=== PATIENT | female | born 1955 | race Caucasian/White ===

== ENCOUNTER 2018-09-15 12:15 | Outpatient (REF) | payer MEDICARE, SELFPAY ==
[2018-09-15 22:08] LABS: HCT 43.6 % (36.0-46.0); HGB 13.5 g/dL (12.0-15.5); Mean Corpuscular Hemoglobin 25.2 pg (27.0-33.0); Mean Corpuscular Volume 81.5 fL (80-95); Mean Platelet Volume 11.9 fL (8.0-11.0); Platelet Count 274 x1000/uL (130-400); RBC 5.35 m/cumm (4.00-5.20); RBC Distribution Width 18.2 % (11.7-14.6); White Blood Cell Count 7.17 k/cumm (4.4-10.8)
[2018-09-15 22:43] LABS: Folate 5.9 ng/mL (8.6-20.0); TSH (W/Ref FT4) 0.37 uIU/mL (0.358-3.74); Vitamin B12 381 pg/mL (193-986)
== END 2018-09-15 12:35 ==
LOC: NCHCN 12:15
PROVIDERS: PCP Family Medicine; Visit Provider Family Medicine
DX: I10 Essential (primary) hypertension (principal); G62.9 Polyneuropathy, unspecified
CPT/HCPCS: 85027; 82607; 82746; 84443

== ENCOUNTER 2019-10-20 21:06 | Outpatient (REF) | payer MEDICARE, SELFPAY ==
[2019-10-20 20:44] LABS: Hemoglobin A1C 6.1 % (3.8-5.6)
[2019-10-20 20:46] LABS: ALT 20 U/L (14-59); AST 19 U/L (15-37); Albumin 3.9 g/dL (3.4-5.0); Alkaline Phosphatase 91 U/L (46-116); Anion Gap 8.1 mmol/L (3-11); BUN 15 mg/dL (7-18); Bilirubin, Total 0.6 mg/dL (0.2-1.0); CO2 27.9 mmol/L (21.0-32.0); CREATININE 1.01 mg/dL (0.55-1.02); Calcium 9.7 mg/dL (8.5-10.1); Calculated LDL 241 mg/dL (<100); Chloride 106 mmol/L (98-107); Cholesterol 308 mg/dL (<200); Estimated GFR 55.36 (mL/min/1.73m2); Glucose 101 mg/dL (74-106); HDL Cholesterol 31 mg/dL (40-60); Potassium 5.6 mmol/L (3.5-5.1); Sodium 142 mmol/L (136-145); Total Protein 7.4 g/dL (6.4-8.2); Triglyceride 182 mg/dL (<150)
== END 2019-10-20 21:26 ==
LOC: NCHCN 21:06
PROVIDERS: PCP Family Medicine; Visit Provider Family Medicine
DX: I10 Essential (primary) hypertension (principal); R73.03 Prediabetes; G62.9 Polyneuropathy, unspecified; E78.5 Hyperlipidemia, unspecified
CPT/HCPCS: 80053; 80061; 83036

== ENCOUNTER 2019-11-02 09:53 | Outpatient (REF) | payer MEDICARE, SELFPAY ==
[2019-11-02 21:50] LABS: Potassium 4.3 mmol/L (3.5-5.1)
== END 2019-11-02 10:13 ==
LOC: NCHCN 09:53
PROVIDERS: PCP Family Medicine; Visit Provider Family Medicine
DX: E87.5 Hyperkalemia (principal)
CPT/HCPCS: 84132

== ENCOUNTER 2019-12-21 18:18 | Outpatient (REF) | payer OTHER, SELFPAY ==
[2019-12-21 21:28] LABS: ALT 19 U/L (14-59); Calculated LDL 73 mg/dL (<100); Cholesterol 140 mg/dL (<200); HDL Cholesterol 34 mg/dL (40-60); Triglyceride 166 mg/dL (<150)
== END 2019-12-21 18:38 ==
LOC: NCHCN 18:18
PROVIDERS: PCP Family Medicine; Visit Provider Family Medicine
DX: I25.10 Atherosclerotic heart disease of native coronary artery without angina pectoris (principal)
CPT/HCPCS: 80061; 84460

== ENCOUNTER 2020-03-21 12:21 | Outpatient (REF) | payer OTHER, SELFPAY ==
--- NOTE | 2020-03-21 10:00 | PAPFT_PTH ---
PAT[facility]: Mel[facility] Hodge [id number] AGE/SX: 64/F ROOM: RE03/21/[address]: Elizabeth Dsouza : 1955 BED: DIS: 03/21/2020 SPEC #: [id number] RECD: 03/22/20 12:55 STATUS: MARÍA RERicardo #: [id number] CARMEN: 03/21/20 10:[address]: Elizabeth Dsouza DEPT: [facility] Cytology RECD BY: Kalpana Crespo Tissues: 1 - CX/ENDOCX FOR PAP SMEARS Procedures: PAP THIN PREP/UVM Screening HPV DNA PROBE Comments: [id number]
== END 2020-03-21 12:41 ==
LOC: NCHCN 12:21
PROVIDERS: PCP Family Medicine; Visit Provider Family Medicine
DX: Z12.4 Encounter for screening for malignant neoplasm of cervix (principal); R87.612 Low grade squamous intraepithelial lesion on cytologic smear of cervix (LGSIL); Z11.51 Encounter for screening for human papillomavirus (HPV); R87.810 Cervical high risk human papillomavirus (HPV) DNA test positive
CPT/HCPCS: 88142; 87624

== ENCOUNTER 2020-07-28 15:56 | Outpatient (REF) | payer OTHER, SELFPAY ==
[2020-07-28 20:37] LABS: HCT 29.4 % (36.0-46.0); HGB 8.5 g/dL (11.2-15.7); MCH 23.7 pg (27.0-33.0); MCHC 28.9 % (32.0-36.0); MCV 81.9 fL (80-95); MPV 11.3 fL (8.0-11.0); Platelet Count 205 10^3/uL (130-400); RBC 3.59 10^6/uL (3.93-5.22); RDW 16.6 % (11.7-14.6); WBC 5.74 10^3/uL (4.4-10.8)
[2020-07-28 21:02] LABS: Anion Gap 6.6 mmol/L (3-11); BUN 13 mg/dL (7-18); CO2 28.4 mmol/L (21.0-32.0); CREATININE 1.4 mg/dL (0.55-1.02); Calcium 8.8 mg/dL (8.5-10.1); Chloride 108 mmol/L (98-107); Estimated GFR 37.86 (mL/min/1.73m2); Glucose 94 mg/dL (74-106); Potassium 4.3 mmol/L (3.5-5.1); Sodium 143 mmol/L (136-145); TSH 0.72 uIU/mL (0.36-3.74)
== END 2020-07-28 15:57 | disposition home or self-care (01) ==
LOC: NCHCN 15:56
PROVIDERS: PCP Family Medicine; Visit Provider Family Medicine
DX: I10 Essential (primary) hypertension (principal); I25.10 Atherosclerotic heart disease of native coronary artery without angina pectoris; R73.03 Prediabetes; E88.81 Metabolic syndrome and other insulin resistance
CPT/HCPCS: 80048; 85027; 84443

== ENCOUNTER 2020-08-04 20:03 | Outpatient (REF) | payer OTHER, SELFPAY ==
[2020-08-04 18:41] LABS: Bilirubin Negative (Negative); Blood Negative (Negative); Clarity Clear (Clear); Glucose Negative (Negative); Ketones Negative (Negative); Leukocyte Esterase Negative (Negative); Nitrite Negative (Negative); Specific Gravity 1.025 (1.005-1.025)
[2020-08-04 18:51] LABS: Iron 17 ug/dL (50-170); Total Iron Binding Capacity 348 ug/dL (250-450); Transferrin Sat 5 % (15-50)
== END 2020-08-04 20:04 | disposition home or self-care (01) ==
LOC: NCHCN 20:03
PROVIDERS: PCP Family Medicine; Visit Provider Family Medicine
DX: D50.9 Iron deficiency anemia, unspecified (principal); N18.31 Chronic kidney disease, stage 3a; R82.998 Other abnormal findings in urine
CPT/HCPCS: 81003; 81015; 83540; 83550

== ENCOUNTER 2020-08-30 17:17 | Outpatient (REF) | payer OTHER, SELFPAY ==
[2020-08-30 16:25] LABS: Iron 18 ug/dL (50-170); Total Iron Binding Capacity 391 ug/dL (250-450); Transferrin Sat 5 % (15-50)
== END 2020-08-30 17:18 | disposition home or self-care (01) ==
LOC: NCHCN 17:17
PROVIDERS: PCP Family Medicine; Visit Provider Family Medicine
DX: D50.9 Iron deficiency anemia, unspecified (principal)
CPT/HCPCS: 83540; 83550

== ENCOUNTER 2020-09-05 16:40 | Outpatient (REF) | payer OTHER, SELFPAY ==
[2020-09-06 12:09] LABS: IgA 179 mg/dL (85-499); Interpretation (See Note); Tissue Transglutaminase IgA <1.2 U/mL (<4.0)
== END 2020-09-05 16:41 | disposition home or self-care (01) ==
LOC: NCHCN 16:40
PROVIDERS: PCP Family Medicine; Visit Provider Family Medicine
DX: D50.9 Iron deficiency anemia, unspecified (principal)
CPT/HCPCS: 82784; 83516

== ENCOUNTER 2020-09-06 16:02 | Outpatient (REF) | payer OTHER, SELFPAY ==
[2020-09-12 13:07] LABS: Helicobacter pylori Ag, Feces Negative (Negative)
== END 2020-09-06 16:03 | disposition home or self-care (01) ==
LOC: NCHCN 16:02
PROVIDERS: PCP Family Medicine; Visit Provider Family Medicine
DX: D50.9 Iron deficiency anemia, unspecified (principal)
CPT/HCPCS: 87338

== ENCOUNTER 2020-10-27 20:34 | Outpatient (REF) | payer OTHER, SELFPAY ==
[2020-10-27 21:45] LABS: Iron 16 ug/dL (50-170); Total Iron Binding Capacity 359 ug/dL (250-450); Transferrin Sat 4 % (15-50)
== END 2020-10-27 20:35 | disposition home or self-care (01) ==
LOC: NCHCN 20:34
PROVIDERS: PCP Family Medicine; Visit Provider Family Medicine
DX: R53.83 Other fatigue (principal); D50.9 Iron deficiency anemia, unspecified
CPT/HCPCS: 83540; 83550

== ENCOUNTER 2020-12-07 12:37 | Outpatient (REF) | payer OTHER, SELFPAY ==
[2020-12-07 21:12] LABS: HGB 13.6 g/dL (11.2-15.7); MCH 28.8 pg (27.0-33.0); MCHC 30.2 % (32.0-36.0); MCV 95.1 fL (80-95); MPV 10.5 fL (8.0-11.0); Platelet Count 168 10^3/uL (130-400); RBC 4.73 10^6/uL (3.93-5.22); RDW 24.7 % (11.7-14.6); RDW-SD 85.3 fL; WBC 5.86 10^3/uL (4.4-10.8)
[2020-12-07 21:21] LABS: Iron 73 ug/dL (50-170); Total Iron Binding Capacity 277 ug/dL (250-450)
[2020-12-07 21:36] LABS: Ferritin 237 ng/mL (8-252)
== END 2020-12-07 12:38 | disposition home or self-care (01) ==
LOC: NCHCN 12:37
PROVIDERS: PCP Family Medicine; Visit Provider Family Medicine
DX: D50.9 Iron deficiency anemia, unspecified (principal)
CPT/HCPCS: 85027; 82728; 83540; 83550

== ENCOUNTER 2021-05-03 17:34 | Outpatient (REF) | payer MEDICARE, SELFPAY ==
[2021-05-05 11:55] LABS: COVID-19 RT-PCR UVMMC Result Negative (Negative)
== END 2021-05-03 17:35 | disposition home or self-care (01) ==
LOC: NCHCN 17:34
PROVIDERS: PCP Family Medicine; Visit Provider Registered Nurse
DX: Z20.822 Contact with and (suspected) exposure to COVID-19 (principal); J06.9 Acute upper respiratory infection, unspecified
CPT/HCPCS: U0003; U0005

== ENCOUNTER 2021-06-06 09:49 | Outpatient (REF) | payer MEDICARE, SELFPAY ==
[2021-06-06 14:52] LABS: Abs Immature Grans 0.04 10^3/uL (0.0-0.06); Absolute Basophil Count 0.03 10^3/uL (0.0-0.2); Absolute Eosinophil Count 0.14 10^3/uL (0.0-0.7); Absolute Lymphocyte Count 1.08 10^3/uL (1.2-3.4); Absolute Monocyte Count 0.32 10^3/uL (0.1-0.8); Basophils % 0.6; Eosinophils % 2.6; HCT 30.7 % (36.0-46.0); Immature Grans % 0.7; MCH 26.9 pg (27.0-33.0); MCHC 29.3 % (32.0-36.0); MCV 91.6 fL (80-95); MPV 10.9 fL (8.0-11.0); Monocytes % 5.9; Neutrophils % 70.2; Nucleated RBC 0 %; Platelet Count 189 10^3/uL (130-400); RBC 3.35 10^6/uL (3.93-5.22); RDW 15.2 % (11.7-14.6); RDW-SD 50.9 fL; Reticulocyte 2.2 % (0.5-2.4); WBC 5.41 10^3/uL (4.4-10.8)
[2021-06-06 15:00] LABS: Iron 21 ug/dL (50-170); Total Iron Binding Capacity 376 ug/dL (250-450); Transferrin Sat 6 % (15-50)
[2021-06-06 15:28] LABS: ALT 19 U/L (14-59); AST 10 U/L (15-37); Albumin 3.9 g/dL (3.4-5.0); Alkaline Phosphatase 75 U/L (46-116); Anion Gap 9.4 mmol/L (3-11); BUN 15 mg/dL (7-18); Bilirubin, Total 0.8 mg/dL (0.2-1.0); CO2 25.6 mmol/L (21.0-32.0); CREATININE 1.4 mg/dL (0.55-1.02); Calcium 8.9 mg/dL (8.5-10.1); Chloride 107 mmol/L (98-107); Estimated GFR 37.86 (mL/min/1.73m2); Ferritin 7 ng/mL (8-252); Glucose 106 mg/dL (74-106); Potassium 4.2 mmol/L (3.5-5.1); Sodium 142 mmol/L (136-145); Total Protein 6.8 g/dL (6.4-8.2)
[2021-06-06 15:38] LABS: Diff Comment Diff Reviewed
[2021-06-06 15:39] LABS: Anisocytosis 2+
== END 2021-06-06 09:50 | disposition home or self-care (01) ==
LOC: NCHCN 09:49
PROVIDERS: PCP Family Medicine; Visit Provider Family Medicine
DX: D50.9 Iron deficiency anemia, unspecified (principal); I73.9 Peripheral vascular disease, unspecified
CPT/HCPCS: 80053; 82728; 83540; 83550; 85025; 85045

== ENCOUNTER 2021-07-17 11:06 | Outpatient (REF) | payer MEDICARE, SELFPAY ==
[2021-07-17 14:25] LABS: HCT 38.1 % (36.0-46.0); MCH 25.8 pg (27.0-33.0); MCHC 28.9 % (32.0-36.0); MCV 89 fL (80-95); MPV 10.9 fL (8.0-11.0); Platelet Count 255 10^3/uL (130-400); RBC 4.26 10^6/uL (3.93-5.22); RDW 19.3 % (11.7-14.6); RDW-SD 63.2 fL; WBC 5.31 10^3/uL (4.4-10.8)
[2021-07-17 14:36] LABS: Iron 24 ug/dL (50-170); Total Iron Binding Capacity 381 ug/dL (250-450); Transferrin Sat 6 % (15-50)
== END 2021-07-17 11:07 | disposition home or self-care (01) ==
LOC: NCHCN 11:06
PROVIDERS: PCP Family Medicine; Visit Provider Family Medicine
DX: D64.9 Anemia, unspecified (principal)
CPT/HCPCS: 85027; 83540; 83550

== ENCOUNTER 2021-12-31 18:33 | Outpatient (REF) | payer MEDICARE, SELFPAY ==
[2021-12-31 15:14] LABS: HCT 29.8 % (36.0-46.0); HGB 8.4 g/dL (11.2-15.7); MCH 23.5 pg (27.0-33.0); MCHC 28.2 % (32.0-36.0); MCV 83 fL (80-95); Platelet Count 198 10^3/uL (130-400); RBC 3.58 10^6/uL (3.93-5.22); RDW 18.2 % (11.7-14.6); RDW-SD 53.7 fL; WBC 5.56 10^3/uL (4.4-10.8)
[2021-12-31 15:25] LABS: Anion Gap 7.3 mmol/L (3-11); BUN 13 mg/dL (7-18); CO2 25.7 mmol/L (21.0-32.0); CREATININE 1.6 mg/dL (0.55-1.02); Calcium 9.2 mg/dL (8.5-10.1); Chloride 107 mmol/L (98-107); Estimated GFR 35.57 (mL/min/1.73m2); Glucose 97 mg/dL (74-106); Potassium 4.2 mmol/L (3.5-5.1); Sodium 140 mmol/L (136-145)
[2021-12-31 16:29] LABS: Iron 22 ug/dL (50-170); Total Iron Binding Capacity 405 ug/dL (250-450); Transferrin Sat 5 % (15-50)
== END 2021-12-31 18:34 | disposition home or self-care (01) ==
LOC: NCHCN 18:33
PROVIDERS: PCP Family Medicine; Visit Provider Family Medicine
DX: D64.9 Anemia, unspecified (principal); R17 Unspecified jaundice
CPT/HCPCS: 80048; 85027; 83540; 83550

== ENCOUNTER 2022-02-22 14:39 | Outpatient (REF) | payer MEDICARE, SELFPAY ==
[2022-02-22 21:15] LABS: HCT 40.5 % (36.0-46.0); HGB 12.3 g/dL (11.2-15.7); MCH 29.5 pg (27.0-33.0); MCHC 30.4 % (32.0-36.0); MCV 97 fL (80-95); MPV 10.8 fL (8.0-11.0); Platelet Count 186 10^3/uL (130-400); RBC 4.17 10^6/uL (3.93-5.22); RDW 22.1 % (11.7-14.6); RDW-SD 78.3 fL; WBC 5.65 10^3/uL (4.4-10.8)
[2022-02-22 21:24] LABS: Iron 39 ug/dL (50-170); Total Iron Binding Capacity 349 ug/dL (250-450); Transferrin Sat 11 % (15-50)
== END 2022-02-22 14:40 | disposition home or self-care (01) ==
LOC: NCHCN 14:39
PROVIDERS: PCP Family Medicine; Visit Provider Family Medicine
DX: D50.9 Iron deficiency anemia, unspecified (principal)
CPT/HCPCS: 85027; 83540; 83550

== ENCOUNTER 2022-04-26 10:36 | Outpatient (REF) | payer MEDICARE, SELFPAY ==
--- NOTE | 2022-04-26 08:45 | PAPFT_PTH ---
PATIENT: Melodie Hodge LOC: [facility]#:[id number] AGE/SX: 66/F ROOM: RE04/26/[address]: Elizabeth Dsouza : 1955 BED: DIS: 04/26/2022 SPEC #: [id number] RECD: 04/26/22 13:50 STATUS: MARÍA REQ #: [id number] CARMEN: 04/26/22 08:[address]: Elizabeth Dsouza DEPT: [facility] Cytology RECD BY: Kalpana Crespo Tissues: 1 - CX/ENDOCX FOR PAP SMEARS Procedures: PAP THIN PREP/UVM Screening HPV DNA PROBE Comments: [id number] (HPV 16 & 18/45)
== END 2022-04-26 10:37 | disposition home or self-care (01) ==
LOC: NCHCN 10:36
PROVIDERS: PCP Family Medicine; Visit Provider Family Medicine
DX: Z12.4 Encounter for screening for malignant neoplasm of cervix (principal); R87.610 Atypical squamous cells of undetermined significance on cytologic smear of cervix (ASC-US); Z11.51 Encounter for screening for human papillomavirus (HPV)
CPT/HCPCS: 88142; 87624

== ENCOUNTER 2022-05-29 13:03 | Outpatient (REF) | payer MEDICARE, SELFPAY ==
[2022-05-30 13:31] LABS: Albumin 58.9 % (55.8-66.1); Albumin g/dL 4.4 g/dL (3.6-5.2); Total Protein 7.5 g/dL (6.3-8.2)
[2022-05-30 15:47] LABS: Albumin, Urine % 32.9 %; Albumin, Urine mg/dL 14 mg/dL; Globulins, Urine % 67.1 %; Globulins, Urine mg/dL 28 mg/dL; Immunotyping, Urine (See Note); Total Protein Urine 42 mg/dL (See Note)
== END 2022-05-29 13:04 | disposition home or self-care (01) ==
LOC: NCHCN 13:03
PROVIDERS: PCP Family Medicine; Visit Provider Family Medicine
DX: R93.7 Abnormal findings on diagnostic imaging of other parts of musculoskeletal system (principal); R91.8 Other nonspecific abnormal finding of lung field
CPT/HCPCS: 84156; 84166; 86335; 84165

== ENCOUNTER 2022-06-24 12:25 | Outpatient (REF) | payer MEDICARE, SELFPAY ==
[2022-06-24 14:27] LABS: HCT 47.9 % (36.0-46.0); HGB 15.8 g/dL (11.2-15.7); MCV 97 fL (80-95); MPV 11.4 fL (8.0-11.0); Platelet Count 181 10^3/uL (130-400); RBC 4.93 10^6/uL (3.93-5.22); RDW 12.8 % (11.7-14.6); RDW-SD 45.9 fL; WBC 5.72 10^3/uL (4.4-10.8)
[2022-06-24 15:12] LABS: ALT 23 U/L (14-59); AST 18 U/L (15-37); Alkaline Phosphatase 73 U/L (46-116); Anion Gap 6.5 mmol/L (3-11); BUN 15 mg/dL (7-18); Bilirubin, Total 0.9 mg/dL (0.2-1.0); CO2 30.5 mmol/L (21.0-32.0); CREATININE 1.4 mg/dL (0.55-1.02); Chloride 105 mmol/L (98-107); Estimated GFR 41.75 (mL/min/1.73m2); Ferritin 34 ng/mL (8-252); Glucose 96 mg/dL (74-106); Potassium 5.2 mmol/L (3.5-5.1); Sodium 142 mmol/L (136-145); Total Protein 7.9 g/dL (6.4-8.2)
== END 2022-06-24 12:26 | disposition home or self-care (01) ==
LOC: NCHCN 12:25
PROVIDERS: PCP Family Medicine; Visit Provider Family Medicine
DX: D50.9 Iron deficiency anemia, unspecified (principal); I10 Essential (primary) hypertension; R91.8 Other nonspecific abnormal finding of lung field
CPT/HCPCS: 80053; 85027; 82728

== ENCOUNTER 2023-04-30 18:29 | Outpatient (REF) | payer MEDICARE, SELFPAY ==
--- OUTSIDE RECORDS SUMMARY | 2023-04-30 18:35 | XMS_ITS | CCD ---
Author Name Unknown Address [address] [place] [address] [id number] Organization Unknown Address [address] [place] [address] [phone] Care Team Providers Care Service Bar Cashier Name Role Phone TONIA DONG Hubert Attending Physician [phone] Vital Signs Unknown or Not Available. Allergies Allergy Code Allergy Type Reaction Status MORPHINE 7052 Drug allergy Vomiting Active BAND-AID BRAND ADHESIVE BANDAGES 6984591 Drug allergy B REAK OUT Active LATEX 5547608 Allergy to substance Acti ve Procedures Unknown or Not Available. History of Immunizations Immunization Code Date COVID-19, mRNA, LNP-S, PF, 100 mcg/0.5mL dose or 50 mcg/0.25mL dose 06/21/2020 COVID-19, mRNA, LNP-S, PF, 100 mcg/0.5mL dose or 50 mcg/0.25mL dose 07/19/2020 Problems Unknown or Not Available. Results Unknown or Not Available. Active Medications Unknown or Not Available. Medications Administered During Visit Unknown or Not Available. Encounters Encounter Diagnosis Diagnosis Code Start Date Osteolysis 729875301 06/06/2022 Social History Smoking Status Code Start Date End Date Current every day smoker 512080297 Patient Decision Aids Unknown or Not Available. Discharge Instructions You were admitted to [facility] on 06/06/2022 08:51 with a principal diagnosis of Osteolysis, unspecified site You were discharged from [facility] on 06/06/2022 08:51 Should you have any questions prior to discharge, please contact a member of your healthcare team. If you have left the hospital and have any questions, please contact your primary care physician. Chief Complaint and Reason For Visit Chief Complaint Date of Onset LYTIC BONE LESIONS Function Status Unknown or Not Available. Plan of Care Unknown or Not Available. Referral/Transition of Care Unknown or Not Available.
--- OUTSIDE RECORDS SUMMARY | 2023-04-30 18:35 | XMS_ITS | CCD ---
Author Name Unknown Address [address] [place] [address] [id number] Organization Unknown Address [address] [place] [address] [phone] Care Team Providers Care Real Estate Closer Name Role Phone TONIA DONG Hubert Attending Physician [phone] Vital Signs Unknown or Not Available. Allergies Allergy Code Allergy Type Reaction Status MORPHINE 7052 Drug allergy Vomiting Active BAND-AID BRAND ADHESIVE BANDAGES 2060792 Drug allergy B REAK OUT Active LATEX 5217866 Allergy to substance Acti ve Procedures Unknown [...] Encounters Encounter Diagnosis Diagnosis Code Start Date Encounter for screening for malignant neoplasm of respiratory organs Z122 05/23/2022 Social History Smoking Status Code Start Date End Date Current every day smoker [id number] Patient Decision Aids Unknown or Not Available. Discharge Instructions You were admitted to [facility] on 05/23/2022 08:44 with a principal diagnosis of Encounter for screening for malignant neoplasm of respiratory organs You were discharged from [facility] on 05/23/2022 08:44 Should you have any questions prior to discharge, please contact a member of your healthcare team. If you have left the hospital and have any questions, please contact your primary care physician. Chief Complaint and Reason For Visit Chief Complaint Date of Onset SMOKER Function Status Unknown or Not Available. Plan of Care Unknown or Not Available. Referral/Transition of Care Unknown or Not Available.
--- OUTSIDE RECORDS SUMMARY | 2023-04-30 18:36 | XMS_ITS | CCD ---
Author Name Unknown Address [address] [place] [address] [phone] Organization Unknown Address [address] [place] [address] [id number] Care Team Providers Care Supervisor Reactor Fueling Name Role Phone LETITIATONIA Hubert Attending Physician [phone] Vital Signs Unknown or Not Available. Allergies Allergy Code Allergy Type Reaction Status MORPHINE 7052 Drug allergy Vomiting Active BAND-AID BRAND ADHESIVE BANDAGES 6615690 Drug allergy B REAK OUT Active LATEX 6258419 Allergy to substance Acti ve Procedures Unknown [...] Encounters Encounter Diagnosis Diagnosis Code Start Date Unilateral primary osteoarthritis, right knee M1 711 05/22/2022 Social History Smoking Status Code Start Date End Date Current every day smoker 764349168 Patient Decision Aids Unknown or Not Available. Discharge Instructions You were admitted to [facility] on 05/22/2022 12:55 with a principal diagnosis of Unilateral primary osteoarthritis, right knee You were discharged from [facility] on 05/22/2022 12:55 Should you have any questions prior to discharge, please contact a member of your healthcare team. If you have left the hospital and have any questions, please contact your primary care physician. Chief Complaint and Reason For Visit Chief Complaint Date of Onset MENOPAUSAL Function Status Unknown or Not Available. Plan of Care Unknown or Not Available. Referral/Transition of Care Unknown or Not Available.
--- OUTSIDE RECORDS SUMMARY | 2023-04-30 18:36 | XMS_ITS | CCD ---
Author Name Unknown Address [address] [place] [address] [id number] Organization Unknown Address [address] [place] [address] [phone] Care Team Providers Care Motorcycle Sales Associate Name Role Phone KYLE BRANDT Attending Physician [phone] Vital Signs Unknown or Not Available. Allergies Allergy Code Allergy Type Reaction Status MORPHINE 7052 Drug allergy Vomiting Active BAND-AID BRAND ADHESIVE BANDAGES 8588188 Drug allergy B REAK OUT Active LATEX 2823100 Allergy to substance Acti ve Procedures Unknown or Not Available. History of Immunizations Immunization Code Date COVID-19, mRNA, LNP-S, PF, 100 mcg/0.5mL dose or 50 mcg/0.25mL dose 06/21/2020 COVID-19, mRNA, LNP-S, PF, 100 mcg/0.5mL dose or 50 mcg/0.25mL dose 07/19/2020 Problems Unknown or Not Available. Results BUN/CREATININE RATIO FOR RAD IOLOGY* - Collect Date/Time: 12/27/2021 11:46 Test Name Code Test Result Test Units Test Ref Rang e BUN 3094-0 13 mg/dL L=6 H=25 CREATININE 2160-0 1.59 mg/dL L=0.51 H=0.95 BUN/CREATININE RATIO 3097-3 8.2 AGE 66 years eGFR (non-Afr.Amer) 48186-0 33 mL/min eGFR (Afr-Ugandan) 96772-9 39 mL/min Active Medications Unknown or Not Available. Medications Administered During Visit Unknown or Not Available. Encounters Encounter Diagnosis Diagnosis Code Start Date Peripheral vascular disease [id number] 12/15 Social History Smoking Status Code Start Date End Date Current every day smoker 531181632 Patient Decision Aids Unknown or Not Available. Discharge Instructions You were admitted to [facility] on 12/27/2021 10:58 with a principal diagnosis of Peripheral vascular disease, unspecified You had the following tests done:BUN/CREATININE RATIO FOR RADIOLOGY* You were discharged from [facility] on 12/27/2021 10:58 Should you have any questions prior to discharge, please contact a member of your healthcare team. If you have left the hospital and have any questions, please contact your primary care physician. Chief Complaint and Reason For Visit Chief Complaint Date of Onset BILAT LEG PAIN W EXERCISE Function Status Unknown or Not Available. Plan of Care Unknown or Not Available. Referral/Transition of Care Unknown or Not Available.
--- OUTSIDE RECORDS SUMMARY | 2023-04-30 18:36 | XMS_ITS | CCD ---
Author Name Unknown Address [address] [place] [address] [phone] Organization Unknown Address [address] [place] [address] [phone] Care Team Providers Care Environmental Scientist Name Role Phone LIANG BURR Joelle Attending Physician [phone] Vital Signs Unknown or Not Available. Allergies Allergy Code Allergy Type Reaction Status MORPHINE 7052 Drug allergy Vomiting Active BAND-AID BRAND ADHESIVE BANDAGES 3988628 Drug allergy B REAK OUT Active LATEX 8934959 Allergy to substance Acti ve Procedures Unknown or Not Available. History of Immunizations Immunization Code Date COVID-19, mRNA, LNP-S, PF, 100 mcg/0.5mL dose or 50 mcg/0.25mL dose 06/21/2020 COVID-19, mRNA, LNP-S, PF, 100 mcg/0.5mL dose or 50 mcg/0.25mL dose 07/19/2020 Problems Unknown or Not Available. Results Unknown or Not Available. Active Medications Medication Code Dose Units Frequency Route Modificatio n Start Date/Time ACETAMINOPHEN TABLET: 325MG 284517 650 MG PRN X1 PO 04/11/2022 08:00 DiphenhydrAMINE CAP: 25MG 2368650 25 MG PRN X1 PO 04/11/2022 08:00 Medications Administered During Visit Medication Dose Units Frequency Route Date/Time of Last Dose SOD FERRIC GLUCONATE INJ SDV 62.5MG/5ML 250 MG X1 IVPB 04/11/2022 08:5 0 ACETAMINOPHEN TABLET: 325MG 650 MG PRN X1 PO 04/11/2022 08:31 DiphenhydrAMINE CAP: 25MG 25 MG PRN X1 PO 04/11/2022 08:31 Encounters Encounter Diagnosis Diagnosis Code Start Date Iron deficiency anemia, unspecified D509 04/11/2022 Social History Smoking Status Code Start Date End Date Current every day smoker 578265592 Patient Decision Aids Unknown or Not Available. Discharge Instructions You were admitted to [facility] on 04/11/2022 08:23 with a principal diagnosis of Iron deficiency anemia, unspecified You were discharged from [facility] Should you have any questions prior to discharge, please contact a member of your healthcare team. If you have left the hospital and have any questions, please contact your primary care physician. Chief Complaint and Reason For Visit Unknown or Not Available. Function Status Unknown or Not Available. Plan of Care Unknown or Not Available. Referral/Transition of Care Unknown or Not Available.
--- OUTSIDE RECORDS SUMMARY | 2023-04-30 18:36 | XMS_ITS | CCD ---
Author Name Unknown Address [address] [place] [address] [phone] Organization Unknown Address [address] [place] [address] [id number] Care Team Providers Care Certified Prosthetist Name Role Phone TONIA DONG Hubert Attending Physician [phone] Vital Signs Unknown or Not Available. Allergies Allergy Code Allergy Type Reaction Status MORPHINE 7052 Drug allergy Vomiting Active BAND-AID BRAND ADHESIVE BANDAGES 0645483 Drug allergy B REAK OUT Active LATEX 5099865 Allergy to substance Acti ve Procedures Unknown [...] Encounters Encounter Diagnosis Diagnosis Code Start Date Canceled operative procedure 13644736 Social History Smoking Status Code Start Date End Date Current every day smoker 981320351 Patient Decision Aids Unknown or Not Available. Discharge Instructions You were admitted to [facility] on 04/16/2022 12:05 with a principal diagnosis of Procedure and treatment not carried out, unspecified reason You were discharged from [facility] on 04/16/2022 12:05 Should you have any questions prior to discharge, please contact a member of your healthcare team. If you have left the hospital and have any questions, please contact your primary care physician. Chief Complaint and Reason For Visit Chief Complaint Date of Onset LDCT Function Status Unknown or Not Available. Plan of Care Unknown or Not Available. Referral/Transition of Care Unknown or Not Available.
--- OUTSIDE RECORDS SUMMARY | 2023-04-30 18:36 | XMS_ITS | CCD ---
Author Name Unknown Address [address] [place] [address] [id number] Organization Unknown Address [address] [place] [address] [phone] Care Team Providers Care Computer Sciences Professor Name Role Phone LIANG BURR Joelle Attending Physician [phone] Vital Signs Unknown or Not Available. Allergies Allergy Code Allergy Type Reaction Status MORPHINE 7052 Drug allergy Vomiting Active BAND-AID BRAND ADHESIVE BANDAGES 3592860 Drug allergy B REAK OUT Active LATEX 8751686 Allergy to substance Acti ve Procedures Unknown or Not Available. History of Immunizations Immunization Code Date COVID-19, mRNA, LNP-S, PF, 100 mcg/0.5mL dose or 50 mcg/0.25mL dose 06/21/2020 COVID-19, mRNA, LNP-S, PF, 100 mcg/0.5mL dose or 50 mcg/0.25mL dose 07/19/2020 Problems Unknown or Not Available. Results Unknown or Not Available. Active Medications Medications Administered During Visit Unknown or Not Available. Encounters Encounter Diagnosis Diagnosis Code Start Date Iron deficiency anemia, unspecified D509 07/31/2021 Social History Smoking Status Code Start Date End Date Current every day smoker 390705950 Patient Decision Aids Unknown or Not Available. Discharge Instructions You were admitted to [facility] on 07/31/2021 08:45 with a principal diagnosis of Iron deficiency anemia, unspecified You were discharged from [facility] on 07/31/2021 08:45 Should you have any questions prior to [...]
--- OUTSIDE RECORDS SUMMARY | 2023-04-30 18:36 | XMS_ITS | CCD ---
Author Name Unknown Address [address] [place] [address] [id number] Organization Unknown Address [address] [place] [address] [phone] Care Team Providers Care Message Broker Developer Name Role Phone KLYE BRANDT Attending Physician [phone] KYLE BRANDT Rounding (Secondary) Physician [phone] Vital Signs Unknown or Not Available. Allergies Allergy Code Allergy Type Reaction Status MORPHINE 7052 Drug allergy Vomiting Active BAND-AID BRAND ADHESIVE BANDAGES 6120066 Drug allergy B REAK OUT Active LATEX 0518206 Allergy to substance Acti ve Procedures Unknown [...] During Visit Unknown or Not Available. Encounters Unknown or Not Available. Social History Smoking Status Code Start Date End Date Current every day smoker 376600803 Patient Decision Aids Unknown or Not Available. Discharge Instructions You were admitted to You were discharged from Should you have any questions prior to [...]
--- OUTSIDE RECORDS SUMMARY | 2023-04-30 18:36 | XMS_ITS | CCD ---
Author Name Unknown Address [address] [place] [address] [phone] Organization Unknown Address [address] [place] [address] [phone] Care Team Providers Care Real Estate Internship Name Role Phone LIANG BURR Joelle Attending Physician [phone] Vital Signs Unknown or Not Available. Allergies Allergy Code Allergy Type Reaction Status MORPHINE 7052 Drug allergy Vomiting Active BAND-AID BRAND ADHESIVE BANDAGES 1558074 Drug allergy B REAK OUT Active LATEX 2505883 Allergy to substance Acti ve Procedures Unknown [...] Start Date Iron deficiency anemia, unspecified D509 06/26/2021 Social History Smoking Status Code Start Date End Date Current every day smoker 964195750 Patient Decision Aids Unknown or Not Available. Discharge Instructions You were admitted to [facility] on 06/26/2021 13:35 with a principal diagnosis of Iron deficiency anemia, unspecified You were discharged from [facility] on 06/26/2021 13:35 Should you have any questions prior to [...]
--- OUTSIDE RECORDS SUMMARY | 2023-04-30 18:36 | XMS_ITS | CCD ---
Author Name Unknown Address [address] [place] [address] [phone] Organization Unknown Address [address] [place] [address] [id number] Care Team Providers Care Advertising Agency Manager Name Role Phone LIANG BURR Joelle Attending Physician [phone] Vital Signs Unknown or Not Available. Allergies Allergy Code Allergy Type Reaction Status MORPHINE 7052 Drug allergy Vomiting Active BAND-AID BRAND ADHESIVE BANDAGES 4169390 Drug allergy B REAK OUT Active LATEX 7655995 Allergy to substance Acti ve Procedures Unknown [...] Start Date Iron deficiency anemia, unspecified D509 01/17/2022 Social History Smoking Status Code Start Date End Date Current every day smoker 913114248 Patient Decision Aids Unknown or Not Available. Discharge Instructions You were admitted to [facility] on 01/17/2022 08:39 with a principal diagnosis of Iron deficiency anemia, unspecified You were discharged from [facility] on 01/17/2022 08:40 Should you have any questions prior to [...]
--- OUTSIDE RECORDS SUMMARY | 2023-04-30 18:36 | XMS_ITS | CCD ---
Author Name Unknown Address [address] [place] [address] [id number] Organization Unknown Address [address] [place] [address] [phone] Care Team Providers Care Account Solutions Analyst Name Role Phone KYLE BRANDT Attending Physician [phone] KYLE BRANDT Rounding (Secondary) Physician [phone] Vital Signs Unknown or Not Available. Allergies Allergy Code Allergy Type Reaction Status MORPHINE 7052 Drug allergy Vomiting Active BAND-AID BRAND ADHESIVE BANDAGES 8684937 Drug allergy B REAK OUT Active LATEX 5778253 Allergy to substance Acti ve Procedures Unknown or Not Available. History of Immunizations Immunization Code Date COVID-19, mRNA, LNP-S, PF, 100 mcg/0.5mL dose or 50 mcg/0.25mL dose 06/21/2020 COVID-19, mRNA, LNP-S, PF, 100 mcg/0.5mL dose or 50 mcg/0.25mL dose 07/19/2020 Problems Unknown or Not Available. Results COMPREHENSIVE METABOLIC PANE L (CMP) - Collect Date/Time: 12/25/2021 09:53 Test Name Code Test Result Test Units Test Ref Rang e GLUCOSE 2345-7 102 mg/dL L=70 H=116 BUN 3094-0 13 mg/dL L=6 H=25 CREATININE 2160-0 1.59 mg/dL L=0.51 H=0.95 SODIUM SERUM 2951-2 139 mmol/L L=136 H=145 POTASSIUM SERUM 2823-3 3.5 mmol/L L=3.4 H=5 .2 CHLORIDE SERUM 2075-0 106 mmol/L L=96 H=110 CARBON DIOXIDE (CO2) 2028-9 25 mmol/L L=22 H=34 ANION GAP 27415-9 7.8 mmol/L CALCIUM SERUM 56837-6 9.0 mg/dL L=8.2 H=10. 2 BILIRUBIN TOTAL 1975-2 0.9 mg/dL L=0.0 H=1 .3 ALK. PHOS. 6768-6 58 U/L L=46 H=116 SGOT (AST) 1920-8 9 U/L L=15 H=37 SGPT (ALT) 1742-6 17 U/L L=12 H=78 TOTAL PROTEIN 2885-2 7.1 gm/dL L=6.0 H=8.0 ALBUMIN 1751-7 3.5 gm/dL L=3.4 H=5.0 AGE 66 years eGFR (non-Afr.Amer.) 65007-2 33 mL/min eGFR (Afr-Ivorian) 28606-4 39 mL/min FERRITIN - Collect Date/Time : 12/25/2021 09:53 Test Name Code Test Result Test Units Test Ref Rang e FERRITIN 2276-4 6 ng/mL L=8 H=388 TSH THYROID STIMULATING HORM ONE* - Collect Date/Time: 12/25/2021 09:53 Test Name Code Test Result Test Units Test Ref Rang e TSH 3014-8 1.411 uIU/mL L=0.360 H=3.74 0 CBC W/ DIFFERENTIAL* - Colle ct Date/Time: 12/25/2021 09:53 Test Name Code Test Result Test Units Test Ref Rang e WBC 6690-2 5.01 th/cmm L=5.00 H=10.00 NEUT % 69.0 % L=40.0 H=80.0 LYMPH % 20.4 % L=10.0 H=50.0 MONO % 43674-5 6.8 % L=2.0 H=12.0 EOS % 3.0 % L=0.0 H=8.0 BASO % 0.6 % L=0.0 H=3.0 IG % 2514-8 0.2 % L=0.0 H=1.1 NRBC % 93639-1 0.0 % L=0.0 H=0.0 NEUT abs count 751-8 3.5 th/cmm L=1.6 H=8. 4 LYMPH abs count 731-0 1.0 th/cmm L=1.5 H=4 .0 MONO abs count 742-7 0.3 th/cmm L=0.2 H=1. 0 EOS abs count 711-2 0.2 th/cmm L=0.0 H=0.5 BASO abs count 704-7 0.0 th/cmm L=0.0 H=0. 2 IG abs count 69360-1 0.0 th/cmm L=0.0 H=0.1 NRBC abs count 90455-1 0.0 mil/cmm L=0.0 H=0. 0 RBC 789-8 3.26 mil/cmm L=3.90 H=5.40 HEMOGLOBIN 718-7 7.3 gm/dL L=12.0 H=16.0 HEMATOCRIT 4544-3 27 % L=37 H=47 MCV 787-2 82 fL L=82 H=92 MCH 785-6 22.4 pg L=27.0 H=31.0 MCHC 786-4 27.3 % L=32.0 H=36.0 RDW-SD 788-0 51.1 fL L=39.0 H=49.0 PLATELET COUNT 777-3 179 th/cmm L=150 H=45 0 Anisocytosis 1+ N/A Hypochromia 1+ N/A SED RATE* - Collect Date/Shahriar e: 12/25/2021 09:53 Test Name Code Test Result Test Units Test Ref Rang e SED. RATE 4537-7 18 mm/hr L=0 H=30 Active Medications Unknown or Not Available. Medications Administered During Visit Unknown or Not Available. Encounters Encounter Diagnosis Diagnosis Code Start Date Iron deficiency anemia 13642269 2 Social History Smoking Status Code Start Date End Date Current every day smoker 994201124 Patient Decision Aids Unknown or Not Available. Discharge Instructions You were admitted to [facility] on 12/25/2021 06:54 with a principal diagnosis of Other iron deficiency anemias You had the following tests done:CBC W/ DIFFERENTIAL*COMPREHENSIVE METABOLIC PANEL (CMP)FERRITINSED RATE*TSH THYROID STIMULATING HORMONE* You were discharged from [facility] on 12/25/2021 00:00 Should you have any questions prior to [...]
--- OUTSIDE RECORDS SUMMARY | 2023-04-30 18:37 | XMS_ITS | CCD ---
Author Name Unknown Address [address] [place] [address] [phone] Organization Unknown Address [address] [place], [place] [phone] Care Team Providers Care Applications Development Consultant Name Role Phone APOORVA JOHNSON, DANIEL Blanton Attending Physician [phone] Vital Signs Vital Sign Value Unit Date/Time Recent/Initial ? BMI (Body Mass Index) 32.85 kg/m^2 10/26/2020 08: 41 Initial VS Weight Measured 179.6 lbs 10/26/2020 08:41 Ini tial VS Height 62 in 10/26/2020 08:41 Initial VS BSA (Body Surface Area) 1.89 m^2 10/26/2020 0 8:41 Initial VS BP Systolic 157 mmHg 11/01/2020 08:28 Initial VS BP Diastolic 74 mmHg 11/01/2020 08:28 Initia l VS Respiratory Rate 16 bpm 11/01/2020 08:28 In itial VS Heart Rate 77 bpm 11/01/2020 08:28 Initial VS O2 % BldC Oximetry 96 % 11/01/2020 08:28 Initial VS Body Temperature 36.1 degrees 11/01/2020 08:28 In itial VS Allergies Allergy Code Allergy Type Reaction Status MORPHINE 7052 Drug allergy Vomiting Active BAND-AID BRAND ADHESIVE BANDAGES 9205916 Drug allergy B REAK OUT Active LATEX 3262855 Allergy to substance Acti ve Procedures Procedure Code Procedure Type Date Colposcopy, Cervix w/Upper A djacent Vagina; w/Loop Electrode Biopsy(s), Cervix 50149 CPT 11/01/2020 History of Immunizations Immunization Code Date COVID-19, mRNA, LNP-S, PF, 100 mcg/0.5mL dose or 50 mcg/0.25mL dose 207 06/21/2020 COVID-19, mRNA, LNP-S, PF, 100 mcg/0.5mL dose or 50 mcg/0.25mL dose 207 07/19/2020 Problems Unknown or Not Available. Results Unknown or Not Available. Active Medications Medications Administered During Visit Medication Dose Units Frequency Route Date/Time of Last Dose LACTATED RINGERS 1000ML IV X1 11/01/2020 06:53 MIDAZOLAM INJ SDV: 2MG/2ML 2 MG X1 IVP 11/01/2020 07:25 KETOROLAC INJ SDV: 30MG/1ML 30 MG PRN Q6H IV P 11/01/2020 08:22 Encounters Encounter Diagnosis Diagnosis Code Start Date Moderate cervical dysplasia N871 10/15 Social History Smoking Status Code Start Date End Date Current every day smoker 505206697 Patient Decision Aids Unknown or Not Available. Discharge Instructions You were admitted to [facility] on 11/01/2020 06:26 with a principal diagnosis of Moderate cervical dysplasia You had the following procedures done:Colposcopy, Cervix w/Upper Adjacent Vagina; w/Loop Electrode Biopsy(s), Cervix You were discharged from [facility] on 11/01/2020 08:57 Should you have any questions prior to discharge, please contact a member of your healthcare team. If you have left the hospital and have any questions, please contact your primary care physician. Chief Complaint and Reason For Visit Chief Complaint Date of Onset COLPOSCOPY Function Status Unknown or Not Available. Plan of Care Unknown or Not Available. Referral/Transition of Care Unknown or Not Available.
--- OUTSIDE RECORDS SUMMARY | 2023-04-30 18:37 | XMS_ITS | CCD ---
Author Name Unknown Address [address] [place] [address] [phone] Organization Unknown Address [address] [place] [address] [phone] Care Team Providers Care Delicatessen Department Manager Name Role Phone TONIA DONG Hubert Attending Physician [phone] Vital Signs Unknown or Not Available. Allergies Allergy Code Allergy Type Reaction Status MORPHINE 7052 Drug allergy Vomiting Active BAND-AID BRAND ADHESIVE BANDAGES 4171641 Drug allergy B REAK OUT Active LATEX 9192112 Allergy to substance Acti ve Procedures Unknown [...] Encounters Encounter Diagnosis Diagnosis Code Start Date Degeneration of lumbar intervertebral disc 07917 006 03/12/2023 Social History Smoking Status Code Start Date End Date Current every day smoker [id number] Patient Decision Aids Unknown or Not Available. Discharge Instructions You were admitted to [facility] on 03/12/2023 07:51 with a principal diagnosis of Lumbar disc degenerative disease You were discharged from [facility] on 03/12/2023 07:51 Should you have any questions prior to discharge, please contact a member of your healthcare team. If you have left the hospital and have any questions, please contact your primary care physician. Chief Complaint and Reason For Visit Chief Complaint Date of Onset RADICULOPATHY Function Status Unknown or Not Available. Plan of Care Unknown or Not Available. Referral/Transition of Care Unknown or Not Available.
--- OUTSIDE RECORDS SUMMARY | 2023-04-30 18:37 | XMS_ITS | CCD ---
Author Name Unknown Address [address] [place] [address] [phone] Organization Unknown Address [address] [place] [address] [phone] Care Team Providers Care Folder Tier Name Role Phone APOORVA JOHNSON, DANIEL Blanton Attending Physician [phone] Vital Signs Unknown or Not Available. Allergies Allergy Code Allergy Type Reaction Status MORPHINE 7052 Drug allergy Vomiting Active BAND-AID BRAND ADHESIVE BANDAGES 1009488 Drug allergy B REAK OUT Active Procedures Unknown or Not Available. History of Immunizations Immunization Code Date COVID-19, mRNA, LNP-S, PF, 100 mcg/0.5mL dose or 50 mcg/0.25mL dose 06/21/2020 COVID-19, mRNA, LNP-S, PF, 100 mcg/0.5mL dose or 50 mcg/0.25mL dose 07/19/2020 Problems Unknown or Not Available. Results CBC W/ DIFFERENTIAL - Collec t Date/Time: 10/17/2020 12:31 Test Name Code Test Result Test Units Test Ref Rang e WBC 6690-2 6.63 th/cmm L=5.00 H=10.00 NEUT % 69.5 % L=40.0 H=80.0 LYMPH % 21.1 % L=10.0 H=50.0 MONO % 74245-9 5.4 % L=2.0 H=12.0 EOS % 3.0 % L=0.0 H=8.0 BASO % 0.8 % L=0.0 H=3.0 IG % 2514-8 0.2 % L=0.0 H=1.1 NRBC % 60686-7 0.0 % L=0.0 H=0.0 NEUT abs count 751-8 4.6 th/cmm L=1.6 H=8. 4 LYMPH abs count 731-0 1.4 th/cmm L=1.5 H=4 .0 MONO abs count 742-7 0.4 th/cmm L=0.2 H=1. 0 EOS abs count 711-2 0.2 th/cmm L=0.0 H=0.5 BASO abs count 704-7 0.1 th/cmm L=0.0 H=0. 2 IG abs count 85591-2 0.0 th/cmm L=0.0 H=0.1 NRBC abs count 74244-6 0.0 mil/cmm L=0.0 H=0. 0 RBC 789-8 4.18 mil/cmm L=3.90 H=5.40 HEMOGLOBIN 718-7 10.7 gm/dL L=12.0 H=16.0 HEMATOCRIT 4544-3 37 % L=37 H=47 MCV 787-2 89 fL L=82 H=92 MCH 785-6 25.6 pg L=27.0 H=31.0 MCHC 786-4 28.7 % L=32.0 H=36.0 RDW-SD 788-0 70.3 fL L=39.0 H=49.0 PLATELET COUNT 777-3 226 th/cmm L=150 H=45 0 Anisocytosis 2+ N/A Hypochromia 1+ N/A Schistocytes 1+ N/A URINALYSIS WITH MICRO AND RE FLEX CULTURE - Collect Date/Time: 10/17/2020 12:31 Test Name Code Test Result Test Units Test Ref Rang e COLLECTION MODE: CLEAN CATCH N/A Color 5778-6 YELLOW N/A yellow Appearance 5767-9 CLEAR N/A clear Glucose urine 84442-9 NEGATIVE N/A negative mg /dl Bilirubin 5770-3 NEGATIVE N/A negative Ketones 2514-8 NEGATIVE N/A negative mg/dl Spec gravity 5811-5 1.025 N/A 1.003 - 1.03 0 pH urine 2756-5 6.0 N/A 5.0 - 7.0 Protein 58783-0 100 N/A negative mg/dl Urobilinogen 20801-9 1.0 N/A <or= 1 EU/dl Nitrite. 5802-4 NEGATIVE N/A negative Blood 5794-3 SMALL N/A negative Leukocytes. TRACE N/A negative WBCs. 77013-6 0-5 N/A 0-5 / hpf RBCs none N/A 0-5 / hpf Epith cells 77927-7 0-5 N/A 0-5 / hpf Cell types squamous N/A Crystals amorphous N/A none Bacteria minimal N/A none Mucus none N/A none Casts 51495-8 0-5 N/A none /lpf Cast types fine gran N/A Active Medications Unknown or Not Available. Medications Administered During Visit Unknown or Not Available. Encounters Encounter Diagnosis Diagnosis Code Start Date Low grade squamous intraepit helial lesion on cytologic smear of cervix (LGSIL) K02450 10/17/2020 Social History Smoking Status Code Start Date End Date Current every day smoker 944844222 Patient Decision Aids Unknown or Not Available. Discharge Instructions You were admitted to [facility] on 10/17/2020 11:25 with a principal diagnosis of Low grade squamous intraepithelial lesion on cytologic smear of cervix (LGSIL) You had the following tests done:CBC W/ DIFFERENTIALURINALYSIS WITH MICRO AND REFLEX CULTURE You were discharged from [facility] on 10/17/2020 11:25 Should you have any questions prior to [...]
--- OUTSIDE RECORDS SUMMARY | 2023-04-30 18:37 | XMS_ITS | CCD ---
Author Name Unknown Address [address] [place] [address] [phone] Organization Unknown Address [address] [place] [address] [phone] Care Team Providers Care Geriatric Nurse Assistant Name Role Phone APOORVA JOHNSON, DANIEL Blanton Attending Physician [phone] Vital Signs Unknown or Not Available. Allergies Allergy Code Allergy Type Reaction Status MORPHINE 7052 Drug allergy Vomiting Active BAND-AID BRAND ADHESIVE BANDAGES 7052029 Drug allergy B REAK OUT Active LATEX 9356021 Allergy to substance Acti ve Procedures Unknown [...] Date End Date Current every day smoker 229592573 Patient Decision Aids Unknown or Not Available. Discharge Instructions You were admitted to on 11/01/2020 07:00 with a principal diagnosis of Moderate cervical dysplasia You were discharged from on 11/01/2020 07:00 Should you have any questions prior to [...]
--- OUTSIDE RECORDS SUMMARY | 2023-04-30 18:37 | XMS_ITS | CCD ---
Author Name Unknown Address [address] [place] [address] [phone] Organization Unknown Address [address] [place] [address] [phone] Care Team Providers Care Vice President For Instruction Name Role Phone ROSALINDA ABAD Attending Physician [phone] ROSALINDA ABAD Rounding (Secondary) Physicia n [phone] Vital Signs Unknown or Not Available. Allergies Allergy Code Allergy Type Reaction Status MORPHINE 7052 Drug allergy Vomiting Active BAND-AID BRAND ADHESIVE BANDAGES 5526612 Drug allergy B REAK OUT Active LATEX 5247361 Allergy to substance Acti ve Procedures Unknown [...] Encounters Encounter Diagnosis Diagnosis Code Start Date Refusal of treatment by patient [id number] 04/16/2021 Social History Smoking Status Code Start Date End Date Current every day smoker 580336625 Patient Decision Aids Unknown or Not Available. Discharge Instructions You were admitted to [facility] on 04/16/2021 10:09 with a principal diagnosis of Procedure and treatment not carried out because of patient's decision for other reasons You were discharged from [facility] on 04/16/2021 14:47 Should you have any questions prior to [...]
--- OUTSIDE RECORDS SUMMARY | 2023-04-30 18:37 | XMS_ITS | CCD ---
Author Name Unknown Address [address] [place] [address] [phone] Organization Unknown Address [address] [place] [address] [phone] Care Team Providers Care Search Engine Optimization Consultant Name Role Phone APOORVA JOHNSON, DANIEL Blanton Attending Physician [phone] Vital Signs Unknown or Not Available. Allergies Allergy Code Allergy Type Reaction Status MORPHINE 7052 Drug allergy Vomiting Active BAND-AID BRAND ADHESIVE BANDAGES 7409682 Drug allergy B REAK OUT Active LATEX 3326160 Allergy to substance Acti ve Procedures Unknown or Not Available. History of Immunizations Immunization Code Date COVID-19, mRNA, LNP-S, PF, 100 mcg/0.5mL dose or 50 mcg/0.25mL dose 06/21/2020 COVID-19, mRNA, LNP-S, PF, 100 mcg/0.5mL dose or 50 mcg/0.25mL dose 07/19/2020 Problems Unknown or Not Available. Results CBC W/ DIFFERENTIAL - Collec t Date/Time: 11/14/2020 11:20 Test Name Code Test Result Test Units Test Ref Rang e WBC 6690-2 7.55 th/cmm L=5.00 H=10.00 NEUT % 74.1 % L=40.0 H=80.0 LYMPH % 14.4 % L=10.0 H=50.0 MONO % 21339-7 8.5 % L=2.0 H=12.0 EOS % 1.6 % L=0.0 H=8.0 BASO % 0.5 % L=0.0 H=3.0 IG % 2514-8 0.9 % L=0.0 H=1.1 NRBC % 60961-5 0.0 % L=0.0 H=0.0 NEUT abs count 751-8 5.6 th/cmm L=1.6 H=8. 4 LYMPH abs count 731-0 1.1 th/cmm L=1.5 H=4 .0 MONO abs count 742-7 0.6 th/cmm L=0.2 H=1. 0 EOS abs count 711-2 0.1 th/cmm L=0.0 H=0.5 BASO abs count 704-7 0.0 th/cmm L=0.0 H=0. 2 IG abs count 24652-6 0.1 th/cmm L=0.0 H=0.1 NRBC abs count 67952-6 0.0 mil/cmm L=0.0 H=0. 0 RBC 789-8 4.15 mil/cmm L=3.90 H=5.40 HEMOGLOBIN 718-7 10.3 gm/dL L=12.0 H=16.0 HEMATOCRIT 4544-3 36 % L=37 H=47 MCV 787-2 87 fL L=82 H=92 MCH 785-6 24.8 pg L=27.0 H=31.0 MCHC 786-4 28.6 % L=32.0 H=36.0 RDW-SD 788-0 63.2 fL L=39.0 H=49.0 PLATELET COUNT 777-3 205 th/cmm L=150 H=45 0 Anisocytosis 1+ N/A Polychromia 1+ N/A Schistocytes 1+ N/A Tear drops 1+ N/A Active Medications Unknown or Not Available. Medications Administered During Visit Unknown or Not Available. Encounters Encounter Diagnosis Diagnosis Code Start Date Left lower quadrant pain R1032 021 Social History Smoking Status Code Start Date End Date Current every day smoker 665680505 Patient Decision Aids Unknown or Not Available. Discharge Instructions You were admitted to [facility] on 11/14/2020 10:12 with a principal diagnosis of Left lower quadrant pain You had the following tests done:CBC W/ DIFFERENTIAL You were discharged from [facility] on 11/14/2020 10:13 Should you have any questions prior to [...]
--- OUTSIDE RECORDS SUMMARY | 2023-04-30 18:37 | XMS_ITS | CCD ---
Author Name Unknown Address [address] [place] [place] [address] [phone] Organization Unknown Address [address] [place] [place] [address] [phone] Care Team Providers Care Produce Laborer Name Role Phone AMINAH VEGA, LIANG Lai Attending Physician [phone] Vital Signs Unknown or Not Available. Allergies Allergy Code Allergy Type Reaction Status MORPHINE 7052 Drug allergy Vomiting Active BAND-AID BRAND ADHESIVE BANDAGES 5301592 Drug allergy B REAK OUT Active LATEX 1232967 Allergy to substance Acti ve Procedures Unknown [...] Start Date Iron deficiency anemia, unspecified D509 11/16/2020 Social History Smoking Status Code Start Date End Date Current every day smoker 450962575 Patient Decision Aids Unknown or Not Available. Discharge Instructions You were admitted to [facility] 01 on 11/16/2020 08:25 with a principal diagnosis of Iron deficiency anemia, unspecified You were discharged from [facility] on 11/16/2020 08:25 Should you have any questions prior to [...]
--- OUTSIDE RECORDS SUMMARY | 2023-04-30 18:37 | XMS_ITS | CCD ---
Author Name Unknown Address [address] [place] [address] [phone] Organization Unknown Address [address] [place] [address] [phone] Care Team Providers Care Java Web Engineer Name Role Phone AMINAH VEGA, LIANG Lai Attending Physician [phone] Vital Signs Unknown or Not Available. Allergies Allergy Code Allergy Type Reaction Status MORPHINE 7052 Drug allergy Vomiting Active BAND-AID BRAND ADHESIVE BANDAGES 8726854 Drug allergy B REAK OUT Active LATEX 4583535 Allergy to substance Acti ve Procedures Unknown [...] Start Date Iron deficiency anemia, unspecified D509 11/10/2020 Social History Smoking Status Code Start Date End Date Current every day smoker 085731914 Patient Decision Aids Unknown or Not Available. Discharge Instructions You were admitted to [facility] on 11/10/2020 13:52 with a principal diagnosis of Iron deficiency anemia, unspecified You were discharged from [facility] on 11/10/2020 13:52 Should you have any questions prior to [...]
--- OUTSIDE RECORDS SUMMARY | 2023-04-30 18:38 | XMS_ITS | CCD ---
Author Name Unknown Address [address] [place] [address] [phone] Organization Unknown Address [address] [place] [address] [phone] Care Team Providers Care Alumina Refinery Operator Name Role Phone AMINAH VEGA, LIANG Lai Attending Physician [phone] Vital Signs Unknown or Not Available. Allergies Allergy Code Allergy Type Reaction Status MORPHINE 7052 Drug allergy Vomiting Active BAND-AID BRAND ADHESIVE BANDAGES 6122451 Drug allergy B REAK OUT Active Procedures [...] Start Date Iron deficiency anemia, unspecified D509 09/08/2020 Social History Smoking Status Code Start Date End Date Current every day smoker 278907077 Patient Decision Aids Unknown or Not Available. Discharge Instructions You were admitted to [facility] 01 on 09/08/2020 08:28 with a principal diagnosis of Iron deficiency anemia, unspecified You were discharged from [facility] 01 on 09/08/2020 08:28 Should you have any questions prior to [...]
--- OUTSIDE RECORDS SUMMARY | 2023-04-30 18:38 | XMS_ITS | CCD ---
Author Name Unknown Address [address] [place] [address] [phone] Organization Unknown Address [address] [place] [address] [phone] Care Team Providers Care Electronic Controls Repairer Supervisor Name Role Phone ROSALINDA ABAD POWERKenneth Attending Physician [phone] Vital Signs Unknown or Not Available. Allergies Allergy Code Allergy Type Reaction Status MORPHINE 7052 Drug allergy Vomiting Active BAND-AID BRAND ADHESIVE BANDAGES 4143027 Drug allergy B REAK OUT Active Procedures [...] Encounters Encounter Diagnosis Diagnosis Code Start Date Idiopathic peripheral neuropathy 05598510 08/28/2020 Social History Smoking Status Code Start Date End Date Current every day smoker 278255825 Patient Decision Aids Unknown or Not Available. Discharge Instructions You were admitted to [facility] on 08/28/2020 12:53 with a principal diagnosis of Hereditary and idiopathic neuropathy, unspecified You were discharged from [facility] on 08/28/2020 12:53 Should you have any questions prior to [...]
--- OUTSIDE RECORDS SUMMARY | 2023-04-30 18:38 | XMS_ITS | CCD ---
Author Name Unknown Address [address] [place] [address] [phone] Organization Unknown Address [address] [place] [address] [phone] Care Team Providers Care Small Animal Caretaker Name Role Phone AMINAH VEGA, LIANG Lai Attending Physician [phone] Vital Signs Unknown or Not Available. Allergies Allergy Code Allergy Type Reaction Status MORPHINE 7052 Drug allergy Vomiting Active BAND-AID BRAND ADHESIVE BANDAGES 2871997 Drug allergy B REAK OUT Active Procedures [...] Start Date Iron deficiency anemia, unspecified D509 09/15/2020 Social History Smoking Status Code Start Date End Date Current every day smoker 502809142 Patient Decision Aids Unknown or Not Available. Discharge Instructions You were admitted to [facility] on 09/15/2020 08:15 with a principal diagnosis of Iron deficiency anemia, unspecified You were discharged from [facility] on 09/15/2020 08:15 Should you have any questions prior to [...]
--- OUTSIDE RECORDS SUMMARY | 2023-04-30 18:38 | XMS_ITS | CCD ---
Author Name Unknown Address [address] [place] [address] [phone] Organization Unknown Address [address] [place] [address] [phone] Care Team Providers Care Care Process Manager Name Role Phone DANIEL GUERIN MD Attending Physician [phone] Vital Signs Unknown or Not Available. Allergies Allergy Code Allergy Type Reaction Status MORPHINE 7052 Drug allergy Vomiting Active BAND-AID BRAND ADHESIVE BANDAGES 4004752 Drug allergy B REAK OUT Active Procedures [...] Encounters Encounter Diagnosis Diagnosis Code Start Date Other specified counseling Z7189 09/06 Social History Smoking Status Code Start Date End Date Current every day smoker 757068370 Patient Decision Aids Unknown or Not Available. Discharge Instructions You were admitted to [facility] on 09/06/2020 10:20 with a principal diagnosis of Other specified counseling You were discharged from [facility] on 09/06/2020 10:20 Should you have any questions prior to [...]
[2023-04-30 21:22] LABS: Abs Immature Grans 0.02 10^3/uL (0.0-0.06); Absolute Basophil Count 0.01 10^3/uL (0.0-0.2); Absolute Eosinophil Count 0.08 10^3/uL (0.0-0.7); Absolute Lymphocyte Count 0.85 10^3/uL (1.2-3.4); Absolute Monocyte Count 0.27 10^3/uL (0.1-0.8); Absolute Neutrophil Count 4.04 10^3/uL (1.2-6.7); Basophils % 0.2; Eosinophils % 1.5; HCT 21.1 % (36.0-46.0); Immature Grans % 0.4; Lymphocytes % 16.1; MCH 21.1 pg (27.0-33.0); MCV 75 fL (80-95); MPV 10.6 fL (8.0-11.0); Monocytes % 5.1; Neutrophils % 76.7; Platelet Count 201 10^3/uL (130-400); RDW 18.4 % (11.7-14.6); RDW-SD 50.5 fL; WBC 5.27 10^3/uL (4.4-10.8)
[2023-04-30 21:30] LABS: ESR 18 mm/hr (0-30)
[2023-04-30 21:37] LABS: HGB 5.9 g/dL (11.2-15.7)
[2023-04-30 21:39] LABS: Diff Comment RBC Morph Reviewed; Hypochromasia 3+; Microcytosis 2+
[2023-04-30 21:55] LABS: COMMENT (LAB VIEW ONLY) 101.82 mg/dL
[2023-04-30 21:57] LABS: ALT 19 U/L (14-59); AST 10 U/L (15-37); Albumin 3.4 g/dL (3.4-5.0); Alkaline Phosphatase 66 U/L (46-116); Anion Gap 12.2 mmol/L (3-11); BUN 18 mg/dL (7-18); CO2 24.8 mmol/L (21.0-32.0); CREATININE 2.2 mg/dL (0.55-1.02); Calcium 9.1 mg/dL (8.5-10.1); Chloride 105 mmol/L (98-107); Estimated GFR 24.12 (mL/min/1.73m2); Ferritin 6 ng/mL (8-252); Folate 5.2 ng/mL (8.6-20.0); Glucose 107 mg/dL (74-106); Sodium 142 mmol/L (136-145); Total Protein 6.8 g/dL (6.4-8.2)
[2023-04-30 21:58] LABS: Microalb ug/mg Crea 162.8 ug/mg Cr
[2023-04-30 22:06] LABS: Potassium 2.9 mmol/L (3.5-5.1)
[2023-05-02 13:23] LABS: SS-A/Ro, IgG 4.2 CU (<20.0); SS-B (La) Ab, IgG <3.3 CU (<20.0)
[2023-05-02 14:27] LABS: ANA Interpretation Negative (Negative)
== END 2023-04-30 18:30 | disposition home or self-care (01) ==
LOC: NCHCN 18:29
PROVIDERS: PCP Family Medicine; Visit Provider Family Medicine
DX: D53.9 Nutritional anemia, unspecified (principal); N18.32 Chronic kidney disease, stage 3b; R68.2 Dry mouth, unspecified; R63.4 Abnormal weight loss; I10 Essential (primary) hypertension; Z01.84 Encounter for antibody response examination
CPT/HCPCS: 80053; 85652; 82043; 82570; 82728; 82746; 85025; 86038; 86235

== ENCOUNTER 2023-06-09 11:33 | Outpatient (REF) | payer MEDICARE, SELFPAY ==
[2023-06-09 14:56] LABS: HCT 42.4 % (36.0-46.0); HGB 12.5 g/dL (11.2-15.7); MCH 27.5 pg (27.0-33.0); MCHC 29.5 % (32.0-36.0); MCV 93 fL (80-95); MPV 10.6 fL (8.0-11.0); Platelet Count 177 10^3/uL (130-400); RBC 4.54 10^6/uL (3.93-5.22); RDW-SD 94.5 fL; Reticulocyte 2.4 % (0.5-2.4); WBC 5.58 10^3/uL (4.4-10.8)
[2023-06-09 15:09] LABS: RDW 28.7 % (11.7-14.6)
[2023-06-09 15:32] LABS: Ferritin 472 ng/mL (8-252)
== END 2023-06-09 11:34 | disposition home or self-care (01) ==
LOC: NCHCN 11:33
PROVIDERS: PCP Family Medicine; Visit Provider Family Medicine
DX: D50.9 Iron deficiency anemia, unspecified (principal)
CPT/HCPCS: 85027; 82728; 85045

== ENCOUNTER 2023-09-19 15:52 | Outpatient (REF) | payer MEDICARE, SELFPAY ==
--- NOTE | 2023-09-19 15:00 | PAPFT_PTH ---
PATIENT: Melodie Hodge LOC: [facility]#:[id number] AGE/SX: 68/F ROOM: RE09/19/[address]: Elizabeth Dsouza : 1955 BED: DIS: 09/19/2023 SPEC #: [id number] RECD: 09/22/23 18:28 STATUS: MARÍA RERicardo #: [id number] CARMEN: 09/19/23 15:[address]: Elizabeth Dsouza DEPT: [facility] Cytology RECD BY: Kalpana Crespo Tissues: 1 - CX/ENDOCX FOR PAP SMEARS Procedures: PAP THIN PREP/UVM Screening Comments: [id number]
--- OUTSIDE RECORDS SUMMARY | 2023-09-19 15:54 | XMS_ITS ---
Author Name Unknown Address [address] [place] [address] [phone] Phone Organization Unknown Address [address] [place] [address] [phone] Phone Care Team Providers Care Senior Information Security Analyst Name Role Phone AMINAH Lai Attending Unavailable LETITIA Gaspar Primary Unavailable Social History Type Status Start Date End Date Code Code Syst em Smoking History Current every day smoker 185840827 SNOMED CT Sex Female Assessment You had the following problems:NIDDMCADMYOCARDIAL INFARCTGERDDEPRESSION Hospital Discharge Instructions Should you have any questions prior to discharge, please contact a member of your healthcare team. If you have left the hospital and have any questions, please contact your primary care physician. Reason For Referral No Data Found Problems Problem Start Date Resolved Date Status Code Code System NIDDM active 91664943 SNOMED-CT CAD active 01238801 SNOMED-CT MYOCARDIAL INFARCT active 56472186 S NOMED-CT GERD active 876421871 SNOMED-CT DEPRESSION active 85231825 SNOMED-CT HIGH CHOLESTEROL 05/01/2023 resolved 33047382 SN OMED-CT STENTED ARTERY 05/01/2023 resolved 882825664 SNOM ED-CT COPD 05/01/2023 resolved 76650228 SNOMED-CT Allergies and Adverse Reactions Allergy Substance Reaction Severity Start Date Concern Status Code Code Syste m MORPHINE Vomiting (SNOMED-CT: 066318028) Moderate Active 7052 RxNorm LATEX Active 2364391 RxNorm BAND-AID BRAND ADHESIVE BANDAGES Moderate Active 3050508 RxNorm Plan of Treatment MRI L SPINE W/O CONTRAST 03/12/2023 NM BONE SCAN WHOLE BODY 06/06/2022 NM BONE SCAN WHOLE BODY 06/06/2022 NM BONE SCAN WHOLE BODY 06/06/2022 NM BONE SCAN WHOLE BODY 06/06/2022 CT CHEST W/O CONTRAST 05/23/2022 BONE DENSITY DEXA SPINE & HIP 3 CT CHEST W/O CONTRAST 03/20/2022 BONE DENSITY DEXA SPINE & HIP 2 CT LOWER EXTREM W/ CONTRAST 12/27/2021 Encounters Encounter Diagnosis Start Date Code Code Sys tem Iron deficiency anemia, unspecified 06/26/2021 SNOMED-CT Personal Care Team Section Performer Name Performer Role Active Date Inactive Da te
--- OUTSIDE RECORDS SUMMARY | 2023-09-19 15:54 | XMS_ITS ---
Author Name Unknown Address [address] [place] [address] [phone] Phone Organization Unknown Address [address] [place] [address] [phone] Phone Care Team Providers Care Open Cut Examiner Name Role Phone POLLO Cooper Attending Unavailable LETITIA Gaspar Primary Unavailable Social History Type Status Start Date End Date Code Code Syst em Smoking History Current every day smoker 907504032 SNOMED CT Sex Female Assessment You had [...] Date Status Code Code System NIDDM active 51943490 SNOMED-CT CAD active 90658871 SNOMED-CT MYOCARDIAL INFARCT active 09814904 S NOMED-CT GERD active 840576968 SNOMED-CT DEPRESSION active 53072571 SNOMED-CT HIGH CHOLESTEROL 05/01/2023 resolved 96345397 SN OMED-CT STENTED ARTERY 05/01/2023 resolved 663653732 SNOM ED-CT COPD 05/01/2023 resolved 80988830 SNOMED-CT Allergies and Adverse Reactions Allergy Substance Reaction Severity Start Date Concern Status Code Code Syste m MORPHINE Vomiting (SNOMED-CT: 383849078) Moderate Active 7052 RxNorm LATEX Active 5592252 RxNorm BAND-AID BRAND ADHESIVE BANDAGES Moderate Active 1228642 RxNorm Plan of Treatment MRI L SPINE [...] Diagnosis Start Date Code Code Sys tem Refusal of treatment by patient 04/16/2021 612361093 SNOMED-CT Personal Care Team Section Performer Name Performer Role Active Date Inactive Da te
--- OUTSIDE RECORDS SUMMARY | 2023-09-19 15:55 | XMS_ITS ---
Author Name Unknown Address [address] [place] [address] [phone] Phone Organization Unknown Address [address] [place] [address] [phone] Phone Care Team Providers Care Corporate Associate Attorney Name Role Phone RIKKI WRIGHT Attending Unavailable LETITIA Gaspar Primary Unavailable Results BUN/CREATININE RATIO FOR RAD IOLOGY* - Collect Date/Time: 12/27/2021 11:46 [facility] ID: [id number] - [id number] [address] [place], [place], [address] LOINC: 3097-3 Test Value Unit Reference Range Code Code System Flag BUN 13 mg/dL L=6 H=25 3094-0 LOINC CREATININE 1.59 mg/dL L=0.51 H=0.95 2160-0 LOINC H BUN/CREATININE RATIO 8.2 3097-3 LOINC AGE 66 years eGFR (non-Afr.Amer) 33 mL/min 49234-7 LOINC eGFR (Afr-Singaporean) 39 mL/min 35045-0 LOINC Social History Type Status Start Date End Date Code Code Syst em Smoking History Current every day smoker 774756554 SNOMED CT Sex Female Assessment You had [...] Date Status Code Code System NIDDM active 46917998 SNOMED-CT CAD active 33969664 SNOMED-CT MYOCARDIAL INFARCT active 55153858 S NOMED-CT GERD active 198156401 SNOMED-CT DEPRESSION active 35565941 SNOMED-CT HIGH CHOLESTEROL 05/01/2023 resolved 10567384 SN OMED-CT STENTED ARTERY 05/01/2023 resolved 242620248 SNOM ED-CT COPD 05/01/2023 resolved 11785778 SNOMED-CT Allergies and Adverse Reactions Allergy Substance Reaction Severity Start Date Concern Status Code Code Syste m MORPHINE Vomiting (SNOMED-CT: 849608246) Moderate Active 7052 RxNorm LATEX Active 8051498 RxNorm BAND-AID BRAND ADHESIVE BANDAGES Moderate Active 0490584 RxNorm Plan of Treatment MRI L SPINE [...] Diagnosis Start Date Code Code Sys tem Peripheral vascular disease 12/27/2021 240845268 SNOMED-CT Personal Care Team Section Performer Name Performer Role Active Date Inactive Av pérez
--- OUTSIDE RECORDS SUMMARY | 2023-09-19 15:55 | XMS_ITS ---
Author Name Unknown Address [address] [place] [address] [phone] Phone Organization Unknown Address [address] [place] [address] [phone] Phone Care Team Providers Care Corner Bead Operator Name Role Phone RIKKI WRIGHT Attending Unavailable LETITIA Gaspar Primary Unavailable Results TSH THYROID STIMULATING HORM ONE* - Collect Date/Time: 12/25/2021 09:53 [facility] ID: [id number] [address] [place] [address], [address] LOINC: 3014-8 Test Value Unit Reference Range Code Code System Flag TSH 1.411 uIU/mL L=0.360 H=3.740 3014-8 LOINC SED RATE* - Collect Date/Shahriar e: 12/25/2021 09:53 [facility] ID: [id number] [address] [place] [address], [address] LOINC: 4537-7 Test Value Unit Reference Range Code Code System Flag SED. RATE 18 mm/hr L=0 H=30 4537-7 LOINC CBC W/ DIFFERENTIAL* - Colle ct Date/Time: 12/25/2021 09:53 [facility] ID: [id number] [address] [place] [address], 61 LOINC: 92086-3 Test Value Unit Reference Range Code Code System Flag WBC 5.01 th/cmm L=5.00 H=10.00 6690-2 LOINC NEUT % 69.0 % L=40.0 H=80.0 LYMPH % 20.4 % L=10.0 H=50.0 MONO % 6.8 % L=2.0 H=12.0 26800-3 LOINC EOS % 3.0 % L=0.0 H=8.0 BASO % 0.6 % L=0.0 H=3.0 IG % 0.2 % L=0.0 H=1.1 2514-8 LOINC NRBC % 0.0 % L=0.0 H=0.0 95079-2 LOINC NEUT abs count 3.5 th/cmm L=1.6 H=8.4 751-8 LOINC LYMPH abs count 1.0 th/cmm L=1.5 H=4.0 731-0 LOINC L MONO abs count 0.3 th/cmm L=0.2 H=1.0 742-7 LOINC EOS abs count 0.2 th/cmm L=0.0 H=0.5 711-2 LOINC BASO abs count 0.0 th/cmm L=0.0 H=0.2 704-7 LOINC IG abs count 0.0 th/cmm L=0.0 H=0.1 65292-0 LOINC NRBC abs count 0.0 mil/cmm L=0.0 H=0.0 23164-0 LOINC RBC 3.26 mil/cmm L=3.90 H=5.40 789-8 LOINC L HEMOGLOBIN 7.3 gm/dL L=12.0 H=16.0 718-7 LOINC L HEMATOCRIT 27 % L=37 H=47 4544-3 LOINC L MCV 82 fL L=82 H=92 787-2 LOINC MCH 22.4 pg L=27.0 H=31.0 785-6 LOINC L MCHC 27.3 % L=32.0 H=36.0 786-4 LOINC L RDW-SD 51.1 fL L=39.0 H=49.0 788-0 LOINC H PLATELET COUNT 179 th/cmm L=150 H=450 777-3 LOINC Anisocytosis 1+ Hypochromia 1+ COMPREHENSIVE METABOLIC PANE L (CMP) - Collect Date/Time: 12/25/2021 09:53 [facility] ID: [id number] [address] [place], [place], [address] LOINC: 07419-5 Test Value Unit Reference Range Code Code System Flag GLUCOSE 102 mg/dL L=70 H=116 2345-7 LOINC BUN 13 mg/dL L=6 H=25 3094-0 LOINC CREATININE 1.59 mg/dL L=0.51 H=0.95 2160-0 LOINC H SODIUM SERUM 139 mmol/L L=136 H=145 2951-2 LOINC POTASSIUM SERUM 3.5 mmol/L L=3.4 H=5.2 2823-3 LOINC CHLORIDE SERUM 106 mmol/L L=96 H=110 2075-0 LOINC CARBON DIOXIDE (CO2) 25 mmol/L L=22 H=34 2028-9 LOINC ANION GAP 7.8 mmol/L 26119-4 LOINC CALCIUM SERUM 9.0 mg/dL L=8.2 H=10.2 22834-7 LOINC BILIRUBIN TOTAL 0.9 mg/dL L=0.0 H=1.3 1975-2 LOINC ALK. PHOS. 58 U/L L=46 H=116 6768-6 LOINC SGOT (AST) 9 U/L L=15 H=37 1920-8 LOINC L SGPT (ALT) 17 U/L L=12 H=78 1742-6 LOINC TOTAL PROTEIN 7.1 gm/dL L=6.0 H=8.0 2885-2 LOINC ALBUMIN 3.5 gm/dL L=3.4 H=5.0 1751-7 LOINC AGE 66 years eGFR (non-Afr.Amer.) 33 mL/min 18567-7 LOINC eGFR (Afr-Japanese) 39 mL/min 99682-4 LOINC FERRITIN - Collect Date/Time : 12/25/2021 09:53 [facility] ID: [id number] [address] [place], [place], [address] LOINC: 2276-4 Test Value Unit Reference Range Code Code System Flag FERRITIN 6 ng/mL L=8 H=388 2276-4 LOINC L Social History Type Status Start Date End Date Code Code Syst em Smoking History Current every day smoker 416674778 SNOMED CT Sex Female Assessment You had [...] Date Status Code Code System NIDDM active 66829119 SNOMED-CT CAD active 75607039 SNOMED-CT MYOCARDIAL INFARCT active 80960406 S NOMED-CT GERD active 903287724 SNOMED-CT DEPRESSION active 15249690 SNOMED-CT HIGH CHOLESTEROL 05/01/2023 resolved 36177805 SN OMED-CT STENTED ARTERY 05/01/2023 resolved 968996627 SNOM ED-CT COPD 05/01/2023 resolved 73666988 SNOMED-CT Allergies and Adverse Reactions Allergy Substance Reaction Severity Start Date Concern Status Code Code Syste m MORPHINE Vomiting (SNOMED-CT: 592439872) Moderate Active 7052 RxNorm LATEX Active 2755290 RxNorm BAND-AID BRAND ADHESIVE BANDAGES Moderate Active 3061872 RxNorm Plan of Treatment MRI L SPINE [...] Date Code Code Sys tem Iron deficiency anemia 12/25/2021 37827954 SNOME D-CT Personal Care Team Section Performer Name Performer Role Active Date Inactive Da te
--- OUTSIDE RECORDS SUMMARY | 2023-09-19 15:55 | XMS_ITS ---
Author Name Unknown Address [address] [place] [address] [phone] Phone Organization Unknown Address [address] [place] [address] [phone] Phone Care Team Providers Care Lube Technician Name Role Phone AMINAH Lai Attending Unavailable LETITIA Gaspar Primary Unavailable Social History Type Status Start Date End Date Code Code Syst em Smoking History Current every day smoker 678250098 SNOMED CT Sex Female Assessment You had [...] Date Status Code Code System NIDDM active 82359789 SNOMED-CT CAD active 03912548 SNOMED-CT MYOCARDIAL INFARCT active 12667544 S NOMED-CT GERD active 806218343 SNOMED-CT DEPRESSION active 35130168 SNOMED-CT HIGH CHOLESTEROL 05/01/2023 resolved 90157235 SN OMED-CT STENTED ARTERY 05/01/2023 resolved 089026086 SNOM ED-CT COPD 05/01/2023 resolved 94431947 SNOMED-CT Allergies and Adverse Reactions Allergy Substance Reaction Severity Start Date Concern Status Code Code Syste m MORPHINE Vomiting (SNOMED-CT: 031161671) Moderate Active 7052 RxNorm LATEX Active 4477089 RxNorm BAND-AID BRAND ADHESIVE BANDAGES Moderate Active 3597438 RxNorm Plan of Treatment MRI L SPINE [...] Code Sys tem Iron deficiency anemia, unspecified 07/31/2021 SNOMED-CT Personal Care Team Section Performer Name Performer Role Active Date Inactive Da te
--- OUTSIDE RECORDS SUMMARY | 2023-09-19 15:56 | XMS_ITS ---
Author Name Unknown Address [address] [place] [address] [phone] Phone Organization Unknown Address [address] [place] [address] [phone] Phone Care Team Providers Care Mechanical Engineering Specialist Name Role Phone RIKKI WRIGHT Attending Unavailable LETITIA Gaspar Primary Unavailable Social History Type Status Start Date End Date Code Code Syst em Smoking History Current every day smoker 807630992 SNOMED CT Sex Female Assessment You had [...] Date Status Code Code System NIDDM active 43040546 SNOMED-CT CAD active 73268412 SNOMED-CT MYOCARDIAL INFARCT active 00386708 S NOMED-CT GERD active 433578017 SNOMED-CT DEPRESSION active 43031789 SNOMED-CT HIGH CHOLESTEROL 05/01/2023 resolved 65387487 SN OMED-CT STENTED ARTERY 05/01/2023 resolved 808914409 SNOM ED-CT COPD 05/01/2023 resolved 33606661 SNOMED-CT Allergies and Adverse Reactions Allergy Substance Reaction Severity Start Date Concern Status Code Code Syste m MORPHINE Vomiting (SNOMED-CT: 153324704) Moderate Active 7052 RxNorm LATEX Active 7764289 RxNorm BAND-AID BRAND ADHESIVE BANDAGES Moderate Active 1407951 RxNorm Plan of Treatment MRI L SPINE [...] 2 CT LOWER EXTREM W/ CONTRAST 12/27/2021 Personal Care Team Section Performer Name Performer Role Active Date Inactive Da te
--- OUTSIDE RECORDS SUMMARY | 2023-09-19 15:56 | XMS_ITS ---
Author Name Unknown Address [address] [place] [address] [phone] Phone Organization Unknown Address [address] [place] [address] [phone] Phone Care Team Providers Care Farm Supervisor Name Role Phone AMINAH Lai Attending Unavailable LETITIA Gaspar Primary Unavailable Social History Type Status Start Date End Date Code Code Syst em Smoking History Current every day smoker 920805659 SNOMED CT Sex Female Assessment You had [...] Date Status Code Code System NIDDM active 09194725 SNOMED-CT CAD active 74424845 SNOMED-CT MYOCARDIAL INFARCT active 94981758 S NOMED-CT GERD active 351771861 SNOMED-CT DEPRESSION active 02983002 SNOMED-CT HIGH CHOLESTEROL 05/01/2023 resolved 97570212 SN OMED-CT STENTED ARTERY 05/01/2023 resolved 377113100 SNOM ED-CT COPD 05/01/2023 resolved 92307360 SNOMED-CT Allergies and Adverse Reactions Allergy Substance Reaction Severity Start Date Concern Status Code Code Syste m MORPHINE Vomiting (SNOMED-CT: 988097786) Moderate Active 7052 RxNorm LATEX Active 5600099 RxNorm BAND-AID BRAND ADHESIVE BANDAGES Moderate Active 5336829 RxNorm Plan of Treatment MRI L SPINE [...] Code Sys tem Iron deficiency anemia, unspecified 01/17/2022 SNOMED-CT Personal Care Team Section Performer Name Performer Role Active Date Inactive Da te
--- OUTSIDE RECORDS SUMMARY | 2023-09-19 15:57 | XMS_ITS ---
Author Name Unknown Address [address] [place] [address] [phone] Phone Organization Unknown Address [address] [place] [address] [phone] Phone Care Team Providers Care Mailing Machine Operator Name Role Phone LETITIA Gaspar Attending Unavailable Results NM BONE SCAN WHOLE BODY - Co mpleted: 06/06/2022 11:55 LOINC: [facility] [place], [place] [address] PACS STRUCTURES TECHNICIAN REPORT Patient Name: VIKRAM CLIFFORD MRN: Sex: : Age: [id number] F 1955 66 Account: Accession: Admit: StayType: [id number] 06/06/2022 O/P Ordered: Order ID: Submitted: Ordering Provider: 06/06/2022 08:55 [id number] [facility] TONIA DONG Completed: Technologist: Resulted: 06/06/2022 11:55 HTP 06/06/2022 12:35 Study Description: NM BONE SCAN WHOLE BODY Study Reason: LYTIC BONE LESIONS TECHNIQUE: Injected Dose: 24.5 mCi Tc 99m MDP. Images: Whole body images and oblique views of the ribs. Comparison: Chest CT 23 May 2022, abdomen and pelvic CT 02 September 2018 Findings: No suspicious skeletal labeling. The bones of the thoracic spine have similar appearance to the lumbar spine exam of 2019 and may represent patchy osteoporosis. Increased activity seen in the region of the medial femoral tibial joints bilaterally consistent with advanced degenerative changes. Impression: No suspicious bony labeling. Findings could represent patchy osteoporosis. Further investigation for multiple myeloma could be performed. Report Digitally Signed by Tawana Chávez on 06/06/2022 12:35 PM EDT Social History Type Status Start Date End Date Code Code Syst em Smoking History Current every day smoker 195651000 SNOMED CT Sex Female Assessment You had [...] Date Status Code Code System NIDDM active 87365754 SNOMED-CT CAD active 99790044 SNOMED-CT MYOCARDIAL INFARCT active 60945674 S NOMED-CT GERD active 176594274 SNOMED-CT DEPRESSION active 07531804 SNOMED-CT HIGH CHOLESTEROL 05/01/2023 resolved 13906338 SN OMED-CT STENTED ARTERY 05/01/2023 resolved 073732625 SNOM ED-CT COPD 05/01/2023 resolved 15944081 SNOMED-CT Allergies and Adverse Reactions Allergy Substance Reaction Severity Start Date Concern Status Code Code Syste m MORPHINE Vomiting (SNOMED-CT: 296317194) Moderate Active 7052 RxNorm LATEX Active 7465380 RxNorm BAND-AID BRAND ADHESIVE BANDAGES Moderate Active 8328189 RxNorm Plan of Treatment MRI L SPINE W/O CONTRAST 03/12/2023 NM BONE SCAN WHOLE BODY 06/06/2022 NM BONE SCAN WHOLE BODY 06/06/2022 NM BONE SCAN WHOLE BODY 06/06/2022 NM BONE SCAN WHOLE BODY 06/06/2022 CT CHEST W/O CONTRAST 05/23/2022 BONE DENSITY DEXA SPINE & HIP CT CHEST W/O CONTRAST 03/20/2022 BONE DENSITY DEXA SPINE & HIP CT LOWER EXTREM W/ CONTRAST 12/27/2021 Encounters Encounter Diagnosis Start Date Code Code Sys tem Osteolysis 06/06/2022 534524642 SNOMED-CT Personal Care Team Section Performer Name Performer Role Active Date Inactive Da te
--- OUTSIDE RECORDS SUMMARY | 2023-09-19 15:57 | XMS_ITS ---
Author Name Unknown Address [address] [place] [address] [phone] Phone Organization Unknown Address [address] [place] [address] [phone] Phone Care Team Providers Care Instrumentation Supervisor Name Role Phone LETITIA Gaspar Attending Unavailable Results CT LDCT FOR LUNG CA SCREEN - Completed: 05/23/2022 09:33 LOINC: [facility] [place], [place] [address] PACS CHILD SPECIALIST REPORT Patient Name: VIKRAM CLIFFORD MRN: Sex: : Age: [id number] F 1955 66 Account: Accession: Admit: StayType: [id number] 05/23/2022 O/P Ordered: Order ID: Submitted: Ordering Provider: 05/23/2022 08:47 [id number] TONIA WRIGHT Completed: Technologist: Resulted: 05/23/2022 09:33 BMM 05/23/2022 11:27 Study Description: CT LDCT FOR LUNG CA SCREEN Study Reason: HEAVY SMOKER TECHNIQUE: Imaging Protocol: Low Dose Technique CONTRAST MATERIAL None COMPARISON: No exams were available for comparison FINDINGS: LUNGS: There is a concerning spiculated noncalcified nodule in the lateral aspect of the right upper lobe which measures approximately 1.4 x 1.5 cm, located 1.4 cm in from the pleural surface. This is suspicious. Smaller faint 3 mm nodular density seen below this level in the right upper lobe. No other significant focal right lung findings. There is a 2 mm nodule peripherally in the left upper lobe noted. No other left lung findings. No pleural effusions. MEDIASTINUM: No hilar nor mediastinal adenopathy. No supraclavicular adenopathy. No hilar adenopathy. CARDIAC: Heart size is normal. There is no pericardial effusion.Caliber of the thoracic aorta is within normal limits. OTHER: Hypodense 1.5 x 1.3 cm nodule in the left adrenal gland noted and a smaller 1.0 x 1.0 cm nodule in the right adrenal gland noted. OSSEOUS: There are no compression fractures but there are multiple areas of lucency involving all vertebral bodies in the thoracic column, possibly significant with respect to neoplastic involvement or possible myeloma. Recommend further testing. . IMPRESSION: 1. There is a concerning spiculated 1.5 cm noncalcified nodule in the right upper lobe, suspicious for malignancy. No pleural effusions. No obvious intrathoracic adenopathy. 2. Other nodular densities in the lung allison described above are smaller and have more benign appearance. 3. In addition to the right lung finding there are lucencies throughout all of the thoracic vertebrae noted. Recommend whole-body nuclear bone scan. Please also be aware that multiple myeloma may result in false negative nuclear bone scans. Lung Rads Category: 4B SUSPICIOUS / FURTHER INVESTIGATION REQUIRED, EITHER FURTHER IMAGING OR TISSUE SAMPLING/ BIOPSY. Report Digitally Signed by Elkin Calderón on 05/23/2022 11:27 AM EST Social History Type Status Start Date End Date Code Code Syst em Smoking History Current every day smoker 254404760 SNOMED CT Sex Female Assessment You had [...] Date Status Code Code System NIDDM active 21796582 SNOMED-CT CAD active 61196478 SNOMED-CT MYOCARDIAL INFARCT active 36647568 S NOMED-CT GERD active 915216446 SNOMED-CT DEPRESSION active 53333069 SNOMED-CT HIGH CHOLESTEROL 05/01/2023 resolved 98152860 SN OMED-CT STENTED ARTERY 05/01/2023 resolved 232707912 SNOM ED-CT COPD 05/01/2023 resolved 12161467 SNOMED-CT Allergies and Adverse Reactions Allergy Substance Reaction Severity Start Date Concern Status Code Code Syste m MORPHINE Vomiting (SNOMED-CT: 479508177) Moderate Active 7052 RxNorm LATEX Active 8278957 RxNorm BAND-AID BRAND ADHESIVE BANDAGES Moderate Active 3989716 RxNorm Plan of Treatment MRI L SPINE [...] Diagnosis Start Date Code Code Sys tem Encounter for screening for malignant neoplasm of respiratory organs 05/23/2022 SNOMED-CT Personal Care Team Section Performer Name Performer Role Active Date Inactive Da te
--- OUTSIDE RECORDS SUMMARY | 2023-09-19 15:57 | XMS_ITS ---
Author Name Unknown Address [address] [place] [address] [phone] Phone Organization Unknown Address [address] [place] [address] [phone] Phone Care Team Providers Care Retail Store Clerk Name Role Phone LETITIA TONIA Hubert Attending Unavailable Social History Type Status Start Date End Date Code Code Syst em Smoking History Current every day smoker 590587421 SNOMED CT Sex Female Assessment You had [...] Date Status Code Code System NIDDM active 02357603 SNOMED-CT CAD active 26490283 SNOMED-CT MYOCARDIAL INFARCT active 15568196 S NOMED-CT GERD active 171294370 SNOMED-CT DEPRESSION active 33527517 SNOMED-CT HIGH CHOLESTEROL 05/01/2023 resolved 85435961 SN OMED-CT STENTED ARTERY 05/01/2023 resolved 997453875 SNOM ED-CT COPD 05/01/2023 resolved 71688663 SNOMED-CT Allergies and Adverse Reactions Allergy Substance Reaction Severity Start Date Concern Status Code Code Syste m MORPHINE Vomiting (SNOMED-CT: 104259413) Moderate Active 7052 RxNorm LATEX Active 4634748 RxNorm BAND-AID BRAND ADHESIVE BANDAGES Moderate Active 1308272 RxNorm Plan of Treatment MRI L SPINE [...] Diagnosis Start Date Code Code Sys tem Canceled operative procedure 04/16/2022 97846396 SNOMED-CT Personal Care Team Section Performer Name Performer Role Active Date Inactive Da te
--- OUTSIDE RECORDS SUMMARY | 2023-09-19 15:57 | XMS_ITS ---
Author Name Unknown Address [address] [place] [address] [phone] Phone Organization Unknown Address [address] [place] [address] [phone] Phone Care Team Providers Care Blow Mold Technician Name Role Phone LETITIA Gaspar Attending Unavailable Results BD DXA BONE DENSITY HIP AND SPINE - Completed: 05/22/2022 13:43 LOINC: [place], [place] [address] PACS GUARD MUSEUM REPORT Patient Name: VIKRAM CLIFFORD MRN: Sex: : Age: [id number] F 1955 66 Account: Accession: Admit: StayType: [id number] 05/22/2022 O/P Ordered: Order ID: Submitted: Ordering Provider: 05/22/2022 12:59 [id number] TONIA ALBERTS Completed: Technologist: Resulted: 05/22/2022 13:43 DA 05/22/2022 13:46 Study Description: BD DXA BONE DENSITY HIP AND SPINE Study Reason: OSTEOPENIA TECHNIQUE: Performed on a Hologic unit. COMPARISON: No exams were available for comparison FINDINGS: Lumbar Spine total T-score: 3.5 Hip total T-score: 1.8 Independent reading at the femoral neck yields a T score of 0.6 IMPRESSION: Bone mineral density measures in the normal range. Fracture risk is low. Note: Any spine fracture indicates 5x risk for subsequent spine fracture and 2x risk for subsequent hip fracture. World Health Organization criteria for BMD interpretation classify patients: Normal...... T- Score at or above -1.0 Osteopenic... T- Score between -1.0 and -2.5 Osteoporosis... T-Score at or below -2.5 No exams were available for comparison Report Digitally Signed by Elkin Calderón on 05/22/2022 01:46 PM EST XR KNEE 4V RT* - Completed: 05/22/2022 13:22 LOINC: [facility] [place], [place] [address] PACS GUARD MUSEUM REPORT Patient Name: VIKRAM CLIFFORD MRN: Sex: : Age: [id number] F 1955 66 Account: Accession: Admit: StayType: [id number] 05/22/2022 O/P Ordered: Order ID: Submitted: Ordering Provider: 05/22/2022 12:59 [id number] TONIA ALBERTS Completed: Technologist: Resulted: 05/22/2022 13:22 MLL 05/22/2022 18:50 Study Description: XR KNEE 4V RT Study Reason: DJD RT KNEE TECHNIQUE: 2D digital imaging was performed. COMPARISON: No exams were available for comparison FINDINGS: NUMBER OF VIEWS: 4 No evidence of acute fracture. Small amount of increased joint fluid. There is significant narrowing of the medial compartment and marginal osteophytes of the medial compartment. Lateral compartment exhibits normal height. Mild degenerative changes in the patellofemoral compartment. IMPRESSION: Significant narrowing of the medial compartment. Degenerative change. Small effusion. Report Digitally Signed by Elkin Calderón on 05/22/2022 06:50 PM EST Social History Type Status Start Date End Date Code Code Syst em Smoking History Current every day smoker 425448258 SNOMED CT Sex Female Assessment You had [...] Date Status Code Code System NIDDM active 66359693 SNOMED-CT CAD active 45823629 SNOMED-CT MYOCARDIAL INFARCT active 62289302 S NOMED-CT GERD active 548324194 SNOMED-CT DEPRESSION active 25077480 SNOMED-CT HIGH CHOLESTEROL 05/01/2023 resolved 55081179 SN OMED-CT STENTED ARTERY 05/01/2023 resolved 897246970 SNOM ED-CT COPD 05/01/2023 resolved 66823845 SNOMED-CT Allergies and Adverse Reactions Allergy Substance Reaction Severity Start Date Concern Status Code Code Syste m MORPHINE Vomiting (SNOMED-CT: 945625253) Moderate Active 7052 RxNorm LATEX Active 6411286 RxNorm BAND-AID BRAND ADHESIVE BANDAGES Moderate Active 4373588 RxNorm Plan of Treatment MRI L SPINE [...] Diagnosis Start Date Code Code Sys tem Unilateral primary osteoarthritis, right knee 05/23/19 23 SNOMED-CT Personal Care Team Section Performer Name Performer Role Active Date Inactive Da te
--- OUTSIDE RECORDS SUMMARY | 2023-09-19 15:58 | XMS_ITS ---
Author Name Unknown Address [address] [place] [address] [phone] Phone Organization Unknown Address [address] [place] [address] [phone] Phone Care Team Providers Care Lithograph Printer Name Role Phone AMINAH TAVERA Joelle Attending Unavailable LETITIA Gaspar Primary Unavailable Results BLOOD BANK REPORT OF UNITS Joel ARIAS* - Collect Date/Time: 05/12/2023 14:46 [facility] ID: [id number] [address] [place] [address], [phone] LOINC: Test Value Unit Reference Range Code Code System Flag Component Packed RBCs Leukopoor Blood Group A 883-9 LOINC Rh (D) NEGATIVE 16669-4 LOINC Antibody Screen. PREV. POS Antibody Id. NON SPECIFIC COLD AGGLUTININ TYPE AND CROSS 1 UNIT (INCLU JÚNIOR SCREEN)* - Collect Date/Time: 05/12/2023 13:54 [facility] ID: [id number] [address] [place] [address], [phone] LOINC: Test Value Unit Reference Range Code Code System Flag Blood Group A 883-9 LOINC Rh (D) NEGATIVE 57407-9 LOINC Antibody Screen Neg w/prev Ab 1005-8 LOINC Antibody Id. NON SPECIFIC COLD AGGLUTININ CBC W/ DIFFERENTIAL* - Colle ct Date/Time: 05/12/2023 13:54 [facility] ID: [id number] [address] [place] [address], [phone] LOINC: 65031-3 Test Value Unit Reference Range Code Code System Flag WBC 5.89 th/cmm L=5.00 H=10.00 6690-2 LOINC NEUT % 77.6 % L=40.0 H=80.0 LYMPH % 15.1 % L=10.0 H=50.0 MONO % 5.1 % L=2.0 H=12.0 41557-3 LOINC EOS % 1.4 % L=0.0 H=8.0 BASO % 0.5 % L=0.0 H=3.0 IG % 0.3 % L=0.0 H=1.1 2514-8 LOINC NRBC % 0.0 % L=0.0 H=0.0 43940-2 LOINC NEUT abs count 4.6 th/cmm L=1.6 H=8.4 751-8 LOINC LYMPH abs count 0.9 th/cmm L=1.5 H=4.0 731-0 LOINC L MONO abs count 0.3 th/cmm L=0.2 H=1.0 742-7 LOINC EOS abs count 0.1 th/cmm L=0.0 H=0.5 711-2 LOINC BASO abs count 0.0 th/cmm L=0.0 H=0.2 704-7 LOINC IG abs count 0.0 th/cmm L=0.0 H=0.1 60931-7 LOINC NRBC abs count 0.0 mil/cmm L=0.0 H=0.0 75609-6 LOINC RBC 3.33 mil/cmm L=3.90 H=5.40 789-8 LOINC L HEMOGLOBIN 7.5 gm/dL L=12.0 H=16.0 718-7 LOINC L HEMATOCRIT 27 % L=37 H=47 4544-3 LOINC L MCV 81 fL L=82 H=92 787-2 LOINC L MCH 22.5 pg L=27.0 H=31.0 785-6 LOINC L MCHC 28.0 % L=32.0 H=36.0 786-4 LOINC L RDW-SD 59.7 fL L=39.0 H=49.0 788-0 LOINC H PLATELET COUNT DNR L=150 H=450 777-[address] invalid Platelet est. Adequate Giant plts present Anisocytosis 1+ Hypochromia 2+ CORRECTED Social History Type Status Start Date End Date Code Code Syst em Smoking History Current every day smoker 819724327 SNOMED CT Sex Female Assessment You had [...] Date Status Code Code System NIDDM active 30313408 SNOMED-CT CAD active 64641951 SNOMED-CT MYOCARDIAL INFARCT active 71077404 S NOMED-CT GERD active 674904084 SNOMED-CT DEPRESSION active 06220274 SNOMED-CT HIGH CHOLESTEROL 05/01/2023 resolved 65995562 SN OMED-CT STENTED ARTERY 05/01/2023 resolved 431574173 SNOM ED-CT COPD 05/01/2023 resolved 59194364 SNOMED-CT Allergies and Adverse Reactions Allergy Substance Reaction Severity Start Date Concern Status Code Code Syste m MORPHINE Vomiting (SNOMED-CT: 449153289) Moderate Active 7052 RxNorm LATEX Active 1401154 RxNorm BAND-AID BRAND ADHESIVE BANDAGES Moderate Active 3012459 RxNorm Plan of Treatment MRI L SPINE [...] Code Code Sys tem Iron deficiency anemia 05/12/2023 35279042 SNOME D-CT Personal Care Team Section Performer Name Performer Role Active Date Inactive Da te
--- OUTSIDE RECORDS SUMMARY | 2023-09-19 15:58 | XMS_ITS ---
Author Name Unknown Address [address] [place] [address] [phone] Phone Organization Unknown Address [address] [place] [address] [phone] Phone Care Team Providers Care Sld Inclusion Teacher Name Role Phone LETITIA Gaspar Attending Unavailable Results MR LS SPINE WO CONTRAST - Co mpleted: 03/12/2023 08:39 LOINC: [facility] [place], [place] [address] PACS CYTOGENETICIST REPORT Patient Name: VIKRAM CLIFFORD MRN: Sex: : Age: [id number] F [id number] Account: Accession: Admit: StayType: [id number] 03/12/2023 O/P Ordered: Order ID: Submitted: Ordering Provider: 03/12/2023 07:54 [id number] TONIA ALBERTS Completed: Technologist: Resulted: 03/12/2023 08:39 AXH 03/12/2023 08:40 Study Description: MR LS SPINE WO CONTRAST Study Reason: Radicalopathy TECNIQUE: Multiplanar multiple pulse sequences. Study Description: MR LS SPINE WO CONTRAST Study Reason: Radicalopathy TECHNIQUE: Multiplanar multisequence MRI of the Lumbar spine was performed. COMPARISON: No exams were available for comparison FINDINGS: Bones: The last intervertebral disc space is designated the L5/S1 level for the numbering purpose of this examination. The vertebral body heights are well maintained. Alignment is satisfactory. Patchy marrow signal on T1 and T2 weighted images without evidence of focal suspicious area of high signal on STIR images. Findings may represent patchy osteoporosis and/or patchy red marrow reconversion. Cord: The conus tip ends at the [T12 level. It is of normal size and signal intensity. T12-L1: No disc herniations or bulges are present. No central spinal canal or neural foraminal stenosis. L1-2: No disc herniations or bulges are present. No central spinal canal or neural foraminal stenosis. L2-3: No disc herniations or bulges are present. No central spinal canal or neural foraminal stenosis. L3-4: Mild to moderate loss of disc height. Small endplate osteophytes and concentric disc bulging. Mild bilateral neural foraminal narrowing. Facet degenerative changes. Minimal central canal stenosis. L4-5: No focal disc herniation. Minimal disc bulging. Facet degenerative changes. Slight central canal stenosis. No neural foraminal narrowing. L5-S1: [[No disc herniations or bulges are present.] No central spinal canal or neural foraminal stenosis.]] Soft tissues: [The visualized SI joints and sacrum are well maintained. The paraspinal soft tissues are unremarkable. IMPRESSION: Moderate degenerative disc changes at L3-4 cause mild bilateral neural foraminal narrowing. Facet degenerative changes at L3-4 and L4-5. Slight central canal stenosis L3-4 and L4-5. No focal disc herniation at any level. Report Digitally Signed by Tawana Chávez on 03/12/2023 08:40 AM EST Social History Type Status Start Date End Date Code Code Syst em Smoking History Current every day smoker 654874290 SNOMED CT Sex Female Assessment You had [...] Date Status Code Code System NIDDM active 87800565 SNOMED-CT CAD active 52952807 SNOMED-CT MYOCARDIAL INFARCT active 67548903 S NOMED-CT GERD active 963195789 SNOMED-CT DEPRESSION active 27360186 SNOMED-CT HIGH CHOLESTEROL 05/01/2023 resolved 22461484 SN OMED-CT STENTED ARTERY 05/01/2023 resolved 130645969 SNOM ED-CT COPD 05/01/2023 resolved 03455292 SNOMED-CT Allergies and Adverse Reactions Allergy Substance Reaction Severity Start Date Concern Status Code Code Syste m MORPHINE Vomiting (SNOMED-CT: 163255539) Moderate Active 7052 RxNorm LATEX Active 7378936 RxNorm BAND-AID BRAND ADHESIVE BANDAGES Moderate Active 4236960 RxNorm Plan of Treatment MRI L SPINE [...] Diagnosis Start Date Code Code Sys tem Degeneration of lumbar intervertebral disc 03/12/2023 62598873 SNOMED-CT Personal Care Team Section Performer Name Performer Role Active Date Inactive Da beto
--- OUTSIDE RECORDS SUMMARY | 2023-09-19 15:58 | XMS_ITS ---
Author Name Unknown Address [address] [place] [address] [phone] Phone Organization Unknown Address [address] [place] [address] [phone] Phone Care Team Providers Care Payable Representative Name Role Phone STACIA MCCURDY Registered Nurse Unavailable DARLING AGUILERA Attending Unavailable LETITIA Gaspar Primary Unavailable UNLISTED PROVIDER - REQUESTED Xhandoff Un available Results BLOOD BANK REPORT OF UNITS A JUANA* - Collect Date/Time: 05/01/2023 11:50 [facility] ID: [id number] [address] [place] [address], [id number] LOINC: Test Value Unit Reference Range Code Code System Flag Component Packed RBCs Leukopoor Blood Group A 883-9 LOINC Rh (D) NEGATIVE 82341-1 LOINC Antibody Screen. POSITIVE Antibody Id. NON SPECIFIC COLD AGGLUTININ TYPE AND SCREEN* - Collect D ate/Time: 05/01/2023 11:50 [facility] ID: [id number] [address] [place] [address], [id number] LOINC: Test Value Unit Reference Range Code Code System Flag Blood Group A 883-9 LOINC Rh (D) NEGATIVE 40489-6 LOINC Antibody Screen POSITIVE 1005-8 LOINC Antibody Id. NON SPECIFIC COLD AGGLUTININ CBC W/ DIFFERENTIAL* - Colle ct Date/Time: 05/01/2023 11:50 [facility] ID: [id number] [address] [place] [address], 5661 LOINC: 55524-0 Test Value Unit Reference Range Code Code System Flag WBC 5.28 th/cmm L=5.00 H=10.00 6690-2 LOINC NEUT % 80.4 % L=40.0 H=80.0 H LYMPH % 13.3 % L=10.0 H=50.0 MONO % 4.4 % L=2.0 H=12.0 36415-2 LOINC EOS % 1.3 % L=0.0 H=8.0 BASO % 0.2 % L=0.0 H=3.0 IG % 0.4 % L=0.0 H=1.1 2514-8 LOINC NRBC % 0.0 % L=0.0 H=0.0 73769-7 LOINC NEUT abs count 4.3 th/cmm L=1.6 H=8.4 751-8 LOINC LYMPH abs count 0.7 th/cmm L=1.5 H=4.0 731-0 LOINC L MONO abs count 0.2 th/cmm L=0.2 H=1.0 742-7 LOINC EOS abs count 0.1 th/cmm L=0.0 H=0.5 711-2 LOINC BASO abs count 0.0 th/cmm L=0.0 H=0.2 704-7 LOINC IG abs count 0.0 th/cmm L=0.0 H=0.1 98278-5 LOINC NRBC abs count 0.0 mil/cmm L=0.0 H=0.0 53301-6 LOINC RBC 2.98 mil/cmm L=3.90 H=5.40 789-8 LOINC L HEMOGLOBIN 6.3 gm/dL L=12.0 H=16.0 718-7 LOINC L HEMATOCRIT 23 % L=37 H=47 4544-3 LOINC LL MCV 77 fL L=82 H=92 787-2 LOINC L MCH 21.1 pg L=27.0 H=31.0 785-6 LOINC L MCHC 27.6 % L=32.0 H=36.0 786-4 LOINC L RDW-SD 51.1 fL L=39.0 H=49.0 788-0 LOINC H PLATELET COUNT 214 th/cmm L=150 H=450 777-3 LOINC Microcytes 1+ Polychromia 1+ Hypochromia 2+ Schistocytes 1+ Ovalocytes 1+ Tear drops 1+ Stomatocytes 2+ Social History Type Status Start Date End Date Code Code Syst em Smoking History Current every day smoker 221415588 SNOMED CT Sex Female Vital Signs Vital Sign Value Unit Tunica Value Tunica Unit Date/Time Recent/Initial? Code Code System Body Mass Index 29.26 kg/m2 05/01/2023 11:53 Initial 91864 -5 LOINC Systolic Blood Pressure 106 mm[Hg] 05/01/2023 13:00 Most Recent 8480- 6 LOINC Diastolic Blood Pressure 49 mm[Hg] 05/01/2023 13:00 Most Recent 8462- 4 LOINC Systolic Blood Pressure 84 mm[Hg] 05/01/2023 11:53 Initial 8480- 6 LOINC Diastolic Blood Pressure 68 mm[Hg] 05/01/2023 11:53 Initial 8462- 4 LOINC Body Surface Area 1.78 m2 05/01/2023 11:53 Initial 3140- 1 LOINC Height 157.480 0 cm 62.00 in 05/01/2023 11:53 Initial 8302- 2 LOINC O2 Saturation 100 % 2023 13:00 Initial 14873 -5 LOINC Pulse 78.0 /min 05/01/2023 13:00 Most Recent 8867- 4 LOINC Pulse 81.0 /min 05/01/2023 11:53 Initial 8867- 4 LOINC Respiration 18 /min 05/01/19 24 13:00 Most Recent 9279- 1 LOINC Respiration 23 /min 05/01/19 24 11:53 Initial 9279- 1 LOINC Temperature 36.2 Maliha 97.2 F 05/01/19 11:53 Initial 8310- 5 LOINC Weight 72.57 kg 160.00 lbs 05/01/2023 11:53 Initial 50614 -7 LOINC Assessment You had the following problems:NIDDMCADMYOCARDIAL INFARCTGERDDEPRESSION Hospital Discharge Instructions Should you have any questions prior to discharge, please contact a member of your healthcare team. If you have left the hospital and have any questions, please contact your primary care physician. Reason For Referral No Data Found Procedures Procedure Name Date Status Code Code Batool jack Carpal tunnel completed 51575226 SNOMEDCT Problems Problem Start Date Resolved Date Status Code Code System NIDDM active 04879124 SNOMED-CT CAD active 91077135 SNOMED-CT MYOCARDIAL INFARCT active 84118401 S NOMED-CT GERD active 662989996 SNOMED-CT DEPRESSION active 38780609 SNOMED-CT HIGH CHOLESTEROL 05/01/2023 resolved 01917262 SN OMED-CT STENTED ARTERY 05/01/2023 resolved 932502873 SNOM ED-CT COPD 05/01/2023 resolved 22613018 SNOMED-CT Allergies and Adverse Reactions Allergy Substance Reaction Severity Start Date Concern Status Code Code Batool jack MORPHINE Vomiting (SNOMED-CT: 992287115) Moderate Active 7052 RxNorm LATEX Active 9034692 RxNorm BAND-AID BRAND ADHESIVE BANDAGES Moderate Active 8340737 RxNorm Plan of Treatment MRI L SPINE [...] Diagnosis Start Date Code Code Sys tem Anemia 05/01/2023 158069237 SNOMED-CT Personal Care Team Section Performer Name Performer Role Active Date Inactive Da te
--- OUTSIDE RECORDS SUMMARY | 2023-09-19 15:59 | XMS_ITS ---
Author Name Unknown Address [address] [place] [address] [phone] Phone Organization Unknown Address [address] [place] [address] [phone] Phone Care Team Providers Care Log Yard Manager Name Role Phone AMINAH Lai Attending Unavailable LETITIA Gaspar Primary Unavailable Social History Type Status Start Date End Date Code Code Syst em Smoking History Current every day smoker 176947824 SNOMED CT Sex Female Assessment You had [...] Date Status Code Code System NIDDM active 27401357 SNOMED-CT CAD active 40660155 SNOMED-CT MYOCARDIAL INFARCT active 86947150 S NOMED-CT GERD active 586135828 SNOMED-CT DEPRESSION active 76638620 SNOMED-CT HIGH CHOLESTEROL 05/01/2023 resolved 26571842 SN OMED-CT STENTED ARTERY 05/01/2023 resolved 868869857 SNOM ED-CT COPD 05/01/2023 resolved 60154017 SNOMED-CT Allergies and Adverse Reactions Allergy Substance Reaction Severity Start Date Concern Status Code Code Syste m MORPHINE Vomiting (SNOMED-CT: 017328177) Moderate Active 7052 RxNorm LATEX Active 2564035 RxNorm BAND-AID BRAND ADHESIVE BANDAGES Moderate Active 3979356 RxNorm Plan of Treatment MRI L SPINE [...] Code Sys tem Iron deficiency anemia, unspecified 04/11/2022 SNOMED-CT Personal Care Team Section Performer Name Performer Role Active Date Inactive Da te
--- OUTSIDE RECORDS SUMMARY | 2023-09-19 15:59 | XMS_ITS ---
Author Name Unknown Address [address] [place] [address] [phone] Phone Organization Unknown Address [address] [place] [address] [phone] Phone Care Team Providers Care Program Engineer Name Role Phone AMINAH Lai NP Attending Unavailable LETITIA RANDALL Primary Unavailable Immunization Immunization Date Status Additional Notes Code Code System COVID-19, mRNA, LNP-S, PF, 1 00 mcg/0.5mL dose or 50 mcg/0.25mL dose 06/21/2020 Completed 207 CVX COVID-19, mRNA, LNP-S, PF, 1 00 mcg/0.5mL dose or 50 mcg/0.25mL dose 07/19/2020 Completed 207 CVX Social History Type Status Start Date End Date Code Code Syst em Smoking History Current every day smoker 770812421 SNOMED CT Sex Female Assessment You had [...] Date Status Code Code System NIDDM active 72774802 SNOMED-CT CAD active 67390995 SNOMED-CT MYOCARDIAL INFARCT active 24884879 S NOMED-CT GERD active 171288255 SNOMED-CT DEPRESSION active 56527678 SNOMED-CT HIGH CHOLESTEROL 05/01/2023 resolved 05201997 SN OMED-CT STENTED ARTERY 05/01/2023 resolved 352576168 SNOM ED-CT COPD 05/01/2023 resolved 74949821 SNOMED-CT Allergies and Adverse Reactions Allergy Substance Reaction Severity Start Date Concern Status Code Code Syste m MORPHINE Vomiting (SNOMED-CT: 891805529) Moderate Active 7052 RxNorm LATEX Active 9573421 RxNorm BAND-AID BRAND ADHESIVE BANDAGES Moderate Active 5743881 RxNorm Plan of Treatment MRI L SPINE [...] Code Sys tem Iron deficiency anemia, unspecified 09/08/2020 SNOMED-CT Personal Care Team Section Performer Name Performer Role Active Date Inactive Da beto
--- OUTSIDE RECORDS SUMMARY | 2023-09-19 15:59 | XMS_ITS ---
Author Name Unknown Address [address] [place] [address] [phone] Phone Organization Unknown Address [address] [place] [address] [phone] Phone Care Team Providers Care Environmental Permitting Specialist Name Role Phone AMINAH Lai NP Attending [...] em Smoking History Current every day smoker 379784491 SNOMED CT Sex Female Assessment You had [...] Date Status Code Code System NIDDM active 09377321 SNOMED-CT CAD active 78776292 SNOMED-CT MYOCARDIAL INFARCT active 86214318 S NOMED-CT GERD active 663743527 SNOMED-CT DEPRESSION active 23445810 SNOMED-CT HIGH CHOLESTEROL 05/01/2023 resolved 20386785 SN OMED-CT STENTED ARTERY 05/01/2023 resolved 131842474 SNOM ED-CT COPD 05/01/2023 resolved 88764519 SNOMED-CT Allergies and Adverse Reactions Allergy Substance Reaction Severity Start Date Concern Status Code Code Syste m MORPHINE Vomiting (SNOMED-CT: 913821154) Moderate Active 7052 RxNorm LATEX Active 4134902 RxNorm BAND-AID BRAND ADHESIVE BANDAGES Moderate Active 7494636 RxNorm Plan of Treatment MRI L SPINE [...] Code Sys tem Iron deficiency anemia, unspecified 09/15/2020 SNOMED-CT Personal Care Team Section Performer Name Performer Role Active Date Inactive Da beto
--- OUTSIDE RECORDS SUMMARY | 2023-09-19 16:00 | XMS_ITS ---
Author Name Unknown Address [address] [place] [address] [phone] Phone Organization Unknown Address [address] [place] [address] [phone] Phone Care Team Providers Care Care Program Resident Name Role Phone APOORVA Blanton MD Attending Unavailable LETITIA RANDALL Primary Unavailable Immunization [...] em Smoking History Current every day smoker 874837017 SNOMED CT Sex Female Assessment You had [...] Date Status Code Code System NIDDM active 96781764 SNOMED-CT CAD active 96205285 SNOMED-CT MYOCARDIAL INFARCT active 03305416 S NOMED-CT GERD active 630723933 SNOMED-CT DEPRESSION active 33350523 SNOMED-CT HIGH CHOLESTEROL 05/01/2023 resolved 08159127 SN OMED-CT STENTED ARTERY 05/01/2023 resolved 436960057 SNOM ED-CT COPD 05/01/2023 resolved 59074927 SNOMED-CT Allergies and Adverse Reactions Allergy Substance Reaction Severity Start Date Concern Status Code Code Syste m MORPHINE Vomiting (SNOMED-CT: 730317535) Moderate Active 7052 RxNorm LATEX Active 3392433 RxNorm BAND-AID BRAND ADHESIVE BANDAGES Moderate Active 4408236 RxNorm Plan of Treatment MRI L SPINE [...] Diagnosis Start Date Code Code Sys tem Moderate cervical dysplasia 11/01/2020 SNOMED-CT Personal Care Team Section Performer Name Performer Role Active Date Inactive Da beto
--- OUTSIDE RECORDS SUMMARY | 2023-09-19 16:01 | XMS_ITS ---
Author Name Unknown Address [address] [place] [address] [phone] Phone Organization Unknown Address [address] [place] [address] [phone] Phone Care Team Providers Care Wage Conciliator Name Role Phone APOORVA Blanton MD Attending Unavailable LETITIA RANDALL Primary Unavailable Immunization Immunization Date Status Additional Notes Code Code System COVID-19, mRNA, LNP-S, PF, 1 00 mcg/0.5mL dose or 50 mcg/0.25mL dose 06/21/2020 Completed 207 CVX COVID-19, mRNA, LNP-S, PF, 1 00 mcg/0.5mL dose or 50 mcg/0.25mL dose 07/19/2020 Completed 207 CVX Results CBC W/ DIFFERENTIAL - Collec t Date/Time: 11/14/2020 11:20 [facility] ID: [id number] [address] [place] [address], 5661 LOINC: 98765-0 Test Value Unit Reference Range Code Code System Flag WBC 7.55 th/cmm L=5.00 H=10.00 6690-2 LOINC NEUT % 74.1 % L=40.0 H=80.0 LYMPH % 14.4 % L=10.0 H=50.0 MONO % 8.5 % L=2.0 H=12.0 93419-0 LOINC EOS % 1.6 % L=0.0 H=8.0 BASO % 0.5 % L=0.0 H=3.0 IG % 0.9 % L=0.0 H=1.1 4894-8 LOINC NRBC % 0.0 % L=0.0 H=0.0 09608-0 LOINC NEUT abs count 5.6 th/cmm L=1.6 H=8.4 751-8 LOINC LYMPH abs count 1.1 th/cmm L=1.5 H=4.0 731-0 LOINC L MONO abs count 0.6 th/cmm L=0.2 H=1.0 742-7 LOINC EOS abs count 0.1 th/cmm L=0.0 H=0.5 711-2 LOINC BASO abs count 0.0 th/cmm L=0.0 H=0.2 704-7 LOINC IG abs count 0.1 th/cmm L=0.0 H=0.1 32259-4 LOINC NRBC abs count 0.0 mil/cmm L=0.0 H=0.0 07675-0 LOINC RBC 4.15 mil/cmm L=3.90 H=5.40 789-8 LOINC HEMOGLOBIN 10.3 gm/dL L=12.0 H=16.0 718-7 LOINC L HEMATOCRIT 36 % L=37 H=47 4544-3 LOINC L MCV 87 fL L=82 H=92 787-2 LOINC MCH 24.8 pg L=27.0 H=31.0 785-6 LOINC L MCHC 28.6 % L=32.0 H=36.0 786-4 LOINC L RDW-SD 63.2 fL L=39.0 H=49.0 788-0 LOINC H PLATELET COUNT 205 th/cmm L=150 H=450 777-3 LOINC Anisocytosis 1+ Polychromia 1+ Schistocytes 1+ Tear drops 1+ Social History Type Status Start Date End Date Code Code Syst em Smoking History Current every day smoker 643848795 SNOMED CT Sex Female Assessment You had [...] Date Status Code Code System NIDDM active 46230866 SNOMED-CT CAD active 23218327 SNOMED-CT MYOCARDIAL INFARCT active 84099171 S NOMED-CT GERD active 991631879 SNOMED-CT DEPRESSION active 37943522 SNOMED-CT HIGH CHOLESTEROL 05/01/2023 resolved 96970032 SN OMED-CT STENTED ARTERY 05/01/2023 resolved 502649731 SNOM ED-CT COPD 05/01/2023 resolved 64199258 SNOMED-CT Allergies and Adverse Reactions Allergy Substance Reaction Severity Start Date Concern Status Code Code Syste m MORPHINE Vomiting (SNOMED-CT: 024047925) Moderate Active 7052 RxNorm LATEX Active 4128972 RxNorm BAND-AID BRAND ADHESIVE BANDAGES Moderate Active 1921790 RxNorm Plan of Treatment MRI L SPINE [...] Diagnosis Start Date Code Code Sys tem Left lower quadrant pain 11/14/2020 SNO MED-CT Personal Care Team Section Performer Name Performer Role Active Date Inactive Da beto
--- OUTSIDE RECORDS SUMMARY | 2023-09-19 16:01 | XMS_ITS ---
Author Name Unknown Address [address] [place] [address] [phone] Phone Organization Unknown Address [address] [place] [address] [phone] Phone Care Team Providers Care Vacuum Pan Operator Name Role Phone AMINAH Lai NP Attending [...] em Smoking History Current every day smoker 505531158 SNOMED CT Sex Female Assessment You had [...] Date Status Code Code System NIDDM active 98169158 SNOMED-CT CAD active 30154854 SNOMED-CT MYOCARDIAL INFARCT active 96916442 S NOMED-CT GERD active 533674387 SNOMED-CT DEPRESSION active 33971374 SNOMED-CT HIGH CHOLESTEROL 05/01/2023 resolved 28799213 SN OMED-CT STENTED ARTERY 05/01/2023 resolved 022672924 SNOM ED-CT COPD 05/01/2023 resolved 93704546 SNOMED-CT Allergies and Adverse Reactions Allergy Substance Reaction Severity Start Date Concern Status Code Code Syste m MORPHINE Vomiting (SNOMED-CT: 920048872) Moderate Active 7052 RxNorm LATEX Active 6176247 RxNorm BAND-AID BRAND ADHESIVE BANDAGES Moderate Active 7406705 RxNorm Plan of Treatment MRI L SPINE [...] Code Sys tem Iron deficiency anemia, unspecified 11/10/2020 SNOMED-CT Personal Care Team Section Performer Name Performer Role Active Date Inactive Da beto
--- OUTSIDE RECORDS SUMMARY | 2023-09-19 16:01 | XMS_ITS ---
Author Name Unknown Address [address] [place] [address] [phone] Phone Organization Unknown Address [address] [place] [address] [phone] Phone Care Team Providers Care Chiropractor Sole Practitioner Name Role Phone APOORVA Blanton MD Attending [...] em Smoking History Current every day smoker 232099922 SNOMED CT Sex Female Vital Signs Vital Sign Value Unit [place] Value Bur[place]on Unit Date/Time Recent/Initial? Code Code System Body Mass Index 32.85 kg/m2 10/26/2020 08:41 Initial 07161 -5 LOINC Systolic Blood Pressure 157 mm[Hg] 11/01/2020 08:28 Initial 8480- 6 LOINC Diastolic Blood Pressure 74 mm[Hg] 11/01/2020 08:28 Initial 8462- 4 LOINC Body Surface Area 1.89 m2 10/26/2020 08:41 Initial 3140- 1 LOINC Height 157.480 0 cm 62.00 in 10/26/2020 08:41 Initial 8302- 2 LOINC O2 Saturation 96 % 2020 08:28 Initial 11658 -5 LOINC Pulse 77.0 /min 11/01/2020 08:28 Initial 8867- 4 LOINC Respiration 16 /min 11/02/19 08:28 Initial 9279- 1 LOINC Temperature 36.1 Maliha 97.0 F 11/02/19 08:28 Initial 8310- 5 LOINC Weight 81.47 kg 179.60 lbs 10/26/2020 08:41 Initial 90604 -7 LOINC Assessment You had the following problems:NIDDMCADMYOCARDIAL INFARCTGERDDEPRESSION Hospital Discharge Instructions Should you have any questions prior to discharge, please contact a member of your healthcare team. If you have left the hospital and have any questions, please contact your primary care physician. Reason For Referral No Data Found Procedures Procedure Name Date Status Code Code Batool jack Colposcopy, Cervix w/Upper A djacent Vagina; w/Loop Electrode Biopsy(s), Cervix 11/01/2020 completed 23161 CPT Problems Problem Start Date Resolved Date Status Code Code System NIDDM active 06837438 SNOMED-CT CAD active 01449333 SNOMED-CT MYOCARDIAL INFARCT active 30093583 S NOMED-CT GERD active 436509945 SNOMED-CT DEPRESSION active 26013903 SNOMED-CT HIGH CHOLESTEROL 05/01/2023 resolved 14939146 SN OMED-CT STENTED ARTERY 05/01/2023 resolved 335310038 SNOM ED-CT COPD 05/01/2023 resolved 20698897 SNOMED-CT Allergies and Adverse Reactions Allergy Substance Reaction Severity Start Date Concern Status Code Code Batool jack MORPHINE Vomiting (SNOMED-CT: 249334869) Moderate Active 7052 RxNorm LATEX Active 4783640 RxNorm BAND-AID BRAND ADHESIVE BANDAGES Moderate Active 6082736 RxNorm Plan of Treatment MRI L SPINE [...]
--- OUTSIDE RECORDS SUMMARY | 2023-09-19 16:02 | XMS_ITS ---
Author Name Unknown Address [address] [place] [address] [phone] Phone Organization Unknown Address [address] [place] [address] [phone] Phone Care Team Providers Care Cooling Pan Tender Name Role Phone AMINAH Lai NP Attending [...] em Smoking History Current every day smoker 800409129 SNOMED CT Sex Female Assessment You had [...] Date Status Code Code System NIDDM active 70898437 SNOMED-CT CAD active 00573879 SNOMED-CT MYOCARDIAL INFARCT active 79002728 S NOMED-CT GERD active 703223088 SNOMED-CT DEPRESSION active 70238468 SNOMED-CT HIGH CHOLESTEROL 05/01/2023 resolved 37888776 SN OMED-CT STENTED ARTERY 05/01/2023 resolved 413056589 SNOM ED-CT COPD 05/01/2023 resolved 77067713 SNOMED-CT Allergies and Adverse Reactions Allergy Substance Reaction Severity Start Date Concern Status Code Code Syste m MORPHINE Vomiting (SNOMED-CT: 468598150) Moderate Active 7052 RxNorm LATEX Active 6899206 RxNorm BAND-AID BRAND ADHESIVE BANDAGES Moderate Active 0615278 RxNorm Plan of Treatment MRI L SPINE [...] Code Sys tem Iron deficiency anemia, unspecified 11/16/2020 SNOMED-CT Personal Care Team Section Performer Name Performer Role Active Date Inactive Da beto
[2023-09-19 20:30] LABS: HCT 28.5 % (36.0-46.0); MCH 32.6 pg (27.0-33.0); MCHC 31.6 % (32.0-36.0); MCV 103 fL (80-95); MPV 10.7 fL (8.0-11.0); Platelet Count 204 10^3/uL (130-400); RBC 2.76 10^6/uL (3.93-5.22); RDW 13.9 % (11.7-14.6); RDW-SD 52.6 fL; WBC 4.83 10^3/uL (4.4-10.8)
[2023-09-19 20:44] LABS: Iron 36 ug/dL (50-170); Total Iron Binding Capacity 309 ug/dL (250-450); Transferrin Sat 12 % (15-50)
== END 2023-09-19 15:53 | disposition home or self-care (01) ==
LOC: NCHCN 15:52
PROVIDERS: PCP Family Medicine; Visit Provider Family Medicine
DX: D50.9 Iron deficiency anemia, unspecified (principal); Z12.4 Encounter for screening for malignant neoplasm of cervix; R87.610 Atypical squamous cells of undetermined significance on cytologic smear of cervix (ASC-US)
CPT/HCPCS: 85027; 88142; 83540; 83550

== ENCOUNTER 2023-12-04 21:38 | Outpatient (REF) | payer MEDICARE, SELFPAY ==
--- OUTSIDE RECORDS SUMMARY | 2023-12-04 21:41 | XMS_ITS ---
Author Organization Unknown Address [address] [place] [address] [phone] Phone Care Team Providers Care Inclusion Special Educator Name Role Phone AMINAH TAVERA Joelle Attending Unavailable LETITIA Gaspar Primary Unavailable Social History Type Status Start Date End Date Code Code Syst em Smoking History Current every day smoker 502166383 SNOMED CT Sex Female Assessment You had [...] Date Status Code Code System NIDDM active 08459933 SNOMED-CT CAD active 65666842 SNOMED-CT MYOCARDIAL INFARCT active 27598114 S NOMED-CT GERD active 111525324 SNOMED-CT DEPRESSION active 61614768 SNOMED-CT HIGH CHOLESTEROL 05/01/2023 resolved 62884189 SN OMED-CT STENTED ARTERY 05/01/2023 resolved 003977793 SNOM ED-CT COPD 05/01/2023 resolved 23686367 SNOMED-CT Allergies and Adverse Reactions Allergy Substance Reaction Severity Start Date Concern Status Code Code Syste m MORPHINE Vomiting (SNOMED-CT: 411306626) Moderate Active 7052 RxNorm LATEX Active 1391131 RxNorm BAND-AID BRAND ADHESIVE BANDAGES Moderate Active 2587128 RxNorm Plan of Treatment MRI L SPINE [...]
--- OUTSIDE RECORDS SUMMARY | 2023-12-04 21:41 | XMS_ITS ---
Author Organization Unknown Address [address] [place] [address] [phone] Phone Care Team Providers Care Housekeeping Aide Name Role Phone POLLO Cooper Attending Unavailable LETITIA Gaspar Primary Unavailable Social History Type Status Start Date End Date Code Code Syst em Smoking History Current every day smoker 134958327 SNOMED CT Sex Female Assessment You had [...] Date Status Code Code System NIDDM active 32933311 SNOMED-CT CAD active 46054865 SNOMED-CT MYOCARDIAL INFARCT active 57583507 S NOMED-CT GERD active 307249547 SNOMED-CT DEPRESSION active 07685218 SNOMED-CT HIGH CHOLESTEROL 05/01/2023 resolved 97758917 SN OMED-CT STENTED ARTERY 05/01/2023 resolved 760246477 SNOM ED-CT COPD 05/01/2023 resolved 88600643 SNOMED-CT Allergies and Adverse Reactions Allergy Substance Reaction Severity Start Date Concern Status Code Code Syste m MORPHINE Vomiting (SNOMED-CT: 455114208) Moderate Active 7052 RxNorm LATEX Active 5240188 RxNorm BAND-AID BRAND ADHESIVE BANDAGES Moderate Active 2720444 RxNorm Plan of Treatment MRI L SPINE W/O CONTRAST 03/12/2023 NM BONE SCAN WHOLE BODY 06/06/2022 NM BONE SCAN WHOLE BODY 06/06/2022 NM BONE SCAN WHOLE BODY 06/06/2022 NM BONE SCAN WHOLE BODY 06/06/2022 CT CHEST W/O CONTRAST 05/23/2022 BONE DENSITY DEXA SPINE & HIP 03/08/[address] CHEST W/O CONTRAST 03/20/2022 BONE DENSITY DEXA SPINE & HIP 2 CT LOWER EXTREM W/ CONTRAST 12/27/2021 Encounters Encounter Diagnosis Start Date Code Code Sys tem Refusal of treatment by patient 04/16/2021 [id number] SNOMED-CT Personal Care Team Section Performer Name Performer Role Active Date Inactive Da te
--- OUTSIDE RECORDS SUMMARY | 2023-12-04 21:41 | XMS_ITS ---
Author Organization Unknown Address [address] [place] [address] [phone] Phone Care Team Providers Care Machine Icer Name Role Phone AMINAH TAVERA Joelle Attending Unavailable LETITIA Gaspar Primary Unavailable Social History Type Status Start Date End Date Code Code Syst em Smoking History Current every day smoker 317723220 SNOMED CT Sex Female Assessment You had [...] Date Status Code Code System NIDDM active 90266212 SNOMED-CT CAD active 11176670 SNOMED-CT MYOCARDIAL INFARCT active 44370637 S NOMED-CT GERD active 345560461 SNOMED-CT DEPRESSION active 79881180 SNOMED-CT HIGH CHOLESTEROL 05/01/2023 resolved 72007310 SN OMED-CT STENTED ARTERY 05/01/2023 resolved 483614135 SNOM ED-CT COPD 05/01/2023 resolved 94680286 SNOMED-CT Allergies and Adverse Reactions Allergy Substance Reaction Severity Start Date Concern Status Code Code Syste m MORPHINE Vomiting (SNOMED-CT: 463722856) Moderate Active 7052 RxNorm LATEX Active 0898898 RxNorm BAND-AID BRAND ADHESIVE BANDAGES Moderate Active 5623680 RxNorm Plan of Treatment MRI L SPINE [...]
--- OUTSIDE RECORDS SUMMARY | 2023-12-04 21:41 | XMS_ITS ---
Author Organization Unknown Address [address] [place] [address] [phone] Phone Care Team Providers Care Press Washer Name Role Phone RIKKI WRIGHT Attending Unavailable LETITIA Gaspar Primary Unavailable Results TSH THYROID STIMULATING HORM ONE* - Collect Date/Time: 12/25/2021 09:53 [facility] ID: [id number] [address] [place] [address], [address] LOINC: 3014-8 Test Value Unit Reference Range Code Code System Flag TSH 1.411 uIU/mL L=0.360 H=3.740 3014-8 LOINC SED RATE* - Collect Date/Shahriar e: 12/25/2021 09:53 [facility] ID: [id number] [address] [place] [address], [address] LOINC: 4537-7 Test Value Unit Reference Range Code Code System Flag SED. RATE 18 mm/hr L=0 H=30 4537-7 LOINC CBC W/ DIFFERENTIAL* - Colle ct Date/Time: 12/25/2021 09:53 [facility] ID: [id number] [address] [place] [address], [address] LOINC: 34284-9 Test Value Unit Reference Range Code Code System Flag WBC 5.01 th/cmm L=5.00 H=10.00 6690-2 LOINC NEUT % 69.0 % L=40.0 H=80.0 LYMPH % 20.4 % L=10.0 H=50.0 MONO % 6.8 % L=2.0 H=12.0 91917-6 LOINC EOS % 3.0 % L=0.0 H=8.0 BASO % 0.6 % L=0.0 H=3.0 IG % 0.2 % L=0.0 H=1.1 2514-8 LOINC NRBC % 0.0 % L=0.0 H=0.0 66811-3 LOINC NEUT abs count 3.5 th/cmm L=1.6 H=8.4 751-8 LOINC LYMPH abs count 1.0 th/cmm L=1.5 H=4.0 731-0 LOINC L MONO abs count 0.3 th/cmm L=0.2 H=1.0 742-7 LOINC EOS abs count 0.2 th/cmm L=0.0 H=0.5 711-2 LOINC BASO abs count 0.0 th/cmm L=0.0 H=0.2 704-7 LOINC IG abs count 0.0 th/cmm L=0.0 H=0.1 02247-4 LOINC NRBC abs count 0.0 mil/cmm L=0.0 H=0.0 01052-6 LOINC RBC 3.26 mil/cmm L=3.90 H=5.40 789-8 [...] L (CMP) - Collect Date/Time: 12/25/2021 09:53 [facility] ID: [id number] [address] [place], [place], [address] LOINC: 45391-5 Test Value Unit Reference Range Code Code [...] H=34 2028-9 LOINC ANION GAP 7.8 mmol/L 02740-4 LOINC CALCIUM SERUM 9.0 mg/dL L=8.2 H=10.2 90720-1 LOINC BILIRUBIN TOTAL 0.9 mg/dL L=0.0 H=1.3 1975-2 LOINC ALK. PHOS. 58 U/L L=46 H=116 6768-6 LOINC SGOT (AST) 9 U/L L=15 H=37 1920-8 LOINC L SGPT (ALT) 17 U/L L=12 H=78 1742-6 LOINC TOTAL PROTEIN 7.1 gm/dL L=6.0 H=8.0 2885-2 LOINC ALBUMIN 3.5 gm/dL L=3.4 H=5.0 1751-7 LOINC AGE 66 years eGFR (non-Afr.Amer.) 33 mL/min 77543-6 LOINC eGFR (Afr-Cambodian) 39 mL/min 17780-2 LOINC FERRITIN - Collect Date/Time : 12/25/2021 09:53 [facility] ID: [id number] [address] [place], [place], [address] LOINC: 2276-4 Test Value Unit Reference Range Code Code System Flag FERRITIN 6 ng/mL L=8 H=388 2276-4 LOINC L Social History Type Status Start Date End Date Code Code Syst em Smoking History Current every day smoker 473949758 SNOMED CT Sex Female Assessment You had [...] Date Status Code Code System NIDDM active 39394511 SNOMED-CT CAD active 19486868 SNOMED-CT MYOCARDIAL INFARCT active 45842195 S NOMED-CT GERD active 593729707 SNOMED-CT DEPRESSION active 12876444 SNOMED-CT HIGH CHOLESTEROL 05/01/2023 resolved 03790816 SN OMED-CT STENTED ARTERY 05/01/2023 resolved 728902600 SNOM ED-CT COPD 05/01/2023 resolved 43238280 SNOMED-CT Allergies and Adverse Reactions Allergy Substance Reaction Severity Start Date Concern Status Code Code Syste m MORPHINE Vomiting (SNOMED-CT: 362657703) Moderate Active 7052 RxNorm LATEX Active 5137837 RxNorm BAND-AID BRAND ADHESIVE BANDAGES Moderate Active 5168807 RxNorm Plan of Treatment MRI L SPINE [...] Code Sys tem Iron deficiency anemia 12/25/2021 27124702 SNOME D-CT Personal Care Team Section Performer Name Performer Role Active Date Inactive Da te
--- OUTSIDE RECORDS SUMMARY | 2023-12-04 21:42 | XMS_ITS ---
Author Organization Unknown Address [address] [place] [address] [phone] Phone Care Team Providers Care Art Gallery Internship Name Role Phone AMINAH TAVERA Joelle Attending Unavailable LETITIA Gaspar Primary Unavailable Social History Type Status Start Date End Date Code Code Syst em Smoking History Current every day smoker 975367499 SNOMED CT Sex Female Assessment You had [...] Date Status Code Code System NIDDM active 70309408 SNOMED-CT CAD active 04119961 SNOMED-CT MYOCARDIAL INFARCT active 80617140 S NOMED-CT GERD active 132770987 SNOMED-CT DEPRESSION active 01267390 SNOMED-CT HIGH CHOLESTEROL 05/01/2023 resolved 59442455 SN OMED-CT STENTED ARTERY 05/01/2023 resolved 768916378 SNOM ED-CT COPD 05/01/2023 resolved 61890789 SNOMED-CT Allergies and Adverse Reactions Allergy Substance Reaction Severity Start Date Concern Status Code Code Syste m MORPHINE Vomiting (SNOMED-CT: 763649155) Moderate Active 7052 RxNorm LATEX Active 2229760 RxNorm BAND-AID BRAND ADHESIVE BANDAGES Moderate Active 0450774 RxNorm Plan of Treatment MRI L SPINE [...]
--- OUTSIDE RECORDS SUMMARY | 2023-12-04 21:42 | XMS_ITS ---
Author Organization Unknown Address [address] [place] [address] [phone] Phone Care Team Providers Care 3Rd Pressman Name Role Phone LETITIA Gaspar Attending Unavailable Social History Type Status Start Date End Date Code Code Syst em Smoking History Current every day smoker 269852412 SNOMED CT Sex Female Assessment You had [...] Date Status Code Code System NIDDM active 72837327 SNOMED-CT CAD active 77462609 SNOMED-CT MYOCARDIAL INFARCT active 40474191 S NOMED-CT GERD active 865805120 SNOMED-CT DEPRESSION active 75100408 SNOMED-CT HIGH CHOLESTEROL 05/01/2023 resolved 49208105 SN OMED-CT STENTED ARTERY 05/01/2023 resolved 244658090 SNOM ED-CT COPD 05/01/2023 resolved 50925864 SNOMED-CT Allergies and Adverse Reactions Allergy Substance Reaction Severity Start Date Concern Status Code Code Syste m MORPHINE Vomiting (SNOMED-CT: 236883115) Moderate Active 7052 RxNorm LATEX Active 6318682 RxNorm BAND-AID BRAND ADHESIVE BANDAGES Moderate Active 3701728 RxNorm Plan of Treatment MRI L SPINE [...] Code Sys tem Canceled operative procedure 04/16/2022 86177016 SNOMED-CT Personal Care Team Section Performer Name Performer Role Active Date Inactive Da te
--- OUTSIDE RECORDS SUMMARY | 2023-12-04 21:42 | XMS_ITS ---
Author Organization Unknown Address [address] [place] [address] [phone] Phone Care Team Providers Care Grinder Watch Parts Name Role Phone RIKKI WRIGHT Attending Unavailable LETITIA Gaspar Primary Unavailable Social History Type Status Start Date End Date Code Code Syst em Smoking History Current every day smoker 375379891 SNOMED CT Sex Female Assessment You had [...] Date Status Code Code System NIDDM active 84269559 SNOMED-CT CAD active 75198040 SNOMED-CT MYOCARDIAL INFARCT active 53201238 S NOMED-CT GERD active 073694536 SNOMED-CT DEPRESSION active 31226871 SNOMED-CT HIGH CHOLESTEROL 05/01/2023 resolved 38461060 SN OMED-CT STENTED ARTERY 05/01/2023 resolved 641567903 SNOM ED-CT COPD 05/01/2023 resolved 81696601 SNOMED-CT Allergies and Adverse Reactions Allergy Substance Reaction Severity Start Date Concern Status Code Code Syste m MORPHINE Vomiting (SNOMED-CT: 462424816) Moderate Active 7052 RxNorm LATEX Active 7091201 RxNorm BAND-AID BRAND ADHESIVE BANDAGES Moderate Active 2943653 RxNorm Plan of Treatment MRI L SPINE [...]
--- OUTSIDE RECORDS SUMMARY | 2023-12-04 21:42 | XMS_ITS ---
Author Organization Unknown Address [address] [place] [address] [phone] Phone Care Team Providers Care Blast Furnace Auxiliaries Supervisor Name Role Phone RIKKI WRIGHT Attending Unavailable LETITIA Gaspar Primary Unavailable Results BUN/CREATININE RATIO FOR RAD IOLOGY* - Collect Date/Time: 12/27/2021 11:46 [facility] ID: [id number] [address] [place], [place], [address] LOINC: 3097-3 Test Value Unit Reference Range Code Code System Flag BUN 13 mg/dL L=6 H=25 3094-0 LOINC CREATININE 1.59 mg/dL L=0.51 H=0.95 2160-0 LOINC H BUN/CREATININE RATIO 8.2 3097-3 LOINC AGE 66 years eGFR (non-Afr.Amer) 33 mL/min 66202-3 LOINC eGFR (Afr-Icelandic) 39 mL/min 11096-4 LOINC Social History Type Status Start Date End Date Code Code Syst em Smoking History Current every day smoker 793445075 SNOMED CT Sex Female Assessment You had [...] Date Status Code Code System NIDDM active 32351687 SNOMED-CT CAD active 91206975 SNOMED-CT MYOCARDIAL INFARCT active 49019484 S NOMED-CT GERD active 420129274 SNOMED-CT DEPRESSION active 48822348 SNOMED-CT HIGH CHOLESTEROL 05/01/2023 resolved 18537102 SN OMED-CT STENTED ARTERY 05/01/2023 resolved 388005787 SNOM ED-CT COPD 05/01/2023 resolved 51807367 SNOMED-CT Allergies and Adverse Reactions Allergy Substance Reaction Severity Start Date Concern Status Code Code Batool jack MORPHINE Vomiting (SNOMED-CT: 935720602) Moderate Active 7052 RxNorm LATEX Active 6659353 RxNorm BAND-AID BRAND ADHESIVE BANDAGES Moderate Active 3193732 RxNorm Plan of Treatment MRI L SPINE [...] Code Sys tem Peripheral vascular disease 12/27/2021 182158411 SNOMED-CT Personal Care Team Section Performer Name Performer Role Active Date Inactive Da te
--- OUTSIDE RECORDS SUMMARY | 2023-12-04 21:43 | XMS_ITS ---
Author Organization Unknown Address [address] [place] [address] [phone] Phone Care Team Providers Care Intelligence Operations Name Role Phone LETITIA Gaspar Attending Unavailable Results CT LDCT FOR LUNG CA SCREEN - Completed: 05/23/2022 09:33 [facility]: [facility] RADIOLOGY [place], [place] [address] PACS CHILD CARE ATTENDANT SCHOOL REPORT Patient Name: VIKRAM CLIFFORD MRN: Sex: : Age: [id number] F 1955 66 Account: Accession: Admit: StayType: [id number] 05/23/2022 O/P Ordered: Order ID: Submitted: Ordering Provider: 05/23/2022 08:47 [id number] KT TONIA DONG Completed: Technologist: Resulted: 05/23/2022 09:33 BMM 05/23/2022 [...] em Smoking History Current every day smoker 045067071 SNOMED CT Sex Female Assessment You had [...] Date Status Code Code System NIDDM active 45636594 SNOMED-CT CAD active 37531257 SNOMED-CT MYOCARDIAL INFARCT active 86621753 S NOMED-CT GERD active 034529903 SNOMED-CT DEPRESSION active 29625551 SNOMED-CT HIGH CHOLESTEROL 05/01/2023 resolved 99344997 SN OMED-CT STENTED ARTERY 05/01/2023 resolved 995699368 SNOM ED-CT COPD 05/01/2023 resolved 94463556 SNOMED-CT Allergies and Adverse Reactions Allergy Substance Reaction Severity Start Date Concern Status Code Code Syste m MORPHINE Vomiting (SNOMED-CT: 316878482) Moderate Active 7052 RxNorm LATEX Active 1814252 RxNorm BAND-AID BRAND ADHESIVE BANDAGES Moderate Active 7759229 RxNorm Plan of Treatment MRI L SPINE [...]
--- OUTSIDE RECORDS SUMMARY | 2023-12-04 21:43 | XMS_ITS ---
Author Organization Unknown Address [address] [place] [address] [phone] Phone Care Team Providers Care Liquor Store Manager Name Role Phone LETITIA Gaspar Attending Unavailable Results NM BONE SCAN WHOLE BODY - Co mpleted: 06/06/2022 11:55 LOINC: [facility] RADIOLOG[facility] [place], [place] [address] PACS IT SALES EXECUTIVE REPORT Patient Name: VIKRAM CLIFFORD MRN: Sex: : Age: [id number] F 1955 66 Account: Accession: Admit: StayType: [id number] 06/06/2022 O/P Ordered: Order ID: Submitted: Ordering Provider: 06/06/2022 08:55 [id number] [facility] TONIA DONG Completed: Technologist: Resulted: 06/06/2022 11:55 [...] em Smoking History Current every day smoker 411463636 SNOMED CT Sex Female Assessment You had [...] Date Status Code Code System NIDDM active 42508984 SNOMED-CT CAD active 40880488 SNOMED-CT MYOCARDIAL INFARCT active 94308427 S NOMED-CT GERD active 008564515 SNOMED-CT DEPRESSION active 68724882 SNOMED-CT HIGH CHOLESTEROL 05/01/2023 resolved 81502431 SN OMED-CT STENTED ARTERY 05/01/2023 resolved 239596919 SNOM ED-CT COPD 05/01/2023 resolved 41119914 SNOMED-CT Allergies and Adverse Reactions Allergy Substance Reaction Severity Start Date Concern Status Code Code Syste m MORPHINE Vomiting (SNOMED-CT: 438228701) Moderate Active 7052 RxNorm LATEX Active 6920372 RxNorm BAND-AID BRAND ADHESIVE BANDAGES Moderate Active 9447924 RxNorm Plan of Treatment MRI L SPINE [...] Date Code Code Sys tem Osteolysis 06/06/2022 902731004 SNOMED-CT Personal Care Team Section Performer Name Performer Role Active Date Inactive Da te
--- OUTSIDE RECORDS SUMMARY | 2023-12-04 21:43 | XMS_ITS ---
Author Organization Unknown Address [address] [place] [address] [phone] Phone Care Team Providers Care Pediatric Occupational Therapist Name Role Phone LETITIA Gaspar Attending Unavailable Results MR LS SPINE WO CONTRAST - Co mpleted: 03/12/2023 08:39 LOINC: [facility] RADIOLOGY [place], [place] [address] PACS BENCH MOLDER REPORT Patient Name: VIKRAM CLIFFORD MRN: Sex: : Age: [id number] F 1955 67 Account: Accession: Admit: StayType: [id number] 03/12/2023 O/P Ordered: Order ID: Submitted: Ordering Provider: 03/12/2023 07:54 [id number] NLS TONIA DONG Completed: Technologist: Resulted: 03/12/2023 08:39 AX 03/12/2023 08:40 Study Description: MR LS SPINE [...] em Smoking History Current every day smoker 636299384 [employer] CT Sex Female Assessment You had the following problems:NIDDMCADMYOCARDIAL INFARCTGERDDEPRESSION Hospital Discharge Instructions Should you have any questions prior to discharge, please contact a member of your healthcare team. If you have left the hospital and have any questions, please contact your primary care physician. Reason For Referral No Data Found Problems Problem Start Date Resolved Date Status Code Code System NIDDM active 07089801 SNOMED-CT CAD active 20099583 SNOMED-CT MYOCARDIAL INFARCT active 13611418 S NOMED-CT GERD active 400203611 SNOMED-CT DEPRESSION active 96990736 SNOMED-CT HIGH CHOLESTEROL 05/01/2023 resolved 69182784 SN OMED-CT STENTED ARTERY 05/01/2023 resolved 680393770 SNOM ED-CT COPD 05/01/2023 resolved 39051692 SNOMED-CT Allergies and Adverse Reactions Allergy Substance Reaction Severity Start Date Concern Status Code Code Syste m MORPHINE Vomiting (SNOMED-CT: 642997507) Moderate Active 7052 RxNorm LATEX Active 4643307 RxNorm BAND-AID BRAND ADHESIVE BANDAGES Moderate Active 5854938 RxNorm Plan of Treatment MRI L SPINE [...] tem Degeneration of lumbar intervertebral disc 03/12/2023 36985202 SNOMED-CT Personal Care Team Section Performer Name Performer Role Active Date Inactive Av pérez
--- OUTSIDE RECORDS SUMMARY | 2023-12-04 21:43 | XMS_ITS ---
Author Organization Unknown Address [address] [place] [address] [phone] Phone Care Team Providers Care Paver Operator Name Role Phone LETITIA Gaspar Attending Unavailable Results BD DXA BONE DENSITY HIP AND SPINE - Completed: 05/22/2022 13:43 [facility] [place], [place] [address] PACS RN CASE MANAGER REPORT Patient Name: VIKRAM CLIFFORD MRN: Sex: : Age: [id number] F 1955 66 Account: Accession: Admit: StayType: [id number] 05/22/2022 O/P Ordered: Order ID: Submitted: Ordering Provider: 05/22/2022 12:59 [id number] NLS TONIA DONG Completed: Technologist: Resulted: 05/22/2022 13:43 DA 05/22/2022 [...] 4V RT* - Completed: 05/22/2022 13:22 LOINC: [facility] RADIOLOG[facility] [place] [address] PACS RN CASE MANAGER REPORT Patient Name: VIKRAM CLIFFORD MRN: Sex: : Age: [id number] F 1955 66 Account: Accession: Admit: StayType: [id number] 05/22/2022 O/P Ordered: Order ID: Submitted: Ordering Provider: 05/22/2022 12:59 [id number] TONIA ALBERTS Completed: Technologist: Resulted: 05/22/2022 13:22 [...] em Smoking History Current every day smoker 303919987 SNOMED CT Sex Female Assessment You had [...] Date Status Code Code System NIDDM active 73022746 SNOMED-CT CAD active 61455387 SNOMED-CT MYOCARDIAL INFARCT active 69001942 S NOMED-CT GERD active 639284111 SNOMED-CT DEPRESSION active 45301738 SNOMED-CT HIGH CHOLESTEROL 05/01/2023 resolved 29452999 SN OMED-CT STENTED ARTERY 05/01/2023 resolved 456065410 SNOM ED-CT COPD 05/01/2023 resolved 38413241 SNOMED-CT Allergies and Adverse Reactions Allergy Substance Reaction Severity Start Date Concern Status Code Code Syste m MORPHINE Vomiting (SNOMED-CT: 438790250) Moderate Active 7052 RxNorm LATEX Active 5201119 RxNorm BAND-AID BRAND ADHESIVE BANDAGES Moderate Active 5664244 RxNorm Plan of Treatment MRI L SPINE [...] tem Unilateral primary osteoarthritis, right knee 05/23/19 SNOMED-CT Personal Care Team Section Performer Name Performer Role Active Date Inactive Da te
--- OUTSIDE RECORDS SUMMARY | 2023-12-04 21:44 | XMS_ITS ---
Author Organization Unknown Address [address] [place] [address] [phone] Phone Care Team Providers Care Pot Puncher Name Role Phone AMINAH TAVERA Joelle Attending Unavailable LETITIA Gaspar Primary Unavailable Social History Type Status Start Date End Date Code Code Syst em Smoking History Current every day smoker 961558850 SNOMED CT Sex Female Assessment You had [...] Date Status Code Code System NIDDM active 91314493 SNOMED-CT CAD active 40528551 SNOMED-CT MYOCARDIAL INFARCT active 57184923 S NOMED-CT GERD active 071806778 SNOMED-CT DEPRESSION active 85788372 SNOMED-CT HIGH CHOLESTEROL 05/01/2023 resolved 26023233 SN OMED-CT STENTED ARTERY 05/01/2023 resolved 151711647 SNOM ED-CT COPD 05/01/2023 resolved 92878001 SNOMED-CT Allergies and Adverse Reactions Allergy Substance Reaction Severity Start Date Concern Status Code Code Syste m MORPHINE Vomiting (SNOMED-CT: 414610524) Moderate Active 7052 RxNorm LATEX Active 0664822 RxNorm BAND-AID BRAND ADHESIVE BANDAGES Moderate Active 2883969 RxNorm Plan of Treatment MRI L SPINE [...]
--- OUTSIDE RECORDS SUMMARY | 2023-12-04 21:44 | XMS_ITS ---
Author Organization Unknown Address [address] [place] [address] [phone] Phone Care Team Providers Care M[employer] Teacher Name Role Phone AMINAH Lai Attending Unavailable LETITIA Gaspar Primary Unavailable Results BLOOD BANK REPORT OF UNITS A JUANA* - Collect Date/Time: 05/12/2023 14:46 [facility] ID: [id number] [address] [place] [address], [id number] LOINC: Test Value Unit Reference Range Code Code System Flag Component Packed RBCs Leukopoor Blood Group A 883-9 LOINC Rh (D) NEGATIVE 73025-4 LOINC Antibody Screen. PREV. POS Antibody Id. NON SPECIFIC COLD AGGLUTININ TYPE AND CROSS 1 UNIT (INCLU JÚNIOR SCREEN)* - Collect Date/Time: 05/12/2023 13:54 [facility] ID: [id number] [address] [place] [address], [id number] LOINC: Test Value Unit Reference Range Code Code System Flag Blood Group A 883-9 LOINC Rh (D) NEGATIVE 86705-3 LOINC Antibody Screen Neg w/prev Ab 1005-8 LOINC Antibody Id. NON SPECIFIC COLD AGGLUTININ CBC W/ DIFFERENTIAL* - Colle ct Date/Time: 05/12/2023 13:54 [facility] ID: [id number] [address] [place], [place], [phone] LOINC: 84364-1 Test Value Unit Reference Range Code Code System Flag WBC 5.89 th/cmm L=5.00 H=10.00 6690-2 LOINC NEUT % 77.6 % L=40.0 H=80.0 LYMPH % 15.1 % L=10.0 H=50.0 MONO % 5.1 % L=2.0 H=12.0 19392-4 LOINC EOS % 1.4 % L=0.0 H=8.0 BASO % 0.5 % L=0.0 H=3.0 IG % 0.3 % L=0.0 H=1.1 2514-8 LOINC NRBC % 0.0 % L=0.0 H=0.0 78237-6 LOINC NEUT abs count 4.6 th/cmm L=1.6 H=8.4 751-8 LOINC LYMPH abs count 0.9 th/cmm L=1.5 H=4.0 731-0 LOINC L MONO abs count 0.3 th/cmm L=0.2 H=1.0 742-7 LOINC EOS abs count 0.1 th/cmm L=0.0 H=0.5 711-2 LOINC BASO abs count 0.0 th/cmm L=0.0 H=0.2 704-7 LOINC IG abs count 0.0 th/cmm L=0.0 H=0.1 94847-4 LOINC NRBC abs count 0.0 mil/cmm L=0.0 H=0.0 37780-0 LOINC RBC 3.33 mil/cmm L=3.90 H=5.40 789-8 [...] em Smoking History Current every day smoker 412314133 SNOMED CT Sex Female Assessment You had [...] Date Status Code Code System NIDDM active 91998192 SNOMED-CT CAD active 00821220 SNOMED-CT MYOCARDIAL INFARCT active 66063724 S NOMED-CT GERD active 709302166 SNOMED-CT DEPRESSION active 14249657 SNOMED-CT HIGH CHOLESTEROL 05/01/2023 resolved 12857764 SN OMED-CT STENTED ARTERY 05/01/2023 resolved 190992870 SNOM ED-CT COPD 05/01/2023 resolved 56233961 SNOMED-CT Allergies and Adverse Reactions Allergy Substance Reaction Severity Start Date Concern Status Code Code Syste m MORPHINE Vomiting (SNOMED-CT: 535754491) Moderate Active 7052 RxNorm LATEX Active 2032142 RxNorm BAND-AID BRAND ADHESIVE BANDAGES Moderate Active 0011062 RxNorm Plan of Treatment MRI L SPINE [...] Code Sys tem Iron deficiency anemia 05/12/2023 54456674 SNOME D-CT Personal Care Team Section Performer Name Performer Role Active Date Inactive Da te
--- OUTSIDE RECORDS SUMMARY | 2023-12-04 21:44 | XMS_ITS ---
Author Organization Unknown Address [address] [place] [phone] Phone Care Team Providers Care Production Cost Estimator Name Role Phone STACIA MCCURDY Registered Nurse Unavailable DARLING AGUILERA Attending Unavailable LETITIA Gaspar Primary Unavailable UNLISTED PROVIDER - REQUESTED Xhandoff Un available Results BLOOD BANK REPORT OF UNITS A JUANA* - Collect Date/Time: 05/01/2023 11:50 [facility] ID: [id number] [address] [place] [address], [phone] LOINC: Test Value Unit Reference Range Code Code System Flag Component Packed RBCs Leukopoor Blood Group A 883-9 LOINC Rh (D) NEGATIVE 52802-8 LOINC Antibody Screen. POSITIVE Antibody Id. NON SPECIFIC COLD AGGLUTININ TYPE AND SCREEN* - Collect D ate/Time: 05/01/2023 11:50 [facility] ID: [id number] [address] [place] [address], [phone] LOINC: Test Value Unit Reference Range Code Code System Flag Blood Group A 883-9 LOINC Rh (D) NEGATIVE 15535-3 LOINC Antibody Screen POSITIVE 1005-8 LOINC Antibody Id. NON SPECIFIC COLD AGGLUTININ CBC W/ DIFFERENTIAL* - Colle ct Date/Time: 05/01/2023 11:50 [facility] ID: [id number] [address] [place] [address], [phone] LOINC: 73767-3 Test Value Unit Reference Range Code Code System Flag WBC 5.28 th/cmm L=5.00 H=10.00 6690-2 LOINC NEUT % 80.4 % L=40.0 H=80.0 H LYMPH % 13.3 % L=10.0 H=50.0 MONO % 4.4 % L=2.0 H=12.0 66545-5 LOINC EOS % 1.3 % L=0.0 H=8.0 BASO % 0.2 % L=0.0 H=3.0 IG % 0.4 % L=0.0 H=1.1 2514-8 LOINC NRBC % 0.0 % L=0.0 H=0.0 69349-7 LOINC NEUT abs count 4.3 th/cmm L=1.6 H=8.4 751-8 LOINC LYMPH abs count 0.7 th/cmm L=1.5 H=4.0 731-0 LOINC L MONO abs count 0.2 th/cmm L=0.2 H=1.0 742-7 LOINC EOS abs count 0.1 th/cmm L=0.0 H=0.5 711-2 LOINC BASO abs count 0.0 th/cmm L=0.0 H=0.2 704-7 LOINC IG abs count 0.0 th/cmm L=0.0 H=0.1 72014-2 LOINC NRBC abs count 0.0 mil/cmm L=0.0 H=0.0 04235-8 LOINC RBC 2.98 mil/cmm L=3.90 H=5.40 789-8 [...] em Smoking History Current every day smoker 459056201 SNOMED CT Sex Female Vital Signs Vital Sign Value Unit [place] Value [place] Unit Date/Time Recent/Initial? Code Code System Body Mass Index 29.26 kg/m2 05/01/2023 11:53 Initial 93442 -5 LOINC Systolic Blood Pressure 106 mm[Hg] [...] O2 Saturation 100 % 2023 13:00 Initial 92968 -5 LOINC Pulse 78.0 /min 05/01/2023 13:00 Most Recent 8867- 4 LOINC Pulse 81.0 /min 05/01/2023 11:53 Initial 8867- 4 LOINC Respiration 18 /min 05/01/19 24 13:00 Most Recent 9279- 1 LOINC Respiration 23 /min 05/01/19 24 11:53 Initial 9279- 1 LOINC Temperature 36.2 Mali[place] 97.2 F 05/01/19 11:53 Initial 8310- 5 LOINC Weight 72.57 kg 160.00 lbs 05/01/2023 11:53 Initial 08766 -7 LOINC Assessment You had the following problems:NIDDMCADMYOCARDIAL INFARCTGERDDEPRESSION Hospital Discharge Instructions Should you have any questions prior to discharge, please contact a member of your healthcare team. If you have left the hospital and have any questions, please contact your primary care physician. Reason For Referral No Data Found Procedures Procedure Name Date Status Code Code Batool m Carpal tunnel completed [id number] SNOMEDCT Problems Problem Start Date Resolved Date Status Code Code System NIDDM active 70702488 SNOMED-CT CAD active 98927067 SNOMED-CT MYOCARDIAL INFARCT active 86223881 S NOMED-CT GERD active 859573183 SNOMED-CT DEPRESSION active 35256846 SNOMED-CT HIGH CHOLESTEROL 05/01/2023 resolved 60796595 SN OMED-CT STENTED ARTERY 05/01/2023 resolved 542462679 SNOM ED-CT COPD 05/01/2023 resolved 30645848 SNOMED-CT Allergies and Adverse Reactions Allergy Substance Reaction Severity Start Date Concern Status Code Code Syste m MORPHINE Vomiting (SNOMED-CT: 144112379) Moderate Active 7052 RxNorm LATEX Active 2917570 RxNorm BAND-AID BRAND ADHESIVE BANDAGES Moderate Active 5449378 RxNorm Plan of Treatment MRI L SPINE [...] Date Code Code Sys tem Anemia 05/01/2023 666843382 SNOMED-CT Personal Care Team Section Performer Name Performer Role Active Date Inactive Da beto
--- OUTSIDE RECORDS SUMMARY | 2023-12-04 21:45 | XMS_ITS | Encounter Summary ---
Author Organization [facility] Address [address] [place] [address] Care Team Providers Care Station Agent Name Role Phone Elizabeth Dsouza MD Primary Care Provider [phone] Reason for Referral * Radiology Services (Routine/Next Available) - Authorization Not Required Specialty Diagnoses / Procedures Referred By Loli rose Referred To Contact Diagnoses Squamous cell carcinoma of lung, right (HCC-CMS) Procedures CT CHEST WO CONTRAST Kaiser Miller MD [address] [address] [facility] [place] [place] Referral ID Status Reason Start Date Expiration Date Visits Requested Visits Authorized [id number] Authorization Not Required 06/16/2023 1 1 Reason for Visit * Radiology Services (Routine/Next Available) - Authorization Not Required Specialty Diagnoses / Procedures Referred By Loli rose Referred To Contact Diagnoses Squamous cell carcinoma of lung, right (HCC-CMS) Procedures CT CHEST WO CONTRAST Kaiser Miller MD [address] [place] [phone] [facility] [place] [place] Referral ID Status Reason Start Date Expiration Date Visits Requested Visits Authorized [id number] Authorization Not Required 06/16/2023 1 1 Encounter Details Date Type Department Care Team (Latest Contact Info) Description 07/23/2023 16:46 EDT - 07/23/2023 23:59 EDT Hospital Encounter [facility] CT Scan [address] [place] [address] Squamous cell carcinoma of lung, right (HCC-CMS) Discharge Disposition: Home or Self Care Social History Tobacco Use Types Packs/Day Years Used Date Smoking Tobacco: Every Day Cigarettes 1 54.7 Started: 1969 Passive Smoke Exposure: Never Smokeless Tobacco: Never Alcohol Use Standard Drinks/Week Comments Not Currently 0 (1 standard drink = 0.6 oz pur e alcohol) Interpersonal Safety Answer Date Record ed Physically Hurt Never 10/17/2019 Verbally Threaten Not on file 10/17/2019 Sex and Gender Information Value Date Recorded Sex Assigned at Not on file Gender Identity Female 01/04/2021 7:40 EDT Sexual Orientation Not on file documented as of this encounter Functional Status Functional Status Response Date of Assess ment Are you deaf or do you have serious difficulty h earing? No 12/28/2021 Because of a physical, menta l, or emotional condition, does this person have difficulty doing errands alone such as visiting a doctor's office or shopping? No 08/05/2022 Cognitive Status Response Date of Assessm ent Because of a physical, menta l, or emotional condition, does this person have serious difficulty concentrating, remembering, or making decisions? No 08/05/2022 documented as of this encounter Medications at Time of Discharge Medication Sig Dispensed Refills Start Date End Date albuterol 90 mcg/actuation inhaler Inhale 2 Puffs as directed every 4 hours as needed for Wheezing. aspirin chewable 81 mg tablet Take 1 Tablet by mouth daily. cilostazoL (PLETAL) 100 mg tablet Take 1 Tablet by mouth daily. famotidine (PEPCID) 20 mg tablet Take 1 Tablet by mouth every morning. HYDROcodone-acetaminophen (NORCO) 5-325 mg tablet Take 1 Tablet by mouth every 6 hours. losartan (COZAAR) 25 mg tablet Take 1 Tablet by mouth daily. nitroglycerin (NITROSTAT) 0.[address] 1 Tablet under the tongue every 5 minutes as needed for Chest Pain. omeprazole (PRILOSEC) 20 mg capsule Take 1 Capsule by mouth daily. pregabalin (LYRICA) 50 mg capsule Take 1 Capsule by mouth 2 times daily. rosuvastatin (CRESTOR) 10 mg tablet Take 4 Tablets by mouth daily. tiotropium (SPIRIVA) 18 mcg inhalation capsule Inhale 1 Capsule as directed daily. traZODone (DESYREL) 50 mg tablet Take 3 Tablets by mouth at bedtime. documented as of this encounter Discharge Disposition Disposition Code Departure Means Destination Home or Self Care documented in this encounter Plan of Treatment Not on file documented as of this encounter Procedures Procedure Name Priority Date/Time Associated Diagnosis Comments CT CHEST WO CONTRAST Routine 07/23/2023 17:06 EDT Squamous cell carcinoma of lung, right (HCC-CMS) documented in this encounter Results * CT CHEST WO CONTRAST (07/23/2023 17:06 EDT) Anatomical Region Laterality Modality Chest Computed Tomogra phy 07/23/2023 16:5 3 EDT Impressions 07/23/2023 18:50 EDT 1. ?? Irregularly contoured, lateral right upper lobe approximate 8 x 9 mm nodule (image 121, series 3) - not significantly changed compared to 11/19/2022. ??This area exhibited uptake on PET-CT scan dated 07/26/2022. 2. ?? Lateral right upper lobe 4.5 mm nodule image 112, series 3 - increased from 2-3 mm on 11/19/2022. 3. ?? Inferolateral right upper lobe 3 mm stable nodule image 148, series 3. 4. ?? 2 mm stable nodule right upper lobe image 127, series 3. 5. ?? Anterolateral left lower lobe 4 mm stable nodule image 159, series 3. 6. ?? No new lung nodules. 7. ?? Stable 1.6 cm subcarinal lymph node. THIS DOCUMENT HAS BEEN ELECTRONICALLY SIGNED BY LARRY MORENO MD FOR ANY QUESTIONS OR CONCERNS REGARDING THIS REPORT PLEASE CALL [facility] AT [phone] Narrative 07/23/2023 18:50 EDT PROCEDURE INFORMATION: Exam: CT Chest Without Contrast; Diagnostic Exam date and time: 07/23/2023 4:53 PM Age: 68 years old Clinical indication: Non-small cell lung cancer (nsclc), non-metastatic, assess treatment response. Malignant neoplasm of unspecified part of right bronchus or lung; Prior oncological treatment - unknown. Condition or disease; Other: Lung CA; Additional info: Non-small cell lung cancer (nsclc), non-metastatic, assess treatment response TECHNIQUE: Imaging protocol: Diagnostic computed tomography of the chest without contrast. Radiation optimization: All CT scans at this facility use at least one of these dose optimization techniques: automated exposure control; mA and/or kV adjustment per patient size (includes targeted exams where dose is matched to clinical indication); or iterative reconstruction. COMPARISON: CT CHEST WO CONTRAST 11/19/2022 9:03 AM FINDINGS: Lungs: Irregularly contoured, lateral right upper lobe approximate 8 x 9 mm nodule (image 121, series 3) - not significantly changed compared to 11/19/2022. No alveolar or ground glass infiltrate. Lateral right upper lobe 4.5 mm nodule image 112, series 3 - increased from 2-3 mm on 11/19/2022. Inferolateral right upper lobe 3 mm stable nodule image 148, series 3. 2 mm stable nodule right upper lobe image 127, series 3. 2 mm and 3 mm stable nodules along the minor fissure (image 152, series 3). Anterolateral left lower lobe 4 mm stable nodule image 159, series 3. No new lung nodules. Pleural spaces: No pleural fluid collection. No pneumothorax. Heart: No pericardial effusion. Stable radiodensity along the right superolateral pericardium. Lymph nodes: Stable 1.6 cm subcarinal lymph node. Vasculature: Normal caliber thoracic aorta without dissection or aneurysm. Gallbladder and bile ducts: Cholelithiasis. Adrenal glands: Bilateral adrenal gland thickening. Bones/joints: Spinal degenerative changes. Soft tissues: Unremarkable. Procedure Note Larry Moreno MD - 07/23/2023 PROCEDURE INFORMATION: Exam: CT Chest Without Contrast; Diagnostic Exam date and time: 07/23/2023 4:53 PM Age: 68 years old Clinical indication: Non-small cell lung cancer (nsclc), non-metastatic, assess treatment response. Malignant neoplasm of unspecified part of right bronchus or lung; Prior oncological treatment - unknown. Condition or disease; Other: Lung CA; Additional info: Non-small cell lung cancer (nsclc), non-metastatic, assess treatment response TECHNIQUE: Imaging protocol: Diagnostic computed tomography of the chest without contrast. Radiation optimization: All CT scans at this facility use at least one of these dose optimization techniques: automated exposure control; mA and/or kV adjustment per patient size (includes targeted exams where dose is matched to clinical indication); or iterative reconstruction. COMPARISON: CT CHEST WO CONTRAST 11/19/2022 9:03 AM FINDINGS: Lungs: Irregularly contoured, lateral right upper lobe approximate 8 x 9 mm nodule (image 121, series 3) - not significantly changed compared to 11/19/2022. No alveolar or ground glass infiltrate. Lateral right upper lobe 4.5 mm nodule image 112, series 3 - increased from 2-3 mm on 11/19/2022. Inferolateral right upper lobe 3 mm stable nodule image 148, series 3. 2 mm stable nodule right upper lobe image 127, series 3. 2 mm and 3 mm stable nodules along the minor fissure (image 152, series 3). Anterolateral left lower lobe 4 mm stable nodule image 159, series 3. No new lung nodules. Pleural spaces: No pleural fluid collection. No pneumothorax. Heart: No pericardial effusion. Stable radiodensity along the right superolateral pericardium. Lymph nodes: Stable 1.6 cm subcarinal lymph node. Vasculature: Normal caliber thoracic aorta without dissection or aneurysm. Gallbladder and bile ducts: Cholelithiasis. Adrenal glands: Bilateral adrenal gland thickening. Bones/joints: Spinal degenerative changes. Soft tissues: Unremarkable. IMPRESSION 1. Irregularly contoured, lateral right upper lobe approximate 8 x 9 mm nodule (image 121, series 3) - not significantly changed compared to 11/19/2022. This area exhibited uptake on PET-CT scan dated 07/26/2022. 2. Lateral right upper lobe 4.5 mm nodule image 112, series 3 - increased from 2-3 mm on 11/19/2022. 3. Inferolateral right upper lobe 3 mm stable nodule image 148, series 3. 4. 2 mm stable nodule right upper lobe image 127, series 3. 5. Anterolateral left lower lobe 4 mm stable nodule image 159, series 3. 6. No new lung nodules. 7. Stable 1.6 cm subcarinal lymph node. THIS DOCUMENT HAS BEEN ELECTRONICALLY SIGNED BY LARRY MORENO MD FOR ANY QUESTIONS OR CONCERNS REGARDING THIS REPORT PLEASE CALL [facility] [phone] Kaiser Miller MD IMG CT ORDERABLES documented in this encounter Visit Diagnoses Diagnosis Squamous cell carcinoma of lung, right (HCC-CMS) documented in this encounter Care Teams Station Agent Relationship Specialty Start Date End Date Elizabeth Dsouza MD [address] [place] [phone] PCP - General 02/13/12 documented as of this encounter
--- OUTSIDE RECORDS SUMMARY | 2023-12-04 21:45 | XMS_ITS | Encounter Summary ---
Author Organization [facility] Address [address] [place] [address] Care Team Providers Care Epic Professional Name Role Phone Elizabeth Dsouza MD Primary Care Provider [phone] Encounter Details Date Type Department Care Team (Late st Contact Info) Description 09/06/2022 Results Only [facility] Radiation Oncology - [address] [address] Unknown, Provider, Social History Tobacco Use Types Packs/Day Years Used Date Smoking Tobacco: Every Day Cigarettes 2 54.7 Started: 1969 Passive Smoke Exposure: Never [...] No 08/05/2022 documented as of this encounter Plan of Treatment Not on file documented as of this encounter Procedures Procedure Name Priority Date/Time Associated Diagnosis Comments RAD ONC ARIA SESSION SUMMARY Routine 09/06/2022 11:23 EDT documented in this encounter Results * RAD ONC ARIA SESSION SUMMARY (09/06/2022 11:23 EDT) Course ID C1 ARIA RADIATION ONCOLOGY Course Intent Curative ARIA RADIATION ONCOLOGY Course First Treatment Date 09/04/2022 11:17 ARIA RADIATION ONCOLOGY Course Last Treatment Date 09/06/2022 11:23 ARIA RADIATION ONCOLOGY Course Elapsed Days 2 ARIA RADIATION ONCOLOGY Reference Point ID RT LUNG ARIA RADIATION ONCOLOGY Reference Point Dosage Given to Date 36 Gy ARIA RADIATION ONCOLOGY Reference Point Session Dosage Given 18 Gy ARIA RADIATION ONCOLOGY Plan ID 1_RtLung SABR ARIA RADIATION ONCOLOGY Plan Name SABR LUNG ARIA RADIATION ONCOLOGY Plan Fractions Treated to Date 2 ARIA RADIATION ONCOLOGY Plan Total Fractions Prescribed 3 ARIA RADIATION ONCOLOGY Plan Prescribed Dose Per Fraction 18 Gy ARIA RADIATION ONCOLOGY Plan Total Prescribed Dose 5,400 cGy ARIA RADIATION ONCOLOGY Plan Primary Reference Point RT LUNG ARIA RADIATION ONCOLOGY 09/06/2022 11:2 3 EDT Provider Unknown RADIATION ONCOLOGY O EMMAERAWILLIAM ARIA RADIATION ONCOLOGY documented in this encounter Visit Diagnoses Not on filedocumented in this encounter Care Teams Epic Professional Relationship Specialty Start Date End Date Elizabeth Dsouza MD [address] [place] [phone] PCP - General 02/13/12 documented as of this encounter
--- OUTSIDE RECORDS SUMMARY | 2023-12-04 21:45 | XMS_ITS | Encounter Summary ---
Author Organization [facility] Address [address] [place] [address] Care Team Providers Care Director Sales And Trade Marketing Name Role Phone Elizabeth Dsouza MD Primary Care Provider [phone] Encounter Details Date Type Department Care Team (Late st Contact Info) Description 09/09/2022 Results Only [facility] Radiation Oncology - [address] [address] Unknown, Provider, Social History Tobacco Use Types [...] Date/Time Associated Diagnosis Comments RAD ONC ARIA COURSE SUMMARY Routine 06/25/2023 9:07 EDT documented in this encounter Results * RAD ONC ARIA COURSE SUMMARY (06/25/2023 9:07 EDT) Course ID C1 ARIA RADIATION ONCOLOGY Course Intent Curative ARIA RADIATION ONCOLOGY Course End Date 06/25/2023 9:07 ARIA RADIATION ONCOLOGY Course First Treatment Date 09/04/2022 11:17 ARIA RADIATION ONCOLOGY Course Last Treatment Date 09/09/2022 10:36 ARIA RADIATION ONCOLOGY Course Elapsed Days 5 ARIA RADIATION ONCOLOGY Reference Point ID RT LUNG ARIA RADIATION ONCOLOGY Reference Point Dosage Given to Date 54 Gy ARIA RADIATION ONCOLOGY Plan ID 1_RtLung SABR ARIA RADIATION ONCOLOGY Plan Name 1_RtLung SABR ARIA RADIATION ONCOLOGY Plan Fractions Treated to Date 3 ARIA RADIATION ONCOLOGY Plan Total Fractions Prescribed 3 ARIA RADIATION ONCOLOGY Plan Prescribed Dose Per Fraction 18 Gy ARIA RADIATION ONCOLOGY Plan Total Prescribed Dose 5,400 cGy ARIA RADIATION ONCOLOGY Plan Primary Reference Point RT LUNG ARIA RADIATION ONCOLOGY 06/25/2023 9:07 EDT Provider Unknown RADIATION ONCOLOGY O RDERABLES ARIA RADIATION ONCOLOGY documented in this encounter Visit Diagnoses Not on filedocumented in this encounter Care Teams Director Sales And Trade Marketing Relationship Specialty Start Date End Date Elizabeth Dsouza MD [address] [place] [phone] PCP - General 02/13/12 documented as of this encounter
--- OUTSIDE RECORDS SUMMARY | 2023-12-04 21:45 | XMS_ITS | Encounter Summary ---
Author Organization [facility] Address [address] [place] [address] Care Team Providers Care Systems Qa Analyst Name Role Phone Elizabeth Dsouza MD Primary Care Provider [phone] Encounter Details Date Type Department Care Team (Late st Contact Info) Description 08/13/2022 Documentation Visit [facility] Radiation Oncology - [address] [address] Divina Penny, RN Social History Tobacco Use Types Packs/Day Years [...] No 08/05/2022 documented as of this encounter Progress Notes * Hemalatha, Divina, ABEL - 08/13/2022 1000 EDT Images from the original note were not included. Nursing Initial Assessment Date of Service: 08.13.2022 Referring Physicians: Vitals: See rooming. Pain: 3 sciatic pain. Review Of Systems: System Comments Constitutional Weight loss of 10 lbs in the past year, c/o poor appetite. Eyes ENT Cardiovascular Coronary artery disease. Pulmonary COPD. Gastrointestinal HX of diverticulitis. Genitourinary Muscoloskeletal Low back pain. Integument/breast Neurological Sciatic nerve pain. Psychiatric HX of depression. Endocrine Hematologic/Lymph Allergic/Immunologic REVIEW OF SYSTEMS COMMENTS: Signed: DIVINA PENNY RN documented in this encounter Plan of Treatment Not on file documented as of this encounter Visit Diagnoses Not on filedocumented in this encounter Care Teams Systems Qa Analyst Relationship Specialty Start Date End Date Elizabeth Dsouza MD [address] [place] [phone] PCP - General 02/13/12 documented as of this encounter
--- OUTSIDE RECORDS SUMMARY | 2023-12-04 21:45 | XMS_ITS | Encounter Summary ---
Author Organization [facility] Address [address] [place] [address] Care Team Providers Care Adapted Physical Education Specialist Name Role Phone Elizabeth Dsouza MD Primary Care Provider [phone] Encounter Details Date Type Department Care Team (Late st Contact Info) Description 09/04/2022 11:00 EDT - 09/04/2022 23:59 EDT Hospital Encounter [facility] Cancer Treatment [place] [address] [place] [address] cAosta Alan MD [address] [place] [address] [address] [place] [address] Discharge Disposition: Home or Self Care Social [...] on filedocumented in this encounter Care Teams Adapted Physical Education Specialist Relationship Specialty Start Date End Date Elizabeth Dsouza MD [address] [place] [address] PCP - General 02/13/12 documented as of this encounter
--- OUTSIDE RECORDS SUMMARY | 2023-12-04 21:45 | XMS_ITS | Encounter Summary ---
Author Organization [facility] Address [address] [place] [address] Care Team Providers Care Staff Development Coordinator Rn Name Role Phone Elizabeth Dsouza MD Primary Care Provider Encounter Details Date Type Department Care Team (Late st Contact Info) Description 12/10/2022 Orders Only [facility] Cancer Treatment [place] [address] [place] [address] Acosta Alan MD [address] [facility] [address] [place] [address] Squamous cell carcinoma of lung, right (HCC-CMS) (Primary Dx) Social History Tobacco Use Types Packs/Day Years [...] documented as of this encounter Visit Diagnoses Diagnosis Squamous cell carcinoma of lung, right ([facility])- Primary documented in this encounter Care Teams Staff Development Coordinator Rn Relationship Specialty Start Date End Date Elizabeth Dsouza MD [address] [place] [address] PCP - General 02/13/12 documented as of this encounter
--- OUTSIDE RECORDS SUMMARY | 2023-12-04 21:45 | XMS_ITS | Encounter Summary ---
Author Organization [facility] Address [address] [place] [address] Care Team Providers Care Senior Hydrogeologist Name Role Phone Elizabeth Dsouza MD Primary Care Provider [phone] Reason for Referral * Radiology Services (Routine/Next Available) - Authorization Not Required Specialty Diagnoses / Procedures [facility] Referred To Contact Diagnoses Malignant neoplasm of right lung, unspecified part of lung (HCC-CMS) Procedures CT CHEST WO CONTRAST Kaiser Miller MD [address] [facility] [address] [place] [address] [facility] Referral ID Status Reason Start Date Expiration Date Visits Requested Visits Authorized [id number] Authorization Not Required 07/25/2023 1 1 Reason for Visit * Reason Comments Lung Cancer Encounter Details Date Type Department Care Team (Late st Contact Info) Description 07/25/2023 8:45 EDT Nurse Only [facility] Cancer Treatment [place] [address] [place], [place] [phone] Malignant neoplasm of right lung, unspecified part of lung (HCC-CMS) (Primary Dx) Social History Tobacco Use [...] as of this encounter Progress Notes * Divina Penny, RN - 07/25/2023 0845 EDT . documented in this encounter Plan of Treatment Scheduled Orders Name Type Priority Associated Diagnoses Orde r Schedule CT CHEST WO CONTRAST Imaging Routine Malignant neoplasm of right lung, unspecified part of lung (HCC-CMS) Expected: 01/25/2024 (Approximate), Expires: 01/24/2025 documented as of this encounter Visit Diagnoses Diagnosis Malignant neoplasm of right lung, unspecified part of lung (HCC-CMS)- Primary documented in this encounter Care Teams Senior Hydrogeologist Relationship Specialty Start Date End Date Elizabeth Dsouza MD [address] [place] [address] PCP - General 02/13/12 documented as of this encounter
--- OUTSIDE RECORDS SUMMARY | 2023-12-04 21:45 | XMS_ITS | Encounter Summary ---
Author Organization [facility] Address [address] [place] [address] Care Team Providers Care Speech And Hearing Director Name Role Phone Elizabeth Dsouza MD Primary Care Provider [phone] Encounter Details Date Type Department Care Team (Late st Contact Info) Description 11/29/2022 Documentation Visit [facility] Treatment [place] [address] [place] [address] Divina Penny, RN Social History Tobacco Use [...] this encounter Progress Notes * Divina Penny, ABEL - 11/29/2022 1106 EDT Yesy in for a follow up with . Yesy notes dyspnea with exertion and a will to stop smoking, she is down to 1 ppd. An appointment with Diana Covington was made. documented in this encounter Plan of Treatment Not on file documented as of this encounter Visit Diagnoses Not on filedocumented in this encounter Care Teams Speech And Hearing Director Relationship Specialty Start Date End Date Elizabeth Dsouza MD [address] [place] [phone] PCP - General 02/13/12 documented as of this encounter
--- OUTSIDE RECORDS SUMMARY | 2023-12-04 21:45 | XMS_ITS | Encounter Summary ---
Author Organization [facility] Address [address] [place] [address] Care Team Providers Care Valver Name Role Phone Elizabeth Dsouza MD Primary Care Provider [phone] Encounter Details Date Type Department Care Team (Late st Contact Info) Description 12/10/2022 Documentation Visit [facility] Cancer Treatment [place] [address] [place] [address] Divina Penny, RN Social History Tobacco Use [...] on filedocumented in this encounter Care Teams Valver Relationship Specialty Start Date End Date Elizabeth Dsouza MD [address] [place] [address] PCP - General 02/13/12 documented as of this encounter
--- OUTSIDE RECORDS SUMMARY | 2023-12-04 21:45 | XMS_ITS | Encounter Summary ---
Author Organization [facility] Address [address] [place] [address] Care Team Providers Care Towboat Operator Name Role Phone Elizabeth Dsouza MD Primary Care Provider [phone] Encounter Details Date Type Department Care Team (Late st Contact Info) Description 09/12/2022 Documentation Visit [facility] Cancer Treatment [place] [address] [place] [address] Acosta Alan MD [address] [facility], [facility] [address] [place] [address] Social History Tobacco Use Types Packs/Day Years [...] No 08/05/2022 documented as of this encounter Miscellaneous Notes * Treatment Summary - Acosta Alan MD - 09/12/2022 1519 EDT Images from the original note were not included. Radiation Oncology-Treatment Summary Diagnosis: Cancer Staging Squamous cell carcinoma of lung, right ([facility]) Staging form: Lung, AJCC 8th Edition - Clinical stage from 08/13/2022: Stage IA2 (cT1b, cN0, cM0) - Signed by Acosta Alan MD on08/13/2022 History of Present Illness: Melodie Hodge, who goes by Yesy, is a 67 y.o. with left upper lung squamous cancer. Medical history includes coronary artery disease, chronic kidney disease and a history of smoking. ? 05/23/22 Low-dose lung cancer screening CT showed a 1.5 cm RUL lung nodule. ??? 06/25/22 interventional radiology right lung biopsy: ??Suspicious for squamous cell carcinoma. ??? 07/26/2022 PET scan. The known 1 cm nodule in the right upper lobe has SUV max 4.7. No hypermetabolic mediastinal adenopathy. There are several small hypermetabolic left axillary nodes. The largest and most active of these has SUV max 5.8. These nodes are indeterminate. The location would be atypical for metastases from a contralateral lung mass. The low-dose CT scan done for attenuation correction and localization shows extensive coronary artery calcification. IMPRESSION 1. Hypermetabolic 1 cm right upper lobe nodule, consistent with malignancy. 2. Small hypermetabolic left axillary lymph nodes, indeterminate. These could be reactive, althoughmalignancy is not excluded. 3. No other evidence of metastatic disease 4. Incidental findings of coronary artery calcification and cholelithiasis. ??? 07/26/22 PFT: FEV1 83%, DLCO 74% ??? 07/30/[address] Damian: A. ??LUNG, RIGHT UPPER LOBE, ENDOBRONCHIAL ULTRASOUND-GUIDED FINE NEEDLE ASPIRATION:??Squamous cell carcinoma, keratinizing type. B. ??LYMPH NODE, STATION 4 L, LEFT LOWER PARATRACHEAL, ENDOBRONCHIAL ULTRASOUND- GUIDED FINE-NEEDLE ASPIRATION: ??Non-diagnostic. ??Pauci-cellular specimen composed predominantly of blood. C. LYMPH NODE, STATION 7, SUBCARINAL, ENDOBRONCHIAL ULTRASOUND-GUIDED FINE NEEDLE ASPIRATION: No malignant cells present. ??Lymphocytes present. ??? 08/05/22 Dr. Belkis Holm evaluated her in thoracic surgery at [facility]. She noted that the patient had a 6MW 07/15/2022 and the patient was able to walk 750 feet which was limited by leg pain. The patient has sciatic nerve leg pain. She had decreased her smoking to 1 pack/day which was down from 1.5-2 pack/day. Options of therapy were discussed including VATS RUL wedge resection and lymph node sampling. The option of radiation was also reviewed. The patient was reluctant to consider a surgical procedure as she was somewhat sore after her EBUS. ??? 08/13/22 Radiation Oncology consultation. The patient reports that since her bronchoscopy she ishaving a bit more cough productive of clear sputum. She denies hemoptysis. Weight has been relatively stable. She has had right sciatica type pain over the past year or so. She notes dyspnea on exertion and feels that she would have difficulty climbing a flight of stairs without stopping retirement up. On flat ground she does not have shortness of breath. She is reducing her smoking to about 1 pack/day down from approximately 2 packs/day. She has no angina. She lives in a mobile home and is activewith her activities of daily living but she is not exercising. We reviewed the images of her right lung tumor as below. She reports not having undergone mammogram screening in the past. Treatment Course: Dates: 09/04/22 - 09/09/22 Radiation Treatments Historical Plans 1_RtLung SABR Most recent treatment: Dose planned: 1,800 cGy (fraction 3 on 09/09/2022) Total: Dose planned: 5,400 cGy (3 fractions) Elapsed Days: 5 Reference Points RT LUNG Most recent treatment: Dose given: 1,800 cGy (on 09/09/2022) Total: Dose given: 5,400 cGy Elapsed Days: 5 Goal: Curative- Organ Sparing Chemo:No Technique:3-D conformal 4 arcs Modality: 6 MV photons Treatment Status: Complete as planned Treatment Response: None observed, not expected. Pain Management: none related to treatment. Tolerance: She tolerated treatment well without respiratory symptoms. Disposition: I will follow up [address] chest . Patient will call sooner if problems arise. Acosta Alan MD documented in this encounter Plan of Treatment Not on file documented as of this encounter Visit Diagnoses Not on filedocumented in this encounter Care Teams Towboat Operator Relationship Specialty Start Date End Date Elizabeth Dsouza MD [address] [place] [address] PCP - General 02/13/12 documented as of this encounter
--- OUTSIDE RECORDS SUMMARY | 2023-12-04 21:45 | XMS_ITS | Encounter Summary ---
Author Organization [facility] Address [address] [place] [address] Care Team Providers Care Clarity Specialists Name Role Phone Elizabeth Dsouza MD Primary Care Provider [phone] Reason for Referral * Radiology Services (Routine/Next Available) - Authorization Not Required Specialty Diagnoses / Procedures [facility] Referred To Contact Diagnoses Squamous cell carcinoma of lung, right (HCC-CMS) Procedures CT CHEST WO CONTRAST Kaiser Miller MD [address] [place] [phone] [facility] Referral ID Status Reason Start Date Expiration Date Visits Requested Visits Authorized [id number] Authorization Not Required 06/16/2023 1 1 Reason for Visit * Reason Onset Date Comments Follow-up 06/16/2023 Encounter Details Date Type Department Care Team (Late st Contact Info) Description 06/16/2023 Orders Only [facility] [address] [place] [address] Kaiser Miller MD [address] [place] [phone] Squamous cell carcinoma of lung, right [...] as of this encounter Progress Notes * Kaiser Miller MD - 06/16/[address] Chest - assess radiation treatment response documented in this encounter Plan of Treatment Not on file documented as of this encounter Results * CT CHEST WO [...] REGARDING THIS REPORT PLEASE CALL [facility] AT [phone] Narrative 07/23/2023 18:50 EDT PROCEDURE INFORMATION: Exam: [...] CONCERNS REGARDING THIS REPORT PLEASE CALL [facility] [phone] Kaiser Miller MD IMG CT ORDERABLES documented in this encounter Visit Diagnoses Diagnosis Squamous cell carcinoma of lung, right (HCC-CMS)- Primary Squamous cell carcinoma of lung, right (HCC-CMS) documented in this encounter Care Teams Clarity Specialists Relationship Specialty Start Date End Date Elizabeth Dsouza MD [address] [place] [phone] PCP - General 02/13/12 documented as of this encounter
--- OUTSIDE RECORDS SUMMARY | 2023-12-04 21:45 | XMS_ITS | Encounter Summary ---
Author Organization [facility] Address [address] [place] [address] Care Team Providers Care Asphalt Tile Floor Layer Name Role Phone Elizabeth Dsouza MD Primary Care Provider [phone] Encounter Details Date Type Department Care Team (Late st Contact Info) Description 09/23/2023 Lab Requisition [facility] Pathology & Laboratory Medicine - [facility] [address] [place], [place] [phone] Elizabeth Dsouza MD [address] [place] [phone] Encounter for screening for malignant neoplasm of cervix; Encounter for general adult medical examination with abnormal findings Social History Tobacco Use Types Packs/Day Years [...] Procedure Name Priority Date/Time Associated Diagnosis Comments PAP TEST Today 09/19/2023 15:00 EDT Encounter for screening for malignant neoplasm of cervix Encounter for general adult medical examination with abnormal findings documented in this encounter Results * PAP TEST (09/19/2023 15:00 EDT) Specimens A. Cervix and/or Endocervix , ThinPrep Imaging System with Manual Evaluation 09/26/2023 12:41 [facility] Specimen Adequacy Satisfactory for Evaluation - transformation zone component absent Scant squamous epithelial component 09/26/2023 12:41 [facility] General Categorization Epithelial Cell Abnormality 09/26/2023 12:41 [facility] Descriptive Diagnosis Squamous Cell Abnormality - Atypical squamous cells, undetermined significance (ASC-US). 09/26/2023 12:41 [facility] Diagnosis Comment Few nucleated squamous cells present with abundant hyperkeratosis. 09/26/2023 12:41 [facility] Educational Comments [facility] recommends following the ASCCP's management guidelines which may be found at www.asccp.org 09/26/2023 12:41 [facility] Attestation By the signature below, the attending physician certifies that they have personally conducted a gross and/or microscopic examination of the described specimens and rendered or confirmed the above diagnosis. 09/26/2023 12:41 [facility] at 1241 Clinical History SEE BELOW 09/26/19 12:41 [facility] Performing Lab [facility] 09/26/2023 12:41 [facility] Scanned Images 09/26/2023 12:41 [facility] Pap Test CERVIX UTERI STRUCTURE / Unknown 09/19/2023 15:00 EDT 09/23/2023 13:19 EDT Elizabeth Dsouza MD PATHOLOGY ORDERABLES [facility] [address] [place], [place] [phone] documented in this encounter Visit Diagnoses Diagnosis Encounter for screening for malignant neoplasm of cervix Screening for malignant neoplasm of the cervix Encounter for general adult medical examination with abnormal findings Unspecified general medical examination documented in this encounter Care Teams Asphalt Tile Floor Layer Relationship Specialty Start Date End Date Elizabeth Dsouza MD [address] [place] [phone] PCP - General 02/13/12 documented as of this encounter
--- OUTSIDE RECORDS SUMMARY | 2023-12-04 21:45 | XMS_ITS ---
Author Organization [facility] Address [address] [place] [address] Care Team Providers Care Cnp Name Role Phone Elizabeth Dsouza MD Primary Care Provider [phone] Active Problems Patient Care Coordination No te Formatting of this note migh t be different from the original. Patient has given permission for [facility] to verbally discuss the following information with Raheel Jane, boyfriend, and Jim Hodge, son, who have the following relationships to the patient: as noted : Scheduling/Appt/Billing/Payment Information (does not include clinical information unless specifically indicated with separate option) Medical Information including symptoms, diagnosis, medications, test results and treatment plan (does not include Mental Health unless specifically indicated with separate option) Permission remains in effect until the patient elects to revoke it. Problem Noted Date Diagnosed Date Squamous cell carcinoma of lung, right ([facility]) 08/13/2022 Cancer Staging:Clinical stage from 08/13/2022:Stage IA2(cT1b, cN0, cM0) - Signed by Acosta Alan MD on 08/13/2022 Lung nodule 07/19/2022 Overview: Added automatically from request for surgery [id number] Current Oncology Plans No current plan information found. Past Plans No past plan information found. Radiation Treatments * Plan Last Treated On Elapsed Days Fractions Treated Prescribed Fraction Dose Prescribed Total Dose 1_RtLung SABR 09/09/2022 5 3 of 3 1,800 cGy 5,400 cGy Reference Point Last Treated On Elapsed Days Session Dose Total Dose RT LUNG 09/09/2022 5 1,800 cGy 5,400 cGy Lifetime Dose Tracking * Chemical Lifetime Dose Automatic Entry Manual Entr y Fluoro Time 3.3 minutes 3.3 minutes 0 minutes Air Kerma 129.05 mGy 129.05 mGy 0 mGy Dose Area Product 29,312.2 mGy-cm2 29,312.2 mGy-cm2 0 mGy-cm2
--- OUTSIDE RECORDS SUMMARY | 2023-12-04 21:45 | XMS_ITS | Encounter Summary ---
Author Organization [facility] Address [address] [place] [address] Care Team Providers Care Oval Or Circular Glass Cutter Name Role Phone Elizabeth Dsouza MD Primary Care Provider [phone] Encounter Details Date Type Department Care Team (Late st Contact Info) Description 09/09/2022 Results Only [facility] Radiation Oncology - [address] [address] Unknown, Provider, Social History Tobacco Use Types [...] Comments RAD ONC ARIA SESSION SUMMARY Routine 09/09/2022 10:36 EDT documented in this encounter Results * RAD ONC ARIA SESSION SUMMARY (09/09/2022 10:36 EDT) Course ID C1 ARIA RADIATION ONCOLOGY Course Intent Curative ARIA RADIATION ONCOLOGY Course First Treatment Date 09/04/2022 11:17 [facility]A RADIATION ONCOLOGY Course Last Treatment Date 09/09/2022 10:36 [facility]A RADIATION ONCOLOGY Course Elapsed Days 5 ARIA RADIATION ONCOLOGY Reference Point ID RT LUNG ARIA RADIATION ONCOLOGY Reference Point Dosage Given to Date 54 Gy ARIA RADIATION ONCOLOGY Reference Point Session [...] Reference Point RT LUNG ARIA RADIATION ONCOLOGY 09/09/2022 10:3 6 EDT Provider Unknown RADIATION ONCOLOGY O EMMAERAWILLIAM ARIA RADIATION ONCOLOGY documented in this encounter Visit Diagnoses Not on filedocumented in this encounter Care Teams Oval Or Circular Glass Cutter Relationship Specialty Start Date End Date Elizabeth Dsouza MD [address] [place] [phone] PCP - General 02/13/12 documented as of this encounter
--- OUTSIDE RECORDS SUMMARY | 2023-12-04 21:45 | XMS_ITS | Clinical Summary ---
Author Organization [facility] Address [address] [place] [address] Care Team Providers Care Splitting Machine Tender Name Role Phone Elizabeth Dsouza MD Primary Care Provider [phone] Allergies Active Allergy Reactions Criticality Noted Date Comments Latex Rash Medium 07/15/2022 Morphine Nausea And Vomiting Medium 12/28/2021 Oxycodone Nausea And Vomiting Medium 07/23/2022 Medications Medication Sig Dispensed Refills Start Date End Date Status pregabalin (LYRICA) 50 mg capsule Take 1 Capsule by mouth 2 times daily. Active traZODone (DESYREL) 50 mg tablet Take 3 Tablets by mouth at bedtime. Active famotidine (PEPCID) 20 mg tablet Take 1 Tablet by mouth every morning. Active cilostazoL (PLETAL) 100 mg tablet Take 1 Tablet by mouth daily. Active tiotropium (SPIRIVA) 18 mcg inhalation capsule Inhale 1 Capsule as directed daily. Active rosuvastatin (CRESTOR) 10 mg tablet Take 4 Tablets by mouth daily. Active aspirin chewable 81 mg tablet Take 1 Tablet by mouth daily. Active albuterol 90 mcg/actuation inhaler Inhale 2 Puffs as directed every 4 hours as needed for Wheezing. Active losartan (COZAAR) 25 mg tablet Take 1 Tablet by mouth daily. Active nitroglycerin (NITROSTAT) 0.[address] 1 Tablet under the tongue every 5 minutes as needed for Chest Pain. Active omeprazole (PRILOSEC) 20 mg capsule Take 1 Capsule by mouth daily. Active HYDROcodone-acetamino phen (NORCO) 5-325 mg tablet Take 1 Tablet by mouth every 6 hours. Active Active Problems Patient Care Coordination No te Formatting of this note migh t be different from the original. Patient has given permission for [facility] to verbally discuss the following information [...] Date Squamous cell carcinoma of lung, right (HCC-CMS) 08/13/2022 Cancer Staging:Clinical stage from 08/13/2022:Stage IA2(cT1b, cN0, cM0) - Signed by Acosta Alan MD on 08/13/2022 Lung nodule 07/19/2022 Overview: Added automatically from request for surgery [id number] Encounters Date Type Department Care Team Description 12/04/2023 20:26 EDT - 12/04/2023 21:36 EDT Emergency [facility] Emergency Department [address] [place] [address] Anika Martinez MD Anemia, unspecified type (Primary Dx) Discharge Disposition: Home or Self Care 10/22/2023 6:59 EDT - 10/22/2023 23:59 EDT Hospital Encounter [facility] Endoscopy [address] [place] [address] Mahi Hernandez MD Melena Discharge Disposition: Home or Self Care 10/01/2023 9:23 EDT - 10/01/2023 23:59 EDT Hospital Encounter [facility] Endoscopy [address] [place] [address] Mahi Hernandez MD Dysphagia, unspecified type Discharge Disposition: Home or Self Care 10/01/2023 Orders Only [facility] Gastroenterology [address] [place] [address] Mahi Hernandez MD Melena (Primary Dx) 09/23/2023 Lab Requisition [facility] Pathology & Laboratory Medicine - [address] [address] Elizabeth Dsouza MD Encounter for screening for malignant neoplasm of cervix; Encounter for general adult medical examination with abnormal findings from Last 3 Months Surgical History Surgery Date Site/Laterality Comments CARPAL TUNNEL RELEASE Bilateral CARDIAC SURGERY 03/17/1995 - 03/16/1996 Stent x 2 Medical History Medical History Date Comments Lung disease Anemia 07/23/22- found to have bleeding on endoscopy. cauterized- no problems since GERD (gastroesophageal reflux disease) 07/23/22- well controlled w meds.able to lie flat S/P cardiac cath 199507/23/22- s/p 2 D ES Hypertension 07/23/22- well con trolled w/ meds Diverticulitis large intestine COPD (chronic obstructive pu lmonary disease) ([facility]) 07/23/22- well controlled w/ u se of inhalers History of general anesthesia 07/23/22- no complications per pt Edentulous Exercise involving housework Activity, other involving cardiorespiratory exercise 07/23/22- + SOB w/ exertion, hx COPD Exercise involving walking CAD (coronary artery disease) 07/23/22- s/p 2 JÚNIOR History of blood transfusion 07/23- found to have bleeding on endoscopy. cauterized- no problems since Depression 07/23/22- no meds. well controlled at this time Arthritis 07/23/22- legs Back pain 07/23/22- pinched siatic nerve Shortness of breath 07/23/22- w/ e xertion, hx COPD Family History Medical History Relation Comments Emphysema Father Cancer Sister Heart Disease Sister Relation Status Comments Father Sister Social History Tobacco Use Types Packs/Day Years [...] 7:40 EDT Sexual Orientation Not on file Obstetrics History Last Filed Vital Signs Vital Sign Reading Time Taken Comments Blood Pressure 148/96 12/04/20232100 EDT Pulse 78 12/04/20231933 EDT Temperature 36.7 ??C (98 ??F) 12/04/20231935 EDT Respiratory Rate 16 12/04/20232124 EDT Oxygen Saturation 97% 12/04/20232124 EDT Inhaled Oxygen Concentration - - Weight 65.3 kg (144 lb) 12/04/20231933 EDT Height 157.5 cm (5' 2) 12/04/20231933 EDT Body Mass Index 26.34 12/04/20231933 EDT Plan of Treatment Health Maintenance Due Date Last Done Comments Hepatitis C Screen 1955 COVID-19 Vaccine (#1) 1961 RSV Immunization ( o r 60+ Years) (1 - 1-dose 60+ series) 2016 Fall Risk Screening 2021 Lung Cancer Screening 07/22/2024 07/23/2023, 023 Procedures Procedure Name Priority Date/Time Associated Diagnosis Comments TYPE AND SCREEN STAT 12/04/2023 20:49 EDT BLOOD BANK HOLD STAT 12/04/2023 20:41 EDT PROTIME Add-On 12/04/2023 20:41 EDT IRON Add-On 12/04/2023 20:41 EDT COMPREHENSIVE METABOLIC PANEL (CMP) STAT Add-on 12/04/2023 20:41 EDT COMPLETE BLOOD COUNT AND DIFFERENTIAL STAT Add-on 12/04/2023 20:41 EDT CAPSULE ENDOSCOPY Routine 10/22/2023 8:0 0 EDT Melena ECG REPORT - SCANNED 10/03/2023 11:20 EDT SURGICAL PATHOLOGY Routine 10/01/2023 12 :41 EDT Dysphagia, unspecified type UPPER ENDOSCOPY (EGD) Routine 10/01/2023 10:30 EDT Dysphagia, unspecified type PAP TEST Today 09/19/2023 15:00 EDT Encounter for screening for malignant neoplasm of cervix Encounter for general adult medical examination with abnormal findings CT CHEST WO CONTRAST Routine 07/23/2023 17:06 EDT Squamous cell carcinoma of lung, right (HCC-CMS) from Last 3 Months or Most Recently Relevant to Health Maintenance Results * TYPE AND SCREEN (12/04/2023 20:49 EDT) [facility] Rh Factor Negative 12/04/2023 21:31 [facility] Antibody Screen Negative 12/04/2023 21:31 [facility] BLOOD BANK Specimen Expires: 12/07/2023 @ 23:59 12/04/2023 21:31 [facility] BLOOD BANK Blood VENOUS BLOOD / Unknown Venipuncture / Unknown 12/04/2023 20:49 EDT 12/04/2023 20:51 EDT Anika Martinez MD BLOOD BANK TESTS Performing Organization Address City/State/[facility] Co de Phone Number [facility] [place] [address] * (ABNORMAL) PROTIME (12/04/2023 20:41 EDT) I.N.R. 1.2(H) 0.9 - 1.1 Ratio 12/04/2023 20:55 [facility] Pro Time 14.0(H) 9.7 - 12.8 secs 12/04/2023 20:55 [facility] Blood VENOUS BLOOD / Unknown Venipuncture / Unknown 12/04/2023 20:41 EDT 12/04/2023 20:43 EDT [facility] LABORATORY SERVICES - 12/04/2023 20:55 EDT Moderate Intensity Coumadin INR = 2.0-3.0 Adjustments in anticoagulant therapy dose should be based on the INR and NOT on the Protime. Anika Martinez MD HEMATOLOGY & PF4 O RDERABLES [facility] [address] [place] [address] * (ABNORMAL) COMPLETE BLOOD COUNT AND DIFFERENTIAL (12/04/2023 20:41 EDT) WBC 4.62 4.00 - 12.40 K/cmm 12/04/2023 20:49 [facility] RBC 3.21(L) 3.86 - 5.04 M/cmm 12/04/2023 20:49 [facility] Hemoglobin 7.6(L) 11.6 - 15.2 g/dL 12/04/2023 20:49 [facility] HCT 27.6(L) 34.9 - 44.4 % 12/04/2023 20:49 [facility] MCV 86 81 - 98 fL 12/04/2023 20:49 [facility] MCH 23.7(L) 26.7 - 33.3 pg 12/04/2023 20:49 [facility] Hypochromia 1+ 12/04/2023 20:49 [facility] MCHC 27.5(L) 32.1 - 35.9 g/dL 12/04/2023 20:49 [facility] RDW-CV 18.0(H) <14.7 % 12/04/2023 20:49 [facility] RDW-SD 57.0(H) <50.4 fl 12/04/2023 20:49 [facility] Anisocytosis 1+ 12/04/2023 20:49 [facility] PLT 239 141 - 377 K/cmm 12/04/2023 20:49 [facility] MPV 10.1 9.5 - 12.7 fL 12/04/2023 20:49 [facility] % Neutrophils 65.8 Not Indicated % 12/04/2023 20:49 [facility] % Lymphocytes 23.6 Not Indicated % 12/04/2023 20:49 [facility] % Monocytes 7.6 Not Indicated % 12/04/2023 20:49 [facility] % Eosinophils 2.4 Not Indicated % 12/04/2023 20:49 [facility] % Basophils 0.4 Not Indicated % 12/04/2023 20:49 [facility] % Immature Grans 0.2 <0.9 % 12/04/19 20:49 [facility] Absolute Neutrophils 3.04 2.20 - 8.85 K/cmm 12/04/2023 20:49 [facility] Absolute Lymphocytes 1.09 1.09 - 3.30 K/cmm 12/04/2023 20:49 [facility] Absolute Monocytes 0.35 0.10 - 0.80 K/cmm 12/04/2023 20:49 [facility] Absolute Eosinophils 0.11 0.03 - 0.61 K/cmm 12/04/2023 20:49 [facility] ABS Basophils 0.02 0.01 - 0.11 K/cmm 12/04/2023 20:49 [facility] Absolute Immature Grans 0.01 0.00 - 0.06 K/cmm 12/04/2023 20:49 [facility] Type of Differential: Auto 12/04/2023 20:49 [facility] Blood VENOUS BLOOD / Unknown Venipuncture / Unknown 12/04/2023 20:41 EDT 12/04/2023 20:43 EDT Anika Martinez MD PACKAGES & DNA PRO BE ORDERABLES [facility] [address] [place] [address] * BLOOD BANK HOLD (12/04/2023 20:41 EDT) Hold BB Spec will exp at 23:59, 3 days from collect date 12/04/2023 20:44 EDT [facility] B[facility] B[facility] Blood VENOUS BLOOD / Unknown Venipuncture / Unknown 12/04/2023 20:41 EDT 12/04/2023 20:43 EDT Anika Martinez MD BLOOD BANK TESTS Performing Organization Address City/[facility]/ZIP Co de Phone Number [facility] [address] [place] [address] * IRON (12/04/2023 20:41 EDT) [facility] Iron 53 37 - 170 ??g/dL 12/04/2023 21:17 [facility] Blood VENOUS BLOOD / Unknown Venipuncture / Unknown 12/04/2023 20:41 EDT 12/04/2023 20:43 EDT Anika Martinez MD CHEMISTRY & BLOOD GAS ORDERABLES [facility] [address] [place] [address] * (ABNORMAL) COMPREHENSIVE METABOLIC PANEL (CMP) (12/04/2023 20:41 EDT) [facility] Sodium 139 136 - 145 mmol/L 12/04/2023 21:17 [facility] Potassium 3.9 3.5 - 5.0 mmol/L 12/04/2023 21:17 [facility] Chloride 107 96 - 110 mmol/L 12/04/2023 21:17 [facility] CO2 Total 21(L) 22 - 32 mmol/L 12/04/2023 21:17 [facility] Glucose 93 70 - 99 mg/dl 12/04/2023 21:17 [facility] BUN 10 10 - 26 mg/dL 12/04/2023 21:17 [facility] Creatinine 1.49(H) 0.52 - 1.04 mg/dL 12/04/2023 21:17 [facility] eGFR 38(L) >60 mL/min/1.7 3m2 12/04/2023 21:17 [facility] Total Protein 6.9 6.3 - 8.2 g/dL 12/04/2023 21:17 [facility] Albumin 4.2 3.4 - 4.9 g/dL 12/04/2023 21:17 [facility] Alkaline Phosphatase 68 38 - 126 U/L 12/04/2023 21:17 [facility] AST 20 15 - 46 U/L 12/04/2023 21:17 [facility] ALT 13 <35 U/L 12/04/2023 21:17 [facility] Bilirubin, Total 1.3 <1.4 mg/dL 12/04/19 21:17 [facility] Calcium 9.6 8.5 - 10.5 mg/dL 12/04/2023 21:17 [facility] Albumin/Globulin Ratio 1.6 1.0 - 2.5 12/04/2023 21:17 [facility] Anion Gap 11 5 - 14 mmol/L 12/04/2023 21:17 [facility] Blood VENOUS BLOOD / Unknown Venipuncture / Unknown 12/04/2023 20:41 EDT 12/04/2023 20:43 EDT Anika Martinez MD CHEMISTRY & BLOOD GAS ORDERABLES [facility] [address] [place] [id number] * CAPSULE ENDOSCOPY (10/22/2023 8:00 EDT) Anatomical Region Laterality Modality Endoscopy Narrative 10/22/2023 8:00 EDT [facility] ?? [address], [place], [place] [address] ?? Patient Name ?MELODIE HODGE Date of ?1955 Record Number ?[id number] Date/Time of Procedure ?10/22/2023, 08:00:00 AM Endoscopist ?Mahi Hernandez MD ?? Aging Box Hand ? Referring Physician(s) ?? MAHI HERNANDEZ , Anesthesiologist ? Procedure Performed: CAPSULE ENDOSCOPY Indications for Exam: recurrent melena, normal EGD and colonoscopy Instruments: ? Pillcam SB capsule Medications: ?None ? Visualization: ? Good ?Tolerance: Good ?Complications: None ? Extent of Exam: ?Limitations: ?? Procedure Technique: A physical exam was performed. Informed consent was obtained from the patient after explaining all the risks (perforation, bleeding, infection and adverse effects to the medicine) , benefits and alternatives to the procedure which the patient appeared to understand and so stated. ??The patient was connected to the monitoring devices and placed in the left lateral position. Continuous oxygen was provided with a nasal cannula and IV medicine administered by an Anesthesiologist through an indwelling cannula. After adequate sedation was achieved, the esophagus was intubated and the scope advanced under direct visualization to the . The ??was identified by visual landmarks. The scope was subsequently removed slowly while carefully examining the color, texture, anatomy, and integrity of the mucosa on the way out. The patient was subsequently transferred to the recovery area in satisfactory condition. The following findings were noted: Findings: -first gastric, first duodenal, and first colonic images identified -no active bleeding identified -scattered AVMs (arteriovenous malformations) noted in distal duodenum- these are likely the source of intermittent melena Endoscopic Diagnosis: duodenal AVMs Recommendations: -if bleeding recurs, may try enteroscopy with APC -transfuse to goal Hgb>7 as needed Sedation Start: ?Sedation End: Signature: Mahi Hernandez MD, M.D. This note was electronically signed on 10/28/2023 03:55:05 PM By Mahi Hernandez MD M.D. Mahi Hernandez MD GI PROCEDURE ORDERAB LES * ECG REPORT - SCANNED (10/03/2023 11:20 EDT) 10/03/2023 11:2 0 EDT Scan 2 Math And Science Instructor PROCEDURE/MINOR PHILIPPE GICAL ORDERABLES * SURGICAL PATHOLOGY (10/01/2023 12:41 EDT) Note to Patient The following pathology results have been interpreted by your pathologist and may be available to you before your health provider has had the opportunity to review them. Please allow time for your provider to receive these results and explore management options, if applicable. 10/02/2023 14:48 [facility] Final Diagnosis A. DISTAL ESOPHAGUS BIOPSY: - Squamous mucosa with mild chronic inactive esophagitis and reactive changes. - Negative for eosinophilia. B. PROXIMAL ESOPHAGUS BIOPSY: - Squamous mucosa with mild chronic inactive esophagitis and reactive changes. - Negative for eosinophilia. 10/02/2023 14:48 [facility] Attestation By the signature below, the attending physician certifies that they have 1) personally conducted a gross and/or microscopic examination of the described specimen(s), and/or personally interpreted the results of laboratory testing of the described specimen(s), and 2) personally rendered or confirmed the above diagnosis. 10/02/2023 14:48 [facility] at 1448 Clinical History Dysphagia, unspecified type 10/02/2023 14:48 [facility] Gross Description A. Received in formalin with, Melodie Hodge and, esophagus Bx distal with forceps and consists of 2 portions of pale franco tissue, 3 mm and 4 x 3 x 2 mm. In toto, A1. B. Received in formalin with, Melodie Hodge and, esophagus Bx proximal with forceps and consists of a 5 x 3 x 2 mm portion of pale franco tissue. In toto, B1. CHENG LEIVA([facility]) 10/01/2023 14:41 10/02/2023 14:48 EDT [facility] Performing Lab [facility] 10/02/2023 14:48 EDT [facility] Scanned Images 10/02/2023 14:48 EDT [facility] Tissue ESOPHAGEAL STRUCTURE / Unknown 10/01/2023 12:41 EDT 10/01/2023 14:31 EDT Tissue specimen (specimen) ESOPHAGEAL STRUCTURE / Unknown 10/01/2023 12:41 EDT 10/01/2023 14:31 EDT Mahi Hernandez MD PATHOLOGY ORDERABLES Performing Organization Address City/State/[facility] Co de Phone Number [facility] [address] [place] [address] * UPPER ENDOSCOPY (EGD) (10/01/2023 10:30 EDT) Anatomical Region Laterality Modality Endoscopy Narrative 10/01/2023 10:30 EDT [facility] ?? [place] [address] ?? Patient Name ?MELODIEJoel HODGE Date of ?1955 Record Number ?[id number] Date/Time of Procedure ?10/01/2023, 10:30:00 AM Endoscopist ?Mahi Hernandez MD ?? Aging Box Hand ? Referring Physician(s) ?? Elizabeth Dsouza M.D. Anesthesiologist ? Procedure Performed: Upper Endoscopy (EGD) Indications for Exam: dysphagia, melena Instruments: ? GIF-[id number] ([id number]) Medications: ?Fentanyl 100 mcg, Versed 5 mg, IV Bendaryl 50mg I was in continuous face to face attendance during the administration of moderate sedation services that were monitored by an independent trained observer who had no other duties during the procedure. ? Visualization: ? Good ?Tolerance: Good ?Complications: None ? Extent of Exam: ?Second Part of Duodenum ? Limitations: ?? Procedure Technique: A physical exam was performed. Informed consent was obtained from the patient after explaining all the risks (perforation, bleeding, infection and adverse effects to the medicine) , benefits and alternatives to the procedure which the patient appeared to understand and so stated. ??The patient was connected to the monitoring devices and placed in the left lateral position. Continuous oxygen was provided with a nasal cannula and IV medicine administered ??through an indwelling cannula. After adequate sedation was achieved, the esophagus was intubated and the scope advanced under direct visualization to the Second Part of Duodenum. The Second Part of Duodenum was identified by visual landmarks. The scope was subsequently removed slowly while carefully examining the color, texture, anatomy, and integrity of the mucosa on the way out. The patient was subsequently transferred to the recovery area in satisfactory condition. The following findings were noted: Findings: Esophagus: normal, biopsies taken in distal and proximal esophagus given history of dysphagia Stomach: normal Duodenum: normal Endoscopic Diagnosis: Normal EGD Recommendations: Continue PPI Will schedule capsule endoscopy (patient consented today) to evaluate for cause of melena Sedation Start: 12:27:32 PM ?? Sedation End: 12:41:39 PM Signature: Mahi Hernandez MD, Marcelo. This note was electronically signed on 10/01/2023 12:45:59 PM By Mahi Hernandez MD M.D. Elizabeth Dsouza MD GI PROCEDURE ORDERAB LES * PAP TEST (09/19/2023 15:00 EDT) Specimens A. Cervix and/or Endocervix , ThinPrep Imaging System with Manual Evaluation 09/26/2023 12:41 EDT [facility] Specimen Adequacy Satisfactory for Evaluation - transformation zone component absent Scant squamous epithelial component 09/26/2023 12:41 EDT [facility] General Categorization Epithelial Cell Abnormality 09/26/2023 12:41 [facility] Descriptive Diagnosis Squamous Cell Abnormality - Atypical squamous cells, undetermined significance (ASC-US). 09/26/2023 12:41 T [facility] Diagnosis Comment Few nucleated squamous cells present with abundant hyperkeratosis. 09/26/2023 12:41 T [facility] Educational Comments [facility] recommends following the ASCCP's management guidelines which may be found at www.asccp.org 09/26/2023 12:41 [facility] Attestation By the signature below, the attending physician certifies that they have personally conducted a gross and/or microscopic examination of the described specimens and rendered or confirmed the above diagnosis. 09/26/2023 12:41 [facility] at 1241 Clinical History SEE BELOW 09/26/19 12:41 [facility] Performing Lab [facility] 09/26/2023 12:41 [facility] Scanned Images 09/26/2023 12:41 [facility] Pap Test CERVIX UTERI STRUCTURE / Unknown 09/19/2023 15:00 EDT 09/23/2023 13:19 EDT Elizabeth Dsouza MD PATHOLOGY ORDERABLES [facility] [address], [place] [address] * CT CHEST WO CONTRAST (07/23/2023 17:06 [...] REGARDING THIS REPORT PLEASE CALL [facility] AT [phone] Narrative 07/23/2023 18:50 EDT PROCEDURE INFORMATION: Exam: [...] CONCERNS REGARDING THIS REPORT PLEASE CALL [facility] [phone] Kaiser Miller MD IMG CT ORDERABLES from Last 3 Months or Most Recently Relevant to Health Maintenance Advance Directives For more information, please contact: [phone] Documents on File Type Date Recorded Patient Seismograph Recorder Expl anation Advance Directive 08/13/2022 ok advance directive Care Teams Splitting Machine Tender Relationship Specialty Start Date End Date Elizabeth Dsouza MD [address] [place] [id number] PCP - General 02/13/12
--- OUTSIDE RECORDS SUMMARY | 2023-12-04 21:45 | XMS_ITS | Encounter Summary ---
Author Organization [facility] Address [address] [place] [address] Care Team Providers Care Service Developer Name Role Phone Elizabeth Dsouza MD Primary Care Provider [phone] Encounter Details Date Type Department Care Team (Late st Contact Info) Description 09/06/2022 11:00 EDT - 09/06/2022 23:59 EDT Hospital Encounter [facility] Cancer Treatment [place] [address] [place] [address] Acosta Alan MD [address] [place] [address] [address] [place] [address] Discharge Disposition: Home or Self [...] on filedocumented in this encounter Care Teams Service Developer Relationship Specialty Start Date End Date Elizabeth Dsouza MD [address] [place] [id number] PCP - General 02/13/12 documented as of this encounter
--- OUTSIDE RECORDS SUMMARY | 2023-12-04 21:45 | XMS_ITS | Encounter Summary ---
Author Organization [facility] Address [address] [place] [address] Care Team Providers Care Material Requirements Worker Name Role Phone Elizabeth Dsouza MD Primary Care Provider Reason for Referral * Radiology Services (Routine/Next Available) - Authorization Not Required Specialty Diagnoses / Procedures [facility] Referred To Contact Diagnoses Squamous cell carcinoma of lung, right (HCC-CMS) Procedures CT CHEST WO CONTRAST Acosta Alan MD [address] [address] [facility] [place] Referral ID Status Reason Start Date Expiration Date Visits Requested Visits Authorized [id number] Authorization Not Required 09/09/2022 1 1 Reason for Visit * Radiology Services (Routine/Next Available) - Authorization Not Required Specialty Diagnoses / Procedures Referred By Loli rsoe Referred To Contact Diagnoses Squamous cell carcinoma of lung, right (HCC-CMS) Procedures CT CHEST WO CONTRAST Acosta Alan MD [address] [place] [phone] [facility] [place] Referral ID Status Reason Start Date Expiration Date Visits Requested Visits Authorized [id number] Authorization Not Required 09/09/2022 1 1 Encounter Details Date Type Department Care Team (Latest Contact Info) Description 11/19/2022 8:56 EDT - 11/19/2022 23:59 EDT Hospital Encounter [facility] CT Scan [address] [place] [address] Squamous cell carcinoma of lung, right (HCC-CMS) [...] Diagnosis Comments CT CHEST WO CONTRAST Routine 11/19/2022 9:09 EDT Squamous cell carcinoma of lung, right (HCC-CMS) documented in this encounter Results * CT CHEST WO CONTRAST (11/19/2022 9:09 EDT) Anatomical Region Laterality Modality Chest Computed Tomogra phy 11/19/2022 12:0 0 EDT Impressions 11/19/2022 12:00 EDT 1. Mild interval decrease in size of right upper lobe spiculated nodule with new tiny central cavitation. 2. Stable ill-defined right upper lobe 4 mm nodule. Continued imaging surveillance is recommended. 3. No disease progression identified. [id number] Narrative 11/19/2022 12:00 EDT INDICATION: s/p SABR radiation right lung completed 09/09/22; Non-small cell lung cancer (NSCLC), non-metastatic, assess treatment response; s/p SABR radiation right lung completed 09/09/22;C34.91:Squamous cell carcinoma of lung, right (HCC-CMS). COMPARISON: Low-dose lung screening CT 05/23/2022 and PET/CT 07/26/2022. TECHNIQUE: Noncontrast CT scan of the chest was performed. FINDINGS: Lower neck: Visualized portions of the thyroid, lower neck and supraclavicular fossa are unremarkable. Chest wall soft tissues: No axillary lymphadenopathy or chest wall mass. The small left axillary lymph node seen on the previous PET/CT are unchanged in size. Mediastinum and frannie: No pathologically enlarged mediastinal or hilar lymph nodes. Heart and mediastinal vasculature: Moderate coronary artery calcification. No cardiomegaly. Mild atherosclerosis of the thoracic aorta without aneurysm. Large airways: Mild diffuse bronchial wall thickening. Lungs: Paraseptal and centrilobular emphysema. Mild interval decrease in size of right upper lobe spiculated nodule which now measures approximately 10 mm and contains a tiny central cavitation. Unchanged ill-defined 4 mm in nodule within the right upper lobe (image 161, series 3). No new nodules. No pulmonary consolidation. Pleura: No pleural mass, effusion or pneumothorax. Upper abdomen: Cholelithiasis. Bones: No fracture or suspicious bone lesion. Procedure Note Amilcar Funk MD - 11/19/2022 INDICATION: s/p SABR radiation right lung completed 09/09/22; Non-smallcell lung cancer (NSCLC), non-metastatic, assess treatment response; s/pSABR radiation right lung completed 09/09/22;C34.91:Squamous cell carcinomaof lung, right (HCC-CMS). COMPARISON: Low-dose lung screening CT 05/23/2022 and PET/CT 07/26/2022. TECHNIQUE: Noncontrast CT scan of the chest was performed. FINDINGS: Lower neck: Visualized portions of the thyroid, lower neck andsupraclavicular fossa are unremarkable. Chest wall soft tissues: No axillary lymphadenopathy or chest wall mass.The small left axillary lymph node seen on the previous PET/CT areunchanged in size. Mediastinum and frannie: No pathologically enlarged mediastinal or hilarlymph nodes. Heart and mediastinal vasculature: Moderate coronary artery calcification.No cardiomegaly. Mild atherosclerosis of the thoracic aorta withoutaneurysm. Large airways: Mild diffuse bronchial wall thickening. Lungs: Paraseptal and centrilobular emphysema. Mild interval decrease insize of right upper lobe spiculated nodule which now measuresapproximately 10 mm and contains a tiny central cavitation. Unchangedill-defined 4 mm in nodule within the right upper lobe (image 161, series3). No new nodules. No pulmonary consolidation. Pleura: No pleural mass, effusion or pneumothorax. Upper abdomen: Cholelithiasis. Bones: No fracture or suspicious bone lesion. IMPRESSION 1. Mild interval decrease in size of right upper lobe spiculated nodulewith new tiny central cavitation. 2. Stable ill-defined right upper lobe 4 mm nodule. Continued imagingsurveillance is recommended. 3. No disease progression identified. [id number] Acosta Alan MD IMG CT ORDERABLES documented in this encounter Visit Diagnoses Diagnosis Squamous cell carcinoma of lung, right (HCC-CMS) documented in this encounter Care Teams Material Requirements Worker Relationship Specialty Start Date End Date Elizabeth Dsouza MD [address] [place] [address] PCP - General 02/13/12 documented as of this encounter
--- OUTSIDE RECORDS SUMMARY | 2023-12-04 21:45 | XMS_ITS | Encounter Summary ---
Author Organization [facility] Address [address] [place] [address] Care Team Providers Care Gleason Operator Name Role Phone Elizabeth Dsouza MD Primary Care Provider [phone] Reason for Referral * Radiology Services (Routine/Next Available) - Authorization Not Required Specialty Diagnoses / Procedures [facility] Referred To Contact Diagnoses Squamous cell carcinoma of lung, right (HCC-CMS) Procedures CT CHEST WO CONTRAST Acosta Alan MD [address] [place] [phone] [facility] Referral ID Status Reason Start Date Expiration Date Visits Requested Visits Authorized [id number] Authorization Not Required 09/09/2022 1 1 Encounter Details Date Type Department Care Team (Late st Contact Info) Description 09/09/2022 Radiation Therapy Visit [facility] Cancer Treatment [place] [address] [place], [place] [address] Acosta Alan MD [address] [place] [phone] Squamous cell carcinoma of lung, right (HCC-CMS) (Primary Dx) Social History Tobacco Use Types Packs/Day Years Used Date Smoking Tobacco: Every Day Cigarettes 2 54.7 Started: 1968 Passive Smoke Exposure: Never Smokeless Tobacco: Never [...] as of this encounter Progress Notes * Acosta Alan MD - 09/09/2022 1040 EDT Images from the original note were not included. DIVISION OF RADIATION ONCOLOGY- SABR ON TREATMENT VISIT NOTE Patient Name: Melodie Hodge Date of : 1955 MR#: [id number] MD: Too Alan MD Diagnosis: Cancer Staging Squamous cell carcinoma of lung, right (HCC-CMS) Staging form: Lung, AJCC 8th Edition - Clinical stage from 08/13/2022: Stage IA2 (cT1b, cN0, cM0) - Signed by Acosta Alan MD on08/13/2022 Date: 09/09/2022 Preparation for SBRT Treatment Treatment planning was performed in advance of this SBRT treatment delivery. Prior to this treatment, the physicist analyzed the set-up for potential collisions of the apparatus with the patient, treatment couch, or other devices and the appropriate modifications were made. QA was performed by physics staff. Pre-Treatment Assessment Radiation Treatments Active Reference Points RT LUNG Most recent treatment: Dose given: 1,800 cGy (on 09/09/2022) Total: Dose given: 5,400 cGy Elapsed Days: 5 The patient's baseline performance status was: KPS Score ECOG Grade Definition 90-100 0 Fully active, able to carry on all pre-disease performance without restriction 70-80 1 Restricted in physically strenuous activity but ambulatory and able to carry out work of a light or sedentary nature, e.g., light house work, office work 50-60 2 Ambulatory and capable of all selfcare but unable to carry out any work activities; up and about more than 50% of waking hours 30-40 3 Capable of only limited selfcare; confined to bed or chair more than 50% of waking hours 10-20 4 Completely disabled; cannot carry on any selfcare; totally confined to bed or chair Procedure Summary The patient was escorted to the treatment room and the therapist positioned the patient in the prescribed treatment position on the treatment table. The following immobilization system was used: Vac Lock. Abdominal compression was not used. Prior to treatment, CBCT was acquired, and compared to planning CT dataset. All required adjustments to the patient's position were made, repeat imaging was performed as needed. All images are date and time stamped at the time of aquisition. The following method, used to account for respiratory motion or other types of patient motion was used: 4-D CT at time of simulation. During the treatment delivery patient position was continuously monitored. If the patient coughed or shifted position, the treatment was interrupted and the patient was re localized as needed. The following ongoing images were taken during the treatment: Monitoring with Vision[employer]. I remained available in the department, throughout the delivery of the radiation treatment. I was available to treating therapists to oversee adjustments in response to patient motion, target movement, or equipment issues to ensure accuracy and safety if needed. Subjective: She is without respiratory complaints. Objective: No skin changes in treatment field. Lungs clear Plan of Care The plan of care is to continue treatment as planned. Follow up with patient in [address] chest. Signed By: Acosta Alan MD Radiation Oncology-[facility] (p) [phone] / (f) [phone] documented in this encounter Plan of Treatment [...] is recommended. 3. No disease progression identified. [id number] Narrative 11/19/2022 12:00 EDT INDICATION: s/p SABR [...] is recommended. 3. No disease progression identified. [id number] Acosta Alan MD IMG CT ORDERABLES documented in this encounter Visit Diagnoses Diagnosis Squamous cell carcinoma of lung, right (HCC-CMS)- Primary Squamous cell carcinoma of lung, right (HCC-CMS) documented in this encounter Care Teams Gleason Operator Relationship Specialty Start Date End Date Elizabeth Dsouza MD [address] [place] [address] PCP - General 02/13/12 documented as of this encounter
--- OUTSIDE RECORDS SUMMARY | 2023-12-04 21:45 | XMS_ITS | Encounter Summary ---
Author Organization [facility] Address [address] [place] [address] Care Team Providers Care Web Analytics Specialist Name Role Phone Elizabeth Dsouza MD Primary Care Provider [phone] Reason for Visit * Reason Comments Lung Cancer * Consult (Routine/Next Available) - Authorization Not Required Specialty Diagnoses / Procedures Referred By Loli rose Referred To Contact Radiation Oncology Diagnoses Primary cancer of right upper lobe of lung (HCC-CMS) Belkis Holm MD [address] [place] [phone] Acosta Alan MD [address] [place] [phone] Referral ID Status Reason Start Date Expiration Date Visits Requested Visits Authorized [id number] Authorization Not Required Specialty Services Required 3 1 1 Encounter Details Date Type Department Care Team (Late st Contact Info) Description 08/13/2022 10:[address] [facility] Cancer Treatment [address] [address] Acosta Alan MD [address] [place] [phone] Squamous cell carcinoma of lung, right (HCC-CMS) (Primary Dx) Social History Tobacco Use Types Packs/Day Years Used Date Smoking Tobacco: Every Day Cigarettes 2 54.7 Started: 1969 Passive Smoke Exposure: Never Smokeless Tobacco: Never Tobacco Cessation:Ready to Q uit: Not Asked; Counseling Given: Not Answered Alcohol Use Standard Drinks/Week Comments Not Currently 0 (1 standard drink = 0.6 oz pur e alcohol) Interpersonal Safety Answer Date Record ed Physically Hurt Never 10/17/2019 Verbally Threaten Not on file 10/17/2019 Sex and Gender Information Value Date Recorded Sex Assigned at Not on file Gender Identity Female 01/04/2021 7:40 EDT Sexual Orientation Not on file documented as of this encounter Last Filed Vital Signs Vital Sign Reading Time Taken Comments Blood Pressure 156/78 08/13/2022 0952 EDT Pulse - - Temperature - - Respiratory Rate 22 08/13/2022 0952 EDT 96% Oxygen Saturation - - Inhaled Oxygen Concentration - - Weight 77 kg (169 lb 12.8 oz) 08/13/2022 0952 ED T Height - - Body Mass Index 31.06 07/30/2022 0653 EDT documented in this encounter Functional Status Functional Status Response [...] Progress Notes * Acosta Alan MD - 08/13/2022 1030 EDT Images from the original note were not included. Radiation Oncology Consultation Date of Service- 08/13/2022 Diagnosis: Squamous cell carcinoma of lung, right (HCC-CMS) [C34.91] Referring Physician: Belkis Holm MD Diagnosis: Cancer Staging Squamous cell carcinoma of lung, right (HCC-CMS) Staging form: Lung, AJCC 8th Edition - Clinical stage from 08/13/2022: Stage IA2 (cT1b, cN0, cM0) - Signed by Acosta Alan MD on08/13/2022 IMPRESSION: Ms. Hodge is a 67 year old smoker with comorbidities that include CAD. She has a T1bN0, stage IA2 squamous cell cancer in the RUL which was PET positive. We reviewed the treatment options of lung cancer and the rationale, process and role of radiation. Additional treatment options include lobectomy surgery, radiofrequency ablation or cryotherapy potentially. We discussed that with conventionally fractionated external beam lung radiation, delivered over many weeks, local control rates have been approximately 50%. There is international experience supporting stereotactic ablative radiation (SABR) in the treatment of early lung cancer with local control rates reported in the 85 to near 100% range for 1-3 cm lung nodules. Stereotactic techniques result in higher biologically effective dose than conventional techniques and radiation volume and normal tissue toxicity is reduced with SABR. I have recommended a 3-5 fraction course pending treatment planning. NCCN guidelines were reviewed. Risk of isolated michelle recurrence is about 10%. We reviewed the acute and potential late effects of a course of stereotactic lung radiation and informed consent was obtained. During the short course of radiation acute effects are expected to be unlikely and could include fatigue, skin reaction, chest wall discomfort with respiratory symptoms felt to be unlikely. Late effects include possible radiation pneumonitis, compromise of pulmonary function, permanent chest wall pain, chest wall fibrosis, fistula formation, airway perforation/stricture, permanent lung collapse, oxygen dependence, second malignancy, pericarditis, pericardial effusion,rib fracture and very rarely . RECOMMENDATION: 1. Following my evaluation today she will undergo simulation for treatment planning 08/21/22 and it is likely that radiation will be delivered over 1-2 weeks beginning approximately 1-2 weeks after treatment planning. 2. Per a consensus report I plan post SABR imaging at 3, 6, 12, 18 and 24, 36 and 48 months (Optimal Imaging Surveillance after SABR for Early Stage Non-Small Cell Lung Cancer: Findings of an International [place] Consensus Study. Gissel TRAN et al, Practical Radiation Oncology, May-June/2017). 3. Smoking cessation was advised and we will attempt to coordinate smoking cessation counselor referral HISTORY OF PRESENT ILLNESS: Melodie Hodge, who goes by Yesy, is a 67 y.o. female from [facility] who is referred for consultation regarding a left upper lung squamous cancer. Medical history includes coronary artery disease, chronic kidney disease and a history of smoking. ?? 05/23/22 Low-dose lung cancer screening CT showed a 1.5 cm RUL lung nodule. ?? 06/25/22 interventional radiology right lung biopsy: Suspicious for squamous cell carcinoma. ?? 07/26/2022 PET scan. The known 1 cm nodule in the right upper lobe has SUV max 4.7. No hypermetabolic mediastinal adenopathy. There are several small hypermetabolic left axillary nodes. The largestand most active of these has SUV max [...] findings of coronary artery calcification and cholelithiasis. ?? 07/26/22 PFT: FEV1 83%, DLCO 74% ?? 07/30/[address] Damian: A. LUNG, RIGHT UPPER LOBE, ENDOBRONCHIAL ULTRASOUND-GUIDED FINE NEEDLE ASPIRATION: Squamous cell carcinoma, keratinizing type. B. LYMPH NODE, STATION 4 L, LEFT LOWER PARATRACHEAL, ENDOBRONCHIAL ULTRASOUND- GUIDED FINE-NEEDLE ASPIRATION: Non-diagnostic. Pauci-cellular specimen composed predominantly of blood. C. LYMPH NODE, STATION 7, SUBCARINAL, ENDOBRONCHIAL ULTRASOUND-GUIDED FINE NEEDLE ASPIRATION: No malignant cells present. Lymphocytes present. ?? 08/05/22 Dr. Belkis Holm evaluated her in thoracic surgery at [facility]. She noted that the patient had a 6MW 07/15/2022 and the patient was able to walk 750 feet which was limited by leg pain. Thepatient has sciatic nerve leg pain. She had decreased her smoking to 1 pack/day which was down from1.5-2 pack/day. Options of therapy were discussed including VATS RUL wedge resection and lymph nodesampling. The option of radiation was also reviewed. The patient was reluctant to consider a surgical procedure as she was somewhat sore after her EBUS. She is in the office today with her daughter Vani. The patient reports that since her bronchoscopy she is having a bit more cough productive of clear sputum. She denies hemoptysis. Weight has been relatively stable. She has had right sciatica type pain over the past year or so. She notes dyspnea on exertion and feels that she would have difficulty climbing a flight of stairs without stopping mcfp up. On flat ground she does not have shortness of breath. She is reducing her smoking to about1 pack/day down from approximately 2 packs/day. She has no angina. She lives in a mobile home and is active with her activities of daily living but she is not exercising. We reviewed the images of her right lung tumor as below. She reports not having undergone mammogram screening in the past. RADIOLOGY: PHYSICAL EXAM: Patient Vitals for the past 24 hrs: BP Resp Weight 08/13/22 0952 (!) 156/78 22 77 kg (169 lb 12.8 oz) ECOG performance Status: (1) Restricted in physically strenuous activity, ambulatory and able to dowork of light nature In general the patient is a pleasant female with a slightly hoarse voice. She is edentulous and there are no oral cavity mucosal lesions noted. The neck is without thyromegaly or carotid bruits. Michelle exam reveals no cervical, supraclavicular or axillary adenopathy. Breast exam reveals no palpable masses, skin changes in the bilateral breasts Lungs reveal slight wheeze which clears with coughing. There are no rhonchi or rales. Cardiac exam reveals regular rate and rhythm without murmur. Extremities without edema. Cranial nerves are grossly intact Musculoskeletal exam is without bony tenderness Past Medical History: Diagnosis Date ??? Activity, other involving cardiorespiratory exercise 07/23/22- + SOB w/ exertion, hx COPD ??? Anemia 07/23/22- found to have bleeding on endoscopy. cauterized- no problems since ??? Arthritis 07/23/22- legs ??? Back pain 07/23/22- pinched siatic nerve ??? CAD (coronary artery disease) 07/23/22- s/p 2 JÚNIOR ??? COPD (chronic obstructive pulmonary disease) ([facility]) 07/23/22- well controlled w/ use of inhalers ??? Depression 07/23/22- no meds. well controlled at this time ??? Diverticulitis large intestine ??? Edentulous ??? Exercise involving housework ??? Exercise involving walking ??? GERD (gastroesophageal reflux disease) 07/23/22- well controlled w meds.able to lie flat ??? History of blood transfusion 07/23/22- found to have bleeding on endoscopy. cauterized- no problems since ??? History of general anesthesia 07/23/22- no complications per pt ??? Hypertension 07/23/22- well controlled w/ meds ??? Lung disease ??? S/P cardiac cath 199507/23/22- s/p 2 JÚNIOR ??? Shortness of breath 07/23/22- w/ exertion, hx COPD Past Surgical History: Procedure Laterality Date ??? CARDIAC SURGERY 1995 Stent x 2 ??? CARPAL TUNNEL RELEASE Bilateral Current Outpatient Medications Medication ??? albuterol 90 mcg/actuation inhaler ??? aspirin chewable 81 mg tablet ??? cilostazoL (PLETAL) 100 mg tablet ??? famotidine (PEPCID) 20 mg tablet ??? HYDROcodone-acetaminophen (NORCO) 5-325 mg tablet ??? losartan (COZAAR) 25 mg tablet ??? nitroglycerin (NITROSTAT) 0.4 mg SL tablet ??? omeprazole (PRILOSEC) 20 mg capsule ??? pregabalin (LYRICA) 50 mg capsule ??? rosuvastatin (CRESTOR) 10 mg tablet ??? tiotropium (SPIRIVA) 18 mcg inhalation capsule ??? traZODone (DESYREL) 50 mg tablet No current facility-administered medications for this visit. Allergies Allergen Reactions ??? Latex Rash ??? Morphine Nausea And Vomiting ??? Oxycodone Nausea And Vomiting Social History Socioeconomic History ??? Marital status: Spouse name: Not on file ??? Number of children: Not on file ??? Years of education: Not on file ??? Highest education level: Not on file Occupational History ??? Not on file Tobacco Use ??? Smoking status: Every Day Packs/day: 1.00 Types: Cigarettes Start date: 1968 Passive exposure: Never ??? Smokeless tobacco: Never Vaping Use ??? Vaping Use: Every day ??? Start date: 03/17/2022 ??? Substances: Nicotine Substance and Sexual Activity ??? Alcohol use: Not Currently ??? Drug use: Not Currently ??? Sexual activity: Not on file Other Topics Concern ??? Not on file Social History Narrative ??? Not on file Social Determinants of Health Financial Resource Strain: Not on file Food Insecurity: Not on file Transportation Needs: Not on file Physical Activity: Not on file Stress: Not on file Social Connections: Not on file Housing Stability: Not on file Family History Problem Relation Age of Onset ??? Emphysema Father ??? Cancer Sister ??? Heart Disease Sister I spent a total of 60 minutes on the date of this encounter meeting with the patient and reviewing documentation/coordinating care as described in the above note. No procedures were performed at the time of the visit. Acosta Alan MD Radiation [place] [place] ([place]) [phone] / (f) [phone] documented in this encounter Plan of Treatment Not on file documented as of this encounter Visit Diagnoses Diagnosis Squamous cell carcinoma of lung, right (HCC-CMS)- Primary documented in this encounter Care Teams Web Analytics Specialist Relationship Specialty Start Date End Date Elizabeth Dsouza MD [address] [place] [address] PCP - General 02/13/12 documented as of this encounter
--- OUTSIDE RECORDS SUMMARY | 2023-12-04 21:45 | XMS_ITS | Encounter Summary ---
Author Organization [facility] Address [address] [place] [address] Care Team Providers Care Poultry Farmer Egg Name Role Phone Elizabeth Dsouza MD Primary Care Provider [phone] Reason for Referral * (Routine/Next Available) - New Request Specialty Diagnoses / Procedures [facility] Referred To Contact Diagnoses Malignant neoplasm of unspecified part of right bronchus or lung (HCC-CMS) Procedures CT SIM EXAM Acosta Alan MD [address] [place] [phone] [facility] [place] ID Status Reason Start Date Expiration Date V isits Requested Visits Authorized [id number] New Request 08/15/2022 1 1 Reason for Visit * (Routine/Next Available) - New Request Specialty Diagnoses / Procedures Referred By Loli rose Referred To Contact Diagnoses Malignant neoplasm of unspecified part of right bronchus or lung (HCC-CMS) Procedures CT SIM EXAM Acosta Alan MD [address] [place] [phone] [facility] [place]erral ID Status Reason Start Date Expiration Date V isits Requested Visits Authorized [id number] New Request 08/15/2022 1 1 Encounter Details Date Type Department Care Team (Latest Contact Info) Description 08/21/2022 13:00 EDT - 08/21/2022 23:59 EDT Hospital Encounter [facility] [address] [place] [address] Malignant neoplasm of unspecified part of right bronchus or lung (HCC-CMS) Discharge Disposition: Home or Self Care [...] Name Priority Date/Time Associated Diagnosis Comments CT SIM EXAM Routine 08/21/2022 13:55 EDT Malignant neoplasm of unspecified part of right bronchus or lung (HCC-CMS) documented in this encounter Results * CT SIM EXAM (08/21/2022 13:55 EDT) Narrative 08/21/2022 13:55 EDT This is a non-reportable exam. Acosta Alan MD IMG OTHER IMAGING ORDERABLES documented in this encounter Visit Diagnoses Diagnosis Malignant neoplasm of unspecified part of right bronchus or lung (HCC-CMS) documented in this encounter Care Teams Poultry Farmer Egg Relationship Specialty Start Date End Date Elizabeth Dsouza MD [address] [place] [phone] PCP - General 02/13/12 documented as of this encounter
--- OUTSIDE RECORDS SUMMARY | 2023-12-04 21:45 | XMS_ITS | Encounter Summary ---
Author Organization [facility] Address [address] [place] [address] Care Team Providers Care Rn Postpartum Name Role Phone Elizabeth Dsouza MD Primary Care Provider [phone] Encounter Details Date Type Department Care Team (Late st Contact Info) Description 08/21/2022 Documentation Visit [facility] [place] [address] [place] [address] Lorraine Pan, ABEL Social History Tobacco Use Types Packs/Day Years [...] as of this encounter Progress Notes * Lorraine Pan RN - 08/21/2022 1414 EDT [facility] [place] [facility] Patient Education/Needs Assessment Date: 08/21/22 What is the patient most concerned about with treatment? Concerns about efficacy and better health Does the patient feel adequately informed about he treatment process? Yes Are there any barriers to getting the patient to treatment (transportation, work etc)? No Was the patient accompanied for this encounter? Yes, by her daughterVani LEARNING STYLE What time of day does the patient learn best? What is the patient preferred method of learning? Patient's primary language: Swazi Does the patient require an maintenance and custodian supervisor? No Does the patient have any barriers to learning? []Hard of Hearing []Visual Impairment []Cognitive Impairment []Dementia []Low Literacy []Other Comments: N/A PATIENT EDUCATION After assessing the patient's learning needs, the patient was educated about their upcoming treatments. The patient was: The following education materials were supplied to the patient: Written: [x] MARIA E Radiation Therapy for Cancer [x] MARIA E Radiation Therapy for LUNG [x][facility]-specific information Audio/Visual [] MARIA E RT Answers: An introduction to external beam radiation therapy ADVANCE DIRECTIVES STATUS The patient's advance directive status was reviewed: [] Patient was reminded again to bring in a copy for their electronic Radiation Oncology chart. [] The patient does not have any advance directives and is not interested in completing one at thistime. When asked, the patient was able to summarize our conversation, which demonstrates that they understand the education provided and are ready to begin their course of treatment. [x] The patient was counseled and provided with educational handouts of the following information: pertinent contact information for Radiation Oncology staff, general care and skin care during radiation therapy, nutritional and exercise guidelines during radiation therapy and information related to supportive services during radiation therapy. Comments: Pt has already signed up for smoking cessation with [facility]. I offered to nominate her for [facility] and she is very excited about this. Signed: LORRAINE PAN RN documented in this encounter Plan of Treatment Not on file documented as of this encounter Visit Diagnoses Not on filedocumented in this encounter Care Teams Rn Postpartum Relationship Specialty Start Date End Date Elizabeth Dsouza MD [address] [place] [phone] PCP - General 02/13/12 documented as of this encounter
--- OUTSIDE RECORDS SUMMARY | 2023-12-04 21:45 | XMS_ITS | Encounter Summary ---
Author Organization [facility] Address [address] [place] [address] Care Team Providers Care Steam Gigger Name Role Phone Elizabeth Dsouza MD Primary Care Provider [phone] Encounter Details Date Type Department Care Team (Late st Contact Info) Description 09/09/2022 10:15 EDT - 09/09/2022 23:59 EDT Hospital Encounter [facility] [place] [address] [place] [address] Acosta Alan MD [address] [facility] [address] [place] [address] Discharge Disposition: Home or Self [...] or Self Care documented in this encounter Progress Notes * Acosta Alan MD - 09/09/2022 1015 EDT Images from the original note were not included. DIVISION OF RADIATION ONCOLOGY- SABR ON TREATMENT VISIT NOTE Patient Name: Melodie Hodge Date of : 1955 MR#: [id number] MD: Too Alan MD Diagnosis: Cancer Staging Squamous cell carcinoma of lung, right ([facility]) Staging form: Lung, AJCC 8th Edition - [...] status was: KPS Score ECOG Grade Definition x 90-100 0 Fully active, able to carry [...] safety if needed. Subjective: She is without complaints Objective: No skin changes in treatment field. Lungs clear Plan of Care The plan of care is to continue treatment as planned. Follow up with patient in [address] chest. Signed By: Acosta Alan MD Radiation Oncology-[facility] (p) [phone] / (f) [phone] documented in this encounter Plan of Treatment Not on file documented as of this encounter Visit Diagnoses Not on filedocumented in this encounter Care Teams Steam Gigger Relationship Specialty Start Date End Date Elizabeth Dsouza MD [address] [place] [phone] PCP - General 02/13/12 documented as of this encounter
--- OUTSIDE RECORDS SUMMARY | 2023-12-04 21:45 | XMS_ITS | Encounter Summary ---
Author Organization [facility] Address [address] [place] [address] Care Team Providers Care Weaver Axminster Name Role Phone Elizabeth Dsouza MD Primary Care Provider [phone] Encounter Details Date Type Department Care Team (Late st Contact Info) Description 09/06/2022 Documentation Visit [facility] [place] [facility] [place] [address] [place] [address] Khris Watson MD [address] [facility], [facility] [address] [place] [address] Social History Tobacco Use Types [...] as of this encounter Progress Notes * Khris Watson III, MD - 09/06/2022 1604 EDT Radiation Oncology Stereotactic Ablative Body Radiation (SABR) Daily Treatment Note Date/Time: @DATE@ Diagnosis: Cancer Staging Squamous cell carcinoma of lung, right (HCC-CMS) Staging form: Lung, AJCC 8th Edition - Clinical stage from 08/13/2022: Stage IA2 (cT1b, cN0, cM0) - Signed by Acosta Alan MD on08/13/2022 Rx Site: Right lung Fraction: 2 of 3 The dose to date is 1800 cGy. The planned total dose is 5400 cGy. Procedure Summary The patient was escorted to the treatment room and the therapist positioned the patient in the prescribed treatment position on the treatment table. The patient was positioned as previously established during CT simulation using the same immobilization devices. A neuropsychology medical consultant was present to verify the patient's positional setup. Prior to treatment, a cone beam CT was obtained. These images were compared to the simulation CT and adjustments were made. I verified that the internal isocenter in the reconstructed 3D volume was positioned appropriately in reference to the observed tumor location in accordance with the previously designed treatment plan. All required adjustments to the patient's position were made, and I personally verified the patient's position and all treatment parameters. During the treatment delivery, the respiration signal, patient position and target location were continuously monitored using the [employer] Warp RT system and direct visualization with video camera. I was present to ensure accuracy and safety for the treatment procedure. PLAN: No interventions necessary at this time. The plan of care is to continue with SABR treatment to thelung every other day as prescribed. We will have her return in about 5-[address] scanof the chest with contrast. Signed By: Khris Watson III, MD documented in this encounter Plan of Treatment Not on file documented as of this encounter Visit Diagnoses Not on filedocumented in this encounter Care Teams Weaver Axminster Relationship Specialty Start Date End Date Elizabeth Dsouza MD [address] [place] [phone] PCP - General 02/13/12 documented as of this encounter
--- OUTSIDE RECORDS SUMMARY | 2023-12-04 21:45 | XMS_ITS | Encounter Summary ---
Author Organization [facility] Address [address] [place] [address] Care Team Providers Care Microwave Remote Sensing Scientist Name Role Phone Elizabeth Dsouza MD Primary Care Provider Reason for Referral * Referral (Routine/Next Available) - Authorization Not Required Specialty Diagnoses / Procedures [facility] Referred To Contact Diagnoses Dysphagia, unspecified type Procedures UPPER ENDOSCOPY (EGD) Elizabeth Dsouza MD [address] [place] [phone] Referral ID Status Reason Start Date Expiration Date Visits Requested Visits Authorized [id number] Authorization Not Required 05/02/2023 1 1 Reason for Visit * Auth/Cert (Routine) Specialty Diagnoses / Procedures [facility] Referred To Contact Referral ID Status Reason Start Date Expiration Date Visits Re quested Visits Authorized [id number] 1 1 Encounter Details Date Type Department Care Team (Late st Contact Info) Description 10/01/2023 9:23 EDT - 10/01/2023 23:59 EDT Hospital Encounter [facility] [address] [place] [address] Angélica Hernandez MD [address] [phone] Dysphagia, unspecified type Discharge Disposition: Home or Self Care Social [...] Sign Reading Time Taken Comments Blood Pressure 157/68 10/01/2023 1318 EDT Pulse - - Temperature 36.8 ??C (98.3 ??F) 10/01/2023 1248 EDT Respiratory Rate 13 10/01/2023 1318 EDT Oxygen Saturation 93% 10/01/2023 1318 EDT Inhaled Oxygen Concentration - - Weight 68 kg (150 lb) 10/01/2023 0936 EDT Height 157.5 cm (5' 2) 10/01/2023 0936 EDT Body Mass Index 27.44 10/01/2023 0936 EDT documented in this encounter Functional Status [...] or Self Care documented in this encounter H&P Notes * Angélica Hernandez MD - 10/01/2023 1030 EDT Endoscopy Sedation for Procedure History & Physical Date: 10/01/2023 Time: 12:25 Location: [facility] Endoscopy Planned Procedure: Upper Endoscopy Chief Complaint/Indications for Procedure: Dysphagia, unspecified type, melena History Previous Complication with Sedation and/or Anesthesia? No Allergies: Allergies Allergen Reactions Latex Rash Morphine Nausea And Vomiting Oxycodone Nausea And Vomiting Current Medications: Current Outpatient Medications Medication albuterol 90 mcg/actuation inhaler aspirin chewable 81 mg tablet cilostazoL (PLETAL) 100 mg tablet famotidine (PEPCID) 20 mg tablet HYDROcodone-acetaminophen (NORCO) 5-325 mg tablet losartan (COZAAR) 25 mg tablet nitroglycerin (NITROSTAT) 0.4 mg SL tablet omeprazole (PRILOSEC) 20 mg capsule pregabalin (LYRICA) 50 mg capsule rosuvastatin (CRESTOR) 10 mg tablet tiotropium (SPIRIVA) 18 mcg inhalation capsule traZODone (DESYREL) 50 mg tablet Current Facility-Administered Medications Medication Route Frequency sodium chloride 0.9 % (NS) infusion intravenous PRN Or lactated ringers (LR) infusion intravenous PRN lidocaine (PF) 10 mg/mL (1 %) injection 2 mg intradermal PRN lidocaine (PF) 10 mg/mL (1 %) injection 2 mg intradermal PRN ondansetron (PF) (ZOFRAN) injection 4 mg intravenous Once PRN sodium chloride 0.9 % (flush) flush 5 mL intravenous PRN Past Medical History: Past Medical History: Diagnosis Date Activity, other involving cardiorespiratory exercise 07/23/22- + SOB w/ exertion, hx COPD Anemia 07/23/22- found to have bleeding on endoscopy. cauterized- no problems since Arthritis 07/23/22- legs Back pain 07/23/22- pinched siatic nerve CAD (coronary artery disease) 07/23/22- s/p 2 JÚNIOR COPD (chronic obstructive pulmonary disease) ([facility]) 07/23/22- well controlled w/ use of inhalers Depression 07/23/22- no meds. well controlled at this time Diverticulitis large intestine Edentulous Exercise involving housework Exercise involving walking GERD (gastroesophageal reflux disease) 07/23/22- well controlled w meds.able to lie flat History of blood transfusion 07/23/22- found to have bleeding on endoscopy. cauterized- no problems since History of general anesthesia 07/23/22- no complications per pt Hypertension 07/23/22- well controlled w/ meds Lung disease S/P cardiac cath 199507/23/22- s/p 2 JÚNIOR Shortness of breath 07/23/22- w/ exertion, hx COPD Social History: Past Surgical History: Procedure Laterality Date CARDIAC SURGERY 1995 Stent x 2 CARPAL TUNNEL RELEASE Bilateral Social History Tobacco Use Smoking status: Every Day Current packs/day: 1.00 Average packs/day: 1 pack/day for 54.5 years (54.5 ttl pk-yrs) Types: Cigarettes Start date: 1969 Passive exposure: Never Smokeless tobacco: Never Substance Use Topics Alcohol use: Not Currently Family History: Family History Problem Relation Age of Onset Emphysema Father Cancer Sister Heart Disease Sister Review of Systems as pertinent: Physical Exam Vital Signs: BP (!) 142/57 (BP Cuff Location: Left arm) Temp 36.6 ??C (97.9 ??F) (Oral) Resp 19 Ht 157.5 cm (62) Wt 68 kg (150 lb) SpO2 100% BMI 27.44 kg/m?? Heart Examination: Cardiac Regularity: Regular Respiratory Examination: Respiratory Pattern: Regular Breath Sounds Right: Clear Breath Sounds Left: Clear Abdominal Examination: Soft, non-tender, bowel sounds normal, no masses, no organomegaly Additional physical exam related to the proposed procedure, patient activity, disease state and treatment as pertinent: Assessment Previous complications with sedation or anesthesia?: No Airway Concerns: None/NA Anesthesia Classification: ASA 3 Plan: Proceed with sedation for procedure Fasting Time: Date of Last Liquid: 10/01/23 Time of Last Liquid: 0800 Date of Last Solid: 09/30/23 Time of Last Solid: 1800 Patient Appropriate Candidate for Planned Sedation?: Yes Angélica Hernandez MD 10/01/2023 12:25 documented in this encounter Plan of Treatment Not on file documented as of this encounter Procedures Procedure Name Priority Date/Time Associated Diagnosis Comments ECG REPORT - SCANNED 10/03/2023 11:20 EDT SURGICAL PATHOLOGY Routine 10/01/2023 12 :41 EDT Dysphagia, unspecified type UPPER ENDOSCOPY (EGD) Routine 10/01/2023 10:30 EDT Dysphagia, unspecified type documented in this encounter Results * ECG REPORT - SCANNED (10/03/2023 11:20 EDT) 10/03/2023 11:2 0 EDT Scan 2 Statistical Assistant PROCEDURE/MINOR PHILIPPE GICAL ORDERABLES * SURGICAL PATHOLOGY (10/01/2023 12:41 EDT) Note to Patient The following pathology results have been interpreted by your pathologist and may be available to you before your health provider has had the opportunity to review them. Please allow time for your provider to receive these results and explore management options, if applicable. 10/02/2023 14:48 EDT [facility] Final Diagnosis A. DISTAL ESOPHAGUS BIOPSY: - Squamous mucosa with mild chronic inactive esophagitis and reactive changes. - Negative for eosinophilia. B. PROXIMAL ESOPHAGUS BIOPSY: - Squamous mucosa with mild chronic inactive esophagitis and reactive changes. - Negative for eosinophilia. 10/02/2023 14:48 EDT [facility] Attestation By the signature below, the attending physician certifies that they have 1) personally conducted a gross and/or microscopic examination of the described specimen(s), and/or personally interpreted the results of laboratory testing of the described specimen(s), and 2) personally rendered or confirmed the above diagnosis. 10/02/2023 14:48 [facility] at 1448 Clinical History Dysphagia, unspecified type 10/02/2023 14:48 [facility] Gross Description A. Received in formalin with, Vikram Clifford and, esophagus Bx distal with forceps and consists of 2 portions of pale franco tissue, 3 mm and 4 x 3 x 2 mm. In toto, A1. B. Received in formalin with, Vikram L Clifford and, esophagus Bx proximal with forceps and consists of a 5 x 3 x 2 mm portion of pale franco tissue. In toto, B1. CHENG LEIVA([facility]) 10/01/2023 14:41 10/02/2023 14:48 [facility] Performing Lab [facility] 10/02/2023 14:48 [facility] Scanned Images 10/02/2023 14:48 [facility] Tissue ESOPHAGEAL STRUCTURE / Unknown 10/01/2023 12:41 EDT 10/01/2023 14:31 EDT Tissue specimen (specimen) ESOPHAGEAL STRUCTURE / Unknown 10/01/2023 12:41 EDT 10/01/2023 14:31 EDT Angélica Hernandez MD PATHOLOGY ORDERABLES Performing Organization Address City/State/[facility] Co de Phone Number [facility] [address] [place] [address] * UPPER ENDOSCOPY (EGD) (10/01/2023 10:30 EDT) Anatomical Region Laterality Modality Endoscopy Narrative 10/01/2023 10:30 EDT [facility] ?? [address] [facility], [place], [place] [address] ?? Patient Name ?VIKRAM CLIFFORD Date of ?1955 Record Number ?[id number] Date/Time of Procedure ?10/01/2023, 10:30:00 AM Endoscopist ?Angélica Hernandez MD ?? Aboriginal Education Worker Coordinator ? Referring Physician(s) ?? Elizabeth Dsouza M.D. Anesthesiologist ? Procedure Performed: Upper Endoscopy (EGD) Indications for Exam: dysphagia, melena Instruments: ? [id number] ([id number]) Medications: ?Fentanyl 100 mcg, Versed 5 mg, [...] PM ?? Sedation End: 12:41:39 PM Signature: Angélica Hernandez MD, M.D. This note was electronically signed on 10/01/2023 12:45:59 PM By Angélica Hernandez MD M.D. Elizabeth Dsouza MD GI PROCEDURE ORDERAB LES documented in this encounter Visit Diagnoses Diagnosis Dysphagia, unspecified type documented in this encounter Administered Medications Inactive Administered Medications - up to 3 most recent administrations Medication Order MAR Action Action Date Dose Rate Site diphenhydrAMINE (BENADRYL) injection intravenous, As needed, Starting on Fri10/01/23 at 1229, Until Fri10/01/23 at 1236, Routine, Intraprocedure Given 10/01/2023 12:36 EDT 25 mg Given 10/01/2023 12:29 EDT 25 mg fentaNYL citrate (PF) injection intravenous, As needed, Starting on Fri10/01/23 at 1229, Until Fri10/01/23 at 1236, Routine, Intraprocedure Given 10/01/2023 12:36 EDT 25 mcg Given 10/01/2023 12:32 EDT 25 mcg Given 10/01/2023 12:29 EDT 50 mcg lactated ringers (LR) infusion 30 mL/hr, intravenous, PRN, Starting on Fri10/01/23 at 0936, Until Fri10/03/23 at 0209, Routine, Preprocedure New Bag 10/01/2023 9:51 EDT 30 mL/hr 30 mL/hr midazolam (VERSED) injection intravenous, As needed, Starting on Fri10/01/23 at 1229, Until Fri10/01/23 at 1235, Routine, Intraprocedure Given 10/01/2023 12:35 EDT 2 mg Given 10/01/2023 12:32 EDT 1 mg Given 10/01/2023 12:29 EDT 2 mg documented in this encounter Orders Medications Ordered That Leland ht Not Have Been Administered Count Last Ordered Date First Ordered Date lidocaine (PF) 10 mg/mL (1 % ) injection 2 mg 2 10/01/2023 ondansetron (PF) (ZOFRAN) injection 4 mg 1 10/01/2023 sodium chloride 0.9 % (flush) flush 5 mL 1 10/01/2023 sodium chloride 0.9 % (NS) infusion 1 09/30 documented in this encounter Care Teams Microwave Remote Sensing Scientist Relationship Specialty Start Date End Date Elizabeth Dsouza MD [address] [place] [phone] PCP - General 02/13/12 documented as of this encounter
--- OUTSIDE RECORDS SUMMARY | 2023-12-04 21:45 | XMS_ITS | Encounter Summary ---
Author Organization [facility] Address [address] [place] [address] Care Team Providers Care Vault Keeper Name Role Phone Elizabeth Dsouza MD Primary Care Provider [phone] Reason for Visit * Reason Comments Lung Cancer Encounter Details Date Type Department Care Team (Late st Contact Info) Description 11/29/2022 11:00 EDT Office Visit [facility] [place] [facility] Cancer Treatment [address] [id number] History of lung cancer (Primary Dx) Social History Tobacco Use Types [...] Sign Reading Time Taken Comments Blood Pressure 113/57 11/29/2022 1100 EDT Pulse 82 11/29/2022 1100 EDT Temperature - - Respiratory Rate - - Oxygen Saturation 96% 11/29/2022 1100 EDT Inhaled Oxygen Concentration - - Weight 77.2 kg (170 lb 4.8 oz) 11/29/2022 1100 E DT Height - - Body Mass Index 31.15 07/30/2022 0653 EDT documented in this encounter [...] as of this encounter Progress Notes * Marci Rciks MD - 11/29/2022 1100 EDT Division of Radiation Oncology FOLLOW-UP NOTE Date of Service: 11/29/2022 Diagnosis: Cancer Staging Squamous cell carcinoma of lung, right ([facility]) Staging form: Lung, AJCC 8th Edition - Clinical stage from 08/13/2022: Stage IA2 (cT1b, cN0, cM0) - Signed by Acosta Alan MD on08/13/2022 Radiation Treatments Historical Plans 1_RtLung SABR Most recent treatment: Dose planned: 1,800 cGy (fraction 3 on 09/09/2022) Total: Dose planned: 5,400 cGy (3 fractions) Elapsed Days: 5 Impression: Patient with no clinical or radiographic evidence of disease. Patient is highly motivated to quit smoking she rates her motivation as a 7 or 8 out of 10. She cites her grandkids and stating many of the reason why she is so motivated. We discussed that patients have the most success when they work with a quit swim coach or smoking cessation counselor and if they are using nicotine replacement. She is using nicotine replacement and missed a connection with Shayna Recommendations: -follow up in [address] chest -Connect with Shayna to discuss smoking cessation Subjective: The patient is here for her first follow-up after stereotactic radiation for a early stage right lung cancer. Patient reports: PATIENT feels good. Breathing is stable, no cough or hemoptysis. Patient does housework, chases hergrandkids, has 5 she sees regularly and has 9 overall. Some days more tired than others. Has a lot of restless nights. She has had a poor appetite lately, some family stress. She has not had any weight loss. 11/29/2022 11:00 Pain Score (from Vitals) Initial score 0 Final score 0 Objective: Vitals: 11/29/22 1100 BP: 113/57 BP Cuff Location: Right arm Pulse: 82 SpO2: 96% Weight: 77.2 kg (170 lb 4.8 oz) Wt Readings from Last 3 Encounters: 11/29/22 77.2 kg (170 lb 4.8 oz) 08/13/22 77 kg (169 lb 12.8 oz) 08/05/22 77.6 kg (171 lb) Imaging: CT CHEST WO CONTRAST Narrative: INDICATION: s/p SABR radiation right lung completed 09/09/22; Non- small cell lung cancer (NSCLC), non-metastatic, assess treatment [...] Bones: No fracture or suspicious bone lesion. Impression: 1. Mild interval decrease in size of right upper lobe spiculated nodule with new tiny central cavitation. 2. Stable ill-defined right upper lobe 4 mm nodule. Continued imaging surveillance is recommended. 3. No disease progression identified. [id number] I spent a total of 30 minutes on the date of this encounter meeting with the patient and reviewing documentation/coordinating care as described in the above note. No procedures were performed at the time of the visit. Marci Ricks MD documented in this encounter Plan of Treatment Not on file documented as of this encounter Visit Diagnoses Diagnosis History of lung cancer- Primary Personal history of malignant neoplasm of bronchus and lung documented in this encounter Care Teams Vault Keeper Relationship Specialty Start Date End Date Elizabeth Dsouza MD [address] [place] [address] PCP - General 02/13/12 documented as of this encounter
--- OUTSIDE RECORDS SUMMARY | 2023-12-04 21:45 | XMS_ITS | Encounter Summary ---
Author Organization [facility] Address [address] [place] [address] Care Team Providers Care Straightening Press Operator Name Role Phone Elizabeth Dsouza MD Primary Care Provider [phone] Reason for Referral * Referral (Routine/Next Available) - Authorization Not Required Specialty Diagnoses / Procedures Referred By [facility] Referred To Contact Diagnoses Melena Procedures CAPSULE ENDOSCOPY Mahi Hernandez MD [address] [place] [phone] [facility]astro [address] [place] [id number] Referral ID Status Reason Start Date Expiration Date Visits Requested Visits Authorized [id number] Authorization Not Required 10/01/2023 1 1 Encounter Details Date Type Department Care Team (Late st Contact Info) Description 10/01/2023 Orders Only [facility] [address] [place] [address] [phone] Mahi Hernandez MD [address] [place] [phone] Melena (Primary Dx) Social History Tobacco Use Types [...] documented as of this encounter Results * CAPSULE ENDOSCOPY (10/22/2023 8:00 EDT) Anatomical Region Laterality Modality Endoscopy Narrative 10/22/2023 8:00 EDT [facility] ?? [address], [place], [place] [address] ?? Patient Name ?VIKRAM CLIFFORD Date of ?1955 Record Number ?[id number] Date/Time of Procedure ?10/22/2023, 08:00:00 AM Endoscopist ?Mahi Hernandez MD ?? Business Management Intern ? Referring Physician(s) ?? MAHI HERNANDEZ , [...] Mahi Hernandez MD GI PROCEDURE ORDERAB LES documented in this encounter Visit Diagnoses Diagnosis Melena- Primary Blood in stool Melena Blood in stool documented in this encounter Care Teams Straightening Press Operator Relationship Specialty Start Date End Date Elizabeth Dsouza MD [address] [place] [phone] PCP - General 02/13/12 documented as of this encounter
--- OUTSIDE RECORDS SUMMARY | 2023-12-04 21:45 | XMS_ITS | Encounter Summary ---
Author Organization [facility] Address [address] [place] [address] Care Team Providers Care Insurance Healthcare Consultant Name Role Phone Elizabeth Dsouza MD Primary Care Provider [phone] Encounter Details Date Type Department Care Team (Latest Contact Info) Description 09/03/2022 17:00 EDT - 09/03/2022 23:59 EDT Hospital Encounter [facility] Cancer Treatment [place] [address] [place] [address] Discharge Disposition: Home or Self Care Social [...] on filedocumented in this encounter Care Teams Insurance Healthcare Consultant Relationship Specialty Start Date End Date Elizabeth Dsouza MD [address] [place] [phone] PCP - General 02/13/12 documented as of this encounter
--- OUTSIDE RECORDS SUMMARY | 2023-12-04 21:45 | XMS_ITS | Encounter Summary ---
Author Organization [facility] Address [address] [place] [address] Care Team Providers Care Product/Industry Consultant Name Role Phone Elizabeth Dsouza MD Primary Care Provider [phone] Reason for Visit * Reason Comments Anemia Seen at [facility] today and was called back for low Iron lab results // reports dark stool x 2+ months with capsule endo 2 months ago Encounter Details Date Type Department Care Team (Late st Contact Info) Description 12/04/2023 20:26 EDT - 12/04/2023 21:36 EDT Emergency [facility] Emergency Department [address] [place] [address] Anika Martinez MD [address] [facility], [address] [place] [phone] Anemia, unspecified type (Primary Dx) Discharge Disposition: Home or Self Care Social [...] EDT Body Mass Index 26.34 12/04/20231933 EDT documented in this encounter Functional Status [...] No 08/05/2022 documented as of this encounter Discharge Instructions * Discharge Instructions* Anika Martinez MD - 12/04/2023 21:33 EDT You were seen in the emergency department for your low blood counts. Your hemoglobin was 7.6 here in the emergency department. This is not typically a level where we give a blood transfusion but given that you have been feeling short of breath and fatigued a unit of blood was ordered. Your iron levels are normal at 53. Unfortunately you were under the impression that you were going to be getting an iron infusion. There is no indication for that as your iron levels are normal and we cannot get iron infusions at night. You were offered 1 unit of blood but were not interested in receiving at this time which is your right to refuse. Return to the emergency department for worsening shortness of breath, episodes of passing out, racing heart, extreme weakness, or any other symptoms that are concerning to you. * Attachments The following attachments cannot be sent through Care Everywhere. * Anemia (Sammarinese) documented in this encounter Medications at Time of Discharge [...] Discharge Disposition Disposition Code Departure Means Destination Comment s Home or Self Detention documented in this encounter ED Notes * Belkis Beltran RN - 12/04/20232038 EDT Blood drawn via saline lock per protocol, rainbow and pink tube(s) sent to lab per order. * Anika Martinez MD - 12/04/2023 175 EDT Emergency Department Visit Medical Decision Making 68-year-old female with history of CKD, squamous cell carcinoma of the lung, CKD, here for what shethinks is an iron infusion. Patient had been seen at the [facility] today as patient has been feeling particularly fatigued and has exertional shortness of breath for the last 2 weeks. This is in the setting of her having melena for the last 2 months and anemia of unclear etiology. Patient says that her level was 6.4 and she think she is here for iron transfusion. I will repeat labs as I do not have access to her blood work from today. Patient does not look particularly distressed but does look fatigued. She is not tachypneic or tachycardic which would indicate need for emergent or more urgent intervention. She is not short of breath while at rest and no hypoxia that would indicate pulmonary embolus. No cough or fever that would indicate pneumonia or other cause of her fatigueand shortness of breath. No chest pain consistent with cardiac patient given her anemia that is most likely the cause of her symptoms. Will not extend investigation as to the cause of her symptoms and she has had symptoms for weeks and seems to have good follow-up with her PCP. Relevant Data as of 12/04/232139 Tish Dec 04, [id number] CKD consistent with prior. Iron is within normal limits. Patient said that she was coming for an iron transfusion. I do not feel will be beneficial. I will give her 1 unit of blood and she is symptomatic over the last 2 weeks and will have her follow-up with her PCP as well as with Dr. Hernandez. [ES] 2127 I informed patient that her iron is normal and that we do not typically do iron infusions in the emergency department. I told her that I would give her a unit of blood. She does not want a unit of blood. I did told her that would make her feel better but she said that she is here for an iron infusion she will call her PCP in the morning and arrange to have a iron infusion at [facility]. I once ag catihe offered her to get a unit of blood and feel that that would be beneficial to her as she is symptomatic but she is sure that she would like to go. [ES] Relevant Data User Index [ES] Anika Martinez MD Medical Decision Making Problems Addressed: Anemia, unspecified type: complicated acute illness or injury Amount and/or Complexity of Data Reviewed Labs: ordered. Final diagnoses: Anemia, unspecified type Disposition: Discharged Chief complaint: 2 weeks of fatigue and exertional shortness of breath HPI Yesy Hodge is a 68 y.o. female with history anemia of unclear etiology, 2 months of melena, squamous cell carcinoma of the lung who presents to the ED for iron infusion. Patient said she has beenseeing GI including Dr. Hernandez with whom she had an upper endoscopy in September as well as her PCP whom she saw today. Patient said she has been having melena and over the last 2 weeks she has had shortness of breath with exertion and feelings of fairly significant fatigue. As result she had blood drawn today. She was called to home by her PCP and told to come to the hospital for treatment. Patient thinks that she was told to come for an iron infusion and says that her hemoglobin was 6.4 at the [facility]. Patient denies any fever, cough, chest pain, nonexertional shortness of breath. No nausea, vomiting, abdominal pain, back pain, constipation, diarrhea, dysuria. No lower extremity swelling. History was provided by: Patient Records reviewed include: Upper endoscopy October 01, 2023. Chief complaint was dysphagia and unspecified type as well as melena. Patient on omeprazole Patient's pertinent PMH, FH, SH were reviewed and edited as necessary. Nursing notes reviewed. A medical screening exam was performed. Physical Exam BP (!) 148/96 Pulse 78 Temp 36.7 ??C (98 ??F) (Oral) Resp 16 Ht 157.5 cm (62) Wt 65.3 kg(144 lb) SpO2 97% BMI 26.34 kg/m?? Physical Exam Tired but otherwise well-appearing No increased work of breathing No rectal exam performed for guaiac analysis before patient decided she wanted to leave that she did not want a blood transfusion Skin is sallow in appearance. Not particularly pale but also not pink. Patient warm Procedures Procedures documented in this encounter Plan of Treatment Pending Results Name Type Priority Associated Diagnoses Date /Time HOLD BLUE TOP Lab STAT 12/04/2023 20:41 EDT HOLD GREEN TOP Lab STAT 12/04/2023 20:41 EDT HOLD LAVENDER TOP Lab STAT 024 20:41 EDT HOLD SST Lab STAT 12/04/2023 20: 41 EDT Scheduled Orders Name Type Priority Associated Diagnoses Orde r Schedule HOLD BLUE TOP Lab STAT One Time fo r 1 Occurrences starting 12/04/2023 until 12/04/2023 HOLD GREEN TOP Lab STAT One Time f or 1 Occurrences starting 12/04/2023 until 12/04/2023 HOLD LAVENDER TOP Lab STAT One Shahriar e for 1 Occurrences starting 12/04/2023 until 12/04/2023 HOLD SST Lab STAT One Time for 1 Occurrences starting 12/04/2023 until 12/04/2023 TRANSFUSE RED BLOOD CELLS Transfuse STAT Transfusion for 1 Occurrences starting 12/04/2023 documented as of this encounter Procedures Procedure Name Priority Date/Time Associated Diagnosis Comments TYPE AND SCREEN STAT 12/04/2023 20:49 EDT PROTIME Add-On 12/04/2023 20:41 EDT COMPLETE BLOOD COUNT AND DIFFERENTIAL STAT Add-on 12/04/2023 20:41 EDT BLOOD BANK HOLD STAT 12/04/2023 20:41 EDT IRON Add-On 12/04/2023 20:41 EDT COMPREHENSIVE METABOLIC PANEL (CMP) STAT Add-on 12/04/2023 20:41 EDT documented in this encounter Results * TYPE AND SCREEN (12/04/2023 20:49 EDT) ABO A 12/04/2023 21:31 EDT [facility] BLOOD BANK Rh Factor Negative 12/04/2023 21:31 EDT [facility] BLOOD BANK Antibody Screen Negative 12/04/2023 21:31 T [facility] BLOOD BANK Specimen Expires: 12/07/2023 @ 23:59 12/04/2023 21:31 [facility] BLOOD BANK Blood VENOUS BLOOD / Unknown Venipuncture / Unknown 12/04/2023 20:49 EDT 12/04/2023 20:51 EDT Anika Martinez MD BLOOD BANK TESTS [facility] BLOOD BANK [address] [place] [address] * (ABNORMAL) PROTIME (12/04/2023 20:41 EDT) I.N.R. 1.2(H) 0.9 - 1.1 Ratio 12/04/2023 20:55 [facility] Pro Time 14.0(H) 9.7 - 12.8 secs 12/04/2023 20:55 EDT [facility] Blood VENOUS BLOOD / Unknown Venipuncture / Unknown 12/04/2023 20:41 EDT 12/04/2023 20:43 EDT Narrative [facility] - 12/04/2023 20:55 EDT Moderate Intensity Coumadin INR = 2.0-3.0 Adjustments in anticoagulant therapy dose should be based on the INR and NOT on the Protime. Anika Martinez MD HEMATOLOGY & PF4 O RDERABLES Performing Organization Address City/[facility]/ZIP Co de Phone Number [facility] [address] [place] [address] * IRON (12/04/2023 20:41 EDT) Iron 53 37 - 170 ??g/dL 12/04/2023 21:17 [facility] Blood VENOUS BLOOD / Unknown Venipuncture / Unknown 12/04/2023 20:41 EDT 12/04/2023 20:43 EDT Anika Martinez MD CHEMISTRY & BLOOD GAS ORDERABLES Performing Organization Address City/[facility]/ZIP Co de Phone Number [facility] [address] [place] [address] * (ABNORMAL) COMPREHENSIVE METABOLIC PANEL (CMP) (12/04/2023 20:41 EDT) Sodium 139 136 - 145 mmol/L 12/04/2023 21:17 [facility] Potassium 3.9 3.5 - 5.0 mmol/L 12/04/2023 21:17 [facility] Chloride 107 96 - 110 mmol/L 12/04/2023 21:17 [facility] CO2 Total 21(L) 22 - 32 mmol/L 12/04/2023 21:17 [facility] Glucose 93 70 - 99 mg/dl 12/04/2023 21:17 [facility] BUN 10 10 - 26 mg/dL 12/04/2023 21:17 [facility] Creatinine 1.49(H) 0.52 - 1.04 mg/dL 12/04/2023 21:17 [facility] eGFR 38(L) >60 mL/min/1.7 3m2 12/04/2023 21:17 [facility] Total Protein 6.9 6.3 - 8.2 g/dL 12/04/2023 21:17 [facility] Albumin 4.2 3.4 - 4.9 g/dL 12/04/2023 21:17 [facility] Alkaline Phosphatase 68 38 - 126 U/L 12/04/2023 21:17 [facility] AST 20 15 - 46 U/L 12/04/2023 21:17 [facility] ALT 13 <35 U/L 12/04/2023 21:17 [facility] Bilirubin, Total 1.3 <1.4 mg/dL 12/04/19 21:17 [facility] Calcium 9.6 8.5 - 10.5 mg/dL 12/04/2023 21:17 [facility] Albumin/Globulin Ratio 1.6 1.0 - 2.5 12/04/2023 21:17 [facility] Anion Gap 11 5 - 14 mmol/L 12/04/2023 21:17 [facility] Blood VENOUS BLOOD / Unknown Venipuncture / Unknown 12/04/2023 20:41 EDT 12/04/2023 20:43 EDT Anika Martinez MD CHEMISTRY & BLOOD GAS ORDERABLES [facility] [address] [place] [address] * (ABNORMAL) COMPLETE BLOOD COUNT AND DIFFERENTIAL (12/04/2023 20:41 ED) WBC 4.62 4.00 - 12.40 K/cmm 12/04/2023 20:49 [facility] RBC 3.21(L) 3.86 - 5.04 M/cmm 12/04/2023 20:49 [facility] Hemoglobin 7.6(L) 11.6 - 15.2 g/dL 12/04/2023 20:49 [facility] HCT 27.6(L) 34.9 - 44.4 % 12/04/2023 20:49 [facility] MCV 86 81 - 98 fL 12/04/2023 20:49 [facility] MCH 23.7(L) 26.7 - 33.3 pg 12/04/2023 20:49 [facility] Hypochromia 1+ 12/04/2023 20:49 [facility] MCHC 27.5(L) 32.1 - 35.9 g/dL 12/04/2023 20:49 [facility] RDW-CV 18.0(H) <14.7 % 12/04/2023 20:49 [facility] RDW-SD 57.0(H) <50.4 fl 12/04/2023 20:49 [facility] Anisocytosis 1+ 12/04/2023 20:49 [facility] PLT 239 141 - 377 K/cmm 12/04/2023 20:49 [facility] MPV 10.1 9.5 - 12.7 fL 12/04/2023 20:49 [facility] % Neutrophils 65.8 Not Indicated % 12/04/2023 20:49 [facility] % Lymphocytes 23.6 Not Indicated % 12/04/2023 20:49 [facility] % Monocytes 7.6 Not Indicated % 12/04/2023 20:49 [facility] % Eosinophils 2.4 Not Indicated % 12/04/2023 20:49 [facility] % Basophils 0.4 Not Indicated % 12/04/2023 20:49 [facility] % Immature Grans 0.2 <0.9 % 12/04/19 20:49 [facility] Absolute Neutrophils 3.04 2.20 - 8.85 K/cmm 12/04/2023 20:49 [facility] Absolute Lymphocytes 1.09 1.09 - 3.30 K/cmm 12/04/2023 20:49 [facility] Absolute Monocytes 0.35 0.10 - 0.80 K/cmm 12/04/2023 20:49 [facility] Absolute Eosinophils 0.11 0.03 - 0.61 K/cmm 12/04/2023 20:49 [facility] ABS Basophils 0.02 0.01 - 0.11 K/cmm 12/04/2023 20:49 [facility] Absolute Immature Grans 0.01 0.00 - 0.06 K/cmm 12/04/2023 20:49 [facility] Type of Differential: Auto 12/04/2023 20:49 [facility] Blood VENOUS BLOOD / Unknown Venipuncture / Unknown 12/04/2023 20:41 EDT 12/04/2023 20:43 EDT Anika Martinez MD PACKAGES & DNA PRO BE ORDERABLES [facility] [address] [place] [address] * BLOOD BANK HOLD (12/04/2023 20:41 EDT) Hold BB Spec will exp at 23:59, 3 days from collect date 12/04/2023 20:44 [facility] BLOOD BANK Blood VENOUS BLOOD / Unknown Venipuncture / Unknown 12/04/2023 20:41 EDT 12/04/2023 20:43 EDT Anika Martinez MD BLOOD BANK TESTS [facility] BLOOD BANK [address] [place] [address] documented in this encounter Visit Diagnoses Diagnosis Anemia, unspecified type- Primary documented in this encounter Orders Nursing Count Last Ordered Date First Orde red Date CALL BLOOD BANK ([facility]) TIER 1 ORDERS ARE PLACED 1 12/04/2023 INSERT PERIPHERAL IV 1 12/04/2023 documented in this encounter Care Teams Product/Industry Consultant Relationship Specialty Start Date End Date Elizabeth Dsouza MD [address] [place] [id number] PCP - General 02/13/12 documented as of this encounter
--- OUTSIDE RECORDS SUMMARY | 2023-12-04 21:45 | XMS_ITS | Encounter Summary ---
Author Organization [facility] Address [address] [place] [address] Care Team Providers Care Naval Engineer Name Role Phone Elizabeth Dsouza MD Primary Care Provider [phone] Encounter Details Date Type Department Care Team (Late st Contact Info) Description 05/01/2023 Lab Requisition [facility] Pathology & Laboratory Medicine - [facility] [address] [place] [address] Outr Resulting Lab, Provider Social History Tobacco Use Types Packs/Day Years [...] Procedure Name Priority Date/Time Associated Diagnosis Comments RO52 ANTIBODY, IGG Routine 04/30/2023 17 :30 EST SS-B (LA) ANTIBODY, IGG Routine 04/30/2023 17:30 EST ANTI NUCLEAR AB (JACQUELINE), IFA Routine 04/30/2023 17:30 EST documented in this encounter Results * SS-B (LA) ANTIBODY, IGG (04/30/2023 17:30 EST) SSB Antibody, IgG <3.3 <20.0 CU 024 13:18 EST [facility] Comment:Results were obtaine d with the [employer] QUANTA Flash SS-B chemiluminescent immunoassay. Values obtained with different manufacturers' assay methods must not be used interchangeably. Blood VENOUS BLOOD / Unknown 04/30/2023 17:30 EST 05/01/2023 18:04 EST Provider Outr Resulting Lab IMMUNOLOGY A ND SEROLOGY ORDERABLES Performing Organization Address [facility] Co de Phone Number [facility] [address] [place] [address] * RO52 ANTIBODY, IGG (04/30/2023 17:30 EST) Ro52 Anitbody, IgG 4.2 <20.0 CU 2023 13:18 EST [facility] Comment:Results were obtaine d with the [employer] QUANTA Flash Ro52 chemiluminescent immunoassay. Values obtained with different manufacturers' assay methods must not be used interchangeably. Blood VENOUS BLOOD / Unknown 04/30/2023 17:30 EST 05/01/2023 18:04 EST Provider Outr Resulting Lab IMMUNOLOGY A ND SEROLOGY ORDERABLES Performing Organization Address [facility] Co de Phone Number [facility] [address] [place] [address] * ANTI NUCLEAR AB (JACQUELINE), IFA (04/30/2023 17:30 EST) JACQUELINE Interpretation Negative Negative 2023 14:22 EST [facility] Comment:No titer performed, JACQUELINE Screen is negative. Blood VENOUS BLOOD / Unknown 04/30/2023 17:30 EST 05/01/2023 18:04 EST Narrative [facility] - 05/02/2023 14:22 EST Results were obtained with the [employer] NOVA Lite HEp-2 JACQUELINE Kit by indirect immunofluorescence. Provider Outr Resulting Lab IMMUNOLOGY A ND SEROLOGY ORDERABLES [facility] [address] [place] [address] documented in this encounter Visit Diagnoses Not on filedocumented in this encounter Care Teams Naval Engineer Relationship Specialty Start Date End Date Elizabeth Dsouza MD [address] [place] [address] PCP - General 02/13/12 documented as of this encounter
--- OUTSIDE RECORDS SUMMARY | 2023-12-04 21:45 | XMS_ITS | Encounter Summary ---
Author Organization [facility] Address [address] [place] [address] Care Team Providers Care Draw Hand Name Role Phone Elizabeth Dsouza MD Primary Care Provider [phone] Reason for Visit * Reason Comments Cancer Encounter Details Date Type Department Care Team (Late st Contact Info) Description 07/25/2023 9:00 EDT Office Visit [facility] [address] [place] [id number] Marci Ricks MD [address] [facility] [address] [place] [address] History of lung cancer (Primary Dx) Social [...] of this encounter Progress Notes * Marci Ricks MD - 07/25/2023 0900 EDT Division of Radiation Oncology FOLLOW-UP NOTE Date of Service: 07/25/2023 Diagnosis: Cancer Staging Squamous cell carcinoma of [...] Dose given: 5,400 cGy Elapsed Days: 5 Impression: CT scan of the chest shows ongoing presence of a right lung nodule this was what was treated with radiation. There is no evidence of progressive disease. There is no mediastinal adenopathy. She has afew other nodules in the lung, none of concern at this time. There is 1 growing nodule which we will continue to monitor. Patient expresses motivation to quit smoking, I encouraged her to continue working on this. The patient's anemia is concerning, she has confidence in her primary care doctor that she will be able to make a diagnosis. Recommendations: -Continue following up with primary care about anemia. -Follow-up here in [address] scan of the chest. -Follow-up with Diana to discuss smoking cessation, first meeting was able to be at during my visit with the patient today. Subjective: The patient reports that she has no changes in her breathing, a cough productive of phlegm and no hemoptysis. She notes that she had about an 18 pound weight loss starting toward the end of her radiation. She noted bad taste, poor appetite and a dry mouth. She saw her primary care and was noted to be very anemic and required blood transfusions and iron transfusions. The workup for this is ongoing. I do not have these records. She does note that colonoscopy is on the list of studies that she still needs to have. She otherwise has no fevers chills. We discussed smoking cessation. The patient rates her motivation as a 5 or 6 out of 10. She is thinking about making a role of no smoking in the house and only smoking out on the porch. She cites herhealth and her grandchildren as motivators for her to quit smoking. She did not get to meet with Diana as we last planned. 07/25/23 Pain Score (from Vitals) Initial score 0 Final score 0 Objective: There were no vitals filed for this visit. Imaging: CT CHEST WO CONTRAST Narrative: INDICATION: [...] is recommended. 3. No disease progression identified. [id number] I spent a total of 30 minutes [...] lung documented in this encounter Care Teams Draw Hand Relationship Specialty Start Date End Date Elizabeth Dsouza MD [address] [place] [address] PCP - General 02/13/12 documented as of this encounter
--- OUTSIDE RECORDS SUMMARY | 2023-12-04 21:45 | XMS_ITS | Encounter Summary ---
Author Organization [facility] Address [address] [place] [address] Care Team Providers Care Client Development Director Name Role Phone Elizabeth Dsouza MD Primary Care Provider [phone] Encounter Details Date Type Department Care Team (Late st Contact Info) Description 09/04/2022 Results Only [facility] Radiation Oncology - [address] [address] Unknown, Provider, Social History Tobacco Use Types [...] Comments RAD ONC ARIA SESSION SUMMARY Routine 09/04/2022 11:24 EDT documented in this encounter Results * RAD ONC ARIA SESSION SUMMARY (09/04/2022 11:24 EDT) Course ID C1 ARIA RADIATION ONCOLOGY Course Intent Curative ARIA RADIATION ONCOLOGY Course First Treatment Date 09/04/2022 11:17 [facility]A RADIATION ONCOLOGY Course Last Treatment Date 09/04/2022 11:24 [facility] RADIATION ONCOLOGY Course Elapsed Days 0 [facility] RADIATION ONCOLOGY Reference Point ID RT LUNG ARIA RADIATION ONCOLOGY Reference Point Dosage Given to Date 18 Gy [facility] RADIATION ONCOLOGY Reference Point Session Dosage Given 18 Gy ARIA RADIATION ONCOLOGY Plan ID [id number] SABR ARIA RADIATION ONCOLOGY Plan Name SABR LUNG [facility]A RADIATION ONCOLOGY Plan Fractions Treated to Date 1 ARIA RADIATION ONCOLOGY Plan Total Fractions Prescribed 3 ARIA RADIATION ONCOLOGY Plan Prescribed Dose Per Fraction 18 Gy ARIA RADIATION ONCOLOGY Plan Total Prescribed Dose 5,400 cGy ARIA RADIATION ONCOLOGY Plan Primary Reference Point RT LUNG ARIA RADIATION ONCOLOGY 09/04/2022 11:2 4 EDT Provider Unknown RADIATION ONCOLOGY O EMMAERAWILLIAM [facility] RADIATION ONCOLOGY documented in this encounter Visit Diagnoses Not on filedocumented in this encounter Care Teams Client Development Director Relationship Specialty Start Date End Date Elizabeth Dsouza MD [address] [place] [id number] PCP - General 02/13/12 documented as of this encounter
--- OUTSIDE RECORDS SUMMARY | 2023-12-04 21:45 | XMS_ITS | Encounter Summary ---
Author Organization [facility] Address [address] [place] [address] Care Team Providers Care Medicare Sales Representative Name Role Phone Elizabeth Dsouza MD Primary Care Provider [phone] Encounter Details Date Type Department Care Team (Latest Contact Info) Description 08/28/2022 17:30 EDT - 08/28/2022 23:59 EDT Hospital Encounter [facility] [place] [address] [place] [address] Discharge Disposition: Home or Self Care Social [...] on filedocumented in this encounter Care Teams Medicare Sales Representative Relationship Specialty Start Date End Date Elizabeth Dsouza MD [address] [place] [id number] PCP - General 02/13/12 documented as of this encounter
--- OUTSIDE RECORDS SUMMARY | 2023-12-04 21:45 | XMS_ITS | Referral Summary ---
Author Organization [facility] Address [address] [place] [address] Care Team Providers Care Business Office Technology Instructor Name Role Phone Elizabeth Dsouza MD Primary Care Provider [phone] Encounters Date Type Department Care Team Description 12/04/2023 20:26 EDT - 12/04/2023 21:36 EDT Emergency [facility] Emergency Department [address] [place] [address] Anika Martinez MD Anemia, unspecified type (Primary Dx) Discharge Disposition: Home or Self Care 10/22/2023 6:59 EDT - 10/22/2023 23:59 EDT Hospital Encounter [facility] Endoscopy [address] [place] [address] Mahi Hernandez MD Melena Discharge Disposition: Home or Self Care 10/01/2023 Orders Only [facility] Gastroenterology [address] [place] [address] Mahi Hernandez MD Melena (Primary Dx) 10/01/2023 9:23 EDT - 10/01/2023 23:59 EDT Hospital Encounter [facility] Endoscopy [address] [place] [address] Mahi Hernandez MD Dysphagia, unspecified type Discharge Disposition: Home or Self Care 09/23/2023 Lab Requisition [facility] Pathology & Laboratory Medicine - [facility] [address] [place] [address] Elizabeth Dsouza MD Encounter for screening for malignant neoplasm of cervix; Encounter for general adult medical examination with abnormal findings from Last 3 Months Allergies Active Allergy Reactions Criticality Noted Date [...] original. Patient has given permission for [facility] to verbally discuss the following information with Raheel Blake, boyfriend, and Jim Clifford, son, who have the following relationships to [...] Overview: Added automatically from request for surgery [id number] Social History Tobacco Use Types Packs/Day Years [...] 7:40 EDT Sexual Orientation Not on file Last Filed Vital Signs Vital Sign Reading Time Taken Comments Blood Pressure 148/96 12/04/20232100 EDT Pulse 78 12/04/20231933 EDT Temperature 36.7 ??C (98 ??F) 12/04/20231935 EDT Respiratory Rate 16 12/04/20232124 EDT Oxygen Saturation 97% 12/04/20232124 EDT Inhaled Oxygen Concentration - - Weight 65.3 kg (144 lb) 12/04/20231933 EDT Height 157.5 cm (5' 2) 12/04/20231933 EDT Body Mass Index 26.34 12/04/20231933 EDT Functional Status Functional Status Response Date of [...] concentrating, remembering, or making decisions? No 08/05/2022 Plan of Treatment Not on file Procedures Procedure Name Priority Date/Time Associated Diagnosis [...] 20:49 EDT) ABO A 12/04/2023 21:31 EDT [facility] Rh Factor Negative 12/04/2023 21:31 EDT [facility] Antibody Screen Negative 12/04/2023 21:31 EDT [facility] Specimen Expires: 12/07/2023 @ 23:59 12/04/2023 21:31 EDT [facility] Blood VENOUS BLOOD / Unknown Venipuncture / Unknown 12/04/2023 20:49 EDT 12/04/2023 20:51 EDT Anika Martinez MD BLOOD BANK TESTS Performing Organization Address [facility]/ZIP Co de Phone Number [facility] [address] [place] [address] * (ABNORMAL) PROTIME (12/04/2023 20:41 EDT) I.N.R. 1.2(H) 0.9 - 1.1 Ratio 12/04/2023 20:55 [facility] Pro Time 14.0(H) 9.7 - 12.8 secs 12/04/2023 20:55 [facility] Blood VENOUS BLOOD / Unknown Venipuncture / Unknown 12/04/2023 20:41 EDT 12/04/2023 20:43 EDT Narrative [facility] - 12/04/2023 20:55 EDT Moderate Intensity Coumadin INR = 2.0-3.0 Adjustments in anticoagulant therapy dose should be based on the INR and NOT on the Protime. Anika Martinez MD HEMATOLOGY & PF4 O RDERABLES Performing Organization Address City/[facility]/ZIP Co de Phone Number [facility] [address] [place] [address] * (ABNORMAL) COMPLETE BLOOD COUNT AND DIFFERENTIAL (12/04/2023 20:41 EDT) WBC 4.62 4.00 - 12.40 K/cmm 12/04/2023 20:49 [facility] RBC 3.21(L) 3.86 - 5.04 M/cmm 12/04/2023 20:49 [facility] Hemoglobin 7.6(L) 11.6 - 15.2 g/dL 12/04/2023 20:49 [facility] HCT 27.6(L) 34.9 - 44.4 % 12/04/2023 20:49 [facility] MCV 86 81 - 98 fL 12/04/2023 20:49 [facility] MCH 23.7(L) 26.7 - 33.3 pg 12/04/2023 20:49 [facility] Hypochromia 1+ 12/04/2023 20:49 [facility] MCHC 27.5(L) 32.1 - 35.9 g/dL 12/04/2023 20:49 [facility] RDW-CV 18.0(H) <14.7 % 12/04/2023 20:49 [facility] RDW-SD 57.0(H) <50.4 fl 12/04/2023 20:49 [facility] Anisocytosis 1+ 12/04/2023 20:49 [facility] PLT 239 141 - 377 K/cmm 12/04/2023 20:49 [facility] MPV 10.1 9.5 - 12.7 fL 12/04/2023 20:49 [facility] % Neutrophils 65.8 Not Indicated % 12/04/2023 20:49 [facility] % Lymphocytes 23.6 Not Indicated % 12/04/2023 20:49 [facility] % Monocytes 7.6 Not Indicated % 12/04/2023 20:49 [facility] % Eosinophils 2.4 Not Indicated % 12/04/2023 20:49 [facility] % Basophils 0.4 Not Indicated % 12/04/2023 20:49 [facility] % Immature Grans 0.2 <0.9 % 12/04/19 20:49 [facility] Absolute Neutrophils 3.04 2.20 - 8.85 K/cmm 12/04/2023 20:49 [facility] Absolute Lymphocytes 1.09 1.09 - 3.30 K/cmm 12/04/2023 20:49 [facility] Absolute Monocytes 0.35 0.10 - 0.80 K/cmm 12/04/2023 20:49 [facility] Absolute Eosinophils 0.11 0.03 - 0.61 K/cmm 12/04/2023 20:49 EDT [facility] ABS Basophils 0.02 0.01 - 0.11 K/cmm 12/04/2023 20:49 EDT [facility] Absolute Immature Grans 0.01 0.00 - 0.06 K/cmm 12/04/2023 20:49 EDT [facility] Type of Differential: Auto 12/04/2023 20:49 EDT [facility] Blood VENOUS BLOOD / Unknown Venipuncture / Unknown 12/04/2023 20:41 EDT 12/04/2023 20:43 EDT Anika Martinez MD PACKAGES & DNA PRO BE ORDERABLES Performing Organization Address City/[facility]/ZIP Co de Phone Number [facility] [address] [place] [address] * BLOOD BANK HOLD (12/04/2023 20:41 EDT) Hold BB Spec will exp at 23:59, 3 days from collect date 12/04/2023 20:44 EDT [facility] Blood VENOUS BLOOD / Unknown Venipuncture / Unknown 12/04/2023 20:41 EDT 12/04/2023 20:43 EDT Anika Martinez MD BLOOD BANK TESTS Performing Organization Address City/[facility]/ZIP Co de Phone Number [facility] [address] [place] [address] * IRON (12/04/2023 20:41 EDT) Iron 53 37 - 170 ??g/dL 12/04/2023 21:17 EDT [facility] Blood VENOUS BLOOD / Unknown Venipuncture / Unknown 12/04/2023 20:41 EDT 12/04/2023 20:43 EDT Anika Martinez MD CHEMISTRY & BLOOD GAS ORDERABLES [facility] [address] [place] [address] * (ABNORMAL) COMPREHENSIVE METABOLIC PANEL (CMP) (12/04/2023 20:41 EDT) Sodium 139 136 - 145 mmol/L 12/04/2023 21:17 [facility] Potassium 3.9 3.5 - 5.0 mmol/L 12/04/2023 21:17 [facility] Chloride 107 96 - 110 mmol/L 12/04/2023 21:17 [facility] CO2 Total 21(L) 22 - 32 mmol/L 12/04/2023 21:17 [facility] Glucose 93 70 - 99 mg/dl 12/04/2023 21:17 [facility] BUN 10 10 - 26 mg/dL 12/04/2023 21:17 [facility] Creatinine 1.49(H) 0.52 - 1.04 mg/dL 12/04/2023 21:17 [facility] eGFR 38(L) >60 mL/min/1.7 3m2 12/04/2023 21:17 [facility] Total Protein 6.9 6.3 - 8.2 g/dL 12/04/2023 21:17 [facility] Albumin 4.2 3.4 - 4.9 g/dL 12/04/2023 21:17 [facility] Alkaline Phosphatase 68 38 - 126 U/L 12/04/2023 21:17 [facility] AST 20 15 - 46 U/L 12/04/2023 21:17 [facility] ALT 13 <35 U/L 12/04/2023 21:17 [facility] Bilirubin, Total 1.3 <1.4 mg/dL 12/04/19 21:17 [facility] Calcium 9.6 8.5 - 10.5 mg/dL 12/04/2023 21:17 EDT [facility] Albumin/Globulin Ratio 1.6 1.0 - 2.5 12/04/2023 21:17 EDT [facility] Anion Gap 11 5 - 14 mmol/L 12/04/2023 21:17 T [facility] Blood VENOUS BLOOD / Unknown Venipuncture / Unknown 12/04/2023 20:41 EDT 12/04/2023 20:43 EDT Anika Martinez MD CHEMISTRY & BLOOD GAS ORDERABLES [facility] [address] [place] [address] * CAPSULE ENDOSCOPY (10/22/2023 8:00 EDT) Anatomical Region Laterality Modality Endoscopy Narrative 10/22/2023 8:00 EDT [facility] ?? [address] [address] ?? Patient Name ?MELODIE CLIFFORD Date of ?1955 Record Number ?[id number] Date/Time of Procedure ?10/22/2023, 08:00:00 AM Endoscopist ?Mahi Hernandez MD ?? Touch Up Carver ? Referring Physician(s) ?? MAHI HERNANDEZ , [...] Start: ?Sedation End: Signature: Mahi Hernandez MD, MGaurav. This note was electronically signed on 10/28/2023 03:55:05 PM By Mahi Hernandez MD M.D. Mahi Hernandez MD GI PROCEDURE ORDERAB LES * ECG REPORT - SCANNED (10/03/2023 11:20 EDT) 10/03/2023 11:2 0 EDT Scan 2 Screener Operator PROCEDURE/MINOR PHILIPPE GICAL ORDERABLES * SURGICAL PATHOLOGY (10/01/2023 12:41 EDT) Note to Patient The following pathology results have been interpreted by your pathologist and may be available to you before your health provider has had the opportunity to review them. Please allow time for your provider to receive these results and explore management options, if applicable. 10/02/2023 14:48 EDT [facility] Final Diagnosis A. DISTAL ESOPHAGUS BIOPSY: - Squamous mucosa with mild chronic inactive esophagitis and reactive changes. - Negative for eosinophilia. B. PROXIMAL ESOPHAGUS BIOPSY: - Squamous mucosa with mild chronic inactive esophagitis and reactive changes. - Negative for eosinophilia. 10/02/2023 14:48 [facility] Attestation By the signature below, the attending physician certifies that they have 1) personally conducted a gross and/or microscopic examination of the described specimen(s), and/or personally interpreted the results of laboratory testing of the described specimen(s), and 2) personally rendered or confirmed the above diagnosis. 10/02/2023 14:48 [facility] at 1448 Clinical History Dysphagia, unspecified type 10/02/2023 14:48 [facility] Gross Description A. Received in formalin with, Melodie L Clifford and, esophagus Bx distal with forceps and consists of 2 portions of pale franco tissue, 3 mm and 4 x 3 x 2 mm. In toto, A1. B. Received in formalin with, Melodie L Clifford and, esophagus Bx proximal with forceps and consists of a 5 x 3 x 2 mm portion of pale franco tissue. In toto, B1. CHENG LEIVA(ASCP) 10/01/2023 14:41 10/02/2023 14:48 T [facility] Performing Lab [facility] 10/02/2023 14:48 T [facility] Scanned Images 10/02/2023 14:48 EDT [facility] Tissue ESOPHAGEAL STRUCTURE / Unknown 10/01/2023 12:41 EDT 10/01/2023 14:31 EDT Tissue specimen (specimen) ESOPHAGEAL STRUCTURE / Unknown 10/01/2023 12:41 EDT 10/01/2023 14:31 EDT Maih Hernandez MD PATHOLOGY ORDERABLES [facility] [address] [place] [address] * UPPER ENDOSCOPY (EGD) (10/01/2023 10:30 EDT) Anatomical Region Laterality Modality Endoscopy Narrative 10/01/2023 10:30 EDT [facility] ?? [address], [place], [place] [address] ?? Patient Name ?MELODIE CLIFFORD Date of ?1955 Record Number ?[id number] Date/Time of Procedure ?10/01/2023, 10:30:00 AM Endoscopist ?Mahi Hernandez MD ?? Touch Up Carver ? Referring Physician(s) ?? Elizabeth Dsouza M.D. Anesthesiologist ? Procedure Performed: Upper Endoscopy (EGD) Indications for Exam: dysphagia, melena Instruments: ? [id number] ([id number]) Medications: ?Fentanyl 100 mcg, Versed 5 mg, [...] End: 12:41:39 PM Signature: Mahi Hernandez MD, M.Matt. This note was electronically signed on 10/01/2023 12:45:59 PM By Mahi Hernandez MD M.D. Elizabeth Dsouza MD GI PROCEDURE ORDERAB LES * PAP TEST (09/19/2023 15:00 EDT) Specimens A. Cervix and/or Endocervix , ThinPrep Imaging System with Manual Evaluation 09/26/2023 12:41 [facility] Specimen Adequacy Satisfactory for Evaluation - transformation zone component absent Scant squamous epithelial component 09/26/2023 12:41 [facility] General Categorization Epithelial Cell Abnormality 09/26/2023 12:41 [facility] Descriptive Diagnosis Squamous Cell Abnormality - Atypical squamous cells, undetermined significance (ASC-US). 09/26/2023 12:41 [facility] Diagnosis Comment Few nucleated squamous cells present with abundant hyperkeratosis. 09/26/2023 12:41 [facility] Educational Comments [facility] recommends following the ASCCP's management guidelines which may be found at www.asccp.org 09/26/2023 12:41 [facility] Attestation By the signature below, the attending physician certifies that they have personally conducted a gross and/or microscopic examination of the described specimens and rendered or confirmed the above diagnosis. 09/26/2023 12:41 [facility] at 1241 Clinical History SEE BELOW 09/26/19 12:41 [facility] Performing Lab [facility] 09/26/2023 12:41 [facility] Scanned Images 09/26/2023 12:41 EDT [facility] Pap Test CERVIX UTERI STRUCTURE / Unknown 09/19/2023 15:00 EDT 09/23/2023 13:19 EDT Elizabeth Dsouza MD PATHOLOGY ORDERABLES [facility] [address] [place] [address] * CT CHEST WO CONTRAST (07/23/2023 17:06 [...] REGARDING THIS REPORT PLEASE CALL [facility] AT [phone] Narrative 07/23/2023 18:50 EDT PROCEDURE INFORMATION: Exam: [...] CONCERNS REGARDING THIS REPORT PLEASE CALL [facility] [phone] Kaiser Miller MD IMG CT ORDERABLES from Last 3 Months or Most Recently Relevant to Health Maintenance Advance Directives For more information, please contact: [phone] Documents on File Type Date Recorded Patient Furniture Finisher Apprentice Expl anation Advance Directive 08/13/2022 nj advance directive Care Teams Business Office Technology Instructor Relationship Specialty Start Date End Date Elizabeth Dsouza MD [address] [place] [address] [facility] - General 02/13/12
--- OUTSIDE RECORDS SUMMARY | 2023-12-04 21:45 | XMS_ITS | Encounter Summary ---
Author Organization [facility] Address [address] [place] [address] Care Team Providers Care Interactive Digital Media Specialist Name Role Phone Elizabeth Dsouza MD Primary Care Provider [phone] Reason for Referral * Referral (Routine/Next Available) - Authorization Not Required Specialty Diagnoses / Procedures Referred By Loli rose Referred To Contact Diagnoses Melena Procedures CAPSULE ENDOSCOPY Mahi Hernandez MD [address] [place] [phone] [address] Referral ID Status Reason Start Date Expiration Date Visits Requested Visits Authorized [id number] Authorization Not Required 10/01/2023 1 1 Reason for Visit * Auth/Cert (Routine) Specialty Diagnoses / Procedures Referred By Loli rose Referred To Contact Referral ID Status Reason Start Date Expiration Date Visits Re quested Visits Authorized [id number] 1 1 Encounter Details Date Type Department Care Team (Late st Contact Info) Description 10/22/2023 6:59 EDT - 10/22/2023 23:59 EDT Hospital Encounter [facility] Endoscopy [address] [place] [id number] Mahi Hernandez MD [address] [place] [phone] Luisa Discharge Disposition: Home or Self Care Social [...] Sign Reading Time Taken Comments Blood Pressure 136/59 10/22/2023 0740 EDT Pulse - - Temperature 36.6 ??C (97.9 ??F) 10/22/2023 0740 EDT Respiratory Rate 13 10/22/2023 0740 EDT Oxygen Saturation 98% 10/22/2023 0740 EDT Inhaled Oxygen Concentration - - Weight - - Height - - Body Mass Index - - documented in this encounter Functional Status Functional [...] or Self Care documented in this encounter Nursing Notes * Marina Thakkar RN - 10/22/2023 0759 EDT Belt applied, blue light on blast furnace keeper helper confirmed, patient swallowed capsule without difficulty. Discharge Instructions reviewed, NO MRI card given. documented in this encounter Plan of Treatment Not on file documented as of this encounter Procedures Procedure Name Priority Date/Time Associated Diagnosis Comments CAPSULE ENDOSCOPY Routine 10/22/2023 8:00 EDT Melena documented in this encounter Results * CAPSULE ENDOSCOPY (10/22/2023 8:00 EDT) Anatomical Region Laterality Modality Endoscopy Narrative 10/22/2023 8:00 EDT [facility] ?? [address], [place], [place] [address] ?? Patient Name ?VIKRAM CLIFFORD Date of ?1955 Record Number ?[id number] Date/Time of Procedure ?10/22/2023, 08:00:00 AM Endoscopist ?Mahi Hernandez MD ?? Hvac Design Engineer ? Referring Physician(s) ?? MAHI HERNANDEZ , [...] documented in this encounter Visit Diagnoses Diagnosis Melena Blood in stool documented in this encounter Orders Medications Ordered That Leland ht Not Have Been Administered Count Last Ordered Date First Ordered Date lactated ringers (LR) infusion 1 10/22/2023 lidocaine (PF) 10 mg/mL (1 % ) injection 2 mg 1 10/22/2023 ondansetron (PF) (ZOFRAN) injection 4 mg 1 10/22/2023 sodium chloride 0.9 % (flush) flush 5 mL 2 10/22/2023 sodium chloride 0.9 % (NS) infusion 1 10/21 documented in this encounter Care Teams Interactive Digital Media Specialist Relationship Specialty Start Date End Date Elizabeth Dsouza MD [address] [place] [phone] PCP - General 02/13/12 documented as of this encounter
--- OUTSIDE RECORDS SUMMARY | 2023-12-04 21:45 | XMS_ITS | Encounter Summary ---
Author Organization [facility] Address [address] [place] [address] Care Team Providers Care Primary Care Nurse Name Role Phone Elizabeth Dsouza MD Primary Care Provider [phone] Reason for Visit * Reason Onset Date Comments Appointment Related 12/27/2022 Tobacco Cess ation - Rad Onc Encounter Details Date Type Department Care Team ([facility] st Contact Info) Description 12/27/2022 Telephone [facility] [place] [address] [place] [address] Diana [place] [address] [place] [address] Appointment Related (Tobacco Cessation - Rad Onc) Social History Tobacco Use Types Packs/Day Years [...] as of this encounter Miscellaneous Notes * Telephone Encounter - Diana Covington - 12/27/2022 1024 EDT Called pt to f/u re missed appt for tobacco cessation consult in rad-onc (apt scheduled in aria). No ans, left vm requesting call back to r/s. documented in this encounter Plan of Treatment Not on file documented as of this encounter Visit Diagnoses Not on filedocumented in this encounter Care Teams Primary Care Nurse Relationship Specialty Start Date End Date Elizabeth Dsouza MD [address] [place] [phone] PCP - General 02/13/12 documented as of this encounter
--- OUTSIDE RECORDS SUMMARY | 2023-12-04 21:46 | XMS_ITS | Encounter Summary ---
Author Organization [facility] Address [address] [place] [address] Care Team Providers Care Group Product Manager Name Role Phone Elizabeth Dsouza MD Primary Care Provider [phone] Reason for Visit * (Routine/Next Available) - Receiving Office to Obtain Authorization Specialty Diagnoses / Procedures Referred By Loli rose Referred To Contact Procedures XR OUTSIDE IMAGES RIGHT LOWER EXTREMITY Imaging, External Referral ID Status Reason Start Date Expiration Date Visits Requested Visits Authorized [id number] Receiving Office to Obtain Authorization 08/09/2022 1 1 Encounter Details Date Type Department Care Team (Latest Contact Info) Description 05/22/2022 Hospital Encounter [facility] Secondary Reads [place] Discharge Disposition: Home or Self Care Social History Tobacco Use Types Packs/Day Years Used Date Smoking Tobacco: Every Day Cigarettes Smokeless Tobacco: Never Alcohol Use Standard Drinks/Week [...] have serious difficulty h earing? No 12/28/2021 documented as of this encounter Medications at [...] Take 1 Tablet by mouth every morning. losartan (COZAAR) 25 mg tablet Take 1 [...] Take 3 Tablets by mouth at bedtime. DULoxetine (CYMBALTA) 30 mg delayed release capsule Take 1 tab once daily for a week, then increase to 2 tabs once daily afterwards. 60 Each 2 01/17/2021 07/23/2022 ferrous sulfate 324 mg (65 mg iron) tablet,delayed release (DR/EC) Take 324 mg by mouth. Bedtime empty stomache 07/23/2022 magnesium oxide (MAG-OX) 400 mg (241.3 mg magnesium) tablet Take 400 mg by mouth daily. 07/23/2022 pyridoxine, vitamin B6, (VITAMIN B6) 50 mg tablet Take 1 Tablet by mouth daily. Please call the neurology office for further instructions. 90 Tablet 1 01/23/2021 07/23/2022 documented as of this encounter Discharge Disposition Disposition Code Departure Means Destination Home or Self Care documented in this encounter Plan of Treatment Not on file documented as of this encounter Procedures Procedure Name Priority Date/Time Associated Diagnosis Comments XR OUTSIDE IMAGES RIGHT LOWER EXTREMITY Routine 05/22/2022 13:10 EST documented in this encounter Results * XR OUTSIDE IMAGES RIGHT LOWER EXTREMITY (05/22/2022 13:10 EST) Narrative 08/09/2022 13:10 EDT This is a non-reportable exam. External Imaging IMG OTHER IMAGING OR DERABLES documented in this encounter Visit Diagnoses Not on filedocumented in this encounter Care Teams Group Product Manager Relationship Specialty Start Date End Date Elizabeth Dsouza MD [address] [place] [address] PCP - General 02/13/12 documented as of this encounter
--- OUTSIDE RECORDS SUMMARY | 2023-12-04 21:46 | XMS_ITS | Encounter Summary ---
Author Organization [facility] Address [address] [place] [address] Care Team Providers Care Trucker Hand Name Role Phone Elizabeth Dsouza MD Primary Care Provider Encounter Details Date Type Department Care Team (Late st Contact Info) Description 07/30/2022 7:44 EDT Anesthesia Event [facility] OR [address] [place], [place] [id number] Gaetano Amaral MD [address] [facility], [address] [place] [address] Anesthesia Record Procedure Summary Procedure Name Responsible Anesthesiologist Anesthesia Start Time Anesthesia Stop Time Robotic and navigational bronchoscopy with intraop CT for biopsies, possible washings, and endobronchial ultrasound-guided needle biopsies (Chest) Gaetano Amaral MD 07/30/22 0744 07/30/22 0948 Events Date Time Event Comment 07/30/2022 0744 An Start The patient was re-evaluated immediately before moderate or deep sedation use, before anesthesia induction, or before the anesthesia procedure. 0744 An Start Data 0750 An Induction The patient was reevaluated immediately before moderate or deep sedation use and before anesthesia induction. 0753 An Intubation 0756 Anesthesia Ready 0935 An Extubation 0942 an stop data 0948 Handoff to RN I completed my handoff to the receiving nurse during which we: 1. Identified the patient 2. Identified the responsible provider 3. Reviewed the pertinent medical history 4. Discussed the surgical course 5. Reviewed intra-op anesthesia management and issues during anesthesia 6. Set expectations for post-procedure period 7. Allowed opportunity for questions and acknowledgement of understanding. 0948 An Stop Meds Name Total fentanyl citrate (PF) injection 50 mcg midazolam (versed) 1 mg/mL 2 mL vial 2 m g ondansetron (PF) (ZOFRAN) injection 4 mg lidocaine 2% (PF) injection glass vial 1 00 mg propOFol (DIPRIVAN) injection 150 mg propOFol injection 927,010 mcg rocuronium 10 mg/mL vial 100 mg sugammadex 100 mg/mL 2 mL vial 400 mg phenylephrine pre-made bag 20 mg/250 mL 800 mcg sodium chloride 0.9 % (NS) infusion 500 mL * Agents Name O2 N2O Air * Blood No blood administrations on file. Lines, Drains, and Airways Type Details Placement Removal Peripheral IV 07/30/22; 0709; 20; 1.25; B Carr Introcan; Left, Posterior; Hand; Inserted by RN; 1; None; 3.15% Chlorhexidine with IPA; 07/30/22; 1148; Discharged; No complications 07/30/22 0709 by Tonia Leung RN 07/30/22 1148 by Daniela Blair RN Non-Surgical Airway 07/30/22; 0824 (luna dunn via procedure documentation); 07/30/22; 0935 07/30/22 0824 by Gaetano Amaral MD 07/30/22 0935 by Gaetano Amaral MD documented in this encounter Social History Tobacco Use Types Packs/Day Years [...] No 12/28/2021 documented as of this encounter OR Notes * Anesthesia Postprocedure Evaluation - Gaetano Amaral MD - 07/30/2022 0949 EDT Patient: Melodie Hodge Vital signs were reviewed with the recovery nurse. Complete vitals history is available in the Epicflowsheets. Vitals Value Taken Time BP 145/58 07/30/22 0946 Temp 36 07/30/22 0949 Resp 16 07/30/22 0948 Pulse From Oximetry 59 BPM 07/30/22 0948 SpO2 99 % 07/30/22 0948 Heart Rate 59 BPM 07/30/22 0948 Vitals shown include unvalidated device data. Last Pain Score - Numeric Pain Level (Scale 1-10): 5 Type of Anesthesia - general Anesthesia Post Evaluation Post-procedure vitals reviewed and are stable. Level of consciousness: responsive/arousable to verbal stimuli Temperature status: normothermia and patient returned to pre-procedure baseline Respiratory status: airway patent, stable and face mask Cardiovascular status: stable Hydration status: adequate Nausea/Vomiting: none Pain management: adequate Post-Op Assessment: patient tolerated procedure well with no complications Patient participation: able to participate Disposition: outpatient/home Anesthesia Complications: No apparent anesthesia complications * Anesthesia Procedure Notes - Gaetano Amaral MD - 07/30/2022 0820 EDT Associated Order(s): Airway Airway Date/Time: 07/30/2022 7:53 Urgency: elective Airway not difficult General Information and Staff Patient location during procedure: OR Anesthesiologist: Gaetano Amaral MD Performed: anesthesiologist Indications and Patient Condition Indications for airway management: anesthesia Sedation level: GA Preoxygenated: yes Patient position: sniffing Ventilation assessment: 0 - not attempted Final Airway Details Final airway type: endotracheal airway Successful airway: ETT Cuffed: yes Successful intubation technique: direct laryngoscopy Intubation device: ELM. Endotracheal tube insertion site: oral Blade: Dewey Blade size: #2 ETT size (mm): 8.5 Cormack-Lehane Classification: grade IIa - partial view of glottis Placement verified by: capnometry Measured from: teeth Number of attempts at approach: 1 * Anesthesia Preprocedure Evaluation - Gaetano Amaral MD - 07/30/2022 0709 EDT Anesthesia Preprocedure Evaluation Patient Medical History, including Anesthesia History reviewed. Chart and Nursing Notes reviewed, including NPO status and Medication History. Additional ROS/History Findings: Allergies Allergen Reactions ??? Latex Rash ??? Morphine Nausea And Vomiting ??? Oxycodone Nausea And Vomiting Review of Systems Constitutional: Negative for chills and fever. Respiratory: Negative for cough, shortness of breath and wheezing. Cardiovascular: Negative for chest pain. Gastrointestinal: Negative for heartburn, nausea and vomiting. Neurological: Negative for focal weakness. Past Medical History: Diagnosis Date ??? Activity, other involving cardiorespiratory exercise 07/23/22- + SOB w/ exertion, hx COPD ??? Anemia 07/23/22- found to have bleeding on endoscopy. cauterized- no problems since ??? Arthritis 07/23/22- legs ??? Back pain 07/23/22- pinched siatic nerve ??? CAD (coronary artery disease) 07/23/22- s/p 2 JÚNIOR ??? COPD (chronic obstructive pulmonary disease) ([facility]) 07/23/22- well controlled w/ use of [...] ??? Lung disease ??? S/P cardiac cath 1996 07/23/22- s/p 2 JÚNIOR ??? Shortness of breath 07/23/22- w/ exertion, hx COPD Relevant Problems No relevant active problems Physical Exam Airway Mallampati: II TM distance: >3 FB Neck ROM: full Cardiovascular Rhythm: regular Rate: normal Dental Comments: Edentulous upper and lower Pulmonary Breath sounds clear to auscultation Abdominal Anesthesia Plan ASA 3 Anesthesia Type - general Anesthesia plan and risks discussed. Informed consent obtained from patient. Specific risks discussed were dental injury, other, vomiting and nausea (aspiration, allergic reaction). The preoperative history and physical which was performed within 30 days of this procedure, has been reviewed and the clinically appropriate elements of the physical examination have been repeated. There are no changes to the documented history and physical or, if so, such changes are documented inthis note PAT Note PAT Note by Dorothy Herron APRN CNM at 07/23/2022 12:40 Version 2 of 2 67 y.o. female with a PMH of CAD status post PCI [1995], HTN, chronic lower extremity pain [sciaticnerve impingement], and active tobacco scheduled for bronch 07/30/[address] Damian. Pt on Pletal s/p cardiac stening x2 in 1995. No plan in place at time of PAT. Pt states PCP is prescribing doctor for this medication. Asked to reach out to her to get further instructions prior to procedure. PAT placed for coag plan follow up and advise if necessary. EMILIANO ORTIZ RN 07/23/22 12:07 07/15/2022 note from pulmonary pt stated she was not taking Pletal. Message sent to pulmonary for guidance re:stopping this medication prior to surgery. Per Audrey Mix-she is calling PCP to obtain a plan. Dorothy Herron APRN, MSN @1644 PAT Note by Emiliano Ortiz RN at 07/23/2022 12:40 Version 1 of 2 67 y.o. female with a PMH of CAD status post PCI [1995], HTN, chronic lower extremity pain [sciaticnerve impingement], and active tobacco scheduled for bronch 07/30/[address] Damian. Pt on Pletal s/p cardiac stening x2 in 1995. No plan in place at time of PAT. Pt states PCP is prescribing doctor for this medication. Asked to reach out to her to get further instructions prior to procedure. PAT placed for coag plan follow up and advise if necessary. EMILIANO ORTIZ RN 07/23/22 12:07 documented in this encounter Plan of Treatment Not on file documented as of this encounter Procedures Procedure Name Priority Date/Time Associated Diagnosis Comments ANESTHESIA INTUBATION Routine 07/30/2022 7:53 EDT documented in this encounter Results * NC AN ELECTIVE ENDOTRACHEAL AIRWAY (07/30/2022 7:53 EDT) Narrative [facility] POINT OF CARE - 07/30/2022 7:53 EDT Gaetano Amaral MD ? 07/30/2022 ??8:24 Airway Date/Time: 07/30/2022 7:53 Urgency: elective Airway not difficult General Information and Staff Patient location during procedure: OR Anesthesiologist: Gaetano Amaral MD Performed: anesthesiologist Indications and Patient Condition Indications for airway management: anesthesia Sedation level: GA Preoxygenated: yes Patient position: sniffing Ventilation assessment: 0 - not attempted Final Airway Details Final airway type: endotracheal airway Successful airway: ETT Cuffed: yes Successful intubation technique: direct laryngoscopy Intubation device: ELM. Endotracheal tube insertion site: oral Blade: Dewey Blade size: #2 ETT size (mm): 8.5 Cormack-Lehane Classification: grade IIa - partial view of glottis Placement verified by: capnometry Measured from: teeth Number of attempts at approach: 1 Gaetano Amaral MD ANESTHESIA ORDERA BLES [facility] POINT OF CARE documented in this encounter Visit Diagnoses Not on filedocumented in this encounter Administered Medications Inactive Administered Medications - up to 3 most recent administrations Medication Order MAR Action Action Date Dose Rate Site fentaNYL citrate (PF) injection intravenous, PRN, Starting on Fri07/30/22 at 0748, Until Fri07/30/22 at 0948, Routine, Anesthesia Intraprocedure Given 07/30/2022 7:48 EDT 50 mcg lidocaine (PF) 20 mg/mL (2 %) injection intravenous, PRN, Starting on Fri07/30/22 at 0750, Until Fri07/30/22 at 0948, Routine, Anesthesia Intraprocedure Given 07/30/2022 7:50 EDT 100 mg midazolam (PF) (VERSED) injection intravenous, PRN, Starting on Fri07/30/22 at 0745, Until Fri07/30/22 at 0948, Routine, Anesthesia Intraprocedure Given 07/30/2022 7:45 EDT 2 mg ondansetron (PF) (ZOFRAN) injection intravenous, PRN, Starting on Fri07/30/22 at 0923, Until Fri07/30/22 at 0948, Routine, Anesthesia Intraprocedure Given 07/30/2022 9:23 EDT 4 mg phenylephrine HCl in 0.9% NaCl (NEO_SYNEPHRINE) 20 mg/250 mL (80 mcg/mL) infusion solution intravenous, FA IP EQF CONTINUOUS PRN FOR ONE STEP MEDS, Starting on Fri07/30/22 at 0804, Until Fri07/30/22 at 0948, Routine, Anesthesia Intraprocedure Rate Change 07/30/2022 8:34 EDT 10 mcg/min 7.5 mL/h r Rate Change 07/30/2022 8:26 EDT 20 mcg/min 15 mL/hr Restarted 07/30/2022 8:25 EDT 20 mcg/min 15 mL/hr propOFol (DIPRIVAN) injection intravenous, PRN, Starting on Fri07/30/22 at 0750, Until Fri07/30/22 at 0948, Routine, Anesthesia Intraprocedure Given 07/30/2022 7:52 EDT 20 mg Given 07/30/2022 7:50 EDT 130 mg propOFol (DIPRIVAN) injection intravenous, FA IP EQF CONTINUOUS PRN FOR ONE STEP MEDS, Starting on Fri07/30/22 at 0754, Until Fri07/30/22 at 0948, Routine, Anesthesia Intraprocedure Rate Change 07/30/2022 8:10 EDT 125 mcg/kg/min 58.425 mL/hr New Bag 07/30/2022 7:54 EDT 150 mcg/kg/min 70.11 mL/hr rocuronium (ZEMURON) injection intravenous, PRN, Starting on Fri07/30/22 at 0750, Until Fri07/30/22 at 0948, Routine, Anesthesia Intraprocedure Given 07/30/2022 9:18 EDT 10 mg Given 07/30/2022 8:26 EDT 10 mg Given 07/30/2022 7:50 EDT 80 mg sodium chloride 0.9 % (NS) infusion 25 mL/hr, intravenous, CONTINUOUS, Starting on Fri07/30/22 at 0700, Until Fri07/31/22 at 1524, Routine, Preprocedure Restarted 07/30/2022 8:20 EDT Continued by Anesthesia 07/30/2022 7:44 EDT 25 mL/hr New Bag 07/30/2022 7:10 EDT 25 mL/hr 25 mL/hr sugammadex (BRIDION) injection intravenous, PRN, Starting on Fri07/30/22 at 0928, Until Fri07/30/22 at 0948, Routine, Anesthesia Intraprocedure Given 07/30/2022 9:33 EDT 200 mg Given 07/30/2022 9:28 EDT 200 mg documented in this encounter Care Teams Trucker Hand Relationship Specialty Start Date End Date Elizabeth Dsouza MD [address] [facility] [place] [id number] PCP - General 02/13/12 documented as of this encounter
--- OUTSIDE RECORDS SUMMARY | 2023-12-04 21:46 | XMS_ITS | Encounter Summary ---
Author Organization [facility] Address [address] [place] [address] Care Team Providers Care Desulphuring Operator Name Role Phone Elizabeth Dsouza MD Primary Care Provider [phone] Reason for Visit * Reason Onset Date Comments Biopsy Results 07/31/2022 Encounter Details Date Type Department Care Team (Late st Contact Info) Description 07/31/[address] [facility] Pulmonology & Critical Care - [address] [id number] Elizabeth Asencio, RELAY ASSEMBLER [address] [place] [address], [address] [place] [address] Biopsy Results Social History Tobacco Use Types Packs/Day Years [...] No 12/28/2021 documented as of this encounter Miscellaneous Notes * Telephone Encounter - Elizabeth Asencio NP - 07/31/2022 1542 EDT Spoke with patient this afternoon. Feeling pretty tired today after not sleeping well last night. Feeling better this afternoon. A little sore throat, minimal hemoptysis. Breathing feels good. We discussed her results showing cancer cells in the lung nodule. No malignancy seen in the lymph nodes although one was non-diagnostic. Will plan to present her case at [facility] on 08/05 and have her meet with Dr. Holm after to discuss resection. * Telephone Encounter - Ana Luisa Lou - 07/31/2022 1327 EDT Patient states she is returning call from ABEL Ventura. Patient also notes she did get a call from Elizabeth Asencio NP and that she is now available to take a call. * Telephone Encounter - Elizabeth Asencio NP - 07/31/2022 1117 EDT 11:20: attempted to contact patient to discuss the results of her biopsies performed yesterday. Left a message for her to contact the pulmonary clinic. documented in this encounter Plan of Treatment Not on file documented as of this encounter Visit Diagnoses Not on filedocumented in this encounter Care Teams Desulphuring Operator Relationship Specialty Start Date End Date Elizabeth Dsouza MD [address] [place] [address] PCP - General 02/13/12 documented as of this encounter
--- OUTSIDE RECORDS SUMMARY | 2023-12-04 21:46 | XMS_ITS | Encounter Summary ---
Author Organization [facility] Address [address] [place] [id number] Care Team Providers Care Fare Collector Name Role Phone Elizabeth Dsouza MD Primary Care Provider [phone] Encounter Details Date Type Department Care Team (Late st Contact Info) Description 07/30/2022 5:50 EDT - 07/30/2022 23:30 EDT Hospital Encounter [facility] OR [address] [place] [address] [phone] Amilcar Dmaian MD MPH [address] [place] [address], [address] [place] [address] Discharge Disposition: Home or Self [...] Sign Reading Time Taken Comments Blood Pressure 143/56 07/30/2022 1134 EDT Pulse 67 07/30/2022 0653 EDT Temperature 36.2 ??C (97.2 ??F) 07/30/2022 1145 EDT Respiratory Rate 26 07/30/2022 1030 EDT Oxygen Saturation 95% 07/30/2022 1134 EDT Inhaled Oxygen Concentration - - Weight 77.9 kg (171 lb 11.8 oz) 07/30/2022 0653 EDT Height 157.5 cm (5' 2) 07/30/2022 0653 EDT Body Mass Index 31.41 07/30/2022 0653 EDT documented in this encounter Functional Status Functional Status Response Date of Assess ment Are you deaf or do you have serious difficulty h earing? No 12/28/2021 documented as of this encounter Discharge Instructions * Discharge Instructions* Ariadna Franks RN - 07/30/2022 10:56 EDT Bronchoscopy Discharge Instructions Diet: You may have had numbing medication applied to your throat. If so, the nurse will make certain thatthe numbing medication applied to your throat has worn off and that your swallowing is back to normal. Once you go home, you can eat your standard diet with no restrictions unless advised by your physician. Please abstain from alcohol until the day after the procedure. Alcohol interacts with medications given during your procedure. Do not take aspirin containing products, ibuprofen, or blood thinning products until the day after your procedure if biopsies were obtained unless advised by your physician. Discomfort: You may have a slight sore throat, some voice hoarseness, and/or some soreness in your nose that may last a day or two. You may take Tylenol (acetaminophen) 500mg every 6 hours to treat this if needed. Cough: It is not unusual for you to have a cough after the procedure. If biopsies or other samples were obtained from your lung, you may cough up some phlegm with streaks of blood in it. This is not unusual. Fever: If washing of your lung was performed, you may have a fever that night after the procedure. You maytake Tylenol (acetaminophen) 500mg every 6 hours to treat this if needed. Contact your physician ifthis persists more than 24 hours or if associated with other symptoms such as shortness of breath. Nausea: There may be some nausea due to the medication given for the procedure. Activity: Have someone else drive you home. Do not operate a vehicle until the day after the procedure. Lightactivity the rest of the day following the procedure. Results: If biopsies were taken during your procedure it can take 5-7 days for results to come back Results for washings can take up to several weeks to result. If a follow up has not already been set up, please ask your provider how and when results will be discussed. By federal law, results are released to [facility] at the same time they are released to your provider. Please call if any one of the following problems develop: *Increasing shortness of breath *Coughing up more than a tablespoon of blood at a time *Significant chest pain or discomfort *Temperature over 100.6 degrees F that occurs the day after the procedure or later Call the pulmonary office at [phone] between 8:30am-4:30pm. After 4:30pm the hospital operatorat [phone] and ask to have the pulmonary physician fraud prevention analyst be paged. documented in this encounter Medications at Time [...] Code Departure Means Destination Home or Self Correction documented in this encounter H&P Notes * Amilcar Damian MD MPH - 07/30/2022 0735 EDT The preoperative history and physical which was performed within 30 days of this procedure has been reviewed and the clinically appropriate elements of the physical examination have been repeated. There are no changes to the documented history and physical or if so such changes are documented below Amilcar Damian MD MPH 07/30/2022 7:35 Source Note - Juliocesar Limon MD - 07/15/2022 16:00 EDT Images from the original note were not included. PULMONARY CLINIC NEW PATIENT VISIT Date: 07/15/2022 Reason for Consult: Lung nodule PCP: Elizabeth Dsouza HPI: Thank you for allowing me to participate in the care of Ms. Hodge. As you know, Ms. Hodge is a 67y.o. female with a PMH of CAD status post PCI [1995], HTN, chronic lower extremity pain [sciatic nerve impingement], and active tobacco use who presents today for further evaluation of peripheral solitary lung nodule. Underwent IR guided percutaneous biopsy on on 06/25/2022; suspicious cells non-diagnostic. Underwent routine lung cancer screening in May 2022 with evidence of spiculated peripheral nodule. Subsequently underwent IR guided percutaneous biopsy without complication. No pneumothorax. Cytology inconclusive; suspicious appearing cells. Referral to interventional pulmonology for further diagnostic evaluation. Denies worsening dyspnea, cough, night sweats, chills, or weight loss. Endorses chronic nonproductive cough. No hemoptysis. Ongoing tobacco use. Interested in quitting. Notes that insurance does not cover NRT. Previous ADR associated with Chantix. Using e-cigarettes. Lives alone in [place], [place]. Maintains home. Denies functional limitations; although notes exertion is limited by right-sided sciatic pain. Denies chest pain or pressure. No palpitations. No exertional dyspnea, although minimal ambulation attributed to lower extremity discomfort. Not regularly followed by cardiology; underwent PCI in 1995 for NSTEMI. No further cardiac events. 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 No occupational exposures to chemicals or fumes. Social History: Lives alone in [place], [place]. Multiple pets within the home; including cats, dogs, and parakeets. Denies issues with mold or mildew. Family History: No family history of lung cancer. 4 adult children are healthy. PMHx: HTN HLD CAD s/p PCI [1995] at [facility] Lower extremity pain PSHx: has a past surgical history that includes Carpal tunnel release (Bilateral) and Cardiac surgery. Meds: Current Outpatient Medications: ??? albuterol 90 mcg/actuation inhaler, Inhale 2 Puffs as directed every 4 hours as needed for Wheezing., Disp: , Rfl: ??? aspirin chewable 81 mg tablet, Take 81 mg by mouth daily., Disp: , Rfl: ??? cilostazoL (PLETAL) 100 mg tablet, Take 50 mg by mouth. Once a day, Disp: , Rfl: ??? DULoxetine (CYMBALTA) 30 mg delayed release capsule, Take 1 tab once daily for a week, then increase to 2 tabs once daily afterwards., Disp: 60 Each, Rfl: 2 ??? famotidine (PEPCID) 20 mg tablet, Take 20 mg by mouth every morning. (Patient not taking: Reported on 07/15/2022), Disp: , Rfl: ??? ferrous sulfate 324 mg (65 mg iron) tablet,delayed release (DR/EC), Take 324 mg by mouth. Bedtime empty stomache (Patient not taking: Reported on 07/15/2022), Disp: , Rfl: ??? losartan (COZAAR) 25 mg tablet, Take 25 mg by mouth daily., Disp: , Rfl: ??? magnesium oxide (MAG-OX) 400 mg (241.3 mg magnesium) tablet, Take 400 mg by mouth daily. (Patient not taking: Reported on 07/15/2022), Disp: , Rfl: ??? nitroglycerin (NITROSTAT) 0.4 mg SL tablet, Place 0.4 mg under the tongue every 5 minutes as needed for Chest Pain., Disp: , Rfl: ??? omeprazole (PRILOSEC) 20 mg capsule, Take 20 mg by mouth daily., Disp: , Rfl: ??? pregabalin (LYRICA) 50 mg capsule, Take 50 mg by mouth 2 times daily at 9am and 9pm., Disp: , Rfl: ??? pyridoxine, vitamin B6, (VITAMIN B6) 50 mg tablet, Take 1 Tablet by mouth daily. Please call the neurology office for further instructions., Disp: 90 Tablet, Rfl: 1 ??? rosuvastatin (CRESTOR) 10 mg tablet, Take 40 mg by mouth daily., Disp: , Rfl: ??? tiotropium (SPIRIVA) 18 mcg inhalation capsule, Inhale 18 mcg as directed daily., Disp: , Rfl: ??? traZODone (DESYREL) 50 mg tablet, Take 50 mg by mouth at bedtime. 1.5 tablet at bedtime, Disp: , Rfl: Allergies: Allergies Allergen Reactions ??? Latex ??? Morphine ROS: A 14-point review of systems was obtained and otherwise negative. Exam: BP (!) 172/80 (BP Cuff Location: Left arm, BP Patient Position: Sitting, BP Cuff Sizes: Adult, regular) Pulse 86 Temp 35.9 ??C (96.6 ??F) (Tympanic) Ht 157.5 cm (62.01) Wt 80.7 kg (178 lb) SpO2 96% BMI 32.55 kg/m?? Gen: Appears stated age, NAD, sitting in chair; scent of tobacco Lymph: No submandibular or supraclavicular lymphadenopathy CV: RRR, S1/S2, no murmurs Lungs: Symmetric chest expansion. Diminished breath sounds bilaterally. Abd: Soft, non-distended, normoactive bowel sounds, non-tender. Ext: No edema, clubbing or cyanosis. Skin: Warm and dry; no rashes or lesions visualized on exposed skin. MSK: No joint deformity or warmth. Neuro: AAOx3, FREDERICK Psych: appropriate, cooperative and pleasant I have independently reviewed the following data: Labs: Reviewed. Imaging: CT Chest: 05/23/22 --- TTE: None PFT: None Assessment: Ms. Hodge is a 67 y.o. female with a PMH of CAD status post PCI [1995], HTN, chronic lower extremity pain [sciatic nerve impingement], and active tobacco use who presents today for further evaluation of peripheral solitary lung nodule. Underwent IR guided percutaneous biopsy on on 06/25/2022; suspicious cells non- diagnostic. Persistent concern for malignancy recommending robotic bronchoscopy withEBUS-TBNA for further diagnostic sampling/staging. Given suspicious cells on IR sampling, will proceed with PET-CT and PFTs as well. Plan: - Navigational bronchoscopy with EBUS; Yesy has been informed and understands the information and situation provided to them about the procedure. They have capacity and ability to weigh risks, goalsand benefits as well as the alternatives of proposed treatments including the option of not undergoing the procedure. Specifically discussed risks of pneumothorax associated with the procedure. The patient has expressed their rationale and executed the choice to proceed forward with the procedure with no undue influence or coercion. Consent signed electronically. - PET scan - PFT with 6MWT - Encourage smoking cessation - Pending PFT results, consider addition of LABA/LAMA - Follow up: PRN Pt was seen, examined and discussed with Dr. Damian. Juliocesar Limon MD [facility] Fellow Attestation statement: I performed or was present during the zayas or critical portions of the visit and participated in the management of the patient. I agree with the findings and plan of care documented in the resident's/fellow's note.I have made additional edits in the assessment and plan above. Amilcar Damian MD MPH documented in this encounter OR Notes * OR Surgeon - Amilcar Damian MD MPH - 07/30/2022 0550 EDT OPERATIVE REPORT SERVICE DATE: 07/30/2022 PROCEDURE: Robotic and navigational bronchoscopy with intraoperative cone beam CT scan verification, radial endobronchial ultrasound confirmation for fine needle aspiration and EBUS-TBNA. SURGEON: Luis Damian MD MPH DIRECTOR OF NEUROLOGY: Elizabeth Asencio NP (Please note, no qualified fellow was available assist in the procedure, thus Ms Asencio's presence was required as cardiology physician assistant. She assisted in performing robotic navigational bronchoscopy and in obtaining EBUS samples.) ANESTHESIA: General. PREOPERATIVE DIAGNOSES: 1. Right upper lobe lung nodule. 2. History of prior IR biopsy with suspicious cells. 3. Pet avidity in right upper lobe lesion. 4. History of tobacco use. POSTOPERATIVE DIAGNOSES: 1. Right upper lobe lung nodule. 2. History of prior IR biopsy with suspicious cells. 3. Pet avidity in right upper lobe lesion. 4. History of tobacco use. NARRATIVE: Following verification of informed consent and timeout, the patient was induced under anesthesia supervision. The flexible bronchoscope was inserted into the airway. The airways were examined through the segments. There were no endobronchial lesions or significant secretions. All the airways were normal in anatomic configuration with the exception of the left lower lobe, which did have an additional lateral segment. The flexible bronchoscope was then removed and the robot introduced into the airway. Following roll correction and registration, the robot was used to navigate out to within 35 mm of the lesion. There was no clear radial endobronchial ultrasound view at this point. Wedid perform a cone beam CT scan that did show we were fairly well aligned with the lesion, althoughwe did approximate it somewhat more closely to minimize the distance and potential deviation of thetool. We then aligned within approximately 20 mm. Again, there was no radial endobronchial ultrasound view, but cone beam CT scan #2 did reveal that we were in good apposition to the lesion. The 22-gauge needle was then used to perform multiple passes from this location. This did return likely diagnostic material. Six dedicated passes were sent for cell block. We then removed the robot. A cone beam CT scan using AP fluoroscopy was used to verify no evidence of pneumothorax. The EBUS-TBNA scope was inserted into the airway. Beginning at the contralateral left sided stations, the 11L lymph nodestation was 4 mm in short axis and not aspirated. The 4L lymph node was 6 mm in short axis, and wasaspirated with multiple passes with good return of tissue. No significant bleeding or oozing. The station 7 lymph node was 12 mm in short axis. This was aspirated with multiple passes with good return of tissue. No significant bleeding or oozing, again, using the 22- gauge EBUS-TBNA needle. The 4R lymph node was 3 mm in short axis. The 11Rs lymph node was 4 mm in short axis and 11Ri lymph node was3 mm in short axis. None of these lymph nodes were aspirated. The airways were cleaned. The patientwas awakened on the endotracheal tube and transferred to PACU breathing spontaneously. ESTIMATED BLOOD LOSS: 10 mL A chest x-ray was ordered. COMPLICATIONS: There were no complications. Unless otherwise noted, there were no complications, no blood loss, no cultures obtained, no specimens removed, and no drains retained. Luis Damian MD, MPH / CD Confirmation: [id number] Dictation ID: [id number] cc: documented in this encounter Plan of Treatment Not on file documented as of this encounter Procedures Procedure Name Priority Date/Time Associated Diagnosis Comments XR CHEST PORTABLE 1 VIEW Routine 07/30/2022 10:39 EDT FL C-ARM 0-1 HOUR Routine 07/30/2022 9:3 5 EDT XR CHEST 2 VIEWS Routine 07/30/2022 9:34 EDT NON IMMUNOHEMATOLOGIST/FNA CYTOLOGY Routine 07/30/2022 8:44 EDT BRONCHOSCOPY, WITH TRANSBRONCHIAL NEEDLE ASPIRATION BIOPSY 07/30/2022 7:39 EDT Lung nodule Special Needs O-Arm; [place] Robot; Dive board bed. documented in this encounter Results * XR CHEST PORTABLE 1 VIEW (07/30/2022 10:39 EDT) Anatomical Region Laterality Modality Computed Radiogr aphy 07/30/2022 11:0 3 EDT Impressions 07/30/2022 11:03 EDT No pneumothorax status post bronchoscopic biopsy. Narrative 07/30/2022 11:03 EDT XR CHEST PORTABLE 1 VIEW ??07/30/2022 10:15 AM CLINICAL HISTORY/COMMENTS: Lung nodule s/p robotic bronch. DONE IN OR COMPARISON: Chest radiographs June 25, 2022.. TECHNIQUE: Single portable AP view of the chest. FINDINGS: Lines/tubes/devices: ??None Lungs: Clear. Pleura: There is no pneumothorax. Cardiac and mediastinal contours: There is atherosclerotic calcination of the aortic arch. Soft tissues and extrathoracic findings: ??Normal. Bones: Normal for age. Procedure Note Juanjo Neves MD - 07/30/2022 XR CHEST PORTABLE 1 VIEW 07/30/2022 10:15 AM CLINICAL HISTORY/COMMENTS: Lung nodule s/p robotic bronch. DONE IN OR COMPARISON: Chest radiographs June 25, 2022.. TECHNIQUE: Single portable AP view of the chest. FINDINGS: Lines/tubes/devices: None Lungs: Clear. Pleura: There is no pneumothorax. Cardiac and mediastinal contours: There is atherosclerotic calcination ofthe aortic arch. Soft tissues and extrathoracic findings: Normal. Bones: Normal for age. IMPRESSION No pneumothorax status post bronchoscopic biopsy. Elizabeth Asencio PRINTING SALES REPRESENTATIVE IMG DIAGNOSTIC IMAGI NG ORDERABLES * FL C-ARM 0-1 HOUR (07/30/2022 9:35 EDT) Narrative 07/30/2022 9:35 EDT This is a non-reportable exam. Amilcar Damian MD MPH IMG OTHER IMAGING ORDERABLES * XR CHEST 2 VIEWS (07/30/2022 9:34 EDT) Narrative 07/30/2022 9:34 EDT This is a non-reportable exam. Amilcar Damian MD MPH IMG DIAGNO STIC IMAGING ORDERABLES * NON IMMUNOHEMATOLOGIST/FNA CYTOLOGY (07/30/2022 8:44 EDT) Note to Patient The following pathology results have been interpreted by your pathologist and may be available to you before your health provider has had the opportunity to review them. Please allow time for your provider to receive these results and explore management options, if applicable. 07/31/2022 9:[address] [facility] Final Diagnosis A. LUNG, RIGHT UPPER LOBE, ENDOBRONCHIAL ULTRASOUND-GUIDED FINE NEEDLE ASPIRATION: - Squamous cell carcinoma, keratinizing type. See comment. B. LYMPH NODE, STATION 4 L, LEFT LOWER PARATRACHEAL, ENDOBRONCHIAL ULTRASOUND-GUIDED FINE-NEEDLE ASPIRATION: - Non-diagnostic. - [place]-cellular specimen composed predominantly of blood. C. LYMPH NODE, STATION 7, SUBCARINAL, ENDOBRONCHIAL ULTRASOUND-GUIDED FINE NEEDLE ASPIRATION: - No malignant cells present. - Lymphocytes present. 07/31/2022 9:58 [facility] Diagnosis Comment Malignant keratinized squamous cells are present in a background of keratin debris and necrosis. The tumor cells are present individually without sheets of cells being identified. The cell block shows a rare cluster of dysplastic squamous cells. The patient's previous cytology specimen ([id number]) and biopsy specimen ([id number]) have been reviewed. Lean Leader slides of this case were reviewed at the intradepartmental consultation conference. 07/31/2022 9:58 [facility] Attestation By the signature below, the attending physician certifies that they have personally conducted a gross and/or microscopic examination of the described specimens and rendered or confirmed the above diagnosis. 07/31/2022 9:58 [facility] at 0958 Rapid Diagnosis A. LUNG, RUL, ENDOBRONCHIAL ULTRASOUND GUIDED FINE NEEDLE ASPIRATION: Evaluation Episode 1: Pass 1: Necrosis, + atypical squamous cells Evaluation Episode 2: Pass 2: Positive non small cell carcinoma, favor squamous cell Evaluation Episode 3: Pass 3: Rare malignant cells Pass 4: RPMI Evaluation Episode 4: Pass 5: Rare malignant cells Pass 6+7: into RPMI Evaluation Episode 5:Pass 8: Rare malignant cells Pass 9: RPMI Rapid interpretation performed by: Dr. Kenneth Lawrence; 07/29/2022; 9:00 AM 07/31/2022 9:58 [facility] Clinical History Lung nodule 07/31/2022 9:58 [facility] Gross Description A. 12 fixed prepared slides, 1 air dried prepared slides, and 1 tube of RPMI for cell block processing were received. B. One vial of CytoLyt was received and processed by selective cellular enhancement technique. C. One vial of CytoLyt was received and processed by selective cellular enhancement technique. 07/31/2022 9:58 [facility] Performing Lab [facility] 07/31/2022 9:58 [facility] Scanned Images 07/31/2022 9:58 [facility] Fine Needle Aspirate ENTIRE RIGHT UPPER LOBE OF LUNG / Unknown 07/30/2022 8:44 EDT 07/30/2022 9:22 EDT Specimen obtained by fine needle aspiration procedure (specimen) LEFT LOWER PARATRACHEAL LYMPH NODE / Unknown 07/30/2022 9:12 EDT 07/30/2022 10:28 EDT Specimen obtained by fine needle aspiration procedure (specimen) STRUCTURE OF SUBCARINAL LYMPH NODE / Unknown 07/30/2022 9:17 EDT 07/30/2022 10:28 EDT Amilcar Damian MD MPH PATHOLOGY ORDERABLES [facility] [address] [place] [address] documented in this encounter Visit Diagnoses Diagnosis Lung nodule- Primary Solitary pulmonary nodule documented in this encounter Admitting Diagnoses Diagnosis Lung nodule Solitary pulmonary nodule documented in this encounter Administered Medications Inactive Administered Medications - up to 3 most recent administrations Medication Order MAR Action Action Date Dose Rate Site acetaminophen (TYLENOL) solution unit dose cup 995 mg 995 mg (rounded from 1,000 mg), oral, PRN, 1 dose, Starting on Fri07/30/22 at 0938, Until Fri07/31/22 at 1524, Pain, Routine, Recovery (only) acetaminophen (TYLENOL) tablet 1,000 mg 1,000 mg, oral, PRN, 1 dose, Starting on Fri07/30/22 at 0938, Until Fri07/31/22 at 1524, Pain, Routine, Recovery (only) atropine 0.1 mg/mL syringe 0.5 mg 0.5 mg, intravenous, PRN, Starting on Fri07/30/22 at 0938, Until Fri07/31/22 at 1524, Symptomatic HR < 50, Routine, Recovery (only) fentaNYL citrate (PF) injection 25-50 mcg 25-50 mcg, intravenous, EVERY 5 MIN PRN, Starting on Fri07/30/22 at 0938, Until Fri07/31/22 at 1524, Pain, Routine, Recovery (only) lactated ringers (LR) infusion at 30 mL/hr, intravenous, CONTINUOUS, Starting on Fri07/30/22 at 1000, Until Fri07/31/22 at 1524, Routine, Recovery (only) metoclopramide (REGLAN) injection 10 mg 10 mg, intravenous, PRN, 1 dose, Starting on Fri07/30/22 at 0938, Until Fri07/31/22 at 1524, Nausea, Routine, Recovery (only) naloxone (NARCAN) injection 0.2 mg 0.2 mg, intravenous, PRN, Starting on Fri07/30/22 at 0938, Until Fri07/31/22 at 1524, Opioid Reversal, Routine, Recovery (only) ondansetron (PF) (ZOFRAN) injection 4 mg 4 mg, intravenous, PRN, 1 dose, Starting on Fri07/30/22 at 0938, Until Fri07/31/22 at 1524, Nausea, Vomiting, Routine, Recovery (only) sodium chloride 0.9 % (NS) infusion 25 mL/hr, intravenous, CONTINUOUS, Starting on Fri07/30/22 at 0700, Until Fri07/31/22 at 1524, Routine, Preprocedure Restarted 07/30/2022 8:20 EDT Continued by Anesthesia 07/30/2022 7:44 EDT 25 mL/hr New Bag 07/30/2022 7:10 EDT 25 mL/hr 25 mL/hr documented in this encounter Discontinued Medications Medication Sig Discontinue Reason Start Date End Da te oxyCODONE-acetaminophen (PERCOCET) 5-325 mg per tablet Take 1 Tablet by mouth as needed for Pain. 07/30/2022 documented as of this encounter Historical Medications * This list may reflect changes made after this encounter. Medication Sig Dispensed Refills Start Date End Date HYDROcodone-acetaminophen (NORCO) 5-325 mg tablet Take 1 Tablet by mouth every 6 hours. added in this encounter Active and Recently Administered Medications Times are shown in EDT. Continuous Medication Order 07/28/2022 07/29/2022 07/30/2022 lactated ringers (LR) infusion at 30 mL/hr, intravenous, CONTINUOUS, Starting on Fri07/30/22 at 1000, Until Fri07/31/22 at 1524, Routine, Recovery (only) 1000 (Canceled Entry - Provider: Batch Job User Admin - Comment: Automatically canceled at discontinue of medication order) sodium chloride 0.9 % (NS) infusion 25 mL/hr, intravenous, CONTINUOUS, Starting on Fri07/30/22 at 0700, Until Fri07/31/22 at 1524, Routine, Preprocedure 0710 (New Bag - Prov ider: Tonia Leung RN)0744 (Continued by Anesthesia - Provider: Gaetano Amaral MD)0819 (Paused - Provider: Gaetano Amaral MD - Comment: Switch to gravity)0820 (Restarted - Provider: Gaetano Amaral MD)0931 (Anesthesia Volume Adjustment - Provider: Gaetano Amaral MD) PRN Medication Order 07/28/2022 07/29/2022 07/30/2022 acetaminophen (TYLENOL) solution unit dose cup 995 mg(Linked Group 1) 995 mg (rounded from 1,000 mg), oral, PRN, 1 dose, Starting on Fri07/30/22 at 0938, Until Fri07/31/22 at 1524, Pain, Routine, Recovery (only) acetaminophen (TYLENOL) tablet 1,000 mg(Linked Group 1) 1,000 mg, oral, PRN, 1 dose, Starting on Fri07/30/22 at 0938, Until Fri07/31/22 at 1524, Pain, Routine, Recovery (only) atropine 0.1 mg/mL syringe 0.5 mg 0.5 mg, intravenous, PRN, Starting on Fri07/30/22 at 0938, Until Fri07/31/22 at 1524, Symptomatic HR < 50, Routine, Recovery (only) fentaNYL citrate (PF) injection 25-50 mcg 25-50 mcg, intravenous, EVERY 5 MIN PRN, Starting on Fri07/30/22 at 0938, Until Fri07/31/22 at 1524, Pain, Routine, Recovery (only) metoclopramide (REGLAN) injection 10 mg 10 mg, intravenous, PRN, 1 dose, Starting on Fri07/30/22 at 0938, Until Fri07/31/22 at 1524, Nausea, Routine, Recovery (only) naloxone (NARCAN) injection 0.2 mg 0.2 mg, intravenous, PRN, Starting on Fri07/30/22 at 0938, Until Fri07/31/22 at 1524, Opioid Reversal, Routine, Recovery (only) ondansetron (PF) (ZOFRAN) injection 4 mg 4 mg, intravenous, PRN, 1 dose, Starting on Fri07/30/22 at 0938, Until Fri07/31/22 at 1524, Nausea, Vomiting, Routine, Recovery (only) Linked Groups Order Group 1: acetaminophen (TYLENOL) solution unit dose cup 995 mgJump to med 995 mg (rounded from 1,000 mg), oral, PRN, 1 dose, Starting on Fri07/30/22 at 0938, Until Fri07/31/22 at 1524, Pain, Routine, Recovery (only) Or acetaminophen (TYLENOL) tablet 1,000 mgJump to med 1,000 mg, oral, PRN, 1 dose, Starting on Fri07/30/22 at 0938, Until Fri07/31/22 at 1524, Pain, Routine, Recovery (only) documented in this encounter Orders Medications Ordered That Leland ht Not Have Been Administered Count Last Ordered Date First Ordered Date acetaminophen (TYLENOL) solu tion unit dose cup 995 mg 1 07/30/2022 acetaminophen (TYLENOL) tablet 1,000 mg 1 0 07/30/2022 atropine 0.1 mg/mL syringe 0.5 mg 1 023 fentaNYL citrate (PF) injection 25-50 mcg 1 07/30/2022 lactated ringers (LR) infusion 1 07/30/2022 lidocaine (PF) 10 mg/mL (1 % ) injection 2 mg 1 07/30/2022 metoclopramide (REGLAN) injection 10 mg 1 0 07/30/2022 naloxone (NARCAN) injection 0.2 mg 1 2022 ondansetron (PF) (ZOFRAN) injection 4 mg 1 07/30/2022 Discharge Count Last Ordered Date First Orde red Date DISCHARGE PATIENT 1 07/30/2022 documented in this encounter Care Teams Fare Collector Relationship Specialty Start Date End Date Elizabeth Dsouza MD [address] [place] [id number] PCP - General 02/13/12 documented as of this encounter
--- OUTSIDE RECORDS SUMMARY | 2023-12-04 21:46 | XMS_ITS | Encounter Summary ---
Author Organization [facility] Address [address] [place] [address] Care Team Providers Care Chairman And Chief Executive Officer Name Role Phone Elizabeth Dsouza MD Primary Care Provider [phone] Reason for Visit * (Routine/Next Available) - Order Cancelled Specialty Diagnoses / Procedures Referred By Loli rose Referred To Contact Procedures CT OUTSIDE IMAGES CHEST Imaging, External Referral ID Status Reason Start Date Expiration Date V isits Requested Visits Authorized [id number] Order Cancelled 05/28/2022 1 1 Encounter Details Date Type Department Care Team (Latest Contact Info) Description 05/23/2022 - 05/23/2022 23:59 EST Hospital Encounter [facility] Secondary Reads [place] Discharge Disposition: Home or [...] on filedocumented in this encounter Care Teams Chairman And Chief Executive Officer Relationship Specialty Start Date End Date Elizabeth Dsouza MD [address] [place] [phone] PCP - General 02/13/12 documented as of this encounter
--- OUTSIDE RECORDS SUMMARY | 2023-12-04 21:46 | XMS_ITS | Encounter Summary ---
Author Organization [facility] Address [address] [place] [address] Care Team Providers Care Therapeutic Dietitian Name Role Phone Elizabeth Dsouza MD Primary Care Provider [phone] Reason for Referral * Radiology Services (Routine/Next Available) - Authorization Not Required Specialty Diagnoses / Procedures Referred By Loli rose Referred To Contact Diagnoses Abnormal x-ray of lung Procedures IR Elizabeth Salas MD [address] [place] [address] [facility] Referral ID Status Reason Start Date Expiration Date Visits Requested Visits Authorized [id number] Authorization Not Required 05/28/2022 1 1 Reason for Visit * Radiology Services (Routine/Next Available) - Authorization Not Required Specialty Diagnoses / Procedures Referred By Loli rose Referred To Contact Diagnoses Abnormal x-ray of lung Procedures IR Elizabeth Salas MD [address] [place] [address] [facility] Referral ID Status Reason Start Date Expiration Date Visits Requested Visits Authorized [id number] Authorization Not Required 05/28/2022 1 1 Encounter Details Date Type Department Care Team (Late st Contact Info) Description 06/25/2022 6:34 EDT - 06/25/2022 11:24 EDT Hospital Encounter [facility] Interventional Radiology Unit [address], [place] [id number] Rigo Jasmine PA-C [address] [phone] Sohail Magana MD [address] [phone] Abnormal x-ray of lung; Lung nodule Discharge Disposition: Home or Self Care Social History Tobacco Use Types Packs/Day Years Used Date Smoking Tobacco: Every Day Cigarettes Smokeless Tobacco: Never Tobacco Cessation:Ready to Q [...] Sign Reading Time Taken Comments Blood Pressure 165/77 06/25/2022 1115 EDT Pulse 63 06/25/2022 0854 EDT Temperature 36 ??C (96.8 ??F) 06/25/2022 0955 EDT Respiratory Rate 18 06/25/2022 0955 EDT Oxygen Saturation 86% 06/25/2022 1115 EDT Inhaled Oxygen Concentration - - Weight 80.7 kg (178 lb) 06/25/2022 0710 EDT Height 157.5 cm (5' 2) 06/25/2022 0710 EDT Body Mass Index 32.56 06/25/2022 0710 EDT documented in this encounter Functional Status Functional Status Response Date of Assess ment Are you deaf or do you have serious difficulty h earing? No 12/28/2021 documented as of this encounter Discharge Instructions * Discharge Instructions* Melodie Garcia RN - 06/25/2022 8:13 EDT Interventional Radiology Biopsy Discharge Instructions Date of biopsy: 06/25/2022 Provider: Daren Jasmine PA-C Biopsy site: Right Lung The results of your procedure will go to the provider who ordered the procedure. It may take 5-7 days for biopsy results to come back. Aftercare After sedation: If you have received sedation or pain medication during your procedure, DO NOT DRIVE or make legal decisions today. Activity: Rest today. Do not lift anything over 10 lbs. You may resume normal activity tomorrow. Diet: You may resume your usual diet. Avoid alcohol for 24 hours. Medications: You may resume your usual medications. You may take tylenol (acetaminophen) for any discomfort you may have. Do not take any blood thinning medication for 24 hours after your procedure. (examples: Asprin, ibuprofen/NSAIDS, fish oil, Lovenox, Plavix, Xarelto, Arixtra, Pradaxa, Warfarin,etc). Call your doctor immediately or go to the nearest Emergency Room if you develop any of the following - Fast heart rate Severe back, stomach, chest, or shoulder pain Severe anxiety, dizziness, or sweating Skin color change Heavy bleeding or swelling at the biopsy site If you feel short of breath Bloody urine Decreased urine output Check the dressing or Band-Aid throughout the day. If you notice bleeding, hold pressure for 10 minutes and slowly release the pressure to see if the bleeding has stopped. If the bleeding does not stop, go to your Physician or the nearest Emergency Room. Remove your dressing tomorrow. Gently wash your wound site with soap and water. You may then leave the biopsy site open to air. Do not take a tub bath, swim, or go in a hot tub until the wound site has completely healed. IF YOU HAVE ANY QUESTIONS OR CONCERNS OR IF YOU HAVE DEVELOPED ANY OF THE SYMPTOMS ABOVE, PLEASE CALL THE INTERVENTIONAL RADIOLOGY CLINIC AT , OPTION 2 TO REACH THE NURSE TRIAGE LINE. THERE WILL BE ASSISTANCE AVAILABLE 24 HOURS A DAY. IF YOU CALL AFTER HOURS YOU WILL BE CONNECTED WITHAN ON-CALL PHYSICIAN BY PRESSING 1. documented in this encounter Medications at Time [...] documented in this encounter Progress Notes * Marina Osorio, RN - 06/25/2022 0700 EDT Melodie Hodge arrived to the Cardiovascular Unit via ambulation Patient alert and oriented x3. Transfers to stretcher independently Patient greeted and identified per [facility] medical center policy. Allergies and procedure verified & patient oriented to Unit. Reviewed all pre-procedure instructions with Melodie Hodge. All questions answered & patient verbalizes willingness and understandi ng of pre-procedure education. Patient stretcher in low position with side rails up & call bellwithin patient reach. Patient's significant other and son are at bedside and non cdl driver home. * Melodie Garcia RN - 06/25/2022 07 EDT Procedure: Lung Biopsy RUL Patient Arrived from CVU at 0836 to room 25 Pt is A/O x 4. Able to make needs known. Able to answer all questions appropriately. Feeling anxious. Able to walk and position self on procedure table with stand by assist x 2 staff. Pt position for procedure supine with right side up Pt prepped with Duraprep by A[facility] according to manufacturing standard/recommendations. ??? Sedation started at 0846 ??? NEHAL JOHNSON present at time of sedation At 0853- Time. The Time out occurred and procedure started. (TK/ JANETG /NEHAL / ) Puncture site RUL Time of Puncture 0855 Cytology arrived to procedure room at 0905. At 0937 Time the Procedure ended. CT guided lung biopsy Puncture site RUL See provider note for procedure outcome. All specimens collected sent with Cytology. Pt tolerated well with Versed 1.5 mg IV and Fentanyl 100 mcg IV over 54 minutes. Report called to Gayle DENNISUABEL at 0944 time Pt transferred to CVU in stable condition. At d/c from room patient is on right side. On 2 L oxygen. In no distress. * Mikki Nguyen RN - 06/25/2022 0700 EDT Melodie Joelle Hodge arrived to CVU #2 at 0950 via stretcher s/p lung biopsy. Alert and oriented x3. VSS on 3L NC. 1130 CXR completed per orders. Report given to LYNNETTE ROMAN documented in this encounter H&P Notes * Rigo Jasmine PA-C - 06/25/2022 0700 EDT Sedation for Procedure History & Physical Date: 06/25/2022 Time: 7:45 Location: IR Planned Procedure: Right lung biopsy Chief Complaint/Indications for Procedure: Nodule History: Previous Complication with Sedation and/or Anesthesia? No Allergies: Allergies Allergen Reactions ??? Morphine Current Medications: (Not in a hospital admission) Past Medical History: Past Medical History: Diagnosis Date ??? Anemia ??? COPD (chronic obstructive pulmonary disease) ([facility]) ??? Diverticulitis large intestine ??? GERD (gastroesophageal reflux disease) ??? Hypertension ??? Lung disease ??? S/P cardiac cath 15 years ago- 2 stents Social History: Past Surgical History: Procedure Laterality Date ??? CARDIAC SURGERY Stent x 2 ??? CARPAL TUNNEL RELEASE Bilateral Social History Tobacco Use ??? Smoking status: Every Day Packs/day: 1.50 Types: Cigarettes ??? Smokeless tobacco: Never Substance Use Topics ??? Alcohol use: Not Currently Family History: Family History Problem Relation Age of Onset ??? Emphysema Father ??? Cancer Sister ??? Heart Disease Sister Review of Systems as pertinent: Physical: Vital Signs: BP (!) 157/66 (BP Cuff Location: Right arm, BP Patient Position: Semi fowlers) Temp 36.2 ??C (97.2 ??F) (Temporal) Resp 24 Ht 157.5 cm (62) Wt 80.7 kg (178 lb) SpO2 98% BMI 32.56 kg/m?? Heart Examination: Cardiac Regularity: Regular Respiratory Examination: Respiratory Pattern: Regular Breath Sounds Right: Clear Breath Sounds Left: Clear Additional physical exam related to the proposed procedure, patient activity, disease state and treatment as pertinent: Assessment: Previous complications with sedation or anesthesia?: No Airway Concerns: None/NA Anesthesia Classification: ASA 2 Plan: Right lung biopsy Fasting Time: Time of last liquid intake: 0500 (sip this am) Date of Last Liquid Intake: 06/25/22 Time of last solid intake: 1800 Date of last solid intake: 06/24/22 Patient Appropriate Candidate for Planned Sedation?: Yes Rigo Jasmine PA-C 06/25/2022 7:45 documented in this encounter Procedure Notes * Sohail Magana MD - 06/25/2022 0700 EDT IR Procedure Note Procedure: CT guided RUL lung biopsy Date Performed: 06/25/2022 Radiologist/Mission Assessment Specialist(s): [place] Sedation/Anesthesia: Moderate Time Out: A time-out was completed prior to procedure verifying correct patient, procedure, site, positioning, and special equipment if applicable. Estimated Blood Loss: Unless otherwise noted, there was no blood loss, specimens removed, cultures obtained, or drains retained. Specimens: Multiple 22G FNA and 20G core biopsies. Complications: Local pulmonary hemorrhage w/o hemoptysis. Condition: Stable Post Procedure Diagnosis: IRAIS nodule Findings: Malignant cells within abundant chronic inflammation. Recommendations: CXR in 2hrs. Keep npo, 2L NC, RLD position. Sohail Magana MD 06/25/2022 9:55 documented in this encounter Nursing Notes * Melodie Garcia RN - 06/25/2022 0945 EDT Pt tolerated procedure. Moved to stretcher with staff x3. Pt on right side. Pillow between knees. Pt in no distress. On 2 L oxygen. Tolerated sedation . Transferred to CVU. * Melodie Garcia RN - 06/25/2022 0936 EDT Pt resting with eyes open. Denies pain. In no distress. Tolerating procedure. * Melodie Garcia RN - 06/25/2022 0858 EDT Pt tolerating procedure. In no cardiac or respiratory distress. No verbal or non verbal signs of pain or discomfort. * Melodie Garcia RN - 06/25/2022 0836 EDT Pt arrived to procedure room at 0836. Denies pain. On room air. Able to ambulate with staff x 1 from [place] into procedure room. Positioned self on procedure table with staff assist x 2. MD present at start of sedation. Pt supine with R side tilted up and right arm above head. Arm supported with pillow. Pt stated she is comfortable in said position. documented in this encounter Plan of Treatment Not on file documented as of this encounter Procedures Procedure Name Priority Date/Time Associated Diagnosis Comments XR CHEST 1 VIEW Routine 06/25/2022 11:35 EDT IR BIOPSY Routine 06/25/2022 9:49 EDT Abnormal x-ray of lung NON SPECIAL DELIVERY MAIL CARRIER/FNA CYTOLOGY Routine 06/25/2022 9:14 EDT Abnormal x-ray of lung SURGICAL PATHOLOGY Routine 06/25/2022 9:14 EDT Abnormal x-ray of lung PROTIME STAT 06/25/2022 7:31 EDT PLATELET COUNT STAT 06/25/2022 7:31 EDT documented in this encounter Results * XR CHEST 1 VIEW (06/25/2022 11:35 EDT) Anatomical Region Laterality Modality Computed Radiogr aphy 06/25/2022 11:5 4 EDT Impressions 06/25/2022 11:54 EDT No evidence of pneumothorax status post right lung biopsy. Narrative 06/25/2022 11:54 EDT XR CHEST 1 VIEW ??06/25/2022 11:30 AM Clinical History/Comments: s/o RUL lung biopsy Comparison: 08/18/2017 chest x-ray and 05/23/2022 CT scan Technique: Frontal view of the chest was performed. Findings: Focal patchy opacity in the right upper lung with adjacent normal pleural thickening presumably represents the site of the biopsied lung nodule, with possible small quantity of surrounding, expected postbiopsy hemorrhage. No pleural effusion or pneumothorax is seen, noting exclusion of the right costophrenic angle from the [id number]. The cardiomediastinal silhouette appears normal aside from aortic calcification. Visualized bones and superficial soft tissues are grossly unremarkable. Procedure Note Thi Lima MD - 06/25/2022 XR CHEST 1 VIEW 06/25/2022 11:30 AM Clinical History/Comments: s/o RUL lung biopsy Comparison: 08/18/2017 chest x-ray and 05/23/2022 CT scan Technique: Frontal view of the chest was performed. Findings: Focal patchy opacity in the right upper lung with adjacent normal pleuralthickening presumably represents the site of the biopsied lung nodule,with possible small quantity of surrounding, expected postbiopsyhemorrhage. No pleural effusion or pneumothorax is seen, noting exclusionof the right costophrenic angle from the [id number]. The cardiomediastinal silhouette appears normal aside from aorticcalcification. Visualized bones and superficial soft tissues are grossly unremarkable. IMPRESSION No evidence of pneumothorax status post right lung biopsy. Sohail Magana MD IMG DIAGNOSTIC IMAG ING ORDERABLES * IR BIOPSY (06/25/2022 9:49 EDT) Anatomical Region Laterality Modality Computed Tomogra phy 06/25/2022 10:0 4 EDT Impressions 06/25/2022 10:[address]-guided aspiration and core biopsy of a 1.2 cm nodule within the right upper lobe. Narrative 06/25/2022 10:04 EDT IR BIOPSY ??06/25/2022 7:00 AM Clinical History/Comments: 1.5 cm RUL spiculated nodule seen on CT Technique: After a detailed explanation of the risks and benefits of the procedure as well as consideration of alternative diagnostic methods including no further diagnostic procedures, informed consent was obtained from the patient. A history and physical examination were performed for the purposes of administering conscious sedation, which was given during the continuous monitoring of blood pressure, respiratory rate, pulse, and oxygen saturations. With the patient in the supine position, a series of scans were obtained of the upper chest confirming the presence of a 1.2 cm nodule within the periphery of the right upper lobe. ??An appropriate needle entry site was chosen by use of the CT gantry laser light and a trajectory planned on the CT console. ??The skin was then prepared and draped in the usual strict sterile fashion. Local anesthesia was provided by the use of 1% lidocaine, infiltrated in the soft tissues to the pleural surface. ??A 19-gauge, 11.1 cm long ultrathin-walled needle was advanced through the anterolateral chest wall and placed with its tip within the anterolateral aspect of the right upper lobe nodule. ??Multiple aspirates were then obtained with 22-gauge, 15 cm long Chiba needles and given to the cytopathologist for evaluation. Thereafter, multiple 20-gauge core biopsies were performed thru the lesion at the request of the onsite cytopathologist. A repeat scan obtained immediately after the biopsy showed local pulmonary hemorrhage without hemoptysis. [place] were removed, hemostasis obtained, and a sterile dressing was placed. The patient tolerated the procedure well. ?? The patient was then placed in the right lateral decubitus position and transferred to postprocedure recovery for monitoring. Procedure Note Sohail Magana MD - 06/25/2022 IR BIOPSY 06/25/2022 7:00 AM Clinical History/Comments: 1.5 cm RUL spiculated nodule seen on CT Technique: After a detailed explanation of the risks and benefits of the procedure aswell as consideration of alternative diagnostic methods including nofurther diagnostic procedures, informed consent was obtained from thepatient. A history and physical examination were performed for thepurposes of administering conscious sedation, which was given during thecontinuous monitoring of blood pressure, respiratory rate, pulse, andoxygen saturations. With the patient in the supine position, a series of scans were obtainedof the upper chest confirming the presence of a 1.2 cm nodule within theperiphery of the right upper lobe. An appropriate needle entry site waschosen by use of the CT gantry laser light and a trajectory planned on theCT console. The skin was then prepared and draped in the usual strictsterile fashion. Local anesthesia was provided by the use of 1% lidocaine,infiltrated in the soft tissues to the pleural surface. A 19- gauge, 11.1cm long ultrathin-walled needle was advanced through the anterolateralchest wall and placed with its tip within the anterolateral aspect of theright upper lobe nodule. Multiple aspirates were then obtained [id number], 15 cm long Chiba needles and given to the cytopathologist forevaluation. Thereafter, multiple 20-gauge core biopsies were performedthru the lesion at the request of the onsite cytopathologist. A repeatscan obtained immediately after the biopsy showed local pulmonary hemorrhage without hemoptysis. [place] were removed, hemostasisobtained, and a sterile dressing was placed. The patient tolerated the procedure well. The patient was then placed in the right lateral decubitus position andtransferred to postprocedure recovery for monitoring. IMPRESSION Successful CT-guided aspiration and core biopsy of a 1.2 cm nodule withinthe right upper lobe. Elizabeth Dsouza MD [facility] IR ORDERABLES * SURGICAL PATHOLOGY (06/25/2022 9:14 EDT) Note to Patient The following pathology results have been interpreted by your pathologist and may be available to you before your health provider has had the opportunity to review them. Please allow time for your provider to receive these results and explore management options, if applicable. 2022 14:54 [facility] Final Diagnosis A. 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 2022 14:54 [facility] Diagnosis Comment Please see and correlate with the finding(s) of the concurrent cytology specimen ([id number]). 2022 14:54 [facility] Attestation There was significant resident/fellow involvement in the diagnostic evaluation of this case. By the signature below, the attending physician certifies that they have personally conducted a gross and/or microscopic examination of the described specimens and rendered or confirmed the above diagnosis. 2022 14:54 [facility] at 1454 Clinical History Smoker with right lung 1 cm nodule; evaluate for malignancy; clinical diagnosis code: R91.8 2022 14:54 [facility] Gross Description A. Received in formalin labelled with proper patient identification (initials B, C) and not otherwise specified are multiple irregular and cylindrical brown tissue fragments ranging from less than 0.1 cm in greatest dimension to 0.4 by less than 0.1 cm. Entirely submitted in A1-A2. CHENG MCCLAIN(ASCP) 06/25/2022 12:12 2022 14:54 EDT [facility] Resident/Bashir w: Sigrid Astorga DO 2022 14:54 EDT [facility] Performing Lab [facility] 2022 14:54 EDT [facility] Scanned Images 2022 14:54 EDT [facility] Tissue ENTIRE RIGHT LUNG / Unknown Collection, Other / Unknown 06/25/2022 9:14 EDT 06/25/2022 10:36 EDT Rigo Jasmine PA-C PATHOLOGY ORDERAB LES Performing Organization Address City/State/[facility] Co de Phone Number [facility] [address] [place] [phone] * NON SPECIAL DELIVERY MAIL CARRIER/FNA CYTOLOGY (06/25/2022 9:14 EDT) Note to Patient The following pathology results have been interpreted by your pathologist and may be available to you before your health provider has had the opportunity to review them. Please allow time for your provider to receive these results and explore management options, if applicable. 07/02/2022 10:58 EDT [facility] Final Diagnosis A. LUNG, RIGHT, 1 CM NODULE, CT-GUIDED FINE NEEDLE ASPIRATION: - Suspicious for squamous cell carcinoma. See comment. 07/02/2022 10:58 EDT [facility] Diagnosis Comment The specimen is unusual in that it shows only rare sheets of atypical squamous epithelium and very rare keratinized dysplastic squamous cells in a background of abundant histiocytes including multinucleated giant cells and lymphocytes. In several foci, multinucleated macrophages are seen to be phagocytizing the atypical keratinized squamous cells. The cell block shows a single fragment of dysplastic squamous epithelium. Concurrent surgical pathology biopsy ([id number]) was reviewed and deeper levels examined. The core biopsy shows dysplastic squamous epithelium similar to that present on the cytology specimen. The core also shows atypical pneumocytes which are not present on the cytology specimen. Security Advisor slides of this case were reviewed by Dr. Karan Nj. 07/02/2022 10:58 [facility] Attestation By the signature below, the attending physician certifies that they have personally conducted a gross and/or microscopic examination of the described specimens and rendered or confirmed the above diagnosis. 07/02/2022 10:58 [facility] at 1058 Rapid Diagnosis A. LUNG, RIGHT, 1 CM NODULE, CT GUIDED FINE NEEDLE ASPIRATION: Evaluation Episode 1: Pass 1-3: Scant rare stromal fragment Evaluation Episode 2: Pass 4-6: Fragments on pass 4 suspicious for squamous cell carcinoma; Pass 5 lymphoid cells? Intrapulmonary lymph node? Evaluation Episode 3: Pass 7-9: Histiocytes Cores obtained Rapid interpretation performed by: Dr.S Lizama; 06/25/2022; 9:20 AM 07/02/2022 10:58 [facility] Clinical History 66 yo female smoker with right lung 1 cm nodule. evaluate for malignancy 07/02/2022 10:58 [facility] Gross Description A. 17 fixed prepared slides, 3 air dried prepared slides, and 1 tube of RPMI for cell block processing were receive 07/02/2022 10:58 [facility] Performing Lab [facility] 07/02/2022 10:58 [facility] Scanned Images 07/02/2022 10:58 [facility] Fine Needle Aspirate ENTIRE RIGHT LUNG / Unknown 06/25/2022 9:14 EDT 06/25/2022 9:52 EDT Rigo Jasmine PA-C PATHOLOGY ORDERAB LES [facility] [address] [place] [address] * PLATELET COUNT (06/25/2022 7:31 EDT) PLT 179 141 - 377 K/cmm 06/25/2022 8:10 [facility] Blood VENOUS BLOOD / Unknown Venipuncture / Unknown 06/25/2022 7:31 EDT 06/25/2022 7:34 EDT Glynn Vann PA-C HEMATOLOGY & PF4 ORDERABLES Performing Organization Address [facility] de Phone Number [facility] [address] [place] [address] * PROTIME (06/25/2022 7:31 EDT) I.N.R. 1.1 0.9 - 1.1 Ratio 06/25/2022 7:51 EDT [facility] Pro Time 12.7 9.7 - 12.8 secs 06/25/2022 7:51 EDT [facility] Blood VENOUS BLOOD / Unknown Venipuncture / Unknown 06/25/2022 7:31 EDT 06/25/2022 7:34 EDT Narrative [facility] - 06/25/2022 7:51 EDT Moderate Intensity Coumadin INR = 2.0-3.0 Adjustments in anticoagulant therapy dose should be based on the INR and NOT on the Protime. Glynn Vann PA-C HEMATOLOGY & PF4 ORDERABLES Performing Organization Address [facility] Co de Phone Number [facility] [address] [place] [address] documented in this encounter Visit Diagnoses Diagnosis Abnormal x-ray of lung Other nonspecific abnormal finding of lung field Lung nodule Solitary pulmonary nodule documented in this encounter Administered Medications Inactive Administered Medications - up to 3 most recent administrations Medication Order MAR Action Action Date Dose Rate Site fentaNYL citrate (PF) injection 25-50 mcg 25-50 mcg, intravenous, EVERY 2 MINUTES PRN, Starting on Fri06/25/22 at 0809, Until Fri06/25/22 at 0950, Other, Per Admin Instructions ONLY, Routine, Intraprocedure Given 06/25/2022 9:00 EDT 25 mcg Given 06/25/2022 8:46 EDT 25 mcg midazolam (VERSED) injection 0.5-1 mg 0.5-1 mg, intravenous, EVERY 2 MINUTES PRN, Starting on 06/25/22 at 0809, Until 06/25/22 at 0950, Other, Per Admin Instructions ONLY, Routine, Intraprocedure Given 06/25/2022 9:30 EDT 0.5 mg Given 06/25/2022 8:46 EDT 1 mg sodium chloride 0.9 % (NS) infusion 50 mL/hr, intravenous, CONTINUOUS, Starting on 06/25/22 at 0730, Until Tish 06/27/22 at 0203, Routine, Preprocedure New Bag 06/25/2022 7:33 EDT 50 mL/hr 50 mL/hr documented in this encounter Orders Medications Ordered That Leland ht Not Have Been Administered Count Last Ordered Date First Ordered Date acetaminophen (TYLENOL) suppository 650 mg 1 06/25/2022 acetaminophen (TYLENOL) tablet 650 mg 1 01/2023 flumazenil (ROMAZICON) injection 0.2 mg 1 0 06/25/2022 lidocaine (PF) 10 mg/mL (1 % ) injection 2 mg 1 06/25/2022 naloxone (NARCAN) injection 0.4 mg 1 2022 fentaNYL citrate (PF) injection 25-250 mcg 1 06/24/2022 fentaNYL citrate (PF) injection 25-50 mcg 1 06/24/2022 midazolam (VERSED) injection 0.5-1 mg 1 12/2022 midazolam (VERSED) injection 0.5-10 mg 1 Discharge Count Last Ordered Date First Orde red Date DISCHARGE PATIENT 1 06/25/2022 documented in this encounter Care Teams Therapeutic Dietitian Relationship Specialty Start Date End Date Elizabeth Dsouza MD [address] [facility] [place] [id number] PCP - General 02/13/12 documented as of this encounter
--- OUTSIDE RECORDS SUMMARY | 2023-12-04 21:46 | XMS_ITS | Encounter Summary ---
Author Organization [facility] Address [address] [place] [address] Care Team Providers Care Diamond Polisher Name Role Phone Elizabeth Dsouza MD Primary Care Provider [phone] Reason for Referral * Radiology Services (Routine/Next Available) - Closed Specialty Diagnoses / Procedures [facility] Referred To Contact Nuclear Medicine Diagnoses Lung nodule Procedures PET CT EYE TO THIGH Amilcar Damian MD MPH [address] [facility], [facility] [address] [place] [address] [facility] Referral ID Status Reason Start Date Expiration Date Visits Re quested Visits Authorized [id number] Closed 07/19/2022 09/02/2022 1 1 Encounter Details Date Type Department Care Team (Late st Contact Info) Description 07/16/2022 Orders Only [facility] Hematology & Oncology - [facility] [address] [place] [address] Doroteo Ibrahim, ABEL Lung nodule (Primary Dx) Social History Tobacco Use Types [...] No 12/28/2021 documented as of this encounter Plan of Treatment Not on file documented as of this encounter Results * PET CT EYE TO THIGH (07/26/2022 11:21 EDT) Anatomical Region Laterality Modality Body Positron Emissio n Tomography (PET) 07/26/2022 13:0 0 EDT Impressions 07/26/2022 13:00 EDT 1. Hypermetabolic 1 cm right upper lobe nodule, consistent with malignancy. 2. Small hypermetabolic left axillary lymph nodes, indeterminate. These could be reactive, although malignancy is not excluded. 3. No other evidence of metastatic disease 4. Incidental findings of coronary artery calcification and cholelithiasis. Narrative 07/26/2022 13:[address] EYE TO THIGH ??07/26/2022 9:00 AM Clinical History/Comments: lung nodule; Lung nodule, > 8mm; lung nodule Comparison: CT chest May 23, 2022 Technique: Approximately 90 minutes following the IV injection of 8.24 mCi of [id number], 3D TOF PET imaging was obtained from the skull base to upper thighs using a [employer] digital ??PET/CT system. ??The blood glucose level prior to injection was 123 mg/dl. ??The injection site was the right antecubital fossa. Findings: HEAD/NECK: The distribution of the radiopharmaceutical in the head and neck is physiological. There is no hypermetabolic mass or adenopathy. CHEST: The known 1 cm nodule in the right upper lobe has SUV max 4.7. Otherwise, activity in the chest is physiological. Specifically, there is no hypermetabolic mediastinal adenopathy. There are several small hypermetabolic left axillary nodes. The largest and most active of these has SUV max 5.8. These nodes are indeterminate. The location would be atypical for metastases from a contralateral lung mass. The low-dose CT scan done for attenuation correction and localization shows extensive coronary artery calcification. ABDOMEN/PELVIS: Activity in the abdomen and pelvis is physiological. The distribution of the radiopharmaceutical in the liver is normal. No adrenal mass is seen. Incidentally noted are gallstones. MUSCULOSKELETAL: No evidence of skeletal metastases. Procedure Note Maximiliano Regalado MD - 07/26/[address] EYE TO THIGH 07/26/2022 9:00 AM Clinical History/Comments: lung nodule; Lung nodule, > 8mm; lung nodule Comparison: CT chest May 23, 2022 Technique: Approximately 90 minutes following the IV injection of 8.24 mCi [id number], 3D TOF PET imaging was obtained from the skullbase to upper thighs using a [employer] digital PET/CT system. Theblood glucose level prior to injection was 123 mg/dl. The injection sitewas the right antecubital fossa. Findings: HEAD/NECK: The distribution of the radiopharmaceutical in the head and neck isphysiological. There is no hypermetabolic mass or adenopathy. CHEST: The known 1 cm nodule in the right upper lobe has SUV max 4.7. Otherwise,activity in the chest is physiological. Specifically, there is nohypermetabolic mediastinal adenopathy. There are several smallhypermetabolic left axillary nodes. The largest and most active of thesehas SUV max 5.8. These nodes are indeterminate. The location would beatypical for metastases from a contralateral lung mass. The low-dose CT scan done for attenuation correction and localizationshows extensive coronary artery calcification. ABDOMEN/PELVIS: Activity in the abdomen and pelvis is physiological. The distribution ofthe radiopharmaceutical in the liver is normal. No adrenal mass is seen.Incidentally noted are gallstones. MUSCULOSKELETAL: No evidence of skeletal metastases. IMPRESSION 1. Hypermetabolic 1 cm right upper lobe nodule, consistent withmalignancy. 2. Small hypermetabolic left axillary lymph nodes, indeterminate. Thesecould be reactive, although malignancy is not excluded. 3. No other evidence of metastatic disease 4. Incidental findings of coronary artery calcification andcholelithiasis. Amilcar Damian MD MPH IMG NM ORD ERABLES documented in this encounter Visit Diagnoses Diagnosis Lung nodule- Primary Solitary pulmonary nodule Lung nodule Solitary pulmonary nodule documented in this encounter Care Teams Diamond Polisher Relationship Specialty Start Date End Date Elizabeth Dsouza MD [address] [place] [address] PCP - General 02/13/12 documented as of this encounter
--- OUTSIDE RECORDS SUMMARY | 2023-12-04 21:46 | XMS_ITS | Encounter Summary ---
Author Organization [facility] Address [address] [place] [address] Care Team Providers Care Trade Manager Name Role Phone Elizabeth Dsouza MD Primary Care Provider [phone] Encounter Details Date Type Department Care Team (Latest Contact Info) Description 07/23/2022 12:09 EDT - 07/23/2022 23:59 EDT Hospital Encounter [facility] Pre-Surgical Testing [address], [place] [id number] Discharge Disposition: Home or Self Care Social [...] Sign Reading Time Taken Comments Blood Pressure - - Pulse - - Temperature - - Respiratory Rate - - Oxygen Saturation - - Inhaled Oxygen Concentration - - Weight 78.5 kg (173 lb) 07/23/2022 1146 EDT Height 157.5 cm (5' 2) 07/23/2022 1146 EDT Body Mass Index 31.64 07/23/2022 1146 EDT documented in this encounter Functional Status [...] Take 1 Tablet by mouth every morning. HYDROcodone-acetaminophe n (NORCO) 5-325 mg tablet Take 1 Tablet [...] Take 3 Tablets by mouth at bedtime. oxyCODONE-acetaminophen (PERCOCET) 5-325 mg per tablet Take 1 Tablet by mouth as needed for Pain. 07/30/2022 documented as of this encounter Discharge Disposition Disposition Code Departure Means Destination Home or Self Care documented in this encounter OR Notes * Preprocedure Instructions - Marissa Ortiz RN - 07/23/2022 1240 EDT Melodie Hodge has been instructed as follows regarding medication administration for the day of the scheduled procedure. Date of Surgery: 07/30/22 Instructions for Taking Medications Day of Surgery Medication Dose and frequency Last Dose Hold Day of Surgery Take Day of Surgery albuterol 90 mcg/actuation inhaler Inhale 2 Puffs as directed every 4 hours as needed for Wheezing.yes aspirin chewable 81 mg tablet Take 81 mg by mouth daily. yes cilostazoL (PLETAL) 100 mg tablet Take 50 mg by mouth. Once a day PAT review placed for plan famotidine (PEPCID) 20 mg tablet Take 20 mg by mouth every morning. yes losartan (COZAAR) 25 mg tablet Take 25 mg by mouth daily. 07/28/22 nitroglycerin (NITROSTAT) 0.[address] 0.4 mg under the tongue every 5 minutes as needed for Chest Pain. yes omeprazole (PRILOSEC) 20 mg capsule Take 20 mg by mouth daily. yes oxyCODONE-acetaminophen (PERCOCET) 5-325 mg per tablet Take 1 Tablet by mouth as needed for Pain. Yes pregabalin (LYRICA) 50 mg capsule Take 50 mg by mouth 2 times daily at 9am and 9pm. yes rosuvastatin (CRESTOR) 10 mg tablet Take 40 mg by mouth daily. yes tiotropium (SPIRIVA) 18 mcg inhalation capsule Inhale 18 mcg as directed daily. yes traZODone (DESYREL) 50 mg tablet Take 50 mg by mouth at bedtime. 1.5 tablet at bedtime Takes hs MARISSA ORTIZ RN 07/23/22 12:05 Stop all vitamins and supplements 7 days prior to surgery. Nonsteroidal anti-inflammatories (NSAIDS; i.e. ibuprofen, naproxen, indomethacin, ketorolac, Motrin) stop 3 days prior to surgery. Acetaminophen (Tylenol) can be taken prior to surgery if needed. Preparing for surgery: o Fasting- Follow the eating and drinking instructions below unless otherwise instructed by your surgeon - STOP all solid FOOD and LIQUIDS Containing Fats, including Milk, at midnight the night before surgery - You May have FAT FREE CLEAR liquids until 2 hours before your scheduled time to arrive to the hospital on the day of surgery. Acceptable clear liquids include Water, apple juice, and sports drinks (Gatorade?? or Powerade?? avoid red and purple). - On the day of your procedure, no gum, mints, lozenges or hard candy. - Children under 1 year of age may have breast milk up to 4 hours and formula up to 6 hours before their procedure. - Pedialyte?? is also an acceptable clear liquid for children. o Safety - Infection prevention Shower with an ANTIBACTERIAL SOAP the night before surgery and the morning of surgery. If you were given scrub sponges, use those also, scrubbing well over the area indicated by your surgeon. Do not shave your surgical site for 3 days prior to surgery. Protect Surgical Site from injury such as cuts, bruising or harris After your morning shower avoid any personal care products such as creams, lotion, powders, deodorant, makeup, hairspray, perfumes or colognes. - Ride home We require you have a responsible Adult to drive you home after surgery or to accompany you in getting home via Taxi or Bus Your Family Member/Ride Home should stay at the hospital during the procedure until you are discharged. If your ride can't stay in the hospital, they still need to come in to pick you up to assist with medication strip picker from pharmacy, review of discharge instructions and surgical consult. We ask that your ride stay within 15 minutes of the hospital for strip picker. - CPAP/BiPAP Bring your CPAP or BiPAP machine in with you on the day of your surgery. - Nail costa rican and Jewelry Remove all finger nail costa rican and makeup before surgery Remove all jewelry including rings and Body Piercings before coming in for Surgery. - Glasses and Contacts Wear glasses on the Day of surgery. For eye surgeries avoid contacts for 7 days prior to surgery, unless otherwise instructed by your surgeon. - Full beards Shaving is optional, certain aspects of the anesthetic management can be made easier without a fullbeard. - Smoking Stop smoking tobacco and marijuana prior to surgery as much as possible with a minimum of 24 hours prior to surgery. o Medications - Inhalers Bring your inhalers in with you on the day of your surgery. - Bowel cleansing Follow the instructions for bowel cleansing given to you by your surgeon. Once you start, drink lots of clear liquids, stopping them at the time your surgeon told you to stop. It would be best to stay at home while doing the bowel cleansing. o Legal Guardianship - BRING Proof of Guardianship on Day of Surgery. - Legal Guardian is to be available on the Day of Surgery by Telephone if not physically present onthe Day of Surgery. - Surgical and/or other consents will be signed by Legal Guardian prior to the Day of Surgery if possible. o Call your surgeon IF: - You become ill before your surgery. - You have any new skin problems near the area where your surgery will be, such as a rash, blister,or infection. - You have any questions. - Your surgeon may have given you other instructions to prepare for surgery. Please follow these and if you have questions call your surgeon's office. Day of surgery o Identification - Please bring a photo ID, insurance card and any other information needed for your surgery. o Arrival - General Arrival Time is 2 hours prior to your surgery time. o Medications - Take as directed above with a small sip of water on day of surgery. - Bring a list of medications you take on the day of surgery. - Leave medications at home. o Clothing - Wear casual, loose fitting and comfortable clothing. We recommend you wear/bring inexpensive (avoid silks, etc.) clothing on Day of Surgery. For arm and hand surgery wear a zip up or button up shirt with short sleeves. For eye surgery, do not wear a shirt that pulls over the head unless it has a wide neck opening. Bring a hat with a visor or a pair of sunglasses to wear home after surgery. o Medical Devices - Bring any medical devices that you would normally use during the course of your day. These items include, but are not limited to: insulin pumps, mobility aids, CPAP. o Valuables - Bring only money you may need for you hospital co-pay and to purchase any prescriptions on the way home. Let the person driving you home hold you're your money while you are in surgery. - Leave jewelry at home - Leave contact lenses at home. Wear your eye glasses and bring your eye glass case. - Leave valuable items at home. Ask a family member to bring them in after you have been admitted to the inpatient unit if possible. o Equipment - Remember to bring pillows for the car ride home to elevate your arm or leg (for arm/leg surgery).Bring Crutches if needed. - Use the Volumetric Office Supervisor given to you by your surgeon or nurse. Starting 2 weeks prior to your surgery use it 2 times a day, 10 times each use. Bring it with you on the day of your surgery. o Visitation - Per our Welcoming Policy ???Unit nursing staff may have to ask patients and families to limit numbers of family members at the bedside when it impacts the environment of care?? - Typically two visitors are allowed in the Preop and Recovery areas. o Bring plastic bags and paper towels in the car for the Trip Home. o Contact information - Patient/Family given Preop Contact Numbers appropriate to campus of surgery. For Day of Surgery: [facility] [place]: [phone]; [facility]; [phone]. Prior to Day of Surgery call: [phone]. Pre-op toll Free Number . - More information can also be found on our website: [email or web address] documented in this encounter Miscellaneous Notes * PAT Note - Dorothy Herron APRN CNM - 07/23/2022 1240 EDT 67 y.o. female with a PMH of [...] plan follow up and advise if necessary. MARISSA ORTIZ RN 07/23/22 12:07 07/15/2022 note from pulmonary pt stated she was not taking Pletal. Message sent to pulmonary for guidance re:stopping this medication prior to surgery. Per Audrey Mix-she is calling PCP to obtain a plan. Dorothy Herron APRN, MSN @[phone] documented in this encounter Plan of Treatment Not on file documented as of this encounter Visit Diagnoses Not on filedocumented in this encounter Discontinued Medications Medication Sig Discontinue Reason Start Date End Da te ferrous sulfate 324 mg (65 mg iron) tablet,delayed release (DR/EC) Take 324 mg by mouth. Bedtime empty stomache Therapy completed 07/23/2022 magnesium oxide (MAG-OX) 400 mg (241.3 mg magnesium) tablet Take 400 mg by mouth daily. Therapy completed 07/23/2022 DULoxetine (CYMBALTA) 30 mg delayed release capsule Take 1 tab once daily for a week, then increase to 2 tabs once daily afterwards. Therapy completed 01/17/2021 07/23/2022 pyridoxine, vitamin B6, (VITAMIN B6) 50 mg tablet Take 1 Tablet by mouth daily. Please call the neurology office for further instructions. Therapy completed 01/23/2021 07/23/2022 documented as of this encounter Historical Medications * This list may reflect changes made after this encounter. Medication Sig Dispensed Refills Start Date End Date oxyCODONE-acetaminophen (PERCOCET) 5-325 mg per tablet Take 1 Tablet by mouth as needed for Pain. 07/30/2022 added in this encounter Care Teams Trade Manager Relationship Specialty Start Date End Date Elizabeth Dsouza MD [address] [place] [address] PCP - General 02/13/12 documented as of this encounter
--- OUTSIDE RECORDS SUMMARY | 2023-12-04 21:46 | XMS_ITS | Encounter Summary ---
Author Organization [facility] Address [address] [place] [address] Care Team Providers Care Bologna Lacer Name Role Phone Elizabeth Dsouza MD Primary Care Provider [phone] Reason for Visit * Reason Onset Date Comments Appointment Related 07/12/2022 Encounter Details Date Type Department Care Team (Late st Contact Info) Description 07/12/2022 Telephone [facility] Pulmonology & Critical Care - [address] [id number] Amilcar Damian MD MPH [address] [place] [address], [address] [place] [address] Appointment Related Social History Tobacco Use Types Packs/Day Years [...] encounter Miscellaneous Notes * Telephone Encounter - Payal Gallagher - 07/12/2022 1012 EDT LVM with appointment date and time for patient. Requested patient call back to confirm appointment for 07/15/22. documented in this encounter Plan of Treatment Not on file documented as of this encounter Visit Diagnoses Not on filedocumented in this encounter Care Teams Bologna Lacer Relationship Specialty Start Date End Date Elizabeth Dsouza MD [address] [place] [phone] PCP - General 02/13/12 documented as of this encounter
--- OUTSIDE RECORDS SUMMARY | 2023-12-04 21:46 | XMS_ITS | Encounter Summary ---
Author Organization [facility] Address [address] [place] [address] Care Team Providers Care Serology Technician Name Role Phone Elizabeth Dsouza MD Primary Care Provider [phone] Encounter Details Date Type Department Care Team (Late st Contact Info) Description 08/01/2022 Prep for Procedure [facility] Pulmonology & Critical Care - [address] [phone] Amilcar Damian MD MPH [address] [facility], [address] [place] [address] Social History Tobacco Use Types [...] on filedocumented in this encounter Care Teams Serology Technician Relationship Specialty Start Date End Date Elizabeth Dsouza MD [address] [place] [place] [address] PCP - General 02/13/12 documented as of this encounter
--- OUTSIDE RECORDS SUMMARY | 2023-12-04 21:46 | XMS_ITS | Encounter Summary ---
Author Organization [facility] Address [address] [place] [address] Care Team Providers Care Staffing Specialist Name Role Phone Elizabeth Dsouza MD Primary Care Provider [phone] Reason for Visit * Reason Onset Date Comments Appointment Related 06/03/2022 Encounter Details Date Type Department Care Team (Late st Contact Info) Description 06/03/2022 Telephone [facility] Interventional Radiology - [address] [address] Rigo Jasmine PA-C [address] [place] [address] [address] [place] [address] Appointment Related Social History Tobacco [...] encounter Miscellaneous Notes * Telephone Encounter - Yudy Mukherjee - 06/03/2022 1357 EDT Spoke with Melodie in regards to scheduling their outpatient CT guided right lung biopsy with interventional radiology at [facility]. Patient will be coming in on Sunday 06/25 @ 700am, checking in at 645am at registration. The following details were reviewed with patient to ensure procedure completed on scheduled date: -Patient understands that they will need a straddle bug driver for this procedure. -Patient understands that they should plan to be here for 4-5 hours that day in total for prep, procedure and recovery. Pre procedure instructions: Covid 19 Policy: As of September 18 2021, Pre- procedure Covid -19 testing is no longer required. Please call our officeif you become sick or experience any Covid-19 symptoms prior to this appointment. Symptoms include fever, cough, sore throat, loss of taste or smell or difficulty breathing. You will also be screenedfor symptoms on the day of the procedure upon arrival to the hospital. Medication instruction: - RN to contact with detailed pre procedure medication instructions - They will take their morning medications with a small sip of water. - Per [facility] RN letter patient confirmed that they are not taking blood thinning medications at this time * -Patient verbalized understanding of OTC pain medication policy DAY OF PROCEDURE PREP: Patient confirmed understanding of the following instructions: -No solid food or liquids containing fats, including milk after midnight before the procedure. -On the day of procedure, only water, apple juice or sports drinks (gatorade or powerade) until 2 hours before the check in time (starting at 5:00am) After 5:00 AM, nothing by mouth. Please be sure to take a shower either the evening before or the morning of your procedure. You may take your medications as directed at any time with small sips of water. Do not bring any valuables with you to the hospital. If you use a BiPAP or CPAP machine to help you breathe, please bring it with you on the day of the procedure. Please bring a list of your allergies and current medications. Please notify our office if there is any change in your health such as a cold or a fever. Patient aware IR RN will contact prior to procedure to go over prep in detail and answer any questions. I have sent patient confirmation via mail. I have notified referring office of this patients scheduled date and time. Any further questions can be addressed to Interventional Radiology Department [phone] Ext. 1 Patient verbalized understanding and agrees with Plan of Care. No cognitive barriers were identified during this conversation & they have our contact number to call with questions. Yudy Mukherjee documented in this encounter Plan of Treatment Not on file documented as of this encounter Visit Diagnoses Not on filedocumented in this encounter Care Teams Staffing Specialist Relationship Specialty Start Date End Date Elizabeth Dsouza MD [address] [place] [phone] PCP - General 02/13/12 documented as of this encounter
--- OUTSIDE RECORDS SUMMARY | 2023-12-04 21:46 | XMS_ITS | Encounter Summary ---
Author Organization [facility] Address [address] [place] [address] Care Team Providers Care Ignition Specialist Name Role Phone Elizabeth Dsouza MD Primary Care Provider [phone] Encounter Details Date Type Department Care Team (Late st Contact Info) Description 05/28/2022 Lab Requisition [facility] Pathology & Laboratory Medicine - [facility] [address] [place] [address] Outr Resulting Lab, Provider Social History Tobacco [...] Procedure Name Priority Date/Time Associated Diagnosis Comments URINE MONOCLONAL PROTEIN STUDY (UPEP WITH IMMUNOTYPING) PERFORMABLE Today 05/28/2022 11:20 EDT PROTEIN, TOTAL, RANDOM, URINE Today 05/28/2022 11:20 EDT URINE MONOCLONAL PROTEIN STUDY (UPEP WITH IMMUNOTYPING) Routine 05/28/2022 11:20 EDT documented in this encounter Results * URINE MONOCLONAL PROTEIN STUDY (UPEP WITH IMMUNOTYPING) PERFORMABLE (05/28/2022 11:20 EDT) Albumin, Urine % 32.9 N/A % 05/31/19 23 15:42 EDT [facility] Albumin, Urine mg/dL 14 mg/dL 05/30/2022 15:42 EDT [facility] Globulins, Urine % 67.1 N/A % 05/30/2022 15:42 EDT [facility] Globulins, Urine mg/dL 28 mg/dL 05/30/2022 15:42 EDT [facility] UPEP Comment See Comment 05/30/2022 15:42 EDT [facility] Comment:Electrophoresis scre ening performed; Immunotyping to follow. ??See scanned/supplementary report. Immunotyping, Urine Current Interpretation : Negative for free monoclonal light chains. Interpreted by: Kannan Hamilton MD, PhD 05/30/2022 15:17. 05/30/2022 15:42 EDT [facility] Total Protein, Urine 42 See Note mg/dL 05/30/2022 15:42 EDT [facility] Comment: NOTE: Reference range has not been established for total protein concentration in random urine specimens. Urine URINE / Unknown 05/28/2022 1 1:20 EDT 05/29/2022 16:34 EDT Provider Outr Resulting Lab URINALYSIS O RDERABLES [facility] [address] [place] [address] * PROTEIN, TOTAL, RANDOM, URINE (05/28/2022 11:20 EDT) Urine URINE / Unknown 05/28/2022 1 1:20 EDT 05/29/2022 16:34 EDT Provider Outr Resulting Lab URINALYSIS O RDERABLES [facility] [address] [place] [address] documented in this encounter Visit Diagnoses Not on filedocumented in this encounter Care Teams Ignition Specialist Relationship Specialty Start Date End Date Elizabeth Dsouza MD [address] [place] [address] PCP - General 02/13/12 documented as of this encounter
--- OUTSIDE RECORDS SUMMARY | 2023-12-04 21:46 | XMS_ITS | Encounter Summary ---
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-CMS) Belkis Holm MD [address] [place] [phone] Acosta Alan MD [address] [place] [phone] Referral ID Status Reason Start Date Expiration Date Visits Requested Visits Authorized [id number] Authorization Not Required Specialty Services Required 3 1 1 Question Answer Reason for Request: RUL early stage squamous cell carcinoma, eval for radiation treatment Reason for Visit * Reason Comments New Patient Visit Encounter Details Date Type Department Care Team (Late st Contact Info) Description 08/05/2022 15:00 EDT Office Visit [facility] Cardiothoracic Surgery - [address] [address] Belkis Holm MD [address] [facility], [address] [place] [address] Primary cancer of right upper lobe of lung (HCC-CMS) (Primary Dx) Social History [...] Sign Reading Time Taken Comments Blood Pressure 154/67 08/05/2022 1447 EDT Pulse 76 08/05/2022 1447 EDT Temperature - - Respiratory Rate - - Oxygen Saturation - - Inhaled Oxygen Concentration - - Weight 77.6 kg (171 lb) 08/05/2022 1447 EDT Height - - Body Mass Index 31.28 07/30/2022 0653 EDT documented in this encounter [...] as of this encounter Progress Notes * Belkis Holm MD - 08/05/2022 1500 EDT [facility] Clinic Visit Note Date: 08/05/2022 Patient: Melodie Hodge Referred by: Elizabeth Dsouza Subjective: Melodie Hodge is a 67 y.o. female who presents today for New Patient Visit Patient History of Present Illness: She has a history of CAD (PCI 1995), CKD (Cr 1.4), and tobacco abuse. She had a LDCT 05/23/22 which showed a 1.5 cm RUL lung nodule. She had an IR biopsy 06/25/22 which was suspicious for squamous cell carcinoma. She then had a PET 07/26/22 which showed SUV of 4/7 in the RUL nodule. She underwent EBUS with Dr. 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 Station 7 was negative for malignancy, and 4L was nondiagnostic. She had a 6MW test 07/15/22 and was able to walk 750 feet, limited by leg pain. She reports sciatic nerve leg pain with activity, but denies chest pain or dyspnea. She is currently smoking 1 ppd, down from 1.5-2 ppd. PMH PSH Past Medical History: Diagnosis Date ??? Activity, other involving cardiorespiratory exercise 07/23/22- + SOB w/ exertion, hx COPD ??? Anemia 07/23/22- found to have bleeding on endoscopy. cauterized- no problems since ??? Arthritis 07/23/22- legs ??? Back pain 07/23/22- pinched siatic nerve ??? CAD (coronary artery disease) 07/23/22- s/p 2 JÚNIOR ??? COPD (chronic obstructive pulmonary disease) ([facility]) 07/23/22- well controlled w/ use [...] History: Procedure Laterality Date ??? CARDIAC SURGERY 1996 Stent x 2 ??? CARPAL TUNNEL RELEASE Bilateral Social History Family history Social History Tobacco Use ??? Smoking status: Every Day Packs/day: 1.00 Types: Cigarettes Start date: 1968 Passive exposure: Never ??? Smokeless tobacco: Never Substance Use Topics ??? Alcohol use: Not Currently Family History Problem Relation Age of Onset ??? Emphysema Father ??? Cancer Sister ??? Heart Disease Sister Medications Allergies Current Outpatient Medications Medication ??? albuterol 90 [...] No current facility-administered medications for this visit. Latex, Morphine, and Oxycodone Review of Systems: 10 point ROS performed, pertinent positives per HPI. All other systems negative. Objective: Physical Examination: Vitals: BP (!) 154/67 (BP Cuff Location: Left arm, BP Patient Position: Sitting, BP Cuff Sizes: Adult, regular) Pulse 76 Wt 77.6 kg (171 lb) BMI 31.28 kg/m?? Constitutional: No apparent distress HEENT: Moist mucous membranes Respiratory: Clear to auscultation bilaterally Cardiovascular: +S1S2, regular rate Gastrointestinal: Soft, Musculoskeletal: No gross deformity Skin: Normal appearance, temperature Neurologic: Alert, oriented Psychiatric: Cooperative Laboratory: Admission on 07/30/2022, Discharged on 07/30/2022 Component Date Value Ref Range Status ??? Note to Patient 07/30/2022 Final Value:This result contains rich text formatting which cannot be displayed here. ??? Final Diagnosis 07/30/2022 Final Value:This result contains rich text formatting which cannot be displayed here. ??? Diagnosis Comment 07/30/2022 Final Value:This result contains rich text formatting which cannot be displayed here. ??? Attestation 07/30/2022 By the signature below, the attending physician certifies that they havepersonally conducted a gross and/or microscopic examination of the described specimens and rendered or confirmed the above diagnosis. Final ??? Rapid Diagnosis 07/30/2022 Final Value:This result contains rich text formatting which cannot be displayed here. ??? Clinical History 07/30/2022 Final Value:This result contains rich text formatting which cannot be displayed here. ??? Gross Description 07/30/2022 Final Value:This result contains rich text formatting which cannot be displayed here. ??? Performing Lab 07/30/2022 Final Value:This result contains rich text formatting which cannot be displayed here. Radiology: FL C-ARM 0-1 HOUR Result Date: 07/30/2022 This is a non-reportable exam. XR CHEST 2 VIEWS Result Date: 07/30/2022 This is a non-reportable exam. XR CHEST PORTABLE 1 VIEW Result Date: 07/30/2022 XR CHEST PORTABLE 1 VIEW 07/30/2022 10:15 AM CLINICAL HISTORY/COMMENTS: Lung nodule s/p robotic bronch. DONE IN OR COMPARISON: Chest radiographs June 25, 2022.. TECHNIQUE: Single portable AP view of the chest. FINDINGS: Lines/tubes/devices: None Lungs: Clear. Pleura: There is no pneumothorax. Cardia c and mediastinal contours: There is atherosclerotic calcination of the aortic arch. Soft tissues and extrathoracic findings: Normal. Bones: Normal for age. No pneumothorax status post bronchoscopic biopsy. CT SECONDARY READ CHEST Result Date: 07/29/2022 07/26/2022 11:00 AM Clinical History/Comments: confirm outside findings Technique: CT of the chest was performed at an outside institution on May 23, 2022. IV contrast material was not administered. Exam description: Lung cancer screening CT Comparison: FDG PET/CT July 26, 2022. CT-guided biopsy June 25, 2022 Chest radiograph August 18, 2017 Findings: Lower neck: No abnormalities. Mediastinum and frannie (non-vascular): No enlarged mediastinal or hilar lymph nodes. The esophagus appears normal. Cardiovascular: Atherosclerotic calcifications of the aorta and its branches. There is bulky calcification at the origin of the right brachiocephalic artery resulting mild luminal narrowing. There are severe coronary calcifications. Lungs and airways: There is diffuse bronchial thickening and centrilobular emphysema. There is a spiculated right upper lobe peripheral solid pulmonary nodule measuring 18 x 12 x 9 mm (3, 227). Other additional small solid pulmonary nodules measuring up to 4 mm throughout both lungs. Pleura: No pleural effusion. Upper abdomen (limited to upper abdomen, not optimized forabdominal imaging): No abnormalities. Bones and chest wall soft tissues: Slightly mottled appearance of the osseous structures, indeterminate. No specific discrete suspicious osseous lesion. Enlarged indeterminate left axillary and retropectoral lymph nodes. 1. Spiculated right upper lobe peripheral solid pulmonary nodule measuring 18 x 12 x 9 mm (3, 227),concerning for neoplasm (Lung-RADS 4B). 2. Other additional indeterminate small solid pulmonary nodules measuring up to 4 mm throughout both lungs. Attention on follow-up is advised. 3. Enlarged indeterminate left axillary and retropectoral lymph nodes. Attention on follow-up is advised. 4. Slightly mottled appearance of the osseous structures, indeterminate. No specific discrete suspicious osseous lesion. PET CT EYE TO THIGH Result Date: 07/26/[address] EYE TO THIGH 07/26/2022 9:00 AM Clinical History/Comments: lung nodule; Lung nodule, > 8mm; lung nodule Comparison: CT chest May 23, 2022 Technique: Approximately 90 minutes following the IV injection of 8.24 mCi of F18- fluorodeoxyglucose, 3D TOF PET imaging was obtained from the skull base to upper thighs using a [employer] | mentor | [employer] digital PET/CT system. The blood glucose level prior to injection was 123 mg/dl. The injection site was the right antecubital fossa. Findings: HEAD/NECK: Thedistribution of the radiopharmaceutical in the head and neck is physiological. There is no hypermetabolic mass or adenopathy. CHEST: The known 1 cm nodule in the right upper lobe has SUV max 4.7. Otherwise, activity in the chest is physiological. Specifically, there is no hypermetabolic mediastinaladenopathy. There are several small hypermetabolic left axillary nodes. The largest and most activeof these has SUV max 5.8. These nodes are indeterminate. The location would be atypical for metastases from a contralateral lung mass. The low-dose CT scan done for attenuation correction and localization shows extensive coronary artery calcification. ABDOMEN/PELVIS: Activity in the abdomen and pelvis is physiological. The distribution of the radiopharmaceutical in the liver is normal. No adrenalmass is seen. Incidentally noted are gallstones. MUSCULOSKELETAL: No evidence of skeletal metastases. 1. Hypermetabolic 1 cm right upper lobe nodule, consistent with malignancy. 2. Small hypermetabolicleft axillary lymph nodes, indeterminate. These could be reactive, although malignancy is not excluded. 3. No other evidence of metastatic disease 4. Incidental findings of coronary artery calcification and cholelithiasis. Pulmonary Function Tests: Pulmonary Functions Testing Results: 07/26/22: FEV1 83%, DLCO 74% Assessment: Melodie Hodge is a 67 y.o. female who presents today for New Patient Visit Plan: - Reviewed imaging and d/w patient her RUL squamous cell carcinoma, which appears to be early stage. Discussed operative approach with VATS RUL wedge resection and lymph node sampling. Discussed expected post-op course and possible complications. Discussed alternative treatment including radiation.She had a very sore throat after her EBUS, and is reluctant to undergo another surgical procedure. She would like to discuss with radiation oncology. I think she will do well with either treatment. Will refer to Dr. Alan at [facility] for evaluation. 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
--- OUTSIDE RECORDS SUMMARY | 2023-12-04 21:46 | XMS_ITS | Encounter Summary ---
Author Organization [facility] Address [address] [place] [address] Care Team Providers Care Camera Person Name Role Phone Elizabeth Dsouza MD Primary Care Provider [phone] Encounter Details Date Type Department Care Team (Late st Contact Info) Description 05/28/2022 Lab Requisition [facility] Pathology & Laboratory Medicine - [facility] [address] [place] [address] Outr Resulting Lab, Provider Social History Tobacco [...] Procedure Name Priority Date/Time Associated Diagnosis Comments SPEP, INCLUDES QUANTITATION OF MONOCLONAL SPIKE PERFORMABLE Today 05/28/2022 11:20 EDT SPEP, INCLUDES QUANTITATION OF MONOCLONAL SPIKE Routine 05/28/2022 11:20 EDT PROTEIN, TOTAL Today 05/28/2022 11:20 EDT documented in this encounter Results * SPEP, INCLUDES QUANTITATION OF MONOCLONAL SPIKE PERFORMABLE (05/28/2022 11:20 EDT) Albumin % 58.9 55.8 - 66.1 % 05/30/2022 13:26 [facility] Albumin g/dL 4.4 3.6 - 5.2 g/dL 05/30/2022 13:26 [facility] Alpha-1 % 4.9 2.9 - 4.9 % 05/30/2022 13:26 [facility] Alpha-1 g/dL 0.40 0.15 - 0.40 g/dL 05/30/2022 13:26 [facility] Alpha-2 % 11.2 7.1 - 11.8 % 05/30/2022 13:26 [facility] Alpha-2 g/dL 0.80 0.50 - 1.00 g/dL 05/30/2022 13:26 [facility] Beta % 10.6 8.4 - 13.1 % 05/30/2022 13:26 [facility] Beta g/dL 0.80 0.60 - 1.20 g/dL 05/30/2022 13:26 [facility] Gamma % 14.4 11.1 - 18.8 % 05/30/2022 13:26 [facility] Gamma g/dL 1.10 0.60 - 1.60 g/dL 05/30/2022 13:26 [facility] SPEP Comment No apparent monoclonal protein seen on serum electrophoresis 05/30/2022 13:26 [facility] Comment:See scanned/suppleme ntary report. Total Protein 7.5 6.3 - 8.2 g/dL 05/30/2022 13:26 [facility] Blood VENOUS BLOOD / Unknown 05/28/2022 11:20 EDT 05/29/2022 16:42 EDT Provider Outr Resulting Lab CHEMISTRY & BLOOD GAS ORDERABLES Performing Organization Address City/[facility] Co de Phone Number [facility] [address] [place] [address] * PROTEIN, TOTAL (05/28/2022 11:20 EDT) Blood VENOUS BLOOD / Unknown 05/28/2022 11:20 EDT 05/29/2022 16:42 EDT Provider Outr Resulting Lab CHEMISTRY & BLOOD GAS ORDERABLES Performing Organization Address [facility] Co de Phone Number [facility] [address] [place] [address] documented in this encounter Visit Diagnoses Not on filedocumented in this encounter Care Teams Camera Person Relationship Specialty Start Date End Date Elizabeth Dsouza MD [address] [place] [phone] PCP - General 02/13/12 documented as of this encounter
--- OUTSIDE RECORDS SUMMARY | 2023-12-04 21:46 | XMS_ITS | Encounter Summary ---
Author Organization [facility] Address [address] [place] [address] Care Team Providers Care Embroiderer Name Role Phone Elizabeth Dsouza MD Primary Care Provider [phone] Reason for Referral * Test (Routine/Next Available) - Authorization Not Required Specialty Diagnoses / Procedures [facility]erred By [facility] Referred To Contact Diagnoses Lung nodule Procedures PULMONARY FUNCTION TESTING Juliocesar Limon MD Referral ID Status Reason Start Date Expiration Date Visits Requested Visits Authorized [id number] Authorization Not Required 07/15/2022 1 1 Reason for Visit * Reason Comments New Patient Visit DC Encounter Details Date Type Department Care Team (Late st Contact Info) Description 07/15/2022 16:00 EDT Office Visit [facility] Pulmonology & Critical Care - [facility] [address], [place] [id number] Amilcar Damian MD MPH [address] [facility], [address] [place] [address] Lung nodule (Primary Dx) Social History Tobacco [...] Sign Reading Time Taken Comments Blood Pressure 172/80 07/15/2022 1552 EDT Pulse 86 07/15/2022 1552 EDT Temperature 35.9 ??C (96.6 ??F) 07/15/2022 1552 EDT Respiratory Rate - - Oxygen Saturation 96% 07/15/2022 155 EDT Inhaled Oxygen Concentration - - Weight 80.7 kg (178 lb) 07/15/2022 155 EDT Height 157.5 cm (5' 2.01) 07/15/2022 155 EDT Body Mass Index 32.55 07/15/2022 155 EDT documented in this encounter Functional Status Functional Status Response Date of Assess ment Are you deaf or do you have serious difficulty h earing? No 12/28/2021 documented as of this encounter Patient Instructions * Patient Instructions* Audrey Mix RN - 07/15/2022 16:00 EDT You will be contacted to schedule your appointment for bronchoscopy [EBUS] to do a biopsy of your lymph nodes and your lung nodule. Audrey will call with the date at the end of this week. You will also be scheduled for another imagine [PET scan] which looks for uptake if cells are growing faster than normal. Audrey Will call you the day after your procedure to check in. The biopsy results will take 5-7 days and we will have an appointment to go over this. Call Audrey with questions [phone] documented in this encounter Progress Notes * Audrey Mix RN - 07/15/2022 1600 EDT Interventional Pulmonary Pre-Op Nursing Note Procedure Date: TBD Provider: Dr. Damian Time of procedure finalized on: 4 days prior to procedure. There is a chance this could change and in that case patient will be notified [facility] Bronchoscopy procedure day was discussed with Melodie Hodge - A hire car driver is required (this does not include taxis or Uber) - Patients will need to check in 2 hours prior to procedure time. The procedure itself will last 1.5-2 hours. Following the procedure patients are monitored for about 2 hours in the recovery area. - Patient should not stay alone the night following the procedure. Medications Anticoagulation: None (not on platel per patient) Prescribed by: N/A Hold parameters: N/A To be stopped: N/A It is ok to continue aspirin Pre-op nursing will update patient on other medication instructions prior to procedure Post Procedure - The following day a post op phone call will be done for symptom check in - Expected post procedure findings: - Fever in the first 24 hours (if fever occurs after 24 hours from procedure patient needs to call clinic to update) - Cough - Sore throat - Unexpected findings that warrant an ED evaluation: - Coughing up a tablespoon or more of blood - Chest pain - Shortness of breath - Restrictions: Activity as tolerated Follow up - Results will take about a week to finalize. These results will show up on [employer] at the time they are released to providers. All results will be discussed at follow up appointment on : Pending procedure * Audrey Mix RN - 07/15/2022 1600 EDT Name: Melodie Hodge Date of : 1955 Date: 07/15/2022 Pulmonary Function Lab 6 MINUTE WALK TEST Indication/Diagnosis: Lung nodule Pre/Resting B/P: 172/80 Pre/Resting HR: 86 Pre/Resting O2 Sat: 96 % Pre/Resting JOSE ALFREDO: 0 Oxygen Used?: No Oxygen liter/min: RA Post/Recovery B/P: 136/68 Post/Recovery HR: 93 Post/Recovery O2 Sat: 93 % Post/Recovery: 0 Maximal JOSE ALFREDO: 1 Post Oxygen liter/min: RA Walked without assistance. Standard finger probe used. TIME HR Sat 02 liter/min COMMENTS 30 sec 93 94 0 LPM 1 min 95 95 0 LPM 1 min/30 sec 92 94 0 LPM 2 min 95 95 0 LPM 2 min/30 sec 94 95 0 LPM 3 min 93 96 0 LPM 3 min/30 sec 97 95 0 LPM 4 min 95 96 0 LPM 4 min/30 sec 98 96 0 LPM 5 min 98 96 0 LPM 5 min/30 sec 90 96 0 LPM 6 min 94 96 0 LPM Distance walked: 750 feet. Limited by leg pain Test performed by: AUDREY MIX RN Date: 07/15/2022 Time: 17:11 Provider Interpretation: Normal oxygenation. Reduced ambulatory distance. Juliocesar Limon M.D. Department of Pulmonary/Critical Care Medicine Director Of [employer], F-2 Attestation statement: Supervising Physician Amilcar Damian MD MPH * Juliocesar Limon MD - 07/15/2022 1600 EDT Images from the original note were [...] with Chantix. Using e-cigarettes. Lives alone in [place], [place]. Maintains home. Denies functional limitations; although notes exertion is limited by right-sided sciatic pain. Denies chest pain or pressure. No palpitations. No exertional dyspnea, although minimal ambulation attributed to lower extremity discomfort. Not regularly followed by cardiology; underwent PCI in 1995 for NSTEMI. No further cardiac events. 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 No occupational exposures to chemicals or fumes. Social History: Lives alone in [place], [place]. Multiple pets within the home; including cats, dogs, and parakeets. Denies issues with mold or mildew. Family History: No family history of lung cancer. 4 adult children are healthy. PMHx: HTN HLD CAD s/p PCI [1995] at [facility] Lower extremity pain PSHx: has [...] discussed with Dr. Damian. Juliocesar Limon MD [facility] Fellow Attestation statement: I performed or was present during the zayas or critical portions of the visit and participated in the management of the patient. I agree with the findings and plan of care documented in the resident's/fellow's note.I have made additional edits in the assessment and plan above. Amilcar Damian MD MPH documented in this encounter Plan of Treatment Not on file documented as of this encounter Results * PULMONARY FUNCTION TESTING (07/26/2022 14:15 EDT) 07/26/2022 14:1 5 EDT Juliocesar Limon MD PFT ORDERABLES [facility] PFT documented in this encounter Visit Diagnoses Diagnosis Lung nodule- Primary Solitary pulmonary nodule documented in this encounter Orders Case Request Count Last Ordered Date First Orde red Date CASE REQUEST OPERATING ROOM 1 07/15/2022 documented in this encounter Care Teams Embroiderer Relationship Specialty Start Date End Date Elizabeth Dsouza MD [address] [place] [id number] PCP - General 02/13/12 documented as of this encounter
--- OUTSIDE RECORDS SUMMARY | 2023-12-04 21:46 | XMS_ITS | Encounter Summary ---
Author Organization [facility] Address [address] [place] [address] Care Team Providers Care Dairy Technologist Name Role Phone Elizabeth Dsouza MD Primary Care Provider [phone] Reason for Visit * Reason Onset Date Comments Coordination Of Care 07/18/2022 Encounter Details Date Type Department Care Team (Late st Contact Info) Description 07/18/[address] [facility] Pulmonology & Critical Care - [address] [id number] Amilcar Damian MD MPH [address] [place] [address], [address] [place] [address] Coordination Of Care Social History Tobacco Use Types Packs/Day [...] encounter Miscellaneous Notes * Telephone Encounter - Ana Luisa Lou - 07/18/2022 1040 EDT Belkis, with [facility], notes that she had received a request, from ABEL [place], to have patient's most recent lab results for CBC and CMP faxed to Pulmonology. Caller reports that patient's last CBC and CMP appears to have been in December,, and they do not have anything more recent to send. documented in this encounter Plan of Treatment Not on file documented as of this encounter Visit Diagnoses Not on filedocumented in this encounter Care Teams Dairy Technologist Relationship Specialty Start Date End Date Elizabeth Dsouza MD [address] [place] [id number] PCP - General 02/13/12 documented as of this encounter
--- OUTSIDE RECORDS SUMMARY | 2023-12-04 21:46 | XMS_ITS | Encounter Summary ---
Author Organization [facility] Address [address] [place] [address] Care Team Providers Care Paper Production Engineer Name Role Phone Elizabeth Dsouza MD Primary Care Provider [phone] Reason for Visit * Reason Comments Follow-up Encounter Details Date Type Department Care Team (Late st Contact Info) Description 07/31/2022 10:30 EDT Nurse Only [facility] Pulmonology & Critical Care - [facility] [address] [place] [address] Pulmonary, Nurse Lung nodule (Primary Dx) Social History Tobacco [...] No 12/28/2021 documented as of this encounter Progress Notes * Audrey Mix RN - 07/31/2022 1030 EDT LMOM asking patient to call back to discuss symptoms s/p bronchoscopy. documented in this encounter Plan of Treatment Not on file documented as of this encounter Visit Diagnoses Diagnosis Lung nodule- Primary Solitary pulmonary nodule documented in this encounter Care Teams Paper Production Engineer Relationship Specialty Start Date End Date Elizabeth Dsouza MD [address] [place] [address] PCP - General 02/13/12 documented as of this encounter
--- OUTSIDE RECORDS SUMMARY | 2023-12-04 21:46 | XMS_ITS | Encounter Summary ---
Author Organization [facility] Address [address] [place] [address] Care Team Providers Care Tobacco Sweeper Name Role Phone Elizabeth Dsouza MD Primary Care Provider [phone] Encounter Details Date Type Department Care Team (Late st Contact Info) Description 07/26/2022 13:45 EDT Phlebotomy Only [facility] 2 Phlebotomy [address] [place], [place] [id number] Exceptional Student Education Teacher, Acc Phlebotomy Lung nodule Social History Tobacco Use Types Packs/Day Years [...] Procedure Name Priority Date/Time Associated Diagnosis Comments COMPLETE BLOOD COUNT AND DIFFERENTIAL Routine 07/26/2022 14:08 EDT Lung nodule COMPREHENSIVE METABOLIC PANEL (CMP) Routine 07/26/2022 14:08 EDT Lung nodule documented in this encounter Results * (ABNORMAL) COMPLETE BLOOD COUNT AND DIFFERENTIAL (07/26/2022 14:08 EDT) WBC 6.58 4.00 - 12.40 K/cmm 07/26/2022 14:58 [facility] RBC 4.87 3.86 - 5.04 M/cmm 07/26/2022 14:58 [facility] Hemoglobin 15.3(H) 11.6 - 15.2 gm/dL 07/26/2022 14:58 [facility] HCT 46.2(H) 34.9 - 44.4 % 07/26/2022 14:58 [facility] MCV 95 81 - 98 fl 07/26/2022 14:58 [facility] MCH 31.4 26.7 - 33.3 pg 07/26/2022 14:58 [facility] MCHC 33.1 32.1 - 35.9 gm/dL 07/26/2022 14:58 [facility] RDW-CV 12.9 <14.7 % 07/26/2022 14:58 [facility] RDW-SD 44.9 <50.4 fl 07/26/2022 14:58 [facility] PLT 195 141 - 377 K/cmm 07/26/2022 14:58 [facility] MPV 10.7 9.5 - 12.7 fl 07/26/2022 14:58 [facility] % Neutrophils 69.4 % 07/26/2022 14:58 [facility] % Lymphocytes 21.9 % 07/26/2022 14:58 [facility] % Monocytes 6.1 % 07/26/2022 14:58 [facility] % Eosinophils 1.8 % 07/26/2022 14:58 [facility] % Basophils 0.6 % 07/26/2022 14:58 [facility] % Immature Grans 0.2 % 07/27/19 14:58 [facility] Absolute Neutrophils 4.57 2.20 - 8.85 K/cm 07/26/2022 14:58 T [facility] Absolute Lymphocytes 1.44 1.09 - 3.30 K/cm 07/26/2022 14:58 [facility] Absolute Monocytes 0.40 0.10 - 0.80 K/cm 07/26/2022 14:58 [facility] Absolute Eosinophils 0.12 0.03 - 0.61 K/cm 07/26/2022 14:58 [facility] ABS Basophils 0.04 0.01 - 0.11 K/cm 07/26/2022 14:58 [facility] Absolute Immature Grans 0.01 0.00 - 0.06 K/[facility] 07/26/2022 14:58 [facility] Type of Differential: Auto 07/26/2022 14:58 [facility] Blood VENOUS BLOOD / Unknown Venipuncture / Unknown 07/26/2022 14:08 EDT 07/26/2022 14:47 EDT Elizabeth Asencio NP PACKAGES & DNA PROBE ORDERABLES [facility] [address] [place] [address] * (ABNORMAL) COMPREHENSIVE METABOLIC PANEL (CMP) (07/26/2022 14:08 EDT) Sodium 143 136 - 145 mmol/L 07/26/2022 15:45 T [facility] Potassium 4.2 3.5 - 5.0 mmol/L 07/26/2022 15:45 [facility] Chloride 105 96 - 110 mmol/L 07/26/2022 15:45 [facility] CO2 Total 29 22 - 32 mmol/L 07/26/2022 15:45 [facility] Glucose 106(H) 70 - 100 mg/dl 07/26/2022 15:45 [facility] BUN 15 10 - 26 mg/dL 07/26/2022 15:45 [facility] Creatinine 1.41(H) 0.52 - 1.04 mg/dL 07/26/2022 15:45 [facility] eGFR 41(L) >60 mL/min/1.7 3m2 07/26/2022 15:45 [facility] Total Protein 6.9 6.3 - 8.2 g/dL 07/26/2022 15:45 [facility] Albumin 4.4 3.4 - 4.9 g/dL 07/26/2022 15:45 [facility] Alkaline Phosphatase 59 38 - 126 U/L 07/26/2022 15:45 [facility] AST 21 15 - 46 U/L 07/26/2022 15:45 [facility] ALT 20 <35 U/L 07/26/2022 15:45 [facility] Bilirubin, Total 1.0 <1.4 mg/dL 07/27/19 15:45 [facility] Calcium 10.0 8.5 - 10.5 mg/dL 07/26/2022 15:45 [facility] Albumin/Globulin Ratio 1.8 1.0 - 2.5 07/26/2022 15:45 [facility] Anion Gap 9 5 - 14 mmol/L 07/26/2022 15:45 [facility] Blood VENOUS BLOOD / Unknown Venipuncture / Unknown 07/26/2022 14:08 EDT 07/26/2022 14:57 EDT Elizabeth Asencio FREELANCE DESIGNER CHEMISTRY & BLOOD GA S ORDERABLES Performing Organization Address City/State/[facility] Co de Phone Number [facility] [address] [place] [address] documented in this encounter Visit Diagnoses Diagnosis Lung nodule Solitary pulmonary nodule documented in this encounter Care Teams Tobacco Sweeper Relationship Specialty Start Date End Date Elizabeth Dsouza MD [address] [place] [address] PCP - General 02/13/12 documented as of this encounter"
--- OUTSIDE RECORDS SUMMARY | 2023-12-04 21:46 | XMS_ITS | Encounter Summary ---
Author Organization [facility] Address [address] [place] [address] Care Team Providers Care Front Man Name Role Phone Elizabeth Dsouza MD Primary Care Provider [phone] Reason for Referral * Radiology Services (Routine/Next Available) - Receiving Office to Obtain Authorization Specialty Diagnoses / Procedures Referred By Contac t Referred To Contact Diagnoses Lung mass Procedures CT SECONDARY READ CHEST Elizabeth Asencio NP [address] [address] [facility] Referral ID Status Reason Start Date Expiration Date Visits Requested Visits Authorized [id number] Receiving Office to Obtain Authorization 07/26/2022 1 1 Reason for Visit * Radiology Services (Routine/Next Available) - Receiving Office to Obtain Authorization Specialty Diagnoses / Procedures Referred By Contac t Referred To Contact Diagnoses Lung mass Procedures CT SECONDARY READ CHEST Elizabeth Asencio NP [address] [address] [facility] Referral ID Status Reason Start Date Expiration Date Visits Requested Visits Authorized [id number] Receiving Office to Obtain Authorization 07/26/2022 1 1 Encounter Details Date Type Department Care Team (Latest Contact Info) Description 07/26/2022 10:19 EDT - 07/26/2022 13:09 EDT Hospital Encounter [facility] Radiology - [facility] [place] [address] [place] [id number] Lung mass Discharge Disposition: Home or Self Care Social [...] Name Priority Date/Time Associated Diagnosis Comments CT SUBSPECIALTY RADIOLOGY CONSULT CHEST Routine 07/26/2022 10:19 EDT Lung mass documented in this encounter Results * CT SECONDARY READ CHEST (07/26/2022 10:19 EDT) Anatomical Region Laterality Modality Computed Tomogra phy 07/29/2022 10:0 3 EDT Impressions 07/29/2022 10:03 EDT 1. ??Spiculated right upper lobe peripheral solid pulmonary nodule measuring 18 x 12 x 9 mm (3, 227), concerning for neoplasm (Lung-RADS 4B). 2. ??Other additional indeterminate small solid pulmonary nodules measuring up to 4 mm throughout both lungs. Attention on follow-up is advised. 3. ??Enlarged indeterminate left axillary and retropectoral lymph nodes. Attention on follow-up is advised. 4. ??Slightly mottled appearance of the osseous structures, indeterminate. No specific discrete suspicious osseous lesion. Narrative 07/29/2022 10:03 EDT 07/26/2022 11:00 AM Clinical History/Comments: confirm outside findings Technique: CT of the chest was performed at an outside institution on May 23, 2022. ??IV contrast material was not administered. Exam description: ??Lung cancer screening CT Comparison: FDG PET/CT July 26, 2022. CT-guided biopsy June 25, 2022 Chest radiograph August 18, 2017 Findings: Lower neck: No abnormalities. Mediastinum and frannie (non-vascular): No enlarged mediastinal or hilar lymph nodes. ??The esophagus appears normal. Cardiovascular: ??Atherosclerotic calcifications of the aorta and its branches. There is bulky calcification at the origin of the right brachiocephalic artery resulting mild luminal narrowing. There are severe coronary calcifications. Lungs and airways: ??There is diffuse bronchial thickening and centrilobular emphysema. There is a spiculated right upper lobe peripheral solid pulmonary nodule measuring 18 x 12 x 9 mm (3, 227). Other additional small solid pulmonary nodules measuring up to 4 mm throughout both lungs. Pleura: No pleural effusion. Upper abdomen (limited to upper abdomen, not optimized for abdominal imaging): No abnormalities. Bones and chest wall soft tissues: ??Slightly mottled appearance of the osseous structures, indeterminate. No specific discrete suspicious osseous lesion. Enlarged indeterminate left axillary and retropectoral lymph nodes. Procedure Note Jose Ocampo MD - 07/29/2022 07/26/2022 11:00 AM Clinical History/Comments: confirm outside findings Technique: CT of the chest was performed at an outside institution on May 23, 2022.IV contrast material was not administered. Exam description: Lung cancer screening CT Comparison: FDG PET/CT July 26, 2022. CT-guided biopsy June 25, 2022 Chest radiograph August 18, 2017 Findings: Lower neck: No abnormalities. Mediastinum and frannie (non-vascular): No enlarged mediastinal or hilarlymph nodes. The esophagus appears normal. Cardiovascular: Atherosclerotic calcifications of the aorta and itsbranches. There is bulky calcification at the origin of the rightbrachiocephalic artery resulting mild luminal narrowing. There are severecoronary calcifications. Lungs and airways: There is diffuse bronchial thickening andcentrilobular emphysema. There is a spiculated right upper lobe peripheralsolid pulmonary nodule measuring 18 x 12 x 9 mm (3, 227). Other additionalsmall solid pulmonary nodules measuring up to 4 mm throughout bothlungs. Pleura: No pleural effusion. Upper abdomen (limited to upper abdomen, not optimized for abdominalimaging): No abnormalities. Bones and chest wall soft tissues: Slightly mottled appearance of theosseous structures, indeterminate. No specific discrete suspicious osseouslesion. Enlarged indeterminate left axillary and retropectoral lymphnodes. IMPRESSION 1. Spiculated right upper lobe peripheral solid pulmonary nodulemeasuring 18 x 12 x 9 mm (3, 227), concerning for neoplasm (Lung-RADS 4B). 2. Other additional indeterminate small solid pulmonary nodules measuringup to 4 mm throughout both lungs. Attention on follow-up is advised. 3. Enlarged indeterminate left axillary and retropectoral lymph nodes.Attention on follow-up is advised. 4. Slightly mottled appearance of the osseous structures, indeterminate.No specific discrete suspicious osseous lesion. Elizabeth Asencio NP IMG CT ORDERABLES documented in this encounter Visit Diagnoses Diagnosis Lung mass Swelling, mass, or lump in chest documented in this encounter Care Teams Front Man Relationship Specialty Start Date End Date Elizabeth Dsouza MD [address] [place] [address] PCP - General 02/13/12 documented as of this encounter
--- OUTSIDE RECORDS SUMMARY | 2023-12-04 21:46 | XMS_ITS | Encounter Summary ---
Author Organization [facility] Address [address] [place] [address] Care Team Providers Care Ice Delivery Driver Name Role Phone Elizabeth Dsouza MD Primary Care Provider [phone] Reason for Visit * Reason Onset Date Comments Appointment Related 07/29/2022 Encounter Details Date Type Department Care Team (Late st Contact Info) Description 07/29/2022 Telephone [facility] Pulmonology & Critical Care - [address] [phone] Amilcar Damian MD MPH [address] [place] [address], [address] [place] [address] Appointment Related Social History Tobacco [...] encounter Miscellaneous Notes * Telephone Encounter - Raheel López Jr - 07/29/2022 1525 EDT Patient was called this past Friday with the arrival/start times for procedure. However some changes where made to the OR schedule on Friday so I called the patient with the new arrival/start times. Patient was okay with the change. IMPORTANT PROCEDURE PROTOCOLS - It is important that you have NOTHING TO EAT AFTER MIDNIGHT the night before the procedure. On the day of your procedure, you should have only water or clear liquids until 4 hours before the scheduled time of your procedure. Clear liquids include water, clear fruit juice, carbonated beverages, and black or sweetened coffee and tea (No Dairy). You should take your usual medicines by mouth with a small amount of water. - You will NEED TO BRING A STEEL POURER HELPER. Please make sure you have someone accompany you who will be ableto drive you home after the procedure. You will be unable to safely drive for 24 hours from the time of the procedure. - If you are taking Aspirin there is no need to stop taking it prior to the procedure. - If you are taking any BLOOD THINNERS (Plavix, Coumadin, Warfarin, etc.) please speak with your director television about this. Your appointment is on 07.30.2022 with a scheduled start time of 7:30AM and an arrival time of 5:30AM. Please check in at Registration on the 3rd floor of the [facility] building. You will then proceed to Surgery and Procedures located on the 3rd floor in the [facility] of the [facility] building. Please call Pulmonary at [phone] or the PFT Lab at [phone] if you have any concerns, questions or need clarification about any of the above instructions. Thank you. documented in this encounter Plan of Treatment Not on file documented as of this encounter Visit Diagnoses Not on filedocumented in this encounter Care Teams Ice Delivery Driver Relationship Specialty Start Date End Date Elizabeth Dsouza MD [address] [place] [phone] PCP - General 02/13/12 documented as of this encounter
--- OUTSIDE RECORDS SUMMARY | 2023-12-04 21:46 | XMS_ITS | Encounter Summary ---
Author Organization [facility] Address [address] [place] [address] Care Team Providers Care Military Administrative Technician Name Role Phone Elizabeth Dsouza MD Primary Care Provider [phone] Reason for Referral * Test (Routine/Next Available) - Authorization Not Required Specialty Diagnoses / Procedures [facility] Referred To Contact Diagnoses Lung nodule Procedures PULMONARY FUNCTION TESTING Amilcar Damian MD MPH [address] [facility] [address] [place] [address] Referral ID Status Reason Start Date Expiration Date Visits Requested Visits Authorized [id number] Authorization Not Required 07/26/2022 1 1 Encounter Details Date Type Department Care Team (Late st Contact Info) Description 07/26/[address] Orders [address] [facility] Pulmonology & Critical Care - [address] [phone] Audrey Mix RN Lung nodule (Primary Dx) Social History Tobacco [...] as of this encounter Plan of Treatment Scheduled Orders Name Type Priority Associated Diagnoses Orde r Schedule PULMONARY FUNCTION TESTING PFT Routine Lung nodule 1 Occurrences starting 07/26/2022 until 01/27/2024 documented as of this encounter Visit Diagnoses Diagnosis Lung nodule- Primary Solitary pulmonary nodule documented in this encounter Care Teams Military Administrative Technician Relationship Specialty Start Date End Date Elizabeth Dsouza MD [address] [place] [phone] PCP - General 02/13/12 documented as of this encounter
--- OUTSIDE RECORDS SUMMARY | 2023-12-04 21:46 | XMS_ITS | Encounter Summary ---
Author Organization [facility] Address [address] [place] [address] Care Team Providers Care Account Engineer Name Role Phone Elizabeth Dsouza MD Primary Care Provider [phone] Encounter Details Date Type Department Care Team (Late st Contact Info) Description 07/18/2022 Abstract [facility] Pulmonology & Critical Care - [facility] [address] [place], [place] [address] Elizabeth Dsouza MD [address] [place] [address] Social History Tobacco Use Types Packs/Day Years [...] on filedocumented in this encounter Care Teams Account Engineer Relationship Specialty Start Date End Date Elizabeth Dsouza MD [address] [place] [address] PCP - General 02/13/12 documented as of this encounter
--- OUTSIDE RECORDS SUMMARY | 2023-12-04 21:46 | XMS_ITS | Encounter Summary ---
Author Organization [facility] Address [address] [place] [address] Care Team Providers Care Cyber Forensic Specialist Name Role Phone Elizabeth Dsouza MD Primary Care Provider [phone] Reason for Referral * Radiology Services (Routine/Next Available) - Closed Specialty Diagnoses / Procedures Referred By Contac t Referred To Contact Nuclear Medicine Diagnoses Lung nodule Procedures PET CT EYE TO Amilcar Velazquez MD MPH [address] [address] [facility] Referral ID Status Reason Start Date Expiration Date Visits Re quested Visits Authorized [id number] Closed 07/19/2022 09/02/2022 1 1 Reason for Visit * Radiology Services (Routine/Next Available) - Closed Specialty Diagnoses / Procedures Referred By Loli rose Referred To Contact Nuclear Medicine Diagnoses Lung nodule Procedures PET CT EYE TO Amilcar Velazquez MD MPH [address] [address] [facility] Referral ID Status Reason Start Date Expiration Date Visits Re quested Visits Authorized [id number] Closed 07/19/2022 09/02/2022 1 1 Encounter Details Date Type Department Care Team (Latest Contact Info) Description 07/26/2022 8:24 EDT - 07/26/2022 10:18 EDT Hospital Encounter [facility] Radiology Nuclear Medicine and PET - [address] [address] Lung nodule Discharge Disposition: Home or Self [...] Procedure Name Priority Date/Time Associated Diagnosis Comments PET CT EYE TO THIGH Routine 07/26/2022 1 1:21 EDT Lung nodule POCT GLUCOSE, INTERFACED Routine 07/26/2022 9:05 EDT documented in this encounter Results * PET CT EYE [...] the IV injection of 8.24 mCi of [id number], 3D TOF PET imaging was obtained from the skull base to upper thighs using a [employer] digital ??PET/CT system. ??The blood glucose level [...] following the IV injection of 8.24 mCi [id number], 3D TOF PET imaging was obtained from the skullbase to upper thighs using a [employer] digital PET/CT system. Theblood glucose level prior [...] Damian MD MPH IMG NM ORD ERABLES * (ABNORMAL) POCT GLUCOSE, INTERFACED (07/26/2022 9:05 EDT) Glucose, POC 123(H) 70 - 100 mg/dL 07/26/2022 9:07 EDT [facility] HN LAB POC COMMENT (GLUCOSE) Test Performed by Nursing Services 07/26/2022 9:07 EDT [facility] Blood CAPILLARY BLOOD / Unknown 07/26/2022 9:05 EDT 07/26/2022 9:06 EDT Provider Unknown POINT OF CARE TEST O RDERABLES [facility] [address] [place] [address] documented in this encounter Visit Diagnoses Diagnosis Lung nodule Solitary pulmonary nodule documented in this encounter Administered Medications Inactive Administered Medications - up to 3 most recent administrations Medication Order MAR Action Action Date Dose Rate Site fludeoxyglucose (F-18) FDG injection 15 millicurie 15 millicurie, radiopharm IV, NOW X1, 1 dose, On Fri07/26/22 at 0945, Routine, Imaging Protocol Orders Given 07/26/2022 9:10 EDT 8.24 millicuries documented in this encounter Orders Medications Ordered That Leland ht Not Have Been Administered Count Last Ordered Date First Ordered Date fludeoxyglucose (F-18) FDG i njection 15 millicurie 1 07/26/2022 documented in this encounter Care Teams Cyber Forensic Specialist Relationship Specialty Start Date End Date Elizabeth Dsouza MD [address] [place] [phone] PCP - General 02/13/12 documented as of this encounter
--- OUTSIDE RECORDS SUMMARY | 2023-12-04 21:46 | XMS_ITS | Encounter Summary ---
Author Organization [facility] Address [address] [place] [address] Care Team Providers Care Advertising Project Manager Name Role Phone Elizabeth Dsouza MD Primary Care Provider [phone] Reason for Visit * Reason Onset Date Comments Patient Education 06/18/2022 Encounter Details Date Type Department Care Team (Late st Contact Info) Description 06/18/2022 Telephone [facility] Interventional Radiology - Main [address] [address] Idania Higgins, ABEL Patient Education Social History Tobacco Use Types Packs/Day Years [...] encounter Miscellaneous Notes * Telephone Encounter - Idania Higgins RN - 06/18/2022 1039 EDT Interventional Radiology Appt: RUL lung biopsy on 06/25/22 at 700 Phone call made to patient to review the following pre-procedure prep & information: unable to reach patient, left message requesting call back to [facility] RN line [phone] Check into registration (3rd floor) by 645 (even if you have pre registered) ??? Most of our procedures utilize some form of sedation. Having a pile driver to take you home is required. A bus or taxi is not allowed. It is preferable to have your pile driver accompany you to the appointment. If this is not possible, please bring your drivers contact information with you to the appointment. They need to be accessible by phone, please note the parking garage does not have consistent cell phone coverage. Current Visitor Policy: - Two people are permitted to escort a patient undergoing any procedure requiring sedation or general anesthesia. Patient is aware to call prior to the scheduled procedure if they develop cough, fever, sore throat,loss of taste or smell Pre Sedation Guidelines: ??? Have no Solid food or liquids containing fats(including milk)after midnight before the procedure ??? On the day of your procedure you may only have water, apple juice or sports drinks(Gatorade) until 2 hours before check in time ??? After 500, nothing by mouth, however you may take medications at any time with small sips of water Medications - take prescribed medications. You should take as needed pain meds as needed. Meds to hold: pt confirms they are not on any blood thinning medication ??? Do not take Ibuprofen ( Motrin, Advil) for 24 hours prior to the procedure or Aleve (Naproxen) for 2 days prior (with exception of cerebrals/fistulagrams/drain exchanges without interventions). ??? Full strength Aspirin should not be taken for 5 days prior to this procedure. If you are on a baby Aspirin , this is okay to continue. ( taking any of the above medications could cause a delay in your procedure) -Tylenol (acetaminophen) may be taken for pain. - Bring a list of current medications/allergy list -Shower night before or morning of procedure -Leave all valuables/medications at home (other than glasses/hearing aids).If patient uses a CPAP, they should bring it to the appt. pt verbalized understanding, all questions answered. [facility] RN phone number provided, should they have any further questions prior to this appointment. documented in this encounter Plan of Treatment Not on file documented as of this encounter Visit Diagnoses Not on filedocumented in this encounter Care Teams Advertising Project Manager Relationship Specialty Start Date End Date Elizabeth Dsouza MD [address] [place] [phone] PCP - General 02/13/12 documented as of this encounter
--- OUTSIDE RECORDS SUMMARY | 2023-12-04 21:46 | XMS_ITS | Encounter Summary ---
Author Organization [facility] Address [address] [place] [address] Care Team Providers Care Oxyacetylene Welder Name Role Phone Elizabeth Dsouza MD Primary Care Provider [phone] Reason for Visit * Reason Onset Date Comments Follow-up 07/23/2022 Encounter Details Date Type Department Care Team (Late st Contact Info) Description 07/23/2022 Telephone [facility] Pulmonology & Critical Care - [facility] [address] [place] [address] Audrey Mix, RN Follow-up Social History Tobacco Use Types Packs/Day Years [...] encounter Miscellaneous Notes * Telephone Encounter - Audrey Mix, RN - 07/23/2022 0711 EDT Called PCP office for medication reconciliation given patient previously decline current platel usebut today confirmed with pre-op she was taking. Confirmed she is taking 50mg daily of platel as prescribed by PCP office. Nurse Radha will confirm ok to hold for bronchoscopy with Dr. Dsouza. documented in this encounter Plan of Treatment Not on file documented as of this encounter Visit Diagnoses Not on filedocumented in this encounter Care Teams Oxyacetylene Welder Relationship Specialty Start Date End Date Elizabeth Dsouza MD [address] [place] [phone] PCP - General 02/13/12 documented as of this encounter
--- OUTSIDE RECORDS SUMMARY | 2023-12-04 21:46 | XMS_ITS | Encounter Summary ---
Author Organization [facility] Address [address] [place] [address] Care Team Providers Care Hatch Tender Name Role Phone Elizabeth Dsouza MD Primary Care Provider [phone] Encounter Details Date Type Department Care Team (Late st Contact Info) Description 07/26/2022 Telephone [facility] Pulmonology & Critical Care - [address] [phone] Amilcar Damian MD MPH [address] [facility], [address] [place] [address] Social History Tobacco Use Types [...] encounter Miscellaneous Notes * Telephone Encounter - Maynor Hutson - 07/26/2022 1713 EDT Bronchoscopy Patient Instructions After careful medical assessment, your doctor has recommended that you have a bronchoscopy for further evaluation and treatment. During bronchoscopy, a flexible fiber-optic tube the diameter of a pencil is passed through the nose or mouth and windpipe into the lungs. The purpose of this procedure is to examine air passages to identify any problems, and obtain tissue and fluid samples. Prior to the procedure, you will be asked to remove any eyeglasses and dentures. You may prefer to remove contact lenses at this time. You will be asked to sign a consent form authorizing the doctor to perform the procedure. Please let the doctor and nurse or respiratory therapist know if you are allergic to any medications. A needle for intravenous (IV) medication will be placed in your arm vein prior to the procedure. Medicine may be injected through this needle to make you sleepy and relaxed. The doctor, nurse or respiratory therapist will also numb your nasal passages and throat with a numbing medicine to aid in passage of the scope. Oxygen will be given to you by nasal prongs or mask and your blood pressure, respiration and heart rate will be monitored during the procedure. The doctor may choose to use fluoroscopy during the procedure. The room will be darkened and the X-ray equipment turned on for short periods of time. Please inform the doctor, nurse or respiratory therapist if there is a chance you may b e . The bronchoscope will be passed through your nostril or mouth. You may experience some coughing. The doctor will continue to numb the air passage during the procedure to reduce your cough reflex. Thedoctor may take samples of tissues or fluid through the bronchoscope using tiny instruments. Most people do not feel any discomfort or sensation when samples are taken. After the procedure, the doctor will discuss the findings with you and your family. You will receive written instructions to follow when you go home. IMPORTANT PROCEDURE PROTOCOLS - It is important that you have NOTHING TO EAT AFTER MIDNIGHT the night before the procedure. On the day of your procedure, you should have only water or other clear liquids until 4 hours before the scheduled time of your procedure. Clear liquids include water, clear fruit juice, carbonated beverages, and black or sweetened coffee and tea (No Milk). You should take your usual medicines by mouth with a small amount of water. - You will NEED TO BRING A EDI MANAGER. Please make sure you have someone accompany [...] Coumadin, Warfarin, etc.) please speak with your airplane cabin attendant about this. Your appointment date: 07/30/22 and time: 11:30 am arrival for a 1:30pm start. Please check in at Registration on the 3rd floor of the [facility] building. You will then proceed to Surgery and Procedures located on the 3rd floor in the [facility] of the [facility] building. Please call the PFT Lab at [phone] or the Pulmonary department at [phone] if you have any concerns, questions or need clarification about any of the above instructions. Thank you. documented in this encounter Plan of Treatment Not on file documented as of this encounter Visit Diagnoses Not on filedocumented in this encounter Care Teams Hatch Tender Relationship Specialty Start Date End Date Elizabeth Dsouza MD [address] [place] [phone] PCP - General 02/13/12 documented as of this encounter
--- OUTSIDE RECORDS SUMMARY | 2023-12-04 21:46 | XMS_ITS | Encounter Summary ---
Author Organization [facility] Address [address] [place] [address] Care Team Providers Care Assistant Statistician Name Role Phone Elizabeth Dsouza MD Primary Care Provider [phone] Reason for Referral * Consult (Routine/Next Available) - New Request Specialty Diagnoses / Procedures Referred By Loli rose Referred To Contact Hematology and Oncology Diagnoses Lung mass Elizabeth Asencio, SILVIA [address] [facility], [address] [place] [address] Referral ID Status Reason Start Date Expiration Date Visits Requested Visits Authorized [id number] New Request Specialty Services Required 07/18/2022 1 1 Question Answer Location [facility] Tumor Board Lung Working Stage TBD Additional Providers No Clinical Question? No Radiology Review Review Recent Radiology Are there studies that were perfomed outside of [facility] (even if performed at another network location) that need to be reviewed? No Please indicate which [facility] studies are to be reviewed. CT, Nuc Med Question to be answered: Discuss dz extent/staging for tx plan Pathology Review Review Recent Pathology Please indicate which slides are to be reviewed and add the pathology question recent lung biopsy Trial Options No Encounter Details Date Type Department Care Team (Late st Contact Info) Description 07/18/[address] [facility] Hematology & Oncology - [facility] [address] [place] [address] Doroteo Ibrahim RN Lung mass (Primary Dx) Social History Tobacco Use Types [...] of this encounter Plan of Treatment Scheduled Referrals Name Type Priority Associated Diagnoses Orde r Schedule AMB CONSULT/FOLLOW UP TUMOR BOARD Outpatient Referral Routine Lung mass Ordered: 07/18/2022 documented as of this encounter Visit Diagnoses Diagnosis Lung mass- Primary Swelling, mass, or lump in chest documented in this encounter Care Teams Assistant Statistician Relationship Specialty Start Date End Date Elizabeth Dsouza MD [address] [place] [phone] PCP - General 02/13/12 documented as of this encounter
--- OUTSIDE RECORDS SUMMARY | 2023-12-04 21:46 | XMS_ITS | Encounter Summary ---
Author Organization [facility] Address [address] [place] [address] Care Team Providers Care Ice Guard Tester Name Role Phone Elizabeth Dsouza MD Primary Care Provider [phone] Encounter Details Date Type Department Care Team (Late st Contact Info) Description 07/23/2022 Orders Only [facility] Pulmonology & Critical Care - [facility] [address], [place] [id number] Audrey Mix, RN Lung nodule (Primary Dx) Social History [...] documented as of this encounter Results * (ABNORMAL) COMPLETE BLOOD COUNT AND DIFFERENTIAL (07/26/2022 14:08 EDT) WBC 6.58 4.00 - 12.40 K/cmm 07/26/2022 14:58 EDT [facility] RBC 4.87 3.86 - 5.04 M/cmm 07/26/2022 14:58 [facility] Hemoglobin 15.3(H) 11.6 - 15.2 gm/dL 07/26/2022 14:58 [facility] HCT 46.2(H) 34.9 - 44.4 % 07/26/2022 14:58 [facility] MCV 95 81 - 98 fl 07/26/2022 14:58 [facility] MCH 31.4 26.7 - 33.3 pg 07/26/2022 14:58 [facility] MCHC 33.1 32.1 - 35.9 gm/dL 07/26/2022 14:58 [facility] RDW-CV 12.9 <14.7 % 07/26/2022 14:58 [facility] RDW-SD 44.9 <50.4 fl 07/26/2022 14:58 [facility] PLT 195 141 - 377 K/cmm 07/26/2022 14:58 [facility] MPV 10.7 9.5 - 12.7 fl 07/26/2022 14:58 [facility] % Neutrophils 69.4 % 07/26/2022 14:58 [facility] % Lymphocytes 21.9 % 07/26/2022 14:58 [facility] % Monocytes 6.1 % 07/26/2022 14:58 [facility] % Eosinophils 1.8 % 07/26/2022 14:58 [facility] % Basophils 0.6 % 07/26/2022 14:58 [facility] % Immature Grans 0.2 % 07/27/19 14:58 [facility] Absolute Neutrophils 4.57 2.20 - 8.85 K/cmm 07/26/2022 14:58 [facility] Absolute Lymphocytes 1.44 1.09 - 3.30 K/cmm 07/26/2022 14:58 [facility] Absolute Monocytes 0.40 0.10 - 0.80 K/cmm 07/26/2022 14:58 [facility] Absolute Eosinophils 0.12 0.03 - 0.61 K/cmm 07/26/2022 14:58 [facility] ABS Basophils 0.04 0.01 - 0.11 K/cm 07/26/2022 14:58 [facility] Absolute Immature Grans 0.01 0.00 - 0.06 K/cm 07/26/2022 14:58 [facility] Type of Differential: Auto 07/26/2022 14:58 [facility] Blood VENOUS BLOOD / Unknown Venipuncture / Unknown 07/26/2022 14:08 EDT 07/26/2022 14:47 EDT Elizabeth Asencio NP PACKAGES & DNA PROBE ORDERABLES Performing Organization Address City/State/[facility] Co de Phone Number [facility] [address] [place] [address] * (ABNORMAL) COMPREHENSIVE METABOLIC PANEL (CMP) (07/26/2022 14:08 EDT) Sodium 143 136 - 145 mmol/L 07/26/2022 15:45 [facility] Potassium 4.2 3.5 - 5.0 mmol/L 07/26/2022 15:45 [facility] Chloride 105 96 - 110 mmol/L 07/26/2022 15:45 [facility] CO2 Total 29 22 - 32 mmol/L 07/26/2022 15:45 [facility] Glucose 106(H) 70 - 100 mg/dl 07/26/2022 15:45 [facility] BUN 15 10 - 26 mg/dL 07/26/2022 15:45 [facility] Creatinine 1.41(H) 0.52 - 1.04 mg/dL 07/26/2022 15:45 [facility] eGFR 41(L) >60 mL/min/1.7 3m2 07/26/2022 15:45 [facility] Total Protein 6.9 6.3 - 8.2 g/dL 07/26/2022 15:45 [facility] Albumin 4.4 3.4 - 4.9 g/dL 07/26/2022 15:45 [facility] Alkaline Phosphatase 59 38 - 126 U/L 07/26/2022 15:45 [facility] AST 21 15 - 46 U/L 07/26/2022 15:45 [facility] ALT 20 <35 U/L 07/26/2022 15:45 [facility] Bilirubin, Total 1.0 <1.4 mg/dL 07/27/19 15:45 [facility] Calcium 10.0 8.5 - 10.5 mg/dL 07/26/2022 15:45 [facility] Albumin/Globulin Ratio 1.8 1.0 - 2.5 07/26/2022 15:45 [facility] Anion Gap 9 5 - 14 mmol/L 07/26/2022 15:45 [facility] Blood VENOUS BLOOD / Unknown Venipuncture / Unknown 07/26/2022 14:08 EDT 07/26/2022 14:57 EDT Elizabeth Asencio FLOUR DISTRIBUTOR CHEMISTRY & BLOOD GA S ORDERABLES Performing Organization Address City/State/[facility] Co de Phone Number [facility] [address] [place] [address] documented in this encounter Visit Diagnoses Diagnosis Lung nodule- Primary Solitary pulmonary nodule documented in this encounter Care Teams Ice Guard Tester Relationship Specialty Start Date End Date Elizabeth Dsouza MD [address] [place] [address] PCP - General 02/13/12 documented as of this encounter
--- OUTSIDE RECORDS SUMMARY | 2023-12-04 21:46 | XMS_ITS | Encounter Summary ---
Author Organization [facility] Address [address] [place] [address] Care Team Providers Care Metal Checker Name Role Phone Elizabeth Dsouza MD Primary Care Provider [phone] Reason for Visit * Reason Onset Date Comments Patient Education 06/18/2022 Encounter Details Date Type Department Care Team (Late st Contact Info) Description 06/18/2022 Telephone [facility] Interventional Radiology - Main [address] [address] Idania Higgins, ABEL Patient Education Social History [...] Encounter - Idania Higgins RN - 06/18/2022 1105 EDT Call back from patient to review prep for lung biopsy. See previous note for details documented in this encounter Plan of Treatment Not on file documented as of this encounter Visit Diagnoses Not on filedocumented in this encounter Care Teams Metal Checker Relationship Specialty Start Date End Date Elizabeth Dsouza MD [address] [place] [address] PCP - General 02/13/12 documented as of this encounter
--- OUTSIDE RECORDS SUMMARY | 2023-12-04 21:46 | XMS_ITS | Encounter Summary ---
Author Organization [facility] Address [address] [place] [address] Care Team Providers Care Vallez Filter Operator Name Role Phone Elizabeth Dsouza MD Primary Care Provider [phone] Reason for Referral * Radiology Services (Routine/Next Available) - Receiving Office to Obtain Authorization Specialty Diagnoses / Procedures Referred By Loli rose Referred To Contact Diagnoses Lung mass Procedures CT SECONDARY READ CHEST lEizabeth Asencio, RELOCATION COMMISSIONER [address] [facility], [facility] [address] [place] [address] [facility] Referral ID Status Reason Start Date Expiration Date Visits Requested Visits Authorized [id number] Receiving Office to Obtain Authorization 07/26/2022 1 1 Encounter Details Date Type Department Care Team (Late st Contact Info) Description 07/26/2022 Orders Only [facility] Hematology & Oncology - [address] [id number] Doroteo Ibrahim, ABEL Lung mass (Primary Dx) Social History Tobacco [...] as of this encounter Results * CT SECONDARY READ [...] in this encounter Visit Diagnoses Diagnosis Lung mass- Primary Swelling, mass, or lump in chest Lung mass Swelling, mass, or lump in chest documented in this encounter Care Teams Vallez Filter Operator Relationship Specialty Start Date End Date Elizabeth Dsouza MD [address] [place] [phone] PCP - General 02/13/12 documented as of this encounter
--- OUTSIDE RECORDS SUMMARY | 2023-12-04 21:46 | XMS_ITS | Encounter Summary ---
Author Organization [facility] Address [address] [place] [address] Care Team Providers Care Bacon Slicer Name Role Phone Elizabeth Dsouza MD Primary Care Provider Reason for Visit * (Routine/Next Available) - Receiving Office to Obtain Authorization Specialty Diagnoses / Procedures Referred By Loli rose Referred To Contact Procedures XR OUTSIDE IMAGES DEXA Imaging, External Referral ID Status Reason Start Date Expiration Date Visits Requested Visits Authorized [id number] Receiving Office to Obtain Authorization 2022 1 1 Encounter Details Date Type Department Care Team (Latest Contact Info) Description 05/22/2022 - 05/22/2022 23:59 EST Hospital Encounter [facility] Radiology - Main [place] [address] [place] [address] Discharge Disposition: Home or Self Care Social [...] Date/Time Associated Diagnosis Comments XR OUTSIDE IMAGES DEXA Routine 05/22/2022 16:10 EST documented in this encounter Results * XR OUTSIDE IMAGES DEXA (05/22/2022 16:10 EST) Elder TODD - 2022 16:10 EDT This is a non-reportable exam. External Imaging IMG OTHER IMAGING OR DERABLES MCKESSON documented in this encounter Visit Diagnoses Not on filedocumented in this encounter Care Teams Bacon Slicer Relationship Specialty Start Date End Date Elizabeth Dsouza MD [address] [place] [address] PCP - General 02/13/12 documented as of this encounter
--- OUTSIDE RECORDS SUMMARY | 2023-12-04 21:46 | XMS_ITS | Encounter Summary ---
Author Organization [facility] Address [address] [place] [address] Care Team Providers Care Professor Of Spanish Name Role Phone Elizabeth Dsouza MD Primary Care Provider [phone] Reason for Visit * Reason Onset Date Comments Follow-up 07/23/2022 Encounter Details Date Type Department Care Team (Late st Contact Info) Description 07/23/2022 Telephone [facility] Pulmonology & Critical Care - [facility] [address] [place] [address] Audrey Mix, RN Follow-up Social History Tobacco [...] Encounter - Audrey Mix, RN - 07/23/[address] Dsouza's office returned call and confirmed ok to hold Platel 5 days prior to procedure. Calledpatient to update. She verbalized understanding. Last dose will be tomorrow. Attempting to coordinate PFTs for same day as PET. documented in this encounter Plan of Treatment Not on file documented as of this encounter Visit Diagnoses Not on filedocumented in this encounter Care Teams Professor Of Spanish Relationship Specialty Start Date End Date Elizabeth Dsouza MD [address] [place] [phone] PCP - General 02/13/12 documented as of this encounter
--- OUTSIDE RECORDS SUMMARY | 2023-12-04 21:46 | XMS_ITS | Encounter Summary ---
Author Organization [facility] Address [address] [place] [address] Care Team Providers Care Butter Grader Name Role Phone Elizabeth Dsouza MD Primary Care Provider [phone] Encounter Details Date Type Department Care Team (Latest Contact Info) Description 06/25/2022 11:25 EDT - 06/25/2022 23:59 EDT Hospital Encounter [facility] Radiology [address] [address] Discharge Disposition: Home or Self Care Social [...] CHEST 1 VIEW Routine 06/25/2022 11:35 EDT documented in this encounter Results * [...] of the right costophrenic angle from the [id number]. The cardiomediastinal silhouette appears normal aside from [...] exclusionof the right costophrenic angle from the ueqjh-og-mnem. The cardiomediastinal silhouette appears normal aside from aorticcalcification. Visualized bones and superficial soft tissues are grossly unremarkable. IMPRESSION No evidence of pneumothorax status post right lung biopsy. Sohail Magana MD IMG DIAGNOSTIC IMAG ING ORDERABLES documented in this encounter Visit Diagnoses Not on filedocumented in this encounter Care Teams Butter Grader Relationship Specialty Start Date End Date Elizabeth Dsouza MD [address] [place] [address] PCP - General 02/13/12 documented as of this encounter
--- OUTSIDE RECORDS SUMMARY | 2023-12-04 21:46 | XMS_ITS | Encounter Summary ---
Author Organization [facility] Address [address] [place] [address] Care Team Providers Care Antique Furniture Reproducer Name Role Phone Elizabeth Dsouza MD Primary Care Provider [phone] Reason for Visit * (Routine/Next Available) - Receiving Office to Obtain Authorization Specialty Diagnoses / Procedures Referred By Loli rose Referred To Contact Procedures NM OUTSIDE IMAGES Imaging, External Referral ID Status Reason Start Date Expiration Date Visits Requested Visits Authorized [id number] Receiving Office to Obtain Authorization 2022 1 1 Encounter Details Date Type Department Care Team (Latest Contact Info) Description 06/06/2022 - 06/06/2022 23:59 EDT Hospital Encounter [facility] Secondary Reads [place] Discharge Disposition: Home [...] Procedure Name Priority Date/Time Associated Diagnosis Comments NM OUTSIDE IMAGES Routine 06/06/2022 16: 09 EDT documented in this encounter Results * NM OUTSIDE IMAGES (06/06/2022 16:09 EDT) Narrative 2022 16:09 EDT This is a non-reportable exam. External Imaging IMG OTHER IMAGING OR DERABLES documented in this encounter Visit Diagnoses Not on filedocumented in this encounter Care Teams Antique Furniture Reproducer Relationship Specialty Start Date End Date Elizabeth Dsouza MD [address] [place] [phone] PCP - General 02/13/12 documented as of this encounter
--- OUTSIDE RECORDS SUMMARY | 2023-12-04 21:46 | XMS_ITS | Encounter Summary ---
Author Organization [facility] Address [address] [place] [address] Care Team Providers Care Director Corporate Compliance Name Role Phone Elizabeth Dsouza MD Primary Care Provider [phone] Encounter Details Date Type Department Care Team (Late st Contact Info) Description 07/30/2022 7:25 EDT - 07/30/2022 10:20 EDT Surgery [facility] OR [address] [place], [place] [id number] Amilcar Damian MD MPH [address] [place] [address], [address] [place] [address] Robotic and navigational bronchoscopy with intraop CT for biopsies, possible washings, and endobronchial ultrasound-guided needle biopsies [[id number] (CPT??)] Surgery Details Date/Time Status Location OR Service Patient Class Case Cl ass Case Type Trauma Case? 07/30/22 0725 Posted [facility] OR [facility] 05 [facility] Outpatient Surgery H - Elective Panel 1 Procedure LRB Anes Op Region Wound Class Comments Robotic and navigational bronchoscopy with intraop CT for biopsies, possible washings, and endobronchial ultrasound-guided needle biopsies N/A General Chest N/A O arm Cytopathology 120 minutes Surgeon Surgeon Role Service Panel Elizabeth Asencio, DESPATCHING AND RECEIVING CLERK Assisting Pulmonary 1 Amilcar Damian MD MPH Primary Pulmonary 1 Quintin Joseph, DO Fellow Pulmonary 1 Special Needs O-Arm; [place] Robot; Dive board bed. documented in this encounter Social History Tobacco [...] Sign Reading Time Taken Comments Blood Pressure 147/129 07/30/2022 1015 EDT Pulse 67 07/30/2022 0653 EDT Temperature 36 ??C (96.8 ??F) 07/30/2022 0945 EDT Respiratory Rate 18 07/30/2022 1015 EDT Oxygen Saturation 97% 07/30/2022 1015 EDT Inhaled Oxygen Concentration - - Weight [...] By federal law, results are released to [employer]. at the same time they are released to your provider. Please call if any one of the following problems develop: *Increasing shortness of breath *Coughing up more than a tablespoon of blood at a time *Significant chest pain or discomfort *Temperature over 100.6 degrees F that occurs the day after the procedure or later Call the pulmonary office at [phone] between 8:30am-4:30pm. After 4:30pm the hospital operatorat [phone] and ask to have the pulmonary physician division road supervisor be paged. documented in this encounter Medications [...] Code Departure Means Destination Home or Self Snf documented in this encounter H&P Notes * [...] with Chantix. Using e-cigarettes. Lives alone in [place], [place]. Maintains home. Denies functional limitations; although notes exertion is limited by right-sided sciatic pain. Denies chest pain or pressure. No palpitations. No exertional dyspnea, although minimal ambulation attributed to lower extremity discomfort. Not regularly followed by cardiology; underwent PCI in 1995 for NSTEMI. No further cardiac events. 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 No occupational exposures to chemicals or fumes. Social History: Lives alone in [place], [place]. Multiple pets within the home; including cats, dogs, and parakeets. Denies issues with mold or mildew. Family History: No family history of lung cancer. 4 adult children are healthy. PMHx: HTN HLD CAD s/p PCI [1995] at [facility] Lower extremity pain PSHx: has a past [...] discussed with Dr. Damian. Juliocesar Limon MD [facility] Fellow Attestation statement: I performed or was [...] and EBUS-TBNA. SURGEON: Luis Damian MD MPH BUSINESS ADMINISTRATION INSTRUCTOR: Elizabeth Asencio NP (Please note, no qualified fellow was available assist in the procedure, thus Ms Asencio's presence was required as first leveler. She assisted in performing robotic navigational bronchoscopy [...] Luis Damian MD, MPH / CD Confirmation: [id number] Dictation ID: [id number] cc: documented in this encounter Plan of Treatment Not on file documented as of this encounter Procedures Procedure Name Priority Date/Time Associated Diagnosis Comments XR CHEST PORTABLE 1 VIEW Routine 07/30/2022 10:39 EDT FL C-ARM 0-1 HOUR Routine 07/30/2022 9:3 5 EDT XR CHEST 2 VIEWS Routine 07/30/2022 9:34 EDT NON ELEMENTARY ELL TEACHER/FNA CYTOLOGY Routine 07/30/2022 8:44 EDT BRONCHOSCOPY, WITH TRANSBRONCHIAL NEEDLE ASPIRATION BIOPSY 07/30/2022 7:39 EDT Lung nodule Special Needs O-Arm; [place] Robot; Dive board bed. documented in this [...] pneumothorax status post bronchoscopic biopsy. Elizabeth Asencio NP IMG DIAGNOSTIC IMAGI NG ORDERABLES * FL C-ARM 0-1 HOUR (07/30/2022 9:35 EDT) Narrative 07/30/2022 9:35 EDT This is a non-reportable exam. Amilcar Damian MD MPH IMG OTHER IMAGING ORDERABLES * XR CHEST 2 VIEWS (07/30/2022 9:34 EDT) Narrative 07/30/2022 9:34 EDT This is a non-reportable exam. Amilcar Damian MD MPH IMG DIAGNO STIC IMAGING ORDERABLES * NON ELEMENTARY ELL TEACHER/FNA CYTOLOGY (07/30/2022 8:44 EDT) Note to Patient The following pathology results have been interpreted by your pathologist and may be available to you before your health provider has had the opportunity to review them. Please allow time for your provider to receive these results and explore management options, if applicable. 07/31/2022 9:58 [facility] Final Diagnosis A. LUNG, RIGHT [...] cells present. - Lymphocytes present. 07/31/2022 9:58 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 The tumor cells are present individually without sheets of cells being identified. The cell block shows a rare cluster of dysplastic squamous cells. The patient's previous cytology specimen ([id number]) and biopsy specimen ([id number]) have been reviewed. Sales Clerk Food slides of this case were reviewed at the intradepartmental consultation conference. 07/31/2022 9:58 [facility] Attestation By the signature below, the attending physician certifies that they have personally conducted a gross and/or microscopic examination of the described specimens and rendered or confirmed the above diagnosis. 07/31/2022 9:58 [facility] at 0958 Rapid Diagnosis A. [...] Kenneth Lawrence; 07/29/2022; 9:00 AM 07/31/2022 9:58 [facility] Clinical History Lung nodule 07/31/2022 9:58 EDT [facility] Gross Description A. 12 fixed prepared slides, 1 air dried prepared slides, and 1 tube of RPMI for cell block processing were received. B. One vial of CytoLyt was received and processed by selective cellular enhancement technique. C. One vial of CytoLyt was received and processed by selective cellular enhancement technique. 07/31/2022 9:58 EDT [facility] Performing Lab [facility] 07/31/2022 9:58 EDT [facility] Scanned Images 07/31/2022 9:58 EDT [facility] Fine Needle Aspirate ENTIRE RIGHT [...] EDT Amilcar Damian MD MPH PATHOLOGY ORDERABLES [facility] [address] [place] [address] documented in this encounter Visit Diagnoses Diagnosis [...] 07/30/2022 documented in this encounter Care Teams Director Corporate Compliance Relationship Specialty Start Date End Date Elizabeth Dsouza MD [address] [facility] [place] [phone] PCP - General 02/13/12 documented as of this encounter
--- OUTSIDE RECORDS SUMMARY | 2023-12-04 21:46 | XMS_ITS | Encounter Summary ---
Author Organization [facility] Address [address] [place] [address] Care Team Providers Care Gate Keeper Name Role Phone Elizabeth Dsouza MD Primary Care Provider [phone] Reason for Referral * Test (Routine/Next Available) - Authorization Not Required Specialty Diagnoses / Procedures Referred By Contac t Referred To Contact Diagnoses Lung nodule Procedures PULMONARY FUNCTION TESTING Juliocesar Limon MD Referral ID Status Reason Start Date Expiration Date Visits Requested Visits Authorized [id number] Authorization Not Required 07/15/2022 1 1 Reason for Visit * Test (Routine/Next Available) - Authorization Not Required Specialty Diagnoses / Procedures Referred By Loli rose Referred To Contact Diagnoses Lung nodule Procedures PULMONARY FUNCTION TESTING Juliocesar Limon MD Referral ID Status Reason Start Date Expiration Date Visits Requested Visits Authorized [id number] Authorization Not Required 07/15/2022 1 1 Encounter Details Date Type Department Care Team (Latest Contact Info) Description 07/26/2022 13:10 EDT - 07/26/2022 23:59 EDT Hospital Encounter [facility] Pulmonary Function Lab - [facility] [address] [place] [address] Lung nodule Discharge Disposition: Home or Self [...] documented in this encounter Progress Notes * Helen Zhu PFT - 07/26/2022 1415 EDT Testing was performed and recorded in [employer]. See complete report in Procedures. documented in this encounter Plan of Treatment Not on file documented as of this encounter Procedures Procedure Name Priority Date/Time Associated Diagnosis Comments PULMONARY FUNCTION TESTING Routine 07/26/2022 14:15 EDT Lung nodule documented in this encounter Results * PULMONARY FUNCTION TESTING (07/26/2022 14:15 EDT) 07/26/2022 14:1 5 EDT Juliocesar Limon MD PFT ORDERABLES [facility] PFT documented in this encounter Visit Diagnoses Diagnosis Lung nodule Solitary pulmonary nodule documented in this encounter Administered Medications Inactive Administered Medications - up to 3 most recent administrations Medication Order MAR Action Action Date Dose Rate Site albuterol inhaler 360 mcg 360 mcg (4 Puff), inhalation, NOW X1, 1 dose, On Fri07/26/22 at 1515, Routine Given 07/26/2022 14:30 EDT 360 mcg documented in this encounter Orders Medications Ordered That Leland ht Not Have Been Administered Count Last Ordered Date First Ordered Date albuterol inhaler 360 mcg 1 07/26/2022 documented in this encounter Care Teams Gate Keeper Relationship Specialty Start Date End Date Elizabeth Dsouza MD [address] [place] [phone] PCP - General 02/13/12 documented as of this encounter
--- OUTSIDE RECORDS SUMMARY | 2023-12-04 21:46 | XMS_ITS | Encounter Summary ---
Author Organization [facility] Address [address] [place] [address] Care Team Providers Care Vessel Ordinary Seaman Name Role Phone Elizabeth Dsouza MD Primary Care Provider [phone] Reason for Visit * Reason Onset Date Comments Appointment Related 08/01/2022 Encounter Details Date Type Department Care Team (Late st Contact Info) Description 08/01/2022 Telephone [facility] Multidisciplinary Lung Clinic - [address] [id number] Belkis Holm MD [address] [place] [address], [address] [place] [address] Appointment Related Social History Tobacco [...] encounter Miscellaneous Notes * Telephone Encounter - Uma Portillo - 08/01/2022 1525 EDT Called and left message for patient to call to confirm the appointment for FridayAugust 05 at 2:00 for her breathing test and 3:[address] Holm. This is up on the 5th floor [facility] in the Medicine out patient clinic. documented in this encounter Plan of Treatment Not on file documented as of this encounter Visit Diagnoses Not on filedocumented in this encounter Care Teams Vessel Ordinary Seaman Relationship Specialty Start Date End Date Elizabeth Dsouza MD [address] [place] [phone] PCP - General 02/13/12 documented as of this encounter
--- OUTSIDE RECORDS SUMMARY | 2023-12-04 21:47 | XMS_ITS | Encounter Summary ---
Author Organization [facility] Address [address] [place] [address] Care Team Providers Care Community Health Navigator Name Role Phone Elizabeth Dsouza MD Primary Care Provider [phone] Encounter Details Date Type Department Care Team (Late st Contact Info) Description 09/05/2020 Lab Requisition [facility] Pathology & Laboratory Medicine - [facility] [address] [place] [address] Outr Resulting Lab, Provider Social History Tobacco Use Types Packs/Day Years Used Date Smoking Tobacco: Never Assessed Interpersonal Safety Answer Date Record ed Physically Hurt Never 10/17/2019 Verbally Threaten Not on file 10/17/2019 Sex and Gender Information Value Date Recorded Sex Assigned at Not on file Gender Identity Female 01/04/2021 7:40 EDT Sexual Orientation Not on file documented as of this encounter Plan of Treatment Not on file documented as of this encounter Procedures Procedure Name Priority Date/Time Associated Diagnosis Comments CELIAC DISEASE PANEL Routine 09/05/2020 10:00 EDT documented in this encounter Results * CELIAC DISEASE PANEL (09/05/2020 10:00 EDT) Tissue Transglutaminase Antibody IGA <1.2 <4.0 U/mL 09/06/2020 12:05 EDT [facility] Comment: A negative result may be due to IgA deficiency and does not rule out celiac disease. ? Negative: ??<4.0 U/mL ? Weak Positive: ??4.0 - 10.0 U/mL ? Positive: ??>10.0 U/mL Results were obtained with the [employer] QUANTA Lite R h-tTG IgA DIXON assay on the [employer] DSX. IgA 179 85 - 499 mg/dL 09/06/2020 12:05 EDT [facility] Celiac Disease Interpretation Negative Serology. Celiac disease unlikely. Approximately 10% of patients with celiac disease are seronegative. Patients who are already adhering to a gluten-free diet may also be seronegative. If celiac disease is highly clinically suspected, referral to gastroenterology for additional evaluation is recommended. 09/06/2020 12:05 EDT [facility] Blood VENOUS BLOOD / Unknown 09/05/2020 10:00 EDT 09/05/2020 21:34 EDT Provider Outr Resulting Lab IMMUNOLOGY A ND SEROLOGY ORDERABLES Performing Organization Address [facility]/State/[facility] Co de Phone Number [facility] [address] [place] [address] documented in this encounter Visit Diagnoses Not on filedocumented in this encounter Care Teams Community Health Navigator Relationship Specialty Start Date End Date Elizabeth Dsouza MD [address] [place] [phone] PCP - General 02/13/12 documented as of this encounter
--- OUTSIDE RECORDS SUMMARY | 2023-12-04 21:47 | XMS_ITS | Encounter Summary ---
Author Organization [facility] Address [address] [place] [address] Care Team Providers Care Clinical Practice Consultant Name Role Phone Elizabeth Dsouza MD Primary Care Provider [phone] Encounter Details Date Type Department Care Team (Late st Contact Info) Description 08/23/2017 Historical Results Only [facility] - Main [place] [id number] Ashu Arce MD [address] [place] [phone] Social History Tobacco Use Types Packs/Day Years Used Date Smoking Tobacco: Never Assessed Sex and Gender Information Value Date Recorded Sex Assigned at Not on file Gender Identity Female 01/04/2021 7:40 EDT Sexual Orientation Not on file documented as of this encounter Plan of Treatment Not on file documented as of this encounter Procedures Procedure Name Priority Date/Time Associated Diagnosis Comments COMPLETE BLOOD COUNT WITH DIFFERENTIAL (AUTO) Routine 08/23/2017 6:15 EDT documented in this encounter Results * (ABNORMAL) COMPLETE BLOOD COUNT WITH DIFFERENTIAL (AUTO) (08/23/2017 6:15 EDT) ABSOLUTE NEUTROPHIL COUN - [facility] 5.91 1.7 - 7.0 10e3/ul 08/23/2017 7:32 EDT [facility] BASO # - [facility] 0.03 0.0 - 0.3 10e3/uL 08/23/2017 7:32 [facility] % - [facility] 0 0 - 2 % 08/23/2017 7:32 [facility] EOS # - [facility] 0.13 0.05 - 0.5 10e3/uL 08/23/2017 7:32 [facility] EOS % - [facility] 2 0 - 5 % 08/23/2017 7:32 [facility] GRAN % - [facility] 75 40 - 80 % 08/23/2017 7:32 [facility] HEMATOCRIT - [facility] 32.0(L) 34.0 - 47.0 % 08/23/2017 7:32 [facility] HEMOGLOBIN - [facility] 9.2(L) 11.2 - 15.7 g/dl 08/23/2017 7:32 [facility] IG# - [facility] 0.05 0 - 0.07 10e3/uL 08/23/2017 7:32 [facility] IG% - [facility] 0.6 0 - 0.9 % 08/23/2017 7:32 [facility] LYMPH # - [facility] 0.98 0.9 - 2.9 10e3/uL 08/23/2017 7:32 [facility] LYMPH% - [facility] 13(L) 20 - 40 % 08/23/2017 7:32 [facility] MEAN CORPUSCULAR HGB - [facility] 20.5(L) 26 - 34 pg 08/23/2017 7:32 [facility] MEAN CORPUSCULAR HGB CONC - [facility] 28.8(L) 31 - 36 g/dL 08/23/2017 7:32 [facility] MEAN CELL VOLUME - [facility] 71.3(L) 77 - 100 fl 08/23/2017 7:32 [facility] MONO # - [facility] 0.77 0.3 - 0.9 10e3/uL 08/23/2017 7:32 [facility] MONO% - [facility] 10 0 - 12 % 08/23/2017 7:32 [facility] PLATELET COUNT 189 150 - 400 10e3/ul 08/23/2017 7:32 EDT [facility] RED BLOOD COUNT - [facility] 4.49 3.8 - 5.2 10e6/ul 08/23/2017 7:32 EDT [facility] RED CELL DISTRI WIDTH - [facility] 18.5(H) 11.8 - 15.6 % 08/23/2017 7:32 EDT [facility] WHITE BLOOD COUNT - [facility] 7.9 3.5 - 10.5 10e3/ul 08/23/2017 7:32 EDT [facility] 08/23/2017 6:15 EDT 08/23/2017 6:55 EDT Ashu Arce MD HEMATOLOGY & PF4 O RDERABLES [facility] documented in this encounter Visit Diagnoses Not on filedocumented in this encounter Care Teams Clinical Practice Consultant Relationship Specialty Start Date End Date Elizabeth Dsouza MD [address] [place] [phone] PCP - General 02/13/12 documented as of this encounter
--- OUTSIDE RECORDS SUMMARY | 2023-12-04 21:47 | XMS_ITS | Encounter Summary ---
Author Organization [facility] Address [address] [place] [address] Care Team Providers Care Public Works Inspector Name Role Phone Elizabeth sDouza MD Primary Care Provider Reason for Visit * Reason Comments Abnormal Lab Patient presents [facility] for abnormal labs. Patietn states they're iron levels are low. C/o fatigue and shortness of breathe x 2 weeks. Shortness of Breath Encounter Details Date Type Department Care Team (Late st Contact Info) Description 12/28/2021 16:56 EDT - 12/28/2021 23:00 EDT Emergency [facility] Emergency Department [address] [place] [address] Jeancarlos Conklin MD [address] [place] [address] Iron deficiency anemia, unspecified iron deficiency anemia type (Primary Dx); Hypokalemia Discharge Disposition: Home or Self Care Social [...] 7:40 EDT Sexual Orientation Not on file COVID-19 Exposure Response Date Recorded In the last 10 days, have yo u been in contact with someone who was confirmed or suspected to have Coronavirus/COVID-19? No / Unsure 12/28/2021 16:51 EDT documented as of this encounter Last Filed Vital Signs Vital Sign Reading Time Taken Comments Blood Pressure 146/64 12/28/20212200 EDT Pulse 72 12/28/20212150 EDT Temperature 36.4 ??C (97.5 ??F) 12/28/20212006 EDT Respiratory Rate 16 12/28/20212150 EDT Oxygen Saturation 98% 12/28/20212150 EDT Inhaled Oxygen Concentration - - Weight 78.9 kg (174 lb) 12/28/20211648 EDT Height 157.5 cm (5' 2) 12/28/20211648 EDT Body Mass Index 31.83 12/28/20211648 EDT documented in this encounter Functional Status Functional Status Response Date of Assess ment Are you deaf or do you have serious difficulty h earing? No 12/28/2021 documented as of this encounter Discharge Instructions * Discharge Instructions* Jeancarlos Conklin MD - 12/28/2021 22:53 EDT Please follow-up with your primary care provider on Friday for repeat labs to recheck your potassium. Additionally, please follow-up regarding your leg pain. Please take the potassium as prescribed. If you have worsening symptoms such as lightheadedness, dizziness, fainting, shortness of breath, please return to the emergency department. * Attachments The following attachments cannot be sent through Care Everywhere. * Hypokalemia (Russian) * Anemia: Iron Deficiency (Russian) documented in this encounter Medications at Time [...] 5 minutes as needed for Chest Pain. pregabalin (LYRICA) 50 mg capsule Take 1 [...] mg by mouth. Bedtime empty stomache 07/23/2022 potassium chloride SA (K-DUR) 20 mEq tablet Take 1 Tablet by mouth daily for 3 days. 3 Tablet 12/28/2021 12/31/2021 pyridoxine, vitamin B6, (VITAMIN B6) 50 mg tablet Take 1 Tablet by mouth daily. Please call the neurology office for further instructions. 90 Tablet 1 01/23/2021 07/23/2022 documented as of this encounter Ordered Prescriptions Prescription Sig Dispensed Refills Start Date End Da te potassium chloride SA (K-DUR) 20 mEq tablet Take 1 Tablet by mouth daily for 3 days. 3 Tablet 12/28/2021 12/31/2021 potassium chloride SA (K-DUR) 20 mEq tablet Take 1 Tablet by mouth daily for 3 days. 3 Tablet 12/28/2021 12/28/2021 documented in this encounter Discharge Disposition Disposition Code Departure Means Destination Home or Self Long-Term documented in this encounter ED Notes * Jeancarlos Conklin MD - 12/28/2021 2372 EDT Emergency Department Visit Assessment and ED Course 66-year-old with a history of chronic anemia, gets iron infusions, also hypokalemia, not on potassium supplementation, presents the emergency department with weakness and known anemia. She states shehas been feeling unwell for the last week or 2. Her symptoms are gradually worsening. Fatigue. Slight shortness of breath worse when she wakes up improved through the day. Not associated with exertion. She does have bilateral leg pain that is been worse with exertion improved with rest. She denies fevers, chills, nausea, vomiting. She had 1 black bowel movement today. On exam she is awake, alert, oriented, pale. Nontender abdomen. Clear lungs, regular heart. Normal distal pulses. Relevant Data as of Dec 28 2256FriDec 28, 2021 1827 Normal sinus rhythm at 77, nonspecific ST-T abnormality. QTc 452 EKG 12 lead [DM] Relevant Data User Index [DM] Jeancarlos Conklin MD Labs with anemia, hypokalemia patient consented for blood transfusion. 1 unit of blood given. 40 potassium given. Slightly question the initial CMP. It shows a creatinine of 1.04 which is significantly improved from a creatinine that she had 2 days prior of 1.5. Not sure how that could have happened. Repeat labsthe creatinine of 1.47 and a potassium of 4.1 after treatment with 40 mEq of oral potassium. Patient to follow-up PCP on Friday for repeat labs. Return precautions discussed. I did discharge the patient with a small amount potassium and she was insistent on leaving prior to discharge. I think that potassium at prescribed care will be safe for the next couple of days. She states she has been hypokalemic multiple times in the past. Not sure which potassium value is most accurate. Final diagnoses: Iron deficiency anemia, unspecified iron deficiency anemia type Hypokalemia Disposition: Discharged Chief complaint: weakness HPI Melodie Clifford is a 66-year-old with a history of chronic anemia, gets iron infusions, also hypokalemia, not on potassium supplementation, presents the emergency department with weakness and known anemia. She states she has been feeling unwell for the last week or 2. Her symptoms are gradually worsening. Fatigue. Slight shortness of breath worse when she wakes up improved through the day. Not associated with exertion. She does have bilateral leg pain that is been worse with exertion improved with rest. She denies fevers, chills, nausea, vomiting. She had 1 black bowel movement today. History was provided by: patient Patient's pertinent PMH, FH, SH were reviewed and edited as necessary. ROS A 10-point review of systems was performed. The patient answered negative to all questions with theexceptions of those explicitly detailed as positives in the HPI. Pertinent negatives are also explicitly stated. Physical Exam BP (!) 146/64 Pulse 72 Temp 36.4 ??C (97.5 ??F) (Tympanic) Resp 16 Ht 157.5 cm (62) Wt 78.9 kg (174 lb) SpO2 98% BMI 31.83 kg/m?? A medical screening exam was performed. Physical Exam Vitals and nursing note reviewed. Constitutional: General: She is not in acute distress. Appearance: She is well-developed and well-nourished. She is not diaphoretic. Eyes: General: No scleral icterus. Right eye: No discharge. Left eye: No discharge. Conjunctiva/sclera: Conjunctivae normal. Cardiovascular: Rate and Rhythm: Normal rate and regular rhythm. Pulmonary: Effort: Pulmonary effort is normal. No respiratory distress. Breath sounds: Normal breath sounds. No stridor. Abdominal: Palpations: Abdomen is soft. Tenderness: There is abdominal tenderness. Musculoskeletal: General: Normal range of motion. Cervical back: Normal range of motion and neck supple. Skin: General: Skin is warm and dry. Coloration: Skin is pale. Neurological: Mental Status: She is alert and oriented to person, place, and time. Psychiatric: Mood and Affect: Mood and affect normal. Behavior: Behavior normal. Thought Content: Thought content normal. Judgment: Judgment normal. An EKG was obtained and independently interpreted. Laboratory data was reviewed and independently interpreted. Procedures Procedures * Lucy Leon RN - 12/28/2021 2114 EDT PT receiving blood at this time with family at bedside. PT states feeling normal. Warm pack givenfor cold hands and ranger utilized for blood * Kelli Santos - 12/28/2021 1821 EDT 12 Lead EKG Performed by Kelli Zelaya and shown to Jeancarlos Conklin MD. * Lucy Leon RN - 12/28/2021 1801 EDT Lucy Slater RN, notified Dr. Conklin of a Potassium 2.5 on 12/28/2021 at 1802. * Lucy Leon RN - 12/28/2021 1740 EDT Lucy Slater RN, notified Dr. Conklin of Critical Hemoglobin values 6.7 on 12/28/2021 at 1740. documented in this encounter Plan of Treatment Not on file documented as of this encounter Procedures Procedure Name Priority Date/Time Associated Diagnosis Comments ECG REPORT - SCANNED 12/31/2021 6:52 EDT BASIC METABOLIC PANEL (BMP) STAT 12/28/2021 22:26 EDT PREPARE RED BLOOD CELLS STAT 12/28/2021 18:39 EDT EKG 12-LEAD STAT 12/28/2021 18:18 EDT COMPLETE BLOOD COUNT AND DIFFERENTIAL STAT 12/28/2021 17:20 EDT ANTIBODY SCREEN Today 12/28/2021 17:20 EDT TYPE AND SCREEN STAT 12/28/2021 17:20 EDT MAGNESIUM STAT 12/28/2021 17:20 EDT COMPREHENSIVE METABOLIC PANEL (CMP) STAT 12/28/2021 17:20 EDT documented in this encounter Results * ECG REPORT - SCANNED (12/31/2021 6:52 EDT) 12/31/2021 6:52 EDT Scan 2 Pairer PROCEDURE/MINOR PHILIPPE GICAL ORDERABLES * TRANSFUSE RED BLOOD CELLS (12/28/2021 22:50 EDT) Blood Jeancarlos Conklin MD NURSING TREATMENT - BLOOD ADMINISTRATION * (ABNORMAL) BASIC METABOLIC PANEL (BMP) (12/28/2021 22:26 EDT) Pathologist [facility] Sodium 142 136 - 145 mmol/L 12/28/2021 23:19 [facility] Potassium 4.1 3.5 - 5.0 mmol/L 12/28/2021 23:19 [facility] Chloride 115(H) 96 - 110 mmol/L 12/28/2021 23:19 [facility] CO2 Total 23 22 - 32 mmol/L 12/28/2021 23:19 [facility] Anion Gap 4(L) 5 - 14 12/28/2021 23:19 [facility] Glucose 99 70 - 100 mg/dL 12/28/2021 23:19 [facility] Calcium 9.1 8.5 - 10.5 mg/dL 12/28/2021 23:19 [facility] BUN 10 10 - 26 mg/dL 12/28/2021 23:19 [facility] Creatinine 1.47(H) 0.52 - 1.04 mg/dL 12/28/2021 23:19 [facility] eGFR 39(L) >60 mL/min/1.73 m2 12/28/2021 23:19 [facility] Blood VENOUS BLOOD / Unknown Venipuncture / Unknown 12/28/2021 22:26 EDT 12/28/2021 22:28 EDT Jeancarlos Conklin MD CHEMISTRY & BLOOD G ORDERABLES [facility] [address] [place] [address] * PREPARE RED BLOOD CELLS (12/28/2021 18:39 EDT) Pathologist [facility] Product Code [id number] [facility] Donor Number [id number] [facility] [place] [facility] ABO A [facility] Rh NEG [facility] Status PT^Presumed Transfuse [facility] Product Expiration Date [facility] Blood Type Code 0600 [facility] Volume 285 [facility] Coding System [id number] [facility] [place] [facility] Blood 12/28/2021 18:3 9 EDT Jeancarlos Conklin MD BLOOD BANK ORDERABL ES [facility] [address] [place] [address] * EKG 12-LEAD (12/28/2021 18:18 EDT) 12/28/2021 18:1 8 EDT Narrative [facility] - 12/28/2021 20:18 EDT ? [facility] ? Test Date: ?2021-12-28 Pat Name: ? MELODIECAIN CLIFFORD ? Department: ? Room: ? A03 Gender: ? Female ? Housekeeper Hospital: ?? DT : ?1955 ? Requested By: ABDIRIZAK MARIANO Order Number: [id number] ? Reading : ?? REGINO FLYNN MD ? Measurements Intervals ?[place] ? Rate: ? 77 ? P: ?77 [place]: ? 130 ?QRS: ?52 QRSD: ? 82 ? T: ?78 QT: ? 400 ? QTc: ?452 ? Interpretive Statements Sinus rhythm with occasional premature ventricular complexes Nonspecific ST and T wave abnormality Compared to ECG 08/19/2017 07:45:42 Ventricular premature complex(es) now present ST (T wave) deviation now present I reviewed the tracing and have either agreed or edited the findings in this report. Electronically Signed On 12-28-2021 20:18:15 EDT by REGINO FLYNN MD. Procedure Note Regino Flynn MD - 12/28/2021 [facility] Test Date: 2021-12-28 Pat Name: MELODIE CLIFFORD Department: Room: 3 Gender: Female Housekeeper Hospital: [facility] : 1955 Requested By: ABDIRIZAK MARIANO Order Number: [id number] Reading MD: REGINO FLYNN MD Measurements Intervals [place] Rate: 77 P: 77 [place]: 130 QRS: 52 QRSD: 82 T: 78 QT: 400 QTc: 452 Interpretive Statements Sinus rhythm with occasional premature ventricular complexes Nonspecific ST and T wave abnormality Compared to ECG 08/19/2017 07:45:42 Ventricular premature complex(es) now present ST (T wave) deviation now present I reviewed the tracing and have either agreed or edited the findings inthis report. Electronically Signed On 12-28-2021 20:18:15 EDT by LORA JOHNSON. Jeancarlos Conklin MD CARDIAC ECG ORDERAB LES Performing Organization Address [facility] Co de Phone Number [facility] * ANTIBODY SCREEN (12/28/2021 17:20 EDT) Antibody Screen Negative 12/28/2021 19:[address] [facility] Specimen Expires: 12/31/2021 @ 23:59 12/28/2021 19:[address] [facility] Blood VENOUS BLOOD / Unknown Venipuncture / Unknown 12/28/2021 17:20 EDT 12/28/2021 17:48 EDT Jeancarlos Conklin MD BLOOD BANK TESTS Performing Organization Address [facility] Co de Phone Number [facility] [address] [place] [address] * MAGNESIUM (12/28/2021 17:20 EDT) Magnesium 1.8 1.7 - 2.8 mg/dL 12/28/2021 17:44 EDT [facility] Blood VENOUS BLOOD / Unknown Venipuncture / Unknown 12/28/2021 17:20 EDT 12/28/2021 17:21 EDT Jeancarlos Conklin MD CHEMISTRY & BLOOD G ORDERABLES [facility] [address] [place] [address] * TYPE AND SCREEN (12/28/2021 17:20 EDT) Pathologist [facility] ABO A 12/28/2021 19:03 [facility] Rh Factor Negative 12/28/2021 19:03 [facility] Antibody Screen Positive 12/28/2021 19:03 [facility] Specimen Expires: 12/31/2021 @ 23:59 12/28/2021 19:03 [facility] Blood VENOUS BLOOD / Unknown Venipuncture / Unknown 12/28/2021 17:20 EDT 12/28/2021 17:48 EDT Jeancarlos Conklin MD BLOOD BANK TESTS [facility] [address] [place] [address] * (ABNORMAL) COMPREHENSIVE METABOLIC PANEL (CMP) (12/28/2021 17:20 EDT) Pathologist [facility] Sodium 144 136 - 145 mmol/L 12/28/2021 18:01 [facility] Potassium 2.5(LL) 3.5 - 5.0 mmol/L 12/28/2021 18:01 [facility] Chloride 121(H) 96 - 110 mmol/L 12/28/2021 18:01 [facility] CO2 Total 19(L) 22 - 32 mmol/L 12/28/2021 18:01 [facility] Glucose 75 70 - 100 mg/dL 12/28/2021 18:01 [facility] BUN 8(L) 10 - 26 mg/dL 12/28/2021 18:01 [facility] Creatinine 1.04 0.52 - 1.04 mg/dL 12/28/2021 18:01 [facility] eGFR 60(L) >60 mL/min/1.7 3m2 12/28/2021 18:01 [facility] Total Protein 5.3(L) 6.3 - 8.2 g/dL 12/28/2021 18:01 EDT [facility] Albumin 2.9(L) 3.4 - 4.9 g/dL 12/28/2021 18:01 [facility] Alkaline Phosphatase 44 38 - 126 U/L 12/28/2021 18:01 [facility] AST 16 15 - 46 U/L 12/28/2021 18:01 [facility] ALT 14 <35 U/L 12/28/2021 18:01 [facility] Bilirubin, Total 0.6 <1.4 mg/dL 12/29/19 18:01 [facility] Calcium 6.7(L) 8.5 - 10.5 mg/dL 12/28/2021 18:01 [facility] Albumin/Globulin Ratio 1.2 1.0 - 2.5 12/28/2021 18:01 [facility] Anion Gap 4(L) 5 - 14 12/28/2021 18:01 [facility] Blood VENOUS BLOOD / Unknown Venipuncture / Unknown 12/28/2021 17:20 EDT 12/28/2021 17:21 EDT Jeancarlos Conklin MD CHEMISTRY & BLOOD G ORDERABLES Performing Organization Address City/State/[facility] Co de Phone Number [facility] [address] [place] [address] * (ABNORMAL) COMPLETE BLOOD COUNT AND DIFFERENTIAL (12/28/2021 17:20 EDT) WBC 5.11 4.00 - 12.40 K/cmm 12/28/2021 17:40 EDT [facility] RBC 3.02(L) 3.86 - 5.04 M/cmm 12/28/2021 17:40 [facility] Hemoglobin 6.7(LL) 11.6 - 15.2 gm/dL 12/28/2021 17:40 [facility] HCT 24.2(L) 34.9 - 44.4 % 12/28/2021 17:40 [facility] MCV 80(L) 81 - 98 fl 12/28/2021 17:40 [facility] MCH 22.2(L) 26.7 - 33.3 pg 12/28/2021 17:40 [facility] Hypochromia 2+ 12/28/2021 17:40 [facility] MCHC 27.7(L) 32.1 - 35.9 gm/dL 12/28/2021 17:40 [facility] RDW-CV 17.5(H) <14.7 % 12/28/2021 17:40 [facility] RDW-SD 51.3(H) <50.4 fl 12/28/2021 17:40 [facility] Anisocytosis 1+ 12/28/2021 17:40 [facility] PLT 173 141 - 377 K/cmm 12/28/2021 17:40 [facility] MPV 10.8 9.5 - 12.7 fl 12/28/2021 17:40 [facility] % Neutrophils 71.0 % 12/28/2021 17:40 [facility] % Lymphocytes 19.0 % 12/28/2021 17:40 [facility] % Monocytes 5.5 % 12/28/2021 17:40 [facility] % Eosinophils 3.5 % 12/28/2021 17:40 [facility] % Basophils 0.6 % 12/28/2021 17:40 [facility] % Immature Grans 0.4 % 12/29/19 17:40 [facility] Absolute Neutrophils 3.63 2.20 - 8.85 K/cmm 12/28/2021 17:40 [facility] Absolute Lymphocytes 0.97(L) 1.09 - 3.30 K/cmm 12/28/2021 17:40 [facility] Absolute Monocytes 0.28 0.10 - 0.80 K/cmm 12/28/2021 17:40 EDT [facility] Absolute Eosinophils 0.18 0.03 - 0.61 K/cmm 12/28/2021 17:40 EDT [facility] ABS Basophils 0.03 0.01 - 0.11 K/cmm 12/28/2021 17:40 EDT [facility] Absolute Immature Grans 0.02 0.00 - 0.06 K/cmm 12/28/2021 17:40 EDT [facility] Type of Differential: Auto 12/28/2021 17:40 EDT [facility] Blood VENOUS BLOOD / Unknown Venipuncture / Unknown 12/28/2021 17:20 EDT 12/28/2021 17:21 EDT Jeancarlos Conklin MD PACKAGES & DNA PROB E ORDERABLES Performing Organization Address City/State/[facility] Co de Phone Number [facility] [address] [place] [address] documented in this encounter Visit Diagnoses Diagnosis Iron deficiency anemia, unspecified iron deficiency anemia type- Primary Hypokalemia Hypopotassemia documented in this encounter Administered Medications Inactive Administered Medications - up to 3 most recent administrations Medication Order MAR Action Action Date Dose Rate Site potassium chloride (KAYCIEL) 20 mEq/15 mL oral solution 40 mEq 40 mEq, oral, DAILY, First dose on Fri12/28/21 at 1900, Until Discontinued, Routine Given 12/28/2021 18:52 EDT 40 mEq documented in this encounter Discontinued Medications Medication Sig Discontinue Reason Start Date End Da te potassium chloride SA (K-DUR) 20 mEq tablet Take 1 Tablet by mouth daily for 3 days. Reorder 12/28/2021 12/28/2021 documented as of this encounter Historical Medications * This list may reflect changes made after this encounter. Medication Sig Dispensed Refills Start Date End Date nitroglycerin (NITROSTAT) 0.[address] 1 Tablet under the tongue every 5 minutes as needed for Chest Pain. losartan (COZAAR) 25 mg tablet Take 1 Tablet by mouth daily. albuterol 90 mcg/actuation inhaler Inhale 2 Puffs as directed every 4 hours as needed for Wheezing. aspirin chewable 81 mg tablet Take 1 Tablet by mouth daily. rosuvastatin (CRESTOR) 10 mg tablet Take 4 Tablets by mouth daily. tiotropium (SPIRIVA) 18 mcg inhalation capsule Inhale 1 Capsule as directed daily. cilostazoL (PLETAL) 100 mg tablet Take 1 Tablet by mouth daily. famotidine (PEPCID) 20 mg tablet Take 1 Tablet by mouth every morning. traZODone (DESYREL) 50 mg tablet Take 3 Tablets by mouth at bedtime. pregabalin (LYRICA) 50 mg capsule Take 1 Capsule by mouth 2 times daily. ferrous sulfate 324 mg (65 mg iron) tablet,delayed release (DR/EC) Take 324 mg by mouth. Bedtime empty stomache 07/23/2022 added in this encounter Active and Recently Administered Medications Times are shown in EDT. Scheduled Medication Order 12/26/2021 12/27/2021 12/28/2021 potassium chloride (KAYCIEL) 20 mEq/15 mL oral solution 40 mEq 40 mEq, oral, DAILY, First dose on Fri12/28/21 at 1900, Until Discontinued, Routine 1852 (Given - Provid er: Lucy Leon RN) documented in this encounter Orders Nursing Count Last Ordered Date First Orde red Date CALL BLOOD BANK ([facility] 2200) TIER 1 ORDERS ARE PLACED 1 12/28/2021 documented in this encounter Care Teams Public Works Inspector Relationship Specialty Start Date End Date Elizabeth Dsouza MD [address] [facility] [place] [id number] PCP - General 02/13/12 documented as of this encounter
--- OUTSIDE RECORDS SUMMARY | 2023-12-04 21:47 | XMS_ITS | Encounter Summary ---
Author Organization [facility] Address [address] [place] [address] Care Team Providers Care Oil Field Equipment Mechanic Supervisor Name Role Phone Elizabeth Dsouza MD Primary Care Provider [phone] Encounter Details Date Type Department Care Team (Late st Contact Info) Description 08/24/2017 Historical Results Only [facility] - [address] [id number] Unknown, Provider, Social History Tobacco Use Types Packs/Day Years Used Date Smoking Tobacco: Never Assessed Sex and Gender Information Value Date Recorded Sex Assigned at Not on file Gender Identity Female 01/04/2021 7:40 EDT Sexual Orientation Not on file documented as of this encounter Plan of Treatment Not on file documented as of this encounter Procedures Procedure Name Priority Date/Time Associated Diagnosis Comments CREATININE Routine 08/24/2017 6:00 EDT documented in this encounter Results * CREATININE (08/24/2017 6:00 EDT) CREATININE 0.70 0.52 - 1.04 mg/dL 08/24/2017 7:42 EDT [facility] eGFR >60 08/24/2017 7:42 EDT [facility] Comment: Chronic renal impairment is defined as GFR <60 Multiply result by 1.210 for patients. eGFR calculated using the IDMS-traceable MDRD Study Equation. ??(effective 01/17/2014) 08/24/2017 6:00 EDT 08/24/2017 7:07 EDT Narrative [facility] - 08/24/2017 7:42 EDT Does PT Have a Latex Allergy? UNKNOWN Provider Unknown CHEMISTRY & BLOOD GA S ORDERABLES [facility] documented in this encounter Visit Diagnoses Not on filedocumented in this encounter Care Teams Oil Field Equipment Mechanic Supervisor Relationship Specialty Start Date End Date Elizabeth Dsouza MD [address] [place] [id number] PCP - General 02/13/12 documented as of this encounter
--- OUTSIDE RECORDS SUMMARY | 2023-12-04 21:47 | XMS_ITS | Encounter Summary ---
Author Organization [facility] Address [address] [place] [address] Care Team Providers Care Family Advocate Name Role Phone Elizabeth Dsouza MD Primary Care Provider [phone] Reason for Referral * Referral (Routine/Next Available) - Receiving Office to Obtain Authorization Specialty Diagnoses / Procedures Referred By Loli rose Referred To Contact Diagnoses Gastrointestinal hemorrhage, unspecified gastrointestinal hemorrhage type Procedures UPPER ENDOSCOPY (EGD) Elizabeth Dsouza MD [address] [place] [address] Referral ID Status Reason Start Date Expiration Date Visits Requested Visits Authorized [id number] Receiving Office to Obtain Authorization 2 1 1 Reason for Visit * Auth/Cert Specialty Diagnoses / Procedures Referred By Loli rose Referred To Contact Referral ID Status Reason Start Date Expiration Date Visits Re quested Visits Authorized [id number] 1 1 Encounter Details Date Type Department Care Team (Latest Contact Info) Description 01/03/2022 10:50 EDT - 01/03/2022 23:59 EDT Hospital Encounter [facility] [address] [place] [address] Jame Mijares MD [address] [place] [address] [address] [place] [address] Gastrointestinal hemorrhage, unspecified gastrointestinal hemorrhage type Discharge Disposition: Home or Self Care [...] Recorded In the last 10 days, have love u been in contact with someone who was confirmed or suspected to have Coronavirus/COVID-19? No / Unsure 12/28/2021 16:51 EDT documented as of this encounter Last Filed Vital Signs Vital Sign Reading Time Taken Comments Blood Pressure 139/65 01/03/2022 1352 EDT Pulse - - Temperature 36.9 ??C (98.4 ??F) 01/03/2022 1105 EDT Respiratory Rate 21 01/03/2022 1359 EDT Oxygen Saturation 98% 01/03/2022 1359 EDT Inhaled Oxygen Concentration - - Weight 77.6 kg (171 lb) 01/03/2022 1105 EDT Height 157.5 cm (5' 2) 01/03/2022 1105 EDT Body Mass Index 31.28 01/03/2022 1105 EDT documented in this encounter Functional Status [...] Code Departure Means Destination Home or Self Shelter documented in this encounter H&P Notes * Jame Mijares MD - 01/03/2022 1145 EDT Endoscopy Sedation for Procedure History & Physical Date: 01/03/2022 Time: 13:05 Location: [facility] Endoscopy Planned Procedure: Upper Endoscopy Chief Complaint/Indications for Procedure: Gastrointestinal hemorrhage, unspecified gastrointestinal hemorrhage type History Previous Complication with Sedation and/or Anesthesia? No Allergies: Allergies Allergen Reactions ??? Morphine Current Medications: Current Outpatient Medications Medication ??? albuterol 90 mcg/actuation inhaler ??? aspirin chewable 81 mg tablet ??? cilostazoL (PLETAL) 100 mg tablet ??? DULoxetine (CYMBALTA) 30 mg delayed release capsule ??? famotidine (PEPCID) 20 mg tablet ??? ferrous sulfate 324 mg (65 mg iron) tablet,delayed release (DR/EC) ??? losartan (COZAAR) 25 mg tablet ??? magnesium oxide (MAG-OX) 400 mg (241.3 mg magnesium) tablet ??? nitroglycerin (NITROSTAT) 0.4 mg SL tablet ??? omeprazole (PRILOSEC) 20 mg capsule ??? pregabalin (LYRICA) 50 mg capsule ??? pyridoxine, vitamin B6, (VITAMIN B6) 50 mg tablet ??? rosuvastatin (CRESTOR) 10 mg tablet ??? tiotropium (SPIRIVA) 18 mcg inhalation capsule ??? traZODone (DESYREL) 50 mg tablet Current Facility-Administered Medications Medication Route Frequency ??? fentaNYL citrate (PF) injection intravenous PRN ??? sodium chloride 0.9 % (NS) infusion intravenous PRN Or ??? lactated ringers (LR) infusion intravenous PRN ??? lidocaine (PF) 10 mg/mL (1 %) injection 2 mg intradermal PRN ??? lidocaine (PF) 10 mg/mL (1 %) injection 2 mg intradermal PRN ??? midazolam (MDV) (VERSED) injection intravenous PRN ??? ondansetron (PF) (ZOFRAN) injection 4 mg intravenous Once PRN ??? sodium chloride 0.9 % (flush) flush 5 mL intravenous PRN Past Medical History: Past Medical History: Diagnosis Date ??? Anemia ??? Diverticulitis large intestine ??? GERD (gastroesophageal reflux disease) ??? Hypertension ??? Lung disease ??? S/P cardiac cath 15 years ago- 2 stents Social History: Past Surgical History: Procedure Laterality Date ??? CARDIAC SURGERY Stent x 2 ??? CARPAL TUNNEL RELEASE Bilateral Social History Tobacco Use ??? Smoking status: Current Every Day Smoker Packs/day: 1.50 ??? Smokeless tobacco: Never Used Substance Use Topics ??? Alcohol use: Not Currently Family History: Family History Problem Relation Age of Onset ??? Emphysema Father ??? Cancer Sister ??? Heart Disease Sister Review of Systems as pertinent: Physical Exam Vital Signs: BP 119/76 Temp 36.9 ??C (98.4 ??F) (Oral) Resp 15 Ht 157.5 cm (62) Wt 77.6 kg(171 lb) SpO2 100% BMI 31.28 kg/m?? Heart Examination: Cardiac Regularity: Regular Respiratory Examination: Respiratory Pattern: Regular Breath Sounds Right: Clear Breath Sounds Left: Clear Abdominal Examination: Additional physical exam related to the proposed procedure, patient activity, disease state and treatment as pertinent: Assessment Previous complications with sedation or anesthesia?: No Airway Concerns: None/NA Anesthesia Classification: ASA 2 Plan: Proceed with sedation for procedure Fasting Time: Date of Last Liquid: 01/02/22 Time of Last Liquid: 1145 Date of Last Solid: 01/02/22 Time of Last Solid: 1800 Patient Appropriate Candidate for Planned Sedation?: Yes Jame Mijares MD 01/03/2022 13:05 documented in this encounter Plan of Treatment Not on file documented as of this encounter Procedures Procedure Name Priority Date/Time Associated Diagnosis Comments ECG REPORT - SCANNED 01/08/2022 8:02 EDT UPPER ENDOSCOPY (EGD) Routine 01/03/2022 11:45 EDT Gastrointestinal hemorrhage, unspecified gastrointestinal hemorrhage type documented in this encounter Results * ECG REPORT - SCANNED (01/08/2022 8:02 EDT) 01/08/2022 8:02 EDT Scan 2 Manager Review PROCEDURE/MINOR PHILIPPE GICAL ORDERABLES * UPPER ENDOSCOPY (EGD) (01/03/2022 11:45 EDT) Anatomical Region Laterality Modality Endoscopy Narrative 01/03/2022 11:45 EDT [facility] ?? [address] [place] [address] ?? Patient Name ? VIKRAM CLIFFORD Date of ? 1955 Record Number ? [id number] Date/Time of Procedure ?01/03/2022, 11:45:00 AM Endoscopist ?Jame Mijares ?? Weaver Dobby Loom ? Referring Physician(s) ?? Elizabeth Dsouza M.D. Anesthesiologist ? PROCEDURE PERFORMED: Upper Endoscopy (EGD) INDICATIONS FOR EXAMINATION: melena Instruments: ? [id number] ([id number]) Medications: ?Fentanyl 75 mcg, Versed 3 mg I was in continuous face to face attendance during the administration of moderate sedation services that were monitored by an independent trained observer who had no other duties during the procedure. ? Visualization: ? Good ?Tolerance: Good ?Complications: None ? Extent of Exam: ?3rd portion duodenum ? Limitations: ?? Procedure Technique: A physical [...] a nasal cannula and IV medicine administered through an indwelling cannula. After adequate conscious sedation was achieved, the esophagus was intubated and the scope advanced under direct visualization to the 3rd portion duodenum. The 3rd portion duodenum was identified by visual landmarks. The scope was subsequently removed slowly while carefully examining the color, texture, anatomy, and integrity of the mucosa on the way out. The patient was subsequently transferred to the recovery area in satisfactory condition. 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 One was oozing blood. All three were cauterized using APC on small bowel settings with successful hemostasis ENDOSCOPIC DIAGNOSIS: Upper GI bleed due to AVMs RECOMMENDATIONS: Recommend colonoscopy If iron deficiency anemia worsens despite APC today, would recommend capsule endoscopy to visualize distal small bowel as it is very likely more AVMs exist in the distal small bowel Sedation Start: 01:04:31 PM ?? Sedation End: 01:17:09 PM Signature: Jame Mijares M.D. This note was electronically signed on 01/03/2022 01:22:25 PM By Jame Mijares M.D. Elizabeth Dsouza MD GI PROCEDURE ORDERAB LES documented in this encounter Visit Diagnoses Diagnosis Gastrointestinal hemorrhage, unspecified gastrointestinal hemorrhage type documented in this encounter Administered Medications Inactive Administered Medications - up to 3 most recent administrations Medication Order MAR Action Action Date Dose Rate Site fentaNYL citrate (PF) injection intravenous, PRN, Starting on Tish 01/03/22 at 1303, Until Tish 01/03/22 at 1319, Routine Given 01/03/2022 13:05 EDT 25 mcg Given 01/03/2022 13:03 EDT 50 mcg midazolam (MDV) (VERSED) injection intravenous, PRN, Starting on Tish 01/03/22 at 1303, Until Tish 01/03/22 at 1319, Routine Given 01/03/2022 13:05 EDT 1 mg Given 01/03/2022 13:03 EDT 2 mg documented in this encounter Historical Medications * This list may reflect changes made after this encounter. Medication Sig Dispensed Refills Start Date End Date omeprazole (PRILOSEC) 20 mg capsule Take 1 Capsule by mouth daily. magnesium oxide (MAG-OX) 400 mg (241.3 mg magnesium) tablet Take 400 mg by mouth daily. 07/23/2022 added in this encounter Orders Medications Ordered That Leland ht Not Have Been Administered Count Last Ordered Date First Ordered Date lactated ringers (LR) infusion 1 01/03/2022 lidocaine (PF) 10 mg/mL (1 % ) injection 2 mg 2 01/03/2022 ondansetron (PF) (ZOFRAN) injection 4 mg 1 01/03/2022 sodium chloride 0.9 % (flush) flush 5 mL 1 01/03/2022 sodium chloride 0.9 % (NS) infusion 1 01/03 documented in this encounter Care Teams Family Advocate Relationship Specialty Start Date End Date Elizabeth Dsouza MD [address] [facility] [place] [address] PCP - General 02/13/12 documented as of this encounter
--- OUTSIDE RECORDS SUMMARY | 2023-12-04 21:47 | XMS_ITS | Encounter Summary ---
Author Organization [facility] Address [address] [place] [address] Care Team Providers Care Motor And Chassis Inspector Name Role Phone Elizabeth Dsouza MD Primary Care Provider [phone] Encounter Details Date Type Department Care Team (Late st Contact Info) Description 04/30/2022 Lab Requisition [facility] Pathology & Laboratory Medicine - [facility] [address] [place], [place] [address] Elizabeth Dsouza MD [address] [place] [phone] Encounter for general adult medical examination without abnormal findings; Encounter for screening for malignant neoplasm of cervix Social History Tobacco Use Types Packs/Day Years [...] Date/Time Associated Diagnosis Comments PAP TEST Today 04/26/2022 8:45 EST Encounter for general adult medical examination without abnormal findings Encounter for screening for malignant neoplasm of cervix HPV GENOTYPES 16 AND 18/45 Today 04/26/2022 8:45 EST Encounter for general adult medical examination without abnormal findings Encounter for screening for malignant neoplasm of cervix HPV DNA DETECTION WITH GENOTYPING, PCR Today 04/26/2022 8:45 EST Encounter for general adult medical examination without abnormal findings Encounter for screening for malignant neoplasm of cervix documented in this encounter Results * HPV GENOTYPES 16 AND 18/45 (04/26/2022 8:45 EST) HPV High Risk type 16, PCR Negative Negative 05/30/2022 14:14 EDT [facility] HPV18/45 RNA (HPV18/45) Negative Negative 05/30/2022 14:14 EDT [facility] Papanicolaou smear specimen (specimen) CERVIX UTERI STRUCTURE / Unknown 04/26/2022 8:45 EST 05/13/2022 10:22 EST Elizabeth Dsouza MD MICROBIOLOGY - [facility] [place] ORDERABLES Performing Organization Address City/State/[facility] Co de Phone Number [facility] [address] [place] [address] * (ABNORMAL) HUMAN PAPILLOMAVIRUS (HPV) DETECTION-HIGH RISK TYPES (04/26/2022 8:45 EST) HPV other High Risk types, PCR Positive( A) Negative 05/13/2022 15:41 EST [facility] Comment:E6 OR E7 mRNA from o ne or more types of HPV types 16,18,31,33,35,39,45,51,52,56,58,59,66, and 68 is detected by etcher apprentice mediated amplification. High and intermediate risk HPV types are associated with most squamous intraepithelial lesions and cervical cancers. Papanicolaou smear specimen (specimen) CERVIX UTERI STRUCTURE / Unknown 04/26/2022 8:45 EST 05/13/2022 10:22 EST Elizabeth Dsouza MD MICROBIOLOGY - [facility] [place] ORDERABLES [facility] [address] [place] [address] * PAP TEST (04/26/2022 8:45 EST) Amendment Comment This report is amended to include High Risk HPV testing results. 05/30/2022 14:14 [facility] Specimens A. Cervix and/or Endocervix , ThinPrep Imaging System with Manual Evaluation 05/30/2022 14:14 [facility] Specimen Adequacy Satisfactory for Evaluation - transformation zone component present 05/30/2022 14:14 [facility] General Categorization Epithelial Cell Abnormality 05/30/2022 14:14 [facility] Descriptive Diagnosis Squamous Cell Abnormality - Atypical squamous cells, undetermined significance (ASC-US). 05/30/2022 14:14 [facility] Educational Comments [facility] recommends following the ASCCP's management guidelines which may be found at www.asccp.org 05/30/2022 14:14 [facility] Attestation By the signature below, the attending physician certifies that they have personally conducted a gross and/or microscopic examination of the described specimens and rendered or confirmed the above diagnosis. 05/30/2022 14:14 [facility] Amendment electronically signed by Heidi Hugo CT(ASCP) on 05/30/2022 at 1414 at 0808 Clinical History See below 05/31/19 14:14 [facility] HPV The result for the Human Papillomavirus (HPV) Detection-High Risk Types is Positive . E6 OR E7 mRNA from one or more types of HPV types 16,18,31,33,35,39 ,45,51,52,56,58,5 9,66, and 68 is detected by etcher apprentice mediated amplification. High and intermediate risk HPV types are associated with most squamous intraepithelial lesions and cervical cancers. Testing was performed on specimen [id number] and was resulted on 05/13/2022 1541 EST by ÁLVARO, LAB INSTRUMENT RESULTS IN 05/30/2022 14:14 EDT [facility] Genotyping 16 & 18/45 The results for the HPV Genotypes 16 and 18/45 are Negative for the HPV16 RNA and Negative for the HPV18/45 RNA (HPV18/45). Testing was performed on specimen [id number] and was resulted on 05/30/2022 1410 EDT by TREY KELLER 05/30/2022 14:14 EDT [facility] Performing Lab [facility] 05/30/2022 14:14 EDT [facility] Scanned Images 05/30/2022 14:14 T [facility] Papanicolaou smear specimen (specimen) CERVIX UTERI STRUCTURE / Unknown 04/26/2022 8:45 EST 04/30/2022 10:04 EST Elizabeth Dsouza MD PATHOLOGY ORDERABLES Performing Organization Address City/State/[facility] Co de Phone Number [facility] [address] [place] [address] documented in this encounter Visit Diagnoses Diagnosis Encounter for general adult medical examination without abnormal findings Unspecified general medical examination Encounter for screening for malignant neoplasm of cervix Screening for malignant neoplasm of the cervix documented in this encounter Care Teams Motor And Chassis Inspector Relationship Specialty Start Date End Date Elizabeth Dsouza MD [address] [place] [phone] PCP - General 02/13/12 documented as of this encounter
--- OUTSIDE RECORDS SUMMARY | 2023-12-04 21:47 | XMS_ITS | Encounter Summary ---
Author Organization [facility] Address [address] [place] [address] Care Team Providers Care Battery Tester Name Role Phone Elizabeth Dsouza MD Primary Care Provider [phone] Encounter Details Date Type Department Care Team (Late st Contact Info) Description 08/18/2017 Historical Results Only [facility] Radiology Results [address] [place] [address] [id number] Elizabeth Brennan MD [address] [place] [address] Social History Tobacco Use Types Packs/Day Years Used Date Smoking Tobacco: Never Assessed Sex and Gender Information Value Date Recorded Sex Assigned at Not on file Gender Identity Female 01/04/2021 7:40 EDT Sexual Orientation Not on file documented as of this encounter Plan of Treatment Not on file documented as of this encounter Procedures Procedure Name Priority Date/Time Associated Diagnosis Comments TROPONIN I Routine 08/18/2017 22:47 EDT HEMOGLOBIN AND HEMATOCRIT - CV Routine 08/18/2017 19:00 EDT TROPONIN I Routine 08/18/2017 19:00 EDT TRANSTHORACIC ECHO (TTE) COMPLETE 08/18/2017 15:20 EDT HEMOGLOBIN AND HEMATOCRIT - CV Routine 08/18/2017 12:55 EDT TROPONIN I Routine 08/18/2017 12:55 EDT LACTIC ACID Routine 08/18/2017 12:55 EDT PROTIME Routine 08/18/2017 12:55 EDT PROTIME Routine 08/18/2017 12:55 EDT MAGNESIUM Routine 08/18/2017 12:[address] ABDOMEN PELVIS W CONTRAST 08/18/2017 10:08 EDT XR CHEST 2 VIEWS 08/18/2017 10:0 4 EDT BACTERIAL CULTURE, URINE Routine 08/18/2017 8:59 EDT UR[place]ALYSIS/COMPLETE - [facility] [place] Routine 08/18/2017 8:55 EDT BLOOD CULTURE - [facility] [place] Routine 08/18/2017 8:39 EDT BLOOD CULTURE - [facility] [place] Routine 08/18/2017 7:44 EDT SPEC W/O ORDERS - [facility] [place] Routine 8 7:44 EDT LACTIC ACID SEPSIS REFLEX - CV Routine 08/18/2017 7:44 EDT TROPONIN I Routine 08/18/2017 7:44 EDT COMPLETE BLOOD COUNT AND DIFFERENTIAL Routine 08/18/2017 7:44 EDT C REACTIVE PROTEIN Routine 08/18/2017 7: 44 EDT MAGNESIUM Routine 08/18/2017 7:44 EDT LIPASE Routine 08/18/2017 7:44 EDT COMPREHENSIVE METABOLIC PANEL (CMP) Routine 08/18/2017 7:44 EDT documented in this encounter Results * (ABNORMAL) TROPONIN I (08/18/2017 22:47 EDT) Troponin I (ng/mL) 1.910(HH) 0.000 - 0.034 ng/mL 08/18/2017 23:23 EDT [facility] Comment: Result called to SAMUEL HORN IN [facility] 08/18/17 2323 Result called by JOHNIE Interpretation comments: ??Cutoff for a positive troponin result is set at the 99th percentile of the upper reference limit. ??Elevated troponin must always be interpreted in the context of the clinical presentation. ?Serial troponin testing 3-6 hr from baseline is favored over relying on a single troponin level. 08/18/2017 22:4 7 EDT 08/18/2017 22:49 EDT Thi Asencio DO CHEMISTRY & BLOOD G ORDERABLES Performing Organization Address [facility] Co de Phone Number [facility] * (ABNORMAL) TROPONIN I (08/18/2017 19:00 EDT) Troponin I (ng/mL) 1.930(HH) 0.000 - 0.034 ng/mL 08/18/2017 19:45 EDT [facility] Comment: Result called to SAMUEL HORN IN [facility] 08/18/17 1945 Result called by MARY JANE Interpretation comments: ??Cutoff for a positive troponin result is set at the 99th percentile of the upper reference limit. ??Elevated troponin must always be interpreted in the context of the clinical presentation. ?Serial troponin testing 3-6 hr from baseline is favored over relying on a single troponin level. 08/18/2017 19:0 0 EDT 08/18/2017 19:14 EDT Thi Asencio DO CHEMISTRY & BLOOD G ORDERABLES Performing Organization Address [facility] Co de Phone Number [facility] * (ABNORMAL) HEMOGLOBIN AND HEMATOCRIT - CV (08/18/2017 19:00 EDT) HEMATOCRIT - [facility] [place] 34.3 34.0 - 47.0 % 08/18/2017 19:22 EDT [facility] HEMOGLOBIN - [facility] [place] 9.9(L) 11.2 - 15.7 g/dl 08/18/2017 19:22 EDT [facility] 08/18/2017 19:0 0 EDT 08/18/2017 19:14 EDT Thi Asencio DO CHEMISTRY & BLOOD G ORDERABLES [facility] * TRANSTHORACIC ECHO (TTE) COMPLETE (08/18/2017 15:20 EDT) Anatomical Region Laterality Modality Ultrasound 08/18/2017 15:2 0 EDT Narrative 08/18/2017 15:20 EDT ?[facility] [address] [place] [address] ? [id number] ? E C H O C A R D I O G R A M ? R E P O R T NAME: MELODIE CLIFFORD ? : 57 ? LOCATION: DSCU ? TELEPHONE: [phone] ?MR#: [id number] ? *[facility]* *[facility]* [address] [place] [address] Date of study: 08/18/2017 Transthoracic Echocardiography M-mode, complete 2D, complete spectral Doppler, and color Doppler *STUDY CONCLUSIONS* Summary: 1. Left ventricle: The cavity size was normal. Wall thickness was ?? normal. Systolic function was normal. The estimated ejection fraction ?? was 60-65%. Wall motion was normal; there were no regional wall ?? motion abnormalities. 2. Right ventricle: The cavity size was normal. Wall thickness was ?? normal. Systolic function was normal. 3. Pulmonary arteries: Pulmonary systolic pressure was mildly increased. ?? PA peak pressure: 37mm Hg (S). *PATIENT PRESENTATION* Height: ? 154.9cm ((61in) ) S/D Pressure: 109 / 57 Weight: ? 81.2kg ((178.6lb) ) BSA: ?1.91m S 2 Test start time: ??03:15 PM. Test stop time: ??03:44 PM. ORDERING ? Thi Asencio REFERRING ?Thi Asencio PUBLIC SAFETY TEACHER ??Ladan Dunne PERFORMING ?? [facility] *PROCEDURE DATA* Procedure information: ??The patient was identified by two identifiers. This study was interpreted by [facility]. Pertinent images and digital data are archived for permanent storage and are available for subsequent review. No prior study was available for comparison. ??Study status: Routine. Transthoracic echocardiography. ??M-mode, complete 2D, complete spectral Doppler, and color Doppler. A Transthoracic Echocardiogram was ?[address] [place] [address] ? [id number] ? E C H O C A R D I O G R A M ? R E P O R T NAME: MELODIE CLIFFORD ? : 57 ? LOCATION: [facility] ? TELEPHONE: [phone] ?MR#: [id number] ? performed. Scanning was performed from the parasternal, apical, subcostal, and suprasternal notch acoustic windows. Images were obtained using a [facility] [place] IE33 1 cardiac ultrasound machine. Image quality was fair. Study completion: ??The patient tolerated the procedure well. *INDICATIONS AND HISTORY* Indications: ??CP *CARDIAC ANATOMY* Left ventricle: ??The cavity size was normal. Wall thickness was normal. Systolic function was normal. The estimated ejection fraction was 60-65%. Wall motion was normal; there were no regional wall motion abnormalities. Aortic valve: ?? Trileaflet; normal thickness leaflets. Mobility was not restricted. ??Doppler: ??Transvalvular velocity was within the normal range. There was no stenosis. There was no significant regurgitation. Aorta: ??Aortic root: The aortic root was normal in size. Ascending aorta: The ascending aorta was normal in size. Mitral valve: ?? Structurally normal valve. ?? Mobility was not restricted. ??Doppler: ??Transvalvular velocity was within the normal range. There was no evidence for stenosis. There was trivial regurgitation. ?Peak gradient (D): 4mm Hg. Left atrium: ??The atrium was normal in size. Right ventricle: ??The cavity size was normal. Wall thickness was normal. Systolic function was normal. Pulmonic valve: ?? Poorly visualized. ??Doppler: ??Transvalvular velocity was within the normal range. There was no evidence for stenosis. There was no significant regurgitation. Tricuspid valve: ?? Structurally normal valve. ?Doppler: ??Transvalvular velocity was within the normal range. There was no evidence for stenosis. There was trivial regurgitation. Pulmonary artery: ?? Poorly visualized. Pulmonary systolic pressure was mildly increased. Right atrium: ??The atrium was normal in size. Pericardium: ??There was no pericardial effusion. Systemic veins: Inferior vena cava: The vessel was normal in size. The respirophasic diameter changes were in the normal range (greater than or equal to 50%), consistent with normal central venous pressure. Baseline ECG: ?? Normal sinus rhythm. Measurements Left ventricle ?Value ?Reference LV ID, ED, PLAX ? 3.9 ?? cm ? 3.5 - 6.0 LV ID, ES, PLAX ? 2.7 ?? cm ? 2.1 - 4.0 ?[facility] [address], [place] [address] ? [id number] ? E C H O C A R D I O G R A M ? R E P O R T NAME: MELODIE CLIFFORD ? : 57 ? LOCATION: DSCU ? TELEPHONE: [phone] ?MR#: [id number] ? LV PW thickness, ED, PLAX ? 0.9 ?? cm ? LV end-diastolic volume, 1-p A2C ?45 ?ml ? LV ejection fraction, 1-p A2C ? 58 ?% ? LV end-diastolic volume, 1-p A4C ?48 ?ml ? LV ejection fraction, 1-p A4C ? 71 ?% ? LV e', lateral ?0.102 m/sec ?? LV E/e', lateral ?10 ? LV e', medial ? 0.07 ??m/sec ?? LV E/e', medial ? 14 ? LV e', average ?0.086 m/sec ?? LV E/e', average ?12 ? Ventricular septum ?Value ?Reference IVS thickness, ED, PLAX ? 1.0 ?? cm ? Aorta ? Value ?Reference Aortic root ID ?2.5 ?? cm ? Ascending aorta ID, A-P ? 2.6 ?? cm ? Ascending aorta ID, A-P, S ?2.6 ?? cm ? Left atrium ? Value ?Reference LA ID, A-P, ES ?3.5 ?? cm ? LA ID/bsa, A-P ?1.8 ?? cm/m S 2 <=2.2 LA area, ES, A4C ?15 ?cm S 2 ?? 8.8 - 23.4 LA area, ES, A2C ?13 ?cm S 2 ?? LA volume, ES, 2-p ?36 ?ml ? LA volume/bsa, ES, 2-p ?19 ?ml/m S 2 LA/aortic root ratio ?1.4 ? Mitral valve ?Value ?Reference Mitral E-wave peak velocity ? 1 ? m/sec ?? Mitral A-wave peak velocity ? 1.05 ??m/sec ?? Mitral deceleration time ?222 ?? ms ? 150 - 230 Mitral peak gradient, D ? 4 ? mm Hg ?? Mitral E/A ratio, peak ?1 ? Pulmonary arteries ?Value ?Reference PA pressure, S, DP ?(H) ? 37 ?mm Hg ??<=30 Tricuspid valve ? Value ?Reference Tricuspid regurg peak velocity ?2.6 ?? m/sec ?? Tricuspid peak RV-RA gradient ? 26.6 ??mm Hg ?? Tricuspid maximal regurg velocity, PISA ? 2.58 ??m/sec ?? Right atrium ?Value ?Reference RA area, ES, A4C ?12 ?cm S 2 ?? 8.3 - 19.5 Systemic veins ?Value ?Reference Estimated CVP ? 10 ?mm Hg ?? Right ventricle ? Value ?Reference ?[address] [place], [place] [address] ? [id number] ? E C H O C A R D I O G R A M ? R E P O R T NAME: MELODIE CLIFFORD ? : 57 ? LOCATION: DSCU ? TELEPHONE: [phone] ?MR#: [id number] ? RV pressure, S, DP ?(H) ? 37 ?mm Hg ??<=30 Legend: (L) ??and ??(H) ??marilynn values outside specified reference range. I have personally reviewed the images and have reviewed and edited the reported findings. Electronically signed by Jemima Flynn 08/18/2017 20:55 Procedure Note Jemima Flynn MD - 01/03/[address] [place] [id number] E C H O C A R D I O G R A M R E P O R T NAME: MELODIE CLIFFORD : 57LOCATION: DSCU TELEPHONE: [phone] MR#: [id number] *[facility]* *[facility]* [address] [place] [address] Date of study: 08/18/2017 Transthoracic Echocardiography M-mode, complete 2D, complete spectral Doppler, and color Doppler *STUDY CONCLUSIONS* Summary: 1. Left ventricle: The cavity size was normal. Wall thickness was normal. Systolic function was normal. The estimated ejection fraction was 60-65%. Wall motion was normal; there were no regional wall motion abnormalities. 2. Right ventricle: The cavity size was normal. Wall thickness was normal. Systolic function was normal. 3. Pulmonary arteries: Pulmonary systolic pressure was mildly increased. PA peak pressure: 37mm Hg (S). *PATIENT PRESENTATION* Height: 154.9cm ((61in) ) S/D Pressure: 109 / 57 Weight: 81.2kg ((178.6lb) ) BSA: 1.91m S 2 Test start time: 03:15 PM. Test stop time: 03:44 PM. ORDERING Thi Asencio REFERRING Thi Asencio PUBLIC SAFETY TEACHER Ladan Dunne PERFORMING [facility] *PROCEDURE DATA* Procedure information: The patient was identified by two identifiers. This study was interpreted by [facility]. Pertinent images and digital data are archived for permanent storage and are available for subsequent review. No prior study was available for comparison. Study status: Routine. Transthoracic echocardiography. M-mode, complete 2D, complete spectral Doppler, and color Doppler. A Transthoracic Echocardiogram was [address] [place] [id number] E C H O C A R D I O G R A M R E P O R T NAME: MELODIE CLIFFORD : 57LOCATION: [facility] TELEPHONE: [phone] MR#: [id number] performed. Scanning was performed from the parasternal, apical, subcostal, and suprasternal notch acoustic windows. Images were obtained using a [facility] IE33 1 cardiac ultrasound machine. Image quality was fair. Study completion: The patient tolerated the procedure well. *INDICATIONS AND HISTORY* Indications: CP *CARDIAC ANATOMY* Left ventricle: The cavity size was normal. Wall thickness was normal. Systolic function was normal. The estimated ejection fraction was 60-65%. Wall motion was normal; there were no regional wall motion abnormalities. Aortic valve: Trileaflet; normal thickness leaflets. Mobility was not restricted. Doppler: Transvalvular velocity was within the normal range. There was no stenosis. There was no significant regurgitation. Aorta: Aortic root: The aortic root was normal in size. Ascending aorta: The ascending aorta was normal in size. Mitral valve: Structurally normal valve. Mobility was not restricted. Doppler: Transvalvular velocity was within the normal range. There was no evidence for stenosis. There was trivial regurgitation. Peak gradient (D): 4mm Hg. Left atrium: The atrium was normal in size. Right ventricle: The cavity size was normal. Wall thickness was normal. Systolic function was normal. Pulmonic valve: Poorly visualized. Doppler: Transvalvular velocity was within the normal range. There was no evidence for stenosis. There was no significant regurgitation. Tricuspid valve: Structurally normal valve. Doppler: Transvalvular velocity was within the normal range. There was no evidence for stenosis. There was trivial regurgitation. Pulmonary artery: Poorly visualized. Pulmonary systolic pressure was mildly increased. Right atrium: The atrium was normal in size. Pericardium: There was no pericardial effusion. Systemic veins: Inferior vena cava: The vessel was normal in size. The respirophasic diameter changes were in the normal range (greater than or equal to 50%), consistent with normal central venous pressure. Baseline ECG: Normal sinus rhythm. Measurements Left ventricle Value Reference LV ID, ED, PLAX 3.9 cm 3.5 - 6.0 LV ID, ES, PLAX 2.7 cm 2.1 - 4.0 [address] [place], [place] [address] [id number] E C H O C A R D I O G R A M R E P O R T NAME: MELODIE CLIFFORD : 57LOCATION: [facility] TELEPHONE: [phone] MR#: [id number] LV PW thickness, ED, PLAX 0.9 cm LV end-diastolic volume, 1-p A2C 45 ml LV ejection fraction, 1-p A2C 58 % LV end-diastolic volume, 1-p A4C 48 ml LV ejection fraction, 1-p A4C 71 % LV e', lateral 0.102 m/sec LV E/e', lateral 10 LV e', medial 0.07 m/sec LV E/e', medial 14 LV e', average 0.086 m/sec LV E/e', average 12 Ventricular septum Value Reference IVS thickness, ED, PLAX 1.0 cm Aorta Value Reference Aortic root ID 2.5 cm Ascending aorta ID, A-P 2.6 cm Ascending aorta ID, A-P, S 2.6 cm Left atrium Value Reference LA ID, A-P, ES 3.5 cm LA ID/bsa, A-P 1.8 cm/m S 2 <=2.2 LA area, ES, A4C 15 cm S 2 8.8 -23.4 LA area, ES, A2C 13 cm S 2 LA volume, ES, 2-p 36 ml LA volume/bsa, ES, 2-p 19 ml/m S 2 LA/aortic root ratio 1.4 Mitral valve Value Reference Mitral E-wave peak velocity 1 m/sec Mitral A-wave peak velocity 1.05 m/sec Mitral deceleration time 222 ms 150 - 230 Mitral peak gradient, D 4 mm Hg Mitral E/A ratio, peak 1 Pulmonary arteries Value Reference PA pressure, S, DP (H) 37 mm Hg <=30 Tricuspid valve Value Reference Tricuspid regurg peak velocity 2.6 m/sec Tricuspid peak RV-RA gradient 26.6 mm Hg Tricuspid maximal regurg velocity, PISA 2.58 m/sec Right atrium Value Reference RA area, ES, A4C 12 cm S 2 8.3 -19.5 Systemic veins Value Reference Estimated CVP 10 mm Hg Right ventricle Value Reference [address] [place], [place] [address] [id number] E C H O C A R D I O G R A M R E P O R T NAME: MELODIE CLIFFORD : 57LOCATION: [facility] TELEPHONE: [phone] MR#: [id number] RV pressure, S, DP (H) 37 mm Hg <=30 Legend: (L) and (H) marilynn values outside specified reference range. I have personally reviewed the images and have reviewed and edited the reported findings. Electronically signed by Jemima Flynn 08/18/2017 20:55 Provider Unknown CARDIAC ECHO ORDERAB LES * MAGNESIUM (08/18/2017 12:55 EDT) Pathologist [facility] Magnesium 1.90 1.7 - 2.8 mg/dL 08/18/2017 13:17 EDT [facility] 08/18/2017 12:5 5 EDT 08/18/2017 13:01 EDT Thi Asencio DO CHEMISTRY & BLOOD G ORDERABLES [facility] * (ABNORMAL) TROPONIN I (08/18/2017 12:55 EDT) Troponin I (ng/mL) 1.770(HH) 0.000 - 0.034 ng/mL 08/18/2017 13:32 EDT [facility] Comment: [facility] 08/18/17 1332 Result called by KL Interpretation comments: ??Cutoff for a positive troponin result is set at the 99th percentile of the upper reference limit. ??Elevated troponin must always be interpreted in the context of the clinical presentation. ?Serial troponin testing 3-6 hr from baseline is favored over relying on a single troponin level. 08/18/2017 12:5 5 EDT 08/18/2017 13:01 EDT Thi Asencio DO CHEMISTRY & BLOOD G ORDERABLES Performing Organization Address [facility]/ZIP Co de Phone Number [facility] * LACTIC ACID (08/18/2017 12:55 EDT) [facility] LACTIC ACID [facility] 1.6 <2.0 mmol/L 08/18/2017 13:17 EDT [facility] 08/18/2017 12:5 5 EDT 08/18/2017 13:01 EDT Elizabeth Brennan MD CHEMISTRY & BLOOD GA S ORDERABLES Performing Organization Address [facility] Co de Phone Number [facility] * (ABNORMAL) PROTIME (08/18/2017 12:55 EDT) [facility] PROTHROMBIN TIME [facility] 13.6(H) 9.5 - 13.4 SECONDS 08/18/2017 13:15 EDT [facility] 08/18/2017 12:5 5 EDT 08/18/2017 13:01 EDT Thi Asencio DO HEMATOLOGY & PF4 OR DERABLES Performing Organization Address [facility]/ZIP Co de Phone Number [facility] * PROTIME (08/18/2017 12:55 EDT) [facility] INR [facility] 1.2 0.9 - 1.2 08/18/2017 13:15 EDT [facility] Comment: Low intensity INR: 2.0-3.0 High intensity INR: Consult Coag Dept. 08/18/2017 12:5 5 EDT 08/18/2017 13:01 EDT Thi Asencio DO HEMATOLOGY & PF4 OR DERABLES Performing Organization Address City/[facility]/ZIP Co de Phone Number [facility] * (ABNORMAL) HEMOGLOBIN AND HEMATOCRIT - [facility] [place] (08/18/2017 12:55 EDT) HEMATOCRIT - [facility] [place] 36.4 34.0 - 47.0 % 08/18/2017 13:10 EDT [facility] HEMOGLOBIN - [facility] [place] [facility] 10.5(L) 11.2 - 15.7 g/dl 08/18/2017 13:10 EDT [facility] 08/18/2017 12:5 5 EDT 08/18/2017 13:01 EDT Thi Donaldson Luis M DO CHEMISTRY & BLOOD G ORDERABLES [facility] * CT ABDOMEN PELVIS W CONTRAST (08/18/2017 10:08 EDT) Anatomical Region Laterality Modality Other 08/18/2017 10:0 8 EDT Narrative 08/18/2017 10:11 EDT ? AN ADDENDUM IS INCLUDED ON THIS REPORT ? ADDENDUM ? The case was again discussed with Dr. Brennan by Dr. Addison on 11/18/2017 ? at 10:25 AM. The peripheral, wedge like altered enhancement of the ? spleen is felt to be highly suspicious for splenic infarcts. ? ADDENDUM SIGNED IN OTHER VENDOR SYSTEM 08/18/2017 ?Reported By: Nelson Addison MD ?Transcribed: 08/18/2017 (1030) ?REPORT ? EXAM: CAT SCAN/ABDOMEN PELVIS WITH CONTRA EX. D/ ([id number]) ? CLINICAL INFORMATION: ? LLQ PAIN, FEVER ? ABDOMEN PELVIS WITH CONTRAST ??08/18/2017 9:46 AM ? Signs and Symptoms/Comments: ? LLQ PAIN, FEVER ? Technique: CT of the abdomen and pelvis was performed following the ? administration intravenous contrast; coronal and sagittal multiplanar ? reconstructions generated. ? Comparison: None available. ? Findings: ? Lower chest: Minimal atelectasis at the lung bases. ? Hepatobiliary: No focal hepatic lesion detected. There is ? cholelithiasis. There is no biliary ductal dilatation. ? Spleen, pancreas, adrenal glands: Heterogeneous enhancement of the ? spleen is noted. This persists on the delayed acquisition. The left ? adrenal gland is mildly thickened and there is an indeterminate ? heterogeneous 1.5 cm left adrenal nodule. The right adrenal gland ? appears normal. The pancreas is normal. ? Kidneys, ureters, bladder: No abnormalities. ? Uterus, ovaries: Uterus anteverted. No adnexal mass. ? Bowel: There is colonic diverticulosis and there is moderate ? mesenteric fat stranding surrounding a focally inflamed diverticulum ? (axial series 2 image 111 through 120). A small amount of ? extraluminal air is noted in the adjacent mesentery (axial series 2 ? image 119, 124, 99), but is also seen tracking into the upper abdomen ? (axial series 2 image 42, 71, 54). A site of microperforation is ? suspected on series 2 image 113 and series 4 image 35. There is trace ? free fluid. No organized fluid collection is present. Borderline ? thickening of the appendix is likely secondary to the adjacent ? inflammatory process. ? PAGE 1 ? Signed Report ? (CONTINUED) ? AN ADDENDUM IS INCLUDED ON THIS REPORT ? Lymphovascular: Aortoiliac atherosclerosis. No aneurysm. ? Abdominal wall: Intact. ? Musculoskeletal: No acute osseous abnormality detected. ? Impression: ? 1. Acute diverticulitis with a small amount of extraluminal air ? tracking throughout the peroneal cavity. There is moderate ? surrounding inflammatory change and trace free fluid. No drainable ? fluid collection is present. Mild thickening of the appendix is ? likely secondary due to the primary colonic inflammatory process. ? 2. Cholelithiasis. ? 3. Heterogeneous enhancement of the spleen. Although this is commonly ? seen in the portal venous phase, this heterogeneous enhancement ? pattern persists on the delayed acquisition. The altered enhancement ? is somewhat peripheral and wedge like, raising the possibility of ? splenic infarct. The differential also includes laceration. ? 4. Atherosclerosis. ? 5. Thickening of the left adrenal gland and indeterminant 1.5 cm left ? adrenal nodule. ? Findings discussed with Dr. Nelson by Dr. Addison on 08/18/2017 at 10:00 ? AM. ? REPORT SIGNED IN OTHER VENDOR SYSTEM 08/18/2017 ?Reported By: Nelson Addison MD ? CC: ? Transcribed Date/Time: 08/18/2017 (1011) ? [place] Clerk: HIS.POWSCR ? Printed Date/Time: 09/04/2018 (9149) ? PAGE 2 ? Signed Report ? Procedure Note Nelson Addison MD - 01/21/2019 AN ADDENDUM IS INCLUDED ON THIS REPORT ADDENDUM The case was again discussed with Dr. Brennan by Dr. Addison on11/18/2017 at 10:25 AM. The peripheral, wedge like altered enhancement of the spleen is felt to be highly suspicious for splenic infarcts. ADDENDUM SIGNED IN OTHER VENDOR SYSTEM 08/18/2017 Reported By: Nelson Addison MD Transcribed: 08/18/2017 (1030) HIS.POWSCR REPORT EXAM: CAT SCAN/ABDOMEN PELVIS WITH CONTRA EX. D/ (0946) CLINICAL INFORMATION: LLQ PAIN, FEVER ABDOMEN PELVIS WITH CONTRAST 08/18/2017 9:46 AM Signs and Symptoms/Comments: LLQ PAIN, FEVER Technique: CT of the abdomen and pelvis was performed following the administration intravenous contrast; coronal and sagittalmultiplanar reconstructions generated. Comparison: None available. Findings: Lower chest: Minimal atelectasis at the lung bases. Hepatobiliary: No focal hepatic lesion detected. There is cholelithiasis. There is no biliary ductal dilatation. Spleen, pancreas, adrenal glands: Heterogeneous enhancement of the spleen is noted. This persists on the delayed acquisition. The left adrenal gland is mildly thickened and there is an indeterminate heterogeneous 1.5 cm left adrenal nodule. The right adrenal gland appears normal. The pancreas is normal. Kidneys, ureters, bladder: No abnormalities. Uterus, ovaries: Uterus anteverted. No adnexal mass. Bowel: There is colonic diverticulosis and there is moderate mesenteric fat stranding surrounding a focally inflameddiverticulum (axial series 2 image 111 through 120). A small amount of extraluminal air is noted in the adjacent mesentery (axial series 2 image 119, 124, 99), but is also seen tracking into the upperabdomen (axial series 2 image 42, 71, 54). A site of microperforation is suspected on series 2 image 113 and series 4 image 35. There istrace free fluid. No organized fluid collection is present. Borderline thickening of the appendix is likely secondary to the adjacent inflammatory process. PAGE 1 Signed Report (CONTINUED) AN ADDENDUM IS INCLUDED ON THIS REPORT Lymphovascular: Aortoiliac atherosclerosis. No aneurysm. Abdominal wall: Intact. Musculoskeletal: No acute osseous abnormality detected. Impression: 1. Acute diverticulitis with a small amount of extraluminal air tracking throughout the peroneal cavity. There is moderate surrounding inflammatory change and trace free fluid. No drainable fluid collection is present. Mild thickening of the appendix is likely secondary due to the primary colonic inflammatory process. 2. Cholelithiasis. 3. Heterogeneous enhancement of the spleen. Although this iscommonly seen in the portal venous phase, this heterogeneous enhancement pattern persists on the delayed acquisition. The alteredenhancement is somewhat peripheral and wedge like, raising the possibility of splenic infarct. The differential also includes laceration. 4. Atherosclerosis. 5. Thickening of the left adrenal gland and indeterminant 1.5 cmleft adrenal nodule. Findings discussed with Dr. Nelson by Dr. Addison on 08/18/2017 at 10:00 AM. REPORT SIGNED IN OTHER VENDOR SYSTEM 08/18/2017 Reported By: Nelson Addison MD CC: Transcribed Date/Time: 08/18/2017 (1011) [place] Clerk: Printed Date/Time: 09/04/2018 (5953) PAGE 2 Signed Report Elizabeth Brennan MD IMG CT ORDERABLES * XR CHEST 2 VIEWS (08/18/2017 10:04 EDT) Anatomical Region Laterality Modality Other 08/18/2017 10:0 4 EDT Narrative 08/18/2017 10:07 EDT ? EXAM: RADIOLOGY/CHEST (PA ?? LAT) ?EX. D/ (0953) ? CLINICAL INFORMATION: ? FEVER ? INDICATION: FEVER. ? COMPARISON: None. ? TECHNIQUE: 2 views of the chest were obtained. ? FINDINGS: ? The cardiomediastinal silhouette and pulmonary vasculature are within ? normal limits. The lungs are clear. No pleural effusion or ? pneumothorax is seen. ? IMPRESSION: No acute process. ? REPORT SIGNED IN OTHER VENDOR SYSTEM 08/18/2017 ?Reported By: Amilcar Funk MD ? CC: ? Transcribed Date/Time: 08/18/2017 (1007) ? [place] Clerk: ? Printed Date/Time: 09/04/2018 (6079) ? PAGE 1 ? Signed Report ? Procedure Note Amilacr Funk MD - 01/21/2019 EXAM: RADIOLOGY/CHEST (PA LAT) EX. D/ (0953) CLINICAL INFORMATION: FEVER INDICATION: FEVER. COMPARISON: None. TECHNIQUE: 2 views of the chest were obtained. FINDINGS: The cardiomediastinal silhouette and pulmonary vasculature arewithin normal limits. The lungs are clear. No pleural effusion or pneumothorax is seen. IMPRESSION: No acute process. REPORT SIGNED IN OTHER VENDOR SYSTEM 08/18/2017 Reported By: Amilcar Funk MD CC: Transcribed Date/Time: 08/18/2017 (1007) [place] Clerk: Printed Date/Time: 09/04/2018 (6608) PAGE 1 Signed Report Elizabeth Brennan MD IMG DIAGNOSTIC IMAGI NG ORDERABLES * BACTERIAL CULTURE, URINE (08/18/2017 8:59 EDT) Urine Culture 08/19/2017 11:35 EDT [facility] Urine Culture No growth. 08/19/2017 11:35 EDT [facility] 08/18/2017 8:59 EDT 08/18/2017 9:43 EDT Comment:VOID Elizabeth Brennan MD MICROBIOLOGY - GENER AL ORDERABLES [facility] * URINALYSIS/COMPLETE - [facility] [place] (08/18/2017 8:55 EDT) URINE APPEARANCE - [facility] [place] Cloudy CLEAR 08/18/2017 9:12 EDT [facility] URINE BACTERIA - [facility] [place] MOD 08/18/2017 9:42 EDT [facility] URINE BILIRUBIN - DIPSTICK - [facility] [place] 1+ NEGATIVE 08/18/2017 9:12 T [facility] Comment: Unable to confirm positive urine bilirubin. If clinical correlation is inconsistent, consider serum bilirubin. URINE BLOOD - [facility] [place] 1+ NEG 08/18/2017 9:12 EDT [facility] URINE COLOR - [facility] [place] Yellow YELLOW 08/18/2017 9:12 EDT [facility] URINE GLUCOSE - DIPSTICK - [facility] [place] Negative NEGATIVE 08/18/2017 9:12 [facility] URINE KETONE - [facility] [place] Negative NEGATIVE 08/18/2017 9:12 EDT [facility] URINE LEUK ESTERASE - [facility] [place] 2+ NEG 08/18/2017 9:12 EDT [facility] URINE NITRITE - DIPSTICK - [facility] [place] Negative NEG 08/18/2017 9:12 EDT [facility] URINE PH - [facility] [place] 6.0 4.0 - 8.0 8 9:12 EDT [facility] URINE PROTEIN - DIPSTICK - [facility] [place] 1+ NEG 08/18/2017 9:12 EDT [facility] URINE RBC - [facility] [place] 3-6 rbc/hpf 08/19/19 18 9:42 EDT [facility] URCULTIF+? - [facility] [place] Culture Ordered 08/18/2017 9:42 EDT [facility] URINE SPECIFIC GRAVITY - [facility] [place] 1.025 1.001 - 1.035 08/18/2017 9:12 EDT [facility] URINE SQUAMOUS CELLS - [facility] [place] MOD NEG #/hpf 08/18/2017 9:42 EDT [facility] URINE TRICHOMONAS - [facility] [place] FEW 08/18/2017 9:42 EDT [facility] URINE UROBILINOGEN - DIPSTICK - [facility] [place] 0.2 0.2 - 1.0 08/18/2017 9:12 EDT [facility] URINE WBC - [facility] [place] 20-30 NEG wbc/hpf 018 9:42 EDT [facility] 08/18/2017 8:55 EDT 08/18/2017 9:07 EDT Narrative [facility] - 08/18/2017 9:42 EDT Does PT Have a Latex Allergy? UNKNOWN Elizabeth Brennan MD CHEMISTRY & BLOOD GA S ORDERABLES [facility] * BLOOD CULTURE - [facility] [place] (08/18/2017 8:39 EDT) BLOOD CULTURE - [facility] [place] 08/23/2017 9:05 EDT [facility] BLOOD CULTURE - [facility] [place] NO GROWTH AT 5 DAYS 08/23/2017 9:05 EDT [facility] 08/18/2017 8:39 EDT 08/18/2017 8:42 EDT Comment:PERIP Narrative [facility] - 08/23/2017 9:05 EDT Does PT Have a Latex Allergy? UNKNOWN Elizabeth Brennan MD CHEMISTRY & BLOOD GA S ORDERABLES [facility] * BLOOD CULTURE - [facility] [place] (08/18/2017 7:44 EDT) BLOOD CULTURE - [facility] [place] 08/23/2017 9:05 EDT [facility] BLOOD CULTURE - [facility] [place] NO GROWTH AT 5 DAYS 08/23/2017 9:05 EDT [facility] 08/18/2017 7:44 EDT 08/18/2017 8:39 EDT Comment:PERIP Narrative [facility] - 08/23/2017 9:05 EDT Does PT Have a Latex Allergy? UNKNOWN Elizabeth Brennan MD CHEMISTRY & BLOOD GA S ORDERABLES Performing Organization Address [facility] Co de Phone Number [facility] * SPEC W/O ORDERS - [facility] [place] (08/18/2017 7:44 EDT) SPEC W/O ORDERS - [facility] [place] SEE NOTE 08/18/2017 8:33 EDT [facility] Comment: ?Emergency Room Specimen(s) without Orders These specimens will be discarded in 8 hours: Gold, green, purple, blue, moody on ice, blood cultures x 1 08/18/2017 7:44 EDT 08/18/2017 8:32 EDT Elizabeth Brennan MD CHEMISTRY & BLOOD GA S ORDERABLES [facility] * (ABNORMAL) MAGNESIUM (08/18/2017 7:44 EDT) Magnesium 1.30(L) 1.7 - 2.8 mg/dL 08/18/2017 8:53 EDT [facility] 08/18/2017 7:44 EDT 08/18/2017 8:38 EDT Narrative [facility] - 08/18/2017 8:53 EDT Does PT Have a Latex Allergy? UNKNOWN Elizabeth Brennan MD CHEMISTRY & BLOOD GA S ORDERABLES Performing Organization Address [facility] Co de Phone Number [facility] * LIPASE (08/18/2017 7:44 EDT) Lipase 64 <251 U/L 08/18/2017 8:5 3 EDT [facility] 08/18/2017 7:44 EDT 08/18/2017 8:38 EDT [facility] - 08/18/2017 8:53 EDT Does PT Have a Latex Allergy? UNKNOWN Elizabeth Brennan MD CHEMISTRY & BLOOD GA S ORDERABLES Performing Organization Address [facility] Number [facility] * (ABNORMAL) C REACTIVE PROTEIN (08/18/2017 7:44 EDT) C-Reactive Protein 68.0(H) <10.0 mg/L 08/18/2017 8:53 EDT [facility] 08/18/2017 7:44 EDT 08/18/2017 8:38 EDT [facility] - 08/18/2017 8:53 EDT Does PT Have a Latex Allergy? UNKNOWN Elizabeth Brennan MD CHEMISTRY & BLOOD GA S ORDERABLES Performing Organization Address [facility] Co de Phone Number [facility] * (ABNORMAL) COMPREHENSIVE METABOLIC PANEL (CMP) (08/18/2017 7:44 EDT) Albumin % 4.0 3.4 - 4.9 g/dL 08/18/2017 8:53 EDT [facility] ALKALINE PHOSPHATASE - [facility] 93 38 - 126 U/L 08/18/2017 8:53 EDT [facility] BILIRUBIN TOTAL 1.4(H) 0.2 - 1.3 mg/dL 08/18/2017 8:53 [facility] BUN - [facility] [place] 19 10 - 26 mg/dL 08/18/2017 8:53 [facility] CALCIUM - [facility] [place] 9.5 8.5 - 10.5 mg/dL 08/18/2017 8:53 [facility] Chloride 104 96 - 110 mmol/L 08/18/2017 8:53 [facility] CO2 Total 17(L) 22 - 32 mEq/L 08/18/2017 8:53 [facility] CREATININE 0.86 0.52 - 1.04 mg/dL 08/18/2017 8:53 [facility] eGFR >60 08/18/2017 8:53 [facility] Comment: Chronic renal impairment is defined as GFR <60 Multiply result by 1.210 for patients. eGFR calculated using the IDMS-traceable MDRD Study Equation. ??(effective 01/17/2014) Anion Gap 17 0 - 18 08/18/2017 8:53 [facility] GLUCOSE - [facility] [place] 196(H) 70 - 100 mg/dL 08/18/2017 8:53 [facility] Potassium 4.4 3.5 - 5.0 mEq/L 08/18/2017 8:53 [facility] Sodium 138 136 - 145 mEq/L 08/18/2017 8:53 [facility] TOTAL PROTEIN - [facility] [place] 7.0 6.2 - 8.2 gm/dL 08/18/2017 8:53 [facility] SGOT/AST - [facility] [place] 16 14 - 36 U/L 08/18/2017 8:53 [facility] SGPT/ALT - [facility] [place] 27 9 - 52 U/L 8 8:53 [facility] 08/18/2017 7:44 EDT 08/18/2017 8:38 [facility] - 08/18/2017 8:53 EDT Does PT Have a Latex Allergy? UNKNOWN Elizabeth Brennan MD CHEMISTRY & BLOOD GA S ORDERABLES [facility] * (ABNORMAL) LACTIC ACID SEPSIS REFLEX - [facility] [place] (08/18/2017 7:44 EDT) [facility] LACTIC ACID [facility] 2.8(HH) <2.0 mmol/L 08/18/2017 8:59 EDT [facility] Comment: Result called to WARD BEDOYA/ED 08/18/17 0857: Result called by KWB 08/18/2017 7:44 EDT 08/18/2017 8:39 EDT Narrative [facility] - 08/18/2017 8:59 EDT Does PT Have a Latex Allergy? UNKNOWN Elizabeth Brennan MD CHEMISTRY & BLOOD GA S ORDERABLES Performing Organization Address [facility] Co de Phone Number [facility] * (ABNORMAL) TROPONIN I (08/18/2017 7:44 EDT) [facility] Troponin I (ng/mL) 0.696(HH) 0.000 - 0.034 ng/mL 08/18/2017 9:06 EDT [facility] Comment: Result called to RAMIRO MARS (ER) 08/18/17 0906 Result called by PM Interpretation comments: ??Cutoff for a positive troponin result is set at the 99th percentile of the upper reference limit. ??Elevated troponin must always be interpreted in the context of the clinical presentation. ?Serial troponin testing 3-6 hr from baseline is favored over relying on a single troponin level. 08/18/2017 7:44 EDT 08/18/2017 8:38 EDT Narrative [facility] - 08/18/2017 9:06 EDT Does PT Have a Latex Allergy? UNKNOWN Elizabeth Brennan MD CHEMISTRY & BLOOD GA S ORDERABLES Performing Organization Address [facility]/State/ZIP Co de Phone Number [facility] * (ABNORMAL) COMPLETE BLOOD COUNT AND DIFFERENTIAL (08/18/2017 7:44 EDT) [facility] ABSOLUTE NEUTROPHIL COUN [facility] 9.08(H) 1.7 - 7.0 10e3/ul 08/18/2017 9:03 [facility] BANDS - [facility] [place] 18(H) 0 - 3 % 08/18/2017 9:03 [facility] HEMATOCRIT - [facility] [place] 41.2 34.0 - 47.0 % 08/18/2017 8:49 [facility] HEMOGLOBIN - [facility] [place] 12.2 11.2 - 15.7 g/dl 08/18/2017 8:49 [facility] LYMPH # - [facility] [place] 0.71(L) 0.9 - 2.9 10e3/uL 08/18/2017 9:03 [facility] LYMPHOCYTES - [facility] [place] 7(L) 20 - 40 % 2017 9:03 [facility] MEAN CORPUSCULAR HGB - [facility] [place] 21.2(L) 26 - 34 pg 08/18/2017 8:49 [facility] MEAN CORPUSCULAR HGB CONC - [facility] [place] 29.6(L) 31 - 36 g/dL 08/18/2017 8:49 [facility] MEAN CELL VOLUME - [facility] [place] 71.7(L) 77 - 100 fl 08/18/2017 8:49 [facility] METAMYELOCYTE - [facility] [place] 1 0 - 1 % 08/18/2017 9:03 [facility] MONO # - [facility] [place] 0.30 0.3 - 0.9 10e3/uL 08/18/2017 9:03 [facility] MONOCYTE - [facility] [place] 3 0 - 12 % 8 9:03 [facility] PLATELET COUNT 302 150 - 400 10e3/ul 08/18/2017 8:49 [facility] NEUTROPHILS - [facility] [place] 71 40 - 80 % 2017 9:03 [facility] POLYCHROMASIA - [facility] [place] 1+ 08/18/2017 9:03 [facility] RED BLOOD COUNT - [facility] [place] 5.75(H) 3.8 - 5.2 10e6/ul 08/18/2017 8:49 [facility] RED CELL DISTRI WIDTH - [facility] [place] 18.1(H) 11.8 - 15.6 % 08/18/2017 8:49 EDT [facility] WHITE BLOOD COUNT - [facility] [place] 10.2 3.5 - 10.5 10e3/ul 08/18/2017 8:49 EDT [facility] 08/18/2017 7:44 EDT 08/18/2017 8:39 EDT Narrative [facility] - 08/18/2017 9:03 EDT Does PT Have a Latex Allergy? UNKNOWN Elizabeth Brennan MD PACKAGES & DNA PROBE ORDERABLES [facility] documented in this encounter Visit Diagnoses Not on filedocumented in this encounter Care Teams Battery Tester Relationship Specialty Start Date End Date Elizabeth Dsouza MD [address] [facility] [place] [phone] PCP - General 02/13/12 documented as of this encounter
--- OUTSIDE RECORDS SUMMARY | 2023-12-04 21:47 | XMS_ITS | Encounter Summary ---
Author Organization [facility] Address [address] [place] [address] Care Team Providers Care Double End Trimmer Name Role Phone Elizabeth Dsouza MD Primary Care Provider [phone] Encounter Details Date Type Department Care Team (Late st Contact Info) Description 03/01/2022 Lab Requisition [facility] Pathology & Laboratory Medicine - [facility] [address] [place] [address] Raissa Rader MD [address] [place] [phone] Encounter for other general examination Social History Tobacco Use Types Packs/Day Years [...] Procedure Name Priority Date/Time Associated Diagnosis Comments SURGICAL PATHOLOGY Today 03/01/2022 9: 38 EST Encounter for other general examination documented in this encounter Results * SURGICAL PATHOLOGY (03/01/2022 9:38 EST) Note to Patient The following pathology results have been interpreted by your pathologist and may be available to you before your health provider has had the opportunity to review them. Please allow time for your provider to receive these results and explore management options, if applicable. 03/05/2022 13:21 [facility] Final Diagnosis A. SKIN AND CONJUNCTIVA OF EYELID, LEFT LOWER, EXCISION: - Follicular cyst, infundibular type, with evidence of rupture. 03/05/2022 13:21 [facility] Attestation By the signature below, the attending physician certifies that they have 1) personally conducted a gross and/or microscopic examination of the described specimen(s), and/or personally interpreted the results of laboratory testing of the described specimen(s), and 2) personally rendered or confirmed the above diagnosis. 03/05/2022 13:21 [facility] at 1321 Clinical History ? purfed cyst; clinically was very firm but filled with pus 03/05/2022 13:21 [facility] Gross Description A. Received in formalin labelled with proper patient identification (initials B, C) and left lower lid is a partially ruptured cystic structure (1.4 x 1.1 x 1.0 cm ) without any recognizable overlying ellipse of skin. The cyst contains white friable material, and the inner lining is ruptured with a wall thickness measuring 0.1 cm. The margins are inked blue. A business development representative section is submitted as A1. BROOKE ARAGON 03/04/2022 6:20 03/05/2022 13:21 [facility] Performing Lab [facility] 03/05/2022 13:21 [facility] Scanned Images 03/05/2022 13:21 [facility] Tissue TISSUE SPECIMEN FROM SKIN / Unknown 03/01/2022 9:38 EST 03/01/2022 19:17 EST Raissa Rader MD PATHOLOGY ORDERABL ES [facility] [address] [place] [address] documented in this encounter Visit Diagnoses Diagnosis Encounter for other general examination documented in this encounter Care Teams Double End Trimmer Relationship Specialty Start Date End Date Elizabeth Dsouza MD [address] [place] [phone] PCP - General 02/13/12 documented as of this encounter
--- OUTSIDE RECORDS SUMMARY | 2023-12-04 21:47 | XMS_ITS | Encounter Summary ---
Author Organization [facility] Address [address] [place] [address] Care Team Providers Care Wind Site Manager Name Role Phone Unavailable Primary Care Provider Unavailabl e Encounter Details Date Type Department Care Team (Latest Contact Info) Description 05/20/2002 8:39 EST - 05/20/2002 11:59 EST Hospital Encounter [facility] - Other [address] [place] [id number] Ferdinand Richey MD Unknown, Provider, Discharge Disposition: Auto Discharge Social History Tobacco Use Types Packs/Day Years Used Date Smoking Tobacco: Never Assessed Sex and Gender Information Value Date Recorded Sex Assigned at Not on file Gender Identity Female 01/04/2021 7:40 EDT Sexual Orientation Not on file documented as of this encounter Discharge Disposition Disposition Code Departure Means Destination Auto Discharge documented in this encounter Plan of Treatment Not on file documented as of this encounter Procedures Procedure Name Priority Date/Time Associated Diagnosis Comments CYTOPATHOLOGY Routine 05/20/2002 0:00 EST documented in this encounter Results * CYTOPATHOLOGY (05/20/2002 0:00 EST) Pathology Report: CYTOPATHOLOGY REPORT Reports generated via electronic interface contain original data; however they are lacking the format of the original report. Caution should be taken when reading/interpreti ng unformatted reports. Name: ? NAVIN CLIFFORD ? Accession #: ? [id number] : ? 1955 (Age: 46) ??F ?Collect Date: ? 05/20/2002 Location: ? [facility] ? Receive Date: ? 05/24/2002 Provider: ?FERDINAND RICHEY MD Copy to: ? Specimen/Source: ?ThinPrep Pap Test, Cervix Last Menstrual Period: ? SPECIMEN ADEQUACY ? Satisfactory for Evaluation - transformation zone component present - scant squamous epithelial component secondary to excessive blood GENERAL CATEGORIZATION ? Epithelial Cell Abnormality INTERPRETATION ? Glandular Cell Abnormality - Atypical endometrial cells. Trichomonas vaginalis present. EDUCATIONAL NOTES/RECOMMENDATI ONS ? [facility] recommends following the 2001 Consensus Guidelines for the Management of Women with Cervical Cytological Abnormalities (RADHA,2002;287:212 0-9). Management algorithms have been distributed by [facility] and are available online at [email or web address]. ? Document reviewed and electronically signed by: ? JONNY WADDELL MD [facility] ? Report Date: ??05/31/2002 15:45 End of Report [facility]ANT[facility] HERNANDEZ 05/20/2002 05/24/2002 Ferdinand Richey MD PATHOLOGY ORDERABLES [facility] [address] [place] [address] documented in this encounter Visit Diagnoses Not on filedocumented in this encounter
--- OUTSIDE RECORDS SUMMARY | 2023-12-04 21:47 | XMS_ITS | Encounter Summary ---
Author Organization [facility] Address [address] [place] [address] Care Team Providers Care Overlock Sleeve Setter Name Role Phone Elizabeth Dsouza MD Primary Care Provider [phone] Encounter Details Date Type Department Care Team (Late st Contact Info) Description 08/20/2017 Historical Results Only [facility] - [address] [address] Les Galvan MD [address] [place] [phone] Social History Tobacco Use Types Packs/Day [...] Comments COMPLETE BLOOD COUNT AND DIFFERENTIAL Routine 08/20/2017 6:30 EDT C REACTIVE PROTEIN Routine 08/20/2017 6: 30 EDT MAGNESIUM Routine 08/20/2017 6:30 EDT BASIC METABOLIC PANEL (BMP) Routine 08/20/2017 6:30 EDT documented in this encounter Results * MAGNESIUM (08/20/2017 6:30 EDT) Pathologist [facility] Magnesium 1.90 1.7 - 2.8 mg/dL 08/20/2017 [facility] 08/20/2017 6:30 EDT 08/20/2017 6:55 EDT [facility] - 08/20/2017 14:29 EDT AOT: 08/20/17 1348: CRP Les An MD CHEMISTRY & BLOOD GAS ORDERABLES [facility] * (ABNORMAL) C REACTIVE PROTEIN (08/20/2017 6:30 EDT) [facility] C-Reactive Protein 372.6(H) <10.0 mg/L 08/20/2017 14[facility] 08/20/2017 6:30 EDT 08/20/2017 6:55 EDT [facility] - 08/20/2017 14:29 EDT AOT: 08/20/17 1348: CRP Les An MD CHEMISTRY & BLOOD GAS ORDERABLES [facility] * (ABNORMAL) BASIC METABOLIC PANEL (BMP) (08/20/2017 6:30 EDT) Pathologist [facility] BUN - [facility] 23 10 - 26 mg/dL 08/20/2017 7[facility] CALCIUM - CV 8.2(L) 8.5 - 10.5 mg/dL 08/20/2017 7:34 [facility] Chloride 110 96 - 110 mmol/L 08/20/2017 7:34 [facility] CO2 Total 20(L) 22 - 32 mEq/L 08/20/2017 7:34 [facility] CREATININE 0.92 0.52 - 1.04 mg/dL 08/20/2017 7:34 [facility] eGFR >60 08/20/2017 7:34 EDT [facility] Comment: Chronic renal impairment is defined as GFR <60 Multiply result by 1.210 for patients. eGFR calculated using the IDMS-traceable MDRD Study Equation. ??(effective 01/17/2014) Anion Gap 8 0 - 18 08/20/2017 7:34 [facility] GLUCOSE - [facility] 119(H) 70 - 100 mg/dL 08/20/2017 7:34 [facility] Potassium 3.7 3.5 - 5.0 mEq/L 08/20/2017 7:34 [facility] Sodium 138 136 - 145 mEq/L 08/20/2017 7:34 [facility] 08/20/2017 6:30 EDT 08/20/2017 6:55 EDT [facility] - 08/20/2017 14:29 EDT AOT: 08/20/17 1348: CRP Les An MD CHEMISTRY & BLOOD GAS ORDERABLES [facility] * (ABNORMAL) COMPLETE BLOOD COUNT AND DIFFERENTIAL (08/20/2017 6:30 EDT) ABSOLUTE NEUTROPHIL COUN - [facility] 5.43 1.7 - 7.0 10e3/ul 08/20/2017 7:54 [facility] BANDS - [facility] 15(H) 0 - 3 % 08/20/2017 7:54 [facility] ELLIPTOCYTES - [facility] RARE 08/20/2017 7:54 [facility] EOS # - [facility] 0.05 0.05 - 0.5 10e3/uL 08/20/2017 7:54 [facility] EOSINOPHILS - [facility] 1 0 - 5 % 2017 7:54 [facility] HEMATOCRIT - [facility] 31.2(L) 34.0 - 47.0 % 08/20/2017 7:04 [facility] HEMOGLOBIN - [facility] 9.0(L) 11.2 - 15.7 g/dl 08/20/2017 7:04 [facility] HYPOCHROMASIA - [facility] 1+ 08/20/2017 7:54 [facility] LYMPH # - [facility] 0.35(L) 0.9 - 2.9 10e3/uL 08/20/2017 7:54 [facility] LYMPHOCYTES - [facility] 6(L) 20 - 40 % 2017 7:54 [facility] MEAN CORPUSCULAR HGB - [facility] 20.6(L) 26 - 34 pg 08/20/2017 7:04 [facility] MEAN CORPUSCULAR HGB CONC - [facility] 28.8(L) 31 - 36 g/dL 08/20/2017 7:04 [facility] MEAN CELL VOLUME - [facility] 71.6(L) 77 - 100 fl 08/20/2017 7:04 [facility] METAMYELOCYTE - [facility] 1 0 - 1 % 08/20/2017 7:54 [facility] PLATELET COUNT 145(L) 150 - 400 10e3/ul 08/20/2017 7:04 [facility] NEUTROPHILS - [facility] 77 40 - 80 % 2017 7:54 [facility] RED BLOOD COUNT - [facility] 4.36 3.8 - 5.2 10e6/ul 08/20/2017 7:04 [facility] RED CELL DISTRI WIDTH - [facility] 18.4(H) 11.8 - 15.6 % 08/20/2017 7:04 [facility] WHITE BLOOD COUNT - [facility] 5.9 3.5 - 10.5 10e3/ul 08/20/2017 7:04 [facility] 08/20/2017 6:30 EDT 08/20/2017 6:55 EDT Les An MD PACKAGES & DNA PROBE ORDERABLES [facility] documented in this encounter Visit Diagnoses Not on filedocumented in this encounter Care Teams Overlock Sleeve Setter Relationship Specialty Start Date End Date Elizabeth Dsouza MD [address] [place] [address] PCP - General 02/13/12 documented as of this encounter
--- OUTSIDE RECORDS SUMMARY | 2023-12-04 21:47 | XMS_ITS ---
Author Organization Unknown Address [address] [place] [phone] Phone Care Team Providers Care Construction Services Technician Name Role Phone AMINAH Lai SENIOR LOSS CONTROL SPECIALIST Attending Unavailable LETITIA RANDALL Primary Unavailable Immunization [...] em Smoking History Current every day smoker [id number] SNOMED CT Sex Female Assessment You had [...] Date Status Code Code System NIDDM active 41880389 SNOMED-CT CAD active 98597633 SNOMED-CT MYOCARDIAL INFARCT active 68056287 S NOMED-CT GERD active 060218107 SNOMED-CT DEPRESSION active 11356548 SNOMED-CT HIGH CHOLESTEROL 05/01/2023 resolved 18567608 SN OMED-CT STENTED ARTERY 05/01/2023 resolved 915074488 SNOM ED-CT COPD 05/01/2023 resolved 65219097 SNOMED-CT Allergies and Adverse Reactions Allergy Substance Reaction Severity Start Date Concern Status Code Code Syste m MORPHINE Vomiting (SNOMED-CT: 034591769) Moderate Active 7052 RxNorm LATEX Active 5092410 RxNorm BAND-AID BRAND ADHESIVE BANDAGES Moderate Active 0803172 RxNorm Plan of Treatment MRI L SPINE [...]
--- OUTSIDE RECORDS SUMMARY | 2023-12-04 21:47 | XMS_ITS | Encounter Summary ---
Author Organization [facility] Address [address] [place] [address] Care Team Providers Care Rail Car Painter/Sandblaster Name Role Phone Unknown, Provider Primary Care Provider Encounter Details Date Type Department Care Team (Late st Contact Info) Description 02/11/2012 Results Only [facility] Laboratory Services - [facility] ([facility]) [address] [place], [place] [address] Elizabeth Dong MD [address] [place] [phone] Social History Tobacco Use Types Packs/Day [...] Priority Date/Time Associated Diagnosis Comments SURGICAL PATHOLOGY Routine 02/11/2012 0:00 EST documented in this encounter Results * SURGICAL PATHOLOGY (02/11/2012 0:00 EST) Pathology Report: SURGICAL PATHOLOGY REPORT Reports generated via electronic interface contain original data; however they are lacking the format of the original report. Caution should be taken when reading/interpreting unformatted reports. Name: ? VIKRAM CLIFFORD ? Accession #: ? [id number] ? : ? 1955 (Age: 56) ??F ? Collect Date: ? 02/11/2012 ? Location: ? [facility] ? Receive Date: ? 02/12/2012 ? Provider: ELIZABETH DONG MD Copy to: ? Final Pathologic Diagnosis: ? Skin of forearm, right, excisional biopsy: 1. ?Prurigo nodularis. ??See comment. ? 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 ? Comment: ? The biopsy shows features of prurigo nodularis; that is, changes secondary to chronic rubbing/irritation. There is no evidence of malignancy. ??(Dr. Aiken)/[facility] Microscopic Description: ? The stratum corneum is thickened by orthohyperkeratosis with foci of parakeratosis and scale crust. ??The epidermis shows marked irregular hyperplasia with elongate and thickened rete ridges. ??The keratinocytes show mild reactive changes with an accentuated granular layer. ??The dermal papillae are widened by thick bundles of collagen oriented in a vertical array. There is mild chronic inflammation. ??(Dr. Aiken)/[facility] Document reviewed and electronically signed by: ISAAC AIKEN MD Report ??Date: 02/14/2012 16:35 By the signature above, the attending physician certifies that he/she has personally conducted a gross and/or microscopic examination of the described specimens and rendered or confirmed the above diagnosis. Specimen(s) Received: ? Excisional biopsy R forearm Clinical History: ? Non-healing lesion R forearm Gross Description: ? Received in formalin labelled Vikram Clifford and R forearm is an unoriented elliptical excision of scott, hairbearing skin measuring 1.8 x 0.9 cm and is excised to a depth of 0.3 cm. ??There is a central 0.7 x 0.6 x 0.1 cm ovoid franco-white crusted papule. ??The margins are inked. ??The specimen is serially sectioned and entirely submitted as (A1) and (A2) central sections and (A3) tips, reverse en face. (Louis Meraz)/mpl End of Report CHANTEL HERNANDEZ 02/11/2012 02/12/2012 19: 42 EST Elizabeth Dong MD PATHOLOGY ORDERABLES CHANT[facility] HERNANDEZ [address] [place] [address] documented in this encounter Visit Diagnoses Not on filedocumented in this encounter Care Teams Rail Car Painter/Sandblaster Relationship Specialty Start Date End Date Unknown, Provider, PCP - General 02/12/12 02/12/12 documented as of this encounter
--- OUTSIDE RECORDS SUMMARY | 2023-12-04 21:47 | XMS_ITS | Encounter Summary ---
Author Organization [facility] Address [address] [place] [address] Care Team Providers Care Shop Lead Name Role Phone Elizabeth Dsouza MD Primary Care Provider [phone] Encounter Details Date Type Department Care Team (Late st Contact Info) Description 01/03/2022 Prep for Procedure [facility] Endoscopy [address] [place] [address] Jame Mijares MD [address] [place] [address] [address] [place] [address] Social History Tobacco Use Types Packs/Day Years [...] 16:51 EDT documented as of this encounter Functional Status Functional Status Response Date of Assess ment Are you deaf or do you have serious difficulty h earing? No 12/28/2021 documented as of this encounter Plan of Treatment Not on file documented as of this encounter Visit Diagnoses Not on filedocumented in this encounter Care Teams Shop Lead Relationship Specialty Start Date End Date Elizabeth Dsouza MD [address] [place] [phone] PCP - General 02/13/12 documented as of this encounter
--- OUTSIDE RECORDS SUMMARY | 2023-12-04 21:47 | XMS_ITS | Encounter Summary ---
Author Organization [facility] Address [address] [place] [address] Care Team Providers Care Field Sales Specialist Name Role Phone Elizabeth Dsouza MD Primary Care Provider [phone] Encounter Details Date Type Department Care Team (Latest Contact Info) Description 12/28/2021 Travel Social History Tobacco Use Types Packs/Day Years [...] on filedocumented in this encounter Care Teams Field Sales Specialist Relationship Specialty Start Date End Date Elizabeth Dsouza MD [address] [place] [address] PCP - General 02/13/12 documented as of this encounter
--- OUTSIDE RECORDS SUMMARY | 2023-12-04 21:47 | XMS_ITS | Encounter Summary ---
Author Organization [facility] Address [address] [place] [address] Care Team Providers Care Home Therapy Teacher Name Role Phone Elizabeth Dsouza MD Primary Care Provider [phone] Encounter Details Date Type Department Care Team (Latest Contact Info) Description 08/18/2017 11:06 EDT - 08/18/2017 23:59 EDT Hospital Encounter [address] [address] Unknown, Provider, Discharge Disposition: Home or Self Care Social History Tobacco Use Types Packs/Day Years Used Date Smoking Tobacco: Never Assessed Sex and Gender Information Value Date Recorded Sex Assigned at Not on file Gender Identity Female 01/04/2021 7:40 EDT Sexual Orientation Not on file documented as of this encounter Discharge Disposition Disposition Code Departure Means Destination Home or Self [facility] documented in this encounter Plan of Treatment Not on file documented as of this encounter Visit Diagnoses Not on filedocumented in this encounter Care Teams Home Therapy Teacher Relationship Specialty Start Date End Date Elizabeth Dsouza MD [address] [place] [phone] PCP - General 02/13/12 documented as of this encounter
--- OUTSIDE RECORDS SUMMARY | 2023-12-04 21:47 | XMS_ITS | Encounter Summary ---
Author Organization [facility] Address [address] [place] [address] Care Team Providers Care Medical Liaison Name Role Phone Elizabeth Dsouza MD Primary Care Provider [phone] Reason for Visit * Reason Onset Date Comments Appointment Related 03/24/2020 Encounter Details Date Type Department Care Team (Late st Contact Info) Description 03/24/[address] [facility] Vascular Surgery - [address] [phone] Acosta Christine MD [address] [facility], [address] [place] [address] Appointment Related Social History Tobacco Use Types Packs/Day Years Used Date Smoking Tobacco: Never Assessed Interpersonal Safety Answer Date Record ed Physically Hurt Never 10/17/2019 Verbally Threaten Not on file 10/17/2019 Sex and Gender Information Value Date Recorded Sex Assigned at Not on file Gender Identity Female 01/04/2021 7:40 EDT Sexual Orientation Not on file documented as of this encounter Miscellaneous Notes * Telephone Encounter - Janis Velazquez - 03/24/2020 0757 EST Vascular ultrasound and consult with Dr. Christine have been cancelled per patients' request via PAS message. * Telephone Encounter - Rebecca Jimenez - 03/24/2020 0733 EST PAS Message:Pt. Called at 7:30am today to cancel lupis. Today at 11:30 with Emmett. Reason-no ride. She will call to reschedule. documented in this encounter Plan of Treatment Not on file documented as of this encounter Visit Diagnoses Not on filedocumented in this encounter Care Teams Medical Liaison Relationship Specialty Start Date End Date Elizabeth Dsouza MD [address] [place] [phone] PCP - General 02/13/12 documented as of this encounter
--- OUTSIDE RECORDS SUMMARY | 2023-12-04 21:47 | XMS_ITS | Encounter Summary ---
Author Organization [facility] Address [address] [place] [address] Care Team Providers Care Portfolio Strategist Name Role Phone Elizabeth Dsouza MD Primary Care Provider [phone] Encounter Details Date Type Department Care Team (Late st Contact Info) Description 03/23/2020 Lab Requisition [facility] Pathology & Laboratory Medicine - [facility] [address] [place], [place] [address] Elizabeth Dsouza MD [address] [place] [phone] Encounter for general adult medical examination [...] Date/Time Associated Diagnosis Comments PAP TEST Today 03/21/2020 10:00 EST Encounter for general adult medical examination without abnormal findings Encounter for screening for malignant neoplasm of cervix HPV DNA DETECTION WITH GENOTYPING, PCR Today 03/21/2020 10:00 EST Encounter for general adult medical examination without abnormal findings Encounter for screening for malignant neoplasm of cervix documented in this encounter Results * (ABNORMAL) HUMAN PAPILLOMAVIRUS (HPV) DETECTION-HIGH RISK TYPES (03/21/2020 10:00 EST) HPV other High Risk types, PCR Positive( A) Negative 04/11/2020 7:57 [facility] Comment:E6 OR E7 mRNA from o ne or more types of HPV types 16,18,31,33,35,39,45,51,52,56,58,59,66, and 68 is detected by regrinder mediated amplification. High and intermediate risk HPV types are associated with most squamous intraepithelial lesions and cervical cancers. Papanicolaou smear specimen (specimen) CERVIX UTERI STRUCTURE / Unknown 03/21/2020 10:00 EST 04/03/2020 10:59 EST Elizabeth Dsouza MD MICROBIOLOGY - [facility] AL ORDERABLES Performing Organization Address City/State/[facility] Co de Phone Number [facility] [address] [place] [phone] * PAP TEST (03/21/2020 10:00 EST) Specimens A. Cervix and/or Endocervix , ThinPrep Imaging System with Manual Evaluation 04/11/2020 7:57 [facility] Specimen Adequacy Satisfactory for Evaluation - transformation zone component present 04/11/2020 7:57 [facility] General Categorization Epithelial Cell Abnormality 04/11/2020 7:57 [facility] Descriptive Diagnosis Squamous Cell Abnormality - Low grade squamous intraepithelial lesion (LSIL). Shift in marielos present suggestive of bacterial vaginosis. 04/11/2020 7:57 [facility] Educational Comments [facility] recommends following ASCCP's 2012 Updated Consensus Guidelines for the Management of Abnormal Cervical Cancer Screening Tests and Cancer Precursors (JLGTD, 2013; 17(5):S1-S27). Consensus guidelines are available online at www.asccp.org. 04/11/2020 7:57 [facility] Attestation By the signature below, the attending physician certifies that they have personally conducted a gross and/or microscopic examination of the described specimens and rendered or confirmed the above diagnosis. 04/11/2020 7:57 [facility] at 0757 Clinical History See below 04/11/19 7:57 [facility] HPV The result for the Human Papillomavirus (HPV) Detection-High Risk Types is Positive . E6 OR E7 mRNA from one or more types of HPV types 16,18,31,33,35,39 ,45,51,52,56,58,5 9,66, and 68 is detected by regrinder mediated amplification. High and intermediate risk HPV types are associated with most squamous intraepithelial lesions and cervical cancers. Testing was performed on specimen [id number] and was resulted on 04/11/2020 0724 EST by ÁLVARO, LAB INSTRUMENT RESULTS IN 04/11/2020 7:57 [facility] Performing Lab [facility] 04/11/2020 7:57 [facility] Scanned Images 04/11/2020 7:57 [facility] Papanicolaou smear specimen (specimen) CERVIX UTERI STRUCTURE / Unknown 03/21/2020 10:00 EST 03/23/2020 13:13 EST Elizabeth Dsouza MD PATHOLOGY ORDERABLES [facility] [address] [place] [address] documented in this encounter Visit Diagnoses Diagnosis Encounter for general adult medical examination without abnormal findings Unspecified general medical examination Encounter for screening for malignant neoplasm of cervix Screening for malignant neoplasm of the cervix documented in this encounter Care Teams Portfolio Strategist Relationship Specialty Start Date End Date Elizabeth Dsouza MD [address] [place] [address] PCP - General 02/13/12 documented as of this encounter
--- OUTSIDE RECORDS SUMMARY | 2023-12-04 21:47 | XMS_ITS | Encounter Summary ---
Author Organization [facility] Address [address] [place] [address] Care Team Providers Care Program Manager Transportation Name Role Phone Elizabeth Dsouza MD Primary Care Provider [phone] Reason for Referral * Vascular Lab (Routine) - Authorization Not Required Specialty Diagnoses / Procedures Referred By Loli rose Referred To Contact Diagnoses Arterial bruit Procedures US LOWER ARTERIAL DUPLEX US UPPER ARTERIAL DUPLEX Elizabeth Dsouza MD [address] [place] [address] Referral ID Status Reason Start Date Expiration Date Visits Requested Visits Authorized [id number] Authorization Not Required 0 1 1 Encounter Details Date Type Department Care Team (Latest Contact Info) Description 12/27/2019 Transcribe Orders [facility] Vascular Surgery - [facility] [address] [place], [place] [address] Elizabeth Dsouza MD [address] [place] [address] Arterial bruit (Primary Dx) Social History Tobacco Use Types [...] Type Priority Associated Diagnoses Orde r Schedule US LOWER ARTERIAL DUPLEX Vascular Ultrasound Routine Arterial bruit 03/07/2020 documented as of this encounter Visit Diagnoses Diagnosis Arterial bruit- Primary Other symptoms involving cardiovascular system documented in this encounter Care Teams Program Manager Transportation Relationship Specialty Start Date End Date Elizabeth Dsouza MD [address] [place] [phone] PCP - General 02/13/12 documented as of this encounter
--- OUTSIDE RECORDS SUMMARY | 2023-12-04 21:47 | XMS_ITS | Encounter Summary ---
Author Organization [facility] Address [address] [place] [address] Care Team Providers Care Ethnology Teacher Name Role Phone Elizabeth Dsouza MD Primary Care Provider [phone] Encounter Details Date Type Department Care Team (Late st Contact Info) Description 08/21/2017 Historical Results Only [facility] - [place] [phone] Les Galvan MD [address] [place] [phone] Social History Tobacco Use Types Packs/Day [...] COMPLETE BLOOD COUNT WITH DIFFERENTIAL (AUTO) Routine 08/21/2017 6:30 EDT documented in this encounter Results * (ABNORMAL) COMPLETE BLOOD COUNT WITH DIFFERENTIAL (AUTO) (08/21/2017 6:30 EDT) ABSOLUTE NEUTROPHIL COUN - [facility] 6.58 1.7 - 7.0 10e3/ul 08/21/2017 7:18 EDT [facility] BASO # - [facility] 0.01 0.0 - 0.3 10e3/uL 08/21/2017 7:18 [facility] BASO % - [facility] 0 0 - 2 % 08/21/2017 7:18 [facility] EOS # - [facility] 0.14 0.05 - 0.5 10e3/uL 08/21/2017 7:18 [facility] EOS % - [facility] 2 0 - 5 % 08/21/2017 7:18 [facility] GRAN % - [facility] 81(H) 40 - 80 % 08/21/2017 7:18 [facility] HEMATOCRIT - [facility] 30.9(L) 34.0 - 47.0 % 08/21/2017 7:18 [facility] HEMOGLOBIN - [facility] 8.9(L) 11.2 - 15.7 g/dl 08/21/2017 7:18 [facility] IG# - [facility] 0.02 0 - 0.07 10e3/uL 08/21/2017 7:18 [facility] IG% - [facility] 0.2 0 - 0.9 % 08/21/2017 7:18 [facility] LYMPH # - [facility] 0.70(L) 0.9 - 2.9 10e3/uL 08/21/2017 7:18 [facility] LYMPH% - [facility] 9(L) 20 - 40 % 08/21/2017 7:18 [facility] MEAN CORPUSCULAR HGB - [facility] 20.6(L) 26 - 34 pg 08/21/2017 7:18 [facility] MEAN CORPUSCULAR HGB CONC - [facility] 28.8(L) 31 - 36 g/dL 08/21/2017 7:18 [facility] MEAN CELL VOLUME - [facility] 71.7(L) 77 - 100 fl 08/21/2017 7:18 [facility] MONO # - [facility] 0.65 0.3 - 0.9 10e3/uL 08/21/2017 7:18 [facility] MONO% - [facility] 8 0 - 12 % 08/21/2017 7:18 [facility] PLATELET COUNT 172 150 - 400 10e3/ul 08/21/2017 7:18 EDT [facility] RED BLOOD COUNT - [facility] 4.31 3.8 - 5.2 10e6/ul 08/21/2017 7:18 EDT [facility] RED CELL DISTRI WIDTH - [facility] 18.4(H) 11.8 - 15.6 % 08/21/2017 7:18 EDT [facility] WHITE BLOOD COUNT - [facility] 8.1 3.5 - 10.5 10e3/ul 08/21/2017 7:18 EDT [facility] 08/21/2017 6:30 EDT 08/21/2017 7:00 EDT Les An MD HEMATOLOGY & PF4 ORDERABLES [facility] documented in this encounter Visit Diagnoses Not on filedocumented in this encounter Care Teams Ethnology Teacher Relationship Specialty Start Date End Date Elizabeth Dsouza MD [address] [place] [phone] PCP - General 02/13/12 documented as of this encounter
--- OUTSIDE RECORDS SUMMARY | 2023-12-04 21:47 | XMS_ITS | Encounter Summary ---
Author Organization [facility] Address [address] [place] [address] Care Team Providers Care Studio Set Up Worker Name Role Phone Elizabeth Dong MD Primary Care Provider [phone] Encounter Details Date Type Department Care Team (Late st Contact Info) Description 12/16/2013 Results Only [facility] - [facility] ([facility]) [address], [place] [id number] Elizabeth Dong MD [address] [place] [phone] Social History Tobacco Use Types Packs/Day Years Used Date Smoking Tobacco: Never Assessed Sex and Gender Information Value Date Recorded Sex Assigned at Not on file Gender Identity Female 01/04/2021 7:40 EDT Sexual Orientation Not on file documented as of this encounter Plan of Treatment Not on file documented as of this encounter Procedures Procedure Name Priority Date/Time Associated Diagnosis Comments PAP TEST- RESULT ONLY Routine 12/16/2013 0:00 EDT documented in this encounter Results * PAP TEST- RESULT ONLY (12/16/2013 0:00 EDT) Pathology Report: CYTOPATHOLOGY REPORT Reports generated via electronic interface contain original data; however they are lacking the format of the original report. Caution should be taken when reading/interpreti ng unformatted reports. Name: ? CLIFFORD, VIKRAM L ? Accession #: ? [id number] ? : ? 1955 (Age: 58) ??F ?Collect Date: ? 12/16/2013 ? Location: ? [facility] ? Receive Date: ? 12/20/2013 ? Provider: ELIZABETH DONG MD Copy to: ? Final Report SPECIMEN ADEQUACY ? Satisfactory for Evaluation - transformation zone component present GENERAL CATEGORIZATION ? Epithelial Cell Abnormality INTERPRETATION ? Squamous Cell Abnormality - Low grade squamous intraepithelial lesion (LSIL). EDUCATIONAL NOTES/RECOMMENDATI ONS ? FOR[facility]LY [facility] recommends following ASCCP's 2012 Updated Consensus Guidelines for the Management of Abnormal Cervical Cancer Screening Tests and Cancer Precursors (JLGTD, 2013; 17(5):S1-S27). ??Consensus guidelines are available online at www.asccp.org. Previous Gynecologic Pathology: RBIAN Treatment History: Cryotherapy: Hx for dysplasia Specimen/Source: ??Pap Test, Cervix/Endocervix, ThinPrep Imaging System with manual evaluation Document reviewed and electronically signed by: ? NATASHA CHAU MD ? Report ??Date: 12/28/2013 15:03 HPV with Pap Test ? Date Ordered: ? 12/28/2013 ? Status: ?? Signed Out ?Date Complete: ? 12/30/2013 ? By: ??System Interface ? Date Reported: ? 12/30/2013 ? Interpretation RESULT: Positive for high or intermediate risk HPV. E6 OR E7 mRNA from one or more types of HPV types 16,18,31, 33,35,39,45,51,52, 56,58,59,66, and 68 is detected by production mechanic tin cans mediated amplification. High and intermediate risk HPV types are associated with most squamous intraepithelial lesions and cervical cancers. Comments Document reviewed and electronically signed by: ? System Interface ? Report date: 12/30/2013 By the signature above, the attending physician certifies that he/she has personally conducted a gross and/or microscopic examination of the described specimens and rendered or confirmed the above diagnosis. End of Report [facility] 12/16/2013 12/20/2013 Elizabeth Dong MD PATHOLOGY ORDERABLES Performing Organization Address City/State/[facility] Co de Phone Number [facility] [address] [place] [address] documented in this encounter Visit Diagnoses Not on filedocumented in this encounter Care Teams Studio Set Up Worker Relationship Specialty Start Date End Date Elizabeth Dong MD [address] [place] [phone] PCP - General 02/13/12 documented as of this encounter
--- OUTSIDE RECORDS SUMMARY | 2023-12-04 21:47 | XMS_ITS | Encounter Summary ---
Author Organization [facility] Address [address] [place] [address] Care Team Providers Care Obiee Report Developer Name Role Phone Elizabeth Dsouza MD Primary Care Provider [phone] Encounter Details Date Type Department Care Team (Late st Contact Info) Description 08/22/2017 Historical Results Only [facility] - [facility] Radiology Results [address] [place] [address] Belkis Valdez MD [address] [place] [address] Social History Tobacco Use Types Packs/Day Years Used Date Smoking Tobacco: Never Assessed Sex and Gender Information Value Date Recorded Sex Assigned at Not on file Gender Identity Female 01/04/2021 7:40 EDT Sexual Orientation Not on file documented as of this encounter Plan of Treatment Not on file documented as of this encounter Procedures Procedure Name Priority Date/Time Associated Diagnosis Comments HISTORICAL STRESS TEST 08/22/2017 10:00 EDT NM CARD SPECT NUCLEAR STRESS 08/22/2017 9:16 EDT COMPLETE BLOOD COUNT AND DIFFERENTIAL Routine 08/22/2017 6:30 EDT MAGNESIUM Routine 08/22/2017 6:30 EDT BASIC METABOLIC PANEL (BMP) Routine 08/22/2017 6:30 EDT documented in this encounter Results * HISTORICAL STRESS TEST (08/22/2017 10:00 EDT) Anatomical Region Laterality Modality Nuclear Stress 08/22/2017 10:0 0 EDT Narrative 08/22/2017 10:00 EDT ? [facility] ?[facility] ?[address] [place] [address] ? [id number] ?C A R D I A C ?S T R E S S ?T E S T ?R E P O R T NAME: MELODIE CLIFFORD ? : 57 TELEPHONE: [phone] ? MR#: [id number] ? *[facility] [place] [facility]* *[facility]* [address] [place] [address] Myocardial Perfusion Imaging - SPECT Regadenoson Date of study: ??08/22/2017 *PATIENT PRESENTATION* Height: ? 154.9cm (61in) Blood Pressure: Weight: ? 84.5kg (186lb) BSA: ?1.95m S 2 Ordering physician: Belkis Valdez Impressions: - Abnormal study after pharmacologic stress. - Small apical ischemia. Medical therapy CAD reasonable. Summary: 1. Myocardial perfusion imaging: There is a small sized, moderately ?? intense, partially reversible defect involving the apical wall(s). ?? This suggests small ischemia in the distribution of the left anterior ?? descending coronary artery. Overall ischemia: small. 2. The calculated left ventricular ejection fraction after stress: 74%. ?? No left ventricular regional motion abnormality. Indication: ?? NSTEMI. History: ??ADMITTED TO [facility] 08/18/17 WITH LEFT SIDED ABD. PAIN. DIAGNOSED WITH SEVERE SEPSIS FROM ACUTE DIVERTICULITIS WITH MICROPERFORATION. TROPS PEAKED AT 1.9, ECG WITH SLIGHT ST DEPRESSION IN LATERAL LEADS. PATIENT SMOKES 1 1/2 PPD OF CIGARETTES. 08/18/17- ECHO- LVEF 60-65%, NO WMA. 1995- STENTS X 2. ??Risk factors: ??Current tobacco use. Obesity. MEDS: SEE E-CLINICAL. Imaging Technique: Protocol: ??Regadenoson. Acquisition: ?? Gated SPECT; 1 day - rest/stress. ?The patient was ? [facility] ?[facility] ?[facility] [address], [place] [address] ? [id number] ?C A R D I A C ?S T R E S S ?T E S T ?R E P O R T NAME: CLIFFORDDAYNEMELODIE ? : 57 TELEPHONE: [phone] ? MR#: [id number] ? imaged in the supine position. Attenuation correction used. Isotope administration: - Rest. Tc[99m]-sestamibi. Injection to stress time: 00:45. - Stress. Tc[99m]-sestamibi. 1-2 min before end of exercise Baseline ECG: ??NSR- 77 BPM. Stress protocol: +--------+--+ + + !Stage ?? !HR!BP (mmHg) ??!Comments ? ! +--------+--+ + + !Baseline!77!147/59 (88)! ! +--------+--+ + + !1 min ?? !98! !Inject Regadenoson.! +--------+--+ + + !2 min ?? !90!129/53 (78)! ! +--------+--+ + + !3 min ?? !90! ! ! +--------+--+ + + !4 min ?? !88!145/46 (79)! ! +--------+--+ + + !5 min ?? !88! ! ! +--------+--+ + + !6 min ?? !88!143/57 (86)! ! +--------+--+ + + !7 min ?? !90! ! ! +--------+--+ + + * Stress results: ??The rate-pressure product for the peak heart rate and blood pressure was 61237fz Hg/min. Stress ECG: ??RESTING LEXISCAN STUDY NO CHEST PAIN A FEW PVC'S NO ISCHEMIC ECG CHANGES. Myocardial perfusion: ?? Imaging information: gated. There is a small sized, moderately intense, partially reversible defect involving the apical wall(s). This suggests small ischemia in the distribution of the left anterior descending coronary artery. Overall ischemia: small. Ventricular Function (Wall Motion): ?? The calculated left ventricular ejection fraction after stress: 74%. ?? No left ventricular regional motion abnormality. Study data: ??Susy Walls MD supervised and was readily available during the procedure. This study was interpreted by [facility]. ??Study status: ??Routine. ??Consent: ??The risks, benefits, and alternatives to the procedure were explained to the patient and informed consent was ? [facility] ?[facility] ?[facility] [address], [place] [address] ? [id number] ?C A R D I A C ?S T R E S S ?T E S T ?R E P O R T NAME: CLIFFORD,MELODIE ? : 57 TELEPHONE: [phone] ? MR#: [id number] ? obtained. ??Procedure: ??Initial setup. A baseline ECG was recorded. Surface ECG leads and manual cuff blood pressure measurements were monitored. Heart sounds: Normal. Lung sounds: Abnormal. ??Regadenoson stress test. Stress testing was performed, with regadenoson by intravenous bolus, for a total dose of 0.4mgover 10.00sec, followed by a 5ml saline flush. The infusion was terminated due to per protocol. Study completion: ??All catheters inserted during the procedure were removed. The patient tolerated the procedure well and was discharged from the lab. ??Discharge: ??The patient left the laboratory in stable condition. ? Birthdate: ??Patient birthdate: 1955. ??Sex: ??Gender: female. ??Study date: ??Study date: 08/22/2017. Study time: 10:00 AM. Electronically signed by Susy Walls MD 08/22/2017 13:27 Procedure Note Susy Walls - 01/03/2019 [facility] [address] [place], [place] [id number] C A R D I A C S T R E S S T E S T R E P O R T NAME: KERRY CLIFFORD: 57 TELEPHONE: [phone] MR#: [id number] [id number] *[facility]* *[facility]* [address] [place] [address] Myocardial Perfusion Imaging - SPECT Regadenoson Date of study: 08/22/2017 *PATIENT PRESENTATION* Height: 154.9cm (61in) Blood Pressure: Weight: 84.5kg (186lb) BSA: 1.95m S 2 Ordering physician: Belkis Valdez Impressions: - Abnormal study after pharmacologic stress. - Small apical ischemia. Medical therapy CAD reasonable. Summary: 1. Myocardial perfusion imaging: There is a small sized, moderately intense, partially reversible defect involving the apical wall(s). This suggests small ischemia in the distribution of the left anterior descending coronary artery. Overall ischemia: small. 2. The calculated left ventricular ejection fraction after stress: 74%. No left ventricular regional motion abnormality. Indication: NSTEMI. History: ADMITTED TO [facility] 08/18/17 WITH LEFT SIDED ABD. PAIN. DIAGNOSED WITH SEVERE SEPSIS FROM ACUTE DIVERTICULITIS WITH MICROPERFORATION. TROPS PEAKED AT 1.9, ECG WITH SLIGHT ST DEPRESSION IN LATERAL LEADS. PATIENT SMOKES 1 1/2 PPD OF CIGARETTES. 08/18/17- ECHO- LVEF 60-65%, NO WMA. 1995- STENTS X 2. Risk factors: Current tobacco use. Obesity. MEDS: SEE E-CLINICAL. Imaging Technique: Protocol: Regadenoson. Acquisition: Gated SPECT; 1 day - rest/stress. The patient was [facility] [address] [place], [place] [address] [id number] C A R D I A C S T R E S S T E S T R E P O R T NAME: MEERA CLIFFORDB: 57 TELEPHONE: [phone] MR#: [id number] imaged in the supine position. Attenuation correction used. Isotope administration: - Rest. Tc[99m]-sestamibi. Injection to stress time: 00:45. - Stress. Tc[99m]-sestamibi. 1-2 min before end of exercise Baseline ECG: NSR- 77 BPM. Stress protocol: +--------+--+ + + !Stage !HR!BP (mmHg) !Comments ! +--------+--+ + + !Baseline!77!147/59 (88)! ! +--------+--+ + + !1 min !98! !Inject Regadenoson.! +--------+--+ + + !2 min !90!129/53 (78)! ! +--------+--+ + + !3 min !90! ! ! +--------+--+ + + !4 min !88!145/46 (79)! ! +--------+--+ + + !5 min !88! ! ! +--------+--+ + + !6 min !88!143/57 (86)! ! +--------+--+ + + !7 min !90! ! ! +--------+--+ + + * Stress results: The rate-pressure product for the peak heart rate and blood pressure was 39130fp Hg/min. Stress ECG: RESTING LEXISCAN STUDY NO CHEST PAIN A FEW PVC'S NO ISCHEMIC ECG CHANGES. Myocardial perfusion: Imaging information: gated. There is a small sized, moderately intense, partially reversible defect involving the apical wall(s). This suggests small ischemia in the distribution of the left anterior descending coronary artery. Overall ischemia: small. Ventricular Function (Wall Motion): The calculated left ventricular ejection fraction after stress: 74%. No left ventricular regional motion abnormality. Study data: Susy Walls MD supervised and was readily available during the procedure. This study was interpreted by [facility]. Study status: Routine. Consent: The risks, benefits, and alternatives to the procedure were explained to the patient and informed consent was [facility] [address] [place], [place] [address] [id number] C A R D I A C S T R E S S T E S T R E P O R T NAME: MEEAR CLIFFORDHarsh: 57 TELEPHONE: [phone] MR#: [id number] [facility]#:[id number] obtained. Procedure: Initial setup. A baseline ECG was recorded. Surface ECG leads and manual cuff blood pressure measurements were monitored. Heart sounds: Normal. Lung sounds: Abnormal. Regadenoson stress test. Stress testing was performed, with regadenoson by intravenous bolus, for a total dose of 0.4mgover 10.00sec, followed by a 5ml saline flush. The infusion was terminated due to per protocol. Study completion: All catheters inserted during the procedure were removed. The patient tolerated the procedure well and was discharged from the lab. Discharge: The patient left the laboratory in stable condition. Birthdate: Patient birthdate: 1955. Sex: Gender: female. Study date: Study date: 08/22/2017. Study time: 10:00 AM. Electronically signed by Susy Walls MD 08/22/2017 13:27 Provider Unknown CARDIAC NM ORDERABLE S * NM CARD SPECT NUCLEAR STRESS (08/22/2017 9:16 EDT) Anatomical Region Laterality Modality Chest Nuclear Stress 08/22/2017 9:16 EDT Narrative 08/25/2017 16:10 EDT ? EXAM: NUCLEAR MEDICINE/NUCLEAR STRESS MAMADOU EX. D/ (0916) ? CLINICAL INFORMATION: ? NSTEMI ? *[facility]* ? *[facility]* ? [address] ? [place] [address] ? Myocardial Perfusion Imaging - SPECT ? Regadenoson ? Date of study: ??08/22/2017 ? *PATIENT PRESENTATION* ? Height: ? 154.9cm (61in) ? Blood Pressure: ? Weight: ? 84.5kg (186lb) ? BSA: ?1.95m S 2 ? Ordering physician: Belkis Valdez ? Impressions: ? - Abnormal study after pharmacologic stress. ? - Small apical ischemia. Medical therapy CAD reasonable. ? Summary: ? 1. Myocardial perfusion imaging: There is a small sized, moderately ?intense, partially reversible defect involving the apical wall(s). ?This suggests small ischemia in the distribution of the left ?anterior descending coronary artery. Overall ischemia: small. ? 2. The calculated left ventricular ejection fraction after stress: ?74%. No left ventricular regional motion abnormality. ? Indication: ?? NSTEMI. ? History: ??ADMITTED TO [facility] 08/18/17 WITH LEFT SIDED ABD. PAIN. DIAGNOSED ? WITH SEVERE SEPSIS FROM ACUTE DIVERTICULITIS WITH MICROPERFORATION. ? TROPS PEAKED AT 1.9, ECG WITH SLIGHT ST DEPRESSION IN LATERAL LEADS. ? PATIENT SMOKES 1 1/2 PPD OF CIGARETTES. ? 08/18/17- ECHO- LVEF 60-65%, NO WMA. ? 1995- STENTS X 2. ? Risk factors: ??Current tobacco use. Obesity. ? MEDS: SEE E-CLINICAL. ? Imaging Technique: ? Protocol: ??Regadenoson. ? Acquisition: ?? Gated SPECT; 1 day - rest/stress. ?The patient was ? imaged in the supine position. Attenuation correction used. ? PAGE 1 ? Signed Report ? (CONTINUED) ? Isotope administration: ? - Rest. Tc[99m]-sestamibi. Injection to stress time: 00:45. ? - Stress. Tc[99m]-sestamibi. 1-2 min before end of exercise ? Baseline ECG: ??NSR- 77 BPM. ? Stress protocol: ? +--------+--+ + + ? !Stage ?? !HR!BP (mmHg) ??!Comments ? ! ? +--------+--+ + + ? !Baseline!77!147/59 (88)! ! ? +--------+--+ + + ? !1 min ?? !98! !Inject Regadenoson.! ? +--------+--+ + + ? !2 min ?? !90!129/53 (78)! ! ? +--------+--+ + + ? !3 min ?? !90! ! ! ? +--------+--+ + + ? !4 min ?? !88!145/46 (79)! ! ? +--------+--+ + + ? !5 min ?? !88! ! ! ? +--------+--+ + + ? !6 min ?? !88!143/57 (86)! ! ? +--------+--+ + + ? !7 min ?? !90! ! ! ? +--------+--+ + + ? * ? Stress results: ??The rate-pressure product for the peak heart rate and ? blood pressure was 01925sz Hg/min. ? Stress ECG: ??RESTING LEXISCAN STUDY ? NO CHEST PAIN ? A FEW PVC'S ? NO ISCHEMIC ECG CHANGES. ? Myocardial perfusion: ?? Imaging information: gated. There is a small ? sized, moderately intense, partially reversible defect involving the ? apical wall(s). This suggests small ischemia in the distribution of ? the left anterior descending coronary artery. Overall ischemia: small. ? Ventricular Function (Wall Motion): ?? The calculated left ventricular ? ejection fraction after stress: 74%. ?? No left ventricular regional ? motion abnormality. ? Study data: ??Susy Walls MD supervised and was readily available ? during the procedure. This [facility] by [facility]. ? Study status: ??Routine. ? Consent: ??The risks, benefits, and alternatives to the procedure were ? explained to the patient and informed consent was obtained. ? Procedure: ??Initial setup. A baseline ECG was recorded. ? Surface ECG leads and manual cuff blood pressure measurements were ? monitored. ? Heart sounds: Normal. ? PAGE 2 ? Signed Report ? (CONTINUED) ? Lung sounds: Abnormal. ? Regadenoson stress test. Stress testing was performed, with ? regadenoson by intravenous bolus, for a total dose of 0.4mgover ? 10.00sec, followed by a 5ml saline flush. The infusion was terminated ? due to per protocol. ? Study completion: ??All catheters inserted during the procedure were ? removed. The patient tolerated the procedure well and was discharged ? from the lab. ? Discharge: ??The patient left the laboratory in stable condition. ? Birthdate: ??Patient birthdate: 1955. ? Sex: Gender: female. ? Study date: ??Study date: 08/22/2017. ? Study time: 10:00 AM. ? Electronically signed by ? Susy Walls MD ? 08/22/2017 13:27 ?Reported By: SUSY WALLS M.D. ? CC: ? Transcribed Date/Time: 08/25/2017 (1610) ? Equipment Processer Storage: JONATHAN ? Printed Date/Time: 09/04/2018 (1339) ? PAGE 3 ? Signed Report ? Procedure Note Susy Walls G - 01/21/2019 EXAM: NUCLEAR MEDICINE/NUCLEAR STRESS MAMADOU EX. D/ (0916) CLINICAL INFORMATION: NSTEMI *[facility]* *[facility]* [address] [place] [address] Myocardial Perfusion Imaging - SPECT Regadenoson Date of study: 08/22/2017 *PATIENT PRESENTATION* Height: 154.9cm (61in) Blood Pressure: Weight: 84.5kg (186lb) BSA: 1.95m S 2 Ordering physician: Belkis Valdez Impressions: - Abnormal study after pharmacologic stress. - Small apical ischemia. Medical therapy CAD reasonable. Summary: 1. Myocardial perfusion imaging: There is a small sized, moderately intense, partially reversible defect involving the apicalwall(s). This suggests small ischemia in the distribution of the left anterior descending coronary artery. Overall ischemia: small. 2. The calculated left ventricular ejection fraction after stress: 74%. No left ventricular regional motion abnormality. Indication: NSTEMI. History: ADMITTED TO [facility] 08/18/17 WITH LEFT SIDED ABD. PAIN.DIAGNOSED WITH SEVERE SEPSIS FROM ACUTE DIVERTICULITIS WITH MICROPERFORATION. TROPS PEAKED AT 1.9, ECG WITH SLIGHT ST DEPRESSION IN LATERALLEADS. PATIENT SMOKES 1 1/2 PPD OF CIGARETTES. 08/18/17- ECHO- LVEF 60-65%, NO WMA. 1995- STENTS X 2. Risk factors: Current tobacco use. Obesity. MEDS: SEE E-CLINICAL. Imaging Technique: Protocol: Regadenoson. Acquisition: Gated SPECT; 1 day - rest/stress. The patient was imaged in the supine position. Attenuation correction used. PAGE 1 Signed Report (CONTINUED) Isotope administration: - Rest. Tc[99m]-sestamibi. Injection to stress time: 00:45. - Stress. Tc[99m]-sestamibi. 1-2 min before end of exercise Baseline ECG: NSR- 77 BPM. Stress protocol: +--------+--+ + + !Stage !HR!BP (mmHg) !Comments ! +--------+--+ + + !Baseline!77!147/59 (88)! ! +--------+--+ + + !1 min !98! !Inject Regadenoson.! +--------+--+ + + !2 min !90!129/53 (78)! ! +--------+--+ + + !3 min !90! ! ! +--------+--+ + + !4 min !88!145/46 (79)! ! +--------+--+ + + !5 min !88! ! ! +--------+--+ + + !6 min !88!143/57 (86)! ! +--------+--+ + + !7 min !90! ! ! +--------+--+ + + * Stress results: The rate-pressure product for the peak heart rateand blood pressure was 38600hl Hg/min. Stress ECG: RESTING LEXISCAN STUDY NO CHEST PAIN A FEW PVC'S NO ISCHEMIC ECG CHANGES. Myocardial perfusion: Imaging information: gated. There is asmall sized, moderately intense, partially reversible defect involvingthe apical wall(s). This suggests small ischemia in the distribution of the left anterior descending coronary artery. Overall ischemia:small. Ventricular Function (Wall Motion): The calculated leftventricular ejection fraction after stress: 74%. No left ventricular regional motion abnormality. Study data: Susy Walls MD supervised and was readily available during the procedure. This study was interpreted by [facility]. Study status: Routine. Consent: The risks, benefits, and alternatives to the procedurewere explained to the patient and informed consent was obtained. Procedure: Initial setup. A baseline ECG was recorded. Surface ECG leads and manual cuff blood pressure measurements were monitored. Heart sounds: Normal. PAGE 2 Signed Report (CONTINUED) Lung sounds: Abnormal. Regadenoson stress test. Stress testing was performed, with regadenoson by intravenous bolus, for a total dose of 0.4mgover 10.00sec, followed by a 5ml saline flush. The infusion wasterminated due to per protocol. Study completion: All catheters inserted during the procedure were removed. The patient tolerated the procedure well and wasdischarged from the lab. Discharge: The patient left the laboratory in stable condition. Birthdate: Patient birthdate: 1955. Sex: Gender: female. Study date: Study date: 08/22/2017. Study time: 10:00 AM. Electronically signed by Susy Walls MD 08/22/2017 13:27 Reported By: SUSY WALLS M.D. CC: Transcribed Date/Time: 08/25/2017 (4904) Equipment Processer Storage: JONATHAN Printed Date/Time: 09/04/2018 (7834) PAGE 3 Signed Report Belkis Valdez MD CARDIAC NM ORDERA BLES * MAGNESIUM (08/22/2017 6:30 EDT) Magnesium 1.70 1.7 - 2.8 mg/dL 08/22/2017 7:32 [facility] 08/22/2017 6:30 EDT 08/22/2017 6:52 EDT Les An MD CHEMISTRY & BLOOD GAS ORDERABLES [facility] * (ABNORMAL) BASIC METABOLIC PANEL (BMP) (08/22/2017 6:30 EDT) BUN - [facility] 19 10 - 26 mg/dL 08/22/2017 7:32 [facility] CALCIUM - [facility] 8.1(L) 8.5 - 10.5 mg/dL 08/22/2017 7:32 [facility] Chloride 108 96 - 110 mmol/L 08/22/2017 7:32 [facility] CO2 Total 22 22 - 32 mEq/L 08/22/2017 7:32 [facility] CREATININE 0.86 0.52 - 1.04 mg/dL 08/22/2017 7:32 [facility] eGFR >60 08/22/2017 7:32 [facility] Comment: Chronic renal impairment is defined as GFR <60 Multiply result by 1.210 for patients. eGFR calculated using the IDMS-traceable MDRD Study Equation. ??(effective 01/17/2014) Anion Gap 8 0 - 18 08/22/2017 7:32 [facility] GLUCOSE - [facility] 96 70 - 100 mg/dL 08/22/2017 7:32 [facility] Potassium 3.3(L) 3.5 - 5.0 mEq/L 08/22/2017 7:32 [facility] Sodium 138 136 - 145 mEq/L 08/22/2017 7:32 [facility] 08/22/2017 6:30 EDT 08/22/2017 6:52 EDT Les Bolivar Jeff An MD CHEMISTRY & BLOOD GAS ORDERABLES [facility] * (ABNORMAL) COMPLETE BLOOD COUNT AND DIFFERENTIAL (08/22/2017 6:30 EDT) ABSOLUTE NEUTROPHIL COUN - [facility] 5.58 1.7 - 7.0 10e3/ul 08/22/2017 7:47 EDT [facility] BASOPHILS - CV 0.06 0.0 - 0.3 10e3/uL 08[facility]22[facility]2017 [facility] 2 0 - 3 % 08/22/2017 7:47 [facility] BASOPHIL - [facility] 1 0 - 2 % 8 7:47 [facility] EOS # - CV 0.06 0.05 - 0.5 10e3/uL 08/22/2017 7:47 [facility] EOSINOPHILS - [facility] 1 0 - 5 % 2017 7:47 [facility] HEMATOCRIT - [facility] 30.8(L) 34.0 - 47.0 % 08/22/2017 7:11 [facility] HEMOGLOBIN - [facility] 9.0(L) 11.2 - 15.7 g/dl 08/22/2017 7:11 [facility] HYPOCHROMASIA - CV 1+ 08/22/2017 7:47 [facility] LYMPH # - [facility] 0.47(L) 0.9 - 2.9 10e3/uL 08/22/2017 7:47 [facility] LYMPHOCYTES - [facility] 7(L) 20 - 40 % 2017 7:47 [facility] MEAN CORPUSCULAR HGB - CV 20.7(L) 26 - 34 pg 08/22/2017 7:11 [facility] MEAN CORPUSCULAR HGB CONC - CV 29.2(L) 31 - 36 g/dL 08/22/2017 7:11 [facility] MEAN CELL VOLUME - CV 71.0(L) 77 - 100 fl 08/22/2017 7:11 EDT [facility] MONO # - [facility] 0.61 0.3 - 0.9 10e3/uL 08/22/2017 7[facility] MONOCYTE - [facility] 9 0 - 12 % 8 7[facility]47 [facility] PLATELET COUNT 178 150 - 400 10e3/ul 08/22/2017 7:11 [facility] NEUTROPHILS - [facility] 80 40 - 80 % 2017 7:47 EDT [facility] RED BLOOD COUNT - [facility] 4.34 3.8 - 5.2 10e6/ul 08/22/2017 7:11 [facility] RED CELL DISTRI WIDTH - [facility] 18.4(H) 11.8 - 15.6 % 08/22/2017 7:11 [facility] WHITE BLOOD COUNT - [facility] 6.8 3.5 - 10.5 10e3/ul 08/22/2017 7:11 [facility] 08/22/2017 6:30 EDT 08/22/2017 6:52 EDT Les An MD PACKAGES & DNA PROBE ORDERABLES [facility] documented in this encounter Visit Diagnoses Not on filedocumented in this encounter Care Teams Obiee Report Developer Relationship Specialty Start Date End Date Elizabeth Dsouza MD [address] [place] [id number] PCP - General 02/13/12 documented as of this encounter
--- OUTSIDE RECORDS SUMMARY | 2023-12-04 21:47 | XMS_ITS | Encounter Summary ---
Author Organization [facility] Address [address] [place] [address] Care Team Providers Care Loader Engineer Name Role Phone Elizabeth Dsouza MD Primary Care Provider [phone] Encounter Details Date Type Department Care Team (Late st Contact Info) Description 08/19/2017 Historical Results Only [facility] Radiology Results [address] [place] [address] Les Galvan MD [address] [place] [address] Social History Tobacco Use Types Packs/Day Years Used Date Smoking Tobacco: Never Assessed Sex and Gender Information Value Date Recorded Sex Assigned at Not on file Gender Identity Female 01/04/2021 7:40 EDT Sexual Orientation Not on file documented as of this encounter Plan of Treatment Not on file documented as of this encounter Procedures Procedure Name Priority Date/Time Associated Diagnosis Comments US ABDOMEN LIMITED 08/19/2017 12 :24 EDT COMPLETE BLOOD COUNT AND DIFFERENTIAL Routine 08/19/2017 6:00 EDT MAGNESIUM Routine 08/19/2017 6:00 EDT COMPREHENSIVE METABOLIC PANEL (CMP) Routine 08/19/2017 6:00 EDT documented in this encounter Results * US ABDOMEN LIMITED (08/19/2017 12:24 EDT) Anatomical Region Laterality Modality Abdomen, Body Other 08/19/2017 12:2 4 EDT Narrative 08/19/2017 12:27 EDT ? EXAM: ULTRASOUND/ABDOMINAL LIMITED SINGLE EX. D/ (1210) ? CLINICAL INFORMATION: ? spleen, eval for infarct ? INDICATION: spleen, eval for infarct. ? COMPARISON: CT scan of the abdomen and pelvis 08/18/2017. ? TECHNIQUE: Sonographic examination of the spleen was performed. ? FINDINGS: The spleen is normal in size, shape and echogenicity. No ? focal splenic lesion is identified. Note should be made that early ? splenic infarcts may remain isoechoic to normal spleen parenchyma. ? Consider follow-up as clinically indicated. No perisplenic fluid is ? identified. ? IMPRESSION: ? Unremarkable ultrasound of the spleen. ? REPORT SIGNED IN OTHER VENDOR SYSTEM 08/19/2017 ?Reported By: Amilcar Funk MD ? CC: ? Transcribed Date/Time: 08/19/2017 (1227) ? Director Of Residential Services: ? Printed Date/Time: 09/04/2018 (9359) ? PAGE 1 ? Signed Report ? Procedure Note Amilcar Funk MD - 01/21/2019 EXAM: ULTRASOUND/ABDOMINAL LIMITED SINGLE EX. D/ (1210) CLINICAL INFORMATION: spleen, eval for infarct INDICATION: spleen, eval for infarct. COMPARISON: CT scan of the abdomen and pelvis 08/18/2017. TECHNIQUE: Sonographic examination of the spleen was performed. FINDINGS: The spleen is normal in size, shape and echogenicity. No focal splenic lesion is identified. Note should be made that early splenic infarcts may remain isoechoic to normal spleen parenchyma. Consider follow-up as clinically indicated. No perisplenic fluid is identified. IMPRESSION: Unremarkable ultrasound of the spleen. REPORT SIGNED IN OTHER VENDOR SYSTEM 08/19/2017 Reported By: Amilcar Funk MD CC: Transcribed Date/Time: 08/19/2017 (4032) Director Of Residential Services: Printed Date/Time: 09/04/2018 (5324) PAGE 1 Signed Report Les An MD IM US [facility] * MAGNESIUM (08/19/2017 6:00 EDT) Pathologist [facility] Magnesium 2.00 1.7 - 2.8 mg/dL 08/19/2017 7:34 EDT [facility] 08/19/2017 6:00 EDT 08/19/2017 6:52 EDT Thi Asencio DO CHEMISTRY & BLOOD G ORDERABLES [facility] * (ABNORMAL) COMPREHENSIVE METABOLIC PANEL (CMP) (08/19/2017 6:00 EDT) Albumin % 2.7(L) 3.4 - 4.9 g/dL 08/19/2017 7:34 EDT [facility] ALKALINE PHOSPHATASE - [place] 56 38 - 126 U/L 08/19/2017 7:34 [facility] BILIRUBIN TOTAL 1.6(H) 0.2 - 1.3 mg/dL 08/19/2017 7[facility] BUN - [place] 17 10 - 26 mg/dL 08/19/2017 7:34 [facility] CALCIUM - [place] 8.3(L) 8.5 - 10.5 mg/dL 08/19/2017 7:34 [facility] Chloride 109 96 - 110 mmol/L 08/19/2017 7:34 [facility] CO2 Total 22 22 - 32 mEq/L 08/19/2017 7:34 [facility] CREATININE 0.90 0.52 - 1.04 mg/dL 08/19/2017 7:34 [facility] eGFR >60 08/19/2017 7:34 [facility] Comment: Chronic renal impairment is defined as GFR <60 Multiply result by 1.210 for patients. eGFR calculated using the IDMS-traceable MDRD Study Equation. ??(effective 01/17/2014) Anion Gap 7 0 - 18 08/19/2017 7:34 [facility] GLUCOSE - [place] 130(H) 70 - 100 mg/dL 08/19/2017 7:34 [facility] Potassium 4.4 3.5 - 5.0 mEq/L 08/19/2017 7:34 [facility] Sodium 138 136 - 145 mEq/L 08/19/2017 7:34 [facility] TOTAL PROTEIN - [place] 5.1(L) 6.2 - 8.2 gm/dL 08/19/2017 7:34 [facility] SGOT/AST - [place] 25 14 - 36 U/L 08/19/2017 7:34 [facility] SGPT/ALT - [place] 26 9 - 52 U/L 8 7:34 [facility] 08/19/2017 6:00 EDT 08/19/2017 6:52 EDT Thi Asencio DO CHEMISTRY & BLOOD G ORDERABLES [facility] * (ABNORMAL) COMPLETE BLOOD COUNT AND DIFFERENTIAL (08/19/2017 6:00 EDT) ABSOLUTE NEUTROPHIL COUN - [place] 7.39(H) 1.7 - 7.0 10e3/ul 08/19/2017 7:40 [facility] BASOPHILS - [facility] 0.16 0.0 - 0.3 10e3/uL 08/19/2017 7:40 [facility] BANDS - [facility] 18(H) 0 - 3 % 08/19/2017 7:40 [facility] BASOPHIL - [facility] 2 0 - 2 % 8 7:40 [facility] CRENATED CELLS - [facility] RARE 08/19/2017 7:40 [facility] EOS # - [facility] 0.08 0.05 - 0.5 10e3/uL 08/19/2017 7:40 [facility] EOSINOPHILS - [facility] 1 0 - 5 % 08/19/2017 7:40 [facility] HEMATOCRIT - [facility] 32.1(L) 34.0 - 47.0 % 08/19/2017 7:01 [facility] HEMOGLOBIN - [facility] 9.2(L) 11.2 - 15.7 g/dl 08/19/2017 7:01 [facility] LYMPH # - [facility] 0.50(L) 0.9 - 2.9 10e3/uL 08/19/2017 7:40 [facility] LYMPHOCYTES - [facility] 6(L) 20 - 40 % 08/19/2017 7:40 [facility] MEAN CORPUSCULAR HGB - [facility] 20.8(L) 26 - 34 pg 08/19/2017 7:01 [facility] MEAN CORPUSCULAR HGB CONC - [facility] 28.7(L) 31 - 36 g/dL 08/19/2017 7:01 [facility] MEAN CELL VOLUME - [facility] 72.5(L) 77 - 100 fl 08/19/2017 7:01 [facility] MICROCYTES - [facility] 2+ 08/19/2017 7:40 [facility] MONO # - [facility] 0.25(L) 0.3 - 0.9 10e3/uL 08/19/2017 7:40 [facility] MONOCYTE - [facility] 3 0 - 12 % 8 7:40 EDT [facility] PLATELET COUNT 166 150 - 400 10e3/ul 08/19/2017 7:01 EDT [facility] NEUTROPHILS - [place] 70 40 - 80 % 08/19/2017 7:40 EDT [facility] RED BLOOD COUNT - [place] 4.43 3.8 - 5.2 10e6/ul 08/19/2017 7:01 EDT [facility] RED CELL DISTRI WIDTH - [place] 18.2(H) 11.8 - 15.6 % 08/19/2017 7:01 EDT [facility] WHITE BLOOD COUNT - [place] 8.4 3.5 - 10.5 10e3/ul 08/19/2017 7:01 [facility] 08/19/2017 6:00 EDT 08/19/2017 6:52 EDT Thi Asencio DO PACKAGES & DNA PROB E ORDERABLES [facility] documented in this encounter Visit Diagnoses Not on filedocumented in this encounter Care Teams Loader Engineer Relationship Specialty Start Date End Date Elizabeth Dsouza MD [address] [place] [phone] PCP - General 02/13/12 documented as of this encounter
--- OUTSIDE RECORDS SUMMARY | 2023-12-04 21:47 | XMS_ITS | Encounter Summary ---
Author Organization [facility] Address [address] [place] [address] Care Team Providers Care Sales Solutions Representative Name Role Phone Elizabeth Dsouza MD Primary Care Provider [phone] Encounter Details Date Type Department Care Team (Late st Contact Info) Description 01/17/2021 Lab Requisition [facility] Pathology & Laboratory Medicine - [facility] [address] [place] [address] Outr Resulting Lab, Provider Social History Tobacco [...] INCLUDES QUANTITATION OF MONOCLONAL SPIKE PERFORMABLE Today 01/17/2021 10:21 EDT SPEP, INCLUDES QUANTITATION OF MONOCLONAL SPIKE Routine 01/17/2021 10:21 EDT PROTEIN, TOTAL Today 01/17/2021 10:21 EDT documented in this encounter Results * SPEP, INCLUDES QUANTITATION OF MONOCLONAL SPIKE PERFORMABLE (01/17/2021 10:21 EDT) Albumin % 61.2 55.8 - 66.1 % 01/18/2021 15:14 [facility] Alpha-1 % 4.6 2.9 - 4.9 % 01/18/2021 15:14 [facility] Alpha-2 % 11.6 7.1 - 11.8 % 01/18/2021 15:14 [facility] Beta % 9.8 8.4 - 13.1 % 01/18/2021 15:14 [facility] Gamma % 12.8 11.1 - 18.8 % 01/18/2021 15:14 [facility] SPEP Comment No apparent monoclonal protein seen on serum electrophoresis 01/18/2021 15:14 [facility] Comment:See scanned/suppleme ntary report. Total Protein 7.5 6.3 - 8.2 g/dL 01/18/2021 15:14 [facility] Blood VENOUS BLOOD / Unknown 01/17/2021 10:21 EDT 01/17/2021 21:47 EDT Provider Outr Resulting Lab CHEMISTRY & BLOOD GAS ORDERABLES Performing Organization Address [facility] Co de Phone Number [facility] [address] [place] [address] * PROTEIN, TOTAL (01/17/2021 10:21 EDT) Blood VENOUS BLOOD / Unknown 01/17/2021 10:21 EDT 01/17/2021 21:47 EDT Provider Outr Resulting Lab CHEMISTRY & BLOOD GAS ORDERABLES Performing Organization Address [facility] Co de Phone Number [facility] [address] [place] [address] documented in this encounter Visit Diagnoses Not on filedocumented in this encounter Care Teams Sales Solutions Representative Relationship Specialty Start Date End Date Elizabeth Dsouza MD [address] [place] [phone] PCP - General 02/13/12 documented as of this encounter
--- OUTSIDE RECORDS SUMMARY | 2023-12-04 21:47 | XMS_ITS | Encounter Summary ---
Author Organization [facility] Address [address] [place] [address] Care Team Providers Care Automotive Glass Technician Name Role Phone Elizabeth Dsouza MD Primary Care Provider [phone] Encounter Details Date Type Department Care Team (Latest Contact Info) Description 12/16/2013 11:47 EDT - 12/16/2013 23:59 EDT Hospital Encounter [address] [address] Unknown, Provider, Discharge Disposition: Home or Self Care Social History Tobacco Use Types Packs/Day Years Used Date Smoking Tobacco: Never Assessed Sex and Gender Information Value Date Recorded Sex Assigned at Not on file Gender Identity Female 01/04/2021 7:40 EDT Sexual Orientation Not on file documented as of this encounter Discharge Disposition Disposition Code Departure Means Destination Home or Self Skilled Nursing documented in this encounter Plan of Treatment Not on file documented as of this encounter Visit Diagnoses Not on filedocumented in this encounter Care Teams Automotive Glass Technician Relationship Specialty Start Date End Date Elizabeth Dsouza MD [address] [place] [phone] PCP - General 02/13/12 documented as of this encounter
--- OUTSIDE RECORDS SUMMARY | 2023-12-04 21:47 | XMS_ITS | Encounter Summary ---
Author Organization [facility] Address [address] [place] [address] Care Team Providers Care Pediatric Social Worker Name Role Phone Elizabeth Dsouza MD Primary Care Provider [phone] Encounter Details Date Type Department Care Team (Late st Contact Info) Description 02/26/2017 Historical Results Only [facility] Lab - Main [address] [id number] Richar Alegre, DDFranny [address] [place] [phone] Social History Tobacco Use Types Packs/Day Years [...] Date/Time Associated Diagnosis Comments SURGICAL PATHOLOGY Routine 02/26/2017 documented in this encounter Results * SURGICAL PATHOLOGY (02/26/2017) 02/26/2017 02/28/2017 9:1 1 EST Narrative [facility] - 03/03/2017 16:38 EST ----- ------- Name: VIKRAM CLIFFORD ? : 57 ?Age/Sex: 63/F ?Unit#: [id number] ? Loc: LAB.OPX ? Status: REG REF ?? Reg Date: 02/26/17 ? Pt.Phone Number: ? ----- ------- Specimen: [id number] ? STATUS: SOUT ?Spec Date:02/26/17 ? Physician Copies: ?Richar Alegre DD Tissues: A ?? Oral mucosa, biopsy (LEFT LOWER JAW) ? CPT: 31955 ?? Units: ??1 ?FINAL DIAGNOSIS ? MUCOSA OF JAW, LEFT LOWER, CYST ASSOCIATED WITH TOOTH EXTRACTION; ? -Periapical (radicular) cyst, see comment ----- ------- ?COMMENT ? Sections show fragments of non-keratinizing stratified squamous epithelium of varying thickness and densely infiltrated by acute inflammatory cells consistent with cyst lining. ??Neutrophils and lymphocytes migrate through the squamous epithelium into the underlying submucosal connective tissue. Neutrophils predominate in this process. Inflammatory cells continue to infiltrate supportive submucosal tissues. Areas of dystrophic calcification are identified. There is no evident atypia or malignancy. ? GROSS DESCRIPTION ? Received in formalin labeled with the patient's name are multiple pieces of ? franco-brown tissue aggregating 2.5 x 2.0 x 0.3 cm. es 1 KF ?? PREOP DX/CLINICAL HISTORY ?Unspecified cyst of the jaw. M27.4 Signed ____(signature on file)____ Yeni Enciso M.D. 03/03/17 ? By the signature above, the attending physician certifies that he/she has personally conducted a gross and/or microscopic examination of the described specimens and rendered or confirmed the above diagnosis. Test Performed by [facility], [address] [place] [id number] Environmental Sustainability Manager: Marina Phillip MD PHD ----- ------- Richar Alegre DDS PATHOLOGY MARC HANSEN Performing Organization Address City/State/[facility] Co de Phone Number [facility] documented in this encounter Visit Diagnoses Not on filedocumented in this encounter Care Teams Pediatric Social Worker Relationship Specialty Start Date End Date Elizabeth Dsouza MD [address] [place] [phone] PCP - General 02/13/12 documented as of this encounter
--- OUTSIDE RECORDS SUMMARY | 2023-12-04 21:47 | XMS_ITS | Encounter Summary ---
Author Organization [facility] Address [address] [place] [address] Care Team Providers Care Tip Length Checker Name Role Phone Elizabeth Dsouza MD Primary Care Provider [phone] Reason for Visit * Reason Comments Peripheral Neuropathy Encounter Details Date Type Department Care Team (Latest Contact Info) Description 01/17/2021 9:00 EDT Procedure visit [facility] [address] [place] [address] Dwight Samano MD [address] [facility] [address] [place] [address] Other polyneuropathy (Primary Dx) Social History Tobacco Use Types Packs/Day Years Used Date Smoking Tobacco: Never Assessed Interpersonal Safety Answer Date Record ed Physically Hurt Never 10/17/2019 Verbally Threaten Not on file 10/17/2019 Sex and Gender Information Value Date Recorded Sex Assigned at Not on file Gender Identity Female 01/04/2021 7:40 EDT Sexual Orientation Not on file documented as of this encounter Ordered Prescriptions Prescription Sig Dispensed Refills Start Date End Da te DULoxetine (CYMBALTA) 30 mg delayed release capsule Take 1 tab once daily for a week, then increase to 2 tabs once daily afterwards. 60 Each 2 01/17/2021 07/23/2022 documented in this encounter Progress Notes * Dwight Samano MD - 01/17/2021 0900 EDT [facility] Clinical Neurophysiology Nerve Conduction and Electromyography Report PATIENT NAME: Melodie Hodge PATIENT : 1955 PCP: Elizabeth Dsouza DATE OF SERVICE: 01/17/2021 History: Melodie Hodge is a 65 y.o. female with PVD who presents to EMG on referral by Dr Haddad of [facility] for evaluation of possible peripheral neuropathy. Around the same time her PCP referred her for neuropathy evaluation as well. Symptomatically she describes roughly a year of numbness tingling and pain distally in the feet especially on the tops of the feet but also the toes. No similar symptoms in the hands. Symptoms are symmetric in the feet and are perhaps slowly progressive. She has taken gabapentin which has some mild benefit for her, only taking 300 mg at night. She hastaken it through the day in the past which made her groggy. Medications: gabapentin 300mg at bedtime, omeprazole, losartan, cilostazol, rosuvastatin, trazodone, proair, spiriva Clinical Exam: Limbs studied were warmed if necessary with moist heat, and skin temperature of the feet was measured at 30 deg C before starting the study. Motor Exam: Normal bulk and tone. Lower Extremity Strength HF H Abd KF KE A DF A PF A Inv Toe E Right 5/5 5/5 5/5 5/5 5/5 5/5 5/5 4+/5 Left 5/5 5/5 5/5 5/5 5/5 5/5 5/5 4+/5 DTRs: Absent bilaterally at the patellae and Achilles. Sensation: Diminished pinprick, temperature and vibratory sense distally in the feet which normalizes around the ankles bilaterally. Electrodiagnostic Findings: Nerve Conduction: -The bilateral sural sensory responses were normal, though the left was only obtainable at 7 cm. -The bilateral superficial peroneal sensory responses were present though with borderline amplitudes. -The right peroneal motor onset latency was mildly prolonged (5.9 ms) with normal amplitude and velocity. The right peroneal F wave was mildly prolonged. -The left peroneal motor response was normal. -The bilateral tibial motor responses were normal. The right tibial F wave was mildly prolonged. EMG: -The right tibialis anterior, tibialis posterior, gastrocnemius, quadriceps, and short head of the biceps femoris were all normal. For waveforms/values/tables of EMG/nerve conduction study please see accompanying scanned document in the scans/media tab in EMR. Electrodiagnostic Impression: - This study was mildly abnormal, though not completely conclusive. The mild prolongations of the right tibial and peroneal F waves might potentially be consistent with a mild polyneuropathy. -The very mild prolonged onset latency of the right peroneal compound motor action potential and very mild diminishment in the right superficial peroneal sensory response might suggest mild right peroneal mononeuropathy though there is no slowing at the fibular head or other abnormalities to further localize this on needle examination. -There is no electrodiagnostic evidence of right lumbosacral radiculopathy. Clinical Impression: -Her clinical presentation in terms of symptoms and sensory examination does sound consistent with a mild length dependent polyneuropathy. Transfer records from her PCP indicate that she has had a normal TSH and B12. I will complete the serum testing for reversible causes of polyneuropathy to include A1c, B12, B1, B6, SPEP. Since current dosage of gabapentin is not adequately treating her neuropathic pain and higher doses have made her groggy, I suggested she try duloxetine and she was willing.Start 30 mg extended release once daily for a week then increase to 60 mg once daily. I sent enoughjust for a couple of months. I told her I would let her know if the blood testing is abnormal in a w ay to identify a treatable cause of her symptoms. If all that blood testing is normal then hers could be idiopathic, or theoretically alcohol-related though I did not specifically screen her for thistoday. I left it in her hands whether she would like to continue to follow here for neuropathic pain management or through her primary care provider. If 60 mg once daily of duloxetine after about 2-3months taking that dose is not effective for pain control but does not give side effects, this could be slowly escalated up to as high as 120 mg daily. If that is not effective, pregabalin could be areasonable alternative to gabapentin, starting 25 mg twice daily and escalating perhaps every couple of weeks no higher than a total daily dose of 400 mg typically, titrated to effectiveness or limited by side effects. I gave her a business card if she needs to schedule a follow-up appointment downthe road. If the blood testing is abnormal I will contact her. Dwight Samano MD MDM level moderate for 1 chronic illness with progression and side effects of treatment as well as prescription drug management. This was separate from any procedures performed at the time of the visit. documented in this encounter Plan of Treatment Not on file documented as of this encounter Procedures Procedure Name Priority Date/Time Associated Diagnosis Comments ZZVITAMIN B1, THIAMINE Routine 01/17/2021 10:21 EDT Other polyneuropathy SPEP, INCLUDES QUANTITATION OF MONOCLONAL SPIKE Routine 01/17/2021 10:21 EDT Other polyneuropathy VITAMIN B12 Routine 01/17/2021 10:21 EDT Other polyneuropathy MISCELLANEOUS TEST, SCHERTZ Routine 01/17/2021 10:15 EDT Other polyneuropathy documented in this encounter Results * VITAMIN B1, THIAMINE (01/17/2021 10:21 EDT) [facility] VITAMIN B1 (THIAMINE) - [facility] 112 70 - 180 nmol/L 01/25/2021 9:52 EST [facility] Comment: ADDITIONAL INFORMATION This test was developed and its performance characteristics determined by [facility] in a manner consistent with CLIA requirements. This test has not been cleared or approved by the U.S. Food and Drug Administration. Test Performed by: [facility] - [address] [place] [address] [employer] Specialist: Fabio Martin M.D. Ph.D.; CLIA# [id number] 01/17/2021 10:2 1 EDT 01/17/2021 10:21 EDT Narrative [facility] - 01/25/2021 9:52 EST Does PT Have a Latex Allergy? UNKNOWN ORDERED TESTS: SCHERTZ ID: PLP, PER ROBERTH GREEN TOP TUBE PROTECT FROM LIGHT SEND ALEK TO LAB. NO VITS ??FOR 24 HRS AND FASTING 12-14HR Dwight Samano MD CHEMISTRY & BLOOD GAS ORDERABLES Performing Organization Address City/[facility]/ZIP Co de Phone Number [facility] [address] [place] [address] * SPEP, INCLUDES QUANTITATION OF MONOCLONAL SPIKE (01/17/2021 10:21 EDT) Alpha-1 % 4.6 2.9 - 4.9 % 01/25/2021 9:52 [facility] Alpha-2 % 11.6 7.1 - 11.8 % 01/25/2021 9:52 [facility] Albumin % 61.2 55.8 - 66.1 % 01/25/2021 9:52 [facility] Beta % 9.8 8.4 - 13.1 % 01/25/2021 9:52 [facility] COMMENTS - [facility] SEE BELOW () 9:52 [facility] Comment: RESULT: No apparent monoclonal protein seen on serum electrophoresis See scanned/supplementary report. Test performed or referred by The [address] [address] Gamma % 12.8 11.1 - 18.8 % 01/25/2021 9:52 [facility] Protein, 24H Urine 7.5 6.3 - 8.2 g/dL 01/25/2021 9:52 [facility] 01/17/2021 10:2 1 EDT 01/17/2021 10:21 EDT [facility] - 01/25/2021 9:52 EST Does PT Have a Latex Allergy? UNKNOWN ORDERED TESTS: PERALES ID: PLP, PER ROBERTH GREEN TOP TUBE PROTECT FROM LIGHT SEND ALEK TO LAB. NO VITS ??FOR 24 HRS AND FASTING 12-14HR Dwight Samano MD CHEMISTRY & BLOOD GAS ORDERABLES Performing Organization Address City/[facility]/ZIP Co de Phone Number [facility] [address] [place] [address] * VITAMIN B12 (01/17/2021 10:21 EDT) [facility] VITAMIN B12 - [facility] 615 239 - 931 pg/mL 01/17/2021 11:58 EDT [facility] Comment: The results of this assay can be falsely elevated due to the consumption of Biotin. 01/17/2021 10:2 1 EDT 01/17/2021 10:21 EDT Narrative [facility] - 01/17/2021 11:58 EDT Does PT Have a Latex Allergy? UNKNOWN Dwight Samano MD CHEMISTRY & BLOOD GAS ORDERABLES Performing Organization Address City/State/[facility] Co de Phone Number [facility] [address] [place] [address] * (ABNORMAL) MISCELLANEOUS TEST, PERALES (01/17/2021 10:15 EDT) [facility] MISCELLANEOUS TEST - [facility] SEE BELOW(A) () 01/22/2021 15:46 EST [facility] Comment: Test ? Result ??Flag ??Unit ?? RefValue Pyridoxal 5-Phosphate (PLP) ?4 ?L ?mcg/L ??5-50 ??, P ADDITIONAL INFORMATION This test was developed and its performance characteristics determined by [facility] in a manner consistent with CLIA requirements. This test has not been cleared or approved by the U.S. Food and Drug Administration. Test Performed by: [facility] [address] [place] [address] [employer] Specialist: Fabio Martin M.D. Ph.D.; IA# [id number] 01/17/2021 10:1 5 EDT 01/17/2021 10:47 EDT Dwight Samano MD CHEMISTRY & BLOOD GAS ORDERABLES [facility] [address] [place] [address] documented in this encounter Visit Diagnoses Diagnosis Other polyneuropathy- Primary documented in this encounter Care Teams Tip Length Checker Relationship Specialty Start Date End Date Elizabeth Dsouza MD [address] [place] [address] PCP - General 02/13/12 documented as of this encounter
--- OUTSIDE RECORDS SUMMARY | 2023-12-04 21:47 | XMS_ITS | Encounter Summary ---
Author Organization [facility] Address [address] [place] [address] Care Team Providers Care Registered Safety Engineer Name Role Phone Elizabeth Dsouza MD Primary Care Provider [phone] Encounter Details Date Type Department Care Team (Late st Contact Info) Description 08/21/2017 Historical Results Only [facility] - [address] [address] Les Galvan MD [address] [place] [phone] Social History Tobacco Use Types Packs/Day Years Used Date Smoking Tobacco: Never Assessed Sex and Gender Information Value Date Recorded Sex Assigned at Not on file Gender Identity Female 01/04/2021 7:40 EDT Sexual Orientation Not on file documented as of this encounter Plan of Treatment Not on file documented as of this encounter Procedures Procedure Name Priority Date/Time Associated Diagnosis Comments URINE CULTURE IF POSITIVE Routine 08/21/2017 8:53 EDT [place] [facility] Routine 08/21/2017 6:3 0 EDT C REACTIVE PROTEIN Routine 08/21/2017 6: 30 EDT MAGNESIUM Routine 08/21/2017 6:30 EDT BASIC METABOLIC PANEL (BMP) Routine 08/21/2017 6:30 EDT documented in this encounter Results * URINE CULTURE IF POSITIVE (08/21/2017 8:53 EDT) Pathologist [facility] URINE CULTURE IF UA POSITIVE [place] [facility] 08/22/2017 11:09 EDT [facility] URINE CULTURE IF UA POSITIVE - [facility] No growth. 08/22/2017 11:09 EDT [facility] 08/21/2017 8:53 EDT 08/21/2017 8:53 EDT Comment:VOID Choco Freeman MD MICROBIOLOGY - GENERAL ORDERABLES Performing Organization Address [facility]/ZIP Co de Phone Number [facility] * MAGNESIUM (08/21/2017 6:30 EDT) Pathologist [facility] Magnesium 1.90 1.7 - 2.8 mg/dL 08/21/2017 8:08 EDT [facility] 08/21/2017 6:30 EDT 08/21/2017 7:00 EDT Les An MD CHEMISTRY & BLOOD GAS ORDERABLES Performing Organization Address [facility] Co de Phone Number [facility] * (ABNORMAL) C REACTIVE PROTEIN (08/21/2017 6:30 EDT) Pathologist [facility] C-Reactive Protein 347.1(H) <10.0 mg/L 08/21/2017 8:37 EDT [facility] 08/21/2017 6:30 EDT 08/21/2017 7:00 EDT Les An MD CHEMISTRY & BLOOD GAS ORDERABLES Performing Organization Address City/[facility]/ZIP Co de Phone Number [facility] * (ABNORMAL) BASIC METABOLIC PANEL (BMP) (08/21/2017 6:30 EDT) Pathologist [facility] BUN - [facility] 24 10 - 26 mg/dL 08/21/2017 8:08 EDT [facility] CALCIUM - [facility] 8.4(L) 8.5 - 10.5 mg/dL 08/21/2017 8:08 [facility] Chloride 108 96 - 110 mmol/L 08/21/2017 8:08 [facility] CO2 Total 23 22 - 32 mEq/L 08/21/2017 8:08 [facility] CREATININE 0.97 0.52 - 1.04 mg/dL 08/21/2017 8:08 [facility] eGFR 58 08/21/2017 8:06 [facility] Comment: Stage 3: Moderate renal impairment is defined as GFR 30-59 Multiply result by 1.210 for patients. eGFR calculated using the IDMS-traceable MDRD Study Equation. ??(effective 01/17/2014) Anion Gap 9 0 - 18 08/21/2017 8:06 [facility] GLUCOSE - [facility] 105(H) 70 - 100 mg/dL 08/21/2017 8:08 [facility] Potassium 3.8 3.5 - 5.0 mEq/L 08/21/2017 8:08 [facility] Sodium 140 136 - 145 mEq/L 08/21/2017 8:08 [facility] 08/21/2017 6:30 EDT 08/21/2017 7:00 EDT Les An MD CHEMISTRY & BLOOD GAS ORDERABLES [facility] * [facility] (08/21/2017 6:30 EDT) [facility] 1+ 08/21/2017 7:45 EDT [facility] 08/21/2017 6:30 EDT 08/21/2017 7:00 EDT Les An MD CHEMISTRY & BLOOD GAS ORDERABLES [facility] documented in this encounter Visit Diagnoses Not on filedocumented in this encounter Care Teams Registered Safety Engineer Relationship Specialty Start Date End Date Elizabeth Dsouza MD [address] [place] [phone] PCP - General 02/13/12 documented as of this encounter
--- OUTSIDE RECORDS SUMMARY | 2023-12-04 21:47 | XMS_ITS | Encounter Summary ---
Author Organization [facility] Address [address] [place] [address] Care Team Providers Care Drill Punch Operator Name Role Phone Elizabeth Dsouza MD Primary Care Provider [phone] Encounter Details Date Type Department Care Team (Late st Contact Info) Description 08/23/2017 Historical Results Only [facility] - Main [address] [address] Ashu Arce MD [address] [place] [phone] Social History Tobacco Use Types Packs/Day Years Used Date Smoking Tobacco: Never Assessed Sex and Gender Information Value Date Recorded Sex Assigned at Not on file Gender Identity Female 01/04/2021 7:40 EDT Sexual Orientation Not on file documented as of this encounter Plan of Treatment Not on file documented as of this encounter Procedures Procedure Name Priority Date/Time Associated Diagnosis Comments RBC MORPHOLOGY Routine 08/23/2017 6:15 EDT BASIC METABOLIC PANEL (BMP) Routine 08/23/2017 6:15 EDT documented in this encounter Results * (ABNORMAL) BASIC METABOLIC PANEL (BMP) (08/23/2017 6:15 EDT) BUN [facility] 17 10 - 26 mg/dL 08/23/2017 7:34 EDT [facility] CALCIUM [facility] 8.2(L) 8.5 - 10.5 mg/dL 08/23/2017 7:34 [facility] Chloride 109 96 - 110 mmol/L 08/23/2017 7:34 [facility] CO2 Total 23 22 - 32 mEq/L 08/23/2017 7:34 [facility] CREATININE 0.78 0.52 - 1.04 mg/dL 08/23/2017 7:34 [facility] eGFR >60 08/23/2017 7:34 [facility] Comment: Chronic renal impairment is defined as GFR <60 Multiply result by 1.210 for patients. eGFR calculated using the IDMS-traceable MDRD Study Equation. ??(effective 01/17/2014) Anion Gap 8 0 - 18 08/23/2017 7:34 [facility] GLUCOSE - [facility] 112(H) 70 - 100 mg/dL 08/23/2017 7:34 [facility] Potassium 3.5 3.5 - 5.0 mEq/L 08/23/2017 7:34 [facility] Sodium 140 136 - 145 mEq/L 08/23/2017 7:34 [facility] 08/23/2017 6:15 EDT 08/23/2017 6:55 EDT Ashu Arce MD CHEMISTRY & BLOOD GAS ORDERABLES [facility] * RBC MORPHOLOGY (08/23/2017 6:15 EDT) HYPOCHROMASIA - [facility] 2+ 08/23/2017 7:48 EDT [facility] MICROCYTES - [facility] 2+ 018 7:48 EDT [facility] POLYCHROMASIA - [facility] RARE 08/23/2017 7:48 EDT [facility] SCHISTOCYTES - [facility] RARE 08/23/2017 7:48 EDT [facility] 08/23/2017 6:15 EDT 08/23/2017 6:55 EDT Ashu Arce MD HEMATOLOGY & PF4 O RDERAWILLIAM [facility] documented in this encounter Visit Diagnoses Not on filedocumented in this encounter Care Teams Drill Punch Operator Relationship Specialty Start Date End Date Elizabeth Dsouza MD [address] [place] [phone] PCP - General 02/13/12 documented as of this encounter
--- OUTSIDE RECORDS SUMMARY | 2023-12-04 21:47 | XMS_ITS | Encounter Summary ---
Author Organization [facility] Address [address] [place] [address] Care Team Providers Care Signal System Testing Maintainer Name Role Phone Elizabeth Dsouza MD Primary Care Provider [phone] Encounter Details Date Type Department Care Team (Late st Contact Info) Description 05/04/2021 Lab Requisition [facility] Pathology & Laboratory Medicine - [facility] [address] [place] [address] Outr Resulting Lab, Provider Social History Tobacco [...] Procedure Name Priority Date/Time Associated Diagnosis Comments ZZCOVID-19 TEST [facility] PCR Today 05/03/2021 16:30 EST COVID-19 TESTING Routine 05/03/2021 16:3 0 EST documented in this encounter Results * COVID-19 TEST [facility] PCR (05/03/2021 16:30 EST) Swab 05/03/2021 16:3 0 EST 05/04/2021 16:59 EST Provider Outr Resulting Lab MICROBIOLOGY - GENERAL ORDERABLES Performing Organization Address [facility] Co de Phone Number [facility] [address] [place] [address] * COVID-19 TESTING (05/03/2021 16:30 EST) COVID-19 rt-PCR Result Negative Negative 05/05/2021 11:49 EST [facility] Comment: This test has not been FDA cleared or approved. This test has been authorized by FDA under an EUA for use by authorized laboratories. This test has been authorized only for detection of nucleic acid from 2019-nCoV, not for any other viruses or pathogens. This test is only authorized for the duration of the declaration that circumstances exist justifying the authorization of emergency use of in vitro diagnostic tests for detection and/or diagnosis of 2019-nCoV under section 564(b)(1) of Act, 21 U.S.C ?? 360bbb-3(b) (1), unless the authorization is terminated or revoked sooner. Negative results do not preclude 2019-nCoV infection and should not be used as the sole basis for treatment or other patient management decisions. Negative results must be combined with clinical observations, patient history, and epidemiological information. Testing was performed using the forrest SARS-CoV-2 assay ([employer] on the Forrest 6800 System Performing Lab Forrest [facility] [facility] 05/05/2021 11:49 EST [facility] Swab 05/03/2021 16:3 0 EST 05/04/2021 16:59 EST Provider Outr Resulting Lab MICROBIOLOGY - GENERAL ORDERABLES Performing Organization Address City/[facility]/ZIP Co de Phone Number [facility] [address] [place] [address] documented in this encounter Visit Diagnoses Not on filedocumented in this encounter Care Teams Signal System Testing Maintainer Relationship Specialty Start Date End Date Elizabeth Dsouza MD [address] [place] [phone] PCP - General 02/13/12 documented as of this encounter
--- OUTSIDE RECORDS SUMMARY | 2023-12-04 21:47 | XMS_ITS | Encounter Summary ---
Author Organization [facility] Address [address] [place] [address] Care Team Providers Care Manager Respiratory Care Name Role Phone Elizabeth Dsouza MD Primary Care Provider [phone] Reason for Visit * Reason Onset Date Comments Appointment Related 08/27/2017 Encounter Details Date Type Department Care Team (Late st Contact Info) Description 08/27/2017 Telephone [facility] General Surgery - [address] [address] Elizabeth Pendleton MD [address] [place] [phone] Appointment Related Social History Tobacco Use Types Packs/Day Years Used Date Smoking Tobacco: Never Assessed Sex and Gender Information Value Date Recorded Sex Assigned at Not on file Gender Identity Female 01/04/2021 7:40 EDT Sexual Orientation Not on file documented as of this encounter Miscellaneous Notes * Telephone Encounter - Jill Lagos - 08/27/2017 1043 EDT Patient called back and spoke with Suzanne. She states she cannot come in on 09-02-17 and has rescheduled on 09-30-17. Patient was unwilling to accept an appointment sooner. documented in this encounter Plan of Treatment Not on file documented as of this encounter Visit Diagnoses Not on filedocumented in this encounter Care Teams Manager Respiratory Care Relationship Specialty Start Date End Date Elizabeth Dsouza MD [address] [place] [phone] PCP - General 02/13/12 documented as of this encounter
--- OUTSIDE RECORDS SUMMARY | 2023-12-04 21:47 | XMS_ITS | Encounter Summary ---
Author Organization [facility] Address [address] [place] [address] Care Team Providers Care Adjunct Philosophy Faculty Name Role Phone Elizabeth Dsouza MD Primary Care Provider [phone] Reason for Visit * Reason Onset Date Comments Results 01/23/2021 Encounter Details Date Type Department Care Team (Late st Contact Info) Description 01/23/2021 Telephone [facility] [address] [place] [address] [phone] Dwight Samano MD [address] [place] [address] Results Social History Tobacco Use Types Packs/Day [...] Dispensed Refills Start Date End Da te pyridoxine, vitamin B6, (VITAMIN B6) 50 mg tablet Take 1 Tablet by mouth daily. Please call the neurology office for further instructions. 90 Tablet 1 01/23/2021 07/23/2022 documented in this encounter Miscellaneous Notes * Addendum Note - Julee Tavarez RN - 01/23/2021 1313 ESTAddended by: JULEE TAVAREZ on: 01/23/2021 13:13 Modules accepted: Orders * Telephone Encounter - Julee Tavarez RN - 01/23/2021 1310 EST Attempted call to patient. Person who answered stated that no one named Melodie was there. I will order her B6 prescription and ask her to call us. I will try to contact her again tomorrow. * Telephone Encounter - Dwight Samano MD - 01/23/2021 0828 EST Please let her know her B6 is a little low. Would be helpful to take a supplement for 6 months or so, and recheck about a week after stopping it then. Send prescription for 50mg daily for 6 months. documented in this encounter Plan of Treatment Not on file documented as of this encounter Visit Diagnoses Not on filedocumented in this encounter Care Teams Adjunct Philosophy Faculty Relationship Specialty Start Date End Date Elizabeth Dsouza MD [address] [place] [phone] PCP - General 02/13/12 documented as of this encounter
--- OUTSIDE RECORDS SUMMARY | 2023-12-04 21:47 | XMS_ITS | Encounter Summary ---
Author Organization [facility] Address [address] [place] [address] Care Team Providers Care Regional Economic Liaison Name Role Phone Elizabeth Dsouza MD Primary Care Provider [phone] Encounter Details Date Type Department Care Team (Late st Contact Info) Description 09/07/2020 Lab Requisition [facility] Pathology & Laboratory Medicine - [facility] [address] [place] [address] Outr Resulting Lab, Provider Social History Tobacco [...] Procedure Name Priority Date/Time Associated Diagnosis Comments H. PYLORI ANTIGEN Routine 09/06/2020 8:45 EDT documented in this encounter Results * H. PYLORI ANTIGEN (09/06/2020 8:45 EDT) H. Pylori Negative Negative 09/12/2020 13:[address] [facility] Feces SPECIMEN FROM RECTUM / Unknown 09/06/2020 8:45 EDT 09/07/2020 16:04 EDT [address] [facility] - 09/12/2020 13:02 EDT Results were obtained with the emere Eyak HpSA Plus DIXON. Provider Outr Resulting Lab MICROBIOLOGY - GENERAL ORDERABLES [facility] [address] [place] [address] documented in this encounter Visit Diagnoses Not on filedocumented in this encounter Care Teams Regional Economic Liaison Relationship Specialty Start Date End Date Elizabeth Dsouza MD [address] [place] [phone] PCP - General 02/13/12 documented as of this encounter
--- OUTSIDE RECORDS SUMMARY | 2023-12-04 21:47 | XMS_ITS ---
Author Organization Unknown Address [address] [place] [phone] Phone Care Team Providers Care Emergency Medical Service Coordinator Name Role Phone AMINAH Lai DIRECTOR OF ENGINEERING Attending Unavailable LETITIA RANDALL Primary Unavailable Immunization [...] em Smoking History Current every day smoker [id number] SNOMED CT Sex Female Assessment You had [...] Date Status Code Code System NIDDM active 08058505 SNOMED-CT CAD active 02031436 SNOMED-CT MYOCARDIAL INFARCT active 32465238 S NOMED-CT GERD active 260582273 SNOMED-CT DEPRESSION active 89967023 SNOMED-CT HIGH CHOLESTEROL 05/01/2023 resolved 66275394 SN OMED-CT STENTED ARTERY 05/01/2023 resolved 211320387 SNOM ED-CT COPD 05/01/2023 resolved 17165836 SNOMED-CT Allergies and Adverse Reactions Allergy Substance Reaction Severity Start Date Concern Status Code Code Syste m MORPHINE Vomiting (SNOMED-CT: 358779885) Moderate Active 7052 RxNorm LATEX Active 5138737 RxNorm BAND-AID BRAND ADHESIVE BANDAGES Moderate Active 6861334 RxNorm Plan of Treatment MRI L SPINE [...]
--- OUTSIDE RECORDS SUMMARY | 2023-12-04 21:47 | XMS_ITS ---
Author Organization Unknown Address [address] [place] [phone] Phone Care Team Providers Care Yard Assistant Name Role Phone POLLO TELLEZ DPM Attending Unavailable LETITIA RANDALL Primary Unavailable Immunization [...] em Smoking History Current every day smoker [id number] SNOMED CT Sex Female Assessment You had [...] Date Status Code Code System NIDDM active 99240079 SNOMED-CT CAD active 77817076 SNOMED-CT MYOCARDIAL INFARCT active 42347295 S NOMED-CT GERD active 059217864 SNOMED-CT DEPRESSION active 46110885 SNOMED-CT HIGH CHOLESTEROL 05/01/2023 resolved 78708064 SN OMED-CT STENTED ARTERY 05/01/2023 resolved 842845084 SNOM ED-CT COPD 05/01/2023 resolved 55725179 SNOMED-CT Allergies and Adverse Reactions Allergy Substance Reaction Severity Start Date Concern Status Code Code Syste m MORPHINE Vomiting (SNOMED-CT: 710378073) Moderate Active 7052 RxNorm LATEX Active 8808702 RxNorm BAND-AID BRAND ADHESIVE BANDAGES Moderate Active 8169400 RxNorm Plan of Treatment MRI L SPINE [...] Diagnosis Start Date Code Code Sys tem Idiopathic peripheral neuropathy 08/28/2020 25848802 SNOMED-CT Personal Care Team Section Performer Name Performer Role Active Date Inactive Av pérez
--- OUTSIDE RECORDS SUMMARY | 2023-12-04 21:47 | XMS_ITS | Encounter Summary ---
Author Organization [facility] Address [address] [place] [address] Care Team Providers Care Health Commissioner Name Role Phone Elizabeth Dsouza MD Primary Care Provider [phone] Encounter Details Date Type Department Care Team (Late st Contact Info) Description 08/21/2017 Historical Results Only [facility] - [place] [phone] Les Galvan MD [address] [place] [phone] Social History Tobacco Use Types Packs/Day Years Used Date Smoking Tobacco: Never Assessed Sex and Gender Information Value Date Recorded Sex Assigned at Not on file Gender Identity Female 01/04/2021 7:40 EDT Sexual Orientation Not on file documented as of this encounter Plan of Treatment Not on file documented as of this encounter Procedures Procedure Name Priority Date/Time Associated Diagnosis Comments [facility] Routine 08/21/2017 6:30 EDT documented in this encounter Results * [facility] (08/21/2017 6:30 EDT) [facility] 1+ 08/21/2017 7:45 EDT [facility] 08/21/2017 6:30 EDT 08/21/2017 7:00 EDT Les An MD CHEMISTRY & BLOOD GAS ORDERABLES [facility] documented in this encounter Visit Diagnoses Not on filedocumented in this encounter Care Teams Health Commissioner Relationship Specialty Start Date End Date Elizabeth Dsouza MD [address] [place] [phone] PCP - General 02/13/12 documented as of this encounter
--- OUTSIDE RECORDS SUMMARY | 2023-12-04 21:47 | XMS_ITS | Encounter Summary ---
Author Organization [facility] Address [address] [place] [address] Care Team Providers Care Production Engineer Name Role Phone Elizabeth Dsouza MD Primary Care Provider [phone] Reason for Visit * Reason Onset Date Comments Appointment Related 08/21/2017 Encounter Details Date Type Department Care Team (Late st Contact Info) Description 08/21/2017 Telephone [facility] General Surgery - [address] [address] Elizabeth Pendleton MD [address] [place] [phone] Appointment Related Social History Tobacco Use Types Packs/Day Years Used Date Smoking Tobacco: Never Assessed Sex and Gender Information Value Date Recorded Sex Assigned at Not on file Gender Identity Female 01/04/2021 7:40 EDT Sexual Orientation Not on file documented as of this encounter Miscellaneous Notes * Telephone Encounter - Jill Lagos - 08/21/2017 1423 EDT Patient is scheduled to see Dr. Pendleton on 09-02-17 @ 1:00pm. Please confirm and let Jill know. documented in this encounter Plan of Treatment Not on file documented as of this encounter Visit Diagnoses Not on filedocumented in this encounter Care Teams Production Engineer Relationship Specialty Start Date End Date Elizabeth Dsouza MD [address] [place] [phone] PCP - General 02/13/12 documented as of this encounter
--- OUTSIDE RECORDS SUMMARY | 2023-12-04 21:48 | XMS_ITS ---
Author Organization Unknown Address [address] [place] [phone] Phone Care Team Providers Care Heavy Repairer Name Role Phone APOORVA Blanton MD Attending Unavailable LETITIA RANDALL Primary Unavailable Immunization Immunization Date Status Additional Notes Code Code System COVID-19, mRNA, LNP-S, PF, 1 00 mcg/0.5mL dose or 50 mcg/0.25mL dose 06/21/2020 Completed 207 CVX COVID-19, mRNA, LNP-S, PF, 1 00 mcg/0.5mL dose or 50 mcg/0.25mL dose 07/19/2020 Completed 207 CVX Results URINALYSIS WITH MICRO AND RE FLEX CULTURE - Collect Date/Time: 10/17/2020 12:31 [facility] ID: [id number] [address] [place] [address], [address] LOINC: 27054-9 Test Value Unit Reference Range Code Code System Flag COLLECTION MODE: CLEAN CATCH Color YELLOW yellow 5778-6 LOINC Appearance CLEAR clear 5767-9 LOINC Glucose urine NEGATIVE negative mg/dl 94836-5 LOINC Bilirubin NEGATIVE negative 5770-3 LOINC Ketones NEGATIVE negative mg/dl 2514-8 LOINC Spec gravity 1.025 1.003 - 1.030 5811-5 LOINC pH urine 6.0 5.0 - 7.0 2756-5 LOINC Protein 100 negative mg/dl 40234-1 LOINC A Urobilinogen 1.0 <or= 1 EU/dl 85900-8 LOINC A Nitrite. NEGATIVE negative 5802-4 LOINC Blood SMALL negative 5794-3 LOINC A Leukocytes. TRACE negative A WBCs. 0-5 0-5 / hpf 41175-8 LOINC RBCs none 0-5 / hpf Epith cells 0-5 0-5 / hpf 37777-7 LOINC Cell types squamous Crystals amorphous none Bacteria minimal none Mucus none none Casts 0-5 none /lpf 86255-8 LOINC Cast types fine gran Other CBC W/ DIFFERENTIAL - Collec t Date/Time: 10/17/2020 12:31 [facility] ID: [id number] [address] [place], [place], [address] LOINC: 34471-7 Test Value Unit Reference Range Code Code System Flag WBC 6.63 th/cmm L=5.00 H=10.00 6690-2 LOINC NEUT % 69.5 % L=40.0 H=80.0 LYMPH % 21.1 % L=10.0 H=50.0 MONO % 5.4 % L=2.0 H=12.0 00696-3 LOINC EOS % 3.0 % L=0.0 H=8.0 BASO % 0.8 % L=0.0 H=3.0 IG % 0.2 % L=0.0 H=1.1 2514-8 LOINC NRBC % 0.0 % L=0.0 H=0.0 98792-2 LOINC NEUT abs count 4.6 th/cmm L=1.6 H=8.4 751-8 LOINC LYMPH abs count 1.4 th/cmm L=1.5 H=4.0 731-0 LOINC L MONO abs count 0.4 th/cmm L=0.2 H=1.0 742-7 LOINC EOS abs count 0.2 th/cmm L=0.0 H=0.5 711-2 LOINC BASO abs count 0.1 th/cmm L=0.0 H=0.2 704-7 LOINC IG abs count 0.0 th/cmm L=0.0 H=0.1 80913-5 LOINC NRBC abs count 0.0 mil/cmm L=0.0 H=0.0 93005-6 LOINC RBC 4.18 mil/cmm L=3.90 H=5.40 789-8 LOINC HEMOGLOBIN 10.7 gm/dL L=12.0 H=16.0 718-7 LOINC L HEMATOCRIT 37 % L=37 H=47 4544-3 LOINC MCV 89 fL L=82 H=92 787-2 LOINC MCH 25.6 pg L=27.0 H=31.0 785-6 LOINC L MCHC 28.7 % L=32.0 H=36.0 786-4 LOINC L RDW-SD 70.3 fL L=39.0 H=49.0 788-0 LOINC H PLATELET COUNT 226 th/cmm L=150 H=450 777-3 LOINC Anisocytosis 2+ Hypochromia 1+ Schistocytes 1+ Social History Type Status Start Date End Date Code Code Syst em Smoking History Current every day smoker 301815795 SNOMED CT Sex Female Assessment You had [...] Date Status Code Code System NIDDM active 23579850 SNOMED-CT CAD active 39288564 SNOMED-CT MYOCARDIAL INFARCT active 15741850 S NOMED-CT GERD active 926096830 SNOMED-CT DEPRESSION active 10438266 SNOMED-CT HIGH CHOLESTEROL 05/01/2023 resolved 53864089 SN OMED-CT STENTED ARTERY 05/01/2023 resolved 189034133 SNOM ED-CT COPD 05/01/2023 resolved 51188193 SNOMED-CT Allergies and Adverse Reactions Allergy Substance Reaction Severity Start Date Concern Status Code Code Syste m MORPHINE Vomiting (SNOMED-CT: 722907600) Moderate Active 7052 RxNorm LATEX Active 1609444 RxNorm BAND-AID BRAND ADHESIVE BANDAGES Moderate Active 6458331 RxNorm Plan of Treatment MRI L SPINE [...] Diagnosis Start Date Code Code Sys tem Low grade squamous intraepit helial lesion on cytologic smear of cervix (LGSIL) 10/17/2020 SNOMED-CT Personal Care Team Section Performer Name Performer Role Active Date Inactive Da te
--- OUTSIDE RECORDS SUMMARY | 2023-12-04 21:48 | XMS_ITS ---
Author Organization Unknown Address [address] [place] [phone] Phone Care Team Providers Care Sorter Upholstery Parts Name Role Phone APOORVA Blanton MD Attending [...] em Smoking History Current every day smoker 054477123 SNOMED CT Sex Female Assessment You had [...] Date Status Code Code System NIDDM active 25803925 SNOMED-CT CAD active 27196341 SNOMED-CT MYOCARDIAL INFARCT active 23732960 S NOMED-CT GERD active 224266726 SNOMED-CT DEPRESSION active 47405475 SNOMED-CT HIGH CHOLESTEROL 05/01/2023 resolved 78664417 SN OMED-CT STENTED ARTERY 05/01/2023 resolved 201418821 SNOM ED-CT COPD 05/01/2023 resolved 90131989 SNOMED-CT Allergies and Adverse Reactions Allergy Substance Reaction Severity Start Date Concern Status Code Code Syste m MORPHINE Vomiting (SNOMED-CT: 540157819) Moderate Active 7052 RxNorm LATEX Active 7900995 RxNorm BAND-AID BRAND ADHESIVE BANDAGES Moderate Active 3231509 RxNorm Plan of Treatment MRI L SPINE [...] Diagnosis Start Date Code Code Sys tem Other specified counseling 09/06/2020 S NOMED-CT Personal Care Team Section Performer Name Performer Role Active Date Inactive Da beto
--- OUTSIDE RECORDS SUMMARY | 2023-12-04 21:49 | XMS_ITS ---
Author Organization Unknown Address [address] [place] [address] [phone] Phone Care Team Providers Care Edge Burnisher Uppers Name Role Phone APOORVA Blanton MD Attending [...] em Smoking History Current every day smoker 479433665 SNOMED CT Sex Female Vital Signs Vital Sign Value Unit [place] Value [place] Unit Date/Time Recent/Initial? Code Code System Body Mass Index 32.85 kg/m2 10/26/2020 08:41 Initial 11274 -5 LOINC Systolic Blood Pressure 157 mm[Hg] 11/01/2020 08:28 Initial 8480- 6 LOINC Diastolic Blood Pressure 74 mm[Hg] 11/01/2020 08:28 Initial 8462- 4 LOINC Body Surface Area 1.89 m2 10/26/2020 08:41 Initial 3140- 1 LOINC Height 157.480 0 cm 62.00 in 10/26/2020 08:41 Initial 8302- 2 LOINC O2 Saturation 96 % 2020 08:28 Initial 20563 -5 LOINC Pulse 77.0 /min 11/01/2020 08:28 Initial 8867- 4 LOINC Respiration 16 /min 11/02/19 08:28 Initial 9279- 1 LOINC Temperature 36.1 [place] 97.0 F 08/18/20 21 08:28 Initial 8310- 5 LOINC Weight 81.47 kg 179.60 lbs 10/26/2020 08:41 Initial 88968 -7 [facility] You had the following problems:NIDDMCADMYOCARDIAL INFARCTGERDDEPRESSION [...] Vagina; w/Loop Electrode Biopsy(s), Cervix 11/01/2020 completed 62459 CPT Problems Problem Start Date Resolved Date Status Code Code System NIDDM active 04089644 SNOMED-CT CAD active 05118775 SNOMED-CT MYOCARDIAL INFARCT active 34042255 S NOMED-CT GERD active 982175415 SNOMED-CT DEPRESSION active 67402825 SNOMED-CT HIGH CHOLESTEROL 05/01/2023 resolved 63027227 SN OMED-CT STENTED ARTERY 05/01/2023 resolved 328972045 SNOM ED-CT COPD 05/01/2023 resolved 32080588 SNOMED-CT Allergies and Adverse Reactions Allergy Substance Reaction Severity Start Date Concern Status Code Code Batool jack MORPHINE Vomiting (SNOMED-CT: 837896592) Moderate Active 7052 RxNorm LATEX Active 9672995 RxNorm BAND-AID BRAND ADHESIVE BANDAGES Moderate Active 6812763 RxNorm Plan of Treatment MRI L SPINE [...]
--- OUTSIDE RECORDS SUMMARY | 2023-12-04 21:49 | XMS_ITS ---
Author Organization Unknown Address [address] [place] [phone] Phone Care Team Providers Care Bench Machine Operator Name Role Phone APOORVA Blanton MD Attending Unavailable LETITIA RANDALL Primary Unavailable Immunization Immunization Date Status Additional Notes Code Code System COVID-19, mRNA, LNP-S, PF, 1 00 mcg/0.5mL dose or 50 mcg/0.25mL dose 06/21/2020 Completed 207 CVX COVID-19, mRNA, LNP-S, PF, 1 00 mcg/0.5mL dose or 50 mcg/0.25mL dose 07/19/2020 Completed 207 CVX Results CBC W/ DIFFERENTIAL - Collec t Date/Time: 11/14/2020 11:20 [facility] ID: [id number] [address] [place] [address], [address] LOINC: 40018-6 Test Value Unit Reference Range Code Code System Flag WBC 7.55 th/cmm L=5.00 H=10.00 6690-2 LOINC NEUT % 74.1 % L=40.0 H=80.0 LYMPH % 14.4 % L=10.0 H=50.0 MONO % 8.5 % L=2.0 H=12.0 71413-2 LOINC EOS % 1.6 % L=0.0 H=8.0 BASO % 0.5 % L=0.0 H=3.0 IG % 0.9 % L=0.0 H=1.1 2514-8 LOINC NRBC % 0.0 % L=0.0 H=0.0 60963-4 LOINC NEUT abs count 5.6 th/cmm L=1.6 H=8.4 751-8 LOINC LYMPH abs count 1.1 th/cmm L=1.5 H=4.0 731-0 LOINC L MONO abs count 0.6 th/cmm L=0.2 H=1.0 742-7 LOINC EOS abs count 0.1 th/cmm L=0.0 H=0.5 711-2 LOINC BASO abs count 0.0 th/cmm L=0.0 H=0.2 704-7 LOINC IG abs count 0.1 th/cmm L=0.0 H=0.1 20965-1 LOINC NRBC abs count 0.0 mil/cmm L=0.0 H=0.0 48983-3 LOINC RBC 4.15 mil/cmm L=3.90 H=5.40 789-8 [...] em Smoking History Current every day smoker 134910158 SNOMED CT Sex Female Assessment You had [...] Date Status Code Code System NIDDM active 68345709 SNOMED-CT CAD active 86569642 SNOMED-CT MYOCARDIAL INFARCT active 15680353 S NOMED-CT GERD active 981647096 SNOMED-CT DEPRESSION active 84526699 SNOMED-CT HIGH CHOLESTEROL 05/01/2023 resolved 96693217 SN OMED-CT STENTED ARTERY 05/01/2023 resolved 169292033 SNOM ED-CT COPD 05/01/2023 resolved 87378227 SNOMED-CT Allergies and Adverse Reactions Allergy Substance Reaction Severity Start Date Concern Status Code Code Syste m MORPHINE Vomiting (SNOMED-CT: 744322106) Moderate Active 7052 RxNorm LATEX Active 4333738 RxNorm BAND-AID BRAND ADHESIVE BANDAGES Moderate Active 8467681 RxNorm Plan of Treatment MRI L SPINE [...]
--- OUTSIDE RECORDS SUMMARY | 2023-12-04 21:49 | XMS_ITS ---
Author Organization Unknown Address [address] [place] [phone] Phone Care Team Providers Care Ophthalmologist Retina Specialist Name Role Phone APOORVA Blanton MD Attending [...] em Smoking History Current every day smoker 496532612 SNOMED CT Sex Female Assessment You had [...] Date Status Code Code System NIDDM active 23107088 SNOMED-CT CAD active 56525511 SNOMED-CT MYOCARDIAL INFARCT active 33563002 S NOMED-CT GERD active 418634446 SNOMED-CT DEPRESSION active 82955620 SNOMED-CT HIGH CHOLESTEROL 05/01/2023 resolved 73215499 SN OMED-CT STENTED ARTERY 05/01/2023 resolved 498031092 SNOM ED-CT COPD 05/01/2023 resolved 60429811 SNOMED-CT Allergies and Adverse Reactions Allergy Substance Reaction Severity Start Date Concern Status Code Code Syste m MORPHINE Vomiting (SNOMED-CT: 772199379) Moderate Active 7052 RxNorm LATEX Active 0411800 RxNorm BAND-AID BRAND ADHESIVE BANDAGES Moderate Active 2310872 RxNorm Plan of Treatment MRI L SPINE [...]
--- OUTSIDE RECORDS SUMMARY | 2023-12-04 21:49 | XMS_ITS ---
Author Organization Unknown Address [address] [place] [phone] Phone Care Team Providers Care Road Maker Name Role Phone AMINAH Lai QA ARCHITECT Attending Unavailable LETITIA RANDALL Primary Unavailable Immunization [...] em Smoking History Current every day smoker 428172754 SNOMED CT Sex Female Assessment You had [...] Date Status Code Code System NIDDM active 70661717 SNOMED-CT CAD active 16992931 SNOMED-CT MYOCARDIAL INFARCT active 34293063 S NOMED-CT GERD active 987281527 SNOMED-CT DEPRESSION active 70309626 SNOMED-CT HIGH CHOLESTEROL 05/01/2023 resolved 55309459 SN OMED-CT STENTED ARTERY 05/01/2023 resolved 372027057 SNOM ED-CT COPD 05/01/2023 resolved 72792778 SNOMED-CT Allergies and Adverse Reactions Allergy Substance Reaction Severity Start Date Concern Status Code Code Syste m MORPHINE Vomiting (SNOMED-CT: 533212362) Moderate Active 7052 RxNorm LATEX Active 6835143 RxNorm BAND-AID BRAND ADHESIVE BANDAGES Moderate Active 5023353 RxNorm Plan of Treatment MRI L SPINE [...]
--- OUTSIDE RECORDS SUMMARY | 2023-12-04 21:50 | XMS_ITS ---
Author Organization Unknown Address [address] [place] [phone] Phone Care Team Providers Care Tugboat Pilot Name Role Phone AMINAH Lai WRESTLING COACH Attending Unavailable LETITIA RANDALL Primary Unavailable Immunization [...] em Smoking History Current every day smoker 235632556 SNOMED CT Sex Female Assessment You had [...] Date Status Code Code System NIDDM active 96756372 SNOMED-CT CAD active 24709978 SNOMED-CT MYOCARDIAL INFARCT active 11906844 S NOMED-CT GERD active 518504377 SNOMED-CT DEPRESSION active 31349553 SNOMED-CT HIGH CHOLESTEROL 05/01/2023 resolved 40844101 SN OMED-CT STENTED ARTERY 05/01/2023 resolved 994476992 SNOM ED-CT COPD 05/01/2023 resolved 24556529 SNOMED-CT Allergies and Adverse Reactions Allergy Substance Reaction Severity Start Date Concern Status Code Code Syste m MORPHINE Vomiting (SNOMED-CT: 744907138) Moderate Active 7052 RxNorm LATEX Active 8092308 RxNorm BAND-AID BRAND ADHESIVE BANDAGES Moderate Active 1463599 RxNorm Plan of Treatment MRI L SPINE [...]
[2023-12-04 22:12] LABS: HCT 26.3 % (36.0-46.0); HGB 7.3 g/dL (11.2-15.7); MCH 24.6 pg (27.0-33.0); MCHC 27.8 % (32.0-36.0); MCV 89 fL (80-95); MPV 10.9 fL (8.0-11.0); Platelet Count 220 10^3/uL (130-400); RBC 2.97 10^6/uL (3.93-5.22); RDW 17.9 % (11.7-14.6); RDW-SD 58.4 fL; WBC 4.38 10^3/uL (4.4-10.8)
[2023-12-04 22:40] LABS: Iron 138 ug/dL (50-170); Total Iron Binding Capacity 380 ug/dL (250-450); Transferrin Sat 36 % (15-50)
[2023-12-04 22:50] LABS: Ferritin 13 ng/mL (8-252)
== END 2023-12-04 21:39 | disposition home or self-care (01) ==
LOC: NCHCN 21:38
PROVIDERS: PCP Family Medicine; Visit Provider Family Medicine
DX: D50.9 Iron deficiency anemia, unspecified (principal)
CPT/HCPCS: 85027; 82728; 83540; 83550

== ENCOUNTER 2023-12-22 14:58 | Outpatient (REF) | payer MEDICARE, SELFPAY ==
--- OUTSIDE RECORDS SUMMARY | 2023-12-22 15:02 | XMS_ITS ---
Author Organization Unknown Address [address] [place] [address] [phone] Phone Care Team Providers Care Operating Room Scheduler Name Role Phone AMINAH TAVERA Joelle Attending Unavailable LETITIA Gaspar Primary Unavailable Social History Type Status Start Date End Date Code Code Syst em Smoking History Current every day smoker 322100358 SNOMED CT Sex Female Assessment You had [...] Date Status Code Code System NIDDM active 07288078 SNOMED-CT CAD active 31548254 SNOMED-CT MYOCARDIAL INFARCT active 61736729 S NOMED-CT GERD active 867419640 SNOMED-CT DEPRESSION active 95772421 SNOMED-CT HIGH CHOLESTEROL 05/01/2023 resolved 05515341 SN OMED-CT STENTED ARTERY 05/01/2023 resolved 539578758 SNOM ED-CT COPD 05/01/2023 resolved 05239531 SNOMED-CT Allergies and Adverse Reactions Allergy Substance Reaction Severity Start Date Concern Status Code Code Syste m MORPHINE Vomiting (SNOMED-CT: 733907772) Moderate Active 7052 RxNorm LATEX Active 2963906 RxNorm BAND-AID BRAND ADHESIVE BANDAGES Moderate Active 4923776 RxNorm Plan of Treatment MRI L SPINE [...]
--- OUTSIDE RECORDS SUMMARY | 2023-12-22 15:02 | XMS_ITS ---
Author Organization Unknown Address [address] [place] [address] [phone] Phone Care Team Providers Care Junior Software Developer Name Role Phone RIKKI WRIGHT Attending Unavailable LETITIA Gaspar Primary Unavailable Results TSH THYROID STIMULATING HORM ONE* - Collect Date/Time: 12/25/2021 09:53 [facility] ID: [id number] [address] [place] [address], [address] LOINC: 3014-8 Test Value Unit Reference Range Code Code System Flag TSH 1.411 uIU/mL L=0.360 H=3.740 3014-8 LOINC SED RATE* - Collect Date/Shahriar e: 12/25/2021 09:53 [facility] ID: [id number] [address] [place] [address], [address] LOINC: 4537-7 Test Value Unit Reference Range Code Code System Flag SED. RATE 18 mm/hr L=0 H=30 4537-7 LOINC CBC W/ DIFFERENTIAL* - Colle ct Date/Time: 12/25/2021 09:53 [facility] ID: [id number] [address] [place] [address], [address] LOINC: 84331-3 Test Value Unit Reference Range Code Code System Flag WBC 5.01 th/cmm L=5.00 H=10.00 6690-2 LOINC NEUT % 69.0 % L=40.0 H=80.0 LYMPH % 20.4 % L=10.0 H=50.0 MONO % 6.8 % L=2.0 H=12.0 98018-4 LOINC EOS % 3.0 % L=0.0 H=8.0 BASO % 0.6 % L=0.0 H=3.0 IG % 0.2 % L=0.0 H=1.1 2514-8 LOINC NRBC % 0.0 % L=0.0 H=0.0 18424-6 LOINC NEUT abs count 3.5 th/cmm L=1.6 H=8.4 751-8 LOINC LYMPH abs count 1.0 th/cmm L=1.5 H=4.0 731-0 LOINC L MONO abs count 0.3 th/cmm L=0.2 H=1.0 742-7 LOINC EOS abs count 0.2 th/cmm L=0.0 H=0.5 711-2 LOINC BASO abs count 0.0 th/cmm L=0.0 H=0.2 704-7 LOINC IG abs count 0.0 th/cmm L=0.0 H=0.1 29347-7 LOINC NRBC abs count 0.0 mil/cmm L=0.0 H=0.0 80989-9 LOINC RBC 3.26 mil/cmm L=3.90 H=5.40 789-8 [...] L (CMP) - Collect Date/Time: 12/25/2021 09:53 [facility] ID: [id number] [address] [place], [place], [address] LOINC: 82086-5 Test Value Unit Reference Range Code Code [...] H=34 2028-9 LOINC ANION GAP 7.8 mmol/L 88008-4 LOINC CALCIUM SERUM 9.0 mg/dL L=8.2 H=10.2 33699-2 LOINC BILIRUBIN TOTAL 0.9 mg/dL L=0.0 H=1.3 1975-2 LOINC ALK. PHOS. 58 U/L L=46 H=116 6768-6 LOINC SGOT (AST) 9 U/L L=15 H=37 1920-8 LOINC L SGPT (ALT) 17 U/L L=12 H=78 1742-6 LOINC TOTAL PROTEIN 7.1 gm/dL L=6.0 H=8.0 2885-2 LOINC ALBUMIN 3.5 gm/dL L=3.4 H=5.0 1751-7 LOINC AGE 66 years eGFR (non-Afr.Amer.) 33 mL/min 93256-2 LOINC eGFR (Afr-[place]an) 39 mL/min 91733-8 LOINC FERRITIN - Collect Date/Time : 12/25/2021 09:53 [facility] ID: [id number] [address] [place], [place], [address] LOINC: 2276-4 Test Value Unit Reference Range Code Code System Flag FERRITIN 6 ng/mL L=8 H=388 2276-4 LOINC L Social History Type Status Start Date End Date Code Code Syst em Smoking History Current every day smoker 463599896 SNOMED CT Sex Female Assessment You had [...] Date Status Code Code System NIDDM active 36823834 SNOMED-CT CAD active 32815301 SNOMED-CT MYOCARDIAL INFARCT active 45204198 S NOMED-CT GERD active 696570228 SNOMED-CT DEPRESSION active 17002718 SNOMED-CT HIGH CHOLESTEROL 05/01/2023 resolved 47525863 SN OMED-CT STENTED ARTERY 05/01/2023 resolved 991965049 SNOM ED-CT COPD 05/01/2023 resolved 71721672 SNOMED-CT Allergies and Adverse Reactions Allergy Substance Reaction Severity Start Date Concern Status Code Code Syste m MORPHINE Vomiting (SNOMED-CT: 656869173) Moderate Active 7052 RxNorm LATEX Active 4502403 RxNorm BAND-AID BRAND ADHESIVE BANDAGES Moderate Active 0588235 RxNorm Plan of Treatment MRI L SPINE [...] Code Sys tem Iron deficiency anemia 12/25/2021 00786465 SNOME D-CT Personal Care Team Section Performer Name Performer Role Active Date Inactive Da te
--- OUTSIDE RECORDS SUMMARY | 2023-12-22 15:03 | XMS_ITS ---
Author Organization Unknown Address [address] [place] [address] [phone] Phone Care Team Providers Care Thermodynamics Professor Name Role Phone RIKKI WRIGHT Attending Unavailable LETITIA Gaspar Primary Unavailable Results BUN/CREATININE RATIO FOR RAD IOLOGY* - Collect Date/Time: 12/27/2021 11:46 [facility] ID: [id number] [address] [place], [place], [address] LOINC: 3097-3 Test Value Unit Reference Range Code Code System Flag BUN 13 mg/dL L=6 H=25 3094-0 LOINC CREATININE 1.59 mg/dL L=0.51 H=0.95 2160-0 LOINC H BUN/CREATININE RATIO 8.2 3097-3 LOINC AGE 66 years eGFR (non-Afr.Amer) 33 mL/min 96721-6 LOINC eGFR (Afr-Nauruan) 39 mL/min 76567-6 LOINC Social History Type Status Start Date End Date Code Code Syst em Smoking History Current every day smoker 068379359 SNOMED CT Sex Female Assessment You had [...] Date Status Code Code System NIDDM active 46668998 SNOMED-CT CAD active 96272374 SNOMED-CT MYOCARDIAL INFARCT active 89241533 S NOMED-CT GERD active 333950096 SNOMED-CT DEPRESSION active 18553648 SNOMED-CT HIGH CHOLESTEROL 05/01/2023 resolved 97924291 SN OMED-CT STENTED ARTERY 05/01/2023 resolved 814786363 SNOM ED-CT COPD 05/01/2023 resolved 30349769 SNOMED-CT Allergies and Adverse Reactions Allergy Substance Reaction Severity Start Date Concern Status Code Code Batool jack MORPHINE Vomiting (SNOMED-CT: 782708665) Moderate Active 7052 RxNorm LATEX Active 5706159 RxNorm BAND-AID BRAND ADHESIVE BANDAGES Moderate Active 5938583 RxNorm Plan of Treatment MRI L SPINE [...] Code Sys tem Peripheral vascular disease 12/27/2021 933693231 SNOMED-CT Personal Care Team Section Performer Name Performer Role Active Date Inactive Da te
--- OUTSIDE RECORDS SUMMARY | 2023-12-22 15:03 | XMS_ITS ---
Author Organization Unknown Address [address] [place] [address] [phone] Phone Care Team Providers Care Retail Business Manager Name Role Phone RIKKI WRIGHT Attending Unavailable LETITIA Gaspar Primary Unavailable Social History Type Status Start Date End Date Code Code Syst em Smoking History Current every day smoker 982296502 SNOMED CT Sex Female Assessment You had [...] Date Status Code Code System NIDDM active 78273333 SNOMED-CT CAD active 12004681 SNOMED-CT MYOCARDIAL INFARCT active 40864526 S NOMED-CT GERD active 612762239 SNOMED-CT DEPRESSION active 64242722 SNOMED-CT HIGH CHOLESTEROL 05/01/2023 resolved 72558577 SN OMED-CT STENTED ARTERY 05/01/2023 resolved 147687210 SNOM ED-CT COPD 05/01/2023 resolved 13030276 SNOMED-CT Allergies and Adverse Reactions Allergy Substance Reaction Severity Start Date Concern Status Code Code Syste m MORPHINE Vomiting (SNOMED-CT: 520371909) Moderate Active 7052 RxNorm LATEX Active 6434411 RxNorm BAND-AID BRAND ADHESIVE BANDAGES Moderate Active 0604331 RxNorm Plan of Treatment MRI L SPINE [...]
--- OUTSIDE RECORDS SUMMARY | 2023-12-22 15:04 | XMS_ITS ---
Author Organization Unknown Address [address] [place] [address] [phone] Phone Care Team Providers Care It Application Architect Name Role Phone LETITIA Gaspar Attending Unavailable Social History Type Status Start Date End Date Code Code Syst em Smoking History Current every day smoker 844765615 SNOMED CT Sex Female Assessment You had [...] Date Status Code Code System NIDDM active 20912254 SNOMED-CT CAD active 48589491 SNOMED-CT MYOCARDIAL INFARCT active 49581139 S NOMED-CT GERD active 657507399 SNOMED-CT DEPRESSION active 93868142 SNOMED-CT HIGH CHOLESTEROL 05/01/2023 resolved 02946513 SN OMED-CT STENTED ARTERY 05/01/2023 resolved 184722311 SNOM ED-CT COPD 05/01/2023 resolved 67333863 SNOMED-CT Allergies and Adverse Reactions Allergy Substance Reaction Severity Start Date Concern Status Code Code Syste m MORPHINE Vomiting (SNOMED-CT: 382133981) Moderate Active 7052 RxNorm LATEX Active 8959944 RxNorm BAND-AID BRAND ADHESIVE BANDAGES Moderate Active 5278966 RxNorm Plan of Treatment MRI L SPINE [...] Code Sys tem Canceled operative procedure 04/16/2022 93233379 SNOMED-CT Personal Care Team Section Performer Name Performer Role Active Date Inactive Da te
--- OUTSIDE RECORDS SUMMARY | 2023-12-22 15:04 | XMS_ITS ---
Author Organization Unknown Address [address] [place] [address] [phone] Phone Care Team Providers Care Retail Operations Specialist Name Role Phone LETITIA Gaspar Attending Unavailable Results BD DXA BONE DENSITY HIP AND SPINE - Completed: 05/22/2022 13:43 [facility]: [place], [place] [address] PACS PELLET PRESS OPERATOR REPORT Patient Name: VIKRAM CLIFFORD MRN: Sex: : Age: [id number] F 1955 66 Account: Accession: Admit: StayType: [id number] 05/22/2022 O/P Ordered: Order ID: Submitted: Ordering Provider: 05/22/2022 12:59 [id number] NLS TONIA DONG Completed: Technologist: Resulted: 05/22/2022 [...] 4V RT* - Completed: 05/22/2022 13:22 LOINC: [facility] [place] [address] PACS PELLET PRESS OPERATOR REPORT Patient Name: VIKRAM CLIFFORD MRN: Sex: : Age: [id number] F 1955 66 Account: Accession: Admit: StayType: [id number] 05/22/2022 O/P Ordered: Order ID: Submitted: Ordering Provider: 05/22/2022 12:59 [id number] TONIA ALBERTS Completed: Technologist: Resulted: 05/22/2022 13:22 [...] em Smoking History Current every day smoker 763315517 SNOMED CT Sex Female Assessment You had [...] Date Status Code Code System NIDDM active 65602364 SNOMED-CT CAD active 78830899 SNOMED-CT MYOCARDIAL INFARCT active 21838335 S NOMED-CT GERD active 111682856 SNOMED-CT DEPRESSION active 39717284 SNOMED-CT HIGH CHOLESTEROL 05/01/2023 resolved 72043645 SN OMED-CT STENTED ARTERY 05/01/2023 resolved 629122091 SNOM ED-CT COPD 05/01/2023 resolved 63871990 SNOMED-CT Allergies and Adverse Reactions Allergy Substance Reaction Severity Start Date Concern Status Code Code Syste m MORPHINE Vomiting (SNOMED-CT: 473361901) Moderate Active 7052 RxNorm LATEX Active 0709726 RxNorm BAND-AID BRAND ADHESIVE BANDAGES Moderate Active 2356352 RxNorm Plan of Treatment MRI L SPINE [...]
--- OUTSIDE RECORDS SUMMARY | 2023-12-22 15:05 | XMS_ITS ---
Author Organization Unknown Address [address] [place] [address] [phone] Phone Care Team Providers Care Lodging Facilities Manager Name Role Phone LETITIA Gaspar Attending Unavailable Results CT LDCT FOR LUNG CA SCREEN - Completed: 05/23/2022 09:33 [facility]: [facility] [place], [place] [address] PACS RETAIL PHARMACY TECHNICIAN REPORT Patient Name: VIKRAM CLIFFORD MRN: Sex: : Age: [id number] F 1955 66 Account: Accession: Admit: StayType: [id number] 05/23/2022 O/P Ordered: Order ID: Submitted: Ordering Provider: 05/23/2022 08:47 [id number] KT TONIA DONG Completed: Technologist: Resulted: 05/23/2022 [...] em Smoking History Current every day smoker 209747954 SNOMED CT Sex Female Assessment You had [...] Date Status Code Code System NIDDM active 12098960 SNOMED-CT CAD active 04777863 SNOMED-CT MYOCARDIAL INFARCT active 45180846 S NOMED-CT GERD active 360048897 SNOMED-CT DEPRESSION active 45317690 SNOMED-CT HIGH CHOLESTEROL 05/01/2023 resolved 41425553 SN OMED-CT STENTED ARTERY 05/01/2023 resolved 713622474 SNOM ED-CT COPD 05/01/2023 resolved 70936292 SNOMED-CT Allergies and Adverse Reactions Allergy Substance Reaction Severity Start Date Concern Status Code Code Syste m MORPHINE Vomiting (SNOMED-CT: 016188791) Moderate Active 7052 RxNorm LATEX Active 3498773 RxNorm BAND-AID BRAND ADHESIVE BANDAGES Moderate Active 6009774 RxNorm Plan of Treatment MRI L SPINE [...]
--- OUTSIDE RECORDS SUMMARY | 2023-12-22 15:05 | XMS_ITS ---
Author Organization Unknown Address [address] [place] [address] [phone] Phone Care Team Providers Care Registered Public Surveyor Name Role Phone LETITIA Gaspar Attending Unavailable Results NM BONE SCAN WHOLE BODY - Co mpleted: 06/06/2022 11:55 LOINC: [facility] [place], [place] [address] PACS HYDRAULIC BULL RIVETER OPERATOR REPORT Patient Name: VIKRAM CLIFFORD MRN: Sex: : Age: [id number] F 1955 66 Account: Accession: Admit: StayType: [id number] 06/06/2022 O/P Ordered: Order ID: Submitted: Ordering Provider: 06/06/2022 08:55 [id number] [facility] TONIA DONG Completed: Technologist: Resulted: 06/06/2022 11:55 [...] em Smoking History Current every day smoker 031115975 SNOMED CT Sex Female Assessment You had [...] Date Status Code Code System NIDDM active 84648884 SNOMED-CT CAD active 44333492 SNOMED-CT MYOCARDIAL INFARCT active 23920888 S NOMED-CT GERD active 659194499 SNOMED-CT DEPRESSION active 24828508 SNOMED-CT HIGH CHOLESTEROL 05/01/2023 resolved 08910106 SN OMED-CT STENTED ARTERY 05/01/2023 resolved 043220486 SNOM ED-CT COPD 05/01/2023 resolved 83515198 SNOMED-CT Allergies and Adverse Reactions Allergy Substance Reaction Severity Start Date Concern Status Code Code Syste m MORPHINE Vomiting (SNOMED-CT: 754317227) Moderate Active 7052 RxNorm LATEX Active 0683351 RxNorm BAND-AID BRAND ADHESIVE BANDAGES Moderate Active 9724775 RxNorm Plan of Treatment MRI L SPINE [...] Date Code Code Sys tem Osteolysis 06/06/2022 078477898 SNOMED-CT Personal Care Team Section Performer Name Performer Role Active Date Inactive Da te
--- OUTSIDE RECORDS SUMMARY | 2023-12-22 15:05 | XMS_ITS ---
Author Organization Unknown Address [address] [place] [address] [phone] Phone Care Team Providers Care Biometric Fingerprinting Technician Name Role Phone LETITIA Gaspar Attending Unavailable Results MR LS SPINE WO CONTRAST - Co mpleted: 03/12/2023 08:39 LOINC: [facility] [place], [place] [address] PACS FOIL OPERATOR REPORT Patient Name: VIKRAM CLIFFORD MRN: Sex: : Age: [id number] F 1955 67 Account: Accession: Admit: StayType: [id number] 03/12/2023 O/P Ordered: Order ID: Submitted: Ordering Provider: 03/12/2023 07:54 [id number] NLS TONIA DONG Completed: Technologist: Resulted: 03/12/2023 [...] em Smoking History Current every day smoker 297258285 [facility] CT Sex Female Assessment You had the following problems:NIDDMCADMYOCARDIAL INFARCTGERDDEPRESSION Hospital Discharge Instructions Should you have any questions prior to discharge, please contact a member of your healthcare team. If you have left the hospital and have any questions, please contact your primary care physician. Reason For Referral No Data Found Problems Problem Start Date Resolved Date Status Code Code System NIDDM active 98700173 SNOMED-CT CAD active 86842639 SNOMED-CT MYOCARDIAL INFARCT active 93773751 S NOMED-CT GERD active 355350093 SNOMED-CT DEPRESSION active 40010301 SNOMED-CT HIGH CHOLESTEROL 05/01/2023 resolved 63727435 SN OMED-CT STENTED ARTERY 05/01/2023 resolved 810099665 SNOM ED-CT COPD 05/01/2023 resolved 27002761 SNOMED-CT Allergies and Adverse Reactions Allergy Substance Reaction Severity Start Date Concern Status Code Code Syste m MORPHINE Vomiting (SNOMED-CT: 652648688) Moderate Active 7052 RxNorm LATEX Active 6904742 RxNorm BAND-AID BRAND ADHESIVE BANDAGES Moderate Active 6098542 RxNorm Plan of Treatment MRI L SPINE [...] tem Degeneration of lumbar intervertebral disc 03/12/2023 76326365 SNOMED-CT Personal Care Team Section Performer Name Performer Role Active Date Inactive Av pérez
--- OUTSIDE RECORDS SUMMARY | 2023-12-22 15:06 | XMS_ITS ---
Author Organization Unknown Address [address] [place] [address] [phone] Phone Care Team Providers Care Tax Accounting Assistant Name Role Phone AMINAH TAVERA Joelle Attending Unavailable LETITIA Gaspar Primary Unavailable Social History Type Status Start Date End Date Code Code Syst em Smoking History Current every day smoker 506790973 SNOMED CT Sex Female Assessment You had [...] Date Status Code Code System NIDDM active 35942973 SNOMED-CT CAD active 28991948 SNOMED-CT MYOCARDIAL INFARCT active 86794557 S NOMED-CT GERD active 389387113 SNOMED-CT DEPRESSION active 72615067 SNOMED-CT HIGH CHOLESTEROL 05/01/2023 resolved 87576343 SN OMED-CT STENTED ARTERY 05/01/2023 resolved 730643649 SNOM ED-CT COPD 05/01/2023 resolved 53950666 SNOMED-CT Allergies and Adverse Reactions Allergy Substance Reaction Severity Start Date Concern Status Code Code Syste m MORPHINE Vomiting (SNOMED-CT: 774332773) Moderate Active 7052 RxNorm LATEX Active 6360177 RxNorm BAND-AID BRAND ADHESIVE BANDAGES Moderate Active 0780651 RxNorm Plan of Treatment MRI L SPINE [...]
--- OUTSIDE RECORDS SUMMARY | 2023-12-22 15:06 | XMS_ITS ---
Author Organization Unknown Address [address] [place] [address] [phone] Phone Care Team Providers Care Formula Room Worker Name Role Phone STACIA MCCURDY Registered Nurse Unavailable DARLING AGUILERA Attending Unavailable LETITIA Gaspar Primary Unavailable UNLISTED PROVIDER - REQUESTED Xhandoff Un available Results BLOOD BANK REPORT OF UNITS A JUANA* - Collect Date/Time: 05/01/2023 11:50 [facility] ID: [id number] [address] [place] [address], [phone] LOINC: Test Value Unit Reference Range Code Code System Flag Component Packed RBCs Leukopoor Blood Group A 883-9 LOINC Rh (D) NEGATIVE 51011-6 LOINC Antibody Screen. POSITIVE Antibody Id. NON SPECIFIC COLD AGGLUTININ TYPE AND SCREEN* - Collect D ate/Time: 05/01/2023 11:50 [facility] ID: [id number] [address] [place] [address], [phone] LOINC: Test Value Unit Reference Range Code Code System Flag Blood Group A 883-9 LOINC Rh (D) NEGATIVE 04904-1 LOINC Antibody Screen POSITIVE 1005-8 LOINC Antibody Id. NON SPECIFIC COLD AGGLUTININ CBC W/ DIFFERENTIAL* - Colle ct Date/Time: 05/01/2023 11:50 [facility] ID: [id number] [address] [place] [address], [address] LOINC: 98259-7 Test Value Unit Reference Range Code Code System Flag WBC 5.28 th/cmm L=5.00 H=10.00 6690-2 LOINC NEUT % 80.4 % L=40.0 H=80.0 H LYMPH % 13.3 % L=10.0 H=50.0 MONO % 4.4 % L=2.0 H=12.0 43498-4 LOINC EOS % 1.3 % L=0.0 H=8.0 BASO % 0.2 % L=0.0 H=3.0 IG % 0.4 % L=0.0 H=1.1 2514-8 LOINC NRBC % 0.0 % L=0.0 H=0.0 49238-5 LOINC NEUT abs count 4.3 th/cmm L=1.6 H=8.4 751-8 LOINC LYMPH abs count 0.7 th/cmm L=1.5 H=4.0 731-0 LOINC L MONO abs count 0.2 th/cmm L=0.2 H=1.0 742-7 LOINC EOS abs count 0.1 th/cmm L=0.0 H=0.5 711-2 LOINC BASO abs count 0.0 th/cmm L=0.0 H=0.2 704-7 LOINC IG abs count 0.0 th/cmm L=0.0 H=0.1 12926-0 LOINC NRBC abs count 0.0 mil/cmm L=0.0 H=0.0 08891-2 LOINC RBC 2.98 mil/cmm L=3.90 H=5.40 789-8 [...] em Smoking History Current every day smoker 986274607 SNOMED CT Sex Female Vital Signs Vital Sign Value Unit Ashe Value Ashe Unit Date/Time Recent/Initial? Code Code System Body Mass Index 29.26 kg/m2 05/01/2023 11:53 Initial 39844 -5 LOINC Systolic Blood Pressure 106 mm[Hg] [...] O2 Saturation 100 % 2023 13:00 Initial 85677 -5 LOINC Pulse 78.0 /min 05/01/2023 13:00 Most Recent 8867- 4 LOINC Pulse 81.0 /min 05/01/2023 11:53 Initial 8867- 4 LOINC Respiration 18 /min 05/01/19 24 13:00 Most Recent 9279- 1 LOINC Respiration 23 /min 05/01/19 24 11:53 Initial 9279- 1 LOINC Temperature 36.2 Maliha 97.2 F 05/01/19 24 11:53 Initial 8310- 5 LOINC Weight 72.57 kg 160.00 lbs 05/01/2023 11:53 Initial 05036 -7 LOINC Assessment You had the following problems:NIDDMCADMYOCARDIAL INFARCTGERDDEPRESSION Hospital Discharge Instructions Should you have any questions prior to discharge, please contact a member of your healthcare team. If you have left the hospital and have any questions, please contact your primary care physician. Reason For Referral No Data Found Procedures Procedure Name Date Status Code Code Batool m Carpal tunnel completed 13119767 SNOMEDCT Problems Problem Start Date Resolved Date Status Code Code System NIDDM active 23721958 SNOMED-CT CAD active 84228694 SNOMED-CT MYOCARDIAL INFARCT active 97276562 S NOMED-CT GERD active 270689400 SNOMED-CT DEPRESSION active 24654423 SNOMED-CT HIGH CHOLESTEROL 05/01/2023 resolved 23173945 SN OMED-CT STENTED ARTERY 05/01/2023 resolved 635592313 SNOM ED-CT COPD 05/01/2023 resolved 06017440 SNOMED-CT Allergies and Adverse Reactions Allergy Substance Reaction Severity Start Date Concern Status Code Code Syste m MORPHINE Vomiting (SNOMED-CT: 917659701) Moderate Active 7052 RxNorm LATEX Active 4749986 RxNorm BAND-AID BRAND ADHESIVE BANDAGES Moderate Active 3636385 RxNorm Plan of Treatment MRI L SPINE [...] Date Code Code Sys tem Anemia 05/01/2023 088643383 SNOMED-CT Personal Care Team Section Performer Name Performer Role Active Date Inactive Da beto
--- OUTSIDE RECORDS SUMMARY | 2023-12-22 15:06 | XMS_ITS ---
Author Organization Unknown Address [address] [place] [address] [phone] Phone Care Team Providers Care Formal Service Waiter Name Role Phone AMINAH TAVERA Joelle Attending Unavailable LETITIA Gaspar Primary Unavailable Results BLOOD BANK REPORT OF UNITS A JUANA* - Collect Date/Time: 05/12/2023 14:46 [facility] ID: [id number] [address] [place] [address], [phone] LOINC: Test Value Unit Reference Range Code Code System Flag Component Packed RBCs Leukopoor Blood Group A 883-9 LOINC Rh (D) NEGATIVE 28492-1 LOINC Antibody Screen. PREV. POS Antibody Id. NON SPECIFIC COLD AGGLUTININ TYPE AND CROSS 1 UNIT (INCLU JÚNIOR SCREEN)* - Collect Date/Time: 05/12/2023 13:54 [facility] ID: [id number] [address] [place] [address], [phone] LOINC: Test Value Unit Reference Range Code Code System Flag Blood Group A 883-9 LOINC Rh (D) NEGATIVE 56720-5 LOINC Antibody Screen Neg w/prev Ab 1005-8 LOINC Antibody Id. NON SPECIFIC COLD AGGLUTININ CBC W/ DIFFERENTIAL* - Colle ct Date/Time: 05/12/2023 13:54 [facility] ID: [id number] [address] [place], [place], [phone] LOINC: 62030-3 Test Value Unit Reference Range Code Code System Flag WBC 5.89 th/cmm L=5.00 H=10.00 6690-2 LOINC NEUT % 77.6 % L=40.0 H=80.0 LYMPH % 15.1 % L=10.0 H=50.0 MONO % 5.1 % L=2.0 H=12.0 02730-9 LOINC EOS % 1.4 % L=0.0 H=8.0 BASO % 0.5 % L=0.0 H=3.0 IG % 0.3 % L=0.0 H=1.1 2514-8 LOINC NRBC % 0.0 % L=0.0 H=0.0 66439-4 LOINC NEUT abs count 4.6 th/cmm L=1.6 H=8.4 751-8 LOINC LYMPH abs count 0.9 th/cmm L=1.5 H=4.0 731-0 LOINC L MONO abs count 0.3 th/cmm L=0.2 H=1.0 742-7 LOINC EOS abs count 0.1 th/cmm L=0.0 H=0.5 711-2 LOINC BASO abs count 0.0 th/cmm L=0.0 H=0.2 704-7 LOINC IG abs count 0.0 th/cmm L=0.0 H=0.1 93214-1 LOINC NRBC abs count 0.0 mil/cmm L=0.0 H=0.0 13521-9 LOINC RBC 3.33 mil/cmm L=3.90 H=5.40 789-8 [...] em Smoking History Current every day smoker 834165575 SNOMED CT Sex Female Assessment You had [...] Date Status Code Code System NIDDM active 85996504 SNOMED-CT CAD active 96005718 SNOMED-CT MYOCARDIAL INFARCT active 09266836 S NOMED-CT GERD active 888650247 SNOMED-CT DEPRESSION active 03010879 SNOMED-CT HIGH CHOLESTEROL 05/01/2023 resolved 21351649 SN OMED-CT STENTED ARTERY 05/01/2023 resolved 185856193 SNOM ED-CT COPD 05/01/2023 resolved 32293729 SNOMED-CT Allergies and Adverse Reactions Allergy Substance Reaction Severity Start Date Concern Status Code Code Syste m MORPHINE Vomiting (SNOMED-CT: 154421376) Moderate Active 7052 RxNorm LATEX Active 3143395 RxNorm BAND-AID BRAND ADHESIVE BANDAGES Moderate Active 9388313 RxNorm Plan of Treatment MRI L SPINE [...] Code Sys tem Iron deficiency anemia 05/12/2023 03959689 SNOME D-CT Personal Care Team Section Performer Name Performer Role Active Date Inactive Da te
--- OUTSIDE RECORDS SUMMARY | 2023-12-22 15:07 | XMS_ITS | Encounter Summary ---
Author Organization [facility] Address [address] [place] [address] Care Team Providers Care Streetcar Operator Name Role Phone Elizabeth Dsouza MD Primary Care Provider [phone] Reason for Visit * Reason Comments Anemia Seen at [facility] today and was called back for low Iron lab results // reports dark stool x 2+ months with capsule endo 2 months ago Encounter Details Date Type Department Care Team (Late st Contact Info) Description 12/04/2023 20:26 EDT - 12/04/2023 21:36 EDT Emergency [facility] Emergency Department [address] [place] [address] Anika Martinez MD [address] [facility], [address] [place] [address] Anemia, unspecified type (Primary Dx) Discharge Disposition: Home or Self Care Social History Tobacco Use Types Packs/Day Years Used Date Smoking Tobacco: Every Day Cigarettes 1 54.8 Started: 1970 Passive Smoke Exposure: Never Smokeless [...] be sent through Care Everywhere. * Anemia (Setswana) documented in this encounter Medications at Time [...] Means Destination Comment s Home or Self Nursing Home documented in this encounter ED Notes * [...] infusion. [facility] as patient has been feeling [...] arrange to have a iron infusion at [facility]. I once ag cathie offered her to get a unit of [...] that her hemoglobin was 6.4 at the [facility]. Patient denies any fever, cough, chest [...] documented in this encounter Plan of Treatment Upcoming Encounters Date Type Department Care Team (Late st Contact Info) Description 01/26/2024 8:30 EST Appointment [facility] CT Scan [address] [place] [address] documented as of this encounter Procedures Procedure Name Priority Date/Time Associated Diagnosis Comments TYPE AND SCREEN STAT 12/04/2023 20:49 EDT HOLD SST STAT 12/04/2023 20:41 EDT HOLD LAVENDER TOP STAT 12/04/2023 20: 41 EDT HOLD GREEN TOP STAT 12/04/2023 20:41 EDT HOLD BLUE TOP STAT 12/04/2023 20:41 EDT PROTIME Add-On 12/04/2023 20:41 EDT COMPLETE BLOOD COUNT AND DIFFERENTIAL STAT Add-on 12/04/2023 20:41 EDT BLOOD BANK HOLD STAT 12/04/2023 20:41 EDT IRON Add-On 12/04/2023 20:41 EDT COMPREHENSIVE METABOLIC PANEL (CMP) STAT Add-on 12/04/2023 20:41 EDT documented in this encounter Results * TYPE AND SCREEN (12/04/2023 20:49 EDT) ABO A 12/04/2023 21:31 EDT [facility] BLOOD BANK Rh Factor Negative 12/04/2023 21:31 [facility] BLOOD B[facility] Antibody Screen Negative 12/04/2023 21:31 [facility] BLOOD [facility] Specimen Expires: 12/07/2023 @ 23:59 12/04/2023 21:31 [facility] BLOOD BANK Blood VENOUS BLOOD / Unknown Venipuncture / Unknown 12/04/2023 20:49 EDT 12/04/2023 20:51 EDT Anika Martinez MD BLOOD BANK TESTS [facility] BLOOD BANK [address] [place] [address] * (ABNORMAL) PROTIME (12/04/2023 20:41 EDT) I.N.R. 1.2(H) 0.9 - 1.1 Ratio 12/04/2023 20:55 EDT [facility] Pro Time 14.0(H) 9.7 - 12.8 secs 12/04/2023 20:55 EDT [facility] Blood VENOUS BLOOD / Unknown Venipuncture / Unknown 12/04/2023 20:41 EDT 12/04/2023 20:43 EDT Narrative [facility] - 12/04/2023 20:55 EDT Moderate Intensity Coumadin INR = 2.0-3.0 Adjustments in anticoagulant therapy dose should be based on the INR and NOT on the Protime. Anika Martinez MD HEMATOLOGY & PF4 O RDERABLES Performing Organization Address [facility] Co de Phone Number [facility] [address] [place] [address] * IRON (12/04/2023 20:41 EDT) Iron 53 37 - 170 ??g/dL [facility]2023 [facility] Blood VENOUS BLOOD / Unknown Venipuncture / Unknown 12/04/2023 20:41 EDT 12/04/2023 20:43 EDT Anika Martinez MD CHEMISTRY & BLOOD GAS ORDERABLES Performing Organization Address [facility] Co de Phone Number [facility] [address] [place] [address] * (ABNORMAL) COMPREHENSIVE METABOLIC PANEL (CMP) (12/04/2023 20:41 EDT) Sodium 139 136 - 145 mmol/L 12/04/2023 21:17 [facility] Potassium 3.9 3.5 - 5.0 mmol/L 12/04/2023 21:17 [facility] Chloride 107 96 - 110 mmol/L 12/04/2023 21:17 [facility] CO2 Total 21(L) 22 - 32 mmol/L 12/04/2023 21:17 [facility] Glucose 93 70 - 99 mg/dl 12/04/2023 21:17 [facility] BUN 10 10 - 26 mg/dL 12/04/2023 21:17 [facility] Creatinine 1.49(H) 0.52 - 1.04 mg/dL 12/04/2023 21:17 [facility] eGFR 38(L) >60 mL/min/1.7 3m2 12/04/2023 21:17 [facility] Total Protein 6.9 6.3 - 8.2 g/dL 12/04/2023 21:17 [facility] Albumin 4.2 3.4 - 4.9 g/dL 12/04/2023 21:17 [facility] Alkaline Phosphatase 68 38 - 126 U/L 12/04/2023 21:17 [facility] AST 20 15 - 46 U/L 12/04/2023 21:17 [facility] ALT 13 <35 U/L 12/04/2023 21:17 [facility] Bilirubin, Total 1.3 <1.4 mg/dL 12/04/19 21:17 [facility] Calcium 9.6 8.5 - 10.5 mg/dL 12/04/2023 21:17 [facility] Albumin/Globulin Ratio 1.6 1.0 - 2.5 12/04/2023 21:17 [facility] Anion Gap 11 5 - 14 mmol/L 12/04/2023 21:17 [facility] Blood VENOUS BLOOD / Unknown Venipuncture / Unknown 12/04/2023 20:41 EDT 12/04/2023 20:43 EDT Anika Martinez MD CHEMISTRY & BLOOD GAS ORDERABLES [facility] [address] [place] [address] * (ABNORMAL) COMPLETE BLOOD COUNT AND DIFFERENTIAL (12/04/2023 20:41 EDT) WBC 4.62 4.00 - 12.40 K/cmm 12/04/2023 20:49 [facility] RBC 3.21(L) 3.86 - 5.04 M/cmm 12/04/2023 20:49 [facility] Hemoglobin 7.6(L) 11.6 - 15.2 g/dL 12/04/2023 20:49 [facility] HCT 27.6(L) 34.9 - 44.4 % 12/04/2023 20:49 [facility] MCV 86 81 - 98 fL 12/04/2023 20:49 [facility] MCH 23.7(L) 26.7 - 33.3 pg 12/04/2023 20:49 [facility] Hypochromia 1+ 12/04/2023 20:49 [facility] MCHC 27.5(L) 32.1 - 35.9 g/dL 12/04/2023 20:49 [facility] RDW-CV 18.0(H) <14.7 % 12/04/2023 20:49 [facility] RDW-SD 57.0(H) <50.4 fl 12/04/2023 20:49 [facility] Anisocytosis 1+ 12/04/2023 20:49 [facility] PLT 239 141 - 377 K/cmm 12/04/2023 20:49 [facility] MPV 10.1 9.5 - 12.7 fL 12/04/2023 20:49 [facility] % Neutrophils 65.8 Not Indicated % 12/04/2023 20:49 [facility] % Lymphocytes 23.6 Not Indicated % 12/04/2023 20:49 [facility] % Monocytes 7.6 Not Indicated % 12/04/2023 20:49 [facility] % Eosinophils 2.4 Not Indicated % 12/04/2023 20:49 [facility] % Basophils 0.4 Not Indicated % 12/04/2023 20:49 [facility] % Immature Grans 0.2 <0.9 % 12/04/19 20:49 [facility] Absolute Neutrophils 3.04 2.20 - 8.85 K/cmm 12/04/2023 20:49 [facility] Absolute Lymphocytes 1.09 1.09 - 3.30 K/cmm 12/04/2023 20:49 [facility] Absolute Monocytes 0.35 0.10 - 0.80 K/cmm 12/04/2023 20:49 [facility] Absolute Eosinophils 0.11 0.03 - 0.61 K/cmm 12/04/2023 20:49 [facility] ABS Basophils 0.02 0.01 - 0.11 K/cmm 12/04/2023 20:49 [facility] Absolute Immature Grans 0.01 0.00 - 0.06 K/cmm 12/04/2023 20:49 [facility] Type of Differential: Auto 12/04/2023 20:49 [facility] Blood VENOUS BLOOD / Unknown Venipuncture / Unknown 12/04/2023 20:41 EDT 12/04/2023 20:43 EDT Anika Martinez MD PACKAGES & DNA PRO BE ORDERABLES [facility] [address] [place] [address] * BLOOD BANK HOLD (12/04/2023 20:41 EDT) Hold BB Spec will exp at 23:59, 3 days from collect date 12/04/2023 20:44 EDT [facility] BLOOD BANK Blood VENOUS BLOOD / Unknown Venipuncture / Unknown 12/04/2023 20:41 EDT 12/04/2023 20:43 EDT Anika Martinez MD BLOOD BANK TESTS [facility] BLOOD BANK [address] [place] [address] * HOLD SST (12/04/2023 20:41 EDT) Hold Hold 12/04/2023 21:46 EDT [facility] Blood VENOUS BLOOD / Unknown Venipuncture / Unknown 12/04/2023 20:41 EDT 12/04/2023 20:43 EDT Anika Martinez MD LAB INFO SERVICE A ND SUPPORT & PHONE RESULT Performing Organization Address City/[facility]/ZIP Co de Phone Number [facility] [address] [place] [address] * HOLD LAVENDER TOP (12/04/2023 20:41 EDT) Hold Hold 12/04/2023 21:46 EDT [facility] Blood VENOUS BLOOD / Unknown Venipuncture / Unknown 12/04/2023 20:41 EDT 12/04/2023 20:43 EDT Anika Martinez MD LAB INFO SERVICE A ND SUPPORT & PHONE RESULT Performing Organization Address City/[facility]/ZIP Co de Phone Number [facility] [address] [place] [address] * HOLD GREEN TOP (12/04/2023 20:41 EDT) Hold Hold 12/04/2023 21:46 EDT [facility] Blood VENOUS BLOOD / Unknown Venipuncture / Unknown 12/04/2023 20:41 EDT 12/04/2023 20:43 EDT Anika Martinez MD LAB INFO SERVICE A ND SUPPORT & PHONE RESULT [facility] [address] [place] [address] * HOLD BLUE TOP (12/04/2023 20:41 EDT) Hold Hold 12/04/2023 21:46 EDT [facility] Blood VENOUS BLOOD / Unknown Venipuncture / Unknown 12/04/2023 20:41 EDT 12/04/2023 20:43 EDT Anika Martinez MD LAB INFO SERVICE A ND SUPPORT & PHONE RESULT [facility] [address] [place], [place] [id number] documented in this encounter Visit Diagnoses Diagnosis Anemia, unspecified type- Primary documented in this encounter Orders Nursing Count Last Ordered Date First Orde red Date CALL BLOOD BANK ([facility] 4120) TIER 1 ORDERS ARE PLACED 1 12/04/2023 documented in this encounter Care Teams Streetcar Operator Relationship Specialty Start Date End Date Elizabeth Dsouza MD [address] [place] [id number] PCP - General 02/13/12 documented as of this encounter
--- OUTSIDE RECORDS SUMMARY | 2023-12-22 15:07 | XMS_ITS | Clinical Summary ---
Author Organization [facility] Address [address] [place] [address] Care Team Providers Care Campus Monitor Name Role Phone Elizabeth Dsouza MD Primary Care Provider [phone] Allergies Active Allergy Reactions Criticality Noted Date [...] original. Patient has given permission for [facility] to verbally discuss the following information [...] Overview: Added automatically from request for surgery [id number] Encounters Date Type Department Care Team Description 12/04/2023 20:26 EDT - 12/04/2023 21:36 EDT Emergency [facility] Emergency Department [address] [place] [address] Anika Martinez MD Anemia, unspecified type (Primary Dx) Discharge Disposition: Home or Self Care 10/22/2023 6:59 EDT - 10/22/2023 23:59 EDT Hospital Encounter [facility] Endoscopy [address] [place] [address] Mahi Hernandez MD Mele[place]as Discharge Disposition: Home or Self Care 10/01/2023 9:23 EDT - 10/01/2023 23:59 EDT Hospital Encounter [facility] Endoscopy [address] [place] [address] Mahi Hernandez MD Dysphagia, unspecified type Discharge Disposition: Home or Self Care 10/01/2023 Orders Only [facility] Gastroenterology [address] [place] [address] Mahi Hernandez MD Melena (Primary Dx) from Last 3 Months Surgical History Surgery [...] intestine COPD (chronic obstructive pu lmonary disease) ([facility]) 07/23/22- well controlled w/ u se of [...] 12/04/20231933 EDT Temperature 36.7 ??C (98 ??F) 12/04/2023 193 EDT Respiratory Rate 16 12/04/20232124 EDT Oxygen Saturation 97% 12/04/20232124 EDT Inhaled Oxygen Concentration - - Weight 65.3 kg (144 lb) 12/04/20231933 EDT Height 157.5 cm (5' 2) 12/04/20231933 EDT Body Mass Index 26.34 12/04/20231933 EDT Plan of Treatment Upcoming Encounters Date Type Department Care Team (Late st Contact Info) Description 01/26/2024 8:30 EST Appointment [facility] CT Scan [address] [place] [address] Health Maintenance Due Date Last Done Comments [...] AND DIFFERENTIAL STAT Add-on 12/04/2023 20:41 EDT HOLD SST STAT 12/04/2023 20:41 EDT HOLD LAVENDER TOP STAT 12/04/2023 20: 41 EDT HOLD GREEN TOP STAT 12/04/2023 20:41 EDT HOLD BLUE TOP STAT 12/04/2023 20:41 EDT CAPSULE ENDOSCOPY Routine 10/22/2023 8:0 0 EDT Melena ECG REPORT - SCANNED 10/03/2023 11:20 EDT SURGICAL PATHOLOGY Routine 10/01/2023 12 :41 EDT Dysphagia, unspecified type UPPER ENDOSCOPY (EGD) Routine 10/01/2023 10:30 EDT Dysphagia, unspecified type CT CHEST WO CONTRAST Routine 07/23/2023 17:06 EDT Squamous cell carcinoma of lung, right (HCC-CMS) from Last 3 Months or Most Recently Relevant to Health Maintenance Results * TYPE AND SCREEN (12/04/2023 20:49 EDT) ABO A 12/04/2023 21:31 EDT [facility] Rh Factor Negative 12/04/2023 21:31 EDT [facility] BLOOD [facility] Antibody Screen Negative 12/04/2023 21:31 EDT [facility] Specimen Expires: 12/07/2023 @ 23:59 12/04/2023 21:31 EDT [facility] Blood VENOUS BLOOD / Unknown Venipuncture / Unknown 12/04/2023 20:49 EDT 12/04/2023 20:51 EDT Anika Martinez MD BLOOD BANK TESTS Performing Organization Address City/[facility] Co de Phone Number [facility] [address] [place] [id number] * HOLD SST (12/04/2023 20:41 EDT) Hold Hold 12/04/2023 21:[address] [facility] Blood VENOUS BLOOD / Unknown Venipuncture / Unknown 12/04/2023 20:41 EDT 12/04/2023 20:43 EDT Anika Martinez MD LAB INFO SERVICE A ND SUPPORT & PHONE RESULT [facility] [address] [place] [address] * HOLD LAVENDER TOP (12/04/2023 20:41 EDT) Hold Hold 12/04/2023 21:[address] [facility] Blood VENOUS BLOOD / Unknown Venipuncture / Unknown 12/04/2023 20:41 EDT 12/04/2023 20:43 EDT Anika Martinez MD LAB INFO SERVICE A ND SUPPORT & PHONE RESULT Performing Organization Address [facility]/ZIP Co de Phone Number [facility] [address] [place] [address] * HOLD GREEN TOP (12/04/2023 20:41 EDT) Hold Hold 12/04/2023 21:[address] [facility] Blood VENOUS BLOOD / Unknown Venipuncture / Unknown 12/04/2023 20:41 EDT 12/04/2023 20:43 EDT Anika Martinez MD LAB INFO SERVICE A ND SUPPORT & PHONE RESULT Performing Organization Address [facility]/ZIP Co de Phone Number [facility] [address] [place] [address] * HOLD BLUE TOP (12/04/2023 20:41 EDT) Hold Hold 12/04/2023 21:[address] [facility] Blood VENOUS BLOOD / Unknown Venipuncture / Unknown 12/04/2023 20:41 EDT 12/04/2023 20:43 EDT Anika Martinez MD LAB INFO SERVICE A ND SUPPORT & PHONE RESULT Performing Organization Address City/[facility]/ZIP Co de Phone Number [facility] [address] [place] [address] * (ABNORMAL) PROTIME (12/04/2023 20:41 EDT) [facility] I.N.R. 1.2(H) 0.9 - 1.1 Ratio 12/04/2023 20:55 [facility] Pro Time 14.0(H) 9.7 - 12.8 secs 12/04/2023 20:55 [facility] Blood VENOUS BLOOD / Unknown Venipuncture / Unknown 12/04/2023 20:41 EDT 12/04/2023 20:43 [facility] - 12/04/2023 20:55 EDT Moderate Intensity Coumadin INR = 2.0-3.0 Adjustments in anticoagulant therapy dose should be based on the INR and NOT on the Protime. Anika Martinez MD HEMATOLOGY & PF4 O RDERABLES Performing Organization Address City/State/[facility] Co de Phone Number [facility] [address] [place] [address] * (ABNORMAL) COMPLETE BLOOD COUNT AND DIFFERENTIAL (12/04/2023 20:41 EDT) [facility] WBC 4.62 4.00 - 12.40 K/cmm 12/04/2023 20:49 [facility] RBC 3.21(L) 3.86 - 5.04 M/cmm 12/04/2023 20:49 [facility] Hemoglobin 7.6(L) 11.6 - 15.2 g/dL 12/04/2023 20:49 [facility] HCT 27.6(L) 34.9 - 44.4 % 12/04/2023 20:49 [facility] MCV 86 81 - 98 fL 12/04/2023 20:49 [facility] MCH 23.7(L) 26.7 - 33.3 pg 12/04/2023 20:49 [facility] Hypochromia 1+ 12/04/2023 20:49 [facility] MCHC 27.5(L) 32.1 - 35.9 g/dL 12/04/2023 20:49 [facility] RDW-CV 18.0(H) <14.7 % 12/04/2023 20:49 [facility] RDW-SD 57.0(H) <50.4 fl 12/04/2023 20:49 [facility] Anisocytosis 1+ 12/04/2023 20:49 [facility] PLT 239 141 - 377 K/cmm 12/04/2023 20:49 [facility] MPV 10.1 9.5 - 12.7 fL 12/04/2023 20:49 [facility] % Neutrophils 65.8 Not Indicated % 12/04/2023 20:49 [facility] % Lymphocytes 23.6 Not Indicated % 12/04/2023 20:49 [facility] % Monocytes 7.6 Not Indicated % 12/04/2023 20:49 [facility] % Eosinophils 2.4 Not Indicated % 12/04/2023 20:49 [facility] % Basophils 0.4 Not Indicated % 12/04/2023 20:49 [facility] % Immature Grans 0.2 <0.9 % 12/04/19 20:49 [facility] Absolute Neutrophils 3.04 2.20 - 8.85 K/cmm 12/04/2023 20:49 [facility] Absolute Lymphocytes 1.09 1.09 - 3.30 K/cmm 12/04/2023 20:49 [facility] Absolute Monocytes 0.35 0.10 - 0.80 K/cmm 12/04/2023 20:49 [facility] Absolute Eosinophils 0.11 0.03 - 0.61 K/cmm 12/04/2023 20:49 [facility] ABS Basophils 0.02 0.01 - 0.11 K/cmm 12/04/2023 20:[address] [facility] Absolute Immature Grans 0.01 0.00 - 0.06 K/cmm 12/04/2023 20:[address] [facility] Type of Differential: Auto 12/04/2023 20:[address] [facility] Blood VENOUS BLOOD / Unknown Venipuncture / Unknown 12/04/2023 20:41 EDT 12/04/2023 20:43 EDT Anika Martinez MD PACKAGES & DNA PRO BE ORDERABLES Performing Organization Address [facility]/ZIP Co de Phone Number [facility] [address] [place] [address] * BLOOD BANK HOLD (12/04/2023 20:41 EDT) Hold BB Spec will exp at 23:59, 3 days from collect date 12/04/2023 20:44 EDT [facility] Blood VENOUS BLOOD / Unknown Venipuncture / Unknown 12/04/2023 20:41 EDT 12/04/2023 20:43 EDT Anika Martinez MD BLOOD BANK TESTS Performing Organization Address [facility] Co de [facility] Number [facility] [address] [place] [address] * IRON (12/04/2023 20:41 EDT) Iron 53 37 - 170 ??g/dL 12/04/2023 21:[address] [facility] Blood VENOUS BLOOD / Unknown Venipuncture / Unknown 12/04/2023 20:41 EDT 12/04/2023 20:43 EDT Anika Martinez MD CHEMISTRY & BLOOD GAS ORDERABLES Performing Organization Address City/[facility] Co de Phone Number [facility] [address] [place], [place] [id number] * (ABNORMAL) COMPREHENSIVE METABOLIC PANEL (CMP) (12/04/2023 20:41 EDT) Sodium 139 136 - 145 mmol/L 12/04/2023 21:17 [facility] Potassium 3.9 3.5 - 5.0 mmol/L 12/04/2023 21:17 [facility] Chloride 107 96 - 110 mmol/L 12/04/2023 21:17 [facility] CO2 Total 21(L) 22 - 32 mmol/L 12/04/2023 21:17 [facility] Glucose 93 70 - 99 mg/dl 12/04/2023 21:17 [facility] BUN 10 10 - 26 mg/dL 12/04/2023 21:17 [facility] Creatinine 1.49(H) 0.52 - 1.04 mg/dL 12/04/2023 21:17 [facility] eGFR 38(L) >60 mL/min/1.7 3m2 12/04/2023 21:17 [facility] Total Protein 6.9 6.3 - 8.2 g/dL 12/04/2023 21:17 [facility] Albumin 4.2 3.4 - 4.9 g/dL 12/04/2023 21:17 [facility] Alkaline Phosphatase 68 38 - 126 U/L 12/04/2023 21:17 [facility] AST 20 15 - 46 U/L 12/04/2023 21:17 [facility] ALT 13 <35 U/L 12/04/2023 21:17 [facility] Bilirubin, Total 1.3 <1.4 mg/dL 12/04/19 21:17 [facility] Calcium 9.6 8.5 - 10.5 mg/dL 12/04/2023 21:17 [facility] Albumin/Globulin Ratio 1.6 1.0 - 2.5 12/04/2023 21:17 [facility] Anion Gap 11 5 - 14 mmol/L 12/04/2023 21:[address] [facility] Blood VENOUS BLOOD / Unknown Venipuncture / Unknown 12/04/2023 20:41 EDT 12/04/2023 20:43 EDT Anika Martinez MD CHEMISTRY & BLOOD GAS ORDERABLES Performing Organization Address City/State/[facility] Co de Phone Number [facility] [address] [place] [address] * CAPSULE ENDOSCOPY (10/22/2023 8:00 EDT) Anatomical Region Laterality Modality Endoscopy Narrative 10/22/2023 8:[address] [facility] ?? [address] [address] ?? Patient Name ?MELODIE CLIFFORD Date of ?1955 Record Number ?[id number] Date/Time of Procedure ?10/22/2023, 08:00:00 AM Endoscopist ?Mahi Hernandez MD ?? Petrol Tanker Driver ? Referring Physician(s) ?? MAHI HERNANDEZ , [...] EDT) 10/03/2023 11:2 0 EDT Scan 2 Jewelry Manager PROCEDURE/MINOR PHILIPPE GICAL ORDERABLES * SURGICAL PATHOLOGY (10/01/2023 12:41 EDT) Note to Patient The following pathology results have been interpreted by your pathologist and may be available to you before your health provider has had the opportunity to review them. Please allow time for your provider to receive these results and explore management options, if applicable. 10/02/2023 14:[address] [facility] Final Diagnosis A. DISTAL ESOPHAGUS BIOPSY: - Squamous mucosa with mild chronic inactive esophagitis and reactive changes. - Negative for eosinophilia. B. PROXIMAL ESOPHAGUS BIOPSY: - Squamous mucosa with mild chronic inactive esophagitis and reactive changes. - Negative for eosinophilia. 10/02/2023 14:[address] [facility] Attestation By the signature below, the attending physician certifies that they have 1) personally conducted a gross and/or microscopic examination of the described specimen(s), and/or personally interpreted the results of laboratory testing of the described specimen(s), and 2) personally rendered or confirmed the above diagnosis. 10/02/2023 14:48 [facility] at 1448 Clinical History Dysphagia, unspecified type 10/02/2023 14:48 [facility] Gross Description A. Received in formalin with, Melodie Clifford and, esophagus Bx distal with forceps and consists of 2 portions of pale franco tissue, 3 mm and 4 x 3 x 2 mm. In toto, A1. B. Received in formalin with, Melodie Clifford and, esophagus Bx proximal with forceps and consists of a 5 x 3 x 2 mm portion of pale franco tissue. In toto, B1. CHENG LEIVA([facility]) 10/01/2023 14:41 10/02/2023 14:48 [facility] Performing Lab [facility] 10/02/2023 14:48 [facility] Scanned Images 10/02/2023 14:48 [facility] Tissue ESOPHAGEAL STRUCTURE / Unknown 10/01/2023 12:41 EDT 10/01/2023 14:31 EDT Tissue specimen (specimen) ESOPHAGEAL STRUCTURE / Unknown 10/01/2023 12:41 EDT 10/01/2023 14:31 EDT Mahi Hernandez MD PATHOLOGY ORDERABLES [facility] [address] [place] [address] * UPPER ENDOSCOPY (EGD) (10/01/2023 10:30 EDT) Anatomical Region Laterality Modality Endoscopy Narrative 10/01/2023 10:[address] [facility] ?? [address] [place] [address] ?? Patient Name ?MELODIE CLIFFORD Date of ?1955 Record Number ?[id number] Date/Time of Procedure ?10/01/2023, 10:30:00 AM Endoscopist ?Mahi Hernandez MD ?? Petrol Tanker Driver ? Referring Physician(s) ?? Elizabeth Dsouza M.D. Anesthesiologist ? Procedure Performed: Upper Endoscopy (EGD) Indications for Exam: dysphagia, melena Instruments: ? [id number] ([id number]) Medications: ?Fentanyl 100 mcg, Versed 5 mg, [...] End: 12:41:39 PM Signature: Mahi Hernandez MD, MGaurav. This note was electronically signed on 10/01/2023 12:45:59 PM By Mahi Hernandez MD M.D. Elizabeth Dsouza MD GI PROCEDURE ORDERAB LES * CT CHEST WO CONTRAST (07/23/2023 17:06 [...] REGARDING THIS REPORT PLEASE CALL [facility] AT [phone] Narrative 07/23/2023 18:50 EDT PROCEDURE INFORMATION: Exam: [...] changes. Soft tissues: Unremarkable. Procedure Note Larry Mroeno MD - 07/23/2023 PROCEDURE INFORMATION: Exam: CT [...] CONCERNS REGARDING THIS REPORT PLEASE CALL [facility] [phone] Kaiser Miller MD IMG CT ORDERABLES from Last 3 Months or Most Recently Relevant to Health Maintenance Advance Directives For more information, please contact: [phone] Documents on File Type Date Recorded Patient Slab Tripper Expl anation Advance Directive 08/13/2022 [place] advance directive Care Teams Campus Monitor Relationship Specialty Start Date End Date Elizabeth Dsouza MD [address] [place] [phone] [facility] - General 02/13/12
--- OUTSIDE RECORDS SUMMARY | 2023-12-22 15:07 | XMS_ITS | Encounter Summary ---
Author Organization [facility] Address [address] [place] [address] Care Team Providers Care Radio Mechanic Helper Name Role Phone Elizabeth Dsouza MD Primary Care Provider [phone] Encounter Details Date Type Department Care Team (Late st Contact Info) Description 09/23/2023 Lab Requisition [facility] Pathology & Laboratory Medicine - [facility] [address] [place], [place] [address] Elizabeth Dsouza MD [address] [place] [phone] Encounter for screening for malignant neoplasm [...] as of this encounter Plan of Treatment Upcoming Encounters Date Type Department Care Team (Late st Contact Info) Description 01/26/2024 8:30 EST Appointment [facility] CT Scan [address] [place] [address] documented as of this encounter Procedures Procedure Name Priority Date/Time Associated Diagnosis Comments PAP TEST Today 09/19/2023 15:00 EDT Encounter for screening for malignant neoplasm of cervix Encounter for general adult medical examination with abnormal findings documented in this encounter Results * PAP TEST (09/19/2023 15:00 EDT) Specimens A. Cervix and/or Endocervix , ThinPrep Imaging System with Manual Evaluation 09/26/2023 12:41 [facility] Specimen Adequacy Satisfactory for Evaluation - transformation zone component absent Scant squamous epithelial component 09/26/2023 12:41 [facility] General Categorization Epithelial Cell Abnormality 09/26/2023 12:41 [facility] Descriptive Diagnosis Squamous Cell Abnormality - Atypical squamous cells, undetermined significance (ASC-US). 09/26/2023 12:41 [facility] Diagnosis Comment Few nucleated squamous cells present with abundant hyperkeratosis. 09/26/2023 12:41 [facility] Educational Comments [facility] recommends following the ASCCP's management guidelines which may be found at www.asccp.org 09/26/2023 12:41 [facility] Attestation By the signature below, the attending physician certifies that they have personally conducted a gross and/or microscopic examination of the described specimens and rendered or confirmed the above diagnosis. 09/26/2023 12:41 [facility] at 1241 Clinical History SEE BELOW 09/26/19 12:41 [facility] Performing Lab [facility] 09/26/2023 12:41 EDT [facility] Scanned Images 09/26/2023 12:41 EDT [facility] Pap Test CERVIX UTERI STRUCTURE / Unknown 09/19/2023 15:00 EDT 09/23/2023 13:19 EDT Elizabeth Dsouza MD PATHOLOGY ORDERABLES [facility] [address] [place] [address] documented in this encounter Visit Diagnoses Diagnosis Encounter for screening for malignant neoplasm of cervix Screening for malignant neoplasm of the cervix Encounter for general adult medical examination with abnormal findings Unspecified general medical examination documented in this encounter Care Teams Radio Mechanic Helper Relationship Specialty Start Date End Date Elizabeth Dsouza MD [address] [place] [phone] PCP - General 02/13/12 documented as of this encounter
--- OUTSIDE RECORDS SUMMARY | 2023-12-22 15:07 | XMS_ITS ---
Author Organization Unknown Address [address] [place] [address] [phone] Phone Care Team Providers Care Patient Support Representative Name Role Phone NINA BECK Registered Nurse Unavailable CABRERA ORDOÑEZ Attending Unavailable DANIEL Sosa ER Unavailable LETITIA Gaspar Primary Unavailable UNLISTED PROVIDER - REQUESTED Xhandoff Un available Results BLOOD BANK REPORT OF UNITS A JUANA* - Collect Date/Time: 12/05/2023 15:23 [facility] ID: [id number] [address] [place] [address], [phone] LOINC: Test Value Unit Reference Range Code Code System Flag Component Packed RBCs Leukopoor Blood Group A 883-9 LOINC Rh (D) NEGATIVE 29933-4 LOINC Antibody Screen. PREV. POS Antibody Id. NON SPECIFIC COLD AGGLUTININ ORDER VENOUS BLOOD GAS* - Co llect Date/Time: 12/05/2023 15:00 [facility] ID: [id number] [address] [place] [address], [phone] LOINC: Test Value Unit Reference Range Code Code System Flag Specimen type: VENOUS pH (venous) 7.34 L=7.38 H=7.46 2746-6 LOINC L PCO2 (venous) 39.5 mm Hg L=41.0 H=51.0 2703-7 LOINC L PO2 (venous) 57 mm Hg L=30 H=50 2705-2 LOINC H HCO3 21 mmol/L L=22 H=26 1960-4 LOINC L TCO2 (venous) 22 mmol/L L=22 H=28 3533-7 LOINC BASE EXCESS (venous) -5 mmol/L L=-2 H=3 3097-3 LOINC L Assist vent. Resp. Rate /min. Temp. [facility] COVID FLU RSV GENEXPE RT - Collect Date/Time: 12/05/2023 14:10 [facility] ID: [id number] [address] [place] [address], [phone] LOINC: 93133-8 Test Value Unit Reference Range Code Code System Flag COVID NEGATIVE Normal: Negative 77395-7 LOINC INFLUENZA A DNA NEGATIVE Normal: Negative 35006-5 LOINC INFLUENZA B DNA NEGATIVE Normal: Negative 76146-0 LOINC RSV DNA NEGATIVE Normal: Negative 27166-1 LOINC TROPONIN HIGH SENSITIVITY* - Collect Date/Time: 12/05/2023 13:36 [facility] ID: [id number] [address] [place] [address], 5661 LOINC: 81522-0 Test Value Unit Reference Range Code Code System Flag TROPONIN HS 7.4 pg/mL L=0.0 H=60.4 Specimen seq. RANDOM BASIC METABOLIC PANEL (BMP) - Collect Date/Time: 12/05/2023 13:36 [facility] ID: [id number] [address] [place] [address], 5661 LOINC: 63392-2 Test Value Unit Reference Range Code Code System Flag GLUCOSE 138 mg/dL L=70 H=116 2345-7 LOINC H BUN 12 mg/dL L=6 H=25 3094-0 LOINC CREATININE 1.69 mg/dL L=0.51 H=0.95 2160-0 LOINC H SODIUM SERUM 138 mmol/L L=136 H=145 2951-2 LOINC POTASSIUM SERUM 3.4 mmol/L L=3.4 H=5.2 2823-3 LOINC CHLORIDE SERUM 105 mmol/L L=96 H=110 2075-0 LOINC CARBON DIOXIDE (CO2) 24 mmol/L L=22 H=34 2028-9 LOINC ANION GAP 9.5 mmol/L 35509-6 LOINC CALCIUM SERUM 8.9 mg/dL L=8.2 H=10.2 58779-1 LOINC AGE 68 years eGFR (non-Afr.Amer.) 30 mL/min 95879-8 LOINC eGFR (Afr-Pakistani) 37 mL/min 13001-3 LOINC CBC W/ DIFFERENTIAL* - Colle ct Date/Time: 12/05/2023 13:36 [facility] ID: [id number] [address] [place], [place], [address] LOINC: 27345-7 Test Value Unit Reference Range Code Code System Flag WBC 6.78 th/cmm L=5.00 H=10.00 6690-2 LOINC NEUT % 79.6 % L=40.0 H=80.0 LYMPH % 12.1 % L=10.0 H=50.0 MONO % 5.9 % L=2.0 H=12.0 98617-1 LOINC EOS % 1.5 % L=0.0 H=8.0 BASO % 0.6 % L=0.0 H=3.0 IG % 0.3 % L=0.0 H=1.1 2514-8 LOINC NRBC % 0.0 % L=0.0 H=0.0 62118-1 LOINC NEUT abs count 5.4 th/cmm L=1.6 H=8.4 751-8 LOINC LYMPH abs count 0.8 th/cmm L=1.5 H=4.0 731-0 LOINC L MONO abs count 0.4 th/cmm L=0.2 H=1.0 742-7 LOINC EOS abs count 0.1 th/cmm L=0.0 H=0.5 711-2 LOINC BASO abs count 0.0 th/cmm L=0.0 H=0.2 704-7 LOINC IG abs count 0.0 th/cmm L=0.0 H=0.1 48729-1 LOINC NRBC abs count 0.0 mil/cmm L=0.0 H=0.0 38403-0 LOINC RBC 3.02 mil/cmm L=3.90 H=5.40 789-8 LOINC L HEMOGLOBIN 7.4 gm/dL L=12.0 H=16.0 718-7 LOINC L HEMATOCRIT 26 % L=37 H=47 4544-3 LOINC L MCV 86 fL L=82 H=92 787-2 LOINC MCH 24.5 pg L=27.0 H=31.0 785-6 LOINC L MCHC 28.4 % L=32.0 H=36.0 786-4 LOINC L RDW-SD 57.9 fL L=39.0 H=49.0 788-0 LOINC H PLATELET COUNT 246 th/cmm L=150 H=450 777-3 LOINC Anisocytosis 1+ Microcytes 1+ Hypochromia 1+ TYPE AND SCREEN* - Collect D ate/Time: 12/05/2023 13:36 [facility] ID: [id number] [address] [place], [place], [phone] LOINC: Test Value Unit Reference Range Code Code System Flag Blood Group A 883-9 LOINC Rh (D) NEGATIVE 90365-0 LOINC Antibody Screen Neg w/prev Ab 1005-8 LOINC Antibody Id. NON SPEC COLD AGGLUTININ XR CHEST PORTABLE OR 1V - Co mpleted: 12/05/2023 13:42 LOINC: [facility] RADIOLOGY [place], [place] [address] RADIOLOGY LOAN EXPEDITOR REPORT Patient Name: VIKRAM CLIFFORD MRN: Sex: : Age: [id number] F 1955 Account: Accession: Admit: StayType: [id number] 12/05/2023 E Ordered: Order ID: Submitted: Ordering Provider: 12/05/2023 13:34 [id number] TIAGO CHAVEZ Completed: Technologist: Resulted: 12/05/2023 13:39 YANNI 12/05/2023 13:47 EXAMINATION: XR CHEST PORTABLE OR 1V CLINICAL HISTORY: Reason for Chest: COPD Add'l Info: TECHNIQUE: AP portable upright view of the chest COMPARISON: None FINDINGS: There is a small linear opacity laterally in the right midlung field. The visualized lungs are otherwise clear and well-expanded. Heart and pulmonary vasculature are normal. Sclerosis is seen in the aorta. No acute osseous finding. IMPRESSION: Small linear opacity in the right lung is likely either partial atelectasis or scarring. No acute findings in the chest. Thank you for letting us participate in the care of this patient. If you are a health care provider and have any questions regarding this report, please contact the number below. For patients who have questions please contact the health memory care program resident that requested your imaging first. Electronically signed by: Eric Kern MD [facility] ([phone]), at 12/05/2023 1:47 PM Social History Type Status Start Date End Date Code Code Syst em Smoking History Current every day smoker 840848046 SNOMED CT Sex Female Vital Signs Vital Sign Value Unit Inkom Value Inkom Unit Date/Time Recent/Initial? Code Code System Body Mass Index 26.34 kg/m2 12/05/2023 13:37 Initial 60899 -5 LOINC Systolic Blood Pressure 125 mm[Hg] 12/05/2023 17:50 Most Recent 8480- 6 LOINC Diastolic Blood Pressure 54 mm[Hg] 12/05/2023 17:50 Most Recent 8462- 4 LOINC Systolic Blood Pressure 90 mm[Hg] 12/05/2023 13:37 Initial 8480- 6 LOINC Diastolic Blood Pressure 64 mm[Hg] 12/05/2023 13:37 Initial 8462- 4 LOINC Body Surface Area 1.69 m2 12/05/2023 13:37 Initial 3140- 1 LOINC Height 157.480 0 cm 62.00 in 12/05/2023 13:37 Initial 8302- 2 LOINC O2 Saturation 99 % 2023 17:50 Most Recent 59762 -5 LOINC O2 Saturation 95 % 2023 13:37 Initial 69491 -5 LOINC Pulse 72.0 /min 12/05/2023 17:50 Most Recent 8867- 4 LOINC Pulse 105.0 /min 12/05/2023 13:37 Initial 8867- 4 LOINC Respiration 17 /min 12/05/19 17:50 Most Recent 9279- 1 LOINC Respiration 24 /min 12/05/19 13:37 Initial 9279- 1 LOINC Temperature 36.9 Maliha 98.4 F 12/05/19 17:50 Most Recent 8310- 5 LOINC Temperature 37.8 Maliha 100.0 F 12/05/19 13:37 Initial 8310- 5 LOINC Weight 65.32 kg 144.00 lbs 12/05/2023 13:37 Initial 93316 -7 LOINC Assessment You had the following problems:NIDDMCADMYOCARDIAL INFARCTGERDDEPRESSION Hospital Discharge Instructions Should you have any questions prior to discharge, please contact a member of your healthcare team. If you have left the hospital and have any questions, please contact your primary care physician. Reason For Referral No Data Found Problems Problem Start Date Resolved Date Status Code Code System NIDDM active 86144682 SNOMED-CT CAD active 98048261 SNOMED-CT MYOCARDIAL INFARCT active 84789208 S NOMED-CT GERD active 763646991 SNOMED-CT DEPRESSION active 63960692 SNOMED-CT HIGH CHOLESTEROL 05/01/2023 resolved 28577902 SN OMED-CT STENTED ARTERY 05/01/2023 resolved 829021707 SNOM ED-CT COPD 05/01/2023 resolved 78166721 SNOMED-CT Allergies and Adverse Reactions Allergy Substance Reaction Severity Start Date Concern Status Code Code Syste m MORPHINE Vomiting (SNOMED-CT: 101685970) Moderate Active 7052 RxNorm LATEX Active 7832808 RxNorm BAND-AID BRAND ADHESIVE BANDAGES Moderate Active 4459536 RxNorm Plan of Treatment MRI L SPINE [...] Diagnosis Start Date Code Code Sys tem Anemia, unspecified 12/05/2023 SNOMED-C T Personal Care Team Section Performer Name Performer Role Active Date Inactive Da te Laboratory Narrative Notes [facility] \[id number]\\[id number]\\BM09\ \MRLo\ [place] [address] ----PATIENT NAME---- SEX AGE ADMIT M/R# PATIENT# RM/LOC TYPE BISHOP VIKRAM Lai F [id number] E/R ORD: ATIF ATT: SEC: RANJAN: LETITIA SHERIFF PHONE: ---PROCEDURE--- TYPE AND SCREEN* --ORDERED-- --COLLECTED-- --REC'D-- --RESULTED-- --VERIFIED--- 12/05/23 1334 12/05/23 1336 12/05/23 1342 12/05/23 1513 12/05/23 1513 RIKA ER SB MLB MLB \MRHx\ BLOOD TYPE AND ANTIBODY SCREEN { Blood Group A_ 12/05/23.1511.MLB. . .M 883-9 { Rh (D) NEGATIVE_ 12/05/23.MLB. . .M 76883-1 { Antibody Screen ___Neg_w/prev_Ab_ 12/05/23.MLB. . .M 1005-8 { Antibody Id. _NON_SPEC_COLD_AGGLUTININ 12/05/23.1511.MLB. Valid thru date: _12/08/23____ 12/05/23.1511.MLB. time: _2358 12/05/23.1511.MLB. 12/05/23.1512.MLB.COMPLETE
--- OUTSIDE RECORDS SUMMARY | 2023-12-22 15:07 | XMS_ITS | Encounter Summary ---
Author Organization [facility] Address [address] [place] [address] Care Team Providers Care Tractor Trailer Moving Van Driver Name Role Phone Elizabeth Dsouza MD Primary Care Provider [phone] Reason for Referral * Referral (Routine/Next Available) - Authorization Not Required Specialty Diagnoses / Procedures Referred By Loli rose Referred To Contact Diagnoses Melena Procedures CAPSULE ENDOSCOPY Mahi Hernandez MD [address] [place] [phone] [address] Referral ID Status Reason Start Date Expiration Date Visits Requested Visits Authorized [id number] Authorization Not Required 10/01/2023 1 1 Reason for Visit * Auth/Cert (Routine) Specialty Diagnoses / Procedures Referred By Loli rose Referred To Contact Referral ID Status Reason Start Date Expiration Date Visits Re quested Visits Authorized [id number] 1 1 Encounter Details Date Type Department Care Team (Late st Contact Info) Description 10/22/2023 6:59 EDT - 10/22/2023 23:59 EDT Hospital Encounter [facility] Endoscopy [address] [place] [address] [phone] Mahi Hernandez MD [address] [place] [phone] Luisa Discharge Disposition: Home or Self [...] Notes * Marina Thakkar RN - 10/22/2023 4159 EDT Belt applied, blue light on audiometric technician confirmed, patient swallowed capsule without difficulty. Discharge Instructions reviewed, NO MRI card given. documented in this encounter Plan of Treatment Upcoming Encounters Date Type Department Care Team (Late st Contact Info) Description 01/26/2024 8:30 EST Appointment [facility] CT Scan [address] [place] [address] documented as of this encounter Procedures Procedure Name Priority Date/Time Associated Diagnosis Comments CAPSULE ENDOSCOPY Routine 10/22/2023 8:00 EDT Melena documented in this encounter Results * CAPSULE ENDOSCOPY (10/22/2023 8:00 EDT) Anatomical Region Laterality Modality Endoscopy Narrative 10/22/2023 8:00 EDT [facility] ?? [address], [place], [place] [address] ?? Patient Name ?VIKRAMCAIN TSANGHOP Date of ?1955 Record Number ?[id number] Date/Time of Procedure ?10/22/2023, 08:00:00 AM Endoscopist ?Mahi Hernandez MD ?? Operator And Truck Driver ? Referring Physician(s) ?? MAHI HERNANDEZ Anesthesiologist ? Procedure Performed: CAPSULE ENDOSCOPY Indications [...] 10/21 documented in this encounter Care Teams Tractor Trailer Moving Van Driver Relationship Specialty Start Date End Date Elizabeth Dsouza MD [address] [place] [phone] PCP - General 02/13/12 documented as of this encounter
--- OUTSIDE RECORDS SUMMARY | 2023-12-22 15:07 | XMS_ITS | Encounter Summary ---
Author Organization [facility] Address [address] [place] [address] Care Team Providers Care Youth Development Specialist Name Role Phone Elizabeth Dsouza MD Primary Care Provider [phone] Reason for Referral * Referral (Routine/Next Available) - Authorization Not Required Specialty Diagnoses / Procedures [facility] Referred To Contact Diagnoses Dysphagia, unspecified type Procedures UPPER ENDOSCOPY (EGD) Elizabeth Dsouza MD [address] [place] [phone] Referral ID Status Reason Start Date Expiration Date Visits Requested Visits Authorized [id number] Authorization Not Required 05/02/2023 1 1 Reason for Visit * Auth/Cert (Routine) Specialty Diagnoses / Procedures [facility] Referred To Contact Referral ID Status Reason Start Date Expiration Date Visits Re quested Visits Authorized [id number] 1 1 Encounter Details Date Type Department Care Team (Late st Contact Info) Description 10/01/2023 9:23 EDT - 10/01/2023 23:59 EDT Hospital Encounter [facility] Endoscopy [address] [place] [address] Angélica Hernandez MD [address] [phone] Dysphagia, unspecified type Discharge Disposition: [...] & Physical Date: 10/01/2023 Time: 12:25 Location: [facility] Endoscopy Planned Procedure: Upper Endoscopy Chief Complaint/Indications [...] 2 JÚNIOR COPD (chronic obstructive pulmonary disease) ([facility]) 07/23/22- well controlled w/ use of [...] Contact Info) Description 01/26/2024 8:30 EST Appointment [facility] CT Scan [address] [place] [address] documented as of this encounter Procedures Procedure Name Priority Date/Time Associated Diagnosis Comments ECG REPORT - SCANNED 10/03/2023 11:20 EDT SURGICAL PATHOLOGY Routine 10/01/2023 12 :41 EDT Dysphagia, unspecified type UPPER ENDOSCOPY (EGD) Routine 10/01/2023 10:30 EDT Dysphagia, unspecified type documented in this encounter Results * ECG REPORT - SCANNED (10/03/2023 11:20 EDT) 10/03/2023 11:2 0 EDT Scan 2 Flow Specialist PROCEDURE/MINOR PHILIPPE GICAL ORDERABLES * SURGICAL PATHOLOGY (10/01/2023 12:41 EDT) Note to Patient The following pathology results have been interpreted by your pathologist and may be available to you before your health provider has had the opportunity to review them. Please allow time for your provider to receive these results and explore management options, if applicable. 10/02/2023 14:48 EDT [facility] Final Diagnosis A. DISTAL ESOPHAGUS BIOPSY: - Squamous mucosa with mild chronic inactive esophagitis and reactive changes. - Negative for eosinophilia. B. PROXIMAL ESOPHAGUS BIOPSY: - Squamous mucosa with mild chronic inactive esophagitis and reactive changes. - Negative for eosinophilia. 10/02/2023 14:48 [facility] Attestation By the signature below, the attending physician certifies that they have 1) personally conducted a gross and/or microscopic examination of the described specimen(s), and/or personally interpreted the results of laboratory testing of the described specimen(s), and 2) personally rendered or confirmed the above diagnosis. 10/02/2023 14:48 [facility] at 1448 Clinical History Dysphagia, unspecified type 10/02/2023 14:48 [facility] Gross Description A. Received in formalin with, Vikram L Clifford and, esophagus Bx distal with [...] B1. CHENG LEIVA(ASCP) 10/01/2023 14:41 10/02/2023 14:48 [facility] Performing Lab [facility] 10/02/2023 14:48 [facility] Scanned Images 10/02/2023 14:48 [facility] Tissue ESOPHAGEAL STRUCTURE / Unknown 10/01/2023 12:41 EDT 10/01/2023 14:31 EDT Tissue specimen (specimen) ESOPHAGEAL STRUCTURE / Unknown 10/01/2023 12:41 EDT 10/01/2023 14:31 EDT Angélica Hernandez MD PATHOLOGY ORDERABLES [facility] [address] [place] [address] * UPPER ENDOSCOPY (EGD) (10/01/2023 10:30 EDT) Anatomical Region Laterality Modality Endoscopy Narrative 10/01/2023 10:30 [facility] ?? [address], [place], [place] [address] ?? Patient Name ?VIKRAM CLIFFORD Date of ?1955 Record Number ?[id number] Date/Time of Procedure ?10/01/2023, 10:30:00 AM Endoscopist ?Angélica Hernandez MD ?? Development Planner ? Referring Physician(s) ?? Elizabeth Dsouza M.D. Anesthesiologist ? Procedure Performed: Upper Endoscopy (EGD) Indications for Exam: dysphagia, melena Instruments: ? [id number] ([id number]) Medications: ?Fentanyl 100 mcg, Versed 5 mg, [...] End: 12:41:39 PM Signature: Angélica Hernandez MD, MGaurav. This note was electronically [...] 09/30 documented in this encounter Care Teams Youth Development Specialist Relationship Specialty Start Date End Date Elizabeth Dsouza MD [address] [place] [phone] PCP - General 02/13/12 documented as of this encounter
--- OUTSIDE RECORDS SUMMARY | 2023-12-22 15:07 | XMS_ITS | Referral Summary ---
Author Organization [facility] Address [address] [place] [address] Care Team Providers Care Upholstery Auto Trimmer Name Role Phone Elizabeth Dsouza MD Primary Care Provider Encounters Date Type Department Care Team Description 12/04/2023 20:26 EDT - 12/04/2023 21:36 EDT Emergency [facility] Emergency Department [address] [place] [address] Anika Martinez MD Anemia, unspecified type (Primary Dx) Discharge Disposition: Home or Self Care 10/22/2023 6:59 EDT - 10/22/2023 23:59 EDT Hospital Encounter [facility] Endoscopy [address] [place] [address] Mahi Hernandez MD Melena Discharge Disposition: Home or Self Care 10/01/2023 Orders Only [facility] Gastroenterology [address] [place] [address] Mahi Hernandez MD Melena (Primary Dx) 10/01/2023 9:23 EDT - 10/01/2023 23:59 EDT Hospital Encounter [facility] Endoscopy [address] [place] [address] Mahi Hernandez MD Dysphagia, unspecified type Discharge Disposition: Home or Self Care from Last 3 Months Allergies Active Allergy [...] Patient has given permission for [facility] to verbally discuss the following information with Raheel Jane, boyfriend, and Jim Clifford, son, who have [...] Overview: Added automatically from request for surgery [id number] Social History Tobacco Use Types Packs/Day Years [...] making decisions? No 08/05/2022 Plan of Treatment Upcoming Encounters Date Type Department Care Team (Late st Contact Info) Description 01/26/2024 8:30 EST Appointment [facility] CT Scan [address] [place] [address] Procedures Procedure Name Priority Date/Time Associated Diagnosis [...] (12/04/2023 20:49 EDT) ABO A 12/04/2023 21:31 [facility] BLOOD BANK Rh Factor Negative 12/04/2023 21:31 [facility] BLOOD [facility] Antibody Screen Negative 12/04/2023 21:31 [facility] BLOOD BANK Specimen Expires: 12/07/2023 @ 23:59 12/04/2023 21:31 [facility] BLOOD BANK Blood VENOUS BLOOD / Unknown Venipuncture / Unknown 12/04/2023 20:49 EDT 12/04/2023 20:51 EDT Anika Martinez MD BLOOD BANK TESTS Performing Organization Address City/[facility]/ZIP Co de Phone Number [facility] BLOOD BANK [address] [place] [address] * HOLD SST (12/04/2023 20:41 EDT) Hold Hold 12/04/2023 21:46 EDT LABORATORY SERVICES Blood VENOUS BLOOD / Unknown Venipuncture / Unknown 12/04/2023 20:41 EDT 12/04/2023 20:43 EDT Anika Martinez MD LAB INFO SERVICE A ND SUPPORT & PHONE RESULT Performing Organization Address City/[facility]/ZIP Co de Phone Number LABORATORY SERVICES [address] [place] [address] * HOLD LAVENDER TOP (12/04/2023 20:41 EDT) Hold Hold 12/04/2023 21:46 EDT LABORATORY SERVICES Blood VENOUS BLOOD / Unknown Venipuncture / Unknown 12/04/2023 20:41 EDT 12/04/2023 20:43 EDT Anika Martinez MD LAB INFO SERVICE A ND SUPPORT & PHONE RESULT Performing Organization Address City/[facility]/ZIP Co de Phone Number LABORATORY SERVICES [address] [place] [address] * HOLD GREEN TOP (12/04/2023 20:41 EDT) Hold Hold 12/04/2023 21:46 EDT LABORATORY SERVICES Blood VENOUS BLOOD / Unknown Venipuncture / Unknown 12/04/2023 20:41 EDT 12/04/2023 20:43 EDT Anika Martinez MD LAB INFO SERVICE A ND SUPPORT & PHONE RESULT Performing Organization Address City/[facility]/ZIP Co de Phone Number LABORATORY SERVICES [address] [place] [phone] * HOLD BLUE TOP (12/04/2023 20:41 EDT) Hold Hold 12/04/2023 21:46 EDT LABORATORY SERVICES Blood VENOUS BLOOD / Unknown Venipuncture / Unknown 12/04/2023 20:41 EDT 12/04/2023 20:43 EDT Anika Martinez MD LAB INFO SERVICE A ND SUPPORT & PHONE RESULT Performing Organization Address [facility] Co de Phone Number LABORATORY SERVICES [address] [place] [address] * (ABNORMAL) PROTIME (12/04/2023 20:41 EDT) [facility] I.N.R. 1.2(H) 0.9 - 1.1 Ratio 12/04/2023 20:55 EDT LABORATORY SERVICES Pro Time 14.0(H) 9.7 - 12.8 secs 12/04/2023 20:55 EDT LABORATORY SERVICES Blood VENOUS BLOOD / Unknown Venipuncture / Unknown 12/04/2023 20:41 EDT 12/04/2023 20:43 EDT Narrative LABORATORY SERVICES - 12/04/2023 20:55 EDT Moderate Intensity Coumadin INR = 2.0-3.0 Adjustments in anticoagulant therapy dose should be based on the INR and NOT on the Protime. Anika Martinez MD HEMATOLOGY & PF4 O RDERABLES Performing Organization Address City/[facility]/ZIP Co de Phone Number LABORATORY SERVICES [address] [place] [address] * (ABNORMAL) COMPLETE BLOOD COUNT AND DIFFERENTIAL [...] MD PACKAGES & DNA PRO BE ORDERABLES LABORATORY SERVICES [address] [place] [address] * BLOOD BANK HOLD (12/04/2023 20:41 EDT) Hold BB Spec will exp at 23:59, 3 days from collect date 12/04/2023 20:44 [facility] BLOOD BANK Blood VENOUS BLOOD / Unknown Venipuncture / Unknown 12/04/2023 20:41 EDT 12/04/2023 20:43 EDT Anika Martinez MD BLOOD BANK TESTS Performing Organization Address City/[facility]/ZIP Co de Phone Number [facility] BLOOD BANK [address] [place] [address] * IRON (12/04/2023 20:41 EDT) Pathologist [facility] Emergency Department Iron 53 37 - 170 ??g/dL 12/04/2023 21:17 [facility] LABORATORY SERVICES Blood VENOUS BLOOD / Unknown Venipuncture / Unknown 12/04/2023 20:41 EDT 12/04/2023 20:43 EDT Anika Martinez MD CHEMISTRY & BLOOD GAS ORDERABLES Performing Organization Address City/[facility]/ZIP Co de Phone Number LABORATORY SERVICES [address] [place] [address] * (ABNORMAL) COMPREHENSIVE METABOLIC PANEL (CMP) (12/04/2023 20:41 EDT) [facility] Sodium 139 136 - 145 mmol/L 12/04/2023 [...] & BLOOD GAS ORDERABLES Performing Organization Address [facility]/State/[facility] Co de Phone Number LABORATORY SERVICES [address] [place] [address] * CAPSULE ENDOSCOPY (10/22/2023 8:00 EDT) Anatomical Region Laterality Modality Endoscopy Narrative 10/22/2023 8:00 [facility] ?? [address] [place] [address] ?? Patient Name ?MELODIE CLIFFORD Date of ?1955 Record Number ?[id number] Date/Time of Procedure ?10/22/2023, 08:00:00 AM Endoscopist ?Mahi Hernandez MD ?? Fuel System Maintenance Supervisor ? Referring Physician(s) ?? MAHI HERNANDEZ Anesthesiologist [...] EDT) 10/03/2023 11:2 0 EDT Scan 2 Parking Lot Manager PROCEDURE/MINOR PHILIPPE GICAL ORDERABLES * SURGICAL PATHOLOGY (10/01/2023 12:41 EDT) Note to Patient The following pathology results have been interpreted by your pathologist and may be available to you before your health provider has had the opportunity to review them. Please allow time for your provider to receive these results and explore management options, if applicable. 10/02/2023 14:48 [facility] LABORATORY SERVICES Final Diagnosis A. DISTAL ESOPHAGUS BIOPSY: - Squamous mucosa with mild chronic inactive esophagitis and reactive changes. - Negative for eosinophilia. B. PROXIMAL ESOPHAGUS BIOPSY: - Squamous mucosa with mild chronic inactive esophagitis and reactive changes. - Negative for eosinophilia. 10/02/2023 14:48 [facility] LABORATORY SERVICES Attestation By the signature below, the attending physician certifies that they have 1) personally conducted a gross and/or microscopic examination of the described specimen(s), and/or personally interpreted the results of laboratory testing of the described specimen(s), and 2) personally rendered or confirmed the above diagnosis. 10/02/2023 14:48 [facility] LABORATORY SERVICES at 1448 Clinical History Dysphagia, unspecified type 10/02/2023 14:48 [facility] LABOR[facility]ORY [facility] Gross Description A. Received [...] pale franco tissue. In toto, B1. [facility] 10/01/2023 14:41 10/02/2023 14:48 [facility] LABOR[facility]ORY SERVICES Performing Lab [facility] 10/02/2023 14:48 [facility]OR[facility] Scanned Images 10/02/2023 14:48 EDT LABORATORY SERVICES Tissue ESOPHAGEAL STRUCTURE / Unknown 10/01/2023 12:41 EDT 10/01/2023 14:31 EDT Tissue specimen (specimen) ESOPHAGEAL STRUCTURE / Unknown 10/01/2023 12:41 EDT 10/01/2023 14:31 EDT Mahi Hernandez MD PATHOLOGY ORDERABLES Performing Organization Address City/State/[facility] Co de Phone Number LABORATORY SERVICES [address] [place] [address] * UPPER ENDOSCOPY (EGD) (10/01/2023 10:30 EDT) Anatomical Region Laterality Modality Endoscopy Narrative 10/01/2023 10:30 EDT ?? [address] [place] [address] ?? Patient Name ?MELODIE CLIFFORD Date of ?1955 Record Number ?[id number] Date/Time of Procedure ?10/01/2023, 10:30:00 AM Endoscopist ?Mahi Hernandez MD ?? Fuel System Maintenance Supervisor ? Referring Physician(s) ?? Elizabeth Dsouza M.D. Anesthesiologist ? Procedure Performed: Upper Endoscopy (EGD) Indications for Exam: dysphagia, melena Instruments: ? [id number] ([id number]) Medications: ?Fentanyl 100 mcg, Versed 5 mg, [...] End: 12:41:39 PM Signature: Mahi Hernandez MD, M.D. This note [...] REGARDING THIS REPORT PLEASE CALL [facility] AT [phone] Narrative 07/23/2023 18:50 EDT PROCEDURE INFORMATION: Exam: [...] CONCERNS REGARDING THIS REPORT PLEASE CALL [facility] [phone] Kaiser Miller MD IMG CT ORDERABLES from Last 3 Months or Most Recently Relevant to Health Maintenance Advance Directives For more information, please contact: [phone] Documents on File Type Date Recorded Patient First Assistant Expl anation Advance Directive 08/13/2022 in advance directive Care Teams Upholstery Auto Trimmer Relationship Specialty Start Date End Date Elizabeth Dsouza MD [address] [place] [phone] PCP - General 02/13/12
--- OUTSIDE RECORDS SUMMARY | 2023-12-22 15:07 | XMS_ITS | Encounter Summary ---
Author Organization [facility] Address [address] [place] [address] Care Team Providers Care Production Tester Name Role Phone Elizabeth Dsouza MD Primary Care Provider [phone] Reason for Referral * Referral (Routine/Next Available) - Authorization Not Required Specialty Diagnoses / Procedures [facility] Referred To Contact Diagnoses Melena Procedures CAPSULE ENDOSCOPY Mahi Hernandez MD [address] [place] [phone] [facility] [address] [place] [address] Referral ID Status Reason Start Date Expiration Date Visits Requested Visits Authorized [id number] Authorization Not Required 10/01/2023 1 1 Encounter Details Date Type Department Care Team (Late st Contact Info) Description 10/01/2023 Orders Only [facility] Gastroenterology [address] [place] [id number] Mahi Hernandez MD [address] [place] [phone] Melena (Primary Dx) Social History Tobacco [...] Contact Info) Description 01/26/2024 8:30 EST Appointment [facility] CT Scan [address] [place] [address] documented as of this encounter Results * CAPSULE ENDOSCOPY (10/22/2023 8:00 EDT) Anatomical Region Laterality Modality Endoscopy Narrative 10/22/2023 8:00 EDT [facility] ?? [address] [place] [address] ?? Patient Name ?VIKRAM CLIFFORD Date of ?1955 Record Number ?[id number] Date/Time of Procedure ?10/22/2023, 08:00:00 AM Endoscopist ?Mahi Hernandez MD ?? Floor Coverer Apprentice ? Referring Physician(s) ?? MAHI HERNANDEZ , [...] stool documented in this encounter Care Teams Production Tester Relationship Specialty Start Date End Date Elizabeth Dsouza MD [address] [place] [phone] PCP - General 02/13/12 documented as of this encounter
--- OUTSIDE RECORDS SUMMARY | 2023-12-22 15:07 | XMS_ITS | Encounter Summary ---
Author Organization [facility] Address [address] [place] [address] Care Team Providers Care Asphalt Layer Name Role Phone Elizabeth Dsouza MD Primary Care Provider [phone] Reason for Referral * Radiology Services (Routine/Next Available) - Authorization Not Required Specialty Diagnoses / Procedures Referred By Loli rose Referred To Contact Diagnoses Squamous cell carcinoma of lung, right (HCC-CMS) Procedures CT CHEST WO CONTRAST Kaiser Miller MD [address] [phone] [facility] Referral ID Status Reason Start Date Expiration Date Visits Requested Visits Authorized [id number] Authorization Not Required 06/16/2023 1 1 Reason for Visit * Radiology Services (Routine/Next Available) - Authorization Not Required Specialty Diagnoses / Procedures Referred By Loli rose Referred To Contact Diagnoses Squamous cell carcinoma of lung, right (HCC-CMS) Procedures CT CHEST WO CONTRAST Kaiser Miller MD [address] [place] [phone] [facility] Referral ID Status Reason Start Date Expiration Date Visits Requested Visits Authorized [id number] Authorization Not Required 06/16/2023 1 1 Encounter Details Date Type Department Care Team (Latest Contact Info) Description 07/23/2023 16:46 EDT - 07/23/2023 23:59 EDT Hospital Encounter [facility] CT Scan [address] [place] [address] Squamous cell carcinoma of lung, right (HCC-CMS) [...] Contact Info) Description 01/26/2024 8:30 EST Appointment [facility] CT Scan [address] [place] [address] documented as of this encounter Procedures Procedure [...] REGARDING THIS REPORT PLEASE CALL [facility] AT [phone] Narrative 07/23/2023 18:50 EDT PROCEDURE INFORMATION: Exam: [...] DOCUMENT HAS BEEN ELECTRONICALLY SIGNED BY LARRY MOERNO MD FOR ANY QUESTIONS OR CONCERNS REGARDING THIS REPORT PLEASE CALL [facility] [phone] Kaiser Miller MD IMG CT ORDERABLES documented in this encounter Visit Diagnoses Diagnosis Squamous cell carcinoma of lung, right (HCC-CMS) documented in this encounter Care Teams Asphalt Layer Relationship Specialty Start Date End Date Elizabeth Dsouza MD [address] [place] [phone] PCP - General 02/13/12 documented as of this encounter
--- OUTSIDE RECORDS SUMMARY | 2023-12-22 15:07 | XMS_ITS | Encounter Summary ---
Author Organization [facility] Address [address] [place] [address] Care Team Providers Care Medical Claims Analyst Name Role Phone Elizabeth Dsouza MD Primary Care Provider [phone] Reason for Visit * Reason Comments Cancer Encounter Details Date Type Department Care Team (Late st Contact Info) Description 07/25/2023 9:00 EDT Office Visit [facility] [address] [place] [address] Marci Ricks MD 111 [facility] 2 [place] [address] History of lung cancer (Primary [...] is recommended. 3. No disease progression identified. [id number] I spent a total of 30 minutes on the date of this encounter meeting with the patient and reviewing documentation/coordinating care as described in the above note. No procedures were performed at the time of the visit. Marci Ricks MD documented in this encounter Plan of Treatment Upcoming Encounters Date Type Department Care Team (Late st Contact Info) Description 01/26/2024 8:30 EST Appointment [facility] CT Scan [address] [place], [place] [address] documented as of this encounter Visit Diagnoses Diagnosis History of lung cancer- Primary Personal history of malignant neoplasm of bronchus and lung documented in this encounter Care Teams Medical Claims Analyst Relationship Specialty Start Date End Date Elizabeth Dsouza MD [address] [place] [phone] PCP - General 02/13/12 documented as of this encounter
--- OUTSIDE RECORDS SUMMARY | 2023-12-22 15:07 | XMS_ITS | Encounter Summary ---
Author Organization [facility] Address [address] [place] [address] Care Team Providers Care Director Of Cath Lab Name Role Phone Elizabeth Dsouza MD Primary Care Provider [phone] Reason for Referral * Radiology Services (Routine/Next Available) - Authorization Not Required Specialty Diagnoses / Procedures [facility] Referred To Contact Diagnoses Malignant neoplasm of right lung, unspecified part of lung (HCC-CMS) Procedures CT CHEST WO CONTRAST Kaiser Miller MD 111 [facility] 2 [place] [address] [facility] Referral ID Status Reason Start Date Expiration Date Visits Requested Visits Authorized [id number] Authorization Not Required 07/25/2023 1 1 Reason for Visit * Reason Comments Lung Cancer Encounter Details Date Type Department Care Team (Late st Contact Info) Description 07/25/2023 8:45 EDT Nurse Only [facility] Cancer Treatment [employer] [address] [place], [place] [address] Malignant neoplasm of right lung, unspecified part [...] Contact Info) Description 01/26/2024 8:30 EST Appointment [facility] CT Scan [address] [place] [address] Scheduled Orders Name Type Priority Associated Diagnoses Orde r Schedule CT CHEST WO CONTRAST Imaging Routine Malignant neoplasm of right lung, unspecified part of lung (HCC-CMS) Expected: 01/25/2024 (Approximate), Expires: 01/24/2025 documented as of this encounter Visit Diagnoses Diagnosis Malignant neoplasm of right lung, unspecified part of lung (HCC-CMS)- Primary documented in this encounter Care Teams Director Of Cath Lab Relationship Specialty Start Date End Date Elizabeth Dsouza MD [address] [place] [phone] PCP - General 02/13/12 documented as of this encounter
--- OUTSIDE RECORDS SUMMARY | 2023-12-22 15:07 | XMS_ITS ---
Author Organization [facility] Address [address] [place] [address] Care Team Providers Care Septic Tank Servicer Name Role Phone Elizabeth Dsouza MD Primary Care Provider [phone] Active Problems Patient Care Coordination No te Formatting of this note migh t be different from the original. Patient has given permission for [facility] to verbally discuss the following information [...] Date Squamous cell carcinoma of lung, right ([facility]) 08/13/2022 Cancer Staging:Clinical stage from 08/13/2022:Stage IA2(cT1b, cN0, cM0) - Signed by Acosta Alan MD on 08/13/2022 Lung nodule 07/19/2022 Overview: Added automatically from request for surgery [id number] Current Oncology Plans No current plan information [...]
--- OUTSIDE RECORDS SUMMARY | 2023-12-22 15:08 | XMS_ITS | Encounter Summary ---
Author Organization [facility] Address [address] [place] [address] Care Team Providers Care Legal Stenographer Name Role Phone Elizabeth Dsouza MD Primary Care Provider [phone] Encounter Details Date Type Department Care Team (Late st Contact Info) Description 09/09/2022 10:15 EDT - 09/09/2022 23:59 EDT Hospital Encounter [facility] Cancer Treatment [place] [address] [place] [address] Acosta Alan MD 111 [facility] 2 [place] [address] Discharge Disposition: Home or Self Care Social History Tobacco Use Types Packs/Day Years Used Date Smoking Tobacco: Every Day Cigarettes 2 54.8 Started: 1970 Passive Smoke Exposure: Never [...] Melodie Hodge Date of : 1955 MR#: [id number] MD: Too Alan MD Diagnosis: Cancer Staging Squamous cell carcinoma of lung, right ([facility]) Staging form: Lung, AJCC 8th Edition - [...] chest. Signed By: Acosta Alan MD Radiation Oncology-[facility] (p) [phone] / (f) [phone] documented in this encounter Plan of Treatment Upcoming Encounters Date Type Department Care Team (Late st Contact Info) Description 01/26/2024 8:[address] [facility] CT Scan [address] [place] [address] documented as of this encounter Visit Diagnoses Not on filedocumented in this encounter Care Teams Legal Stenographer Relationship Specialty Start Date End Date Elizabeth Dsouza MD [address] [place] [phone] PCP - General 02/13/12 documented as of this encounter
--- OUTSIDE RECORDS SUMMARY | 2023-12-22 15:08 | XMS_ITS | Encounter Summary ---
Author Organization [facility] Address [address] [place] [address] Care Team Providers Care Bridge Crew Member Name Role Phone Elizabeth Dsouza MD Primary Care Provider [phone] Encounter Details Date Type Department Care Team (Late st Contact Info) Description 09/04/2022 11:00 EDT - 09/04/2022 23:59 EDT Hospital Encounter [facility] Cancer Treatment [place] [address] [place] [address] Acosta Alan MD [address] [place] [address] [address] [place] [address] Discharge Disposition: Home or Self [...] Contact Info) Description 01/26/2024 8:30 EST Appointment [facility] CT Scan [address] [place] [address] documented as of this encounter Visit Diagnoses Not on filedocumented in this encounter Care Teams Bridge Crew Member Relationship Specialty Start Date End Date Elizabeth Dsouza MD [address] [place] [phone] PCP - General 02/13/12 documented as of this encounter
--- OUTSIDE RECORDS SUMMARY | 2023-12-22 15:08 | XMS_ITS | Encounter Summary ---
Author Organization [facility] Address [address] [place] [address] Care Team Providers Care Appellate Court Clerk Name Role Phone Elizabeth Dsouza MD Primary Care Provider [phone] Encounter Details Date Type Department Care Team (Late st Contact Info) Description 09/06/2022 Documentation Visit [facility] [place] [address] [place] [address] Khris Watson MD 111 [facility] [address] [place] [address] Social History Tobacco Use Types [...] simulation using the same immobilization devices. A medical imaging tech was present to verify the patient's positional [...] target location were continuously monitored using the Vision RT system and direct visualization with video [...] Contact Info) Description 01/26/2024 8:30 EST Appointment [facility] CT Scan [address] [place], [place] [address] documented as of this encounter Visit Diagnoses Not on filedocumented in this encounter Care Teams Appellate Court Clerk Relationship Specialty Start Date End Date Elizabeth Dsouza MD [address] [place] [phone] PCP - General 02/13/12 documented as of this encounter
--- OUTSIDE RECORDS SUMMARY | 2023-12-22 15:08 | XMS_ITS | Encounter Summary ---
Author Organization [facility] Address [address] [place] [address] Care Team Providers Care Group Contract Analyst Name Role Phone Elizabeth Dsouza MD Primary Care Provider Reason for Visit * Reason Onset Date Comments Appointment Related 07/29/2022 Encounter Details Date Type Department Care Team (Late st Contact Info) Description 07/29/2022 Telephone [facility] Pulmonology & Critical Care - [address] [phone] Amilcar Damian MD MPH [address] [place] [address], [address] [place] [address] Appointment Related Social History Tobacco [...] - You will NEED TO BRING A FISHING GUIDE. Please make sure you have someone accompany [...] Coumadin, Warfarin, etc.) please speak with your pellet post inspector about this. Your appointment is on 07.30.2022 with a scheduled start time of 7:30AM and an arrival time of 5:30AM. Please check in at Registration on the 3rd floor of the [facility] building. You will then proceed to Surgery and Procedures located on the 3rd floor in the [facility] of the [facility] building. Please call Pulmonary at [phone] or the PFT Lab at [phone] if you have any concerns, questions or need clarification about any of the above instructions. Thank you. documented in this encounter Plan of Treatment Upcoming Encounters Date Type Department Care Team (Late st Contact Info) Description 01/26/2024 8:30 EST Appointment [facility] CT Scan [address] [place] [address] documented as of this encounter Visit Diagnoses Not on filedocumented in this encounter Care Teams Group Contract Analyst Relationship Specialty Start Date End Date Elizabeth Dsouza MD [address] [place] [address] PCP - General 02/13/12 documented as of this encounter
--- OUTSIDE RECORDS SUMMARY | 2023-12-22 15:08 | XMS_ITS | Encounter Summary ---
Author Organization [facility] Address [address] [place] [address] Care Team Providers Care Guest Services Manager Name Role Phone Elizabeth Dsouza MD Primary Care Provider [phone] Reason for Visit * Reason Onset Date Comments Biopsy Results 07/31/2022 Encounter Details Date Type Department Care Team (Late st Contact Info) Description 07/31/2022 Telephone [facility] Pulmonology & Critical Care - [address] [phone] Elizabeth Asencio, GUEST SERVICES LEAD [address] [place] [address], [address] [place] [address] Biopsy Results Social History Tobacco [...] Will plan to present her case at [facility] on 08/05 and have her meet with [...] Contact Info) Description 01/26/2024 8:30 EST Appointment [facility] CT Scan [address] [place], [place] [address] documented as of this encounter Visit Diagnoses Not on filedocumented in this encounter Care Teams Guest Services Manager Relationship Specialty Start Date End Date Elizabeth Dsouza MD [address] [place] [address] PCP - General 02/13/12 documented as of this encounter
--- OUTSIDE RECORDS SUMMARY | 2023-12-22 15:08 | XMS_ITS | Encounter Summary ---
Author Organization [facility] Address [address] [place] [address] Care Team Providers Care Flatwork Catcher Name Role Phone Elizabeth Dsouza MD Primary Care Provider [phone] Reason for Referral * Radiology Services (Routine/Next Available) - Receiving Office to Obtain Authorization Specialty Diagnoses / Procedures Referred By Loli rose Referred To Contact Diagnoses Lung mass Procedures CT SECONDARY READ CHEST Elizabeth Asencio, WINDOWS DESKTOP SUPPORT 111 [facility], [facility] [address] [place] [address] [facility] Referral ID Status Reason Start Date Expiration Date Visits Requested Visits Authorized [id number] Receiving Office to Obtain Authorization 07/26/2022 1 1 Encounter Details Date Type Department Care Team (Late st Contact Info) Description 07/26/2022 Orders Only [facility] Hematology & Oncology - [address] [phone] Doroteo Ibrahim, ABEL Lung mass (Primary Dx) [...] Contact Info) Description 01/26/2024 8:30 EST Appointment [facility] CT Scan [address] [place] [address] documented as of this encounter Results * [...] specific discrete suspicious osseous lesion. Elizabeth Asencio WINDOWS DESKTOP SUPPORT IMG CT ORDERABLES documented in this encounter Visit Diagnoses Diagnosis Lung mass- Primary Swelling, mass, or lump in chest Lung mass Swelling, mass, or lump in chest documented in this encounter Care Teams Flatwork Catcher Relationship Specialty Start Date End Date Elizabeth Dsouza MD [address] [place] [phone] PCP - General 02/13/12 documented as of this encounter
--- OUTSIDE RECORDS SUMMARY | 2023-12-22 15:08 | XMS_ITS | Encounter Summary ---
Author Organization [facility] Address [address] [place] [address] Care Team Providers Care Snap Shearer Name Role Phone Elizabeth Dsouza MD Primary Care Provider [phone] Reason for Visit * Reason Comments Lung Cancer Encounter Details Date Type Department Care Team (Late st Contact Info) Description 11/29/2022 11:00 EDT Office Visit [facility] Cancer Treatment [address] [address] History of lung cancer (Primary Dx) Social [...] Progress Notes * Marci Ricks MD - 11/29/2022 1100 EDT Division of Radiation Oncology FOLLOW-UP NOTE Date of Service: 11/29/2022 Diagnosis: Cancer Staging Squamous cell carcinoma of lung, right ([facility]) Staging form: Lung, AJCC 8th Edition - [...] success when they work with a quit head men's tennis coach or smoking cessation counselor and if [...] is recommended. 3. No disease progression identified. [id number] I spent a total of 30 minutes [...] Info) Description 01/26/2024 8:30 EST Appointment [facility] CT Scan [address] [place] [address] documented as of this encounter Visit Diagnoses Diagnosis History of lung cancer- Primary Personal history of malignant neoplasm of bronchus and lung documented in this encounter Care Teams Snap Shearer Relationship Specialty Start Date End Date Elizabeth Dsouza MD [address] [place] [phone] PCP - General 02/13/12 documented as of this encounter
--- OUTSIDE RECORDS SUMMARY | 2023-12-22 15:08 | XMS_ITS | Encounter Summary ---
Author Organization [facility] Address [address] [place] [address] Care Team Providers Care Steam Setter Name Role Phone Elizabeth Dsouza MD Primary Care Provider [phone] Encounter Details Date Type Department Care Team (Late st Contact Info) Description 12/10/2022 Orders Only [facility] Cancer Treatment [place] [address] [place] [address] Acosta Alan MD 111 [facility], [facility] 2 [place] [address] Squamous cell carcinoma of lung, [...] Contact Info) Description 01/26/2024 8:30 EST Appointment [facility] CT Scan [address] [place] [address] documented as of this encounter Visit Diagnoses Diagnosis Squamous cell carcinoma of lung, right (HCC-CMS)- Primary documented in this encounter Care Teams Steam Setter Relationship Specialty Start Date End Date Elizabeth Dsouza MD [address] [place] [phone] PCP - General 02/13/12 documented as of this encounter
--- OUTSIDE RECORDS SUMMARY | 2023-12-22 15:08 | XMS_ITS | Encounter Summary ---
Author Organization [facility] Address [address] [place] [address] Care Team Providers Care C.O.D. Clerk Name Role Phone Elizabeth Dsouza MD Primary Care Provider [phone] Reason for Visit * Reason Onset Date Comments Appointment Related 08/01/2022 Encounter Details Date Type Department Care Team (Late st Contact Info) Description 08/01/2022 Telephone [facility] Multidisciplinary Lung Clinic - [address] [phone] Belkis Holm MD [address] [place] [address], [address] [place] [address] Appointment Related Social History Tobacco [...] This is up on the 5th floor [place] in the Medicine out patient clinic. documented in this encounter Plan of Treatment Upcoming Encounters Date Type Department Care Team (Late st Contact Info) Description 01/26/2024 8:30 EST Appointment [facility] CT Scan [address] [place] [address] documented as of this encounter Visit Diagnoses Not on filedocumented in this encounter Care Teams C.O.D. Clerk Relationship Specialty Start Date End Date Elizabeth Dsouza MD [address] [place] [phone] PCP - General 02/13/12 documented as of this encounter
--- OUTSIDE RECORDS SUMMARY | 2023-12-22 15:08 | XMS_ITS | Encounter Summary ---
Author Organization [facility] Address [address] [place] [address] Care Team Providers Care Load Dispatcher Local Name Role Phone Elizabeth Dsouza MD Primary Care Provider [phone] Encounter Details Date Type Department Care Team (Late st Contact Info) Description 07/30/2022 7:44 EDT Anesthesia Event [facility] [place] [address] [place], [place] [phone] Gaetano Amaral MD [address] [facility], Level 2 [place] [address] Anesthesia Record Procedure Summary Procedure [...] JÚNIOR ??? COPD (chronic obstructive pulmonary disease) ([facility]) 07/23/22- well controlled w/ use of inhalers [...] obtain a plan. Dorothy Herron APRN, MSN @9900 PAT Note by Emiliano Ortiz RN at [...] Contact Info) Description 01/26/2024 8:30 EST Appointment [facility] CT Scan [address] [place] [address] documented as of this encounter Procedures Procedure Name Priority Date/Time Associated Diagnosis Comments ANESTHESIA INTUBATION Routine 07/30/2022 7:53 EDT documented in this encounter Results * UT AN ELECTIVE ENDOTRACHEAL AIRWAY (07/30/2022 7:53 EDT) Narrative [facility] POINT OF CARE - 07/30/2022 7:53 EDT [...] 1 Gaetano Amaral MD ANESTHESIA ORDERA BLES [facility] POINT OF CARE documented in this encounter [...] mg documented in this encounter Care Teams Load Dispatcher Local Relationship Specialty Start Date End Date Elizabeth Dsouza MD [address] [place] [address] PCP - General 02/13/12 documented as of this encounter
--- OUTSIDE RECORDS SUMMARY | 2023-12-22 15:08 | XMS_ITS | Encounter Summary ---
Author Organization [facility] Address [address] [place] [address] Care Team Providers Care Page Makeup System Operator Name Role Phone Elizabeth Dsouza MD Primary Care Provider [phone] Encounter Details Date Type Department Care Team (Late st Contact Info) Description 09/09/2022 Results Only [facility] Radiation Oncology - [address] [address] Unknown, Provider, Social History Tobacco Use Types [...] Contact Info) Description 01/26/2024 8:30 EST Appointment [facility] CT Scan [address] [place] [address] documented as of this encounter Procedures Procedure [...] on filedocumented in this encounter Care Teams Page Makeup System Operator Relationship Specialty Start Date End Date Elizabeth Dsouza MD [address] [place] [address] PCP - General 02/13/12 documented as of this encounter
--- OUTSIDE RECORDS SUMMARY | 2023-12-22 15:08 | XMS_ITS | Encounter Summary ---
Author Organization [facility] Address [address] [place] [address] Care Team Providers Care Director Of Marketing And Promotions Name Role Phone Elizabeth Dsouza MD Primary Care Provider [phone] Encounter Details Date Type Department Care Team (Late st Contact Info) Description 09/06/2022 11:00 EDT - 09/06/2022 23:59 EDT Hospital Encounter [facility] Cancer Treatment [place] [address] [place] [address] Acosta Alan MD [address] [place] [address] 2 [place] [address] Discharge Disposition: Home or Self [...] Contact Info) Description 01/26/2024 8:30 EST Appointment [facility] CT Scan [address] [place] [address] documented as of this encounter Visit Diagnoses Not on filedocumented in this encounter Care Teams Director Of Marketing And Promotions Relationship Specialty Start Date End Date Elizabeth Dsouza MD [address] [place] [phone] PCP - General 02/13/12 documented as of this encounter
--- OUTSIDE RECORDS SUMMARY | 2023-12-22 15:08 | XMS_ITS | Encounter Summary ---
Author Organization [facility] Address [address] [place] [address] Care Team Providers Care Financial Developer Name Role Phone Elizabeth Dsouza MD Primary Care Provider [phone] Encounter Details Date Type Department Care Team (Latest Contact Info) Description 08/28/2022 17:30 EDT - 08/28/2022 23:59 EDT Hospital Encounter [facility] Cancer Treatment [place] [address] [place] [address] Discharge Disposition: Home or Self Care Social [...] [facility] Scan [address] [place] [address] documented as of this encounter Visit Diagnoses Not on filedocumented in this encounter Care Teams Financial Developer Relationship Specialty Start Date End Date Elizabeth Dsouza MD [address] [place] [address] PCP - General 02/13/12 documented as of this encounter
--- OUTSIDE RECORDS SUMMARY | 2023-12-22 15:08 | XMS_ITS | Encounter Summary ---
Author Organization [facility] Address [address] [place] [address] Care Team Providers Care District Superintendent Name Role Phone Elizabeth Dsouza MD Primary Care Provider [phone] Encounter Details Date Type Department Care Team (Late st Contact Info) Description 08/13/2022 Documentation Visit [facility] Radiation Oncology - [address] [address] Divina Penny, RN Social History Tobacco Use [...] this encounter Progress Notes * Hemalatha, Divina, RN - 08/13/2022 1000 EDT Images from the [...] Contact Info) Description 01/26/2024 8:30 EST Appointment [facility] CT Scan [address] [place] [address] documented as of this encounter Visit Diagnoses Not on filedocumented in this encounter Care Teams District Superintendent Relationship Specialty Start Date End Date Elizabeth Dsouza MD [address] [place] [address] PCP - General 02/13/12 documented as of this encounter
--- OUTSIDE RECORDS SUMMARY | 2023-12-22 15:08 | XMS_ITS | Encounter Summary ---
Author Organization [facility] Address [address] [place] [address] Care Team Providers Care Bit Welder Name Role Phone Elizabeth Dsouza MD Primary Care Provider [phone] Encounter Details Date Type Department Care Team (Late st Contact Info) Description 05/01/2023 Lab Requisition [facility] Pathology & Laboratory Medicine - [facility] [address] [place] [address] Outr Resulting Lab, Provider Social History Tobacco [...] Contact Info) Description 01/26/2024 8:30 EST Appointment [facility] CT Scan [address] [place] [address] documented as of this encounter Procedures Procedure Name Priority Date/Time Associated Diagnosis Comments RO52 ANTIBODY, IGG Routine 04/30/2023 17 :30 EST SS-B (LA) ANTIBODY, IGG Routine 04/30/2023 17:30 EST ANTI NUCLEAR AB (JACQUELINE), IFA Routine 04/30/2023 17:30 EST documented in this encounter Results * SS-B (LA) ANTIBODY, IGG (04/30/2023 17:30 EST) SSB Antibody, IgG <3.3 <20.0 CU 024 13:18 EST [facility] Comment:Results were obtaine d with the [employer] Flash SS-B chemiluminescent immunoassay. Values obtained with different manufacturers' assay methods must not be used interchangeably. Blood VENOUS BLOOD / Unknown 04/30/2023 17:30 EST 05/01/2023 18:04 EST Provider Outr Resulting Lab IMMUNOLOGY A ND SEROLOGY ORDERABLES [facility] [address] [place] [address] * RO52 ANTIBODY, IGG (04/30/2023 17:30 EST) Ro52 Anitbody, IgG 4.2 <20.0 CU 2023 13:18 EST [facility] Comment:Results were obtaine d with the [employer] Flash Ro52 chemiluminescent immunoassay. Values obtained with different manufacturers' assay methods must not be used interchangeably. Blood VENOUS BLOOD / Unknown 04/30/2023 17:30 EST 05/01/2023 18:04 EST Provider Outr Resulting Lab IMMUNOLOGY A ND SEROLOGY ORDERABLES Performing Organization Address City/[facility] Co de Phone Number [facility] [address] [place] [address] * ANTI NUCLEAR AB (JACQUELINE), IFA (04/30/2023 17:30 EST) JACQUELINE Interpretation Negative Negative 2023 14:22 EST [facility] Comment:No titer performed, JACQUELINE Screen is negative. Blood VENOUS BLOOD / Unknown 04/30/2023 17:30 EST 05/01/2023 18:04 EST Narrative [facility] - 05/02/2023 14:22 EST Results were obtained with the [employer] NOVA Lite HEp-2 JACQUELINE Kit by indirect immunofluorescence. Provider Outr Resulting Lab IMMUNOLOGY A ND SEROLOGY ORDERABLES Performing Organization Address [facility] Co de Phone Number [facility] [address] [place] [address] documented in this encounter Visit Diagnoses Not on filedocumented in this encounter Care Teams Bit Welder Relationship Specialty Start Date End Date Elizabeth Dsouza MD [address] [place] [phone] PCP - General 02/13/12 documented as of this encounter
--- OUTSIDE RECORDS SUMMARY | 2023-12-22 15:08 | XMS_ITS | Encounter Summary ---
Author Organization [facility] Address [address] [place] [address] Care Team Providers Care Train Caller Name Role Phone Elizabeth Dsouza MD Primary Care Provider [phone] Encounter Details Date Type Department Care Team (Late st Contact Info) Description 09/09/2022 Results Only [facility] Radiation Oncology - [address] [address] Unknown, Provider, Social History Tobacco Use Types [...] Contact Info) Description 01/26/2024 8:30 EST Appointment [facility] CT Scan [address] [place] [address] documented as of this encounter Procedures Procedure [...] 9:07 EDT Provider Unknown RADIATION ONCOLOGY O SHORTY ARIA RADIATION ONCOLOGY documented in this encounter Visit Diagnoses Not on filedocumented in this encounter Care Teams Train Caller Relationship Specialty Start Date End Date Elizabeth Dsouza MD [address] [place] [phone] PCP - General 02/13/12 documented as of this encounter
--- OUTSIDE RECORDS SUMMARY | 2023-12-22 15:08 | XMS_ITS | Encounter Summary ---
Author Organization [facility] Address [address] [place] [address] Care Team Providers Care Vending Machine Collector Name Role Phone Elizabeth Dsouza MD Primary Care Provider [phone] Reason for Referral * Test (Routine/Next Available) - Authorization Not Required Specialty Diagnoses / Procedures [facility] Referred To Contact Diagnoses Lung nodule Procedures PULMONARY FUNCTION TESTING Amilcar Damian MD MPH 111 [facility] [address] [place] [address] Referral ID Status Reason Start Date Expiration Date Visits Requested Visits Authorized [id number] Authorization Not Required 07/26/2022 1 1 Encounter Details Date Type Department Care Team (Late st Contact Info) Description 07/26/2022 Orders Only [facility] Pulmonology & Critical Care - [address] [phone] Audrey Mix RN Lung nodule (Primary Dx) [...] Contact Info) Description 01/26/2024 8:30 EST Appointment [facility] CT Scan [address] [place] [address] Scheduled Orders Name Type Priority Associated Diagnoses Orde r Schedule PULMONARY FUNCTION TESTING PFT Routine Lung nodule 1 Occurrences starting 07/26/2022 until 01/27/2024 documented as of this encounter Visit Diagnoses Diagnosis Lung nodule- Primary Solitary pulmonary nodule documented in this encounter Care Teams Vending Machine Collector Relationship Specialty Start Date End Date Elizabeth Dsouza MD [address] [place] [phone] PCP - General 02/13/12 documented as of this encounter
--- OUTSIDE RECORDS SUMMARY | 2023-12-22 15:08 | XMS_ITS | Encounter Summary ---
Author Organization Health system Address [address] [place] [address] Care Team Providers Care Window Glazier Name Role Phone Elizabeth Dsouza MD Primary Care Provider [phone] Encounter Details Date Type Department Care Team (Late st Contact Info) Description 07/30/2022 5:50 EDT - 07/30/2022 23:30 EDT Hospital Encounter [facility] OR [address] [place] [id number] Amilcar Damian MD MPH [address] [place] [address], [address] [place] [address] Discharge Disposition: Home or Self [...] By federal law, results are released to [facility] at the same time they are released to your provider. Please call if any one of the following problems develop: *Increasing shortness of breath *Coughing up more than a tablespoon of blood at a time *Significant chest pain or discomfort *Temperature over 100.6 degrees F that occurs the day after the procedure or later Call the pulmonary office at [phone] between 8:30am-4:30pm. After 4:30pm the hospital operatorat [phone] and ask to have the pulmonary physician abalone processor be paged. documented in this encounter Medications [...] Code Departure Means Destination Home or Self Mcfp documented in this encounter H&P Notes * [...] with Chantix. Using e-cigarettes. Lives alone in [place], [place]. Maintains home. Denies functional limitations; although notes exertion is limited by right-sided sciatic pain. Denies chest pain or pressure. No palpitations. No exertional dyspnea, although minimal ambulation attributed to lower extremity discomfort. Not regularly followed by cardiology; underwent PCI in 1995 for NSTEMI. No further cardiac events. 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 No occupational exposures to chemicals or fumes. Social History: Lives alone in [place], [place]. Multiple pets within the home; including cats, dogs, and parakeets. Denies issues with mold or mildew. Family History: No family history of lung cancer. 4 adult children are healthy. PMHx: HTN HLD CAD s/p PCI [1995] at [facility] Lower extremity pain PSHx: has [...] discussed with Dr. Damian. Juliocesar Limon MD [facility] Fellow Attestation statement: I performed [...] and EBUS-TBNA. SURGEON: Luis Damian MD MPH SOCIAL WORK ADMINISTRATOR: Elizabeth Asencio NP (Please note, no qualified fellow was available assist in the procedure, thus Ms Asencio's presence was required as instructional support assistant. She assisted in performing robotic navigational [...] Luis Damian MD, MPH / CD Confirmation: [id number] Dictation ID: [id number] cc: documented in this encounter Plan of Treatment Upcoming Encounters Date Type Department Care Team (Late st Contact Info) Description 01/26/2024 8:30 EST Appointment [facility] CT Scan [address] [place] [address] documented as of this encounter Procedures Procedure Name Priority Date/Time Associated Diagnosis Comments XR CHEST PORTABLE 1 VIEW Routine 07/30/2022 10:39 EDT FL C-ARM 0-1 HOUR Routine 07/30/2022 9:3 5 EDT XR CHEST 2 VIEWS Routine 07/30/2022 9:34 EDT NON ICE PLATFORM SUPERVISOR/FNA CYTOLOGY Routine 07/30/2022 8:44 EDT BRONCHOSCOPY, WITH TRANSBRONCHIAL NEEDLE ASPIRATION BIOPSY 07/30/2022 7:39 EDT Lung nodule Special Needs O-Arm; Rhodes Robot; Dive board bed. documented in this [...] IMG DIAGNO STIC IMAGING ORDERABLES * NON ICE PLATFORM SUPERVISOR/FNA CYTOLOGY (07/30/2022 8:44 EDT) Note to Patient The following pathology results have been interpreted by your pathologist and may be available to you before your health provider has had the opportunity to review them. Please allow time for your provider to receive these results and explore management options, if applicable. 07/31/2022 9:58 EDT [facility] Final Diagnosis A. LUNG, [...] cells present. - Lymphocytes present. 07/31/2022 9:58 [facility] Diagnosis Comment Malignant keratinized squamous cells are present in a background of keratin debris and necrosis. The tumor cells are present individually without sheets of cells being identified. The cell block shows a rare cluster of dysplastic squamous cells. The patient's previous cytology specimen ([id number]) and biopsy specimen ([id number]) have been reviewed. Communication Analyst slides of this case were reviewed at the intradepartmental consultation conference. 07/31/2022 9:58 [facility] Attestation By the signature below, the attending physician certifies that they have personally conducted a gross and/or microscopic examination of the described specimens and rendered or confirmed the above diagnosis. 07/31/2022 9:58 [facility] at 0958 Rapid Diagnosis [...] Kenneth Lawrence; 07/29/2022; 9:00 AM 07/31/2022 9:58 [facility] Clinical History Lung nodule 07/31/2022 9:58 [facility] Gross Description A. 12 fixed prepared slides, 1 air dried prepared slides, and 1 tube of RPMI for cell block processing were received. B. One vial of CytoLyt was received and processed by selective cellular enhancement technique. C. One vial of CytoLyt was received and processed by selective cellular enhancement technique. 07/31/2022 9:58 [facility] Performing Lab [facility] 07/31/2022 9:58 [facility] Scanned Images 07/31/2022 9:58 EDT [facility] Fine Needle Aspirate ENTIRE [...] EDT Amilcar Damian MD MPH PATHOLOGY ORDERABLES [facility] [address] [place] [address] documented in this encounter Visit Diagnoses Diagnosis [...] Gaetano Amaral MD - Comment: Switch to gravity)08 (Restarted - Provider: Gaetano Amaral MD)0931 (Anesthesia Volume Adjustment - Provider: aGetano Amaral MD) PRN Medication Order 07/28/2022 07/29/2022 [...] 07/30/2022 documented in this encounter Care Teams Window Glazier Relationship Specialty Start Date End Date Elizabeth Dsouza MD [address] [place] [address] PCP - General 02/13/12 documented as of this encounter
--- OUTSIDE RECORDS SUMMARY | 2023-12-22 15:08 | XMS_ITS | Encounter Summary ---
Author Organization [facility] Address [address] [place] [address] Care Team Providers Care Door Fitter Name Role Phone Elizabeth Dsouza MD Primary Care Provider [phone] Encounter Details Date Type Department Care Team (Late st Contact Info) Description 08/21/2022 Documentation Visit [facility] Cancer Treatment [place] [address] [place] [address] Lorraine Pan, ABEL Social History Tobacco Use [...] Lorraine Pan RN - 08/21/2022 1414 EDT [facility] Patient Education/Needs Assessment Date: 08/21/22 What [...] preferred method of learning? Patient's primary language: [place]ican Does the patient require an continuity coordinator? No Does the patient have any barriers [...] [x] MARIA E Radiation Therapy for LUNG [x][facility]-specific information Audio/Visual [] MARIA E RT Answers: [...] Contact Info) Description 01/26/2024 8:30 EST Appointment [facility] CT Scan [address] [place] [address] documented as of this encounter Visit Diagnoses Not on filedocumented in this encounter Care Teams Door Fitter Relationship Specialty Start Date End Date Elizabeth Dsouza MD [address] [place] [address] PCP - General 02/13/12 documented as of this encounter
--- OUTSIDE RECORDS SUMMARY | 2023-12-22 15:08 | XMS_ITS | Encounter Summary ---
Author Organization [facility] Address [address] [place] [address] Care Team Providers Care Cutter Operator Name Role Phone Elizabeth Dsouza MD Primary Care Provider Encounter Details Date Type Department Care Team (Latest Contact Info) Description 09/03/2022 17:00 EDT - 09/03/2022 23:59 EDT Hospital Encounter [facility] Cancer Treatment [place] [address] [place] [address] Discharge Disposition: Home or Self Care Social [...] Contact Info) Description 01/26/2024 8:30 EST Appointment [facility] CT Scan [address] [place] [address] documented as of this encounter Visit Diagnoses Not on filedocumented in this encounter Care Teams Cutter Operator Relationship Specialty Start Date End Date Elizabeth Dsouza MD [address] [place] [address] PCP - General 02/13/12 documented as of this encounter
--- OUTSIDE RECORDS SUMMARY | 2023-12-22 15:08 | XMS_ITS | Encounter Summary ---
Author Organization [facility] Address [address] [place] [address] Care Team Providers Care Music Autographer Name Role Phone Elizabeth Dsouza MD Primary Care Provider [phone] Encounter Details Date Type Department Care Team (Late st Contact Info) Description 09/12/2022 Documentation Visit [facility] Cancer Treatment [place] [address] [place] [address] Acosta Alan MD [address] [facility], [facility] [address] [place] [address] Social History Tobacco Use Types [...] Staging Squamous cell carcinoma of lung, right ([facility]) Staging form: Lung, AJCC 8th Edition [...] Holm evaluated her in thoracic surgery at [facility]. She noted that the patient had a [...] climbing a flight of stairs without stopping long-term up. On flat ground she does not [...] Contact Info) Description 01/26/2024 8:30 EST Appointment [facility] CT Scan [address] [place] [address] documented as of this encounter Visit Diagnoses Not on filedocumented in this encounter Care Teams Music Autographer Relationship Specialty Start Date End Date Elizabeth Dsouza MD [address] [place] [phone] PCP - General 02/13/12 documented as of this encounter
--- OUTSIDE RECORDS SUMMARY | 2023-12-22 15:08 | XMS_ITS | Encounter Summary ---
Author Organization [facility] Address [address] [place] [address] Care Team Providers Care Paper Inserter Name Role Phone Elizabeth Dsouza MD Primary Care Provider [phone] Encounter Details Date Type Department Care Team (Late st Contact Info) Description 07/26/2022 Telephone [facility] Pulmonology & Critical Care - [address] [phone] Amilcar Damian MD MPH [address] [facility], [address] [place] [address] Social History Tobacco Use Types [...] - You will NEED TO BRING A COMMISSIONS ANALYST. Please make sure you have someone accompany [...] Coumadin, Warfarin, etc.) please speak with your outside contractor sales about this. Your appointment date: 07/30/22 and time: 11:30 am arrival for a 1:30pm start. Please check in at Registration on the 3rd floor of the [facility] building. You will then proceed to Surgery and Procedures located on the 3rd floor in the [facility] of the [facility] building. Please call the PFT Lab at [phone] or the Pulmonary department at [phone] if you have any concerns, questions or need clarification about any of the above instructions. Thank you. documented in this encounter Plan of Treatment Upcoming Encounters Date Type Department Care Team (Late st Contact Info) Description 01/26/2024 8:30 EST Appointment [facility] CT Scan [address] [place] [address] documented as of this encounter Visit Diagnoses Not on filedocumented in this encounter Care Teams Paper Inserter Relationship Specialty Start Date End Date Elizabeth Dsouza MD [address] [place] [phone] PCP - General 02/13/12 documented as of this encounter
--- OUTSIDE RECORDS SUMMARY | 2023-12-22 15:08 | XMS_ITS | Encounter Summary ---
Author Organization [facility] Address [address] [place] [address] Care Team Providers Care Tester Armature Or Fields Name Role Phone Elizabeth Dsouza MD Primary Care Provider [phone] Reason for Referral * (Routine/Next Available) - New Request Specialty Diagnoses / Procedures [facility] Referred To Contact Diagnoses Malignant neoplasm of unspecified part of right bronchus or lung (HCC-CMS) Procedures CT SIM EXAM Acosta Alan MD [address] [place] [phone] [facility] Referral ID Status Reason Start Date Expiration Date V isits Requested Visits Authorized [id number] New Request 08/15/2022 1 1 Reason for Visit * (Routine/Next Available) - New Request Specialty Diagnoses / Procedures Referred By Loli rose Referred To Contact Diagnoses Malignant neoplasm of unspecified part of right bronchus or lung (HCC-CMS) Procedures CT SIM EXAM Acosta Alan MD [address] [place] [phone] [facility] Referral ID Status Reason Start Date Expiration Date V isits Requested Visits Authorized [id number] New Request 08/15/2022 1 1 Encounter Details Date Type Department Care Team (Latest Contact Info) Description 08/21/2022 13:00 EDT - 08/21/2022 23:59 EDT Hospital Encounter [facility] [address] [place] [address] Malignant neoplasm of unspecified part of right [...] Contact Info) Description 01/26/2024 8:30 EST Appointment [facility] CT Scan [address] [place] [address] documented as of this encounter Procedures Procedure [...] (HCC-CMS) documented in this encounter Care Teams Tester Armature Or Fields Relationship Specialty Start Date End Date Elizabeth Dsouza MD [address] [place] [phone] PCP - General 02/13/12 documented as of this encounter
--- OUTSIDE RECORDS SUMMARY | 2023-12-22 15:08 | XMS_ITS | Encounter Summary ---
Author Organization [facility] Address [address] [place] [address] Care Team Providers Care System Support Technician Name Role Phone Elizabeth Dsouza MD Primary Care Provider [phone] Reason for Visit * Reason Onset Date Comments Appointment Related 12/27/2022 Tobacco Cess ation - Rad Onc Encounter Details Date Type Department Care Team ([facility] st Contact Info) Description 12/27/2022 Telephone [facility] Cancer Treatment [place] [address] [place] [address] Diana Covington [address] [place] [address] Appointment Related (Tobacco Cessation - [...] encounter Miscellaneous Notes * Telephone Encounter - JaniceDiana arroyo - 12/27/2022 1024 EDT Called pt to f/u re missed appt for tobacco cessation consult in rad-onc (apt scheduled in aria). No ans, left vm requesting call back to r/s. documented in this encounter Plan of Treatment Upcoming Encounters Date Type Department Care Team (Late st Contact Info) Description 01/26/2024 8:30 EST Appointment [facility] CT Scan [address] [place] [address] documented as of this encounter Visit Diagnoses Not on filedocumented in this encounter Care Teams System Support Technician Relationship Specialty Start Date End Date Elizabeht Dsouza MD [address] [place] [address] PCP - General 02/13/12 documented as of this encounter
--- OUTSIDE RECORDS SUMMARY | 2023-12-22 15:08 | XMS_ITS | Encounter Summary ---
Author Organization [facility] Address [address] [place] [address] Care Team Providers Care Commercial Field Inspector Name Role Phone Elizabeth Dsouza MD Primary Care Provider [phone] Reason for Referral * Consult (Routine/Next Available) - Authorization Not Required Specialty Diagnoses / Procedures [facility] Referred To Contact Radiation Oncology Diagnoses Primary cancer of right upper lobe of lung (HCC-CMS) Belkis Holm MD [address] [place] [phone] Acsota Alan MD [address] [place] [phone] Referral ID Status Reason Start Date Expiration Date Visits Requested Visits Authorized [id number] Authorization Not Required Specialty Services Required 3 1 1 Question Answer Reason for Request: RUL early stage squamous cell carcinoma, eval for radiation treatment Reason for Visit * Reason Comments New Patient Visit Encounter Details Date Type Department Care Team (Late st Contact Info) Description 08/05/2022 15:00 EDT Office Visit [facility] Cardiothoracic Surgery - [address] [address] Belkis Holm MD [address] [facility], [address] [place] [address] Primary cancer of right upper [...] as of this encounter Progress Notes * Beklis Holm MD - 08/05/2022 1500 EDT [facility] Thoracic Surgery Services Clinic Visit Note [...] JÚNIOR ??? COPD (chronic obstructive pulmonary disease) ([facility]) 07/23/22- well controlled w/ use of [...] skull base to upper thighs using a [employer] digital PET/CT system. The blood glucose level [...] treatment. [facility] [place] Alan [place] [facility] [place]. - Encouraged smoking cessation Belkis Holm MD documented in this encounter Plan of Treatment Upcoming Encounters Date Type Department Care Team (Late st Contact Info) Description 01/26/2024 8:30 EST Appointment [facility] CT Scan [address] [place] [address] Scheduled Referrals Name Type Priority Associated Diagnoses Order Schedule AMB CONS/FOLLOW UP RADIATION ONCOLOGY Outpatient Referral Routine/Next Available Primary cancer of right upper lobe of lung (HCC-CMS) Expected: 08/12/2022 (Approximate), Expires: 08/06/2023 documented as of this encounter Visit Diagnoses Diagnosis Primary cancer of right upper lobe of lung (HCC-CMS)- Primary documented in this encounter Care Teams Commercial Field Inspector Relationship Specialty Start Date End Date Elizabeth Dsouza MD [address] [place] [phone] PCP - General 02/13/12 documented as of this encounter
--- OUTSIDE RECORDS SUMMARY | 2023-12-22 15:08 | XMS_ITS | Encounter Summary ---
Author Organization [facility] Address [address] [place] [address] Care Team Providers Care Web Design Instructor Name Role Phone Elizabeth Dsouza MD Primary Care Provider [phone] Reason for Visit * Reason Comments Lung Cancer * Consult (Routine/Next Available) - Authorization Not Required Specialty Diagnoses / Procedures Referred By Loli rose Referred To Contact Radiation Oncology Diagnoses Primary cancer of right upper lobe of lung (HCC-CMS) Belkis Holm MD [address] [place] [phone] Acosta Alan MD [address] [place] [phone] Referral ID Status Reason Start Date Expiration Date Visits Requested Visits Authorized [id number] Authorization Not Required Specialty Services Required 3 1 1 Encounter Details Date Type Department Care Team (Late st Contact Info) Description 08/13/2022 10:30 EDT Initial consult [facility] Cancer Treatment [address] [address] Acosta Alan MD [address] [place] [phone] Squamous cell carcinoma of lung, right [...] Cell Lung Cancer: Findings of an International [place] Consensus Study. Gissel TRAN et al, Practical Radiation Oncology, May-June/2017). 3. Smoking cessation was advised and we will attempt to coordinate smoking cessation counselor referral HISTORY OF PRESENT ILLNESS: Melodie Hodge, who goes by Yesy, is a 67 y.o. female from [facility] who is referred for consultation [...] Holm evaluated her in thoracic surgery at [facility]. She noted that the patient [...] climbing a flight of stairs without stopping snf up. On flat ground she does not [...] JÚNIOR ??? COPD (chronic obstructive pulmonary disease) ([facility]) 07/23/22- well controlled w/ use [...] of the visit. Acosta Alan MD Radiation Oncology[facility] (p) [phone] / (f) [phone] documented in this encounter Plan of Treatment Upcoming Encounters Date Type Department Care Team (Late st Contact Info) Description 01/26/2024 8:30 EST Appointment [facility] Scan [address] [place] [address] documented as of this encounter Visit Diagnoses Diagnosis Squamous cell carcinoma of lung, right (HCC-CMS)- Primary documented in this encounter Care Teams Web Design Instructor Relationship Specialty Start Date End Date Elizabeth Dsouza MD [address] [place] [phone] PCP - General 02/13/12 documented as of this encounter
--- OUTSIDE RECORDS SUMMARY | 2023-12-22 15:08 | XMS_ITS | Encounter Summary ---
Author Organization [facility] Address [address] [place] [address] Care Team Providers Care Theater Company Producer Name Role Phone Elizabeth Dsouza MD Primary Care Provider [phone] Encounter Details Date Type Department Care Team (Late st Contact Info) Description 12/10/2022 Documentation Visit [facility] Cancer Treatment [place] [address] [place] [address] Divina Penny, RN Social History Tobacco Use [...] Contact Info) Description 01/26/2024 8:30 EST Appointment [facility] CT Scan [address] [place] [address] documented as of this encounter Visit Diagnoses Not on filedocumented in this encounter Care Teams Theater Company Producer Relationship Specialty Start Date End Date Elizabeth Dsouza MD [address] [place] [phone] PCP - General 02/13/12 documented as of this encounter
--- OUTSIDE RECORDS SUMMARY | 2023-12-22 15:08 | XMS_ITS | Encounter Summary ---
Author Organization [facility] Address [address] [place] [address] Care Team Providers Care Edge Bonder Name Role Phone Elizabeth Dsouza MD Primary Care Provider [phone] Encounter Details Date Type Department Care Team (Late st Contact Info) Description 07/30/2022 7:25 EDT - 07/30/2022 10:20 EDT Surgery [facility] OR [address] [place], [place] [id number] Amilcar Damian MD MPH [address] [place] [address], [address] [place] [address] Robotic and navigational bronchoscopy with intraop CT for biopsies, possible washings, and endobronchial ultrasound-guided needle biopsies [[id number] (CPT??)] Surgery Details Date/Time Status Location OR Service Patient Class Case Cl ass Case Type Trauma Case? 07/30/22 0725 Posted [facility] 05 Pulmonary Hospita l Outpatient Surgery H - Elective Panel 1 Procedure LRB Anes Op Region Wound Class Comments Robotic and navigational bronchoscopy with intraop CT for biopsies, possible washings, and endobronchial ultrasound-guided needle biopsies N/A General Chest N/A O arm Cytopathology 120 minutes Surgeon Surgeon Role Service Panel Elizabeth Asencio, DIVER PUMPER Assisting Pulmonary 1 Amilcar Damian MD MPH Primary Pulmonary 1 Quintin Joseph, DO Fellow Pulmonary 1 Special Needs O-Arm; Dundee Robot; Dive board bed. documented in this [...] By federal law, results are released to [place] at the same time they are released to your provider. Please call if any one of the following problems develop: *Increasing shortness of breath *Coughing up more than a tablespoon of blood at a time *Significant chest pain or discomfort *Temperature over 100.6 degrees F that occurs the day after the procedure or later Call the pulmonary office at [phone] between 8:30am-4:30pm. After 4:30pm the hospital operatorat [phone] and ask to have the pulmonary physician precision agronomist be paged. documented in this encounter Medications [...] with Chantix. Using e-cigarettes. Lives alone in [place], [place]. Maintains home. Denies functional limitations; although notes exertion is limited by right-sided sciatic pain. Denies chest pain or pressure. No palpitations. No exertional dyspnea, although minimal ambulation attributed to lower extremity discomfort. Not regularly followed by cardiology; underwent PCI in 1995 for NSTEMI. No further cardiac events. 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 No occupational exposures to chemicals or fumes. Social History: Lives alone in [place], [place]. Multiple pets within the home; including cats, dogs, and parakeets. Denies issues with mold or mildew. Family History: No family history of lung cancer. 4 adult children are healthy. PMHx: HTN HLD CAD s/p PCI [1995] at [facility] Lower extremity pain PSHx: has a [...] with Dr. Damian. Juliocesar Limon MD [facility] Fellow Attestation statement: I performed [...] and EBUS-TBNA. SURGEON: Luis Damian MD MPH DISTRIBUTION FIELD ENGINEER: Elizabeth Asencio NP (Please note, no qualified fellow was available assist in the procedure, thus Ms Asencio's presence was required as construction administrative assistant. She assisted in performing robotic navigational [...] Luis Damian MD, MPH / CD Confirmation: [id number] Dictation ID: [id number] cc: documented in this encounter Plan of Treatment Upcoming Encounters Date Type Department Care Team (Late st Contact Info) Description 01/26/2024 8:30 EST Appointment [facility] CT Scan [address] [place] [address] documented as of this encounter Procedures Procedure Name Priority Date/Time Associated Diagnosis Comments XR CHEST PORTABLE 1 VIEW Routine 07/30/2022 10:39 EDT FL C-ARM 0-1 HOUR Routine 07/30/2022 9:3 5 EDT XR CHEST 2 VIEWS Routine 07/30/2022 9:34 EDT NON EYEGLASS LENS CUTTER/FNA CYTOLOGY Routine 07/30/2022 8:44 EDT BRONCHOSCOPY, WITH TRANSBRONCHIAL NEEDLE ASPIRATION BIOPSY 07/30/2022 7:39 EDT Lung nodule Special Needs O-Arm; Dundee Robot; Dive board bed. documented in this [...] IMG DIAGNO STIC IMAGING ORDERABLES * NON EYEGLASS LENS CUTTER/FNA CYTOLOGY (07/30/2022 8:44 EDT) Note to Patient The following pathology results have been interpreted by your pathologist and may be available to you before your health provider has had the opportunity to review them. Please allow time for your provider to receive these results and explore management options, if applicable. 07/31/2022 9:58 EDT [facility] Final Diagnosis A. LUNG, RIGHT [...] cells present. - Lymphocytes present. 07/31/2022 9:58 EDT [facility] Diagnosis Comment Malignant keratinized squamous cells are present in a background of keratin debris and necrosis. The tumor cells are present individually without sheets of cells being identified. The cell block shows a rare cluster of dysplastic squamous cells. The patient's previous cytology specimen ([id number]) and biopsy specimen ([id number]) have been reviewed. Cutlet Maker Pork slides of this case were reviewed at the intradepartmental consultation conference. 07/31/2022 9:58 [facility] Attestation By the signature below, the attending physician certifies that they have personally conducted a gross and/or microscopic examination of the described specimens and rendered or confirmed the above diagnosis. 07/31/2022 9:58 [facility] at 0958 Rapid Diagnosis A. [...] Kenneth Lawrence; 07/29/2022; 9:00 AM 07/31/2022 9:58 EDT [facility] Clinical History Lung nodule 07/31/2022 9:58 EDT [facility] Gross Description A. 12 fixed prepared slides, 1 air dried prepared slides, and 1 tube of RPMI for cell block processing were received. B. One vial of CytoLyt was received and processed by selective cellular enhancement technique. C. One vial of CytoLyt was received and processed by selective cellular enhancement technique. 07/31/2022 9:58 EDT [facility] Performing Lab [facility] 07/31/2022 9:58 EDT [facility] Scanned Images 07/31/2022 9:58 EDT [facility] Fine Needle Aspirate ENTIRE RIGHT [...] EDT Amilcar Damian MD MPH PATHOLOGY ORDERABLES [facility] [address] [place] [address] documented in this encounter Visit Diagnoses Diagnosis [...] 07/30/2022 documented in this encounter Care Teams Edge Bonder Relationship Specialty Start Date End Date Elizabeth Dsouza MD [address] [place] [address] PCP - General 02/13/12 documented as of this encounter
--- OUTSIDE RECORDS SUMMARY | 2023-12-22 15:08 | XMS_ITS | Encounter Summary ---
Author Organization [facility] Address [address] [place] [address] Care Team Providers Care Corporate Legal Manager Name Role Phone Elizabeth Dsouza MD Primary Care Provider [phone] Encounter Details Date Type Department Care Team (Late st Contact Info) Description 07/26/2022 13:45 EDT Phlebotomy Only [facility] Center 2 Phlebotomy [address] [place], [place] [id number] Driver License Agent, Acc Phlebotomy Lung nodule Social History Tobacco [...] Appointment [facility] CT Scan [address] [place], [place] [address] documented as of this encounter Procedures Procedure Name Priority Date/Time Associated Diagnosis Comments COMPLETE BLOOD COUNT AND DIFFERENTIAL Routine 07/26/2022 14:08 EDT Lung nodule COMPREHENSIVE METABOLIC PANEL (CMP) Routine 07/26/2022 14:08 EDT Lung nodule documented in this encounter Results * (ABNORMAL) COMPLETE BLOOD COUNT AND DIFFERENTIAL (07/26/2022 14:08 EDT) WBC 6.58 4.00 - 12.40 K/cmm 07/26/2022 14:58 [facility] RBC 4.87 3.86 - 5.04 M/cmm 07/26/2022 14:58 [facility] Hemoglobin 15.3(H) 11.6 - 15.2 gm/dL 07/26/2022 14:58 [facility] HCT 46.2(H) 34.9 - 44.4 % 07/26/2022 14:58 [facility] MCV 95 81 - 98 fl 07/26/2022 14:58 [facility] MCH 31.4 26.7 - 33.3 pg 07/26/2022 14:58 [facility] MCHC 33.1 32.1 - 35.9 gm/dL 07/26/2022 14:58 [facility] RDW-CV 12.9 <14.7 % 07/26/2022 14:58 [facility] RDW-SD 44.9 <50.4 fl 07/26/2022 14:58 [facility] PLT 195 141 - 377 K/cmm 07/26/2022 14:58 [facility] MPV 10.7 9.5 - 12.7 fl 07/26/2022 14:58 [facility] % Neutrophils 69.4 % 07/26/2022 14:58 [facility] % Lymphocytes 21.9 % 07/26/2022 14:58 [facility] % Monocytes 6.1 % 07/26/2022 14:58 [facility] % Eosinophils 1.8 % 07/26/2022 14:58 [facility] % Basophils 0.6 % 07/26/2022 14:58 T [facility] % Immature Grans 0.2 % 07/27/19 14:58 [facility] Absolute Neutrophils 4.57 2.20 - 8.85 K/cmm 07/26/2022 14:58 [facility] Absolute Lymphocytes 1.44 1.09 - 3.30 K/cmm 07/26/2022 14:58 [facility] Absolute Monocytes 0.40 0.10 - 0.80 K/cmm 07/26/2022 14:58 [facility] Absolute Eosinophils 0.12 0.03 - 0.61 K/cmm 07/26/2022 14:58 [facility] ABS Basophils 0.04 0.01 - 0.11 K/cmm 07/26/2022 14:58 [facility] Absolute Immature Grans 0.01 0.00 - 0.06 K/cmm 07/26/2022 14:58 [facility] Type of Differential: Auto 07/26/2022 14:58 [facility] Blood VENOUS BLOOD / Unknown Venipuncture / Unknown 07/26/2022 14:08 EDT 07/26/2022 14:47 EDT Elizabeth Asencio NP PACKAGES & DNA PROBE ORDERABLES [facility] [address] [place] [address] * (ABNORMAL) COMPREHENSIVE METABOLIC PANEL (CMP) (07/26/2022 14:08 EDT) Sodium 143 136 - 145 mmol/L 07/26/2022 15:45 T [facility] Potassium 4.2 3.5 - 5.0 mmol/L 07/26/2022 15:45 [facility] Chloride 105 96 - 110 mmol/L 07/26/2022 15:45 T [facility] CO2 Total 29 22 - 32 mmol/L 07/26/2022 15:45 [facility] Glucose 106(H) 70 - 100 mg/dl 07/26/2022 15:45 [facility] BUN 15 10 - 26 mg/dL 07/26/2022 15:45 [facility] Creatinine 1.41(H) 0.52 - 1.04 mg/dL 07/26/2022 15:45 [facility] eGFR 41(L) >60 mL/min/1.7 3m2 07/26/2022 15:45 [facility] Total Protein 6.9 6.3 - 8.2 g/dL 07/26/2022 15:45 [facility] Albumin 4.4 3.4 - 4.9 g/dL 07/26/2022 15:45 [facility] Alkaline Phosphatase 59 38 - 126 U/L 07/26/2022 15:45 [facility] AST 21 15 - 46 U/L 07/26/2022 15:45 [facility] ALT 20 <35 U/L 07/26/2022 15:45 [facility] Bilirubin, Total 1.0 <1.4 mg/dL 07/27/19 15:45 [facility] Calcium 10.0 8.5 - 10.5 mg/dL 07/26/2022 15:45 [facility] Albumin/Globulin Ratio 1.8 1.0 - 2.5 07/26/2022 15:45 [facility] Anion Gap 9 5 - 14 mmol/L 07/26/2022 15:45 [facility] Blood VENOUS BLOOD / Unknown Venipuncture / Unknown 07/26/2022 14:08 EDT 07/26/2022 14:57 EDT Elizabeth Asencio NP CHEMISTRY & BLOOD GA S ORDERABLES [facility] [address] [place] [address] documented in this encounter Visit Diagnoses Diagnosis Lung nodule Solitary pulmonary nodule documented in this encounter Care Teams Corporate Legal Manager Relationship Specialty Start Date End Date Elizabeth Dsouza MD [address] [place] [address] PCP - General 02/13/12 documented as of this encounter
--- OUTSIDE RECORDS SUMMARY | 2023-12-22 15:08 | XMS_ITS | Encounter Summary ---
Author Organization [facility] Address [address] [place] [address] Care Team Providers Care Industrial Engineering Intern Name Role Phone Elizabeth Dsouza MD Primary Care Provider [phone] Encounter Details Date Type Department Care Team (Late st Contact Info) Description 08/01/2022 Prep for Procedure [facility] Pulmonology & Critical Care - [address] [id number] Amilcar Damian MD MPH [address] [facility], [address] [place] [address] Social History Tobacco Use Types [...] Contact Info) Description 01/26/2024 8:30 EST Appointment [facility] CT Scan [address] [place] [address] documented as of this encounter Visit Diagnoses Not on filedocumented in this encounter Care Teams Industrial Engineering Intern Relationship Specialty Start Date End Date Elizabeth Dosuza MD [address] [place] [phone] PCP - General 02/13/12 documented as of this encounter
--- OUTSIDE RECORDS SUMMARY | 2023-12-22 15:08 | XMS_ITS | Encounter Summary ---
Author Organization [facility] Address [address] [place] [address] Care Team Providers Care Appointment Coordinator Name Role Phone Elizabeth Dsouza MD Primary Care Provider [phone] Encounter Details Date Type Department Care Team (Late st Contact Info) Description 09/06/2022 Results Only [facility] Radiation Oncology - [address] [address] Unknown, Provider, Social History Tobacco Use Types [...] Contact Info) Description 01/26/2024 8:30 EST Appointment [facility] CT Scan [address] [place] [address] documented as of this encounter Procedures Procedure [...] on filedocumented in this encounter Care Teams Appointment Coordinator Relationship Specialty Start Date End Date Elizabeth Dsouza MD [address] [place] [address] PCP - General 02/13/12 documented as of this encounter
--- OUTSIDE RECORDS SUMMARY | 2023-12-22 15:08 | XMS_ITS | Encounter Summary ---
Author Organization [facility] Address [address] [place] [address] Care Team Providers Care Chief Payroll Clerk Name Role Phone Elizabeth Dsouza MD Primary Care Provider [phone] Encounter Details Date Type Department Care Team (Late st Contact Info) Description 11/29/2022 Documentation Visit [facility] Treatment [place] [address] [place] [address] Divina Penny, RN Social History Tobacco Use [...] Progress Notes * Divina Penny, RN - 11/29/2022 1106 EDT Yesy in for a follow up with . Yesy notes dyspnea with exertion and a will to stop smoking, she is down to 1 ppd. An appointment with Diana Covington was made. documented in this encounter Plan of Treatment Upcoming Encounters Date Type Department Care Team (Late st Contact Info) Description 01/26/2024 8:30 EST Appointment [facility] CT Scan [address] [place], [place] [address] documented as of this encounter Visit Diagnoses Not on filedocumented in this encounter Care Teams Chief Payroll Clerk Relationship Specialty Start Date End Date Elizabeth Dsouza MD [address] [place] [phone] PCP - General 02/13/12 documented as of this encounter
--- OUTSIDE RECORDS SUMMARY | 2023-12-22 15:08 | XMS_ITS | Encounter Summary ---
Author Organization [facility] Address [address] [place] [address] Care Team Providers Care Time Motion Analyst Name Role Phone Elizabeth Dsouza MD Primary Care Provider [phone] Reason for Referral * Radiology Services (Routine/Next Available) - Authorization Not Required Specialty Diagnoses / Procedures [facility] Referred To Contact Diagnoses Squamous cell carcinoma of lung, right (HCC-CMS) Procedures CT CHEST WO CONTRAST Acosta Alan MD [address] [address] [facility] Referral ID Status Reason Start Date Expiration Date Visits Requested Visits Authorized [id number] Authorization Not Required 09/09/2022 1 1 Reason for Visit * Radiology Services (Routine/Next Available) - Authorization Not Required Specialty Diagnoses / Procedures Referred By Loli rose Referred To Contact Diagnoses Squamous cell carcinoma of lung, right (HCC-CMS) Procedures CT CHEST WO CONTRAST Acosta Alan MD [address] [place] [phone] [facility] Referral ID Status Reason Start Date Expiration Date Visits Requested Visits Authorized [id number] Authorization Not Required 09/09/2022 1 1 Encounter Details Date Type Department Care Team (Latest Contact Info) Description 11/19/2022 8:56 EDT - 11/19/2022 23:[address] [facility] CT Scan [address] [place] [address] Squamous cell carcinoma of lung, right (HCC-CMS) [...] Info) Description 01/26/2024 8:[address] [facility] CT Scan [address] [place] [address] documented as of this encounter Procedures Procedure [...] is recommended. 3. No disease progression identified. [id number] Narrative 11/19/2022 12:00 EDT INDICATION: s/p SABR [...] is recommended. 3. No disease progression identified. [id number] Acosta Alan MD IMG CT ORDERABLES documented in this encounter Visit Diagnoses Diagnosis Squamous cell carcinoma of lung, right (HCC-CMS) documented in this encounter Care Teams Time Motion Analyst Relationship Specialty Start Date End Date Elizabeth Dsouza MD [address] [place] [phone] PCP - General 02/13/12 documented as of this encounter
--- OUTSIDE RECORDS SUMMARY | 2023-12-22 15:08 | XMS_ITS | Encounter Summary ---
Author Organization [facility] Address [address] [place] [address] Care Team Providers Care Location Worker Name Role Phone Elizabeth Dsouza MD Primary Care Provider [phone] Reason for Visit * Reason Comments Follow-up Encounter Details Date Type Department Care Team (Late st Contact Info) Description 07/31/2022 10:30 EDT Nurse Only [facility] Pulmonology & Critical Care - [facility] [address] [place] [address] Pulmonary, Nurse Lung nodule (Primary Dx) Social [...] Contact Info) Description 01/26/2024 8:30 EST Appointment [facility] CT Scan [address] [place], [place] [address] documented as of this encounter Visit Diagnoses Diagnosis Lung nodule- Primary Solitary pulmonary nodule documented in this encounter Care Teams Location Worker Relationship Specialty Start Date End Date Elizabeth Dsouza MD [address] [facility] [place] [address] PCP - General 02/13/12 documented as of this encounter
--- OUTSIDE RECORDS SUMMARY | 2023-12-22 15:08 | XMS_ITS | Encounter Summary ---
Author Organization [facility] Address [address] [place] [address] Care Team Providers Care Upper Lining Cementer Name Role Phone Elizabeth Dsouza MD Primary Care Provider [phone] Reason for Referral * Radiology Services (Routine/Next Available) - Authorization Not Required Specialty Diagnoses / Procedures [facility] Referred To Contact Diagnoses Squamous cell carcinoma of lung, right (HCC-CMS) Procedures CT CHEST WO CONTRAST Kaiser Mliler MD [address] [place] [phone] [facility] Referral ID Status Reason Start Date Expiration Date Visits Requested Visits Authorized [id number] Authorization Not Required 06/16/2023 1 1 Reason for Visit * Reason Onset Date Comments Follow-up 06/16/2023 Encounter Details Date Type Department Care Team (Late st Contact Info) Description 06/16/2023 Orders Only [facility] [address] [place] [address] Kaiser Miller MD [address] [place] [phone] Squamous cell carcinoma of lung, right (HCC-CMS) (Primary Dx) Social History Tobacco Use Types Packs/Day Years Used Date Smoking Tobacco: Every Day Cigarettes 1 54.8 Started: 1968 Passive Smoke Exposure: Never Smokeless [...] Contact Info) Description 01/26/2024 8:30 EST Appointment [facility] CT Scan [address] [place] [address] documented as of this encounter Results * [...] REGARDING THIS REPORT PLEASE CALL [facility] AT [phone] Narrative 07/23/2023 18:50 EDT PROCEDURE INFORMATION: Exam: [...] CONCERNS REGARDING THIS REPORT PLEASE CALL [facility] [phone] Kaiser Miller MD IMG CT ORDERABLES documented in this encounter Visit Diagnoses Diagnosis Squamous cell carcinoma of lung, right (HCC-CMS)- Primary Squamous cell carcinoma of lung, right (HCC-CMS) documented in this encounter Care Teams Upper Lining Cementer Relationship Specialty Start Date End Date Elizabeth Dsouza MD [address] [place] [address] PCP - General 02/13/12 documented as of this encounter
--- OUTSIDE RECORDS SUMMARY | 2023-12-22 15:08 | XMS_ITS | Encounter Summary ---
Author Organization [facility] Address [address] [place] [address] Care Team Providers Care Barber Or Beauty Shop Manager Name Role Phone Elizabeth Dsouza MD Primary Care Provider [phone] Encounter Details Date Type Department Care Team (Late st Contact Info) Description 09/04/2022 Results Only [facility] Radiation Oncology - [address] [address] Unknown, Provider, Social History Tobacco Use Types [...] Contact Info) Description 01/26/2024 8:30 EST Appointment [facility] CT Scan [address] [place] [address] documented as of this encounter Procedures Procedure [...] on filedocumented in this encounter Care Teams Barber Or Beauty Shop Manager Relationship Specialty Start Date End Date Elizabeth Dsouza MD [address] [place] [address] PCP - General 02/13/12 documented as of this encounter
--- OUTSIDE RECORDS SUMMARY | 2023-12-22 15:08 | XMS_ITS | Encounter Summary ---
Author Organization [facility] Address [address] [place] [address] Care Team Providers Care Accounts Payable Or Receivable Clerk Name Role Phone Elizabeth Dsouza MD Primary Care Provider [phone] Reason for Referral * Radiology Services (Routine/Next Available) - Receiving Office to Obtain Authorization Specialty Diagnoses / Procedures Referred By Contac t Referred To Contact Diagnoses Lung mass Procedures CT SECONDARY READ CHEST Elizabeth Asencio NP [address] [address] [facility] Referral ID Status Reason Start Date Expiration Date Visits Requested Visits Authorized [id number] Receiving Office to Obtain Authorization 07/26/2022 1 1 Reason for Visit * Radiology Services (Routine/Next Available) - Receiving Office to Obtain Authorization Specialty Diagnoses / Procedures Referred By Contac t Referred To Contact Diagnoses Lung mass Procedures CT SECONDARY READ CHEST Elizabeth Asencio NP [address] [address] [facility] Referral ID Status Reason Start Date Expiration Date Visits Requested Visits Authorized [id number] Receiving Office to Obtain Authorization 07/26/2022 1 1 Encounter Details Date Type Department Care Team (Latest Contact Info) Description 07/26/2022 10:19 EDT - 07/26/2022 13:09 EDT Hospital Encounter [facility] Radiology - Main [place] [address] [place] [address] Lung mass Discharge Disposition: Home or Self [...] Contact Info) Description 01/26/2024 8:30 EST Appointment [facility] CT Scan [address] [place] [address] documented as of this encounter Procedures Procedure [...] specific discrete suspicious osseous lesion. Elizabeth Asencio FARM EQUIPMENT ASSEMBLER IMG CT ORDERABLES documented in this encounter Visit Diagnoses Diagnosis Lung mass Swelling, mass, or lump in chest documented in this encounter Care Teams Accounts Payable Or Receivable Clerk Relationship Specialty Start Date End Date Elizabeth Dsouza MD [address] [place] [address] PCP - General 02/13/12 documented as of this encounter
--- OUTSIDE RECORDS SUMMARY | 2023-12-22 15:08 | XMS_ITS | Encounter Summary ---
Author Organization [facility] Address [address] [place] [address] Care Team Providers Care Telephone Order Supervisor Name Role Phone Elizabeth Dsouza MD Primary Care Provider Reason for Referral * Radiology Services (Routine/Next Available) - Authorization Not Required Specialty Diagnoses / Procedures [facility] Referred To Contact Diagnoses Squamous cell carcinoma of lung, right (HCC-CMS) Procedures CT CHEST WO CONTRAST Acosta Alan MD [address] [place] [phone] [place] Referral ID Status Reason Start Date Expiration Date Visits Requested Visits Authorized [id number] Authorization Not Required 09/09/2022 1 1 Encounter Details Date Type Department Care Team (Late st Contact Info) Description 09/09/2022 Radiation Therapy Visit [facility] [place] [address] [place], [place] [address] Acosta Alan MD [address] [place] [phone] Squamous cell carcinoma of lung, right (HCC-CMS) (Primary Dx) Social History Tobacco Use Types Packs/Day Years Used Date Smoking Tobacco: Every Day Cigarettes 2 54.8 Started: 1969 Passive Smoke Exposure: Never [...] Melodie Hodge Date of : 1955 MR#: [id number] MD: Too Alan MD Diagnosis: Cancer Staging [...] chest. Signed By: Acosta Alan MD Radiation Oncology[facility] (p) [phone] / (f) [phone] documented in this encounter Plan of Treatment Upcoming Encounters Date Type Department Care Team (Late st Contact Info) Description 01/26/2024 8:30 EST Appointment [facility] CT Scan [address] [place] [address] documented as of this encounter Results * [...] is recommended. 3. No disease progression identified. [id number] Narrative 11/19/2022 12:00 EDT INDICATION: s/p SABR [...] is recommended. 3. No disease progression identified. [id number] Acosta Alan MD IMG CT ORDERABLES documented in this encounter Visit Diagnoses Diagnosis Squamous cell carcinoma of lung, right (HCC-CMS)- Primary Squamous cell carcinoma of lung, right (HCC-CMS) documented in this encounter Care Teams Telephone Order Supervisor Relationship Specialty Start Date End Date Elizabeth Dsouza MD [address] [facility] [phone] PCP - General 02/13/12 documented as of this encounter
--- OUTSIDE RECORDS SUMMARY | 2023-12-22 15:09 | XMS_ITS | Encounter Summary ---
Author Organization [facility] Address [address] [place] [address] Care Team Providers Care Wedding Decorator Name Role Phone Elizabteh Dsouza MD Primary Care Provider [phone] Reason for Visit * (Routine/Next Available) - Receiving Office to Obtain Authorization Specialty Diagnoses / Procedures Referred By Loli rose Referred To Contact Procedures XR OUTSIDE IMAGES RIGHT LOWER EXTREMITY Imaging, External Referral ID Status Reason Start Date Expiration Date Visits Requested Visits Authorized [id number] Receiving Office to Obtain Authorization 08/09/2022 1 1 Encounter Details Date Type Department Care Team (Latest Contact Info) Description 05/22/2022 Hospital Encounter [facility] Secondary Reads [place] Discharge Disposition: Home or [...] Contact Info) Description 01/26/2024 8:30 EST Appointment [facility] CT Scan [address] [place] [address] documented as of this encounter Procedures Procedure [...] on filedocumented in this encounter Care Teams Wedding Decorator Relationship Specialty Start Date End Date Elizabeth Dsouza MD [address] [place] [address] PCP - General 02/13/12 documented as of this encounter
--- OUTSIDE RECORDS SUMMARY | 2023-12-22 15:09 | XMS_ITS | Encounter Summary ---
Author Organization [facility] Address [address] [place] [address] Care Team Providers Care Social Security Benefits Interviewer Name Role Phone Elizabeth Dsouza MD Primary Care Provider [phone] Reason for Referral * Test (Routine/Next Available) - Authorization Not Required Specialty Diagnoses / Procedures Referred By Contac t Referred To Contact Diagnoses Lung nodule Procedures PULMONARY FUNCTION TESTING Juliocesar Limon MD Referral ID Status Reason Start Date Expiration Date Visits Requested Visits Authorized [id number] Authorization Not Required 07/15/2022 1 1 Reason for Visit * Test (Routine/Next Available) - Authorization Not Required Specialty Diagnoses / Procedures Referred By Loli rose Referred To Contact Diagnoses Lung nodule Procedures PULMONARY FUNCTION TESTING Juliocesar Limon MD Referral ID Status Reason Start Date Expiration Date Visits Requested Visits Authorized [id number] Authorization Not Required 07/15/2022 1 1 Encounter Details Date Type Department Care Team (Latest Contact Info) Description 07/26/2022 13:10 EDT - 07/26/2022 23:59 EDT Hospital Encounter [facility] Pulmonary Function Lab - [facility] [address] [place] [address] Lung nodule Discharge Disposition: Home [...] EDT Testing was performed and recorded in [employer]. See complete report in Procedures. documented in this encounter Plan of Treatment Upcoming Encounters Date Type Department Care Team (Late st Contact Info) Description 01/26/2024 8:30 EST Appointment [facility] CT Scan [address] [place] [address] documented as of this encounter Procedures Procedure Name Priority Date/Time Associated Diagnosis Comments PULMONARY FUNCTION TESTING Routine 07/26/2022 14:15 EDT Lung nodule documented in this encounter Results * PULMONARY FUNCTION TESTING (07/26/2022 14:15 EDT) 07/26/2022 14:1 5 EDT Juliocesar Limon MD PFT ORDERABLES [facility] PFT documented in this encounter Visit [...] 07/26/2022 documented in this encounter Care Teams Social Security Benefits Interviewer Relationship Specialty Start Date End Date Elizabeth Dsouza MD [address] [place] [phone] PCP - General 02/13/12 documented as of this encounter
--- OUTSIDE RECORDS SUMMARY | 2023-12-22 15:09 | XMS_ITS | Encounter Summary ---
Author Organization [facility] Address [address] [place] [address] Care Team Providers Care Casting Machine Operator Name Role Phone Elizabeth Dsouza MD Primary Care Provider [phone] Reason for Visit * Reason Onset Date Comments Follow-up 07/23/2022 Encounter Details Date Type Department Care Team (Late st Contact Info) Description 07/23/2022 Telephone [facility] Pulmonology & Critical Care - [facility] [address] [place] [address] Audrey Mix, RN Follow-up Social History Tobacco [...] Contact Info) Description 01/26/2024 8:30 EST Appointment [facility] CT Scan [address] [place] [address] documented as of this encounter Visit Diagnoses Not on filedocumented in this encounter Care Teams Casting Machine Operator Relationship Specialty Start Date End Date Elizabeth Dsouza MD [address] [place] [address] PCP - General 02/13/12 documented as of this encounter
--- OUTSIDE RECORDS SUMMARY | 2023-12-22 15:09 | XMS_ITS | Encounter Summary ---
Author Organization [facility] Address [address] [place] [address] Care Team Providers Care Chief Information Security Officer Name Role Phone Elizabeth Dsouza MD Primary Care Provider [phone] Reason for Visit * Reason Onset Date Comments Appointment Related 07/12/2022 Encounter Details Date Type Department Care Team (Late st Contact Info) Description 07/12/2022 Telephone [facility] Pulmonology & Critical Care - [address] [phone] Amilcar Damian MD MPH [address] [place] [address], [address] [place] [address] Appointment Related Social History Tobacco [...] Contact Info) Description 01/26/2024 8:30 EST Appointment [facility] CT Scan [address] [place], [place] [address] documented as of this encounter Visit Diagnoses Not on filedocumented in this encounter Care Teams Chief Information Security Officer Relationship Specialty Start Date End Date Elizabeth Dsouza MD [address] [place] [address] PCP - General 02/13/12 documented as of this encounter
--- OUTSIDE RECORDS SUMMARY | 2023-12-22 15:09 | XMS_ITS | Encounter Summary ---
Author Organization [facility] Address [address] [place] [address] Care Team Providers Care Solicitor Patent Name Role Phone Elizabeth Dsouza MD Primary Care Provider [phone] Encounter Details Date Type Department Care Team (Late st Contact Info) Description 05/28/2022 Lab Requisition [facility] Pathology & Laboratory Medicine - [facility] [address] [place] [address] Outr Resulting Lab, Provider Social History Tobacco [...] [facility] CT Scan [address] [place], [place] [address] documented as of this encounter Procedures Procedure [...] 32.9 N/A % 05/31/19 23 15:42 EDT [facility] Albumin, Urine mg/dL 14 mg/dL 05/30/2022 15:42 EDT [facility] Globulins, Urine % 67.1 N/A % 05/30/2022 15:42 EDT [facility] Globulins, Urine mg/dL 28 mg/dL 05/30/2022 15:42 EDT [facility] UPEP Comment See Comment 05/30/2022 15:42 EDT [facility] Comment:Electrophoresis scre ening performed; Immunotyping to follow. ??See scanned/supplementary report. Immunotyping, Urine Current Interpretation : Negative for free monoclonal light chains. Interpreted by: Kannan Hamilton MD, PhD 05/30/2022 15:17. 05/30/2022 15:42 EDT [facility] Total Protein, Urine 42 See Note mg/dL 05/30/2022 15:42 EDT [facility] Comment: NOTE: Reference range has not been established for total protein concentration in random urine specimens. Urine URINE / Unknown 05/28/2022 1 1:20 EDT 05/29/2022 16:34 EDT Provider Outr Resulting Lab URINALYSIS O RDERABLES [facility] [address] [place] [address] * PROTEIN, TOTAL, RANDOM, URINE (05/28/2022 11:20 EDT) Urine URINE / Unknown 05/28/2022 1 1:20 EDT 05/29/2022 16:34 EDT Provider Outr Resulting Lab URINALYSIS O RDERABLES [facility] [address] [place] [address] documented in this encounter Visit Diagnoses Not on filedocumented in this encounter Care Teams Solicitor Patent Relationship Specialty Start Date End Date Elizabeth Dsouza MD [address] [place] [phone] PCP - General 02/13/12 documented as of this encounter
--- OUTSIDE RECORDS SUMMARY | 2023-12-22 15:09 | XMS_ITS | Encounter Summary ---
Author Organization [facility] Address [address] [place] [address] Care Team Providers Care Supervisor [place] Name Role Phone Elizabeth Dsouza MD Primary Care Provider [phone] Encounter Details Date Type Department Care Team (Late st Contact Info) Description 09/07/2020 Lab Requisition [facility] Pathology & Laboratory Medicine - [facility] [address] [place] [address] Outr Resulting Lab, Provider Social History Tobacco [...] Appointment [facility] CT Scan [address] [place] [address] documented as of this encounter Procedures Procedure Name Priority Date/Time Associated Diagnosis Comments H. PYLORI ANTIGEN Routine 09/06/2020 8:45 EDT documented in this encounter Results * H. PYLORI ANTIGEN (09/06/2020 8:45 EDT) H. Pylori Negative Negative 09/12/2020 13:02 EDT [facility] Feces SPECIMEN FROM RECTUM / Unknown 09/06/2020 8:45 EDT 09/07/2020 16:04 EDT Narrative [facility] - 09/12/2020 13:02 EDT Results were obtained with the [employer] DIXON. Provider Outr Resulting Lab MICROBIOLOGY - GENERAL ORDERABLES Performing Organization Address City/State/[facility] Co de Phone Number [facility] [address] [place] [address] documented in this encounter Visit Diagnoses Not on filedocumented in this encounter Care Teams Supervisor [place] Relationship Specialty Start Date End Date Elizabeth Dsouza MD [address] [place] [phone] PCP - General 02/13/12 documented as of this encounter
--- OUTSIDE RECORDS SUMMARY | 2023-12-22 15:09 | XMS_ITS | Encounter Summary ---
Author Organization [facility] Address [address] [place] [address] Care Team Providers Care Auto Body Mechanic Name Role Phone Elizabeth Dsouza MD Primary Care Provider [phone] Encounter Details Date Type Department Care Team [...] Contact Info) Description 01/26/2024 8:30 EST Appointment [facility] CT Scan [address] [place], [place] [address] documented as of this encounter Visit Diagnoses Not on filedocumented in this encounter Care Teams Auto Body Mechanic Relationship Specialty Start Date End Date Elizabeth Dsouza MD [address] [place] [phone] PCP - General 02/13/12 documented as of this encounter
--- OUTSIDE RECORDS SUMMARY | 2023-12-22 15:09 | XMS_ITS | Encounter Summary ---
Author Organization [facility] Address [address] [place] [address] Care Team Providers Care Telecommunications Operator Name Role Phone Elizabeth Dsouza MD Primary Care Provider [phone] Encounter Details Date Type Department Care Team (Late st Contact Info) Description 03/01/2022 Lab Requisition [facility] Pathology & Laboratory Medicine - [facility] [address] [place] [address] Raissa Rader MD [address] [place] [phone] Encounter for other general examination Social [...] Contact Info) Description 01/26/2024 8:30 EST Appointment [facility] CT Scan [address] [place], [place] [address] documented as of this encounter Procedures Procedure [...] explore management options, if applicable. 03/05/2022 13:21 [facility] Final Diagnosis A. SKIN AND CONJUNCTIVA OF EYELID, LEFT LOWER, EXCISION: - Follicular cyst, infundibular type, with evidence of rupture. 03/05/2022 13:21 [facility] Attestation By the signature below, the attending physician certifies that they have 1) personally conducted a gross and/or microscopic examination of the described specimen(s), and/or personally interpreted the results of laboratory testing of the described specimen(s), and 2) personally rendered or confirmed the above diagnosis. 03/05/2022 13:21 [facility] at 1321 Clinical History ? purfed cyst; clinically was very firm but filled with pus 03/05/2022 13:21 [facility] Gross Description A. Received [...] cm. The margins are inked blue. A textile machinery sales representative section is submitted as A1. BROOKE ARAGON 03/04/2022 6:20 03/05/2022 13:21 [facility] Performing Lab [facility] 03/05/2022 13:21 [facility] Scanned Images 03/05/2022 13:21 [facility] Tissue TISSUE SPECIMEN FROM SKIN / Unknown 03/01/2022 9:38 EST 03/01/2022 19:17 EST Raissa Rader MD PATHOLOGY ORDERABL ES [facility] [address] [place] [address] documented in this encounter Visit Diagnoses Diagnosis Encounter for other general examination documented in this encounter Care Teams Telecommunications Operator Relationship Specialty Start Date End Date Elizabeth Dsouza MD [address] [place] [phone] PCP - General 02/13/12 documented as of this encounter
--- OUTSIDE RECORDS SUMMARY | 2023-12-22 15:09 | XMS_ITS | Encounter Summary ---
Author Organization [facility] Address [address] [place] [address] Care Team Providers Care Jewelry Designer Name Role Phone Elizabeth Dsouza MD Primary Care Provider [phone] Encounter Details Date Type Department Care Team (Late st Contact Info) Description 01/17/2021 Lab Requisition [facility] Pathology & Laboratory Medicine - [facility] [address] [place] [address] Outr Resulting Lab, Provider Social History Tobacco [...] Contact Info) Description 01/26/2024 8:30 EST Appointment [facility] CT Scan [address] [place] [address] documented as of this encounter Procedures Procedure [...] 61.2 55.8 - 66.1 % 01/18/2021 15:14 EDT [facility] Alpha-1 % 4.6 2.9 - 4.9 % 01/18/2021 15:14 EDT [facility] Alpha-2 % 11.6 7.1 - 11.8 % 01/18/2021 15:14 EDT [facility] Beta % 9.8 8.4 - 13.1 % 01/18/2021 15:14 EDT [facility] Gamma % 12.8 11.1 - 18.8 % 01/18/2021 15:14 EDT [facility] SPEP Comment No apparent monoclonal protein seen on serum electrophoresis 01/18/2021 15:14 T [facility] Comment:See scanned/suppleme ntary report. Total Protein 7.5 6.3 - 8.2 g/dL 01/18/2021 15:14 EDT [facility] Blood VENOUS BLOOD / Unknown 01/17/2021 10:21 EDT 01/17/2021 21:47 EDT Provider Outr Resulting Lab CHEMISTRY & BLOOD GAS ORDERABLES Performing Organization Address [facility] Co de Phone Number [facility] [address] [place] [address] * PROTEIN, TOTAL (01/17/2021 10:21 EDT) Blood VENOUS BLOOD / Unknown 01/17/2021 10:21 EDT 01/17/2021 21:47 EDT Provider Outr Resulting Lab CHEMISTRY & BLOOD GAS ORDERABLES Performing Organization Address [facility] Co de Phone Number [facility] [address] [place] [address] documented in this encounter Visit Diagnoses Not on filedocumented in this encounter Care Teams Jewelry Designer Relationship Specialty Start Date End Date Elizabeth Dsouza MD [address] [place] [phone] PCP - General 02/13/12 documented as of this encounter
--- OUTSIDE RECORDS SUMMARY | 2023-12-22 15:09 | XMS_ITS | Encounter Summary ---
Author Organization [facility] Address [address] [place] [address] Care Team Providers Care Film Or Tape Librarian Name Role Phone Elizabeth Dsouza MD Primary Care Provider [phone] Encounter Details Date Type Department Care Team (Late st Contact Info) Description 01/03/2022 Prep for Procedure [facility] Endoscopy [address] [place] [address] Jame Mijares MD [address] [place] [address] [address] [place] [address] Social History Tobacco Use Types [...] Contact Info) Description 01/26/2024 8:30 EST Appointment [facility] CT Scan [address] [place] [address] documented as of this encounter Visit Diagnoses Not on filedocumented in this encounter Care Teams Film Or Tape Librarian Relationship Specialty Start Date End Date Elizabeth Dsouza MD [address] [place] [address] PCP - General 02/13/12 documented as of this encounter
--- OUTSIDE RECORDS SUMMARY | 2023-12-22 15:09 | XMS_ITS | Encounter Summary ---
Author Organization [facility] Address [address] [place] [address] Care Team Providers Care Steeping Press Tender Name Role Phone Elizabeth Dsouza MD Primary Care Provider [phone] Reason for Visit * Reason Onset Date Comments Appointment Related 06/03/2022 Encounter Details Date Type Department Care Team (Late st Contact Info) Description 06/03/2022 Telephone [facility] Interventional Radiology - [address] [address] Rigo Jasmine PA-C [address] [place] [address] [address] [place] [address] Appointment Related Social History Tobacco [...] right lung biopsy with interventional radiology at [facility]. Patient will be coming in on Sunday 06/25 @ 700am, checking in at 645am at registration. The following details were reviewed with patient to ensure procedure completed on scheduled date: -Patient understands that they will need a double bottom driver for this procedure. -Patient understands that [...] can be addressed to Interventional Radiology Department [id number] Ext. 1 Patient verbalized understanding and agrees with Plan of Care. No cognitive barriers were identified during this conversation & they have our contact number to call with questions. Yudy Mukherjee documented in this encounter Plan of Treatment Upcoming Encounters Date Type Department Care Team (Late st Contact Info) Description 01/26/2024 8:30 EST Appointment [facility] CT Scan [address] [place], [place] [address] documented as of this encounter Visit Diagnoses Not on filedocumented in this encounter Care Teams Steeping Press Tender Relationship Specialty Start Date End Date Elizabeth Dsouza MD [address] [place] [phone] PCP - General 02/13/12 documented as of this encounter
--- OUTSIDE RECORDS SUMMARY | 2023-12-22 15:09 | XMS_ITS | Encounter Summary ---
Author Organization [facility] Address [address] [place] [address] Care Team Providers Care Building Services Technician Name Role Phone Elizabeth Dsouza MD Primary Care Provider [phone] Encounter Details Date Type Department Care Team (Latest Contact Info) Description 06/25/2022 11:25 EDT - 06/25/2022 23:59 EDT Hospital Encounter [facility] Radiology [address] [address] Discharge Disposition: Home or Self Care Social [...] Contact Info) Description 01/26/2024 8:30 EST Appointment [facility] CT Scan [address] [place] [address] documented as of this encounter Procedures Procedure [...] of the right costophrenic angle from the fnqxy-if-mcur. The cardiomediastinal silhouette appears normal aside from [...] exclusionof the right costophrenic angle from the jgkkj-ej-pquw. The cardiomediastinal silhouette appears normal aside from aorticcalcification. Visualized bones and superficial soft tissues are grossly unremarkable. IMPRESSION No evidence of pneumothorax status post right lung biopsy. Sohail Magana MD IMG DIAGNOSTIC IMAGI NG ORDERABLES documented in this encounter Visit Diagnoses Not on filedocumented in this encounter Care Teams Building Services Technician Relationship Specialty Start Date End Date Elizabeth Dsouza MD [address] [place] [address] PCP - General 02/13/12 documented as of this encounter
--- OUTSIDE RECORDS SUMMARY | 2023-12-22 15:09 | XMS_ITS | Encounter Summary ---
Author Organization [facility] Address [address] [place] [address] Care Team Providers Care Textile Engineer Name Role Phone Elizabeth Dsouza MD Primary Care Provider [phone] Encounter Details Date Type Department Care Team (Latest Contact Info) Description 07/23/2022 12:09 EDT - 07/23/2022 23:59 EDT Hospital Encounter [facility] Pre-Surgical Testing [address], [place] [address] Discharge Disposition: Home or Self Care Social [...] pick you up to assist with medication cloth picker from pharmacy, review of discharge instructions and surgical consult. We ask that your ride stay within 15 minutes of the hospital for cloth picker. - CPAP/BiPAP Bring your CPAP or BiPAP machine in with you on the day of your surgery. - Nail chinese and Jewelry Remove all finger nail chinese and makeup before surgery Remove all jewelry [...] Crutches if needed. - Use the [employer] Collision Estimator given to you by your surgeon or [...] campus of surgery. For Day of Surgery: [facility] [place]: [phone]; [facility]; [phone]. Prior to Day of Surgery call: [phone]. Pre-op toll Free Number . - More information can also be found on our website: [email or web address] documented in this encounter Miscellaneous Notes * [...] obtain a plan. Dorothy Herron APRN, MSN @[id number] documented in this encounter Plan of Treatment Upcoming Encounters Date Type Department Care Team (Late st Contact Info) Description 01/26/2024 8:30 EST Appointment [facility] CT Scan [address] [place] [address] documented as of this encounter Visit Diagnoses [...] 07/30/2022 added in this encounter Care Teams Textile Engineer Relationship Specialty Start Date End Date Elizabeth Dsouza MD [address] [place] [phone] PCP - General 02/13/12 documented as of this encounter
--- OUTSIDE RECORDS SUMMARY | 2023-12-22 15:09 | XMS_ITS | Encounter Summary ---
Author Organization [facility] Address [address] [place] [address] Care Team Providers Care Cloth Finishing Range Back Tender Name Role Phone Elizabeth Dsouza MD Primary Care Provider [phone] Encounter Details Date Type Department Care Team (Late st Contact Info) Description 09/05/2020 Lab Requisition [facility] Pathology & Laboratory Medicine - [facility] [address] [place] [address] Outr Resulting Lab, Provider Social History Tobacco [...] [facility] Scan [address] [place] [address] documented as of this encounter Procedures Procedure Name Priority Date/Time Associated Diagnosis Comments CELIAC DISEASE PANEL Routine 09/05/2020 10:00 EDT documented in this encounter Results * CELIAC DISEASE PANEL (09/05/2020 10:00 EDT) Tissue Transglutaminase Antibody IGA <1.2 <4.0 U/mL 09/06/2020 12:05 EDT [facility] Comment: A negative result may be due to IgA deficiency and does not rule out celiac disease. ? Negative: ??<4.0 U/mL ? Weak Positive: ??4.0 - 10.0 U/mL ? Positive: ??>10.0 U/mL Results were obtained with the octoScopeA Lite R h-tTG IgA DIXON assay on the [employer]. IgA 179 85 - 499 mg/dL 09/06/2020 12:05 EDT [facility] Celiac Disease Interpretation Negative Serology. Celiac disease unlikely. Approximately 10% of patients with celiac disease are seronegative. Patients who are already adhering to a gluten-free diet may also be seronegative. If celiac disease is highly clinically suspected, referral to gastroenterology for additional evaluation is recommended. 09/06/2020 12:05 EDT [facility] Blood VENOUS BLOOD / Unknown 09/05/2020 10:00 EDT 09/05/2020 21:34 EDT Provider Outr Resulting Lab IMMUNOLOGY A ND SEROLOGY ORDERABLES Performing Organization Address City/State/[facility] Co de Phone Number [facility] [address] [place] [address] documented in this encounter Visit Diagnoses Not on filedocumented in this encounter Care Teams Cloth Finishing Range Back Tender Relationship Specialty Start Date End Date Elizabeth Dsouza MD [address] [place] [phone] PCP - General 02/13/12 documented as of this encounter
--- OUTSIDE RECORDS SUMMARY | 2023-12-22 15:09 | XMS_ITS | Encounter Summary ---
Author Organization [facility] Address [address] [place] [address] Care Team Providers Care Neurology Director Name Role Phone Elizabeth Dsouza MD Primary Care Provider [phone] Reason for Visit * Reason Onset Date Comments Patient Education 06/18/2022 Encounter Details Date Type Department Care Team (Late st Contact Info) Description 06/18/2022 Telephone [facility] Interventional Radiology - Main [address] [address] Idania Higgins, ABEL Patient Education Social History [...] Contact Info) Description 01/26/2024 8:30 EST Appointment [facility] CT Scan [address] [place], [place] [address] documented as of this encounter Visit Diagnoses Not on filedocumented in this encounter Care Teams Neurology Director Relationship Specialty Start Date End Date Elizabeth Dsouza MD [address] [place] [address] PCP - General 02/13/12 documented as of this encounter
--- OUTSIDE RECORDS SUMMARY | 2023-12-22 15:09 | XMS_ITS | Encounter Summary ---
Author Organization [facility] Address [address] [place] [address] Care Team Providers Care Entry Level Sales Associate Name Role Phone Elizabeth Dsouza MD Primary Care Provider [phone] Encounter Details Date Type Department Care Team (Late st Contact Info) Description 05/28/2022 Lab Requisition [facility] Pathology & Laboratory Medicine - [facility] [address] [place] [address] Outr Resulting Lab, Provider Social History Tobacco [...] Contact Info) Description 01/26/2024 8:30 EST Appointment [facility] CT Scan [address] [place], [place] [address] documented as of this encounter Procedures Procedure [...] 58.9 55.8 - 66.1 % 05/30/2022 13:26 [facility] Albumin g/dL 4.4 3.6 - 5.2 g/dL 05/30/2022 13:26 [facility] Alpha-1 % 4.9 2.9 - 4.9 % 05/30/2022 13:26 [facility] Alpha-1 g/dL 0.40 0.15 - 0.40 g/dL 05/30/2022 13:26 [facility] Alpha-2 % 11.2 7.1 - 11.8 % 05/30/2022 13:26 [facility] Alpha-2 g/dL 0.80 0.50 - 1.00 g/dL 05/30/2022 13:26 [facility] Beta % 10.6 8.4 - 13.1 % 05/30/2022 13:26 [facility] Beta g/dL 0.80 0.60 - 1.20 g/dL 05/30/2022 13:26 [facility] Gamma % 14.4 11.1 - 18.8 % 05/30/2022 13:26 [facility] Gamma g/dL 1.10 0.60 - 1.60 g/dL 05/30/2022 13:26 [facility] SPEP Comment No apparent monoclonal protein seen on serum electrophoresis 05/30/2022 13:26 [facility] Comment:See scanned/suppleme ntary report. Total Protein 7.5 6.3 - 8.2 g/dL 05/30/2022 13:26 [facility] Blood VENOUS BLOOD / Unknown 05/28/2022 11:20 EDT 05/29/2022 16:42 EDT Provider Outr Resulting Lab CHEMISTRY & BLOOD GAS ORDERABLES Performing Organization Address [facility] de Phone Number [facility] [address] [place] [address] * PROTEIN, TOTAL (05/28/2022 11:20 EDT) Blood VENOUS BLOOD / Unknown 05/28/2022 11:20 EDT 05/29/2022 16:42 EDT Provider Outr Resulting Lab CHEMISTRY & BLOOD GAS ORDERABLES Performing Organization Address [facility] Co de Phone Number [facility] [address] [place] [address] documented in this encounter Visit Diagnoses Not on filedocumented in this encounter Care Teams Entry Level Sales Associate Relationship Specialty Start Date End Date Elizabeth Dsouza MD [address] [place] [address] PCP - General 02/13/12 documented as of this encounter
--- OUTSIDE RECORDS SUMMARY | 2023-12-22 15:09 | XMS_ITS | Encounter Summary ---
Author Organization [facility] Address [address] [place] [address] Care Team Providers Care Billet Cutter Name Role Phone Elizabeth Dsouza MD Primary Care Provider [phone] Encounter Details Date Type Department Care Team (Late st Contact Info) Description 07/18/2022 Abstract [facility] Pulmonology & Critical Care - [facility] [address] [place], [place] [id number] Elizabeth Dsouza MD [address] [place] [phone] Social History Tobacco Use Types Packs/Day [...] [facility] CT Scan [address] [place], [place] [address] documented as of this encounter Visit Diagnoses Not on filedocumented in this encounter Care Teams Billet Cutter Relationship Specialty Start Date End Date Elizabeth Dsouza MD [address] [place] [phone] PCP - General 02/13/12 documented as of this encounter
--- OUTSIDE RECORDS SUMMARY | 2023-12-22 15:09 | XMS_ITS | Encounter Summary ---
Author Organization [facility] Address [address] [place] [address] Care Team Providers Care Museum Librarian Name Role Phone Elizabeth Dsouza MD Primary Care Provider [phone] Reason for Visit * (Routine/Next Available) - Order Cancelled Specialty Diagnoses / Procedures Referred By Lloi rose Referred To Contact Procedures CT OUTSIDE IMAGES CHEST Imaging, External Referral ID Status Reason Start Date Expiration Date V isits Requested Visits Authorized [id number] Order Cancelled 05/28/2022 1 1 Encounter Details Date Type Department Care Team (Latest Contact Info) Description 05/23/2022 - 05/23/2022 23:59 EST Hospital Encounter [facility] [place] Discharge Disposition: [...] Contact Info) Description 01/26/2024 8:30 EST Appointment [facility] CT Scan [address] [place] [address] documented as of this encounter Visit Diagnoses Not on filedocumented in this encounter Care Teams Museum Librarian Relationship Specialty Start Date End Date Elizabeth Dsouza MD [address] [place] [address] PCP - General 02/13/12 documented as of this encounter
--- OUTSIDE RECORDS SUMMARY | 2023-12-22 15:09 | XMS_ITS | Encounter Summary ---
Author Organization [facility] Address [address] [place] [address] Care Team Providers Care Hide Stretcher Hand Name Role Phone Elizabeth Dsouza MD Primary Care Provider [phone] Reason for Visit * Reason Onset Date Comments Follow-up 07/23/2022 Encounter Details Date Type Department Care Team (Late st Contact Info) Description 07/23/2022 Telephone [facility] Pulmonology & Critical Care - [facility] [address] [place] [address] Audrey Mix, RN Follow-up Social History Tobacco [...] Encounter - Audrey Mix, RN - 07/23/2022 6841 EDT Called PCP office for medication reconciliation [...] Contact Info) Description 01/26/2024 8:30 EST Appointment [facility] CT Scan [address] [place] [address] documented as of this encounter Visit Diagnoses Not on filedocumented in this encounter Care Teams Hide Stretcher Hand Relationship Specialty Start Date End Date Elizabeth Dsouza MD [address] [place] [address] PCP - General 02/13/12 documented as of this encounter
--- OUTSIDE RECORDS SUMMARY | 2023-12-22 15:09 | XMS_ITS | Encounter Summary ---
Author Organization [facility] Address [address] [place] [address] Care Team Providers Care Antique Finisher Name Role Phone Elizabeth Dsouza MD Primary Care Provider [phone] Reason for Visit * Reason Onset Date Comments Patient Education 06/18/2022 Encounter Details Date Type Department Care Team (Late st Contact Info) Description 06/18/2022 Telephone [facility] Interventional Radiology - Main [address] [address] Idania Higgins, ABEL Patient Education Social History [...] Encounter - Idania Higgins RN - 06/18/2022 1030 EDT Interventional Radiology Appt: RUL lung biopsy [...] utilize some form of sedation. Having a road train driver to take you home is required. A bus or taxi is not allowed. It is preferable to have your road train driver accompany you to the appointment. If [...] appt. pt verbalized understanding, all questions answered. [facility] RN phone number provided, should they have any further questions prior to this appointment. documented in this encounter Plan of Treatment Upcoming Encounters Date Type Department Care Team (Late st Contact Info) Description 01/26/2024 8:30 EST Appointment [facility] CT Scan [address] [place] [address] documented as of this encounter Visit Diagnoses Not on filedocumented in this encounter Care Teams Antique Finisher Relationship Specialty Start Date End Date Elizabeth Dsouza MD [address] [place] [address] PCP - General 02/13/12 documented as of this encounter
--- OUTSIDE RECORDS SUMMARY | 2023-12-22 15:09 | XMS_ITS | Encounter Summary ---
Author Organization [facility] Address [address] [place] [address] Care Team Providers Care Manager Mobile Name Role Phone Elizabeth Dsouza MD Primary Care Provider [phone] Reason for Referral * Radiology Services (Routine/Next Available) - Closed Specialty Diagnoses / Procedures Referred By Contac t Referred To Contact Nuclear Medicine Diagnoses Lung nodule Procedures PET CT EYE TO Amilcar Velazquez MD [facility] [address] [address] [facility] Referral ID Status Reason Start Date Expiration Date Visits Re quested Visits Authorized [id number] Closed 07/19/2022 09/02/2022 1 1 Reason for Visit * Radiology Services (Routine/Next Available) - Closed Specialty Diagnoses / Procedures Referred By Loli rose Referred To Contact Nuclear Medicine Diagnoses Lung nodule Procedures PET CT EYE TO Amilcar Velazquez [facility] [address] [phone] [facility] Referral ID Status Reason Start Date Expiration Date Visits Re quested Visits Authorized [id number] Closed 07/19/2022 09/02/2022 1 1 Encounter Details Date Type Department Care Team (Latest Contact Info) Description 07/26/2022 8:24 EDT - 07/26/2022 10:18 EDT Hospital Encounter [facility] Radiology Nuclear Medicine and PET - [address] [address] Lung nodule Discharge Disposition: Home or Self [...] Contact Info) Description 01/26/2024 8:30 EST Appointment [facility] CT Scan [address] [place] [address] documented as of this encounter Procedures Procedure [...] the IV injection of 8.24 mCi of [id number], 3D TOF PET imaging was obtained from the skull base to upper thighs using a [employer] digital ??PET/CT system. ??The blood glucose level [...] following the IV injection of 8.24 mCi [id number], 3D TOF PET imaging was obtained from the skullbase to upper thighs using a [employer] digital PET/CT system. Theblood glucose level prior [...] 70 - 100 mg/dL 07/26/2022 9:07 EDT [facility] HN LAB POC COMMENT (GLUCOSE) Test Performed by Nursing Services 07/26/2022 9:07 EDT [facility] Blood CAPILLARY BLOOD / Unknown 07/26/2022 9:05 EDT 07/26/2022 9:06 EDT Provider Unknown POINT OF CARE TEST O RDERABLES [facility] [address] [place] [address] documented in this encounter Visit Diagnoses Diagnosis [...] 07/26/2022 documented in this encounter Care Teams Manager Mobile Relationship Specialty Start Date End Date Elizabeth Dsouza MD [address] [place] [address] PCP - General 02/13/12 documented as of this encounter
--- OUTSIDE RECORDS SUMMARY | 2023-12-22 15:09 | XMS_ITS | Encounter Summary ---
Author Organization [facility] Address [address] [place] [address] Care Team Providers Care Crop Or Livestock Tenant Farmer Name Role Phone Elizabeth Dsouza MD Primary Care Provider [phone] Reason for Referral * Radiology Services (Routine/Next Available) - Authorization Not Required Specialty Diagnoses / Procedures Referred By Loli rose Referred To Contact Diagnoses Abnormal x-ray of lung Procedures IR Elizabeth Salas MD [address] [place] [address] [facility] Referral ID Status Reason Start Date Expiration Date Visits Requested Visits Authorized [id number] Authorization Not Required 05/28/2022 1 1 Reason for Visit * Radiology Services (Routine/Next Available) - Authorization Not Required Specialty Diagnoses / Procedures Referred By Loli rose Referred To Contact Diagnoses Abnormal x-ray of lung Procedures IR Elizabeth Salas MD [address] [place] [address] [facility] Referral ID Status Reason Start Date Expiration Date Visits Requested Visits Authorized [id number] Authorization Not Required 05/28/2022 1 1 Encounter Details Date Type Department Care Team (Late st Contact Info) Description 06/25/2022 6:34 EDT - 06/25/2022 11:24 EDT Hospital Encounter [facility] Interventional Radiology Unit [address], [place] [id number] Rigo Jasmine PA-C [address] [phone] Sohail Magana MD [address] [phone] Abnormal x-ray of lung; Lung [...] stretcher independently Patient greeted and identified per [facility] medical center policy. Allergies and procedure verified & patient oriented to Unit. Reviewed all pre-procedure instructions with Melodie Hodge. All questions answered & patient verbalizes willingness and understandi ng of pre-procedure education. Patient stretcher in low position with side rails up & call bellwithin patient reach. Patient's significant other and son are at bedside and chair car driver home. * Melodie Garcia RN - 06/25/2022 0700 EDT Procedure: Lung Biopsy RUL Patient Arrived [...] Time out occurred and procedure started. (TK/ SARAH /NEHAL / ) Puncture site RUL Time [...] RN - 06/25/2022 0700 EDT Melodie Joelle VillaHodge arrived to CVU #2 at 0950 via [...] Anemia ??? COPD (chronic obstructive pulmonary disease) ([facility]) ??? Diverticulitis large intestine ??? GERD (gastroesophageal [...] guided RUL lung biopsy Date Performed: 06/25/2022 Radiologist/Structures Mechanic(s): [place] Sedation/Anesthesia: Moderate Time Out: A time-out [...] Contact Info) Description 01/26/2024 8:30 EST Appointment [facility] CT Scan [address] [place] [address] documented as of this encounter Procedures Procedure Name Priority Date/Time Associated Diagnosis Comments XR CHEST 1 VIEW Routine 06/25/2022 11:35 EDT IR BIOPSY Routine 06/25/2022 9:49 EDT Abnormal x-ray of lung NON MIRROR INSPECTOR/FNA CYTOLOGY Routine 06/25/2022 9:14 EDT Abnormal x-ray [...] of the right costophrenic angle from the [id number]. The cardiomediastinal silhouette appears normal aside from aortic calcification. Visualized bones and superficial soft tissues are grossly unremarkable. Procedure Note Thi Lmia MD - 06/25/2022 XR CHEST 1 VIEW [...] exclusionof the right costophrenic angle from the toqha-kv-baet. The cardiomediastinal silhouette appears normal aside from aorticcalcification. Visualized bones and superficial soft tissues are grossly unremarkable. IMPRESSION No evidence of pneumothorax status post right lung biopsy. Sohail Magana MD IMG DIAGNOSTIC IMAGI NG ORDERABLES * IR BIOPSY (06/25/2022 9:49 EDT) [...] biopsy showed local pulmonary hemorrhage without hemoptysis. [place] were removed, hemostasis obtained, and a sterile [...] lobe nodule. Multiple aspirates were then obtained [id number], 15 cm long Chiba needles and given to the cytopathologist forevaluation. Thereafter, multiple 20-gauge core biopsies were performedthru the lesion at the request of the onsite cytopathologist. A repeatscan obtained immediately after the biopsy showed local pulmonary hemorrhage without hemoptysis. [place] were removed, hemostasisobtained, and a sterile dressing was placed. The patient tolerated the procedure well. The patient was then placed in the right lateral decubitus position andtransferred to postprocedure recovery for monitoring. IMPRESSION Successful CT-guided aspiration and core biopsy of a 1.2 cm nodule withinthe right upper lobe. Elizabeth Dsouza MD [facility] IR ORDERABLES * SURGICAL PATHOLOGY (06/25/2022 9:14 EDT) Note to Patient The following pathology results have been interpreted by your pathologist and may be available to you before your health provider has had the opportunity to review them. Please allow time for your provider to receive these results and explore management options, if applicable. 2022 14:54 [facility] Final Diagnosis A. 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 2022 14:54 [facility] Diagnosis Comment Please see and correlate with the finding(s) of the concurrent cytology specimen ([id number]). 2022 14:54 [facility] Attestation There was significant resident/fellow involvement in the diagnostic evaluation of this case. By the signature below, the attending physician certifies that they have personally conducted a gross and/or microscopic examination of the described specimens and rendered or confirmed the above diagnosis. 2022 14:54 [facility] at 1454 Clinical History Smoker with right lung 1 cm nodule; evaluate for malignancy; clinical diagnosis code: R91.8 2022 14:54 EDT [facility] Gross Description A. Received in formalin labelled with proper patient identification (initials B, C) and not otherwise specified are multiple irregular and cylindrical brown tissue fragments ranging from less than 0.1 cm in greatest dimension to 0.4 by less than 0.1 cm. Entirely submitted in A1-A2. CHENG MCCLAIN(ASCP) 06/25/2022 12:12 2022 14:54 EDT [facility] Resident/Bashir w: Sigrid Astorga DO 2022 14:54 EDT [facility] Performing Lab [facility] 2022 14:54 EDT [facility] Scanned Images 2022 14:54 EDT [facility] Tissue ENTIRE RIGHT LUNG / Unknown Collection, Other / Unknown 06/25/2022 9:14 EDT 06/25/2022 10:36 EDT Rigo Jasmine PA-C PATHOLOGY ORDERAB LES [facility] [address] [place] [address] * NON MIRROR INSPECTOR/FNA CYTOLOGY (06/25/2022 9:14 EDT) Note to Patient The following pathology results have been interpreted by your pathologist and may be available to you before your health provider has had the opportunity to review them. Please allow time for your provider to receive these results and explore management options, if applicable. 07/02/2022 10:58 EDT [facility] Final Diagnosis A. LUNG, RIGHT, 1 CM NODULE, CT-GUIDED FINE NEEDLE ASPIRATION: - Suspicious for squamous cell carcinoma. See comment. 07/02/2022 10:58 EDT [facility] Diagnosis Comment The specimen [...] dysplastic squamous epithelium. Concurrent surgical pathology biopsy ([id number]) was reviewed and deeper levels examined. The core biopsy shows dysplastic squamous epithelium similar to that present on the cytology specimen. The core also shows atypical pneumocytes which are not present on the cytology specimen. Infant Nanny slides of this case were reviewed by Dr. Karan Nj. 07/02/2022 10:58 [facility] Attestation By the signature below, the attending physician certifies that they have personally conducted a gross and/or microscopic examination of the described specimens and rendered or confirmed the above diagnosis. 07/02/2022 10:58 [facility] at 1058 Rapid Diagnosis [...] Dr.S Lizama; 06/25/2022; 9:20 AM 07/02/2022 10:58 [facility] Clinical History 66 yo female smoker with right lung 1 cm nodule. evaluate for malignancy 07/02/2022 10:58 [facility] Gross Description A. 17 fixed prepared slides, 3 air dried prepared slides, and 1 tube of RPMI for cell block processing were receive 07/02/2022 10:58 [facility] Performing Lab [facility] 07/02/2022 10:58 [facility] Scanned Images 07/02/2022 10:58 [facility] Fine Needle Aspirate ENTIRE RIGHT LUNG / Unknown 06/25/2022 9:14 EDT 06/25/2022 9:52 EDT Rigo Jasmine PA-C PATHOLOGY ORDERAB LES [facility] [address] [place] [address] * PLATELET COUNT (06/25/2022 7:31 EDT) PLT 179 141 - 377 K/cmm 06/25/2022 8:10 EDT [facility] Blood VENOUS BLOOD / Unknown Venipuncture / Unknown 06/25/2022 7:31 EDT 06/25/2022 7:34 EDT Glynn Vann PA-C HEMATOLOGY & PF4 ORDERABLES Performing Organization Address [facility] de Phone Number [facility] [address] [place] [address] * PROTIME (06/25/2022 7:31 EDT) I.N.R. 1.1 0.9 - 1.1 Ratio 06/25/2022 7:51 EDT [facility] Pro Time 12.7 9.7 - 12.8 secs 06/25/2022 7:51 EDT [facility] Blood VENOUS BLOOD / Unknown Venipuncture / Unknown 06/25/2022 7:31 EDT 06/25/2022 7:34 EDT Narrative [facility] - 06/25/2022 7:51 EDT Moderate Intensity Coumadin INR = 2.0-3.0 Adjustments in anticoagulant therapy dose should be based on the INR and NOT on the Protime. Glynn Vann PA-C HEMATOLOGY & PF4 ORDERABLES Performing Organization Address [facility] Co de Phone Number [facility] [address] [place] [address] documented in this encounter Visit Diagnoses Diagnosis [...] PRN, Starting on Fri06/25/22 at 0809, Until 06/25/22 at 0950, Other, Per Admin Instructions ONLY, Routine, Intraprocedure Given 06/25/2022 9:30 EDT 0.5 mg Given 06/25/2022 8:46 EDT 1 mg sodium chloride 0.9 % (NS) infusion 50 mL/hr, intravenous, CONTINUOUS, Starting on Fri06/25/22 at 0730, Until Tish 06/27/22 at 0203, [...] 06/25/2022 documented in this encounter Care Teams Crop Or Livestock Tenant Farmer Relationship Specialty Start Date End Date Elizabeth Dsouza MD [address] [facility] [place] [phone] PCP - General 02/13/12 documented as of this encounter
--- OUTSIDE RECORDS SUMMARY | 2023-12-22 15:09 | XMS_ITS | Encounter Summary ---
Author Organization [facility] Address [address] [place] [address] Care Team Providers Care Supervisor Lathing Name Role Phone Elizabeth Dsouza MD Primary Care Provider [phone] Reason for Visit * Reason Onset Date Comments Results 01/23/2021 Encounter Details Date Type Department Care Team (Late st Contact Info) Description 01/23/2021 Telephone [facility] [address] [place] [id number] Dwight Samano MD [address] [facility]- [address] [place] [address] Results Social History Tobacco Use [...] Info) Description 01/26/2024 8:[address] [facility] CT Scan [address] [place] [address] documented as of this encounter Visit Diagnoses Not on filedocumented in this encounter Care Teams Supervisor Lathing Relationship Specialty Start Date End Date Elizabeth Dsouza MD [address] [place] [phone] PCP - General 02/13/12 documented as of this encounter
--- OUTSIDE RECORDS SUMMARY | 2023-12-22 15:09 | XMS_ITS | Encounter Summary ---
Author Organization [facility] Address [address] [place] [address] Care Team Providers Care Material Planner Name Role Phone Elizabeth Dsouza MD Primary Care Provider [phone] Reason for Visit * Reason Comments Abnormal Lab Patient presents [facility] for abnormal labs. Patietn states they're iron levels are low. C/o fatigue and shortness of breathe x 2 weeks. Shortness of Breath Encounter Details Date Type Department Care Team (Late st Contact Info) Description 12/28/2021 16:56 EDT - 12/28/2021 23:00 EDT Emergency [facility] Emergency Department [address] [place] [address] Jeancarlos Conklin MD [address] [place] [address] Iron deficiency anemia, unspecified iron [...] be sent through Care Everywhere. * Hypokalemia (Kittitian) * Anemia: Iron Deficiency (Kittitian) documented in this encounter Medications at Time [...] Code Departure Means Destination Home or Self Halfway documented in this encounter ED Notes * Jeancarlos Conklin MD - 12/28/2021 3697 EDT Emergency Department Visit Assessment and ED [...] Hypokalemia Disposition: Discharged Chief complaint: weakness HPI Vikram Clifford is a 66-year-old with a history [...] Contact Info) Description 01/26/2024 8:30 EST Appointment [facility] CT Scan [address] [place] [address] documented as of this encounter Procedures Procedure [...] 6:52 EDT) 12/31/2021 6:52 EDT Scan 2 Level Vial Inspector And Tester PROCEDURE/MINOR PHILIPPE GICAL ORDERABLES * TRANSFUSE RED BLOOD CELLS (12/28/2021 22:50 EDT) Blood Jeancarlos Conklin MD NURSING TREATMENT - BLOOD ADMINISTRATION * (ABNORMAL) BASIC METABOLIC PANEL (BMP) (12/28/2021 22:26 EDT) Sodium 142 136 - 145 mmol/L 12/28/2021 23:19 [facility] Potassium 4.1 3.5 - 5.0 mmol/L 12/28/2021 23:19 [facility] Chloride 115(H) 96 - 110 mmol/L 12/28/2021 23:19 [facility] CO2 Total 23 22 - 32 mmol/L 12/28/2021 23:19 [facility] Anion Gap 4(L) 5 - 14 12/28/2021 23:19 [facility] Glucose 99 70 - 100 mg/dL 12/28/2021 23:19 [facility] Calcium 9.1 8.5 - 10.5 mg/dL 12/28/2021 23:19 [facility] BUN 10 10 - 26 mg/dL 12/28/2021 23:19 [facility] Creatinine 1.47(H) 0.52 - 1.04 mg/dL 12/28/2021 23:19 [facility] eGFR 39(L) >60 mL/min/1.73 m2 12/28/2021 23:19 [facility] Blood VENOUS BLOOD / Unknown Venipuncture / Unknown 12/28/2021 22:26 EDT 12/28/2021 22:28 EDT Jeancarlos Conklin MD CHEMISTRY & BLOOD G ORDERABLES [facility] [address] [place] [address] * PREPARE RED BLOOD CELLS (12/28/2021 18:39 EDT) Product Code [id number] [facility] Donor Number [id number] [facility] [place] [facility] Unit ABO A [facility] Unit Rh NEG [facility] Unit Status PT^Presumed Transfuse [facility] Product Expiration Date [facility] Unit Blood Type Code 0600 [facility] Volume 285 [facility] Coding System [id number] [facility] [place] [facility] Blood 12/28/2021 18:3 9 EDT Jeancarlos Conklin MD BLOOD BANK ORDERABL ES [facility] [address] [place] [address] * EKG 12-LEAD (12/28/2021 18:18 EDT) 12/28/2021 18:1 8 EDT Narrative [facility] - 12/28/2021 20:18 EDT ? [facility] ? Test Date: ?2021-12-28 Pat Name: ? VIKRAM CLIFFORD ? Department: ? Room: ? A03 Gender: ? Female ? Extrusion Supervisor: ?? DT : ?1955 ? Requested By: ABDIRIZAK MARIANO Order Number: [id number] ? Reading : ?? REGINO FLYNN MD ? Measurements Intervals ?[place] ? Rate: ? 77 ? P: ?77 RI: ? 130 ?QRS: ?52 QRSD: ? 82 [...] Procedure Note Regino Flynn MD - 12/28/2021 [facility] Test Date: 2021-12-28 Pat Name: VIKRAM CLIFFORD Department: Room: A03 Gender: Female Extrusion Supervisor: DT : 1955 Requested By: ABDIRIZAK MARIANO Order Number: [id number] Reading MD: REGINO FLYNN MD Measurements Intervals [place] Rate: 77 P: 77 RI: 130 QRS: 52 QRSD: 82 T: 78 [...] Jeancarlos Conklin MD CARDIAC ECG ORDERAB LES [facility] * ANTIBODY SCREEN (12/28/2021 17:20 EDT) Antibody Screen Negative 12/28/2021 19:07 EDT [facility] Specimen Expires: 12/31/2021 @ 23:59 12/28/2021 19:07 EDT [facility] Blood VENOUS BLOOD / Unknown Venipuncture / Unknown 12/28/2021 17:20 EDT 12/28/2021 17:48 EDT Jeancarlos Conklin MD BLOOD BANK TESTS [facility] [address] [place] [address] * MAGNESIUM (12/28/2021 17:20 EDT) Magnesium 1.8 1.7 - 2.8 mg/dL 12/28/2021 17:44 EDT [facility] Blood VENOUS BLOOD / Unknown Venipuncture / Unknown 12/28/2021 17:20 EDT 12/28/2021 17:21 EDT Jeancarlos Conklin MD CHEMISTRY & BLOOD G ORDERABLES Performing Organization Address City/[facility]/ZIP Co de Phone Number [facility] [address] [place] [address] * TYPE AND SCREEN (12/28/2021 17:20 EDT) ABO A 12/28/2021 19:03 EDT [facility] Rh Factor Negative 12/28/2021 19:03 EDT [facility] Antibody Screen Positive 12/28/2021 19:03 [facility] Specimen Expires: 12/31/2021 @ 23:59 12/28/2021 19:03 [facility] Blood VENOUS BLOOD / Unknown Venipuncture / Unknown 12/28/2021 17:20 EDT 12/28/2021 17:48 EDT Jeancarlos Conklin MD BLOOD BANK TESTS Performing Organization Address [facility]/ZIP Co de Phone Number [facility] [address] [place] [address] * (ABNORMAL) COMPREHENSIVE METABOLIC PANEL (CMP) (12/28/2021 17:20 EDT) Sodium 144 136 - 145 mmol/L 12/28/2021 18:01 [facility] Potassium 2.5(LL) 3.5 - 5.0 mmol/L 12/28/2021 18:01 [facility] Chloride 121(H) 96 - 110 mmol/L 12/28/2021 18:01 [facility] CO2 Total 19(L) 22 - 32 mmol/L 12/28/2021 18:01 [facility] Glucose 75 70 - 100 mg/dL 12/28/2021 18:01 [facility] BUN 8(L) 10 - 26 mg/dL 12/28/2021 18:01 [facility] Creatinine 1.04 0.52 - 1.04 mg/dL 12/28/2021 18:01 [facility] eGFR 60(L) >60 mL/min/1.7 3m2 12/28/2021 18:01 [facility] Total Protein 5.3(L) 6.3 - 8.2 g/dL 12/28/2021 18:01 [facility] Albumin 2.9(L) 3.4 - 4.9 g/dL 12/28/2021 18:01 [facility] Alkaline Phosphatase 44 38 - 126 U/L 12/28/2021 18:01 [facility] AST 16 15 - 46 U/L 12/28/2021 18:01 [facility] ALT 14 <35 U/L 12/28/2021 18:01 [facility] Bilirubin, Total 0.6 <1.4 mg/dL 12/29/19 18:01 [facility] Calcium 6.7(L) 8.5 - 10.5 mg/dL 12/28/2021 18:01 [facility] Albumin/Globulin Ratio 1.2 1.0 - 2.5 12/28/2021 18:01 [facility] Anion Gap 4(L) 5 - 14 12/28/2021 18:01 [facility] Blood VENOUS BLOOD / Unknown Venipuncture / Unknown 12/28/2021 17:20 EDT 12/28/2021 17:21 EDT Jeancarlos Conklin MD CHEMISTRY & BLOOD G ORDERABLES [facility] [address] [place] [address] * (ABNORMAL) COMPLETE BLOOD COUNT AND DIFFERENTIAL (12/28/2021 17:20 EDT) WBC 5.11 4.00 - 12.40 K/cmm 12/28/2021 17:40 EDT [facility] RBC 3.02(L) 3.86 - 5.04 M/cmm 12/28/2021 17:40 [facility] Hemoglobin 6.7(LL) 11.6 - 15.2 gm/dL 12/28/2021 17:40 [facility] HCT 24.2(L) 34.9 - 44.4 % 12/28/2021 17:40 [facility] MCV 80(L) 81 - 98 fl 12/28/2021 17:40 [facility] MCH 22.2(L) 26.7 - 33.3 pg 12/28/2021 17:40 [facility] Hypochromia 2+ 12/28/2021 17:40 [facility] MCHC 27.7(L) 32.1 - 35.9 gm/dL 12/28/2021 17:40 [facility] RDW-CV 17.5(H) <14.7 % 12/28/2021 17:40 [facility] RDW-SD 51.3(H) <50.4 fl 12/28/2021 17:40 [facility] Anisocytosis 1+ 12/28/2021 17:40 [facility] PLT 173 141 - 377 K/cmm 12/28/2021 17:40 [facility] MPV 10.8 9.5 - 12.7 fl 12/28/2021 17:40 [facility] % Neutrophils 71.0 % 12/28/2021 17:40 [facility] % Lymphocytes 19.0 % 12/28/2021 17:40 [facility] % Monocytes 5.5 % 12/28/2021 17:40 [facility] % Eosinophils 3.5 % 12/28/2021 17:40 [facility] % Basophils 0.6 % 12/28/2021 17:40 [facility] % Immature Grans 0.4 % 12/29/19 17:40 [facility] Absolute Neutrophils 3.63 2.20 - 8.85 K/cmm 12/28/2021 17:40 [facility] Absolute Lymphocytes 0.97(L) 1.09 - 3.30 K/cmm 12/28/2021 17:40 T [facility] Absolute Monocytes 0.28 0.10 - 0.80 K/cmm 12/28/2021 17:40 T [facility] Absolute Eosinophils 0.18 0.03 - 0.61 K/cmm 12/28/2021 17:40 [facility] ABS Basophils 0.03 0.01 - 0.11 K/cmm 12/28/2021 17:40 [facility] Absolute Immature Grans 0.02 0.00 - 0.06 K/cmm 12/28/2021 17:40 [facility] Type of Differential: Auto 12/28/2021 17:40 [facility] Blood VENOUS BLOOD / Unknown Venipuncture / Unknown 12/28/2021 17:20 EDT 12/28/2021 17:21 EDT Jeancarlos Conklin MD PACKAGES & DNA PROB E ORDERABLES [facility] [address] [place] [address] documented in this encounter Visit Diagnoses Diagnosis [...] First Orde red Date CALL BLOOD BANK ([facility] 3826) TIER 1 ORDERS ARE PLACED 1 12/28/2021 documented in this encounter Care Teams Material Planner Relationship Specialty Start Date End Date Elizabeth Dsouza MD [facility] [place] [phone] PCP - General 02/13/12 documented as of this encounter
--- OUTSIDE RECORDS SUMMARY | 2023-12-22 15:09 | XMS_ITS | Encounter Summary ---
Author Organization [facility] Address [address] [place] [address] Care Team Providers Care Trapper Animal Name Role Phone Elizabeth Dsouza MD Primary Care Provider [phone] Reason for Visit * (Routine/Next Available) - Receiving Office to Obtain Authorization Specialty Diagnoses / Procedures Referred By Loli rose Referred To Contact Procedures NM OUTSIDE IMAGES Imaging, External Referral ID Status Reason Start Date Expiration Date Visits Requested Visits Authorized [id number] Receiving Office to Obtain Authorization 2022 1 1 Encounter Details Date Type Department Care Team (Latest Contact Info) Description 06/06/2022 - 06/06/2022 23:59 EDT Hospital Encounter [facility] Secondary Reads [place] Discharge Disposition: Home [...] Contact Info) Description 01/26/2024 8:30 EST Appointment [facility] CT Scan [address] [place] [address] documented as of this encounter Procedures Procedure Name Priority Date/Time Associated Diagnosis Comments NM OUTSIDE IMAGES Routine 06/06/2022 16: 09 EDT documented in this encounter Results * NM OUTSIDE IMAGES (06/06/2022 16:09 EDT) Narrative 2022 16:09 EDT This is a non-reportable exam. External Imaging IMG OTHER IMAGING OR DERABLES documented in this encounter Visit Diagnoses Not on filedocumented in this encounter Care Teams Trapper Animal Relationship Specialty Start Date End Date Elizabeth Dsouza MD [address] [place] [address] PCP - General 02/13/12 documented as of this encounter
--- OUTSIDE RECORDS SUMMARY | 2023-12-22 15:09 | XMS_ITS | Encounter Summary ---
Author Organization [facility] Address [address] [place] [address] Care Team Providers Care Straight Pin Making Machine Operator Name Role Phone Elizabeth Dsouza MD Primary Care Provider [phone] Reason for Visit * (Routine/Next Available) - Receiving Office to Obtain Authorization Specialty Diagnoses / Procedures Referred By Loli rose Referred To Contact Procedures XR OUTSIDE IMAGES DEXA Imaging, External Referral ID Status Reason Start Date Expiration Date Visits Requested Visits Authorized [id number] Receiving Office to Obtain Authorization 2022 1 1 Encounter Details Date Type Department Care Team (Latest Contact Info) Description 05/22/2022 - 05/22/2022 23:59 EST Hospital Encounter [facility] Radiology - Main [place] [address] [place] [address] Discharge Disposition: Home or Self Care Social [...] Contact Info) Description 01/26/2024 8:30 EST [address]ointment [facility] CT Scan [address] [place] [address] documented as of this encounter Procedures Procedure Name Priority Date/Time Associated Diagnosis Comments XR OUTSIDE IMAGES DEXA Routine 05/22/2022 16:10 EST documented in this encounter Results * XR OUTSIDE IMAGES DEXA (05/22/2022 16:10 EST) Narrative PEREZ - 2022 16:10 EDT This is a non-reportable exam. External Imaging IMG OTHER IMAGING OR DERABLES PEREZ documented in this encounter Visit Diagnoses Not on filedocumented in this encounter Care Teams Straight Pin Making Machine Operator Relationship Specialty Start Date End Date Elizabeth Dsouza MD [address] [place] [phone] PCP - General 02/13/12 documented as of this encounter
--- OUTSIDE RECORDS SUMMARY | 2023-12-22 15:09 | XMS_ITS | Encounter Summary ---
Author Organization [facility] Address [address] [place] [address] Care Team Providers Care Yeast Fermentation Attendant Name Role Phone Elizabeth Dsouza MD Primary Care Provider [phone] Reason for Visit * Reason Onset Date Comments Coordination Of Care 07/18/2022 Encounter Details Date Type Department Care Team (Late st Contact Info) Description 07/18/2022 Telephone [facility] - [address] [id number] Amilcar Damian MD MPH [address] [place] [address], [address] [place] [address] Coordination Of Care Social History [...] Lou - 07/18/2022 1040 EDT Belkis, with [facility], notes that she had received [...] Description 01/26/2024 8:[address] [facility] CT Scan [address] [place], [place] [address] documented as of this encounter Visit Diagnoses Not on filedocumented in this encounter Care Teams Yeast Fermentation Attendant Relationship Specialty Start Date End Date Elizabeth Dsouza MD [address] [place] [phone] PCP - General 02/13/12 documented as of this encounter
--- OUTSIDE RECORDS SUMMARY | 2023-12-22 15:09 | XMS_ITS | Encounter Summary ---
Author Organization [facility] Address [address] [place] [address] Care Team Providers Care Transformer Builder Name Role Phone Elizabeth Dsouza MD Primary Care Provider [phone] Encounter Details Date Type Department Care Team (Late st Contact Info) Description 04/30/2022 Lab Requisition [facility] Pathology & Laboratory Medicine - [facility] [address] [place], [place] [address] Elizabeth Dsouza MD [address] [place] [phone] Encounter for general adult medical examination [...] Info) Description 01/26/2024 8:30 EST Appointment [facility] CT Scan [address] [place] [address] documented as of this encounter Procedures Procedure [...] 16, PCR Negative Negative 05/30/2022 14:14 EDT [facility] HPV18/45 RNA (HPV18/45) Negative Negative 05/30/2022 14:14 EDT [facility] Papanicolaou smear specimen (specimen) CERVIX UTERI STRUCTURE / Unknown 04/26/2022 8:45 EST 05/13/2022 10:22 EST Elizabeth Dsouza MD MICROBIOLOGY - [facility] AL ORDERABLES [facility] [address] [place] [address] * (ABNORMAL) HUMAN PAPILLOMAVIRUS (HPV) DETECTION-HIGH RISK TYPES (04/26/2022 8:45 EST) HPV other High Risk types, PCR Positive( A) Negative 05/13/2022 15:41 EST [facility] Comment:E6 OR E7 mRNA from o ne or more types of HPV types 16,18,31,33,35,39,45,51,52,56,58,59,66, and 68 is detected by precise winder mediated amplification. High and intermediate risk HPV types are associated with most squamous intraepithelial lesions and cervical cancers. Papanicolaou smear specimen (specimen) CERVIX UTERI STRUCTURE / Unknown 04/26/2022 8:45 EST 05/13/2022 10:22 EST Elizabeth Dsouza MD MICROBIOLOGY - GENER AL ORDERABLES [facility] [address] [place] [address] * PAP TEST (04/26/2022 8:45 EST) Amendment Comment This report is amended to include High Risk HPV testing results. 05/30/2022 14:14 [facility] Specimens A. Cervix and/or Endocervix , ThinPrep Imaging System with Manual Evaluation 05/30/2022 14:14 [facility] Specimen Adequacy Satisfactory for Evaluation - transformation zone component present 05/30/2022 14:14 [facility] General Categorization Epithelial Cell Abnormality 05/30/2022 14:14 [facility] Descriptive Diagnosis Squamous Cell Abnormality - Atypical squamous cells, undetermined significance (ASC-US). 05/30/2022 14:14 [facility] Educational Comments [facility] recommends following the ASCCP's management guidelines which may be found at www.asccp.org 05/30/2022 14:14 [facility] Attestation By the signature below, the attending physician certifies that they have personally conducted a gross and/or microscopic examination of the described specimens and rendered or confirmed the above diagnosis. 05/30/2022 14:14 [facility] Amendment electronically signed by Heidi Hugo CT(ASCP) on 05/30/2022 at 1414 at 0808 Clinical History See below 05/31/19 14:14 [facility] HPV The result for the Human Papillomavirus (HPV) Detection-High Risk Types is Positive . E6 OR E7 mRNA from one or more types of HPV types 16,18,31,33,35,39 ,45,51,52,56,58,5 9,66, and 68 is detected by precise winder mediated amplification. High and intermediate risk HPV types are associated with most squamous intraepithelial lesions and cervical cancers. Testing was performed on specimen [id number] and was resulted on 05/13/2022 1541 EST by ÁLVARO, LAB INSTRUMENT RESULTS IN 05/30/2022 14:14 EDT [facility] Genotyping 16 & 18/45 The results for the HPV Genotypes 16 and 18/45 are Negative for the HPV16 RNA and Negative for the HPV18/45 RNA (HPV18/45). Testing was performed on specimen [id number] and was resulted on 05/30/2022 1410 EDT by TREY KELLER 05/30/2022 14:14 EDT [facility] Performing Lab [facility] 05/30/2022 14:14 EDT [facility] Scanned Images 05/30/2022 14:14 EDT [facility] Papanicolaou smear specimen (specimen) CERVIX UTERI STRUCTURE / Unknown 04/26/2022 8:45 EST 04/30/2022 10:04 EST Elizabeth Dsouza MD PATHOLOGY ORDERABLES [facility] [address] [place] [address] documented in this encounter Visit Diagnoses Diagnosis Encounter for general adult medical examination without abnormal findings Unspecified general medical examination Encounter for screening for malignant neoplasm of cervix Screening for malignant neoplasm of the cervix documented in this encounter Care Teams Transformer Builder Relationship Specialty Start Date End Date Elizabeth Dsouza MD [address] [place] [phone] PCP - General 02/13/12 documented as of this encounter
--- OUTSIDE RECORDS SUMMARY | 2023-12-22 15:09 | XMS_ITS | Encounter Summary ---
Author Organization [facility] Address [address] [place] [address] Care Team Providers Care Patient Svcs Mgr Name Role Phone Elizabeth Dsouza MD Primary Care Provider [phone] Encounter Details Date Type Department Care Team (Late st Contact Info) Description 05/04/2021 Lab Requisition [facility] Pathology & Laboratory Medicine - [facility] [address] [place] [address] Outr Resulting Lab, Provider Social History Tobacco [...] Info) Description 01/26/2024 8:[address] [facility] CT Scan [address] [place] [address] documented as of this encounter Procedures Procedure Name Priority Date/Time Associated Diagnosis Comments ZZCOVID-19 TEST [facility] PCR Today 05/03/2021 16:30 EST COVID-19 TESTING Routine 05/03/2021 16:3 0 EST documented in this encounter Results * COVID-19 TEST [facility] PCR (05/03/2021 16:30 EST) Swab 05/03/2021 16:3 0 EST 05/04/2021 16:59 EST Provider Outr Resulting Lab MICROBIOLOGY - GENERAL ORDERABLES Performing Organization Address [facility] de Phone Number [facility] [address] [place] [address] * COVID-19 TESTING (05/03/2021 16:30 EST) COVID-19 rt-PCR Result Negative Negative 05/05/2021 11:49 EST [facility] Comment: This test has not [...] performed using the forrest SARS-CoV-2 assay ([employer] on the Forrest 6800 System Performing Lab Forrest 6800 [facility] 05/05/2021 11:49 EST [facility] Swab 05/03/2021 16:3 0 EST 05/04/2021 16:59 EST Provider Outr Resulting Lab MICROBIOLOGY - GENERAL ORDERABLES Performing Organization Address City/[facility]/ZIP Co de Phone Number [facility] [address] [place] [address] documented in this encounter Visit Diagnoses Not on filedocumented in this encounter Care Teams Patient Svcs Mgr Relationship Specialty Start Date End Date Elizabeth Dsouza MD [address] [place] [place] [phone] PCP - General 02/13/12 documented as of this encounter
--- OUTSIDE RECORDS SUMMARY | 2023-12-22 15:09 | XMS_ITS | Encounter Summary ---
Author Organization [facility] Address [address] [place] [address] Care Team Providers Care Senior Infrastructure Engineer Name Role Phone Elizabeth Dsouza MD Primary Care Provider [phone] Reason for Referral * Referral (Routine/Next Available) - Receiving Office to Obtain Authorization Specialty Diagnoses / Procedures Referred By Loli rose Referred To Contact Diagnoses Gastrointestinal hemorrhage, unspecified gastrointestinal hemorrhage type Procedures UPPER ENDOSCOPY (EGD) Elizabeth Dsouza MD [address] [place] [address] Referral ID Status Reason Start Date Expiration Date Visits Requested Visits Authorized [id number] Receiving Office to Obtain Authorization 2 1 1 Reason for Visit * Auth/Cert Specialty Diagnoses / Procedures Referred By Loli rose Referred To Contact Referral ID Status Reason Start Date Expiration Date Visits Re quested Visits Authorized [id number] 1 1 Encounter Details Date Type Department Care Team (Latest Contact Info) Description 01/03/2022 10:50 EDT - 01/03/2022 23:59 EDT Hospital Encounter [facility] Endoscopy [address] [place] [address] Jame Mijares MD [address] [place] [address] [address] [place] [address] Gastrointestinal hemorrhage, unspecified gastrointestinal hemorrhage [...] Recorded In the last 10 days, have lvoe u been in contact with someone who [...] & Physical Date: 01/03/2022 Time: 13:05 Location: [facility] Endoscopy Planned Procedure: Upper Endoscopy Chief [...] Contact Info) Description 01/26/2024 8:30 EST Appointment [facility] CT Scan [address] [place] [address] documented as of this encounter Procedures Procedure Name Priority Date/Time Associated Diagnosis Comments ECG REPORT - SCANNED 01/08/2022 8:02 EDT UPPER ENDOSCOPY (EGD) Routine 01/03/2022 11:45 EDT Gastrointestinal hemorrhage, unspecified gastrointestinal hemorrhage type documented in this encounter Results * ECG REPORT - SCANNED (01/08/2022 8:02 EDT) 01/08/2022 8:02 EDT Scan 2 Bin Worker PROCEDURE/MINOR PHILIPPE GICAL ORDERABLES * UPPER ENDOSCOPY (EGD) (01/03/2022 11:45 EDT) Anatomical Region Laterality Modality Endoscopy Narrative 01/03/2022 11:45 EDT [facility] ?? [address], [place], [place] [address] ?? Patient Name ? VIKRAM CLIFFORD Date of ? 1955 Record Number ? [id number] Date/Time of Procedure ?01/03/2022, 11:45:00 AM Endoscopist ?Jame Mijares ?? Counter Cutter ? Referring Physician(s) ?? Elizabeth Dsouza M.D. Anesthesiologist ? PROCEDURE PERFORMED: Upper Endoscopy (EGD) INDICATIONS FOR EXAMINATION: melena Instruments: ? [id number] ([id number]) Medications: ?Fentanyl 75 mcg, Versed 3 mg [...] 01/03 documented in this encounter Care Teams Senior Infrastructure Engineer Relationship Specialty Start Date End Date Elizabeth Dsouza MD [address] [place] [address] [place] [address] PCP - General 02/13/12 documented as of this encounter
--- OUTSIDE RECORDS SUMMARY | 2023-12-22 15:09 | XMS_ITS | Encounter Summary ---
Author Organization [facility] Address [address] [place] [address] Care Team Providers Care Php Lamp Developer Name Role Phone Elizabeth Dsouza MD Primary Care Provider [phone] Reason for Referral * Consult (Routine/Next Available) - New Request Specialty Diagnoses / Procedures Referred By Loli rose Referred To Contact Hematology and Oncology Diagnoses Lung mass Elizabeth Asencio, SILVIA [address] [facility], [address] [place] [address] Referral ID Status Reason Start Date Expiration Date Visits Requested Visits Authorized [id number] New Request Specialty Services Required 07/18/2022 1 1 Question Answer Location [facility] Tumor Board Lung Working Stage TBD Additional Providers No Clinical Question? No Radiology Review Review Recent Radiology Are there studies that were perfomed outside of [facility] (even if performed at another network location) that need to be reviewed? No Please indicate which [facility] studies are to be reviewed. CT, Nuc Med Question to be answered: Discuss dz extent/staging for tx plan Pathology Review Review Recent Pathology Please indicate which slides are to be reviewed and add the pathology question recent lung biopsy Trial Options No Encounter Details Date Type Department Care Team (Late st Contact Info) Description 07/18/2022 Orders Only [facility] Hematology & Oncology - [facility] [address] [place] [address] Doroteo Ibrahim, RN Lung mass (Primary Dx) Social History [...] Contact Info) Description 01/26/2024 8:30 EST Appointment [facility] CT Scan [address] [place] [address] Scheduled Referrals Name Type Priority Associated Diagnoses Orde r Schedule AMB CONSULT/FOLLOW UP TUMOR BOARD Outpatient Referral Routine Lung mass Ordered: 07/18/2022 documented as of this encounter Visit Diagnoses Diagnosis Lung mass- Primary Swelling, mass, or lump in chest documented in this encounter Care Teams Php Lamp Developer Relationship Specialty Start Date End Date Elizabeth Dsouza MD [address] [facility] [place] [phone] PCP - General 02/13/12 documented as of this encounter
--- OUTSIDE RECORDS SUMMARY | 2023-12-22 15:09 | XMS_ITS | Encounter Summary ---
Author Organization [facility] Address [address] [place] [address] Care Team Providers Care Medicare Specialist Name Role Phone Elizabeth Dsouza MD Primary Care Provider [phone] Encounter Details Date Type Department Care Team (Late st Contact Info) Description 07/23/2022 Orders Only [facility] Pulmonology & Critical Care - [facility] [address] [place] [address] Audrey Mix, RN Lung nodule (Primary Dx) [...] Info) Description 01/26/2024 8:30 EST Appointment [facility] CT Scan [address] [place], [place] [address] documented as of this encounter Results * (ABNORMAL) COMPLETE BLOOD COUNT AND DIFFERENTIAL (07/26/2022 14:08 EDT) WBC 6.58 4.00 - 12.40 K/cmm 07/26/2022 14:58 [facility] RBC 4.87 3.86 - 5.04 M/cmm 07/26/2022 14:58 [facility] Hemoglobin 15.3(H) 11.6 - 15.2 gm/dL 07/26/2022 14:58 [facility] HCT 46.2(H) 34.9 - 44.4 % 07/26/2022 14:58 [facility] MCV 95 81 - 98 fl 07/26/2022 14:58 [facility] MCH 31.4 26.7 - 33.3 pg 07/26/2022 14:58 [facility] MCHC 33.1 32.1 - 35.9 gm/dL 07/26/2022 14:58 [facility] RDW-CV 12.9 <14.7 % 07/26/2022 14:58 [facility] RDW-SD 44.9 <50.4 fl 07/26/2022 14:58 [facility] PLT 195 141 - 377 K/cmm 07/26/2022 14:58 [facility] MPV 10.7 9.5 - 12.7 fl 07/26/2022 14:58 [facility] % Neutrophils 69.4 % 07/26/2022 14:58 [facility] % Lymphocytes 21.9 % 07/26/2022 14:58 [facility] % Monocytes 6.1 % 07/26/2022 14:58 [facility] % Eosinophils 1.8 % 07/26/2022 14:58 [facility] % Basophils 0.6 % 07/26/2022 14:58 [facility] % Immature Grans 0.2 % 07/27/19 14:58 [facility] Absolute Neutrophils 4.57 2.20 - 8.85 K/cmm 07/26/2022 14:58 EDT [facility] Absolute Lymphocytes 1.44 1.09 - 3.30 K/cmm 07/26/2022 14:58 T [facility] Absolute Monocytes 0.40 0.10 - 0.80 K/cm 07/26/2022 14:58 [facility] Absolute Eosinophils 0.12 0.03 - 0.61 K/cm 07/26/2022 14:58 [facility] ABS Basophils 0.04 0.01 - 0.11 K/cm 07/26/2022 14:58 [facility] Absolute Immature Grans 0.01 0.00 - 0.06 K/cm 07/26/2022 14:58 [facility] Type of Differential: Auto 07/26/2022 14:58 [facility] Blood VENOUS BLOOD / Unknown Venipuncture / Unknown 07/26/2022 14:08 EDT 07/26/2022 14:47 EDT Elizabeth Asencio NP PACKAGES & DNA PROBE ORDERABLES [facility] [address] [place] [address] * (ABNORMAL) COMPREHENSIVE METABOLIC PANEL (CMP) (07/26/2022 14:08 EDT) Sodium 143 136 - 145 mmol/L 07/26/2022 15:45 [facility] Potassium 4.2 3.5 - 5.0 mmol/L 07/26/2022 15:45 [facility] Chloride 105 96 - 110 mmol/L 07/26/2022 15:45 [facility] CO2 Total 29 22 - 32 mmol/L 07/26/2022 15:45 [facility] Glucose 106(H) 70 - 100 mg/dl 07/26/2022 15:45 [facility] BUN 15 10 - 26 mg/dL 07/26/2022 15:45 [facility] Creatinine 1.41(H) 0.52 - 1.04 mg/dL 07/26/2022 15:45 [facility] eGFR 41(L) >60 mL/min/1.7 3m2 07/26/2022 15:45 [facility] Total Protein 6.9 6.3 - 8.2 g/dL 07/26/2022 15:45 [facility] Albumin 4.4 3.4 - 4.9 g/dL 07/26/2022 15:45 [facility] Alkaline Phosphatase 59 38 - 126 U/L 07/26/2022 15:45 [facility] AST 21 15 - 46 U/L 07/26/2022 15:45 [facility] ALT 20 <35 U/L 07/26/2022 15:45 [facility] Bilirubin, Total 1.0 <1.4 mg/dL 07/27/19 15:45 [facility] Calcium 10.0 8.5 - 10.5 mg/dL 07/26/2022 15:45 [facility] Albumin/Globulin Ratio 1.8 1.0 - 2.5 07/26/2022 15:45 [facility] Anion Gap 9 5 - 14 mmol/L 07/26/2022 15:45 [facility] Blood VENOUS BLOOD / Unknown Venipuncture / Unknown 07/26/2022 14:08 EDT 07/26/2022 14:57 EDT Elizabeth Asencio NP CHEMISTRY & BLOOD GA S ORDERABLES [facility] [address] [place] [address] documented in this encounter Visit Diagnoses Diagnosis Lung nodule- Primary Solitary pulmonary nodule documented in this encounter Care Teams Medicare Specialist Relationship Specialty Start Date End Date Elizabeth Dsouza MD [address] [place] [phone] PCP - General 02/13/12 documented as of this encounter
--- OUTSIDE RECORDS SUMMARY | 2023-12-22 15:09 | XMS_ITS | Encounter Summary ---
Author Organization [facility] Address [address] [place] [address] Care Team Providers Care Financial Advisor Trainee Name Role Phone Elizabeth Dsouza MD Primary Care Provider [phone] Reason for Referral * Radiology Services (Routine/Next Available) - Closed Specialty Diagnoses / Procedures [facility] Referred To Contact Nuclear Medicine Diagnoses Lung nodule Procedures PET CT EYE TO THIGH Amilcar Damian MD MPH [address] [facility], [facility] [address] [place] [address] [facility] Referral ID Status Reason Start Date Expiration Date Visits Re quested Visits Authorized [id number] Closed 07/19/2022 09/02/2022 1 1 Encounter Details Date Type Department Care Team (Late st Contact Info) Description 07/16/2022 Orders Only [facility] Center Hematology & Oncology - [facility] [address] [place] [address] Doroteo Ibrahim, ABEL Lung nodule [...] Contact Info) Description 01/26/2024 8:30 EST Appointment [facility] CT Scan [address] [place] [address] documented as of this encounter Results * [...] the IV injection of 8.24 mCi of [id number], 3D TOF PET imaging was obtained from the skull base to upper thighs using a [employer] digital ??PET/CT system. ??The blood glucose level [...] following the IV injection of 8.24 mCi [id number], 3D TOF PET imaging was obtained from the skullbase to upper thighs using a [employer] digital PET/CT system. Theblood glucose level prior [...] nodule documented in this encounter Care Teams Financial Advisor Trainee Relationship Specialty Start Date End Date Elizabeth Dsouza MD [address] [place] [phone] PCP - General 02/13/12 documented as of this encounter
--- OUTSIDE RECORDS SUMMARY | 2023-12-22 15:09 | XMS_ITS | Encounter Summary ---
Author Organization [facility] Address [address] [place] [address] Care Team Providers Care Sail Cutter Name Role Phone Elizabeth Dsouza MD Primary Care Provider [phone] Reason for Visit * Reason Comments Peripheral Neuropathy Encounter Details Date Type Department Care Team (Latest Contact Info) Description 01/17/2021 9:00 EDT Procedure visit [facility] [address] [place] [address] Dwight Samano MD [address] [facility] [address] [place] [address] Other polyneuropathy (Primary Dx) Social [...] Dwight Samano MD - 01/17/2021 0900 EDT [facility] Clinical Neurophysiology Nerve Conduction and Electromyography Report PATIENT NAME: Melodie Hodge PATIENT : 1955 PCP: Elizabeth Dsouza DATE OF SERVICE: 01/17/2021 History: Melodie Hodge is a 65 y.o. female with PVD who presents to EMG on referral by Dr Haddad of [facility] for evaluation of possible peripheral neuropathy. [...] Contact Info) Description 01/26/2024 8:30 EST Appointment [facility] CT Scan [address] [place] [address] documented as of this encounter Procedures Procedure Name Priority Date/Time Associated Diagnosis Comments ZZVITAMIN B1, THIAMINE Routine 01/17/2021 10:21 EDT Other polyneuropathy SPEP, INCLUDES QUANTITATION OF MONOCLONAL SPIKE Routine 01/17/2021 10:21 EDT Other polyneuropathy VITAMIN B12 Routine 01/17/2021 10:21 EDT Other polyneuropathy MISCELLANEOUS TEST, PERALES Routine 01/17/2021 10:15 EDT Other polyneuropathy documented in this encounter Results * VITAMIN B1, THIAMINE (01/17/2021 10:21 EDT) Pathologist [facility] VITAMIN B1 (THIAMINE) [place] [facility] 112 70 - 180 nmol/L 01/25/2021 9:52 EST [facility] Comment: ADDITIONAL INFORMATION This test was developed and its performance characteristics determined by [facility] in a manner consistent with CLIA requirements. This test has not been cleared or approved by the U.S. Food and Drug Administration. Test Performed by: [facility] - [address] [address] Reordering Clerk: Fabio Martin M.D. Ph.D.; CLIA# [id number] 01/17/2021 10:2 1 EDT 01/17/2021 10:21 EDT Narrative [facility] - 01/25/2021 9:52 EST Does PT Have a Latex Allergy? UNKNOWN ORDERED TESTS: PERALES ID: PLP, PER ROBERTH GREEN TOP TUBE PROTECT FROM LIGHT SEND ALEK TO LAB. NO VITS ??FOR 24 HRS AND FASTING 12-14HR Dwight Samano MD CHEMISTRY & BLOOD GAS ORDERABLES [facility] [address] [place] [address] * SPEP, INCLUDES QUANTITATION OF MONOCLONAL SPIKE (01/17/2021 10:21 EDT) Alpha-1 % 4.6 2.9 - 4.9 % 01/25/2021 9:52 [facility] Alpha-2 % 11.6 7.1 - 11.8 % 01/25/2021 9:52 [facility] Albumin % 61.2 55.8 - 66.1 % 01/25/2021 9:52 [facility] Beta % 9.8 8.4 - 13.1 % 01/25/2021 9:52 [facility] COMMENTS - [facility] [place] SEE BELOW () 9:52 [facility] Comment: RESULT: No apparent monoclonal protein seen on serum electrophoresis See scanned/supplementary report. Test performed or referred by The [address] [address] Gamma % 12.8 11.1 - 18.8 % 01/25/2021 9:52 [facility] Protein, 24H Urine 7.5 6.3 - 8.2 g/dL 01/25/2021 9:52 [facility] 01/17/2021 10:2 1 EDT 01/17/2021 10:21 EDT [facility] - 01/25/2021 9:52 EST Does PT Have a Latex Allergy? UNKNOWN ORDERED TESTS: PERALES ID: PLP, PER ROBERTH GREEN TOP TUBE PROTECT FROM LIGHT SEND ALEK TO LAB. NO VITS ??FOR 24 HRS AND FASTING 12-14HR Dwight Samano MD CHEMISTRY & BLOOD GAS ORDERABLES Performing Organization Address [facility]/ZIP Co de Phone Number [facility] [address] [place] [address] * VITAMIN B12 (01/17/2021 10:21 EDT) [facility] VITAMIN B12 - [facility] 615 239 - 931 pg/mL 01/17/2021 11:58 EDT [facility] Comment: The results of this assay can be falsely elevated due to the consumption of Biotin. 01/17/2021 10:2 1 EDT 01/17/2021 10:21 EDT Narrative [facility] - 01/17/2021 11:58 EDT Does PT Have a Latex Allergy? UNKNOWN Dwight Samano MD CHEMISTRY & BLOOD GAS ORDERABLES Performing Organization Address [facility] Co de Phone Number [facility] [address] [place] [address] * (ABNORMAL) MISCELLANEOUS TEST, DIAZ (01/17/2021 10:15 EDT) [facility] MISCELLANEOUS TEST [facility] SEE BELOW(A) () 01/22/2021 15:46 EST [facility] Comment: Test ? Result ??Flag ??Unit ?? RefValue Pyridoxal 5-Phosphate (PLP) ?4 ?L ?mcg/L ??5-50 ??, P ADDITIONAL INFORMATION This test was developed and its performance characteristics determined by [facility] in a manner consistent with CLIA requirements. This test has not been cleared or approved by the U.S. Food and Drug Administration. Test Performed by: [facility] [address] [place] [address] Reordering Clerk: Fabio Martin M.D. Ph.D.; CLIA# [id number] 01/17/2021 10:1 5 EDT 01/17/2021 10:47 EDT Dwight Samano MD CHEMISTRY & BLOOD GAS ORDERABLES [facility] [address] [place] [address] documented in this encounter Visit Diagnoses Diagnosis Other polyneuropathy- Primary documented in this encounter Care Teams Sail Cutter Relationship Specialty Start Date End Date Elizabeth Dsouza MD [address] [place] [id number] PCP - General 02/13/12 documented as of this encounter
--- OUTSIDE RECORDS SUMMARY | 2023-12-22 15:09 | XMS_ITS | Encounter Summary ---
Author Organization [facility] Address [address] [place] [address] Care Team Providers Care Confectionery Cooker Name Role Phone Elizabeth Dsouza MD Primary Care Provider [phone] Reason for Referral * Test (Routine/Next Available) - Authorization Not Required Specialty Diagnoses / Procedures [facility] Referred To Contact Diagnoses Lung nodule Procedures PULMONARY FUNCTION TESTING Juliocesar Limon MD Referral ID Status Reason Start Date Expiration Date Visits Requested Visits Authorized [id number] Authorization Not Required 07/15/2022 1 1 Reason for Visit * Reason Comments New Patient Visit [facility] Encounter Details Date Type Department Care Team (Late st Contact Info) Description 07/15/2022 16:00 EDT Office Visit [facility] Pulmonology & Critical Care - [facility] [address], [place] [id number] Amilcar Damian MD MPH [address] [facility] [place] [address] Lung nodule (Primary Dx) Social [...] go over this. Call Audrey with questions [phone] documented in this encounter Progress Notes * Audrey Mix RN - 07/15/2022 1600 EDT Interventional Pulmonary Pre-Op Nursing Note Procedure Date: TBD Provider: Dr. Damian Time of procedure finalized on: 4 days prior to procedure. There is a chance this could change and in that case patient will be notified [facility] Bronchoscopy procedure day was discussed with Melodie Hodge - A laborer driver is required (this does not include [...] finalize. These results will show up on [employer] at the time they are released to [...] Limon M.D. Department of Pulmonary/Critical Care Medicine Tag Marker, F-2 Attestation statement: Supervising Physician Amilcar Damian [...] with Chantix. Using e-cigarettes. Lives alone in [place], [place]. Maintains home. Denies functional limitations; although notes exertion is limited by right-sided sciatic pain. Denies chest pain or pressure. No palpitations. No exertional dyspnea, although minimal ambulation attributed to lower extremity discomfort. Not regularly followed by cardiology; underwent PCI in 1995 for NSTEMI. No further cardiac events. 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 No occupational exposures to chemicals or fumes. Social History: Lives alone in [place], [place]. Multiple pets within the home; including cats, dogs, and parakeets. Denies issues with mold or mildew. Family History: No family history of lung cancer. 4 adult children are healthy. PMHx: HTN HLD CAD s/p PCI [1995] at [facility] Lower extremity pain PSHx: has [...] discussed with Dr. Damian. Juliocesar Limon MD [facility] Fellow Attestation statement: I performed or [...] Appointment [facility] CT Scan [address] [place] [address] documented as of this encounter Results * PULMONARY FUNCTION TESTING (07/26/2022 14:15 EDT) 07/26/2022 14:1 5 EDT Juliocesar Limon MD PFT ORDERABLES [facility] PFT documented in this encounter Visit Diagnoses Diagnosis Lung nodule- Primary Solitary pulmonary nodule documented in this encounter Orders Case Request Count Last Ordered Date First Orde red Date CASE REQUEST OPERATING ROOM 1 07/15/2022 documented in this encounter Care Teams Confectionery Cooker Relationship Specialty Start Date End Date Elizabeth Dsouza MD [address] [facility] [place] [address] PCP - General 02/13/12 documented as of this encounter
--- OUTSIDE RECORDS SUMMARY | 2023-12-22 15:10 | XMS_ITS | Encounter Summary ---
Author Organization [facility] Address [address] [place] [address] Care Team Providers Care Ecologist Name Role Phone Elizabeth Dsouza MD Primary Care Provider [phone] Encounter Details Date Type Department Care Team (Late st Contact Info) Description 08/18/2017 Historical Results Only [facility] Radiology Results [address] [place] [address] Elizabeth Brennan MD [address] [place] [address] Social History Tobacco Use Types [...] Description 01/26/2024 8:30 EST Appointment [facility] CT Scan [address] [place] [address] documented as of this encounter Procedures Procedure Name Priority Date/Time Associated Diagnosis Comments TROPONIN I Routine 08/18/2017 22:47 EDT HEMOGLOBIN AND HEMATOCRIT - [facility] Routine 08/18/2017 19:00 EDT TROPONIN I Routine 08/18/2017 19:00 EDT TRANSTHORACIC ECHO (TTE) COMPLETE 08/18/2017 15:20 EDT HEMOGLOBIN AND HEMATOCRIT - [facility] Routine 08/18/2017 12:55 EDT TROPONIN I Routine 08/18/2017 12:55 EDT LACTIC ACID Routine 08/18/2017 12:55 EDT PROTIME Routine 08/18/2017 12:55 EDT PROTIME Routine 08/18/2017 12:55 EDT MAGNESIUM Routine 08/18/2017 12:[address] ABDOMEN PELVIS W CONTRAST 08/18/2017 10:08 EDT XR CHEST 2 VIEWS 08/18/2017 10:0 4 EDT BACTERIAL CULTURE, URINE Routine 08/18/2017 8:59 EDT URINALYSIS/COMPLETE - CV Routine 08/18/2017 8:55 EDT BLOOD CULTURE - [facility] Routine 08/18/2017 8:39 EDT BLOOD CULTURE - [facility] Routine 08/18/2017 7:44 EDT SPEC W/O ORDERS - CV Routine 8 7:44 EDT LACTIC ACID SEPSIS [...] 0.000 - 0.034 ng/mL 08/18/2017 23:23 EDT [facility] Comment: Result called to SAMUEL HORN IN [facility] 08/18/17 2323 Result called by [...] Asencio DO CHEMISTRY & BLOOD G ORDERABLES [facility] * (ABNORMAL) TROPONIN I (08/18/2017 19:00 EDT) Troponin I (ng/mL) 1.930(HH) 0.000 - 0.034 ng/mL 08/18/2017 19:45 EDT [facility] Comment: Result called to SAMUEL HORN IN [facility] 08/18/17 1945 Result called by [...] & BLOOD G ORDERABLES Performing Organization Address [facility]/ZIP Co de Phone Number [facility] * (ABNORMAL) HEMOGLOBIN AND HEMATOCRIT - [facility] (08/18/2017 19:00 EDT) HEMATOCRIT - [facility] 34.3 34.0 - 47.0 % 08/18/2017 19:22 EDT [facility] HEMOGLOBIN - [facility] 9.9(L) 11.2 - 15.7 g/dl 08/18/2017 19:22 EDT [facility] 08/18/2017 19:0 0 EDT 08/18/2017 19:14 EDT Thi Asencio DO CHEMISTRY & BLOOD G ORDERABLES Performing Organization Address [facility] Co de Phone Number [facility] * TRANSTHORACIC ECHO (TTE) COMPLETE (08/18/2017 15:20 EDT) Anatomical Region Laterality Modality Ultrasound 08/18/2017 15:2 0 EDT Narrative 08/18/2017 15:20 EDT ?[facility] ?[address] [address] ? [id number] ? E C H O C A R D I O G R A M ? R E P O R T NAME: ,MELODIE ? : [birth year] ? LOCATION: [facility] ? TELEPHONE: [phone] ?MR#: [id number] ? *[facility]* *[facility]* [address] [place] [address] Date of study: 08/18/2017 Transthoracic Echocardiography M-mode, [...] ORDERING ? Thi Asencio REFERRING ?Thi Asencio PHARMACY GRAD INTERN ??Ladan Dunne PERFORMING ?? [facility] *PROCEDURE DATA* Procedure information: ??The patient was identified by two identifiers. This study was interpreted by [facility]. Pertinent images and digital data are archived for permanent storage and are available for subsequent review. No prior study was available for comparison. ??Study status: Routine. Transthoracic echocardiography. ??M-mode, complete 2D, complete spectral Doppler, and color Doppler. A Transthoracic Echocardiogram was ?[facility] ?[address] [place], [place] [address] ? [id number] ? E C H O C A R D I O G R A M ? R E P O R T NAME: MELODIE CLIFFORD ? : 57 ? [facility] ? TELEPHONE: [phone] ?MR#: [id number] ? performed. Scanning was performed from the parasternal, apical, subcostal, and suprasternal notch acoustic windows. Images were obtained using a [facility] IE33 1 cardiac ultrasound [...] 2.7 ?? cm ? 2.1 - 4.0 ?[facility] ?[facility] [address] [place], [place] [address] ? [id number] ? E C H O C A R D I O G R A M ? R E P O R T NAME: CLIFFORDMELODIE ? : [birth year] ? LOCATION: [facility] ? TELEPHONE: [phone] ?MR#: [id number] ? LV PW thickness, ED, PLAX ? [...] Hg ?? Right ventricle ? Value ?Reference ?[facility] ?[facility] [address] [place], [place] [address] ? [id number] ? E C H O C A R D I O G R A M ? R E P O R T NAME: CLIFFORD,MELODIE ? : [birth year] ? LOCATION: [facility] ? TELEPHONE: [phone] ?MR#: [id number] ? RV pressure, S, DP ?(H) ? 37 ?mm Hg ??<=30 Legend: (L) ??and ??(H) ??marilynn values outside specified reference range. I have personally reviewed the images and have reviewed and edited the reported findings. Electronically signed by Jemima Flynn 08/18/2017 20:55 Procedure Note Jemima Flynn MD - 01/03/2019 [facility] [address] [place] [id number] [id number] E C H O C A R D I O G R A M R E P O R T NAME: MELODIE CLIFFORD : 57LOCATION: [facility] TELEPHONE: [phone] MR#: [id number] *[facility]* *[facility]* [address] [place] [address] Date of study: 08/18/2017 Transthoracic Echocardiography M-mode, [...] PM. ORDERING Thi Asencio REFERRING Thi Asencio PHARMACY GRAD INTERN Ladan Dunne PERFORMING [facility] *PROCEDURE DATA* Procedure information: The patient was identified by two identifiers. This study was interpreted by [facility]. Pertinent images and digital data are archived for permanent storage and are available for subsequent review. No prior study was available for comparison. Study status: Routine. Transthoracic echocardiography. M-mode, complete 2D, complete spectral Doppler, and color Doppler. A Transthoracic Echocardiogram was [facility] [address] [place], [place] [address] [id number] E C H O C A R D I O G R A M R E P O R T NAME: MELODIE CLIFFORD : 57LOCATION: [facility] TELEPHONE: [phone] MR#: [id number] [facility][id number] performed. Scanning was performed from the parasternal, apical, subcostal, and suprasternal notch acoustic windows. Images were obtained using a [facility] IE33 1 cardiac ultrasound [...] ES, PLAX 2.7 cm 2.1 - 4.0 [facility] [address] [place] [address] [id number] E C H O C A R D I O G R A M R E P O R T NAME: MELODIE CLIFFORD : 56[facility] TELEPHONE: [phone] MR#: [id number] LV PW thickness, ED, PLAX 0.9 cm [...] 10 mm Hg Right ventricle Value Reference [facility] [address] [place] [id number] E C H O C A R D I O G R A M R E P O R T NAME: MELODIE CLIFFORD : 57LOCATION: [facility] TELEPHONE: [phone] MR#: [id number] RV pressure, S, DP (H) 37 mm Hg <=30 Legend: (L) and (H) marilynn values outside specified reference range. I have personally reviewed the images and have reviewed and edited the reported findings. Electronically signed by Jemima Flynn 08/18/2017 20:55 Provider Unknown CARDIAC ECHO ORDERAB LES * MAGNESIUM (08/18/2017 12:55 EDT) Pathologist [facility] [place] Magnesium 1.90 1.7 - 2.8 mg/dL 08/18/2017 13:17 EDT [facility] 08/18/2017 12:5 5 EDT 08/18/2017 13:01 EDT Thi Asencio DO CHEMISTRY & BLOOD G ORDERABLES [facility] * (ABNORMAL) TROPONIN I (08/18/2017 12:55 EDT) Troponin I (ng/mL) 1.770(HH) 0.000 - 0.034 ng/mL 08/18/2017 13:32 EDT [facility] Comment: Result called to DEVORAH MCDANIEL [facility] 08/18/17 1332 Result called by KL Interpretation [...] & BLOOD G ORDERABLES Performing Organization Address [facility]/ZIP Co de Phone Number [facility] * LACTIC ACID (08/18/2017 12:55 EDT) [facility] LACTIC ACID [facility] 1.6 <2.0 mmol/L 08/18/2017 13:17 EDT [facility] 08/18/2017 12:5 5 EDT 08/18/2017 13:01 EDT Elizabeth Brennan MD CHEMISTRY & BLOOD GA S ORDERABLES Performing Organization Address [facility]/ZIP Co de Phone Number [facility] * (ABNORMAL) PROTIME (08/18/2017 12:55 EDT) [facility] PROTHROMBIN TIME [facility] 13.6(H) 9.5 - 13.4 SECONDS 08/18/2017 13:15 EDT [facility] 08/18/2017 12:5 5 EDT 08/18/2017 13:01 EDT Thi Asencio DO HEMATOLOGY & PF4 OR DERABLES Performing Organization Address City/[facility]/ZIP Co de Phone Number [facility] * PROTIME (08/18/2017 12:55 EDT) [facility] INR [facility] 1.2 0.9 - 1.2 08/18/2017 13:15 EDT [facility] Comment: Low intensity INR: 2.0-3.0 High intensity INR: Consult Coag Dept. 08/18/2017 12:5 5 EDT 08/18/2017 13:01 EDT Thi Asencio DO HEMATOLOGY & PF4 OR DERABLES Performing Organization Address [facility] Co de Phone Number [facility] * (ABNORMAL) HEMOGLOBIN AND HEMATOCRIT - [facility] (08/18/2017 12:55 EDT) HEMATOCRIT - [facility] 36.4 34.0 - 47.0 % 08/18/2017 13:10 EDT [facility] HEMOGLOBIN - [facility] 10.5(L) 11.2 - 15.7 g/dl 08/18/2017 13:10 EDT [facility] 08/18/2017 12:5 5 EDT 08/18/2017 13:01 EDT Thi Asencio DO CHEMISTRY & BLOOD G ORDERABLES Performing Organization Address [facility] de Phone Number [facility] * CT ABDOMEN PELVIS W CONTRAST [...] By: Nelson Addison MD ?Transcribed: 08/18/2017 (1030) HIS.POWSCR ?REPORT ? EXAM: CAT SCAN/ABDOMEN PELVIS WITH [...] CC: ? Transcribed Date/Time: 08/18/2017 (1011) ? Day Guard: ? Printed Date/Time: 09/04/2018 (7964) ? PAGE 2 ? Signed Report ? [...] Addison MD CC: Transcribed Date/Time: 08/18/2017 (1011) Day Guard: Printed Date/Time: 09/04/2018 (0528) PAGE 2 Signed Report Elizabeth Catrachito Brennan MD IMG CT ORDERABLES * XR [...] CC: ? Transcribed Date/Time: 08/18/2017 (1007) ? Day Guard: ? Printed Date/Time: 09/04/2018 (6513) ? PAGE 1 ? Signed Report ? Procedure Note Amilcar Funk MD - 01/21/2019 EXAM: RADIOLOGY/CHEST (PA [...] Funk MD CC: Transcribed Date/Time: 08/18/2017 (1007) Day Guard: Printed Date/Time: 09/04/2018 (2696) PAGE 1 Signed Report Elizabeth Brennan MD IMG DIAGNOSTIC IMAGI NG ORDERABLES * BACTERIAL CULTURE, URINE (08/18/2017 8:59 EDT) Urine Culture 08/19/2017 11:35 EDT [facility] Urine Culture No growth. 08/19/2017 11:35 EDT [facility] 08/18/2017 8:59 EDT 08/18/2017 9:43 EDT Comment:VOID Elizabeth Brennan MD MICROBIOLOGY - GENER AL ORDERABLES [facility] * URINALYSIS/COMPLETE - [facility] (08/18/2017 8:55 EDT) URINE APPEARANCE - [facility] Cloudy CLEAR 08/18/2017 9:12 EDT [facility] URINE BACTERIA - [facility] MOD 08/18/2017 9:42 EDT [facility] URINE BILIRUBIN - DIPSTICK - [facility] 1+ NEGATIVE 08/18/2017 9:12 EDT [facility] Comment: Unable to confirm positive urine bilirubin. If clinical correlation is inconsistent, consider serum bilirubin. URINE BLOOD - [facility] 1+ NEG 08/18/2017 9:12 EDT [facility] URINE COLOR - [facility] Yellow YELLOW 08/18/2017 9:12 EDT [facility] URINE GLUCOSE - DIPSTICK - [facility] Negative NEGATIVE 08/18/2017 9:12 EDT [facility] URINE KETONE - [facility] Negative NEGATIVE 08/18/2017 9:12 [facility] URINE LEUK ESTERASE - [facility] 2+ NEG 08/18/2017 9:12 [facility] URINE NITRITE - DIPSTICK - [facility] Negative NEG 08/18/2017 9:12 [facility] URINE PH - [facility] 6.0 4.0 - 8.0 8 9:12 [facility] URINE PROTEIN - DIPSTICK - [facility] 1+ NEG 08/18/2017 9:12 [facility] URINE RBC - [facility] 3-6 rbc/hpf 08/19/19 18 9:42 [facility] URCULTIF+? - [facility] Culture Ordered 08/18/2017 9:42 [facility] URINE SPECIFIC GRAVITY - [facility] 1.025 1.001 - 1.035 08/18/2017 9:12 [facility] URINE SQUAMOUS CELLS - [facility] MOD NEG #/hpf 08/18/2017 9:42 [facility] URINE TRICHOMONAS - [facility] FEW 08/18/2017 9:42 [facility] URINE UROBILINOGEN - DIPSTICK - [facility] 0.2 0.2 - 1.0 08/18/2017 9:12 [facility] URINE WBC - [facility] 20-30 NEG wbc/hpf 018 9:42 [facility] 08/18/2017 8:55 EDT 08/18/2017 9:07 EDT Narrative [facility] - 08/18/2017 9:42 EDT Does PT Have a Latex Allergy? UNKNOWN Elizabeth Brennan MD CHEMISTRY & BLOOD GA S ORDERABLES [facility] * BLOOD CULTURE - [facility] (08/18/2017 8:39 EDT) BLOOD CULTURE - [facility] 08/23/2017 9:05 EDT [facility] BLOOD CULTURE - [facility] NO GROWTH AT 5 DAYS 08/23/2017 9:05 [facility] 08/18/2017 8:39 EDT 08/18/2017 8:42 EDT Comment:PERIP Narrative [facility] - 08/23/2017 9:05 EDT Does PT Have a Latex Allergy? UNKNOWN Elizabeth Brennan MD CHEMISTRY & BLOOD GA S ORDERABLES [facility] * BLOOD CULTURE - [facility] (08/18/2017 7:44 EDT) BLOOD CULTURE - [facility] 08/23/2017 9:05 EDT [facility] BLOOD CULTURE - [facility] NO GROWTH AT 5 DAYS 08/23/2017 9:05 EDT [facility] 08/18/2017 7:44 EDT 08/18/2017 8:39 EDT Comment:PERIP Narrative [facility] - 08/23/2017 9:05 EDT Does PT Have a Latex Allergy? UNKNOWN Elizabeth Brennan MD CHEMISTRY & BLOOD GA S ORDERABLES [facility] * SPEC W/O ORDERS - [facility] (08/18/2017 7:44 EDT) Pathologist [facility] [place] SPEC W/O ORDERS - [facility] SEE NOTE 08/18/2017 8:33 EDT [facility] Comment: ?Emergency Room Specimen(s) without Orders These specimens will be discarded in 8 hours: Gold, green, purple, blue, moody on ice, blood cultures x 1 08/18/2017 7:44 EDT 08/18/2017 8:32 EDT Elizabeth Brennan MD CHEMISTRY & BLOOD GA S ORDERABLES [facility] * (ABNORMAL) MAGNESIUM (08/18/2017 7:44 EDT) [facility] Magnesium 1.30(L) 1.7 - 2.8 mg/dL 08/18/2017 8:53 EDT [facility] 08/18/2017 7:44 EDT 08/18/2017 8:38 EDT [facility] - 08/18/2017 8:53 EDT Does PT Have a Latex Allergy? UNKNOWN Elizabeth Brennan MD CHEMISTRY & BLOOD GA S ORDERABLES Performing Organization Address [facility]/ZIP Co de Phone Number [facility] * LIPASE (08/18/2017 7:44 EDT) Lipase 64 <251 U/L 08/18/2017 8:5 3 EDT [facility] 08/18/2017 7:44 EDT 08/18/2017 8:38 EDT [facility] - 08/18/2017 8:53 EDT Does PT Have a Latex Allergy? UNKNOWN Elizabeth Brennan MD CHEMISTRY & BLOOD GA S ORDERABLES Performing Organization Address [facility] Co de Phone Number [facility] * (ABNORMAL) C REACTIVE PROTEIN (08/18/2017 7:44 EDT) C-Reactive Protein 68.0(H) <10.0 mg/L 08/18/2017 8:53 EDT [facility] 08/18/2017 7:44 EDT 08/18/2017 8:38 EDT [facility] - 08/18/2017 8:53 EDT Does PT Have a Latex Allergy? UNKNOWN Elizabeth Brennan MD CHEMISTRY & BLOOD GA S ORDERABLES Performing Organization Address [facility]/ZIP Co de Phone Number [facility] * (ABNORMAL) COMPREHENSIVE METABOLIC PANEL (CMP) (08/18/2017 7:44 EDT) Albumin % 4.0 3.4 - 4.9 g/dL 08/18/2017 8:53 EDT [facility] ALKALINE PHOSPHATASE - [facility] 93 38 - 126 U/L 08/18/2017 8:53 [facility] BILIRUBIN TOTAL 1.4(H) 0.2 - 1.3 mg/dL 08/18/2017 8:53 [facility] BUN - [facility] 19 10 - 26 mg/dL 08/18/2017 8:53 [facility] CALCIUM - [facility] 9.5 8.5 - 10.5 mg/dL 08/18/2017 8:53 [facility] Chloride 104 96 - 110 mmol/L 08/18/2017 8:53 [facility] CO2 Total 17(L) 22 - 32 mEq/L 08/18/2017 8:53 [facility] CREATININE 0.86 0.52 - 1.04 mg/dL 08/18/2017 8:53 [facility] eGFR >60 08/18/2017 8:53 [facility] Comment: Chronic renal impairment is defined as GFR <60 Multiply result by 1.210 for patients. eGFR calculated using the IDMS-traceable MDRD Study Equation. ??(effective 01/17/2014) Anion Gap 17 0 - 18 08/18/2017 8:53 [facility] GLUCOSE - [facility] 196(H) 70 - 100 mg/dL 08/18/2017 8:53 [facility] Potassium 4.4 3.5 - 5.0 mEq/L 08/18/2017 8:53 [facility] Sodium 138 136 - 145 mEq/L 08/18/2017 8:53 [facility] TOTAL PROTEIN - [facility] 7.0 6.2 - 8.2 gm/dL 08/18/2017 8:53 [facility] SGOT/AST - [facility] 16 14 - 36 U/L 08/18/2017 8:53 [facility] SGPT/ALT - [facility] 27 9 - 52 U/L 8 8:53 [facility] 08/18/2017 7:44 EDT 08/18/2017 8:38 [facility] - 08/18/2017 8:53 EDT Does PT Have a Latex Allergy? UNKNOWN Elizabeth Brennan MD CHEMISTRY & BLOOD GA S ORDERABLES Performing Organization Address [facility] Co de Phone Number [facility] * (ABNORMAL) LACTIC ACID SEPSIS REFLEX - [facility] (08/18/2017 7:44 EDT) Pathologist [facility] [place] LACTIC ACID - [facility] 2.8(HH) <2.0 mmol/L 08/18/2017 8:59 EDT [facility] Comment: Result called to WARD BEDOYA/ED 08/18/17 0857: Result called by KWB 08/18/2017 7:44 EDT 08/18/2017 8:39 EDT [facility] - 08/18/2017 8:59 EDT Does PT Have a Latex Allergy? UNKNOWN Elizabeth Brennan MD CHEMISTRY & BLOOD GA S ORDERABLES Performing Organization Address [facility] Co [facility] Number [facility] * (ABNORMAL) TROPONIN I (08/18/2017 7:44 EDT) [facility] Troponin I (ng/mL) 0.696(HH) 0.000 - 0.034 ng/mL 08/18/2017 9:06 EDT [facility] Comment: Result called to RAMIRO MARS [...] level. 08/18/2017 7:44 EDT 08/18/2017 8:38 EDT [facility] - 08/18/2017 9:06 EDT Does PT Have a Latex Allergy? UNKNOWN Elizabeth Brennan MD CHEMISTRY & BLOOD GA S ORDERABLES Performing Organization Address [facility]/ZIP Co de Phone Number [facility] * (ABNORMAL) COMPLETE BLOOD COUNT AND DIFFERENTIAL (08/18/2017 7:44 EDT) ABSOLUTE NEUTROPHIL COUN - [facility] 9.08(H) 1.7 - 7.0 10e3/ul 08/18/2017 9:03 [facility] BANDS - [facility] 18(H) 0 - 3 % 08/18/2017 9:03 [facility] HEMATOCRIT - [facility] 41.2 34.0 - 47.0 % 08/18/2017 8:49 [facility] HEMOGLOBIN - [facility] 12.2 11.2 - 15.7 g/dl 08/18/2017 8:49 [facility] LYMPH # - [facility] 0.71(L) 0.9 - 2.9 10e3/uL 08/18/2017 9:03 [facility] LYMPHOCYTES - [facility] 7(L) 20 - 40 % 2017 9:03 [facility] MEAN CORPUSCULAR HGB - [facility] 21.2(L) 26 - 34 pg 08/18/2017 8:49 [facility] MEAN CORPUSCULAR HGB CONC - [facility] [place] 29.6(L) 31 - 36 g/dL 08/18/2017 8:49 [facility] MEAN CELL VOLUME - [facility] [place] 71.7(L) 77 - 100 fl 08/18/2017 8:49 [facility] METAMYELOCYTE - [facility] [place] 1 0 - 1 % 08/18/2017 9:03 [facility] MONO # - [facility] [place] 0.30 0.3 - 0.9 10e3/uL 08/18/2017 9:03 [facility] MONOCYTE - [facility] [place] 3 0 - 12 % 8 9:03 [facility] PLATELET COUNT 302 150 - 400 10e3/ul 08/18/2017 8:49 [facility] NEUTROPHILS - [facility] [place] 71 40 - 80 % 2017 9:03 [facility] POLYCHROMASIA - [facility] [place] 1+ 08/18/2017 9:03 [facility] RED BLOOD COUNT - [facility] [place] 5.75(H) 3.8 - 5.2 10e6/ul 08/18/2017 8:49 [facility] RED CELL [place]RI WIDTH [place] [facility] 18.1(H) 11.8 - 15.6 % 08/18/2017 8:49 EDT [facility] WHITE BLOOD COUNT - [facility] 10.2 3.5 - 10.5 10e3/ul 08/18/2017 8:49 EDT [facility] 08/18/2017 7:44 EDT 08/18/2017 8:39 EDT Narrative [facility] - 08/18/2017 9:03 EDT Does PT Have a Latex Allergy? UNKNOWN Elizabeth Brennan MD PACKAGES & DNA PROBE ORDERABLES [facility] documented in this encounter Visit Diagnoses Not on filedocumented in this encounter Care Teams Ecologist Relationship Specialty Start Date End Date Elizabeth Dsouza MD [address] [place] [phone] PCP - General 02/13/12 documented as of this encounter
--- OUTSIDE RECORDS SUMMARY | 2023-12-22 15:10 | XMS_ITS | Encounter Summary ---
Author Organization [facility] Address [address] [place] [address] Care Team Providers Care Trip Rider Name Role Phone Elizabeth Dong MD Primary Care Provider [phone] Encounter Details Date Type Department Care Team (Late st Contact Info) Description 12/16/[address] [facility] Services - [facility] ([facility] [address] [place] [phone] Elizabeth Dong MD [address] [place] [phone] Social History Tobacco Use Types Packs/Day Years Used Date Smoking Tobacco: Never Assessed Sex and Gender Information Value Date Recorded Sex Assigned at Not on file Gender Identity Female 01/04/2021 7:40 EDT Sexual Orientation Not on file documented as of this encounter Plan of Treatment Upcoming Encounters Date Type Department Care Team (Late st Contact Info) Description 01/26/2024 8:30 EST Appointment [facility] [place] Scan [address] [place], [place] [phone] documented as of this encounter Procedures Procedure [...] when reading/interpreti ng unformatted reports. Name: ? VIKRAM CLIFFORD ? Accession #: ? [id number] ? : ? 1955 (Age: 58) ??F ?Collect Date: ? 12/16/2013 ? Location: ? [facility] ? Receive Date: ? 12/20/2013 ? Provider: ELIZABETH DONG MD Copy to: ? Final Report SPECIMEN ADEQUACY ? Satisfactory for Evaluation - transformation zone component present GENERAL CATEGORIZATION ? Epithelial Cell Abnormality INTERPRETATION ? Squamous Cell Abnormality - Low grade squamous intraepithelial lesion (LSIL). EDUCATIONAL NOTES/RECOMMENDATI ONS ? [facility] recommends following ASCCP's 2012 Updated Consensus Guidelines for the Management of Abnormal Cervical Cancer Screening Tests and Cancer Precursors (JLGTD, 2013; 17(5):S1-S27). ??Consensus guidelines are available online at www.asccp.org. Previous Gynecologic Pathology: BRIAN Treatment History: Cryotherapy: Hx for dysplasia Specimen/Source: [...] 33,35,39,45,51,52, 56,58,59,66, and 68 is detected by charge master analyst mediated amplification. High and intermediate risk HPV [...] Dong MD PATHOLOGY ORDERABLES Performing Organization Address City/State/[facility] [place] Phone Number [facility] [address] [place] [address] documented in this encounter Visit Diagnoses Not on filedocumented in this encounter Care Teams Trip Rider Relationship Specialty Start Date End Date Elizabeth Dong MD [address] [place] [phone] PCP - General 02/13/12 documented as of this encounter
--- OUTSIDE RECORDS SUMMARY | 2023-12-22 15:10 | XMS_ITS | Encounter Summary ---
Author Organization [facility] Address [address] [place] [address] Care Team Providers Care Contour Band Saw Operator Vertical Name Role Phone Elizabeth Dsouza MD Primary Care Provider [phone] Encounter Details Date Type Department Care Team (Late st Contact Info) Description 08/20/2017 Historical Results Only [facility] - Main [place] [phone] Les An MD [address] [place], [place] [phone] Social History Tobacco Use Types Packs/Day Years Used Date Smoking Tobacco: Never Assessed Sex and Gender Information Value Date Recorded Sex Assigned at Not on file Gender Identity Female 01/04/2021 7:40 EDT Sexual Orientation Not on file documented as of this encounter Plan of Treatment Upcoming Encounters Date Type Department Care Team (Late st Contact Info) Description 01/26/2024 8:30 EST Appointment [facility] CT Scan [address] [place] [address] documented as of this encounter Procedures Procedure Name Priority Date/Time Associated Diagnosis Comments COMPLETE BLOOD COUNT AND DIFFERENTIAL Routine 08/20/2017 6:30 EDT C REACTIVE PROTEIN Routine 08/20/2017 6: 30 EDT MAGNESIUM Routine 08/20/2017 6:30 EDT BASIC METABOLIC PANEL (BMP) Routine 08/20/2017 6:30 EDT documented in this encounter Results * MAGNESIUM (08/20/2017 6:30 EDT) Magnesium 1.90 1.7 - 2.8 mg/dL 08/20/2017 7:34 EDT [facility] 08/20/2017 6:30 EDT 08/20/2017 6:55 EDT [facility] - 08/20/2017 14:29 EDT AOT: 08/20/17 1348: CRP Les An MD CHEMISTRY & BLOOD GA S ORDERABLES [facility] * (ABNORMAL) C REACTIVE PROTEIN (08/20/2017 6:30 EDT) Pathologist [facility] C-Reactive Protein 372.6(H) <10.0 mg/L 08/20/2017 14:29 EDT [facility] 08/20/2017 6:30 EDT 08/20/2017 6:55 EDT [facility] - 08/20/2017 14:29 EDT AOT: 08/20/17 1348: CRP Les An MD CHEMISTRY & BLOOD GA S ORDERABLES [facility] * (ABNORMAL) BASIC METABOLIC PANEL (BMP) (08/20/2017 6:30 EDT) BUN - [facility] 23 10 - 26 mg/dL 08/20/2017 7:34 EDT [facility] CALCIUM - [facility] 8.2(L) 8.5 - 10.5 mg/dL 08/20/2017 7:34 EDT [facility] Chloride 110 96 - 110 mmol/L 08/20/2017 7:34 EDT [facility] CO2 Total 20(L) 22 - 32 mEq/L 08/20/2017 7:34 EDT [facility] CREATININE 0.92 0.52 - 1.04 mg/dL 08/20/2017 7:34 [facility] eGFR >60 08/20/2017 7:34 [facility] Comment: Chronic renal impairment is defined as GFR <60 Multiply result by 1.210 for patients. eGFR calculated using the IDMS-traceable MDRD Study Equation. ??(effective 01/17/2014) Anion Gap 8 0 - 18 08/20/2017 7:34 [facility] GLUCOSE - [facility] 119(H) 70 - 100 mg/dL 08/20/2017 7:34 [facility] Potassium 3.7 3.5 - 5.0 mEq/L 08/20/2017 7:34 [facility] Sodium 138 136 - 145 mEq/L 08/20/2017 7:34 [facility] 08/20/2017 6:30 EDT 08/20/2017 6:55 EDT Narrative [facility] - 08/20/2017 14:29 EDT AOT: 08/20/17 1348: CRP Les An MD CHEMISTRY & BLOOD GA S ORDERABLES [facility] * (ABNORMAL) COMPLETE BLOOD COUNT AND DIFFERENTIAL (08/20/2017 6:30 EDT) ABSOLUTE NEUTROPHIL COUN - [facility] 5.43 1.7 - 7.0 10e3/ul 08/20[facility]2017 [facility] - [facility] 15(H) 0 - 3 % 08/20/2017 7:54 [facility] ELLIPTOCYTES - [facility] RARE 08/20/2017 7:54 [facility] EOS # - [facility] 0.05 0.05 - 0.5 10e3/uL 08/20/2017 7:54 [facility] EOSINOPHILS - [facility] 1 0 - 5 % 2017 7:54 [facility] HEMATOCRIT - [facility] 31.2(L) 34.0 - 47.0 % 08/20/2017 7:04 [facility] HEMOGLOBIN - [facility] 9.0(L) 11.2 - 15.7 g/dl 08/20/2017 7:04 [facility] HYPOCHROMASIA - [facility] 1+ 08/20/2017 7:54 [facility] LYMPH # - [facility] 0.35(L) 0.9 - 2.9 10e3/uL 08/20/2017 7:54 [facility] LYMPHOCYTES - [facility] 6(L) 20 - 40 % 2017 7:54 [facility] MEAN CORPUSCULAR HGB - [facility] 20.6(L) 26 - 34 pg 08/20/2017 7:04 [facility] MEAN CORPUSCULAR HGB CONC - [facility] 28.8(L) 31 - 36 g/dL 08/20/2017 7:04 [facility] MEAN CELL VOLUME - [facility] 71.6(L) 77 - 100 fl 08/20/2017 7:04 [facility] METAMYELOCYTE - [facility] 1 0 - 1 % 08/20/2017 7:54 [facility] PLATELET COUNT 145(L) 150 - 400 10e3/ul 08/20/2017 7:04 [facility] NEUTROPHILS - [facility] 77 40 - 80 % 2017 7:54 [facility] RED BLOOD COUNT - [facility] 4.36 3.8 - 5.2 10e6/ul 08/20/2017 7:04 [facility] RED CELL DISTRI WIDTH - [facility] 18.4(H) 11.8 - 15.6 % 08/20/2017 7:04 [facility] WHITE BLOOD COUNT - [facility] 5.9 3.5 - 10.5 10e3/ul 08/20/2017 7:04 [facility] 08/20/2017 6:30 EDT 08/20/2017 6:55 EDT Les An MD PACKAGES & DNA PROBE ORDERABLES [facility] documented in this encounter Visit Diagnoses Not on filedocumented in this encounter Care Teams Contour Band Saw Operator Vertical Relationship Specialty Start Date End Date Elizabeth Dsouza MD [address] [place] [address] PCP - General 02/13/12 documented as of this encounter
--- OUTSIDE RECORDS SUMMARY | 2023-12-22 15:10 | XMS_ITS | Encounter Summary ---
Author Organization [facility] Address [address] [place] [address] Care Team Providers Care Inhalation Therapy Teacher Name Role Phone Elizabeth Dsouza MD Primary Care Provider [phone] Encounter Details Date Type Department Care Team (Late st Contact Info) Description 08/23/2017 Historical Results Only [facility] - Main [place] [address] [place], [place] [phone] Ashu Arce MD [address] [place], [place] [phone] Social History Tobacco Use Types Packs/Day Years Used Date Smoking Tobacco: Never Assessed Sex and Gender Information Value Date Recorded Sex Assigned at Not on file Gender Identity Female 01/04/2021 7:40 EDT Sexual Orientation Not on file documented as of this encounter Plan of Treatment Upcoming Encounters Date Type Department Care Team (Late st Contact Info) Description 01/26/2024 8:30 EST Appointment [facility] CT Scan [address] [place] [phone] documented as of this encounter Procedures Procedure Name Priority Date/Time Associated Diagnosis Comments RBC MORPHOLOGY Routine 08/23/2017 6:15 EDT BASIC METABOLIC PANEL (BMP) Routine 08/23/2017 6:15 EDT documented in this encounter Results * (ABNORMAL) BASIC METABOLIC PANEL (BMP) (08/23/2017 6:15 EDT) BUN - [facility] 17 10 - 26 mg/dL 08/23/2017 7:34 [facility] CALCIUM - [facility] 8.2(L) 8.5 - 10.5 mg/dL 08/23/2017 7:34 [facility] Chloride 109 96 - 110 mmol/L 08/23/2017 7:34 [facility] CO2 Total 23 22 - 32 mEq/L 08/23/2017 7:34 [facility] CREATININE 0.78 0.52 - 1.04 mg/dL 08/23/2017 7:34 [facility] eGFR >60 08/23/2017 7:34 [facility] Comment: Chronic renal impairment is defined as GFR <60 Multiply result by 1.210 for patients. eGFR calculated using the IDMS-traceable MDRD Study Equation. ??(effective 01/17/2014) Anion Gap 8 0 - 18 08/23/2017 7:34 [facility] GLUCOSE - [facility] 112(H) 70 - 100 mg/dL 08/23/2017 7:34 [facility] Potassium 3.5 3.5 - 5.0 mEq/L 08/23/2017 7:34 [facility] Sodium 140 136 - 145 mEq/L 08/23/2017 7:34 [facility] 08/23/2017 6:15 EDT 08/23/2017 6:55 EDT Ashu Arce MD CHEMISTRY & BLOOD GAS ORDERABLES [facility] * RBC MORPHOLOGY (08/23/2017 6:15 EDT) Pathologist [facility] HYPOCHROMASIA [facility] 2+ 08/23/2017 7:48 [facility] MICROCYTES - [facility] 2+ 018 7:48 [facility] POLYCHROMASIA - [facility] RARE 08/23/2017 7:48 [facility] SCHISTOCYTES - [facility] RARE 08/23/2017 7:48 EDT [facility] 08/23/2017 6:15 EDT 08/23/2017 6:55 EDT Ashu Arce MD HEMATOLOGY & PF4 O RDERABLES [facility] documented in this encounter Visit Diagnoses Not on filedocumented in this encounter Care Teams Inhalation Therapy Teacher Relationship Specialty Start Date End Date Elizabeth Dsouza MD [address] [place] [phone] PCP - General 02/13/12 documented as of this encounter
--- OUTSIDE RECORDS SUMMARY | 2023-12-22 15:10 | XMS_ITS | Encounter Summary ---
Author Organization [facility] Address [address] [place] [address] Care Team Providers Care Naturopathic Physician Name Role Phone Elizabeth Dsouza MD Primary Care Provider [phone] Encounter Details Date Type Department Care Team (Late st Contact Info) Description 02/26/2017 Historical Results Only [facility] - Main [place] [address] [place] [phone] Richar Alegre, DDS [address] [place] [phone] Social History Tobacco Use Types Packs/Day Years Used Date Smoking Tobacco: Never Assessed Sex and Gender Information Value Date Recorded Sex Assigned at Not on file Gender Identity Female 01/04/2021 7:40 EDT Sexual Orientation Not on file documented as of this encounter Plan of Treatment Upcoming Encounters Date Type Department Care Team (Late st Contact Info) Description 01/26/2024 8:30 EST Appointment [facility] CT Scan [address] [place] [address] documented as of this encounter Procedures Procedure Name Priority Date/Time Associated Diagnosis Comments SURGICAL PATHOLOGY Routine 02/26/2017 documented in this encounter Results * SURGICAL PATHOLOGY (02/26/2017) 02/26/2017 02/28/2017 9:1 1 EST Narrative [facility] - 03/03/2017 16:38 EST ----- ------- Name: CLIFFORD,VIKRAM ? : 57 ?Age/Sex: 63/F ?Unit#: [id number] ? Loc: LAB.OPX ? Status: REG REF ?? Reg Date: 02/26/17 ? Pt.Phone Number: ? ----- ------- Specimen: [id number] ? STATUS: SOUT ?Spec Date:02/26/17 ? Physician Copies: ?Richar Alegre DD Tissues: A ?? Oral mucosa, biopsy (LEFT LOWER JAW) ? CPT: 00405 ?? Units: ??1 ?FINAL DIAGNOSIS ? MUCOSA [...] confirmed the above diagnosis. Test Performed by [facility], [address] [place] [address] Power Builder Developer: Marina Phillip MD PHD ----- ------- Richar Alegre DDS PATHOLOGY MARC HANSEN [facility] documented in this encounter Visit Diagnoses Not on filedocumented in this encounter Care Teams Naturopathic Physician Relationship Specialty Start Date End Date Elizabeth Dsouza MD [address] [place] [address] PCP - General 02/13/12 documented as of this encounter
--- OUTSIDE RECORDS SUMMARY | 2023-12-22 15:10 | XMS_ITS | Encounter Summary ---
Author Organization [facility] Address [address] [place] [address] Care Team Providers Care Pumping Station Engineer Name Role Phone Elizabeth Dsouza MD Primary Care Provider [phone] Encounter Details Date Type Department Care Team (Late st Contact Info) Description 08/21/2017 Historical Results Only [facility] - Main [place] [phone] Les An MD [address] [place], [place] [phone] Social History Tobacco Use Types Packs/Day Years Used Date Smoking Tobacco: Never Assessed Sex and Gender Information Value Date Recorded Sex Assigned at Not on file Gender Identity Female 01/04/2021 7:40 EDT Sexual Orientation Not on file documented as of this encounter Plan of Treatment Upcoming Encounters Date Type Department Care Team (Late st Contact Info) Description 01/26/2024 8:30 EST Appointment [facility] CT Scan [address] [place] [address] documented as of this encounter Procedures Procedure Name Priority Date/Time Associated Diagnosis Comments URINE CULTURE IF POSITIVE Routine 08/21/2017 8:53 EDT [facility] Routine 08/21/2017 6:3 0 EDT C REACTIVE PROTEIN Routine 08/21/2017 6: 30 EDT MAGNESIUM Routine 08/21/2017 6:30 EDT BASIC METABOLIC PANEL (BMP) Routine 08/21/2017 6:30 EDT documented in this encounter Results * URINE CULTURE IF POSITIVE (08/21/2017 8:53 EDT) Pathologist [facility] URINE CULTURE IF UA POSITIVE - [facility] 08/22/2017 11:09 EDT [facility] URINE CULTURE IF UA POSITIVE - [facility] No growth. 08/22/2017 11:09 EDT [facility] 08/21/2017 8:53 EDT 08/21/2017 8:53 EDT Comment:VOID Choco Freeman MD MICROBIOLOGY - GENERAL ORDERABLES Performing Organization Address City/[facility]/ZIP Co de Phone Number [facility] * MAGNESIUM (08/21/2017 6:30 EDT) Pathologist [facility] Magnesium 1.90 1.7 - 2.8 mg/dL 08/21/2017 8:08 EDT [facility] 08/21/2017 6:30 EDT 08/21/2017 7:00 EDT Les An MD CHEMISTRY & BLOOD GA S ORDERABLES [facility] * (ABNORMAL) C REACTIVE PROTEIN (08/21/2017 6:30 EDT) Pathologist [facility] C-Reactive Protein 347.1(H) <10.0 mg/L 08/21/2017 8:37 EDT [facility] 08/21/2017 6:30 EDT 08/21/2017 7:00 EDT Les An MD CHEMISTRY & BLOOD GA S ORDERABLES [facility] * (ABNORMAL) BASIC METABOLIC PANEL (BMP) (08/21/2017 6:30 EDT) Pathologist [facility] BUN [facility] 24 10 - 26 mg/dL 08/21/2017 8:08 [facility] CALCIUM - [facility] 8.4(L) 8.5 - 10.5 mg/dL 08/21/2017 8:08 [facility] Chloride 108 96 - 110 mmol/L 08/21/2017 8:08 [facility] CO2 Total 23 22 - 32 mEq/L 08/21/2017 8:08 [facility] CREATININE 0.97 0.52 - 1.04 mg/dL 08/21/2017 8:08 [facility] eGFR 58 08/21/2017 8:06 [facility] Comment: Stage 3: Moderate renal impairment is defined as GFR 30-59 Multiply result by 1.210 for patients. eGFR calculated using the IDMS-traceable MDRD Study Equation. ??(effective 01/17/2014) Anion Gap 9 0 - 18 08/21/2017 8:06 [facility] GLUCOSE - [facility] 105(H) 70 - 100 mg/dL 08/21/2017 8:08 [facility] Potassium 3.8 3.5 - 5.0 mEq/L 08/21/2017 8:08 [facility] Sodium 140 136 - 145 mEq/L 08/21/2017 8:08 [facility] 08/21/2017 6:30 EDT 08/21/2017 7:00 EDT Les An MD CHEMISTRY & BLOOD GA S ORDERABLES [facility] * [facility] (08/21/2017 6:30 EDT) [facility] 1+ 08/21/2017 7:45 EDT [facility] 08/21/2017 6:30 EDT 08/21/2017 7:00 EDT Les An MD CHEMISTRY & BLOOD GA S ORDERABLES [facility] documented in this encounter Visit Diagnoses Not on filedocumented in this encounter Care Teams Pumping Station Engineer Relationship Specialty Start Date End Date Elizabeth Dsouza MD [address] [place] [phone] PCP - General 02/13/12 documented as of this encounter
--- OUTSIDE RECORDS SUMMARY | 2023-12-22 15:10 | XMS_ITS | Encounter Summary ---
Author Organization [facility] Address [address] [place] [address] Care Team Providers Care Aircraft Loadmaster Superintendent Name Role Phone Elizabeth Dsouza MD Primary Care Provider [phone] Encounter Details Date Type Department Care Team (Latest Contact Info) Description 12/16/2013 11:47 EDT - 12/16/2013 23:59 EDT Hospital Encounter [facility] - [address] [address] Unknown, Provider, Discharge Disposition: Home or Self [...] or Self Snf documented in this encounter Plan of Treatment Upcoming Encounters Date Type Department Care Team (Late st Contact Info) Description 01/26/2024 8:30 EST Appointment [facility] CT Scan [address] [place], [place] [phone] documented as of this encounter Visit Diagnoses Not on filedocumented in this encounter Care Teams Aircraft Loadmaster Superintendent Relationship Specialty Start Date End Date Elizabeth Dsouza MD [address] [place] [phone] PCP - General 02/13/12 documented as of this encounter
--- OUTSIDE RECORDS SUMMARY | 2023-12-22 15:10 | XMS_ITS ---
Author Organization Unknown Address [address] [place] [phone] Phone Care Team Providers Care Clerical Aide Teacher Name Role Phone APOORVA Blanton MD Attending [...] em Smoking History Current every day smoker [id number] SNOMED CT Sex Female Assessment You had [...] Date Status Code Code System NIDDM active 98914009 SNOMED-CT CAD active 12963097 SNOMED-CT MYOCARDIAL INFARCT active 74767262 S NOMED-CT GERD active 114568920 SNOMED-CT DEPRESSION active 00068795 SNOMED-CT HIGH CHOLESTEROL 05/01/2023 resolved 48998185 SN OMED-CT STENTED ARTERY 05/01/2023 resolved 909564209 SNOM ED-CT COPD 05/01/2023 resolved 28508272 SNOMED-CT Allergies and Adverse Reactions Allergy Substance Reaction Severity Start Date Concern Status Code Code Syste m MORPHINE Vomiting (SNOMED-CT: 275826974) Moderate Active 7052 RxNorm LATEX Active 3937940 RxNorm BAND-AID BRAND ADHESIVE BANDAGES Moderate Active 4156219 RxNorm Plan of Treatment MRI L SPINE [...]
--- OUTSIDE RECORDS SUMMARY | 2023-12-22 15:10 | XMS_ITS | Encounter Summary ---
Author Organization [facility] Address [address] [place] [address] Care Team Providers Care Attic Blower Name Role Phone Elizabeth Dsouza MD Primary Care Provider [phone] Encounter Details Date Type Department Care Team (Late st Contact Info) Description 08/21/2017 Historical Results Only [facility] Lab - Main [place] [phone] Les An MD [address] [place], [place] [phone] Social History Tobacco Use Types Packs/Day Years Used Date Smoking Tobacco: Never Assessed Sex and Gender Information Value Date Recorded Sex Assigned at Not on file Gender Identity Female 01/04/2021 7:40 EDT Sexual Orientation Not on file documented as of this encounter Plan of Treatment Upcoming Encounters Date Type Department Care Team (Late st Contact Info) Description 01/26/2024 8:30 EST Appointment [facility] CT Scan [address] [place] [phone] documented as of this encounter Procedures Procedure Name Priority Date/Time Associated Diagnosis Comments HYPOCHROMASIA - [facility] Routine 08/21/2017 6:30 EDT documented in this encounter Results * HYPOCHROMASIA [facility] (08/21/2017 6:30 EDT) [facility] 1+ 08/21/2017 7:45 EDT [facility] 08/21/2017 6:30 EDT 08/21/2017 7:00 EDT Les An MD CHEMISTRY & BLOOD GA S ORDERABLES [facility] documented in this encounter Visit Diagnoses Not on filedocumented in this encounter Care Teams Attic Blower Relationship Specialty Start Date End Date Elizabeth Dsouza MD [address] [place] [phone] PCP - General 02/13/12 documented as of this encounter
--- OUTSIDE RECORDS SUMMARY | 2023-12-22 15:10 | XMS_ITS | Encounter Summary ---
Author Organization [facility] Address [address] [place] [address] Care Team Providers Care Tow Truck Dispatcher Name Role Phone Elizabeth Dsouza MD Primary Care Provider [phone] Encounter Details Date Type Department Care Team (Late st Contact Info) Description 08/22/2017 Historical Results Only [facility] Radiology Results [address] [id number] Belkis Valdez MD [address] [place] [address] Social History Tobacco Use Types Packs/Day Years Used Date Smoking Tobacco: Never Assessed Sex and Gender Information Value Date Recorded Sex Assigned at Not on file Gender Identity Female 01/04/2021 7:40 EDT Sexual Orientation Not on file documented as of this encounter Plan of Treatment Upcoming Encounters Date Type Department Care Team (Late st Contact Info) Description 01/26/2024 8:30 EST Appointment [facility] Scan [address] [place] [address] documented as of this encounter Procedures Procedure [...] EDT ? [facility] ?[facility] ?[address] [address] ? [id number] ?C A R D I A C ?S T R E S S ?T E S T ?R E P O R T NAME: VIKRAM CLIFFORD ? : 57 TELEPHONE: [phone] ? MR#: [id number] ? *[facility]* *[facility] [place] [facility]* [address] [place] [address] Myocardial Perfusion Imaging - SPECT Regadenosteresa Date of study: ??08/22/2017 *PATIENT PRESENTATION* Height: [...] abnormality. Indication: ?? NSTEMI. History: ??ADMITTED TO [facility] 08/18/17 WITH LEFT SIDED ABD. PAIN. DIAGNOSED WITH SEVERE SEPSIS FROM ACUTE DIVERTICULITIS WITH MICROPERFORATION. TROPS PEAKED AT 1.9, ECG WITH SLIGHT ST DEPRESSION IN LATERAL LEADS. PATIENT SMOKES 1 1/2 PPD OF CIGARETTES. 08/18/17- ECHO- LVEF 60-65%, NO WMA. 1996- STENTS X 2. ??Risk factors: ??Current tobacco use. Obesity. MEDS: SEE E-CLINICAL. Imaging Technique: Protocol: ??Regadenoson. Acquisition: ?? Gated SPECT; 1 day - rest/stress. ?The patient was ? [facility] ?[facility] ?[address] [address] ? [id number] ?C A R D I A C ?S T R E S S ?T E S T ?R E P O R T NAME: VIKRAM CLIFFORD ? : 57 TELEPHONE: [phone] ? MR#: [id number] ? imaged in the supine position. Attenuation [...] peak heart rate and blood pressure was 75073yw Hg/min. Stress ECG: ??RESTING LEXISCAN STUDY NO [...] left ventricular regional motion abnormality. Study data: ??Richar Walls MD supervised and was readily available during the procedure. This study was interpreted by [facility]. ??Study status: ??Routine. ??Consent: ??The risks, benefits, and alternatives to the procedure were explained to the patient and informed consent was ? [facility] ?[facility] ?[facility] [address], [place] [address] ? [id number] ?C A R D I A C ?S T R E S S ?T E S T ?R E P O R T NAME: VIKRAM CLIFFORD ? : 57 TELEPHONE: [phone] ? MR#: [id number] ? obtained. ??Procedure: ??Initial setup. A baseline [...] Study time: 10:00 AM. Electronically signed by Richar Walls MD 08/22/2017 13:27 Procedure Note Richar Walls - 01/03/2019 [facility] [address] [place], [place] [address] [id number] C A R D I A C S T R E S S T E S T R E P O R T NAME: KERRY CLIFFORD: 57 TELEPHONE: [phone] MR#: [id number] [id number] *[facility]* *[facility] [place] [facility]* [address] [place] [address] Myocardial Perfusion Imaging - SPECT Regadenosteresa Date of study: 08/22/2017 *PATIENT PRESENTATION* Height: [...] motion abnormality. Indication: NSTEMI. History: ADMITTED TO [facility] 08/18/17 WITH LEFT SIDED ABD. PAIN. DIAGNOSED WITH SEVERE SEPSIS FROM ACUTE DIVERTICULITIS WITH MICROPERFORATION. TROPS PEAKED AT 1.9, ECG WITH SLIGHT ST DEPRESSION IN LATERAL LEADS. PATIENT SMOKES 1 1/2 PPD OF CIGARETTES. 08/18/17- ECHO- LVEF 60-65%, NO WMA. 1996- STENTS X 2. Risk factors: Current tobacco use. Obesity. MEDS: SEE E-CLINICAL. Imaging Technique: Protocol: Regadenoson. Acquisition: Gated SPECT; 1 day - rest/stress. The patient was [facility] [address] [place] [address] [id number] C A R D I A C S T R E S S T E S T R E P O R T NAME: MEERA CLIFFORDB: 57 TELEPHONE: [phone] MR#: [id number] imaged in the supine position. Attenuation correction used. Isotope administration: - Rest. Tc[99m]-sestamibi. Injection to stress time: 00:45. - Stress. Tc[99m]-sestamibi. 1-2 min before end of exercise Baseline ECG: NSR- 77 BPM. Stress protocol: +--------+--+ + + !Stage !HR!BP (mmHg) !Comments ! +--------+--+ + + !Baseline!77!147/59 (88)! ! +--------+--+ + + !1 min !98! !Inject Regramonoson.! +--------+--+ + + !2 min !90!129/53 (78)! [...] peak heart rate and blood pressure was 11065rz Hg/min. Stress ECG: RESTING LEXISCAN STUDY NO [...] left ventricular regional motion abnormality. Study data: Richar Walls MD supervised and was readily available during the procedure. This study was interpreted by [facility]. Study status: Routine. Consent: The risks, benefits, and alternatives to the procedure were explained to the patient and informed consent was [facility] [address] [place], [place] [address] [id number] C A R D I A C S T R E S S T E S T R E P O R T NAME: KERRY CLIFFORD: 57 TELEPHONE: [phone] MR#: [id number] [id number] obtained. Procedure: Initial setup. A baseline ECG [...] Study time: 10:00 AM. Electronically signed by Richar Walls MD 08/22/2017 13:27 Provider Unknown CARDIAC NM ORDERABLE S * NM CARD SPECT NUCLEAR STRESS (08/22/2017 9:16 EDT) Anatomical Region Laterality Modality Chest Nuclear Stress 08/22/2017 9:16 EDT Narrative 08/25/2017 16:10 EDT ? EXAM: NUCLEAR MEDICINE/NUCLEAR STRESS MAMADOU EX. D/ (0916) ? CLINICAL INFORMATION: ? NSTEMI ? *[facility]* ? *[facility] [place] [facility]* ? [address] ? [place] [address] ? Myocardial Perfusion Imaging - SPECT ? [...] Indication: ?? NSTEMI. ? History: ??ADMITTED TO [facility] 08/18/17 WITH LEFT SIDED ABD. PAIN. DIAGNOSED [...] heart rate and ? blood pressure was 47727wh Hg/min. ? Stress ECG: ??RESTING LEXISCAN STUDY [...] regional ? motion abnormality. ? Study data: ??Richar Walls MD supervised and was readily available ? during the procedure. This study was interpreted by [facility] [place] [facility]. ? Study status: ??Routine. ? [...] 10:00 AM. ? Electronically signed by ? Richar Walls MD ? 08/22/2017 13:27 ?Reported By: RIHCAR WALLS M.D. ? CC: ? Transcribed Date/Time: 08/25/2017 (1610) ? Combination Machine Tender: JONATHAN ? Printed Date/Time: 09/04/2018 (5969) ? PAGE 3 ? Signed Report ? Procedure Note Richar Walls G - 01/21/2019 EXAM: NUCLEAR MEDICINE/NUCLEAR STRESS MAMADOU EX. D/ (0916) CLINICAL INFORMATION: NSTEMI *[facility]* *[facility] [place] [facility]* [address] [place] [address] Myocardial Perfusion Imaging - SPECT Regadenoson Date [...] motion abnormality. Indication: NSTEMI. History: ADMITTED TO [facility] 08/18/17 WITH LEFT SIDED ABD. PAIN.DIAGNOSED WITH [...] the peak heart rateand blood pressure was 85953gc Hg/min. Stress ECG: RESTING LEXISCAN STUDY NO [...] left ventricular regional motion abnormality. Study data: Richar Walls MD supervised and was readily available during the procedure. This study was interpreted by [facility]. Study status: Routine. Consent: The risks, [...] Study time: 10:00 AM. Electronically signed by Richar Walls MD 08/22/2017 13:27 Reported By: RICHAR WALLS M.D. CC: Transcribed Date/Time: 08/25/2017 (1610) Combination Machine Tender: JONATHAN Printed Date/Time: 09/04/2018 (3313) PAGE 3 Signed Report Belkis Valdez MD CARDIAC NM ORDERA BLES * MAGNESIUM (08/22/2017 6:30 EDT) [facility] Magnesium 1.70 1.7 - 2.8 mg/dL 08/22/2017 7:32 [facility] 08/22/2017 6:30 EDT 08/22/2017 6:52 EDT Les An MD CHEMISTRY & BLOOD GA S ORDERABLES [facility] * (ABNORMAL) BASIC METABOLIC PANEL (BMP) (08/22/2017 6:30 EDT) Pathologist [facility] BUN - [facility] 19 10 - 26 mg/dL 08/22/2017 7:32 [facility] CALCIUM - [facility] 8.1(L) 8.5 - 10.5 mg/dL 08/22/2017 7:32 [facility] Chloride 108 96 - 110 mmol/L 08/22/2017 7:32 [facility] CO2 Total 22 22 - 32 mEq/L 08/22/2017 7:32 [facility] CREATININE 0.86 0.52 - 1.04 mg/dL 08/22/2017 7:32 [facility] eGFR >60 08/22/2017 7:32 [facility] Comment: Chronic renal impairment is defined as GFR <60 Multiply result by 1.210 for patients. eGFR calculated using the IDMS-traceable MDRD Study Equation. ??(effective 01/17/2014) Anion Gap 8 0 - 18 08/22/2017 7:32 [facility] GLUCOSE - [facility] 96 70 - 100 mg/dL 08/22/2017 7:32 [facility] Potassium 3.3(L) 3.5 - 5.0 mEq/L 08/22/2017 7:32 [facility] Sodium 138 136 - 145 mEq/L 08/22/2017 7:32 EDT [facility] 08/22/2017 6:30 EDT 08/22/2017 6:52 EDT Les An MD CHEMISTRY & BLOOD GA S ORDERABLES [facility] * (ABNORMAL) COMPLETE BLOOD COUNT AND DIFFERENTIAL (08/22/2017 6:30 EDT) ABSOLUTE NEUTROPHIL COUN - [facility] 5.58 1.7 - 7.0 10e3/ul 08/22/2017 7:47 [facility] BASOPHILS - [facility] 0.06 0.0 - 0.3 10e3/uL 08/22/2017 7:47 [facility] BANDS - [facility] 2 0 - 3 % 08/22/2017 7:47 [facility] BASOPHIL - [facility] 1 0 - 2 % 8 7:47 [facility] EOS # - [facility] 0.06 0.05 - 0.5 10e3/uL 08/22/2017 7:47 [facility] EOSINOPHILS - [facility] 1 0 - 5 % 2017 7:47 [facility] HEMATOCRIT - [facility] 30.8(L) 34.0 - 47.0 % 08/22/2017 7:11 [facility] HEMOGLOBIN - [facility] 9.0(L) 11.2 - 15.7 g/dl 08/22/2017 7:11 [facility] HYPOCHROMASIA - CV 1+ 08/22/2017 7:47 [facility] LYMPH # - [facility] 0.47(L) 0.9 - 2.9 10e3/uL 08/22/2017 7:47 [facility] LYMPHOCYTES - CV 7(L) 20 - 40 % 2017 7:47 [facility] MEAN CORPUSCULAR HGB - CV 20.7(L) 26 - 34 pg 08/22/2017 7:11 [facility] MEAN CORPUSCULAR HGB CONC - [facility] 29.2(L) 31 - 36 g/dL 08/22/2017 7:11 [facility] MEAN CELL VOLUME - [facility] 71.0(L) 77 - 100 fl 08/22/2017 7:11 [facility] MONO # - [facility] 0.61 0.3 - 0.9 10e3/uL 08/22/2017 7:47 [facility] MONOCYTE - [facility] 9 0 - 12 % 8 7:47 [facility] PLATELET COUNT 178 150 - 400 10e3/ul 08/22/2017 7:11 [facility] NEUTROPHILS - [facility] 80 40 - 80 % 2017 7:47 [facility] RED BLOOD COUNT - [facility] 4.34 3.8 - 5.2 10e6/ul 08/22/2017 7:11 [facility] RED CELL DISTRI WIDTH - [facility] 18.4(H) 11.8 - 15.6 % 08/22/2017 7:11 [facility] WHITE BLOOD COUNT - [facility] 6.8 3.5 - 10.5 10e3/ul 08/22/2017 7:11 [facility] 08/22/2017 6:30 EDT 08/22/2017 6:52 EDT Les An MD PACKAGES & DNA PROBE ORDERABLES [facility] documented in this encounter Visit Diagnoses Not on filedocumented in this encounter Care Teams Tow Truck Dispatcher Relationship Specialty Start Date End Date Elizabeth Dsouza MD [address] [place] [address] PCP - General 02/13/12 documented as of this encounter
--- OUTSIDE RECORDS SUMMARY | 2023-12-22 15:10 | XMS_ITS | Encounter Summary ---
Author Organization [facility] Address [address] [place] [address] Care Team Providers Care Pediatric Neuropsychologist Name Role Phone Unknown, Provider Primary Care Provider [phone] Encounter Details Date Type Department Care Team (Late st Contact Info) Description 02/11/2012 Results Only [facility] Laboratory Services - [facility] ([facility] [address] [place] [id number] Elizabeth Dong MD [address] [place] [phone] Social History Tobacco Use Types Packs/Day Years Used Date Smoking Tobacco: Never Assessed Sex and Gender Information Value Date Recorded Sex Assigned at Not on file Gender Identity Female 01/04/2021 7:40 EDT Sexual Orientation Not on file documented as of this encounter Plan of Treatment Upcoming Encounters Date Type Department Care Team (Late st Contact Info) Description 01/26/2024 8:30 EST Appointment [facility] CT Scan [address] [place], [place] [address] documented as of this encounter Procedures Procedure [...] ? VIKRAM CLIFFORD ? Accession #: ? [id number] ? : ? 1955 (Age: 56) ??F [...] There is no evidence of malignancy. ??(Dr. Aiken)/[facility] Microscopic Description: ? The stratum corneum is thickened by orthohyperkeratosis with foci of parakeratosis and scale crust. ??The epidermis shows marked irregular hyperplasia with elongate and thickened rete ridges. ??The keratinocytes show mild reactive changes with an accentuated granular layer. ??The dermal papillae are widened by thick bundles of collagen oriented in a vertical array. There is mild chronic inflammation. ??(Dr. Aiken)/[facility] Document reviewed and electronically signed by: ISAAC [...] 42 EST Elizabeth Dong MD PATHOLOGY ORDERABLES Performing Organization Address City/State/[facility] Co de Phone Number [facility] [address] [place] [address] documented in this encounter Visit Diagnoses Not on filedocumented in this encounter Care Teams Pediatric Neuropsychologist Relationship Specialty Start Date End Date Unknown, Provider, PCP - General 02/12/12 02/12/12 documented as of this encounter
--- OUTSIDE RECORDS SUMMARY | 2023-12-22 15:10 | XMS_ITS | Encounter Summary ---
Author Organization [facility] Address [address] [place] [address] Care Team Providers Care Regional Refrigerated Cdl Truck Driver Name Role Phone Elizabeth Dsouza MD Primary Care Provider [phone] Encounter Details Date Type Department Care Team (Late st Contact Info) Description 08/23/2017 Historical Results Only [facility] - Main [place] [address] [place], [place] [phone] Ashu Arce MD [address] [place], [place] [phone] Social History Tobacco Use Types Packs/Day Years [...] Appointment [facility] CT Scan [address] [phone] documented as of this encounter Procedures Procedure Name Priority Date/Time Associated Diagnosis Comments COMPLETE BLOOD COUNT WITH DIFFERENTIAL (AUTO) Routine 08/23/2017 6:15 EDT documented in this encounter Results * (ABNORMAL) COMPLETE BLOOD COUNT WITH DIFFERENTIAL (AUTO) (08/23/2017 6:15 EDT) ABSOLUTE NEUTROPHIL [facility] 5.91 1.7 - 7.0 10e3/ul 08/23/2017 7:32 [facility] BASO # - [facility] 0.03 0.0 - 0.3 10e3/uL 08/23/2017 7:32 [facility] BASO % - [facility] 0 0 - 2 % 08/23/2017 7:32 [facility] EOS # - [facility] 0.13 0.05 - 0.5 10e3/uL 08/23/2017 7:32 [facility] EOS % - [facility] 2 0 - 5 % 08/23/2017 7:32 [facility] GRAN % - [facility] 75 40 - 80 % 08/23/2017 7:32 [facility] HEMATOCRIT - [facility] 32.0(L) 34.0 - 47.0 % 08/23/2017 7:32 [facility] HEMOGLOBIN - [facility] 9.2(L) 11.2 - 15.7 g/dl 08/23/2017 7:32 [facility] IG# - [facility] 0.05 0 - 0.07 e3/uL 08/23/2017 7:32 [facility] IG% - [facility] 0.6 0 - 0.9 % 08/23/2017 7:32 [facility] LYMPH # - [facility] 0.98 0.9 - 2.9 e3/uL 08/23/2017 7:32 [facility] LYMPH% - [facility] 13(L) 20 - 40 % 08/23/2017 7:32 [facility] MEAN CORPUSCULAR HGB - [facility] 20.5(L) 26 - 34 pg 08/23/2017 7:32 [facility] MEAN CORPUSCULAR HGB CONC - [facility] 28.8(L) 31 - 36 g/dL 08/23/2017 7:32 [facility] MEAN CELL VOLUME - [facility] 71.3(L) 77 - 100 fl 08/23/2017 7:32 [facility] MONO # - [facility] 0.77 0.3 - 0.9 10e3/uL 08/23/2017 7:32 EDT [facility] MONO% - [facility] 10 0 - 12 % 08/23/2017 7:32 [facility] PLATELET COUNT 189 150 - 400 10e3/ul 08/23/2017 7:32 EDT [facility] RED BLOOD COUNT - [facility] 4.49 3.8 - 5.2 10e6/ul 08/23/2017 7:32 [facility] RED CELL DISTRI WIDTH - [facility] 18.5(H) 11.8 - 15.6 % 08/23/2017 7:32 EDT [facility] WHITE BLOOD COUNT - [facility] 7.9 3.5 - 10.5 10e3/ul 08/23/2017 7:32 [facility] 08/23/2017 6:15 EDT 08/23/2017 6:55 EDT Ashu Arce MD HEMATOLOGY & PF4 O RDERABLES [facility] documented in this encounter Visit Diagnoses Not on filedocumented in this encounter Care Teams Regional Refrigerated Cdl Truck Driver Relationship Specialty Start Date End Date Elizabeth Dsouza MD [address] [place] [address] PCP - General 02/13/12 documented as of this encounter
--- OUTSIDE RECORDS SUMMARY | 2023-12-22 15:10 | XMS_ITS | Encounter Summary ---
Author Organization [facility] Address [address] [place] [address] Care Team Providers Care Rn Sexual Assault Name Role Phone Elizabeth Dsouza MD Primary Care Provider [phone] Encounter Details Date Type Department Care Team (Late st Contact Info) Description 08/24/2017 Historical Results Only [facility] - Main [place] [address] [place], [place] [address] Unknown, Provider, Social History Tobacco Use Types Packs/Day Years Used Date Smoking Tobacco: Never Assessed Sex and Gender Information Value Date Recorded Sex Assigned at Not on file Gender Identity Female 01/04/2021 7:40 EDT Sexual Orientation Not on file documented as of this encounter Plan of Treatment Upcoming Encounters Date Type Department Care Team (Late st Contact Info) Description 01/26/2024 8:30 EST Appointment [facility] CT Scan [address] [place], [place] [address] documented as of this encounter Procedures Procedure Name Priority Date/Time Associated Diagnosis Comments CREATININE Routine 08/24/2017 6:00 EDT documented in this encounter Results * CREATININE (08/24/2017 6:00 EDT) CREATININE 0.70 0.52 - 1.04 mg/dL 08/24/2017 7:42 EDT [facility] eGFR >60 08/24/2017 7:42 EDT [facility] Comment: Chronic renal impairment is defined as GFR <60 Multiply result by 1.210 for patients. eGFR calculated using the IDMS-traceable MDRD Study Equation. ??(effective 01/17/2014) 08/24/2017 6:00 EDT 08/24/2017 7:07 EDT Narrative [facility] - 08/24/2017 7:42 EDT Does PT Have a Latex Allergy? UNKNOWN Provider Unknown MD CHEMISTRY & BLOOD GA S ORDERABLES [facility] documented in this encounter Visit Diagnoses Not on filedocumented in this encounter Care Teams Rn Sexual Assault Relationship Specialty Start Date End Date Elizabeth Dsouza MD [address] [place] [address] PCP - General 02/13/12 documented as of this encounter
--- OUTSIDE RECORDS SUMMARY | 2023-12-22 15:10 | XMS_ITS ---
Author Organization Unknown Address [address] [place] [phone] Phone Care Team Providers Care Guest Services Attendant Name Role Phone APOORVA Blanton MD Attending [...] FLEX CULTURE - Collect Date/Time: 10/17/2020 12:31 [facility] ID: [id number] - [id number] [address] [place] [address], [address] LOINC: 85243-8 Test Value Unit Reference Range Code Code System Flag COLLECTION MODE: CLEAN CATCH Color YELLOW yellow 5778-6 LOINC Appearance CLEAR clear 5767-9 LOINC Glucose urine NEGATIVE negative mg/dl 47548-9 LOINC Bilirubin NEGATIVE negative 5770-3 LOINC Ketones NEGATIVE negative mg/dl 2514-8 LOINC Spec gravity 1.025 1.003 - 1.030 5811-5 LOINC pH urine 6.0 5.0 - 7.0 2756-5 LOINC Protein 100 negative mg/dl 70803-0 LOINC A Urobilinogen 1.0 <or= 1 EU/dl 13679-3 LOINC A Nitrite. NEGATIVE negative 5802-4 LOINC Blood SMALL negative 5794-3 LOINC A Leukocytes. TRACE negative A WBCs. 0-5 0-5 / hpf 55330-8 LOINC RBCs none 0-5 / hpf Epith cells 0-5 0-5 / hpf 85223-3 LOINC Cell types squamous Crystals amorphous none Bacteria minimal none Mucus none none Casts 0-5 none /lpf 17641-5 LOINC Cast types fine gran Other CBC W/ DIFFERENTIAL - Collec t Date/Time: 10/17/2020 12:31 [facility] ID: [id number] [address] [place], [place], [address] LOINC: 88081-0 Test Value Unit Reference Range Code Code System Flag WBC 6.63 th/cmm L=5.00 H=10.00 6690-2 LOINC NEUT % 69.5 % L=40.0 H=80.0 LYMPH % 21.1 % L=10.0 H=50.0 MONO % 5.4 % L=2.0 H=12.0 64282-9 LOINC EOS % 3.0 % L=0.0 H=8.0 BASO % 0.8 % L=0.0 H=3.0 IG % 0.2 % L=0.0 H=1.1 2514-8 LOINC NRBC % 0.0 % L=0.0 H=0.0 26632-5 LOINC NEUT abs count 4.6 th/cmm L=1.6 H=8.4 751-8 LOINC LYMPH abs count 1.4 th/cmm L=1.5 H=4.0 731-0 LOINC L MONO abs count 0.4 th/cmm L=0.2 H=1.0 742-7 LOINC EOS abs count 0.2 th/cmm L=0.0 H=0.5 711-2 LOINC BASO abs count 0.1 th/cmm L=0.0 H=0.2 704-7 LOINC IG abs count 0.0 th/cmm L=0.0 H=0.1 30864-0 LOINC NRBC abs count 0.0 mil/cmm L=0.0 H=0.0 31531-3 LOINC RBC 4.18 mil/cmm L=3.90 H=5.40 789-8 [...] em Smoking History Current every day smoker 851188828 SNOMED CT Sex Female Assessment You had [...] Date Status Code Code System NIDDM active 98807068 SNOMED-CT CAD active 18828147 SNOMED-CT MYOCARDIAL INFARCT active 75194270 S NOMED-CT GERD active 683815796 SNOMED-CT DEPRESSION active 26704558 SNOMED-CT HIGH CHOLESTEROL 05/01/2023 resolved 37944679 SN OMED-CT STENTED ARTERY 05/01/2023 resolved 952708578 SNOM ED-CT COPD 05/01/2023 resolved 62769055 SNOMED-CT Allergies and Adverse Reactions Allergy Substance Reaction Severity Start Date Concern Status Code Code Syste m MORPHINE Vomiting (SNOMED-CT: 694077567) Moderate Active 7052 RxNorm LATEX Active 1536996 RxNorm BAND-AID BRAND ADHESIVE BANDAGES Moderate Active 6003396 RxNorm Plan of Treatment MRI L SPINE [...]
--- OUTSIDE RECORDS SUMMARY | 2023-12-22 15:10 | XMS_ITS | Encounter Summary ---
Author Organization [facility] Address [address] [place] [address] Care Team Providers Care Dental Hygienist Mobile Coordinator Name Role Phone Elizabeth Dsouza MD Primary Care Provider [phone] Encounter Details Date Type Department Care Team (Late st Contact Info) Description 08/19/2017 Historical Results Only [facility] Radiology Results [address] [place] [address] Les An MD [address] [place] [phone] Social History Tobacco Use Types Packs/Day Years [...] [facility] CT Scan [address] [place] [address] documented as of this encounter Procedures Procedure [...] CC: ? Transcribed Date/Time: 08/19/2017 (1227) ? Heating Systems Installer: ? Printed Date/Time: 09/04/2018 (4659) ? PAGE 1 ? Signed Report ? [...] Amilcar Funk MD CC: Transcribed Date/Time: 08/19/2017 (8478) Heating Systems Installer: Printed Date/Time: 09/04/2018 (4551) PAGE 1 Signed Report Les An MD [facility] [place] ORDERABLES * MAGNESIUM (08/19/2017 6:00 EDT) Magnesium 2.00 1.7 - 2.8 mg/dL 08/19/2017 7:34 EDT [facility] 08/19/2017 6:00 EDT 08/19/2017 6:52 EDT Thi Asencio DO CHEMISTRY & BLOOD G ORDERABLES [facility] * (ABNORMAL) COMPREHENSIVE METABOLIC PANEL (CMP) (08/19/2017 6:00 EDT) Albumin % 2.7(L) 3.4 - 4.9 g/dL 08/19/2017 7:34 EDT [facility] ALKALINE PHOSPHATASE - [facility] 56 38 - 126 U/L 08/19/2017 7:34 EDT [facility] BILIRUBIN TOTAL 1.6(H) 0.2 - 1.3 mg/dL 08/19/2017 7:34 EDT [facility] BUN - [facility] 17 10 - 26 mg/dL 08/19/2017 7:34 [facility] CALCIUM - [facility] 8.3(L) 8.5 - 10.5 mg/dL 08/19/2017 7:34 [facility] Chloride 109 96 - 110 mmol/L 08/19/2017 7:34 [facility] CO2 Total 22 22 - 32 mEq/L 08/19/2017 7:34 [facility] CREATININE 0.90 0.52 - 1.04 mg/dL 08/19/2017 7:34 [facility] eGFR >60 08/19/2017 7:34 [facility] Comment: Chronic renal impairment is defined as GFR <60 Multiply result by 1.210 for patients. eGFR calculated using the IDMS-traceable MDRD Study Equation. ??(effective 01/17/2014) Anion Gap 7 0 - 18 08/19/2017 7:34 [facility] GLUCOSE - [facility] 130(H) 70 - 100 mg/dL 08/19/2017 7:34 [facility] Potassium 4.4 3.5 - 5.0 mEq/L 08/19/2017 7:34 [facility] Sodium 138 136 - 145 mEq/L 08/19/2017 7:34 [facility] TOTAL PROTEIN - [facility] 5.1(L) 6.2 - 8.2 gm/dL 08/19/2017 7:34 [facility] SGOT/AST - [facility] 25 14 - 36 U/L 08/19/2017 7:34 [facility] SGPT/ALT - [facility] 26 9 - 52 U/L 8 7:34 [facility] 08/19/2017 6:00 EDT 08/19/2017 6:52 EDT Thi Asencio DO CHEMISTRY & BLOOD G ORDERABLES [facility] * (ABNORMAL) COMPLETE BLOOD COUNT AND DIFFERENTIAL (08/19/2017 6:00 EDT) ABSOLUTE NEUTROPHIL COUN - [facility] 7.39(H) 1.7 - 7.0 10e3/ul 08/19/2017 7:40 [facility] BASOPHILS - [facility] 0.16 0.0 - 0.3 10e3/uL 08/19/2017 7:40 [facility] BANDS - [facility] 18(H) 0 - 3 % 08/19/2017 7:40 [facility] BASOPHIL - [facility] 2 0 - 2 % 8 7:40 [facility] CRENATED CELLS - [facility] RARE 08/19/2017 7:40 [facility] EOS # - [facility] 0.08 0.05 - 0.5 10e3/uL 08/19/2017 7:40 [facility] EOSINOPHILS - [facility] 1 0 - 5 % 08/19/2017 7:40 [facility] HEMATOCRIT - [facility] 32.1(L) 34.0 - 47.0 % 08/19/2017 7:01 [facility] HEMOGLOBIN - [facility] 9.2(L) 11.2 - 15.7 g/dl 08/19/2017 7:01 [facility] LYMPH # - [facility] 0.50(L) 0.9 - 2.9 10e3/uL 08/19/2017 7:40 [facility] LYMPHOCYTES - [facility] 6(L) 20 - 40 % 08/19/2017 7:40 [facility] MEAN CORPUSCULAR HGB - [facility] 20.8(L) 26 - 34 pg 08/19/2017 7:01 [facility] MEAN CORPUSCULAR HGB CONC - [facility] 28.7(L) 31 - 36 g/dL 08/19/2017 7:01 [facility] MEAN CELL VOLUME - [facility] 72.5(L) 77 - 100 fl 08/19/2017 7:01 [facility] MICROCYTES - [facility] 2+ 08/19/2017 7:40 [facility] MONO # - [facility] 0.25(L) 0.3 - 0.9 10e3/uL 08/19/2017 7:40 EDT [facility] MONOCYTE - [facility] 3 0 - 12 % 8 7:40 EDT [facility] PLATELET COUNT 166 150 - 400 10e3/ul 08/19/2017 7:01 EDT [facility] NEUTROPHILS - [facility] 70 40 - 80 % 08/19/2017 7:40 EDT [facility] RED BLOOD COUNT - [facility] 4.43 3.8 - 5.2 10e6/ul 08/19/2017 7:01 EDT [facility] RED CELL DISTRI WIDTH - [facility] 18.2(H) 11.8 - 15.6 % 08/19/2017 7:01 EDT [facility] WHITE BLOOD COUNT - [facility] 8.4 3.5 - 10.5 10e3/ul 08/19/2017 7:01 EDT [facility] 08/19/2017 6:00 EDT 08/19/2017 6:52 EDT Thi Asencio DO PACKAGES & DNA PROB E ORDERABLES [facility] documented in this encounter Visit Diagnoses Not on filedocumented in this encounter Care Teams Dental Hygienist Mobile Coordinator Relationship Specialty Start Date End Date Elizabeth Dsouza MD [address] [facility] [place] [address] PCP - General 02/13/12 documented as of this encounter
--- OUTSIDE RECORDS SUMMARY | 2023-12-22 15:10 | XMS_ITS ---
Author Organization Unknown Address [address] [place] [phone] Phone Care Team Providers Care Surveillance Observer Name Role Phone AMINAH Lai MELTER SUPERVISOR OXYGEN FURNACE Attending Unavailable LETITIA [place] Primary Unavailable Immunization [...] em Smoking History Current every day smoker [id number] SNOMED CT Sex Female Assessment You had [...] Date Status Code Code System NIDDM active 13690771 SNOMED-CT CAD active 11683784 SNOMED-CT MYOCARDIAL INFARCT active 04926155 S NOMED-CT GERD active 163263221 SNOMED-CT DEPRESSION active 12363929 SNOMED-CT HIGH CHOLESTEROL 05/01/2023 resolved 80766273 SN OMED-CT STENTED ARTERY 05/01/2023 resolved 828758581 SNOM ED-CT COPD 05/01/2023 resolved 55121132 SNOMED-CT Allergies and Adverse Reactions Allergy Substance Reaction Severity Start Date Concern Status Code Code Syste m MORPHINE Vomiting (SNOMED-CT: 006524389) Moderate Active 7052 RxNorm LATEX Active 7599881 RxNorm BAND-AID BRAND ADHESIVE BANDAGES Moderate Active 3554229 RxNorm Plan of Treatment MRI L SPINE [...]
--- OUTSIDE RECORDS SUMMARY | 2023-12-22 15:10 | XMS_ITS | Encounter Summary ---
Author Organization [facility] Address [address] [place] [address] Care Team Providers Care Skip Miner Name Role Phone Elizabeth Dsouza MD Primary Care Provider [phone] Reason for Visit * Reason Onset Date Comments Appointment Related 08/21/2017 Encounter Details Date Type Department Care Team (Late st Contact Info) Description 08/21/2017 Telephone [facility] General Surgery [facility] [address] [phone] Elizabeth Pendleton MD [address] [phone] Appointment Related Social History Tobacco Use [...] Contact Info) Description 01/26/2024 8:30 EST Appointment [facility] CT Scan [address] [place] [address] documented as of this encounter Visit Diagnoses Not on filedocumented in this encounter Care Teams Skip Miner Relationship Specialty Start Date End Date Elizabeth Dsouza MD [address] [place] [phone] PCP - General 02/13/12 documented as of this encounter
--- OUTSIDE RECORDS SUMMARY | 2023-12-22 15:10 | XMS_ITS | Encounter Summary ---
Author Organization [facility] Address [address] [place] [address] Care Team Providers Care Manager Inventory Management Name Role Phone Elizabeth Dsouza MD Primary Care Provider [phone] Reason for Visit * Reason Onset Date Comments Appointment Related 08/27/2017 Encounter Details Date Type Department Care Team (Late st Contact Info) Description 08/27/2017 Telephone [facility] General Surgery - [address] [phone] Elizabeth Pendleton MD [address] [place] [phone] Appointment Related Social History Tobacco Use [...] [facility] CT Scan [address] [place] [address] documented as of this encounter Visit Diagnoses Not on filedocumented in this encounter Care Teams Manager Inventory Management Relationship Specialty Start Date End Date Elizabeth Dsouza MD [address] [place] [phone] PCP - General 02/13/12 documented as of this encounter
--- OUTSIDE RECORDS SUMMARY | 2023-12-22 15:10 | XMS_ITS | Encounter Summary ---
Author Organization [facility] Address [address] [place] [address] Care Team Providers Care Role Player Name Role Phone Elizabeth Dsouza MD Primary Care Provider [phone] Reason for Visit * Reason Onset Date Comments Appointment Related 03/24/2020 Encounter Details Date Type Department Care Team (Late st Contact Info) Description 03/24/[address] [facility] Vascular Surgery - [address] [phone] Acosta Christine MD [address] [facility], [address] [place] [address] Appointment Related Social History Tobacco [...] Telephone Encounter - Janis Velazquez - 03/24/2020 0771 EST Vascular ultrasound and consult with Dr. [...] Info) Description 01/26/2024 8:[address] [facility] CT Scan [address] [place] [address] documented as of this encounter Visit Diagnoses Not on filedocumented in this encounter Care Teams Role Player Relationship Specialty Start Date End Date Elizabeth Dsouza MD [address] [place] [address] PCP - General 02/13/12 documented as of this encounter
--- OUTSIDE RECORDS SUMMARY | 2023-12-22 15:10 | XMS_ITS | Encounter Summary ---
Author Organization [facility] Address [address] [place] [address] Care Team Providers Care Bath Tester Name Role Phone Elizabeth Dsouza MD Primary Care Provider [phone] Encounter Details Date Type Department Care Team (Late st Contact Info) Description 03/23/2020 Lab Requisition [facility] Pathology & Laboratory Medicine - [facility] [address] [place], [place] [address] Elizabeth Dsouza MD [address] [place] [phone] Encounter for general adult medical examination [...] Info) Description 01/26/2024 8:30 EST Appointment [facility] CT Scan [address] [place], [place] [address] documented as of this encounter Procedures Procedure [...] types, PCR Positive( A) Negative 04/11/2020 7:57 EST [facility] Comment:E6 OR E7 mRNA from o ne or more types of HPV types 16,18,31,33,35,39,45,51,52,56,58,59,66, and 68 is detected by [employer] advisor mediated amplification. High and intermediate risk HPV types are associated with most squamous intraepithelial lesions and cervical cancers. Papanicolaou smear specimen (specimen) CERVIX UTERI STRUCTURE / Unknown 03/21/2020 10:00 EST 04/03/2020 10:59 EST Elizabeth Dsouza MD MICROBIOLOGY - GENER AL ORDERABLES [facility] [address] [place] [address] * PAP TEST (03/21/2020 10:00 EST) Specimens A. Cervix and/or Endocervix , ThinPrep Imaging System with Manual Evaluation 04/11/2020 7:57 EST [facility] Specimen Adequacy Satisfactory for Evaluation - transformation zone component present 04/11/2020 7:57 EST [facility] General Categorization Epithelial Cell Abnormality 04/11/2020 7:57 EST [facility] Descriptive Diagnosis Squamous Cell Abnormality - Low grade squamous intraepithelial lesion (LSIL). Shift in marielos present suggestive of bacterial vaginosis. 04/11/2020 7:57 EST [facility] Educational Comments [facility] recommends following ASCCP's 2012 Updated Consensus Guidelines for the Management of Abnormal Cervical Cancer Screening Tests and Cancer Precursors (JLGTD, 2013; 17(5):S1-S27). Consensus guidelines are available online at www.asccp.org. 04/11/2020 7:57 [facility] Attestation By the signature below, the attending physician certifies that they have personally conducted a gross and/or microscopic examination of the described specimens and rendered or confirmed the above diagnosis. 04/11/2020 7:57 [facility] at 0757 Clinical History See below 04/11/19 7:57 [facility] HPV The result for the Human Papillomavirus (HPV) Detection-High Risk Types is Positive . E6 OR E7 mRNA from one or more types of HPV types 16,18,31,33,35,39 ,45,51,52,56,58,5 9,66, and 68 is detected by [employer] advisor mediated amplification. High and intermediate risk HPV types are associated with most squamous intraepithelial lesions and cervical cancers. Testing was performed on specimen [id number] and was resulted on 04/11/2020 0724 EST by ÁLVARO, LAB INSTRUMENT RESULTS IN 04/11/2020 7:57 [facility] Performing Lab [facility] 04/11/2020 7:57 [facility] Scanned Images 04/11/2020 7:57 [facility] Papanicolaou smear specimen (specimen) CERVIX UTERI STRUCTURE / Unknown 03/21/2020 10:00 EST 03/23/2020 13:13 EST Elizabeth Dsouza MD PATHOLOGY ORDERABLES Performing Organization Address City/State/[facility] Co de Phone Number [facility] [address] [place] [address] documented in this encounter Visit Diagnoses Diagnosis Encounter for general adult medical examination without abnormal findings Unspecified general medical examination Encounter for screening for malignant neoplasm of cervix Screening for malignant neoplasm of the cervix documented in this encounter Care Teams Bath Tester Relationship Specialty Start Date End Date Elizabeth Dsouza MD [address] [place] [phone] PCP - General 02/13/12 documented as of this encounter
--- OUTSIDE RECORDS SUMMARY | 2023-12-22 15:10 | XMS_ITS ---
Author Organization Unknown Address [address] [place] [phone] Phone Care Team Providers Care Business Process Architect Name Role Phone AMINAH Lai SPRAY RIG OPERATOR Attending Unavailable LETITIA RAND[place] Primary Unavailable Immunization [...] em Smoking History Current every day smoker [id number] SNOMED CT Sex Female Assessment You had [...] Date Status Code Code System NIDDM active 03146090 SNOMED-CT CAD active 83058038 SNOMED-CT MYOCARDIAL INFARCT active 34814726 S NOMED-CT GERD active 925888574 SNOMED-CT DEPRESSION active 31352451 SNOMED-CT HIGH CHOLESTEROL 05/01/2023 resolved 06110842 SN OMED-CT STENTED ARTERY 05/01/2023 resolved 138812629 SNOM ED-CT COPD 05/01/2023 resolved 56841136 SNOMED-CT Allergies and Adverse Reactions Allergy Substance Reaction Severity Start Date Concern Status Code Code Syste m MORPHINE Vomiting (SNOMED-CT: 718158479) Moderate Active 7052 RxNorm LATEX Active 2770823 RxNorm BAND-AID BRAND ADHESIVE BANDAGES Moderate Active 8344191 RxNorm Plan of Treatment MRI L SPINE [...]
--- OUTSIDE RECORDS SUMMARY | 2023-12-22 15:10 | XMS_ITS | Encounter Summary ---
Author Organization [facility] Address [address] [place] [address] Care Team Providers Care Circular Shear Operator Name Role Phone Elizabeth Dsouza MD Primary Care Provider [phone] Reason for Referral * Vascular Lab (Routine) - Authorization Not Required Specialty Diagnoses / Procedures Referred By Loli rose Referred To Contact Diagnoses Arterial bruit Procedures US LOWER ARTERIAL DUPLEX US UPPER ARTERIAL DUPLEX Elizabeth Dsouza MD [address] [place] [address] Referral ID Status Reason Start Date Expiration Date Visits Requested Visits Authorized [id number] Authorization Not Required 0 1 1 Encounter Details Date Type Department Care Team (Latest Contact Info) Description 12/27/2019 Transcribe Orders [facility] Vascular Surgery - [facility] [address] [place], [place] [address] Elizabeth Dsouza MD [address] [place] [address] Arterial bruit (Primary Dx) Social [...] Appointment [facility] Scan [address] [place] [address] Scheduled Orders Name Type Priority Associated Diagnoses Orde r Schedule US LOWER ARTERIAL DUPLEX Vascular Ultrasound Routine Arterial bruit 03/07/2020 documented as of this encounter Visit Diagnoses Diagnosis Arterial bruit- Primary Other symptoms involving cardiovascular system documented in this encounter Care Teams Circular Shear Operator Relationship Specialty Start Date End Date Elizabeth Dsouza MD [address] [place] [address] PCP - General 02/13/12 documented as of this encounter
--- OUTSIDE RECORDS SUMMARY | 2023-12-22 15:10 | XMS_ITS | Encounter Summary ---
Author Organization [facility] Address [address] [place] [address] Care Team Providers Care Special Warfare Combatant Crewman Name Role Phone Elizabeth Dsouza MD Primary Care Provider [phone] Encounter Details Date Type Department Care Team (Late st Contact Info) Description 08/21/2017 Historical Results Only [facility] - [place] [address] [place], [place] [phone] Les An MD [address] [place], [place] [phone] Social History Tobacco Use Types Packs/Day Years Used Date Smoking Tobacco: Never Assessed Sex and Gender Information Value Date Recorded Sex Assigned at Not on file Gender Identity Female 01/04/2021 7:40 EDT Sexual Orientation Not on file documented as of this encounter Plan of Treatment Upcoming Encounters Date Type Department Care Team (Late st Contact Info) Description 01/26/2024 8:30 EST Appointment [facility] CT Scan [address] [place] [address] documented as of this encounter Procedures Procedure Name Priority Date/Time Associated Diagnosis Comments COMPLETE BLOOD COUNT WITH DIFFERENTIAL (AUTO) Routine 08/21/2017 6:30 EDT documented in this encounter Results * (ABNORMAL) COMPLETE BLOOD COUNT WITH DIFFERENTIAL (AUTO) (08/21/2017 6:30 EDT) ABSOLUTE NEUTROPHIL [facility] 6.58 1.7 - 7.0 10e3/ul 08/21/2017 7:18 [facility] BASO # - [facility] 0.01 0.0 - 0.3 10e3/uL 08/21/2017 7:18 [facility] BASO % - [facility] 0 0 - 2 % 08/21/2017 7:18 [facility] EOS # - [facility] 0.14 0.05 - 0.5 10e3/uL 08/21/2017 7:18 [facility] EOS % - [facility] 2 0 - 5 % 08/21/2017 7:18 [facility] GRAN % - [facility] 81(H) 40 - 80 % 08/21/2017 7:18 [facility] HEMATOCRIT - [facility] 30.9(L) 34.0 - 47.0 % 08/21/2017 7:18 [facility] HEMOGLOBIN - [facility] 8.9(L) 11.2 - 15.7 g/dl 08/21/2017 7:18 [facility] IG# - [facility] 0.02 0 - 0.07 10e3/uL 08/21/2017 7:18 [facility] IG% - [facility] 0.2 0 - 0.9 % 08/21/2017 7:18 [facility] LYMPH # - [facility] 0.70(L) 0.9 - 2.9 10e3/uL 08/21/2017 7:18 [facility] LYMPH% - [facility] 9(L) 20 - 40 % 08/21/2017 7:18 [facility] MEAN CORPUSCULAR HGB - [facility] 20.6(L) 26 - 34 pg 08/21/2017 7:18 [facility] MEAN CORPUSCULAR HGB CONC - [facility] 28.8(L) 31 - 36 g/dL 08/21/2017 7:18 [facility] MEAN CELL VOLUME - [facility] 71.7(L) 77 - 100 fl 08/21/2017 7:18 [facility] MONO # - [facility] 0.65 0.3 - 0.9 10e3/uL 08/21/2017 7:18 EDT [facility] MONO% - [facility] 8 0 - 12 % 08/21/2017 7:18 EDT [facility] PLATELET COUNT 172 150 - 400 10e3/ul 08/21/2017 7:18 EDT [facility] RED BLOOD COUNT - [facility] 4.31 3.8 - 5.2 10e6/ul 08/21/2017 7:18 EDT [facility] RED CELL DISTRI WIDTH - [facility] 18.4(H) 11.8 - 15.6 % 08/21/2017 7:18 EDT [facility] WHITE BLOOD COUNT - [facility] 8.1 3.5 - 10.5 10e3/ul [facility]2017 [facility] 08[facility]/2017 6:30 EDT 08/21/2017 7:00 EDT Les An MD HEMATOLOGY & PF4 ORD ERABLES [facility] documented in this encounter Visit Diagnoses Not on filedocumented in this encounter Care Teams Special Warfare Combatant Crewman Relationship Specialty Start Date End Date Elizabeth Dsouza MD [address] [place] [phone] PCP - General 02/13/12 documented as of this encounter
--- OUTSIDE RECORDS SUMMARY | 2023-12-22 15:10 | XMS_ITS | Encounter Summary ---
Author Organization [facility] Address [address] [place] [address] Care Team Providers Care Refrigeration Systems Installer Name Role Phone Elizabeth Dsouza MD Primary Care Provider [phone] Encounter Details Date Type Department Care Team (Latest Contact Info) Description 08/18/2017 11:06 EDT - 08/18/2017 23:59 EDT Hospital Encounter [facility] [address] [place] [address] Unknown, Provider, Discharge Disposition: Home or Self [...] or Self Long-Term documented in this encounter Plan of Treatment Upcoming Encounters Date Type Department Care Team (Late st Contact Info) Description 01/26/2024 8:30 EST Appointment [facility] CT Scan [address] [place] [address] documented as of this encounter Visit Diagnoses Not on filedocumented in this encounter Care Teams Refrigeration Systems Installer Relationship Specialty Start Date End Date Elizabeth Dsouza MD [address] [place] [phone] PCP - General 02/13/12 documented as of this encounter
--- OUTSIDE RECORDS SUMMARY | 2023-12-22 15:10 | XMS_ITS ---
Author Organization Unknown Address [address] [place] [phone] Phone Care Team Providers Care [employer] Buffer Name Role Phone POLLO TELLEZ DPM Attending [...] em Smoking History Current every day smoker 110423130 SNOMED CT Sex Female Assessment You had [...] Date Status Code Code System NIDDM active 17657330 SNOMED-CT CAD active 65131042 SNOMED-CT MYOCARDIAL INFARCT active 96133218 S NOMED-CT GERD active 292547992 SNOMED-CT DEPRESSION active 76195944 SNOMED-CT HIGH CHOLESTEROL 05/01/2023 resolved 24701743 SN OMED-CT STENTED ARTERY 05/01/2023 resolved 533775685 SNOM ED-CT COPD 05/01/2023 resolved 93741738 SNOMED-CT Allergies and Adverse Reactions Allergy Substance Reaction Severity Start Date Concern Status Code Code Syste m MORPHINE Vomiting (SNOMED-CT: 532255093) Moderate Active 7052 RxNorm LATEX Active 0129974 RxNorm BAND-AID BRAND ADHESIVE BANDAGES Moderate Active 9464727 RxNorm Plan of Treatment MRI L SPINE [...] Code Sys tem Idiopathic peripheral neuropathy 08/28/2020 34826057 SNOMED-CT Personal Care Team Section Performer Name Performer Role Active Date Inactive Av pérez
--- OUTSIDE RECORDS SUMMARY | 2023-12-22 15:10 | XMS_ITS | Encounter Summary ---
Author Organization [facility] Address [address] [place] [address] Care Team Providers Care Bulb Packer Name Role Phone Unavailable Primary Care Provider Unavailabl e Encounter Details Date Type Department Care Team (Latest Contact Info) Description 05/20/2002 8:39 EST - 05/20/2002 11:59 EST Hospital Encounter [facility] - Other [address] [place] [id number] Ferdinand Richey MD Unknown, Provider, Discharge Disposition: [...] 8:30 EST Appointment [facility] [place] [address] [place] [address] documented as of this encounter Procedures Procedure [...] ? NAVIN CLIFFORD ? Accession #: ? [id number] : ? 1955 (Age: 46) ??F ?Collect [...] Trichomonas vaginalis present. EDUCATIONAL NOTES/RECOMMENDATI ONS ? [facility] recommends following the 2001 Consensus Guidelines for the Management of Women with Cervical Cytological Abnormalities (RADHA,2002;287:212 0-9). Management algorithms have been distributed by [facility] and are available online at [email or web address]. ? Document reviewed and electronically signed by: ? JONNY WADDELL MD [facility] ? Report Date: ??05/31/2002 15:45 End of Report CHANTEL HERNANDEZ 05/20/2002 05/24/2002 Ferdinand Richey MD PATHOLOGY ORDERABLES [facility] HERNANDEZ [address] [place] [address] documented in this encounter Visit Diagnoses Not on filedocumented in this encounter
--- OUTSIDE RECORDS SUMMARY | 2023-12-22 15:11 | XMS_ITS ---
Author Organization Unknown Address [address] [place] [address] [phone] Phone Care Team Providers Care Magazine Journalist Name Role Phone AMINAH Lai ELECTROMYOGRAPHIC TECHNICIAN Attending Unavailable LETITIA RANDALL Primary Unavailable Immunization [...] em Smoking History Current every day smoker [id number] SNOMED CT Sex Female Assessment You had [...] Date Status Code Code System NIDDM active 02186000 SNOMED-CT CAD active 07778041 SNOMED-CT MYOCARDIAL INFARCT active 38475247 S NOMED-CT GERD active 282934597 SNOMED-CT DEPRESSION active 03754427 SNOMED-CT HIGH CHOLESTEROL 05/01/2023 resolved 06565854 SN OMED-CT STENTED ARTERY 05/01/2023 resolved 798731246 SNOM ED-CT COPD 05/01/2023 resolved 87152849 SNOMED-CT Allergies and Adverse Reactions Allergy Substance Reaction Severity Start Date Concern Status Code Code Syste m MORPHINE Vomiting (SNOMED-CT: 272415855) Moderate Active 7052 RxNorm LATEX Active 0050523 RxNorm BAND-AID BRAND ADHESIVE BANDAGES Moderate Active 6516138 RxNorm Plan of Treatment MRI L SPINE [...]
--- OUTSIDE RECORDS SUMMARY | 2023-12-22 15:11 | XMS_ITS ---
Author Organization Unknown Address [address] [place] [address] [phone] Phone Care Team Providers Care Tobacco Buyer Name Role Phone APOORVA Blanton MD Attending [...] em Smoking History Current every day smoker 629174300 SNOMED CT Sex Female Vital Signs Vital Sign Value Unit Caldwell Value Caldwell Unit Date/Time Recent/Initial? Code Code System Body Mass Index 32.85 kg/m2 10/26/2020 08:41 Initial 66619 -5 LOINC Systolic Blood Pressure 157 mm[Hg] 11/01/2020 08:28 Initial 8480- 6 LOINC Diastolic Blood Pressure 74 mm[Hg] 11/01/2020 08:28 Initial 8462- 4 LOINC Body Surface Area 1.89 m2 10/26/2020 08:41 Initial 3140- 1 LOINC Height 157.480 0 cm 62.00 in 10/26/2020 08:41 Initial 8302- 2 LOINC O2 Saturation 96 % 2020 08:28 Initial 67131 -5 LOINC Pulse 77.0 /min 11/01/2020 08:28 Initial 8867- 4 LOINC Respiration 16 /min 11/02/19 08:28 Initial 9279- 1 LOINC Temperature 36.1 Maliha 97.0 F 08/18/20 21 08:28 Initial 8310- 5 LOINC Weight 81.47 kg 179.60 lbs 10/26/2020 08:41 Initial 08571 -7 [facility] Assessment You [...] Vagina; w/Loop Electrode Biopsy(s), Cervix 11/01/2020 completed 42871 CPT Problems Problem Start Date Resolved Date Status Code Code System NIDDM active 22288113 SNOMED-CT CAD active 35337376 SNOMED-CT MYOCARDIAL INFARCT active 97728470 S NOMED-CT GERD active 194219283 SNOMED-CT DEPRESSION active 49318345 SNOMED-CT HIGH CHOLESTEROL 05/01/2023 resolved 06044831 SN OMED-CT STENTED ARTERY 05/01/2023 resolved 407850790 SNOM ED-CT COPD 05/01/2023 resolved 68849930 SNOMED-CT Allergies and Adverse Reactions Allergy Substance Reaction Severity Start Date Concern Status Code Code Batool jack MORPHINE Vomiting (SNOMED-CT: 777790379) Moderate Active 7052 RxNorm LATEX Active 2045161 RxNorm BAND-AID BRAND ADHESIVE BANDAGES Moderate Active 6494077 RxNorm Plan of Treatment MRI L SPINE [...]
--- OUTSIDE RECORDS SUMMARY | 2023-12-22 15:11 | XMS_ITS ---
Author Organization Unknown Address [address] [place] [address] [phone] Phone Care Team Providers Care Gastroenterology Technician Name Role Phone APOORVA Blanton MD Attending [...] em Smoking History Current every day smoker 132909637 SNOMED CT Sex Female Assessment You had [...] Date Status Code Code System NIDDM active 10181874 SNOMED-CT CAD active 99362416 SNOMED-CT MYOCARDIAL INFARCT active 66650002 S NOMED-CT GERD active 475922337 SNOMED-CT DEPRESSION active 97638932 SNOMED-CT HIGH CHOLESTEROL 05/01/2023 resolved 64207311 SN OMED-CT STENTED ARTERY 05/01/2023 resolved 457209237 SNOM ED-CT COPD 05/01/2023 resolved 56944556 SNOMED-CT Allergies and Adverse Reactions Allergy Substance Reaction Severity Start Date Concern Status Code Code Syste m MORPHINE Vomiting (SNOMED-CT: 891079110) Moderate Active 7052 RxNorm LATEX Active 2136591 RxNorm BAND-AID BRAND ADHESIVE BANDAGES Moderate Active 3293264 RxNorm Plan of Treatment MRI L SPINE [...]
--- OUTSIDE RECORDS SUMMARY | 2023-12-22 15:11 | XMS_ITS ---
Author Organization Unknown Address [address] [place] [address] [phone] Phone Care Team Providers Care Chute Feeder Name Role Phone APOORVA Blanton MD Attending Unavailable LETITIA RANDALL Primary Unavailable Immunization Immunization Date Status Additional Notes Code Code System COVID-19, mRNA, LNP-S, PF, 1 00 mcg/0.5mL dose or 50 mcg/0.25mL dose 06/21/2020 Completed 207 CVX COVID-19, mRNA, LNP-S, PF, 1 00 mcg/0.5mL dose or 50 mcg/0.25mL dose 07/19/2020 Completed 207 CVX Results CBC W/ DIFFERENTIAL - Collec t Date/Time: 11/14/2020 11:20 [facility] ID: [id number] [address] [place] [address], [address] LOINC: 81633-8 Test Value Unit Reference Range Code Code System Flag WBC 7.55 th/cmm L=5.00 H=10.00 6690-2 LOINC NEUT % 74.1 % L=40.0 H=80.0 LYMPH % 14.4 % L=10.0 H=50.0 MONO % 8.5 % L=2.0 H=12.0 90220-7 LOINC EOS % 1.6 % L=0.0 H=8.0 BASO % 0.5 % L=0.0 H=3.0 IG % 0.9 % L=0.0 H=1.1 2514-8 LOINC NRBC % 0.0 % L=0.0 H=0.0 17537-2 LOINC NEUT abs count 5.6 th/cmm L=1.6 H=8.4 751-8 LOINC LYMPH abs count 1.1 th/cmm L=1.5 H=4.0 731-0 LOINC L MONO abs count 0.6 th/cmm L=0.2 H=1.0 742-7 LOINC EOS abs count 0.1 th/cmm L=0.0 H=0.5 711-2 LOINC BASO abs count 0.0 th/cmm L=0.0 H=0.2 704-7 LOINC IG abs count 0.1 th/cmm L=0.0 H=0.1 29394-7 LOINC NRBC abs count 0.0 mil/cmm L=0.0 H=0.0 35875-5 LOINC RBC 4.15 mil/cmm L=3.90 H=5.40 789-8 [...] em Smoking History Current every day smoker 532778340 SNOMED CT Sex Female Assessment You had [...] Date Status Code Code System NIDDM active 28002138 SNOMED-CT CAD active 46532390 SNOMED-CT MYOCARDIAL INFARCT active 74893347 S NOMED-CT GERD active 704499871 SNOMED-CT DEPRESSION active 77884766 SNOMED-CT HIGH CHOLESTEROL 05/01/2023 resolved 37053175 SN OMED-CT STENTED ARTERY 05/01/2023 resolved 063677860 SNOM ED-CT COPD 05/01/2023 resolved 27102581 SNOMED-CT Allergies and Adverse Reactions Allergy Substance Reaction Severity Start Date Concern Status Code Code Syste m MORPHINE Vomiting (SNOMED-CT: 209669478) Moderate Active 7052 RxNorm LATEX Active 2684895 RxNorm BAND-AID BRAND ADHESIVE BANDAGES Moderate Active 0041931 RxNorm Plan of Treatment MRI L SPINE [...]
--- OUTSIDE RECORDS SUMMARY | 2023-12-22 15:12 | XMS_ITS ---
Author Organization Unknown Address [address] [place] [address] [phone] Phone Care Team Providers Care Loom Doffer Name Role Phone AMINAH Lai APPLICATIONS SYSTEMS ENGINEER Attending Unavailable LETITIA RANDALL Primary Unavailable Immunization [...] em Smoking History Current every day smoker 333003284 SNOMED CT Sex Female Assessment You had [...] Date Status Code Code System NIDDM active 06404707 SNOMED-CT CAD active 26896899 SNOMED-CT MYOCARDIAL INFARCT active 25242355 S NOMED-CT GERD active 201536270 SNOMED-CT DEPRESSION active 55731106 SNOMED-CT HIGH CHOLESTEROL 05/01/2023 resolved 21664009 SN OMED-CT STENTED ARTERY 05/01/2023 resolved 405264358 SNOM ED-CT COPD 05/01/2023 resolved 05661676 SNOMED-CT Allergies and Adverse Reactions Allergy Substance Reaction Severity Start Date Concern Status Code Code Syste m MORPHINE Vomiting (SNOMED-CT: 936500449) Moderate Active 7052 RxNorm LATEX Active 7007197 RxNorm BAND-AID BRAND ADHESIVE BANDAGES Moderate Active 6228067 RxNorm Plan of Treatment MRI L SPINE [...]
[2023-12-22 15:19] LABS: Abs Immature Grans 0.02 10^3/uL (0.0-0.06); Absolute Basophil Count 0.03 10^3/uL (0.0-0.2); Absolute Monocyte Count 0.36 10^3/uL (0.1-0.8); Absolute Neutrophil Count 3.43 10^3/uL (1.2-6.7); Basophils % 0.6 %; Eosinophils % 2.1 %; HCT 28.2 % (36.0-46.0); HGB 8.1 g/dL (11.2-15.7); Immature Grans % 0.4 %; Lymphocytes % 16.9 %; MCH 25.4 pg (27.0-33.0); MCHC 28.7 % (32.0-36.0); MCV 88 fL (80-95); MPV 10.2 fL (8.0-11.0); Monocytes % 7.6 %; Neutrophils % 72.4 %; Platelet Count 229 10^3/uL (130-400); RBC 3.19 10^6/uL (3.93-5.22); RDW 19.7 % (11.7-14.6); RDW-SD 63.4 fL; WBC 4.74 10^3/uL (4.4-10.8)
[2023-12-22 15:36] LABS: Magnesium 2.6 mg/dL (1.8-2.4)
== END 2023-12-22 14:59 | disposition home or self-care (01) ==
LOC: NCHCN 14:58
PROVIDERS: PCP Family Medicine; Visit Provider Family Medicine
DX: G25.81 Restless legs syndrome (principal); D64.9 Anemia, unspecified
CPT/HCPCS: 83735; 85025

== ENCOUNTER 2024-03-05 17:32 | Outpatient (REF) | payer MEDICARE, SELFPAY ==
--- OUTSIDE RECORDS SUMMARY | 2024-03-05 17:34 | XMS_ITS ---
Author Organization Unknown Address [address] [place] [address] [phone] Phone Care Team Providers Care Strategic Marketing Leader Name Role Phone POLLO Cooper Attending Unavailable LETITIA Gaspar Primary Unavailable Social History Type Status Start Date End Date Code Code Syst em Smoking History Current every day smoker 188051671 SNOMED CT Sex Female Assessment You had [...] Date Status Code Code System NIDDM active 77849554 SNOMED-CT CAD active 71664828 SNOMED-CT MYOCARDIAL INFARCT active 53091857 S NOMED-CT GERD active 406703716 SNOMED-CT DEPRESSION active 58085765 SNOMED-CT HIGH CHOLESTEROL 05/01/2023 resolved 56517014 SN OMED-CT STENTED ARTERY 05/01/2023 resolved 023546590 SNOM ED-CT COPD 05/01/2023 resolved 55600411 SNOMED-CT Allergies and Adverse Reactions Allergy Substance Reaction Severity Start Date Concern Status Code Code Syste m MORPHINE Vomiting (SNOMED-CT: 194648025) Moderate Active 7052 RxNorm LATEX Active 9891761 RxNorm BAND-AID BRAND ADHESIVE BANDAGES BREAK OUT (SNOMED-CT: null) Moderate Active 8116542 RxNorm Plan of Treatment MRI L SPINE [...] tem Refusal of treatment by patient 04/16/2021 896931735 SNOMED-CT Personal Care Team Section Performer Name Performer Role Active Date Inactive Da te
--- OUTSIDE RECORDS SUMMARY | 2024-03-05 17:35 | XMS_ITS ---
Author Organization Unknown Address [address] [place] [address] [phone] Phone Care Team Providers Care Account Support Rep Name Role Phone MONO Lai Attending Unavailable LETITIA Gaspar Primary Unavailable Social History Type Status Start Date End Date Code Code Syst em Smoking History Current every day smoker 752564531 SNOMED CT Sex Female Assessment You had [...] Date Status Code Code System NIDDM active 60312803 SNOMED-CT CAD active 14253852 SNOMED-CT MYOCARDIAL INFARCT active 72826818 S NOMED-CT GERD active 335463662 SNOMED-CT DEPRESSION active 46999796 SNOMED-CT HIGH CHOLESTEROL 05/01/2023 resolved 94572182 SN OMED-CT STENTED ARTERY 05/01/2023 resolved 118915716 SNOM ED-CT COPD 05/01/2023 resolved 62055578 SNOMED-CT Allergies and Adverse Reactions Allergy Substance Reaction Severity Start Date Concern Status Code Code Syste m MORPHINE Vomiting (SNOMED-CT: 679050691) Moderate Active 7052 RxNorm LATEX Active 2247874 RxNorm BAND-AID BRAND ADHESIVE BANDAGES BREAK OUT (SNOMED-CT: null) Moderate Active 2861278 RxNorm Plan of Treatment MRI L SPINE [...]
--- OUTSIDE RECORDS SUMMARY | 2024-03-05 17:35 | XMS_ITS ---
Author Organization Unknown Address [address] [place] [address] [phone] Phone Care Team Providers Care Die Maker Bench Stamping Name Role Phone MONO Lai Attending Unavailable LETITIA Gaspar Primary Unavailable Social History Type Status Start Date End Date Code Code Syst em Smoking History Current every day smoker 271488039 SNOMED CT Sex Female Assessment You had [...] Date Status Code Code System NIDDM active 92862682 SNOMED-CT CAD active 22357514 SNOMED-CT MYOCARDIAL INFARCT active 92216849 S NOMED-CT GERD active 684094279 SNOMED-CT DEPRESSION active 92443827 SNOMED-CT HIGH CHOLESTEROL 05/01/2023 resolved 56140638 SN OMED-CT STENTED ARTERY 05/01/2023 resolved 708361457 SNOM ED-CT COPD 05/01/2023 resolved 70215226 SNOMED-CT Allergies and Adverse Reactions Allergy Substance Reaction Severity Start Date Concern Status Code Code Syste m MORPHINE Vomiting (SNOMED-CT: 653762129) Moderate Active 7052 RxNorm LATEX Active 3649209 RxNorm BAND-AID BRAND ADHESIVE BANDAGES BREAK OUT (SNOMED-CT: null) Moderate Active 1400699 RxNorm Plan of Treatment MRI L SPINE [...]
--- OUTSIDE RECORDS SUMMARY | 2024-03-05 17:35 | XMS_ITS ---
Author Organization Unknown Address [address] [place] [address] [phone] Phone Care Team Providers Care Education Diagnostician Name Role Phone RIKKI WRIGHT Attending Unavailable LETITIA Gaspar Primary Unavailable Results BUN/CREATININE RATIO FOR RAD IOLOGY* - Collect Date/Time: 12/27/2021 11:46 [facility] ID: [id number] [address] [place], [place], [address] LOINC: 3097-3 Test Value Unit Reference Range Code Code System Flag BUN 13 mg/dL L=6 H=25 3094-0 LOINC CREATININE 1.59 mg/dL L=0.51 H=0.95 2160-0 LOINC H BUN/CREATININE RATIO 8.2 3097-3 LOINC AGE 66 years eGFR (non-Afr.Amer) 33 mL/min 47152-2 LOINC eGFR (Afr-Micronesian) 39 mL/min 52124-1 LOINC Social History Type Status Start Date End Date Code Code Syst em Smoking History Current every day smoker 733884726 SNOMED CT Sex Female Assessment You had [...] Date Status Code Code System NIDDM active 26513312 SNOMED-CT CAD active 27776453 SNOMED-CT MYOCARDIAL INFARCT active 25011161 S NOMED-CT GERD active 966447271 SNOMED-CT DEPRESSION active 47511501 SNOMED-CT HIGH CHOLESTEROL 05/01/2023 resolved 33446150 SN OMED-CT STENTED ARTERY 05/01/2023 resolved 115688760 SNOM ED-CT COPD 05/01/2023 resolved 36495253 SNOMED-CT Allergies and Adverse Reactions Allergy Substance Reaction Severity Start Date Concern Status Code Code Syste m MORPHINE Vomiting (SNOMED-CT: 474343644) Moderate Active 7052 RxNorm LATEX Active 8433407 RxNorm BAND-AID BRAND ADHESIVE BANDAGES BREAK OUT (SNOMED-CT: null) Moderate Active 1352970 RxNorm Plan of Treatment MRI L SPINE [...] Code Sys tem Peripheral vascular disease 12/27/2021 456905499 SNOMED-CT Personal Care Team Section Performer Name Performer Role Active Date Inactive Da te
--- OUTSIDE RECORDS SUMMARY | 2024-03-05 17:35 | XMS_ITS ---
Author Organization Unknown Address [address] [place] [address] [phone] Phone Care Team Providers Care Inside Finisher Name Role Phone RIKKI WRIGHT Attending Unavailable LETITIA Gaspar Primary Unavailable Results TSH THYROID STIMULATING HORM ONE* - Collect Date/Time: 12/25/2021 09:53 [facility] ID: [id number] [address] [place] [address], [address] LOINC: 3014-8 Test Value Unit Reference Range Code Code System Flag TSH 1.411 uIU/mL L=0.360 H=3.740 3014-8 LOINC SED RATE* - Collect Date/Shahriar e: 12/25/2021 09:53 [facility] ID: [id number] [address] [place] [address], [address] LOINC: 4537-7 Test Value Unit Reference Range Code Code System Flag SED. RATE 18 mm/hr L=0 H=30 4537-7 LOINC CBC W/ DIFFERENTIAL* - Colle ct Date/Time: 12/25/2021 09:53 [facility] ID: [id number] [address] [place] [address], [address] LOINC: 90285-1 Test Value Unit Reference Range Code Code System Flag WBC 5.01 th/cmm L=5.00 H=10.00 6690-2 LOINC NEUT % 69.0 % L=40.0 H=80.0 LYMPH % 20.4 % L=10.0 H=50.0 MONO % 6.8 % L=2.0 H=12.0 27026-1 LOINC EOS % 3.0 % L=0.0 H=8.0 BASO % 0.6 % L=0.0 H=3.0 IG % 0.2 % L=0.0 H=1.1 2514-8 LOINC NRBC % 0.0 % L=0.0 H=0.0 93416-1 LOINC NEUT abs count 3.5 th/cmm L=1.6 H=8.4 751-8 LOINC LYMPH abs count 1.0 th/cmm L=1.5 H=4.0 731-0 LOINC L MONO abs count 0.3 th/cmm L=0.2 H=1.0 742-7 LOINC EOS abs count 0.2 th/cmm L=0.0 H=0.5 711-2 LOINC BASO abs count 0.0 th/cmm L=0.0 H=0.2 704-7 LOINC IG abs count 0.0 th/cmm L=0.0 H=0.1 77873-1 LOINC NRBC abs count 0.0 mil/cmm L=0.0 H=0.0 06624-6 LOINC RBC 3.26 mil/cmm L=3.90 H=5.40 789-8 [...] L (CMP) - Collect Date/Time: 12/25/2021 09:53 [facility] ID: [id number] [address] [place], [place], [address] LOINC: 10633-9 Test Value Unit Reference Range Code Code [...] H=34 2028-9 LOINC ANION GAP 7.8 mmol/L 70699-7 LOINC CALCIUM SERUM 9.0 mg/dL L=8.2 H=10.2 22911-5 LOINC BILIRUBIN TOTAL 0.9 mg/dL L=0.0 H=1.3 1975-2 LOINC ALK. PHOS. 58 U/L L=46 H=116 6768-6 LOINC SGOT (AST) 9 U/L L=15 H=37 1920-8 LOINC L SGPT (ALT) 17 U/L L=12 H=78 1742-6 LOINC TOTAL PROTEIN 7.1 gm/dL L=6.0 H=8.0 2885-2 LOINC ALBUMIN 3.5 gm/dL L=3.4 H=5.0 1751-7 LOINC AGE 66 years eGFR (non-Afr.Amer.) 33 mL/min 73884-0 LOINC eGFR (Afr-Bermudian) 39 mL/min 89879-9 LOINC FERRITIN - Collect Date/Time : 12/25/2021 09:53 [facility] ID: [id number] [address] [place], [place], [address] LOINC: 2276-4 Test Value Unit Reference Range Code Code System Flag FERRITIN 6 ng/mL L=8 H=388 2276-4 LOINC L Social History Type Status Start Date End Date Code Code Syst em Smoking History Current every day smoker 666647442 SNOMED CT Sex Female Assessment You had [...] Date Status Code Code System NIDDM active 05437142 SNOMED-CT CAD active 10572896 SNOMED-CT MYOCARDIAL INFARCT active 05152337 S NOMED-CT GERD active 638170721 SNOMED-CT DEPRESSION active 32767125 SNOMED-CT HIGH CHOLESTEROL 05/01/2023 resolved 23269921 SN OMED-CT STENTED ARTERY 05/01/2023 resolved 997227343 SNOM ED-CT COPD 05/01/2023 resolved 49296854 SNOMED-CT Allergies and Adverse Reactions Allergy Substance Reaction Severity Start Date Concern Status Code Code Syste m MORPHINE Vomiting (SNOMED-CT: 836025083) Moderate Active 7052 RxNorm LATEX Active 7022023 RxNorm BAND-AID BRAND ADHESIVE BANDAGES BREAK OUT (SNOMED-CT: null) Moderate Active 0298620 RxNorm Plan of Treatment MRI L SPINE [...] Code Sys tem Iron deficiency anemia 12/25/2021 87749858 SNOME D-CT Personal Care Team Section Performer Name Performer Role Active Date Inactive Da beto
--- OUTSIDE RECORDS SUMMARY | 2024-03-05 17:36 | XMS_ITS ---
Author Organization Unknown Address [address] [place] [address] [phone] Phone Care Team Providers Care New Client Banking Services Clerk Name Role Phone MONO Lai Attending Unavailable LETITIA Gaspar Primary Unavailable Social History Type Status Start Date End Date Code Code Syst em Smoking History Current every day smoker 288794523 SNOMED CT Sex Female Assessment You had [...] Date Status Code Code System NIDDM active 85301223 SNOMED-CT CAD active 86035931 SNOMED-CT MYOCARDIAL INFARCT active 36595939 S NOMED-CT GERD active 468983476 SNOMED-CT DEPRESSION active 28106287 SNOMED-CT HIGH CHOLESTEROL 05/01/2023 resolved 54946785 SN OMED-CT STENTED ARTERY 05/01/2023 resolved 710753084 SNOM ED-CT COPD 05/01/2023 resolved 35292793 SNOMED-CT Allergies and Adverse Reactions Allergy Substance Reaction Severity Start Date Concern Status Code Code Syste m MORPHINE Vomiting (SNOMED-CT: 224633294) Moderate Active 7052 RxNorm LATEX Active 9897405 RxNorm BAND-AID BRAND ADHESIVE BANDAGES BREAK OUT (SNOMED-CT: null) Moderate Active 5219061 RxNorm Plan of Treatment MRI L SPINE [...]
--- OUTSIDE RECORDS SUMMARY | 2024-03-05 17:36 | XMS_ITS ---
Author Organization Unknown Address [address] [place] [address] [phone] Phone Care Team Providers Care Field Consultant Name Role Phone LETITIA Gaspar Attending Unavailable Social History Type Status Start Date End Date Code Code Syst em Smoking History Current every day smoker 436441090 SNOMED CT Sex Female Assessment You had [...] Date Status Code Code System NIDDM active 61099951 SNOMED-CT CAD active 01920913 SNOMED-CT MYOCARDIAL INFARCT active 92984664 S NOMED-CT GERD active 056787668 SNOMED-CT DEPRESSION active 70256670 SNOMED-CT HIGH CHOLESTEROL 05/01/2023 resolved 52346804 SN OMED-CT STENTED ARTERY 05/01/2023 resolved 270189462 SNOM ED-CT COPD 05/01/2023 resolved 87014570 SNOMED-CT Allergies and Adverse Reactions Allergy Substance Reaction Severity Start Date Concern Status Code Code Syste m MORPHINE Vomiting (SNOMED-CT: 492227017) Moderate Active 7052 RxNorm LATEX Active 5725171 RxNorm BAND-AID BRAND ADHESIVE BANDAGES BREAK OUT (SNOMED-CT: null) Moderate Active 6131457 RxNorm Plan of Treatment MRI L SPINE [...] Code Sys tem Canceled operative procedure 04/16/2022 08665486 SNOMED-CT Personal Care Team Section Performer Name Performer Role Active Date Inactive Da te
--- OUTSIDE RECORDS SUMMARY | 2024-03-05 17:36 | XMS_ITS ---
Author Organization Unknown Address [address] [place] [address] [phone] Phone Care Team Providers Care Front End Specialist Name Role Phone RIKKI WRIGHT Attending Unavailable LETITIA Gaspar Primary Unavailable Social History Type Status Start Date End Date Code Code Syst em Smoking History Current every day smoker 772310563 SNOMED CT Sex Female Assessment You had [...] Date Status Code Code System NIDDM active 27776218 SNOMED-CT CAD active 69531114 SNOMED-CT MYOCARDIAL INFARCT active 52451584 S NOMED-CT GERD active 446331544 SNOMED-CT DEPRESSION active 93154554 SNOMED-CT HIGH CHOLESTEROL 05/01/2023 resolved 75244916 SN OMED-CT STENTED ARTERY 05/01/2023 resolved 899533269 SNOM ED-CT COPD 05/01/2023 resolved 56754804 SNOMED-CT Allergies and Adverse Reactions Allergy Substance Reaction Severity Start Date Concern Status Code Code Syste m MORPHINE Vomiting (SNOMED-CT: 527310885) Moderate Active 7052 RxNorm LATEX Active 3172760 RxNorm BAND-AID BRAND ADHESIVE BANDAGES BREAK OUT (SNOMED-CT: null) Moderate Active 2717458 RxNorm Plan of Treatment MRI L SPINE [...]
--- OUTSIDE RECORDS SUMMARY | 2024-03-05 17:36 | XMS_ITS ---
Author Organization Unknown Address [address] [place] [address] [phone] Phone Care Team Providers Care Machine Molder Name Role Phone LETITIA Gaspar Attending Unavailable Results BD DXA BONE DENSITY HIP AND SPINE - Completed: 05/22/2022 13:43 [facility]: [place], [place] [address] PACS REAM CUTTER REPORT Patient Name: VIKRAM CLIFFORD MRN: Sex: : Age: [id number] F 1955 66 Account: Accession: Admit: StayType: [id number] 05/22/2022 O/P Ordered: Order ID: Submitted: Ordering Provider: 05/22/2022 12:59 [id number] NLS TONIA DONG Completed: Technologist: Resulted: 05/22/2022 [...] 4V RT* - Completed: 05/22/2022 13:22 LOINC: [facility] [place] [address] PACS REAM CUTTER REPORT Patient Name: VIKRAM CLIFFORD MRN: Sex: : Age: [id number] F 1955 66 Account: Accession: Admit: StayType: [id number] 05/22/2022 O/P Ordered: Order ID: Submitted: Ordering Provider: 05/22/2022 12:59 [id number] TONIA ALBERTS Completed: Technologist: Resulted: 05/22/2022 13:22 [...] em Smoking History Current every day smoker 922736937 SNOMED CT Sex Female Assessment You had [...] Date Status Code Code System NIDDM active 58230046 SNOMED-CT CAD active 05468570 SNOMED-CT MYOCARDIAL INFARCT active 34354257 S NOMED-CT GERD active 678390671 SNOMED-CT DEPRESSION active 49851256 SNOMED-CT HIGH CHOLESTEROL 05/01/2023 resolved 84378552 SN OMED-CT STENTED ARTERY 05/01/2023 resolved 228651796 SNOM ED-CT COPD 05/01/2023 resolved 64305462 SNOMED-CT Allergies and Adverse Reactions Allergy Substance Reaction Severity Start Date Concern Status Code Code Syste m MORPHINE Vomiting (SNOMED-CT: 851980835) Moderate Active 7052 RxNorm LATEX Active 5458918 RxNorm BAND-AID BRAND ADHESIVE BANDAGES BREAK OUT (SNOMED-CT: null) Moderate Active 9350368 RxNorm Plan of Treatment MRI L SPINE [...]
--- OUTSIDE RECORDS SUMMARY | 2024-03-05 17:37 | XMS_ITS ---
Author Organization Unknown Address [address] [place] [address] [phone] Phone Care Team Providers Care Inspector Finishing Name Role Phone LETITIA Gaspar Attending Unavailable Results NM BONE SCAN WHOLE BODY - Co mpleted: 06/06/2022 11:55 LOINC: [facility] [place], [place] [address] PACS DRAMATIC AGENT REPORT Patient Name: VIKRAM CLIFFORD MRN: Sex: : Age: [id number] F 1955 66 Account: Accession: Admit: StayType: [id number] 06/06/2022 O/P Ordered: Order ID: Submitted: Ordering Provider: 06/06/2022 08:55 [id number] [facility] TONIA DONG Completed: Technologist: Resulted: [...] em Smoking History Current every day smoker 772401647 SNOMED CT Sex Female Assessment You had [...] Date Status Code Code System NIDDM active 28055601 SNOMED-CT CAD active 78441038 SNOMED-CT MYOCARDIAL INFARCT active 17476423 S NOMED-CT GERD active 230399238 SNOMED-CT DEPRESSION active 19675049 SNOMED-CT HIGH CHOLESTEROL 05/01/2023 resolved 85926554 SN OMED-CT STENTED ARTERY 05/01/2023 resolved 363201561 SNOM ED-CT COPD 05/01/2023 resolved 72644373 SNOMED-CT Allergies and Adverse Reactions Allergy Substance Reaction Severity Start Date Concern Status Code Code Syste m MORPHINE Vomiting (SNOMED-CT: 701531032) Moderate Active 7052 RxNorm LATEX Active 1563533 RxNorm BAND-AID BRAND ADHESIVE BANDAGES BREAK OUT (SNOMED-CT: null) Moderate Active 8992738 RxNorm Plan of Treatment MRI L SPINE [...] Date Code Code Sys tem Osteolysis 06/06/2022 194971041 SNOMED-CT Personal Care Team Section Performer Name Performer Role Active Date Inactive Da te
--- OUTSIDE RECORDS SUMMARY | 2024-03-05 17:37 | XMS_ITS ---
Author Organization Unknown Address [address] [place] [address] [phone] Phone Care Team Providers Care Health Promotion Manager Name Role Phone LETITIA Gaspar Attending Unavailable Results CT LDCT FOR LUNG CA SCREEN - Completed: 05/23/2022 09:33 [facility]: [facility] [place], [place] [address] PACS WAGON WINDER REPORT Patient Name: VIKRAM CLIFFORD MRN: Sex: : Age: [id number] F 1955 66 Account: Accession: Admit: StayType: [id number] 05/23/2022 O/P Ordered: Order ID: Submitted: Ordering Provider: 05/23/2022 08:47 [id number] [facility] TONIA DONG Completed: Technologist: Resulted: 05/23/2022 [...] em Smoking History Current every day smoker 209624367 SNOMED CT Sex Female Assessment You had [...] Date Status Code Code System NIDDM active 08849447 SNOMED-CT CAD active 57951584 SNOMED-CT MYOCARDIAL INFARCT active 68247777 S NOMED-CT GERD active 488203739 SNOMED-CT DEPRESSION active 40240949 SNOMED-CT HIGH CHOLESTEROL 05/01/2023 resolved 84224122 SN OMED-CT STENTED ARTERY 05/01/2023 resolved 977931989 SNOM ED-CT COPD 05/01/2023 resolved 79654183 SNOMED-CT Allergies and Adverse Reactions Allergy Substance Reaction Severity Start Date Concern Status Code Code Syste m MORPHINE Vomiting (SNOMED-CT: 828692647) Moderate Active 7052 RxNorm LATEX Active 9921340 RxNorm BAND-AID BRAND ADHESIVE BANDAGES BREAK OUT (SNOMED-CT: null) Moderate Active 2452052 RxNorm Plan of Treatment MRI L SPINE [...]
--- OUTSIDE RECORDS SUMMARY | 2024-03-05 17:38 | XMS_ITS ---
Author Organization Unknown Address [address] [place] [address] [phone] Phone Care Team Providers Care Design Painter Name Role Phone MONO Lai Attending Unavailable LETITIA Gaspar Primary Unavailable Results BLOOD BANK REPORT OF UNITS A JUANA* - Collect Date/Time: 05/12/2023 14:46 ID: [id number] [address] [place] [address], [phone] LOINC: Test Value Unit Reference Range Code Code System Flag Component Packed RBCs Leukopoor Blood Group A 883-9 LOINC Rh (D) NEGATIVE 18313-1 LOINC Antibody Screen. PREV. POS Antibody Id. NON SPECIFIC COLD AGGLUTININ TYPE AND CROSS 1 UNIT (INCLU JÚNIOR SCREEN)* - Collect Date/Time: 05/12/2023 13:54 ID: [id number] [address] [place] [address], [id number] LOINC: Test Value Unit Reference Range Code Code System Flag Blood Group A 883-9 LOINC Rh (D) NEGATIVE 65386-3 LOINC Antibody Screen Neg w/prev Ab 1005-8 LOINC Antibody Id. NON SPECIFIC COLD AGGLUTININ CBC W/ DIFFERENTIAL* - Colle ct Date/Time: 05/12/2023 13:54 ID: [id number] [address] [place] [address], [phone] LOINC: 15110-4 Test Value Unit Reference Range Code Code System Flag WBC 5.89 th/cmm L=5.00 H=10.00 6690-2 LOINC NEUT % 77.6 % L=40.0 H=80.0 LYMPH % 15.1 % L=10.0 H=50.0 MONO % 5.1 % L=2.0 H=12.0 49484-1 LOINC EOS % 1.4 % L=0.0 H=8.0 BASO % 0.5 % L=0.0 H=3.0 IG % 0.3 % L=0.0 H=1.1 2514-8 LOINC NRBC % 0.0 % L=0.0 H=0.0 41843-6 LOINC NEUT abs count 4.6 th/cmm L=1.6 H=8.4 751-8 LOINC LYMPH abs count 0.9 th/cmm L=1.5 H=4.0 731-0 LOINC L MONO abs count 0.3 th/cmm L=0.2 H=1.0 742-7 LOINC EOS abs count 0.1 th/cmm L=0.0 H=0.5 711-2 LOINC BASO abs count 0.0 th/cmm L=0.0 H=0.2 704-7 LOINC IG abs count 0.0 th/cmm L=0.0 H=0.1 64904-9 LOINC NRBC abs count 0.0 mil/cmm L=0.0 H=0.0 35070-6 LOINC RBC 3.33 mil/cmm L=3.90 H=5.40 789-8 [...] em Smoking History Current every day smoker 324851725 SNOMED CT Sex Female Assessment You had [...] Date Status Code Code System NIDDM active 29346093 SNOMED-CT CAD active 05024903 SNOMED-CT MYOCARDIAL INFARCT active 34122307 S NOMED-CT GERD active 085574485 SNOMED-CT DEPRESSION active 35412743 SNOMED-CT HIGH CHOLESTEROL 05/01/2023 resolved 35006318 SN OMED-CT STENTED ARTERY 05/01/2023 resolved 342498294 SNOM ED-CT COPD 05/01/2023 resolved 53824640 SNOMED-CT Allergies and Adverse Reactions Allergy Substance Reaction Severity Start Date Concern Status Code Code Syste m MORPHINE Vomiting (SNOMED-CT: 890111656) Moderate Active 7052 RxNorm LATEX Active 6873823 RxNorm BAND-AID BRAND ADHESIVE BANDAGES BREAK OUT (SNOMED-CT: null) Moderate Active 2786331 RxNorm Plan of Treatment MRI L SPINE [...] Code Sys tem Iron deficiency anemia 05/12/2023 57809049 SNOME D-CT Personal Care Team Section Performer Name Performer Role Active Date Inactive Da te
--- OUTSIDE RECORDS SUMMARY | 2024-03-05 17:38 | XMS_ITS ---
Author Organization Unknown Address [address] [place] [address] [phone] Phone Care Team Providers Care Dam Tender Name Role Phone MONO Lai Attending Unavailable LETITIA Gaspar Primary Unavailable Social History Type Status Start Date End Date Code Code Syst em Smoking History Current every day smoker 733483390 SNOMED CT Sex Female Assessment You had [...] Date Status Code Code System NIDDM active 30371613 SNOMED-CT CAD active 65677797 SNOMED-CT MYOCARDIAL INFARCT active 42303885 S NOMED-CT GERD active 193052946 SNOMED-CT DEPRESSION active 41223293 SNOMED-CT HIGH CHOLESTEROL 05/01/2023 resolved 39895674 SN OMED-CT STENTED ARTERY 05/01/2023 resolved 660158205 SNOM ED-CT COPD 05/01/2023 resolved 94332890 SNOMED-CT Allergies and Adverse Reactions Allergy Substance Reaction Severity Start Date Concern Status Code Code Syste m MORPHINE Vomiting (SNOMED-CT: 706298887) Moderate Active 7052 RxNorm LATEX Active 1974220 RxNorm BAND-AID BRAND ADHESIVE BANDAGES BREAK OUT (SNOMED-CT: null) Moderate Active 4602826 RxNorm Plan of Treatment MRI L SPINE [...]
--- OUTSIDE RECORDS SUMMARY | 2024-03-05 17:38 | XMS_ITS ---
Author Organization Unknown Address [address] [place] [address] [phone] Phone Care Team Providers Care Zmt Operator Name Role Phone STACIA MCCURDY Registered Nurse Unavailable DARLING AGUILERA Attending Unavailable LETITIA Gaspar Primary Unavailable UNLISTED PROVIDER - REQUESTED Xhandoff Un available Results BLOOD BANK REPORT OF UNITS A HONGKARENDAPHNE* - Collect Date/Time: 05/01/2023 11:50 [facility] ID: [id number] [address] [place] [address], [phone] LOINC: Test Value Unit Reference Range Code Code System Flag Component Packed RBCs Leukopoor Blood Group A 883-9 LOINC Rh (D) NEGATIVE 60648-7 LOINC Antibody Screen. POSITIVE Antibody Id. NON SPECIFIC COLD AGGLUTININ TYPE AND SCREEN* - Collect D ate/Time: 05/01/2023 11:50 [facility] ID: [id number] [address] [place] [address], [phone] LOINC: Test Value Unit Reference Range Code Code System Flag Blood Group A 883-9 LOINC Rh (D) NEGATIVE 22291-6 LOINC Antibody Screen POSITIVE 1005-8 LOINC Antibody Id. NON SPECIFIC COLD AGGLUTININ CBC W/ DIFFERENTIAL* - Colle ct Date/Time: 05/01/2023 11:50 [facility] ID: [id number] [address] [place] [address], [address] LOINC: 62981-7 Test Value Unit Reference Range Code Code System Flag WBC 5.28 th/cmm L=5.00 H=10.00 6690-2 LOINC NEUT % 80.4 % L=40.0 H=80.0 H LYMPH % 13.3 % L=10.0 H=50.0 MONO % 4.4 % L=2.0 H=12.0 37160-4 LOINC EOS % 1.3 % L=0.0 H=8.0 BASO % 0.2 % L=0.0 H=3.0 IG % 0.4 % L=0.0 H=1.1 2514-8 LOINC NRBC % 0.0 % L=0.0 H=0.0 42641-3 LOINC NEUT abs count 4.3 th/cmm L=1.6 H=8.4 751-8 LOINC LYMPH abs count 0.7 th/cmm L=1.5 H=4.0 731-0 LOINC L MONO abs count 0.2 th/cmm L=0.2 H=1.0 742-7 LOINC EOS abs count 0.1 th/cmm L=0.0 H=0.5 711-2 LOINC BASO abs count 0.0 th/cmm L=0.0 H=0.2 704-7 LOINC IG abs count 0.0 th/cmm L=0.0 H=0.1 59218-5 LOINC NRBC abs count 0.0 mil/cmm L=0.0 H=0.0 80414-4 LOINC RBC 2.98 mil/cmm L=3.90 H=5.40 789-8 [...] em Smoking History Current every day smoker 437679806 SNOMED CT Sex Female Vital Signs Vital Sign Value Unit [place] Value [place] Unit Date/Time Recent/Initial? Code Code System Body Mass Index 29.26 kg/m2 05/01/2023 11:53 Initial 77946 -5 LOINC Systolic Blood Pressure 106 mm[Hg] [...] O2 Saturation 100 % 2023 13:00 Initial 45241 -5 LOINC Pulse 78.0 /min 05/01/2023 13:00 Most Recent 8867- 4 LOINC Pulse 81.0 /min 05/01/2023 11:53 Initial 8867- 4 LOINC Respiration 18 /min 05/01/19 24 13:00 Most Recent 9279- 1 LOINC Respiration 23 /min 05/01/19 24 11:53 Initial 9279- 1 LOINC Temperature 36.2 Maliha 97.2 F 05/01/19 24 11:53 Initial 8310- 5 LOINC Weight 72.57 kg 160.00 lbs 05/01/2023 11:53 Initial 72580 -7 LOINC Assessment You had the following problems:NIDDMCADMYOCARDIAL INFARCTGERDDEPRESSION Hospital Discharge Instructions Should you have any questions prior to discharge, please contact a member of your healthcare team. If you have left the hospital and have any questions, please contact your primary care physician. Reason For Referral No Data Found Procedures Procedure Name Date Status Code Code Syste m Carpal tunnel completed 38437152 SNOMEDCT Problems Problem Start Date Resolved Date Status Code Code System NIDDM active 81130274 SNOMED-CT CAD active 87445429 SNOMED-CT MYOCARDIAL INFARCT active 04972784 S NOMED-CT GERD active 355129238 SNOMED-CT DEPRESSION active 23312576 SNOMED-CT HIGH CHOLESTEROL 05/01/2023 resolved 23386946 SN OMED-CT STENTED ARTERY 05/01/2023 resolved 530072983 SNOM ED-CT COPD 05/01/2023 resolved 43829644 SNOMED-CT Allergies and Adverse Reactions Allergy Substance Reaction Severity Start Date Concern Status Code Code Syste m MORPHINE Vomiting (SNOMED-CT: 743461594) Moderate Active 7052 RxNorm LATEX Active 6864152 RxNorm BAND-AID BRAND ADHESIVE BANDAGES BREAK OUT (SNOMED-CT: null) Moderate Active 8542222 RxNorm Plan of Treatment MRI L SPINE [...] Date Code Code Sys tem Anemia 05/01/2023 310778698 SNOMED-CT Personal Care Team Section Performer Name Performer Role Active Date Inactive Da beto
--- OUTSIDE RECORDS SUMMARY | 2024-03-05 17:38 | XMS_ITS ---
Author Organization Unknown Address [address] [place] [address] [phone] Phone Care Team Providers Care Optical Lathe Operator Name Role Phone LETITIA Gaspar Attending Unavailable Results MR LS SPINE WO CONTRAST - Co mpleted: 03/12/2023 08:39 LOINC: [facility] [place], [place] [address] PACS LOSS PREVENTION OFFICER REPORT Patient Name: VIKRAM CLIFFORD MRN: Sex: : Age: [id number] F 1955 67 Account: Accession: Admit: StayType: [id number] 03/12/2023 O/P Ordered: Order ID: Submitted: Ordering Provider: 03/12/2023 07:54 [id number] [facility] TONIA DONG Completed: Technologist: Resulted: 03/12/2023 [...] em Smoking History Current every day smoker 446270263 [employer] CT Sex Female Assessment You had the following problems:NIDDMCADMYOCARDIAL INFARCTGERDDEPRESSION Hospital Discharge Instructions Should you have any questions prior to discharge, please contact a member of your healthcare team. If you have left the hospital and have any questions, please contact your primary care physician. Reason For Referral No Data Found Problems Problem Start Date Resolved Date Status Code Code System NIDDM active 63076547 SNOMED-CT CAD active 97297310 SNOMED-CT MYOCARDIAL INFARCT active 88227565 S NOMED-CT GERD active 956377659 SNOMED-CT DEPRESSION active 96394185 SNOMED-CT HIGH CHOLESTEROL 05/01/2023 resolved 96362392 SN OMED-CT STENTED ARTERY 05/01/2023 resolved 920296684 SNOM ED-CT COPD 05/01/2023 resolved 12581758 SNOMED-CT Allergies and Adverse Reactions Allergy Substance Reaction Severity Start Date Concern Status Code Code Syste m MORPHINE Vomiting (SNOMED-CT: 647460074) Moderate Active 7052 RxNorm LATEX Active 8324476 RxNorm BAND-AID BRAND ADHESIVE BANDAGES BREAK OUT (SNOMED-CT: null) Moderate Active 8239835 RxNorm Plan of Treatment MRI L SPINE [...] tem Degeneration of lumbar intervertebral disc 03/12/2023 53206354 SNOMED-CT Personal Care Team Section Performer Name Performer Role Active Date Inactive Da beto
--- OUTSIDE RECORDS SUMMARY | 2024-03-05 17:39 | XMS_ITS ---
Author Organization Unknown Address [address] [place] [address] [phone] Phone Care Team Providers Care Whizzer Hand Name Role Phone NINA BECK Registered Nurse Unavailable CABRERA ORDOÑEZ Attending Unavailable DANIEL [facility] Unavailable LETITIA Gaspar Primary Unavailable UNLISTED PROVIDER - REQUESTED Xhandoff Un available Results BLOOD BANK REPORT OF UNITS A JUANA* - Collect Date/Time: 12/05/2023 15:23 [facility] ID: [id number] [address] [place] [address], [phone] LOINC: Test Value Unit Reference Range Code Code System Flag Component Packed RBCs Leukopoor Blood Group A 883-9 LOINC Rh (D) NEGATIVE 89357-2 LOINC Antibody Screen. PREV. POS Antibody Id. NON SPECIFIC COLD AGGLUTININ ORDER VENOUS BLOOD GAS* - Co llect Date/Time: 12/05/2023 15:00 [facility] ID: [id number] [address] [place] [address], [phone] LOINC: Test Value Unit Reference Range Code [...] L Assist vent. Resp. Rate /min. Temp. PRESTON COVID FLU RSV GENEXPE RT - Collect Date/Time: 12/05/2023 14:10 [facility] ID: [id number] [address] [place], [place], [phone] LOINC: 85747-9 Test Value Unit Reference Range Code Code System Flag COVID NEGATIVE Normal: Negative 00858-9 LOINC INFLUENZA A DNA NEGATIVE Normal: Negative 88715-0 LOINC INFLUENZA B DNA NEGATIVE Normal: Negative 50526-2 LOINC RSV DNA NEGATIVE Normal: Negative 36562-7 LOINC TYPE AND SCREEN* - Collect D ate/Time: 12/05/2023 13:36 [facility] ID: [id number] [address] [place] [address], [phone] LOINC: Test Value Unit Reference Range Code Code System Flag Blood Group A 883-9 LOINC Rh (D) NEGATIVE 61352-8 LOINC Antibody Screen Neg w/prev Ab 1005-8 LOINC Antibody Id. NON SPEC COLD AGGLUTININ BASIC METABOLIC PANEL (BMP) - Collect Date/Time: 12/05/2023 13:36 [facility] ID: [id number] [address] [place] [address], [address] LOINC: 51327-8 Test Value Unit Reference Range Code Code [...] H=34 2028-9 LOINC ANION GAP 9.5 mmol/L 24614-8 LOINC CALCIUM SERUM 8.9 mg/dL L=8.2 H=10.2 03513-0 LOINC AGE 68 years eGFR (non-Afr.Amer.) 30 mL/min 62401-6 LOINC eGFR (Afr-Belarusian) 37 mL/min 86303-0 LOINC CBC W/ DIFFERENTIAL* - Colle ct Date/Time: 12/05/2023 13:36 [facility] ID: [id number] [address] [place], [place], [address] LOINC: 04129-4 Test Value Unit Reference Range Code Code System Flag WBC 6.78 th/cmm L=5.00 H=10.00 6690-2 LOINC NEUT % 79.6 % L=40.0 H=80.0 LYMPH % 12.1 % L=10.0 H=50.0 MONO % 5.9 % L=2.0 H=12.0 53031-6 LOINC EOS % 1.5 % L=0.0 H=8.0 BASO % 0.6 % L=0.0 H=3.0 IG % 0.3 % L=0.0 H=1.1 2514-8 LOINC NRBC % 0.0 % L=0.0 H=0.0 20385-4 LOINC NEUT abs count 5.4 th/cmm L=1.6 H=8.4 751-8 LOINC LYMPH abs count 0.8 th/cmm L=1.5 H=4.0 731-0 LOINC L MONO abs count 0.4 th/cmm L=0.2 H=1.0 742-7 LOINC EOS abs count 0.1 th/cmm L=0.0 H=0.5 711-2 LOINC BASO abs count 0.0 th/cmm L=0.0 H=0.2 704-7 LOINC IG abs count 0.0 th/cmm L=0.0 H=0.1 79715-0 LOINC NRBC abs count 0.0 mil/cmm L=0.0 H=0.0 51043-6 LOINC RBC 3.02 mil/cmm L=3.90 H=5.40 789-8 [...] LOINC Anisocytosis 1+ Microcytes 1+ Hypochromia 1+ TROPONIN HIGH SENSITIVITY* - Collect Date/Time: 12/05/2023 13:36 [facility] ID: [id number] [address] [place], [place], [address] LOINC: 53231-0 Test Value Unit Reference Range Code Code System Flag TROPONIN HS 7.4 pg/mL L=0.0 H=60.4 Specimen seq. RANDOM XR CHEST PORTABLE OR 1V - Co mpleted: 12/05/2023 13:42 LOINC: [facility] [place], [place] [address] RADIOLOGY EDUCATION DEPARTMENT CHAIR REPORT Patient Name: VIKRAM CLIFFORD MRN: Sex: : Age: [id number] F 1955 68 Account: Accession: Admit: StayType: [id number] 12/05/2023 E Ordered: Order ID: Submitted: Ordering Provider: 12/05/2023 13:34 [id number] TIAGO CHAVEZ Completed: Technologist: Resulted: 12/05/2023 13:39 [...] who have questions please contact the health career developer that requested your imaging first. Social History Type Status Start Date End Date Code Code Syst em Smoking History Current every day smoker 030029538 SNOMED CT Sex Female Vital Signs Vital Sign Value Unit [place] Value [place] Unit Date/Time Recent/Initial? Code Code System Body Mass Index 26.34 kg/m2 12/05/2023 13:37 Initial 89143 -5 LOINC Systolic Blood Pressure 125 mm[Hg] [...] Saturation 99 % 2023 17:50 Most Recent 10352 -5 LOINC O2 Saturation 95 % 2023 13:37 Initial 89286 -5 LOINC Pulse 72.0 /min 12/05/2023 17:50 [...] 65.32 kg 144.00 lbs 12/05/2023 13:37 Initial 44761 -7 LOINC Assessment You had the following problems:NIDDMCADMYOCARDIAL INFARCTGERDDEPRESSION Hospital Discharge Instructions Should you have any questions prior to discharge, please contact a member of your healthcare team. If you have left the hospital and have any questions, please contact your primary care physician. Reason For Referral No Data Found Problems Problem Start Date Resolved Date Status Code Code System NIDDM active 20241469 SNOMED-CT CAD active 18678549 SNOMED-CT MYOCARDIAL INFARCT active 20816481 S NOMED-CT GERD active 903444364 SNOMED-CT DEPRESSION active 05012030 SNOMED-CT HIGH CHOLESTEROL 05/01/2023 resolved 61709592 SN OMED-CT STENTED ARTERY 05/01/2023 resolved 758639006 SNOM ED-CT COPD 05/01/2023 resolved 52880617 SNOMED-CT Allergies and Adverse Reactions Allergy Substance Reaction Severity Start Date Concern Status Code Code Syste m MORPHINE Vomiting (SNOMED-CT: 449117064) Moderate Active 7052 RxNorm LATEX Active 0589653 RxNorm BAND-AID BRAND ADHESIVE BANDAGES BREAK OUT (SNOMED-CT: null) Moderate Active 5074397 RxNorm Plan of Treatment MRI L SPINE [...]
--- OUTSIDE RECORDS SUMMARY | 2024-03-05 17:39 | XMS_ITS ---
Author Organization Unknown Address [address] [place] [address] [phone] Phone Care Team Providers Care Grinder Set Up Operator Surface Name Role Phone LETITIA Gaspar Attending Unavailable Results TRANSFERRIN SATURATION* - Co llect Date/Time: 01/19/2024 14:20 [facility] ID: [id number] [address] [place] [address], [address] LOINC: 2502-3 Test Value Unit Reference Range Code Code System Flag IRON 17 ug/dL L=35 H=150 2498-4 LOINC L IBC 409 ug/dL L=260 H=445 2500-7 LOINC TRANSFERRIN SAT. 4.2 % 2502-3 LOINC FERRITIN - Collect Date/Time : 01/19/2024 14:20 [facility] ID: [id number] [address] [place] [address], [address] LOINC: 2276-4 Test Value Unit Reference Range Code Code System Flag FERRITIN 6 ng/mL L=8 H=388 2276-4 LOINC L Social History Type Status Start Date End Date Code Code Syst em Smoking History Current every day smoker 687352037 SNOMED CT Sex Female Assessment You had [...] Date Status Code Code System NIDDM active 50603203 SNOMED-CT CAD active 82506064 SNOMED-CT MYOCARDIAL INFARCT active 04772551 S NOMED-CT GERD active 964872752 SNOMED-CT DEPRESSION active 98968776 SNOMED-CT HIGH CHOLESTEROL 05/01/2023 resolved 17864286 SN OMED-CT STENTED ARTERY 05/01/2023 resolved 729976349 SNOM ED-CT COPD 05/01/2023 resolved 15021007 SNOMED-CT Allergies and Adverse Reactions Allergy Substance Reaction Severity Start Date Concern Status Code Code Syste m MORPHINE Vomiting (SNOMED-CT: 051878076) Moderate Active 7052 RxNorm LATEX Active 6977272 RxNorm BAND-AID BRAND ADHESIVE BANDAGES BREAK OUT (SNOMED-CT: null) Moderate Active 9464500 RxNorm Plan of Treatment MRI L SPINE [...] Code Code Sys tem Iron deficiency anemia 01/19/2024 58027876 SNOME D-CT Personal Care Team Section Performer Name Performer Role Active Date Inactive Da beto
--- OUTSIDE RECORDS SUMMARY | 2024-03-05 17:39 | XMS_ITS | Clinical Summary ---
Author Organization [facility] Address [address] [place] [address] Care Team Providers Care All Source Intelligence Name Role Phone Elizabeth Dsouza MD Primary Care Provider [phone] Allergies Active Allergy Reactions Criticality Noted Date Comments Latex Rash Medium 07/15/2022 Morphine Nausea And Vomiting Medium 12/28/2021 Oxycodone Nausea And Vomiting Medium 07/23/2022 Medications pregabalin (LYRICA) 50 mg capsule Take 1 [...] Take 1 Capsule by mouth daily. Active HYDROcodone-reagan taminophen (NORCO) 5-325 mg tablet Take 1 Tablet by mouth every 6 hours. Active polyethylene glycol (GOLYTELY) 236-22.74-6.74 -5.86 gram solution Dissolve mixture and drink as directed prior to procedure (see provided instructions). 4000 mL 4 07/01/19 25 Active Additional Information Patient not taking.Reported on 02/27/2024 Active Problems Patient Care Coordination No te Formatting of this note migh t be different from the original. Patient has given permission for [facility] to verbally discuss the following information [...] Alan MD on 08/13/2022 Lung nodule 07/19/2022 Overview (07/19/2022): Added automatically from request for surgery [id number] Encounters Date Type Department Care Team Description 03/05/2024 Telephone [facility] Adult Hematology & Oncology [address] [place] [id number] Diana Covington Follow-up (Tobacco cessation) 02/27/2024 9:30 EST Office Visit [facility] Cancer [address] [address] Harmony Trotter MD Malignant neoplasm of upper lobe of right lung (HCC-CMS) (Primary Dx) 02/27/2024 9:15 EST Nurse Only [facility] Cancer [address] [address] History of lung cancer (Primary Dx) 02/27/2024 Documentation Visit [facility] [place] [address] [place] [address] Divina Penny, RN 02/27/2024 Telephone [facility] Cancer Treatment [place] [address] [place] [address] Kaiser Miller MD Appointment Related (Pt interested in seeing Diana for Smoking Cessation - [phone]) 02/19/2024 9:49 EST - 02/19/2024 23:59 EST Hospital Encounter [facility] CT Scan [address] [place] [address] Squamous cell carcinoma of lung, right (HCC-CMS) Discharge Disposition: Home or Self Care 02/06/2024 9:00 EST Office Visit [facility] Cancer Treatment [place] [address] [place] [address] Khris Watson MD Squamous cell carcinoma of lung, right (HCC-CMS) (Primary Dx) 02/06/2024 Documentation Visit [facility] Cancer Treatment [place] [address] [place] [address] Divina Penny, ABEL 01/26/2024 8:15 EST - 01/26/2024 23:59 EST Hospital Encounter [facility] CT Scan [address] [place] [address] Malignant neoplasm of right lung, unspecified part of lung (HCC-CMS) Discharge Disposition: Home or Self Care 12/30/2023 11:35 EDT Phlebotomy Only [facility] - Outpatient Phlebotomy Drawing [address] [place] [address] Lab, [facility] Iron deficiency anemia due to chronic blood loss; Iron deficiency 12/30/2023 Telephone [facility] [address] [place] [phone] Angélica Hernandez MD Results 12/30/2023 Documentation Visit [facility] [address] [place] [phone] Angélica Hernandez MD Iron deficiency anemia due to chronic blood loss (Primary Dx); Iron deficiency from Last 3 Months Surgical History Surgery [...] intestine COPD (chronic obstructive pu lmonary disease) ([facility]) 07/23/22- well controlled w/ u se [...] Date Smoking Tobacco: Every Day Cigarettes 1 55 Started: 1970 Passive Smoke Exposure: Never Smokeless Tobacco: Never Alcohol Use Standard Drinks/Week Comments Not Currently 0 (1 standard drink = 0.6 oz pur e alcohol) Interpersonal Safety Answer Date Record ed Physically Hurt Never 10/17/2019 Verbally Threaten Not on file 10/17/2019 Comments No Sex and Gender Information Value Date Recorded Sex Assigned at Female 01/26/2024 8:14 EST Legal Sex Female 18:06 EST Gender Identity Female 01/04/2021 7:40 EDT Sexual Orientation Not on file Obstetrics History Last Filed Vital Signs Vital Sign Reading Time Taken Comments Blood Pressure 128/58 02/27/2024 0921 EST Pulse 88 02/27/2024 0921 EST Temperature 36.7 ??C (98 ??F) 12/04/20231935 EDT Respiratory Rate 16 12/04/20232124 EDT Oxygen Saturation 98% 02/27/202421 EST Inhaled Oxygen Concentration - - Weight 65.2 kg (143 lb 12.8 oz) 02/27/2024 09 EST Height 157.5 cm (5' 2) 12/04/20231933 EDT Body Mass Index 26.3 12/04/20231933 EDT Plan of Treatment Upcoming Encounters Date Type Department Care Team (Late st Contact Info) Description 04/06/2024 9:30 EST Appointment [facility] Endoscopy [address] [place] [address] Angélica Hernandez MD [address] [place] [phone] 05/19/2024 13:30 EST Appointment [facility] Endoscopy [address] [place] [address] Angélica Hernandez MD [address] [place] [phone] 05/28/2024 14:15 EDT Nurse Only [facility] Cancer Treatment [place] [address] [place] [address] 05/28/2024 14:30 EDT Office Visit [facility] Treatment [place] [address] [place], [place] [phone] Kaiser Miller MD [address] [facility] [address] [place] [phone] Health Maintenance Due Date Last Done Comments Hepatitis C Screen 1955 RSV Immunization ( o r 60+ Years) (1 - Risk 60-74 years 1-dose series) 2016 Fall Risk Screening 2021 COVID-19 Vaccine (3 - Mixed Product risk series) 01/28/2022 12/31/2021, 07/17/2021 Lung Cancer Screening 02/18/2025 02/19/2024 , 01/26/2024, 07/23/2023, Additional history exists Procedures Procedure Name Priority Date/Time Associated Diagnosis Comments CT CHEST WO CONTRAST Routine 02/19/2024 9:57 EST Squamous cell carcinoma of lung, right (HCC-CMS) CT CHEST WO CONTRAST Routine 01/26/2024 8:30 EST Malignant neoplasm of right lung, unspecified part of lung (HCC-CMS) IRON Routine 12/30/2023 11:45 EDT Iron deficiency anemia due to chronic blood loss COMPLETE BLOOD COUNT Routine 12/30/2023 11:45 EDT Iron deficiency anemia due to chronic blood loss Iron deficiency from Last 3 Months Results * CT CHEST WO CONTRAST (02/19/2024 9:57 EST) Anatomical Region Laterality Modality Chest Computed Tomogra phy 02/19/2024 10:3 1 EST Impressions 02/19/2024 10:31 EST 1. Stable bandlike opacity in the right upper lobe at the site of the previous treated malignancy, consistent with post treatment change. A nearby 8 x 4 mm irregular nodular opacity is unchanged compared to the January 2024 examination, but is new compared to July 2023. Recommend continued short-term surveillance with follow-up CT in no more than 3 months. Conversely, PET/CT may be performed, although this lesion may be too small for characterization by PET. 2. Multiple additional nodular opacities described as new on the previous examination have either resolved or have decreased in size. [id number] Narrative 02/19/2024 10:[address] CHEST WO CONTRAST ??02/19/2024 9:51 AM Clinical History/Comments: history of lung cancer s/p SBRT, now with new pulmonary nodules on follow-up CT; Non-small cell lung cancer (NSCLC), non-metastatic, assess treatment response; history of lung cancer s/p SBRT, now with new pulmonary nodules on follow-up CT Technique: CT scan of the chest was performed without contrast material. Thin section reconstructions were performed. This CT used either dose modulation and/or iterative reconstruction techniques to lower radiation dose. Comparison: 01/26/2024, 07/23/2023. PET/CT 07/26/2022 Findings: Lower neck: Normal. Mediastinum and frannie (non-vascular): No enlarged mediastinal or hilar lymph nodes. ??The esophagus appears normal. Cardiovascular: Moderate coronary artery calcification. Moderate aortic calcification Lungs and airways: * ??Patient with history of treated right upper lobe lung cancer. * ??Unchanged irregular bandlike opacity at the site of the treated lung cancer, measuring approximately 8 x 13 mm (series 204 image 115), compatible with posttreatment change. * ??Interval decrease in size of the previous 7 mm right upper lobe nodular opacity which now measures 4 mm (series 204 image 121). * ??Interval resolution of the previous 9 mm subsolid nodule at the anterior aspect of the right upper lobe on series 3 image 125 of the previous examination. * ??Interval resolution of the 2 groundglass nodules in the superior segment of the right lower lobe measuring 5 and 6 mm on series 3 image 142 through 149 of the previous examination. * ??Interval decrease in size of previous 4 mm nodule in the medial aspect of the right lower lobe which now measures 2 mm (series 204 image 156). * ??No significant interval change in 8 x 4 mm irregular nodular opacity in the right upper lobe inferior to the site of treated malignancy (series 204 image 133). Note that this is new compared to July 2023 Pleura: No pleural effusion or pneumothorax. Upper abdomen (limited to upper abdomen, not optimized for abdominal imaging): Cholelithiasis. Atherosclerosis. Chest wall soft tissues: No abnormalities in the chest wall soft tissues. Bones: Unchanged appearance of the bone marrow areas of patchy sclerosis and lucency, stable since at least May 2022 and not previously FDG avid. ?? Resulting Agency Comment [id number] Procedure Note Nelson Addison MD - 02/19/2024 CT CHEST WO CONTRAST 02/19/2024 9:51 AM Clinical History/Comments: history of lung cancer s/p SBRT, now with new pulmonary nodules onfollow-up CT; Non-small cell lung cancer (NSCLC), non-metastatic, assesstreatment response; history of lung cancer s/p SBRT, now with newpulmonary nodules on follow-up CT Technique: CT scan of the chest was performed without contrast material. Thin sectionreconstructions were performed. This CT used either dose modulation and/or iterative reconstructiontechniques to lower radiation dose. Comparison: 01/26/2024, 07/23/2023. PET/CT 07/26/2022 Findings: Lower neck: Normal. Mediastinum and frannie (non-vascular): No enlarged mediastinal or hilarlymph nodes. The esophagus appears normal. Cardiovascular: Moderate coronary artery calcification. Moderate aorticcalcification Lungs and airways: * Patient with history of treated right upper lobe lung cancer. * Unchanged irregular bandlike opacity at the site of the treated lungcancer, measuring approximately 8 x 13 mm (series 204 image 115),compatible with posttreatment change. * Interval decrease in size of the previous 7 mm right upper lobe nodularopacity which now measures 4 mm (series 204 image 121). * Interval resolution of the previous 9 mm subsolid nodule at theanterior aspect of the right upper lobe on series 3 image 125 of theprevious examination. * Interval resolution of the 2 groundglass nodules in the superiorsegment of the right lower lobe measuring 5 and 6 mm on series 3 image 142through 149 of the previous examination. * Interval decrease in size of previous 4 mm nodule in the medial aspectof the right lower lobe which now measures 2 mm (series 204 image 156). * No significant interval change in 8 x 4 mm irregular nodular opacity inthe right upper lobe inferior to the site of treated malignancy ([id number] image 133). Note that this is new compared to July 2023 Pleura: No pleural effusion or pneumothorax. Upper abdomen (limited to upper abdomen, not optimized for abdominalimaging): Cholelithiasis. Atherosclerosis. Chest wall soft tissues: No abnormalities in the chest wall softtissues. Bones: Unchanged appearance of the bone marrow areas of patchy sclerosisand lucency, stable since at least May 2022 and not previously FDG avid. IMPRESSION 1. Stable bandlike opacity in the right upper lobe at the site of theprevious treated malignancy, consistent with post treatment change. Anearby 8 x 4 mm irregular nodular opacity is unchanged compared to theN2023 examination, but is new compared to July 2023. Recommendcontinued short-term surveillance with follow-up CT in no more than 3months. Conversely, PET/CT may be performed, although this lesion may betoo small for characterization by PET. 2. Multiple additional nodular opacities described as new on the previousexamination have either resolved or have decreased in size. [id number] us Khris Watson MD IM CT ORDERABLES Final Result * CT CHEST WO CONTRAST (01/26/2024 8:30 EST) Anatomical Region Laterality Modality Chest Computed Tomogra phy 01/26/2024 11:0 3 EST Impressions 01/26/2024 11:03 EST Multiple new nodular opacities in the right lung as detailed above. Given morphology and distribution, favor an infectious process. However, disease progression cannot be excluded. Recommend short-term 1 month follow-up chest CT. [id number] Narrative 01/26/2024 11:[address] CHEST WO CONTRAST ??01/26/2024 8:17 AM Clinical History/Comments: lung cancer Technique: CT scan of the chest was performed without contrast material. Thin section reconstructions were performed. This CT used either dose modulation and/or iterative reconstruction techniques to lower radiation dose. Comparison: Chest CT 07/23/2023, 11/19/2022 on 05/23/2022. PET/CT 07/26/2022. Findings: Lower neck: Normal. Mediastinum and frannie (non-vascular): No enlarged mediastinal or hilar lymph nodes. ??The esophagus appears normal. Cardiovascular: Moderate coronary artery calcification. Moderate aortic calcification. Lungs and airways: * ??Emphysema. * ??No significant interval change in spiculated nodular opacity measuring 9 mm in the right upper lobe which appears flattened on multiplanar reformations at the site of primary malignancy on the July 2022 PET/CT. Mild adjacent bandlike opacity is also unchanged. * ??New/increasing branching micronodular opacities inferior to the site of primary malignancy in the right upper lobe, favored to reflect infectious bronchiolitis. * ??New 7 mm right upper lobe solid nodule (series 3 image 124). * ??New irregular 8 x 4 mm right upper lobe nodular opacity (series 3 image 136). * ??Two new nearby superior segment left lower lobe nodular opacities with solid components measuring 5 and 6 mm, but with faint adjacent groundglass opacity (series 3 image 142-149) * ??New 4 mm solid nodule at the medial aspect of the left lower lobe (series 3 image 156). * ??New 9 mm subsolid nodule at the anterior aspect of the left upper lobe with a 3 mm solid component (series 3 image 125). Pleura: No pleural effusion or pneumothorax. Upper abdomen (limited to upper abdomen, not optimized for abdominal imaging): Cholelithiasis. Unchanged low-density thickening of the left adrenal gland. Chest wall soft tissues: No abnormalities in the chest wall soft tissues. Bones: No suspicious osseous lesion Resulting Agency Comment [id number] Procedure Note Nelson Addison MD - 01/26/2024 CT CHEST WO CONTRAST 01/26/2024 8:17 AM Clinical History/Comments: lung cancer Technique: CT scan of the chest was performed without contrast material. Thin sectionreconstructions were performed. This CT used either dose modulation and/or iterative reconstructiontechniques to lower radiation dose. Comparison: Chest CT 07/23/2023, 11/19/2022 on 05/23/2022. PET/CT 07/26/2022. Findings: Lower neck: Normal. Mediastinum and frannie (non-vascular): No enlarged mediastinal or hilarlymph nodes. The esophagus appears normal. Cardiovascular: Moderate coronary artery calcification. Moderate aorticcalcification. Lungs and airways: * Emphysema. * No significant interval change in spiculated nodular opacity measuring9 mm in the right upper lobe which appears flattened on multiplanarreformations at the site of primary malignancy on the July 2022 PET/CT.Mild adjacent bandlike opacity is also unchanged. * New/increasing branching micronodular opacities inferior to the site ofprimary malignancy in the right upper lobe, favored to reflect infectiousbronchiolitis. * New 7 mm right upper lobe solid nodule (series 3 image 124). * New irregular 8 x 4 mm right upper lobe nodular opacity (series 3 [id number]). * Two new nearby superior segment left lower lobe nodular opacities withsolid components measuring 5 and 6 mm, but with faint adjacent groundglassopacity (series 3 image 142-149) * New 4 mm solid nodule at the medial aspect of the left lower lobe(series 3 image 156). * New 9 mm subsolid nodule at the anterior aspect of the left upper lobewith a 3 mm solid component (series 3 image 125). Pleura: No pleural effusion or pneumothorax. Upper abdomen (limited to upper abdomen, not optimized for abdominalimaging): Cholelithiasis. Unchanged low-density thickening of the leftadrenal gland. Chest wall soft tissues: No abnormalities in the chest wall softtissues. Bones: No suspicious osseous lesion IMPRESSION Multiple new nodular opacities in the right lung as detailed above. Givenmorphology and distribution, favor an infectious process. However, diseaseprogression cannot be excluded. Recommend short-term 1 month follow-upchest CT. [id number] us Kaiser Miller MD IMG CT ORDERABLES Final Result * (ABNORMAL) COMPLETE BLOOD COUNT (12/30/2023 11:45 EDT) WBC 4.67 4.00 - 12.40 K/cmm 12/30/2023 12:52 [facility] RBC 3.25(L) 3.86 - 5.04 M/cmm 12/30/2023 12:52 [facility] Hemoglobin 7.9(L) 11.6 - 15.2 g/dL 12/30/2023 12:52 [facility] HCT 28.1(L) 34.9 - 44.4 % 12/30/2023 12:52 [facility] MCV 87 81 - 98 fL 12/30/2023 12:52 [facility] MCH 24.3(L) 26.7 - 33.3 pg 12/30/2023 12:52 [facility] Hypochromia 1+ 12/30/2023 12:52 [facility] MCHC 28.1(L) 32.1 - 35.9 g/dL 12/30/2023 12:52 [facility] RDW-CV 19.2(H) <14.7 % 12/30/2023 12:52 [facility] RDW-SD 60.9(H) <50.4 fl 12/30/2023 12:52 EDT [facility] Anisocytosis 2+ 12/30/2023 12:52 [facility] PLT 251 141 - 377 K/cmm 12/30/2023 12:52 T [facility] MPV 10.5 9.5 - 12.7 fL 12/30/2023 12:52 EDT [facility] Blood VENOUS BLOOD / Unknown Venipuncture / Unknown 12/30/2023 11:45 EDT 12/30/2023 12:48 EDT Angélica Hernandez MD HEMATOLOGY & PF4 ORDERABLES Teresa l Result Performing Organization Address City/[facility]/ZIP Co de Phone Number [facility] [address] [place] [address] * (ABNORMAL) IRON (12/30/2023 11:45 EDT) Iron 26(L) 37 - 170 ??g/dL 12/30/2023 13:20 EDT [facility] Blood VENOUS BLOOD / Unknown Venipuncture / Unknown 12/30/2023 11:45 EDT 12/30/2023 12:35 EDT Angélica Hernandez MD CHEMISTRY & BLOOD GAS ORDERABLES Final Result Performing Organization Address [facility]/ZIP Co de Phone Number [facility] [address] [place] [address] from Last 3 Months Insurance MEDICARE Member Subscriber Plan / Payer (Ef fective 2017-) Name:Melodie Hodge Member ID:[id number] Relation to Subscriber:Self Name:Melodie Hodge Subscriber ID:[id number] Payer ID:[id number] Group ID:Not on file Type:Medicare GL Address: [address] [facility] Member Subscriber Plan / Payer ( fective 2023-) Name:Melodie Hodge Relation to Subscriber:Self Name:Melodie Hodge Payer ID:[id number] (NAIC) Group ID:Not on file Type:[employer] Address: [place] [id number] MEDICARE Member Subscriber Plan / Payer ( fective 2017-) Name:Melodie Hodge Member ID:[id number] Relation to Subscriber:Self Name:Melodie Hodge Subscriber ID:[id number] Payer ID:[id number] Group ID:Not on file Type:Medicare GL Address: [address] [facility] Advance Directives For more information, please contact: [phone] Documents on File Type Date Recorded Patient Generation Technologist Expl anation Advance Directive 08/13/2022 ct advance directive Care Teams All Source Intelligence Relationship Specialty Start Date End Date Elizabeth Dsouza MD [address] [place] [id number] PCP - General 02/13/12
--- OUTSIDE RECORDS SUMMARY | 2024-03-05 17:39 | XMS_ITS ---
Author Organization [facility] Address [address] [place] [address] Care Team Providers Care Medical Oncology Physician Name Role Phone Elizabeth Dsouza MD Primary Care Provider [phone] Active Problems Patient Care Coordination No te Formatting of this note migh t be different from the original. Patient has given permission for [facility] to verbally discuss the following [...] cell carcinoma of lung, right ([facility]) 08/13/2022 Cancer Staging:Clinical stage from 08/13/2022:Stage IA2(cT1b, cN0, cM0) - Signed by Acosta Alan MD on 08/13/2022 Lung nodule 07/19/2022 Overview (07/19/2022): Added automatically from request for surgery [id number] Current Oncology Plans No current plan information [...]
--- OUTSIDE RECORDS SUMMARY | 2024-03-05 17:39 | XMS_ITS ---
Author Organization Unknown Address [address] [place] [phone] Phone Care Team Providers Care Bail Attacher Name Role Phone MONO Lai Attending Unavailable LEITTIA Gaspar Primary Unavailable Social History Type Status Start Date End Date Code Code Syst em Smoking History Current every day smoker 208016735 SNOMED CT Sex Female Assessment You had [...] Date Status Code Code System NIDDM active 47085856 SNOMED-CT CAD active 28993192 SNOMED-CT MYOCARDIAL INFARCT active 48675095 S NOMED-CT GERD active 251892366 SNOMED-CT DEPRESSION active 64156214 SNOMED-CT HIGH CHOLESTEROL 05/01/2023 resolved 76576181 SN OMED-CT STENTED ARTERY 05/01/2023 resolved 058588962 SNOM ED-CT COPD 05/01/2023 resolved 70505748 SNOMED-CT Allergies and Adverse Reactions Allergy Substance Reaction Severity Start Date Concern Status Code Code Syste m MORPHINE Vomiting (SNOMED-CT: 348078334) Moderate Active 7052 RxNorm LATEX Active 1074499 RxNorm BAND-AID BRAND ADHESIVE BANDAGES BREAK OUT (SNOMED-CT: null) Moderate Active 3979637 RxNorm Plan of Treatment MRI L SPINE [...] Code Sys tem Iron deficiency anemia, unspecified 01/19/2024 SNOMED-CT Personal Care Team Section Performer Name Performer Role Active Date Inactive Da te
--- OUTSIDE RECORDS SUMMARY | 2024-03-05 17:39 | XMS_ITS | Referral Summary ---
Author Organization [facility] Address [address] [place] [address] Care Team Providers Care Warehouse Distribution Associate Name Role Phone Elizabeth Dsouza MD Primary Care Provider [phone] Encounters Date Type Department Care Team Description 03/05/2024 Telephone [facility] Adult Hematology & Oncology [address] [place] [address] Diana C[place]ton Follow-up (Tobacco cessation) 02/27/2024 Documentation Visit [facility] Cancer [address] [address] Divina Penny, RN 02/27/2024 Telephone [facility] Cancer [address] [address] Kaiser Miller MD Appointment Related (Pt interested in seeing Diana for Smoking Cessation - [phone]) 02/27/2024 9:15 EST Nurse Only [facility] Cancer [address] [address] History of lung cancer (Primary Dx) 02/27/2024 9:30 EST Office Visit [facility] Cancer [address] [address] Harmony Trotter MD Malignant neoplasm of upper lobe of right lung (HCC-CMS) (Primary Dx) 02/19/2024 9:49 EST - 02/19/2024 23:59 EST Hospital Encounter [facility] CT Scan [address] [place] [address] Squamous cell carcinoma of lung, right (HCC-CMS) Discharge Disposition: Home or Self Care 02/06/[address] [facility] [address] [place] [address] Divina Penny, ABEL 02/06/2024 9:00 EST Office Visit [facility] Cancer [facility] [address] [place] [address] Khris Watson MD Squamous cell carcinoma of lung, right (HCC-CMS) (Primary Dx) 01/26/2024 8:15 EST - 01/26/2024 23:59 EST Hospital Encounter [facility] CT Scan [address] [place] [address] Malignant neoplasm of right lung, unspecified part of lung ([facility]-CMS) Discharge Disposition: Home or Self Care 12/30/2023 Telephone [facility] Gastroenterology [address] [place] [address] Angélica Hernandez MD Results 12/30/2023 11:[address] [facility] - Outpatient Phlebotomy Drawing [address] [place] [address] Lab, [facility] Op Phlebotomy Iron deficiency anemia due to chronic blood loss; Iron deficiency 12/30/2023 Documentation Visit [facility] Gastroenterology [address] [place] [address] Angélica Hernandez MD Iron deficiency anemia due to chronic blood loss (Primary Dx); Iron deficiency from Last 3 Months Allergies Active Allergy [...] original. Patient has given permission for [facility] to verbally discuss the following [...] (07/19/2022): Added automatically from request for surgery [id number] Social History Tobacco Use Types Packs/Day Years [...] Rate 16 12/04/20232124 EDT Oxygen Saturation 98% 02/27/2024 0921 EST Inhaled Oxygen Concentration - - Weight 65.2 kg (143 lb 12.8 oz) 02/27/2024 0921 EST Height 157.5 cm (5' 2) 12/04/20231933 EDT Body Mass Index 26.3 12/04/20231933 EDT Functional Status * Are you deaf or do you have serious difficulty hearing? Answer Date of Assessment Author No 12/28/2021 16:46 EDT Héctor Boyd RN * Because of a physical, mental, or emotional condition, does this person have difficulty doing errands alone such as visiting a doctor's office or shopping? Answer Date of Assessment Author No 08/05/2022 14:47 EDT Mental Status * Because of a physical, mental, or emotional condition, does this person have serious difficulty concentrating, remembering, or making decisions? Answer Entry Date Author No 08/05/2022 14:47 EDT Plan of Treatment Upcoming Encounters Date Type Department Care Team (Late st Contact Info) Description 04/06/2024 9:30 EST Appointment [facility] Endoscopy [address] [place] [address] Angélica Hernandez MD [address] [address] 05/19/2024 13:30 EST Appointment [facility] Endoscopy [address] [place] [address] Angélica Hernandez MD [address] [phone] 05/28/2024 14:15 EDT Nurse Only [facility] Cancer Treatment [place] [address] [place], [place] [phone] 05/28/2024 14:30 EDT Office Visit [facility] Cancer [address] [address] Kaiser Miller MD 111 [facility] 2 [place] [address] Procedures Procedure Name Priority Date/Time Associated Diagnosis [...] either resolved or have decreased in size. [id number] Narrative 02/19/2024 10:[address] CHEST WO [...] previously FDG avid. ?? Resulting Agency Comment [id number] Procedure Note Nelson [place] MD - 02/19/2024 [...] inferior to the site of treated malignancy ( image 133). Note that this is new [...] either resolved or have decreased in size. [id number] us Khris Watson MD [facility] [place] ORDERABLES Final Result * CT CHEST WO CONTRAST (01/26/2024 8:30 EST) Anatomical Region Laterality Modality Chest Computed Tomogra phy 01/26/2024 11:0 3 EST Impressions 01/26/2024 11:03 EST Multiple new nodular opacities in the right lung as detailed above. Given morphology and distribution, favor an infectious process. However, disease progression cannot be excluded. Recommend short-term 1 month follow-up chest CT. [id number] Narrative 01/26/2024 11:[address] CHEST WO [...] No suspicious osseous lesion Resulting Agency Comment [id number] Procedure Note Nelson [place] MD - 01/26/2024 [...] right upper lobe nodular opacity (series 3 [id number]). * Two new nearby superior segment left [...] excluded. Recommend short-term 1 month follow-upchest CT. [id number] us Kaiser Miller MD IMG CT ORDERABLES Final Result * (ABNORMAL) COMPLETE BLOOD COUNT (12/30/2023 11:45 EDT) WBC 4.67 4.00 - 12.40 K/cmm 12/30/2023 12:52 EDT LAB[facility] RBC 3.25(L) 3.86 - 5.04 M/cmm 12/30/2023 12:52 [facility] Hemoglobin 7.9(L) 11.6 - 15.2 g/dL 12/30/2023 12:52 [facility] HCT 28.1(L) 34.9 - 44.4 % 12/30/2023 12:52 [facility] MCV 87 81 - 98 fL 12/30/2023 12:52 [facility] MCH 24.3(L) 26.7 - 33.3 pg 12/30/2023 12:52 [facility] Hypochromia 1+ 12/30/2023 12:52 [facility] MCHC 28.1(L) 32.1 - 35.9 g/dL 12/30/2023 12:52 [facility] RDW-CV 19.2(H) <14.7 % 12/30/2023 12:52 [facility] RDW-SD 60.9(H) <50.4 fl 12/30/2023 12:52 [facility] Anisocytosis 2+ 12/30/2023 12:52 [facility] PLT 251 141 - 377 K/cmm 12/30/2023 12:52 [facility] MPV 10.5 9.5 - 12.7 fL 12/30/2023 12:52 [facility] Blood VENOUS BLOOD / Unknown Venipuncture / Unknown 12/30/2023 11:45 EDT 12/30/2023 12:48 EDT us Angélica Hernandez MD HEMATOLOGY & PF4 ORDERABLES Teresa khari Result LAB[facility] SERVICES [address] [place] [address] * (ABNORMAL) IRON (12/30/2023 11:45 EDT) Iron 26(L) 37 - 170 ??g/dL 12/30/2023 13:20 EDT LAB[facility] SERVICES Blood VENOUS BLOOD / Unknown Venipuncture / Unknown 12/30/2023 11:45 EDT 12/30/2023 12:35 EDT Angélcia Hernandez MD CHEMISTRY & BLOOD GAS ORDERABLES Final Result LAB[facility] [address] [place] [address] from Last 3 Months Insurance MEDICARE [facility] MEDICARE [facility] Advance Directives For more information, please contact: [phone] Documents on File Type Date Recorded Patient Principal Technical Specialist Expl anation Advance Directive 08/13/2022 vt advance directive Care Teams Warehouse Distribution Associate Relationship Specialty Start Date End Date Elizabeth Dsouza MD [address] [place] [phone] PCP - General 02/13/12
--- OUTSIDE RECORDS SUMMARY | 2024-03-05 17:40 | XMS_ITS | Encounter Summary ---
Author Organization [facility] Address [address] [place] [address] Care Team Providers Care Hogshead Mat Assembler Name Role Phone Elizabeth Dsouza MD Primary Care Provider [phone] Reason for Visit * Reason Onset Date Comments Appointment Related 02/27/2024 Pt intereste d in seeing Diana for Smoking Cessation - [phone] Encounter Details Date Type Department Care Team (Late st Contact Info) Description 02/27/2024 Telephone [facility] Cancer Treatment [address] [address] Kaiser Miller MD 111 [facility] [place] [address] [place] [address] Appointment Related (Pt interested in seeing Diana for Smoking Cessation - [phone]) Social History Tobacco Use Types Packs/Day Years [...] documented as of this encounter Functional Status * Are you deaf or do you have serious difficulty hearing? Answer Date of Assessment Author No 12/28/2021 16:46 EDT Héctor Boyd, ABEL * Because of a physical, mental, or emotional condition, does this person have difficulty doing errands alone such as visiting a doctor's office or shopping? Answer Date of Assessment Author No 08/05/2022 14:47 EDT documented as of this encounter Mental Status * Because of a physical, mental, or emotional condition, does this person have serious difficulty concentrating, remembering, or making decisions? Answer Entry Date Author No 08/05/2022 14:47 EDT documented in this encounter Miscellaneous Notes * Telephone Encounter - Diana [place] - 03/05/2024 1426 EST Called pt - no ans, left vm requesting call back. * Telephone Encounter - Judie Robertson - 02/27/2024 0927 EST Pt interested in seeing Diana for Smoking Cessation - [phone] Pt [facility] at [facility] Rad Onc for a f/u. She returns on 05/29/23 for another f/u after a CT. documented in this encounter Plan of Treatment Upcoming Encounters Date Type Department Care Team (Late st Contact Info) Description 04/06/2024 9:[address] [facility] Endoscopy [address] [place], [place] [address] Angélica Hernandez MD [address] [place] [phone] 05/19/2024 13:[address] [facility] Endoscopy [address] [place], [place] [phone] Angélica Hernandez MD [address] [place] [phone] 05/28/2024 14:15 EDT Nurse Only [facility] Cancer [facility] [address] [place], [place] [address] 05/28/2024 14:30 EDT Office Visit [facility] Cancer [facility] [address] [place], [place] [address] Kaiser Miller MD [address] [place] [address] [address] [place] [address] documented as of this encounter Visit Diagnoses Not on filedocumented in this encounter Care Teams Hogshead Mat Assembler Relationship Specialty Start Date End Date Elizabeth Dsouza MD [address] [place] [phone] PCP - General 02/13/12 documented as of this encounter
--- OUTSIDE RECORDS SUMMARY | 2024-03-05 17:40 | XMS_ITS | Encounter Summary ---
Author Organization [facility] Address [address] [place] [address] Care Team Providers Care Oven Tender Bagels Name Role Phone Elizabeth Dsouza MD Primary Care Provider [phone] Reason for Referral * Referral (Routine/Next Available) - Authorization Not Required Specialty Diagnoses / Procedures Referred By Loli rose Referred To Contact Diagnoses Dysphagia, unspecified type Procedures UPPER ENDOSCOPY (EGD) Elizabeth Dsouza MD [address] [place] [phone] Phone: tel: fax: Referral ID Status Reason Start Date Expiration Date Visits Requested Visits Authorized [id number] Authorization Not Required 05/02/2023 1 1 Reason for Visit * Auth/Cert (Routine) Specialty Diagnoses / Procedures [facility] Referred To Contact Referral ID Status Reason Start Date Expiration Date Visits Re quested Visits Authorized [id number] 1 1 Encounter Details Date Type Department Care Team (Late st Contact Info) Description 10/01/2023 9:23 EDT - 10/01/2023 23:59 EDT Hospital Encounter [facility] [place] [place] [address] [place] [address] Angélica Hernandez MD [address] [address] Dysphagia, unspecified type Discharge Disposition: [...] EDT documented in this encounter Functional Status * Are you [...] 08/05/2022 14:47 EDT documented in this encounter Medications at Time of Discharge albuterol 90 mcg/actuation inhaler Inhale 2 Puffs as directed every 4 hours as needed for Wheezing. aspirin chewable 81 mg tablet Take 1 Tablet by mouth daily. cilostazoL (PLETAL) 100 mg tablet Take 1 Tablet by mouth daily. famotidine (PEPCID) 20 mg tablet Take 1 Tablet by mouth every morning. HYDROcodone-aceta minophen (NORCO) 5-325 mg tablet Take 1 Tablet [...] & Physical Date: 10/01/2023 Time: 12:25 Location: [facility] Endoscopy Planned Procedure: Upper Endoscopy Chief [...] 2 JÚNIOR COPD (chronic obstructive pulmonary disease) ([facility]) 07/23/22- well controlled w/ use of [...] Contact Info) Description 04/06/2024 9:30 EST Appointment [facility] Endoscopy [address] [place] [address] Angélica Hernandez MD [address] [phone] 05/19/2024 13:30 EST Appointment [facility] Endoscopy [address] [place], [place] [address] Angélica Hernandez MD [address] [phone] 05/28/2024 14:15 EDT Nurse Only [facility] [place] [address] [place], [place] [address] 05/28/2024 14:30 EDT Office Visit [facility] [place] [address] [place], [place] [address] Kaiser Miller MD 111 [facility] 2 [place] [address] documented as of this encounter Procedures Procedure Name Priority Date/Time Associated Diagnosis Comments ECG REPORT - SCANNED 10/03/2023 11:20 EDT SURGICAL PATHOLOGY Routine 10/01/2023 12 :41 EDT Dysphagia, unspecified type UPPER ENDOSCOPY (EGD) Routine 10/01/2023 10:30 EDT Dysphagia, unspecified type documented in this encounter Results * ECG REPORT - SCANNED (10/03/2023 11:20 EDT) 10/03/2023 11:2 0 EDT us Scan 2 [employer] PROCEDURE/MINOR SURGICAL OR DERABLES Final Result * SURGICAL PATHOLOGY (10/01/2023 12:41 EDT) Note to Patient The following pathology results have been interpreted by your pathologist and may be available to you before your health provider has had the opportunity to review them. Please allow time for your provider to receive these results and explore management options, if applicable. 10/02/2023 14:48 [facility] Final Diagnosis A. DISTAL ESOPHAGUS BIOPSY: - Squamous mucosa with mild chronic inactive esophagitis and reactive changes. - Negative for eosinophilia. B. PROXIMAL ESOPHAGUS BIOPSY: - Squamous mucosa with mild chronic inactive esophagitis and reactive changes. - Negative for eosinophilia. 10/02/2023 14:48 [facility] Attestation By the signature below, the attending physician certifies that they have 1) personally conducted a gross and/or microscopic examination of the described specimen(s), and/or personally interpreted the results of laboratory testing of the described specimen(s), and 2) personally rendered or confirmed the above diagnosis. 10/02/2023 14:48 [facility] at 1448 Clinical History Dysphagia, unspecified type 10/02/2023 14:48 [facility] Gross Description A. Received in formalin with, Melodie L Clifford and, esophagus Bx distal with forceps and consists of 2 portions of pale franco tissue, 3 mm and 4 x 3 x 2 mm. In toto, A1. B. Received in formalin with, Melodie Joelle Clifford and, esophagus Bx proximal with forceps and consists of a 5 x 3 x 2 mm portion of pale franco tissue. In toto, B1. CHENG LEIVA(ASCP) 10/01/2023 14:41 10/02/2023 14:48 EDT [facility] Performing Lab [facility] [place] [place] [facility] 10/02/2023 14:48 EDT [facility] Scanned Images 10/02/2023 14:48 EDT [facility] Tissue ESOPHAGEAL STRUCTURE / Unknown 10/01/2023 12:41 EDT 10/01/2023 14:31 EDT Tissue specimen (specimen) ESOPHAGEAL STRUCTURE / Unknown 10/01/2023 12:41 EDT 10/01/2023 14:31 EDT us Angélica Hernandez MD PATHOLOGY ORDERABLES Final Resul t [facility] [address] [place] [address] * UPPER ENDOSCOPY (EGD) (10/01/2023 10:30 EDT) Anatomical Region Laterality Modality Endoscopy Narrative 10/01/2023 10:30 EDT [facility] ?? [address] [address] ?? Patient Name ?MELODIE CLIFFORD Date of ?1955 Record Number ?[id number] Date/Time of Procedure ?10/01/2023, 10:30:00 AM Endoscopist ?Angélica Hernandez MD ?? Cryptography Teacher ? Referring Physician(s) ?? Elizabeth Meet , M.D. Anesthesiologist ? Procedure Performed: Upper Endoscopy (EGD) Indications for Exam: dysphagia, melena Instruments: ? [id number] ([id number]) Medications: ?Fentanyl 100 mcg, Versed 5 mg, [...] MD M.D. Elizabeth Dsouza MD GI PROCEDURE ORDERABLES Final Result documented in this encounter Visit Diagnoses Diagnosis [...] 09/30 documented in this encounter Care Teams Oven Tender Bagels Relationship Specialty Start Date End Date Elizabeth Dsouza MD [address] [place] [phone] PCP - General 02/13/12 documented as of this encounter
--- OUTSIDE RECORDS SUMMARY | 2024-03-05 17:40 | XMS_ITS | Encounter Summary ---
Author Organization [facility] Address [address] [place] [address] Care Team Providers Care Asphalt Paving Supervisor Name Role Phone Elizabeth Dsouza MD Primary Care Provider [phone] Reason for Referral * Radiology Services (Routine/Next Available) - Authorization Not Required Specialty Diagnoses / Procedures [facility] Referred To Contact Diagnoses Squamous cell carcinoma of lung, right (HCC-CMS) Procedures CT CHEST WO CONTRAST Kaiser Miller MD Phone: tel: fax: [facility] Referral ID Status Reason Start Date Expiration Date Visits Requested Visits Authorized [id number] Authorization Not Required 06/16/2023 1 1 Reason for Visit * Reason Onset Date Comments Follow-up 06/16/2023 Encounter Details Date Type Department Care Team (Late st Contact Info) Description 06/16/2023 Orders Only [facility] [address] [place] [address] Kaiser Miller MD 111 [facility], Level 2 [place] [address] Squamous cell carcinoma of lung, [...] 08/05/2022 14:47 EDT documented in this encounter Progress Notes * Kaiser Miller MD - 06/16/[address] Chest - assess radiation treatment response documented in this encounter Plan of Treatment Upcoming Encounters Date Type Department Care Team (Late st Contact Info) Description 04/06/2024 9:30 EST Appointment [facility] Endoscopy [address] [place] [address] Angélica Hernandez MD [address] [place] [phone] 05/19/2024 13:30 EST Appointment [facility] Endoscopy [address] [place], [place] [address] Angélica Hernandez MD [address] [phone] 05/28/2024 14:15 EDT Nurse Only [facility] Cancer Treatment [place] [address] [place] [address] 05/28/2024 14:30 EDT Office Visit [facility] Cancer [facility] [address] [place] [address] Kaiser Miller MD [address] [place] [address] 2 [place] [address] documented as of this encounter Results * [...] REGARDING THIS REPORT PLEASE CALL [facility] AT [phone] Narrative 07/23/2023 18:50 EDT PROCEDURE INFORMATION: Exam: [...] CONCERNS REGARDING THIS REPORT PLEASE CALL [facility] [phone] us Kaiser Miller MD IMG CT ORDERABLES Final Result documented in this encounter Visit Diagnoses Diagnosis Squamous cell carcinoma of lung, right (HCC-CMS)- Primary Squamous cell carcinoma of lung, right (HCC-CMS) documented in this encounter Care Teams Asphalt Paving Supervisor Relationship Specialty Start Date End Date Elizabeth Dsouza MD [address] [place] [phone] PCP - General 02/13/12 documented as of this encounter
--- OUTSIDE RECORDS SUMMARY | 2024-03-05 17:40 | XMS_ITS | Encounter Summary ---
Author Organization [facility] Address [address] [place] [address] Care Team Providers Care Police Service Technician Name Role Phone Elizabeth Dsouza MD Primary Care Provider Encounter Details Date Type Department Care Team (Late st Contact Info) Description 11/29/2022 Documentation Visit [facility] Cancer Treatment [place] [address] [place] [address] Divina Penny, ABEL Social History Tobacco Use Types Packs/Day [...] documented in this encounter Progress Notes * Divina Penny, [...] Contact Info) Description 04/06/2024 9:30 EST Appointment [facility] Endoscopy [address] [place] [address] Angélica Hernandez MD [address] [phone] 05/19/2024 13:30 EST Appointment [facility] Endoscopy [address] [place] [address] Angélica Hernandez MD [address] [place] [phone] 05/28/2024 14:15 EDT Nurse Only [facility] Treatment [place] [address] [place], [place] [address] 05/28/2024 14:30 EDT Office Visit [facility] Treatment [address] [address] Kaiser Miller MD 111 [facility] 2 [place] [address] documented as of this encounter Visit Diagnoses Not on filedocumented in this encounter Care Teams Police Service Technician Relationship Specialty Start Date End Date Elizabeth Dsouza MD [address] [place] [phone] PCP - General 02/13/12 documented as of this encounter
--- OUTSIDE RECORDS SUMMARY | 2024-03-05 17:40 | XMS_ITS | Encounter Summary ---
Author Organization [facility] Address [address] [place] [address] Care Team Providers Care Senior Sales Consultant Name Role Phone Elizabeth Dsouza MD Primary Care Provider [phone] Encounter Details Date Type Department Care Team (Late st Contact Info) Description 02/27/2024 Documentation Visit [facility] Cancer Treatment [place] [address] [place] [address] Divina Penny, ABEL Social History Tobacco Use [...] Progress Notes * Divina Penny, RN - 02/27/2024 1044 EST Yesy in for a follow up with following a lung CT scan. Yesy notes a loose and occasionally productive cough, she is raising clear sputum; she denies any hemoptysis. Yesy continues tosmoke 1.5-2 ppd. She states her insurance will not cover patches and she has also tried to get themthrough 802 QUIT and was unsuccessful. A referral was sent via secure chat to Diana [place] to be in touch with Yesy. documented in this encounter Plan of Treatment Upcoming Encounters Date Type Department Care Team (Late st Contact Info) Description 04/06/2024 9:30 EST Appointment [facility] Endoscopy [address] [place] [address] Angélica Hernandez MD [address] [place] [phone] 05/19/2024 13:30 EST Appointment [facility] Endoscopy [address] [place] [address] Angélica Hernandez MD [address] [phone] 05/28/2024 14:15 EDT Nurse Only [facility] [place] [address] [place], [place] [address] 05/28/2024 14:30 EDT Office Visit [facility] Cancer Treatment [place] [address] [place], [place] [address] Kaiser Miller MD 111 [facility], Level 2 [place] [address] documented as of this encounter Visit Diagnoses Not on filedocumented in this encounter Care Teams Senior Sales Consultant Relationship Specialty Start Date End Date Elizabeth Dsouza MD [address] [place] [phone] PCP - General 02/13/12 documented as of this encounter
--- OUTSIDE RECORDS SUMMARY | 2024-03-05 17:40 | XMS_ITS | Encounter Summary ---
Author Organization [facility] Address [address] [place] [id number] Care Team Providers Care Perch Machine Inspector Name Role Phone Elizabeth Dsouza MD Primary Care Provider [phone] Reason for Referral * Referral (Routine/Next Available) - Authorization Not Required Specialty Diagnoses / Procedures Referred By Loli rose Referred To Contact Diagnoses Iron deficiency anemia due to chronic blood loss Procedures COLONOSCOPY Angélica Hernandez MD [address] [place] [phone] Phone: tel: fax: [place] [address] Phone: tel: fax: Referral ID Status Reason Start Date Expiration Date Visits Requested Visits Authorized [id number] Authorization Not Required 4 1 1 * Referral (Routine/Next Available) - Receiving Office to Obtain Authorization Specialty Diagnoses / Procedures Referred By Loli rose Referred To Contact Diagnoses Iron deficiency anemia due to chronic blood loss Procedures ENTEROSCOPY Angélica Hernandez MD [address] [place] [phone] Phone: tel: fax: [facility] [address] [place] [address] Phone: tel: fax: Referral ID Status Reason Start Date Expiration Date Visits Requested Visits Authorized [id number] Receiving Office to Obtain Authorization 4 1 1 Encounter Details Date Type Department Care Team (Late st Contact Info) Description 12/30/2023 Documentation Visit [facility] [address] [place] [id number] Angélica Hernandez MD [address] [place] [phone] Iron deficiency anemia due to chronic blood loss (Primary Dx); Iron deficiency Social History Tobacco Use Types Packs/Day Years Used Date Smoking Tobacco: Every Day Cigarettes 1 55 Started: 1968 Passive Smoke Exposure: Never Smokeless [...] 08/05/2022 14:47 EDT documented in this encounter Ordered Prescriptions Prescription Sig Dispense Quantity Refills Last Filled Start Date End Date polyethylene glycol (GOLYTELY) 236-22.74-6.74 -5.86 gram solution Dissolve mixture and drink as directed prior to procedure (see provided instructions). 4000 mL 01/02/2024 5 documented in this encounter Progress Notes * Angélica Hernandez MD - 12/30/2023 1050 EDT [facility] Follow-Up Visit Referring Provider: Elizabeth Dsouza Patient Summary: Melodie Hodge is a 68 year old female with tobacco use disorder, SCC of R lung,referred to GI for iron deficiency anemia and dysphagia EGD done on 10/01/23 showed normal mucosa throughout UGI tract. Biopsies done in esophagus with mildinflammation only. 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 We discussed these results at today's visit and I explained that her ongoing anemia may be due to intermittent oozing of AVMs. Yesy did note that she has felt more fatigued than usual over the last month and reports dry mouth, which she noticed when she was anemia previously when anemic. Has not noticed overt black, tarry stools, hematochezia, or other signs of GIB. ROS: A 10-point ROS was performed and is negative except for what is detailed above. Current Outpatient Medications: cholecalciferol, Vitamin D3, 25 mcg (1,000 unit) tablet, Take 5,000 Units by mouth daily. (Patient not taking: Reported on 02/27/2022), Disp: , Rfl: cyanocobalamin (VITAMIN B-12) 500 mcg tablet, Take 500 mcg by mouth daily. (Patient not taking: Reported on 02/27/2022), Disp: , Rfl: mesalamine (CANASA) 1,000 mg suppository, Place 1 Suppository rectally at bedtime., Disp: 90 Suppository, Rfl: 2 MULTI-VITAMIN ORAL, Take 1 Tab by mouth daily. (Patient not taking: No sig reported), Disp: , Rfl: polyethylene glycol (GOLYTELY) 236-22.74-6.74 -5.86 gram suspension, Follow instructions on 'colonoscopy preparation instructions' sheet. (Patient not taking: No sig reported), Disp: 1 Bottle, Rfl: 0 VS WT 146lb, BP 142/60, HR 80, O2 99 onRA Physical Exam: General: In NAD, Appropriately conversant HEENT: NCAT, PERRL, MMM CV: RRR, no m/r/c/g Resp: CTAB, comfortable on RA Abdomen: nondistended, +BS, soft, nontender to palpation, no HSM appreciated Ext: no edema, no ecchymoses or rashes Labs and Imaging: Lab Results Component Value Date ALT 13 12/04/2023 AST 20 12/04/2023 ALKPHOS 68 12/04/2023 TBIL 1.3 12/04/2023 LABALBU 4.2 12/04/2023 CREATININE 1.49 (H) 12/04/2023 NA 139 12/04/2023 WBC 4.62 12/04/2023 HGB 7.6 (L) 12/04/2023 HCT 27.6 (L) 12/04/2023 MCV 86 12/04/2023 PLT 239 12/04/2023 INR 1.2 (H) 12/04/2023 Impression: Melodie Hodge is a 68 year old female with tobacco use disorder, SCC of R lung, referred to GI for iron deficiency anemia and dysphagia. EGD 10/01/23 overall normal, with esophageal biopsies showing inactive esophagitis. Capsule endoscopy 10/22/23 showed proximal small bowel AVMs. Further plan as outlined below Plan: -recheck CBC, iron today. If Hgb continues to be low and if iron is low, will plan to reach out to PCP for IV iron infusion. -enteroscopy with IV sedation in ~2 months to APC the AVMs -colonoscopy given anemia to rule out other potential etiologies- patient does not have a recent colonoscopy on file Angélica Hernandez MD documented in this encounter Plan of Treatment Upcoming Encounters Date Type Department Care Team (Late st Contact Info) Description 04/06/2024 9:30 EST Appointment [facility] Endoscopy [address] [place] [address] Angélica Hernandez MD [address] [place] [phone] 05/19/2024 13:30 EST Appointment [facility] Endoscopy [address] [place], [place] [phone] Angélica Hernandez MD [address] [phone] 05/28/2024 14:15 EDT Nurse Only [facility] [address] [place] [address] 05/28/2024 14:30 EDT Office Visit [facility] [address] [place] [address] Kaiser Miller MD 111 [facility] [address] [place] [phone] Scheduled Orders Name Type Priority Associated Diagnoses Orde r Schedule ENTEROSCOPY GI Routine Iron deficiency anemia due to chronic blood loss Expected: 01/30/2024 (Approximate), Expires: 06/29/2025 COLONOSCOPY GI Routine Iron deficiency anemia due to chronic blood loss Expected: 02/02/2024 (Approximate), Expires: 07/02/2025 documented as of this encounter Results * (ABNORMAL) IRON (12/30/2023 11:45 EDT) Iron 26(L) 37 - 170 ??g/dL 12/30/2023 13:20 EDT [facility] Blood VENOUS BLOOD / Unknown Venipuncture / Unknown 12/30/2023 11:45 EDT 12/30/2023 12:35 EDT us Angélica Hernandez MD CHEMISTRY & BLOOD GAS ORDERABLES Final Result [facility] [address] [place] [address] * (ABNORMAL) COMPLETE BLOOD COUNT (12/30/2023 11:45 EDT) WBC 4.67 4.00 - 12.40 K/cmm 12/30/2023 12:52 [facility] RBC 3.25(L) 3.86 - 5.04 M/cmm 12/30/2023 12:52 [facility] Hemoglobin 7.9(L) 11.6 - 15.2 g/dL 12/30/2023 12:52 [facility] HCT 28.1(L) 34.9 - 44.4 % 12/30/2023 12:52 [facility] MCV 87 81 - 98 fL 12/30/2023 12:52 [facility] MCH 24.3(L) 26.7 - 33.3 pg 12/30/2023 12:52 [facility] Hypochromia 1+ 12/30/2023 12:52 [facility] MCHC 28.1(L) 32.1 - 35.9 g/dL 12/30/2023 12:52 [facility] RDW-CV 19.2(H) <14.7 % 12/30/2023 12:52 [facility] RDW-SD 60.9(H) <50.4 fl 12/30/2023 12:52 [facility] Anisocytosis 2+ 12/30/2023 12:52 [facility] PLT 251 141 - 377 K/cmm 12/30/2023 12:52 [facility] MPV 10.5 9.5 - 12.7 fL 12/30/2023 12:52 [facility] Blood VENOUS BLOOD / Unknown Venipuncture / Unknown 12/30/2023 11:45 EDT 12/30/2023 12:48 EDT us Angélica Hernandez MD HEMATOLOGY & PF4 ORDERABLES Teresa lucia Result [facility] [address] [place] [address] documented in this encounter Visit Diagnoses Diagnosis Iron deficiency anemia due to chronic blood loss- Primary Iron deficiency anemia secondary to blood loss (chronic) Iron deficiency Iron deficiency anemia, unspecified documented in this encounter Care Teams Perch Machine Inspector Relationship Specialty Start Date End Date Elizabeth Dsouza MD [address] [place] [phone] PCP - General 02/13/12 documented as of this encounter
--- OUTSIDE RECORDS SUMMARY | 2024-03-05 17:40 | XMS_ITS | Encounter Summary ---
Author Organization [facility] Address [address] [place] [address] Care Team Providers Care Business Consult Name Role Phone Elizabeth Dsouza MD Primary Care Provider [phone] Reason for Referral * Radiology Services (Routine/Next Available) - Authorization Not Required Specialty Diagnoses / Procedures [facility] Referred To Contact Diagnoses Squamous cell carcinoma of lung, right (HCC-CMS) Procedures CT CHEST WO CONTRAST Khris Watson MD [address] [place] [phone] Phone: tel: fax: [facility] Referral ID Status Reason Start Date Expiration Date Visits Requested Visits Authorized [id number] Authorization Not Required 4 1 1 Reason for Visit * Reason Comments Lung Cancer Encounter Details Date Type Department Care Team (Late st Contact Info) Description 02/06/2024 9:00 EST Office Visit [facility] [address] [place], [place] [phone] Khris Watson MD [address] [place] [phone] Squamous cell carcinoma of lung, right [...] Sign Reading Time Taken Comments Blood Pressure 112/54 02/06/2024 0858 EST Pulse 80 02/06/2024 0858 EST Temperature - - Respiratory Rate - - Oxygen Saturation 99% 02/06/2024 0858 EST Inhaled Oxygen Concentration - - Weight 65.8 kg (145 lb) 02/06/2024 0858 EST Height - - Body Mass Index 26.52 12/04/2023 1934 EDT documented in this encounter Functional Status [...] documented in this encounter Progress Notes * Khris Watson MD - 02/06/2024 0900 EST DIVISION OF RADIATION ONCOLOGY FOLLOW-UP NOTE DATE OF SERVICE: 02/06/2024 Diagnosis: Cancer Staging Squamous cell carcinoma of lung, right ([facility]CC[facility]) Staging form: Lung, AJCC 8th Edition - [...] Dose given: 5,400 cGy Elapsed Days: 5 SUBJECTIVE: Melodie Hodge returns to the office having recently had a CT scan of her chest. She states that she has had no recent changes in her pulmonary symptomatology. She has a baseline chronic cough. She has noticed no significant change in dyspnea, she has had no chest pain. She has had nofevers. She is receiving blood transfusions and iron infusions intermittently for what are described as AVMs in her esophagus. She has no other specific localizing complaints. MEDICATIONS: Current Outpatient Medications Medication albuterol 90 mcg/actuation inhaler aspirin chewable 81 mg tablet cilostazoL (PLETAL) 100 mg tablet famotidine (PEPCID) 20 mg tablet HYDROcodone-acetaminophen (NORCO) 5-325 mg tablet losartan (COZAAR) 25 mg tablet nitroglycerin (NITROSTAT) 0.4 mg SL tablet omeprazole (PRILOSEC) 20 mg capsule polyethylene glycol (GOLYTELY) 236-22.74-6.74 -5.86 gram solution pregabalin (LYRICA) 50 mg capsule rosuvastatin (CRESTOR) 10 mg tablet tiotropium (SPIRIVA) 18 mcg inhalation capsule traZODone (DESYREL) 50 mg tablet No current facility-administered medications for this visit. OBJECTIVE: BP 112/54 (BP Cuff Location: Left arm) Pulse 80 Wt 65.8 kg (145 lb) SpO2 99% BMI 26.52 kg/m?? General: Very pleasant and cooperative woman in no acute distress.HEENT: Unremarkable. Neck: Supple. Nodes: No palpable cervical, supra-clavicular or axillary adenopathy. Back: Nontender to percussion. Lungs: Clear to auscultation. Heart: Regular rhythm. Data: CT scan of the chest done on January 26, 2024 revealed stable findings following stereotactic body radiation therapy to her right upper lobe spiculated opacity. New micronodular opacities in the region of the malignancy favoring bronchiolitis as well as multiple other subcentimeter nodules in the right lung were identified. The report states that given their morphology and distribution andinfectious process was favored although short-term 1 month follow-up was recommended. Performance Status: KPS Score ECOG Grade Definition x 90-100 [...] selfcare; totally confined to bed or chair IMPRESSION AND PLAN: Melodie Hodge has had a change in her CT findings, she has no respiratory symptoms suggestive of infection at this point. I did call her primary care providers office, Dr. Elizabeth Dsouza and spoke with the triage nurse. I informed them of the findings on her CAT scan but in the absence of any worrisome pulmonary symptoms most likely we will follow her without treatment at this point. I will schedule her for follow-up in this office in 1 month with a repeat CT scan at that time. I spent a total of 20 minutes on the date of this encounter meeting with the patient and reviewing documentation/coordinating care as described in the above note. Khris Watson MD This note has been prepared with voice recognition software. Please excuse copyright manager errors. documented in this encounter Plan of Treatment Upcoming Encounters Date Type Department Care Team (Late st Contact Info) Description 04/06/2024 9:30 EST Appointment [facility]oscopy [address] [place], [place] [phone] Angélica Hernandez MD [address] [place] [phone] 05/19/2024 13:30 EST Appointment [facility] Endoscopy [address] [place] [address] Angélica Hernandez MD [address] [phone] 05/28/2024 14:15 EDT Nurse Only [facility] [address] [place] [address] 05/28/2024 14:30 EDT Office Visit [facility] [address] [place] [address] Kaiser Miller MD 111 [facility] [address] [place] [phone] documented as of this encounter Results * CT CHEST WO CONTRAST (02/19/2024 [...] either resolved or have decreased in size. [id number] Narrative 02/19/2024 10:[address] CHEST WO [...] previously FDG avid. ?? Resulting Agency Comment [id number] Procedure Note Nelson Addison MD - 02/19/2024 [...] inferior to the site of treated malignancy ([id number] image 133). Note that this is new [...] either resolved or have decreased in size. [id number] Khris Watson MD IMG CT ORDERABLES Final Result documented in this encounter Visit Diagnoses Diagnosis Squamous cell carcinoma of lung, right (HCC-CMS)- Primary Squamous cell carcinoma of lung, right (HCC-CMS) documented in this encounter Care Teams Business Consult Relationship Specialty Start Date End Date Elizabeth Dsouza MD [address] [place] [phone] PCP - General 02/13/12 documented as of this encounter
--- OUTSIDE RECORDS SUMMARY | 2024-03-05 17:40 | XMS_ITS | Encounter Summary ---
Author Organization [facility] Address [address] [place] [address] Care Team Providers Care Customer Order Clerk Name Role Phone Elizabeth Dsouza MD Primary Care Provider [phone] Reason for Visit * Reason Comments Anemia Seen at [facility] today and was called back for low Iron lab results // reports dark stool x 2+ months with capsule endo 2 months ago Encounter Details Date Type Department Care Team (Late st Contact Info) Description 12/04/2023 20:26 EDT - 12/04/2023 21:36 EDT Emergency [facility] Emergency Department [address] [place] [address] Anika Martinez MD 111 [facility], Level 1 [place] [address] Anemia, unspecified type (Primary Dx) [...] 08/05/2022 14:47 EDT documented in this encounter Discharge Instructions * Discharge Instructions* [...] be sent through Care Everywhere. * Anemia (Tajik) documented in this encounter Medications at Time [...] Means Destination Comment s Home or Self Long-Term documented in this encounter ED Notes * Belkis Beltran RN - 12/04/20232038 EDT Blood drawn via saline lock per protocol, rainbow and pink tube(s) sent to lab per order. * Anika Martinez MD - 12/04/20231756 EDT Emergency Department Visit Medical Decision Making 68-year-old female with history of CKD, squamous cell carcinoma of the lung, CKD, here for what shethinks is an iron infusion. Patient had been seen at the [facility] today as patient has been [...] arrange to have a iron infusion at [facility]. I once ag cathie offered [...] that her hemoglobin was 6.4 at the [facility]. Patient denies any fever, cough, chest [...] Contact Info) Description 04/06/2024 9:30 EST Appointment [facility] Endoscopy [address] [place] [address] Angélica Hernandez MD [address] [place] [phone] 05/19/2024 13:30 EST Appointment [facility] Endoscopy [address] [place] [address] Angélica Hernandez MD [address] [phone] 05/28/2024 14:15 EDT Nurse Only [facility] [address] [place] [address] 05/28/2024 14:30 EDT Office Visit [facility] [address] [place] [address] Kaiser Miller MD 111 [facility] 2 [place] [address] documented as of this encounter [...] 20:49 EDT) ABO A 12/04/2023 21:31 EDT [facility] BLOOD BANK Rh Factor Negative 12/04/2023 21:31 EDT [facility] BLOOD [facility] Antibody Screen Negative 12/04/2023 21:31 EDT [facility] BLOOD BANK Specimen Expires: 12/07/2023 @ 23:59 12/04/2023 21:31 EDT [facility] BLOOD [facility] Blood VENOUS BLOOD / Unknown Venipuncture / Unknown 12/04/2023 20:49 EDT 12/04/2023 20:51 EDT us Anika Martinez MD BLOOD BANK TESTS Edited Re sult - Final [facility] [place] [address] * (ABNORMAL) PROTIME (12/04/2023 20:41 EDT) I.N.R. 1.2(H) 0.9 - 1.1 Ratio 12/04/2023 20:55 EDT [facility] Pro Time 14.0(H) 9.7 - 12.8 secs 12/04/2023 20:55 EDT [facility] Blood VENOUS BLOOD / Unknown Venipuncture / Unknown 12/04/2023 20:41 EDT 12/04/2023 20:43 EDT Narrative [facility] - 12/04/2023 20:55 EDT Moderate Intensity Coumadin INR = 2.0-3.0 Adjustments in anticoagulant therapy dose should be based on the INR and NOT on the Protime. us Anika Martinez MD HEMATOLOGY & PF4 ORDERABLE S Final Result [facility] [address] [place] [address] * IRON (12/04/2023 20:41 EDT) Iron 53 37 - 170 ??g/dL 12/04/2023 21:17 [facility] Blood VENOUS BLOOD / Unknown Venipuncture / Unknown 12/04/2023 20:41 EDT 12/04/2023 20:43 EDT us Anika Martinez MD CHEMISTRY & BLOOD GAS MARC HANSEN Final Result [facility] [address] [place] [address] * (ABNORMAL) COMPREHENSIVE METABOLIC PANEL (CMP) (12/04/2023 20:41 EDT) Pathologist [facility] Sodium 139 136 - 145 mmol/L 12/04/2023 21:17 [facility] Potassium 3.9 3.5 - 5.0 mmol/L 12/04/2023 21:17 [facility] Chloride 107 96 - 110 mmol/L 12/04/2023 21:17 [facility] CO2 Total 21(L) 22 - 32 mmol/L 12/04/2023 21:17 [facility] Glucose 93 70 - 99 mg/dl 12/04/2023 21:17 [facility] BUN 10 10 - 26 mg/dL 12/04/2023 21:17 [facility] Creatinine 1.49(H) 0.52 - 1.04 mg/dL 12/04/2023 21:17 [facility] eGFR 38(L) >60 mL/min/1.7 3m2 12/04/2023 21:17 [facility] Total Protein 6.9 6.3 - 8.2 g/dL 12/04/2023 21:17 [facility] Albumin 4.2 3.4 - 4.9 g/dL 12/04/2023 21:17 [facility] Alkaline Phosphatase 68 38 - 126 U/L 12/04/2023 21:17 [facility] AST 20 15 - 46 U/L 12/04/2023 21:17 [facility] ALT 13 <35 U/L 12/04/2023 21:17 [facility] Bilirubin, Total 1.3 <1.4 mg/dL 12/04/19 21:17 [facility] Calcium 9.6 8.5 - 10.5 mg/dL 12/04/2023 21:17 [facility] Albumin/Globulin Ratio 1.6 1.0 - 2.5 12/04/2023 21:17 [facility] Anion Gap 11 5 - 14 mmol/L 12/04/2023 21:17 [facility] Blood VENOUS BLOOD / Unknown Venipuncture / Unknown 12/04/2023 20:41 EDT 12/04/2023 20:43 EDT Anika Martinez MD CHEMISTRY & BLOOD GAS ORDHubert HANSEN Final Result Performing Organization Address City/State/[facility] Co de Phone Number [facility] [address] [place] [address] * (ABNORMAL) COMPLETE BLOOD COUNT AND DIFFERENTIAL (12/04/2023 20:41 EDT) WBC 4.62 4.00 - 12.40 K/cmm 12/04/2023 20:49 [facility] RBC 3.21(L) 3.86 - 5.04 M/cmm 12/04/2023 20:49 [facility] Hemoglobin 7.6(L) 11.6 - 15.2 g/dL 12/04/2023 20:49 [facility] HCT 27.6(L) 34.9 - 44.4 % 12/04/2023 20:49 [facility] MCV 86 81 - 98 fL 12/04/2023 20:49 [facility] MCH 23.7(L) 26.7 - 33.3 pg 12/04/2023 20:49 [facility] Hypochromia 1+ 12/04/2023 20:49 [facility] MCHC 27.5(L) 32.1 - 35.9 g/dL 12/04/2023 20:49 [facility] RDW-CV 18.0(H) <14.7 % 12/04/2023 20:49 [facility] RDW-SD 57.0(H) <50.4 fl 12/04/2023 20:49 [facility] Anisocytosis 1+ 12/04/2023 20:49 [facility] PLT 239 141 - 377 K/cmm 12/04/2023 20:49 [facility] MPV 10.1 9.5 - 12.7 fL 12/04/2023 20:49 [facility] % Neutrophils 65.8 Not Indicated % 12/04/2023 20:49 [facility] % Lymphocytes 23.6 Not Indicated % 12/04/2023 20:49 [facility] % Monocytes 7.6 Not Indicated % 12/04/2023 20:49 [facility] % Eosinophils 2.4 Not Indicated % 12/04/2023 20:49 [facility] % Basophils 0.4 Not Indicated % 12/04/2023 20:49 [facility] % Immature Grans 0.2 <0.9 % 12/04/19 20:49 [facility] Absolute Neutrophils 3.04 2.20 - 8.85 K/cmm 12/04/2023 20:49 [facility] Absolute Lymphocytes 1.09 1.09 - 3.30 K/cmm 12/04/2023 20:49 [facility] Absolute Monocytes 0.35 0.10 - 0.80 K/cmm 12/04/2023 20:49 [facility] Absolute Eosinophils 0.11 0.03 - 0.61 K/cmm 12/04/2023 20:49 [facility] ABS Basophils 0.02 0.01 - 0.11 K/cmm 12/04/2023 20:49 [facility] Absolute Immature Grans 0.01 0.00 - 0.06 K/cmm 12/04/2023 20:49 [facility] Type of Differential: Auto 12/04/2023 20:49 [facility] Blood VENOUS BLOOD / Unknown Venipuncture / Unknown 12/04/2023 20:41 EDT 12/04/2023 20:43 EDT Anika Martinez MD PACKAGES & DNA PROBE ORDER BHARAT Final Result Performing Organization Address City/[facility]/ZIP Co de Phone Number [facility] [address] [place] [address] * BLOOD BANK HOLD (12/04/2023 20:41 EDT) Hold BB Spec will exp at 23:59, 3 days from collect date 12/04/2023 20:44 EDT [facility] BLOOD BANK Blood VENOUS BLOOD / Unknown Venipuncture / Unknown 12/04/2023 20:41 EDT 12/04/2023 20:43 EDT us Anika Martinez MD BLOOD BANK TESTS Final Res ult [facility] BLOOD BANK [address] [place] [address] * HOLD SST (12/04/2023 20:41 EDT) Hold Hold 12/04/2023 21:46 EDT [facility] Blood VENOUS BLOOD / Unknown Venipuncture / Unknown 12/04/2023 20:41 EDT 12/04/2023 20:43 EDT us Anika Martinez MD LAB INFO SERVICE AND SUPPO RT & PHONE RESULT Final Result Performing Organization Address [facility]/ZIP Co de Phone Number [facility] [address] [place] [address] * HOLD LAVENDER TOP (12/04/2023 20:41 EDT) Hold Hold 12/04/2023 21:46 EDT [facility] Blood VENOUS BLOOD / Unknown Venipuncture / Unknown 12/04/2023 20:41 EDT 12/04/2023 20:43 EDT us Anika Martinez MD LAB INFO SERVICE AND SUPPO RT & PHONE RESULT Final Result Performing Organization Address [facility] Co de Phone Number [facility] [address] [place] [address] * HOLD GREEN TOP (12/04/2023 20:41 EDT) Hold Hold 12/04/2023 21:46 EDT [facility] Blood VENOUS BLOOD / Unknown Venipuncture / Unknown 12/04/2023 20:41 EDT 12/04/2023 20:43 EDT us Anika Martinez MD LAB INFO SERVICE AND SUPPO RT & PHONE RESULT Final Result Performing Organization Address City/[facility]/ZIP Co de Phone Number [facility] [address] [place] [address] * HOLD BLUE TOP (12/04/2023 20:41 EDT) Hold Hold 12/04/2023 21:46 EDT [facility] Blood VENOUS BLOOD / Unknown Venipuncture / Unknown 12/04/2023 20:41 EDT 12/04/2023 20:43 EDT us Anika Martinez MD LAB INFO SERVICE AND SUPPO RT & PHONE RESULT Final Result [facility] [address] [place] [address] documented in this encounter Visit Diagnoses Diagnosis Anemia, unspecified type- Primary documented in this encounter Orders Nursing Count Last Ordered Date First Orde red Date CALL BLOOD BANK ([facility] 4120) TIER 1 ORDERS ARE PLACED 1 12/04/2023 documented in this encounter Care Teams Customer Order Clerk Relationship Specialty Start Date End Date Elizabeth Dsouza MD [address] [place] [phone] PCP - General 02/13/12 documented as of this encounter
--- OUTSIDE RECORDS SUMMARY | 2024-03-05 17:40 | XMS_ITS | Encounter Summary ---
Author Organization [facility] Address [address] [place] [address] Care Team Providers Care Pvc Monitor Name Role Phone Elizabeth Dsouza MD Primary Care Provider Reason for Visit * Reason Onset Date Comments Follow-up 03/05/2024 Tobacco cessatio n Encounter Details Date Type Department Care Team ([facility] st Contact Info) Description 03/05/2024 Telephone [facility] Adult Hematology & Oncology [address] [place] [phone] Diana Covington [address] [place] [phone] Follow-up (Tobacco cessation) Social History Tobacco Use Types Packs/Day Years [...] of Assessment Author No 12/28/2021 16:46 EDT Motylenski, Héctor, RN * Because of a physical, mental, [...] Telephone Encounter - Diana Covington - 03/05/2024 1422 EST Called pt to f/u re tobacco cessation at request of nursing and front office medical assistant. No ans, left vm requesting call back. documented in this encounter Plan of Treatment Upcoming Encounters Date Type Department Care Team (Late st Contact Info) Description 04/06/2024 9:30 EST Appointment [facility] Endoscopy [address] [place] [address] Angélica Hernandez MD [address] [place] [phone] 05/19/2024 13:30 EST Appointment [facility] Endoscopy [address] [place] [address] Angélica Hernandez MD [address] [place] [phone] 05/28/2024 14:[address] [facility] [place] [address] [place], [place] [phone] 05/28/2024 14:[address] [facility] [place] [address] [place] [address] Kaiser Miller MD 111 [facility] 2 [place] [phone] documented as of this encounter Visit Diagnoses Not on filedocumented in this encounter Care Teams Pvc Monitor Relationship Specialty Start Date End Date Elizabeth Dsouza MD [address] [place] [phone] PCP - General 02/13/12 documented as of this encounter
--- OUTSIDE RECORDS SUMMARY | 2024-03-05 17:40 | XMS_ITS | Encounter Summary ---
Author Organization [facility] Address [address] [place] [address] Care Team Providers Care Insurance Actuary Name Role Phone Elizabeth Dsouza MD Primary Care Provider [phone] Reason for Visit * Reason Comments Cancer Encounter Details Date Type Department Care Team (Late st Contact Info) Description 07/25/2023 9:[address] [facility] [address] [place] [phone] Marci Ricks MD 111 [facility] 2 [place] [phone] History of lung cancer (Primary [...] Author No 12/28/2021 16:46 EDT Héctor Boyd, RN * Because of a physical, mental, [...] documented in this encounter Progress Notes * Marci Ricks MD - 07/25/2023 0900 EDT Division of Radiation Oncology FOLLOW-UP NOTE Date of Service: 07/25/2023 Diagnosis: Cancer Staging Squamous cell carcinoma of lung, right ([facility]) Staging form: Lung, AJCC 8th Edition [...] is recommended. 3. No disease progression identified. [id number] I spent a total of 30 minutes on the date of this encounter meeting with the patient and reviewing documentation/coordinating care as described in the above note. No procedures were performed at the time of the visit. Marci Ricks MD documented in this encounter Plan of Treatment Upcoming Encounters Date Type Department Care Team (Late st Contact Info) Description 04/06/2024 9:30 EST Appointment [facility] Endoscopy [address] [place], [place] [address] Angélica Hernandez MD [address] [phone] 05/19/2024 13:30 EST Appointment [facility] Endoscopy [address] [place], [place] [address] Angélica Hernandez MD [address] [phone] 05/28/2024 14:[address] [facility] [address] [phone] 05/28/2024 14:[address] [facility] [address] [phone] Kaiser Miller MD 111 [facility] 2 [place] [address] documented as of this encounter Visit Diagnoses Diagnosis History of lung cancer- Primary Personal history of malignant neoplasm of bronchus and lung documented in this encounter Care Teams Insurance Actuary Relationship Specialty Start Date End Date Elizabeth Dsouza MD [address] [place] [phone] PCP - General 02/13/12 documented as of this encounter
--- OUTSIDE RECORDS SUMMARY | 2024-03-05 17:40 | XMS_ITS | Encounter Summary ---
Author Organization [facility] Address [address] [place] [address] Care Team Providers Care Catechist Name Role Phone Elizabeth Dsouza MD Primary Care Provider [phone] Reason for Referral * Radiology Services (Routine/Next Available) - Authorization Not Required Specialty Diagnoses / Procedures [facility] Referred To Contact Diagnoses Malignant neoplasm of right lung, unspecified part of lung (HCC-CMS) Procedures CT CHEST WO CONTRAST Kaiser Miller MD Phone: tel: fax: [facility] Referral ID Status Reason Start Date Expiration Date Visits Requested Visits Authorized [id number] Authorization Not Required 07/25/2023 1 1 Reason for Visit * Radiology Services (Routine/Next Available) - Authorization Not Required Specialty Diagnoses / Procedures Referred By [facility] Referred To Contact Diagnoses Malignant neoplasm of right lung, unspecified part of lung (HCC-CMS) Procedures CT CHEST WO CONTRAST Kaiser Miller MD Phone: tel: fax: [facility] Referral ID Status Reason Start Date Expiration Date Visits Requested Visits Authorized [id number] Authorization Not Required 07/25/2023 1 1 Encounter Details Date Type Department Care Team (Latest Contact Info) Description 01/26/2024 8:15 EST - 01/26/2024 23:59 EST Hospital Encounter [facility] CT Scan [address] [place] [address] Malignant neoplasm of right lung, unspecified part [...] Take 1 Tablet by mouth every morning. HYDROcodone-acet aminophen (NORCO) 5-325 mg tablet Take 1 Tablet by mouth every 6 hours. losartan (COZAAR) 25 mg tablet Take 1 Tablet by mouth daily. nitroglycerin (NITROSTAT) 0.[address] 1 Tablet under the tongue every 5 minutes as needed for Chest Pain. omeprazole (PRILOSEC) 20 mg capsule Take 1 Capsule by mouth daily. polyethylene glycol (GOLYTELY) 236-22.74-6.74 -5.86 gram solution Dissolve mixture and drink as directed prior to procedure (see provided instructions). 4000 mL 01/02/2024 pregabalin (LYRICA) 50 mg capsule Take 1 [...] or Self Care documented in this encounter Miscellaneous Notes * Result Encounter Note - Kaiser Miller MD - 01/26/[address] chest was done today but she doesn't have follow up with me. Can you please schedule her for a follow up with me in the next week * Result Encounter Note - Judie Robertson - 01/26/2024 0830 EST 01/26/24 @ 1230PM LM for pt to call back to schedule a f/u appt with Dr. Miller in the next week togo over results of CT done today. documented in this encounter Plan of Treatment Upcoming Encounters Date Type Department Care Team (Late st Contact Info) Description 04/06/2024 9:30 EST Appointment [facility] Endoscopy [address] [place], [place] [phone] Angélica Hernandez MD [address] [phone] 05/19/2024 13:30 EST Appointment [facility] Endoscopy [address] [place], [place] [address] Angélica Hernandez MD [address] [phone] 05/28/2024 14:15 EDT Nurse Only [facility] Cancer Treatment [place] [address] [place] [address] 05/28/2024 14:30 EDT Office Visit [facility] 130 [facility] [place] [phone] Kaiser Miller MD 111 [facility], Level [address] [place] [phone] documented as of this encounter Procedures Procedure Name Priority Date/Time Associated Diagnosis Comments CT CHEST WO CONTRAST Routine 01/26/2024 8:30 EST Malignant neoplasm of right lung, unspecified part of lung (HCC-CMS) documented in this encounter Results * CT CHEST WO CONTRAST (01/26/2024 8:30 EST) Anatomical Region Laterality Modality Chest Computed Tomogra phy 01/26/2024 11:0 3 EST Impressions 01/26/2024 11:03 EST Multiple new nodular opacities in the right lung as detailed above. Given morphology and distribution, favor an infectious process. However, disease progression cannot be excluded. Recommend short-term 1 month follow-up chest CT. [id number] Narrative 01/26/2024 11:[address] CHEST WO [...] No suspicious osseous lesion Resulting Agency Comment [id number] Procedure Note Neslon Addison MD - 01/26/2024 CT CHEST WO [...] right upper lobe nodular opacity (series 3 [id number]). * Two new nearby superior segment left [...] excluded. Recommend short-term 1 month follow-upchest CT. [id number] us Kaiser Miller MD IMG CT ORDERABLES Final Result documented in this encounter Visit Diagnoses Diagnosis Malignant neoplasm of right lung, unspecified part of lung (HCC-CMS) documented in this encounter Care Teams Catechist Relationship Specialty Start Date End Date Elizabeth Dsouza MD [address] [place] [phone] PCP - General 02/13/12 documented as of this encounter
--- OUTSIDE RECORDS SUMMARY | 2024-03-05 17:40 | XMS_ITS | Encounter Summary ---
Author Organization [facility] Address [address] [place] [address] Care Team Providers Care Pole Frame Construction Worker Name Role Phone Elizabeth Dsouza MD Primary Care Provider [phone] Reason for Visit * Reason Comments Lung Cancer Encounter Details Date Type Department Care Team (Late st Contact Info) Description 02/06/2024 Documentation Visit [facility] Cancer Treatment [address] [address] Divina Penny, ABEL Social History Tobacco Use [...] Progress Notes * Divina Penny, RN - 02/06/2024 0906 EST Yesy in for a follow up with Dr. Watson after having a CT scan of her lungs. Yesy notes a frequent cough, she is raising clear sputum, she denies hemoptysis. She states her breathing is fine, her 02 sat is 99%, she does not use home 02. Yesy has been having iron infusions and blood transfusionsfor a leaky esophagus. documented in this encounter Plan of Treatment Upcoming Encounters Date Type Department Care Team (Late st Contact Info) Description 04/06/2024 9:30 EST Appointment [facility] Endoscopy [address] [place] [address] Angélica Hernandez MD [address] [place] [phone] 05/19/2024 13:30 EST Appointment [facility] Endoscopy [address] [place] [address] Angélica Hernandez MD [address] [phone] 05/28/2024 14:15 EDT Nurse Only [facility] [place] [address] [place], [place] [phone] 05/28/2024 14:30 EDT Office Visit [facility] Cancer Treatment [place] [address] [place] [address] Kaiser Miller MD 111 [facility] 2 [place] [phone] documented as of this encounter Visit Diagnoses Not on filedocumented in this encounter Care Teams Pole Frame Construction Worker Relationship Specialty Start Date End Date Elizabeth Dsouza MD [address] [place] [phone] PCP - General 02/13/12 documented as of this encounter
--- OUTSIDE RECORDS SUMMARY | 2024-03-05 17:40 | XMS_ITS | Encounter Summary ---
Author Organization [facility] Address [address] [place] [address] Care Team Providers Care Director Of Quality Control Name Role Phone Elizabeth Dsouza MD Primary Care Provider [phone] Reason for Visit * Reason Comments Lung Cancer Encounter Details Date Type Department Care Team (Late st Contact Info) Description 11/29/2022 11:00 EDT Office Visit [facility] Treatment [address] [address] History of lung cancer (Primary Dx) Social [...] when they work with a quit head boys golf coach or smoking cessation counselor and if [...] cough or hemoptysis. Patient does housework, chases fr[place], has 5 she sees regularly and has [...] is recommended. 3. No disease progression identified. [id number] I spent a total of 30 minutes on the date of this encounter meeting with the patient and reviewing documentation/coordinating care as described in the above note. No procedures were performed at the time of the visit. Marci Ricks MD documented in this encounter Plan of Treatment Upcoming Encounters Date Type Department Care Team (Late st Contact Info) Description 04/06/2024 9:30 EST Appointment [facility] Endoscopy [address] [place] [address] Angélica Hernandez MD [address] [place] [phone] 05/19/2024 13:30 EST Appointment [facility] Endoscopy [address] [place] [address] Angélica Hernandez MD [address] [place] [phone] 05/28/2024 14:15 EDT Nurse Only [facility] Cancer Treatment [address] [phone] 05/28/2024 14:30 EDT Office Visit [facility] Treatment [address] [phone] Kaiser Miller MD 111 [facility] 2 [place] [address] documented as of this encounter Visit Diagnoses Diagnosis History of lung cancer- Primary Personal history of malignant neoplasm of bronchus and lung documented in this encounter Care Teams Director Of Quality Control Relationship Specialty Start Date End Date Elizabeth Dsouza MD [address] [place] [phone] PCP - General 02/13/12 documented as of this encounter
--- OUTSIDE RECORDS SUMMARY | 2024-03-05 17:40 | XMS_ITS | Encounter Summary ---
Author Organization [facility] Address [address] [place] [address] Care Team Providers Care Pc Technician Name Role Phone Elizabeth Dsouza MD Primary Care Provider [phone] Reason for Visit * Reason Onset Date Comments Appointment Related 12/27/2022 Tobacco Cess ation - Rad Onc Encounter Details Date Type Department Care Team ([facility] st Contact Info) Description 12/27/2022 Telephone [facility] [place] [address] [place], [place] [address] Diana Covington [address] [place] [address] Appointment Related (Tobacco Cessation - Rad [...] cessation consult in rad-onc (apt scheduled in ari). No ans, left vm requesting call back to r/s. documented in this encounter Plan of Treatment Upcoming Encounters Date Type Department Care Team (Late st Contact Info) Description 04/06/2024 9:30 EST Appointment [facility] Endoscopy [address] [place] [address] Angélica Hernandez MD [address] [place] [phone] 05/19/2024 13:30 EST Appointment [facility] Endoscopy [address] [place] [address] Angélica Hernandez MD [address] [phone] 05/28/2024 14:15 EDT Nurse Only [facility] [place] [address] [place], [place] [phone] 05/28/2024 14:30 EDT Office Visit [facility] Cancer [facility] [place] [address] [place] [address] Kaiser Miller MD 111 [facility], Level 2 [place] [address] documented as of this encounter Visit Diagnoses Not on filedocumented in this encounter Care Teams Pc Technician Relationship Specialty Start Date End Date Elizabeth Dsouza MD [address] [place] [address] PCP - General 02/13/12 documented as of this encounter
--- OUTSIDE RECORDS SUMMARY | 2024-03-05 17:40 | XMS_ITS | Encounter Summary ---
Author Organization [facility] Address [address] [place] [address] Care Team Providers Care Advertising Copywriter Name Role Phone Elizabeth Dsouza MD Primary Care Provider [phone] Reason for Referral * Referral (Routine/Next Available) - Authorization Not Required Specialty Diagnoses / Procedures Referred By Loli rose Referred To Contact Diagnoses Melena Procedures CAPSULE ENDOSCOPY Mahi Hernandez MD [address] [place] [phone] Phone: tel: fax: [facility] Gastroenterology [address] [place] [address] Phone: tel: fax: Referral ID Status Reason Start Date Expiration Date Visits Requested Visits Authorized [id number] Authorization Not Required 10/01/2023 1 1 Reason for Visit * Auth/Cert (Routine) Specialty Diagnoses / Procedures Referred By Loli rose Referred To Contact Referral ID Status Reason Start Date Expiration Date Visits Re quested Visits Authorized [id number] 1 1 Encounter Details Date Type Department Care Team (Late st Contact Info) Description 10/22/2023 6:59 EDT - 10/22/2023 23:59 EDT Hospital Encounter [facility] Endoscopy [address] [place] [address] Mahi Hernandez MD [address] [phone] Luisa Discharge Disposition: Home or Self Care [...] - documented in this encounter Functional Status * [...] Notes * Marina Thakkar RN - 10/22/2023 0754 EDT Belt applied, blue light on steam conditioning operator confirmed, patient swallowed capsule without difficulty. Discharge Instructions reviewed, NO MRI card given. documented in this encounter Plan of Treatment Upcoming Encounters Date Type Department Care Team (Late st Contact Info) Description 04/06/2024 9:30 EST Appointment [facility] Endoscopy [address] [place], [place] [address] Mahi Hernandez MD [address] [place] [phone] 05/19/2024 13:30 EST Appointment [facility] Endoscopy [address] [place], [place] [phone] Mahi Hernandez MD [address] [place] [phone] 05/28/2024 14:15 EDT Nurse Only [facility] [address] [place] [address] 05/28/2024 14:30 EDT Office Visit [facility] [address] [place] [address] Kaiser Miller MD 111 [facility] 2 [place] [address] documented as of this encounter Procedures Procedure Name Priority Date/Time Associated Diagnosis Comments CAPSULE ENDOSCOPY Routine 10/22/2023 8:00 EDT Melena documented in this encounter Results * CAPSULE ENDOSCOPY (10/22/2023 8:00 EDT) Anatomical Region Laterality Modality Endoscopy Narrative 10/22/2023 8:00 EDT [facility] ?? [address] [address] ?? Patient Name ?VIKRAM CLIFFORD Date of ?1955 Record Number ?[id number] Date/Time of Procedure ?10/22/2023, 08:00:00 AM Endoscopist ?Mahi Hernandez MD ?? Manager Long Term Care ? Referring Physician(s) ?? MAHI HERNANDEZ , [...] MD M.D. Mahi Hernandez MD GI PROCEDURE ORDERABLES Final Re sult documented in this encounter Visit Diagnoses Diagnosis [...] 10/21 documented in this encounter Care Teams Advertising Copywriter Relationship Specialty Start Date End Date Elizabeth Dsouza MD [address] [place] [address] PCP - General 02/13/12 documented as of this encounter
--- OUTSIDE RECORDS SUMMARY | 2024-03-05 17:40 | XMS_ITS | Encounter Summary ---
Author Organization [facility] Address [address] [place] [address] Care Team Providers Care Director Epidemiology Name Role Phone Elizabeth Dsouza MD Primary Care Provider [phone] Reason for Referral * Radiology Services (Routine/Next Available) - Authorization Not Required Specialty Diagnoses / Procedures Referred By Contac t Referred To Contact Diagnoses Squamous cell carcinoma of lung, right (HCC-CMS) Procedures CT CHEST WO CONTRAST Khris Watson MD [address] [address] Phone: tel: fax: [facility] Referral ID Status Reason Start Date Expiration Date Visits Requested Visits Authorized [id number] Authorization Not Required 4 1 1 Reason for Visit * Radiology Services (Routine/Next Available) - Authorization Not Required Specialty Diagnoses / Procedures Referred By Contramandeep t Referred To Contact Diagnoses Squamous cell carcinoma of lung, right (HCC-CMS) Procedures CT CHEST WO CONTRAST Khris Watson MD [address] [place] [phone] Phone: tel: fax: [facility] Referral ID Status Reason Start Date Expiration Date Visits Requested Visits Authorized [id number] Authorization Not Required 4 1 1 Encounter Details Date Type Department Care Team (Latest Contact Info) Description 02/19/2024 9:49 EST - 02/19/2024 23:59 EST Hospital Encounter [facility] CT Scan [address] [place] [address] Squamous cell carcinoma of lung, right (HCC-CMS) [...] Contact Info) Description 04/06/2024 9:30 EST Appointment [facility] Endoscopy [address] [place] [address] Angélica Hernandez MD [address] [place] [phone] 05/19/2024 13:30 EST Appointment [facility] Endoscopy [address] [place] [address] Angélica Hernandez MD [address] [place] [phone] 05/28/2024 14:15 EDT Nurse Only [facility] Cancer Treatment [address] [phone] 05/28/2024 14:30 EDT Office Visit [facility] [address] [address] Kaiser Miller MD 111 [facility] 2 [place] [address] documented as of this encounter Procedures Procedure [...] either resolved or have decreased in size. [id number] Narrative 02/19/2024 10:[address] CHEST WO [...] previously [facility] avid. ?? Resulting Agency Comment [id number] Procedure Note Nelson Addison MD - 02/19/2024 [...] either resolved or have decreased in size. [id number] us Khris Watson MD IMG CT ORDERABLES Final Result documented in this encounter Visit Diagnoses Diagnosis Squamous cell carcinoma of lung, right (HCC-CMS) documented in this encounter Care Teams Director Epidemiology Relationship Specialty Start Date End Date Elizabeth Dsouza MD [address] [place] [phone] PCP - General 02/13/12 documented as of this encounter
--- OUTSIDE RECORDS SUMMARY | 2024-03-05 17:40 | XMS_ITS | Encounter Summary ---
Author Organization [facility] Address [address] [place] [address] Care Team Providers Care Teletype Installer Name Role Phone Elizabeth Dsouza MD Primary Care Provider [phone] Encounter Details Date Type Department Care Team (Late st Contact Info) Description 05/01/2023 Lab Requisition [facility] Pathology & Laboratory Medicine - [facility] [address] [place] [address] Outr Resulting Lab, Provider Social History Tobacco [...] 08/05/2022 14:47 EDT documented in this encounter Plan of Treatment Upcoming Encounters Date Type Department Care Team (Late st Contact Info) Description 04/06/2024 9:30 EST Appointment [facility] Endoscopy [address] [place] [address] Angélica Hernandez MD [address] [phone] 05/19/2024 13:30 EST Appointment [facility] Endoscopy [address] [place], [place] [address] Angélica Hernandez MD [address] [place] [phone] 05/28/2024 14:[address] [facility] Cancer Treatment [place] [address] [place], [place] [address] 05/28/2024 14:30 EDT Office Visit [facility] Cancer Treatment [address] [address] Kaiser Miller MD 111 [facility] 2 [place] [address] documented as of this encounter Procedures Procedure Name Priority Date/Time Associated Diagnosis Comments RO52 ANTIBODY, IGG Routine 04/30/2023 17 :30 EST SS-B (LA) ANTIBODY, IGG Routine 04/30/2023 17:30 EST ANTI NUCLEAR AB (JACQUELINE), IFA Routine 04/30/2023 17:30 EST documented in this encounter Results * SS-B (LA) ANTIBODY, IGG (04/30/2023 17:30 EST) SSB Antibody, IgG <3.3 <20.0 CU 024 13:18 EST [facility] Comment:Results were obtaine d with the Pongo Resume QUANTA Flash SS-B chemiluminescent immunoassay. Values obtained with different manufacturers' assay methods must not be used interchangeably. Blood VENOUS BLOOD / Unknown 04/30/2023 17:30 EST 05/01/2023 18:04 EST us Provider Outr Resulting Lab IMMUNOLOGY AND SEROL OGY ORDERABLES Final Result Performing Organization Address [facility] Co de Phone Number [facility] [address] [place] [address] * RO52 ANTIBODY, IGG (04/30/2023 17:30 EST) Ro52 Anitbody, IgG 4.2 <20.0 CU 2023 13:18 EST [facility] Comment:Results were obtaine d with the Pongo Resume QUANTA Flash Ro52 chemiluminescent immunoassay. Values obtained with different manufacturers' assay methods must not be used interchangeably. Blood VENOUS BLOOD / Unknown 04/30/2023 17:30 EST 05/01/2023 18:04 EST us Provider Outr Resulting Lab IMMUNOLOGY AND SEROL OGY ORDERABLES Final Result Performing Organization Address [facility] Co de Phone Number [facility] [address] [place] [address] * ANTI NUCLEAR AB (JACQUELINE), IFA (04/30/2023 17:30 EST) JACQUELINE Interpretation Negative Negative 2023 14:22 EST [facility] Comment:No titer performed, JACQUELINE Screen is negative. Blood VENOUS BLOOD / Unknown 04/30/2023 17:30 EST 05/01/2023 18:04 EST Narrative [facility] - 05/02/2023 14:22 EST Results were obtained with the INOVA NOVA Lite HEp-2 JACQUELINE Kit by indirect immunofluorescence. us Provider Outr Resulting Lab IMMUNOLOGY AND SEROL OGY ORDERABLES Final Result [facility] [address] [place] [address] documented in this encounter Visit Diagnoses Not on filedocumented in this encounter Care Teams Teletype Installer Relationship Specialty Start Date End Date Elizabeth Dsouza MD [address] [place] [phone] PCP - General 02/13/12 documented as of this encounter
--- OUTSIDE RECORDS SUMMARY | 2024-03-05 17:40 | XMS_ITS | Encounter Summary ---
Author Organization [facility] Address [address] [place] [address] Care Team Providers Care Export Sales Manager Name Role Phone Elizabeth Dsouza MD Primary Care Provider [phone] Reason for Referral * Radiology Services (Routine/Next Available) - Authorization Not Required Specialty Diagnoses / Procedures [facility] Referred To Contact Diagnoses Malignant neoplasm of right lung, unspecified part of lung (HCC-CMS) Procedures CT CHEST WO CONTRAST Kaiser Miller MD Phone: tel: fax: [facility] Referral ID Status Reason Start Date Expiration Date Visits Requested Visits Authorized [id number] Authorization Not Required 07/25/2023 1 1 Reason for Visit * Reason Comments Lung Cancer Encounter Details Date Type Department Care Team (Late st Contact Info) Description 07/25/2023 8:45 EDT Nurse Only [facility] Cancer Treatment [place] [address] [place] [address] Malignant neoplasm of right lung, unspecified part [...] in this encounter Progress Notes * Divina Penny RN - 07/25/2023 0845 EDT . documented in this encounter Plan of Treatment Upcoming Encounters Date Type Department Care Team (Late st Contact Info) Description 04/06/2024 9:30 EST Appointment [facility] Endoscopy [address] [place] [address] Angélica Hernandez MD [address] [place] [phone] 05/19/2024 13:30 EST Appointment [facility] Endoscopy [address] [place], [place] [address] Angélica Hernandez MD [address] [place] [phone] 05/28/2024 14:15 EDT Nurse Only [facility] [address] [place] [address] 05/28/2024 14:30 EDT Office Visit [facility] [address] [place] [address] Kaiser Miller MD [address] [facility], Level [address] [place] [phone] documented as of this encounter Results * CT CHEST WO CONTRAST (01/26/2024 8:30 EST) Anatomical Region Laterality Modality Chest Computed Tomogra phy 01/26/2024 11:0 3 EST Impressions 01/26/2024 11:03 EST Multiple new nodular opacities in the right lung as detailed above. Given morphology and distribution, favor an infectious process. However, disease progression cannot be excluded. Recommend short-term 1 month follow-up chest CT. [id number] Narrative 01/26/2024 11:[address] CHEST WO [...] No suspicious osseous lesion Resulting Agency Comment [id number] Procedure Note Nelson Addison MD - 01/26/2024 [...] right upper lobe nodular opacity (series 3 [id number]). * Two new nearby superior segment left [...] excluded. Recommend short-term 1 month follow-upchest CT. [id number] us Kaiser Miller MD IMG CT ORDERABLES Final Result documented in this encounter Visit Diagnoses Diagnosis Malignant neoplasm of right lung, unspecified part of lung (HCC-CMS)- Primary Malignant neoplasm of right lung, unspecified part of lung (HCC-CMS) documented in this encounter Care Teams Export Sales Manager Relationship Specialty Start Date End Date Elizabeth Dsouza MD [address] [place] [phone] PCP - General 02/13/12 documented as of this encounter
--- OUTSIDE RECORDS SUMMARY | 2024-03-05 17:40 | XMS_ITS | Encounter Summary ---
Author Organization [facility] Address [address] [place] [address] Care Team Providers Care Slip Bridge Operator Name Role Phone Elizabeth Dsouza MD Primary Care Provider [phone] Reason for Visit * Reason Onset Date Comments Results 12/30/2023 Encounter Details Date Type Department Care Team (Late st Contact Info) Description 12/30/2023 Telephone [facility] - Counts include 234 beds at the [facility] Gastroenterology [address] [place] [phone] Angélica Hernandez MD [address] [place] [phone] Results Social History Tobacco Use Types Packs/Day [...] encounter Miscellaneous Notes * Telephone Encounter - Angélica Hernandez MD - 12/30/2023 9847 EDT Spoke with patient regarding her lab results, Hgb still at 7.9 (low) and not much changed from 7.6.Iron low today at 26, decreased from 52 one month prior. We will proceed with enteroscopy 04/06/24 to treat AVMs with APC. In the interim, I will reach out to Dr. Dsouza (PCP) to have patient scheduled for another iron infusion. Patient agreeable to this plan. Angélica Hernandez MD Gastroenterology & Hepatology [facility] documented in this encounter Plan of Treatment Upcoming Encounters Date Type Department Care Team (Late st Contact Info) Description 04/06/2024 9:30 EST Appointment [facility] Endoscopy [address] [place], [place] [address] Angélica Hernandez MD [address] [place] [phone] 05/19/2024 13:30 EST Appointment [facility] Endoscopy [address] [place], [place] [address] Angélica Hernandez MD [address] [place] [phone] 05/28/2024 14:15 EDT Nurse Only [facility] Cancer Treatment [place] [address] [place], [place] [address] 05/28/2024 14:30 EDT Office Visit [facility] [address] [place] [address] Kaiser Miller MD [address] [place] [address] 2 [place] [phone] documented as of this encounter Visit Diagnoses Not on filedocumented in this encounter Care Teams Slip Bridge Operator Relationship Specialty Start Date End Date Elizabeth Dsouza MD 4 [place] [phone] PCP - General 02/13/12 documented as of this encounter
--- OUTSIDE RECORDS SUMMARY | 2024-03-05 17:40 | XMS_ITS | Encounter Summary ---
Author Organization [facility] Address [address] [place] [address] Care Team Providers Care Accountant Auditor Name Role Phone Elizabeth Dsouza MD Primary Care Provider [phone] Reason for Referral * Referral (Routine/Next Available) - Authorization Not Required Specialty Diagnoses / Procedures [facility] Referred To Contact Diagnoses Melena Procedures CAPSULE ENDOSCOPY Mahi Hernandez MD [address] [place] [phone] Phone: tel: fax: [facility] Gastroenterology [address] [place] [address] Phone: tel: fax: Referral ID Status Reason Start Date Expiration Date Visits Requested Visits Authorized [id number] Authorization Not Required 10/01/2023 1 1 Encounter Details Date Type Department Care Team (Late st Contact Info) Description 10/01/2023 Orders Only [facility] Gastroenterology [address] [place] [phone] Mahi Hernandez MD [address] [place] [phone] Melena (Primary Dx) Social History Tobacco [...] Contact Info) Description 04/06/2024 9:30 EST Appointment [facility] Endoscopy [address] [place] [address] Mahi Hernandez MD [address] [place] [phone] 05/19/2024 13:30 EST Appointment [facility] Endoscopy [address] [place], [place] [address] Mahi Hernandez MD [address] [place] [phone] 05/28/2024 14:15 EDT Nurse Only [facility] Cancer Treatment [place] [address] [place] [address] 05/28/2024 14:30 EDT Office Visit Health system - [facility] [address] [place] [address] Kaiser Miller MD 111 [facility] 2 [place] [phone] documented as of this encounter Results * CAPSULE ENDOSCOPY (10/22/2023 8:00 EDT) Anatomical Region Laterality Modality Endoscopy Narrative 10/22/2023 8:00 EDT [facility] ?? [facility] [address], [place], [place] [address] ?? Patient Name ?VIKRAM CLIFFORD Date of ?1955 Record Number ?[id number] Date/Time of Procedure ?10/22/2023, 08:00:00 AM Endoscopist ?Mahi Hernandez MD ?? After School Program Teacher ? Referring Physician(s) ?? MAHI HERNANDEZ , [...] stool documented in this encounter Care Teams Accountant Auditor Relationship Specialty Start Date End Date Elizabeth Dsouza MD [address] [place] [address] PCP - General 02/13/12 documented as of this encounter
--- OUTSIDE RECORDS SUMMARY | 2024-03-05 17:40 | XMS_ITS | Encounter Summary ---
Author Organization [facility] Address [address] [place] [address] Care Team Providers Care Seasonal Retail Merchandiser Name Role Phone Elizabeth Dsouza MD Primary Care Provider [phone] Reason for Visit * Reason Comments Lung Cancer Encounter Details Date Type Department Care Team (Late st Contact Info) Description 02/27/2024 9:15 EST Nurse Only [facility] [address] [place] [address] History of lung cancer (Primary Dx) Social [...] EST Pulse 88 02/27/2024 0921 EST Temperature - - Respiratory Rate - - Oxygen Saturation 98% 02/27/2024 0921 EST Inhaled Oxygen Concentration - - Weight 65.2 kg (143 lb 12.8 oz) 02/27/2024 0921 EST Height - - Body Mass Index 26.3 12/04/2023 1934 EDT documented in this encounter [...] Progress Notes * Divina Penny, ABEL - 02/27/2024 0915 EST . documented in this encounter Plan of Treatment Upcoming Encounters Date Type Department Care Team (Late st Contact Info) Description 04/06/2024 9:[address] [facility] [address] [place] [address] Angélica Hernandez MD [address] [place] [phone] 05/19/2024 13:[address] [facility] [address] [place] [address] Angélica Hernandez MD [address] [place] [phone] 05/28/2024 14:15 EDT Nurse Only [facility] [place] [address] [place] [address] 05/28/2024 14:30 EDT Office Visit [facility] [address] [place] [address] Kaiser Miller MD 111 [facility], [facility], Level 2 [place] [address] documented as of this encounter Visit Diagnoses Diagnosis History of lung cancer- Primary Personal history of malignant neoplasm of bronchus and lung documented in this encounter Care Teams Seasonal Retail Merchandiser Relationship Specialty Start Date End Date Elizabeth Dsouza MD [address] [place] [phone] PCP - General 02/13/12 documented as of this encounter
--- OUTSIDE RECORDS SUMMARY | 2024-03-05 17:40 | XMS_ITS | Encounter Summary ---
Author Organization [facility] Address [address] [place] [address] Care Team Providers Care Checkout Operator Name Role Phone Elizabeth Dsouza MD Primary Care Provider [phone] Encounter Details Date Type Department Care Team (Late st Contact Info) Description 09/12/2022 Documentation Visit [facility] Cancer Treatment [place] [address] [place] [address] Acosta Alan MD 111 [facility], [facility] 2 [place] [address] Social History Tobacco Use Types Packs/Day Years Used Date Smoking Tobacco: Every Day Cigarettes 2 55 Started: 1970 Passive Smoke Exposure: Never [...] documented in this encounter Miscellaneous Notes * Treatment Summary - Acosta Alan MD - 09/12/2022 1519 EDT Images from the original note were not included. Radiation Oncology-Treatment Summary Diagnosis: Cancer Staging Squamous cell carcinoma of lung, right ([facility]) Staging form: Lung, AJCC 8th Edition [...] Holm evaluated her in thoracic surgery at [facility]. She noted that the patient had a [...] climbing a flight of stairs without stopping prison up. On flat ground she does not [...] Contact Info) Description 04/06/2024 9:30 EST Appointment [facility] Endoscopy [address] [place] [address] Angélica Hernandez MD [address] [place] [phone] 05/19/2024 13:30 EST Appointment [facility] Endoscopy [address] [place] [address] Angélica Hernandez MD [address] [place] [phone] 05/28/2024 14:[address] [facility] Cancer Treatment [address] [phone] 05/28/2024 14:[address] [facility] Cancer Treatment [address] [address] Kaiser Miller MD 111 [facility] 2 [place] [address] documented as of this encounter Visit Diagnoses Not on filedocumented in this encounter Care Teams Checkout Operator Relationship Specialty Start Date End Date Elizabeth Dsouza MD [address] [place] [place] [phone] PCP - General 02/13/12 documented as of this encounter
--- OUTSIDE RECORDS SUMMARY | 2024-03-05 17:40 | XMS_ITS | Encounter Summary ---
Author Organization [facility] Address [address] [place] [address] Care Team Providers Care Orthotic/Prosthetic Practitioner Name Role Phone Elizabeth Dsouza MD Primary Care Provider Reason for Referral * Radiology Services (Routine/Next Available) - Authorization Not Required Specialty Diagnoses / Procedures Referred By [facility] t Referred To Contact Diagnoses Squamous cell carcinoma of lung, right (HCC-CMS) Procedures CT CHEST WO CONTRAST Acosta Alan MD Phone: tel: fax: [facility] Referral ID Status Reason Start Date Expiration Date Visits Requested Visits Authorized [id number] Authorization Not Required 09/09/2022 1 1 Reason for Visit * Radiology Services (Routine/Next Available) - Authorization Not Required Specialty Diagnoses / Procedures Referred By [facility] Referred To Contact Diagnoses Squamous cell carcinoma of lung, right (HCC-CMS) Procedures CT CHEST WO CONTRAST Acosta Alan MD Phone: tel: fax: [facility] Referral ID Status Reason Start Date Expiration Date Visits Requested Visits Authorized [id number] Authorization Not Required 09/09/2022 1 1 Encounter Details Date Type Department Care Team (Latest Contact Info) Description 11/19/2022 8:56 EDT - 11/19/2022 23:59 EDT Hospital Encounter [facility] CT Scan [address] [place] [address] Squamous cell carcinoma of lung, right (HCC-CMS) Discharge Disposition: Home or Self Care Social History Tobacco Use Types Packs/Day Years Used Date Smoking Tobacco: Every Day Cigarettes 2 55 Started: 1969 Passive Smoke Exposure: Never [...] Contact Info) Description 04/06/2024 9:30 EST Appointment [facility] Endoscopy [address] [place] [address] Angélica Hernandez MD [address] [place] [phone] 05/19/2024 13:30 EST Appointment [facility] Endoscopy [address] [place] [address] Angélica Hernandez MD [address] [place] [phone] 05/28/2024 14:15 EDT Nurse Only [facility] Cancer Treatment [address] [address] 05/28/2024 14:30 EDT Office Visit [facility] Cancer Treatment [address] [address] Kaiser Miller MD 111 [facility], [facility] 2 [place] [address] documented as of this encounter [...] is recommended. 3. No disease progression identified. [id number] Narrative 11/19/2022 12:00 EDT INDICATION: s/p SABR [...] is recommended. 3. No disease progression identified. [id number] Acosta Alan MD IMG CT ORDERABLES Final R esult documented in this encounter Visit Diagnoses Diagnosis Squamous cell carcinoma of lung, right (HCC-CMS) documented in this encounter Care Teams Orthotic/Prosthetic Practitioner Relationship Specialty Start Date End Date Elizabeth Dsouza MD [address] [place] [address] PCP - General 02/13/12 documented as of this encounter
--- OUTSIDE RECORDS SUMMARY | 2024-03-05 17:40 | XMS_ITS | Encounter Summary ---
Author Organization [facility] Address [address] [place] [address] Care Team Providers Care Podiatric Medicine Professor Name Role Phone Elizabeth Dsouza MD Primary Care Provider [phone] Encounter Details Date Type Department Care Team (Late st Contact Info) Description 12/10/2022 Documentation Visit [facility] Treatment [place] [address] [place] [address] Divina Penny, ABEL Social History Tobacco Use [...] Contact Info) Description 04/06/2024 9:30 EST Appointment [facility] Endoscopy [address] [place] [address] Angélica Hernandez MD [address] [phone] 05/19/2024 13:30 EST Appointment [facility] Endoscopy [address] [place], [place] [address] Angélica Hernandez MD [address] [place] [phone] 05/28/2024 14:15 EDT Nurse Only [facility] Treatment [place] [address] [place], [place] [phone] 05/28/2024 14:30 EDT Office Visit [facility] Treatment [place] [address] [place], [place] [address] Kaiser Miller MD 111 [facility] 2 [place] [phone] documented as of this encounter Visit Diagnoses Not on filedocumented in this encounter Care Teams Podiatric Medicine Professor Relationship Specialty Start Date End Date Elizabeth Dsouza MD [address] [place] [phone] PCP - General 02/13/12 documented as of this encounter
--- OUTSIDE RECORDS SUMMARY | 2024-03-05 17:40 | XMS_ITS | Encounter Summary ---
Author Organization [facility] Address [address] [place] [address] Care Team Providers Care Control Panel Operator Crude Unit Name Role Phone Elizabeth Dsouza MD Primary Care Provider [phone] Reason for Referral * Radiology Services (Routine/Next Available) - Authorization Not Required Specialty Diagnoses / Procedures [facility] Referred To Contact Diagnoses Squamous cell carcinoma of lung, right (HCC-CMS) Procedures CT CHEST WO CONTRAST Kasier Miller MD Phone: tel: fax: [facility] Referral ID Status Reason Start Date Expiration Date Visits Requested Visits Authorized [id number] Authorization Not Required 06/16/2023 1 1 Reason for Visit * Radiology Services (Routine/Next Available) - Authorization Not Required Specialty Diagnoses / Procedures Referred By [facility] Referred To Contact Diagnoses Squamous cell carcinoma of lung, right (HCC-CMS) Procedures CT CHEST WO CONTRAST Kaiser Miller MD Phone: tel: fax: [facility] Referral ID Status Reason Start Date Expiration Date Visits Requested Visits Authorized [id number] Authorization Not Required 06/16/2023 1 1 Encounter Details Date Type Department Care Team (Latest Contact Info) Description 07/23/2023 16:46 EDT - 07/23/2023 23:59 EDT Hospital Encounter [facility] CT Scan [address] [place] [address] Squamous cell carcinoma of lung, right ([facility]) Discharge Disposition: Home or Self Care Social [...] Contact Info) Description 04/06/2024 9:30 EST Appointment [facility] Endoscopy [address] [place] [address] Angélica Hernandez MD [address] [place] [phone] 05/19/2024 13:30 EST Appointment [facility] Endoscopy [address] [place] [address] Angélica Hernandez MD [address] [place] [phone] 05/28/2024 14:15 EDT Nurse Only [facility] [address] [phone] 05/28/2024 14:30 EDT Office Visit [facility] Treatment [address] [address] Kaiser Miller MD 111 [facility], [facility] 2 [place] [address] documented as of this encounter [...] REGARDING THIS REPORT PLEASE CALL [facility] AT [phone] Narrative 07/23/2023 18:50 EDT PROCEDURE INFORMATION: Exam: [...] CONCERNS REGARDING THIS REPORT PLEASE CALL [facility] [phone] us Kaiser Miller MD IMG CT ORDERABLES Final Result documented in this encounter Visit Diagnoses Diagnosis Squamous cell carcinoma of lung, right (HCC-CMS) documented in this encounter Care Teams Control Panel Operator Crude Unit Relationship Specialty Start Date End Date Elizabeth Dsouza MD [address] [place] [phone] PCP - General 02/13/12 documented as of this encounter
--- OUTSIDE RECORDS SUMMARY | 2024-03-05 17:40 | XMS_ITS | Encounter Summary ---
Author Organization [facility] Address [address] [place] [address] Care Team Providers Care Tie Layer Name Role Phone Elizabeth Dsouza MD Primary Care Provider [phone] Encounter Details Date Type Department Care Team (Late st Contact Info) Description 12/10/2022 Orders Only [facility] Cancer Treatment [place] [address] [place] [address] Acosta Alan MD 111 [facility], [facility] 2 [place] [address] Squamous cell carcinoma of lung, [...] Contact Info) Description 04/06/2024 9:30 EST Appointment [facility] Endoscopy [address] [place] [address] Angélica Hernandez MD [address] [place] [phone] 05/19/2024 13:30 EST Appointment [facility] Endoscopy [address] [place] [address] Angélica Hernandez MD [address] [place] [phone] 05/28/2024 14:15 EDT Nurse Only [facility] Cancer Treatment [place] [address] [place], [place] [address] 05/28/2024 14:30 EDT Office Visit [facility] [place] [address] [place], [place] [address] Kaiser Miller MD 111 [facility] 2 [place] [phone] documented as of this encounter Visit Diagnoses Diagnosis Squamous cell carcinoma of lung, right (HCC-CMS)- Primary documented in this encounter Care Teams Tie Layer Relationship Specialty Start Date End Date Elizabeth Dsouza MD [address] [place] [address] PCP - General 02/13/12 documented as of this encounter
--- OUTSIDE RECORDS SUMMARY | 2024-03-05 17:40 | XMS_ITS | Encounter Summary ---
Author Organization [facility] Address [address] [place] [address] Care Team Providers Care Harbor Pilot Name Role Phone Elizabeth Dsouza MD Primary Care Provider [phone] Encounter Details Date Type Department Care Team (Late st Contact Info) Description 12/30/2023 11:35 EDT Phlebotomy Only [facility] Outpatient Phlebotomy Drawing [address] [place] [address] Lab, [facility] Op Phlebotomy Iron deficiency anemia due to chronic blood loss; Iron deficiency Social History Tobacco Use Types [...] Contact Info) Description 04/06/2024 9:30 EST Appointment [facility] [address] [place], [place] [address] Angélica Hernandez MD [address] [place] [phone] 05/19/2024 13:30 EST Appointment [facility] [address] [place], [place] [address] Angélica Hernandez MD [address] [place] [phone] 05/28/2024 14:15 EDT Nurse Only [facility] [facility] [address] [address] 05/28/2024 14:30 EDT Office Visit [facility] Cancer Treatment [address] [address] Kaiser Miller MD 111 [facility] 2 [place] [address] documented as of this encounter Procedures Procedure Name Priority Date/Time Associated Diagnosis Comments COMPLETE BLOOD COUNT Routine 12/30/2023 11:45 EDT Iron deficiency anemia due to chronic blood loss Iron deficiency IRON Routine 12/30/2023 11:45 EDT Iron deficiency anemia due to chronic blood loss documented in this encounter Results * (ABNORMAL) IRON (12/30/2023 11:45 EDT) Iron 26(L) 37 - 170 ??g/dL 12/30/2023 13:20 [facility] Blood VENOUS BLOOD / Unknown Venipuncture / Unknown 12/30/2023 11:45 EDT 12/30/2023 12:35 EDT us Angélica Hernandez MD CHEMISTRY & BLOOD GAS ORDERABLES Final Result [facility] [address] [place] [address] * (ABNORMAL) COMPLETE BLOOD COUNT (12/30/2023 11:45 EDT) Pathologist [facility] WBC 4.67 4.00 - 12.40 K/cmm 12/30/2023 12:52 [facility] RBC 3.25(L) 3.86 - 5.04 M/cmm 12/30/2023 12:52 [facility] Hemoglobin 7.9(L) 11.6 - 15.2 g/dL 12/30/2023 12:52 [facility] HCT 28.1(L) 34.9 - 44.4 % 12/30/2023 12:52 [facility] MCV 87 81 - 98 fL 12/30/2023 12:52 [facility] MCH 24.3(L) 26.7 - 33.3 pg 12/30/2023 12:52 [facility] Hypochromia 1+ 12/30/2023 12:52 [facility] MCHC 28.1(L) 32.1 - 35.9 g/dL 12/30/2023 12:52 [facility] RDW-CV 19.2(H) <14.7 % 12/30/2023 12:52 [facility] RDW-SD 60.9(H) <50.4 fl 12/30/2023 12:52 EDT [facility] Anisocytosis 2+ 12/30/2023 12:52 EDT [facility] PLT 251 141 - 377 K/cmm 12/30/2023 12:52 EDT [facility] MPV 10.5 9.5 - 12.7 fL 12/30/2023 12:52 EDT [facility] Blood VENOUS BLOOD / Unknown Venipuncture / Unknown 12/30/2023 11:45 EDT 12/30/2023 12:48 EDT us Angélica Hernandez MD HEMATOLOGY & PF4 ORDERABLES Teresa l Result [facility] [address] [place] [address] documented in this encounter Visit Diagnoses Diagnosis Iron deficiency anemia due to chronic blood loss Iron deficiency anemia secondary to blood loss (chronic) Iron deficiency Iron deficiency anemia, unspecified documented in this encounter Care Teams Harbor Pilot Relationship Specialty Start Date End Date Elizabeth Dsouza MD [address] [place] [phone] PCP - General 02/13/12 documented as of this encounter
--- OUTSIDE RECORDS SUMMARY | 2024-03-05 17:40 | XMS_ITS | Encounter Summary ---
Author Organization [facility] Address [address] [place] [address] Care Team Providers Care Station Usher Name Role Phone Elizabeth Dsouza MD Primary Care Provider [phone] Encounter Details Date Type Department Care Team (Late st Contact Info) Description 09/23/2023 Lab Requisition [facility] Pathology & Laboratory Medicine - [facility] [address] [place] [address] Elizabeth Dsouza MD [address] [place] [phone] Encounter for screening for malignant neoplasm [...] Contact Info) Description 04/06/2024 9:30 EST Appointment [facility] Endoscopy [address] [place] [address] Angélica Hernandez MD [address] [place] [phone] 05/19/2024 13:30 EST Appointment [facility] Endoscopy [address] [place] [address] Angléica Hernandez MD [address] [place] [phone] 05/28/2024 14:15 EDT Nurse Only [facility] Cancer Treatment [address] [phone] 05/28/2024 14:30 EDT Office Visit [facility] Cancer Treatment [address] [phone] Kaiser Miller MD 111 [facility] 2 [place] [address] documented as of this encounter Procedures Procedure Name Priority Date/Time Associated Diagnosis Comments PAP TEST Today 09/19/2023 15:00 EDT Encounter for screening for malignant neoplasm of cervix Encounter for general adult medical examination with abnormal findings documented in this encounter Results * PAP TEST (09/19/2023 15:00 EDT) Specimens A. Cervix and/or Endocervix , ThinPrep Imaging System with Manual Evaluation 09/26/2023 12:41 [facility] Specimen Adequacy Satisfactory for Evaluation - transformation zone component absent Scant squamous epithelial component 09/26/2023 12:41 [facility] General Categorization Epithelial Cell Abnormality 09/26/2023 12:41 [facility] Descriptive Diagnosis Squamous Cell Abnormality - Atypical squamous cells, undetermined significance (ASC-US). 09/26/2023 12:41 [facility] Diagnosis Comment Few nucleated squamous cells present with abundant hyperkeratosis. 09/26/2023 12:41 [facility] Educational Comments [facility] recommends following the ASCCP's management guidelines which may be found at www.asccp.org 09/26/2023 12:41 [facility] Attestation By the signature below, the attending physician certifies that they have personally conducted a gross and/or microscopic examination of the described specimens and rendered or confirmed the above diagnosis. 09/26/2023 12:41 [facility] at 1241 Clinical History SEE BELOW 09/26/19 12:41 [facility] Performing Lab [facility] 09/26/2023 12:41 [facility] Scanned Images 09/26/2023 12:41 [facility] Pap Test CERVIX UTERI STRUCTURE / Unknown 09/19/2023 15:00 EDT 09/23/2023 13:19 EDT us Elizabeth Dsouza MD PATHOLOGY ORDERABLES Final Res ult [facility] [address] [place] [address] documented in this encounter Visit Diagnoses Diagnosis Encounter for screening for malignant neoplasm of cervix Screening for malignant neoplasm of the cervix Encounter for general adult medical examination with abnormal findings Unspecified general medical examination documented in this encounter Care Teams Station Usher Relationship Specialty Start Date End Date Elizabeth Dsouza MD [address] [place] [phone] PCP - General 02/13/12 documented as of this encounter
--- OUTSIDE RECORDS SUMMARY | 2024-03-05 17:40 | XMS_ITS | Encounter Summary ---
Author Organization [facility] Address [address] [place] [address] Care Team Providers Care Panel Saw Operator Name Role Phone Elizabeth Dsouza MD Primary Care Provider [phone] Reason for Referral * Radiology Services (Routine/Next Available) - Authorization Not Required Specialty Diagnoses / Procedures [facility] Referred To Contact Diagnoses Malignant neoplasm of upper lobe of right lung (HCC-CMS) Procedures CT CHEST WO CONTRAST Harmony Trotter MD [address] [place] [phone] Phone: tel: fax: [facility] Referral ID Status Reason Start Date Expiration Date Visits Requested Visits Authorized [id number] Authorization Not Required 4 1 1 Reason for Visit * Reason Comments Lung Cancer Encounter Details Date Type Department Care Team (Late st Contact Info) Description 02/27/2024 9:30 EST Office Visit [facility] [address] [place] [id number] Harmony Trotter MD [address] [place] [phone] Malignant neoplasm of upper lobe of right lung (HCC-CMS) (Primary Dx) Social History Tobacco [...] documented in this encounter Progress Notes * Harmony Trotter MD - 02/27/2024 0930 EST Patient Name: Melodie Hodge (1955) Patient Provider: Harmony Trotter MD Date of service: 02/27/2024 Radiation Oncology Follow-Up Note Identification/Chief Compliant Melodie Hodge is a 68 y.o. female smoker with CAD, CKD and [id number] stage IA2 NSCLC of the RUL s/p SBRT to 54 Gy in 3 fractions completed 09/13/23. Ms. Hodge presents today for routine follow-up. Interval History Ms. Hodge ws seen in follow up in January and at that time had a CT of the chest 01/26/24 that showed no change in the treated RUL nodule but multiple new nodular opacities bilaterally favored to represent an infectious process. Repeat CT chest 02/19/24 shows resolution of many of the nodule. There is stable bandlike opacity int he RUL (treated site). There is an unchanged 8mm opacity also in the RUL that did not resolve, and is new compared to July 2023. On evaluation today she states she had a cold/cough about a month ago. No fevers. Feels she is at baseline with chronic productive cough. Still smoking 1- 2 PPD. Tried nicotine patches a year ago (802quits) - told she couldn't get another supply. PCP tried but not covered by insurance. Pain scale 0 / 10 Performance Status: 2: Ambulatory and capable of all selfcare but unable to carry out any work activities; up and about more than 50% of waking hours General: Chronically ill appearing, NAD HEENT: Anicteric sclera. Pupils equally round and reactive to light and accommodation. Extra-ocularmovements intact. Respiratory: Clear, unlabored breathing. Abdomen: Non-distended. Extremities: No lower extremity edema. MSK: Moves all extremities without difficulty. Neurologic: Cranial nerves II through XII grossly intact. 5/5 symmetric strength of the bilateral upper and lower extremities. No dysarthria or dysmetria. Dermatologic: No skin rashes, or jaundice. Labs Lab Results Component Value Date WBC 4.67 12/30/2023 HGB 7.9 (L) 12/30/2023 HCT 28.1 (L) 12/30/2023 PLT 251 12/30/2023 Lab Results Component Value Date CREATININE 1.49 (H) 12/04/2023 BUN 10 12/04/2023 NA 139 12/04/2023 K 3.9 12/04/2023 CL 107 12/04/2023 CO2 21 (L) 12/04/2023 CALCIUM 9.6 12/04/2023 Assessment/Plan Ms. Hodge is 6 months out from SBRT. Interval CT shows stable treated nodule - no evidence of recurrence. She had multiple b/l new nodules on CT in January 2024. It sounds like she had a respiratory infection around that time as well. Most of these have resolved except one 8mm nodule near the treated lesion. Recommend repeat CT in 3 months. Also discussed smoking cessation. Will reach out to Diana to see if we can supply her with nicotine patches as she is motivated to reduce her smoking. I spent a total of 30 minutes on the date of this encounter meeting with the patient and reviewing documentation/coordinating care as described in the above note. No procedures were performed at the time of the visit. Harmony Trotter MD Network Chair of Radiation Oncology [facility] documented in this encounter Plan of Treatment Upcoming Encounters Date Type Department Care Team (Late st Contact Info) Description 04/06/2024 9:30 EST Appointment [facility] Endoscopy [address] [place] [address] Angélica Hernandez MD [address] [place] [phone] 05/19/2024 13:30 EST Appointment [facility] Endoscopy [address] [place] [address] Angélica Hernandez MD [address] [place] [phone] 05/28/2024 14:15 EDT Nurse Only [facility] Cancer Treatment [address] [phone] 05/28/2024 14:30 EDT Office Visit [facility] Cancer Treatment [address] [phone] Kaiser Miller MD 111 [facility], [facility] 2 [place] [address] Scheduled Orders Name Type Priority Associated Diagnoses Orde r Schedule CT CHEST WO CONTRAST Imaging Routine Malignant neoplasm of upper lobe of right lung (HCC-CMS) 1 Occurrences starting 02/27/2024 until 02/26/2025 documented as of this encounter Visit Diagnoses Diagnosis Malignant neoplasm of upper lobe of right lung (HCC-CMS)- Primary Malignant neoplasm of upper lobe, bronchus or lung documented in this encounter Care Teams Panel Saw Operator Relationship Specialty Start Date End Date Elizabeth Dsouza MD [address] [place] [address] PCP - General 02/13/12 documented as of this encounter
--- OUTSIDE RECORDS SUMMARY | 2024-03-05 17:40 | XMS_ITS | Encounter Summary ---
Author Organization [facility] Address [address] [place] [address] Care Team Providers Care Terminal Operations Supervisor Name Role Phone Elizabeth Dsouza MD Primary Care Provider [phone] Encounter Details Date Type Department Care Team (Late st Contact Info) Description 09/09/2022 Results Only [facility] Radiation Oncology - [address] [phone] Unknown, Provider, Social History Tobacco Use Types [...] Contact Info) Description 04/06/2024 9:30 EST Appointment [facility] Endoscopy [address] [place], [place] [phone] Angélica Hernandez MD [address] [phone] 05/19/2024 13:30 EST Appointment [facility] Endoscopy [address] [place], [place] [phone] Angélica Hernandez MD [address] [place] [phone] 05/28/2024 14:15 EDT Nurse Only [facility] Cancer Treatment [address] [phone] 05/28/2024 14:30 EDT Office Visit [facility] Treatment [place] [address] [place], [place] 129[address] Kaiser Miller MD 111 [facility] 2 [place] [phone] documented as of this encounter [...] LUNG [facility] RADIATION ONCOLOGY 06/25/2023 9:07 EDT us Provider Unknown RADIATION ONCOLOGY ORDERABLE S Final Result Performing Organization Address City/State/[facility] Co de Phone Number [facility] documented in this encounter Visit Diagnoses Not on filedocumented in this encounter Care Teams Terminal Operations Supervisor Relationship Specialty Start Date End Date Elizabeth Dsouza MD [address] [place] [phone] PCP - General 02/13/12 documented as of this encounter
--- OUTSIDE RECORDS SUMMARY | 2024-03-05 17:41 | XMS_ITS | Encounter Summary ---
Author Organization [facility] Address [address] [place] [address] Care Team Providers Care Field Scout Name Role Phone Elizabeth Dsouza MD Primary Care Provider [phone] Reason for Visit * Reason Comments Follow-up Encounter Details Date Type Department Care Team (Late st Contact Info) Description 07/31/2022 10:30 EDT Nurse Only [facility] Pulmonology & Critical Care - [facility] [address] [place] [address] Pulmonary, Nurse Lung nodule (Primary Dx) Social [...] No 12/28/2021 16:46 EDT Héctor Boyd, ABEL documented as of this encounter Progress Notes * Audrey Mix RN - 07/31/2022 1030 EDT LMOM asking patient to call back to discuss symptoms s/p bronchoscopy. documented in this encounter Plan of Treatment Upcoming Encounters Date Type Department Care Team (Late st Contact Info) Description 04/06/2024 9:30 EST Appointment [facility] Endoscopy [address] [place] [address] Angélica Hernandez MD [address] [place] [phone] 05/19/2024 13:30 EST Appointment [facility] Endoscopy [address] [place] [address] Angélica Hernandez MD [address] [place] [phone] 05/28/2024 14:15 EDT Nurse Only [facility] Treatment [address] [phone] 05/28/2024 14:30 EDT Office Visit [facility] Cancer Treatment [address] [address] Kaiser Miller MD 111 [facility] 2 [place] [phone] documented as of this encounter Visit Diagnoses Diagnosis Lung nodule- Primary Solitary pulmonary nodule documented in this encounter Care Teams Field Scout Relationship Specialty Start Date End Date Elizabeth Dsouza MD [address] [place] [address] PCP - General 02/13/12 documented as of this encounter
--- OUTSIDE RECORDS SUMMARY | 2024-03-05 17:41 | XMS_ITS | Encounter Summary ---
Author Organization [facility] Address [address] [place] [address] Care Team Providers Care Release Of Information Clerk Name Role Phone Elizabeth Dsouza MD Primary Care Provider [phone] Encounter Details Date Type Department Care Team (Late st Contact Info) Description 07/26/2022 13:45 EDT Phlebotomy Only [facility] ED Center 2 Phlebotomy [address] [place] [address] Boiler Inspector, Acc Phlebotomy Lung nodule Social History Tobacco [...] No 12/28/2021 16:46 EDT Héctor Boyd RN documented as of this encounter Plan of Treatment Upcoming Encounters Date Type Department Care Team (Late st Contact Info) Description 04/06/2024 9:30 EST Appointment [facility] Endoscopy [address] [place], [place] [address] Angélica Hernandez MD [address] [phone] 05/19/2024 13:30 EST Appointment [facility] Endoscopy [address] [place] [address] Angélica Hernandez MD [address] [phone] 05/28/2024 14:15 EDT Nurse Only [facility] [address] [place] [address] 05/28/2024 14:30 EDT Office Visit [facility] - [address] [address] Kaiser Miller MD 111 [facility], [facility] 2 [place] [address] documented as of this encounter Procedures Procedure Name Priority Date/Time Associated Diagnosis Comments COMPLETE BLOOD COUNT AND DIFFERENTIAL Routine 07/26/2022 14:08 EDT Lung nodule COMPREHENSIVE METABOLIC PANEL (CMP) Routine 07/26/2022 14:08 EDT Lung nodule documented in this encounter Results * (ABNORMAL) COMPLETE BLOOD COUNT AND DIFFERENTIAL (07/26/2022 14:08 EDT) WBC 6.58 4.00 - 12.40 K/cmm 07/26/2022 14:58 EDT [facility] RBC 4.87 3.86 - 5.04 M/cmm 07/26/2022 14:58 EDT [facility] Hemoglobin 15.3(H) 11.6 - 15.2 gm/dL 07/26/2022 14:58 EDT [facility] HCT 46.2(H) 34.9 - 44.4 % 07/26/2022 14:58 [facility] MCV 95 81 - 98 fl 07/26/2022 14:58 [facility] MCH 31.4 26.7 - 33.3 pg 07/26/2022 14:58 [facility] MCHC 33.1 32.1 - 35.9 gm/dL 07/26/2022 14:58 [facility] RDW-CV 12.9 <14.7 % 07/26/2022 14:58 [facility] RDW-SD 44.9 <50.4 fl 07/26/2022 14:58 [facility] PLT 195 141 - 377 K/cmm 07/26/2022 14:58 [facility] MPV 10.7 9.5 - 12.7 fl 07/26/2022 14:58 [facility] % Neutrophils 69.4 % 07/26/2022 14:58 [facility] % Lymphocytes 21.9 % 07/26/2022 14:58 [facility] % Monocytes 6.1 % 07/26/2022 14:58 [facility] % Eosinophils 1.8 % 07/26/2022 14:58 [facility] % Basophils 0.6 % 07/26/2022 14:58 [facility] % Immature Grans 0.2 % 07/27/19 14:58 [facility] Absolute Neutrophils 4.57 2.20 - 8.85 K/cmm 07/26/2022 14:58 [facility] Absolute Lymphocytes 1.44 1.09 - 3.30 K/cmm 07/26/2022 14:58 [facility] Absolute Monocytes 0.40 0.10 - 0.80 K/cmm 07/26/2022 14:58 [facility] Absolute Eosinophils 0.12 0.03 - 0.61 K/cmm 07/26/2022 14:58 [facility] ABS Basophils 0.04 0.01 - 0.11 K/cmm 07/26/2022 14:58 [facility] Absolute Immature Grans 0.01 0.00 - 0.06 K/cm 07/26/2022 14:58 [facility] Type of Differential: Auto 07/26/2022 14:58 [facility] Blood VENOUS BLOOD / Unknown Venipuncture / Unknown 07/26/2022 14:08 EDT 07/26/2022 14:47 EDT us Elizabeth Asencio WAITSTAFF CAPTAIN PACKAGES & DNA PROBE ORDERAB LES Final Result [facility] [address] [place] [address] * (ABNORMAL) COMPREHENSIVE METABOLIC PANEL (CMP) (07/26/2022 14:08 EDT) Sodium 143 136 - 145 mmol/L 07/26/2022 15:45 [facility] Potassium 4.2 3.5 - 5.0 mmol/L 07/26/2022 15:45 [facility] Chloride 105 96 - 110 mmol/L 07/26/2022 15:45 [facility] CO2 Total 29 22 - 32 mmol/L 07/26/2022 15:45 [facility] Glucose 106(H) 70 - 100 mg/dl 07/26/2022 15:45 [facility] BUN 15 10 - 26 mg/dL 07/26/2022 15:45 [facility] Creatinine 1.41(H) 0.52 - 1.04 mg/dL 07/26/2022 15:45 [facility] eGFR 41(L) >60 mL/min/1.7 3m2 07/26/2022 15:45 [facility] Total Protein 6.9 6.3 - 8.2 g/dL 07/26/2022 15:45 [facility] Albumin 4.4 3.4 - 4.9 g/dL 07/26/2022 15:45 EDT [facility] Alkaline Phosphatase 59 38 - 126 U/L 07/26/2022 15:45 EDT [facility] AST 21 15 - 46 U/L 07/26/2022 15:45 EDT [facility] ALT 20 <35 U/L 07/26/2022 15:45 T [facility] Bilirubin, Total 1.0 <1.4 mg/dL 07/27/19 15:45 EDT [facility] Calcium 10.0 8.5 - 10.5 mg/dL 07/26/2022 15:45 T [facility] Albumin/Globulin Ratio 1.8 1.0 - 2.5 07/26/2022 15:45 T [facility] Anion Gap 9 5 - 14 mmol/L 07/26/2022 15:45 T [facility] Blood VENOUS BLOOD / Unknown Venipuncture / Unknown 07/26/2022 14:08 EDT 07/26/2022 14:57 EDT us Elizabeth Asencio WAITSTAFF CAPTAIN CHEMISTRY & BLOOD GAS ORDERA BLES Final Result Performing Organization Address City/State/[facility] Co de Phone Number [facility] [address] [place] [address] documented in this encounter Visit Diagnoses Diagnosis Lung nodule Solitary pulmonary nodule documented in this encounter Care Teams Release Of Information Clerk Relationship Specialty Start Date End Date Elizabeth Dsouza MD [address] [place] [address] PCP - General 02/13/12 documented as of this encounter
--- OUTSIDE RECORDS SUMMARY | 2024-03-05 17:41 | XMS_ITS | Encounter Summary ---
Author Organization [facility] Address [address] [place] [address] Care Team Providers Care Wholesale Representative Name Role Phone Elizabeth Dsouza MD Primary Care Provider [phone] Encounter Details Date Type Department Care Team (Late st Contact Info) Description 07/23/2022 Orders Only [facility] Pulmonology & Critical Care - [facility] [address] [place] [address] Audrey Mix, ABEL Lung nodule (Primary Dx) Social History [...] No 12/28/2021 16:46 EDT Héctor Boyd, RN documented as of this encounter Plan of Treatment Upcoming Encounters Date Type Department Care Team (Late st Contact Info) Description 04/06/2024 9:30 EST Appointment [facility] Endoscopy [address] [place] [address] Angélica Hernandez MD [address] [phone] 05/19/2024 13:30 EST Appointment [facility] Endoscopy [address] [place] [address] Angélica Hernandez MD [address] [phone] 05/28/2024 14:15 EDT Nurse Only [facility] [address] [place] [address] 05/28/2024 14:30 EDT Office Visit [facility] [address] [place] [address] Kaiser Miller MD 111 [facility], Level [address] [place] [address] documented as of this encounter Results * (ABNORMAL) COMPLETE BLOOD COUNT AND DIFFERENTIAL (07/26/2022 14:08 EDT) WBC 6.58 4.00 - 12.40 K/cmm 07/26/2022 14:58 EDT [facility] RBC 4.87 3.86 - 5.04 M/cmm 07/26/2022 14:58 EDT [facility] Hemoglobin 15.3(H) 11.6 - 15.2 gm/dL 07/26/2022 14:58 EDT [facility] HCT 46.2(H) 34.9 - 44.4 % 07/26/2022 14:58 EDT [facility] MCV 95 81 - 98 fl 07/26/2022 14:58 EDT [facility] MCH 31.4 26.7 - 33.3 pg 07/26/2022 14:58 [facility] MCHC 33.1 32.1 - 35.9 gm/dL 07/26/2022 14:58 [facility] RDW-CV 12.9 <14.7 % 07/26/2022 14:58 [facility] RDW-SD 44.9 <50.4 fl 07/26/2022 14:58 [facility] PLT 195 141 - 377 K/cmm 07/26/2022 14:58 [facility] MPV 10.7 9.5 - 12.7 fl 07/26/2022 14:58 [facility] % Neutrophils 69.4 % 07/26/2022 14:58 [facility] % Lymphocytes 21.9 % 07/26/2022 14:58 [facility] % Monocytes 6.1 % 07/26/2022 14:58 [facility] % Eosinophils 1.8 % 07/26/2022 14:58 [facility] % Basophils 0.6 % 07/26/2022 14:58 [facility] % Immature Grans 0.2 % 07/27/19 14:58 [facility] Absolute Neutrophils 4.57 2.20 - 8.85 K/cmm 07/26/2022 14:58 [facility] Absolute Lymphocytes 1.44 1.09 - 3.30 K/cmm 07/26/2022 14:58 [facility] Absolute Monocytes 0.40 0.10 - 0.80 K/cmm 07/26/2022 14:58 [facility] Absolute Eosinophils 0.12 0.03 - 0.61 K/cmm 07/26/2022 14:58 [facility] ABS Basophils 0.04 0.01 - 0.11 K/cmm 07/26/2022 14:58 [facility] Absolute Immature Grans 0.01 0.00 - 0.06 K/cmm 07/26/2022 14:58 [facility] Type of Differential: Auto 07/26/2022 14:58 T [facility] Blood VENOUS BLOOD / Unknown Venipuncture / Unknown 07/26/2022 14:08 EDT 07/26/2022 14:47 EDT us Elizabeth Asencio MEDICAL BILLING SUPERVISOR PACKAGES & DNA PROBE ORDERAB LES Final Result [facility] [address] [place] [address] * (ABNORMAL) COMPREHENSIVE METABOLIC PANEL (CMP) (07/26/2022 14:08 EDT) Sodium 143 136 - 145 mmol/L 07/26/2022 15:45 [facility] Potassium 4.2 3.5 - 5.0 mmol/L 07/26/2022 15:45 [facility] Chloride 105 96 - 110 mmol/L 07/26/2022 15:45 [facility] CO2 Total 29 22 - 32 mmol/L 07/26/2022 15:45 [facility] Glucose 106(H) 70 - 100 mg/dl 07/26/2022 15:45 [facility] BUN 15 10 - 26 mg/dL 07/26/2022 15:45 [facility] Creatinine 1.41(H) 0.52 - 1.04 mg/dL 07/26/2022 15:45 [facility] eGFR 41(L) >60 mL/min/1.7 3m2 07/26/2022 15:45 [facility] Total Protein 6.9 6.3 - 8.2 g/dL 07/26/2022 15:45 [facility] Albumin 4.4 3.4 - 4.9 g/dL 07/26/2022 15:45 [facility] Alkaline Phosphatase 59 38 - 126 U/L 07/26/2022 15:45 [facility] AST 21 15 - 46 U/L 07/26/2022 15:45 [facility] ALT 20 <35 U/L 07/26/2022 15:45 EDT [facility] Bilirubin, Total 1.0 <1.4 mg/dL 07/27/19 15:45 EDT [facility] Calcium 10.0 8.5 - 10.5 mg/dL 07/26/2022 15:45 EDT [facility] Albumin/Globulin Ratio 1.8 1.0 - 2.5 07/26/2022 15:45 EDT [facility] Anion Gap 9 5 - 14 mmol/L 07/26/2022 15:45 EDT [facility] Blood VENOUS BLOOD / Unknown Venipuncture / Unknown 07/26/2022 14:08 EDT 07/26/2022 14:57 EDT us Elizabeth Asencio MEDICAL BILLING SUPERVISOR CHEMISTRY & BLOOD GAS ORDERA BLES Final Result [facility] [address] [place] [address] documented in this encounter Visit Diagnoses Diagnosis Lung nodule- Primary Solitary pulmonary nodule documented in this encounter Care Teams Wholesale Representative Relationship Specialty Start Date End Date Elizabeth Dsouza MD [address] [place] [address] PCP - General 02/13/12 documented as of this encounter
--- OUTSIDE RECORDS SUMMARY | 2024-03-05 17:41 | XMS_ITS | Encounter Summary ---
Author Organization [facility] Address [address] [place] [address] Care Team Providers Care Dewaterer Operator Name Role Phone Elizabeth Dsouza MD Primary Care Provider [phone] Encounter Details Date Type Department Care Team (Late st Contact Info) Description 09/09/2022 10:15 EDT - 09/09/2022 23:59 EDT Hospital Encounter [facility] [place] [address] [place] [address] Acosta Alan MD [address] [place] [address] 2 [place] [address] Discharge Disposition: Home or Self [...] Melodie Hodge Date of : 1955 MR#: [id number] MD: Too Alan MD Diagnosis: Cancer Staging [...] chest. Signed By: Acosta Alan MD Radiation Oncology[facility] (p) [phone] / (f) [phone] documented in this encounter Plan of Treatment Upcoming Encounters Date Type Department Care Team (Late st Contact Info) Description 04/06/2024 9:30 EST Appointment [facility] [address] [place] [address] Angélica Hernandez MD [address] [place] [phone] 05/19/2024 13:30 EST Appointment [facility] [address] [place] [address] Angélica Hernandez MD [address] [phone] 05/28/2024 14:15 EDT Nurse Only [facility] [place] [address] [place], [place] [phone] 05/28/2024 14:30 EDT Office Visit [facility] [place] [address] [place], [place] [address] Kaiser Miller MD 111 [facility] 2 [place] [address] documented as of this encounter Visit Diagnoses Not on filedocumented in this encounter Care Teams Dewaterer Operator Relationship Specialty Start Date End Date Elizabeth Dsouza MD [address] [place] [address] PCP - General 02/13/12 documented as of this encounter
--- OUTSIDE RECORDS SUMMARY | 2024-03-05 17:41 | XMS_ITS | Encounter Summary ---
Author Organization [facility] Address [address] [place] [address] Care Team Providers Care Copra Sampler Name Role Phone Elizabeth Dsouza MD Primary Care Provider [phone] Reason for Referral * Radiology Services (Routine/Next Available) - Authorization Not Required Specialty Diagnoses / Procedures [facility] Referred To Contact Diagnoses Squamous cell carcinoma of lung, right (HCC-CMS) Procedures CT CHEST WO CONTRAST Acosta Alan MD Phone: tel: fax: [facility] Referral ID Status Reason Start Date Expiration Date Visits Requested Visits Authorized [id number] Authorization Not Required 09/09/2022 1 1 Encounter Details Date Type Department Care Team (Late st Contact Info) Description 09/09/[address] [facility] [address] [place] [address] Acosta Alan MD 111 [facility], Level 2 [place] [address] Squamous cell carcinoma of lung, [...] Melodie Hodge Date of : 1955 MR#: [id number] MD: Too Alan MD Diagnosis: Cancer Staging [...] chest. Signed By: Acosta Alan MD Radiation [facility] (p) [phone] / (f) [phone] documented in this encounter Plan of Treatment Upcoming Encounters Date Type Department Care Team (Late st Contact Info) Description 04/06/2024 9:30 EST Appointment [facility] [address] [place] [address] Angélica Hernnadez MD [address] [phone] 05/19/2024 13:30 EST Appointment [facility] [address] [place], [place] [phone] Angélica Hernandez MD [address] [address] 05/28/2024 14:[address] [facility] [address] [phone] 05/28/2024 14:[address] [facility] [address] [place] [phone] Kaiser Miller MD 111 [facility] 2 [place] [address] documented as of this encounter [...] is recommended. 3. No disease progression identified. [id number] Narrative 11/19/2022 12:00 EDT INDICATION: s/p SABR [...] is recommended. 3. No disease progression identified. [id number] us Acosta Alan MD IMG CT ORDERABLES Final R esult documented in this encounter Visit Diagnoses Diagnosis Squamous cell carcinoma of lung, right (HCC-CMS)- Primary Squamous cell carcinoma of lung, right (HCC-CMS) documented in this encounter Care Teams Copra Sampler Relationship Specialty Start Date End Date Elizabeth Dsouza MD [address] [place] [phone] PCP - General 02/13/12 documented as of this encounter
--- OUTSIDE RECORDS SUMMARY | 2024-03-05 17:41 | XMS_ITS | Encounter Summary ---
Author Organization [facility] Address [address] [place] [address] Care Team Providers Care Informatics Scientist Name Role Phone Elizabeth Dsouza MD Primary Care Provider [phone] Encounter Details Date Type Department Care Team (Late st Contact Info) Description 07/30/2022 5:50 EDT - 07/30/2022 23:30 EDT Hospital Encounter [facility] [place] [address] [place] [phone] Amilcar Damian MD MPH [address] [place] [address], Level 5 [place] [address] Discharge Disposition: Home or Self [...] Boyd RN documented as of this encounter Discharge Instructions [...] By federal law, results are released to [facility] at the same time they are released to your provider. Please call if any one of the following problems develop: *Increasing shortness of breath *Coughing up more than a tablespoon of blood at a time *Significant chest pain or discomfort *Temperature over 100.6 degrees F that occurs the day after the procedure or later Call the pulmonary office at [phone] between 8:30am-4:30pm. After 4:30pm the hospital operatorat [phone] and ask to have the pulmonary physician contestant coordinator be paged. documented in this encounter Medications [...] Code Departure Means Destination Home or Self Usp documented in this encounter H&P Notes * [...] with Chantix. Using e-cigarettes. Lives alone in [place], [place]. Maintains home. Denies functional limitations; although notes exertion is limited by right-sided sciatic pain. Denies chest pain or pressure. No palpitations. No exertional dyspnea, although minimal ambulation attributed to lower extremity discomfort. Not regularly followed by cardiology; underwent PCI in 1995 for NSTEMI. No further cardiac events. 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 No occupational exposures to chemicals or fumes. Social History: Lives alone in [place], [place]. Multiple pets within the home; including [...] discussed with Dr. Damian. Juliocesar Limon MD [facility] Fellow Attestation statement: I performed [...] and EBUS-TBNA. SURGEON: Luis Damian MD MPH CHIEF MEDIA OFFICER: Elizabeth Asencio NP (Please note, no qualified fellow was available assist in the procedure, thus Ms Asencio's presence was required as seed laboratory assistant. She assisted in performing robotic navigational [...] Luis Damian MD, MPH / CD Confirmation: [id number] Dictation ID: [id number] cc: documented in this encounter Plan of Treatment Upcoming Encounters Date Type Department Care Team (Late st Contact Info) Description 04/06/2024 9:30 EST Appointment [facility] [address] [place] [address] Angélica Hernandez MD [address] [place] [phone] 05/19/2024 13:30 EST Appointment [facility] [address] [place] [address] Angélica Hernandez MD [address] [place] [phone] 05/28/2024 14:[address] [facility] [address] [phone] 05/28/2024 14:[address] [facility] [address] [phone] Kaiser Miller MD [address] [place] [address] 2 [place] [address] documented as of this encounter Procedures Procedure Name Priority Date/Time Associated Diagnosis Comments XR CHEST PORTABLE 1 VIEW Routine 07/30/2022 10:39 EDT FL C-ARM 0-1 HOUR Routine 07/30/2022 9:3 5 EDT XR CHEST 2 VIEWS Routine 07/30/2022 9:34 EDT NON TRANSPORTATION MAINTENANCE WORKER/FNA CYTOLOGY Routine 07/30/2022 8:44 EDT BRONCHOSCOPY, WITH TRANSBRONCHIAL NEEDLE ASPIRATION BIOPSY 07/30/2022 7:39 EDT Lung nodule Special Needs O-Arm; Randolph Robot; Dive board bed. documented in this [...] IMPRESSION No pneumothorax status post bronchoscopic biopsy. us Elizabeth C W Luis M COMPOSITE TECHNICIAN IMG DIAGNOSTIC IMAGING ORDER BHARAT Final Result * FL C-ARM 0-1 HOUR (07/30/2022 9:35 EDT) Narrative 07/30/2022 9:35 EDT This is a non-reportable exam. Amilcar Damian MD MPH IMG OTHER IMAGING ORDERABLES Final Result * XR CHEST 2 VIEWS (07/30/2022 9:34 EDT) Narrative 07/30/2022 9:34 EDT This is a non-reportable exam. Result [facility] Amilcar Damian MD MPH IM DIAGNOSTIC ANNE MARIE GING ORDERABLES Final Result * NON TRANSPORTATION MAINTENANCE WORKER/FNA CYTOLOGY (07/30/2022 8:44 EDT) Note to Patient The following pathology results have been interpreted by your pathologist and may be available to you before your health provider has had the opportunity to review them. Please allow time for your provider to receive these results and explore management options, if applicable. 07/31/2022 9:58 T [facility] Final Diagnosis A. LUNG, [...] cells present. - Lymphocytes present. 07/31/2022 9:58 T [facility] Diagnosis Comment Malignant keratinized squamous cells are present in a background of keratin debris and necrosis. The tumor cells are present individually without sheets of cells being identified. The cell block shows a rare cluster of dysplastic squamous cells. The patient's previous cytology specimen ([id number]) and biopsy specimen ([id number]) have been reviewed. Wringer Operator slides of this case were reviewed at the intradepartmental consultation conference. 07/31/2022 9:58 [facility] Attestation By the signature below, the attending physician certifies that they have personally conducted a gross and/or microscopic examination of the described specimens and rendered or confirmed the above diagnosis. 07/31/2022 9:58 [facility] at 0958 Rapid Diagnosis A. [...] Kenneth Lawrence; 07/29/2022; 9:00 AM 07/31/2022 9:58 [facility] Clinical History Lung nodule 07/31/2022 9:58 [facility] Gross Description A. 12 fixed prepared slides, 1 air dried prepared slides, and 1 tube of RPMI for cell block processing were received. B. One vial of CytoLyt was received and processed by selective cellular enhancement technique. C. One vial of CytoLyt was received and processed by selective cellular enhancement technique. 07/31/2022 9:58 [facility] Performing Lab [facility] 07/31/2022 9:58 [facility] Scanned Images 07/31/2022 9:58 [facility] Fine Needle Aspirate ENTIRE RIGHT UPPER LOBE OF LUNG / Unknown 07/30/2022 8:44 EDT 07/30/2022 9:22 EDT Specimen obtained by fine needle aspiration procedure (specimen) LEFT LOWER PARATRACHEAL LYMPH NODE / Unknown 07/30/2022 9:12 EDT 07/30/2022 10:28 EDT Specimen obtained by fine needle aspiration procedure (specimen) STRUCTURE OF SUBCARINAL LYMPH NODE / Unknown 07/30/2022 9:17 EDT 07/30/2022 10:28 EDT us Amilcar Damian MD MPH PATHOLOGY ORDERABL ES Final Result [facility] [address] [place] [address] documented in this encounter Visit Diagnoses Diagnosis [...] may reflect changes made after this encounter. HYDROcodone-aceta minophen (NORCO) 5-325 mg tablet Take [...] 07/30/2022 documented in this encounter Care Teams Informatics Scientist Relationship Specialty Start Date End Date Elizabeth Dsouza MD [address] [place] [phone] PCP - General 02/13/12 documented as of this encounter
--- OUTSIDE RECORDS SUMMARY | 2024-03-05 17:41 | XMS_ITS | Encounter Summary ---
Author Organization [facility] Address [address] [place] [address] Care Team Providers Care Local Az Truck Driver Name Role Phone Elizabeth Dsouza MD Primary Care Provider [phone] Reason for Referral * Radiology Services (Routine/Next Available) - Receiving Office to Obtain Authorization Specialty Diagnoses / Procedures Referred By Loli rose Referred To Contact Diagnoses Lung mass Procedures CT SECONDARY READ CHEST Elizabeth Asencio NP Phone: tel: fax: [facility] Referral ID Status Reason Start Date Expiration Date Visits Requested Visits Authorized [id number] Receiving Office to Obtain Authorization 07/26/2022 1 1 Encounter Details Date Type Department Care Team (Late st Contact Info) Description 07/26/2022 Orders Only [facility] Cancer Center Hematology & Oncology - [facility] [address] [place] [address] Doroteo Ibrahim, RN Lung mass (Primary Dx) [...] Contact Info) Description 04/06/2024 9:30 EST Appointment [facility] [address] [place] [address] Angélica Hernandez MD [address] [place] [phone] 05/19/2024 13:30 EST Appointment [facility] [address] [place] [address] Angélica Hernandez MD [address] [place] [phone] 05/28/2024 14:15 EDT Nurse Only [facility] [address] [place] [phone] 05/28/2024 14:30 EDT Office Visit [facility] Treatment [address] [address] Kaiser Miller MD 111 [facility] 2 [place] [address] documented as of this encounter [...] structures, indeterminate.No specific discrete suspicious osseous lesion. us Elizabeth Asencio CIGARETTE VENDOR IMG CT ORDERABLES Final Resu lt documented in this encounter Visit Diagnoses Diagnosis Lung mass- Primary Swelling, mass, or lump in chest Lung mass Swelling, mass, or lump in chest documented in this encounter Care Teams Local Az Truck Driver Relationship Specialty Start Date End Date Elizabeth Dsouza MD [address] [place] [address] PCP - General 02/13/12 documented as of this encounter
--- OUTSIDE RECORDS SUMMARY | 2024-03-05 17:41 | XMS_ITS | Encounter Summary ---
Author Organization [facility] Address [address] [place] [address] Care Team Providers Care Rotary Dryer Operator Name Role Phone Elizabeth Dsouza MD Primary Care Provider [phone] Reason for Referral * (Routine/Next Available) - New Request Specialty Diagnoses / Procedures [facility] Referred To Contact Diagnoses Malignant neoplasm of unspecified part of right bronchus or lung (HCC-CMS) Procedures CT SIM EXAM Acosta Alan MD Phone: tel: fax: [facility] Referral ID Status Reason Start Date Expiration Date V isits Requested Visits Authorized [id number] New Request 08/15/2022 1 1 Reason for Visit * (Routine/Next Available) - New Request Specialty Diagnoses / Procedures [facility] Referred To Contact Diagnoses Malignant neoplasm of unspecified part of right bronchus or lung (HCC-CMS) Procedures CT SIM EXAM Acosta Alan MD Phone: tel: fax: [facility] Referral ID Status Reason Start Date Expiration Date V isits Requested Visits Authorized [id number] New Request 08/15/2022 1 1 Encounter Details Date Type Department Care Team (Latest Contact Info) Description 08/21/2022 13:00 EDT - 08/21/2022 23:59 EDT Hospital Encounter [facility] [address] [place] [address] Malignant neoplasm of unspecified part of right [...] Contact Info) Description 04/06/2024 9:30 EST Appointment [facility] Endoscopy [address] [place] [address] Angélica Hernandez MD [address] [place] [phone] 05/19/2024 13:30 EST Appointment [facility] [address] [place] [address] Angélica Hernandez MD [address] [place] [phone] 05/28/2024 14:15 EDT Nurse Only [facility] [place] [address] [place], [place] [phone] 05/28/2024 14:30 EDT Office Visit [facility] Treatment [address] [phone] Kaiser Miller MD 111 [facility] 2 [place] [address] documented as of this encounter Procedures Procedure Name Priority Date/Time Associated Diagnosis Comments CT SIM EXAM Routine 08/21/2022 13:55 EDT Malignant neoplasm of unspecified part of right bronchus or lung (HCC-CMS) documented in this encounter Results * CT SIM EXAM (08/21/2022 13:55 EDT) Narrative 08/21/2022 13:55 EDT This is a non-reportable exam. us Acosta Alan MD IMG OTHER IMAGING ORDERAB LES Final Result documented in this encounter Visit Diagnoses Diagnosis Malignant neoplasm of unspecified part of right bronchus or lung (HCC-CMS) documented in this encounter Care Teams Rotary Dryer Operator Relationship Specialty Start Date End Date Elizabeth Dsouza MD [address] [place] [phone] PCP - General 02/13/12 documented as of this encounter
--- OUTSIDE RECORDS SUMMARY | 2024-03-05 17:41 | XMS_ITS | Encounter Summary ---
Author Organization [facility] Address [address] [place] [address] Care Team Providers Care Hose Seamer Name Role Phone Elizabeth Dsouza MD Primary Care Provider [phone] Reason for Referral * Test (Routine/Next Available) - Authorization Not Required Specialty Diagnoses / Procedures Referred By Contac t Referred To Contact Diagnoses Lung nodule Procedures PULMONARY FUNCTION TESTING Juliocesar Limon MD Referral ID Status Reason Start Date Expiration Date Visits Requested Visits Authorized [id number] Authorization Not Required 07/15/2022 1 1 Reason for Visit * Test (Routine/Next Available) - Authorization Not Required Specialty Diagnoses / Procedures Referred By Loli rose Referred To Contact Diagnoses Lung nodule Procedures PULMONARY FUNCTION TESTING Juliocesar Limon MD Referral ID Status Reason Start Date Expiration Date Visits Requested Visits Authorized [id number] Authorization Not Required 07/15/2022 1 1 Encounter Details Date Type Department Care Team (Latest Contact Info) Description 07/26/2022 13:10 EDT - 07/26/2022 23:59 EDT Hospital Encounter [facility] Pulmonary Function Lab - [facility] [address] [place] [address] Lung nodule Discharge Disposition: Home [...] Boyd RN documented as of this encounter Medications at [...] Take 3 Tablets by mouth at bedtime. oxyCODONE-acetam inophen (PERCOCET) 5-325 mg per tablet Take 1 Tablet by mouth as needed for Pain. 07/30/2022 documented as of this encounter Discharge Disposition Disposition Code Departure Means Destination Home or Self Care documented in this encounter Progress Notes * Helen Zhu PFT - 07/26/2022 1415 EDT Testing was performed and recorded in [employer]. See complete report in Procedures. documented in this encounter Plan of Treatment Upcoming Encounters Date Type Department Care Team (Late st Contact Info) Description 04/06/2024 9:30 EST Appointment [facility] Endoscopy [address] [place] [address] Angélica Hernandez MD [address] [phone] 05/19/2024 13:30 EST Appointment [facility] Endoscopy [address] [place] [address] Angélica Hernandez MD [address] [phone] 05/28/2024 14:15 EDT Nurse Only [facility] [place] [facility] Life [facility] Treatment [address] [phone] 05/28/2024 14:[address] [facility] Cancer Treatment [address] [phone] Kaiser Miller MD 111 [facility] 2 [place] [address] documented as of this encounter Procedures Procedure Name Priority Date/Time Associated Diagnosis Comments PULMONARY FUNCTION TESTING Routine 07/26/2022 14:15 EDT Lung nodule documented in this encounter Results * PULMONARY FUNCTION TESTING (07/26/2022 14:15 EDT) 07/26/2022 14:1 5 EDT us Juliocesar Limon MD PFT ORDERABLES Final Result [facility] PFT documented in this encounter Visit [...] 07/26/2022 documented in this encounter Care Teams Hose Seamer Relationship Specialty Start Date End Date Elizabeth Dsouza MD [address] [place] [phone] PCP - General 02/13/12 documented as of this encounter
--- OUTSIDE RECORDS SUMMARY | 2024-03-05 17:41 | XMS_ITS | Encounter Summary ---
Author Organization [facility] Address [address] [place] [address] Care Team Providers Care Track Moving Machine Operator Name Role Phone Elizabeth Dsouza MD Primary Care Provider [phone] Reason for Visit * Reason Onset Date Comments Biopsy Results 07/31/2022 Encounter Details Date Type Department Care Team (Late st Contact Info) Description 07/31/2022 Telephone [facility] Pulmonology & Critical Care - [address] [phone] Elizabeth Asencio, ELEMENTARY SPECIAL EDUCATION TEACHER [address] [place] [address], Level [address] [place] [address] Biopsy Results Social History Tobacco [...] Boyd RN documented as of this encounter Miscellaneous Notes [...] Will plan to present her case at [facility] on 08/05 and have her meet with [...] Contact Info) Description 04/06/2024 9:30 EST Appointment [facility] Endoscopy [address] [place], [place] [phone] Angélica Hernandez MD [address] [place] [phone] 05/19/2024 13:30 EST Appointment [facility] Endoscopy [address] [place], [place] [address] Angélica Hernandez MD [address] [phone] 05/28/2024 14:15 EDT Nurse Only [facility] [address] [place] [address] 05/28/2024 14:30 EDT Office Visit [facility] [address] [place] [address] Kaiser Miller MD 111 [facility] 2 [place] [address] documented as of this encounter Visit Diagnoses Not on filedocumented in this encounter Care Teams Track Moving Machine Operator Relationship Specialty Start Date End Date Elizabeth Dsouza MD [address] [place] [phone] PCP - General 02/13/12 documented as of this encounter
--- OUTSIDE RECORDS SUMMARY | 2024-03-05 17:41 | XMS_ITS | Encounter Summary ---
Author Organization [facility] Address [address] [place] [address] Care Team Providers Care Grounds Foreman Name Role Phone Elizabeth Dsouza MD Primary Care Provider [phone] Encounter Details Date Type Department Care Team (Late st Contact Info) Description 09/04/2022 Results Only [facility] Radiation Oncology - [address] [phone] Unknown, Provider, Social History Tobacco Use Types [...] Contact Info) Description 04/06/2024 9:30 EST Appointment [facility] Endoscopy [address] [place], [place] [address] Angélica Hernandez MD [address] [place] [phone] 05/19/2024 13:30 EST Appointment [facility] [address] [place] [address] Angélica Hernandez MD [address] [place] [phone] 05/28/2024 14:15 EDT Nurse Only [facility] [place] [facility] Cancer Treatment [address] [phone] 05/28/2024 14:30 EDT Office Visit [facility] [place] [facility] [place] [address] [place], [place] [address] Kaiser Miller MD 111 [facility] 2 [place] [address] documented as of this encounter [...] [facility] 09/04/2022 11:2 4 EDT us Provider Unknown RADIATION ONCOLOGY ORDERABLE S Final Result [facility] documented in this encounter Visit Diagnoses Not on filedocumented in this encounter Care Teams Grounds Foreman Relationship Specialty Start Date End Date Elizabeth Dsouza MD [address] [place] [phone] PCP - General 02/13/12 documented as of this encounter
--- OUTSIDE RECORDS SUMMARY | 2024-03-05 17:41 | XMS_ITS | Encounter Summary ---
Author Organization [facility] Address [address] [place] [address] Care Team Providers Care Slubber Operator Name Role Phone Elizabeth Dsouza MD Primary Care Provider [phone] Encounter Details Date Type Department Care Team (Late st Contact Info) Description 07/26/[address] [facility] Pulmonology & Critical Care - [address] [phone] Amilcar Damian MD MPH 111 [facility], Level 5 [place] [address] Social History Tobacco Use Types [...] Boyd, ABEL documented as of this encounter Miscellaneous Notes * Telephone Encounter - Maynor Hutson - 07/26/2022 2227 EDT Bronchoscopy Patient Instructions After careful medical [...] - You will NEED TO BRING A INTERVENTIONAL CARDIOLOGIST. Please make sure you have someone accompany [...] Coumadin, Warfarin, etc.) please speak with your certified medical technician assistant about this. Your appointment date: 07/30/22 and time: 11:30 am arrival for a 1:30pm start. Please check in at Registration on the 3rd floor of the [facility] building. You will then proceed to Surgery and Procedures located on the 3rd floor in the [facility] of the [facility] building. Please call the PFT Lab at [phone] or the Pulmonary department at [phone] if you have any concerns, questions or need clarification about any of the above instructions. Thank you. documented in this encounter Plan of Treatment Upcoming Encounters Date Type Department Care Team (Late st Contact Info) Description 04/06/2024 9:30 EST Appointment [facility] Endoscopy [address] [place] [address] Angélica Hernandez MD [address] [place] [phone] 05/19/2024 13:30 EST Appointment [facility] Endoscopy [address] [place] [address] Angélica Hernandez MD [address] [place] [phone] 05/28/2024 14:15 EDT Nurse Only [facility] Cancer [facility] [address] [place] [address] 05/28/2024 14:30 EDT Office Visit [facility] Cancer [address] [place] [address] Kaiser Miller MD 111 [facility], Level 2 [place] [address] documented as of this encounter Visit Diagnoses Not on filedocumented in this encounter Care Teams Slubber Operator Relationship Specialty Start Date End Date Elizabeth Dsouza MD [address] [place] [phone] PCP - General 02/13/12 documented as of this encounter
--- OUTSIDE RECORDS SUMMARY | 2024-03-05 17:41 | XMS_ITS | Encounter Summary ---
Author Organization [facility] Address [address] [place] [address] Care Team Providers Care Supervisor Harvesting Name Role Phone Elizabeth Dsouza MD Primary Care Provider Encounter Details Date Type Department Care Team (Late st Contact Info) Description 07/30/2022 7:25 EDT - 07/30/2022 10:[address] [facility] OR [address] [place] [phone] Amilcar Damian MD MPH [address] [place] [address], Level 5 [place] [address] Robotic and navigational bronchoscopy with intraop CT for biopsies, possible washings, and endobronchial ultrasound-guided needle biopsies [32649 (CPT??)] Surgery Details Date/Time Status Location OR Service Patient Class Case Cl ass Case Type Trauma Case? 07/30/2022 0725 Posted [facility] OR [address] Outpatient Surgery H - Elective Panel 1 Procedure LRB Anes Op Region Wound Class Comments Robotic and navigational bronchoscopy with intraop CT for biopsies, possible washings, and endobronchial ultrasound-guided needle biopsies N/A General Chest N/A O arm Cytopathology 120 minutes Surgeon Surgeon Role Service Panel Elizabeth Asencio, WEB PRODUCTION ARTIST Assisting Pulmonary 1 Amilcar Damian MD MPH Primary Pulmonary 1 Quintin Joseph, DO Fellow Pulmonary 1 Special Needs O-Arm; [place] Robot; Dive board bed. documented in this [...] By federal law, results are released to [facility] at the same time they are released to your provider. Please call if any one of the following problems develop: *Increasing shortness of breath *Coughing up more than a tablespoon of blood at a time *Significant chest pain or discomfort *Temperature over 100.6 degrees F that occurs the day after the procedure or later Call the pulmonary office at [phone] between 8:30am-4:30pm. After 4:30pm the hospital operatorat [phone] and ask to have the pulmonary physician agronomy teacher be paged. documented in this encounter Medications [...] Code Departure Means Destination Home or Self [facility] documented in this encounter H&P Notes * [...] with Chantix. Using e-cigarettes. Lives alone in [place], [place]. Maintains home. Denies functional limitations; although notes exertion is limited by right-sided sciatic pain. Denies chest pain or pressure. No palpitations. No exertional dyspnea, although minimal ambulation attributed to lower extremity discomfort. Not regularly followed by cardiology; underwent PCI in 1995 for NSTEMI. No further cardiac events. 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 No occupational exposures to chemicals or fumes. Social History: Lives alone in [place], [place]. Multiple pets within the home; including cats, dogs, and parakeets. Denies issues with mold or mildew. Family History: No family history of lung cancer. 4 adult children are healthy. PMHx: HTN HLD CAD s/p PCI [1995] at [facility] Lower extremity pain PSHx: has a [...] discussed with Dr. Damian. Juliocesar Limon MD [facility] Fellow Attestation statement: I performed [...] - Amilcar Damian MD MPH - 07/30/2022 0590 EDT OPERATIVE REPORT SERVICE DATE: 07/30/2022 PROCEDURE: Robotic and navigational bronchoscopy with intraoperative cone beam CT scan verification, radial endobronchial ultrasound confirmation for fine needle aspiration and EBUS-TBNA. SURGEON: Luis Damian MD MPH YARN TESTER: Elizabeth Asencio NP (Please note, no qualified fellow was available assist in the procedure, thus Ms Asencio's presence was required as first aid officer. She assisted in performing robotic navigational bronchoscopy [...] Luis Damian MD, MPH / CD Confirmation: [id number] Dictation ID: [id number] cc: documented in this encounter Plan of Treatment Upcoming Encounters Date Type Department Care Team (Late st Contact Info) Description 04/06/2024 9:30 EST Appointment [facility] Endoscopy [address] [place], [place] [phone] Angélica Hernandez MD [address] [place] [phone] 05/19/2024 13:30 EST Appointment [facility] Endoscopy [address] [place], [place] [address] Angélica Hernandez MD [address] [place] [phone] 05/28/2024 14:15 EDT Nurse Only [facility] Cancer Treatment [place] [address] [place], [place] [address] 05/28/2024 14:30 EDT Office Visit [facility] Cancer [facility] [address] [place], [place] [address] Kaiser Miller MD 111 [facility] 2 [place] [address] documented as of this encounter Procedures Procedure Name Priority Date/Time Associated Diagnosis Comments XR CHEST PORTABLE 1 VIEW Routine 07/30/2022 10:39 EDT FL C-ARM 0-1 HOUR Routine 07/30/2022 9:3 5 EDT XR CHEST 2 VIEWS Routine 07/30/2022 9:34 EDT NON DETENTION ATTENDANT/FNA CYTOLOGY Routine 07/30/2022 8:44 EDT BRONCHOSCOPY, WITH TRANSBRONCHIAL NEEDLE ASPIRATION BIOPSY 07/30/2022 7:39 EDT Lung nodule Special Needs O-Arm; [place] Robot; Dive board bed. documented in this [...] bronchoscopic biopsy. Elizabeth Asencio NP IMG DIAGNOSTIC IMAGING ORDER BHARAT Final Result * FL C-ARM 0-1 HOUR (07/30/2022 9:35 EDT) Narrative 07/30/2022 9:35 EDT This is a non-reportable exam. Amilcar Damian MD MPH IMG OTHER IMAGING ORDERABLES Final Result * XR CHEST 2 VIEWS (07/30/2022 9:34 EDT) Narrative 07/30/2022 9:34 EDT This is a non-reportable exam. Amilcar Damian MD MPH IMG DIAGNOSTIC ANNE MARIE GING ORDERABLES Final Result * NON DETENTION ATTENDANT/FNA CYTOLOGY (07/30/2022 8:44 EDT) Note to Patient The following pathology results have been interpreted by your pathologist and may be available to you before your health provider has had the opportunity to review them. Please allow time for your provider to receive these results and explore management options, if applicable. 07/31/2022 9:[address] [facility] Final Diagnosis A. LUNG, [...] cells present. - Lymphocytes present. 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 The tumor cells are present individually without sheets of cells being identified. The cell block shows a rare cluster of dysplastic squamous cells. The patient's previous cytology specimen ([id number]) and biopsy specimen ([id number]) have been reviewed. Sparker And Patcher slides of this case were reviewed at the intradepartmental consultation conference. 07/31/2022 9:58 [facility] Attestation By the signature below, the attending physician certifies that they have personally conducted a gross and/or microscopic examination of the described specimens and rendered or confirmed the above diagnosis. 07/31/2022 9:58 [facility] at 0958 Rapid Diagnosis [...] Kenneth Lawrence; 07/29/2022; 9:00 AM 07/31/2022 9:58 [facility] Clinical History Lung nodule 07/31/2022 9:58 [facility] Gross Description A. 12 fixed prepared slides, 1 air dried prepared slides, and 1 tube of RPMI for cell block processing were received. B. One vial of CytoLyt was received and processed by selective cellular enhancement technique. C. One vial of CytoLyt was received and processed by selective cellular enhancement technique. 07/31/2022 9:58 [facility] Performing Lab [facility] 07/31/2022 9:[address] [facility] Scanned Images 07/31/2022 9:[address] [facility] Fine Needle Aspirate ENTIRE [...] MD MPH PATHOLOGY ORDERABL ES Final Result [facility] [address] [place] [address] documented in this encounter Visit Diagnoses Diagnosis [...] 07/30/2022 documented in this encounter Care Teams Supervisor Harvesting Relationship Specialty Start Date End Date Elizabeth Dosuza MD [facility] [place] [place] [address] PCP - General 02/13/12 documented as of this encounter
--- OUTSIDE RECORDS SUMMARY | 2024-03-05 17:41 | XMS_ITS | Encounter Summary ---
Author Organization [facility] Address [address] [place] [address] Care Team Providers Care Electrical Test Engineer Name Role Phone Elizabeth Dsouza MD Primary Care Provider [phone] Encounter Details Date Type Department Care Team (Late st Contact Info) Description 09/04/2022 11:00 EDT - 09/04/2022 23:59 EDT Hospital Encounter [facility] [place] [facility] Cancer Treatment [place] [address] [place] [address] Acosta Alan MD [address] [place] [address] 2 [place] [address] Discharge Disposition: Home or Self [...] Contact Info) Description 04/06/2024 9:30 EST Appointment [facility] Endoscopy [address] [place] [address] Angélica Hernandez MD [address] [place] [phone] 05/19/2024 13:30 EST Appointment [facility] Endoscopy [address] [place] [address] Angélica Hernandez MD [address] [phone] 05/28/2024 14:15 EDT Nurse Only [facility] [place] [facility] Cancer [facility] [address] [place], [place] [phone] 05/28/2024 14:30 EDT Office Visit [facility] [place] [facility] Cancer [facility] [address] [place], [place] [address] Kaiser Miller MD 111 [facility] 2 [place] [address] documented as of this encounter Visit Diagnoses Not on filedocumented in this encounter Care Teams Electrical Test Engineer Relationship Specialty Start Date End Date Elizabeth Dsouza MD [address] [place] [address] PCP - General 02/13/12 documented as of this encounter
--- OUTSIDE RECORDS SUMMARY | 2024-03-05 17:41 | XMS_ITS | Encounter Summary ---
Author Organization [facility] Address [address] [place] [address] Care Team Providers Care Sleeve Fixer Name Role Phone Elizabeth Dsouza MD Primary Care Provider [phone] Reason for Referral * Radiology Services (Routine/Next Available) - Receiving Office to Obtain Authorization Specialty Diagnoses / Procedures Referred By Contac t Referred To Contact Diagnoses Lung mass Procedures CT SECONDARY READ CHEST Elizabeth Asencio NP Phone: tel: fax: [facility] Referral ID Status Reason Start Date Expiration Date Visits Requested Visits Authorized [id number] Receiving Office to Obtain Authorization 07/26/2022 1 1 Reason for Visit * Radiology Services (Routine/Next Available) - Receiving Office to Obtain Authorization Specialty Diagnoses / Procedures Referred By Loli rose Referred To Contact Diagnoses Lung mass Procedures CT SECONDARY READ CHEST Elizabeth Asencio NP Phone: tel: fax: [facility] Referral ID Status Reason Start Date Expiration Date Visits Requested Visits Authorized [id number] Receiving Office to Obtain Authorization 07/26/2022 1 1 Encounter Details Date Type Department Care Team (Latest Contact Info) Description 07/26/2022 10:19 EDT - 07/26/2022 13:09 EDT Hospital Encounter [facility] Radiology - Main [place] [address] [place], [place] [phone] Lung mass Discharge Disposition: Home or Self [...] Contact Info) Description 04/06/2024 9:30 EST Appointment [facility] Endoscopy [address] [place] [address] Angélica Hernandez MD [address] [phone] 05/19/2024 13:30 EST Appointment [facility] Endoscopy [address] [place], [place] [address] Angélica Hernandez MD [address] [phone] 05/28/2024 14:[address] [facility] Cancer Treatment [address] [phone] 05/28/2024 14:30 EDT Office Visit [facility] Cancer Treatment [address] [phone] Kaiser Miller MD 111 [facility] 2 [place] [address] documented as of this encounter [...] specific discrete suspicious osseous lesion. Elizabeth Asencio AERIAL TRAM OPERATOR IMG CT ORDERABLES Final Resu lt documented in this encounter Visit Diagnoses Diagnosis Lung mass Swelling, mass, or lump in chest documented in this encounter Care Teams Sleeve Fixer Relationship Specialty Start Date End Date Elizabeth Dsouza MD [address] [place] [address] PCP - General 02/13/12 documented as of this encounter
--- OUTSIDE RECORDS SUMMARY | 2024-03-05 17:41 | XMS_ITS | Encounter Summary ---
Author Organization [facility] Address [address] [place] [address] Care Team Providers Care Ride Attendant Name Role Phone Elizabeth Dsouza MD Primary Care Provider [phone] Encounter Details Date Type Department Care Team (Late st Contact Info) Description 09/06/2022 11:00 EDT - 09/06/2022 23:59 EDT Hospital Encounter [facility] Cancer Treatment [place] [address] [place] [address] Acosta Alan MD [address] [place] [address] 2 [place] [address] Discharge Disposition: Home or Self [...] EST Appointment [facility] Endoscopy [address] [place] [address] Angélica Hernandez MD [address] [place] [phone] 05/19/2024 13:30 EST Appointment [facility] Endoscopy [address] [place] [address] Angélica Hernandez MD [address] [phone] 05/28/2024 14:15 EDT Nurse Only [facility] Cancer [facility] [address] [place], [place] [phone] 05/28/2024 14:30 EDT Office Visit [facility] Cancer [facility] [address] [place], [place] [address] Kaiser Miller MD 111 [facility] 2 [place] [address] documented as of this encounter Visit Diagnoses Not on filedocumented in this encounter Care Teams Ride Attendant Relationship Specialty Start Date End Date Elizabeth Dsouza MD [address] [place] [address] PCP - General 02/13/12 documented as of this encounter
--- OUTSIDE RECORDS SUMMARY | 2024-03-05 17:41 | XMS_ITS | Encounter Summary ---
Author Organization [facility] Address [address] [place] [address] Care Team Providers Care Towel Sorter Name Role Phone Elizabeth Dsouza MD Primary Care Provider [phone] Reason for Referral * Radiology Services (Routine/Next Available) - Closed Specialty Diagnoses / Procedures Referred By Contac t Referred To Contact Nuclear Medicine Diagnoses Lung nodule Procedures PET CT EYE TO THIGH Amilcar Damian MD MPH Phone: tel: fax: [facility] Referral ID Status Reason Start Date Expiration Date Visits Re quested Visits Authorized [id number] Closed 07/19/2022 09/02/2022 1 1 Reason for Visit * Radiology Services (Routine/Next Available) - Closed Specialty Diagnoses / Procedures Referred By [facility] Referred To Contact Nuclear Medicine Diagnoses Lung nodule Procedures PET CT EYE TO THIGH Amilcar Damian MD MPH Phone: tel: fax: [facility] Referral ID Status Reason Start Date Expiration Date Visits Re quested Visits Authorized [id number] Closed 07/19/2022 09/02/2022 1 1 Encounter Details Date Type Department Care Team (Latest Contact Info) Description 07/26/2022 8:24 EDT - 07/26/2022 10:18 EDT Hospital Encounter [facility] Radiology Nuclear Medicine and PET [address] [address] Lung nodule Discharge Disposition: Home or Self [...] Contact Info) Description 04/06/2024 9:30 EST Appointment [facility] Endoscopy [address] [place] [address] Angélica Hernandez MD [address] [phone] 05/19/2024 13:30 EST Appointment [facility] Endoscopy [address] [place], [place] [address] Angélica Hernandez MD [address] [phone] 05/28/2024 14:15 EDT Nurse Only [facility] [place] [facility] Life Cancer Treatment [address] [phone] 05/28/2024 14:30 EDT Office Visit [facility] Cancer Treatment [address] [address] Kaiser Miller MD 111 [facility] 2 [place] [phone] documented as of this encounter Procedures Procedure [...] the IV injection of 8.24 mCi of [id number], 3D TOF PET imaging was obtained from the skull base to upper thighs using a [employer] ??PET/CT system. ??The blood glucose level prior [...] following the IV injection of 8.24 mCi [id number], 3D TOF PET imaging was obtained from the skullbase to upper thighs using a [employer] digital PET/CT system. Theblood glucose level prior [...] andcholelithiasis. Amilcar Damian MD MPH IMG NM ORDERABLES Final Result * (ABNORMAL) POCT GLUCOSE, INTERFACED (07/26/2022 9:05 EDT) Glucose, POC 123(H) 70 - 100 mg/dL 07/26/2022 9:07 EDT [facility] HN LAB POC COMMENT (GLUCOSE) Test Performed by Nursing Services 07/26/2022 9:07 EDT [facility] Blood CAPILLARY BLOOD / Unknown 07/26/2022 9:05 EDT 07/26/2022 9:06 EDT Provider Cordelia JOHNSON POINT OF CARE TEST ORDERABLE S Final Result [facility] [address] [place] [address] documented in this encounter Visit Diagnoses Diagnosis [...] 07/26/2022 documented in this encounter Care Teams Towel Sorter Relationship Specialty Start Date End Date Elizabeth Dsouza MD [address] [place] [address] PCP - General 02/13/12 documented as of this encounter
--- OUTSIDE RECORDS SUMMARY | 2024-03-05 17:41 | XMS_ITS | Encounter Summary ---
Author Organization [facility] Address [address] [place] [address] Care Team Providers Care Artificial Stone Setter Name Role Phone Elizabeth Dsouza MD Primary Care Provider [phone] Reason for Visit * Reason Onset Date Comments Appointment Related 07/29/2022 Encounter Details Date Type Department Care Team (Late st Contact Info) Description 07/29/2022 Telephone [facility] Pulmonology & Critical Care - [address] [phone] Amilcar Damian MD MPH [address] [place] [address], Level [address] [place] [address] Appointment Related Social History Tobacco [...] No 12/28/2021 16:46 EDT Motylenski, Héctor, RN documented as of this encounter Miscellaneous Notes * Telephone Encounter - Maribel BeckRaheel - 07/29/2022 7793 EDT Patient was called this past Friday [...] - You will NEED TO BRING A INTERLOCKING TOWER OPERATOR. Please make sure you have someone accompany [...] Coumadin, Warfarin, etc.) please speak with your reed maker about this. Your appointment is on 07.30.2022 with a scheduled start time of 7:30AM and an arrival time of 5:30AM. Please check in at Registration on the 3rd floor of the [facility] building. You will then proceed to Surgery and Procedures located on the 3rd floor in the [facility] of the [facility] building. Please call Pulmonary at [phone] or the PFT Lab at [phone] if you have any concerns, questions or need clarification about any of the above instructions. Thank you. documented in this encounter Plan of Treatment Upcoming Encounters Date Type Department Care Team (Late st Contact Info) Description 04/06/2024 9:30 EST Appointment [facility] Endoscopy [address] [place] [address] Angélica Hernandez MD [address] [place] [phone] 05/19/2024 13:30 EST Appointment [facility] Endoscopy [address] [place], [place] [address] Angélica Hernandez MD [address] [phone] 05/28/2024 14:15 EDT Nurse Only [facility] Cancer [facility] 130 [place], [place] [address] 05/28/2024 14:30 EDT Office Visit [facility] Cancer [facility] [address] [place], [place] [address] Kaiser Miller MD 111 [facility], Level [address] [place] [address] documented as of this encounter Visit Diagnoses Not on filedocumented in this encounter Care Teams Artificial Stone Setter Relationship Specialty Start Date End Date Elizabeth Dsouza MD [address] [place] [phone] PCP - General 02/13/12 documented as of this encounter
--- OUTSIDE RECORDS SUMMARY | 2024-03-05 17:41 | XMS_ITS | Encounter Summary ---
Author Organization [facility] Address [address] [place] [address] Care Team Providers Care Scouring Machine Operator Name Role Phone Elizabeth Dsouza MD Primary Care Provider [phone] Encounter Details Date Type Department Care Team (Late st Contact Info) Description 09/06/2022 Results Only [facility] Radiation Oncology - [address] [phone] Unknown, Provider, Social History Tobacco Use Types [...] Contact Info) Description 04/06/2024 9:30 EST Appointment [facility] Endoscopy [address] [place] [address] Angélica Hernandez MD [address] [place] [phone] 05/19/2024 13:30 EST Appointment [facility] Endoscopy [address] [place] [address] Angélica Hernandez MD [address] [place] [phone] 05/28/2024 14:15 EDT Nurse Only [facility] Cancer Treatment [address] [phone] 05/28/2024 14:30 EDT Office Visit [facility] - [facility] Cancer Treatment [place] [address] [place], [place] [address] Kaiser Miller MD 111 [facility] 2 [place] [address] documented as of this encounter [...] ARIA RADIATION ONCOLOGY 09/06/2022 11:2 3 EDT us Provider Unknown RADIATION ONCOLOGY ORDERABLE S Final Result [facility] RADIATION ONCOLOGY documented in this encounter Visit Diagnoses Not on filedocumented in this encounter Care Teams Scouring Machine Operator Relationship Specialty Start Date End Date Elizabeth Dsouza MD [address] [place] [phone] PCP - General 02/13/12 documented as of this encounter
--- OUTSIDE RECORDS SUMMARY | 2024-03-05 17:41 | XMS_ITS | Encounter Summary ---
Author Organization [facility] Address [address] [place] [address] Care Team Providers Care Faculty Dean Name Role Phone Elizabeth Dsouza MD Primary Care Provider [phone] Encounter Details Date Type Department Care Team (Late st Contact Info) Description 09/06/2022 Documentation Visit [facility] Cancer Treatment [place] [address] [place] [address] Khris Watson MD 111 [facility], [facility] 2 [place] [address] Social History Tobacco Use Types [...] using the same immobilization devices. A medical office technology instructor was present to verify the patient's positional [...] target location were continuously monitored using the MakuCell RT system and direct visualization with video [...] Contact Info) Description 04/06/2024 9:30 EST Appointment [facility] Endoscopy [address] [place], [place] [address] Angélica Hernandez MD [address] [phone] 05/19/2024 13:30 EST Appointment [facility] Endoscopy [address] [place] [address] Angélica Hernandez MD [address] [place] [phone] 05/28/2024 14:15 EDT Nurse Only [facility] Life Cancer Treatment [address] [address] 05/28/2024 14:30 EDT Office Visit [facility] Life Cancer Treatment [address] [address] Kaiser Miller MD 111 [facility], [facility] 2 [place] [address] documented as of this encounter Visit Diagnoses Not on filedocumented in this encounter Care Teams Faculty Dean Relationship Specialty Start Date End Date Elizabeth Dsouza MD [address] [place] [phone] PCP - General 02/13/12 documented as of this encounter
--- OUTSIDE RECORDS SUMMARY | 2024-03-05 17:41 | XMS_ITS | Encounter Summary ---
Author Organization [facility] Address [address] [place] [address] Care Team Providers Care Rfid Specialist Name Role Phone Elizabeth Dsouza MD Primary Care Provider [phone] Encounter Details Date Type Department Care Team (Late Contact Info) Description 08/01/2022 Prep for Procedure [facility] Pulmonology & Critical Care - [facility] [address] [place], [place] [phone] Amilcar Damian MD MPH 111 [facility], Level 5 [place] [address] Social History Tobacco Use Types [...] Contact Info) Description 04/06/2024 9:30 EST Appointment [facility] Endoscopy [address] [place] [address] Angélica Hernandez MD [address] [phone] 05/19/2024 13:30 EST Appointment [facility] Endoscopy [address] [place], [place] [phone] Angélica Hernandez MD [address] [phone] 05/28/2024 14:15 EDT Nurse Only [facility] Cancer Treatment [address] [phone] 05/28/2024 14:30 EDT Office Visit [facility] Cancer Treatment [place] [address] [place], [place] [phone] Kaiser Miller MD 111 [facility] 2 [place] [address] documented as of this encounter Visit Diagnoses Not on filedocumented in this encounter Care Teams Rfid Specialist Relationship Specialty Start Date End Date Elizabeth Dsouza MD 4 [place] [phone] PCP - General 02/13/12 documented as of this encounter
--- OUTSIDE RECORDS SUMMARY | 2024-03-05 17:41 | XMS_ITS | Encounter Summary ---
Author Organization [facility] Address [address] [place] [address] Care Team Providers Care Direct Care Professional Name Role Phone Elizabeth Dsouza MD Primary Care Provider [phone] Encounter Details Date Type Department Care Team (Latest Contact Info) Description 08/28/2022 17:30 EDT - 08/28/2022 23:[address] [facility] Cancer Treatment [place] [address] [place] [address] Discharge Disposition: Home or Self Care Social [...] Contact Info) Description 04/06/2024 9:30 EST Appointment [facility] Endoscopy [address] [place], [place] [address] Angélica Hernandez MD [address] [place] [phone] 05/19/2024 13:30 EST Appointment [facility] Endoscopy [address] [place], [place] [address] Angélica Hernandez MD [address] [phone] 05/28/2024 14:15 EDT Nurse Only [facility] Cancer [facility] 130 [place], [place] [address] 05/28/2024 14:30 EDT Office Visit [facility] Cancer [facility] 130 [place], [place] [address] Kaiser Miller MD 111 [facility], Level 2 [place] [address] documented as of this encounter Visit Diagnoses Not on filedocumented in this encounter Care Teams Direct Care Professional Relationship Specialty Start Date End Date Elizabeth Dsouza MD [address] [place] [phone] PCP - General 02/13/12 documented as of this encounter
--- OUTSIDE RECORDS SUMMARY | 2024-03-05 17:41 | XMS_ITS | Encounter Summary ---
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) Belkis Holm MD Phone: tel: fax: Acosta Alan MD Phone: tel: fax: Referral ID Status Reason Start Date Expiration Date Visits Requested Visits Authorized [id number] Authorization Not Required Specialty Services Required 3 1 1 Question Answer Reason for Request: RUL early stage squamous cell carcinoma, eval for radiation treatment Reason for Visit * Reason Comments New Patient Visit Encounter Details Date Type Department Care Team (Late st Contact Info) Description 08/05/2022 15:00 EDT Office Visit [facility] Cardiothoracic Surgery - [address] [address] Belkis Holm MD [address] [place] [address], Level 5 [place] [address] Primary cancer of right upper lobe of [...] documented in this encounter Progress Notes * Belkis Holm MD - 08/05/2022 1500 EDT [facility] Thoracic Surgery Services Clinic Visit Note Date: [...] JÚNIOR ??? COPD (chronic obstructive pulmonary disease) ([facility]) 07/23/22- well controlled w/ use of [...] skull base to upper thighs using a [employer] BATTERY digital PET/CT system. The blood glucose level [...] treatment. Will refer to Dr. Alan at [facility] for evaluation. - Encouraged smoking cessation Belkis Holm MD documented in this encounter Plan of Treatment Upcoming Encounters Date Type Department Care Team (Late st Contact Info) Description 04/06/2024 9:30 EST Appointment [facility] Endoscopy [address] [place] [address] Angélica Hernandez MD [address] [place] [phone] 05/19/2024 13:30 EST Appointment [facility] Endoscopy [address] [place] [address] Angélica Hernandez MD [address] [phone] 05/28/2024 14:15 EDT Nurse Only [facility] Life Cancer Treatment [place] [address] [place], [place] [address] 05/28/2024 14:30 EDT Office Visit [facility] Life Cancer Treatment [place] [address] [place] [address] Kaiser Miller MD 111 [facility], [facility] 2 [place] [address] Scheduled Referrals Name Type Priority Associated Diagnoses Order Schedule AMB CONS/FOLLOW UP RADIATION ONCOLOGY Outpatient Referral Routine/Next Available Primary cancer of right upper lobe of lung (HCC-CMS) Expected: 08/12/2022 (Approximate), Expires: 08/06/2023 documented as of this encounter Visit Diagnoses Diagnosis Primary cancer of right upper lobe of lung (HCC-CMS)- Primary documented in this encounter Care Teams Mall Manager Relationship Specialty Start Date End Date Elizabeth Dsouza MD [address] [place] [address] PCP - General 02/13/12 documented as of this encounter
--- OUTSIDE RECORDS SUMMARY | 2024-03-05 17:41 | XMS_ITS | Encounter Summary ---
Author Organization [facility] Address [address] [place] [address] Care Team Providers Care Utility Clerk Name Role Phone Elizabeth Dsouza MD Primary Care Provider [phone] Encounter Details Date Type Department Care Team (Latest Contact Info) Description 09/03/2022 17:00 EDT - 09/03/2022 23:59 EDT Hospital Encounter [facility] Cancer Treatment [place] [address] [place] [address] Discharge Disposition: Home or Self Care Social [...] Contact Info) Description 04/06/2024 9:30 EST Appointment [facility] Endoscopy [address] [place], [place] [address] Angélica Hernandez MD [address] [place] [phone] 05/19/2024 13:30 EST Appointment [facility] Endoscopy [address] [place], [place] [address] Angélica Hernandez MD [address] [phone] 05/28/2024 14:15 EDT Nurse Only [facility] Cancer [facility] 130 [place], [place] [address] 05/28/2024 14:30 EDT Office Visit [facility] Cancer [facility] 130 [place], [place] [address] Kaiser Miller MD 111 [facility], Level 2 [place] [address] documented as of this encounter Visit Diagnoses Not on filedocumented in this encounter Care Teams Utility Clerk Relationship Specialty Start Date End Date Elizabeth Dsouza MD [address] [place] [phone] PCP - General 02/13/12 documented as of this encounter
--- OUTSIDE RECORDS SUMMARY | 2024-03-05 17:41 | XMS_ITS | Encounter Summary ---
Author Organization [facility] Address [address] [place] [address] Care Team Providers Care Baling Press Operator Name Role Phone Elizabeth Dsouza MD Primary Care Provider [phone] Encounter Details Date Type Department Care Team (Late st Contact Info) Description 08/21/2022 Documentation Visit [facility] Cancer Treatment [place] [address] [place] [address] Lorraine Pan, ABEL Social History Tobacco Use [...] documented in this encounter Progress Notes * Lorraine Pan, RN - 08/21/2022 1414 EDT [facility] Cancer [facility] Patient Education/Needs Assessment Date: 08/21/22 What is the patient most concerned about with treatment? Concerns about efficacy and better health Does the patient feel adequately informed about he treatment process? Yes Are there any barriers to getting the patient to treatment (transportation, work etc)? No Was the patient accompanied for this encounter? Yes, by her daughter, Vani LEARNING STYLE What time of day does the patient learn best? What is the patient preferred method of learning? Patient's primary language: Trinidadian Does the patient require an cardiology clinical consultant? No Does the patient have any barriers [...] [x] MARIA E Radiation Therapy for LUNG [x][facility]-specific information Audio/Visual [] MARIA E RT Answers: [...] is very excited about this. Signed: LORRAINE PAN, RN documented in this encounter Plan of Treatment Upcoming Encounters Date Type Department Care Team (Late st Contact Info) Description 04/06/2024 9:30 EST Appointment [facility] Endoscopy [address] [place] [address] Angélica Hernandez MD [address] [phone] 05/19/2024 13:30 EST Appointment [facility] Endoscopy [address] [place] [address] Angélica Hernandez MD [address] [place] [phone] 05/28/2024 14:15 EDT Nurse Only [facility] Life Cancer Treatment [address] [address] 05/28/2024 14:30 EDT Office Visit [facility] Cancer Treatment [address] [address] Kaiser Miller MD [address] [facility] 2 [place] [address] documented as of this encounter Visit Diagnoses Not on filedocumented in this encounter Care Teams Baling Press Operator Relationship Specialty Start Date End Date Elizabeth Dsouza MD 4 [facility] [place] [place] [address] PCP - General 02/13/12 documented as of this encounter
--- OUTSIDE RECORDS SUMMARY | 2024-03-05 17:41 | XMS_ITS | Encounter Summary ---
Author Organization [facility] Address [address] [place] [address] Care Team Providers Care Sketch Liner Name Role Phone Elizabeth Dsouza MD Primary Care Provider [phone] Reason for Referral * Test (Routine/Next Available) - Authorization Not Required Specialty Diagnoses / Procedures Referred By [facility] Referred To Contact Diagnoses Lung nodule Procedures PULMONARY FUNCTION TESTING Amilcar Damian MD MPH Phone: tel: fax: Referral ID Status Reason Start Date Expiration Date Visits Requested Visits Authorized [id number] Authorization Not Required 07/26/2022 1 1 Encounter Details Date Type Department Care Team (Late st Contact Info) Description 07/26/2022 Orders Only [facility] Pulmonology & Critical Care - [facility] [address] [place] [address] Audrey Mix, ABEL Lung nodule (Primary Dx) [...] EST Appointment [facility] Endoscopy [address] [place] [address] Angélica Hernandez MD [address] [place] [phone] 05/19/2024 13:30 EST Appointment [facility] Endoscopy [address] [place], [place] [address] Angélica Hernandez MD [address] [place] [phone] 05/28/2024 14:15 EDT Nurse Only [facility] Cancer Treatment [address] [phone] 05/28/2024 14:30 EDT Office Visit [facility] Cancer Treatment [address] [phone] Kaiser Miller MD 111 [facility] 2 [place] [address] Scheduled Orders Name Type Priority Associated Diagnoses Orde r Schedule PULMONARY FUNCTION TESTING PFT Routine Lung nodule 1 Occurrences starting 07/26/2022 until 01/27/2024 documented as of this encounter Visit Diagnoses Diagnosis Lung nodule- Primary Solitary pulmonary nodule documented in this encounter Care Teams Sketch Liner Relationship Specialty Start Date End Date Elizabeth Dsouza MD [address] [place] [address] PCP - General 02/13/12 documented as of this encounter
--- OUTSIDE RECORDS SUMMARY | 2024-03-05 17:41 | XMS_ITS | Encounter Summary ---
Author Organization [facility] Address [address] [place] [address] Care Team Providers Care Playback Operator Name Role Phone Elizabeth Dsouza MD Primary Care Provider [phone] Encounter Details Date Type Department Care Team (Late st Contact Info) Description 07/30/2022 7:44 EDT Anesthesia Event [facility] [place] [address] [place], [place] [phone] Gaetano Amaral MD 111 [facility], Level 2 [place] [address] Anesthesia Record Procedure Summary Procedure [...] Boyd, RN documented as of this encounter OR Notes [...] JÚNIOR ??? COPD (chronic obstructive pulmonary disease) ([facility]) 07/23/22- well controlled w/ use of [...] Note PAT Note by Dorothy Herron APRN CNKenneth at 07/23/2022 12:40 Version 2 of 2 [...] follow up and advise if necessary. MARISSA ORITZ RN 07/23/22 12:07 07/15/2022 note from pulmonary pt stated she was not taking Pletal. Message sent to pulmonary for guidance re:stopping this medication prior to surgery. Per Audrey Mix-she is calling PCP to obtain a plan. Dorothy Herron APRN, MSN @[phone] PAT Note by Marissa Ortiz RN at 07/23/2022 12:40 Version 1 [...] if necessary. MARISSA ORTIZ RN 07/23/22 12:07 documented in this encounter Plan of Treatment Upcoming Encounters Date Type Department Care Team (Late st Contact Info) Description 04/06/2024 9:30 EST Appointment [facility] Endoscopy [address] [place] [address] Angélica Hernandez MD [address] [place] [phone] 05/19/2024 13:30 EST Appointment [facility] Endoscopy [address] [place] [address] Angélica Hernandez MD [address] [place] [phone] 05/28/2024 14:[address] [facility] Cancer Treatment [address] [address] 05/28/2024 14:[address] [facility] Cancer Treatment [address] [address] Kaiser Miller MD 111 [facility] 2 [place] [address] documented as of this encounter Procedures Procedure Name Priority Date/Time Associated Diagnosis Comments ANESTHESIA INTUBATION Routine 07/30/2022 7:53 EDT documented in this encounter Results * MT AN ELECTIVE ENDOTRACHEAL AIRWAY (07/30/2022 7:53 EDT) Narrative [facility] POINT OF CARE - 07/30/2022 7:53 EDT Gaetano mAaral MD ? 07/30/2022 ??8:24 Airway Date/Time: 07/30/2022 [...] teeth Number of attempts at approach: 1 us Gaetano Amaral MD ANESTHESIA ORDERABLES Fin al Result [facility] POINT OF CARE documented in this encounter [...] mg documented in this encounter Care Teams Playback Operator Relationship Specialty Start Date End Date Elizabeth Dsouza MD [address] [place] [phone] PCP - General 02/13/12 documented as of this encounter
--- OUTSIDE RECORDS SUMMARY | 2024-03-05 17:41 | XMS_ITS | Encounter Summary ---
Author Organization [facility] Address [address] [place] [address] Care Team Providers Care Scheme Technician Name Role Phone Elizabeth Dsouza MD Primary Care Provider [phone] Reason for Visit * Reason Onset Date Comments Appointment Related 08/01/2022 Encounter Details Date Type Department Care Team (Late st Contact Info) Description 08/01/2022 Telephone [facility] Multidisciplinary Lung Clinic - [address] [phone] Belkis Holm MD [address] [place] [address], Level 5 [place] [address] Appointment Related Social History Tobacco [...] Telephone Encounter - Uma Portillo - 08/01/2022 5779 EDT Called and left message for patient to call to confirm the appointment for FridayAugust 05 at 2:00 for her breathing test and 3:[address] Holm. This is up on the 5th floor [facility] in the Medicine out patient clinic. documented in this encounter Plan of Treatment Upcoming Encounters Date Type Department Care Team (Late st Contact Info) Description 04/06/2024 9:30 EST Appointment [facility] Endoscopy [address] [place] [address] Angélica Hernandez MD [address] [place], [place] [phone] 05/19/2024 13:30 EST Appointment [facility] Endoscopy [address] [place] [address] Angélica Hernandez MD [address] [place] [phone] 05/28/2024 14:15 EDT Nurse Only [facility] Life Cancer Treatment [address] [phone] 05/28/2024 14:30 EDT Office Visit [facility] Life Cancer Treatment [address] [address] Kaiser Miller MD 111 [facility] 2 [place] [address] documented as of this encounter Visit Diagnoses Not on filedocumented in this encounter Care Teams Scheme Technician Relationship Specialty Start Date End Date Elizabeth Dsouza MD [address] [place] [address] PCP - General 02/13/12 documented as of this encounter
--- OUTSIDE RECORDS SUMMARY | 2024-03-05 17:41 | XMS_ITS | Encounter Summary ---
Author Organization [facility] Address [address] [place] [address] Care Team Providers Care Supervisor [employer] Name Role Phone Elizabeth Dsouza MD Primary Care Provider [phone] Encounter Details Date Type Department Care Team (Late st Contact Info) Description 09/09/2022 Results Only [facility] Radiation Oncology - [address] [phone] Unknown, Provider, Social History Tobacco Use Types [...] [facility] Endoscopy [address] [place] [address] Angélica Hernandez MD [address] [place] [phone] 05/19/2024 13:30 EST Appointment [facility] Endoscopy [address] [place] [address] Angélica Hernandez MD [address] [place] [phone] 05/28/2024 14:15 EDT Nurse Only [facility] Cancer Treatment [address] [phone] 05/28/2024 14:30 EDT Office Visit [facility] Cancer Treatment [place] [address] [place], [place] [address] Kaiser Miller MD [address] [facility] 2 [place] [address] documented as of this encounter [...] [facility]A RADIATION ONCOLOGY 09/09/2022 10:3 6 EDT us Provider Unknown RADIATION ONCOLOGY ORDERABLE S Final Result [facility] RADIATION ONCOLOGY documented in this encounter Visit Diagnoses Not on filedocumented in this encounter Care Teams Supervisor [employer] Relationship Specialty Start Date End Date Elizabeth Dsouza MD [address] [place] [phone] PCP - General 02/13/12 documented as of this encounter
--- OUTSIDE RECORDS SUMMARY | 2024-03-05 17:41 | XMS_ITS | Encounter Summary ---
Author Organization [facility] Address [address] [place] [address] Care Team Providers Care Music Education Adjunct Professor Name Role Phone Elizabeth Dsouza MD Primary Care Provider [phone] Reason for Visit * Reason Comments Lung Cancer * Consult (Routine/Next Available) - Authorization Not Required Specialty Diagnoses / Procedures [facility] Referred To Contact Radiation Oncology Diagnoses Primary cancer of right upper lobe of lung (HCC-CMS) Belkis Holm MD Phone: tel: fax: Acosta Alan MD Phone: tel: fax: Referral ID Status Reason Start Date Expiration Date Visits Requested Visits Authorized [id number] Authorization Not Required Specialty Services Required 3 1 1 Encounter Details Date Type Department Care Team (Late st Contact Info) Description 08/13/2022 10:30 EDT Initial consult [facility] [address] [place] [address] Acosta Alan MD 111 [facility], Level 2 [place] [address] Squamous cell carcinoma of lung, [...] of Assessment Author No 12/28/2021 16:46 EDT Héctro Boyd RN * Because of a physical, [...] Cell Lung Cancer: Findings of an International Bradford Consensus Study. Gissel Pelletier al, Practical Radiation Oncology, May-June/2017). 3. Smoking cessation was advised and we will attempt to coordinate smoking cessation counselor referral HISTORY OF PRESENT ILLNESS: Melodieprasad Hodge, who goes by Yesy, is a 67 y.o. female from [facility] who is referred for consultation [...] Holm evaluated her in thoracic surgery at [facility]. She noted that the patient [...] climbing a flight of stairs without stopping mcc up. On flat ground she does not [...] JÚNIOR ??? COPD (chronic obstructive pulmonary disease) ([facility]) 07/23/22- well controlled w/ use [...] of the visit. Acosta Alan MD Radiation Oncology-[facility] (p) [phone] / (f) [phone] documented in this encounter Plan of Treatment Upcoming Encounters Date Type Department Care Team (Late st Contact Info) Description 04/06/2024 9:30 EST Appointment [facility] Endoscopy [address] [place], [place] [address] Angélica Hernandez MD [address] [place] [phone] 05/19/2024 13:30 EST Appointment [facility] Endoscopy [address] [place], [place] [address] Angélica Hernandez MD [address] [place] [phone] 05/28/2024 14:15 EDT Nurse Only [facility] [address] [place] [address] 05/28/2024 14:30 EDT Office Visit [facility] [address] [place] [address] Kaiser Miller MD 111 [facility], [facility] 2 [place] [phone] documented as of this encounter Visit Diagnoses Diagnosis Squamous cell carcinoma of lung, right (HCC-CMS)- Primary documented in this encounter Care Teams Music Education Adjunct Professor Relationship Specialty Start Date End Date Elizabeth Dsouza MD 4 [place] [phone] PCP - General 02/13/12 documented as of this encounter
--- OUTSIDE RECORDS SUMMARY | 2024-03-05 17:41 | XMS_ITS | Encounter Summary ---
Author Organization [facility] Address [address] [place] [address] Care Team Providers Care Science Education Professor Name Role Phone Elizabeth Dsouza MD Primary Care Provider [phone] Encounter Details Date Type Department Care Team (Late st Contact Info) Description 08/13/2022 Documentation Visit [facility] [place] [facility] Radiation Oncology - [address] [address] Divina Penny, ABEL Social History Tobacco Use [...] Progress Notes * Divina Penny, RN - 08/13/2022 1000 EDT Images from [...] Description 04/06/2024 9:30 EST Appointment [facility] Endoscopy [address] [place] [address] Angélica Hernandez MD [address] [place] [phone] 05/19/2024 13:30 EST Appointment [facility] Endoscopy [address] [place] [address] Angélica Hernandez MD [address] [phone] 05/28/2024 14:15 EDT Nurse Only [facility] [place] [address] [place] [address] 05/28/2024 14:30 EDT Office Visit [facility] [address] [place] [address] Kaiser Miller MD 111 [facility], [facility], Level 2 [place] [address] documented as of this encounter Visit Diagnoses Not on filedocumented in this encounter Care Teams Science Education Professor Relationship Specialty Start Date End Date Elizabeth Dsouza MD 4 [place] [phone] PCP - General 02/13/12 documented as of this encounter
--- OUTSIDE RECORDS SUMMARY | 2024-03-05 17:42 | XMS_ITS | Encounter Summary ---
Author Organization [facility] Address [address] [place] [address] Care Team Providers Care Tool Lathe Operator Name Role Phone Elizabeth Dsouza MD Primary Care Provider [phone] Encounter Details Date Type Department Care Team (Late st Contact Info) Description 05/04/2021 Lab Requisition [facility] Pathology & Laboratory Medicine - [address] [address] Outr Resulting Lab, Provider Social History Tobacco Use Types Packs/Day Years Used Date Smoking Tobacco: Never Assessed Interpersonal Safety Answer Date Record ed Physically Hurt Never 10/17/2019 Verbally Threaten Not on file 10/17/2019 Comments Unknown Sex and Gender Information Value Date Recorded Sex Assigned at Female 01/26/2024 8:14 EST Legal Sex Female 18:06 EST Gender Identity Female 01/04/2021 7:40 EDT Sexual Orientation Not on file documented as of this encounter Plan of Treatment Upcoming Encounters Date Type Department Care Team (Late st Contact Info) Description 04/06/2024 9:30 EST Appointment [facility] Endoscopy [address] [place], [place] [address] Angélica Hernandez MD [address] [phone] 05/19/2024 13:30 EST Appointment [facility] Endoscopy [address] [place] [address] Angélica Hernandez MD [address] [phone] 05/28/2024 14:15 EDT Nurse Only [facility] Cancer [facility] 130 [place] [address] 05/28/2024 14:30 EDT Office Visit [facility] Cancer [facility] 130 [place] [address] Kaiser Miller MD 111 [facility] 2 [place] [address] documented as of this encounter Procedures Procedure Name Priority Date/Time Associated Diagnosis Comments ZZCOVID-19 TEST [facility] PCR Today 05/03/2021 16:30 EST COVID-19 TESTING Routine 05/03/2021 16:3 0 EST documented in this encounter Results * COVID-19 TEST [facility] PCR (05/03/2021 16:30 EST) Swab 05/03/2021 16:3 0 EST 05/04/2021 16:59 EST us Provider Outr Resulting Lab MICROBIOLOGY - GENER AL ORDERABLES Final Result [facility] [address] [place] [address] * COVID-19 TESTING (05/03/2021 16:30 EST) COVID-19 rt-PCR Result Negative Negative 05/05/2021 11:49 EST [facility] Comment: This test has [...] was performed using the forrest SARS-CoV-2 assay ([employer] on the Forrest 6800 System Performing Lab Forrest 6800 [facility] 05/05/2021 11:49 EST [facility] Swab 05/03/2021 16:3 0 EST 05/04/2021 16:59 EST us Provider Outr Resulting Lab MICROBIOLOGY - GENER AL ORDERABLES Final Result [facility] [address] [place] [address] documented in this encounter Visit Diagnoses Not on filedocumented in this encounter Care Teams Tool Lathe Operator Relationship Specialty Start Date End Date Elizabeth Dsouza MD 4 [place] [phone] PCP - General 02/13/12 documented as of this encounter
--- OUTSIDE RECORDS SUMMARY | 2024-03-05 17:42 | XMS_ITS | Encounter Summary ---
Author Organization [facility] Address [address] [place] [address] Care Team Providers Care Produce Assistant Name Role Phone Elizabeth Dsouza MD Primary Care Provider [phone] Encounter Details Date Type Department Care Team (Late st Contact Info) Description 07/18/2022 Abstract [facility] Pulmonology & Critical Care - [facility] [address] [place], [place] [id number] Elizabeth Dsouza MD [address] [place] [phone] Social History Tobacco Use Types Packs/Day [...] Info) Description 04/06/2024 9:[address] [facility] Endoscopy [address] [place] [address] Angélica Hernandez MD [address] [phone] 05/19/2024 13:[address] [facility] Endoscopy [address] [place] [address] Angélica Hernandez MD [address] [phone] 05/28/2024 14:15 EDT Nurse Only [facility] Life Cancer Treatment [address] [address] 05/28/2024 14:30 EDT Office Visit [facility] Cancer Treatment [address] [address] Kaiser Miller MD 111 [facility], [facility] [place] [facility] 2 [place] [address] documented as of this encounter Visit Diagnoses Not on filedocumented in this encounter Care Teams Produce Assistant Relationship Specialty Start Date End Date Elizabeth Dsouza MD [address] [place] [phone] PCP - General 02/13/12 documented as of this encounter
--- OUTSIDE RECORDS SUMMARY | 2024-03-05 17:42 | XMS_ITS | Encounter Summary ---
Author Organization [facility] Address [address] [place] [address] Care Team Providers Care Oracle Architect Name Role Phone Elizabeth Dsouza MD Primary Care Provider [phone] Reason for Referral * Radiology Services (Routine/Next Available) - Closed Specialty Diagnoses / Procedures Referred By Loli rose Referred To Contact Nuclear Medicine Diagnoses Lung nodule Procedures PET CT EYE TO THIGH Amilcar Damian MD MPH Phone: tel: fax: [facility] Referral ID Status Reason Start Date Expiration Date Visits Re quested Visits Authorized [id number] Closed 07/19/2022 09/02/2022 1 1 Encounter Details Date Type Department Care Team (Late st Contact Info) Description 07/16/2022 Orders Only [facility] Cancer Center Hematology & Oncology - [facility] [address] [place] [address] Doroteo Ibrahim, RN Lung nodule (Primary Dx) Social History [...] Contact Info) Description 04/06/2024 9:30 EST Appointment [facility] Endoscopy [address] [place] [address] Angélica Hernandez MD [address] [place] [phone] 05/19/2024 13:30 EST Appointment [facility] Endoscopy [address] [place] [address] Angélica Hernandez MD [address] [place] [phone] 05/28/2024 14:15 EDT Nurse Only [facility] Life Cancer Treatment [address] [address] 05/28/2024 14:30 EDT Office Visit [facility] Cancer Treatment [place] [address] [place], [place] [address] Kaiesr Miller MD [address] [place] [address] 2 [place] [address] documented as of this encounter [...] the IV injection of 8.24 mCi of [id number], 3D TOF PET imaging was obtained from the skull base to upper thighs using a [employer] ??PET/CT system. ??The blood glucose level prior [...] following the IV injection of 8.24 mCi [id number], 3D TOF PET imaging was obtained from the skullbase to upper thighs using a [employer] digital PET/CT system. Theblood glucose level prior [...] MD MPH IMG NM ORDERABLES Final Result documented in this encounter Visit Diagnoses Diagnosis Lung nodule- Primary Solitary pulmonary nodule Lung nodule Solitary pulmonary nodule documented in this encounter Care Teams Oracle Architect Relationship Specialty Start Date End Date Elizabeth Dsouza MD [address] [place] [phone] PCP - General 02/13/12 documented as of this encounter
--- OUTSIDE RECORDS SUMMARY | 2024-03-05 17:42 | XMS_ITS | Encounter Summary ---
Author Organization [facility] Address [address] [place] [address] Care Team Providers Care Drill Sharpener Name Role Phone Elizabeth Dsouza MD Primary Care Provider [phone] Reason for Visit * (Routine/Next Available) - Receiving Office to Obtain Authorization Specialty Diagnoses / Procedures Referred By Loli rose Referred To Contact Procedures NM OUTSIDE IMAGES Imaging, External Referral ID Status Reason Start Date Expiration Date Visits Requested Visits Authorized [id number] Receiving Office to Obtain Authorization 2022 1 1 Encounter Details Date Type Department Care Team (Latest Contact Info) Description 06/06/2022 - 06/06/2022 23:59 EDT Hospital Encounter [facility] Secondary Reads [place] Discharge Disposition: Home [...] once daily afterwards. 60 Each 2 01/17/2021 3 ferrous sulfate 324 mg (65 mg iron) tablet,delayed release (DR/EC) Take 324 mg by mouth. Bedtime empty stomache 3 magnesium oxide (MAG-OX) 400 mg (241.3 mg magnesium) tablet Take 400 mg by mouth daily. 3 pyridoxine, vitamin B6, (VITAMIN B6) 50 mg tablet Take 1 Tablet by mouth daily. Please call the neurology office for further instructions. 90 Tablet 1 01/23/2021 3 documented as of this encounter Discharge Disposition Disposition Code Departure Means Destination Home or Self Care documented in this encounter Plan of Treatment Upcoming Encounters Date Type Department Care Team (Late st Contact Info) Description 04/06/2024 9:30 EST Appointment [facility] Endoscopy [address] [place] [address] Angélica Hernandez MD [address] [place] [phone] 05/19/2024 13:30 EST Appointment [facility] Endoscopy [address] [place] [address] Angélica Hernandez MD [address] [phone] 05/28/2024 14:15 EDT Nurse Only [facility] 130 [place] [address] 05/28/2024 14:30 EDT Office Visit [facility] 130 [place] [address] Kaiser Miller MD 111 [facility] 2 [place] [address] documented as of this encounter Procedures Procedure Name Priority Date/Time Associated Diagnosis Comments NM OUTSIDE IMAGES Routine 06/06/2022 16: 09 EDT documented in this encounter Results * NM OUTSIDE IMAGES (06/06/2022 16:09 EDT) Narrative 2022 16:09 EDT This is a non-reportable exam. us External Imaging IMG OTHER IMAGING ORDERABLES Fi nal Result documented in this encounter Visit Diagnoses Not on filedocumented in this encounter Care Teams Drill Sharpener Relationship Specialty Start Date End Date Elizabeth Dsouza MD [address] [facility] [address] PCP - General 02/13/12 documented as of this encounter
--- OUTSIDE RECORDS SUMMARY | 2024-03-05 17:42 | XMS_ITS | Encounter Summary ---
Author Organization [facility] Address [address] [place] [address] Care Team Providers Care Gauger Chief Name Role Phone Elizabeth Dsouza MD Primary Care Provider [phone] Reason for Visit * Reason Onset Date Comments Coordination Of Care 07/18/2022 Encounter Details Date Type Department Care Team (Late st Contact Info) Description 07/18/2022 Telephone [facility] Pulmonology & Critical Care - [address] [phone] Amilcar Damian MD MPH [address] [place] [address], Level [address] [place] [address] Coordination Of Care Social History [...] encounter Miscellaneous Notes * Telephone Encounter - LouAna Luisa - 07/18/2022 1040 EDT Belkis, with [facility], notes that she had received [...] Description 04/06/2024 9:[address] [facility] Endoscopy [address] [place], [place] [address] Angélica Hernandez MD [address] [place] [phone] 05/19/2024 13:[address] [facility] Endoscopy [address] [place] [address] Angélica Hernandez MD [address] [place] [phone] 05/28/2024 14:15 EDT Nurse Only [facility] Life Cancer Treatment [address] [phone] 05/28/2024 14:30 EDT Office Visit [facility] Life Cancer Treatment [address] [address] Kaiser Miller MD [address] [place] [address] 2 [place] [address] documented as of this encounter Visit Diagnoses Not on filedocumented in this encounter Care Teams Gauger Chief Relationship Specialty Start Date End Date Elizabeth Dsouza MD [address] [place] [phone] PCP - General 02/13/12 documented as of this encounter
--- OUTSIDE RECORDS SUMMARY | 2024-03-05 17:42 | XMS_ITS | Encounter Summary ---
Author Organization [facility] Address [address] [place] [address] Care Team Providers Care Stock Letterer Name Role Phone Elizabeth Dsouza MD Primary Care Provider Reason for Visit * Reason Onset Date Comments Follow-up 07/23/2022 Encounter Details Date Type Department Care Team (Late st Contact Info) Description 07/23/2022 Telephone [facility] Pulmonology & Critical Care - [facility] [address] [place] [address] Audrey Mix RN Follow-up Social History Tobacco Use Types [...] Boyd, RN documented as of this encounter Miscellaneous Notes * Telephone Encounter - Audrey Mix RN - 07/23/2022 8471 EDT Called PCP office for medication reconciliation [...] EST Appointment [facility] Endoscopy [address] [place] [address] Angélica Hernandez MD [address] [place] [phone] 05/19/2024 13:30 EST Appointment [facility] Endoscopy [address] [place] [address] Angélica Hernandez MD [address] [place] [phone] 05/28/2024 14:15 EDT Nurse Only [facility] Life Cancer Treatment [address] [phone] 05/28/2024 14:30 EDT Office Visit [facility] Cancer Treatment [address] [address] Kaiser Miller MD 111 [facility] 2 [place] [address] documented as of this encounter Visit Diagnoses Not on filedocumented in this encounter Care Teams Stock Letterer Relationship Specialty Start Date End Date Elizabeth Dsouza MD [address] [place] [phone] PCP - General 02/13/12 documented as of this encounter
--- OUTSIDE RECORDS SUMMARY | 2024-03-05 17:42 | XMS_ITS | Encounter Summary ---
Author Organization [facility] Address [address] [place] [address] Care Team Providers Care Medical Or Surgical Instrument Maker Name Role Phone Elizabeth Dsouza MD Primary Care Provider [phone] Reason for Visit * (Routine/Next Available) - Receiving Office to Obtain Authorization Specialty Diagnoses / Procedures Referred By Loli rose Referred To Contact Procedures XR OUTSIDE IMAGES RIGHT LOWER EXTREMITY Imaging, External Referral ID Status Reason Start Date Expiration Date Visits Requested Visits Authorized [id number] Receiving Office to Obtain Authorization 08/09/2022 1 1 Encounter Details Date Type Department Care Team (Latest Contact Info) Description 05/22/2022 Hospital Encounter [facility] Secondary Reads [place] Discharge Disposition: Home [...] Contact Info) Description 04/06/2024 9:30 EST Appointment [facility] Endoscopy [address] [place] [address] Angélica Hernandez MD [address] [place] [phone] 05/19/2024 13:30 EST Appointment [facility] Endoscopy 130 [place] [address] Angélica Hernandez MD [address] [phone] 05/28/2024 14:15 EDT Nurse Only [facility] Life Cancer Treatment [place] [address] [place], [place] [address] 05/28/2024 14:30 EDT Office Visit [facility] 130 [place] [address] Kaiser Miller MD 111 [facility] 2 [place] [address] documented as of this encounter Procedures Procedure Name Priority Date/Time Associated Diagnosis Comments XR OUTSIDE IMAGES RIGHT LOWER EXTREMITY Routine 05/22/2022 13:10 EST documented in this encounter Results * XR OUTSIDE IMAGES RIGHT LOWER EXTREMITY (05/22/2022 13:10 EST) Narrative 08/09/2022 13:10 EDT This is a non-reportable exam. us External Imaging IMG OTHER IMAGING ORDERABLES Fi nal Result documented in this encounter Visit Diagnoses Not on filedocumented in this encounter Care Teams Medical Or Surgical Instrument Maker Relationship Specialty Start Date End Date Elizabeth Dsouza MD 4 [facility] [place] [address] PCP - General 02/13/12 documented as of this encounter
--- OUTSIDE RECORDS SUMMARY | 2024-03-05 17:42 | XMS_ITS | Encounter Summary ---
Author Organization [facility] Address [address] [place] [address] Care Team Providers Care Credit Card Associate Name Role Phone Elizabeth Dsouza MD Primary Care Provider [phone] Encounter Details Date Type Department Care Team (Late st Contact Info) Description 01/17/2021 Lab Requisition [facility] Pathology & Laboratory Medicine - [address] [address] Outr Resulting Lab, Provider Social History Tobacco [...] Appointment [facility] Endoscopy 130 [place], [place] [address] Angélica Hernandez MD [address] [phone] 05/19/2024 13:30 EST Appointment [facility] Endoscopy [address] [place] [address] Angélica Hernandez MD [address] [phone] 05/28/2024 14:15 EDT Nurse Only [facility] Cancer Treatment [place] [address] [place] [address] 05/28/2024 14:30 EDT Office Visit [facility] 130 [place] [address] Kaiser Miller MD 111 [facility], Level 2 [place] [address] documented as of this encounter [...] 55.8 - 66.1 % 01/18/2021 15:14 EDT [facility] Alpha-1 % 4.6 2.9 - 4.9 % 01/18/2021 15:14 EDT [facility] Alpha-2 % 11.6 7.1 - 11.8 % 01/18/2021 15:14 EDT [facility] Beta % 9.8 8.4 - 13.1 % 01/18/2021 15:14 EDT [facility] Gamma % 12.8 11.1 - 18.8 % 01/18/2021 15:14 EDT [facility] SPEP Comment No apparent monoclonal protein seen on serum electrophoresis 01/18/2021 15:14 EDT [facility] Comment:See scanned/suppleme ntary report. Total Protein 7.5 6.3 - 8.2 g/dL 01/18/2021 15:14 EDT [facility] Blood VENOUS BLOOD / Unknown 01/17/2021 10:21 EDT 01/17/2021 21:47 EDT us Provider Outr Resulting Lab CHEMISTRY & BLOOD GA S ORDERABLES Final Result Performing Organization Address [facility] Co de Phone Number [facility] [address] [place] [address] * PROTEIN, TOTAL (01/17/2021 10:21 EDT) Blood VENOUS BLOOD / Unknown 01/17/2021 10:21 EDT 01/17/2021 21:47 EDT us Provider Outr Resulting Lab CHEMISTRY & BLOOD GA S ORDERABLES Final Result Performing Organization Address [facility] Co de Phone Number [facility] [address] [place] [address] documented in this encounter Visit Diagnoses Not on filedocumented in this encounter Care Teams Credit Card Associate Relationship Specialty Start Date End Date Elizabeth Dsouza MD 4 [place] [phone] PCP - General 02/13/12 documented as of this encounter
--- OUTSIDE RECORDS SUMMARY | 2024-03-05 17:42 | XMS_ITS | Encounter Summary ---
Author Organization [facility] Address [address] [place] [address] Care Team Providers Care Child Center Assistant Name Role Phone Elizabeth Dsouza MD Primary Care Provider [phone] Encounter Details Date Type Department Care Team (Late st Contact Info) Description 05/28/2022 Lab Requisition [facility] Pathology & Laboratory Medicine - [facility] [address] [place] [address] Outr Resulting Lab, Provider Social History Tobacco [...] Boyd, ABEL documented as of this encounter Plan of Treatment Upcoming Encounters Date Type Department Care Team (Late st Contact Info) Description 04/06/2024 9:30 EST Appointment [facility] Endoscopy [address] [place], [place] [phone] Angélica Hernandez MD [address] [phone] 05/19/2024 13:30 EST Appointment [facility] Endoscopy [address] [place] [address] Angélica Hernandez MD [address] [phone] 05/28/2024 14:15 EDT Nurse Only [facility] Cancer [address] [phone] 05/28/2024 14:30 EDT Office Visit [facility] [address] [place] [address] Kaiser Miller MD 111 [facility] 2 [place] [address] documented as of this encounter [...] Albumin, Urine % 32.9 N/A % 05/31/19 15:[address] [facility] Albumin, Urine mg/dL 14 mg/dL 05/30/2022 15:[address] [facility] Globulins, Urine % 67.1 N/A % 05/30/2022 15:[address] [facility] Globulins, Urine mg/dL 28 mg/dL 05/30/2022 15:[address] [facility] UPEP Comment See Comment 05/30/2022 15:[address] [facility] Comment:Electrophoresis scre ening performed; Immunotyping to follow. ??See scanned/supplementary report. Immunotyping, Urine Current Interpretation : Negative for free monoclonal light chains. Interpreted by: Kannan Hamilton MD, PhD 05/30/2022 15:17. 05/30/2022 15:[address] [facility] Total Protein, Urine 42 See Note mg/dL 05/30/2022 15:[address] [facility] Comment: NOTE: Reference range has not been established for total protein concentration in random urine specimens. Urine URINE / Unknown 05/28/2022 1 1:20 EDT 05/29/2022 16:34 EDT Provider Outr Resulting Lab URINALYSIS ORDERABLE S Final Result Performing Organization Address [facility] de Phone Number [facility] [address] [place] [address] * PROTEIN, TOTAL, RANDOM, URINE (05/28/2022 11:20 EDT) Urine URINE / Unknown 05/28/2022 1 1:20 EDT 05/29/2022 16:34 EDT us Provider Outr Resulting Lab URINALYSIS ORDERABLE S Final Result Performing Organization Address [facility] Co de Phone Number [facility] [address] [place] [address] documented in this encounter Visit Diagnoses Not on filedocumented in this encounter Care Teams Child Center Assistant Relationship Specialty Start Date End Date Elizabeth Dsouza MD [address] [place] [phone] PCP - General 02/13/12 documented as of this encounter
--- OUTSIDE RECORDS SUMMARY | 2024-03-05 17:42 | XMS_ITS | Encounter Summary ---
Author Organization [facility] Address [address] [place] [address] Care Team Providers Care Junior Engineer Name Role Phone Elizabeth Dsouza MD Primary Care Provider [phone] Encounter Details Date Type Department Care Team (Late st Contact Info) Description 05/28/2022 Lab Requisition [facility] Pathology & Laboratory Medicine - [facility] [address] [place] [address] Outr Resulting Lab, Provider Social History Tobacco [...] Appointment [facility] Endoscopy [address] [place], [place] [address] Angélica Hernandez MD [address] [phone] 05/19/2024 13:30 EST Appointment [facility] Endoscopy [address] [place] [address] Angélica Hrenandez MD [address] [phone] 05/28/2024 14:[address] [facility] [address] [place], [place] [phone] 05/28/2024 14:30 EDT Office Visit [facility] [address] [place], [place] [phone] Kaiser Miller MD 111 [facility] 2 [place] [address] documented as of this encounter [...] 58.9 55.8 - 66.1 % 05/30/2022 13:26 EDT [facility] Albumin g/dL 4.4 3.6 - 5.2 g/dL 05/30/2022 13:26 EDT [facility] Alpha-1 % 4.9 2.9 - 4.9 % 05/30/2022 13:26 [facility] Alpha-1 g/dL 0.40 0.15 - 0.40 g/dL 05/30/2022 13:26 [facility] Alpha-2 % 11.2 7.1 - 11.8 % 05/30/2022 13:26 [facility] Alpha-2 g/dL 0.80 0.50 - 1.00 g/dL 05/30/2022 13:26 [facility] Beta % 10.6 8.4 - 13.1 % 05/30/2022 13:26 [facility] Beta g/dL 0.80 0.60 - 1.20 g/dL 05/30/2022 13:26 [facility] Gamma % 14.4 11.1 - 18.8 % 05/30/2022 13:26 [facility] Gamma g/dL 1.10 0.60 - 1.60 g/dL 05/30/2022 13:26 [facility] SPEP Comment No apparent monoclonal protein seen on serum electrophoresis 05/30/2022 13:26 [facility] Comment:See scanned/suppleme ntary report. Total Protein 7.5 6.3 - 8.2 g/dL 05/30/2022 13:26 [facility] Blood VENOUS BLOOD / Unknown 05/28/2022 11:20 EDT 05/29/2022 16:42 EDT us Provider Outr Resulting Lab CHEMISTRY & BLOOD GA S ORDERABLES Final Result [facility] [address] [place] [address] * PROTEIN, TOTAL (05/28/2022 11:20 EDT) Blood VENOUS BLOOD / Unknown 05/28/2022 11:20 EDT 05/29/2022 16:42 EDT us Provider Outr Resulting Lab CHEMISTRY & BLOOD GA S ORDERABLES Final Result [facility] [address] [place] [address] documented in this encounter Visit Diagnoses Not on filedocumented in this encounter Care Teams Junior Engineer Relationship Specialty Start Date End Date Elizabeth Dsouza MD [address] [place] [phone] PCP - General 02/13/12 documented as of this encounter
--- OUTSIDE RECORDS SUMMARY | 2024-03-05 17:42 | XMS_ITS | Encounter Summary ---
Author Organization [facility] Address [address] [place] [address] Care Team Providers Care Shellfish Sorter Name Role Phone Elizabeth Dsouza MD Primary Care Provider [phone] Reason for Visit * (Routine/Next Available) - Order Cancelled Specialty Diagnoses / Procedures Referred By Loli rose Referred To Contact Procedures CT OUTSIDE IMAGES CHEST Imaging, External Referral ID Status Reason Start Date Expiration Date V isits Requested Visits Authorized [id number] Order Cancelled 05/28/2022 1 1 Encounter Details Date Type Department Care Team (Latest Contact Info) Description 05/23/2022 - 05/23/2022 23:59 EST Hospital Encounter [facility] [place] Discharge Disposition: Home or [...] Contact Info) Description 04/06/2024 9:30 EST Appointment [facility] Endoscopy [address] [place] [address] Angélica Hernandez MD [address] [place] [phone] 05/19/2024 13:30 EST Appointment [facility] Endoscopy [address] [place] [address] Angélica Hernandez MD [address] [phone] 05/28/2024 14:15 EDT Nurse Only [facility] [address] [place], [place] [phone] 05/28/2024 14:30 EDT Office Visit [facility] [address] [place], [place] [phone] Kaiser Miller MD 111 [facility] 2 [place] [address] documented as of this encounter Visit Diagnoses Not on filedocumented in this encounter Care Teams Shellfish Sorter Relationship Specialty Start Date End Date Elizabeth Dsouza MD [address] [place] [address] PCP - General 02/13/12 documented as of this encounter
--- OUTSIDE RECORDS SUMMARY | 2024-03-05 17:42 | XMS_ITS | Encounter Summary ---
Author Organization [facility] Address [address] [place] [address] Care Team Providers Care Assistant Softball Coach Name Role Phone Elizabeth Dsouza MD Primary Care Provider [phone] Encounter Details Date Type Department Care Team (Late st Contact Info) Description 04/30/2022 Lab Requisition [facility] Pathology & Laboratory Medicine - [facility] [address] [place], [place] [address] Elizabeth Dsouza MD [address] [place] [phone] Encounter for general adult medical examination [...] EST Appointment [facility] Endoscopy [address] [place] [address] Angélica Hernandez MD [address] [phone] 05/19/2024 13:30 EST Appointment [facility] Endoscopy [address] [place], [place] [address] Angélica Hernandez MD [address] [phone] 05/28/2024 14:15 EDT Nurse Only [facility] [address] [place], [place] [address] 05/28/2024 14:30 EDT Office Visit [facility] [address] [place] [address] Kaiser Miller MD 111 [facility] 2 [place] [address] documented as of this encounter [...] 16, PCR Negative Negative 05/30/2022 14:14 EDT [facility] HPV18/45 RNA (HPV18/45) Negative Negative 05/30/2022 14:14 EDT [facility] Papanicolaou smear specimen (specimen) CERVIX UTERI STRUCTURE / Unknown 04/26/2022 8:45 EST 05/13/2022 10:22 EST Elizabeth Dsouza MD MICROBIOLOGY - GENERAL ORDERAB LES Final Result Performing Organization Address [facility] Co de Phone Number [facility] [address] [place] [address] * (ABNORMAL) HUMAN PAPILLOMAVIRUS (HPV) DETECTION-HIGH RISK TYPES (04/26/2022 8:45 EST) Pathologist [facility] HPV other High Risk types, PCR Positive( A) Negative 05/13/2022 15:41 EST [facility] Comment:E6 OR E7 mRNA from o ne or more types of HPV types 16,18,31,33,35,39,45,51,52,56,58,59,66, and 68 is detected by pretzel twister mediated amplification. High and intermediate risk HPV types are associated with most squamous intraepithelial lesions and cervical cancers. Papanicolaou smear specimen (specimen) CERVIX UTERI STRUCTURE / Unknown 04/26/2022 8:45 EST 05/13/2022 10:22 EST Elizabeth Dsouza MD MICROBIOLOGY - GENERAL ORDERAB LES Final Result Performing Organization Address [facility] Co de Phone Number [facility] [address] [place] [address] * PAP TEST (04/26/2022 8:45 EST) Pathologist [facility] Amendment Comment This report is amended to include High Risk HPV testing results. 05/30/2022 14:14 [facility] Specimens A. Cervix and/or Endocervix , ThinPrep Imaging System with Manual Evaluation 05/30/2022 14:14 [facility] Specimen Adequacy Satisfactory for Evaluation - transformation zone component present 05/30/2022 14:14 [facility] General Categorization Epithelial Cell Abnormality 05/30/2022 14:14 [facility] Descriptive Diagnosis Squamous Cell Abnormality - Atypical squamous cells, undetermined significance (ASC-US). 05/30/2022 14:14 [facility] Educational Comments [facility] recommends following the ASCCP's management guidelines which may be found at www.asccp.org 05/30/2022 14:14 [facility] Attestation By the signature below, the attending physician certifies that they have personally conducted a gross and/or microscopic examination of the described specimens and rendered or confirmed the above diagnosis. 05/30/2022 14:14 [facility] Amendment electronically signed by Heidi Hugo CT(ASCP) on 05/30/2022 at 1414 at 0808 Clinical History See below 05/31/19 14:14 [facility] HPV The result for the Human Papillomavirus (HPV) Detection-High Risk Types is Positive . E6 OR E7 mRNA from one or more types of HPV types 16,18,31,33,35,39 ,45,51,52,56,58,5 9,66, and 68 is detected by pretzel twister mediated amplification. High and intermediate risk HPV types are associated with most squamous intraepithelial lesions and cervical cancers. Testing was performed on specimen [id number] and was resulted on 05/13/2022 1541 EST by ÁLVARO, LAB INSTRUMENT RESULTS IN 05/30/2022 14:14 [facility] Genotyping 16 & 18/45 The results for the HPV Genotypes 16 and 18/45 are Negative for the HPV16 RNA and Negative for the HPV18/45 RNA (HPV18/45). Testing was performed on specimen [id number] and was resulted on 05/30/2022 1410 EDT by TREY KELLER 05/30/2022 14:14 [facility] Performing Lab [facility] 05/30/2022 14:14 [facility] Scanned Images 05/30/2022 14:14 EDT [facility] Papanicolaou smear specimen (specimen) CERVIX UTERI STRUCTURE / Unknown 04/26/2022 8:45 EST 04/30/2022 10:04 EST us Elizabeth Dsouza MD PATHOLOGY ORDERABLES Edited Re sult - Final [facility] [address] [place] [address] documented in this encounter Visit Diagnoses Diagnosis Encounter for general adult medical examination without abnormal findings Unspecified general medical examination Encounter for screening for malignant neoplasm of cervix Screening for malignant neoplasm of the cervix documented in this encounter Care Teams Assistant Softball Coach Relationship Specialty Start Date End Date Elizabeth Dsouza MD [address] [place] [address] PCP - General 02/13/12 documented as of this encounter
--- OUTSIDE RECORDS SUMMARY | 2024-03-05 17:42 | XMS_ITS | Encounter Summary ---
Author Organization [facility] Address [address] [place] [address] Care Team Providers Care Bell Tier Name Role Phone Elizabeth Dsouza MD Primary Care Provider [phone] Reason for Referral * Consult (Routine/Next Available) - New Request Specialty Diagnoses / Procedures Referred By Loli rose Referred To Contact Hematology and Oncology Diagnoses Lung mass Elizabeth Asencio NP Phone: tel: fax: Referral ID Status Reason Start Date Expiration Date Visits Requested Visits Authorized [id number] New Request Specialty Services Required 07/18/2022 1 [...] [facility] H[facility] Oncology - [facility] [address] [place], [place] [address] Doroteo Ibrahim, RN Lung mass (Primary Dx) [...] Description 04/06/2024 9:30 EST Appointment [facility] Endoscopy [address] [place] [address] Angélica Hernandez MD [address] [phone] 05/19/2024 13:30 EST Appointment [facility] Endoscopy [address] [place], [place] [address] Angélica Hernandez MD [address] [phone] 05/28/2024 14:[address] [facility] [address] [phone] 05/28/2024 14:30 EDT Office Visit [facility] Cancer Treatment [address] [phone] Kaiser Miller MD 111 [facility] 2 [place] [address] Scheduled Referrals Name Type Priority Associated Diagnoses Orde r Schedule AMB CONSULT/FOLLOW UP TUMOR BOARD Outpatient Referral Routine Lung mass Ordered: 07/18/2022 documented as of this encounter Visit Diagnoses Diagnosis Lung mass- Primary Swelling, mass, or lump in chest documented in this encounter Care Teams Bell Tier Relationship Specialty Start Date End Date Elizabeth Dsouza MD [address] [place] [phone] PCP - General 02/13/12 documented as of this encounter
--- OUTSIDE RECORDS SUMMARY | 2024-03-05 17:42 | XMS_ITS | Encounter Summary ---
Author Organization [facility] Address [address] [place] [address] Care Team Providers Care Development Officer Name Role Phone Elizabeth Dsouza MD Primary Care Provider [phone] Reason for Visit * Reason Comments Peripheral Neuropathy Encounter Details Date Type Department Care Team (Latest Contact Info) Description 01/17/2021 9:00 EDT Procedure visit [facility] [address] [place] [address] Dwight Samano MD 130 [facility] [address] [place] [address] Other polyneuropathy (Primary Dx) Social [...] of this encounter Ordered Prescriptions Prescription Sig Dispense Quantity Refills Last Filled Start Date End Date DULoxetine (CYMBALTA) 30 mg delayed release capsule Take 1 tab once daily for a week, then increase to 2 tabs once daily afterwards. 60 Each 2 01/17/2021 3 documented in this encounter Progress Notes * Dwight Samano MD - 01/17/2021 0900 EDT [facility] Clinical Neurophysiology Nerve Conduction and Electromyography Report PATIENT NAME: Melodie Hodge PATIENT : 1955 PCP: Elizabeth Dsouza DATE OF SERVICE: 01/17/2021 History: Melodie Hodge is a 65 y.o. female with PVD who presents to [facility] on referral by Dr Haddad of [facility] for evaluation of possible peripheral neuropathy. [...] Contact Info) Description 04/06/2024 9:30 EST Appointment [facility] Endoscopy [address] [place] [address] Angélica Hernandez MD [address] [place] [phone] 05/19/2024 13:30 EST Appointment [facility] Endoscopy [address] [place] [address] Angélica Hernandez MD [address] [place] [phone] 05/28/2024 14:15 EDT Nurse Only [facility] Cancer Treatment [address] [phone] 05/28/2024 14:30 EDT Office Visit [facility] Cancer Treatment [address] [phone] Kaiser Miller MD 111 [facility] 2 [place] [address] documented as of this encounter [...] * VITAMIN B1, THIAMINE (01/17/2021 10:21 EDT) [facility] VITAMIN B1 (THIAMINE) - [facility] 112 70 - 180 nmol/L 01/25/2021 9:52 EST [facility] Comment: ADDITIONAL INFORMATION This test was developed and its performance characteristics determined by [facility] in a manner consistent with CLIA requirements. This test has not been cleared or approved by the U.S. Food and Drug Administration. Test Performed by: [facility] - [place] [address] [place] [address] Career And Transition Teacher: Fabio Martin M.D. Ph.D.; CLIA# [id number] 01/17/2021 10:2 1 EDT 01/17/2021 10:21 EDT Narrative [facility] - 01/25/2021 9:52 EST Does PT Have a Latex Allergy? UNKNOWN ORDERED TESTS: [place] ID: PLP, PER ROBERTH GREEN TOP TUBE PROTECT FROM LIGHT SEND ALEK TO LAB. NO VITS ??FOR 24 HRS AND FASTING 12-14HR us Dwight Samano MD CHEMISTRY & BLOOD GAS ORD ERABLES Final Result [facility] [address] [place] [address] * SPEP, INCLUDES QUANTITATION OF MONOCLONAL SPIKE (01/17/2021 10:21 EDT) [facility] Alpha-1 % 4.6 2.9 - 4.9 % 01/25/2021 9:52 [facility] Alpha-2 % 11.6 7.1 - 11.8 % 01/25/2021 9:52 [facility] Albumin % 61.2 55.8 - 66.1 % 01/25/2021 9:52 [facility] Beta % 9.8 8.4 - 13.1 % 01/25/2021 9:52 [facility] COMMENTS - [facility] SEE BELOW () 9:52 [facility] Comment: RESULT: No apparent monoclonal protein seen on serum electrophoresis See scanned/supplementary report. Test performed or referred by The [address] [address] Gamma % 12.8 11.1 - 18.8 % 01/25/2021 9:52 [facility] Protein, 24H Urine 7.5 6.3 - 8.2 g/dL 01/25/2021 9:52 [facility] 01/17/2021 10:2 1 EDT 01/17/2021 10:21 EDT Elder [facility] - 01/25/2021 9:52 EST Does PT Have a Latex Allergy? UNKNOWN ORDERED TESTS: [place] ID: PLP, PER [place] GRE[place] TOP TUBE PROTECT FROM LIGHT SEND ALEK TO LAB. NO VITS ??FOR 24 HRS AND FASTING 12-14HR us Dwight Samano MD CHEMISTRY & BLOOD GAS ORD ERABLES Final Result [facility] [address] [place] [id number] * VITAMIN B12 (01/17/2021 10:21 EDT) VITAMIN B12 - [facility] 615 239 - 931 pg/mL 01/17/2021 11:58 EDT [facility] Comment: The results of this assay can be falsely elevated due to the consumption of Biotin. 01/17/2021 10:2 1 EDT 01/17/2021 10:21 EDT Narrative [facility] - 01/17/2021 11:58 EDT Does PT Have a Latex Allergy? UNKNOWN us Dwight Samano MD CHEMISTRY & BLOOD GAS ORD ERABLES Final Result Performing Organization Address [facility] Co de Phone Number [facility] [address] [place] [address] * (ABNORMAL) MISCELLANEOUS TEST, [place] (01/17/2021 10:15 EDT) [facility] MISCELLANEOUS TEST - [facility] SEE BELOW(A) () 01/22/2021 15:46 EST [facility] Comment: Test ? Result ??Flag ??Unit ?? RefValue Pyridoxal 5-Phosphate (PLP) ?4 ?L ?mcg/L ??5-50 ??, P ADDITIONAL INFORMATION This test was developed and its performance characteristics determined by [facility] in a manner consistent with CLIA requirements. This test has not been cleared or approved by the U.S. Food and Drug Administration. Test Performed by: [facility] - [address] [address] Career And Transition Teacher: Fabio Martin M.D. Ph.D.; CLIA# [id number] 01/17/2021 10:1 5 EDT 01/17/2021 10:47 EDT us Dwight Samano MD CHEMISTRY & BLOOD GAS ORD ERABLES Final Result Performing Organization Address [facility]/ZIP Co de Phone Number [facility] [address] [place] [address] documented in this encounter Visit Diagnoses Diagnosis Other polyneuropathy- Primary documented in this encounter Care Teams Development Officer Relationship Specialty Start Date End Date Elizabeth Dsouza MD [address] [place] [phone] PCP - General 02/13/12 documented as of this encounter
--- OUTSIDE RECORDS SUMMARY | 2024-03-05 17:42 | XMS_ITS | Encounter Summary ---
Author Organization [facility] Address [address] [place] [address] Care Team Providers Care Airport Ramp Agent Name Role Phone Elizabeth Dsouza MD Primary Care Provider [phone] Reason for Referral * Radiology Services (Routine/Next Available) - Authorization Not Required Specialty Diagnoses / Procedures Referred By Loli rose Referred To Contact Diagnoses Abnormal x-ray of lung Procedures IR BIOPSY Elizabeth Dsouza MD [address] [place] [address] Phone: tel: fax: [facility] Referral ID Status Reason Start Date Expiration Date Visits Requested Visits Authorized [id number] Authorization Not Required 05/28/2022 1 1 Reason for Visit * Radiology Services (Routine/Next Available) - Authorization Not Required Specialty Diagnoses / Procedures Referred By Loli rose Referred To Contact Diagnoses Abnormal x-ray of lung Procedures IR BIOPSY Elizabeth Dsouza MD [address] [place] [address] Phone: tel: fax: [facility] Referral ID Status Reason Start Date Expiration Date Visits Requested Visits Authorized [id number] Authorization Not Required 05/28/2022 1 1 Encounter Details Date Type Department Care Team (Late st Contact Info) Description 06/25/2022 6:34 EDT - 06/25/2022 11:24 EDT Hospital Encounter [facility] Interventional Radiology - [address] [address] Rigo Jasmine PA-C [address] [place] [phone] Sohail Magana MD [address] [place] [phone] Abnormal x-ray of lung; Lung nodule [...] Boyd, ABEL documented as of this encounter Discharge Instructions [...] PLEASE CALL THE INTERVENTIONAL RADIOLOGY CLINIC AT [phone], OPTION 2 TO REACH THE NURSE TRIAGE [...] in this encounter Progress Notes * Marina Osorio RN - 06/25/2022 0700 EDT Melodie Hodge arrived to the Cardiovascular Unit via ambulation Patient alert and oriented x3. Transfers to stretcher independently Patient greeted and identified per [facility] center policy. Allergies and procedure verified & patient oriented to Unit. Reviewed all pre-procedure instructions with Melodie Hodge. All questions answered & patient verbalizes willingness and understandi ng of pre-procedure education. Patient stretcher in low position with side rails up & call bellwithin patient reach. 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 * Melodie Garcia RN - [...] out occurred and procedure started. (TK/ SARAH /RW / ) Puncture site RUL Time of Puncture 0855 Cytology arrived to procedure room at 0905. At 0937 Time the Procedure ended. CT guided lung biopsy Puncture site RUL See provider note for procedure outcome. All specimens collected sent with Cytology. Pt tolerated well with Versed 1.5 mg IV and Fentanyl 100 mcg IV over 54 minutes. Report called to Gayle MEMBRENO RN at 0944 time Pt transferred to CVU in stable condition. At d/c from room patient is on right side. On 2 L oxygen. In no distress. * Mikki Nguyen, ABEL - 06/25/2022 0700 EDT Melodie Hodge arrived to CVU #2 at 0950 via stretcher s/p lung biopsy. Alert and oriented x3. VSS on 3L NC. 1130 CXR completed per orders. Report given to LYNNETTE RN documented in this encounter H&P Notes * [...] Anemia ??? COPD (chronic obstructive pulmonary disease) (HCC-CMS) ??? Diverticulitis large intestine ??? GERD (gastroesophageal [...] Sedation?: Yes Rigo Jasmine PA-C 06/25/2022 7:45 Cosigned by Sohail Magana MD at 06/25/2022 12:03 EDT documented in this encounter Procedure Notes * Sohail Magana MD - 06/25/2022 0700 EDT IR Procedure Note Procedure: CT guided RUL lung biopsy Date Performed: 06/25/2022 Radiologist/Flooring Grader(s): [place] Sedation/Anesthesia: Moderate Time Out: A time-out [...] Info) Description 04/06/2024 9:30 EST Appointment [facility] [address] [place] [address] Angélica Hernandez MD [address] [place] [phone] 05/19/2024 13:30 EST Appointment [facility] [address] [place] [address] Angélica Hernandez MD [address] [phone] 05/28/2024 14:15 EDT Nurse Only [facility] [place] [address] [place], [place] [phone] 05/28/2024 14:30 EDT Office Visit [facility] Cancer Treatment [address] [address] Kaiser Miller MD 111 [facility], [facility], Level [address] [place] [phone] documented as of this encounter Procedures Procedure Name Priority Date/Time Associated Diagnosis Comments XR CHEST 1 VIEW Routine 06/25/2022 11:35 EDT IR BIOPSY Routine 06/25/2022 9:49 EDT Abnormal x-ray of lung NON CASKET TRIMMER/FNA CYTOLOGY Routine 06/25/2022 9:14 EDT Abnormal x-ray [...] of the right costophrenic angle from the [id number]. The cardiomediastinal silhouette appears normal aside from [...] exclusionof the right costophrenic angle from the [id number]. The cardiomediastinal silhouette appears normal aside from aorticcalcification. Visualized bones and superficial soft tissues are grossly unremarkable. IMPRESSION No evidence of pneumothorax status post right lung biopsy. us Sohail Magana MD [facility] Final Result * IR BIOPSY (06/25/2022 9:49 EDT) Anatomical [...] biopsy showed local pulmonary hemorrhage without hemoptysis. Sparta were removed, hemostasis obtained, and a sterile [...] lobe nodule. Multiple aspirates were then obtained [id number], 15 cm long Chiba needles and given to the cytopathologist forevaluation. Thereafter, multiple 20-gauge core biopsies were performedthru the lesion at the request of the onsite cytopathologist. A repeatscan obtained immediately after the biopsy showed local pulmonary hemorrhage without hemoptysis. Sparta were removed, hemostasisobtained, and a sterile dressing was placed. The patient tolerated the procedure well. The patient was then placed in the right lateral decubitus position andtransferred to postprocedure recovery for monitoring. IMPRESSION Successful CT-guided aspiration and core biopsy of a 1.2 cm nodule withinthe right upper lobe. us Elizabeth Dsouza MD [facility] IR ORDERABLES Final Result * SURGICAL PATHOLOGY (06/25/2022 9:14 EDT) Note to Patient The following pathology results have been interpreted by your pathologist and may be available to you before your health provider has had the opportunity to review them. Please allow time for your provider to receive these results and explore management options, if applicable. 2022 14:54 [facility] Final Diagnosis A. 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 2022 14:54 [facility] Diagnosis Comment Please see and correlate with the finding(s) of the concurrent cytology specimen ([id number]). 2022 14:54 [facility] Attestation There was significant resident/fellow involvement in the diagnostic evaluation of this case. By the signature below, the attending physician certifies that they have personally conducted a gross and/or microscopic examination of the described specimens and rendered or confirmed the above diagnosis. 2022 14:54 [facility] at 1454 Clinical History Smoker with right lung 1 cm nodule; evaluate for malignancy; clinical diagnosis code: R91.8 2022 14:54 [facility] Gross Description A. Received in formalin labelled with proper patient identification (initials B, C) and not otherwise specified are multiple irregular and cylindrical brown tissue fragments ranging from less than 0.1 cm in greatest dimension to 0.4 by less than 0.1 cm. Entirely submitted in A1-A2. CHENG MCCLAIN(ASCP) 06/25/2022 12:12 2022 14:54 EDT [facility] Resident/Bashir w: Sigrid Astorga DO 2022 14:54 EDT [facility] Performing Lab [facility] 2022 14:54 EDT [facility] Scanned Images 2022 14:54 EDT [facility] Tissue ENTIRE RIGHT LUNG / Unknown Collection, Other / Unknown 06/25/2022 9:14 EDT 06/25/2022 10:36 EDT us Rigo Jasmine PA-C PATHOLOGY ORDERABLES Teresa lucia Result [facility] [address] [place] [address] * NON CASKET TRIMMER/FNA CYTOLOGY (06/25/2022 9:14 EDT) Note to Patient The following pathology results have been interpreted by your pathologist and may be available to you before your health provider has had the opportunity to review them. Please allow time for your provider to receive these results and explore management options, if applicable. 07/02/2022 10:58 EDT [facility] Final Diagnosis A. LUNG, RIGHT, 1 CM NODULE, CT-GUIDED FINE NEEDLE ASPIRATION: - Suspicious for squamous cell carcinoma. See comment. 07/02/2022 10:58 EDT [facility] Diagnosis Comment The specimen is [...] dysplastic squamous epithelium. Concurrent surgical pathology biopsy ([id number]) was reviewed and deeper levels examined. The core biopsy shows dysplastic squamous epithelium similar to that present on the cytology specimen. The core also shows atypical pneumocytes which are not present on the cytology specimen. Basket Machine Operator slides of this case were reviewed by Dr. Karan Nj. 07/02/2022 10:58 [facility] Attestation By the signature below, the attending physician certifies that they have personally conducted a gross and/or microscopic examination of the described specimens and rendered or confirmed the above diagnosis. 07/02/2022 10:58 [facility] at 1058 Rapid Diagnosis [...] Dr.S Lizama; 06/25/2022; 9:20 AM 07/02/2022 10:58 [facility] Clinical History 66 yo female smoker with right lung 1 cm nodule. evaluate for malignancy 07/02/2022 10:58 [facility] Gross Description A. 17 fixed prepared slides, 3 air dried prepared slides, and 1 tube of RPMI for cell block processing were receive 07/02/2022 10:58 [facility] Performing Lab [facility] 07/02/2022 10:58 [facility] Scanned Images 07/02/2022 10:58 [facility] Fine Needle Aspirate ENTIRE RIGHT LUNG / Unknown 06/25/2022 9:14 EDT 06/25/2022 9:52 EDT us Rigo Jasmine PA-C PATHOLOGY ORDERABLES Teresa l Result [facility] [address] [place] [address] * PLATELET COUNT (06/25/2022 7:31 EDT) PLT 179 141 - 377 K/cmm 06/25/2022 8:10 [facility] Blood VENOUS BLOOD / Unknown Venipuncture / Unknown 06/25/2022 7:31 EDT 06/25/2022 7:34 EDT Glynn Vann PA-C HEMATOLOGY & PF4 ORDERABL ES Final Result Performing Organization Address [facility] Co de Phone Number [facility] [address] [place] [address] * PROTIME (06/25/2022 7:31 EDT) I.N.R. 1.1 0.9 - 1.1 Ratio 06/25/2022 7:51 EDT [facility] Pro Time 12.7 9.7 - 12.8 secs 06/25/2022 7:51 EDT [facility] Blood VENOUS BLOOD / Unknown Venipuncture / Unknown 06/25/2022 7:31 EDT 06/25/2022 7:34 EDT Narrative [facility] - 06/25/2022 7:51 EDT Moderate Intensity Coumadin INR = 2.0-3.0 Adjustments in anticoagulant therapy dose should be based on the INR and NOT on the Protime. Glynn Vann PA-C HEMATOLOGY & PF4 ORDERABL ES Final Result Performing Organization Address [facility] Co de Phone Number [facility] [address] [place] [address] documented in this encounter Visit Diagnoses Diagnosis [...] 06/25/2022 documented in this encounter Care Teams Airport Ramp Agent Relationship Specialty Start Date End Date Elizabeth Dsouza MD [address] [facility] [place] [phone] PCP - General 02/13/12 documented as of this encounter
--- OUTSIDE RECORDS SUMMARY | 2024-03-05 17:42 | XMS_ITS | Encounter Summary ---
Author Organization [facility] Address [address] [place] [address] Care Team Providers Care Tomb Maker Helper Name Role Phone Elizabeth Dsouaz MD Primary Care Provider [phone] Encounter Details Date Type Department Care Team (Late st Contact Info) Description 01/03/2022 Prep for Procedure [facility] [address] [place] [address] Jame Mijares MD [address] [place] [address] [address] [place] [address] Social History Tobacco Use Types [...] Contact Info) Description 04/06/2024 9:30 EST Appointment [facility] [address] [place] [address] Angélica Hernandez MD [address] [place] [phone] 05/19/2024 13:30 EST Appointment [facility] [address] [place], [place] [address] Angélica Hernandez MD [address] [place] [phone] 05/28/2024 14:15 EDT Nurse Only [facility] [address] [phone] 05/28/2024 14:30 EDT Office Visit [facility] [address] [address] Kaiser Miller MD 111 [facility], [facility] [address] [place] [phone] documented as of this encounter Visit Diagnoses Not on filedocumented in this encounter Care Teams Tomb Maker Helper Relationship Specialty Start Date End Date Elizabeth Dsouza MD [address] [place] [address] PCP - General 02/13/12 documented as of this encounter
--- OUTSIDE RECORDS SUMMARY | 2024-03-05 17:42 | XMS_ITS | Encounter Summary ---
Author Organization [facility] Address [address] [place] [address] Care Team Providers Care Training Program Developer Name Role Phone Elizabeth Dsouza MD Primary Care Provider [phone] Reason for Visit * Reason Onset Date Comments Follow-up 07/23/2022 Encounter Details Date Type Department Care Team (Late st Contact Info) Description 07/23/2022 Telephone [facility] Pulmonology & Critical Care - [facility] [address] [place] [address] Audrey Mix RN Follow-up Social History Tobacco [...] Encounter - Audrey Mix RN - 07/23/[address] Dsouza's office returned call and [...] EST Appointment [facility] [address] [place] [address] Angélica Hernandez MD [address] [place] [phone] 05/19/2024 13:30 EST Appointment [facility] [address] [place] [address] Angélica Hernandez MD [address] [place] [phone] 05/28/2024 14:15 EDT Nurse Only [facility] [address] [phone] 05/28/2024 14:30 EDT Office Visit [facility] Treatment [address] [address] Kaiser Miller MD [address] [place] [address] [address] [place] [phone] documented as of this encounter Visit Diagnoses Not on filedocumented in this encounter Care Teams Training Program Developer Relationship Specialty Start Date End Date Elizabeth Dsouza MD [address] [place] [phone] PCP - General 02/13/12 documented as of this encounter
--- OUTSIDE RECORDS SUMMARY | 2024-03-05 17:42 | XMS_ITS | Encounter Summary ---
Author Organization [facility] Address [address] [place] [address] Care Team Providers Care Ash Conveyor Operator Name Role Phone Elizabeth Dsouza MD Primary Care Provider [phone] Reason for Visit * Reason Comments Abnormal Lab Patient presents [facility] for abnormal labs. Patietn states they're iron levels are low. C/o fatigue and shortness of breathe x 2 weeks. Shortness of Breath Encounter Details Date Type Department Care Team (Late st Contact Info) Description 12/28/2021 16:56 EDT - 12/28/2021 23:00 EDT Emergency [facility] Emergency Department [address] [place] [address] Jeancarlos Conklin MD [address] [place] [address] Iron deficiency anemia, unspecified iron [...] be sent through Care Everywhere. * Hypokalemia (Mosotho) * Anemia: Iron Deficiency (Mosotho) documented in this encounter Medications at Time [...] mg by mouth. Bedtime empty stomache 3 potassium chloride SA (K-DUR) 20 mEq tablet Take 1 Tablet by mouth daily for 3 days. 3 Tablet 12/28/2021 2 pyridoxine, vitamin B6, (VITAMIN B6) 50 mg tablet Take 1 Tablet by mouth daily. Please call the neurology office for further instructions. 90 Tablet 1 01/23/2021 3 documented as of this encounter Ordered Prescriptions Prescription Sig Dispense Quantity Refills Last Filled Start Date End Date potassium chloride SA (K-DUR) 20 mEq tablet Take 1 Tablet by mouth daily for 3 days. 3 Tablet 12/28/2021 12/31/2021 potassium chloride SA (K-DUR) 20 mEq tablet Take 1 Tablet by mouth daily for 3 days. 3 Tablet 12/28/2021 12/28/2021 documented in this encounter Discharge Disposition Disposition Code Departure Means Destination Home or Self [facility] documented in this encounter ED Notes * Jeancarlos Conklin MD - 12/28/2021 2183 EDT Emergency Department Visit Assessment and ED [...] Contact Info) Description 04/06/2024 9:30 EST Appointment [facility] Endoscopy [address] [place] [phone] Angélica Hernandez MD [address] [phone] 05/19/2024 13:30 EST Appointment [facility] Endoscopy [address] [place] [address] Angélica Hernandez MD [address] [phone] 05/28/2024 14:15 EDT Nurse Only [facility] [address] [phone] 05/28/2024 14:30 EDT Office Visit [facility] Cancer Treatment [address] [address] Kaiser Miller MD 111 [facility] 2 [place] [address] documented as of this encounter Procedures Procedure [...] SCANNED (12/31/2021 6:52 EDT) 12/31/2021 6:52 EDT us Scan 2 General Contractor PROCEDURE/MINOR SURGICAL OR DERABLES Final Result * TRANSFUSE RED BLOOD CELLS (12/28/2021 22:50 EDT) Blood us Jeancarlos Conklin MD NURSING TREATMENT - BLOOD A DMINISTRATION Final Result * (ABNORMAL) BASIC METABOLIC PANEL (BMP) (12/28/2021 22:26 EDT) Sodium 142 136 - 145 mmol/L 12/28/2021 23:[address] [facility] Potassium 4.1 3.5 - 5.0 mmol/L 12/28/2021 23:19 [facility] Chloride 115(H) 96 - 110 mmol/L 12/28/2021 23:19 [facility] CO2 Total 23 22 - 32 mmol/L 12/28/2021 23:19 [facility] Anion Gap 4(L) 5 - 14 12/28/2021 23:19 [facility] Glucose 99 70 - 100 mg/dL 12/28/2021 23:19 [facility] Calcium 9.1 8.5 - 10.5 mg/dL 12/28/2021 23:19 [facility] BUN 10 10 - 26 mg/dL 12/28/2021 23:19 [facility] Creatinine 1.47(H) 0.52 - 1.04 mg/dL 12/28/2021 23:19 [facility] eGFR 39(L) >60 mL/min/1.73 m2 12/28/2021 23:19 [facility] Blood VENOUS BLOOD / Unknown Venipuncture / Unknown 12/28/2021 22:26 EDT 12/28/2021 22:28 EDT Jeancarlos Conklin MD CHEMISTRY & BLOOD GAS ORDER BHARAT Final Result [facility] [address] [place] [address] * PREPARE RED BLOOD CELLS (12/28/2021 18:39 EDT) Product Code [id number] [facility] Donor Number [id number] C [facility] [place] [facility] Unit ABO A [facility] Unit Rh NEG [facility] Unit Status PT^Presumed Transfuse [facility] Product Expiration Date [facility] Unit Blood Type Code 0600 [facility] Volume 285 [facility] Coding System [id number] [facility] B[facility]OD [facility] Blood 12/28/2021 18:3 9 EDT us Jeancarlos Conklin MD BLOOD BANK ORDERABLES Final Result [facility] [address] [place] [address] * EKG 12-LEAD (12/28/2021 18:18 EDT) 12/28/2021 18:1 8 EDT Narrative [facility] - 12/28/2021 20:18 EDT ? [facility] ? Test Date: ?2021-12-28 Pat Name: ? MELODIECAIN CLIFFORD ? Department: ? Room: ? A03 Gender: ? Female ? Polish Maker: ?? DT : ?1955 ? Requested By: ABDIRIZAK MARIANO Order Number: [id number] ? Ivonne JOHNSON: ?? REGINO FLYNN MD ? Measurements Intervals ?[place] ? Rate: ? 77 ? P: ?77 AL: ? 130 ?QRS: ?52 QRSD: ? 82 [...] Procedure Note Regino Flynn MD - 12/28/2021 [facility] Test Date: 2021-12-28 Pat Name: MELODIE CLIFFORD Department: Room: A03 Gender: Female Polish Maker: DT : 1955 Requested By: ABDIRIZAK MARIANO Order Number: [id number] Ivonne MD: REGINO FLYNN MD Measurements Intervals [place] Rate: 77 P: 77 AL: 130 QRS: 52 QRSD: 82 T: 78 [...] LORA JOHNSON. Jeancarlos Conklin MD CARDIAC ECG ORDERABLES Teresa l Result Performing Organization Address City/[facility]/ZIP Co de Phone Number [facility] * ANTIBODY SCREEN (12/28/2021 17:20 EDT) [facility] Antibody Screen Negative 12/28/2021 19:07 EDT [facility] Specimen Expires: 12/31/2021 @ 23:59 12/28/2021 19:07 EDT [facility] Blood VENOUS BLOOD / Unknown Venipuncture / Unknown 12/28/2021 17:20 EDT 12/28/2021 17:48 EDT Jeancarlos Conklin MD BLOOD BANK TESTS Final Resu lt Performing Organization Address [facility]/ZIP Co de Phone Number [facility] [address] [place] [address] * MAGNESIUM (12/28/2021 17:20 EDT) [facility] Magnesium 1.8 1.7 - 2.8 mg/dL 12/28/2021 17:[address] [facility] Blood VENOUS BLOOD / Unknown Venipuncture / Unknown 12/28/2021 17:20 EDT 12/28/2021 17:21 EDT Jeancarlos Conklin MD CHEMISTRY & BLOOD GAS ORDER BHARAT Final Result Performing Organization Address City/[facility]/ZIP Co de Phone Number [facility] [address] [place] [address] * TYPE AND SCREEN (12/28/2021 17:20 EDT) [facility] ABO A 12/28/2021 19:03 EDT [facility] Rh Factor Negative 12/28/2021 19:03 EDT [facility] BLOOD [facility] Antibody Screen Positive 12/28/2021 19:03 [facility] Specimen Expires: 12/31/2021 @ 23:59 12/28/2021 19:03 [facility] Blood VENOUS BLOOD / Unknown Venipuncture / Unknown 12/28/2021 17:20 EDT 12/28/2021 17:48 EDT us Jeancarlos Conklin MD BLOOD BANK TESTS Edited Res ult - Final [facility] [address] [place] [address] * (ABNORMAL) COMPREHENSIVE METABOLIC PANEL (CMP) (12/28/2021 17:20 EDT) Sodium 144 136 - 145 mmol/L 12/28/2021 18:01 [facility] Potassium 2.5(LL) 3.5 - 5.0 mmol/L 12/28/2021 18:01 [facility] Chloride 121(H) 96 - 110 mmol/L 12/28/2021 18:01 [facility] CO2 Total 19(L) 22 - 32 mmol/L 12/28/2021 18:01 [facility] Glucose 75 70 - 100 mg/dL 12/28/2021 18:01 [facility] BUN 8(L) 10 - 26 mg/dL 12/28/2021 18:01 [facility] Creatinine 1.04 0.52 - 1.04 mg/dL 12/28/2021 18:01 [facility] eGFR 60(L) >60 mL/min/1.7 3m2 12/28/2021 18:01 [facility] Total Protein 5.3(L) 6.3 - 8.2 g/dL 12/28/2021 18:01 [facility] Albumin 2.9(L) 3.4 - 4.9 g/dL 12/28/2021 18:01 [facility] Alkaline Phosphatase 44 38 - 126 U/L 12/28/2021 18:01 [facility] AST 16 15 - 46 U/L 12/28/2021 18:01 [facility] ALT 14 <35 U/L 12/28/2021 18:01 [facility] Bilirubin, Total 0.6 <1.4 mg/dL 12/29/19 18:01 [facility] Calcium 6.7(L) 8.5 - 10.5 mg/dL 12/28/2021 18:01 [facility] Albumin/Globulin Ratio 1.2 1.0 - 2.5 12/28/2021 18:01 [facility] Anion Gap 4(L) 5 - 14 12/28/2021 18:01 [facility] Blood VENOUS BLOOD / Unknown Venipuncture / Unknown 12/28/2021 17:20 EDT 12/28/2021 17:21 EDT us Jeancarlos Conklin MD CHEMISTRY & BLOOD GAS ORDER BHARAT Final Result [facility] [address] [place] [address] * (ABNORMAL) COMPLETE BLOOD COUNT AND DIFFERENTIAL (12/28/2021 17:20 EDT) WBC 5.11 4.00 - 12.40 K/cmm 12/28/2021 17:40 [facility] RBC 3.02(L) 3.86 - 5.04 M/cmm 12/28/2021 17:40 [facility] Hemoglobin 6.7(LL) 11.6 - 15.2 gm/dL 12/28/2021 17:40 [facility] HCT 24.2(L) 34.9 - 44.4 % 12/28/2021 17:40 [facility] MCV 80(L) 81 - 98 fl 12/28/2021 17:40 [facility] MCH 22.2(L) 26.7 - 33.3 pg 12/28/2021 17:40 [facility] Hypochromia 2+ 12/28/2021 17:40 [facility] MCHC 27.7(L) 32.1 - 35.9 gm/dL 12/28/2021 17:40 [facility] RDW-CV 17.5(H) <14.7 % 12/28/2021 17:40 [facility] RDW-SD 51.3(H) <50.4 fl 12/28/2021 17:40 [facility] Anisocytosis 1+ 12/28/2021 17:40 [facility] PLT 173 141 - 377 K/cmm 12/28/2021 17:40 [facility] MPV 10.8 9.5 - 12.7 fl 12/28/2021 17:40 [facility] % Neutrophils 71.0 % 12/28/2021 17:40 [facility] % Lymphocytes 19.0 % 12/28/2021 17:40 [facility] % Monocytes 5.5 % 12/28/2021 17:40 [facility] % Eosinophils 3.5 % 12/28/2021 17:40 [facility] % Basophils 0.6 % 12/28/2021 17:40 [facility] % Immature Grans 0.4 % 12/29/19 17:40 [facility] Absolute Neutrophils 3.63 2.20 - 8.85 K/cmm 12/28/2021 17:40 [facility] Absolute Lymphocytes 0.97(L) 1.09 - 3.30 K/cmm 12/28/2021 17:40 [facility] Absolute Monocytes 0.28 0.10 - 0.80 K/cmm 12/28/2021 17:40 [facility] Absolute Eosinophils 0.18 0.03 - 0.61 K/cmm 12/28/2021 17:40 [facility] ABS Basophils 0.03 0.01 - 0.11 K/cmm 12/28/2021 17:40 [facility] Absolute Immature Grans 0.02 0.00 - 0.06 K/cmm 12/28/2021 17:[address] [facility] Type of Differential: Auto 12/28/2021 17:[address] [facility] Blood VENOUS BLOOD / Unknown Venipuncture / Unknown 12/28/2021 17:20 EDT 12/28/2021 17:21 EDT us Jeancarlos Conklin MD PACKAGES & DNA PROBE ORDERA BLES Final Result [facility] [address] [place] [address] documented in this encounter Visit Diagnoses Diagnosis [...] may reflect changes made after this encounter. nitroglycerin (NITROSTAT) 0.[address] [...] First Orde red Date CALL BLOOD BANK ([facility]281) TIER 1 ORDERS ARE PLACED 1 12/28/2021 documented in this encounter Care Teams Ash Conveyor Operator Relationship Specialty Start Date End Date Elizabeth Dsouza MD [address] [place] [phone] PCP - General 02/13/12 documented as of this encounter
--- OUTSIDE RECORDS SUMMARY | 2024-03-05 17:42 | XMS_ITS | Encounter Summary ---
Author Organization [facility] Address [address] [place] [address] Care Team Providers Care Electrophysiology Scientist Name Role Phone Elizabeth Dsouza MD Primary Care Provider [phone] Encounter Details Date Type Department Care Team (Latest Contact Info) Description 07/23/2022 12:09 EDT - 07/23/2022 23:59 EDT Hospital Encounter [facility] Pre-Surgical Testing [address] [place], [place] [phone] Discharge Disposition: Home or Self Care Social [...] [place], RN documented as of this encounter Medications [...] OR Notes * Preprocedure Instructions - Marissa Ortiz, ABEL - 07/23/2022 1240 EDT Melodie Hodge has [...] pick you up to assist with medication continuous pickling line pickler from pharmacy, review of discharge instructions and surgical consult. We ask that your ride stay within 15 minutes of the hospital for continuous pickling line pickler. - CPAP/BiPAP Bring your CPAP or BiPAP machine in with you on the day of your surgery. - Nail mozambican and Jewelry Remove all finger nail mozambican and makeup before surgery Remove all jewelry [...] Crutches if needed. - Use the Volumetric Field Representative given to you by your surgeon or [...] campus of surgery. For Day of Surgery: [facility] [place]: [phone]; [facility] [place]; [phone]. Prior to Day of Surgery call: [phone]. Pre-op toll Free Number . - More information can also be found on our website: [email or web address] documented in this encounter Miscellaneous Notes [...] obtain a plan. Dorothy Herron APRN, MSN @[phone] documented in this encounter Plan of Treatment Upcoming Encounters Date Type Department Care Team (Late st Contact Info) Description 04/06/2024 9:30 EST Appointment [facility] Endoscopy [address] [place] [address] Angélica Hernandez MD [address] [phone] 05/19/2024 13:30 EST Appointment [facility] Endoscopy [address] [place] [address] Angélica Hernandez MD [address] [place] [phone] 05/28/2024 14:15 EDT Nurse Only [facility] Cancer [address] [phone] 05/28/2024 14:30 EDT Office Visit [facility] Cancer [address] [address] Kaiser Miller MD 111 [facility], [facility] 2 [place] [address] documented as of this encounter [...] may reflect changes made after this encounter. oxyCODONE-acetami nophen (PERCOCET) 5-325 mg per tablet Take 1 Tablet by mouth as needed for Pain. 07/30/2022 added in this encounter Care Teams Electrophysiology Scientist Relationship Specialty Start Date End Date Elizabeth Dsouza MD [address] [place] [phone] PCP - General 02/13/12 documented as of this encounter
--- OUTSIDE RECORDS SUMMARY | 2024-03-05 17:42 | XMS_ITS | Encounter Summary ---
Author Organization [facility] Address [address] [place] [address] Care Team Providers Care Gravity Meter Operator Name Role Phone Elizabeth Dsouza MD Primary Care Provider [phone] Reason for Visit * Reason Onset Date Comments Results 01/23/2021 Encounter Details Date Type Department Care Team (Late st Contact Info) Description 01/23/2021 Telephone [facility] Neurology Clinic [address] [place], [place] [phone] Dwight Samano MD 130 [facility] [address] [place] [address] Results Social History Tobacco Use [...] Refills Last Filled Start Date End Date pyridoxine, vitamin B6, (VITAMIN B6) 50 mg tablet Take 1 Tablet by mouth daily. Please call the neurology office for further instructions. 90 Tablet 1 01/23/2021 3 documented in this encounter Miscellaneous Notes * [...] Encounter - Dwight Samano MD - 01/23/2021 0813 EST Please let her know her B6 is a little low. Would be helpful to take a supplement for 6 months or so, and recheck about a week after stopping it then. Send prescription for 50mg daily for 6 months. documented in this encounter Plan of Treatment Upcoming Encounters Date Type Department Care Team (Late st Contact Info) Description 04/06/2024 9:30 EST Appointment [facility] Endoscopy [address] [place] [address] Angélica Hernandez MD [address] [place] [phone] 05/19/2024 13:30 EST Appointment [facility] Endoscopy [address] [place], [place] [address] Angélica Hernandez MD [address] [place] [phone] 05/28/2024 14:15 EDT Nurse Only [facility] Cancer Treatment [place] [address] [place] [address] 05/28/2024 14:30 EDT Office Visit [facility] [address] [place] [address] Kaiser Miller MD 111 [facility] Level 2 [place] [address] documented as of this encounter Visit Diagnoses Not on filedocumented in this encounter Care Teams Gravity Meter Operator Relationship Specialty Start Date End Date Elizabeth Dsouza MD 4 [facility] [place] [place] [phone] PCP - General 02/13/12 documented as of this encounter
--- OUTSIDE RECORDS SUMMARY | 2024-03-05 17:42 | XMS_ITS | Encounter Summary ---
Author Organization [facility] Address [address] [place] [address] Care Team Providers Care Life Skills Worker Name Role Phone Elizabeth Dsouza MD Primary Care Provider [phone] Reason for Visit * Reason Onset Date Comments Patient Education 06/18/2022 Encounter Details Date Type Department Care Team (Late st Contact Info) Description 06/18/2022 Telephone [facility] - Main [address] [phone] Iadnia Higgins RN Patient Education Social History Tobacco Use Types [...] Info) Description 04/06/2024 9:[address] [facility] Endoscopy [address] [place] [address] Angélica Hernandez MD [address] [phone] 05/19/2024 13:[address] [facility] Endoscopy [address] [place] [address] Angélica Hernandez MD [address] [place] [phone] 05/28/2024 14:15 EDT Nurse Only [facility] Life Cancer Treatment [address] [address] 05/28/2024 14:30 EDT Office Visit [facility] Cancer Treatment [address] [address] Kaiser Miller MD 111 [facility] 2 [place] [address] documented as of this encounter Visit Diagnoses Not on filedocumented in this encounter Care Teams Life Skills Worker Relationship Specialty Start Date End Date Elizabeth Dsouza MD [address] [place] [address] PCP - General 02/13/12 documented as of this encounter
--- OUTSIDE RECORDS SUMMARY | 2024-03-05 17:42 | XMS_ITS | Encounter Summary ---
Author Organization [facility] Address [address] [place] [address] Care Team Providers Care Senior Consumer Insights Consultant Name Role Phone Elizabeth Dsouza MD Primary Care Provider Reason for Visit * (Routine/Next Available) - Receiving Office to Obtain Authorization Specialty Diagnoses / Procedures Referred By Loli rose Referred To Contact Procedures XR OUTSIDE IMAGES DEXA Imaging, External Referral ID Status Reason Start Date Expiration Date Visits Requested Visits Authorized [id number] Receiving Office to Obtain Authorization 2022 1 1 Encounter Details Date Type Department Care Team (Latest Contact Info) Description 05/22/2022 - 05/22/2022 23:59 EST Hospital Encounter [facility] Radiology - Main [place] [address] [place] [address] Discharge Disposition: Home or Self Care Social [...] [place], ABEL documented as of this encounter Medications at [...] EST Appointment [facility] Endoscopy [address] [place], [place] [address] Angélica Hernandez MD [address] [place] [phone] 05/19/2024 13:30 EST Appointment [facility] Endoscopy [address] [place], [place] [phone] Angélica Hernandez MD [address] [phone] 05/28/2024 14:15 EDT Nurse Only [facility] Cancer [facility] [address] [place], [place] [address] 05/28/2024 14:30 EDT Office Visit [facility] [address] [place], [place] [address] Kaiser Miller MD 111 [facility] 2 [place] [address] documented as of this encounter Procedures Procedure Name Priority Date/Time Associated Diagnosis Comments XR OUTSIDE IMAGES DEXA Routine 05/22/2022 16:10 EST documented in this encounter Results * XR OUTSIDE IMAGES DEXA (05/22/2022 16:10 EST) Narrative PEREZ - 2022 16:10 EDT This is a non-reportable exam. us External Imaging IMG OTHER IMAGING ORDERABLES Fi nal Result LIV documented in this encounter Visit Diagnoses Not on filedocumented in this encounter Care Teams Senior Consumer Insights Consultant Relationship Specialty Start Date End Date Elizabeth Dsouza MD [address] [place] [phone] PCP - General 02/13/12 documented as of this encounter
--- OUTSIDE RECORDS SUMMARY | 2024-03-05 17:42 | XMS_ITS | Encounter Summary ---
Author Organization [facility] Address [address] [place] [address] Care Team Providers Care Wind Turbine Erector Name Role Phone Elizabeth Dsouza MD Primary Care Provider Reason for Visit * Reason Onset Date Comments Appointment Related 06/03/2022 Encounter Details Date Type Department Care Team (Late st Contact Info) Description 06/03/2022 Telephone [facility] - [address] [phone] Rigo Jasmine PA-C [address] [place] [address] [address] [place] [address] Appointment Related Social History Tobacco [...] Telephone Encounter - Yudy Mukherjee - 06/03/2022 4157 EDT Spoke with Melodie in regards to scheduling their outpatient CT guided right lung biopsy with interventional radiology at [facility]. Patient will be coming in on Sunday 06/25 @ 700am, checking in at 645am at registration. The following details were reviewed with patient to ensure procedure completed on scheduled date: -Patient understands that they will need a racing car driver for this procedure. -Patient understands that [...] can be addressed to Interventional Radiology Department [phone] Ext. 1 Patient verbalized understanding and agrees with Plan of Care. No cognitive barriers were identified during this conversation & they have our contact number to call with questions. Yudy Mukherjee documented in this encounter Plan of Treatment Upcoming Encounters Date Type Department Care Team (Late st Contact Info) Description 04/06/2024 9:30 EST Appointment [facility] Endoscopy [address] [place] [address] Angélica Hernandez MD [address] [place] [phone] 05/19/2024 13:30 EST Appointment [facility] Endoscopy [address] [place] [address] Angélica Hernandez MD [address] [place] [phone] 05/28/2024 14:15 EDT Nurse Only [facility] Treatment [address] [address] 05/28/2024 14:30 EDT Office Visit [facility] Cancer Treatment [address] [address] Kaiser Miller MD 111 [facility], [facility] 2 [place] [address] documented as of this encounter Visit Diagnoses Not on filedocumented in this encounter Care Teams Wind Turbine Erector Relationship Specialty Start Date End Date Elizabeth Dsouza MD [address] [place] [address] PCP - General 02/13/12 documented as of this encounter
--- OUTSIDE RECORDS SUMMARY | 2024-03-05 17:42 | XMS_ITS | Encounter Summary ---
Author Organization [facility] Address [address] [place] [address] Care Team Providers Care Oxygen System Tester Name Role Phone Elizabeth Dsouza MD Primary Care Provider [phone] Reason for Visit * Reason Onset Date Comments Patient Education 06/18/2022 Encounter Details Date Type Department Care Team (Late st Contact Info) Description 06/18/2022 Telephone [facility] Interventional Rad Clinic - Main [address] [address] Idania Higgins RN Patient Education Social History Tobacco [...] Encounter - Idania Higgins RN - 06/18/2022 1035 EDT Interventional Radiology Appt: RUL lung biopsy [...] utilize some form of sedation. Having a refrigerated national truck driver to take you home is required. A bus or taxi is not allowed. It is preferable to have your refrigerated national truck driver accompany you to the appointment. If [...] appt. pt verbalized understanding, all questions answered. IRC RN phone number provided, should they have any further questions prior to this appointment. documented in this encounter Plan of Treatment Upcoming Encounters Date Type Department Care Team (Late st Contact Info) Description 04/06/2024 9:30 EST Appointment [facility] Endoscopy [address] [place] [address] Angélica Hernandez MD [address] [place] [phone] 05/19/2024 13:30 EST Appointment [facility] Endoscopy [address] [place] [address] Angélica Hernandez MD [address] [place] [phone] 05/28/2024 14:15 EDT Nurse Only [facility] Life Cancer Treatment [address] [address] 05/28/2024 14:30 EDT Office Visit [facility] Cancer Treatment [address] [address] Kaiser Miller MD 111 [facility] 2 [place] [address] documented as of this encounter Visit Diagnoses Not on filedocumented in this encounter Care Teams Oxygen System Tester Relationship Specialty Start Date End Date Elizbaeth Dsouza MD [address] [place] [phone] PCP - General 02/13/12 documented as of this encounter
--- OUTSIDE RECORDS SUMMARY | 2024-03-05 17:42 | XMS_ITS | Encounter Summary ---
Author Organization [facility] Address [address] [place] [address] Care Team Providers Care Surveillance Systems Engineer Name Role Phone Elizabeth Dsouza MD Primary Care Provider [phone] Encounter Details Date Type Department Care Team (Late st Contact Info) Description 03/01/2022 Lab Requisition [facility] Pathology & Laboratory Medicine - [facility] [address] [place] [address] Raissa Rader MD [address] [place] [phone] Encounter for other general examination Social [...] Appointment [facility] Endoscopy [address] [place] [address] Angélica Hernandez MD [address] [phone] 05/19/2024 13:30 EST Appointment [facility] Endoscopy [address] [place] [address] Angélica Hernandez MD [address] [phone] 05/28/2024 14:[address] [facility] Cancer [address] [address] 05/28/2024 14:[address] [facility] Cancer [address] [address] Kaiser Miller MD 111 [facility], [facility] 2 [place] [address] documented as of this encounter [...] explore management options, if applicable. 03/05/2022 13:21 EST [facility] Final Diagnosis A. SKIN AND CONJUNCTIVA OF EYELID, LEFT LOWER, EXCISION: - Follicular cyst, infundibular type, with evidence of rupture. 03/05/2022 13:21 [facility] Attestation By the signature below, the attending physician certifies that they have 1) personally conducted a gross and/or microscopic examination of the described specimen(s), and/or personally interpreted the results of laboratory testing of the described specimen(s), and 2) personally rendered or confirmed the above diagnosis. 03/05/2022 13:21 [facility] at 1321 Clinical History ? purfed cyst; clinically was very firm but filled with pus 03/05/2022 13:21 [facility] Gross Description A. [...] cm. The margins are inked blue. A technical sales representative section is submitted as A1. BROOKE ARAGON 03/04/2022 6:20 03/05/2022 13:21 [facility] Performing Lab [facility] 03/05/2022 13:21 [facility] Scanned Images 03/05/2022 13:21 [facility] Tissue TISSUE SPECIMEN FROM SKIN / Unknown 03/01/2022 9:38 EST 03/01/2022 19:17 EST us Raissa Rader MD PATHOLOGY ORDERABLES Final Result [facility] [address] [place] [address] documented in this encounter Visit Diagnoses Diagnosis Encounter for other general examination documented in this encounter Care Teams Surveillance Systems Engineer Relationship Specialty Start Date End Date Elizabeth Dsouza MD [address] [place] [phone] PCP - General 02/13/12 documented as of this encounter
--- OUTSIDE RECORDS SUMMARY | 2024-03-05 17:42 | XMS_ITS | Encounter Summary ---
Author Organization [facility] Address [address] [place] [address] Care Team Providers Care Disability Attorney Name Role Phone Elizabeth Dsouza MD Primary Care Provider [phone] Reason for Visit * Reason Onset Date Comments Appointment Related 07/12/2022 Encounter Details Date Type Department Care Team (Late st Contact Info) Description 07/12/2022 Telephone [facility] Pulmonology & Critical Care - [address] [phone] Amilcar Damian MD MPH [address] [place] [address], [address] [place] [address] Appointment Related Social History Tobacco [...] encounter Miscellaneous Notes * Telephone Encounter - Paayl Gallagher - 07/12/2022 1012 EDT M with appointment date and time for patient. Requested patient call back to confirm appointment for 07/15/22. documented in this encounter Plan of Treatment Upcoming Encounters Date Type Department Care Team (Late st Contact Info) Description 04/06/2024 9:30 EST Appointment [facility] Endoscopy [address] [place] [address] Angélica Hernandez MD [address] [place] [phone] 05/19/2024 13:30 EST Appointment [facility] Endoscopy [address] [place] [address] Angélica Hernandez MD [address] [place] [phone] 05/28/2024 14:15 EDT Nurse Only [facility] Cancer Treatment [address] [address] 05/28/2024 14:30 EDT Office Visit [facility] [address] [address] Kaiser Miller MD 111 [facility] 2 [place] [address] documented as of this encounter Visit Diagnoses Not on filedocumented in this encounter Care Teams Disability Attorney Relationship Specialty Start Date End Date Elizabeth Dsouza MD [address] [place] [phone] PCP - General 02/13/12 documented as of this encounter
--- OUTSIDE RECORDS SUMMARY | 2024-03-05 17:42 | XMS_ITS | Encounter Summary ---
Author Organization [facility] Address [address] [place] [address] Care Team Providers Care Button Maker And Installer Name Role Phone Elizabeth Dsouza MD Primary Care Provider [phone] Reason for Referral * Test (Routine/Next Available) - Authorization Not Required Specialty Diagnoses / Procedures [facility] Referred To Contact Diagnoses Lung nodule Procedures PULMONARY FUNCTION TESTING Juliocesar Limon MD Referral ID Status Reason Start Date Expiration Date Visits Requested Visits Authorized [id number] Authorization Not Required 07/15/2022 1 1 Reason for Visit * Reason Comments New Patient Visit DC Encounter Details Date Type Department Care Team (Late st Contact Info) Description 07/15/2022 16:00 EDT Office Visit [facility] Pulmonology & Critical Care - [facility] [address] [place] [address] Amilcar Damian MD MPH 111 [facility], Level [address] [place] [address] Lung nodule (Primary Dx) Social [...] 155 EDT Body Mass Index 32.55 07/15/2022 1552 EDT documented in this encounter Functional Status * Are you deaf or do you have serious difficulty hearing? Answer Date of Assessment Author No 12/28/2021 16:46 EDT Héctor Boyd RN documented as of this encounter Patient Instructions [...] go over this. Call Audrey with questions [phone] documented in this encounter Progress Notes * Audrey Mix RN - 07/15/2022 1600 EDT Interventional Pulmonary Pre-Op Nursing Note Procedure Date: TBD Provider: Dr. Damian Time of procedure finalized on: 4 days prior to procedure. There is a chance this could change and in that case patient will be notified ALEK Bronchoscopy procedure day was discussed with Melodie Hodge - A road oiling truck driver is required (this does not include [...] finalize. These results will show up on [facility] at the time they are released to [...] Limon M.D. Department of Pulmonary/Critical Care Medicine Quality Control Head, F-2 Attestation statement: Supervising Physician Amilcar Damian [...] with Chantix. Using e-cigarettes. Lives alone in [place], [place]. Maintains home. Denies functional limitations; although notes exertion is limited by right-sided sciatic pain. Denies chest pain or pressure. No palpitations. No exertional dyspnea, although minimal ambulation attributed to lower extremity discomfort. Not regularly followed by cardiology; underwent PCI in 1995 for NSTEMI. No further cardiac events. 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 No occupational exposures to chemicals or fumes. Social History: Lives alone in [place], [place]. Multiple pets within the home; including cats, dogs, and parakeets. Denies issues with mold or mildew. Family History: No family history of lung cancer. 4 adult children are healthy. PMHx: HTN HLD CAD s/p PCI [1995] at [facility] Lower extremity pain PSHx: has a [...] discussed with Dr. Damian. Juliocesar Limon MD [facility] Fellow Attestation statement: I performed or [...] Contact Info) Description 04/06/2024 9:30 EST Appointment [facility] Endoscopy [address] [place] [address] Angélica Hernandez MD [address] [phone] 05/19/2024 13:30 EST Appointment [facility] Endoscopy [address] [place] [address] Angélica Hernandez MD [address] [phone] 05/28/2024 14:15 EDT Nurse Only [facility] Cancer [facility] [address] [place], [place] [address] 05/28/2024 14:30 EDT Office Visit [facility] Cancer [address] [address] Kaiser Miller MD 111 [facility] 2 [place] [address] documented as of this encounter Results * PULMONARY FUNCTION TESTING (07/26/2022 14:15 EDT) 07/26/2022 14:1 5 EDT us Juliocesar Limon MD PFT ORDERABLES Final Result Performing Organization Address City/State/[facility] Co de Phone Number [facility] PFT documented in this encounter Visit Diagnoses Diagnosis Lung nodule- Primary Solitary pulmonary nodule documented in this encounter Orders Case Request Count Last Ordered Date First Orde red Date CASE REQUEST OPERATING ROOM 1 07/15/2022 documented in this encounter Care Teams Button Maker And Installer Relationship Specialty Start Date End Date Elizabeth Dsouza MD [address] [place] [address] PCP - General 02/13/12 documented as of this encounter
--- OUTSIDE RECORDS SUMMARY | 2024-03-05 17:42 | XMS_ITS | Encounter Summary ---
Author Organization [facility] Address [address] [place] [address] Care Team Providers Care Rehab Services Aide Name Role Phone Elizabeth Dsouza MD Primary Care Provider Encounter Details Date Type Department Care Team (Latest Contact Info) Description 06/25/2022 11:25 EDT - 06/25/2022 23:59 EDT Hospital Encounter [facility] Radiology [address] [address] Discharge Disposition: Home or Self Care Social [...] Appointment [facility] Endoscopy [address] [place], [place] [phone] Angélica Hernandez MD [address] [phone] 05/19/2024 13:30 EST Appointment [facility] Endoscopy [address] [place], [place] [phone] Angélica Hernandez MD 111 [facility] [address] [place] [phone] 05/28/2024 14:[address] [facility] Cancer [facility] 130 [place] [address] 05/28/2024 14:[address] [facility] Cancer [facility] [address] [place] [address] Kaiser Miller MD 111 [facility] 2 [place] [address] documented as of this encounter [...] of the right costophrenic angle from the [id number]-[id number]. The cardiomediastinal silhouette appears normal aside from [...] exclusionof the right costophrenic angle from the csuyd-ye-gdxu. The cardiomediastinal silhouette appears normal aside from aorticcalcification. Visualized bones and superficial soft tissues are grossly unremarkable. IMPRESSION No evidence of pneumothorax status post right lung biopsy. Sohail Magana MD IMG DIAGNOSTIC IMAGING ORDHubert HANSEN Final Result documented in this encounter Visit Diagnoses Not on filedocumented in this encounter Care Teams Rehab Services Aide Relationship Specialty Start Date End Date Elizabeth Dsouza MD [address] [place] [phone] PCP - General 02/13/12 documented as of this encounter
--- OUTSIDE RECORDS SUMMARY | 2024-03-05 17:42 | XMS_ITS | Encounter Summary ---
Author Organization [facility] Address [address] [place] [address] Care Team Providers Care Wood Finisher Apprentice Name Role Phone Elizabeth Dsouza MD Primary Care Provider [phone] Reason for Referral * Referral (Routine/Next Available) - Receiving Office to Obtain Authorization Specialty Diagnoses / Procedures Referred By Loli rose Referred To Contact Diagnoses Gastrointestinal hemorrhage, unspecified gastrointestinal hemorrhage type Procedures UPPER ENDOSCOPY (EGD) Elizabeth Dsouza MD [address] [place] [address] Phone: tel: fax: Referral ID Status Reason Start Date Expiration Date Visits Requested Visits Authorized [id number] Receiving Office to Obtain Authorization 2 1 1 Reason for Visit * Auth/Cert Specialty Diagnoses / Procedures Referred By Loli rose Referred To Contact Referral ID Status Reason Start Date Expiration Date Visits Re quested Visits Authorized [id number] 1 1 Encounter Details Date Type Department Care Team (Latest Contact Info) Description 01/03/2022 10:50 EDT - 01/03/2022 23:59 EDT Hospital Encounter [facility] [address] [place], [place] [address] Jame Mijares MD [address] [place] [address] [address] [place] [address] Gastrointestinal hemorrhage, unspecified gastrointestinal hemorrhage [...] Code Departure Means Destination Home or Self Penitentiary documented in this encounter H&P Notes * Jame Mijares MD - 01/03/2022 1145 EDT Endoscopy Sedation for Procedure History & Physical Date: 01/03/2022 Time: 13:05 Location: [facility] Endoscopy Planned Procedure: Upper Endoscopy Chief [...] Contact Info) Description 04/06/2024 9:30 EST Appointment [facility] Endoscopy [address] [place] [address] Angélica Hernandez MD [address] [place] [phone] 05/19/2024 13:30 EST Appointment [facility] Endoscopy [address] [place], [place] [address] Angélica Hernandez MD [address] [place] [phone] 05/28/2024 14:15 EDT Nurse Only [facility] [place] 130 [place], [place] [address] 05/28/2024 14:30 EDT Office Visit [facility] [place] [address] [place], [place] [phone] Kaiser Miller MD 111 [facility] 2 [place] [address] documented as of this encounter Procedures Procedure Name Priority Date/Time Associated Diagnosis Comments ECG REPORT - SCANNED 01/08/2022 8:02 EDT UPPER ENDOSCOPY (EGD) Routine 01/03/2022 11:45 EDT Gastrointestinal hemorrhage, unspecified gastrointestinal hemorrhage type documented in this encounter Results * ECG REPORT - SCANNED (01/08/2022 8:02 EDT) 01/08/2022 8:02 EDT us Scan 2 Industrial Fabric Cutter PROCEDURE/MINOR SURGICAL OR DERABLES Final Result * UPPER ENDOSCOPY (EGD) (01/03/2022 11:45 EDT) Anatomical Region Laterality Modality Endoscopy Narrative 01/03/2022 11:45 EDT [facility] ?? [address] [facility], [place], [place] [address] ?? Patient Name ? VIKRAM Date of ? 1955 Record Number ? [id number] Date/Time of Procedure ?01/03/2022, 11:45:00 AM Endoscopist ?Jame Mijares ?? Ase Master Mechanic ? Referring Physician(s) ?? Elizabeth Dsouza M.D. Anesthesiologist ? PROCEDURE PERFORMED: Upper Endoscopy (EGD) INDICATIONS FOR EXAMINATION: melena Instruments: ? GIF-HQ190 ([id number]) Medications: ?Fentanyl 75 mcg, Versed 3 mg [...] Mijares M.D. Elizabeth Dsouza MD GI PROCEDURE ORDERABLES [...] may reflect changes made after this encounter. omeprazole (PRILOSEC) 20 mg capsule Take 1 [...] 01/03 documented in this encounter Care Teams Wood Finisher Apprentice Relationship Specialty Start Date End Date Elizabeth Dsouza MD [address] [place] [address] PCP - General 02/13/12 documented as of this encounter
--- OUTSIDE RECORDS SUMMARY | 2024-03-05 17:42 | XMS_ITS | Encounter Summary ---
Author Organization [facility] Address [address] [place] [address] Care Team Providers Care Anger Control Counselor Name Role Phone Elizabeth Dsouza MD Primary Care Provider [phone] Encounter Details Date Type Department Care Team [...] Info) Description 04/06/2024 9:30 EST Appointment [facility] Endoscopy [address] [place] [address] Angélica Hernandez MD [address] [phone] 05/19/2024 13:30 EST Appointment [facility] Endoscopy [address] [place], [place] [address] Angélica Hernandez MD [address] [phone] 05/28/2024 14:15 EDT Nurse Only [facility] Cancer [address] [phone] 05/28/2024 14:30 EDT Office Visit [address] [address] Kaiser Miller MD 111 [facility] 2 [place] [address] documented as of this encounter Visit Diagnoses Not on filedocumented in this encounter Care Teams Anger Control Counselor Relationship Specialty Start Date End Date Elizabeth Dsouza MD 4 [place] [phone] PCP - General 02/13/12 documented as of this encounter
--- OUTSIDE RECORDS SUMMARY | 2024-03-05 17:42 | XMS_ITS | Encounter Summary ---
Author Organization [facility] Address [address] [place] [address] Care Team Providers Care Stockroom Worker Name Role Phone Elizabeth Dsouza MD Primary Care Provider [phone] Encounter Details Date Type Department Care Team (Late st Contact Info) Description 09/07/2020 Lab Requisition [facility] Pathology & Laboratory Medicine - [address] [address] Outr Resulting Lab, Provider Social History Tobacco [...] Contact Info) Description 04/06/2024 9:30 EST Appointment [facility] Endoscopy [address] [place], [place] [address] Angélica Hernandez MD [address] [phone] 05/19/2024 13:30 EST Appointment [facility] Endoscopy [address] [place] [address] Angélica Hernandez MD [address] [phone] 05/28/2024 14:15 EDT Nurse Only [facility] Cancer [facility] 130 [place] [address] 05/28/2024 14:30 EDT Office Visit [facility] Cancer [facility] [address] [place] [address] Kaiser Miller MD [address] [facility] 2 [place] [address] documented as of this encounter Procedures Procedure Name Priority Date/Time Associated Diagnosis Comments H. PYLORI ANTIGEN Routine 09/06/2020 8:45 EDT documented in this encounter Results * H. PYLORI ANTIGEN (09/06/2020 8:45 EDT) H. Pylori Negative Negative 09/12/2020 13:02 EDT [facility] Feces SPECIMEN FROM RECTUM / Unknown 09/06/2020 8:45 EDT 09/07/2020 16:04 EDT Narrative [facility] - 09/12/2020 13:02 EDT Results were obtained with the [employer]IXON. us Provider Outr Resulting Lab MICROBIOLOGY - GENER AL ORDERABLES Final Result [facility] [address] [place] [address] documented in this encounter Visit Diagnoses Not on filedocumented in this encounter Care Teams Stockroom Worker Relationship Specialty Start Date End Date Elizabeth Dsouza MD [address] [place] [address] PCP - General 02/13/12 documented as of this encounter
--- OUTSIDE RECORDS SUMMARY | 2024-03-05 17:43 | XMS_ITS | Encounter Summary ---
Author Organization [facility] Address [address] [place] [address] Care Team Providers Care Lead Software Tester Name Role Phone Elizabeth Dsouza MD Primary Care Provider [phone] Encounter Details Date Type Department Care Team (Latest Contact Info) Description 08/18/2017 11:06 EDT - 08/18/2017 23:59 EDT Hospital Encounter [facility] [place] [facility] [address] [place] [address] Unknown, Provider, Discharge Disposition: Home or Self Care Social History Tobacco Use Types Packs/Day Years Used Date Smoking Tobacco: Never Assessed Comments Unknown Sex and Gender Information Value [...] Contact Info) Description 04/06/2024 9:30 EST Appointment [facility] Endoscopy [address] [place] [address] Angélica Hernandez MD [address] [phone] 05/19/2024 13:30 EST Appointment [facility] Endoscopy [address] [place] [address] Angélica Hernandez MD [address] [phone] 05/28/2024 14:15 EDT Nurse Only [facility] Cancer [address] [phone] 05/28/2024 14:30 EDT Office Visit [facility] Cancer [address] [phone] Kaiser Miller MD 111 [facility] 2 [place] [address] documented as of this encounter Visit Diagnoses Not on filedocumented in this encounter Care Teams Lead Software Tester Relationship Specialty Start Date End Date Elizabeth Dsouza MD [address] [place] [phone] PCP - General 02/13/12 documented as of this encounter
--- OUTSIDE RECORDS SUMMARY | 2024-03-05 17:43 | XMS_ITS | Encounter Summary ---
Author Organization [facility] Address [address] [place] [address] Care Team Providers Care Fabricator Artificial Breast Name Role Phone Elizabeth Dsouza MD Primary Care Provider [phone] Encounter Details Date Type Department Care Team (Late st Contact Info) Description 08/23/2017 Historical Results Only [facility] - Main [place] [address] [place], [place] [phone] Ashu Arce MD [address] [place] [address] Social History Tobacco Use Types [...] Contact Info) Description 04/06/2024 9:30 EST Appointment [facility] Endoscopy [address] [place] [address] Angélica Hernandez MD [address] [address] 05/19/2024 13:30 EST Appointment [facility] Endoscopy [address] [place] [address] Angélica Hernandez MD [address] [address] 05/28/2024 14:15 EDT Nurse Only [facility] [address] [place], [place] [address] 05/28/2024 14:30 EDT Office Visit [facility] Cancer [facility] [address] [place], [place] [address] Kaiser Miller MD 111 [facility] 2 [place] [address] documented as of this encounter Procedures Procedure Name Priority Date/Time Associated Diagnosis Comments RBC MORPHOLOGY Routine 08/23/2017 6:15 EDT BASIC METABOLIC PANEL (BMP) Routine 08/23/2017 6:15 EDT documented in this encounter Results * (ABNORMAL) BASIC METABOLIC PANEL (BMP) (08/23/2017 6:15 EDT) [facility] - [facility] 17 10 - 26 mg/dL 08/23/2017 7:34 [facility] CALCIUM - [facility] 8.2(L) 8.5 - 10.5 mg/dL 08/23/2017 7:34 [facility] Chloride 109 96 - 110 mmol/L 08/23/2017 7:34 [facility] CO2 Total 23 22 - 32 mEq/L 08/23/2017 7:34 [facility] CREATININE 0.78 0.52 - 1.04 mg/dL 08/23/2017 7:34 [facility] eGFR >60 08/23/2017 7:34 [facility] Comment: Chronic renal impairment is defined as GFR <60 Multiply result by 1.210 for patients. eGFR calculated using the IDMS-traceable MDRD Study Equation. ??(effective 01/17/2014) Anion Gap 8 0 - 18 08/23/2017 7:[address] [facility] GLUCOSE - [facility] 112(H) 70 - 100 mg/dL 08/23/2017 7:[address] [facility] Potassium 3.5 3.5 - 5.0 mEq/L 08/23/2017 7:34 [facility] Sodium 140 136 - 145 mEq/L 08/23/2017 7:[address] [facility] 08/23/2017 6:15 EDT 08/23/2017 6:55 EDT us Ashu Arce MD CHEMISTRY & [facility]LOOD [facility] Final Result [facility] * RBC MORPHOLOGY (08/23/2017 6:15 EDT) HYPOCHROMASIA - [facility] 2+ 08/23/2017 7:[address] [facility] MICROCYTES - [facility] 2+ 018 7:[address] [facility] POLYCHROMASIA - [facility] RARE 08/23/2017 7:[address] [facility] SCHISTOCYTES - [facility] RARE 08/23/2017 7:[address] [facility] 08/23/2017 6:15 EDT 08/23/2017 6:55 EDT us Ashu Arce MD HEMATOLOGY & PF4 ORDERABLE S Final Result [facility] documented in this encounter Visit Diagnoses Not on filedocumented in this encounter Care Teams Fabricator Artificial Breast Relationship Specialty Start Date End Date Elizaebth Dsouza MD [address] [place] [address] PCP - General 02/13/12 documented as of this encounter
--- OUTSIDE RECORDS SUMMARY | 2024-03-05 17:43 | XMS_ITS ---
Author Organization Unknown Address [address] [place] [phone] Phone Care Team Providers Care Planing Machine Operator Name Role Phone APOORVA Blanton [...] em Smoking History Current every day smoker [id number] SNOMED CT Sex Female Vital Signs Vital Sign Value Unit [place] Value [place] Unit Date/Time Recent/Initial? Code Code System Body Mass Index 32.85 kg/m2 10/26/2020 08:41 Initial 30281 -5 LOINC Systolic Blood Pressure 157 mm[Hg] 11/01/2020 08:28 Initial 8480- 6 LOINC Diastolic Blood Pressure 74 mm[Hg] 11/01/2020 08:28 Initial 8462- 4 LOINC Body Surface Area 1.89 m2 10/26/2020 08:41 Initial 3140- 1 LOINC Height 157.480 0 cm 62.00 in 10/26/2020 08:41 Initial 8302- 2 LOINC O2 Saturation 96 % 2020 08:28 Initial 20756 -5 LOINC Pulse 77.0 /min 11/01/2020 08:28 Initial 8867- 4 LOINC Respiration 16 /min 11/02/19 08:28 Initial 9279- 1 LOINC Temperature 36.1 Maliha 97.0 F 08/18/20 21 08:28 Initial 8310- 5 LOINC Weight 81.47 kg 179.60 lbs 10/26/2020 08:41 Initial 24040 -7 [facility] Assessment You had the following problems:NIDDMCADMYOCARDIAL INFARCTGERDDEPRESSION [...] Vagina; w/Loop Electrode Biopsy(s), Cervix 11/01/2020 completed 75752 CPT Problems Problem Start Date Resolved Date Status Code Code System NIDDM active 40053899 SNOMED-CT CAD active 01215606 SNOMED-CT MYOCARDIAL INFARCT active 01327828 S NOMED-CT GERD active 696579424 SNOMED-CT DEPRESSION active 54624654 SNOMED-CT HIGH CHOLESTEROL 05/01/2023 resolved 06676379 SN OMED-CT STENTED ARTERY 05/01/2023 resolved 361763160 SNOM ED-CT COPD 05/01/2023 resolved 66063664 SNOMED-CT Allergies and Adverse Reactions Allergy Substance Reaction Severity Start Date Concern Status Code Code Batool jack MORPHINE Vomiting (SNOMED-CT: 394727249) Moderate Active 7052 RxNorm LATEX Active 2722129 RxNorm BAND-AID BRAND ADHESIVE BANDAGES BREAK OUT (SNOMED-CT: null) Moderate Active 0033182 RxNorm Plan of Treatment MRI L SPINE [...]
--- OUTSIDE RECORDS SUMMARY | 2024-03-05 17:43 | XMS_ITS ---
Author Organization Unknown Address [address] [place] [phone] Phone Care Team Providers Care Law Professor Name Role Phone APOORVA Blanton MD Attending [...] em Smoking History Current every day smoker [id number] SNOMED CT Sex Female Assessment You had [...] Date Status Code Code System NIDDM active 96910689 SNOMED-CT CAD active 92593016 SNOMED-CT MYOCARDIAL INFARCT active 93569680 S NOMED-CT GERD active 730057414 SNOMED-CT DEPRESSION active 47762323 SNOMED-CT HIGH CHOLESTEROL 05/01/2023 resolved 36823949 SN OMED-CT STENTED ARTERY 05/01/2023 resolved 790903574 SNOM ED-CT COPD 05/01/2023 resolved 96079561 SNOMED-CT Allergies and Adverse Reactions Allergy Substance Reaction Severity Start Date Concern Status Code Code Syste m MORPHINE Vomiting (SNOMED-CT: 871413622) Moderate Active 7052 RxNorm LATEX Active 5786248 RxNorm BAND-AID BRAND ADHESIVE BANDAGES BREAK OUT (SNOMED-CT: null) Moderate Active 0424908 RxNorm Plan of Treatment MRI L SPINE [...]
--- OUTSIDE RECORDS SUMMARY | 2024-03-05 17:43 | XMS_ITS ---
Author Organization Unknown Address [address] [place] [phone] Phone Care Team Providers Care Sorting Livestock Worker Name Role Phone APOORVA Blanton MD Attending [...] FLEX CULTURE - Collect Date/Time: 10/17/2020 12:31 [facility] ID: [id number] [address] [place] [address], [address] LOINC: 09127-4 Test Value Unit Reference Range Code Code System Flag COLLECTION MODE: CLEAN CATCH Color YELLOW yellow 5778-6 LOINC Appearance CLEAR clear 5767-9 LOINC Glucose urine NEGATIVE negative mg/dl 54697-7 LOINC Bilirubin NEGATIVE negative 5770-3 LOINC Ketones NEGATIVE negative mg/dl 2514-8 LOINC Spec gravity 1.025 1.003 - 1.030 5811-5 LOINC pH urine 6.0 5.0 - 7.0 2756-5 LOINC Protein 100 negative mg/dl 41886-5 LOINC A Urobilinogen 1.0 <or= 1 EU/dl 49493-8 LOINC A Nitrite. NEGATIVE negative 5802-4 LOINC Blood SMALL negative 5794-3 LOINC A Leukocytes. TRACE negative A WBCs. 0-5 0-5 / hpf 49002-7 LOINC RBCs none 0-5 / hpf Epith cells 0-5 0-5 / hpf 15137-2 LOINC Cell types squamous Crystals amorphous none Bacteria minimal none Mucus none none Casts 0-5 none /lpf 66087-6 LOINC Cast types fine gran Other CBC W/ DIFFERENTIAL - Collec t Date/Time: 10/17/2020 12:31 [facility] ID: [id number] [address] [place], [place], [address] LOINC: 21067-9 Test Value Unit Reference Range Code Code System Flag WBC 6.63 th/cmm L=5.00 H=10.00 6690-2 LOINC NEUT % 69.5 % L=40.0 H=80.0 LYMPH % 21.1 % L=10.0 H=50.0 MONO % 5.4 % L=2.0 H=12.0 71329-0 LOINC EOS % 3.0 % L=0.0 H=8.0 BASO % 0.8 % L=0.0 H=3.0 IG % 0.2 % L=0.0 H=1.1 2514-8 LOINC NRBC % 0.0 % L=0.0 H=0.0 90455-2 LOINC NEUT abs count 4.6 th/cmm L=1.6 H=8.4 751-8 LOINC LYMPH abs count 1.4 th/cmm L=1.5 H=4.0 731-0 LOINC L MONO abs count 0.4 th/cmm L=0.2 H=1.0 742-7 LOINC EOS abs count 0.2 th/cmm L=0.0 H=0.5 711-2 LOINC BASO abs count 0.1 th/cmm L=0.0 H=0.2 704-7 LOINC IG abs count 0.0 th/cmm L=0.0 H=0.1 97182-5 LOINC NRBC abs count 0.0 mil/cmm L=0.0 H=0.0 03059-1 LOINC RBC 4.18 mil/cmm L=3.90 H=5.40 789-8 [...] em Smoking History Current every day smoker 676535196 SNOMED CT Sex Female Assessment You had [...] Date Status Code Code System NIDDM active 24580075 SNOMED-CT CAD active 45640974 SNOMED-CT MYOCARDIAL INFARCT active 44453161 S NOMED-CT GERD active 656416625 SNOMED-CT DEPRESSION active 15544880 SNOMED-CT HIGH CHOLESTEROL 05/01/2023 resolved 72432550 SN OMED-CT STENTED ARTERY 05/01/2023 resolved 537902799 SNOM ED-CT COPD 05/01/2023 resolved 56013176 SNOMED-CT Allergies and Adverse Reactions Allergy Substance Reaction Severity Start Date Concern Status Code Code Syste m MORPHINE Vomiting (SNOMED-CT: 711219968) Moderate Active 7052 RxNorm LATEX Active 6351394 RxNorm BAND-AID BRAND ADHESIVE BANDAGES BREAK OUT (SNOMED-CT: null) Moderate Active 8000029 RxNorm Plan of Treatment MRI L SPINE [...]
--- OUTSIDE RECORDS SUMMARY | 2024-03-05 17:43 | XMS_ITS | Encounter Summary ---
Author Organization [facility] Address [address] [place] [address] Care Team Providers Care Cash Grain Grower Name Role Phone Elizabeth Dsouza MD Primary Care Provider [phone] Encounter Details Date Type Department Care Team (Late st Contact Info) Description 08/24/2017 Historical Results Only [facility] - Main [place] [phone] Unknown, Provider, Social History Tobacco Use Types [...] EST Appointment [facility] Endoscopy [address] [place] [address] Angélica Hernandez MD [address] [place] [address] 05/19/2024 13:30 EST Appointment [facility] Endoscopy [address] [place] [address] Angélica Hernandez MD [address] [address] 05/28/2024 14:15 EDT Nurse Only [facility] [address] [place] [address] 05/28/2024 14:30 EDT Office Visit [facility] [address] [place], [place] [address] Kaiser Miller MD [address] [place] [address] 2 [place] [address] documented as of this encounter Procedures Procedure Name Priority Date/Time Associated Diagnosis Comments CREATININE Routine 08/24/2017 6:00 EDT documented in this encounter Results * CREATININE (08/24/2017 6:00 EDT) CREATININE 0.70 0.52 - 1.04 mg/dL 08/24/2017 7:42 EDT [facility] eGFR >60 08/24/2017 7:42 EDT [facility] Comment: Chronic renal impairment is defined as GFR <60 Multiply result by 1.210 for patients. eGFR calculated using the IDMS-traceable MDRD Study Equation. ??(effective 01/17/2014) 08/24/2017 6:00 EDT 08/24/2017 7:07 EDT Narrative [facility] - 08/24/2017 7:42 EDT Does PT Have a Latex Allergy? UNKNOWN us Provider Unknown CHEMISTRY & BLOOD GAS ORDERA BLES Final Result [facility] documented in this encounter Visit Diagnoses Not on filedocumented in this encounter Care Teams Cash Grain Grower Relationship Specialty Start Date End Date Elizabeth Dsouza MD [address] [place] [phone] PCP - General 02/13/12 documented as of this encounter
--- OUTSIDE RECORDS SUMMARY | 2024-03-05 17:43 | XMS_ITS | Encounter Summary ---
Author Organization [facility] Address [address] [place] [address] Care Team Providers Care Events Assistant Name Role Phone Unavailable Primary Care Provider Unavailabl e Encounter Details Date Type Department Care Team (Latest Contact Info) Description 05/20/2002 8:39 EST - 05/20/2002 11:59 EST Hospital Encounter [facility] - Other [address] [place], [place] [phone] Ferdinand Richey MD Unknown, Provider, Discharge Disposition: [...] Contact Info) Description 04/06/2024 9:30 EST Appointment [facility] Endoscopy [address] [place] [address] Angélica Hernandez MD [address] [address] 05/19/2024 13:30 EST Appointment [facility] Endoscopy [address] [place] [address] Angélica Hernandez MD 111 [facility] [address] [place] [phone] 05/28/2024 14:15 EDT Nurse Only [facility] Cancer [facility] [address] [place] [address] 05/28/2024 14:30 EDT Office Visit [facility] Cancer [facility] [address] [place] [address] Kaiser Miller MD 111 [facility] 2 [place] [address] documented as of this encounter [...] ? NAVIN CLIFFORD ? Accession #: ? [id number] : ? 1955 (Age: 46) ??F ?Collect [...] Trichomonas vaginalis present. EDUCATIONAL NOTES/RECOMMENDATI ONS ? [facility] recommends following the 2001 Consensus Guidelines for the Management of Women with Cervical Cytological Abnormalities (RADHA,2002;287:212 0-9). Management algorithms have been distributed by [facility] and are available online at www.ASCCP.org. ? Document reviewed and electronically signed by: ? JONNY WADDELL MD [facility] ? Report Date: ??05/31/2002 15:45 End of Report [facility] 05/20/2002 05/24/2002 us Ferdinand Richey MD PATHOLOGY ORDERABLES Final Res ult [facility] [address] [place] [address] documented in this encounter Visit Diagnoses Not on filedocumented in this encounter
--- OUTSIDE RECORDS SUMMARY | 2024-03-05 17:43 | XMS_ITS | Encounter Summary ---
Author Organization [facility] Address [address] [place] [address] Care Team Providers Care Woodwork Salvage Inspector Name Role Phone Elizabeth Dsouza MD Primary Care Provider [phone] Encounter Details Date Type Department Care Team (Late st Contact Info) Description 08/21/2017 Historical Results Only [facility] - Main [place] [address] [place] [phone] Les Galvan MD [address] [place] [address] Social History Tobacco Use Types [...] Appointment [facility] Endoscopy [address] [place] [address] Angélica Hernandez MD [address] [place] [address] [phone] 05/19/2024 13:30 EST Appointment [facility] Endoscopy [address] [place] [address] Angélica Hernandez MD [address] [address] [phone] 05/28/2024 14:15 EDT Nurse Only [facility] Cancer Treatment [place] [address] [place], [place] [address] 05/28/2024 14:30 EDT Office Visit [facility] Cancer Treatment [place] [address] [place] [address] Kaiser Miller MD 111 [facility] 2 [place] [address] documented as of this encounter Procedures Procedure Name Priority Date/Time Associated Diagnosis Comments HYPOCHROMASIA - [facility] Routine 08/21/2017 6:30 EDT documented in this encounter Results * [facility] (08/21/2017 6:30 EDT) [facility] 1+ 08/21/2017 7:45 EDT [facility] 08/21/2017 6:30 EDT 08/21/2017 7:00 EDT Les An MD CHEMISTRY & BLOOD G ORDERABLES Final Result [facility] documented in this encounter Visit Diagnoses Not on filedocumented in this encounter Care Teams Woodwork Salvage Inspector Relationship Specialty Start Date End Date Elizabeth Dsouza MD [address] [place] [phone] PCP - General 02/13/12 documented as of this encounter
--- OUTSIDE RECORDS SUMMARY | 2024-03-05 17:43 | XMS_ITS | Encounter Summary ---
Author Organization [facility] Address [address] [place] [address] Care Team Providers Care Drama Critic Name Role Phone Elizabeth Dsouza MD Primary Care Provider Reason for Referral * Vascular Lab (Routine) - Authorization Not Required Specialty Diagnoses / Procedures Referred By Loli rose Referred To Contact Diagnoses Arterial bruit Procedures US LOWER ARTERIAL DUPLEX US UPPER ARTERIAL DUPLEX Elizabeth Dsouza MD [address] [place] [address] Phone: tel: fax: Referral ID Status Reason Start Date Expiration Date Visits Requested Visits Authorized [id number] Authorization Not Required 0 1 1 Encounter Details Date Type Department Care Team (Latest Contact Info) Description 12/27/2019 Transcribe Orders Vascular Surgery and Endovascular Therapy - [address] [address] Elizabeth Dsouza MD [address] [place] [address] Arterial bruit (Primary Dx) Social [...] Contact Info) Description 04/06/2024 9:30 EST Appointment [facility] Endoscopy [address] [place] [address] Angélica Hernandez MD [address] [phone] 05/19/2024 13:30 EST Appointment [facility] Endoscopy [address] [place], [place] [address] Angélica Hernandez MD [address] [place] [phone] 05/28/2024 14:[address] [facility] Cancer Treatment [address] [address] 05/28/2024 14:30 EDT Office Visit [facility] Cancer Treatment [address] [phone] Kaiser Miller MD 111 [facility] 2 [place] [address] Scheduled Orders Name Type Priority Associated Diagnoses Orde r Schedule US LOWER ARTERIAL DUPLEX Vascular Ultrasound Routine Arterial bruit 03/07/2020 documented as of this encounter Visit Diagnoses Diagnosis Arterial bruit- Primary Other symptoms involving cardiovascular system documented in this encounter Care Teams Drama Critic Relationship Specialty Start Date End Date Elizabeth Dsouza MD [address] [place] [phone] PCP - General 02/13/12 documented as of this encounter
--- OUTSIDE RECORDS SUMMARY | 2024-03-05 17:43 | XMS_ITS | Encounter Summary ---
Author Organization [facility] Address [address] [place] [address] Care Team Providers Care Winch Operator Name Role Phone Elizabeth Dsouza MD Primary Care Provider [phone] Encounter Details Date Type Department Care Team (Late st Contact Info) Description 08/21/2017 Historical Results Only [facility] Lab - Main [place] [address] [place] [phone] Les aGlvan MD [address] [place] [address] Social History Tobacco Use Types [...] Contact Info) Description 04/06/2024 9:30 EST Appointment [facility] Endoscopy [address] [place] [address] Angélica Hernandez MD [address] [phone] 05/19/2024 13:30 EST Appointment [facility] Endoscopy [address] [place] [address] Angélica Hernandez MD [address] [phone] 05/28/2024 14:15 EDT Nurse Only [facility] [place] Cancer Treatment [place] [address] [place], [place] [phone] 05/28/2024 14:30 EDT Office Visit [facility] [place] Cancer Treatment [place] [address] [place], [place] [address] Kaiser Miller MD 111 [facility] 2 [place] [address] documented as of this encounter Procedures Procedure Name Priority Date/Time Associated Diagnosis Comments COMPLETE BLOOD COUNT WITH DIFFERENTIAL (AUTO) Routine 08/21/2017 6:30 EDT documented in this encounter Results * (ABNORMAL) COMPLETE BLOOD COUNT WITH DIFFERENTIAL (AUTO) (08/21/2017 6:30 EDT) ABSOLUTE NEUTROPHIL COUN - [facility] 6.58 1.7 - 7.0 10e3/ul 08/21/2017 7:18 EDT [facility] BASO # - [facility] 0.01 0.0 - 0.3 10e3/uL 08/21/2017 7:18 [facility] BASO % - [facility] 0 0 - 2 % 08/21/2017 7:18 [facility] EOS # - [facility] 0.14 0.05 - 0.5 10e3/uL 08/21/2017 7:18 [facility] EOS % - [facility] 2 0 - 5 % 08/21/2017 7:18 [facility] GRAN % - [facility] 81(H) 40 - 80 % 08/21/2017 7:18 [facility] HEMATOCRIT - [facility] 30.9(L) 34.0 - 47.0 % 08/21/2017 7:18 [facility] HEMOGLOBIN - [facility] 8.9(L) 11.2 - 15.7 g/dl 08/21/2017 7:18 [facility] IG# - [facility] 0.02 0 - 0.07 10e3/uL 08/21/2017 7:18 [facility] IG% - [facility] 0.2 0 - 0.9 % 08/21/2017 7:18 [facility] LYMPH # - [facility] 0.70(L) 0.9 - 2.9 10e3/uL 08/21/2017 7:18 [facility] LYMPH% - [facility] 9(L) 20 - 40 % 08/21/2017 7:18 [facility] MEAN CORPUSCULAR HGB - [facility] 20.6(L) 26 - 34 pg 08/21/2017 7:18 [facility] MEAN CORPUSCULAR HGB CONC - [facility] 28.8(L) 31 - 36 g/dL 08/21/2017 7:18 [facility] MEAN CELL VOLUME - [facility] 71.7(L) 77 - 100 fl 08/21/2017 7:18 [facility] MONO # - [facility] 0.65 0.3 - 0.9 10e3/uL 08/21/2017 7:18 [facility] MONO% - [facility] 8 0 - 12 % 08/21/2017 7:18 [facility] PLATELET COUNT 172 150 - 400 10e3/ul 08/21/2017 7:18 [facility] RED BLOOD COUNT - [facility] 4.31 3.8 - 5.2 10e6/ul 08/21/2017 7:18 [facility] RED CELL DISTRI WIDTH - [facility] 18.4(H) 11.8 - 15.6 % 08/21/2017 7:18 [facility] WHITE BLOOD COUNT - [facility] 8.1 3.5 - 10.5 10e3/ul 08/21/2017 7:18 [facility] 08/21/2017 6:30 EDT 08/21/2017 7:00 EDT Les An MD HEMATOLOGY & PF4 OR DERABLES Final Result [facility] documented in this encounter Visit Diagnoses Not on filedocumented in this encounter Care Teams Winch Operator Relationship Specialty Start Date End Date Elizabeth Dsouza MD [address] [place] [phone] PCP - General 02/13/12 documented as of this encounter
--- OUTSIDE RECORDS SUMMARY | 2024-03-05 17:43 | XMS_ITS | Encounter Summary ---
Author Organization [facility] Address [address] [place] [address] Care Team Providers Care Hand Mica Plate Layer Name Role Phone Elizabeth Dsouza MD Primary Care Provider [phone] Encounter Details Date Type Department Care Team (Late st Contact Info) Description 08/22/2017 Historical Results Only [facility] Radiology Results [address] [place], [place] [id number] Beliks Valdez MD 130 [place] [address] Social History Tobacco Use Types [...] Contact Info) Description 04/06/2024 9:30 EST Appointment [facility] Endoscopy [address] [place] [address] Angélica Hernandez MD [address] [address] 05/19/2024 13:30 EST Appointment [facility] Endoscopy [address] [place] [address] Agnélica Hernandez MD [address] [phone] 05/28/2024 14:15 EDT Nurse Only [facility] [address] [place] [address] 05/28/2024 14:30 EDT Office Visit [facility] [address] [place] [address] Kaiser Miller MD 111 [facility] 2 [place] [address] documented as of this encounter [...] EDT Narrative 08/22/2017 10:00 EDT ? [facility] ?[facility] ?[address] [place], [place] [address] ? [id number] ?C A R D I A C ?S T R E S S ?T E S T ?R E P O R T NAME: CLIFFORD,MELODIE ? : 57 TELEPHONE: [phone] ? MR#: [id number] ? *[facility] [place] [facility]* *[facility]* [address] [place] [address] Myocardial Perfusion Imaging - SPECT Regadenoson Date [...] abnormality. Indication: ?? NSTEMI. History: ??ADMITTED TO [facility] 08/18/17 WITH LEFT SIDED ABD. PAIN. DIAGNOSED [...] day - rest/stress. ?The patient was ? [facility] ?[facility] ?[address] [place], [place] [address] ? [id number] ?C A R D I A C ?S T R E S S ?T E S T ?R E P O R T NAME: MELODIE CLIFFORD ? : 57 TELEPHONE: [phone] ? MR#: [id number] ? imaged in the supine position. Attenuation [...] peak heart rate and blood pressure was 78718tk Hg/min. Stress ECG: ??RESTING LEXISCAN STUDY NO [...] procedure. This study was interpreted by [facility] Cardiology. ??Study status: ??Routine. ??Consent: ??The risks, benefits, and alternatives to the procedure were explained to the patient and informed consent was ? [facility] ?[facility] ?[address] [place], [place] [address] ? [id number] ?C A R D I A C ?S T R E S S ?T E S T ?R E P O R T NAME: BISHOPMELODIE ? : 57 TELEPHONE: [phone] ? MR#: [id number] ? obtained. ??Procedure: ??Initial setup. A baseline [...] Procedure Note Susy Walls - 01/03/2019 [facility] [address] [place] [id number] [id number] C A R D I A C S T R E S S T E S T R E P O R T NAME: KERYR CLIFFORD: 57 TELEPHONE: [phone] MR#: [id number] *[facility]* *[facility]* [address] [place] [address] Myocardial Perfusion Imaging - SPECT Regadenoson Date [...] motion abnormality. Indication: NSTEMI. History: ADMITTED TO [facility] 08/18/17 WITH LEFT SIDED ABD. PAIN. DIAGNOSED [...] day - rest/stress. The patient was [facility] [address] [place], [place] [address] [id number] C Joel Potter D I A C S T R E S S T E S T R E P O R T NAME: MING CLIFFORDNICOLE: 57 TELEPHONE: [phone] MR#: [id number] imaged in the supine position. Attenuation correction [...] peak heart rate and blood pressure was 52766qd Hg/min. Stress ECG: RESTING LEXISCAN STUDY NO [...] procedure. This study was interpreted by [facility]. Study status: Routine. Consent: The risks, benefits, and alternatives to the procedure were explained to the patient and informed consent was [facility] [address] [place], [place] [address] [id number] C A R D I A C S T R E S S T E S T R E P O R T NAME: MEERA CLIFFORDHarsh: 57 TELEPHONE: [phone] MR#: [id number] obtained. Procedure: Initial setup. A baseline ECG [...] signed by Susy Walls MD 08/22/2017 13:27 us Provider Unknown CARDIAC NM ORDERABLES Final Result * NM CARD SPECT NUCLEAR STRESS (08/22/2017 9:16 EDT) Anatomical Region Laterality Modality Chest Nuclear Stress 08/22/2017 9:16 EDT Narrative 08/25/2017 16:10 EDT ? EXAM: NUCLEAR MEDICINE/NUCLEAR STRESS MAMADOU EX. D/ (0916) ? CLINICAL INFORMATION: ? NSTEMI ? *[facility]* ? *[facility]* ? [address] ? [place] [address] ? Myocardial Perfusion Imaging - SPECT ? [...] Indication: ?? NSTEMI. ? History: ??ADMITTED TO [facility] 08/18/17 WITH LEFT SIDED ABD. PAIN. DIAGNOSED [...] heart rate and ? blood pressure was 79503lc Hg/min. ? Stress ECG: ??RESTING LEXISCAN STUDY [...] procedure. This study was interpreted by [facility] [place] [facility]iology. ? Study status: ??Routine. ? Consent: [...] M.D. ? CC: ? Transcribed Date/Time: 08/25/2017 (7230) ? Trial Court Justice: JONATHAN ? Printed Date/Time: 09/04/2018 (8788) ? PAGE 3 ? Signed Report ? Procedure Note Susy Walls G - 01/21/2019 EXAM: NUCLEAR MEDICINE/NUCLEAR STRESS MAMADOU EX. D/ (0916) CLINICAL INFORMATION: NSTEMI *[facility]* *[facility]* [address] [place] [address] Myocardial Perfusion Imaging - SPECT Regadenoson Date [...] motion abnormality. Indication: NSTEMI. History: ADMITTED TO [facility] 08/18/17 WITH LEFT SIDED ABD. PAIN.DIAGNOSED WITH [...] the peak heart rateand blood pressure was 15309rn Hg/min. Stress ECG: RESTING LEXISCAN STUDY NO [...] procedure. This study was interpreted by [facility] Cardiology. Study status: Routine. Consent: [...] SUSY WALLS M.D. CC: Transcribed Date/Time: 08/25/2017 (3602) Trial Court Justice: JONATHAN Printed Date/Time: 09/04/2018 (1486) PAGE 3 Signed Report Belkis Valdez MD CARDIAC NM ORDERABLES Fin al Result * MAGNESIUM (08/22/2017 6:30 EDT) Magnesium 1.70 1.7 - 2.8 mg/dL 08/22/2017 7:32 EDT [facility] 08/22/2017 6:30 EDT 08/22/2017 6:52 EDT us Les An MD CHEMISTRY & BLOOD G ORDERABLES Final Result [facility] * (ABNORMAL) BASIC METABOLIC PANEL (BMP) (08/22/2017 6:30 EDT) Pathologist [facility] BUN [facility] 19 10 - 26 mg/dL 08/22/2017 7:32 [facility] CALCIUM - [facility] 8.1(L) 8.5 - 10.5 mg/dL 08/22/2017 7:32 [facility] Chloride 108 96 - 110 mmol/L 08/22/2017 7:32 [facility] CO2 Total 22 22 - 32 mEq/L 08/22/2017 7:32 [facility] CREATININE 0.86 0.52 - 1.04 mg/dL 08/22/2017 7:32 [facility] eGFR >60 08/22/2017 7:32 [facility] Comment: Chronic renal impairment is defined as GFR <60 Multiply result by 1.210 for patients. eGFR calculated using the IDMS-traceable MDRD Study Equation. ??(effective 01/17/2014) Anion Gap 8 0 - 18 08/22/2017 7:32 [facility] GLUCOSE - [facility] 96 70 - 100 mg/dL 08/22/2017 7:32 [facility] Potassium 3.3(L) 3.5 - 5.0 mEq/L 08/22/2017 7:32 [facility] Sodium 138 136 - 145 mEq/L 08/22/2017 7:32 [facility] 08/22/2017 6:30 EDT 08/22/2017 6:52 EDT us Les An MD CHEMISTRY & BLOOD G ORDERABLES Final Result [facility] * (ABNORMAL) COMPLETE BLOOD COUNT AND DIFFERENTIAL (08/22/2017 6:30 EDT) Pathologist [facility] ABSOLUTE NEUTROPHIL COUN [facility] 5.58 1.7 - 7.0 10e3/ul 08/22/2017 7:47 EDT [facility] BASOPHILS - [facility] 0.06 0.0 - 0.3 10e3/uL 08/22/2017 7:47 [facility] BANDS - [facility] 2 0 - 3 % 08/22/2017 7:47 [facility] BASOPHIL - [facility] 1 0 - 2 % 8 7:47 [facility] EOS # - [facility] 0.06 0.05 - 0.5 10e3/uL 08/22/2017 7:47 [facility] EOSINOPHILS - [facility] 1 0 - 5 % 2017 7:47 [facility] HEMATOCRIT - [facility] 30.8(L) 34.0 - 47.0 % 08/22/2017 7:11 [facility] HEMOGLOBIN - [facility] 9.0(L) 11.2 - 15.7 g/dl 08/22/2017 7:11 [facility] HYPOCHROMASIA - [facility] 1+ 08/22/2017 7:47 [facility] LYMPH # - [facility] 0.47(L) 0.9 - 2.9 10e3/uL 08/22/2017 7:47 [facility] LYMPHOCYTES - [facility] 7(L) 20 - 40 % 2017 7:47 [facility] MEAN CORPUSCULAR HGB - [facility] 20.7(L) 26 - 34 pg 08/22/2017 7:11 [facility] MEAN CORPUSCULAR HGB CONC - [facility] 29.2(L) 31 - 36 g/dL 08/22/2017 7:11 [facility] MEAN CELL VOLUME - [facility] 71.0(L) 77 - 100 fl 08/22/2017 7:11 [facility] MONO # - [facility] 0.61 0.3 - 0.9 10e3/uL 08/22/2017 7:47 [facility] MONOCYTE - [facility] 9 0 - 12 % 8 7:47 [facility] PLATELET COUNT 178 150 - 400 10e3/ul 08/22/2017 7:11 [facility] NEUTROPHILS - [facility] 80 40 - 80 % 2017 7:47 [facility] RED BLOOD COUNT - [facility] 4.34 3.8 - 5.2 10e6/ul 08/22/2017 7:11 [facility] RED CELL DISTRI WIDTH - [facility] 18.4(H) 11.8 - 15.6 % 08/22/2017 7:11 [facility] WHITE BLOOD COUNT - [facility] 6.8 3.5 - 10.5 10e3/ul 08/22/2017 7:11 [facility] 08/22/2017 6:30 EDT 08/22/2017 6:52 EDT Les An MD PACKAGES & DNA PROB E ORDERABLES Final Result [facility] documented in this encounter Visit Diagnoses Not on filedocumented in this encounter Care Teams Hand Mica Plate Layer Relationship Specialty Start Date End Date Elizabeth Dsouza MD [address] [place] [phone] PCP - General 02/13/12 documented as of this encounter
--- OUTSIDE RECORDS SUMMARY | 2024-03-05 17:43 | XMS_ITS | Encounter Summary ---
Author Organization [facility] Address [address] [place] [address] Care Team Providers Care Quarry Supervisor Name Role Phone Elizabeth Dsouza MD Primary Care Provider [phone] Encounter Details Date Type Department Care Team (Late st Contact Info) Description 08/21/2017 Historical Results Only [facility] - Main [place] [address] [place] [phone] Les Galvan MD [address] [place] [address] Social History Tobacco Use Types [...] Contact Info) Description 04/06/2024 9:30 EST Appointment [facility] Endoscopy [address] [place] [address] Angélica Hernandez MD [address] [address] 05/19/2024 13:30 EST Appointment [facility] Endoscopy [address] [place] [address] Angélica Hernandez MD [address] [phone] 05/28/2024 14:15 EDT Nurse Only [facility] 130 [place], [place] [address] 05/28/2024 14:30 EDT Office Visit [facility] 130 [place] [address] Kaiser Miller MD 111 [facility] 2 [place] [address] documented as of this encounter Procedures Procedure Name Priority Date/Time Associated Diagnosis Comments URINE CULTURE IF POSITIVE Routine 08/21/2017 8:53 EDT MICROCYTES - [facility] Routine 08/21/2017 6:3 0 EDT C REACTIVE PROTEIN Routine 08/21/2017 6: 30 EDT MAGNESIUM Routine 08/21/2017 6:30 EDT BASIC METABOLIC PANEL (BMP) Routine 08/21/2017 6:30 EDT documented in this encounter Results * URINE CULTURE IF POSITIVE (08/21/2017 8:53 EDT) URINE CULTURE IF UA POSITIVE - [facility] 08/22/2017 11:09 EDT [facility] URINE CULTURE IF UA POSITIVE - [facility] No growth. 08/22/2017 11:09 EDT [facility] 08/21/2017 8:53 EDT 08/21/2017 8:53 EDT Comment:VOID us Choco Freeman MD MICROBIOLOGY - GENERA L ORDERABLES Final Result [facility] * MAGNESIUM (08/21/2017 6:30 EDT) Pathologist [facility] Magnesium 1.90 1.7 - 2.8 mg/dL 08/21/2017 8:08 EDT [facility] 08/21/2017 6:30 EDT 08/21/2017 7:00 EDT Les An MD CHEMISTRY & BLOOD G ORDERABLES Final Result [facility] * (ABNORMAL) C REACTIVE PROTEIN (08/21/2017 6:30 EDT) Pathologist [facility] C-Reactive Protein 347.1(H) <10.0 mg/L 08/21/2017 8:37 EDT [facility] 08/21/2017 6:30 EDT 08/21/2017 7:00 EDT Lse An MD CHEMISTRY & BLOOD G ORDERABLES Final Result Performing Organization Address City/Special Care Hospital/ZIP Co de Phone Number [facility] * (ABNORMAL) BASIC METABOLIC PANEL (BMP) (08/21/2017 6:30 EDT) BUN - [facility] 24 10 - 26 mg/dL 08/21/2017 8:08 EDT [facility] CALCIUM - [facility] 8.4(L) 8.5 - 10.5 mg/dL 08/21/2017 8:08 [facility] Chloride 108 96 - 110 mmol/L 08/21/2017 8:08 [facility] CO2 Total 23 22 - 32 mEq/L [facility]2017 [facility]ATININE 0.97 0.52 - 1.04 mg/dL [facility]/21/2017 [facility] eGFR 58 [facility]2017 [facility] Comment: Stage 3: Moderate renal impairment is defined as GFR 30-59 Multiply result by 1.210 for patients. eGFR calculated using the IDIA-traceable MDRD Study Equation. ??(effective 01/17/2014) Anion Gap 9 0 - 18 08/21/2017 8:06 EDT [facility] GLUCOSE - [facility] 105(H) 70 - 100 mg/dL 08/21/2017 8:08 EDT [facility] Potassium 3.8 3.5 - 5.0 mEq/L 08/21/2017 8:08 EDT [facility] Sodium 140 136 - 145 mEq/L 08/21/2017 8:08 EDT [facility] 08/21/2017 6:30 EDT 08/21/2017 7:00 EDT Les An MD CHEMISTRY & BLOOD G ORDERABLES Final Result Performing Organization Address City/Special Care Hospital/ZIP Co de Phone Number [facility] * [facility] (08/21/2017 6:30 EDT) [facility] 1+ 08/21/2017 7:45 EDT [facility] 08/21/2017 6:30 EDT 08/21/2017 7:00 EDT us Les An MD CHEMISTRY & BLOOD G ORDERABLES Final Result [facility] documented in this encounter Visit Diagnoses Not on filedocumented in this encounter Care Teams Quarry Supervisor Relationship Specialty Start Date End Date Elizabeth Dsouza MD [address] [place] [address] PCP - General 02/13/12 documented as of this encounter
--- OUTSIDE RECORDS SUMMARY | 2024-03-05 17:43 | XMS_ITS | Encounter Summary ---
Author Organization [facility] Address [address] [place] [address] Care Team Providers Care Adzing And Boring Machine Feeder Name Role Phone Elizabeth Dong MD Primary Care Provider [phone] Encounter Details Date Type Department Care Team (Late st Contact Info) Description 12/16/2013 Results Only [facility] Laboratory Services - [facility] ([facility]) [address] [place] [address] Elizabeth Dong MD [address] [place] [address] Social History Tobacco Use Types [...] EST Appointment [facility] Endoscopy [address] [place], [place] [address] Angélica Hernandez MD [address] [phone] 05/19/2024 13:30 EST Appointment [facility] Endoscopy [address] [place] [address] Angélica Hernandez MD [address] [phone] 05/28/2024 14:15 EDT Nurse Only [facility] 130 [place] [address] 05/28/2024 14:30 EDT Office Visit [facility] [address] [place] [address] Kaiser Miller MD 111 [facility] 2 [place] [address] documented as of this encounter [...] when reading/interpreti ng unformatted reports. Name: ? CLIFFORDDAYNEVIKRAM Joelle ? Accession #: ? [id number] ? : ? 1955 (Age: 58) ??F ?Collect Date: ? 12/16/2013 ? Location: ? [facility] ? Receive Date: ? 12/20/2013 ? Provider: ELIZABETH DONG MD Copy to: ? Final Report SPECIMEN ADEQUACY ? Satisfactory for Evaluation - transformation zone component present GENERAL CATEGORIZATION ? Epithelial Cell Abnormality INTERPRETATION ? Squamous Cell Abnormality - Low grade squamous intraepithelial lesion (LSIL). EDUCATIONAL NOTES/RECOMMENDATI ONS ? [facility] recommends following ASCCP's 2012 Updated Consensus Guidelines [...] 33,35,39,45,51,52, 56,58,59,66, and 68 is detected by electrical technician mediated amplification. High and intermediate risk HPV [...] confirmed the above diagnosis. End of Report [facility] 12/16/2013 12/20/2013 us Elizabeth Dong MD PATHOLOGY ORDERABLES Final Res ult [facility] [address] [place] [address] documented in this encounter Visit Diagnoses Not on filedocumented in this encounter Care Teams Adzing And Boring Machine Feeder Relationship Specialty Start Date End Date Elizabeth Dong MD [address] [place] [phone] PCP - General 02/13/12 documented as of this encounter
--- OUTSIDE RECORDS SUMMARY | 2024-03-05 17:43 | XMS_ITS | Encounter Summary ---
Author Organization [facility] Address [address] [place] [address] Care Team Providers Care Pet Counselor Name Role Phone Elizabeth Dsouza MD Primary Care Provider [phone] Encounter Details Date Type Department Care Team (Latest Contact Info) Description 12/16/2013 11:47 EDT - 12/16/2013 23:59 EDT Hospital Encounter [address] [address] Unknown, Provider, Discharge Disposition: Home or Self [...] Code Departure Means Destination Home or Self Long Term documented in this encounter Plan of Treatment Upcoming Encounters Date Type Department Care Team (Late st Contact Info) Description 04/06/2024 9:30 EST Appointment [facility] Endoscopy [address] [place] [address] Angélica Hernandez MD [address] [phone] 05/19/2024 13:30 EST Appointment [facility] Endoscopy [address] [place] [address] Angélica Hernandez MD [address] [phone] 05/28/2024 14:15 EDT Nurse Only [facility] [address] [place], [place] [address] 05/28/2024 14:30 EDT Office Visit [facility] [address] [place], [place] [address] Kaiser Miller MD 111 [facility] 2 [place] [address] documented as of this encounter Visit Diagnoses Not on filedocumented in this encounter Care Teams Pet Counselor Relationship Specialty Start Date End Date Elizabeth Dsouza MD [address] [place] [phone] PCP - General 02/13/12 documented as of this encounter
--- OUTSIDE RECORDS SUMMARY | 2024-03-05 17:43 | XMS_ITS | Encounter Summary ---
Author Organization [facility] Address [address] [place] [address] Care Team Providers Care Flask Pusher Name Role Phone Elizabeth Dsouza MD Primary Care Provider [phone] Encounter Details Date Type Department Care Team (Late st Contact Info) Description 09/05/2020 Lab Requisition [facility] Pathology & Laboratory Medicine - [address] [address] Outr Resulting Lab, Provider Social History Tobacco [...] EST Appointment [facility] Endoscopy [address] [place], [place] [address] Angélica Hernandez MD [address] [phone] 05/19/2024 13:30 EST Appointment [facility] Endoscopy [address] [place] [address] Angélica Hernandez MD [address] [phone] 05/28/2024 14:15 EDT Nurse Only [facility] [address] [place] [address] 05/28/2024 14:30 EDT Office Visit [facility] [address] [place] [address] Kaiser Miller MD 111 [facility] 2 [place] [address] documented as of this encounter Procedures Procedure Name Priority Date/Time Associated Diagnosis Comments CELIAC DISEASE PANEL Routine 09/05/2020 10:00 EDT documented in this encounter Results * CELIAC DISEASE PANEL (09/05/2020 10:00 EDT) Tissue Transglutaminase Antibody IGA <1.2 <4.0 U/mL 09/06/2020 12:05 EDT [facility] Comment: A negative result may be due to IgA deficiency and does not rule out celiac disease. ? Negative: ??<4.0 U/mL ? Weak Positive: ??4.0 - 10.0 U/mL ? Positive: ??>10.0 U/mL Results were obtained with the PhotoTheraA Lite R h-tTG IgA DIXON assay on the Press DSX. IgA 179 85 - 499 mg/dL 09/06/2020 12:05 EDT [facility] Celiac Disease Interpretation Negative Serology. Celiac disease unlikely. Approximately 10% of patients with celiac disease are seronegative. Patients who are already adhering to a gluten-free diet may also be seronegative. If celiac disease is highly clinically suspected, referral to gastroenterology for additional evaluation is recommended. 09/06/2020 12:05 EDT [facility] Blood VENOUS BLOOD / Unknown 09/05/2020 10:00 EDT 09/05/2020 21:34 EDT us Provider Outr Resulting Lab IMMUNOLOGY AND SEROL OGY ORDERABLES Final Result Performing Organization Address City/State/[facility] Co de Phone Number [facility] [address] [place] [address] documented in this encounter Visit Diagnoses Not on filedocumented in this encounter Care Teams Flask Pusher Relationship Specialty Start Date End Date Elizabeth Dsouza MD [address] [place] [phone] PCP - General 02/13/12 documented as of this encounter
--- OUTSIDE RECORDS SUMMARY | 2024-03-05 17:43 | XMS_ITS | Encounter Summary ---
Author Organization [facility] Address [address] [place] [address] Care Team Providers Care [employer] Vat Worker Name Role Phone Elizabeth Dsouza MD Primary Care Provider [phone] Encounter Details Date Type Department Care Team (Late st Contact Info) Description 03/23/2020 Lab Requisition [facility] Pathology & Laboratory Medicine - [address] [id number] Elizabeth Dsouza MD [address] [place] [phone] Encounter for general adult medical examination [...] Appointment [facility] Endoscopy [address] [place], [place] [id number] Angélica Hernandez MD [address] [phone] 05/19/2024 13:[address] [facility] Endoscopy [address] [place] [address] Angélica Hernandez MD [address] [phone] 05/28/2024 14:15 EDT Nurse Only [facility] Cancer [facility] [address] [place], [place] [phone] 05/28/2024 14:30 EDT Office Visit [facility] Cancer [facility] [address] [place], [place] [phone] Kaiser Miller MD 111 [facility] [address] [place] [phone] documented as of this encounter Procedures Procedure [...] PCR Positive( A) Negative 04/11/2020 7:57 EST [facility] Comment:E6 OR E7 mRNA from o ne or more types of HPV types 16,18,31,33,35,39,45,51,52,56,58,59,66, and 68 is detected by business control specialist mediated amplification. High and intermediate risk HPV types are associated with most squamous intraepithelial lesions and cervical cancers. Papanicolaou smear specimen (specimen) CERVIX UTERI STRUCTURE / Unknown 03/21/2020 10:00 EST 04/03/2020 10:59 EST us Elizabeth Dsouza MD MICROBIOLOGY - GENERAL ORDERAB LES Final Result [facility] [address] [place] [address] * PAP TEST (03/21/2020 10:00 EST) Specimens A. Cervix and/or Endocervix , ThinPrep Imaging System with Manual Evaluation 04/11/2020 7:57 [facility] Specimen Adequacy Satisfactory for Evaluation - transformation zone component present 04/11/2020 7:57 [facility] General Categorization Epithelial Cell Abnormality 04/11/2020 7:57 [facility] Descriptive Diagnosis Squamous Cell Abnormality - Low grade squamous intraepithelial lesion (LSIL). Shift in marielos present suggestive of bacterial vaginosis. 04/11/2020 7:57 [facility] Educational Comments [facility] recommends following ASCCP's 2012 Updated Consensus Guidelines for the Management of Abnormal Cervical Cancer Screening Tests and Cancer Precursors (JLGTD, 2013; 17(5):S1-S27). Consensus guidelines are available online at www.asccp.org. 04/11/2020 7:57 [facility] Attestation By the signature below, the attending physician certifies that they have personally conducted a gross and/or microscopic examination of the described specimens and rendered or confirmed the above diagnosis. 04/11/2020 7:57 [facility] at 0757 Clinical History See below 04/11/19 7:57 [facility] HPV The result for the Human Papillomavirus (HPV) Detection-High Risk Types is Positive . E6 OR E7 mRNA from one or more types of HPV types 16,18,31,33,35,39 ,45,51,52,56,58,5 9,66, and 68 is detected by business control specialist mediated amplification. High and intermediate risk HPV types are associated with most squamous intraepithelial lesions and cervical cancers. Testing was performed on specimen [id number] and was resulted on 04/11/2020 0724 EST by ÁLVARO, LAB INSTRUMENT RESULTS IN 04/11/2020 7:57 EST [facility] Performing Lab [facility] 04/11/2020 7:57 EST [facility] Scanned Images 04/11/2020 7:57 EST [facility] Papanicolaou smear specimen (specimen) CERVIX UTERI STRUCTURE / Unknown 03/21/2020 10:00 EST 03/23/2020 13:13 EST us Elizabeth Dsouza MD PATHOLOGY ORDERABLES Final Res ult [facility] [address] [place] [address] documented in this encounter Visit Diagnoses Diagnosis Encounter for general adult medical examination without abnormal findings Unspecified general medical examination Encounter for screening for malignant neoplasm of cervix Screening for malignant neoplasm of the cervix documented in this encounter Care Teams [employer] Vat Worker Relationship Specialty Start Date End Date Elizabeth Dsouza MD [address] [place] [phone] PCP - General 02/13/12 documented as of this encounter
--- OUTSIDE RECORDS SUMMARY | 2024-03-05 17:43 | XMS_ITS | Encounter Summary ---
Author Organization [facility] Address [address] [place] [address] Care Team Providers Care Water Filterer Helper Name Role Phone Elizabeth Dsouza MD Primary Care Provider [phone] Reason for Visit * Reason Onset Date Comments Appointment Related 03/24/2020 Encounter Details Date Type Department Care Team (Late st Contact Info) Description 03/24/2020 Telephone Vascular Surgery and Endovascular Therapy - [address] [phone] Acosta Christine MD [address] [facility], Level [address] [place] [phone] Appointment Related Social History Tobacco [...] Telephone Encounter - Janis Velazquez - 03/24/2020 1851 EST Vascular ultrasound and consult with Dr. Christine have been cancelled per patients' request via PAS message. * Telephone Encounter - Rebecca Jimenez - 03/24/2020 0733 EST PAS Message:Pt. Called at 7:30am today to cancel lupis. Today at 11:30 with [facility]. Reason-no ride. She will call to reschedule. documented in this encounter Plan of Treatment Upcoming Encounters Date Type Department Care Team (Late st Contact Info) Description 04/06/2024 9:30 EST Appointment [facility] Endoscopy [address] [place] [address] Angélica Hernandez MD [address] [place] [phone] 05/19/2024 13:30 EST Appointment [facility] Endoscopy [address] [place] [address] Angélica Hernandez MD [address] [place] [phone] 05/28/2024 14:15 EDT Nurse Only [facility] Treatment [address] [phone] 05/28/2024 14:30 EDT Office Visit [facility] Cancer Treatment [address] [address] Kaiser Miller MD 111 [facility] [address] [place] [phone] documented as of this encounter Visit Diagnoses Not on filedocumented in this encounter Care Teams Water Filterer Helper Relationship Specialty Start Date End Date Elizabeth Dsouza MD [address] [place] [phone] PCP - General 02/13/12 documented as of this encounter
--- OUTSIDE RECORDS SUMMARY | 2024-03-05 17:43 | XMS_ITS | Encounter Summary ---
Author Organization [facility] Address [address] [place] [address] Care Team Providers Care Real Estate Photographer Name Role Phone Elizabeth Dsouza MD Primary Care Provider [phone] Encounter Details Date Type Department Care Team (Late st Contact Info) Description 08/18/2017 Historical Results Only [facility] Radiology Results [address] [place] [address] Elizabeth Brennan MD [address] [place] [address] Social History Tobacco Use Types [...] Appointment [facility] Endoscopy [address] [place] [address] Angélica Hernandez MD [address] [address] 05/19/2024 13:30 EST Appointment [facility] Endoscopy [address] [place] [address] Angélica Hernandez MD [address] [address] 05/28/2024 14:15 EDT Nurse Only [facility] Cancer [facility] [address] [place] [address] 05/28/2024 14:30 EDT Office Visit [facility] [address] [place] [address] Kaiser Miller MD [address] [facility] [address] [place] [address] documented as of this encounter Procedures Procedure Name Priority Date/Time Associated Diagnosis Comments TROPONIN I Routine 08/18/2017 22:47 EDT HEMOGLOBIN AND HEMATOCRIT - [facility] Routine 08/18/2017 19:00 EDT TROPONIN I Routine [...] URINE Routine 08/18/2017 8:59 EDT URINALYSIS/COMPLETE - [facility] Routine 08/18/2017 8:55 EDT BLOOD CULTURE - [facility] Routine 08/18/2017 8:39 EDT BLOOD CULTURE - [facility] Routine 08/18/2017 7:44 EDT SPEC W/O ORDERS - [facility] Routine 8 7:44 EDT LACTIC ACID SEPSIS REFLEX - [facility] Routine 08/18/2017 7:44 EDT TROPONIN I Routine 08/18/2017 7:44 EDT COMPLETE BLOOD COUNT AND DIFFERENTIAL Routine 08/18/2017 7:44 EDT C REACTIVE PROTEIN Routine 08/18/2017 7: 44 EDT MAGNESIUM Routine 08/18/2017 7:44 EDT LIPASE Routine 08/18/2017 7:44 EDT COMPREHENSIVE METABOLIC PANEL (CMP) Routine 08/18/2017 7:44 EDT documented in this encounter Results * (ABNORMAL) TROPONIN I (08/18/2017 22:47 EDT) [facility] Troponin I (ng/mL) 1.910(HH) 0.000 - 0.034 ng/mL 08/18/2017 23:23 EDT [facility] Comment: Result called to [facility] 08/18/17 5462 Result called by Interpretation comments: ??Cutoff for a positive troponin result is set at the 99th percentile of the upper reference limit. ??Elevated troponin must always be interpreted in the context of the clinical presentation. ?Serial troponin testing 3-6 hr from baseline is favored over relying on a single troponin level. 08/18/2017 22:4 7 EDT 08/18/2017 22:49 EDT Thi Asencio DO CHEMISTRY & BLOOD GAS ORDER BHARAT Final Result Performing Organization Address [facility] de Phone Number [facility] * (ABNORMAL) TROPONIN I (08/18/2017 19:00 EDT) [facility] Troponin I (ng/mL) 1.930(HH) 0.000 - 0.034 ng/mL 08/18/2017 19:45 EDT [facility] Comment: Result called to SAMUEL HORN IN [facility] 08/18/171944 Result called by MARY JANE Interpretation comments: [...] EDT Thi Asencio DO CHEMISTRY & BLOOD GAS ORDER BHARAT Final Result Performing Organization Address [facility] Phone Number [facility] * (ABNORMAL) HEMOGLOBIN AND HEMATOCRIT - [facility] (08/18/2017 19:00 EDT) Pathologist [facility] HEMATOCRIT - [facility] 34.3 34.0 - 47.0 % 08/18/2017 19:22 EDT [facility] HEMOGLOBIN - [facility] 9.9(L) 11.2 - 15.7 g/dl 08/18/2017 19:22 EDT [facility] 08/18/2017 19:0 0 EDT 08/18/2017 19:14 EDT Thi Asencio DO CHEMISTRY & BLOOD GAS ORDER BHARAT Final Result [facility] * TRANSTHORACIC ECHO (TTE) COMPLETE (08/18/2017 15:20 EDT) Anatomical Region Laterality Modality Ultrasound 08/18/2017 15:2 0 EDT Narrative 08/18/2017 15:20 EDT ?[facility] ?[address] [place] [address] [place] [address] ? [id number] ? E C H O C A R D I O G R A M ? R E P O R T NAME: MELODIE HODGE ? : 57 ? LOCATION: DSCU ? TELEPHONE: [phone] ?MR#: [id number] ? *[facility]* *[facility]* [address] [place] [address] Date of study: 08/18/2017 Transthoracic Echocardiography M-mode, [...] ORDERING ? Thi Asencio REFERRING ?Thi Asencio ELECTROLYSIS INVESTIGATOR ??Ladan Dunne PERFORMING ?? [facility] *PROCEDURE DATA* Procedure information: ??The patient was identified by two identifiers. This study was interpreted by [facility]. Pertinent images and digital data are archived for permanent storage and are available for subsequent review. No prior study was available for comparison. ??Study status: Routine. Transthoracic echocardiography. ??M-mode, complete 2D, complete spectral Doppler, and color Doppler. A Transthoracic Echocardiogram was ?[facility] ?[address] [place] [address] [place], [place] [address] ? [id number] ? E C H O C A R D I O G R A M ? R E P O R T NAME: ,MELODIE ? : 57 ? LOCATION: [facility] ? TELEPHONE: [phone] ?MR#: [id number] ? performed. Scanning was performed from the parasternal, apical, subcostal, and suprasternal notch acoustic windows. Images were obtained using a [facility] IE33 1 cardiac ultrasound machine. Image quality [...] 2.7 ?? cm ? 2.1 - 4.0 ?[facility] ?[address] [place], [place] [address] ? [id number] ? E C H O C A R D I O G R A M ? R E P O R T NAME: MELODIE HODGE ? : 57 ? LOCATION: DSCU ? TELEPHONE: [phone] ?MR#: [id number] ? LV PW thickness, ED, PLAX ? [...] Hg ?? Right ventricle ? Value ?Reference ?[facility] ?[address] [place], [place] [address] ? [id number] ? E C H O C A R D I O G R A M ? R E P O R T NAME: HODGE,MELODIE ? : 57 ? LOCATION: DSCU ? TELEPHONE: [phone] ?MR#: [id number] ? RV pressure, S, DP ?(H) ? 37 ?mm Hg ??<=30 Legend: (L) ??and ??(H) ??marilynn values outside specified reference range. I have personally reviewed the images and have reviewed and edited the reported findings. Electronically signed by Jemima Flynn 08/18/2017 20:55 Procedure Note Jemima Flynn MD - 01/03/2019 [facility] [address] [place], [place] [address] [id number] E C H O C A R D I O G R A M R E P O R T NAME: MELODIE HODGE : 57[facility] TELEPHONE: [phone] MR#: [id number] [facility][id number] *[facility]* *[facility]* [address] [place] [address] Date of study: 08/18/2017 Transthoracic Echocardiography M-mode, [...] PM. ORDERING Thi Asencio REFERRING Thi Asencio ELECTROLYSIS INVESTIGATOR Ladan Dunne PERFORMING [facility] *PROCEDURE DATA* Procedure information: The patient was identified by two identifiers. This study was interpreted by [facility]. Pertinent images and digital data are archived for permanent storage and are available for subsequent review. No prior study was available for comparison. Study status: Routine. Transthoracic echocardiography. M-mode, complete 2D, complete spectral Doppler, and color Doppler. A Transthoracic Echocardiogram was [facility] [address] [place] [address] [id number] E C H O C A R D I O G R A M R E P O R T NAME: MELODIE HODGE : 57LOCATION: [facility] TELEPHONE: [phone] MR#: [id number] [facility][id number] performed. Scanning was performed from the parasternal, apical, subcostal, and suprasternal notch acoustic windows. Images were obtained using a [facility] IE33 1 cardiac ultrasound machine. Image quality [...] ES, PLAX 2.7 cm 2.1 - 4.0 [facility] [address] [place] [address] [id number] E C H O C A R D I O G R A M R E P O R T NAME: MELODIE HODGE : 57LOCATION: [facility] TELEPHONE: [phone] MR#: [id number] LV PW thickness, ED, PLAX 0.9 cm [...] 10 mm Hg Right ventricle Value Reference [facility] [address] [place], [place] [address] [id number] E C H O C A R D I O G R A M R E P O R T NAME: MELODIE HODGE : 57LOCATION: [facility] TELEPHONE: [phone] MR#: [id number] RV pressure, S, DP (H) 37 mm Hg <=30 Legend: (L) and (H) marilynn values outside specified reference range. I have personally reviewed the images and have reviewed and edited the reported findings. Electronically signed by Jemima Flynn 08/18/2017 20:55 Provider Unknown MD CARDIAC ECHO ORDERABLES Teresa l Result * MAGNESIUM (08/18/2017 12:55 EDT) [facility] Magnesium 1.90 1.7 - 2.8 mg/dL 08/18/2017 13:17 EDT [facility] 08/18/2017 12:5 5 EDT 08/18/2017 13:01 EDT Thi Asencio DO CHEMISTRY & BLOOD GAS ORDER BHARAT Final Result Performing Organization Address City/[facility]/ZIP Co de Phone Number [facility] * (ABNORMAL) TROPONIN I (08/18/2017 12:55 EDT) [facility] Troponin I (ng/mL) 1.770(HH) 0.000 - 0.034 ng/mL 08/18/2017 13:32 EDT [facility] Comment: Result called to DEVORAH MCDANIEL [facility] 08/18/17 1332 Result called by Interpretation comments: ??Cutoff for a positive troponin result is set at the 99th percentile of the upper reference limit. ??Elevated troponin must always be interpreted in the context of the clinical presentation. ?Serial troponin testing 3-6 hr from baseline is favored over relying on a single troponin level. 08/18/2017 12:5 5 EDT 08/18/2017 13:01 EDT Thi Asencio DO CHEMISTRY & BLOOD GAS ORDER BHARAT Final Result [facility] * LACTIC ACID (08/18/2017 12:55 EDT) [facility] LACTIC ACID - [facility] 1.6 <2.0 mmol/L 08/18/2017 13:17 EDT [facility] 08/18/2017 12:5 5 EDT 08/18/2017 13:01 EDT us Elizabeth Brennan MD CHEMISTRY & BLOOD GAS ORDERABLE S Final Result Performing Organization Address City/[facility]/ZIP Co de Phone Number [facility] * (ABNORMAL) PROTIME (08/18/2017 12:55 EDT) PROTHROMBIN TIME - [facility] 13.6(H) 9.5 - 13.4 SECONDS 08/18/2017 13:15 EDT [facility] 08/18/2017 12:5 5 EDT 08/18/2017 13:01 EDT us Thi Asencio DO HEMATOLOGY & PF4 ORDERABLES Final Result Performing Organization Address [facility] Co de Phone Number [facility] * PROTIME (08/18/2017 12:55 EDT) INR - [facility] 1.2 0.9 - 1.2 08/18/2017 13:15 EDT [facility] Comment: Low intensity INR: 2.0-3.0 High intensity INR: Consult Coag Dept. 08/18/2017 12:5 5 EDT 08/18/2017 13:01 EDT us Thi Asencio DO HEMATOLOGY & PF4 ORDERABLES Final Result Performing Organization Address [facility]/ZIP Co de Phone Number [facility] * (ABNORMAL) HEMOGLOBIN AND HEMATOCRIT - [facility] (08/18/2017 12:55 EDT) Pathologist [facility] HEMATOCRIT - [facility] 36.4 34.0 - 47.0 % 08/18/2017 13:10 EDT [facility] HEMOGLOBIN - [facility] 10.5(L) 11.2 - 15.7 g/dl 08/18/2017 13:10 EDT [facility] 08/18/2017 12:5 5 EDT 08/18/2017 13:01 EDT us Thi Donaldson Luis M DO CHEMISTRY & BLOOD GAS ORDER BHARAT Final Result [facility] * CT ABDOMEN PELVIS W [...] CC: ? Transcribed Date/Time: 08/18/2017 (1011) ? After School Counselor: ? Printed Date/Time: 09/04/2018 (1339) ? PAGE 2 ? Signed Report ? [...] By: Nelson Addison MD Transcribed: 08/18/2017 (1030) REPORT EXAM: CAT SCAN/ABDOMEN PELVIS WITH CONTRA [...] Addison MD CC: Transcribed Date/Time: 08/18/2017 (1011) After School Counselor: Printed Date/Time: 09/04/2018 (133) PAGE 2 Signed Report Elizabeth Brennan MD IMG CT ORDERABLES Final Result * XR CHEST 2 VIEWS (08/18/2017 10:04 [...] CC: ? Transcribed Date/Time: 08/18/2017 (1007) ? After School Counselor: ? Printed Date/Time: 09/04/2018 (4021) ? PAGE 1 ? Signed Report ? Procedure Note Amilcar Funk MD - 01/21/2019 EXAM: RADIOLOGY/CHEST (PR LAT) EX. D/ (0953) CLINICAL INFORMATION: FEVER INDICATION: FEVER. COMPARISON: None. TECHNIQUE: 2 views of the chest were obtained. FINDINGS: The cardiomediastinal silhouette and pulmonary vasculature arewithin normal limits. The lungs are clear. No pleural effusion or pneumothorax is seen. IMPRESSION: No acute process. REPORT SIGNED IN OTHER VENDOR SYSTEM 08/18/2017 Reported By: Amilcar Funk MD CC: Transcribed Date/Time: 08/18/2017 (1007) After School Counselor: Printed Date/Time: 09/04/2018 (7922) PAGE 1 Signed Report us Elizabeth Brennan MD IMG DIAGNOSTIC IMAGING ORDERABL ES Final Result * BACTERIAL CULTURE, URINE (08/18/2017 8:59 EDT) Urine Culture 08/19/2017 11:35 EDT [facility] Urine Culture No growth. 08/19/2017 11:35 EDT [facility] 08/18/2017 8:59 EDT 08/18/2017 9:43 EDT Comment:VOID us Elizabeth Brennan MD MICROBIOLOGY - GENERAL ORDERABL ES Final Result [facility] * URINALYSIS/COMPLETE - [facility] (08/18/2017 8:55 EDT) URINE APPEARANCE - [facility] Cloudy CLEAR 08/18/2017 9:12 [facility] URINE BACTERIA - [facility] MOD 08/18/2017 9:42 [facility] URINE BILIRUBIN - DIPSTICK - [facility] 1+ NEGATIVE 08/18/2017 9:12 [facility] Comment: Unable to confirm positive urine bilirubin. If clinical correlation is inconsistent, consider serum bilirubin. URINE BLOOD - [facility] 1+ NEG 08/18/2017 9:12 [facility] URINE COLOR - [facility] Yellow YELLOW 08/18/2017 9:12 [facility] URINE GLUCOSE - [place] - [facility] Negative NEGATIVE 08/18/2017 9:12 [facility] URINE KETONE - [facility] Negative NEGATIVE 08/18/2017 9:12 [facility] URINE LEUK ESTERASE - [facility] 2+ NEG 08/18/2017 9:12 [facility] URINE NITRITE - [place] - [facility] Negative NEG 08/18/2017 9:12 [facility] URINE PH - [facility] 6.0 4.0 - 8.0 8 9:12 [facility] URINE PROTEIN - [place] - [facility] 1+ NEG 08/18/2017 9:12 [facility] URINE RBC - [facility] 3-6 rbc/hpf 08/19/19 18 9:42 EDT [facility] URCULTIF+? - [facility] Culture Ordered 08/18/2017 9:42 EDT [facility] URINE SPECIFIC GRAVITY - [facility] 1.025 1.001 - 1.035 08/18/2017 9:12 EDT [facility] URINE SQUAMOUS CELLS - [facility] MOD NEG #/hpf 08/18/2017 9:42 EDT [facility] URINE TRICHOMONAS - [facility] FEW 08/18/2017 9:42 EDT [facility] URINE UROBILINOGEN - [place] - [facility] 0.2 0.2 - 1.0 08/18/2017 9:12 EDT [facility] URINE WBC - [facility] 20-30 NEG wbc/hpf 018 9:42 EDT [facility] 08/18/2017 8:55 EDT 08/18/2017 9:07 EDT Narrative [facility] - 08/18/2017 9:42 EDT Does PT Have a Latex Allergy? UNKNOWN us Elizabeth Brennan MD CHEMISTRY & BLOOD GAS ORDERABLE S Final Result [facility] * BLOOD CULTURE - [facility] (08/18/2017 8:39 EDT) BLOOD CULTURE - [facility] 08/23/2017 9:05 EDT [facility] BLOOD CULTURE - [facility] NO GROWTH AT 5 DAYS 08/23/2017 9:05 EDT [facility] 08/18/2017 8:39 EDT 08/18/2017 8:42 EDT Comment:PERIP [facility] - 08/23/2017 9:05 EDT Does PT Have a Latex Allergy? UNKNOWN us Elizabeth Brennan MD CHEMISTRY & BLOOD GAS ORDERABLE S Edited Result - Final [facility] * BLOOD CULTURE - [facility] (08/18/2017 7:44 EDT) BLOOD CULTURE - [facility] 08/23/2017 9:05 EDT [facility] BLOOD CULTURE - [facility] NO GROWTH AT 5 DAYS 08/23/2017 9:05 EDT [facility] 08/18/2017 7:44 EDT 08/18/2017 8:39 EDT Comment:PERIP Narrative [facility] - 08/23/2017 9:05 EDT Does PT Have a Latex Allergy? UNKNOWN us Elizabeth Brennan MD CHEMISTRY & BLOOD GAS ORDERABLE S Edited Result - Final [facility] * SPEC W/O ORDERS - [facility] (08/18/2017 7:44 EDT) Pathologist [facility] SPEC W/O ORDERS - [facility] SEE NOTE 08/18/2017 8:33 EDT [facility] Comment: ?Emergency Room Specimen(s) without Orders These specimens will be discarded in 8 hours: Gold, green, purple, blue, moody on ice, blood cultures x 1 08/18/2017 7:44 EDT 08/18/2017 8:32 EDT us Elizabeth Brennan MD CHEMISTRY & BLOOD GAS ORDERABLE S Final Result [facility] * (ABNORMAL) MAGNESIUM (08/18/2017 7:44 EDT) [facility] Magnesium 1.30(L) 1.7 - 2.8 mg/dL 08/18/2017 8:53 EDT [facility] 08/18/2017 7:44 EDT 08/18/2017 8:38 EDT Narrative [facility] - 08/18/2017 8:53 EDT Does PT Have a Latex Allergy? UNKNOWN us Elizabeth Brennan MD CHEMISTRY & BLOOD GAS ORDERABLE S Final Result [facility] * LIPASE (08/18/2017 7:44 EDT) Lipase 64 <251 U/L 08/18/2017 8:5 3 EDT [facility] 08/18/2017 7:44 EDT 08/18/2017 8:38 EDT Narrative [facility] - 08/18/2017 8:53 EDT Does PT Have a Latex Allergy? UNKNOWN us Elizabeth Brennan MD CHEMISTRY & BLOOD GAS ORDERABLE S Final Result [facility] * (ABNORMAL) C REACTIVE PROTEIN (08/18/2017 7:44 EDT) C-Reactive Protein 68.0(H) <10.0 mg/L 08/18/2017 8:53 EDT [facility] 08/18/2017 7:44 EDT 08/18/2017 8:38 EDT [facility] - 08/18/2017 8:53 EDT Does PT Have a Latex Allergy? UNKNOWN us Elizabeth Brennan MD CHEMISTRY & BLOOD GAS ORDERABLE S Final Result Performing Organization Address City/[facility]/ZIP Co de Phone Number [facility] * (ABNORMAL) COMPREHENSIVE METABOLIC PANEL (CMP) (08/18/2017 7:44 EDT) Albumin % 4.0 3.4 - 4.9 g/dL 08/18/2017 8:53 EDT [facility] ALKALINE PHOSPHATASE - [facility] 93 38 - 126 U/L 08/18/2017 8:53 EDT [facility] BILIRUBIN TOTAL 1.4(H) 0.2 - 1.3 mg/dL 08/18/2017 8:53 EDT [facility] BUN - [facility] 19 10 - 26 mg/dL 08/18/2017 8:53 EDT [facility] CALCIUM - [facility] 9.5 8.5 - 10.5 mg/dL 08/18/2017 8:53 [...] 8:53 [facility] GLUCOSE - [facility] 196(H) 70 - 100 mg/dL 08/18/2017 8:53 [facility] Potassium 4.4 3.5 - 5.0 mEq/L 08/18/2017 8:53 [facility] Sodium 138 136 - 145 mEq/L 08/18/2017 8:53 [facility] TOTAL PROTEIN - [facility] 7.0 6.2 - 8.2 gm/dL 08/18/2017 8:53 [facility] SGOT/AST - [facility] 16 14 - 36 U/L 08/18/2017 8:53 [facility] SGPT/ALT - [facility] 27 9 - 52 U/L 8 8:53 [facility] 08/18/2017 7:44 EDT 08/18/2017 8:38 EDT Narrative [facility] - 08/18/2017 8:53 EDT Does PT Have a Latex Allergy? UNKNOWN us Elizabeth Brennan MD CHEMISTRY & BLOOD GAS ORDERABLE S Final Result [facility] * (ABNORMAL) LACTIC ACID SEPSIS REFLEX - [facility] (08/18/2017 7:44 EDT) LACTIC ACID [facility] 2.8(HH) <2.0 mmol/L 08/18/2017 8:59 EDT [facility] Comment: Result called to WARD BEDOYA/ED 08/18/17 0857: Result called by KWB 08/18/2017 7:44 EDT 08/18/2017 8:39 EDT Narrative [facility] - 08/18/2017 8:59 EDT Does PT Have a Latex Allergy? UNKNOWN Elizabeth Brennan MD CHEMISTRY & BLOOD GAS ORDERABLE S Final Result [facility] * (ABNORMAL) TROPONIN I (08/18/2017 7:44 EDT) [facility] Troponin I (ng/mL) 0.696(HH) 0.000 - 0.034 ng/mL 08/18/2017 9:06 EDT [facility] Comment: Result called to RAMIRO [...] 08/18/2017 7:44 EDT 08/18/2017 8:38 EDT Narrative [facility] - 08/18/2017 9:06 EDT Does PT Have a Latex Allergy? UNKNOWN Elizabeth Brennan MD CHEMISTRY & BLOOD GAS ORDERABLE S Final Result [facility] * (ABNORMAL) COMPLETE BLOOD COUNT AND DIFFERENTIAL (08/18/2017 7:44 EDT) [facility] ABSOLUTE NEUTROPHIL COUN [facility] 9.08(H) 1.7 - 7.0 10e3/ul 08/18/2017 9:03 EDT [facility] BANDS - [facility] 18(H) 0 - 3 % 08/18/2017 9:03 [facility] HEMATOCRIT - [facility] 41.2 34.0 - 47.0 % 08/18/2017 8:49 [facility] HEMOGLOBIN - [facility] 12.2 11.2 - 15.7 g/dl 08/18/2017 8:49 [facility] LYMPH # - [facility] 0.71(L) 0.9 - 2.9 10e3/uL 08/18/2017 9:03 [facility] LYMPHOCYTES - [facility] 7(L) 20 - 40 % 2017 9:03 [facility] MEAN CORPUSCULAR HGB - [facility] 21.2(L) 26 - 34 pg 08/18/2017 8:49 [facility] MEAN CORPUSCULAR HGB CONC - [facility] 29.6(L) 31 - 36 g/dL 08/18/2017 8:49 [facility] MEAN CELL VOLUME - [facility] 71.7(L) 77 - 100 fl 08/18/2017 8:49 [facility] METAMYELOCYTE - [facility] 1 0 - 1 % 08/18/2017 9:03 [facility] MONO # - [facility] 0.30 0.3 - 0.9 10e3/uL 08/18/2017 9:03 [facility] MONOCYTE - [facility] 3 0 - 12 % 8 9:03 [facility] PLATELET COUNT 302 150 - 400 10e3/ul 08/18/2017 8:49 [facility] NEUTROPHILS - [facility] [place] 71 40 - 80 % 2017 9:03 [facility] POLYCHROMASIA - [facility] [place] 1+ 08/18/2017 9:03 [facility] RED BLOOD COUNT - [facility] [place] 5.75(H) 3.8 - 5.2 10e6/ul 08/18/2017 8:49 [facility] RED CELL DISTRI WIDTH - [facility] [place] 18.1(H) 11.8 - 15.6 % 08/18/2017 8:49 [facility] WHITE BLOOD COUNT - [facility] [place] 10.2 3.5 - 10.5 10e3/ul 08/18/2017 8:49 EDT [facility] 08/18/2017 7:44 EDT 08/18/2017 8:39 EDT Narrative [facility] - 08/18/2017 9:03 EDT Does PT Have a Latex Allergy? UNKNOWN us Elizabeth Brennan MD PACKAGES & DNA PROBE ORDERABLES Final Result [facility] documented in this encounter Visit Diagnoses Not on filedocumented in this encounter Care Teams Real Estate Photographer Relationship Specialty Start Date End Date Elizabeth Dsouza MD [address] [place] [id number] PCP - General 02/13/12 documented as of this encounter
--- OUTSIDE RECORDS SUMMARY | 2024-03-05 17:43 | XMS_ITS ---
Author Organization Unknown Address [address] [place] [phone] Phone Care Team Providers Care Spray Pilot Name Role Phone AMINAH Lai ADJUNCT PROFESSOR OF ENGLISH Attending Unavailable LETITIA RANDALL Primary Unavailable Immunization [...] em Smoking History Current every day smoker [id number] SNOMED CT Sex Female Assessment You had [...] Date Status Code Code System NIDDM active 26052977 SNOMED-CT CAD active 82695515 SNOMED-CT MYOCARDIAL INFARCT active 14496297 S NOMED-CT GERD active 223355787 SNOMED-CT DEPRESSION active 63339637 SNOMED-CT HIGH CHOLESTEROL 05/01/2023 resolved 58622395 SN OMED-CT STENTED ARTERY 05/01/2023 resolved 512424660 SNOM ED-CT COPD 05/01/2023 resolved 30947206 SNOMED-CT Allergies and Adverse Reactions Allergy Substance Reaction Severity Start Date Concern Status Code Code Syste m MORPHINE Vomiting (SNOMED-CT: 440032387) Moderate Active 7052 RxNorm LATEX Active 6490592 RxNorm BAND-AID BRAND ADHESIVE BANDAGES BREAK OUT (SNOMED-CT: null) Moderate Active 8739962 RxNorm Plan of Treatment MRI L SPINE [...]
--- OUTSIDE RECORDS SUMMARY | 2024-03-05 17:43 | XMS_ITS | Encounter Summary ---
Author Organization [facility] Address [address] [place] [address] Care Team Providers Care County Demonstrator Name Role Phone Elizabeth Dsouza MD Primary Care Provider [phone] Reason for Visit * Reason Onset Date Comments Appointment Related 08/21/2017 Encounter Details Date Type Department Care Team (Late st Contact Info) Description 08/21/2017 Telephone [facility] General Surgery - [address] [phone] Elizabeth Pendleton MD [address] [place] [phone] Appointment Related Social History Tobacco Use [...] Appointment [facility] Endoscopy [address] [place] [address] Angélica Hernandez MD [address] [phone] 05/19/2024 13:30 EST Appointment [facility] Endoscopy [address] [place] [address] Angélica Hernandez MD [address] [phone] 05/28/2024 14:15 EDT Nurse Only [facility] Cancer Treatment [address] [address] 05/28/2024 14:30 EDT Office Visit [facility] Cancer Treatment [address] [address] Kaiser Miller MD 111 [facility], [facility] 2 [place] [address] documented as of this encounter Visit Diagnoses Not on filedocumented in this encounter Care Teams County Demonstrator Relationship Specialty Start Date End Date Elizabeth Dsouza MD [address] [place] [phone] PCP - General 02/13/12 documented as of this encounter
--- OUTSIDE RECORDS SUMMARY | 2024-03-05 17:43 | XMS_ITS | Encounter Summary ---
Author Organization [facility] Address [address] [place] [address] Care Team Providers Care Hydrochloric Area Supervisor Name Role Phone Elizabeth Dsouza MD Primary Care Provider [phone] Encounter Details Date Type Department Care Team (Late st Contact Info) Description 02/26/2017 Historical Results Only [facility] Lab - Main [place] [address] [place], [place] [phone] Richar Alegre, LAVELL [address] [place] [address] [phone] Social History Tobacco Use Types Packs/Day Years [...] Contact Info) Description 04/06/2024 9:30 EST Appointment [facility] Endoscopy [address] [place] [address] Angélica Hernandez MD [address] [phone] 05/19/2024 13:30 EST Appointment [facility] Endoscopy [address] [place], [place] [phone] Angélica Hernandez MD 111 [facility] [address] [place] [phone] 05/28/2024 14:15 EDT Nurse Only [facility] Cancer [facility] [address] [place] [address] 05/28/2024 14:30 EDT Office Visit [facility] Cancer [facility] [address] [place] [address] Kaiser Miller MD 111 [facility] 2 [place] [address] documented as of this encounter Procedures Procedure Name Priority Date/Time Associated Diagnosis Comments SURGICAL PATHOLOGY Routine 02/26/2017 documented in this encounter Results * SURGICAL PATHOLOGY (02/26/2017) 02/26/2017 02/28/2017 9:1 1 EST Narrative [facility] - 03/03/2017 16:38 EST ----- ------- Name: VIKRAM CLIFFORD ? : 57 ?Age/Sex: 63/F ?Unit#: [id number] ? Loc: LAB.OPX ? Status: REG REF ?? Reg Date: 02/26/17 ? Pt.Phone Number: ? ----- ------- Specimen: [id number] ? STATUS: SOUT ?Spec Date:02/26/17 ? Physician Copies: ?Richar Alegre DD Tissues: A ?? Oral mucosa, biopsy (LEFT LOWER JAW) ? CPT: 30928 ?? Units: ??1 ?FINAL DIAGNOSIS ? MUCOSA [...] confirmed the above diagnosis. Test Performed by [facility], [address] [place] [id number] Poultry Hatchery Manager: Marina Phillip MD PHD ----- ------- Richar Alegre DDS PATHOLOGY ORDERABLES F inal Result [facility] documented in this encounter Visit Diagnoses Not on filedocumented in this encounter Care Teams Hydrochloric Area Supervisor Relationship Specialty Start Date End Date Elizabeth Dsouza MD 4 [facility] [address] PCP - General 02/13/12 documented as of this encounter
--- OUTSIDE RECORDS SUMMARY | 2024-03-05 17:43 | XMS_ITS ---
Author Organization Unknown Address [address] [place] [phone] Phone Care Team Providers Care Machine Puller Name Role Phone APOORVA Blanton MD Attending [...] em Smoking History Current every day smoker [id number] SNOMED CT Sex Female Assessment You had [...] Date Status Code Code System NIDDM active 88520495 SNOMED-CT CAD active 37036758 SNOMED-CT MYOCARDIAL INFARCT active 99578347 S NOMED-CT GERD active 591527986 SNOMED-CT DEPRESSION active 74002969 SNOMED-CT HIGH CHOLESTEROL 05/01/2023 resolved 01374763 SN OMED-CT STENTED ARTERY 05/01/2023 resolved 796232807 SNOM ED-CT COPD 05/01/2023 resolved 49033129 SNOMED-CT Allergies and Adverse Reactions Allergy Substance Reaction Severity Start Date Concern Status Code Code Syste m MORPHINE Vomiting (SNOMED-CT: 067514829) Moderate Active 7052 RxNorm LATEX Active 4323880 RxNorm BAND-AID BRAND ADHESIVE BANDAGES BREAK OUT (SNOMED-CT: null) Moderate Active 8549108 RxNorm Plan of Treatment MRI L SPINE [...]
--- OUTSIDE RECORDS SUMMARY | 2024-03-05 17:43 | XMS_ITS ---
Author Organization Unknown Address [address] [place] [phone] Phone Care Team Providers Care Traffic Recorder Name Role Phone POLLO TELLEZ DPM Attending [...] em Smoking History Current every day smoker 595283349 SNOMED CT Sex Female Assessment You had [...] Date Status Code Code System NIDDM active 97916636 SNOMED-CT CAD active 81664528 SNOMED-CT MYOCARDIAL INFARCT active 52061751 S NOMED-CT GERD active 664439445 SNOMED-CT DEPRESSION active 22359556 SNOMED-CT HIGH CHOLESTEROL 05/01/2023 resolved 09690736 SN OMED-CT STENTED ARTERY 05/01/2023 resolved 033107728 SNOM ED-CT COPD 05/01/2023 resolved 80757377 SNOMED-CT Allergies and Adverse Reactions Allergy Substance Reaction Severity Start Date Concern Status Code Code Syste m MORPHINE Vomiting (SNOMED-CT: 689091090) Moderate Active 7052 RxNorm LATEX Active 8287856 RxNorm BAND-AID BRAND ADHESIVE BANDAGES BREAK OUT (SNOMED-CT: null) Moderate Active 3293826 RxNorm Plan of Treatment MRI L SPINE [...] Code Sys tem Idiopathic peripheral neuropathy 08/28/2020 84902614 SNOMED-CT Personal Care Team Section Performer Name Performer Role Active Date Inactive Da beto
--- OUTSIDE RECORDS SUMMARY | 2024-03-05 17:43 | XMS_ITS | Encounter Summary ---
Author Organization [facility] Address [address] [place] [address] Care Team Providers Care Quality Coordinator Name Role Phone Elizabeth Dsouza MD Primary Care Provider [phone] Encounter Details Date Type Department Care Team (Late st Contact Info) Description 08/19/2017 Historical Results Only [facility] Radiology Results [address] [place] [address] Les Galvan MD [address] [place] [address] Social History Tobacco Use Types [...] Contact Info) Description 04/06/2024 9:30 EST Appointment [facility] Endoscopy [address] [place] [address] Angélica Hernandez MD [address] [phone] 05/19/2024 13:30 EST Appointment [facility] Endoscopy [address] [place] [address] Angélica Hernandez MD [address] [phone] 05/28/2024 14:[address] [facility] Treatment [place] [address] [place] [address] 05/28/2024 14:30 EDT Office Visit [facility] Cancer Treatment [place] [address] [place] [address] Kaiser Miller MD 111 [facility] 2 [place] [address] documented as of this encounter [...] MD ? CC: ? Transcribed Date/Time: 08/19/2017 (9477) ? Lean Manager: ? Printed Date/Time: 09/04/2018 (9376) ? PAGE 1 ? Signed Report ? [...] Amilcar Funk MD CC: Transcribed Date/Time: 08/19/2017 (1227) Lean Manager: Printed Date/Time: 09/04/2018 (7932) PAGE 1 Signed Report us Les An MD [facility] US ORDERABLES F inal Result * MAGNESIUM (08/19/2017 6:00 EDT) Pathologist [facility] Magnesium 2.00 1.7 - 2.8 mg/dL 08/19/2017 7:34 [facility] 08/19/2017 6:00 EDT 08/19/2017 6:52 EDT us Thi Asencio DO CHEMISTRY & BLOOD GAS ORDER BHARAT Final Result [facility] * (ABNORMAL) COMPREHENSIVE METABOLIC PANEL (CMP) (08/19/2017 6:00 EDT) Albumin % 2.7(L) 3.4 - 4.9 g/dL 08/19/2017 7:34 [facility] ALKALINE PHOSPHATASE - [facility] 56 38 - 126 U/L 08/19/2017 7:34 [facility] BILIRUBIN TOTAL 1.6(H) 0.2 - 1.3 mg/dL 08/19/2017 7:34 [facility] BUN - [facility] 17 10 - 26 mg/dL 08/19/2017 7:34 [facility] CALCIUM - [facility] 8.3(L) 8.5 - 10.5 mg/dL 08/19/2017 7:34 [facility] Chloride 109 96 - 110 mmol/L 08/19/2017 7:34 [facility] CO2 Total 22 22 - 32 mEq/L 08/19/2017 7:34 [facility] CREATININE 0.90 0.52 - 1.04 mg/dL 08/19/2017 7:34 [facility] eGFR >60 08/19/2017 7:34 [facility] Comment: Chronic renal impairment is defined as GFR <60 Multiply result by 1.210 for patients. eGFR calculated using the IDMS-traceable MDRD Study Equation. ??(effective 01/17/2014) Anion Gap 7 0 - 18 08/19/2017 7:34 [facility] GLUCOSE - [facility] 130(H) 70 - 100 mg/dL 08/19/2017 7:34 [facility] Potassium 4.4 3.5 - 5.0 mEq/L 08/19/2017 7:34 [facility] Sodium 138 136 - 145 mEq/L 08/19/2017 7:34 [facility] TOTAL PROTEIN - [facility] 5.1(L) 6.2 - 8.2 gm/dL 08/19/2017 7:34 [facility] SGOT/AST - [facility] 25 14 - 36 U/L 08/19/2017 7:34 [facility] SGPT/ALT - [facility] 26 9 - 52 U/L 8 7:34 [facility] 08/19/2017 6:00 EDT 08/19/2017 6:52 EDT us Thi Asencio DO CHEMISTRY & BLOOD GAS ORDER BHARAT Final Result [facility] * (ABNORMAL) COMPLETE BLOOD COUNT AND DIFFERENTIAL (08/19/2017 6:00 EDT) ABSOLUTE NEUTROPHIL COUN - [facility] 7.39(H) 1.7 - 7.0 10e3/ul 08/19/2017 7:40 [facility] BASOPHILS - [facility] 0.16 0.0 - 0.3 10e3/uL 08/19/2017 7:40 [facility] BANDS - [facility] 18(H) 0 - 3 % 08/19/2017 7:40 [facility] BASOPHIL - [facility] 2 0 - 2 % 8 7:40 [facility] CRENATED CELLS - [facility] RARE 08/19/2017 7:40 [facility] EOS # - [facility] 0.08 0.05 - 0.5 10e3/uL 08/19/2017 7:40 [facility] EOSINOPHILS - [facility] 1 0 - 5 % 08/19/2017 7:40 [facility] HEMATOCRIT - [facility] 32.1(L) 34.0 - 47.0 % 08/19/2017 7:01 [facility] HEMOGLOBIN - [facility] 9.2(L) 11.2 - 15.7 g/dl 08/19/2017 7:01 [facility] LYMPH # - [facility] 0.50(L) 0.9 - 2.9 10e3/uL 08/19/2017 7:40 [facility] LYMPHOCYTES - [facility] 6(L) 20 - 40 % 08/19/2017 7:40 [facility] MEAN CORPUSCULAR HGB - [facility] 20.8(L) 26 - 34 pg 08/19/2017 7:01 [facility] MEAN CORPUSCULAR HGB CONC - [facility] 28.7(L) 31 - 36 g/dL 08/19/2017 7:01 [facility] MEAN CELL VOLUME - [facility] 72.5(L) 77 - 100 fl 08/19/2017 7:01 [facility] MICROCYTES - [facility] 2+ 08/19/2017 7:40 [facility] MONO # - [facility] 0.25(L) 0.3 - 0.9 10e3/uL 08/19/2017 7:40 [facility] MONOCYTE - [facility] 3 0 - 12 % 8 7:40 [facility] PLATELET COUNT 166 150 - 400 10e3/ul 08/19/2017 7:01 [facility] NEUTROPHILS - [facility] 70 40 - 80 % 08/19/2017 7:40 [facility] RED BLOOD COUNT - [facility] 4.43 3.8 - 5.2 10e6/ul 08/19/2017 7:01 [facility] RED CELL DISTRI WIDTH - [facility] 18.2(H) 11.8 - 15.6 % 08/19/2017 7:01 EDT [facility] WHITE BLOOD COUNT - [facility] 8.4 3.5 - 10.5 10e3/ul 08/19/2017 7:01 EDT [facility] 08/19/2017 6:00 EDT 08/19/2017 6:52 EDT us Thi Asencio DO PACKAGES & DNA PROBE ORDERA BLES Final Result [facility] documented in this encounter Visit Diagnoses Not on filedocumented in this encounter Care Teams Quality Coordinator Relationship Specialty Start Date End Date Elizabeth Dsouza MD [address] [place] [address] PCP - General 02/13/12 documented as of this encounter
--- OUTSIDE RECORDS SUMMARY | 2024-03-05 17:43 | XMS_ITS | Encounter Summary ---
Author Organization [facility] Address [address] [place] [address] Care Team Providers Care Community Relations Officer Name Role Phone Unknown, Provider MD Primary Care Provider Unava ilable Encounter Details Date Type Department Care Team (Late st Contact Info) Description 02/11/2012 Results Only [facility] Laboratory Services - [facility] ([facility]) [address] [place] [address] Elizabeth Dong MD [address] [place] [address] Social History Tobacco Use Types [...] Contact Info) Description 04/06/2024 9:30 EST Appointment [facility] Endoscopy [address] [place] [address] Angélica Hernandez MD [address] [phone] 05/19/2024 13:30 EST Appointment [facility] Endoscopy [address] [place] [address] Angélica Hernandez MD [address] [phone] 05/28/2024 14:15 EDT Nurse Only [facility] Cancer [facility] [address] [place] [address] 05/28/2024 14:30 EDT Office Visit [facility] Cancer [facility] [address] [place] [address] Kaiser Miller MD 111 [facility] 2 [place] [address] documented as of this encounter [...] ? VIKRAM CLIFFORD ? Accession #: ? [id number] ? : ? 1955 (Age: 56) ??F [...] There is no evidence of malignancy. ??(Dr. Aiken)/[facility] Microscopic Description: ? The stratum corneum is thickened by orthohyperkeratosis with foci of parakeratosis and scale crust. ??The epidermis shows marked irregular hyperplasia with elongate and thickened rete ridges. ??The keratinocytes show mild reactive changes with an accentuated granular layer. ??The dermal papillae are widened by thick bundles of collagen oriented in a vertical array. There is mild chronic inflammation. ??(Dr. Aiken)/[facility] Document reviewed and electronically signed by: ISAAC AIKEN MD Report ??Date: 02/14/2012 16:35 By the signature above, the attending physician certifies that he/she has personally conducted a gross and/or microscopic examination of the described specimens and rendered or confirmed the above diagnosis. Specimen(s) Received: ? Excisional biopsy R forearm Clinical History: ? Non-healing lesion R forearm Gross Description: ? Received in formalin labelled , Vikram and R forearm is an unoriented elliptical [...] and (A3) tips, reverse en face. (Louis Meraz)/[facility] End of Report [facility] 02/11/2012 02/12/2012 19: 42 EST us Elizabeth Dong MD PATHOLOGY ORDERABLES Final Res ult [facility] [address] [place] [address] documented in this encounter Visit Diagnoses Not on filedocumented in this encounter Care Teams Community Relations Officer Relationship Specialty Start Date End Date Unknown, Provider, PCP - General 02/12/12 02/12/12 documented as of this encounter
--- OUTSIDE RECORDS SUMMARY | 2024-03-05 17:43 | XMS_ITS | Encounter Summary ---
Author Organization [facility] Address [address] [place] [address] Care Team Providers Care Telescope Maintenance Name Role Phone Elizabeth Dsouza MD Primary Care Provider [phone] Reason for Visit * Reason Onset Date Comments Appointment Related 08/27/2017 Encounter Details Date Type Department Care Team (Late st Contact Info) Description 08/27/[address] [facility] General Surgery - [address] [address] Elizabeth Pendleton MD [address] [place] [phone] Appointment Related Social History Tobacco Use [...] Contact Info) Description 04/06/2024 9:30 EST Appointment [facility] Endoscopy [address] [place] [address] Angélica Hernandez MD [address] [phone] 05/19/2024 13:30 EST Appointment [facility] Endoscopy [address] [place], [place] [phone] Angélica Hernandez MD [address] [address] 05/28/2024 14:15 EDT Nurse Only [facility] [address] [phone] 05/28/2024 14:30 EDT Office Visit [facility] [address] [address] Kaiser Miller MD 111 [facility] 2 [place] [address] documented as of this encounter Visit Diagnoses Not on filedocumented in this encounter Care Teams Telescope Maintenance Relationship Specialty Start Date End Date Elizabeth Dsouza MD 4 [place] [phone] PCP - General 02/13/12 documented as of this encounter
--- OUTSIDE RECORDS SUMMARY | 2024-03-05 17:43 | XMS_ITS | Encounter Summary ---
Author Organization [facility] Address [address] [place] [address] Care Team Providers Care Reject Opener Name Role Phone Elizabeth Dsouza MD Primary Care Provider [phone] Encounter Details Date Type Department Care Team (Late st Contact Info) Description 08/20/2017 Historical Results Only [facility] - Main [place] [address] [phone] Les Galvan MD [address] [place] [address] Social History Tobacco Use Types [...] Contact Info) Description 04/06/2024 9:30 EST Appointment [facility] Endoscopy [address] [place] [address] Angélica Hernandez MD [address] [address] 05/19/2024 13:30 EST Appointment [facility] Endoscopy [address] [place] [address] Angélica Hernandez MD [address] [address] 05/28/2024 14:15 EDT Nurse Only [facility] [place] [address] [place], [place] [address] 05/28/2024 14:30 EDT Office Visit [facility] [place] [address] [place] [address] Kaiser Miller MD 111 [facility] [address] [place] [address] documented as of [...] 1.7 - 2.8 mg/dL 08/20/2017 7:34 EDT [facility] 08/20/2017 6:30 EDT 08/20/2017 6:55 EDT Narrative [facility] - 08/20/2017 14:29 EDT AOT: 08/20/17 1348: CRP us Les An MD CHEMISTRY & BLOOD G ORDERABLES Final Result [facility] * (ABNORMAL) C REACTIVE PROTEIN (08/20/2017 6:30 EDT) [facility] C-Reactive Protein 372.6(H) <10.0 mg/L 08/20/2017 14:29 [facility] 08/20/2017 6:30 EDT 08/20/2017 6:55 EDT Narrative [facility] - 08/20/2017 14:29 EDT AOT: 08/20/17 1348: CRP us Les An MD CHEMISTRY & BLOOD G ORDERABLES Final Result [facility] * (ABNORMAL) BASIC METABOLIC PANEL (BMP) (08/20/2017 6:30 EDT) [facility] BUN [facility] 23 10 - 26 mg/dL 08/20/2017 7:34 [facility] CALCIUM - [facility] 8.2(L) 8.5 - 10.5 mg/dL 08/20/2017 7:34 [facility] Chloride 110 96 - 110 mmol/L 08/20/2017 7:34 [facility] CO2 Total 20(L) 22 - 32 mEq/L 08/20/2017 7:34 [facility] CREATININE 0.92 0.52 - 1.04 mg/dL 08/20/2017 7:34 [facility] eGFR >60 08/20/2017 7:34 [facility] Comment: Chronic renal impairment is defined as GFR <60 Multiply result by 1.210 for patients. eGFR calculated using the IDMS-traceable MDRD Study Equation. ??(effective 01/17/2014) Anion Gap 8 0 - 18 08/20/2017 7:34 [facility] GLUCOSE - [facility] 119(H) 70 - 100 mg/dL 08/20/2017 7:34 [facility] Potassium 3.7 3.5 - 5.0 mEq/L 08/20/2017 7:34 [facility] Sodium 138 136 - 145 mEq/L 08/20/2017 7:34 [facility] 08/20/2017 6:30 EDT 08/20/2017 6:55 EDT Narrative [facility] - 08/20/2017 14:29 EDT AOT: 08/20/17 1348: CRP us Les An MD CHEMISTRY & BLOOD G ORDERABLES Final Result [facility] * (ABNORMAL) COMPLETE BLOOD COUNT AND DIFFERENTIAL (08/20/2017 6:30 EDT) ABSOLUTE NEUTROPHIL COUN - [facility] 5.43 1.7 - 7.0 10e3/ul 08/20/2017 7:54 [facility] BANDS - [facility] 15(H) 0 - 3 % 08/20/2017 7:54 [facility] ELLIPTOCYTES - [facility] RARE 08/20/2017 7:54 [facility] EOS # - [facility] 0.05 0.05 - 0.5 10e3/uL 08/20/2017 7:54 [facility] EOSINOPHILS - [facility] 1 0 - 5 % 2017 7:54 [facility] HEMATOCRIT - [facility] 31.2(L) 34.0 - 47.0 % 08/20/2017 7:04 [facility] HEMOGLOBIN - [facility] 9.0(L) 11.2 - 15.7 g/dl 08/20/2017 7:04 [facility] HYPOCHROMASIA - [facility] 1+ 08/20/2017 7:54 [facility] LYMPH # - [facility] 0.35(L) 0.9 - 2.9 10e3/uL 08/20/2017 7:54 [facility] LYMPHOCYTES - [facility] 6(L) 20 - 40 % 2017 7:54 [facility] MEAN CORPUSCULAR HGB - [facility] 20.6(L) 26 - 34 pg 08/20/2017 7:04 [facility] MEAN CORPUSCULAR HGB CONC - [facility] 28.8(L) 31 - 36 g/dL 08/20/2017 7:04 [facility] MEAN CELL VOLUME - [facility] 71.6(L) 77 - 100 fl 08/20/2017 7:04 [facility] METAMYELOCYTE - [facility] 1 0 - 1 % 08/20/2017 7:54 [facility] PLATELET COUNT 145(L) 150 - 400 10e3/ul 08/20/2017 7:04 [facility] NEUTROPHILS - [facility] 77 40 - 80 % 2017 7:54 [facility] RED BLOOD COUNT - [facility] 4.36 3.8 - 5.2 10e6/ul 08/20/2017 7:04 [facility] RED CELL DISTRI WIDTH - [facility] 18.4(H) 11.8 - 15.6 % 08/20/2017 7:04 [facility] WHITE BLOOD COUNT - [facility] 5.9 3.5 - 10.5 10e3/ul 08/20/2017 7:04 [facility] 08/20/2017 6:30 EDT 08/20/2017 6:55 EDT Les An MD PACKAGES & DNA PROB E ORDERABLES Final Result [facility] documented in this encounter Visit Diagnoses Not on filedocumented in this encounter Care Teams Reject Opener Relationship Specialty Start Date End Date Elizabeth Dsouza MD [address] [place] [address] PCP - General 02/13/12 documented as of this encounter
--- OUTSIDE RECORDS SUMMARY | 2024-03-05 17:43 | XMS_ITS | Encounter Summary ---
Author Organization [facility] Address [address] [place] [address] Care Team Providers Care Supervisor Webbing Name Role Phone Elizabeth Dsouza MD Primary Care Provider [phone] Encounter Details Date Type Department Care Team (Late st Contact Info) Description 08/23/2017 Historical Results Only [facility] - Main [place] [address] [place], [place] [phone] Ashu Arce MD [address] [place] [address] Social History Tobacco Use Types [...] Contact Info) Description 04/06/2024 9:30 EST Appointment [facility] Endoscopy [address] [place] [address] Angélica Hernandez MD [address] [address] 05/19/2024 13:30 EST Appointment [facility] Endoscopy [address] [place] [address] Angélica Hernandez MD [address] [address] 05/28/2024 14:15 EDT Nurse Only [facility] [place] [address] [place], [place] [address] 05/28/2024 14:30 EDT Office Visit [facility] [place] [address] [place], [place] [address] Kaiser Miller MD 111 [facility] [address] [place] [address] documented as of this encounter Procedures Procedure Name Priority Date/Time Associated Diagnosis Comments COMPLETE BLOOD COUNT WITH DIFFERENTIAL (AUTO) Routine 08/23/2017 6:15 EDT documented in this encounter Results * (ABNORMAL) COMPLETE BLOOD COUNT WITH DIFFERENTIAL (AUTO) (08/23/2017 6:15 EDT) ABSOLUTE NEUTROPHIL COUN - [facility] 5.91 1.7 - 7.0 10e3/ul 08/23/2017 7:32 [facility] BASO # - [facility] 0.03 0.0 - 0.3 10e3/uL 08/23/2017 7:32 [facility] BASO % - [facility] 0 0 - 2 % 08/23/2017 7:32 [facility] EOS # - [facility] 0.13 0.05 - 0.5 10e3/uL 08/23/2017 7:32 [facility] EOS % - [facility] 2 0 - 5 % 08/23/2017 7:32 [facility] GRAN % - [facility] 75 40 - 80 % 08/23/2017 7:32 [facility] HEMATOCRIT - [facility] 32.0(L) 34.0 - 47.0 % 08/23/2017 7:32 [facility] HEMOGLOBIN - [facility] 9.2(L) 11.2 - 15.7 g/dl 08/23/2017 7:32 [facility] IG# - [facility] 0.05 0 - 0.07 10e3/uL 08/23/2017 7:32 [facility] IG% - [facility] 0.6 0 - 0.9 % 08/23/2017 7:32 [facility] LYMPH # - [facility] 0.98 0.9 - 2.9 10e3/uL 08/23/2017 7:32 [facility] LYMPH% - [facility] 13(L) 20 - 40 % 08/23/2017 7:32 [facility] MEAN CORPUSCULAR HGB - [facility] 20.5(L) 26 - 34 pg 08/23/2017 7:32 [facility] MEAN CORPUSCULAR HGB CONC - [facility] 28.8(L) 31 - 36 g/dL 08/23/2017 7:32 [facility] MEAN CELL VOLUME - [facility] 71.3(L) 77 - 100 fl 08/23/2017 7:32 [facility] MONO # - [facility] 0.77 0.3 - 0.9 10e3/uL 08/23/2017 7:32 [facility] MONO% - [facility] 10 0 - 12 % 08/23/2017 7:32 [facility] PLATELET COUNT 189 150 - 400 10e3/ul 08/23/2017 7:32 [facility] RED BLOOD COUNT - [facility] 4.49 3.8 - 5.2 10e6/ul 08/23/2017 7:32 [facility] RED CELL DISTRI WIDTH - [facility] 18.5(H) 11.8 - 15.6 % 08/23/2017 7:32 [facility] WHITE BLOOD COUNT - [facility] 7.9 3.5 - 10.5 10e3/ul 08/23/2017 7:32 [facility] 08/23/2017 6:15 EDT 08/23/2017 6:55 EDT us Ashu Arce MD HEMATOLOGY & PF4 ORDERABLE S Final Result [facility] documented in this encounter Visit Diagnoses Not on filedocumented in this encounter Care Teams Supervisor Webbing Relationship Specialty Start Date End Date Elizabeth Dsouza MD [address] [place] [phone] PCP - General 02/13/12 documented as of this encounter
--- OUTSIDE RECORDS SUMMARY | 2024-03-05 17:43 | XMS_ITS ---
Author Organization Unknown Address [address] [place] [phone] Phone Care Team Providers Care Otr Van Cdl Truck Driver Name Role Phone AMINAH Lai DIAMOND DRILLER HELPER Attending Unavailable LETITIA RANDALL Primary Unavailable Immunization [...] em Smoking History Current every day smoker [id number] SNOMED CT Sex Female Assessment You had [...] Date Status Code Code System NIDDM active 18422683 SNOMED-CT CAD active 27663511 SNOMED-CT MYOCARDIAL INFARCT active 02768924 S NOMED-CT GERD active 141601895 SNOMED-CT DEPRESSION active 92502262 SNOMED-CT HIGH CHOLESTEROL 05/01/2023 resolved 74166222 SN OMED-CT STENTED ARTERY 05/01/2023 resolved 937218050 SNOM ED-CT COPD 05/01/2023 resolved 41754474 SNOMED-CT Allergies and Adverse Reactions Allergy Substance Reaction Severity Start Date Concern Status Code Code Syste m MORPHINE Vomiting (SNOMED-CT: 678372155) Moderate Active 7052 RxNorm LATEX Active 4247770 RxNorm BAND-AID BRAND ADHESIVE BANDAGES BREAK OUT (SNOMED-CT: null) Moderate Active 2068728 RxNorm Plan of Treatment MRI L SPINE [...]
--- OUTSIDE RECORDS SUMMARY | 2024-03-05 17:44 | XMS_ITS ---
Author Organization Unknown Address [address] [place] [phone] Phone Care Team Providers Care Parts Facilitator Name Role Phone AMINAH Lai COMPUTER SYSTEMS ARCHITECT Attending Unavailable LETITIA RANDALL Primary Unavailable [...] em Smoking History Current every day smoker [id number] SNOMED CT Sex Female Assessment You had [...] Date Status Code Code System NIDDM active 53595769 SNOMED-CT CAD active 83317558 SNOMED-CT MYOCARDIAL INFARCT active 18879385 S NOMED-CT GERD active 540857889 SNOMED-CT DEPRESSION active 63557078 SNOMED-CT HIGH CHOLESTEROL 05/01/2023 resolved 65240180 SN OMED-CT STENTED ARTERY 05/01/2023 resolved 632532733 SNOM ED-CT COPD 05/01/2023 resolved 10053434 SNOMED-CT Allergies and Adverse Reactions Allergy Substance Reaction Severity Start Date Concern Status Code Code Syste m MORPHINE Vomiting (SNOMED-CT: 117619810) Moderate Active 7052 RxNorm LATEX Active 9681465 RxNorm BAND-AID BRAND ADHESIVE BANDAGES BREAK OUT (SNOMED-CT: null) Moderate Active 0172994 RxNorm Plan of Treatment MRI L SPINE [...]
--- OUTSIDE RECORDS SUMMARY | 2024-03-05 17:44 | XMS_ITS ---
Author Organization Unknown Address [address] [place] [phone] Phone Care Team Providers Care Flying I Instructor Name Role Phone AMINAH Lai PERSONAL COACH Attending Unavailable LETITIA RANDALL Primary Unavailable [...] em Smoking History Current every day smoker [id number] SNOMED CT Sex Female Assessment You had [...] Date Status Code Code System NIDDM active 35890142 SNOMED-CT CAD active 69770271 SNOMED-CT MYOCARDIAL INFARCT active 28909594 S NOMED-CT GERD active 442980712 SNOMED-CT DEPRESSION active 74291914 SNOMED-CT HIGH CHOLESTEROL 05/01/2023 resolved 90385339 SN OMED-CT STENTED ARTERY 05/01/2023 resolved 464931753 SNOM ED-CT COPD 05/01/2023 resolved 03428028 SNOMED-CT Allergies and Adverse Reactions Allergy Substance Reaction Severity Start Date Concern Status Code Code Syste m MORPHINE Vomiting (SNOMED-CT: 383275803) Moderate Active 7052 RxNorm LATEX Active 6102585 RxNorm BAND-AID BRAND ADHESIVE BANDAGES BREAK OUT (SNOMED-CT: null) Moderate Active 1116606 RxNorm Plan of Treatment MRI L SPINE [...]
--- OUTSIDE RECORDS SUMMARY | 2024-03-05 17:44 | XMS_ITS ---
Author Organization Unknown Address [address] [place] [phone] Phone Care Team Providers Care Associate Genetics Professor Name Role Phone APOORVA Blanton MD [...] DIFFERENTIAL - Collec t Date/Time: 11/14/2020 11:20 [facility] ID: [id number] [address] [place] [address], [address] LOINC: 65841-6 Test Value Unit Reference Range Code Code System Flag WBC 7.55 th/cmm L=5.00 H=10.00 6690-2 LOINC NEUT % 74.1 % L=40.0 H=80.0 LYMPH % 14.4 % L=10.0 H=50.0 MONO % 8.5 % L=2.0 H=12.0 63147-4 LOINC EOS % 1.6 % L=0.0 H=8.0 BASO % 0.5 % L=0.0 H=3.0 IG % 0.9 % L=0.0 H=1.1 2514-8 LOINC NRBC % 0.0 % L=0.0 H=0.0 87535-6 LOINC NEUT abs count 5.6 th/cmm L=1.6 H=8.4 751-8 LOINC LYMPH abs count 1.1 th/cmm L=1.5 H=4.0 731-0 LOINC L MONO abs count 0.6 th/cmm L=0.2 H=1.0 742-7 LOINC EOS abs count 0.1 th/cmm L=0.0 H=0.5 711-2 LOINC BASO abs count 0.0 th/cmm L=0.0 H=0.2 704-7 LOINC IG abs count 0.1 th/cmm L=0.0 H=0.1 76137-4 LOINC NRBC abs count 0.0 mil/cmm L=0.0 H=0.0 67310-7 LOINC RBC 4.15 mil/cmm L=3.90 H=5.40 789-8 [...] em Smoking History Current every day smoker 244880742 SNOMED CT Sex Female Assessment You had [...] Date Status Code Code System NIDDM active 38481211 SNOMED-CT CAD active 70986047 SNOMED-CT MYOCARDIAL INFARCT active 53519216 S NOMED-CT GERD active 258972989 SNOMED-CT DEPRESSION active 48253673 SNOMED-CT HIGH CHOLESTEROL 05/01/2023 resolved 31403803 SN OMED-CT STENTED ARTERY 05/01/2023 resolved 890073387 SNOM ED-CT COPD 05/01/2023 resolved 77382263 SNOMED-CT Allergies and Adverse Reactions Allergy Substance Reaction Severity Start Date Concern Status Code Code Syste m MORPHINE Vomiting (SNOMED-CT: 595145961) Moderate Active 7052 RxNorm LATEX Active 9424103 RxNorm BAND-AID BRAND ADHESIVE BANDAGES BREAK OUT (SNOMED-CT: null) Moderate Active 5435043 RxNorm Plan of Treatment MRI L SPINE [...]
[2024-03-05 21:17] LABS: HCT 29.3 % (36.0-46.0); HGB 8.4 g/dL (11.2-15.7); MCH 23.9 pg (27.0-33.0); MCHC 28.7 % (32.0-36.0); MCV 83 fL (80-95); MPV 10.4 fL (8.0-11.0); Platelet Count 232 10^3/uL (130-400); RBC 3.52 10^6/uL (3.93-5.22); RDW 21.2 % (11.7-14.6); RDW-SD 64.4 fL; WBC 4.61 10^3/uL (4.4-10.8)
[2024-03-05 21:39] LABS: Ferritin 9 ng/mL (8-252); TSH (W/Ref FT4) 2.08 uIU/mL (0.36-3.74)
== END 2024-03-05 17:33 | disposition home or self-care (01) ==
LOC: NCHCN 17:32
PROVIDERS: PCP Family Medicine; Visit Provider Family Medicine
DX: D50.9 Iron deficiency anemia, unspecified (principal); R63.4 Abnormal weight loss
CPT/HCPCS: 85027; 82728; 84443

== ENCOUNTER 2024-03-25 15:07 | Outpatient (REF) | payer MEDICARE, SELFPAY ==
--- OUTSIDE RECORDS SUMMARY | 2024-03-25 15:12 | XMS_ITS ---
Author Organization Unknown Address [address] [place] [phone] Phone Care Team Providers Care Leather Coater Name Role Phone MONO Lai Attending Unavailable LETITIA Gaspar Primary Unavailable Social History Type Status Start Date End Date Code Code Syst em Smoking History Current every day smoker 467290679 SNOMED CT Sex Female Assessment You had [...] Date Status Code Code System NIDDM active 93589572 SNOMED-CT CAD active 87036129 SNOMED-CT MYOCARDIAL INFARCT active 42194959 S NOMED-CT GERD active 869469287 SNOMED-CT DEPRESSION active 77278340 SNOMED-CT HIGH CHOLESTEROL 05/01/2023 resolved 45290756 SN OMED-CT STENTED ARTERY 05/01/2023 resolved 920230691 SNOM ED-CT COPD 05/01/2023 resolved 42488496 SNOMED-CT Allergies and Adverse Reactions Allergy Substance Reaction Severity Start Date Concern Status Code Code Syste m MORPHINE Vomiting (SNOMED-CT: 458323440) Moderate Active 7052 RxNorm LATEX Active 7887035 RxNorm BAND-AID BRAND ADHESIVE BANDAGES BREAK OUT (SNOMED-CT: null) Moderate Active 9727984 RxNorm Plan of Treatment MRI L SPINE [...]
--- OUTSIDE RECORDS SUMMARY | 2024-03-25 15:14 | XMS_ITS ---
Author Organization Unknown Address [address] [place] [phone] Phone Care Team Providers Care Substance Abuse Specialist Name Role Phone RIKKI WRIGHT Attending Unavailable LETITIA Gaspar Primary Unavailable Results BUN/CREATININE RATIO FOR RAD IOLOGY* - Collect Date/Time: 12/27/2021 11:46 [facility] ID: [id number] [address] [place], [place], [address] LOINC: 3097-3 Test Value Unit Reference Range Code Code System Flag BUN 13 mg/dL L=6 H=25 3094-0 LOINC CREATININE 1.59 mg/dL L=0.51 H=0.95 2160-0 LOINC H BUN/CREATININE RATIO 8.2 3097-3 LOINC AGE 66 years eGFR (non-Afr.Amer) 33 mL/min 34826-7 LOINC eGFR (Afr-Lao) 39 mL/min 84998-7 LOINC Social History Type Status Start Date End Date Code Code Syst em Smoking History Current every day smoker 592340133 SNOMED CT Sex Female Assessment You had [...] Date Status Code Code System NIDDM active 07710596 SNOMED-CT CAD active 76081080 SNOMED-CT MYOCARDIAL INFARCT active 15278082 S NOMED-CT GERD active 899588097 SNOMED-CT DEPRESSION active 15861069 SNOMED-CT HIGH CHOLESTEROL 05/01/2023 resolved 34275162 SN OMED-CT STENTED ARTERY 05/01/2023 resolved 132287361 SNOM ED-CT COPD 05/01/2023 resolved 70983947 SNOMED-CT Allergies and Adverse Reactions Allergy Substance Reaction Severity Start Date Concern Status Code Code Syste m MORPHINE Vomiting (SNOMED-CT: 885389487) Moderate Active 7052 RxNorm LATEX Active 7069427 RxNorm BAND-AID BRAND ADHESIVE BANDAGES BREAK OUT (SNOMED-CT: null) Moderate Active 5386042 RxNorm Plan of Treatment MRI L SPINE [...] Code Sys tem Peripheral vascular disease 12/27/2021 468796342 SNOMED-CT Personal Care Team Section Performer Name Performer Role Active Date Inactive Da te
--- OUTSIDE RECORDS SUMMARY | 2024-03-25 15:15 | XMS_ITS ---
Author Organization Unknown Address [address] [place] [address] [phone] Phone Care Team Providers Care Sr Technical Sales Consultant Name Role Phone RIKKI WRIGHT Attending Unavailable LETITIA Gaspar Primary Unavailable Social History Type Status Start Date End Date Code Code Syst em Smoking History Current every day smoker 299835472 SNOMED CT Sex Female Assessment You had [...] Date Status Code Code System NIDDM active 53130086 SNOMED-CT CAD active 56602912 SNOMED-CT MYOCARDIAL INFARCT active 04046649 S NOMED-CT GERD active 305531725 SNOMED-CT DEPRESSION active 81443860 SNOMED-CT HIGH CHOLESTEROL 05/01/2023 resolved 46129475 SN OMED-CT STENTED ARTERY 05/01/2023 resolved 435590932 SNOM ED-CT COPD 05/01/2023 resolved 89724169 SNOMED-CT Allergies and Adverse Reactions Allergy Substance Reaction Severity Start Date Concern Status Code Code Syste m MORPHINE Vomiting (SNOMED-CT: 106757697) Moderate Active 7052 RxNorm LATEX Active 4671592 RxNorm BAND-AID BRAND ADHESIVE BANDAGES BREAK OUT (SNOMED-CT: null) Moderate Active 4758149 RxNorm Plan of Treatment MRI L SPINE [...]
--- OUTSIDE RECORDS SUMMARY | 2024-03-25 15:16 | XMS_ITS ---
Author Organization Unknown Address [address] [place] [address] [phone] Phone Care Team Providers Care Edge Polisher Name Role Phone LETITIA Gaspar Attending Unavailable Social History Type Status Start Date End Date Code Code Syst em Smoking History Current every day smoker 964129005 SNOMED CT Sex Female Assessment You had [...] Date Status Code Code System NIDDM active 47046799 SNOMED-CT CAD active 36349434 SNOMED-CT MYOCARDIAL INFARCT active 76407331 S NOMED-CT GERD active 864572970 SNOMED-CT DEPRESSION active 61946754 SNOMED-CT HIGH CHOLESTEROL 05/01/2023 resolved 33047665 SN OMED-CT STENTED ARTERY 05/01/2023 resolved 913079522 SNOM ED-CT COPD 05/01/2023 resolved 17667897 SNOMED-CT Allergies and Adverse Reactions Allergy Substance Reaction Severity Start Date Concern Status Code Code Syste m MORPHINE Vomiting (SNOMED-CT: 486279598) Moderate Active 7052 RxNorm LATEX Active 6220896 RxNorm BAND-AID BRAND ADHESIVE BANDAGES BREAK OUT (SNOMED-CT: null) Moderate Active 6699719 RxNorm Plan of Treatment MRI L SPINE [...] Code Sys tem Canceled operative procedure 04/16/2022 54429586 SNOMED-CT Personal Care Team Section Performer Name Performer Role Active Date Inactive Da te
--- OUTSIDE RECORDS SUMMARY | 2024-03-25 15:16 | XMS_ITS ---
Author Organization Unknown Address [address] [place] [address] [phone] Phone Care Team Providers Care Motor Vehicles Inspector Name Role Phone LETITIA Gaspar Attending Unavailable Results BD DXA BONE DENSITY HIP AND SPINE - Completed: 05/22/2022 13:43 [facility]: [place], [place] [address] PACS CLAIMS MANAGER REPORT Patient Name: VIKRAM CLIFFORD MRN: Sex: : Age: [id number] F 1955 66 Account: Accession: Admit: StayType: [id number] 05/22/2022 O/P Ordered: Order ID: Submitted: Ordering Provider: 05/22/2022 12:59 [id number] NLS TONIA DONG Completed: Technologist: Resulted: 05/22/2022 [...] 05/22/2022 13:22 LOINC: [facility] [place] [address] PACS CLAIMS MANAGER REPORT Patient Name: VIKRAM CLIFFORD MRN: Sex: : Age: [id number] F 1955 66 Account: Accession: Admit: StayType: [id number] 05/22/2022 O/P Ordered: Order ID: Submitted: Ordering Provider: 05/22/2022 12:59 [id number] TONIA ALBERTS Completed: Technologist: Resulted: 05/22/2022 13:22 [...] em Smoking History Current every day smoker 054931185 SNOMED CT Sex Female Assessment You had [...] Date Status Code Code System NIDDM active 20333403 SNOMED-CT CAD active 82014871 SNOMED-CT MYOCARDIAL INFARCT active 25037857 S NOMED-CT GERD active 374258812 SNOMED-CT DEPRESSION active 19951992 SNOMED-CT HIGH CHOLESTEROL 05/01/2023 resolved 45241928 SN OMED-CT STENTED ARTERY 05/01/2023 resolved 066119586 SNOM ED-CT COPD 05/01/2023 resolved 65816125 SNOMED-CT Allergies and Adverse Reactions Allergy Substance Reaction Severity Start Date Concern Status Code Code Syste m MORPHINE Vomiting (SNOMED-CT: 037972267) Moderate Active 7052 RxNorm LATEX Active 4394217 RxNorm BAND-AID BRAND ADHESIVE BANDAGES BREAK OUT (SNOMED-CT: null) Moderate Active 2958355 RxNorm Plan of Treatment MRI L SPINE [...]
--- OUTSIDE RECORDS SUMMARY | 2024-03-25 15:18 | XMS_ITS ---
Author Organization Unknown Address [address] [place] [address] [phone] Phone Care Team Providers Care Ichthyology Teacher Name Role Phone LETITIA Gaspar Attending Unavailable Results MR LS SPINE WO CONTRAST - Co mpleted: 03/12/2023 08:39 LOINC: [facility] [place], [place] [address] PACS CARTON FORMING MACHINE ADJUSTER REPORT Patient Name: VIKRAM CLIFFORD MRN: Sex: : Age: [id number] F 1955 67 Account: Accession: Admit: StayType: [id number] 03/12/2023 O/P Ordered: Order ID: Submitted: Ordering Provider: 03/12/2023 07:54 [id number] NLS TONIA DONG Completed: Technologist: Resulted: 03/12/2023 [...] em Smoking History Current every day smoker [id number] Myband[facility] CT Sex Female Assessment You had the following problems:NIDDMCADMYOCARDIAL INFARCTGERDDEPRESSION Hospital Discharge Instructions Should you have any questions prior to discharge, please contact a member of your healthcare team. If you have left the hospital and have any questions, please contact your primary care physician. Reason For Referral No Data Found Problems Problem Start Date Resolved Date Status Code Code System NIDDM active 49389521 SNOMED-CT CAD active 39852969 SNOMED-CT MYOCARDIAL INFARCT active 06331845 S NOMED-CT GERD active 490876853 SNOMED-CT DEPRESSION active 92896644 SNOMED-CT HIGH CHOLESTEROL 05/01/2023 resolved 69068444 SN OMED-CT STENTED ARTERY 05/01/2023 resolved 546464096 SNOM ED-CT COPD 05/01/2023 resolved 73674073 SNOMED-CT Allergies and Adverse Reactions Allergy Substance Reaction Severity Start Date Concern Status Code Code Syste m MORPHINE Vomiting (SNOMED-CT: 013050681) Moderate Active 7052 RxNorm LATEX Active 3800187 RxNorm BAND-AID BRAND ADHESIVE BANDAGES BREAK OUT (SNOMED-CT: null) Moderate Active 7369237 RxNorm Plan of Treatment MRI L SPINE [...] tem Degeneration of lumbar intervertebral disc 03/12/2023 68248613 SNOMED-CT Personal Care Team Section Performer Name Performer Role Active Date Inactive Da beto
--- OUTSIDE RECORDS SUMMARY | 2024-03-25 15:18 | XMS_ITS ---
Author Organization Unknown Address [address] [place] [address] [phone] Phone Care Team Providers Care Stock Tracer Name Role Phone LETITIA Gaspar Attending Unavailable Results NM BONE SCAN WHOLE BODY - Co mpleted: 06/06/2022 11:55 LOINC: [facility] [place], [place] [address] PACS IRRIGATION INSTALLATION SPECIALIST REPORT Patient Name: VIKRAM CLIFFORD MRN: Sex: : Age: [id number] F 1955 66 Account: Accession: Admit: StayType: [id number] 06/06/2022 O/P Ordered: Order ID: Submitted: Ordering Provider: 06/06/2022 08:[id number] [facility] TONIA DONG Completed: Technologist: Resulted: 06/06/2022 11:55 [...] em Smoking History Current every day smoker 020626599 SNOMED CT Sex Female Assessment You had [...] Date Status Code Code System NIDDM active 90562679 SNOMED-CT CAD active 50092024 SNOMED-CT MYOCARDIAL INFARCT active 71766311 S NOMED-CT GERD active 168900215 SNOMED-CT DEPRESSION active 57165205 SNOMED-CT HIGH CHOLESTEROL 05/01/2023 resolved 12331517 SN OMED-CT STENTED ARTERY 05/01/2023 resolved 587796048 SNOM ED-CT COPD 05/01/2023 resolved 86141453 SNOMED-CT Allergies and Adverse Reactions Allergy Substance Reaction Severity Start Date Concern Status Code Code Syste m MORPHINE Vomiting (SNOMED-CT: 278644545) Moderate Active 7052 RxNorm LATEX Active 4951496 RxNorm BAND-AID BRAND ADHESIVE BANDAGES BREAK OUT (SNOMED-CT: null) Moderate Active 1373485 RxNorm Plan of Treatment MRI L SPINE [...] Date Code Code Sys tem Osteolysis 06/06/2022 451589306 SNOMED-CT Personal Care Team Section Performer Name Performer Role Active Date Inactive Da te
--- OUTSIDE RECORDS SUMMARY | 2024-03-25 15:19 | XMS_ITS ---
Author Organization Unknown Address [address] [place] [address] [phone] Phone Care Team Providers Care Larder Cook Name Role Phone MONO Lai Attending Unavailable LETITIA Gaspar Primary Unavailable Results BLOOD BANK REPORT OF UNITS A JUANA* - Collect Date/Time: 05/12/2023 14:46 [facility] ID: [id number] [address] [place] [address], [id number] LOINC: Test Value Unit Reference Range Code Code System Flag Component Packed RBCs Leukopoor Blood Group A 883-9 LOINC Rh (D) NEGATIVE 38698-1 LOINC Antibody Screen. PREV. POS Antibody Id. NON SPECIFIC COLD AGGLUTININ TYPE AND CROSS 1 UNIT (INCLU JÚNIOR SCREEN)* - Collect Date/Time: 05/12/2023 13:54 [facility] ID: [id number] [address] [place] [address], [id number] LOINC: Test Value Unit Reference Range Code Code System Flag Blood Group A 883-9 LOINC Rh (D) NEGATIVE 74583-3 LOINC Antibody Screen Neg w/prev Ab 1005-8 LOINC Antibody Id. NON SPECIFIC COLD AGGLUTININ CBC W/ DIFFERENTIAL* - Colle ct Date/Time: 05/12/2023 13:54 [facility] ID: [id number] [address] [place] [address], [id number] LOINC: 54253-7 Test Value Unit Reference Range Code Code System Flag WBC 5.89 th/cmm L=5.00 H=10.00 6690-2 LOINC NEUT % 77.6 % L=40.0 H=80.0 LYMPH % 15.1 % L=10.0 H=50.0 MONO % 5.1 % L=2.0 H=12.0 87549-8 LOINC EOS % 1.4 % L=0.0 H=8.0 BASO % 0.5 % L=0.0 H=3.0 IG % 0.3 % L=0.0 H=1.1 2514-8 LOINC NRBC % 0.0 % L=0.0 H=0.0 28910-6 LOINC NEUT abs count 4.6 th/cmm L=1.6 H=8.4 751-8 LOINC LYMPH abs count 0.9 th/cmm L=1.5 H=4.0 731-0 LOINC L MONO abs count 0.3 th/cmm L=0.2 H=1.0 742-7 LOINC EOS abs count 0.1 th/cmm L=0.0 H=0.5 711-2 LOINC BASO abs count 0.0 th/cmm L=0.0 H=0.2 704-7 LOINC IG abs count 0.0 th/cmm L=0.0 H=0.1 34499-2 LOINC NRBC abs count 0.0 mil/cmm L=0.0 H=0.0 06494-4 LOINC RBC 3.33 mil/cmm L=3.90 H=5.40 789-8 [...] em Smoking History Current every day smoker 231962358 SNOMED CT Sex Female Assessment You had [...] Date Status Code Code System NIDDM active 90844990 SNOMED-CT CAD active 86240309 SNOMED-CT MYOCARDIAL INFARCT active 73093549 S NOMED-CT GERD active 653925602 SNOMED-CT DEPRESSION active 15190547 SNOMED-CT HIGH CHOLESTEROL 05/01/2023 resolved 25387098 SN OMED-CT STENTED ARTERY 05/01/2023 resolved 311932124 SNOM ED-CT COPD 05/01/2023 resolved 26086563 SNOMED-CT Allergies and Adverse Reactions Allergy Substance Reaction Severity Start Date Concern Status Code Code Syste m MORPHINE Vomiting (SNOMED-CT: 918748877) Moderate Active 7052 RxNorm LATEX Active 5667284 RxNorm BAND-AID BRAND ADHESIVE BANDAGES BREAK OUT (SNOMED-CT: null) Moderate Active 0056863 RxNorm Plan of Treatment MRI L SPINE [...] Code Sys tem Iron deficiency anemia 05/12/2023 92127179 SNOME D-CT Personal Care Team Section Performer Name Performer Role Active Date Inactive Da te
--- OUTSIDE RECORDS SUMMARY | 2024-03-25 15:19 | XMS_ITS ---
Author Organization Unknown Address [address] [place] [address] [phone] Phone Care Team Providers Care Digital Account Coordinator Name Role Phone STACIA MCCURDY Registered Nurse Unavailable DARLING AGUILERA Attending Unavailable LETITIA Gaspar Primary Unavailable UNLISTED PROVIDER - REQUESTED Xhandoff Un available Results BLOOD BANK REPORT OF UNITS A JUANA* - Collect Date/Time: 05/01/2023 11:50 [facility] ID: [id number] [address] [place] [address], [id number] LOINC: Test Value Unit Reference Range Code Code System Flag Component Packed RBCs Leukopoor Blood Group A 883-9 LOINC Rh (D) NEGATIVE 43711-3 LOINC Antibody Screen. POSITIVE Antibody Id. NON SPECIFIC COLD AGGLUTININ TYPE AND SCREEN* - Collect D ate/Time: 05/01/2023 11:50 [facility] ID: [id number] [address] [place] [address], [id number] LOINC: Test Value Unit Reference Range Code Code System Flag Blood Group A 883-9 LOINC Rh (D) NEGATIVE 62538-4 LOINC Antibody Screen POSITIVE 1005-8 LOINC Antibody Id. NON SPECIFIC COLD AGGLUTININ CBC W/ DIFFERENTIAL* - Colle ct Date/Time: 05/01/2023 11:50 [facility] ID: [id number] [address] [place] [address], 5661 LOINC: 91656-8 Test Value Unit Reference Range Code Code System Flag WBC 5.28 th/cmm L=5.00 H=10.00 6690-2 LOINC NEUT % 80.4 % L=40.0 H=80.0 H LYMPH % 13.3 % L=10.0 H=50.0 MONO % 4.4 % L=2.0 H=12.0 42956-4 LOINC EOS % 1.3 % L=0.0 H=8.0 BASO % 0.2 % L=0.0 H=3.0 IG % 0.4 % L=0.0 H=1.1 2514-8 LOINC NRBC % 0.0 % L=0.0 H=0.0 22581-8 LOINC NEUT abs count 4.3 th/cmm L=1.6 H=8.4 751-8 LOINC LYMPH abs count 0.7 th/cmm L=1.5 H=4.0 731-0 LOINC L MONO abs count 0.2 th/cmm L=0.2 H=1.0 742-7 LOINC EOS abs count 0.1 th/cmm L=0.0 H=0.5 711-2 LOINC BASO abs count 0.0 th/cmm L=0.0 H=0.2 704-7 LOINC IG abs count 0.0 th/cmm L=0.0 H=0.1 68005-1 LOINC NRBC abs count 0.0 mil/cmm L=0.0 H=0.0 58547-4 LOINC RBC 2.98 mil/cmm L=3.90 H=5.40 789-8 [...] em Smoking History Current every day smoker 369476733 SNOMED CT Sex Female Vital Signs Vital Sign Value Unit Griggs Value Griggs Unit Date/Time Recent/Initial? Code Code System Body Mass Index 29.26 kg/m2 05/01/2023 11:53 Initial 85482 -5 LOINC Systolic Blood Pressure 106 mm[Hg] [...] O2 Saturation 100 % 2023 13:00 Initial 26121 -5 LOINC Pulse 78.0 /min 05/01/2023 13:00 Most Recent 8867- 4 LOINC Pulse 81.0 /min 05/01/2023 11:53 Initial 8867- 4 LOINC Respiration 18 /min 05/01/19 24 13:00 Most Recent 9279- 1 LOINC Respiration 23 /min 05/01/19 24 11:53 Initial 9279- 1 LOINC Temperature 36.2 Maliha 97.2 F 05/01/19 11:53 Initial 8310- 5 LOINC Weight 72.57 kg 160.00 lbs 05/01/2023 11:53 Initial 95764 -7 LOINC Assessment You had the following problems:NIDDMCADMYOCARDIAL INFARCTGERDDEPRESSION Hospital Discharge Instructions Should you have any questions prior to discharge, please contact a member of your healthcare team. If you have left the hospital and have any questions, please contact your primary care physician. Reason For Referral No Data Found Procedures Procedure Name Date Status Code Code Batool m Carpal tunnel completed 71695353 SNOMEDCT Problems Problem Start Date Resolved Date Status Code Code System NIDDM active 10726645 SNOMED-CT CAD active 41926470 SNOMED-CT MYOCARDIAL INFARCT active 48662766 S NOMED-CT GERD active 075581843 SNOMED-CT DEPRESSION active 01590319 SNOMED-CT HIGH CHOLESTEROL 05/01/2023 resolved 84889778 SN OMED-CT STENTED ARTERY 05/01/2023 resolved 039685282 SNOM ED-CT COPD 05/01/2023 resolved 69165601 SNOMED-CT Allergies and Adverse Reactions Allergy Substance Reaction Severity Start Date Concern Status Code Code Syste m MORPHINE Vomiting (SNOMED-CT: 126031010) Moderate Active 7052 RxNorm LATEX Active 8119563 RxNorm BAND-AID BRAND ADHESIVE BANDAGES BREAK OUT (SNOMED-CT: null) Moderate Active 6059170 RxNorm Plan of Treatment MRI L SPINE [...] Date Code Code Sys tem Anemia 05/01/2023 660661629 SNOMED-CT Personal Care Team Section Performer Name Performer Role Active Date Inactive Da beto
--- OUTSIDE RECORDS SUMMARY | 2024-03-25 15:19 | XMS_ITS ---
Author Organization Unknown Address [address] [place] [address] [phone] Phone Care Team Providers Care Staffing Coordinator Name Role Phone MONO Lai Attending Unavailable LETITIA Gaspar Primary Unavailable Social History Type Status Start Date End Date Code Code Syst em Smoking History Current every day smoker 081064097 SNOMED CT Sex Female Assessment You had [...] Date Status Code Code System NIDDM active 31331874 SNOMED-CT CAD active 36658694 SNOMED-CT MYOCARDIAL INFARCT active 18319642 S NOMED-CT GERD active 597967310 SNOMED-CT DEPRESSION active 95295412 SNOMED-CT HIGH CHOLESTEROL 05/01/2023 resolved 78189862 SN OMED-CT STENTED ARTERY 05/01/2023 resolved 035653756 SNOM ED-CT COPD 05/01/2023 resolved 13513949 SNOMED-CT Allergies and Adverse Reactions Allergy Substance Reaction Severity Start Date Concern Status Code Code Syste m MORPHINE Vomiting (SNOMED-CT: 751788725) Moderate Active 7052 RxNorm LATEX Active 5545078 RxNorm BAND-AID BRAND ADHESIVE BANDAGES BREAK OUT (SNOMED-CT: null) Moderate Active 7317288 RxNorm Plan of Treatment MRI L SPINE [...]
--- OUTSIDE RECORDS SUMMARY | 2024-03-25 15:20 | XMS_ITS ---
Author Organization Unknown Address [address] [place] [address] [phone] Phone Care Team Providers Care Puppet Engineer Name Role Phone MONO Lai Attending Unavailable LETITIA Gaspar Primary Unavailable Social History Type Status Start Date End Date Code Code Syst em Smoking History Current every day smoker 388069234 SNOMED CT Sex Female Assessment You had [...] Date Status Code Code System NIDDM active 62405046 SNOMED-CT CAD active 72749813 SNOMED-CT MYOCARDIAL INFARCT active 65335809 S NOMED-CT GERD active 976331766 SNOMED-CT DEPRESSION active 15883432 SNOMED-CT HIGH CHOLESTEROL 05/01/2023 resolved 04449211 SN OMED-CT STENTED ARTERY 05/01/2023 resolved 359899975 SNOM ED-CT COPD 05/01/2023 resolved 41790650 SNOMED-CT Allergies and Adverse Reactions Allergy Substance Reaction Severity Start Date Concern Status Code Code Syste m MORPHINE Vomiting (SNOMED-CT: 128663891) Moderate Active 7052 RxNorm LATEX Active 7406197 RxNorm BAND-AID BRAND ADHESIVE BANDAGES BREAK OUT (SNOMED-CT: null) Moderate Active 1088427 RxNorm Plan of Treatment MRI L SPINE [...]
--- OUTSIDE RECORDS SUMMARY | 2024-03-25 15:21 | XMS_ITS | Clinical Summary ---
Author Organization [facility] Address [address] [place] [address] Care Team Providers Care Supervising Fire Marshal Name Role Phone Elizabeth Dsouza MD Primary Care Provider [phone] Allergies Active Allergy Reactions Criticality Noted Date [...] original. Patient has given permission for [facility] to verbally discuss the following information [...] (07/19/2022): Added automatically from request for surgery [id number] Encounters Date Type Department Care Team Description 03/11/2024 Orders Only [facility] Gastroenterology [address] [place] [phone] Angélica Hernandez MD Iron deficiency anemia due to chronic blood loss (Primary Dx) 03/05/2024 Telephone [facility] Adult Hematology & Oncology [address] [place] [address] [phone] Diana Covington Follow-up (Tobacco cessation) 02/27/2024 9:30 EST Office Visit [facility] Cancer Treatment [address] [place] [address] Harmony Trotter MD Malignant neoplasm of upper lobe of right lung (HCC-CMS) (Primary Dx) 02/27/2024 9:15 EST Nurse Only [facility] Cancer Treatment [address] [place], [place] 73[address] History of lung cancer (Primary Dx) 02/27/2024 Documentation Visit [facility] Cancer Treatment [address] [place] [address] Divina Penny, ABEL 02/27/2024 Telephone [facility] Cancer Treatment [address] [place] [address] Kaiser Miller MD Appointment Related (Pt interested in seeing Diana for Smoking Cessation - [phone]) 02/19/2024 9:49 EST - 02/19/2024 23:59 EST Hospital Encounter [facility] CT Scan [address] [place], [place] 7[address] Squamous cell carcinoma of lung, right (HCC-CMS) Discharge Disposition: Home or Self Care 02/06/2024 9:00 EST Office Visit [facility] Cancer Treatment [address] [place], [place] 5[address] Khris Watson MD Squamous cell carcinoma of lung, right (HCC-CMS) (Primary Dx) 02/06/2024 Documentation Visit [facility] Cancer Treatment [address] [place] [address] Divina Penny, ABEL 01/26/2024 8:15 EST - 01/26/2024 23:59 EST Hospital Encounter [facility] CT Scan [address] [place] [address] Malignant neoplasm of right lung, unspecified part of lung (HCC-CMS) Discharge Disposition: Home or Self Care 12/30/2023 11:35 EDT Phlebotomy Only [facility] - Outpatient Phlebotomy Drawing [address] [facility], [place] [phone] Lab, [facility] Op Phlebotomy Iron deficiency anemia due to chronic blood loss; Iron deficiency 12/30/[address] [facility] [address] [place] [phone] Angélica Hernandez MD Results 12/30/2023 Documentation Visit [facility] Gastroenterology [address] [place] [address] Angélica Hernandez MD Iron deficiency anemia due [...] intestine COPD (chronic obstructive pu lmonary disease) ([facility]) 07/23/22- well controlled w/ u se [...] Rate 16 12/04/20232124 EDT Oxygen Saturation 98% 02/27/2024920 EST Inhaled Oxygen Concentration - - Weight 65.2 kg (143 lb 12.8 oz) 02/27/2024920 EST Height 157.5 cm (5' 2) 12/04/20231933 EDT Body Mass Index 26.3 12/04/20231933 EDT Plan of Treatment Upcoming Encounters Date Type Department Care Team (Late st Contact Info) Description 04/06/2024 9:30 EST Hospital Encounter [facility] Endoscopy [address] [place], [place] [address] Angélica Hernandez MD [address] [place] [phone] 05/17/2024 8:00 EST Appointment [facility] CT Scan [address] [place] [address] 337092 05/19/2024 13:30 EST Appointment [facility] Endoscopy [address] [place] [address] Angélica Hernandez MD [address] [place] [phone] 05/28/2024 14:15 EDT Nurse Only [facility] Cancer [address] [phone] 05/28/2024 14:30 EDT Office Visit [facility] Cancer [address] 029203 Kaiser Miller MD [address] [place] [address], [facility], [address] [place] [address] Health Maintenance Due Date Last [...] either resolved or have decreased in size. [id number] Narrative 02/19/2024 10:[address] CHEST WO [...] previously FDG avid. ?? Resulting Agency Comment [id number] Procedure Note Nelson Addison MD - 02/19/2024 [...] inferior to the site of treated malignancy ([id number] image 133). Note that this is new [...] either resolved or have decreased in size. [id number] us Khris Watson MD IMG CT ORDERABLES Final Result * CT CHEST WO CONTRAST (01/26/2024 8:30 EST) Anatomical Region Laterality Modality Chest Computed Tomogra phy 01/26/2024 11:0 3 EST Impressions 01/26/2024 11:03 EST Multiple new nodular opacities in the right lung as detailed above. Given morphology and distribution, favor an infectious process. However, disease progression cannot be excluded. Recommend short-term 1 month follow-up chest CT. [id number] Narrative 01/26/2024 11:[address] CHEST WO [...] No suspicious osseous lesion Resulting Agency Comment [id number] Procedure Note Nelson Addison MD - 01/26/2024 [...] right upper lobe nodular opacity (series 3 [id number]). * Two new nearby superior segment left [...] excluded. Recommend short-term 1 month follow-upchest CT. [id number] us Kaiser Miller MD [facility] ORDERABLES Final Result * (ABNORMAL) COMPLETE BLOOD COUNT (12/30/2023 11:45 EDT) WBC 4.67 4.00 - 12.40 K/cmm 12/30/2023 12:52 [facility] RBC 3.25(L) 3.86 - 5.04 M/cmm 12/30/2023 12:52 [facility] Hemoglobin 7.9(L) 11.6 - 15.2 g/dL 12/30/2023 12:52 [facility] HCT 28.1(L) 34.9 - 44.4 % 12/30/2023 12:52 [facility] MCV 87 81 - 98 fL 12/30/2023 12:52 [facility] MCH 24.3(L) 26.7 - 33.3 pg 12/30/2023 12:52 [facility] Hypochromia 1+ 12/30/2023 12:52 [facility] MCHC 28.1(L) 32.1 - 35.9 g/dL 12/30/2023 12:52 [facility] RDW-CV 19.2(H) <14.7 % 12/30/2023 12:52 [facility] RDW-SD 60.9(H) <50.4 fl 12/30/2023 12:52 [facility] Anisocytosis 2+ 12/30/2023 12:52 [facility] PLT 251 141 - 377 K/cmm 12/30/2023 12:52 [facility] MPV 10.5 9.5 - 12.7 fL 12/30/2023 12:52 [facility] Blood VENOUS BLOOD / Unknown Venipuncture / Unknown 12/30/2023 11:45 EDT 12/30/2023 12:48 EDT us Angélica Hernandez MD HEMATOLOGY & PF4 ORDERABLES Teresa l Result Performing Organization Address City/[facility]/ZIP Co de Phone Number LABORATORY SERVICES [address] [place], [place] [phone] * (ABNORMAL) IRON (12/30/2023 11:45 EDT) Iron 26(L) 37 - 170 ??g/dL 12/30/2023 13:20 EDT LABORATORY SERVICES Blood VENOUS BLOOD / Unknown Venipuncture / Unknown 12/30/2023 11:45 EDT 12/30/2023 12:35 EDT us Angélica Hernandez MD CHEMISTRY & BLOOD GAS ORDERABLES Final Result Performing Organization Address City/[facility]/ZIP Co de Phone Number LABORATORY SERVICES [address] [place] [phone] from Last 3 Months Insurance MEDICARE Member Subscriber Plan / Payer (Ef fective 2017-Present) Name:Melodie Hodge Member ID:[id number] Relation to Subscriber:Self Name:Melodie Hodge Subscriber ID:[id number] Payer ID:[id number] Group ID:Not on file Type:Medicare GL Address: [address] MEDICARE Member Subscriber Plan / Payer (Ef fective 2017-Present) Name:Melodie Hodge Member ID:[id number] Relation to Subscriber:Self Name:Melodie Hodge Subscriber ID:[id number] Payer ID:[id number] Group ID:Not on file Type:Medicare GL Address: [address] Advance Directives For more information, please contact: [phone] Documents on File Type Date Recorded Patient Boat Washer Expl anation Advance Directive 08/13/2022 ct advance directive Care Teams Supervising Fire Marshal Relationship Specialty Start Date End Date Elizabeth Dsouza MD [address] [place] [address] [facility] - General 02/13/12
--- OUTSIDE RECORDS SUMMARY | 2024-03-25 15:21 | XMS_ITS | Referral Summary ---
Author Organization [facility] Address [address] [place] [address] Care Team Providers Care Transmitter Operator Name Role Phone Elizabeth Dsouza MD Primary Care Provider [phone] Encounters Date Type Department Care Team Description 03/11/2024 Orders Only [facility] [address] [place] [address] Angélica Hernandez MD Iron deficiency anemia due to chronic blood loss (Primary Dx) 03/05/2024 Telephone [facility] Adult Hematology & Oncology [address] [place] [phone] Diana Covington Follow-up (Tobacco cessation) 02/27/2024 Documentation Visit [facility] [place] [phone] Divina Penny, RN 02/27/2024 Telephone [facility] Cancer [address] [address] Kaiser Miller MD Appointment Related (Pt interested in seeing Diana for Smoking Cessation - [phone]) 02/27/2024 9:15 EST Nurse Only [facility] Cancer [address] [address] History of lung cancer (Primary Dx) 02/27/2024 9:30 EST Office Visit [facility] [address] [place] [address] Harmony Trotter MD Malignant neoplasm of upper lobe of right lung (HCC-CMS) (Primary Dx) 02/19/2024 9:49 EST - 02/19/2024 23:59 EST Hospital Encounter [facility] CT Scan [address] [place] [address] Squamous cell carcinoma of lung, right (HCC-CMS) Discharge Disposition: Home or Self Care 02/06/2024 Documentation Visit [facility] [address] [place] [address] Divina Penny RN 02/06/2024 9:00 EST Office Visit [facility] [address] [place] [address] Khris Watson MD Squamous cell carcinoma of lung, right (HCC-CMS) (Primary Dx) 01/26/2024 8:15 EST - 01/26/2024 23:59 EST Hospital Encounter [facility] CT Scan [address] [place] [address] Malignant neoplasm of right lung, unspecified part of lung (HCC-CMS) Discharge Disposition: Home or Self Care 12/30/2023 Telephone [facility] [address] [place] [address] Angélica Hernandez MD Results 12/30/2023 11:35 EDT Phlebotomy Only [facility] - Outpatient Phlebotomy Drawing [address] [place] [address] Lab, [facility] Op Phlebotomy Iron deficiency anemia due to chronic blood loss; Iron deficiency 12/30/2023 Documentation Visit [facility] [address] [place] [address] Angélica Hernandez MD Iron deficiency anemia [...] original. Patient has given permission for [facility] to verbally discuss the [...] (07/19/2022): Added automatically from request for surgery [id number] Social History Tobacco Use Types Packs/Day Years [...] Info) Description 04/06/2024 9:30 EST Hospital Encounter [facility] Endoscopy [address] [place] [address] Angélica Hernandez MD [address] [address] 05/17/2024 8:00 EST Appointment [facility] CT Scan [address] [place], [place] [address] 05/19/2024 13:30 EST Appointment [facility] Endoscopy [address] [place] [address] Angélica Hernandez MD [address] [place] [phone] 05/28/2024 14:15 EDT Nurse Only [facility] [address] [address] 05/28/2024 14:30 EDT Office Visit [facility] [place] [address] [place], [place] [address] Kaiser Miller MD 111 [facility] 2 [place] [address] Procedures Procedure Name Priority Date/Time [...] either resolved or have decreased in size. [id number] Narrative 02/19/2024 10:[address] CHEST WO [...] previously FDG avid. ?? Resulting Agency Comment [id number] Procedure Note Nelson Addison MD - 02/19/2024 [...] inferior to the site of treated malignancy ([id number] image 133). Note that this is new [...] irregular nodular opacity is unchanged compared to theNovemb2023 examination, but is new compared to July 2023. Recommendcontinued short-term surveillance with follow-up CT in no more than 3months. Conversely, PET/CT may be performed, although this lesion may betoo small for characterization by PET. 2. Multiple additional nodular opacities described as new on the previousexamination have either resolved or have decreased in size. [id number] us Khris Watson MD [facility] CT ORDERABLES Final Result * CT CHEST WO CONTRAST (01/26/2024 8:30 EST) Anatomical Region Laterality Modality Chest Computed Tomogra phy 01/26/2024 11:0 3 EST Impressions 01/26/2024 11:03 EST Multiple new nodular opacities in the right lung as detailed above. Given morphology and distribution, favor an infectious process. However, disease progression cannot be excluded. Recommend short-term 1 month follow-up chest CT. [id number] Narrative 01/26/2024 11:[address] CHEST WO [...] No suspicious osseous lesion Resulting Agency Comment [id number] Procedure Note Nelson Addison MD - 01/26/2024 [...] right upper lobe nodular opacity (series 3 [id number]). * Two new nearby superior segment left [...] excluded. Recommend short-term 1 month follow-upchest CT. [id number] us Kaiser Miller MD [facility] CT ORDERABLES Final Result * (ABNORMAL) COMPLETE BLOOD COUNT (12/30/2023 11:45 EDT) WBC 4.67 4.00 - 12.40 K/cmm 12/30/2023 12:52 [facility] RBC 3.25(L) 3.86 - 5.04 M/cmm 12/30/2023 12:52 [facility] Hemoglobin 7.9(L) 11.6 - 15.2 g/dL 12/30/2023 12:52 [facility] HCT 28.1(L) 34.9 - 44.4 % 12/30/2023 12:52 [facility] MCV 87 81 - 98 fL 12/30/2023 12:52 [facility] MCH 24.3(L) 26.7 - 33.3 pg 12/30/2023 12:52 [facility] Hypochromia 1+ 12/30/2023 12:52 [facility] MCHC 28.1(L) 32.1 - 35.9 g/dL 12/30/2023 12:52 [facility] RDW-CV 19.2(H) <14.7 % 12/30/2023 12:52 [facility] RDW-SD 60.9(H) <50.4 fl 12/30/2023 12:52 [facility] Anisocytosis 2+ 12/30/2023 12:52 [facility] PLT 251 141 - 377 K/cmm 12/30/2023 12:52 [facility] MPV 10.5 9.5 - 12.7 fL 12/30/2023 12:52 [facility] Blood VENOUS BLOOD / Unknown Venipuncture / Unknown 12/30/2023 11:45 EDT 12/30/2023 12:48 EDT Angélica Hernandez MD HEMATOLOGY & PF4 ORDERABLES Teresa l Result [facility] [address] [place] [address] * (ABNORMAL) IRON (12/30/2023 11:45 EDT) Iron 26(L) 37 - 170 ??g/dL 12/30/2023 13:20 EDT [facility] Blood VENOUS BLOOD / Unknown Venipuncture / Unknown 12/30/2023 11:45 EDT 12/30/2023 12:35 EDT Angélica Hernandez MD CHEMISTRY & BLOOD GAS ORDERABLES Final Result Performing Organization Address City/[facility]/ZIP Co de Phone Number [facility] [address] [place] [address] from Last 3 [place] [id number] [facility] MEDICARE [facility] Advance Directives For more information, please contact: [phone] Documents on File Type Date Recorded Patient Epic Kaleidoscope Analyst Expl anation Advance Directive 08/13/2022 ri advance directive Care Teams Transmitter Operator Relationship Specialty Start Date End Date Elizabeth Dsouza MD [address] [place] [address] PCP - General 02/13/12
--- OUTSIDE RECORDS SUMMARY | 2024-03-25 15:21 | XMS_ITS ---
Author Organization [facility] Address [address] [place] [address] Care Team Providers Care Box Maker Name Role Phone Elizabeth Dsouza MD Primary Care Provider [phone] Active Problems Patient Care Coordination No te Formatting of this note migh t be different from the original. Patient has given permission for [facility] to verbally discuss the following information [...] Date Squamous cell carcinoma of lung, right ([facility]) 08/13/2022 Cancer Staging:Clinical stage from 08/13/2022:Stage IA2(cT1b, cN0, cM0) - Signed by Acosta Alan MD on 08/13/2022 Lung nodule 07/19/2022 Overview (07/19/2022): Added automatically from request for surgery [id number] Current Oncology Plans No current plan information [...]
--- OUTSIDE RECORDS SUMMARY | 2024-03-25 15:21 | XMS_ITS | Encounter Summary ---
Author Organization [facility] Address [address] [place] [address] Care Team Providers Care Social And Political Studies Professor Name Role Phone Elizabeth Dsouza MD Primary Care Provider [phone] Encounter Details Date Type Department Care Team (Late st Contact Info) Description 03/11/2024 Orders Only [facility] Gastroenterology [address] [place] [phone] Angélica Hernandez MD [address] [phone] Iron deficiency anemia due to chronic blood loss (Primary Dx) Social History Tobacco Use Types [...] Info) Description 04/06/2024 9:30 EST Hospital Encounter [facility] Endoscopy [address] [place] [address] Angélica Hernandez MD [address] [phone] 05/17/2024 8:00 EST Appointment [facility] CT Scan [address] [place] [address] 05/19/2024 13:30 EST Appointment [facility] Endoscopy [address] [place] [address] Angélica Hernandez MD [address] [phone] 05/28/2024 14:15 EDT Nurse Only [facility] [place] Cancer Treatment [place] [address] [place], [place] [address] 05/28/2024 14:30 EDT Office Visit [facility] [place] Cancer Treatment [place] [address] [place], [place] [address] Kaiser Miller MD 111 [facility] 2 [place] [address] documented as of this encounter Visit Diagnoses Diagnosis Iron deficiency anemia due to chronic blood loss- Primary Iron deficiency anemia secondary to blood loss (chronic) documented in this encounter Care Teams Social And Political Studies Professor Relationship Specialty Start Date End Date Elizabeth Dsouza MD [address] [place] [phone] PCP - General 02/13/12 documented as of this encounter
--- OUTSIDE RECORDS SUMMARY | 2024-03-25 15:21 | XMS_ITS ---
Author Organization Unknown Address [address] [place] [phone] Phone Care Team Providers Care Heating Mechanic Name Role Phone LETITIA Gaspar Attending Unavailable Results TRANSFERRIN SATURATION* - Co llect Date/Time: 01/19/2024 14:20 ID: [id number] [address] [place] [address], [address] LOINC: 2502-3 Test Value Unit Reference Range Code Code System Flag IRON 17 ug/dL L=35 H=150 2498-4 LOINC L IBC 409 ug/dL L=260 H=445 2500-7 LOINC TRANSFERRIN SAT. 4.2 % 2502-3 LOINC FERRITIN - Collect Date/Time : 01/19/2024 14:20 ID: [id number] [address] [place] [address], [address] LOINC: 2276-4 Test Value Unit Reference Range Code Code System Flag FERRITIN 6 ng/mL L=8 H=388 2276-4 LOINC L Social History Type Status Start Date End Date Code Code Syst em Smoking History Current every day smoker 215723644 SNOMED CT Sex Female Assessment You had [...] Date Status Code Code System NIDDM active 26706675 SNOMED-CT CAD active 80918260 SNOMED-CT MYOCARDIAL INFARCT active 66788917 S NOMED-CT GERD active 222816220 SNOMED-CT DEPRESSION active 31702927 SNOMED-CT HIGH CHOLESTEROL 05/01/2023 resolved 31662248 SN OMED-CT STENTED ARTERY 05/01/2023 resolved 669492863 SNOM ED-CT COPD 05/01/2023 resolved 35358983 SNOMED-CT Allergies and Adverse Reactions Allergy Substance Reaction Severity Start Date Concern Status Code Code Syste m MORPHINE Vomiting (SNOMED-CT: 521222731) Moderate Active 7052 RxNorm LATEX Active 2530484 RxNorm BAND-AID BRAND ADHESIVE BANDAGES BREAK OUT (SNOMED-CT: null) Moderate Active 4755461 RxNorm Plan of Treatment MRI L SPINE [...] Code Sys tem Iron deficiency anemia 01/19/2024 25864457 SNOME D-CT Personal Care Team Section Performer Name Performer Role Active Date Inactive Da beto
--- OUTSIDE RECORDS SUMMARY | 2024-03-25 15:21 | XMS_ITS | Encounter Summary ---
Author Organization [facility] Address [address] [place] [address] Care Team Providers Care Administrator Health Care Facility Name Role Phone Elizabeth Dsouza MD Primary Care Provider [phone] Reason for Visit * Reason Onset Date Comments Follow-up 03/05/2024 Tobacco cessatio n Encounter Details Date Type Department Care Team (Late st Contact Info) Description 03/05/2024 Telephone [facility] Adult Hematology & Oncology [address] [place] [phone] Diana Covington [address] [place] [address] Follow-up (Tobacco cessation) Social History Tobacco Use [...] cessation at request of nursing and front desk agent. No ans, left vm requesting call back. documented in this encounter Plan of Treatment Upcoming Encounters Date Type Department Care Team (Late st Contact Info) Description 04/06/2024 9:30 EST Hospital Encounter [facility] Endoscopy [address] [place] [address] Angélica Hernandez MD [address] [place] [phone] 05/17/2024 8:00 EST Appointment [facility] CT Scan [address] [place] [address] 05/19/2024 13:30 EST Appointment [facility] Endoscopy [address] [place] [address] Angélica Hernandez MD [address] [place] [phone] 05/28/2024 14:[address] [facility] Treatment [address] [address] 05/28/2024 14:[address] [facility] Cancer Treatment [address] [address] Kaiser Miller MD 111 [facility], Level 2 [place] [address] documented as of this encounter Visit Diagnoses Not on filedocumented in this encounter Care Teams Administrator Health Care Facility Relationship Specialty Start Date End Date Elizabeth Dsouza MD [address] [place] [phone] PCP - General 02/13/12 documented as of this encounter
--- OUTSIDE RECORDS SUMMARY | 2024-03-25 15:22 | XMS_ITS | Encounter Summary ---
Author Organization [facility] Address [address] [place] [address] Care Team Providers Care Rn Intensive Care Unit Name Role Phone Elizabeth Dsouza MD Primary Care Provider [phone] Reason for Referral * Radiology Services (Routine/Next Available) - Authorization Not Required Specialty Diagnoses / Procedures [facility] Referred To Contact Diagnoses Malignant neoplasm of upper lobe of right lung (HCC-CMS) Procedures CT CHEST WO CONTRAST Harmony Trotter MD [address] [place] [phone] Phone: tel: fax: [facility] Referral ID Status Reason Start Date Expiration Date Visits Requested Visits Authorized [id number] Authorization Not Required 4 1 1 Reason for Visit * Reason Comments Lung Cancer Encounter Details Date Type Department Care Team (Late st Contact Info) Description 02/27/2024 9:30 EST Office Visit [facility] [address] [place] [phone] Harmony Trotter MD [address] [place] [phone] Malignant neoplasm of upper lobe of [...] y.o. female smoker with CAD, CKD and [id number] stage IA2 NSCLC of the RUL s/p [...] Trotter MD Network Chair of Radiation Oncology [facility] documented in this encounter Plan of Treatment Upcoming Encounters Date Type Department Care Team (Late st Contact Info) Description 04/06/2024 9:30 EST Hospital Encounter [facility] Endoscopy [address] [place] [address] Angélica Hernandez MD [address] [place] [phone] 05/17/2024 8:00 EST Appointment [facility] CT Scan [address] [place] [address] 05/19/2024 13:30 EST Appointment [facility] Endoscopy [address] [place] [address] Angélica Hernandez MD [address] [place] [phone] 05/28/2024 14:15 EDT Nurse Only [facility] Cancer Treatment [address] [address] 05/28/2024 14:30 EDT Office Visit [facility] Cancer [address] [address] Kaiser Miller MD 111 [facility] 2 [place] [address] Scheduled Orders Name Type Priority [...] lung documented in this encounter Care Teams Rn Intensive Care Unit Relationship Specialty Start Date End Date Elizabeth Dsouza MD [address] [place] [phone] PCP - General 02/13/12 documented as of this encounter
--- OUTSIDE RECORDS SUMMARY | 2024-03-25 15:22 | XMS_ITS | Encounter Summary ---
Author Organization [facility] Address [address] [place] [address] Care Team Providers Care Painting Department Supervisor Name Role Phone Elizabeth Dsouza MD Primary Care Provider [phone] Reason for Referral * Referral (Routine/Next Available) - Authorization Not Required Specialty Diagnoses / Procedures Referred By Loli rose Referred To Contact Diagnoses Iron deficiency anemia due to chronic blood loss Procedures COLONOSCOPY Angélica Hernandez MD [address] [place] [phone] Phone: tel: fax: [place] [address] Phone: tel: fax: Referral ID Status Reason Start Date Expiration Date Visits Requested Visits Authorized [id number] Authorization Not Required 4 1 1 * Referral (Routine/Next Available) - Authorization Not Required Specialty Diagnoses / Procedures Referred By Loli rose Referred To Contact Diagnoses Iron deficiency anemia due to chronic blood loss Procedures ENTEROSCOPY Angélica Hernandez MD [address] [place] [phone] Phone: tel: fax: [facility] [place] [address] Phone: tel: fax: Referral ID Status Reason Start Date Expiration Date Visits Requested Visits Authorized [id number] Authorization Not Required 4 1 1 Encounter Details Date Type Department Care Team (Late st Contact Info) Description 12/30/2023 Documentation Visit [facility] [address] [place] [address] Angélica Hernandez MD [address] [place] [phone] Iron deficiency anemia due to chronic [...] Info) Description 04/06/2024 9:30 EST Hospital Encounter [facility] Endoscopy [address] [place] [address] Angélica Hernandez MD [address] [place] [phone] 05/17/2024 8:00 EST Appointment [facility] CT Scan [address] [place] [address] 05/19/2024 13:30 EST Appointment [facility] Endoscopy [address] [place] [address] Angélica Hernandez MD [address] [phone] 05/28/2024 14:15 EDT Nurse Only [facility] Cancer [address] [phone] 05/28/2024 14:30 EDT Office Visit [facility] Cancer [address] [phone] Kaiser Miller MD 111 [facility], [facility] 2 [place] [address] Scheduled Orders Name Type Priority [...] 37 - 170 ??g/dL 12/30/2023 13:20 EDT [facility] Blood VENOUS BLOOD / Unknown Venipuncture / Unknown 12/30/2023 11:45 EDT 12/30/2023 12:35 EDT us Angélica Hernandez MD CHEMISTRY & BLOOD GAS ORDERABLES Final Result [facility] [address] [place] [address] * (ABNORMAL) COMPLETE BLOOD COUNT (12/30/2023 11:45 EDT) WBC 4.67 4.00 - 12.40 K/cmm 12/30/2023 12:52 [facility] RBC 3.25(L) 3.86 - 5.04 M/cmm 12/30/2023 12:52 [facility] Hemoglobin 7.9(L) 11.6 - 15.2 g/dL 12/30/2023 12:52 [facility] HCT 28.1(L) 34.9 - 44.4 % 12/30/2023 12:52 [facility] MCV 87 81 - 98 fL 12/30/2023 12:52 [facility] MCH 24.3(L) 26.7 - 33.3 pg 12/30/2023 12:52 [facility] Hypochromia 1+ 12/30/2023 12:52 [facility] MCHC 28.1(L) 32.1 - 35.9 g/dL 12/30/2023 12:52 [facility] RDW-CV 19.2(H) <14.7 % 12/30/2023 12:52 [facility] RDW-SD 60.9(H) <50.4 fl 12/30/2023 12:52 [facility] Anisocytosis 2+ 12/30/2023 12:52 [facility] PLT 251 141 - 377 K/cmm 12/30/2023 12:52 [facility] MPV 10.5 9.5 - 12.7 fL 12/30/2023 12:52 [facility] Blood VENOUS BLOOD / Unknown Venipuncture / Unknown 12/30/2023 11:45 EDT 12/30/2023 12:48 EDT us Angélica Hernandez MD HEMATOLOGY & PF4 ORDERABLES Teresa lucia Result [facility] [address] [place], [place] [phone] documented in this encounter Visit Diagnoses Diagnosis Iron deficiency anemia due to chronic blood loss- Primary Iron deficiency anemia secondary to blood loss (chronic) Iron deficiency Iron deficiency anemia, unspecified documented in this encounter Care Teams Painting Department Supervisor Relationship Specialty Start Date End Date Elizabeth Dsouza MD [address] [place] [phone] PCP - General 02/13/12 documented as of this encounter
--- OUTSIDE RECORDS SUMMARY | 2024-03-25 15:22 | XMS_ITS | Encounter Summary ---
Author Organization [facility] Address [address] [place] [address] Care Team Providers Care Business Support Professional Name Role Phone Elizabeth Dsouza MD Primary Care Provider [phone] Reason for Visit * Reason Comments Lung Cancer Encounter Details Date Type Department Care Team (Late st Contact Info) Description 02/06/2024 Documentation Visit [facility] Cancer Treatment [address] [address] Divina Penny, ABEL Social History Tobacco Use [...] Info) Description 04/06/2024 9:30 EST Hospital Encounter [facility] Endoscopy [address] [place] [address] Angélica Hernandez MD [address] [place] [phone] 05/17/2024 8:00 EST Appointment [facility] CT Scan [address] [place] [address] 05/19/2024 13:30 EST Appointment [facility] Endoscopy [address] [place] [address] Angélica Hernandez MD [address] [place] [phone] 05/28/2024 14:15 EDT Nurse Only [facility] Cancer Treatment [address] [address] 05/28/2024 14:30 EDT Office Visit [facility] Cancer Treatment [address] [place] [address] Kaiser Miller MD 111 [facility], Level [address] [place] [address] documented as of this encounter Visit Diagnoses Not on filedocumented in this encounter Care Teams Business Support Professional Relationship Specialty Start Date End Date Elizabeth Dsouza MD [address] [place] [phone] PCP - General 02/13/12 documented as of this encounter
--- OUTSIDE RECORDS SUMMARY | 2024-03-25 15:22 | XMS_ITS | Encounter Summary ---
Author Organization [facility] Address [address] [place] [address] Care Team Providers Care Jewelry Appraiser Name Role Phone Elizabeth Dsouza MD Primary Care Provider [phone] Reason for Visit * Reason Onset Date Comments Results 12/30/2023 Encounter Details Date Type Department Care Team (Late st Contact Info) Description 12/30/2023 Telephone [facility] Gastroenterology [address] [place] [address] [phone] Angélica Hernandez MD [address] [place] [phone] Results Social History Tobacco Use Types [...] Encounter - Angélica Hernandez MD - 12/30/2023 7163 EDT Spoke with patient regarding her lab [...] plan. Angélica Hernandez MD Gastroenterology & Hepatology Echo Gastroenterology documented in this encounter Plan of Treatment Upcoming Encounters Date Type Department Care Team (Late st Contact Info) Description 04/06/2024 9:30 EST Hospital Encounter [facility] Endoscopy [address] [place], [place] [address] Angélica Hernandez MD [address] [place] [phone] 05/17/2024 8:00 EST Appointment [facility] CT Scan [address] [place], [place] [address]842 05/19/2024 13:30 EST Appointment [facility] Endoscopy [address] [place], [place] [address]46[address] Angélica Hernandez MD [address] [phone] 05/28/2024 14:15 EDT Nurse Only [facility] Cancer Treatment [place] [address] [place] [address] 05/28/2024 14:30 EDT Office Visit [facility] Cancer Treatment [place] [address] [place] [address] Kaiser Miller MD [address] [place] [address] 2 [place] [phone] documented as of this encounter Visit Diagnoses Not on filedocumented in this encounter Care Teams Jewelry Appraiser Relationship Specialty Start Date End Date Elizabeth Dsouza MD [address] [place] [phone] PCP - General 02/13/12 documented as of this encounter
--- OUTSIDE RECORDS SUMMARY | 2024-03-25 15:22 | XMS_ITS | Encounter Summary ---
Author Organization [facility] Address [address] [place] [address] Care Team Providers Care Special Client Bus Driver Name Role Phone Elizabeth Dsouza MD Primary Care Provider [phone] Reason for Visit * Reason Comments Lung Cancer Encounter Details Date Type Department Care Team (Late st Contact Info) Description 02/27/2024 9:15 EST Nurse Only [facility] [address] [place] [address] History of lung cancer (Primary Dx) Social [...] Info) Description 04/06/2024 9:30 EST Hospital Encounter [facility] Endoscopy [address] [place], [place] 6[address] Angélica Hernandez MD [address] [place] [phone] 05/17/2024 8:00 EST Appointment [facility] CT Scan [address] [place], [place] [address] 05/19/2024 13:30 EST Appointment [facility] Endoscopy [address] [place], [place] [address] Angélica Hernandez MD [address] [place] [phone] 05/28/2024 14:15 EDT Nurse Only [facility] [address] [place] [address] 05/28/2024 14:30 EDT Office Visit [facility] [address] [place] [address] Kaiser Miller MD 111 [facility], [facility] 2 [place] [phone] documented as of this encounter Visit Diagnoses Diagnosis History of lung cancer- Primary Personal history of malignant neoplasm of bronchus and lung documented in this encounter Care Teams Special Client Bus Driver Relationship Specialty Start Date End Date Elizabeth Dsouza MD 4 [place] [phone] PCP - General 02/13/12 documented as of this encounter
--- OUTSIDE RECORDS SUMMARY | 2024-03-25 15:22 | XMS_ITS | Encounter Summary ---
Author Organization [facility] Address [address] [place] [address] Care Team Providers Care Carton Filler Name Role Phone Elizabeth Dsouza MD Primary Care Provider [phone] Reason for Visit * Reason Comments Anemia Seen at [facility] today and was called back for low Iron lab results // reports dark stool x 2+ months with capsule endo 2 months ago Encounter Details Date Type Department Care Team (Late st Contact Info) Description 12/04/2023 20:26 EDT - 12/04/2023 21:36 EDT Emergency [facility] Emergency Department [address] [place] [address] Anika Martinez MD 111 [facility], Level 1 [place] [address] Anemia, unspecified type (Primary Dx) [...] be sent through Care Everywhere. * Anemia (Malaysian) documented in this encounter Medications at Time [...] Means Destination Comment s Home or Self Shelter documented in this encounter ED Notes * [...] arrange to have a iron infusion at [facility]. I once ag cathie offered her [...] that her hemoglobin was 6.4 at the [facility]. Patient denies any fever, cough, chest pain, [...] Info) Description 04/06/2024 9:30 EST Hospital Encounter [facility] Endoscopy [address] [place], [place] [address] Angélica Hernandez MD [address] [place] [phone] 05/17/2024 8:00 EST Appointment [facility] CT Scan [address] [place] [address] 05/19/2024 13:30 EST Appointment [facility] Endoscopy [address] [place] [address] Angélica Hernandez MD [address] [phone] 05/28/2024 14:15 EDT Nurse Only [facility] Cancer Treatment [place] [address] [place] [address] 05/28/2024 14:30 EDT Office Visit [facility] Cancer [facility] 130 [place] [address] Kaiser Miller MD 111 [facility] 2 [place] [address] documented as of this encounter [...] 21:31 EDT [facility] Antibody Screen Negative 12/04/2023 21:31 [facility]OD [facility] Specimen Expires: 12/07/2023 @ 23:59 12/04/2023 21:31 T [facility] Blood VENOUS BLOOD / Unknown Venipuncture / Unknown 12/04/2023 20:49 EDT 12/04/2023 20:51 EDT us Anika Martinez MD BLOOD BANK TESTS Edited Re sult - Final [facility] [address] [place] [address] * (ABNORMAL) PROTIME (12/04/2023 20:41 EDT) I.N.R. 1.2(H) 0.9 - 1.1 Ratio 12/04/2023 20:55 EDT [facility] Pro Time 14.0(H) 9.7 - 12.8 secs 12/04/2023 20:55 EDT [facility] Blood VENOUS BLOOD / Unknown Venipuncture / Unknown 12/04/2023 20:41 EDT 12/04/2023 20:43 EDT Narrative [facility] - 12/04/2023 20:55 EDT Moderate Intensity Coumadin INR = 2.0-3.0 Adjustments in anticoagulant therapy dose should be based on the INR and NOT on the Protime. us Anika Martinez MD HEMATOLOGY & PF4 ORDERABLE S Final Result [facility] [address] [place] [address] * IRON (12/04/2023 20:41 EDT) Iron 53 37 - 170 ??g/dL 12/04/2023 21:17 [facility] Blood VENOUS BLOOD / Unknown Venipuncture / Unknown 12/04/2023 20:41 EDT 12/04/2023 20:43 EDT us Anika Martinez MD CHEMISTRY & BLOOD GAS ORDE RABLES Final Result Performing Organization Address [facility]/ZIP Co de Phone Number [facility] [address] [place] [address] * (ABNORMAL) COMPREHENSIVE METABOLIC PANEL (CMP) (12/04/2023 20:41 EDT) Sodium 139 136 - 145 mmol/L 12/04/2023 21:17 [facility] Potassium 3.9 3.5 - 5.0 mmol/L 12/04/2023 21:17 [facility] Chloride 107 96 - 110 mmol/L 12/04/2023 21:17 [facility] CO2 Total 21(L) 22 - 32 mmol/L 12/04/2023 21:17 [facility] Glucose 93 70 - 99 mg/dl 12/04/2023 21:17 [facility] BUN 10 10 - 26 mg/dL 12/04/2023 21:17 [facility] Creatinine 1.49(H) 0.52 - 1.04 mg/dL 12/04/2023 21:17 [facility] eGFR 38(L) >60 mL/min/1.7 3m2 12/04/2023 21:17 [facility] Total Protein 6.9 6.3 - 8.2 g/dL 12/04/2023 21:17 [facility] Albumin 4.2 3.4 - 4.9 g/dL 12/04/2023 21:17 [facility] Alkaline Phosphatase 68 38 - 126 U/L 12/04/2023 21:17 [facility] AST 20 15 - 46 U/L 12/04/2023 21:17 [facility] ALT 13 <35 U/L 12/04/2023 21:17 [facility] Bilirubin, Total 1.3 <1.4 mg/dL 12/04/19 21:17 [facility] Calcium 9.6 8.5 - 10.5 mg/dL 12/04/2023 21:17 [facility] Albumin/Globulin Ratio 1.6 1.0 - 2.5 12/04/2023 21:17 [facility] Anion Gap 11 5 - 14 mmol/L 12/04/2023 21:17 [facility] Blood VENOUS BLOOD / Unknown Venipuncture / Unknown 12/04/2023 20:41 EDT 12/04/2023 20:43 EDT Anika Martinez MD CHEMISTRY & BLOOD GAS MARC HANSEN Final Result [facility] [address] [place] [address] * (ABNORMAL) COMPLETE BLOOD COUNT AND DIFFERENTIAL (12/04/2023 20:41 EDT) WBC 4.62 4.00 - 12.40 K/cmm 12/04/2023 20:49 [facility] RBC 3.21(L) 3.86 - 5.04 M/cmm 12/04/2023 20:49 [facility] Hemoglobin 7.6(L) 11.6 - 15.2 g/dL 12/04/2023 20:49 [facility] HCT 27.6(L) 34.9 - 44.4 % 12/04/2023 20:49 [facility] MCV 86 81 - 98 fL 12/04/2023 20:49 [facility] MCH 23.7(L) 26.7 - 33.3 pg 12/04/2023 20:49 [facility] Hypochromia 1+ 12/04/2023 20:49 [facility] MCHC 27.5(L) 32.1 - 35.9 g/dL 12/04/2023 20:49 [facility] RDW-CV 18.0(H) <14.7 % 12/04/2023 20:49 [facility] RDW-SD 57.0(H) <50.4 fl 12/04/2023 20:49 [facility] Anisocytosis 1+ 12/04/2023 20:49 [facility] PLT 239 141 - 377 K/cmm 12/04/2023 20:49 [facility] MPV 10.1 9.5 - 12.7 fL 12/04/2023 20:49 [facility] % Neutrophils 65.8 Not Indicated % 12/04/2023 20:49 [facility] % Lymphocytes 23.6 Not Indicated % 12/04/2023 20:49 [facility] % Monocytes 7.6 Not Indicated % 12/04/2023 20:49 [facility] % Eosinophils 2.4 Not Indicated % 12/04/2023 20:49 [facility] % Basophils 0.4 Not Indicated % 12/04/2023 20:49 [facility] % Immature Grans 0.2 <0.9 % 12/04/19 20:49 [facility] Absolute Neutrophils 3.04 2.20 - 8.85 K/cmm 12/04/2023 20:49 [facility] Absolute Lymphocytes 1.09 1.09 - 3.30 K/cmm 12/04/2023 20:49 [facility] Absolute Monocytes 0.35 0.10 - 0.80 K/cmm 12/04/2023 20:49 [facility] Absolute Eosinophils 0.11 0.03 - 0.61 K/cmm 12/04/2023 20:49 [facility] ABS Basophils 0.02 0.01 - 0.11 K/cmm 12/04/2023 20:49 [facility] Absolute Immature Grans 0.01 0.00 - 0.06 K/cmm 12/04/2023 20:49 [facility] Type of Differential: Auto 12/04/2023 20:49 [facility] Blood VENOUS BLOOD / Unknown Venipuncture / Unknown 12/04/2023 20:41 EDT 12/04/2023 20:43 EDT us Anika Martinez MD PACKAGES & DNA PROBE ORDER BHARAT Final Result Performing Organization Address [facility]/ZIP Co de Phone Number [facility] [address] [place] [address] * BLOOD BANK HOLD (12/04/2023 20:41 EDT) Hold BB Spec will exp at 23:59, 3 days from collect date 12/04/2023 20:44 EDT [facility] Blood VENOUS BLOOD / Unknown Venipuncture / Unknown 12/04/2023 20:41 EDT 12/04/2023 20:43 EDT us Anika Martinez MD BLOOD BANK TESTS Final Res ult Performing Organization Address [facility]/ZIP Co de Phone Number [facility] [address] [place] [address] * HOLD SST (12/04/2023 20:41 EDT) Hold Hold 12/04/2023 21:46 EDT [facility] Blood VENOUS BLOOD / Unknown Venipuncture / Unknown 12/04/2023 20:41 EDT 12/04/2023 20:43 EDT us Anika Martinez MD LAB INFO SERVICE AND SUPPO RT & PHONE RESULT Final Result Performing Organization Address [facility]/ZIP Co de Phone Number [facility] [address] [place] [address] * HOLD LAVENDER TOP (12/04/2023 20:41 EDT) Hold Hold 12/04/2023 21:46 EDT [facility] Blood VENOUS BLOOD / Unknown Venipuncture / Unknown 12/04/2023 20:41 EDT 12/04/2023 20:43 EDT us Anika Martinez MD LAB INFO SERVICE AND SUPPO RT & PHONE RESULT Final Result [facility] [address] [place] [address] * HOLD GREEN TOP (12/04/2023 20:41 EDT) Hold Hold 12/04/2023 21:46 EDT [facility] Blood VENOUS BLOOD / Unknown Venipuncture / Unknown 12/04/2023 20:41 EDT 12/04/2023 20:43 EDT us Anika Martinez MD LAB INFO SERVICE AND SUPPO RT & PHONE RESULT Final Result [facility] [address] [place] [address] * HOLD BLUE TOP (12/04/2023 20:41 EDT) Hold Hold 12/04/2023 21:46 EDT [facility] Blood VENOUS BLOOD / Unknown Venipuncture / Unknown 12/04/2023 20:41 EDT 12/04/2023 20:43 EDT us Anika Martinez MD LAB INFO SERVICE AND SUPPO RT & PHONE RESULT Final Result [facility] [address] [place] [address] documented in this encounter Visit Diagnoses Diagnosis Anemia, unspecified type- Primary documented in this encounter Orders Nursing Count Last Ordered Date First Orde red Date CALL BLOOD BANK ([facility] 4120) TIER 1 ORDERS ARE PLACED 1 12/04/2023 documented in this encounter Care Teams Carton Filler Relationship Specialty Start Date End Date Elizabeth Dsouza MD [address] [place] [address] PCP - General 02/13/12 documented as of this encounter
--- OUTSIDE RECORDS SUMMARY | 2024-03-25 15:22 | XMS_ITS | Encounter Summary ---
Author Organization [facility] Address [address] [place] [address] Care Team Providers Care Field Talent Qualification Specialist Name Role Phone Elizabeth Dsouza MD Primary Care Provider Reason for Referral * Radiology Services (Routine/Next Available) - Authorization Not Required Specialty Diagnoses / Procedures Referred By Contac t Referred To Contact Diagnoses Squamous cell carcinoma of lung, right (HCC-CMS) Procedures CT CHEST WO CONTRAST Khris Watson MD [address] [address] Phone: tel: fax: [facility] Referral ID Status Reason Start Date Expiration Date Visits Requested Visits Authorized [id number] Authorization Not Required 4 1 1 Reason for Visit * Radiology Services (Routine/Next Available) - Authorization Not Required Specialty Diagnoses / Procedures Referred By Contramandeep t Referred To Contact Diagnoses Squamous cell carcinoma of lung, right (HCC-CMS) Procedures CT CHEST WO CONTRAST Khris Watson MD [address] [place] [phone] Phone: tel: fax: [facility] Referral ID Status Reason Start Date Expiration Date Visits Requested Visits Authorized [id number] Authorization Not Required 4 1 1 Encounter Details Date Type Department Care Team (Latest Contact Info) Description 02/19/2024 9:49 EST - 02/19/2024 23:59 EST Hospital Encounter [facility] CT Scan [address] [place] [address] Squamous cell carcinoma of lung, right (HCC-CMS) [...] Description 04/06/2024 9:30 EST Hospital Encounter [facility] Endoscopy [address] [place] [address] Angélica Hernandez MD [address] [place] [phone] 05/17/2024 8:00 EST Appointment [facility] CT Scan [address] [place] [address] 05/19/2024 13:30 EST Appointment [facility] Endoscopy [address] [place] [address] Angélica Hernandez MD [address] [place] [phone] 05/28/2024 14:15 EDT Nurse Only [facility] Cancer [address] [address] 05/28/2024 14:30 EDT Office Visit [facility] Cancer [address] [address] Kaiser Miller MD 111 [facility], [facility], Level 2 [place] [address] documented as of this encounter [...] either resolved or have decreased in size. [id number] Narrative 02/19/2024 10:[address] CHEST WO [...] previously [facility] avid. ?? Resulting Agency Comment [id number] Procedure Note Nelson Addison MD - 02/19/2024 [...] inferior to the site of treated malignancy ([id number] image 133). Note that this is new [...] either resolved or have decreased in size. [id number] us Khris Waston MD IMG CT ORDERABLES Final Result documented in this encounter Visit Diagnoses Diagnosis Squamous cell carcinoma of lung, right (HCC-CMS) documented in this encounter Care Teams Field Talent Qualification Specialist Relationship Specialty Start Date End Date Elizabeth Dsouza MD [address] [place] [address] PCP - General 02/13/12 documented as of this encounter
--- OUTSIDE RECORDS SUMMARY | 2024-03-25 15:22 | XMS_ITS | Encounter Summary ---
Author Organization [facility] Address [address] [place] [address] Care Team Providers Care Calendering Machine Operator Name Role Phone Elizabeth Dsouza MD Primary Care Provider [phone] Reason for Referral * Radiology Services (Routine/Next Available) - Authorization Not Required Specialty Diagnoses / Procedures [facility] Referred To Contact Diagnoses Malignant neoplasm of right lung, unspecified part of lung (HCC-CMS) Procedures CT CHEST WO CONTRAST Kaiser Miller MD Phone: tel: fax: [facility] [place]erral ID Status Reason Start Date Expiration Date Visits Requested Visits Authorized [id number] Authorization Not Required 07/25/2023 1 1 Reason for Visit * Radiology Services (Routine/Next Available) - Authorization Not Required Specialty Diagnoses / Procedures Referred By [facility] Referred To Contact Diagnoses Malignant neoplasm of right lung, unspecified part of lung (HCC-CMS) Procedures CT CHEST WO CONTRAST Kaiser Miller MD Phone: tel: fax: [facility] Referral ID Status Reason Start Date Expiration Date Visits Requested Visits Authorized [id number] Authorization Not Required 07/25/2023 1 1 Encounter Details Date Type Department Care Team (Latest Contact Info) Description 01/26/2024 8:15 EST - 01/26/2024 23:59 EST Hospital Encounter [facility] CT Scan [address] [place] [address] Malignant neoplasm of right lung, unspecified part [...] Info) Description 04/06/2024 9:30 EST Hospital Encounter [facility] Endoscopy [address] [place], [place] [address] Angélica Hernandez MD [address] [place] [phone] 05/17/2024 8:00 EST Appointment [facility] CT Scan [address] [place], [place] [address] 05/19/2024 13:30 EST Appointment [facility] Endoscopy [address] [place] [address] Angélica Hernandez MD [address] [phone] 05/28/2024 14:15 EDT Nurse Only [facility] [place] [address] [place] [address] 05/28/2024 14:30 EDT Office Visit [facility] Treatment [place] [address] [place] [address] Kaiser Miller MD 111 [facility], [facility] 2 [place] [phone] documented as of this encounter [...] Recommend short-term 1 month follow-up chest CT. [id number] Narrative 01/26/2024 11:[address] CHEST WO [...] No suspicious osseous lesion Resulting Agency Comment [id number] Procedure Note Nelson Addison MD - 01/26/2024 [...] right upper lobe nodular opacity (series 3 [id number]). * Two new nearby superior segment left [...] excluded. Recommend short-term 1 month follow-upchest CT. [id number] Kaiser Miller MD IMG CT ORDERABLES Final Result documented in this encounter Visit Diagnoses Diagnosis Malignant neoplasm of right lung, unspecified part of lung (HCC-CMS) documented in this encounter Care Teams Calendering Machine Operator Relationship Specialty Start Date End Date Elizabeth Dsouza MD [address] [place] [address] PCP - General 02/13/12 documented as of this encounter
--- OUTSIDE RECORDS SUMMARY | 2024-03-25 15:22 | XMS_ITS | Encounter Summary ---
Author Organization [facility] Address [address] [place] [address] Care Team Providers Care Environmental Restoration Planner Name Role Phone Elizabeth Dsouza MD Primary Care Provider [phone] Encounter Details Date Type Department Care Team (Late st Contact Info) Description 12/30/2023 11:35 EDT Phlebotomy Only [facility] - Outpatient Phlebotomy Drawing [address] [place] [address] Lab, [facility] Iron deficiency anemia due to [...] Info) Description 04/06/2024 9:30 EST Hospital Encounter [facility] Endoscopy [address] [place] [address] Angélica Hernandez MD [address] [phone] 05/17/2024 8:00 EST Appointment [facility] CT Scan [address] [place], [place] [phone] 05/19/2024 13:30 EST Appointment [facility] Endoscopy [address] [place] [address] Angélica Hernandez MD [address] [place] [phone] 05/28/2024 14:15 EDT Nurse Only [facility] Cancer Treatment [address] [address] 05/28/2024 14:30 EDT Office Visit [facility] Cancer Treatment [address] [address] Kaiser Miller MD 111 [facility] 2 [place] [address] documented as of this encounter Procedures Procedure Name Priority Date/Time Associated Diagnosis Comments COMPLETE BLOOD COUNT Routine 12/30/2023 11:45 EDT Iron deficiency anemia due to chronic blood loss Iron deficiency IRON Routine 12/30/2023 11:45 EDT Iron deficiency anemia due to chronic blood loss documented in this encounter Results * (ABNORMAL) IRON (12/30/2023 11:45 EDT) Pathologist [facility] Iron 26(L) 37 - 170 ??g/dL 12/30/2023 13:20 [facility] Blood VENOUS BLOOD / Unknown Venipuncture / Unknown 12/30/2023 11:45 EDT 12/30/2023 12:35 EDT us Angélica Hernandez MD CHEMISTRY & BLOOD GAS ORDERABLES Final Result [facility] [address] [place] [address] * (ABNORMAL) COMPLETE BLOOD COUNT (12/30/2023 11:45 EDT) [facility] WBC 4.67 4.00 - 12.40 K/cmm 12/30/2023 12:52 [facility] RBC 3.25(L) 3.86 - 5.04 M/cmm 12/30/2023 12:52 [facility] Hemoglobin 7.9(L) 11.6 - 15.2 g/dL 12/30/2023 12:52 [facility] HCT 28.1(L) 34.9 - 44.4 % 12/30/2023 12:52 [facility] MCV 87 81 - 98 fL 12/30/2023 12:52 [facility] MCH 24.3(L) 26.7 - 33.3 pg 12/30/2023 12:52 [facility] Hypochromia 1+ 12/30/2023 12:52 [facility] MCHC 28.1(L) 32.1 - 35.9 g/dL 12/30/2023 12:52 [facility] RDW-CV 19.2(H) <14.7 % 12/30/2023 12:[address] [facility] RDW-SD 60.9(H) <50.4 fl 12/30/2023 12:[address] [facility] Anisocytosis 2+ 12/30[facility]23 [facility] 251 141 - 377 K/cmm 12/30/2023 12:[address] [facility] MPV 10.5 9.5 - 12.7 fL 12/30/2023 12:[address] [facility] Blood VENOUS BLOOD / Unknown Venipuncture / Unknown 12/30/2023 11:45 EDT 12/30/2023 12:48 EDT us Angélica Hernandez MD HEMATOLOGY & PF4 ORDERABLES Teresa khari Result [facility] [address] [place] [address] documented in this encounter Visit Diagnoses Diagnosis Iron deficiency anemia due to chronic blood loss Iron deficiency anemia secondary to blood loss (chronic) Iron deficiency Iron deficiency anemia, unspecified documented in this encounter Care Teams Environmental Restoration Planner Relationship Specialty Start Date End Date Elizabeth Dsouza MD [address] [place] [phone] PCP - General 02/13/12 documented as of this encounter
--- OUTSIDE RECORDS SUMMARY | 2024-03-25 15:22 | XMS_ITS | Encounter Summary ---
Author Organization [facility] Address [address] [place] [address] Care Team Providers Care Make Ready Mechanic Name Role Phone Elizabeth Dsouza MD Primary Care Provider [phone] Reason for Visit * Reason Onset Date Comments Appointment Related 02/27/2024 Pt intereste d in seeing Diana for Smoking Cessation - [phone] Encounter Details Date Type Department Care Team (Late st Contact Info) Description 02/27/2024 Telephone [facility] - [facility] Cancer Treatment [address] [address] Kaiser Miller MD 111 [facility], [facility] 2 [place] [address] Appointment Related (Pt interested in seeing Diana for Smoking Cessation - [phone]) Social History Tobacco Use Types Packs/Day Years [...] [place] - 03/05/2024 1422 EST Called pt - no ans, left vm requesting call back. * Telephone Encounter - Judie Robertson - 02/27/2024 3393 EST Pt interested in seeing Diana for Smoking Cessation - [phone] Pt was [facility] for a f/u. She returns on 05/29/23 for another f/u after a CT. documented in this encounter Plan of Treatment Upcoming Encounters Date Type Department Care Team (Late st Contact Info) Description 04/06/2024 9:30 EST Hospital Encounter [facility] Endoscopy [address] [place], [place] [address] Angélica Hernandez MD [address] [place] [phone] 05/17/2024 8:00 EST Appointment [facility] CT Scan [address] [place], [place] [address] 05/19/2024 13:30 EST Appointment [facility] Endoscopy [address] [place], [place] [address] Angélica Hernandez MD [address] [phone] 05/28/2024 14:15 EDT Nurse Only [facility] Cancer [facility] [address] [place], [place] [address] 05/28/2024 14:30 EDT Office Visit [facility] Cancer [address] [address] Kaiser Miller MD 111 [facility], [facility] 2 [place] [address] documented as of this encounter Visit Diagnoses Not on filedocumented in this encounter Care Teams Make Ready Mechanic Relationship Specialty Start Date End Date Elizabeth Dsouza MD [address] [place] [phone] PCP - General 02/13/12 documented as of this encounter
--- OUTSIDE RECORDS SUMMARY | 2024-03-25 15:22 | XMS_ITS | Encounter Summary ---
Author Organization [facility] Address [address] [place] [address] Care Team Providers Care Dietary Worker Name Role Phone Elizabeth Dsouaz MD Primary Care Provider Reason for Referral * Radiology Services (Routine/Next Available) - Authorization Not Required Specialty Diagnoses / Procedures [facility] Referred To Contact Diagnoses Squamous cell carcinoma of lung, right (HCC-CMS) Procedures CT CHEST WO CONTRAST Khris Watson MD [address] [place] [phone] Phone: tel: fax: [facility] Referral ID Status Reason Start Date Expiration Date Visits Requested Visits Authorized [id number] Authorization Not Required 4 1 1 Reason for Visit * Reason Comments Lung Cancer Encounter Details Date Type Department Care Team (Late st Contact Info) Description 02/06/2024 9:00 EST Office Visit [facility] [address] [place], [place] [address] Khris Watson MD [address] [place] [phone] Squamous cell carcinoma of lung, right [...] Staging Squamous cell carcinoma of lung, right (HCC-[facility]) Staging form: Lung, AJCC 8th Edition - [...] prepared with voice recognition software. Please excuse social worker aide errors. documented in this encounter Plan of Treatment Upcoming Encounters Date Type Department Care Team (Late st Contact Info) Description 04/06/2024 9:30 EST Hospital Encounter [facility] Endoscopy [address] [place] [address] Angélica Hernandez MD [address] [place] [phone] 05/17/2024 8:00 EST Appointment [facility] CT Scan [address] [place] [address] 05/19/2024 13:30 EST Appointment [facility] Endoscopy [address] [place] [address] Angélica Hernandez MD 111 [facility] [address] [place] [phone] 05/28/2024 14:15 EDT Nurse Only [facility] Cancer [facility] [address] [place], [place] [address] 05/28/2024 14:30 EDT Office Visit [facility] [address] [place], [place] [address] Kaiser Miller MD 111 [facility], [facility] 2 [place] [address] documented as of this encounter [...] either resolved or have decreased in size. [id number] Narrative 02/19/2024 10:[address] CHEST WO [...] previously [facility] avid. ?? Resulting Agency Comment [id number] Procedure Note Nelson Addison MD - 02/19/2024 [...] inferior to the site of treated malignancy ([id number] image 133). Note that this is new [...] either resolved or have decreased in size. [id number] Khris Watson MD IMG CT ORDERABLES Final Result documented in this encounter Visit Diagnoses Diagnosis Squamous cell carcinoma of lung, right (HCC-CMS)- Primary Squamous cell carcinoma of lung, right (HCC-CMS) documented in this encounter Care Teams Dietary Worker Relationship Specialty Start Date End Date Elizabeth Dsouza MD [address] [place] [address] PCP - General 02/13/12 documented as of this encounter
--- OUTSIDE RECORDS SUMMARY | 2024-03-25 15:23 | XMS_ITS | Encounter Summary ---
Author Organization [facility] Address [address] [place] [address] Care Team Providers Care Marker Assembler Name Role Phone Elizabeth Dsouza MD Primary Care Provider [phone] Encounter Details Date Type Department Care Team (Latest Contact Info) Description 08/28/2022 17:30 EDT - 08/28/2022 23:[address] [facility] [place] [address] [place] [address] Discharge Disposition: Home or Self Care Social [...] Info) Description 04/06/2024 9:30 EST Hospital Encounter [facility] Endoscopy [address] [place] [address] Angélica Hernandez MD [address] [place] [phone] 05/17/2024 8:00 EST Appointment [facility] CT Scan [address] [place] [address] 05/19/2024 13:30 EST Appointment [facility] Endoscopy [address] [place] [address] Angélica Hernandez MD [address] [phone] 05/28/2024 14:15 EDT Nurse Only [facility] [address] [place] [address] 05/28/2024 14:[address] [facility] [address] [place] [address] Kaiser Miller MD 111 [facility], [facility] 2 [place] [address] documented as of this encounter Visit Diagnoses Not on filedocumented in this encounter Care Teams Marker Assembler Relationship Specialty Start Date End Date Elizabeth Dsouza MD [address] [place] [phone] PCP - General 02/13/12 documented as of this encounter
--- OUTSIDE RECORDS SUMMARY | 2024-03-25 15:23 | XMS_ITS | Encounter Summary ---
Author Organization [facility] Address [address] [place] [address] Care Team Providers Care Baking Factory Worker Name Role Phone Elizabeth Dsouza MD Primary Care Provider [phone] Reason for Referral * Radiology Services (Routine/Next Available) - Authorization Not Required Specialty Diagnoses / Procedures [facility] Referred To Contact Diagnoses Squamous cell carcinoma of lung, right (HCC-CMS) Procedures CT CHEST WO CONTRAST Kaiser Miller MD Phone: tel: fax: [facility] Referral ID Status Reason Start Date Expiration Date Visits Requested Visits Authorized [id number] Authorization Not Required 06/16/2023 1 1 Reason for Visit * Reason Onset Date Comments Follow-up 06/16/2023 Encounter Details Date Type Department Care Team (Late st Contact Info) Description 06/16/[address] [facility] [address] [place] [address] Kaiser Miller MD 111 [facility], Level 2 [place] [address] Squamous cell carcinoma of lung, [...] Info) Description 04/06/2024 9:30 EST Hospital Encounter [facility] Endoscopy [address] [place], [place] [phone] Angélica Hernandez MD [address] [place] [phone] 05/17/2024 8:00 EST Appointment [facility] CT Scan [address] [place], [place] [phone] 05/19/2024 13:30 EST Appointment [facility] Endoscopy [address] [place] [address] Angélica Hernandez MD [address] [phone] 05/28/2024 14:[address] [facility] Cancer Treatment [place] [address] [place], [place] [address] 05/28/2024 14:[address] [facility] [place] [address] [place], [place] [address] Kaiser Miller MD 111 [facility] 2 [place] [address] documented as of this encounter [...] REGARDING THIS REPORT PLEASE CALL [facility] AT [phone] Narrative 07/23/2023 18:50 EDT PROCEDURE INFORMATION: Exam: [...] CONCERNS REGARDING THIS REPORT PLEASE CALL [facility] [phone] us Kaiser Miller MD IMG CT ORDERABLES Final Result documented in this encounter Visit Diagnoses Diagnosis Squamous cell carcinoma of lung, right (HCC-CMS)- Primary Squamous cell carcinoma of lung, right (HCC-CMS) documented in this encounter Care Teams Baking Factory Worker Relationship Specialty Start Date End Date Elizabeth Dsouza MD [address] [place] [phone] PCP - General 02/13/12 documented as of this encounter
--- OUTSIDE RECORDS SUMMARY | 2024-03-25 15:23 | XMS_ITS | Encounter Summary ---
Author Organization [facility] Address [address] [place] [address] Care Team Providers Care Division Head Name Role Phone Elizabeth Dsouza MD Primary Care Provider [phone] Reason for Visit * Reason Comments Lung Cancer * Consult (Routine/Next Available) - Authorization Not Required Specialty Diagnoses / Procedures [facility] Referred To Contact Radiation Oncology Diagnoses Primary cancer of right upper lobe of lung (HCC-CMS) Belkis Holm MD Phone: tel: fax: Acosta Alan MD Phone: tel: fax: Referral ID Status Reason Start Date Expiration Date Visits Requested Visits Authorized [id number] Authorization Not Required Specialty Services Required 3 1 1 Encounter Details Date Type Department Care Team (Late st Contact Info) Description 08/13/2022 10:30 EDT Initial consult [facility] [address] [place] [address] Acosta Alan MD 111 [facility], Level 2 [place] [address] Squamous cell carcinoma of lung, [...] Cell Lung Cancer: Findings of an International [place] Consensus Study. Gissel Pelletier al, Practical Radiation Oncology, May-June/2017). 3. Smoking cessation was advised and we will attempt to coordinate smoking cessation counselor referral HISTORY OF PRESENT ILLNESS: Melodieprasad Hodge, who goes by Yesy, is a 67 y.o. female from [facility] who is referred for consultation regarding a [...] Holm evaluated her in thoracic surgery at [facility]. She noted that the patient had [...] climbing a flight of stairs without stopping care home up. On flat ground she does not [...] JÚNIOR ??? COPD (chronic obstructive pulmonary disease) ([facility]) 07/23/22- well controlled w/ use of inhalers [...] of the visit. Acosta Alan MD Radiation Oncology-[facility] (p) [phone] / (f) [phone] documented in this encounter Plan of Treatment Upcoming Encounters Date Type Department Care Team (Late st Contact Info) Description 04/06/2024 9:30 EST Hospital Encounter [facility] Endoscopy [address] [place], [place] [address] Angélica Hernandez MD [address] [place] [phone] 05/17/2024 8:00 EST Appointment [facility] CT Scan [address] [place], [place] [address] 05/19/2024 13:30 EST Appointment [facility] Endoscopy [address] [place], [place] [address] Angélica Hernandez MD [address] [phone] 05/28/2024 14:15 EDT Nurse Only [facility] [place] [address] [place] [address] 05/28/2024 14:30 EDT Office Visit [facility] [place] [address] [place] [address] Kaiser Miller MD [address] [place] [address] 2 [place] [address] documented as of this encounter Visit Diagnoses Diagnosis Squamous cell carcinoma of lung, right (HCC-CMS)- Primary documented in this encounter Care Teams Division Head Relationship Specialty Start Date End Date Elizabeth Dsouza MD 4 [place] [phone] PCP - General 02/13/12 documented as of this encounter
--- OUTSIDE RECORDS SUMMARY | 2024-03-25 15:23 | XMS_ITS | Encounter Summary ---
Author Organization [facility] Address [address] [place] [address] Care Team Providers Care Washer And Capper Machine Operator Name Role Phone Elizabeth Dsouza MD Primary Care Provider [phone] Encounter Details Date Type Department Care Team (Late st Contact Info) Description 08/13/2022 Documentation Visit [facility] Radiation Oncology - [address] [address] Divina Penny, ABEL Social History Tobacco Use [...] Info) Description 04/06/2024 9:30 EST Hospital Encounter [facility] Endoscopy [address] [place], [place] [address] Angélica Hernandez MD [address] [place] [phone] 05/17/2024 8:00 EST Appointment [facility] CT Scan [address] [place] [address] 05/19/2024 13:30 EST Appointment [facility] Endoscopy [address] [place], [place] [address] Angélica Hernandez MD [address] [place] [phone] 05/28/2024 14:15 EDT Nurse Only [facility] [place] [address] [place] [address] 05/28/2024 14:30 EDT Office Visit [facility] [address] [place] [address] Kaiser Miller MD 111 [facility], [facility] 2 [place] [phone] documented as of this encounter Visit Diagnoses Not on filedocumented in this encounter Care Teams Washer And Capper Machine Operator Relationship Specialty Start Date End Date Elizabeth Dsouza MD [address] [place] [phone] PCP - General 02/13/12 documented as of this encounter
--- OUTSIDE RECORDS SUMMARY | 2024-03-25 15:23 | XMS_ITS | Encounter Summary ---
Author Organization [facility] Address [address] [place] [address] Care Team Providers Care Matchbook Maker Name Role Phone Elizabeth Dsouza MD Primary Care Provider [phone] Encounter Details Date Type Department Care Team (Late st Contact Info) Description 09/06/2022 Documentation Visit [facility] Cancer Treatment [place] [address] [place] [address] Khris Watson MD [address] [facility], [facility] 2 [place] [address] Social History Tobacco Use Types [...] simulation using the same immobilization devices. A emergency medical tech was present to verify the patient's [...] target location were continuously monitored using the Divesquare RT system and direct visualization with video [...] Info) Description 04/06/2024 9:30 EST Hospital Encounter [facility] Endoscopy [address] [place], [place] [address] Angélica Hernandez MD [address] [phone] 05/17/2024 8:00 EST Appointment [facility] CT Scan 130 [place] [address] 05/19/2024 13:30 EST Appointment [facility] Endoscopy [address] [place] [address] Angélica Hernandez MD [address] [place] [phone] 05/28/2024 14:15 EDT Nurse Only [facility] Cancer Treatment [address] [phone] 05/28/2024 14:30 EDT Office Visit [facility] Cancer Treatment [address] [address] Kaiser Miller MD 111 [facility] 2 [place] [address] documented as of this encounter Visit Diagnoses Not on filedocumented in this encounter Care Teams Matchbook Maker Relationship Specialty Start Date End Date Elizabeth Dsouza MD 4 [place] [phone] PCP - General 02/13/12 documented as of this encounter
--- OUTSIDE RECORDS SUMMARY | 2024-03-25 15:23 | XMS_ITS | Encounter Summary ---
Author Organization [facility] Address [address] [place] [address] Care Team Providers Care Church Business Administrator Name Role Phone Elizabeth Dsouza MD Primary Care Provider [phone] Reason for Visit * Reason Comments Lung Cancer Encounter Details Date Type Department Care Team (Late st Contact Info) Description 11/29/2022 11:00 EDT Office Visit [facility] Cancer Treatment [address] [address] History of lung cancer (Primary Dx) Social [...] success when they work with a quit student success coach or smoking cessation counselor and if [...] is recommended. 3. No disease progression identified. [id number] I spent a total of 30 minutes [...] Info) Description 04/06/2024 9:30 EST Hospital Encounter [facility] Endoscopy [address] [place] [address] Angélica Hernandez MD [address] [phone] 05/17/2024 8:00 EST Appointment [facility] CT Scan [address] [place] [address] 05/19/2024 13:30 EST Appointment [facility] Endoscopy [address] [place] [address] Angélica Hernandez MD [address] [phone] 05/28/2024 14:15 EDT Nurse Only [facility] [address] [phone] 05/28/2024 14:30 EDT Office Visit [facility] [place] 130 [place], [place] [address] Kaiser Miller MD 111 [facility] 2 [place] [address] documented as of this encounter Visit Diagnoses Diagnosis History of lung cancer- Primary Personal history of malignant neoplasm of bronchus and lung documented in this encounter Care Teams Church Business Administrator Relationship Specialty Start Date End Date Elizabeth Dsouza MD [address] [place] [address] PCP - General 02/13/12 documented as of this encounter
--- OUTSIDE RECORDS SUMMARY | 2024-03-25 15:23 | XMS_ITS | Encounter Summary ---
Author Organization [facility] Address [address] [place] [address] Care Team Providers Care Flour Broker Name Role Phone Elizabeth Dsouza MD Primary Care Provider [phone] Reason for Referral * Referral (Routine/Next Available) - Authorization Not Required Specialty Diagnoses / Procedures Ref[facility] Referred To Contact Diagnoses Melena Procedures CAPSULE ENDOSCOPY Mahi Hernandez MD [address] [place] [phone] Phone: tel: fax: [facility] Gastroenterology [address] [place] [address] Phone: tel: fax: Referral ID Status Reason Start Date Expiration Date Visits Requested Visits Authorized [id number] Authorization Not Required 10/01/2023 1 1 Encounter Details Date Type Department Care Team (Late st Contact Info) Description 10/01/2023 Orders Only [facility] Gastroenterology [address] [place] [phone] Mahi Hernandez MD [address] [place] [phone] Melena (Primary Dx) Social History Tobacco [...] Info) Description 04/06/2024 9:30 EST Hospital Encounter [facility] Endoscopy [address] [place], [place] [phone] Mahi Hernandez MD [address] [place] [phone] 05/17/2024 8:00 EST Appointment [facility] CT Scan [address] [place], [place] [phone] 05/19/2024 13:30 EST Appointment [facility] Endoscopy [address] [place], [place] [phone] Mahi Hernandez MD [address] [place] [phone] 05/28/2024 14:15 EDT Nurse Only [facility] [address] [place] [address] 05/28/2024 14:30 EDT Office Visit [facility] [address] [place] [address] Kaiser Miller MD [address] [place] [address] 2 [place] [phone] documented as of this encounter Results * CAPSULE ENDOSCOPY (10/22/2023 8:00 EDT) Anatomical Region Laterality Modality Endoscopy Narrative 10/22/2023 8:00 EDT ?? [facility], [place], [place] [address] ?? Patient Name ?VIKRAM CLIFFORD Date of ?1955 Record Number ?[id number] Date/Time of Procedure ?10/22/2023, 08:00:00 AM Endoscopist ?Mahi Hernandez MD ?? Podopediatrician ? Referring Physician(s) ?? MAHI HERNANDEZ , [...] 03:55:05 PM By Mahi Hernandez MD M.D. us Mahi Hernandez MD GI PROCEDURE ORDERABLES Final Re sult documented in this encounter Visit Diagnoses Diagnosis Melena- Primary Blood in stool Melena Blood in stool documented in this encounter Care Teams Flour Broker Relationship Specialty Start Date End Date Elizabeth Dsouza MD [address] [place] [phone] PCP - General 02/13/12 documented as of this encounter
--- OUTSIDE RECORDS SUMMARY | 2024-03-25 15:23 | XMS_ITS | Encounter Summary ---
Author Organization [facility] Address [address] [place] [address] Care Team Providers Care Career And Technology Education Teacher Name Role Phone Elizabeth Dsouza MD Primary Care Provider [phone] Encounter Details Date Type Department Care Team (Late st Contact Info) Description 05/01/2023 Lab Requisition [facility] Pathology & Laboratory Medicine - [facility] [address] [place] [address] Outr Resulting Lab, Provider Social History Tobacco [...] Info) Description 04/06/2024 9:30 EST Hospital Encounter [facility] Endoscopy [address] [place] [address] Angélica Hernandez MD [address] [phone] 05/17/2024 8:00 EST Appointment [facility] CT Scan [address] [place] [address] 05/19/2024 13:30 EST Appointment [facility] Endoscopy [address] [place] [address] Angélica Hernandez MD [address] [place] [phone] 05/28/2024 14:15 EDT Nurse Only [facility] [address] [address] 05/28/2024 14:30 EDT Office Visit [facility] Cancer Treatment [address] [address] Kaiser Miller MD 111 [facility] 2 [place] [address] documented as of this encounter Procedures Procedure Name Priority Date/Time Associated Diagnosis Comments RO52 ANTIBODY, IGG Routine 04/30/2023 17 :30 EST SS-B (LA) ANTIBODY, IGG Routine 04/30/2023 17:30 EST ANTI NUCLEAR AB (JACQUELINE), IFA Routine 04/30/2023 17:30 EST documented in this encounter Results * SS-B (LA) ANTIBODY, IGG (04/30/2023 17:30 EST) SSB Antibody, IgG <3.3 <20.0 CU 024 13:18 EST [facility] Comment:Results were obtaine d with the [employer] QUANTA Flash SS-B chemiluminescent immunoassay. Values obtained with different manufacturers' assay methods must not be used interchangeably. Blood VENOUS BLOOD / Unknown 04/30/2023 17:30 EST 05/01/2023 18:04 EST us Provider Outr Resulting Lab IMMUNOLOGY AND SEROL OGY ORDERABLES Final Result Performing Organization Address [facility] Co de Phone Number [facility] [address] [place] [address] * RO52 ANTIBODY, IGG (04/30/2023 17:30 EST) Ro52 Anitbody, IgG 4.2 <20.0 CU 2023 13:18 EST [facility] Comment:Results were obtaine d with the [employer] QUANTA Flash Ro52 chemiluminescent immunoassay. Values obtained with different manufacturers' assay methods must not be used interchangeably. Blood VENOUS BLOOD / Unknown 04/30/2023 17:30 EST 05/01/2023 18:04 EST us Provider Outr Resulting Lab IMMUNOLOGY AND SEROL OGY ORDERABLES Final Result Performing Organization Address City/[facility] Co de Phone Number [facility] [address] [place] [address] * ANTI NUCLEAR AB (JACQUELINE), IFA (04/30/2023 17:30 EST) JACQUELINE Interpretation Negative Negative 2023 14:22 EST [facility] Comment:No titer performed, JACQUELINE Screen is negative. Blood VENOUS BLOOD / Unknown 04/30/2023 17:30 EST 05/01/2023 18:04 EST Narrative [facility] - 05/02/2023 14:22 EST Results were obtained with the [employer] NOVA Lite HEp-2 JACQUELINE Kit by indirect immunofluorescence. us Provider Outr Resulting Lab IMMUNOLOGY AND SEROL OGY ORDERABLES Final Result Performing Organization Address City/State/[facility] Co de Phone Number [facility] [address] [place] [address] documented in this encounter Visit Diagnoses Not on filedocumented in this encounter Care Teams Career And Technology Education Teacher Relationship Specialty Start Date End Date Elizabeth Dsouza MD [address] [place] [phone] PCP - General 02/13/12 documented as of this encounter
--- OUTSIDE RECORDS SUMMARY | 2024-03-25 15:23 | XMS_ITS | Encounter Summary ---
Author Organization [facility] Address [address] [place] [address] Care Team Providers Care Toll Testboard Worker Name Role Phone Elizabeth Dsouza MD Primary Care Provider [phone] Reason for Referral * Radiology Services (Routine/Next Available) - Authorization Not Required Specialty Diagnoses / Procedures [facility] Referred To Contact Diagnoses Malignant neoplasm of right lung, unspecified part of lung (HCC-CMS) Procedures CT CHEST WO CONTRAST Kaiser Miller MD Phone: tel: fax: [facility] Referral ID Status Reason Start Date Expiration Date Visits Requested Visits Authorized [id number] Authorization Not Required 07/25/2023 1 1 Reason for Visit * Reason Comments Lung Cancer Encounter Details Date Type Department Care Team (Late st Contact Info) Description 07/25/2023 8:45 EDT Nurse Only [facility] [place] [facility] Treatment [place] [address] [place] [address] Malignant neoplasm of right lung, unspecified part [...] Info) Description 04/06/2024 9:30 EST Hospital Encounter [facility] Endoscopy [address] [place], [place] [address] Angélica Hernandez MD [address] [place] [phone] 05/17/2024 8:00 EST Appointment [facility] CT Scan [address] [place] [phone] 05/19/2024 13:30 EST Appointment [facility] Endoscopy [address] [place] [address] Angélica Hernandez MD [address] [place] [phone] 05/28/2024 14:15 EDT Nurse Only [facility] [place] [facility] Treatment [place] [address] [place], [place] [address] 05/28/2024 14:30 EDT Office Visit [facility] [address] [place], [place] [address] Kaiser Miller MD 111 [facility] 2 [place] [phone] documented as of this encounter [...] Recommend short-term 1 month follow-up chest CT. [id number] Narrative 01/26/2024 11:[address] CHEST WO [...] No suspicious osseous lesion Resulting Agency Comment [id number] Procedure Note Nelson Addison MD - 01/26/2024 [...] right upper lobe nodular opacity (series 3 [id number]). * Two new nearby superior segment left [...] excluded. Recommend short-term 1 month follow-upchest CT. [id number] Kaiser Miller MD IMG CT ORDERABLES Final Result documented in this encounter Visit Diagnoses Diagnosis Malignant neoplasm of right lung, unspecified part of lung (HCC-CMS)- Primary Malignant neoplasm of right lung, unspecified part of lung (HCC-CMS) documented in this encounter Care Teams Toll Testboard Worker Relationship Specialty Start Date End Date Elizabeth Dsouza MD [address] [place] [address] PCP - General 02/13/12 documented as of this encounter
--- OUTSIDE RECORDS SUMMARY | 2024-03-25 15:23 | XMS_ITS | Encounter Summary ---
Author Organization [facility] Address [address] [place] [address] Care Team Providers Care Manager Proposal Name Role Phone Elizabeth Dsouza MD Primary Care Provider [phone] Reason for Referral * Referral (Routine/Next Available) - Authorization Not Required Specialty Diagnoses / Procedures Referred By Loli rose Referred To Contact Diagnoses Dysphagia, unspecified type Procedures UPPER ENDOSCOPY (EGD) Elizabeth Dsouza MD [address] [place] [phone] Phone: tel: fax: Referral ID Status Reason Start Date Expiration Date Visits Requested Visits Authorized [id number] Authorization Not Required 05/02/2023 1 1 Reason for Visit * Auth/Cert (Routine) Specialty Diagnoses / Procedures [facility] Referred To Contact Referral ID Status Reason Start Date Expiration Date Visits Re quested Visits Authorized [id number] 1 1 Encounter Details Date Type Department Care Team (Late st Contact Info) Description 10/01/2023 9:23 EDT - 10/01/2023 23:59 EDT Hospital Encounter [facility] Endoscopy [address] [place] [address] Angélica Hernandez MD [address] [phone] Dysphagia, unspecified type Discharge Disposition: [...] & Physical Date: 10/01/2023 Time: 12:25 Location: [facility] Endoscopy Planned Procedure: Upper Endoscopy Chief [...] 2 JÚNIOR COPD (chronic obstructive pulmonary disease) ([facility]) 07/23/22- well controlled w/ use of [...] Info) Description 04/06/2024 9:30 EST Hospital Encounter [facility] Endoscopy [address] [place], [place] [address] Angélica Hernandez MD [address] [place] [phone] 05/17/2024 8:00 EST Appointment [facility] CT Scan [address] [place], [place] [phone] 05/19/2024 13:30 EST Appointment [facility] Endoscopy [address] [place] [address] Angélica Hernandez MD [address] [place] [phone] 05/28/2024 14:15 EDT Nurse Only [facility] Cancer [address] [phone] 05/28/2024 14:30 EDT Office Visit [facility] Cancer [address] [phone] Kaiser Miller MD [address] [place] [address], Level [address] [place] [phone] documented as of this encounter Procedures Procedure Name Priority Date/Time Associated Diagnosis Comments ECG REPORT - SCANNED 10/03/2023 11:20 EDT SURGICAL PATHOLOGY Routine 10/01/2023 12 :41 EDT Dysphagia, unspecified type UPPER ENDOSCOPY (EGD) Routine 10/01/2023 10:30 EDT Dysphagia, unspecified type documented in this encounter Results * ECG REPORT - SCANNED (10/03/2023 11:20 EDT) 10/03/2023 11:2 0 EDT us Scan 2 Gauger Delivery PROCEDURE/MINOR SURGICAL OR DERABLES Final Result * SURGICAL PATHOLOGY (10/01/2023 12:41 EDT) Note to Patient The following pathology results have been interpreted by your pathologist and may be available to you before your health provider has had the opportunity to review them. Please allow time for your provider to receive these results and explore management options, if applicable. 10/02/2023 14:48 [facility] Final Diagnosis A. DISTAL ESOPHAGUS BIOPSY: - Squamous mucosa with mild chronic inactive esophagitis and reactive changes. - Negative for eosinophilia. B. PROXIMAL ESOPHAGUS BIOPSY: - Squamous mucosa with mild chronic inactive esophagitis and reactive changes. - Negative for eosinophilia. 10/02/2023 14:48 [facility] Attestation By the signature below, the attending physician certifies that they have 1) personally conducted a gross and/or microscopic examination of the described specimen(s), and/or personally interpreted the results of laboratory testing of the described specimen(s), and 2) personally rendered or confirmed the above diagnosis. 10/02/2023 14:48 [facility] at 1448 Clinical History Dysphagia, unspecified type 10/02/2023 14:48 EDT [facility] Gross Description [...] pale franco tissue. In toto, B1. CHENG LEIVA([facility]) 10/01/2023 14:41 10/02/2023 14:48 EDT [facility] Performing Lab [facility] 10/02/2023 14:48 EDT [facility] Scanned Images 10/02/2023 14:48 EDT [facility] Tissue ESOPHAGEAL STRUCTURE / Unknown 10/01/2023 12:41 EDT 10/01/2023 14:31 EDT Tissue specimen (specimen) ESOPHAGEAL STRUCTURE / Unknown 10/01/2023 12:41 EDT 10/01/2023 14:31 EDT us Angélica Hernandez MD PATHOLOGY ORDERABLES Final Resul t [facility] [address] [place] [address] * UPPER ENDOSCOPY (EGD) (10/01/2023 10:30 EDT) Anatomical Region Laterality Modality Endoscopy Narrative 10/01/2023 10:30 EDT [facility] ?? [address] [address] ?? Patient Name ?MELODIERACHEL CLIFFORD Date of ?1955 Record Number ?[id number] Date/Time of Procedure ?10/01/2023, 10:30:00 AM Endoscopist ?Angélica Hernandez MD ?? Inventory Checker ? Referring Physician(s) ?? Elizabeth Dsouza M.D. Anesthesiologist ? Procedure Performed: Upper Endoscopy (EGD) Indications for Exam: dysphagia, melena Instruments: ? [id number] ([id number]) Medications: ?Fentanyl 100 mcg, Versed 5 mg, [...] signed on 10/01/2023 12:45:59 PM By Angélica Hernandez, MD M.D. us Elizabeth Dsouza MD GI PROCEDURE ORDERABLES Final [...] 09/30 documented in this encounter Care Teams Manager Proposal Relationship Specialty Start Date End Date Elizabeth Dsouza MD [address] [place] [address] PCP - General 02/13/12 documented as of this encounter
--- OUTSIDE RECORDS SUMMARY | 2024-03-25 15:23 | XMS_ITS | Encounter Summary ---
Author Organization [facility] Address [address] [place] [address] Care Team Providers Care Real Estate Agent/Broker Name Role Phone Elizabeth Dsouza MD Primary Care Provider [phone] Encounter Details Date Type Department Care Team (Late st Contact Info) Description 09/06/2022 11:00 EDT - 09/06/2022 23:59 EDT Hospital Encounter [facility] Cancer Treatment [place] [address] [place] [address] Acosta Alan MD [address] [place] [address] 2 [place] [phone] Discharge Disposition: Home or Self [...] Info) Description 04/06/2024 9:30 EST Hospital Encounter [facility] Endoscopy [address] [place] [address] Angélica Hernandez MD [address] [place] [phone] 05/17/2024 8:00 EST Appointment [facility] CT Scan [address] [place], [place] [address] 05/19/2024 13:30 EST Appointment [facility] Endoscopy [address] [place] [address] Angélica Hernandez MD [address] [phone] 05/28/2024 14:15 EDT Nurse Only [facility] Cancer Treatment [address] [phone] 05/28/2024 14:30 EDT Office Visit [facility] Cancer [address] [address] Kaiser Miller MD 111 [facility] 2 [place] [phone] documented as of this encounter Visit Diagnoses Not on filedocumented in this encounter Care Teams Real Estate Agent/Broker Relationship Specialty Start Date End Date Elizabeth Dsouza MD 4 [place] [phone] PCP - General 02/13/12 documented as of this encounter
--- OUTSIDE RECORDS SUMMARY | 2024-03-25 15:23 | XMS_ITS | Encounter Summary ---
Author Organization [facility] Address [address] [place] [address] Care Team Providers Care Editor Magazine Name Role Phone Elizabeth Dsouza MD Primary Care Provider [phone] Encounter Details Date Type Department Care Team (Late st Contact Info) Description 12/10/2022 Documentation Visit [facility] Cancer Treatment [place] [address] [place] [address] Divina Penny, ABEL Social History Tobacco Use [...] Info) Description 04/06/2024 9:30 EST Hospital Encounter [facility] Endoscopy [address] [place] [address] Angélica Hernandez MD [address] [place] [phone] 05/17/2024 8:00 EST Appointment [facility] CT Scan [address] [place], [place] [phone] 05/19/2024 13:30 EST Appointment [facility] Endoscopy [address] [place] [address] Angélica Hernandez MD [address] [place] [phone] 05/28/2024 14:15 EDT Nurse Only [facility] Cancer Treatment [address] [phone] 05/28/2024 14:30 EDT Office Visit [facility] Cancer Treatment [address] [address] Kaiser Miller MD 111 [facility] 2 [place] [phone] documented as of this encounter Visit Diagnoses Not on filedocumented in this encounter Care Teams Editor Magazine Relationship Specialty Start Date End Date Elizabeth Dsouza MD 4 [facility] [place] [phone] PCP - General 02/13/12 documented as of this encounter
--- OUTSIDE RECORDS SUMMARY | 2024-03-25 15:23 | XMS_ITS | Encounter Summary ---
Author Organization [facility] Address [address] [place] [address] Care Team Providers Care Continuous Pickling Line Pickler Helper Name Role Phone Elizabeth Dsouza MD Primary Care Provider [phone] Encounter Details Date Type Department Care Team (Late st Contact Info) Description 09/09/2022 10:15 EDT - 09/09/2022 23:59 EDT Hospital Encounter [facility] Treatment [place] [address] [place] [address] Acosta Alan MD 111 [facility] 2 [place] [phone] Discharge Disposition: Home or Self [...] of Assessment Author No 12/28/2021 16:46 EDT Hcétor Boyd, RN * Because of a physical, [...] Melodie Hodge Date of : 1955 MR#: [id number] MD: Too Alan MD Diagnosis: Cancer Staging [...] chest. Signed By: Acosta Alan MD Radiation Oncology[facility] (p) [phone] / (f) [phone] documented in this encounter Plan of Treatment Upcoming Encounters Date Type Department Care Team (Late st Contact Info) Description 04/06/2024 9:30 EST Hospital Encounter [facility] Endoscopy [address] [place] [address] Angélica Hernandez MD [address] [place] [phone] 05/17/2024 8:00 EST Appointment [facility] CT Scan [address] [place] [address] 05/19/2024 13:30 EST Appointment [facility] Endoscopy [address] [place] [address] Angélica Hernandez MD [address] [place] [phone] 05/28/2024 14:15 EDT Nurse Only [facility] Cancer Treatment [address] [address] 05/28/2024 14:30 EDT Office Visit [facility] Cancer Treatment [address] [address] Kaiser Miller MD 111 [facility] 2 [place] [phone] documented as of this encounter Visit Diagnoses Not on filedocumented in this encounter Care Teams Continuous Pickling Line Pickler Helper Relationship Specialty Start Date End Date Elizabeth Dsouza MD [address] [place] [phone] PCP - General 02/13/12 documented as of this encounter
--- OUTSIDE RECORDS SUMMARY | 2024-03-25 15:23 | XMS_ITS | Encounter Summary ---
Author Organization [facility] Address [address] [place] [address] Care Team Providers Care Airveyor Operator Name Role Phone Elizabeth Dsouza MD Primary Care Provider [phone] Encounter Details Date Type Department Care Team (Late st Contact Info) Description 09/04/2022 Results Only [facility] Radiation Oncology - [address] [phone] Unknown, Provider, Social History Tobacco Use Types [...] Info) Description 04/06/2024 9:30 EST Hospital Encounter [facility] Endoscopy [address] [place] [address] Angélica Hernandez MD [address] [place] [phone] 05/17/2024 8:00 EST Appointment [facility] CT Scan [address] [place] [address] 05/19/2024 13:30 EST Appointment [facility] Endoscopy [address] [place] [address] Angélica Hernandez MD [address] [place] [phone] 05/28/2024 14:15 EDT Nurse Only [facility] Cancer Treatment [address] [phone] 05/28/2024 14:30 EDT Office Visit [facility] Cancer Treatment [address] [phone] Kaiser Miller MD [address] [place] [address] 2 [place] [phone] documented as of this encounter [...] on filedocumented in this encounter Care Teams Airveyor Operator Relationship Specialty Start Date End Date Elizabeth Dsouza MD [address] [place] [phone] PCP - General 02/13/12 documented as of this encounter
--- OUTSIDE RECORDS SUMMARY | 2024-03-25 15:23 | XMS_ITS | Encounter Summary ---
Author Organization [facility] Address [address] [place] [address] Care Team Providers Care Granite Chip Terrazzo Finisher Name Role Phone Elizabeth Dsouza MD Primary Care Provider [phone] Encounter Details Date Type Department Care Team (Latest Contact Info) Description 09/03/2022 17:00 EDT - 09/03/2022 23:59 EDT Hospital Encounter [facility] Cancer Treatment [place] [address] [place] [address] Discharge Disposition: Home or Self Care Social [...] Info) Description 04/06/2024 9:30 EST Hospital Encounter [facility] Endoscopy [address] [place] [address] Angélica Hernandez MD [address] [place] [phone] 05/17/2024 8:00 EST Appointment [facility] CT Scan [address] [place] [address] 05/19/2024 13:30 EST Appointment [facility] Endoscopy [address] [place] [address] Angélica Hernandez MD [address] [phone] 05/28/2024 14:15 EDT Nurse Only [facility] Cancer [facility] 130 [place] [address] 05/28/2024 14:30 EDT Office Visit [facility] Cancer [facility] [address] [place] [address] Kaiser Miller MD 111 [facility], [facility] 2 [place] [address] documented as of this encounter Visit Diagnoses Not on filedocumented in this encounter Care Teams Granite Chip Terrazzo Finisher Relationship Specialty Start Date End Date Elizabeth Dsouza MD [address] [place] [phone] PCP - General 02/13/12 documented as of this encounter
--- OUTSIDE RECORDS SUMMARY | 2024-03-25 15:23 | XMS_ITS | Encounter Summary ---
Author Organization [facility] Address [address] [place] [address] Care Team Providers Care Ekg Technician Name Role Phone Elizabeth Dsouza MD Primary Care Provider Reason for Referral * Radiology Services (Routine/Next Available) - Authorization Not Required Specialty Diagnoses / Procedures [facility] Referred To Contact Diagnoses Squamous cell carcinoma of lung, right (HCC-CMS) Procedures CT CHEST WO CONTRAST Acosta Alan MD Phone: tel: fax: [facility] Referral ID Status Reason Start Date Expiration Date Visits Requested Visits Authorized [id number] Authorization Not Required 09/09/2022 1 1 Encounter Details Date Type Department Care Team (Late st Contact Info) Description 09/09/2022 Radiation Therapy Visit [facility] [address] [place] [address] Acosta Alan MD 111 [facility], Level 2 [place] [address] Squamous cell carcinoma of lung, [...] Melodie Hodge Date of : 1955 MR#: [id number] MD: Too Alan MD Diagnosis: Cancer Staging [...] chest. Signed By: Acosta Alan MD Radiation Oncology-[facility] (p) [phone] / (f) [phone] documented in this encounter Plan of Treatment Upcoming Encounters Date Type Department Care Team (Late st Contact Info) Description 04/06/2024 9:30 EST Hospital Encounter [facility] Endoscopy [address] [place] [address] Angélica Hernandez MD [address] [place] [phone] 05/17/2024 8:00 EST Appointment [facility] CT Scan [address] [place], [place] [address] 05/19/2024 13:30 EST Appointment [facility] Endoscopy [address] [place], [place] [address] Angélica Hernandez MD [address] [place] [phone] 05/28/2024 14:15 EDT Nurse Only [facility] [address] [place] [address] 05/28/2024 14:30 EDT Office Visit [facility] [address] [place] [address] Kaiser Miller MD 111 [facility] 2 [place] [address] documented as of this encounter [...] is recommended. 3. No disease progression identified. [id number] Narrative 11/19/2022 12:00 EDT INDICATION: s/p SABR [...] is recommended. 3. No disease progression identified. [id number] us Acosta Alan MD IMG CT ORDERABLES Final R esult documented in this encounter Visit Diagnoses Diagnosis Squamous cell carcinoma of lung, right (HCC-CMS)- Primary Squamous cell carcinoma of lung, right (HCC-CMS) documented in this encounter Care Teams Ekg Technician Relationship Specialty Start Date End Date Elizabeth Dsouza MD [address] [place] [address] PCP - General 02/13/12 documented as of this encounter
--- OUTSIDE RECORDS SUMMARY | 2024-03-25 15:23 | XMS_ITS | Encounter Summary ---
Author Organization [facility] Address [address] [place] [address] Care Team Providers Care Attendant Campground Name Role Phone Elizabeth Dsouza MD Primary Care Provider [phone] Encounter Details Date Type Department Care Team (Late st Contact Info) Description 12/10/2022 Orders Only [facility] Cancer Treatment [place] [address] [place] [address] Acosta Alan MD 111 [facility], [facility] 2 [place] [address] Squamous cell carcinoma of lung, [...] Description 04/06/2024 9:30 EST Hospital Encounter [facility] Endoscopy [address] [place] [address] Angélica Hernandez MD [address] [phone] 05/17/2024 8:00 EST Appointment [facility] CT Scan [address] [place] [address] 05/19/2024 13:30 EST Appointment [facility] Endoscopy [address] [place] [address] Angélica Hernandez MD [address] [phone] 05/28/2024 14:15 EDT Nurse Only [facility] Cancer Treatment [place] [address] [place], [place] [address] 05/28/2024 14:30 EDT Office Visit [facility] Cancer Treatment [place] [address] [place], [place] [address] Kaiser Miller MD 111 [facility] 2 [place] [address] documented as of this encounter Visit Diagnoses Diagnosis Squamous cell carcinoma of lung, right (HCC-[facility])- Primary documented in this encounter Care Teams Attendant Campground Relationship Specialty Start Date End Date Elizabeth Dsouza MD [address] [place] [phone] PCP - General 02/13/12 documented as of this encounter
--- OUTSIDE RECORDS SUMMARY | 2024-03-25 15:23 | XMS_ITS | Encounter Summary ---
Author Organization [facility] Address [address] [place] [address] Care Team Providers Care Teacher Visually Impaired Name Role Phone Elizabeth Dsouza MD Primary Care Provider [phone] Reason for Visit * Reason Onset Date Comments Appointment Related 12/27/2022 Tobacco Cess ation - Rad Onc Encounter Details Date Type Department Care Team (Late st Contact Info) Description 12/27/2022 Telephone [facility] Cancer Treatment [place] [address] [place], [place] [address] Diana Coving[place] 130 [place] [address] Appointment Related (Tobacco Cessation - Rad Onc) [...] Info) Description 04/06/2024 9:30 EST Hospital Encounter [facility] Endoscopy [address] [place] [address] Angélica Hernandez MD [address] [place] [phone] 05/17/2024 8:00 EST Appointment [facility] CT Scan [address] [place] [address] 05/19/2024 13:30 EST Appointment [facility] Endoscopy [address] [place] [address] Angélcia Hernandez MD [address] [place] [phone] 05/28/2024 14:15 EDT Nurse Only [facility] Cancer Treatment [place] [address] [place] [address] 05/28/2024 14:30 EDT Office Visit [facility] [address] [place] [address] Kaiser Miller MD [address] [facility], Level 2 [place] [address] documented as of this encounter Visit Diagnoses Not on filedocumented in this encounter Care Teams Teacher Visually Impaired Relationship Specialty Start Date End Date Elizabeth Dsouza MD [address] [place] [phone] PCP - General 02/13/12 documented as of this encounter
--- OUTSIDE RECORDS SUMMARY | 2024-03-25 15:23 | XMS_ITS | Encounter Summary ---
Author Organization [facility] Address [address] [place] [address] Care Team Providers Care Back Roll Lathe Operator Name Role Phone Elizabeth Dsouza MD Primary Care Provider [phone] Reason for Visit * Reason Onset Date Comments Appointment Related 08/01/2022 Encounter Details Date Type Department Care Team (Late st Contact Info) Description 08/01/2022 Telephone [facility] - [address] [phone] Belkis Holm MD [address] [place] [address], Level [address] [place] [address] Appointment Related Social History Tobacco [...] Telephone Encounter - Uma Portillo - 08/01/2022 1963 EDT Called and left message for patient to call to confirm the appointment for FridayAugust 05 at 2:00 for her breathing test and 3:[address] Holm. This is up on the 5th floor [facility] in the Medicine out patient clinic. documented in this encounter Plan of Treatment Upcoming Encounters Date Type Department Care Team (Late st Contact Info) Description 04/06/2024 9:30 EST Hospital Encounter [facility] Endoscopy [address] [place] [address] Angélica Hernandez MD [address] [phone] 05/17/2024 8:00 EST Appointment [facility] CT Scan [address] [place] [address] 05/19/2024 13:30 EST Appointment [facility] Endoscopy [address] [place] [address] Angélica Hernandez MD [address] [phone] 05/28/2024 14:15 EDT Nurse Only [facility] Cancer Treatment [place] 130 [place], [place] [address] 05/28/2024 14:30 EDT Office Visit [facility] Cancer Treatment [place] [address] [place], [place] [address] Kaiser Miller MD 111 [facility], [facility] 2 [place] [address] documented as of this encounter Visit Diagnoses Not on filedocumented in this encounter Care Teams Back Roll Lathe Operator Relationship Specialty Start Date End Date Elizabeth Dsouza MD [address] [place] [phone] PCP - General 02/13/12 documented as of this encounter
--- OUTSIDE RECORDS SUMMARY | 2024-03-25 15:23 | XMS_ITS | Encounter Summary ---
Author Organization [facility] Address [address] [place] [address] Care Team Providers Care Car Pincher Name Role Phone Elizabeth Dsouza MD Primary Care Provider [phone] Reason for Referral * Consult (Routine/Next Available) - Authorization Not Required Specialty Diagnoses / Procedures Referred By Loli rose Referred To Contact Radiation Oncology Diagnoses Primary cancer of right upper lobe of lung (HCC-CMS) Belkis Holm MD Phone: tel: fax: Acosta Alan MD Phone: tel: fax: Referral ID Status Reason Start Date Expiration Date Visits Requested Visits Authorized [id number] Authorization Not Required Specialty Services Required 3 1 1 Question Answer Reason for Request: RUL early stage squamous cell carcinoma, eval for radiation treatment Reason for Visit * Reason Comments New Patient Visit Encounter Details Date Type Department Care Team (Late st Contact Info) Description 08/05/2022 15:00 EDT Office Visit [facility] Cardiothoracic Surgery - [address] [address] Belkis Holm MD [address] [place] [address], Level 5 [place] [address] Primary cancer of right upper lobe of [...] Holm MD - 08/05/2022 1500 EDT [facility] Thoracic Surgery Services Clinic Visit Note [...] JÚNIOR ??? COPD (chronic obstructive pulmonary disease) ([facility]) 07/23/22- well controlled w/ use of [...] skull base to upper thighs using a [email or web address] digital PET/CT system. The blood glucose level [...] treatment. Will refer to Dr. Alan at [facility] for evaluation. - Encouraged smoking cessation Belkis Holm MD documented in this encounter Plan of Treatment Upcoming Encounters Date Type Department Care Team (Late st Contact Info) Description 04/06/2024 9:[address] [facility] Endoscopy [address] [place], [place] [address] Angélica Hernandez MD [address] [place] [phone] 05/17/2024 8:[address] [facility] CT Scan [address] [place] [address] 05/19/2024 13:[address] [facility] Endoscopy [address] [place] [address] Angélica Hernandez MD [address] [phone] 05/28/2024 14:15 EDT Nurse Only [facility] Cancer Treatment [place] 130 [place] [address] 05/28/2024 14:30 EDT Office Visit [facility] Cancer [facility] 130 [place], [place] [address] Kaiser Miller MD 111 [facility] 2 [place] [address] Scheduled Referrals Name Type Priority Associated Diagnoses Order Schedule AMB CONS/FOLLOW UP RADIATION ONCOLOGY Outpatient Referral Routine/Next Available Primary cancer of right upper lobe of lung (HCC-CMS) Expected: 08/12/2022 (Approximate), Expires: 08/06/2023 documented as of this encounter Visit Diagnoses Diagnosis Primary cancer of right upper lobe of lung (HCC-CMS)- Primary documented in this encounter Care Teams Car Pincher Relationship Specialty Start Date End Date Elizabeth Dsouza MD [address] [place] [phone] PCP - General 02/13/12 documented as of this encounter"
--- OUTSIDE RECORDS SUMMARY | 2024-03-25 15:23 | XMS_ITS | Encounter Summary ---
Author Organization [facility] Address [address] [place] [address] Care Team Providers Care Packaging Engineer Name Role Phone Elizabeth Dsouza MD Primary Care Provider [phone] Encounter Details Date Type Department Care Team (Late st Contact Info) Description 09/04/2022 11:00 EDT - 09/04/2022 23:59 EDT Hospital Encounter [facility] Cancer Treatment [place] [address] [place] [address] Acosta Alan MD [address] [place] [address] 2 [place] [address] Discharge Disposition: Home or Self [...] Info) Description 04/06/2024 9:30 EST Hospital Encounter [facility] Endoscopy [address] [place] [address] Angélica Hernandez MD [address] [place] [phone] 05/17/2024 8:00 EST Appointment [facility] CT Scan [address] [place], [place] [phone] 05/19/2024 13:30 EST Appointment [facility] Endoscopy [address] [place] [address] Angélica Hernandez MD [address] [phone] 05/28/2024 14:15 EDT Nurse Only [facility] Cancer Treatment [address] [phone] 05/28/2024 14:30 EDT Office Visit [facility] Cancer [address] [address] Kaiser Miller MD 111 [facility] 2 [place] [address] documented as of this encounter Visit Diagnoses Not on filedocumented in this encounter Care Teams Packaging Engineer Relationship Specialty Start Date End Date Elizabeth Dsouza MD 4 [facility] [place] [phone] PCP - General 02/13/12 documented as of this encounter
--- OUTSIDE RECORDS SUMMARY | 2024-03-25 15:23 | XMS_ITS | Encounter Summary ---
Author Organization [facility] Address [address] [place] [address] Care Team Providers Care Agricultural Research Engineer Name Role Phone Elizabeth sDouza MD Primary Care Provider [phone] Reason for Visit * Reason Comments Cancer Encounter Details Date Type Department Care Team (Late st Contact Info) Description 07/25/2023 9:00 EDT Office Visit [facility] [address] [place] [address] Marci Ricks MD 111 [facility] 2 [place] [address] History of lung cancer (Primary [...] Staging Squamous cell carcinoma of lung, right ([facility]) Staging form: Lung, AJCC 8th Edition [...] is recommended. 3. No disease progression identified. [id number] I spent a total of 30 minutes [...] Info) Description 04/06/2024 9:30 EST Hospital Encounter [facility] Endoscopy [address] [place] [address] Angélica Hernandez MD [address] [place] [phone] 05/17/2024 8:00 EST Appointment [facility] CT Scan [address] [place] [address] 05/19/2024 13:30 EST Appointment [facility] Endoscopy [address] [place] [address] Angélica Hernandez MD [address] [place] [phone] 05/28/2024 14:15 EDT Nurse Only [facility] Life Cancer Treatment [place] [address] [place], [place] [address] 05/28/2024 14:30 EDT Office Visit [facility] Cancer [address] [address] Kaiser Miller MD [address] [place], [place] [address], Level 2 [place] [phone] documented as of this encounter Visit Diagnoses Diagnosis History of lung cancer- Primary Personal history of malignant neoplasm of bronchus and lung documented in this encounter Care Teams Agricultural Research Engineer Relationship Specialty Start Date End Date Elizabeth Dsouza MD 4 [place] [address] PCP - General 02/13/12 documented as of this encounter
--- OUTSIDE RECORDS SUMMARY | 2024-03-25 15:23 | XMS_ITS | Encounter Summary ---
Author Organization [facility] Address [address] [place] [address] Care Team Providers Care Pulmonary Function Technician Name Role Phone Elizabeth Dsouza MD Primary Care Provider [phone] Reason for Referral * (Routine/Next Available) - New Request Specialty Diagnoses / Procedures [facility] Referred To Contact Diagnoses Malignant neoplasm of unspecified part of right bronchus or lung (HCC-CMS) Procedures CT SIM EXAM Acosta Alan MD Phone: tel: fax: [facility] [place] [place] Referral ID Status Reason Start Date Expiration Date V isits Requested Visits Authorized [id number] New Request 08/15/2022 1 1 Reason for Visit * (Routine/Next Available) - New Request Specialty Diagnoses / Procedures [facility] Referred To Contact Diagnoses Malignant neoplasm of unspecified part of right bronchus or lung (HCC-CMS) Procedures CT SIM EXAM Acosta Alan MD Phone: tel: fax: [facility] [place] [place] Referral ID Status Reason Start Date Expiration Date V isits Requested Visits Authorized [id number] New Request 08/15/2022 1 1 Encounter Details Date Type Department Care Team (Latest Contact Info) Description 08/21/2022 13:00 EDT - 08/21/2022 23:59 EDT Hospital Encounter [facility] [address] [place] [address] Malignant neoplasm of unspecified part of right [...] Info) Description 04/06/2024 9:30 EST Hospital Encounter [facility] Endoscopy [address] [place] [address] Angélica Hernandez MD [address] [phone] 05/17/2024 8:00 EST Appointment [facility] CT Scan [address] [place] [address] 05/19/2024 13:30 EST Appointment [facility] Endoscopy [address] [place] [address] Angélica Hernandez MD [address] [phone] 05/28/2024 14:15 EDT Nurse Only [facility] Life Cancer Treatment [place] [address] [place], [place] [address] 05/28/2024 14:30 EDT Office Visit [facility] Cancer Treatment [place] [address] [place], [place] [address] Kaiser Miller MD 111 [facility] 2 [place] [address] documented as of this encounter [...] (HCC-CMS) documented in this encounter Care Teams Pulmonary Function Technician Relationship Specialty Start Date End Date Elizabeth Dsouza MD [address] [place] [address] PCP - General 02/13/12 documented as of this encounter
--- OUTSIDE RECORDS SUMMARY | 2024-03-25 15:23 | XMS_ITS | Encounter Summary ---
Author Organization [facility] Address [address] [place] [address] Care Team Providers Care Water Safety Teacher Name Role Phone Elizabeth Dsouza MD Primary Care Provider Encounter Details Date Type Department Care Team (Late st Contact Info) Description 08/21/[address] [facility] Cancer Treatment [place] [address] [place] [address] Lorraine Pan, ABEL Social History Tobacco Use [...] Lorraine Pan, RN - 08/21/2022 1414 EDT [facility] Patient Education/Needs Assessment Date: 08/21/22 What [...] preferred method of learning? Patient's primary language: Wallisian Does the patient require an head grinder? No Does the patient have any barriers [...] [x] MARIA E Radiation Therapy for LUNG [x][facility]-specific information Audio/Visual [] MARIA E RT Answers: [...] Info) Description 04/06/2024 9:30 EST Hospital Encounter [facility] Endoscopy [address] [place] [address] Angélica Hernandez MD [address] [place] [phone] 05/17/2024 8:00 EST Appointment [facility] CT Scan [address] [place] [address] 05/19/2024 13:30 EST Appointment [facility] Endoscopy [address] [place] [address] Angélica Hernandez MD [address] [place] [phone] 05/28/2024 14:15 EDT Nurse Only [facility] Life Cancer Treatment [address] [phone] 05/28/2024 14:30 EDT Office Visit [facility] Cancer Treatment [address] [address] Kaiser Miller MD 111 [facility] 2 [place] [address] documented as of this encounter Visit Diagnoses Not on filedocumented in this encounter Care Teams Water Safety Teacher Relationship Specialty Start Date End Date Elizabeth Dsouza MD 4 [facility] [place] [phone] PCP - General 02/13/12 documented as of this encounter
--- OUTSIDE RECORDS SUMMARY | 2024-03-25 15:23 | XMS_ITS | Encounter Summary ---
Author Organization [facility] Address [address] [place] [address] Care Team Providers Care Copper Plate Lithographer Name Role Phone Elizabeth Dsouza MD Primary Care Provider [phone] Encounter Details Date Type Department Care Team (Late st Contact Info) Description 09/09/2022 Results Only [facility] Radiation Oncology - [address] [phone] Unknown, Provider, Social History Tobacco Use Types [...] Info) Description 04/06/2024 9:30 EST Hospital Encounter [facility] Endoscopy [address] [place] [address] Angélica Hernandez MD [address] [place] [phone] 05/17/2024 8:00 EST Appointment [facility] CT Scan [address] [place] [address] 05/19/2024 13:30 EST Appointment [facility] Endoscopy [address] [place] [address] Angélica Hernandez MD [address] [place] [phone] 05/28/2024 14:15 EDT Nurse Only [facility] Life Cancer Treatment [address] [phone] 05/28/2024 14:30 EDT Office Visit [facility] Cancer Treatment [address] [phone] Kaiser Miller MD [address] [place] [address] 2 [place] [address] documented as of this encounter [...] on filedocumented in this encounter Care Teams Copper Plate Lithographer Relationship Specialty Start Date End Date Elizabeth Dsouza MD [address] [place] [address] PCP - General 02/13/12 documented as of this encounter
--- OUTSIDE RECORDS SUMMARY | 2024-03-25 15:23 | XMS_ITS | Encounter Summary ---
Author Organization [facility] Address [address] [place] [address] Care Team Providers Care Research Worker Encyclopedia Name Role Phone Elizabeth Dsouza MD Primary Care Provider [phone] Reason for Referral * Radiology Services (Routine/Next Available) - Authorization Not Required Specialty Diagnoses / Procedures Referred By [facility] t Referred To Contact Diagnoses Squamous cell carcinoma of lung, right (HCC-CMS) Procedures CT CHEST WO CONTRAST Acosta Alan MD Phone: tel: fax: [facility] Referral ID Status Reason Start Date Expiration Date Visits Requested Visits Authorized [id number] Authorization Not Required 09/09/2022 1 1 Reason for Visit * Radiology Services (Routine/Next Available) - Authorization Not Required Specialty Diagnoses / Procedures Referred By [facility] Referred To Contact Diagnoses Squamous cell carcinoma of lung, right (HCC-CMS) Procedures CT CHEST WO CONTRAST Acosta Alan MD Phone: tel: fax: [facility] Referral ID Status Reason Start Date Expiration Date Visits Requested Visits Authorized [id number] Authorization Not Required 09/09/2022 1 1 Encounter Details Date Type Department Care Team (Latest Contact Info) Description 11/19/2022 8:56 EDT - 11/19/2022 23:[address] [facility] CT Scan [address] [place] [address] Squamous cell carcinoma of lung, right (HCC-CMS) [...] Description 04/06/2024 9:[address] [facility] Endoscopy [address] [place] [address] Angélica Hernandez MD [address] [phone] 05/17/2024 8:[address] [facility] CT Scan [address] [place] [address] 05/19/2024 13:[address] [facility] Endoscopy [address] [place] [address] Angélica Hernandez MD [address] [phone] 05/28/2024 14:15 EDT Nurse Only [facility] Life [facility] [place] [address] [place], [place] [address] 05/28/2024 14:30 EDT Office Visit [facility] Cancer Treatment [place] [address] [place], [place] [address] Kaiser Miller MD 111 [facility] 2 [place] [address] documented as of this encounter [...] is recommended. 3. No disease progression identified. [id number] Narrative 11/19/2022 12:00 EDT INDICATION: s/p SABR [...] is recommended. 3. No disease progression identified. [id number] us Acosta Alan MD IMG CT ORDERABLES Final R esult documented in this encounter Visit Diagnoses Diagnosis Squamous cell carcinoma of lung, right (HCC-CMS) documented in this encounter Care Teams Research Worker Encyclopedia Relationship Specialty Start Date End Date Elizabeth Dsouza MD [address] [place] [phone] PCP - General 02/13/12 documented as of this encounter
--- OUTSIDE RECORDS SUMMARY | 2024-03-25 15:23 | XMS_ITS | Encounter Summary ---
Author Organization [facility] Address [address] [place] [address] Care Team Providers Care Crotch Breaker Name Role Phone Elizabeth Dsouza MD Primary Care Provider [phone] Encounter Details Date Type Department Care Team (Late st Contact Info) Description 11/29/2022 Documentation Visit [facility] Cancer Treatment [place] [address] [place] [address] Divina Penny, ABEL Social History Tobacco Use [...] 04/06/2024 9:30 EST Hospital Encounter [facility] Endoscopy [address] [place], [place] [address] Angélica Hernandez MD [address] [place] [phone] 05/17/2024 8:00 EST Appointment [facility] CT Scan [address] [place], [place] [phone] 05/19/2024 13:30 EST Appointment [facility] Endoscopy [address] [place], [place] [address] Angélica Hernandez MD [address] [place] [phone] 05/28/2024 14:15 EDT Nurse Only [facility] Cancer [facility] [address] [phone] 05/28/2024 14:30 EDT Office Visit [facility] Cancer Treatment [address] [address] Kaiser Miller MD [address] [place] [address] 2 [place] [phone] documented as of this encounter Visit Diagnoses Not on filedocumented in this encounter Care Teams Crotch Breaker Relationship Specialty Start Date End Date Elizabeth Dsouza MD [address] [place] [phone] PCP - General 02/13/12 documented as of this encounter
--- OUTSIDE RECORDS SUMMARY | 2024-03-25 15:23 | XMS_ITS | Encounter Summary ---
Author Organization [facility] Address [address] [place] [address] Care Team Providers Care Railway Signal Technician Name Role Phone Elizabeth Dsouza MD Primary Care Provider [phone] Reason for Referral * Referral (Routine/Next Available) - Authorization Not Required Specialty Diagnoses / Procedures Referred By Loli rose Referred To Contact Diagnoses Melena Procedures CAPSULE ENDOSCOPY Mahi Hernandez MD [address] [place] [phone] Phone: tel: fax: [facility] Gastro[facility]ology [address] [place] [address] Phone: tel: fax: Referral ID Status Reason Start Date Expiration Date Visits Requested Visits Authorized [id number] Authorization Not Required 10/01/2023 1 1 Reason for Visit * Auth/Cert (Routine) Specialty Diagnoses / Procedures Referred By Loli rose Referred To Contact Referral ID Status Reason Start Date Expiration Date Visits Re quested Visits Authorized [id number] 1 1 Encounter Details Date Type Department Care Team (Late st Contact Info) Description 10/22/2023 6:59 EDT - 10/22/2023 23:59 EDT Hospital Encounter [facility] Endoscopy [address] [place] [address] Mahi Hernandez MD [address] [phone] Luisa Discharge Disposition: Home or Self Care [...] Notes * Marina Thakkar RN - 10/22/2023 0751 EDT Belt applied, blue light on wet machine operator confirmed, patient swallowed capsule without difficulty. Discharge Instructions reviewed, NO MRI card given. documented in this encounter Plan of Treatment Upcoming Encounters Date Type Department Care Team (Late st Contact Info) Description 04/06/2024 9:30 EST Hospital Encounter [facility] Endoscopy [address] [place], [place] [address] Mahi Hernandez MD [address] [place] [phone] 05/17/2024 8:00 EST Appointment [facility] CT Scan [address] [place], [place] [address] 05/19/2024 13:30 EST Appointment [facility] Endoscopy [address] [place], [place] [address] Mahi Hernandez MD [address] [place] [place] [phone] 05/28/2024 14:15 EDT Nurse Only [facility] [address] [place] [address] 05/28/2024 14:30 EDT Office Visit [facility] [address] [place] [address] Kaiser Miller MD 111 [facility] 2 [place] [phone] documented as of this encounter Procedures Procedure Name Priority Date/Time Associated Diagnosis Comments CAPSULE ENDOSCOPY Routine 10/22/2023 8:00 EDT Melena documented in this encounter Results * CAPSULE ENDOSCOPY (10/22/2023 8:00 EDT) Anatomical Region Laterality Modality Endoscopy Narrative 10/22/2023 8:00 EDT [facility] ?? [address], [place], [place] [address] ?? Patient Name ?VIKRAM CLIFFORD Date of ?1955 Record Number ?[id number] Date/Time of Procedure ?10/22/2023, 08:00:00 AM Endoscopist ?Mahi Hernandez MD ?? Press Operator Apprentice ? Referring Physician(s) ?? MAHI HERNANDEZ [...] 10/21 documented in this encounter Care Teams Railway Signal Technician Relationship Specialty Start Date End Date Elziabeth Dsouza MD [address] [place] [phone] PCP - General 02/13/12 documented as of this encounter
--- OUTSIDE RECORDS SUMMARY | 2024-03-25 15:23 | XMS_ITS | Encounter Summary ---
Author Organization [facility] Address [address] [place] [address] Care Team Providers Care Bird Trapper Name Role Phone Elizabeth Dsouza MD Primary Care Provider [phone] Encounter Details Date Type Department Care Team (Late st Contact Info) Description 09/12/2022 Documentation Visit [facility] Cancer Treatment [place] [address] [place] [address] Acosta Alan MD 111 [facility] 2 [place] [address] Social History Tobacco Use Types [...] Squamous cell carcinoma of lung, right ([facility]) Staging form: Lung, AJCC 8th Edition - [...] Holm evaluated her in thoracic surgery at [facility]. She noted that the patient [...] Info) Description 04/06/2024 9:30 EST Hospital Encounter [facility] Endoscopy [address] [place] [phone] Angélica Hernandez MD [address] [place] [phone] 05/17/2024 8:00 EST Appointment [facility] CT Scan [address] [place] [address] 05/19/2024 13:30 EST Appointment [facility] Endoscopy [address] [place], [place] [phone] Angélica Hernandez MD [address] [place] [phone] 05/28/2024 14:15 EDT Nurse Only [facility] [place] [address] [place] [address] 05/28/2024 14:30 EDT Office Visit [facility] Cancer Treatment [address] [address] Kaiser Miller MD [address] [place] [address] 2 [place] [phone] documented as of this encounter Visit Diagnoses Not on filedocumented in this encounter Care Teams Bird Trapper Relationship Specialty Start Date End Date Elizabeth Dsouza MD [address] [place] [phone] PCP - General 02/13/12 documented as of this encounter
--- OUTSIDE RECORDS SUMMARY | 2024-03-25 15:23 | XMS_ITS | Encounter Summary ---
Author Organization [facility] Address [address] [place] [address] Care Team Providers Care Aerodynamicist Name Role Phone Elizabeth Dsouza MD Primary Care Provider [phone] Encounter Details Date Type Department Care Team (Late st Contact Info) Description 09/09/2022 Results Only [facility] Radiation Oncology - [address] [phone] Unknown, Provider, Social History Tobacco Use Types [...] 04/06/2024 9:30 EST Hospital Encounter [facility] Endoscopy [address] [place] [address] Angélica Hernandez MD [address] [place] [phone] 05/17/2024 8:00 EST Appointment [facility] CT Scan [address] [place] [address] 05/19/2024 13:30 EST Appointment [facility] Endoscopy [address] [place] [address] Angélica Hernandez MD [address] [place] [phone] 05/28/2024 14:15 EDT Nurse Only [facility] Life Cancer Treatment [address] [address] 05/28/2024 14:30 EDT Office Visit [facility] Cancer Treatment [address] [phone] Kaiser Miller MD [address] [place] [address] 2 [place] [phone] documented as of this encounter [...] ORDERABLE S Final Result Performing Organization Address City/State/[facility] Co de Phone Number [facility] documented in this encounter Visit Diagnoses Not on filedocumented in this encounter Care Teams Aerodynamicist Relationship Specialty Start Date End Date Elizabeth Dsouza MD [address] [place] [phone] PCP - General 02/13/12 documented as of this encounter
--- OUTSIDE RECORDS SUMMARY | 2024-03-25 15:23 | XMS_ITS | Encounter Summary ---
Author Organization [facility] Address [address] [place] [address] Care Team Providers Care Air Moving Technician Name Role Phone Elizabeth Dsouza MD Primary Care Provider [phone] Encounter Details Date Type Department Care Team (Late st Contact Info) Description 09/06/2022 Results Only [facility] Radiation Oncology - [address] [phone] Unknown, Provider, Social History Tobacco Use Types [...] Info) Description 04/06/2024 9:30 EST Hospital Encounter [facility] Endoscopy [address] [place] [address] Angélica Hernandez MD [address] [place] [phone] 05/17/2024 8:00 EST Appointment [facility] CT Scan [address] [place] [address] 05/19/2024 13:30 EST Appointment [facility] Endoscopy [address] [place] [address] Angélica Hernandez MD [address] [place] [phone] 05/28/2024 14:15 EDT Nurse Only [facility] [place] [facility] Life Cancer Treatment [address] [phone] 05/28/2024 14:30 EDT Office Visit [facility] Cancer Treatment [address] [phone] Kaiser Miller MD [address] [place] [address] 2 [place] [phone] documented as of this encounter [...] on filedocumented in this encounter Care Teams Air Moving Technician Relationship Specialty Start Date End Date Elizabeth Dsouza MD [address] [place] [address] PCP - General 02/13/12 documented as of this encounter
--- OUTSIDE RECORDS SUMMARY | 2024-03-25 15:23 | XMS_ITS | Encounter Summary ---
Author Organization [facility] Address [address] [place] [address] Care Team Providers Care Printing Machinist Name Role Phone Elizabeth Dsouza MD Primary Care Provider [phone] Encounter Details Date Type Department Care Team (Late st Contact Info) Description 09/23/2023 Lab Requisition [facility] Pathology & Laboratory Medicine - [facility] [address] [place] [address] Elizabeth Dsouza MD [address] [place] [phone] Encounter for screening for malignant neoplasm [...] Info) Description 04/06/2024 9:30 EST Hospital Encounter [facility] Endoscopy [address] [place] [address] Angélica Hernandez MD [address] [phone] 05/17/2024 8:00 EST Appointment [facility] CT Scan [address] [place] [address] 05/19/2024 13:30 EST Appointment [facility] Endoscopy [address] [place] [address] Angélica Hernandez MD [address] [phone] 05/28/2024 14:15 EDT Nurse Only [facility] Life Cancer Treatment [place] [address] [place], [place] [address] 05/28/2024 14:30 EDT Office Visit [facility] [place] [facility] Life Cancer Treatment [place] [address] [place] [address] Kaiser Miller MD 111 [facility] 2 [place] [phone] documented as of this encounter Procedures Procedure Name Priority Date/Time Associated Diagnosis Comments PAP TEST Today 09/19/2023 15:00 EDT Encounter for screening for malignant neoplasm of cervix Encounter for general adult medical examination with abnormal findings documented in this encounter Results * PAP TEST (09/19/2023 15:00 EDT) Specimens A. Cervix and/or Endocervix , ThinPrep Imaging System with Manual Evaluation 09/26/2023 12:41 T [facility] Specimen Adequacy Satisfactory for Evaluation - transformation zone component absent Scant squamous epithelial component 09/26/2023 12:41 EDT [facility] General Categorization Epithelial Cell Abnormality 09/26/2023 12:41 [facility] Descriptive Diagnosis Squamous Cell Abnormality - Atypical squamous cells, undetermined significance (ASC-US). 09/26/2023 12:41 [facility] Diagnosis Comment Few nucleated squamous cells present with abundant hyperkeratosis. 09/26/2023 12:41 [facility] Educational Comments [facility] recommends following the ASCCP's management guidelines which may be found at www.asccp.org 09/26/2023 12:41 [facility] Attestation By the signature below, the attending physician certifies that they have personally conducted a gross and/or microscopic examination of the described specimens and rendered or confirmed the above diagnosis. 09/26/2023 12:41 [facility] at 1241 Clinical History SEE BELOW 09/26/19 12:41 [facility] Performing Lab [facility] 09/26/2023 12:41 [facility] Scanned Images 09/26/2023 12:41 [facility] Pap Test CERVIX UTERI STRUCTURE / Unknown 09/19/2023 15:00 EDT 09/23/2023 13:19 EDT us Elizabeth Dsouza MD PATHOLOGY ORDERABLES Final Res ult [facility] [address] [place] [address] documented in this encounter Visit Diagnoses Diagnosis Encounter for screening for malignant neoplasm of cervix Screening for malignant neoplasm of the cervix Encounter for general adult medical examination with abnormal findings Unspecified general medical examination documented in this encounter Care Teams Printing Machinist Relationship Specialty Start Date End Date Elizabeth Dsouza MD [address] [place] [phone] PCP - General 02/13/12 documented as of this encounter
--- OUTSIDE RECORDS SUMMARY | 2024-03-25 15:24 | XMS_ITS | Encounter Summary ---
Author Organization [facility] Address [address] [place] [address] Care Team Providers Care Box Lining Machine Operator Name Role Phone Elizabeth Dsouza MD Primary Care Provider [phone] Reason for Referral * Test (Routine/Next Available) - Authorization Not Required Specialty Diagnoses / Procedures [facility] Referred To Contact Diagnoses Lung nodule Procedures PULMONARY FUNCTION TESTING Amilcar Damian MD MPH Phone: tel: fax: Referral ID Status Reason Start Date Expiration Date Visits Requested Visits Authorized [id number] Authorization Not Required 07/26/2022 1 1 Encounter Details Date Type Department Care Team (Late st Contact Info) Description 07/26/2022 Orders Only [facility] Pulmonology & Critical Care - [facility] [address] [place] [address] Audrey Mix, ABEL Lung nodule (Primary Dx) [...] Hospital Encounter [facility] Endoscopy [address] [place] [address] Angélica Hernandez MD [address] [phone] 05/17/2024 8:00 EST Appointment [facility] CT Scan [address] [place] [address] 05/19/2024 13:30 EST Appointment [facility] Endoscopy [address] [place] [address] Angélica Hernandez MD [address] [place] [phone] 05/28/2024 14:15 EDT Nurse Only [facility] [place] [facility] Cancer Treatment [address] [phone] 05/28/2024 14:30 EDT Office Visit [facility] [place] [facility] Cancer Treatment [address] [address] Kaiser Miller MD 111 [facility] 2 [place] [phone] Scheduled Orders Name Type Priority Associated Diagnoses Orde r Schedule PULMONARY FUNCTION TESTING PFT Routine Lung nodule 1 Occurrences starting 07/26/2022 until 01/27/2024 documented as of this encounter Visit Diagnoses Diagnosis Lung nodule- Primary Solitary pulmonary nodule documented in this encounter Care Teams Box Lining Machine Operator Relationship Specialty Start Date End Date Elizabeth Dsouza MD [address] [place] [phone] PCP - General 02/13/12 documented as of this encounter
--- OUTSIDE RECORDS SUMMARY | 2024-03-25 15:24 | XMS_ITS | Encounter Summary ---
Author Organization [facility] Address [address] [place] [address] Care Team Providers Care Rabbit Breeder Name Role Phone Elizabeth Dsouza MD Primary Care Provider [phone] Encounter Details Date Type Department Care Team (Late st Contact Info) Description 07/30/2022 7:25 EDT - 07/30/2022 10:20 EDT Surgery [facility] [place] [address] [place] [address] [phone] Amilcar Damian MD MPH [address] [place] [address], Level 5 [place] [address] Robotic and navigational bronchoscopy with intraop CT for biopsies, possible washings, and endobronchial ultrasound-guided needle biopsies [07886 (CPT??)] Surgery Details Date/Time Status Location OR Service Patient Class Case Cl ass Case Type Trauma Case? 07/30/2022 0725 Posted [facility] OR [address] Outpatient Surgery H - Elective Panel 1 Procedure LRB Anes Op Region Wound Class Comments Robotic and navigational bronchoscopy with intraop CT for biopsies, possible washings, and endobronchial ultrasound-guided needle biopsies N/A General Chest N/A O arm Cytopathology 120 minutes Surgeon Surgeon Role Service Panel Elizabeth Asencio, BLAST SETTER Assisting Pulmonary 1 Amilcar Damian MD MPH Primary Pulmonary 1 Quintin Joseph, DO Fellow Pulmonary 1 Special Needs O-Arm; Minter Robot; Dive board bed. documented in this [...] By federal law, results are released to [facility] at the same time they are released to your provider. Please call if any one of the following problems develop: *Increasing shortness of breath *Coughing up more than a tablespoon of blood at a time *Significant chest pain or discomfort *Temperature over 100.6 degrees F that occurs the day after the procedure or later Call the pulmonary office at [phone] between 8:30am-4:30pm. After 4:30pm the hospital operatorat [phone] and ask to have the pulmonary physician account resolution specialist be paged. documented in this encounter Medications [...] Code Departure Means Destination Home or Self Residential documented in this encounter H&P Notes * [...] with Chantix. Using e-cigarettes. Lives alone in [place], [place]. Maintains home. Denies functional limitations; although notes exertion is limited by right-sided sciatic pain. Denies chest pain or pressure. No palpitations. No exertional dyspnea, although minimal ambulation attributed to lower extremity discomfort. Not regularly followed by cardiology; underwent PCI in 1995 for NSTEMI. No further cardiac events. 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 No occupational exposures to chemicals or fumes. Social History: Lives alone in [place], [place]. Multiple pets within the home; including cats, dogs, and parakeets. Denies issues with mold or mildew. Family History: No family history of lung cancer. 4 adult children are healthy. PMHx: HTN HLD CAD s/p PCI [1995] at [facility] Lower extremity pain PSHx: has a past [...] - Amilcar Damian MD MPH - 07/30/2022 0536 EDT OPERATIVE REPORT SERVICE DATE: 07/30/2022 PROCEDURE: Robotic and navigational bronchoscopy with intraoperative cone beam CT scan verification, radial endobronchial ultrasound confirmation for fine needle aspiration and EBUS-TBNA. SURGEON: Luis Damian MD MPH NURSE ANESTHETIST: Elizabeth Asencio NP (Please note, no qualified fellow was available assist in the procedure, thus Ms Asencio's presence was required as executive staff assistant. She assisted in performing robotic navigational [...] Luis Damian MD, MPH / CD Confirmation: [id number] Dictation ID: [id number] cc: documented in this encounter Plan of Treatment Upcoming Encounters Date Type Department Care Team (Late st Contact Info) Description 04/06/2024 9:30 EST Hospital Encounter [facility] Endoscopy [address] [place], [place] [address] Angélica Hernandez MD [address] [place] [phone] 05/17/2024 8:00 EST Appointment [facility] CT Scan [address] [place] [address] 05/19/2024 13:30 EST Appointment [facility] Endoscopy [address] [place] [address] Angélica Hernandez MD [address] [place], [place] [address]dson [address] [place] [phone] 05/28/2024 14:15 EDT Nurse Only [facility] Cancer [facility] [address] [place] [address] 05/28/2024 14:30 EDT Office Visit [facility] [address] [place], [place] 300[address] Kaiser Miller MD 111 [facility], Level 2 [place] [address] documented as of this encounter Procedures Procedure Name Priority Date/Time Associated Diagnosis Comments XR CHEST PORTABLE 1 VIEW Routine 07/30/2022 10:39 EDT FL C-ARM 0-1 HOUR Routine 07/30/2022 9:3 5 EDT XR CHEST 2 VIEWS Routine 07/30/2022 9:34 EDT NON ART MODEL/FNA CYTOLOGY Routine 07/30/2022 8:44 EDT BRONCHOSCOPY, WITH TRANSBRONCHIAL NEEDLE ASPIRATION BIOPSY 07/30/2022 7:39 EDT Lung nodule Special Needs O-Arm; Minter Robot; Dive board bed. documented in this [...] MARIE GING ORDERABLES Final Result * NON ART MODEL/FNA CYTOLOGY (07/30/2022 8:44 EDT) Note to Patient The following pathology results have been interpreted by your pathologist and may be available to you before your health provider has had the opportunity to review them. Please allow time for your provider to receive these results and explore management options, if applicable. 07/31/2022 9:58 EDT [facility] Final Diagnosis A. LUNG, [...] cells present. - Lymphocytes present. 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 The tumor cells are present individually without sheets of cells being identified. The cell block shows a rare cluster of dysplastic squamous cells. The patient's previous cytology specimen ([id number]) and biopsy specimen ([id number]) have been reviewed. Machine Molder slides of this case were reviewed at the intradepartmental consultation conference. 07/31/2022 9:58 [facility] Attestation By the signature below, the attending physician certifies that they have personally conducted a gross and/or microscopic examination of the described specimens and rendered or confirmed the above diagnosis. 07/31/2022 9:58 [facility] at 0958 Rapid [...] Kenneth Lawrence; 07/29/2022; 9:00 AM 07/31/2022 9:58 [facility] Clinical History Lung nodule 07/31/2022 9:58 [facility] Gross Description A. 12 fixed prepared slides, 1 air dried prepared slides, and 1 tube of RPMI for cell block processing were received. B. One vial of CytoLyt was received and processed by selective cellular enhancement technique. C. One vial of CytoLyt was received and processed by selective cellular enhancement technique. 07/31/2022 9:58 EDT [facility] Performing Lab [facility] 07/31/2022 9:58 EDT [facility] Scanned Images 07/31/2022 9:58 EDT [facility] Fine Needle Aspirate ENTIRE [...] MD MPH PATHOLOGY ORDERABL ES Final Result Performing Organization Address City/State/[facility] Co de Phone Number [facility] [address] [place] [address] documented in this encounter Visit Diagnoses Diagnosis [...] 07/30/2022 documented in this encounter Care Teams Rabbit Breeder Relationship Specialty Start Date End Date Elizabeth Dsouza MD [address] [place] [address] PCP - General 02/13/12 documented as of this encounter
--- OUTSIDE RECORDS SUMMARY | 2024-03-25 15:24 | XMS_ITS | Encounter Summary ---
Author Organization [facility] Address [address] [place] [address] Care Team Providers Care Consumer Services Consultant Name Role Phone Elizabeth Dsouza MD Primary Care Provider [phone] Encounter Details Date Type Department Care Team (Late st Contact Info) Description 07/30/2022 7:44 EDT Anesthesia Event [facility] OR [address] [place], [place] [address] Gaetano Amaral MD 111 [facility], Level 2 [place] [address] Anesthesia Record Procedure Summary Procedure [...] JÚNIOR ??? COPD (chronic obstructive pulmonary disease) ([facility]) 07/23/22- well controlled w/ use of [...] obtain a plan. Dorothy Herron APRN, MSN @4311 PAT Note by Marissa Ortiz RN at [...] Info) Description 04/06/2024 9:30 EST Hospital Encounter [facility] Endoscopy [address] [place] [address] Angélica Hernandez MD [address] [place] [phone] 05/17/2024 8:00 EST Appointment [facility] CT Scan [address] [place] [address] 05/19/2024 13:30 EST Appointment [facility] Endoscopy [address] [place] [address] Angélica Hernandez MD [address] [place] [phone] 05/28/2024 14:15 EDT Nurse Only [facility] Cancer Treatment [address] [phone] 05/28/2024 14:30 EDT Office Visit [facility] Cancer Treatment [address] [phone] Kaiser Miller MD 111 [facility] 2 [place] [address] documented as of this encounter Procedures Procedure Name Priority Date/Time Associated Diagnosis Comments ANESTHESIA INTUBATION Routine 07/30/2022 7:53 EDT documented in this encounter Results * [place] AN ELECTIVE ENDOTRACHEAL AIRWAY (07/30/2022 7:53 EDT) Narrative [facility] POINT OF CARE - 07/30/2022 7:53 [...] at approach: 1 Gaetano Amaral MD ANESTHESIA ORDERABLES Fin al Result [facility] POINT OF CARE documented in this encounter [...] mg documented in this encounter Care Teams Consumer Services Consultant Relationship Specialty Start Date End Date Elizabeth Dsouza MD [address] [place] [phone] PCP - General 02/13/12 documented as of this encounter
--- OUTSIDE RECORDS SUMMARY | 2024-03-25 15:24 | XMS_ITS | Encounter Summary ---
Author Organization [facility] Address [address] [place] [address] Care Team Providers Care Steaming Machine Operator Name Role Phone Elizabeth Dsouza MD Primary Care Provider [phone] Reason for Visit * Reason Onset Date Comments Appointment Related 07/12/2022 Encounter Details Date Type Department Care Team (Late st Contact Info) Description 07/12/2022 Telephone [facility] Pulmonology & Critical Care - [address] [phone] Amilcar Damian MD MPH [address] [place] [address], Level [address] [place] [address] Appointment Related Social History Tobacco [...] 04/06/2024 9:30 EST Hospital Encounter [facility] Endoscopy [address] [place] [address] Angélica Hernandez MD [address] [place] [phone] 05/17/2024 8:00 EST Appointment [facility] CT Scan [address] [place] [address] 05/19/2024 13:30 EST Appointment [facility] Endoscopy [address] [place] [address] Angélica Hernandez MD [address] [place] [phone] 05/28/2024 14:15 EDT Nurse Only [facility] [place] [address] [place], [place] [address] 05/28/2024 14:30 EDT Office Visit [facility] [place] [address] [place], [place] [address] Kaiser Miller MD 111 [facility] 2 [place] [address] documented as of this encounter Visit Diagnoses Not on filedocumented in this encounter Care Teams Steaming Machine Operator Relationship Specialty Start Date End Date Elizabeth Dsouza MD [address] [place] [address] PCP - General 02/13/12 documented as of this encounter
--- OUTSIDE RECORDS SUMMARY | 2024-03-25 15:24 | XMS_ITS | Encounter Summary ---
Author Organization [facility] Address [address] [place] [address] Care Team Providers Care Spray Gun Sizer Name Role Phone Elizabeth Dsouza MD Primary Care Provider [phone] Reason for Referral * Radiology Services (Routine/Next Available) - Closed Specialty Diagnoses / Procedures Referred By Loli rose Referred To Contact Nuclear Medicine Diagnoses Lung nodule Procedures PET CT EYE TO THIGH Amilcar Damian MD MPH Phone: tel: fax: [facility] Referral ID Status Reason Start Date Expiration Date Visits Re quested Visits Authorized [id number] Closed 07/19/2022 09/02/2022 1 1 Encounter Details Date Type Department Care Team (Late st Contact Info) Description 07/16/2022 Orders Only [facility] Center Hematology & Oncology - [facility] [address] [place] [address] Doroteo Ibrahim, RN Lung nodule [...] Info) Description 04/06/2024 9:30 EST Hospital Encounter [facility] Endoscopy [address] [place] [address] Angélica Hernandez MD [address] [phone] 05/17/2024 8:00 EST Appointment [facility] CT Scan [address] [place] [phone] 05/19/2024 13:30 EST Appointment [facility] Endoscopy [address] [place] [address] Angélica Hernandez MD [address] [place] [phone] 05/28/2024 14:[address] [facility] Cancer Treatment [place] [address] [place], [place] [address] 05/28/2024 14:30 EDT Office Visit [facility] [place] [address] [place], [place] [address] Kaiser Miller MD 111 [facility] 2 [place] [address] documented as of this encounter [...] the IV injection of 8.24 mCi of [id number], 3D TOF PET imaging was obtained from the skull base to upper thighs using a [employer] digital ??PET/CT system. ??The blood glucose level [...] following the IV injection of 8.24 mCi [id number], 3D TOF PET imaging was obtained from the skullbase to upper thighs using a [employer] digital PET/CT system. Theblood glucose level prior [...] nodule documented in this encounter Care Teams Spray Gun Sizer Relationship Specialty Start Date End Date Elizabeth Dsouza MD [address] [place] [phone] PCP - General 02/13/12 documented as of this encounter
--- OUTSIDE RECORDS SUMMARY | 2024-03-25 15:24 | XMS_ITS | Encounter Summary ---
Author Organization [facility] Address [address] [place] [address] Care Team Providers Care Radiographer Mammographer Name Role Phone Elizabeth Dsouza MD Primary Care Provider Reason for Visit * Reason Onset Date Comments Biopsy Results 07/31/2022 Encounter Details Date Type Department Care Team (Late st Contact Info) Description 07/31/2022 Telephone [facility] Pulmonology & Critical Care - [address] [phone] Elizabeth Asencio, CIRCUS PERFORMER [address] [place] [address], Level [address] [place] [address] Biopsy Results Social History Tobacco [...] Will plan to present her case at [facility] on 08/05 and have her meet with [...] Info) Description 04/06/2024 9:30 EST Hospital Encounter [facility] Endoscopy [address] [place], [place] [address] Angélica Hernandez MD [address] [place] [phone] 05/17/2024 8:00 EST Appointment [facility] CT Scan [address] [place], [place] [address] 05/19/2024 13:30 EST Appointment [facility] Endoscopy [address] [place] [address] Angélica Hernandez MD [address] [phone] 05/28/2024 14:15 EDT Nurse Only [facility] Cancer [facility] [address] [place], [place] [address] 05/28/2024 14:30 EDT Office Visit [facility] Cancer [facility] [address] [place], [place] [address]683 Kaiser Miller MD 111 [facility], [facility] 2 [place] [address] documented as of this encounter Visit Diagnoses Not on filedocumented in this encounter Care Teams Radiographer Mammographer Relationship Specialty Start Date End Date Elizabeth Dsouza MD [address] [place] [phone] PCP - General 02/13/12 documented as of this encounter
--- OUTSIDE RECORDS SUMMARY | 2024-03-25 15:24 | XMS_ITS | Encounter Summary ---
Author Organization [facility] Address [address] [place] [address] Care Team Providers Care Bolt Maker Name Role Phone Elizabeth Dsouza MD Primary Care Provider [phone] Reason for Visit * Reason Onset Date Comments Follow-up 07/23/2022 Encounter Details Date Type Department Care Team (Late st Contact Info) Description 07/23/2022 Telephone [facility] Pulmonology & Critical Care - [facility] [address] [place] [address] Audrey Mix RN Follow-up Social History Tobacco [...] Encounter - Audrey Mix RN - 07/23/[address] Dsouza's office returned call and [...] Hospital Encounter [facility] Endoscopy [address] [place] [address] Angélica Hernandez MD [address] [place] [phone] 05/17/2024 8:00 EST Appointment [facility] CT Scan [address] [place], [place] [phone] 05/19/2024 13:30 EST Appointment [facility] Endoscopy [address] [place] [address] Angélica Hernandez MD [address] [place] [phone] 05/28/2024 14:15 EDT Nurse Only [facility] Cancer Treatment [place] [address] [place], [place] [phone] 05/28/2024 14:30 EDT Office Visit [facility] Cancer Treatment [place] [address] [place], [place] [address] Kaiser Miller MD 111 [facility], [facility] 2 [place] [address] documented as of this encounter Visit Diagnoses Not on filedocumented in this encounter Care Teams Bolt Maker Relationship Specialty Start Date End Date Elizabeth Dsouza MD [address] [place] [address] PCP - General 02/13/12 documented as of this encounter
--- OUTSIDE RECORDS SUMMARY | 2024-03-25 15:24 | XMS_ITS | Encounter Summary ---
Author Organization [facility] Address [address] [place] [address] Care Team Providers Care Felt Cementer Name Role Phone Elizabeth Dsouza MD Primary Care Provider [phone] Reason for Referral * Consult (Routine/Next Available) - New Request Specialty Diagnoses / Procedures Referred By Loli rose Referred To Contact Hematology and Oncology Diagnoses Lung mass Elizabeth Asencio NP Phone: tel: fax: Referral ID Status Reason Start Date Expiration Date Visits Requested Visits Authorized [id number] New Request Specialty Services Required 07/18/2022 1 1 Question Answer Location [facility] Tumor Board Lung Working Stage TBD Additional Providers No Clinical Question? No Radiology Review Review Recent Radiology Are there studies that were perfomed outside of [facility] (even if performed at another network location) that need to be reviewed? No Please indicate which [facility] studies are to be reviewed. CT, Nuc Med Question to be answered: Discuss dz extent/staging for tx plan Pathology Review Review Recent Pathology Please indicate which slides are to be reviewed and add the pathology question recent lung biopsy Trial Options No Encounter Details Date Type Department Care Team (Late st Contact Info) Description 07/18/2022 Orders Only [facility] Cancer Center Hematology & Oncology - Main [place] [address] [place], [place] [address] Doroteo Ibrahim, RN Lung mass (Primary Dx) [...] Info) Description 04/06/2024 9:30 EST Hospital Encounter [facility] Endoscopy [address] [place] [address] Angélica Hernandez MD [address] [place] [phone] 05/17/2024 8:00 EST Appointment [facility] CT Scan [address] [place], [place] [address] 05/19/2024 13:30 EST Appointment [facility] Endoscopy [address] [place] [address] Angélica Hernandez MD [address] [place] [phone] 05/28/2024 14:15 EDT Nurse Only [facility] [place] [address] [place], [place] [address] 05/28/2024 14:30 EDT Office Visit [facility] Cancer [facility] 130 [place], [place] [address] Kaiser Miller MD [address] [place] [address], [facility], Level 2 [place] [phone] Scheduled Referrals Name Type Priority Associated Diagnoses Orde r Schedule AMB CONSULT/FOLLOW UP TUMOR BOARD Outpatient Referral Routine Lung mass Ordered: 07/18/2022 documented as of this encounter Visit Diagnoses Diagnosis Lung mass- Primary Swelling, mass, or lump in chest documented in this encounter Care Teams Felt Cementer Relationship Specialty Start Date End Date Elizabeth Dsouza MD [address] [place] [phone] PCP - General 02/13/12 documented as of this encounter
--- OUTSIDE RECORDS SUMMARY | 2024-03-25 15:24 | XMS_ITS | Encounter Summary ---
Author Organization [facility] Address [address] [place] [address] Care Team Providers Care Library Helper Name Role Phone Elizabeth Dsouza MD Primary Care Provider [phone] Reason for Referral * Radiology Services (Routine/Next Available) - Receiving Office to Obtain Authorization Specialty Diagnoses / Procedures Referred By Contac t Referred To Contact Diagnoses Lung mass Procedures CT SECONDARY READ CHEST Elizabeth Asencio NP Phone: tel: fax: [facility] Referral ID Status Reason Start Date Expiration Date Visits Requested Visits Authorized [id number] Receiving Office to Obtain Authorization 07/26/2022 1 1 Reason for Visit * Radiology Services (Routine/Next Available) - Receiving Office to Obtain Authorization Specialty Diagnoses / Procedures Referred By Loli rose Referred To Contact Diagnoses Lung mass Procedures CT SECONDARY READ CHEST Elizabeth Asencio NP Phone: tel: fax: [facility] Referral ID Status Reason Start Date Expiration Date Visits Requested Visits Authorized [id number] Receiving Office to Obtain Authorization 07/26/2022 1 1 Encounter Details Date Type Department Care Team (Latest Contact Info) Description 07/26/2022 10:19 EDT - 07/26/2022 13:09 EDT Hospital Encounter [facility] Radiology - Main [place] [address] [place], [place] [phone] Lung mass Discharge Disposition: Home or Self [...] Hospital Encounter [facility] Endoscopy [address] [place], [place] [address]152 Angélica Hernandez MD [address] [phone] 05/17/2024 8:00 EST Appointment [facility] CT Scan [address] [place], [place] [address] 05/19/2024 13:30 EST Appointment [facility] Endoscopy [address] [place] [address] Angélica Hernandez MD [address] [phone] 05/28/2024 14:15 EDT Nurse Only [facility] Cancer Treatment [address] [phone] 05/28/2024 14:30 EDT Office Visit [facility] Cancer Treatment [address] [address]30[address] Kaiser Miller MD 111 [facility] 2 [place] [address] documented as of this encounter [...] specific discrete suspicious osseous lesion. Elizabeth Asencio RETENTION REPRESENTATIVE IMG CT ORDERABLES Final Resu lt documented in this encounter Visit Diagnoses Diagnosis Lung mass Swelling, mass, or lump in chest documented in this encounter Care Teams Library Helper Relationship Specialty Start Date End Date Elizabeth Dsouza MD [address] [place] [address] PCP - General 02/13/12 documented as of this encounter
--- OUTSIDE RECORDS SUMMARY | 2024-03-25 15:24 | XMS_ITS | Encounter Summary ---
Author Organization [facility] Address [address] [place] [address] Care Team Providers Care Piccoloist Name Role Phone Elizabeth Dsouza MD Primary Care Provider [phone] Reason for Visit * Reason Comments Follow-up Encounter Details Date Type Department Care Team (Late st Contact Info) Description 07/31/2022 10:30 EDT Nurse Only [facility] Pulmonology & Critical Care - [facility] [address] [place] [address] Pulmonary, Nurse Lung nodule (Primary Dx) Social [...] Encounter [facility] Endoscopy [address] [place] [address] Angélica Hernandez MD [address] [place] [phone] 05/17/2024 8:00 EST Appointment [facility] CT Scan [address] [place] [address] 05/19/2024 13:30 EST Appointment [facility] Endoscopy [address] [place] [address] Angélica Hernandez MD [address] [place] [phone] 05/28/2024 14:15 EDT Nurse Only [facility] Cancer Treatment [address] [phone] 05/28/2024 14:30 EDT Office Visit [facility] Cancer Treatment [address] [address] Kaiser Miller MD 111 [facility] 2 [place] [address] documented as of this encounter Visit Diagnoses Diagnosis Lung nodule- Primary Solitary pulmonary nodule documented in this encounter Care Teams Piccoloist Relationship Specialty Start Date End Date Elizabeth Dsouza MD [address] [place] [phone] PCP - General 02/13/12 documented as of this encounter
--- OUTSIDE RECORDS SUMMARY | 2024-03-25 15:24 | XMS_ITS | Encounter Summary ---
Author Organization [facility] Address [address] [place] [address] Care Team Providers Care Supervising Editor Trailer Name Role Phone Elizabeth Dsouza MD Primary Care Provider [phone] Encounter Details Date Type Department Care Team (Latest Contact Info) Description 07/23/2022 12:09 EDT - 07/23/2022 23:59 EDT Hospital Encounter [facility] [place] [facility] Pre-Surgical Testing [address] [place], [place] [phone] Discharge Disposition: Home or Self Care Social [...] pick you up to assist with medication lemon picker from pharmacy, review of discharge instructions and surgical consult. We ask that your ride stay within 15 minutes of the hospital for lemon picker. - CPAP/BiPAP Bring your CPAP or BiPAP machine in with you on the day of your surgery. - Nail liberian and Jewelry Remove all finger nail liberian and makeup before surgery Remove all jewelry [...] Crutches if needed. - Use the [employer] Manager given to you by your surgeon or [...] campus of surgery. For Day of Surgery: [facility] [place]: [phone]; [facility] [place]; [phone]. Prior to Day of Surgery call: [phone]. Pre-op toll Free Number . - More information can also be found on our website: [email or web address] documented in this encounter Miscellaneous Notes [...] obtain a plan. Dorothy Herron APRN, MSN @6560 documented in this encounter Plan of Treatment Upcoming Encounters Date Type Department Care Team (Late st Contact Info) Description 04/06/2024 9:30 EST Hospital Encounter [facility] Endoscopy [address] [place] [address] Angélica Henrandez MD [address] [place] [phone] 05/17/2024 8:00 EST Appointment [facility] CT Scan [address] [place] [address] 05/19/2024 13:30 EST Appointment [facility] Endoscopy [address] [place] [address] Angélica Hernandez MD [address] [place] [phone] 05/28/2024 14:15 EDT Nurse Only [facility] Cancer Treatment [address] [phone] 05/28/2024 14:30 EDT Office Visit [facility] Cancer Treatment [address] [phone] Kaiser Miller MD 111 [facility] 2 [place] [address] documented as of this encounter [...] 07/30/2022 added in this encounter Care Teams Supervising Editor Trailer Relationship Specialty Start Date End Date Elizabeth Dsouza MD [address] [place] [phone] PCP - General 02/13/12 documented as of this encounter
--- OUTSIDE RECORDS SUMMARY | 2024-03-25 15:24 | XMS_ITS | Encounter Summary ---
Author Organization [facility] Address [address] [place] [address] Care Team Providers Care Risk Management Intern Name Role Phone Elizabeth Dsouza MD Primary Care Provider [phone] Encounter Details Date Type Department Care Team (Late st Contact Info) Description 07/18/2022 Abstract [facility] Pulmonology & Critical Care - [facility] [address] [place], [place] [phone] Elizabeth Dsouza MD [address] [place] [phone] Social History Tobacco Use Types Packs/Day [...] Info) Description 04/06/2024 9:30 EST Hospital Encounter [facility] Endoscopy [address] [place] [address] Angélica Hernandez MD [address] [place] [phone] 05/17/2024 8:00 EST Appointment [facility] CT Scan [address] [place] [address] 05/19/2024 13:30 EST Appointment [facility] Endoscopy [address] [place] [address] Angélica Hernandez MD [address] [place] [phone] 05/28/2024 14:15 EDT Nurse Only [facility] Life Cancer Treatment [address] [phone] 05/28/2024 14:30 EDT Office Visit [facility] Cancer Treatment [address] [address] Kaiser Miller MD 111 [facility] 2 [place] [phone] documented as of this encounter Visit Diagnoses Not on filedocumented in this encounter Care Teams Risk Management Intern Relationship Specialty Start Date End Date Elizabeth Dsouza MD 4 [facility] [place] [phone] PCP - General 02/13/12 documented as of this encounter
--- OUTSIDE RECORDS SUMMARY | 2024-03-25 15:24 | XMS_ITS | Encounter Summary ---
Author Organization [facility] Address [address] [place] [address] Care Team Providers Care Agriculture Teacher Name Role Phone Elizabeth Dsouza MD Primary Care Provider [phone] Reason for Referral * Test (Routine/Next Available) - Authorization Not Required Specialty Diagnoses / Procedures Referred By Contac t Referred To Contact Diagnoses Lung nodule Procedures PULMONARY FUNCTION TESTING Juliocesar Limon MD Referral ID Status Reason Start Date Expiration Date Visits Requested Visits Authorized [id number] Authorization Not Required 07/15/2022 1 1 Reason for Visit * Test (Routine/Next Available) - Authorization Not Required Specialty Diagnoses / Procedures Referred By Loli rose Referred To Contact Diagnoses Lung nodule Procedures PULMONARY FUNCTION TESTING Juliocesar Limon MD Referral ID Status Reason Start Date Expiration Date Visits Requested Visits Authorized [id number] Authorization Not Required 07/15/2022 1 1 Encounter Details Date Type Department Care Team (Latest Contact Info) Description 07/26/2022 13:10 EDT - 07/26/2022 23:59 EDT Hospital Encounter [facility] Pulmonary Function Lab - [facility] [address] [place] [address] Lung nodule Discharge Disposition: Home [...] EDT Testing was performed and recorded in [facility]. See complete report in Procedures. documented in this encounter Plan of Treatment Upcoming Encounters Date Type Department Care Team (Late st Contact Info) Description 04/06/2024 9:30 EST Hospital Encounter [facility] Endoscopy [address] [place] [address] Angélica Hernandez MD [address] [place] [phone] 05/17/2024 8:00 EST Appointment [facility] CT Scan [address] [place] [address] 05/19/2024 13:30 EST Appointment [facility] Endoscopy [address] [place], [place] [address] Angélica Hernandez MD [address] [place] [phone] 05/28/2024 14:15 EDT Nurse Only [facility] Life Cancer Treatment [address] [phone] 05/28/2024 14:30 EDT Office Visit [facility] Cancer Treatment [address] [address] Kaiser Miller MD 111 [facility] 2 [place] [phone] documented as of this encounter Procedures Procedure Name Priority Date/Time Associated Diagnosis Comments PULMONARY FUNCTION TESTING Routine 07/26/2022 14:15 EDT Lung nodule documented in this encounter Results * PULMONARY FUNCTION TESTING (07/26/2022 14:15 EDT) 07/26/2022 14:1 5 EDT Juliocesar Limon MD PFT ORDERABLES Final Result [facility] PFT documented in this encounter Visit [...] 07/26/2022 documented in this encounter Care Teams Agriculture Teacher Relationship Specialty Start Date End Date Elizabeth Dsouza MD [address] [place] [id number] PCP - General 02/13/12 documented as of this encounter
--- OUTSIDE RECORDS SUMMARY | 2024-03-25 15:24 | XMS_ITS | Encounter Summary ---
Author Organization [facility] Address [address] [place] [address] Care Team Providers Care Secretarial Stenographer Name Role Phone Elizabeth Dsouza MD Primary Care Provider [phone] Reason for Referral * Radiology Services (Routine/Next Available) - Receiving Office to Obtain Authorization Specialty Diagnoses / Procedures Referred By Loli rose Referred To Contact Diagnoses Lung mass Procedures CT SECONDARY READ CHEST Elizabeth Asencio NP Phone: tel: fax: [facility] Referral ID Status Reason Start Date Expiration Date Visits Requested Visits Authorized [id number] Receiving Office to Obtain Authorization 07/26/2022 1 1 Encounter Details Date Type Department Care Team (Late st Contact Info) Description 07/26/2022 Orders Only [facility] Cancer Center Hematology & Oncology - [facility] [address] [place] [address] Doroteo Ibrahim, RN Lung mass [...] Info) Description 04/06/2024 9:30 EST Hospital Encounter [facility] Endoscopy [address] [place] [address] Angélica Hernandez MD [address] [phone] 05/17/2024 8:00 EST Appointment [facility] CT Scan [address] [place] [address] 05/19/2024 13:30 EST Appointment [facility] Endoscopy [address] [place] [address] Angélica Hernandez MD [address] [place] [phone] 05/28/2024 14:15 EDT Nurse Only [facility] Cancer Treatment [place] [address] [place], [place] [address] 05/28/2024 14:30 EDT Office Visit [facility] [place] [address] [place], [place] [address] Kaiser Miller MD 111 [facility] 2 [place] [phone] documented as of this encounter [...] specific discrete suspicious osseous lesion. Elizabeth Asencio PIPER HELPER IMG CT ORDERABLES Final Resu lt documented in this encounter Visit Diagnoses Diagnosis Lung mass- Primary Swelling, mass, or lump in chest Lung mass Swelling, mass, or lump in chest documented in this encounter Care Teams Secretarial Stenographer Relationship Specialty Start Date End Date Elizabeth Dsouza MD [address] [place] [phone] PCP - General 02/13/12 documented as of this encounter
--- OUTSIDE RECORDS SUMMARY | 2024-03-25 15:24 | XMS_ITS | Encounter Summary ---
Author Organization [facility] Address [address] [place] [address] Care Team Providers Care Flow Machine Operator Name Role Phone Elizabeth Dsouza MD Primary Care Provider [phone] Encounter Details Date Type Department Care Team (Late st Contact Info) Description 07/30/2022 5:50 EDT - 07/30/2022 23:30 EDT Hospital Encounter [facility] OR [address] [place] [phone] Amilcar Damian MD MPH [address] [place] [address], Level [address] [place] [address] Discharge Disposition: Home or Self [...] By federal law, results are released to [facility] at the same time they are released to your provider. Please call if any one of the following problems develop: *Increasing shortness of breath *Coughing up more than a tablespoon of blood at a time *Significant chest pain or discomfort *Temperature over 100.6 degrees F that occurs the day after the procedure or later Call the pulmonary office at [phone] between 8:30am-4:30pm. After 4:30pm the hospital operatorat [phone] and ask to have the pulmonary physician local combination truck driver be paged. documented in this encounter Medications [...] Code Departure Means Destination Home or Self Prison documented in this encounter H&P Notes * [...] with Chantix. Using e-cigarettes. Lives alone in [place], [place]. Maintains home. Denies functional limitations; although notes exertion is limited by right-sided sciatic pain. Denies chest pain or pressure. No palpitations. No exertional dyspnea, although minimal ambulation attributed to lower extremity discomfort. Not regularly followed by cardiology; underwent PCI in 1995 for NSTEMI. No further cardiac events. 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 No occupational exposures to chemicals or fumes. Social History: Lives alone in [place], [place]. Multiple pets within the home; including cats, dogs, and parakeets. Denies issues with mold or mildew. Family History: No family history of lung cancer. 4 adult children are healthy. PMHx: HTN HLD CAD s/p PCI [1995] at [facility] Lower extremity pain PSHx: has [...] discussed with Dr. Damian. Juliocesar Limon MD [facility] Fellow Attestation statement: I performed or [...] and EBUS-TBNA. SURGEON: Luis Damian MD MPH GRANULATOR MACHINE OPERATOR: Elizabeth Asencio NP (Please note, no qualified fellow was available assist in the procedure, thus Ms Asencio's presence was required as junior assistant manager. She assisted in performing robotic navigational bronchoscopy [...] Luis Damian MD, MPH / CD Confirmation: [id number] Dictation ID: [id number] cc: documented in this encounter Plan of Treatment Upcoming Encounters Date Type Department Care Team (Late st Contact Info) Description 04/06/2024 9:30 EST Hospital Encounter [facility] Endoscopy [address] [place], [place] [address] Angélica Hernandez MD [address] [place] [phone] 05/17/2024 8:00 EST Appointment [facility] CT Scan [address] [place] [phone] 05/19/2024 13:30 EST Appointment [facility] Endoscopy [address] [place] [phone] Angélica Hernandez MD [address] [place] [phone] 05/28/2024 14:15 EDT Nurse Only [facility] Cancer Treatment [address] [phone] 05/28/2024 14:30 EDT Office Visit [facility] Cancer Treatment [address] [phone] Kaiser Miller MD [address] [place] [address] 2 [place] [phone] documented as of this encounter Procedures Procedure Name Priority Date/Time Associated Diagnosis Comments XR CHEST PORTABLE 1 VIEW Routine 07/30/2022 10:39 EDT FL C-ARM 0-1 HOUR Routine 07/30/2022 9:3 5 EDT XR CHEST 2 VIEWS Routine 07/30/2022 9:34 EDT NON BONDING MOLDER/FNA CYTOLOGY Routine 07/30/2022 8:44 EDT BRONCHOSCOPY, WITH TRANSBRONCHIAL NEEDLE ASPIRATION BIOPSY 07/30/2022 7:39 EDT Lung nodule Special Needs O-Arm; [place] Robot; Dive board bed. documented in this [...] pneumothorax status post bronchoscopic biopsy. Elizabeth Asencio SAFETY SUPERVISOR IMG DIAGNOSTIC IMAGING ORDER BHARAT Final Result * FL C-ARM 0-1 HOUR (07/30/2022 9:35 EDT) Narrative 07/30/2022 9:35 EDT This is a non-reportable exam. Amilcar Damian MD MPH IMG OTHER IMAGING ORDERABLES Final Result * XR CHEST 2 VIEWS (07/30/2022 9:34 EDT) Narrative 07/30/2022 9:34 EDT This is a non-reportable exam. Result [facility] Amilcar Damian MD MPH IMG DIAGNOSTIC ANNE MARIE GING ORDERABLES Final Result * NON BONDING MOLDER/FNA CYTOLOGY (07/30/2022 8:44 EDT) Note to Patient The following pathology results have been interpreted by your pathologist and may be available to you before your health provider has had the opportunity to review them. Please allow time for your provider to receive these results and explore management options, if applicable. 07/31/2022 9:58 EDT [facility] Final Diagnosis A. LUNG, RIGHT [...] present. - Lymphocytes present. 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 The tumor cells are present individually without sheets of cells being identified. The cell block shows a rare cluster of dysplastic squamous cells. The patient's previous cytology specimen ([id number]) and biopsy specimen ([id number]) have been reviewed. High School Foreign Language Teacher slides of this case were reviewed at the intradepartmental consultation conference. 07/31/2022 9:58 [facility] Attestation By the signature below, the attending physician certifies that they have personally conducted a gross and/or microscopic examination of the described specimens and rendered or confirmed the above diagnosis. 07/31/2022 9:58 [facility] at 0958 Rapid Diagnosis A. [...] Kenneth Lawrence; 07/29/2022; 9:00 AM 07/31/2022 9:58 [facility] Clinical History Lung nodule 07/31/2022 9:58 [facility] Gross Description A. 12 fixed prepared slides, 1 air dried prepared slides, and 1 tube of RPMI for cell block processing were received. B. One vial of CytoLyt was received and processed by selective cellular enhancement technique. C. One vial of CytoLyt was received and processed by selective cellular enhancement technique. 07/31/2022 9:58 [facility] Performing Lab [facility] 07/31/2022 9:58 [facility] Scanned Images 07/31/2022 9:58 [facility] Fine Needle Aspirate ENTIRE RIGHT [...] MD MPH PATHOLOGY ORDERABL ES Final Result [facility] [address] [place] [address] documented in this encounter Visit Diagnoses Diagnosis [...] 07/30/2022 documented in this encounter Care Teams Flow Machine Operator Relationship Specialty Start Date End Date Elizabeth Dsouza MD [address] [place] [phone] PCP - General 02/13/12 documented as of this encounter
--- OUTSIDE RECORDS SUMMARY | 2024-03-25 15:24 | XMS_ITS | Encounter Summary ---
Author Organization [facility] Address [address] [place] [address] Care Team Providers Care Math Instructor Name Role Phone Elizabeth Dsouza MD Primary Care Provider [phone] Encounter Details Date Type Department Care Team (Late st Contact Info) Description 07/26/2022 Telephone [facility] Pulmonology & Critical Care - [address] [phone] Amilcar Damian MD MPH 111 [facility], Level [address] [place] [address] Social History Tobacco Use Types [...] Telephone Encounter - Maynor Hutson - 07/26/2022 8839 EDT Bronchoscopy Patient Instructions After careful medical [...] - You will NEED TO BRING A COMPLIANCE COUNSEL. Please make sure you have someone accompany [...] Coumadin, Warfarin, etc.) please speak with your enforcement manager about this. Your appointment date: 07/30/22 and time: 11:30 am arrival for a 1:30pm start. Please check in at Registration on the 3rd floor of the [facility] building. You will then proceed to Surgery and Procedures located on the 3rd floor in the [facility] of the [facility] building. Please call the PFT Lab at [phone] or the Pulmonary department at [phone] if you have any concerns, questions or need clarification about any of the above instructions. Thank you. documented in this encounter Plan of Treatment Upcoming Encounters Date Type Department Care Team (Late st Contact Info) Description 04/06/2024 9:30 EST Hospital Encounter [facility] Endoscopy [address] [place], [place] [address] Angélica Hernandez MD [address] [place] [phone] 05/17/2024 8:00 EST Appointment [facility] CT Scan [address] [place], [place] [phone] 05/19/2024 13:30 EST Appointment [facility] Endoscopy [address] [place], [place] [address] Angélica Hernandez MD [address] [place] [phone] 05/28/2024 14:15 EDT Nurse Only [facility] Cancer Treatment [place] [address] [place], [place] [address] 05/28/2024 14:30 EDT Office Visit [facility] Cancer Treatment Center [address] [place] [address] Kaiser [place] MD 111 [facility] 2 [place] [phone] documented as of this encounter Visit Diagnoses Not on filedocumented in this encounter Care Teams Math Instructor Relationship Specialty Start Date End Date Elizabeth Dsouza MD [address] [place] [phone] PCP - General 02/13/12 documented as of this encounter
--- OUTSIDE RECORDS SUMMARY | 2024-03-25 15:24 | XMS_ITS | Encounter Summary ---
Author Organization [facility] Address [address] [place] [address] Care Team Providers Care Foot Cutter Name Role Phone Elizabeth Dsouza MD Primary Care Provider [phone] Reason for Referral * Test (Routine/Next Available) - Authorization Not Required Specialty Diagnoses / Procedures [facility] Referred To Contact Diagnoses Lung nodule Procedures PULMONARY FUNCTION TESTING Juliocesar Limon MD Referral ID Status Reason Start Date Expiration Date Visits Requested Visits Authorized [id number] Authorization Not Required 07/15/2022 1 1 Reason for Visit * Reason Comments New Patient Visit DC Encounter Details Date Type Department Care Team (Late st Contact Info) Description 07/15/2022 16:00 EDT Office Visit [facility] Pulmonology & Critical Care - [facility] [address] [place] [address] Amilcar Damian MD MPH 111 [facility], Level [address] [place] [address] Lung nodule (Primary Dx) Social [...] go over this. Call Audrey with questions [phone] documented in this encounter Progress Notes * Audrey Mix RN - 07/15/2022 1600 EDT Interventional Pulmonary Pre-Op Nursing Note Procedure Date: TBD Provider: Dr. Damian Time of procedure finalized on: 4 days prior to procedure. There is a chance this could change and in that case patient will be notified ALEK Bronchoscopy procedure day was discussed with Melodie Hodge - A otr company truck driver is required (this does not [...] finalize. These results will show up on [employer] at the time they are released to [...] Limon M.D. Department of Pulmonary/Critical Care Medicine B2B Managed Service Sales Exec, F-2 Attestation statement: Supervising Physician Amilcar Damian [...] with Chantix. Using e-cigarettes. Lives alone in [place], [place]. Maintains home. Denies functional limitations; although notes exertion is limited by right-sided sciatic pain. Denies chest pain or pressure. No palpitations. No exertional dyspnea, although minimal ambulation attributed to lower extremity discomfort. Not regularly followed by cardiology; underwent PCI in 1995 for NSTEMI. No further cardiac events. 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 No occupational exposures to chemicals or fumes. Social History: Lives alone in [place], [place]. Multiple pets within the home; including cats, dogs, and parakeets. Denies issues with mold or mildew. Family History: No family history of lung cancer. 4 adult children are healthy. PMHx: HTN HLD CAD s/p PCI [1995] at [facility] Lower extremity pain PSHx: has a [...] Damian. Juliocesar Limon MD [facility] Fellow Attestation statement: I performed or was [...] Info) Description 04/06/2024 9:30 EST Hospital Encounter [facility] Endoscopy [address] [place] [address] Angélica Hernnadez MD [address] [phone] 05/17/2024 8:00 EST Appointment [facility] CT Scan [address] [place], [place] [address] 05/19/2024 13:30 EST Appointment [facility] Endoscopy [address] [place], [place] [address] Angélica Hernandez MD [address] [phone] 05/28/2024 14:15 EDT Nurse Only [facility] Cancer Treatment [address] [phone] 05/28/2024 14:30 EDT Office Visit [facility] Cancer Treatment [address] [phone] Kaiser Miller MD 111 [facility] 2 [place] [address] documented as of this encounter Results * PULMONARY FUNCTION TESTING (07/26/2022 14:15 EDT) 07/26/2022 14:1 5 EDT us Juliocesar Limon MD PFT ORDERABLES Final Result [facility] PFT documented in this encounter Visit Diagnoses Diagnosis Lung nodule- Primary Solitary pulmonary nodule documented in this encounter Orders Case Request Count Last Ordered Date First Orde red Date CASE REQUEST OPERATING ROOM 1 07/15/2022 documented in this encounter Care Teams Foot Cutter Relationship Specialty Start Date End Date Elizabeth Dsouza MD [address] [place] [address] PCP - General 02/13/12 documented as of this encounter
--- OUTSIDE RECORDS SUMMARY | 2024-03-25 15:24 | XMS_ITS | Encounter Summary ---
Author Organization [facility] Address [address] [place] [address] Care Team Providers Care Air Pollution Engineer Name Role Phone Elizabeth Dsouza MD Primary Care Provider [phone] Reason for Visit * Reason Onset Date Comments Appointment Related 07/29/2022 Encounter Details Date Type Department Care Team (Late st Contact Info) Description 07/29/2022 Telephone [facility] Pulmonology & Critical Care - [address] [phone] Amilcar Damian MD MPH [address] [place] [address], Level [address] [place] [address] Appointment Related Social History Tobacco [...] Telephone Encounter - Maribel BeckRaheel - 07/29/2022 5549 EDT Patient was called this past Friday [...] - You will NEED TO BRING A DENTURES LAB TECHNICIAN. Please make sure you have someone accompany [...] Coumadin, Warfarin, etc.) please speak with your project controls specialist about this. Your appointment is on 07.30.2022 with a scheduled start time of 7:30AM and an arrival time of 5:30AM. Please check in at Registration on the 3rd floor of the [facility] building. You will then proceed to Surgery and Procedures located on the 3rd floor in the [facility] of the [facility] building. Please call Pulmonary at [phone] or the PFT Lab at [phone] if you have any concerns, questions or need clarification about any of the above instructions. Thank you. documented in this encounter Plan of Treatment Upcoming Encounters Date Type Department Care Team (Late st Contact Info) Description 04/06/2024 9:30 EST Hospital Encounter [facility] [place] [address] [place] [address] Angélica Hernandez MD [address] [place] [phone] 05/17/2024 8:00 EST Appointment [facility] CT Scan [address] [place] [address] 05/19/2024 13:30 EST Appointment [facility] Endoscopy [address] [place] [address] Angélica Hernandez MD [address] [phone] 05/28/2024 14:15 EDT Nurse Only [facility] Cancer [address] [address] 05/28/2024 14:30 EDT Office Visit [facility] Cancer [address] [address] Kaiser Miller MD 111 [facility] 2 [place] [address] documented as of this encounter Visit Diagnoses Not on filedocumented in this encounter Care Teams Air Pollution Engineer Relationship Specialty Start Date End Date Elizabeth Dsouza MD 4 [place] [phone] PCP - General 02/13/12 documented as of this encounter
--- OUTSIDE RECORDS SUMMARY | 2024-03-25 15:24 | XMS_ITS | Encounter Summary ---
Author Organization [facility] Address [address] [place] [address] Care Team Providers Care Clinical Services Manager Name Role Phone Elizabeth Dsouza MD Primary Care Provider [phone] Reason for Visit * Reason Onset Date Comments Follow-up 07/23/2022 Encounter Details Date Type Department Care Team (Late st Contact Info) Description 07/23/2022 Telephone [facility] Pulmonology & Critical Care - [facility] [address] [place] [address] Audrey Mix RN Follow-up Social History Tobacco [...] Encounter - Audrey Mix RN - 07/23/2022 2521 EDT Called PCP office for medication reconciliation [...] Info) Description 04/06/2024 9:30 EST Hospital Encounter [facility] Endoscopy [address] [place] [address] Angélica Hernandez MD [address] [place] [phone] 05/17/2024 8:00 EST Appointment [facility] CT Scan [address] [place] [address] 05/19/2024 13:30 EST Appointment [facility] Endoscopy [address] [place] [address] Angélica Hernandez MD [address] [place] [phone] 05/28/2024 14:15 EDT Nurse Only [facility] [place] [facility] Cancer Treatment [place] [address] [place], [place] [address] 05/28/2024 14:30 EDT Office Visit [facility] Cancer Treatment [place] [address] [place] [address] Kaiser Miller MD 111 [facility] 2 [place] [address] documented as of this encounter Visit Diagnoses Not on filedocumented in this encounter Care Teams Clinical Services Manager Relationship Specialty Start Date End Date Elizabeth Dsouza MD [address] [place] [phone] PCP - General 02/13/12 documented as of this encounter
--- OUTSIDE RECORDS SUMMARY | 2024-03-25 15:24 | XMS_ITS | Encounter Summary ---
Author Organization [facility] Address [address] [place] [address] Care Team Providers Care Medical Accounting Clerk Name Role Phone Elizabeth Dsouza MD Primary Care Provider [phone] Reason for Referral * Radiology Services (Routine/Next Available) - Closed Specialty Diagnoses / Procedures Referred By Contac t Referred To Contact Nuclear Medicine Diagnoses Lung nodule Procedures PET CT EYE TO THIGH Amilcar Damian MD MPH Phone: tel: fax: [facility] Referral ID Status Reason Start Date Expiration Date Visits Re quested Visits Authorized [id number] Closed 07/19/2022 09/02/2022 1 1 Reason for Visit * Radiology Services (Routine/Next Available) - Closed Specialty Diagnoses / Procedures [facility] Referred To Contact Nuclear Medicine Diagnoses Lung nodule Procedures PET CT EYE TO THIGH Amilcar Damian MD MPH Phone: tel: fax: [facility] Referral ID Status Reason Start Date Expiration Date Visits Re quested Visits Authorized [id number] Closed 07/19/2022 09/02/2022 1 1 Encounter Details Date Type Department Care Team (Latest Contact Info) Description 07/26/2022 8:24 EDT - 07/26/2022 10:18 EDT Hospital Encounter [facility] Radiology Nuclear Medicine and PET [address] [address] Lung nodule Discharge Disposition: Home or Self [...] Hospital Encounter [facility] Endoscopy [address] [place], [place] [address] Angélica Hernandez MD [address] [place] [phone] 05/17/2024 8:00 EST Appointment [facility] CT Scan [address] [place], [place] [address] 05/19/2024 13:30 EST Appointment [facility] Endoscopy [address] [place], [place] [address] Angélica Hernandez MD [address] [place] [phone] 05/28/2024 14:15 EDT Nurse Only [facility] [address] [place] [address] 05/28/2024 14:30 EDT Office Visit [facility] Cancer Treatment [address] [address] Kaiser Miller MD 111 [facility] 2 [place] [address] documented as of this encounter [...] the IV injection of 8.24 mCi of [id number], 3D TOF PET imaging was obtained from the skull base to upper thighs using a [employer] digital ??PET/CT system. ??The blood glucose level [...] following the IV injection of 8.24 mCi [id number], 3D TOF PET imaging was obtained from the skullbase to upper thighs using a [employer] digital PET/CT system. Theblood glucose level prior [...] artery calcification andcholelithiasis. Amilcar Damian MD MPH [facility] ORDERABLES Final Result * (ABNORMAL) POCT GLUCOSE, INTERFACED (07/26/2022 9:05 EDT) Glucose, POC 123(H) 70 - 100 mg/dL 07/26/2022 9:07 EDT [facility] HN LAB POC COMMENT (GLUCOSE) Test Performed by Nursing Services 07/26/2022 9:07 EDT [facility] Blood CAPILLARY BLOOD / Unknown 07/26/2022 9:05 EDT 07/26/2022 9:06 EDT us Provider Unknown POINT OF CARE TEST ORDERABLE S Final Result [facility] [address] [place] [address] documented in this encounter Visit Diagnoses Diagnosis [...] 07/26/2022 documented in this encounter Care Teams Medical Accounting Clerk Relationship Specialty Start Date End Date Elizabeth Dsouza MD [address] [place] [phone] PCP - General 02/13/12 documented as of this encounter
--- OUTSIDE RECORDS SUMMARY | 2024-03-25 15:24 | XMS_ITS | Encounter Summary ---
Author Organization [facility] Address [address] [place] [address] Care Team Providers Care Delivery Sales Worker Name Role Phone Elizabeth Dsouza MD Primary Care Provider [phone] Encounter Details Date Type Department Care Team (Late st Contact Info) Description 07/26/2022 13:45 EDT Phlebotomy Only [facility] ED Center 2 Phlebotomy [address] [place] [address] Flow Floor Attendant, Acc Phlebotomy Lung nodule Social History Tobacco [...] Info) Description 04/06/2024 9:30 EST Hospital Encounter [facility] [place] [address] [place], [place] [address] Angélica Hernandez MD [address] [phone] 05/17/2024 8:00 EST Appointment [facility] CT Scan [address] [place] [address] 05/19/2024 13:30 EST Appointment [facility] Endoscopy [address] [place] [address] Angélica Hernandez MD [address] [phone] 05/28/2024 14:15 EDT Nurse Only [facility] [place] [facility] Cancer [address] [address] 05/28/2024 14:30 EDT Office Visit [facility] Cancer [address] [address] Kaiser Miller MD 111 [facility] 2 [place] [address] documented as of this encounter Procedures Procedure Name Priority Date/Time Associated Diagnosis Comments COMPLETE BLOOD COUNT AND DIFFERENTIAL Routine 07/26/2022 14:08 EDT Lung nodule COMPREHENSIVE METABOLIC PANEL (CMP) Routine 07/26/2022 14:08 EDT Lung nodule documented in this encounter Results * (ABNORMAL) COMPLETE BLOOD COUNT AND DIFFERENTIAL (07/26/2022 14:08 EDT) WBC 6.58 4.00 - 12.40 K/cmm 07/26/2022 14:58 EDT [facility] RBC 4.87 3.86 - 5.04 M/cmm 07/26/2022 14:58 EDT [facility] Hemoglobin 15.3(H) 11.6 - 15.2 gm/dL 07/26/2022 14:58 [facility] HCT 46.2(H) 34.9 - 44.4 % 07/26/2022 14:58 [facility] MCV 95 81 - 98 fl 07/26/2022 14:58 [facility] MCH 31.4 26.7 - 33.3 pg 07/26/2022 14:58 [facility] MCHC 33.1 32.1 - 35.9 gm/dL 07/26/2022 14:58 [facility] RDW-CV 12.9 <14.7 % 07/26/2022 14:58 [facility] RDW-SD 44.9 <50.4 fl 07/26/2022 14:58 [facility] PLT 195 141 - 377 K/cmm 07/26/2022 14:58 [facility] MPV 10.7 9.5 - 12.7 fl 07/26/2022 14:58 [facility] % Neutrophils 69.4 % 07/26/2022 14:58 [facility] % Lymphocytes 21.9 % 07/26/2022 14:58 [facility] % Monocytes 6.1 % 07/26/2022 14:58 [facility] % Eosinophils 1.8 % 07/26/2022 14:58 [facility] % Basophils 0.6 % 07/26/2022 14:58 [facility] % Immature Grans 0.2 % 07/27/19 14:58 [facility] Absolute Neutrophils 4.57 2.20 - 8.85 K/cmm 07/26/2022 14:58 [facility] Absolute Lymphocytes 1.44 1.09 - 3.30 K/cmm 07/26/2022 14:58 [facility] Absolute Monocytes 0.40 0.10 - 0.80 K/cmm 07/26/2022 14:58 [facility] Absolute Eosinophils 0.12 0.03 - 0.61 K/cmm 07/26/2022 14:58 T [facility] ABS Basophils 0.04 0.01 - 0.11 K/cm 07/26/2022 14:58 [facility] Absolute Immature Grans 0.01 0.00 - 0.06 K/cm 07/26/2022 14:58 [facility] Type of Differential: Auto 07/26/2022 14:58 [facility] Blood VENOUS BLOOD / Unknown Venipuncture / Unknown 07/26/2022 14:08 EDT 07/26/2022 14:47 EDT us Elizabeth Asencio MUTUEL TELLER PACKAGES & DNA PROBE ORDERAB LES Final Result [facility] [address] [place] [address] * (ABNORMAL) COMPREHENSIVE METABOLIC PANEL (CMP) (07/26/2022 14:08 EDT) Sodium 143 136 - 145 mmol/L 07/26/2022 15:45 [facility] Potassium 4.2 3.5 - 5.0 mmol/L 07/26/2022 15:45 [facility] Chloride 105 96 - 110 mmol/L 07/26/2022 15:45 [facility] CO2 Total 29 22 - 32 mmol/L 07/26/2022 15:45 [facility] Glucose 106(H) 70 - 100 mg/dl 07/26/2022 15:45 [facility] BUN 15 10 - 26 mg/dL 07/26/2022 15:45 [facility] Creatinine 1.41(H) 0.52 - 1.04 mg/dL 07/26/2022 15:45 [facility] eGFR 41(L) >60 mL/min/1.7 3m2 07/26/2022 15:45 [facility] Total Protein 6.9 6.3 - 8.2 g/dL 07/26/2022 15:45 T [facility] Albumin 4.4 3.4 - 4.9 g/dL 07/26/2022 15:45 [facility] Alkaline Phosphatase 59 38 - 126 U/L 07/26/2022 15:45 [facility] AST 21 15 - 46 U/L 07/26/2022 15:45 [facility] ALT 20 <35 U/L 07/26/2022 15:45 [facility] Bilirubin, Total 1.0 <1.4 mg/dL 07/27/19 15:45 [facility] Calcium 10.0 8.5 - 10.5 mg/dL 07/26/2022 15:45 [facility] Albumin/Globulin Ratio 1.8 1.0 - 2.5 07/26/2022 15:45 [facility] Anion Gap 9 5 - 14 mmol/L 07/26/2022 15:45 [facility] Blood VENOUS BLOOD / Unknown Venipuncture / Unknown 07/26/2022 14:08 EDT 07/26/2022 14:57 EDT us Elizabeth Asencio MUTUEL TELLER CHEMISTRY & BLOOD GAS ORDERA BLES Final Result [facility] [address] [place] [address] documented in this encounter Visit Diagnoses Diagnosis Lung nodule Solitary pulmonary nodule documented in this encounter Care Teams Delivery Sales Worker Relationship Specialty Start Date End Date Elizabeth Dsouza MD [address] [place] [phone] PCP - General 02/13/12 documented as of this encounter
--- OUTSIDE RECORDS SUMMARY | 2024-03-25 15:24 | XMS_ITS | Encounter Summary ---
Author Organization [facility] Address [address] [place] [address] Care Team Providers Care Dumb Waiter Operator Name Role Phone Elizabeth Dsouza MD Primary Care Provider [phone] Encounter Details Date Type Department Care Team (Late Contact Info) Description 08/01/2022 Prep for Procedure [facility] Pulmonology & Critical Care - [facility] [address] [place], [place] [phone] Amilcar Damian MD MPH 111 [facility], Level [address] [place] [address] Social History Tobacco Use Types [...] 9:30 EST Hospital Encounter [facility] Endoscopy [address] [place], [place] [address] Angélica Hernandez MD [address] [place] [phone] 05/17/2024 8:00 EST Appointment [facility] CT Scan [address] [place], [place] [address] 05/19/2024 13:30 EST Appointment [facility] Endoscopy [address] [place] [address] Angélica Hernandez MD [address] [place] [phone] 05/28/2024 14:15 EDT Nurse Only [facility] Cancer Treatment [address] [phone] 05/28/2024 14:30 EDT Office Visit [facility] Cancer Treatment [address] [phone] Kaiser Miller MD 111 [facility] 2 [place] [address] documented as of this encounter Visit Diagnoses Not on filedocumented in this encounter Care Teams Dumb Waiter Operator Relationship Specialty Start Date End Date Elizabeth Dsouza MD [address] [place] [phone] PCP - General 02/13/12 documented as of this encounter
--- OUTSIDE RECORDS SUMMARY | 2024-03-25 15:24 | XMS_ITS | Encounter Summary ---
Author Organization [facility] Address [address] [place] [address] Care Team Providers Care Histotechnologist Name Role Phone Elizabeth Dsouza MD Primary Care Provider [phone] Encounter Details Date Type Department Care Team (Late st Contact Info) Description 07/23/2022 Orders Only [facility] Pulmonology & Critical Care - [facility] [address] [place] [address] Audrey Mix, ABEL Lung nodule (Primary Dx) [...] 9:30 EST Hospital Encounter [facility] [place] Endoscopy [address] [place] [address] Angélica Hernandez MD [address] [address] 05/17/2024 8:00 EST Appointment [facility] CT Scan [address] [place] [address] 05/19/2024 13:30 EST Appointment [facility] Endoscopy [address] [place] [address] Angélica Hernandez MD [address] [phone] 05/28/2024 14:15 EDT Nurse Only [facility] Cancer [address] [phone] 05/28/2024 14:30 EDT Office Visit [facility] Cancer [address] [phone] Kaiser Miller MD 111 [facility], [facility] [address] [place] [address] documented as of this encounter Results * (ABNORMAL) COMPLETE BLOOD COUNT AND DIFFERENTIAL (07/26/2022 14:08 EDT) WBC 6.58 4.00 - 12.40 K/cmm 07/26/2022 14:58 EDT [facility] RBC 4.87 3.86 - 5.04 M/cmm 07/26/2022 14:58 EDT [facility] Hemoglobin 15.3(H) 11.6 - 15.2 gm/dL 07/26/2022 14:58 EDT [facility] HCT 46.2(H) 34.9 - 44.4 % 07/26/2022 14:58 EDT [facility] MCV 95 81 - 98 fl 07/26/2022 14:58 [facility] MCH 31.4 26.7 - 33.3 pg 07/26/2022 14:58 [facility] MCHC 33.1 32.1 - 35.9 gm/dL 07/26/2022 14:58 [facility] RDW-CV 12.9 <14.7 % 07/26/2022 14:58 [facility] RDW-SD 44.9 <50.4 fl 07/26/2022 14:58 [facility] PLT 195 141 - 377 K/cmm 07/26/2022 14:58 [facility] MPV 10.7 9.5 - 12.7 fl 07/26/2022 14:58 [facility] % Neutrophils 69.4 % 07/26/2022 14:58 [facility] % Lymphocytes 21.9 % 07/26/2022 14:58 [facility] % Monocytes 6.1 % 07/26/2022 14:58 [facility] % Eosinophils 1.8 % 07/26/2022 14:58 [facility] % Basophils 0.6 % 07/26/2022 14:58 [facility] % Immature Grans 0.2 % 07/27/19 14:58 [facility] Absolute Neutrophils 4.57 2.20 - 8.85 K/cmm 07/26/2022 14:58 [facility] Absolute Lymphocytes 1.44 1.09 - 3.30 K/cmm 07/26/2022 14:58 [facility] Absolute Monocytes 0.40 0.10 - 0.80 K/cmm 07/26/2022 14:58 [facility] Absolute Eosinophils 0.12 0.03 - 0.61 K/cmm 07/26/2022 14:58 [facility] ABS Basophils 0.04 0.01 - 0.11 K/cmm 07/26/2022 14:58 [facility] Absolute Immature Grans 0.01 0.00 - 0.06 K/cmm 07/26/2022 14:58 EDT [facility] Type of Differential: Auto 07/26/2022 14:58 [facility] Blood VENOUS BLOOD / Unknown Venipuncture / Unknown 07/26/2022 14:08 EDT 07/26/2022 14:47 EDT us Elizabeth Asencio NP PACKAGES & DNA PROBE ORDERAB LES Final Result [facility] [address] [place] [address] * (ABNORMAL) COMPREHENSIVE METABOLIC PANEL (CMP) (07/26/2022 14:08 EDT) Sodium 143 136 - 145 mmol/L 07/26/2022 15:45 [facility] Potassium 4.2 3.5 - 5.0 mmol/L 07/26/2022 15:45 [facility] Chloride 105 96 - 110 mmol/L 07/26/2022 15:45 [facility] CO2 Total 29 22 - 32 mmol/L 07/26/2022 15:45 [facility] Glucose 106(H) 70 - 100 mg/dl 07/26/2022 15:45 [facility] BUN 15 10 - 26 mg/dL 07/26/2022 15:45 [facility] Creatinine 1.41(H) 0.52 - 1.04 mg/dL 07/26/2022 15:45 [facility] eGFR 41(L) >60 mL/min/1.7 3m2 07/26/2022 15:45 [facility] Total Protein 6.9 6.3 - 8.2 g/dL 07/26/2022 15:45 [facility] Albumin 4.4 3.4 - 4.9 g/dL 07/26/2022 15:45 [facility] Alkaline Phosphatase 59 38 - 126 U/L 07/26/2022 15:45 [facility] AST 21 15 - 46 U/L 07/26/2022 15:45 EDT [facility] ALT 20 <35 U/L 07/26/2022 15:45 EDT [facility] Bilirubin, Total 1.0 <1.4 mg/dL 07/27/19 15:45 EDT [facility] Calcium 10.0 8.5 - 10.5 mg/dL 07/26/2022 15:45 EDT [facility] Albumin/Globulin Ratio 1.8 1.0 - 2.5 07/26/2022 15:45 EDT [facility] Anion Gap 9 5 - 14 mmol/L 07/26/2022 15:45 T [facility] Blood VENOUS BLOOD / Unknown Venipuncture / Unknown 07/26/2022 14:08 EDT 07/26/2022 14:57 EDT Elizabeth Asencio DOUBLE BACKER CHEMISTRY & BLOOD GAS ORDERA BLES Final Result [facility] [address] [place] [address] documented in this encounter Visit Diagnoses Diagnosis Lung nodule- Primary Solitary pulmonary nodule documented in this encounter Care Teams Histotechnologist Relationship Specialty Start Date End Date Elizabeth Dsouza MD 4 [facility] [place] [address] PCP - General 02/13/12 documented as of this encounter
--- OUTSIDE RECORDS SUMMARY | 2024-03-25 15:25 | XMS_ITS | Encounter Summary ---
Author Organization [facility] Address [address] [place] [address] Care Team Providers Care Manager Credit Collections Name Role Phone Elizabeth Dsouza MD Primary Care Provider [phone] Reason for Visit * (Routine/Next Available) - Receiving Office to Obtain Authorization Specialty Diagnoses / Procedures Referred By Loli rose Referred To Contact Procedures XR OUTSIDE IMAGES DEXA Imaging, External Referral ID Status Reason Start Date Expiration Date Visits Requested Visits Authorized [id number] Receiving Office to Obtain Authorization 2022 1 1 Encounter Details Date Type Department Care Team (Latest Contact Info) Description 05/22/2022 - 05/22/2022 23:59 EST Hospital Encounter [facility] Radiology - Main [place] [address] [place] [address] Discharge Disposition: Home or Self Care Social [...] Hospital Encounter [facility] Endoscopy [address] [place], [place] [address] Angélica Hernandez MD [address] [place] [phone] 05/17/2024 8:00 EST Appointment [facility] CT Scan [address] [place] [address] 05/19/2024 13:30 EST Appointment [facility] Endoscopy [address] [place] [address] Angélica Hernandez MD [address] [phone] 05/28/2024 14:[address] [facility] Cancer [address] [phone] 05/28/2024 14:[address] [facility] Cancer [address] [phone] Kaiser Miller MD 111 [facility], [facility] 2 [place] [address] documented as of this encounter Procedures Procedure Name Priority Date/Time Associated Diagnosis Comments XR OUTSIDE IMAGES DEXA Routine 05/22/2022 16:10 EST documented in this encounter Results * XR OUTSIDE IMAGES DEXA (05/22/2022 16:10 EST) Narrative REBECABELL - 2022 16:10 EDT This is a non-reportable exam. us External Imaging IMG OTHER IMAGING ORDERABLES Fi nal Result PEREZ documented in this encounter Visit Diagnoses Not on filedocumented in this encounter Care Teams Manager Credit Collections Relationship Specialty Start Date End Date Elizabeth Dsouza MD [address] [place] [address] PCP - General 02/13/12 documented as of this encounter
--- OUTSIDE RECORDS SUMMARY | 2024-03-25 15:25 | XMS_ITS | Encounter Summary ---
Author Organization [facility] Address [address] [place] [address] Care Team Providers Care Kindergarten Assistant Name Role Phone Elizabeth Dsouza MD Primary Care Provider [phone] Encounter Details Date Type Department Care Team [...] Info) Description 04/06/2024 9:30 EST Hospital Encounter [facility] [place] [address] [place] [address] Angélica Hernandez MD [address] [phone] 05/17/2024 8:00 EST Appointment [facility] CT Scan [address] [place] [address] 05/19/2024 13:30 EST Appointment [facility] Endoscopy [address] [place] [address] Angélica Hernandez MD [address] [phone] 05/28/2024 14:15 EDT Nurse Only [facility] Cancer Treatment [address] [address] 05/28/2024 14:30 EDT Office Visit [facility] Cancer Treatment [address] [address] Kaiser Miller MD 111 [facility] 2 [place] [address] documented as of this encounter Visit Diagnoses Not on filedocumented in this encounter Care Teams Kindergarten Assistant Relationship Specialty Start Date End Date Elizabeth Dsouza MD 4 [facility] [place] [phone] PCP - General 02/13/12 documented as of this encounter
--- OUTSIDE RECORDS SUMMARY | 2024-03-25 15:25 | XMS_ITS | Encounter Summary ---
Author Organization [facility] Address [address] [place] [address] Care Team Providers Care Motorboat Mechanic Inboard Name Role Phone Elizabeth Dsouza MD Primary Care Provider [phone] Reason for Referral * Radiology Services (Routine/Next Available) - Authorization Not Required Specialty Diagnoses / Procedures Referred By Loli rose Referred To Contact Diagnoses Abnormal x-ray of lung Procedures IR BIOPSY Elizabeth Dsouza MD 4 [place] [address] Phone: tel: fax: [facility] Referral ID Status Reason Start Date Expiration Date Visits Requested Visits Authorized [id number] Authorization Not Required 05/28/2022 1 1 Reason for Visit * Radiology Services (Routine/Next Available) - Authorization Not Required Specialty Diagnoses / Procedures Referred By Loli rose Referred To Contact Diagnoses Abnormal x-ray of lung Procedures IR BIOPSY Elizabeth Dsouza MD [address] [place] [address] Phone: tel: fax: [facility] Referral ID Status Reason Start Date Expiration Date Visits Requested Visits Authorized [id number] Authorization Not Required 05/28/2022 1 1 Encounter Details Date Type Department Care Team (Late st Contact Info) Description 06/25/2022 6:34 EDT - 06/25/2022 11:24 EDT Hospital Encounter [facility] Interventional Radiology - [address] [address] Rigo Jasmine PA-C [address] [place] [phone] Sohail Magana MD [address] [place] [phone] Abnormal x-ray of lung; Lung nodule [...] stretcher independently Patient greeted and identified per [facility] center policy. Allergies and procedure verified & patient oriented to Unit. Reviewed all pre-procedure instructions with Melodie Hodge. All questions answered & patient verbalizes willingness and understandi ng of pre-procedure education. Patient stretcher in low position with side rails up & call bellwithin patient reach. Patient's significant other and son are at bedside and driver utility worker home. * Melodie Garcia RN - 06/25/2022 [...] guided RUL lung biopsy Date Performed: 06/25/2022 Radiologist/Flush Tester(s): [place] Sedation/Anesthesia: Moderate Time Out: A time-out [...] pain. In no distress. Tolerating procedure. * eMlodie Garcia RN - 06/25/2022 0858 EDT Pt [...] Info) Description 04/06/2024 9:30 EST Hospital Encounter [facility] Endoscopy [address] [place] [address] Angélica Hernandez MD [address] [place] [phone] 05/17/2024 8:00 EST Appointment [facility] CT Scan [address] [place] [address] 05/19/2024 13:30 EST Appointment [facility] Endoscopy [address] [place] [address] Angélica Hernandez MD [address] [place] [phone] 05/28/2024 14:15 EDT Nurse Only [facility] Cancer Treatment [place] [address] [place] [address] 05/28/2024 14:30 EDT Office Visit [facility] [address] [place] [address] Kaiser Miller MD [address] [place] [address] 2 [place] [phone] documented as of this encounter Procedures Procedure Name Priority Date/Time Associated Diagnosis Comments XR CHEST 1 VIEW Routine 06/25/2022 11:35 EDT IR BIOPSY Routine 06/25/2022 9:49 EDT Abnormal x-ray of lung NON AIR DRIER MACHINE OPERATOR/FNA CYTOLOGY Routine 06/25/2022 9:14 EDT Abnormal x-ray [...] of the right costophrenic angle from the [id number]. The cardiomediastinal silhouette appears normal aside from [...] exclusionof the right costophrenic angle from the [id number]. The cardiomediastinal silhouette appears normal aside from aorticcalcification. Visualized bones and superficial soft tissues are grossly unremarkable. IMPRESSION No evidence of pneumothorax status post right lung biopsy. Sohail Magana MD IMG DIAGNOSTIC IMAGING MARC [...] biopsy showed local pulmonary hemorrhage without hemoptysis. [place] were removed, hemostasis obtained, and a sterile [...] lobe nodule. Multiple aspirates were then obtained [id number], 15 cm long Chiba needles and given to the cytopathologist forevaluation. Thereafter, multiple 20-gauge core biopsies were performedthru the lesion at the request of the onsite cytopathologist. A repeatscan obtained immediately after the biopsy showed local pulmonary hemorrhage without hemoptysis. [place] were removed, hemostasisobtained, and a sterile dressing was placed. The patient tolerated the procedure well. The patient was then placed in the right lateral decubitus position andtransferred to postprocedure recovery for monitoring. IMPRESSION Successful CT-guided aspiration and core biopsy of a 1.2 cm nodule withinthe right upper lobe. us Elizabeth Dsouza MD IM IR ORDERABLES Final Result * SURGICAL PATHOLOGY (06/25/2022 9:14 EDT) Note to Patient The following pathology results have been interpreted by your pathologist and may be available to you before your health provider has had the opportunity to review them. Please allow time for your provider to receive these results and explore management options, if applicable. 2022 14:54 [facility] Final Diagnosis A. 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 2022 14:54 [facility] Diagnosis Comment Please see and correlate with the finding(s) of the concurrent cytology specimen ([id number]). 2022 14:54 [facility] Attestation There was significant resident/fellow involvement in the diagnostic evaluation of this case. By the signature below, the attending physician certifies that they have personally conducted a gross and/or microscopic examination of the described specimens and rendered or confirmed the above diagnosis. 2022 14:54 [facility] at 1454 Clinical History Smoker with right lung 1 cm nodule; evaluate for malignancy; clinical diagnosis code: R91.8 2022 14:54 [facility] Gross Description A. Received in formalin labelled with proper patient identification (initials B, C) and not otherwise specified are multiple irregular and cylindrical brown tissue fragments ranging from less than 0.1 cm in greatest dimension to 0.4 by less than 0.1 cm. Entirely submitted in A1-A2. CHENG MCCLAIN(ASCP) 06/25/2022 12:12 2022 14:54 EDT [facility] Resident/Bashir w: Sigrid Astorga DO 2022 14:54 EDT [facility] Performing Lab [facility] 2022 14:54 EDT [facility] Scanned Images 2022 14:54 EDT [facility] Tissue ENTIRE RIGHT LUNG / Unknown Collection, Other / Unknown 06/25/2022 9:14 EDT 06/25/2022 10:36 EDT us Rigo Jasmine PA-C PATHOLOGY ORDERABLES Teresa lucia Result [facility] [address] [place] [address] * NON AIR DRIER MACHINE OPERATOR/FNA CYTOLOGY (06/25/2022 9:14 EDT) Note to Patient The following pathology results have been interpreted by your pathologist and may be available to you before your health provider has had the opportunity to review them. Please allow time for your provider to receive these results and explore management options, if applicable. 07/02/2022 10:58 EDT [facility] Final Diagnosis A. LUNG, RIGHT, 1 CM NODULE, CT-GUIDED FINE NEEDLE ASPIRATION: - Suspicious for squamous cell carcinoma. See comment. 07/02/2022 10:58 EDT [facility] Diagnosis Comment The specimen [...] dysplastic squamous epithelium. Concurrent surgical pathology biopsy ([id number]) was reviewed and deeper levels examined. The core biopsy shows dysplastic squamous epithelium similar to that present on the cytology specimen. The core also shows atypical pneumocytes which are not present on the cytology specimen. Chip Loft Worker slides of this case were reviewed by Dr. Karan Nj. 07/02/2022 10:58 [facility] Attestation By the signature below, the attending physician certifies that they have personally conducted a gross and/or microscopic examination of the described specimens and rendered or confirmed the above diagnosis. 07/02/2022 10:58 [facility] at 1058 Rapid Diagnosis [...] Dr.S Lizama; 06/25/2022; 9:20 AM 07/02/2022 10:58 [facility] Clinical History 66 yo female smoker with right lung 1 cm nodule. evaluate for malignancy 07/02/2022 10:58 [facility] Gross Description A. 17 fixed prepared slides, 3 air dried prepared slides, and 1 tube of RPMI for cell block processing were receive 07/02/2022 10:58 [facility] Performing Lab [facility] 07/02/2022 10:58 T [facility] Scanned Images 07/02/2022 10:58 [facility] Fine Needle Aspirate ENTIRE RIGHT LUNG / Unknown 06/25/2022 9:14 EDT 06/25/2022 9:52 EDT us Rigo Jasmine PA-C PATHOLOGY ORDERABLES Teresa lucia Result [facility] [address] [place] [address] * PLATELET COUNT (06/25/2022 7:31 EDT) PLT 179 141 - 377 K/cmm 06/25/2022 8:10 EDT [facility] Blood VENOUS BLOOD / Unknown Venipuncture / Unknown 06/25/2022 7:31 EDT 06/25/2022 7:34 EDT Glynn Vann PA-C HEMATOLOGY & PF4 ORDERABL ES Final Result Performing Organization Address [facility] de Phone Number [facility] [address] [place] [address] * PROTIME (06/25/2022 7:31 EDT) I.N.R. 1.1 0.9 - 1.1 Ratio 06/25/2022 7:51 EDT [facility] Pro Time 12.7 9.7 - 12.8 secs 06/25/2022 7:51 EDT [facility] Blood VENOUS BLOOD / Unknown Venipuncture / Unknown 06/25/2022 7:31 EDT 06/25/2022 7:34 EDT Narrative [facility] - 06/25/2022 7:51 EDT Moderate Intensity Coumadin INR = 2.0-3.0 Adjustments in anticoagulant therapy dose should be based on the INR and NOT on the Protime. Glynn Vann PA-C HEMATOLOGY & PF4 ORDERABL ES Final Result Performing Organization Address [facility] de Phone Number [facility] [address] [place] [address] documented in this encounter Visit Diagnoses Diagnosis [...] 06/25/2022 documented in this encounter Care Teams Motorboat Mechanic Inboard Relationship Specialty Start Date End Date Elizabeth Dsouza MD 4 [facility] [place] [place] [address] PCP - General 02/13/12 documented as of this encounter
--- OUTSIDE RECORDS SUMMARY | 2024-03-25 15:25 | XMS_ITS | Encounter Summary ---
Author Organization [facility] Address [address] [place] [address] Care Team Providers Care Nurse Quality Name Role Phone Elizabeth Dsouza MD Primary Care Provider [phone] Encounter Details Date Type Department Care Team (Late st Contact Info) Description 05/28/2022 [facility] Pathology & Laboratory Medicine - [facility] [address] [place] [address] Outr Resulting Lab, Provider Social History Tobacco [...] Info) Description 04/06/2024 9:30 EST Hospital Encounter [facility] Endoscopy [address] [place], [place] [address] Angélica Hernandez MD [address] [phone] 05/17/2024 8:00 EST Appointment [facility] CT Scan [address] [place] [address] 05/19/2024 13:30 EST Appointment [facility] Endoscopy [address] [place] [address] Angélica Hernandez MD [address] [phone] 05/28/2024 14:15 EDT Nurse Only [facility] Cancer [address] [address] 05/28/2024 14:30 EDT Office Visit [facility] Cancer [facility] [address] [place], [place] [address] Kaiser Miller MD 111 [facility], [facility] 2 [place] [address] documented as of this encounter [...] 55.8 - 66.1 % 05/30/2022 13:26 EDT [facility] Albumin g/dL 4.4 3.6 - 5.2 g/dL 05/30/2022 13:26 [facility] Alpha-1 % 4.9 2.9 - 4.9 % 05/30/2022 13:26 [facility] Alpha-1 g/dL 0.40 0.15 - 0.40 g/dL 05/30/2022 13:26 [facility] Alpha-2 % 11.2 7.1 - 11.8 % 05/30/2022 13:26 [facility] Alpha-2 g/dL 0.80 0.50 - 1.00 g/dL 05/30/2022 13:26 [facility] Beta % 10.6 8.4 - 13.1 % 05/30/2022 13:26 [facility] Beta g/dL 0.80 0.60 - 1.20 g/dL 05/30/2022 13:26 [facility] Gamma % 14.4 11.1 - 18.8 % 05/30/2022 13:26 [facility] Gamma g/dL 1.10 0.60 - 1.60 g/dL 05/30/2022 13:26 [facility] SPEP Comment No apparent monoclonal protein seen on serum electrophoresis 05/30/2022 13:26 [facility] Comment:See scanned/suppleme ntary report. Total Protein 7.5 6.3 - 8.2 g/dL 05/30/2022 13:26 [facility] Blood VENOUS BLOOD / Unknown 05/28/2022 11:20 EDT 05/29/2022 16:42 EDT us Provider Outr Resulting Lab CHEMISTRY & BLOOD GA S ORDERABLES Final Result [facility] [address] [place] [address] * PROTEIN, TOTAL (05/28/2022 11:20 EDT) Blood VENOUS BLOOD / Unknown 05/28/2022 11:20 EDT 05/29/2022 16:42 EDT us Provider Outr Resulting Lab CHEMISTRY & BLOOD GA S ORDERABLES Final Result [facility] [address] [place] [address] documented in this encounter Visit Diagnoses Not on filedocumented in this encounter Care Teams Nurse Quality Relationship Specialty Start Date End Date Elizabeth Dsouza MD [address] [place] [phone] PCP - General 02/13/12 documented as of this encounter
--- OUTSIDE RECORDS SUMMARY | 2024-03-25 15:25 | XMS_ITS | Encounter Summary ---
Author Organization [facility] Address [address] [place] [address] Care Team Providers Care Conflicts Analyst Name Role Phone Elizabeth Dsouza MD Primary Care Provider [phone] Encounter Details Date Type Department Care Team (Late st Contact Info) Description 04/30/2022 Lab Requisition [facility] Pathology & Laboratory Medicine - [facility] [address] [place], [place] [address] Elizabeth Dsouza MD [address] [place] [phone] Encounter for general adult medical examination [...] Info) Description 04/06/2024 9:30 EST Hospital Encounter [facility] Endoscopy [address] [place] [address] Angélica Hernandez MD [address] [place] [phone] 05/17/2024 8:00 EST Appointment [facility] CT Scan [address] [place] [address] 05/19/2024 13:30 EST Appointment [facility] Endoscopy [address] [place] [address] Angélica Hernandez MD [address] [place] [phone] 05/28/2024 14:15 EDT Nurse Only [facility] [address] [address] 05/28/2024 14:30 EDT Office Visit [facility] Cancer Treatment [address] [address] Kaiser Miller MD 111 [facility] 2 [place] [address] documented as of this encounter [...] 16, PCR Negative Negative 05/30/2022 14:14 EDT [facility] HPV18/45 RNA (HPV18/45) Negative Negative 05/30/2022 14:14 EDT [facility] Papanicolaou smear specimen (specimen) CERVIX UTERI STRUCTURE / Unknown 04/26/2022 8:45 EST 05/13/2022 10:22 EST Elizabeth Dsouza MD MICROBIOLOGY - GENERAL ORDERAB LES Final Result Performing Organization Address [facility] Co de Phone Number [facility] [address] [place] [address] * (ABNORMAL) HUMAN PAPILLOMAVIRUS (HPV) DETECTION-HIGH RISK TYPES (04/26/2022 8:45 EST) HPV other High Risk types, PCR Positive( A) Negative 05/13/2022 15:41 EST [facility] Comment:E6 OR E7 mRNA from o ne or more types of HPV types 16,18,31,33,35,39,45,51,52,56,58,59,66, and 68 is detected by new accounts banking representative mediated amplification. High and intermediate risk HPV types are associated with most squamous intraepithelial lesions and cervical cancers. Papanicolaou smear specimen (specimen) CERVIX UTERI STRUCTURE / Unknown 04/26/2022 8:45 EST 05/13/2022 10:22 EST us Elizabeth Dsouza MD MICROBIOLOGY - GENERAL ORDERAB LES Final Result Performing Organization Address City/[facility]/ZIP Co de Phone Number [facility] [address] [place] [address] * PAP TEST (04/26/2022 8:45 EST) Amendment Comment This report is amended to include High Risk HPV testing results. 05/30/2022 14:14 [facility] Specimens A. Cervix and/or Endocervix , ThinPrep Imaging System with Manual Evaluation 05/30/2022 14:14 [facility] Specimen Adequacy Satisfactory for Evaluation - transformation zone component present 05/30/2022 14:14 [facility] General Categorization Epithelial Cell Abnormality 05/30/2022 14:14 [facility] Descriptive Diagnosis Squamous Cell Abnormality - Atypical squamous cells, undetermined significance (ASC-US). 05/30/2022 14:14 [facility] Educational Comments [facility] recommends following the ASCCP's management guidelines which may be found at www.asccp.org 05/30/2022 14:14 [facility] Attestation By the signature below, the attending physician certifies that they have personally conducted a gross and/or microscopic examination of the described specimens and rendered or confirmed the above diagnosis. 05/30/2022 14:14 [facility] Amendment electronically signed by Heidi Hugo CT(ASCP) on 05/30/2022 at 1414 at 0808 Clinical History See below 05/31/19 14:14 [facility] HPV The result for the Human Papillomavirus (HPV) Detection-High Risk Types is Positive . E6 OR E7 mRNA from one or more types of HPV types 16,18,31,33,35,39 ,45,51,52,56,58,5 9,66, and 68 is detected by new accounts banking representative mediated amplification. High and intermediate risk HPV types are associated with most squamous intraepithelial lesions and cervical cancers. Testing was performed on specimen [id number] and was resulted on 05/13/2022 1541 EST by ÁLVARO, LAB INSTRUMENT RESULTS IN 05/30/2022 14:14 [facility] Genotyping 16 & 18/45 The results for the HPV Genotypes 16 and 18/45 are Negative for the HPV16 RNA and Negative for the HPV18/45 RNA (HPV18/45). Testing was performed on specimen [id number] and was resulted on 05/30/2022 1410 EDT by TREY KELLER 05/30/2022 14:14 EDT [facility] Performing Lab [facility] 05/30/2022 14:14 EDT [facility] Scanned Images 05/30/2022 14:14 EDT [facility] Papanicolaou smear specimen (specimen) CERVIX UTERI STRUCTURE / Unknown 04/26/2022 8:45 EST 04/30/2022 10:04 EST us Elizabeth Dsouza MD PATHOLOGY ORDERABLES Edited Re sult - Final [facility] [address] [place] [address] documented in this encounter Visit Diagnoses Diagnosis Encounter for general adult medical examination without abnormal findings Unspecified general medical examination Encounter for screening for malignant neoplasm of cervix Screening for malignant neoplasm of the cervix documented in this encounter Care Teams Conflicts Analyst Relationship Specialty Start Date End Date Elizabeth Dsouza MD [address] [place] [phone] PCP - General 02/13/12 documented as of this encounter
--- OUTSIDE RECORDS SUMMARY | 2024-03-25 15:25 | XMS_ITS | Encounter Summary ---
Author Organization [facility] Address [address] [place] [address] Care Team Providers Care Divinity Professor Name Role Phone Elizabeth Dsouza MD Primary Care Provider [phone] Reason for Visit * (Routine/Next Available) - Order Cancelled Specialty Diagnoses / Procedures Referred By Loli rose Referred To Contact Procedures CT OUTSIDE IMAGES CHEST Imaging, External Referral ID Status Reason Start Date Expiration Date V isits Requested Visits Authorized [id number] Order Cancelled 05/28/2022 1 1 Encounter Details Date Type Department Care Team (Latest Contact Info) Description 05/23/2022 - 05/23/2022 23:59 EST Hospital Encounter [facility] Secondary Reads [place] Discharge Disposition: Home [...] Encounter [facility] Endoscopy [address] [place] [address] Angélica Hernandez MD [address] [place] [phone] 05/17/2024 8:00 EST Appointment [facility] CT Scan [address] [place] [address] 05/19/2024 13:30 EST Appointment [facility] Endoscopy [address] [place] [address] Angélica Hernandez MD [address] [phone] 05/28/2024 14:15 EDT Nurse Only [facility] Cancer Treatment [address] [phone] 05/28/2024 14:30 EDT Office Visit [facility] Cancer [address] [phone] Kaiser Miller MD 111 [facility] 2 [place] [address] documented as of this encounter Visit Diagnoses Not on filedocumented in this encounter Care Teams Divinity Professor Relationship Specialty Start Date End Date Elizabeth Dsouza MD 4 [facility] [phone] PCP - General 02/13/12 documented as of this encounter
--- OUTSIDE RECORDS SUMMARY | 2024-03-25 15:25 | XMS_ITS | Encounter Summary ---
Author Organization [facility] Address [address] [place] [address] Care Team Providers Care Grape Grower Name Role Phone Elizabeth Dsouza MD Primary Care Provider [phone] Reason for Visit * (Routine/Next Available) - Receiving Office to Obtain Authorization Specialty Diagnoses / Procedures Referred By Loli rose Referred To Contact Procedures NM OUTSIDE IMAGES Imaging, External Referral ID Status Reason Start Date Expiration Date Visits Requested Visits Authorized [id number] Receiving Office to Obtain Authorization 2022 1 1 Encounter Details Date Type Department Care Team (Latest Contact Info) Description 06/06/2022 - 06/06/2022 23:59 EDT Hospital Encounter [facility] Secondary Reads [place] Discharge Disposition: Home or [...] Info) Description 04/06/2024 9:30 EST Hospital Encounter [facility] Endoscopy [address] [place] [address] Angélica Hernandez MD [address] [place] [phone] 05/17/2024 8:00 EST Appointment [facility] CT Scan [address] [place] [address] 05/19/2024 13:30 EST Appointment [facility] Endoscopy [address] [place] [address] Angélica Hernandez MD [address] [phone] 05/28/2024 14:15 EDT Nurse Only [facility] [address] [place], [place] [address] 05/28/2024 14:30 EDT Office Visit [facility] Cancer [address] [phone] Kaiser Miller MD 111 [facility], [facility] 2 [place] [address] documented as of this encounter [...] on filedocumented in this encounter Care Teams Grape Grower Relationship Specialty Start Date End Date Elizabeth Dsouza MD 4 [facility] [place] [phone] PCP - General 02/13/12 documented as of this encounter
--- OUTSIDE RECORDS SUMMARY | 2024-03-25 15:25 | XMS_ITS | Encounter Summary ---
Author Organization [facility] Address [address] [place] [address] Care Team Providers Care Automotive Tire Testing Supervisor Name Role Phone Elizabeth Dsouza MD Primary Care Provider [phone] Reason for Visit * Reason Onset Date Comments Appointment Related 06/03/2022 Encounter Details Date Type Department Care Team (Late st Contact Info) Description 06/03/2022 Telephone [facility] - [address] [phone] Rigo Jasmine PA-C [address] [place] [address] Level 1 [place] [phone] Appointment Related Social History Tobacco [...] Telephone Encounter - Yudy Mukherjee - 06/03/2022 6807 EDT Spoke with Melodie in regards to scheduling their outpatient CT guided right lung biopsy with interventional radiology at [facility]. Patient will be coming in on Sunday 06/25 @ 700am, checking in at 645am at registration. The following details were reviewed with patient to ensure procedure completed on scheduled date: -Patient understands that they will need a delivery truck driver heavy for this procedure. -Patient understands that they [...] can be addressed to Interventional Radiology Department [phone] Ext. 1 Patient verbalized understanding and agrees with Plan of Care. No cognitive barriers were identified during this conversation & they have our contact number to call with questions. Yudy Mukherjee documented in this encounter Plan of Treatment Upcoming Encounters Date Type Department Care Team (Late st Contact Info) Description 04/06/2024 9:30 EST Hospital Encounter [facility] Endoscopy [address] [place] [address] Angélica Hernandez MD [address] [phone] 05/17/2024 8:00 EST Appointment [facility] CT Scan [address] [place] [address] 05/19/2024 13:30 EST Appointment [facility] Endoscopy [address] [place] [address] Angélica Hernandez MD [address] [phone] 05/28/2024 14:15 EDT Nurse Only [facility] [place] [address] [place], [place] [address] 05/28/2024 14:30 EDT Office Visit [facility] Treatment [address] [phone] Kaiser Miller MD 111 [facility], [facility] 2 [place] [phone] documented as of this encounter Visit Diagnoses Not on filedocumented in this encounter Care Teams Automotive Tire Testing Supervisor Relationship Specialty Start Date End Date Elizabeth Dsouza MD [address] [place] [phone] PCP - General 02/13/12 documented as of this encounter
--- OUTSIDE RECORDS SUMMARY | 2024-03-25 15:25 | XMS_ITS | Encounter Summary ---
Author Organization [facility] Address [address] [place] [address] Care Team Providers Care Pharmacy Ancillary Name Role Phone Elizabeth Dsouza MD Primary Care Provider [phone] Reason for Visit * Reason Onset Date Comments Patient Education 06/18/2022 Encounter Details Date Type Department Care Team (Late st Contact Info) Description 06/18/2022 Telephone [facility] Inter[facility] - Main [address] [address] Idania Higgins RN Patient Education Social History [...] utilize some form of sedation. Having a taxi truck driver to take you home is required. A bus or taxi is not allowed. It is preferable to have your taxi truck driver accompany you to the appointment. [...] Description 04/06/2024 9:30 EST Hospital Encounter [facility] Endoscopy [address] [place] [address] Angélica Hernandez MD [address] [place] [phone] 05/17/2024 8:00 EST Appointment [facility] CT Scan [address] [place] [address] 05/19/2024 13:30 EST Appointment [facility] Endoscopy [address] [place] [address] Angélica Hernandez MD [address] [place] [phone] 05/28/2024 14:15 EDT Nurse Only [facility] Cancer Treatment [address] [address] 05/28/2024 14:[address] [facility] Cancer Treatment [address] [address] Kaiser Miller MD 111 [facility], [facility] 2 [place] [phone] documented as of this encounter Visit Diagnoses Not on filedocumented in this encounter Care Teams Pharmacy Ancillary Relationship Specialty Start Date End Date Elizabeth Dsouza MD 4 [place] [phone] PCP - General 02/13/12 documented as of this encounter
--- OUTSIDE RECORDS SUMMARY | 2024-03-25 15:25 | XMS_ITS | Encounter Summary ---
Author Organization [facility] Address [address] [place] [address] Care Team Providers Care Torch Burner Name Role Phone Elizabeth Dsouza MD Primary Care Provider [phone] Reason for Visit * Reason Onset Date Comments Patient Education 06/18/2022 Encounter Details Date Type Department Care Team (Late st Contact Info) Description 06/18/2022 Telephone [facility] - Main [address] [phone] Idania Higgins RN Patient Education Social History [...] Info) Description 04/06/2024 9:30 EST Hospital Encounter [facility] Endoscopy [address] [place] [address] Angélica Hernandez MD [address] [place] [phone] 05/17/2024 8:00 EST Appointment [facility] CT Scan [address] [place] [address] 05/19/2024 13:30 EST Appointment [facility] Endoscopy [address] [place] [address] Angélica Hernandez MD [address] [place] [phone] 05/28/2024 14:15 EDT Nurse Only [facility] Cancer Treatment [address] [phone] 05/28/2024 14:30 EDT Office Visit [facility] Cancer Treatment [address] [address] Kaiser Miller MD 111 [facility], [facility] 2 [place] [address] documented as of this encounter Visit Diagnoses Not on filedocumented in this encounter Care Teams Torch Burner Relationship Specialty Start Date End Date Elizabeth Dsouza MD 4 [place] [phone] PCP - General 02/13/12 documented as of this encounter
--- OUTSIDE RECORDS SUMMARY | 2024-03-25 15:25 | XMS_ITS | Encounter Summary ---
Author Organization [facility] Address [address] [place] [address] Care Team Providers Care Instructor Product Inspection Name Role Phone Elizabeth Dsouza MD Primary Care Provider [phone] Encounter Details Date Type Department Care Team (Late st Contact Info) Description 03/01/2022 Lab Requisition [facility] Pathology & Laboratory Medicine - [facility] [address] [place] [address] Raissa Rader MD [address] [place] [phone] Encounter for other general examination Social [...] Info) Description 04/06/2024 9:30 EST Hospital Encounter [facility] Endoscopy [address] [place] [address] Angélica Hernandez MD [address] [place] [phone] 05/17/2024 8:00 EST Appointment [facility] CT Scan [address] [place] [address] 05/19/2024 13:30 EST Appointment [facility] Endoscopy [address] [place] [address] Angélica Hernandez MD [address] [place] [phone] 05/28/2024 14:15 EDT Nurse Only [facility] Cancer Treatment [address] [phone] 05/28/2024 14:30 EDT Office Visit [facility] Cancer [address] [address] Kaiser Miller MD 111 [facility] 2 [place] [address] documented as of this encounter [...] management options, if applicable. 03/05/2022 13:21 EST [facility] Final Diagnosis A. SKIN AND CONJUNCTIVA OF EYELID, LEFT LOWER, EXCISION: - Follicular cyst, infundibular type, with evidence of rupture. 03/05/2022 13:21 [facility] Attestation By the signature below, the attending physician certifies that they have 1) personally conducted a gross and/or microscopic examination of the described specimen(s), and/or personally interpreted the results of laboratory testing of the described specimen(s), and 2) personally rendered or confirmed the above diagnosis. 03/05/2022 13:21 [facility] at 1321 Clinical History ? purfed cyst; clinically was very firm but filled with pus 03/05/2022 13:21 [facility] Gross Description A. Received [...] cm. The margins are inked blue. A outside dealer sales representative section is submitted as A1. BROOKE ARAGON 03/04/2022 6:20 03/05/2022 13:21 [facility] Performing Lab [facility] 03/05/2022 13:21 [facility] Scanned Images 03/05/2022 13:21 [facility] Tissue TISSUE SPECIMEN FROM SKIN / Unknown 03/01/2022 9:38 EST 03/01/2022 19:17 EST us Raissa Rader MD PATHOLOGY ORDERABLES Final Result [facility] [address] [place] [address] documented in this encounter Visit Diagnoses Diagnosis Encounter for other general examination documented in this encounter Care Teams Instructor Product Inspection Relationship Specialty Start Date End Date Elizabeth Dsouza MD [address] [place] [phone] PCP - General 02/13/12 documented as of this encounter
--- OUTSIDE RECORDS SUMMARY | 2024-03-25 15:25 | XMS_ITS | Encounter Summary ---
Author Organization [facility] Address [address] [place] [address] Care Team Providers Care Rail Bonder Name Role Phone Elizabeth Dsouza MD Primary Care Provider [phone] Encounter Details Date Type Department Care Team (Late st Contact Info) Description 01/03/2022 Prep for Procedure [facility] Endoscopy [address] [place] [address] Jame Mijares MD [address] [place] [address] [address] [place] [phone] Social History Tobacco Use Types [...] Info) Description 04/06/2024 9:30 EST Hospital Encounter [facility] Endoscopy [address] [place], [place] [phone] Angélica Hernandez MD [address] [place] [phone] 05/17/2024 8:00 EST Appointment [facility] CT Scan [address] [place] [address] 05/19/2024 13:30 EST Appointment [facility] Endoscopy [address] [place] [address] Angélica Hernandez MD [address] [place] [phone] 05/28/2024 14:15 EDT Nurse Only [facility] Cancer Treatment [address] [phone] 05/28/2024 14:30 EDT Office Visit [facility] Cancer Treatment [address] [phone] Kaiser Miller MD 111 [facility] 2 [place] [address] documented as of this encounter Visit Diagnoses Not on filedocumented in this encounter Care Teams Rail Bonder Relationship Specialty Start Date End Date Elizabeth Dsouza MD 4 [place] [phone] PCP - General 02/13/12 documented as of this encounter
--- OUTSIDE RECORDS SUMMARY | 2024-03-25 15:25 | XMS_ITS | Encounter Summary ---
Author Organization [facility] Address [address] [place] [address] Care Team Providers Care Clammer Name Role Phone Elizabeth Dsouza MD Primary Care Provider Reason for Visit * (Routine/Next Available) - Receiving Office to Obtain Authorization Specialty Diagnoses / Procedures Referred By Loli rose Referred To Contact Procedures XR OUTSIDE IMAGES RIGHT LOWER EXTREMITY Imaging, External Referral ID Status Reason Start Date Expiration Date Visits Requested Visits Authorized [id number] Receiving Office to Obtain Authorization 08/09/2022 1 1 Encounter Details Date Type Department Care Team (Latest Contact Info) Description 05/22/2022 Hospital Encounter [facility] Secondary Reads [place] Discharge Disposition: Home or [...] Info) Description 04/06/2024 9:30 EST Hospital Encounter [facility] Endoscopy [address] [place] [address] Angélica Hernandez MD [address] [place] [phone] 05/17/2024 8:00 EST Appointment [facility] CT Scan [address] [place] [address] 05/19/2024 13:30 EST Appointment [facility] Endoscopy [address] [place] [address] Angélica Hernandez MD [address] [phone] 05/28/2024 14:15 EDT Nurse Only [facility] Cancer [facility] 130 [place] [address] 05/28/2024 14:30 EDT Office Visit [facility] 130 [place], [place] [phone] Kaiser Miller MD 111 [facility] 2 [place] [phone] documented as of this encounter [...] on filedocumented in this encounter Care Teams Clammer Relationship Specialty Start Date End Date Elizabeth Dsouza MD [address] [place] [phone] PCP - General 02/13/12 documented as of this encounter
--- OUTSIDE RECORDS SUMMARY | 2024-03-25 15:25 | XMS_ITS | Encounter Summary ---
Author Organization [facility] Address [address] [place] [address] Care Team Providers Care Metal Roofing Mechanic Name Role Phone Elizabeth Dsouza MD Primary Care Provider [phone] Encounter Details Date Type Department Care Team (Late st Contact Info) Description 05/28/2022 Lab Requisition [facility] Pathology & Laboratory Medicine - [facility] [address] [place] [address] Outr Resulting Lab, Provider Social History Tobacco [...] EST Hospital Encounter [facility] [address] [place], [place] [address] Angélica Hernandez MD [address] [phone] 05/17/2024 8:00 EST Appointment [facility] Scan [address] [place] [address] 05/19/2024 13:30 EST Appointment [facility] [address] [place] [address] Angélica Hernandez MD [address] [phone] 05/28/2024 14:15 EDT Nurse Only [facility] [address] [address] 05/28/2024 14:30 EDT Office Visit [facility] [address] [phone] Kaiser Miller MD 111 [facility], [facility] 2 [place] [address] documented as of this encounter [...] 32.9 N/A % 05/31/19 23 15:[address] [facility] Albumin, Urine mg/dL 14 mg/dL 05/30/2022 15:42 [facility] Globulins, Urine % 67.1 N/A % 05/30/2022 15:42 [facility] Globulins, Urine mg/dL 28 mg/dL 05/30/2022 15:42 [facility] UPEP Comment See Comment 05/30/2022 15:42 [facility] Comment:Electrophoresis scre ening performed; Immunotyping to follow. ??See scanned/supplementary report. Immunotyping, Urine Current Interpretation : Negative for free monoclonal light chains. Interpreted by: Kannan Hamilton MD, PhD 05/30/2022 15:17. 05/30/2022 15:[address] [facility] Total Protein, Urine 42 See Note mg/dL 05/30/2022 15:42 [facility] Comment: NOTE: Reference range has not been established for total protein concentration in random urine specimens. Urine URINE / Unknown 05/28/2022 1 1:20 EDT 05/29/2022 16:34 EDT Provider Outr Resulting Lab URINALYSIS ORDERABLE S Final Result Performing Organization Address [facility] de Phone Number [facility] [address] [place] [address] * PROTEIN, TOTAL, RANDOM, URINE (05/28/2022 11:20 EDT) Urine URINE / Unknown 05/28/2022 1 1:20 EDT 05/29/2022 16:34 EDT us Provider Outr Resulting Lab URINALYSIS ORDERABLE S Final Result Performing Organization Address [facility] Co de Phone Number [facility] [address] [place] [address] documented in this encounter Visit Diagnoses Not on filedocumented in this encounter Care Teams Metal Roofing Mechanic Relationship Specialty Start Date End Date Elizabeth Dsouza MD [address] [place] [address] PCP - General 02/13/12 documented as of this encounter
--- OUTSIDE RECORDS SUMMARY | 2024-03-25 15:26 | XMS_ITS | Encounter Summary ---
Author Organization [facility] Address [address] [place] [address] Care Team Providers Care Security Installation Technician Name Role Phone Elizabeth Dsouza MD Primary Care Provider [phone] Encounter Details Date Type Department Care Team (Late st Contact Info) Description 09/07/2020 Lab Requisition [facility] Pathology & Laboratory Medicine - [address] [address] Outr Resulting Lab, Provider Social History Tobacco [...] Info) Description 04/06/2024 9:30 EST Hospital Encounter [facility] [address] [place], [place] [address] Angélica Hernandez MD [address] [phone] 05/17/2024 8:00 EST Appointment [facility] CT Scan [address] [place] [address] 05/19/2024 13:30 EST Appointment [facility] [address] [place] [address] Angélica Hernandez MD [address] [phone] 05/28/2024 14:15 EDT Nurse Only [facility] 130 [place], [place] [address] 05/28/2024 14:30 EDT Office Visit [facility] [address] [place], [place] [address] Kaiser Miller MD 111 [facility] 2 [place] [address] documented as of this encounter Procedures Procedure Name Priority Date/Time Associated Diagnosis Comments H. PYLORI ANTIGEN Routine 09/06/2020 8:45 EDT documented in this encounter Results * H. PYLORI ANTIGEN (09/06/2020 8:45 EDT) H. Pylori Negative Negative 09/12/2020 13:02 EDT [facility] Feces SPECIMEN FROM RECTUM / Unknown 09/06/2020 8:45 EDT 09/07/2020 16:04 EDT Narrative [facility] - 09/12/2020 13:02 EDT Results were obtained with the [employer] DIXON. us Provider Outr Resulting Lab MICROBIOLOGY - GENER AL ORDERABLES Final Result [facility] [address] [place] [address] documented in this encounter Visit Diagnoses Not on filedocumented in this encounter Care Teams Security Installation Technician Relationship Specialty Start Date End Date Elizabeth Dsouza MD [address] [place] [phone] PCP - General 02/13/12 documented as of this encounter
--- OUTSIDE RECORDS SUMMARY | 2024-03-25 15:26 | XMS_ITS | Encounter Summary ---
Author Organization [facility] Address [address] [place] [address] Care Team Providers Care Point Of Care Specialist Name Role Phone Elizabeth Dsouza MD Primary Care Provider [phone] Encounter Details Date Type Department Care Team (Late st Contact Info) Description 01/17/2021 Lab Requisition [facility] Pathology & Laboratory Medicine - [address] [address] Outr Resulting Lab, Provider Social History Tobacco [...] Description 04/06/2024 9:[address] [facility] [address] [place], [place] [address] Angélica Hernandez MD [address] [phone] 05/17/2024 8:[address] [facility] CT Scan [address] [place] [address] 05/19/2024 13:[address] [facility] [address] [place] [address] Angélica Hernandez MD [address] [phone] 05/28/2024 14:15 EDT Nurse Only [facility] 130 [place], [place] [address] 05/28/2024 14:30 EDT Office Visit [facility] [address] [place], [place] [address] Kaiser Miller MD 111 [facility], [facility] 2 [place] [address] documented as of this encounter [...] 55.8 - 66.1 % 01/18/2021 15:14 EDT [facility] Alpha-1 % 4.6 2.9 - 4.9 % 01/18/2021 15:14 EDT [facility] Alpha-2 % 11.6 7.1 - 11.8 % 01/18/2021 15:14 EDT [facility] Beta % 9.8 8.4 - 13.1 % 01/18/2021 15:14 EDT [facility] Gamma % 12.8 11.1 - 18.8 % 01/18/2021 15:14 EDT [facility] SPEP Comment No apparent monoclonal protein seen on serum electrophoresis 01/18/2021 15:14 EDT [facility] Comment:See scanned/suppleme ntary report. Total Protein 7.5 6.3 - 8.2 g/dL 01/18/2021 15:14 EDT [facility] Blood VENOUS BLOOD / Unknown 01/17/2021 10:21 EDT 01/17/2021 21:47 EDT Provider Outr Resulting Lab CHEMISTRY & BLOOD GA S ORDERABLES Final Result Performing Organization Address [facility] de Phone Number [facility] [address] [place] [address] * PROTEIN, TOTAL (01/17/2021 10:21 EDT) Blood VENOUS BLOOD / Unknown 01/17/2021 10:21 EDT 01/17/2021 21:47 EDT Provider Outr Resulting Lab CHEMISTRY & BLOOD GA S ORDERABLES Final Result Performing Organization Address [facility] Co de Phone Number [facility] [address] [place] [address] documented in this encounter Visit Diagnoses Not on filedocumented in this encounter Care Teams Point Of Care Specialist Relationship Specialty Start Date End Date Elizabeth Dsouza MD [address] [place] [address] PCP - General 02/13/12 documented as of this encounter
--- OUTSIDE RECORDS SUMMARY | 2024-03-25 15:26 | XMS_ITS | Encounter Summary ---
Author Organization [facility] Address [address] [place] [address] Care Team Providers Care Programmable Logic Controller Assembler Name Role Phone Elizabeth Dsouza MD Primary Care Provider [phone] Reason for Visit * Reason Onset Date Comments Appointment Related 08/27/2017 Encounter Details Date Type Department Care Team (Late st Contact Info) Description 08/27/2017 Telephone [facility] General Surgery - [address] [address] Elizabeth Pendleton MD [address] [place] [phone] Appointment Related Social History Tobacco Use [...] Hospital Encounter [facility] Endoscopy [address] [place], [place] [address] Angélica Hernandez MD [address] [place] [phone] 05/17/2024 8:00 EST Appointment [facility] CT Scan [address] [place], [place] [address] 05/19/2024 13:30 EST Appointment [facility] Endoscopy [address] [place] [address] Angélica Hernandez MD [address] [place] [phone] 05/28/2024 14:15 EDT Nurse Only [facility] [address] [place] [address] 05/28/2024 14:30 EDT Office Visit [facility] Cancer Treatment [address] [address] Kaiser Miller MD 111 [facility] 2 [place] [address] documented as of this encounter Visit Diagnoses Not on filedocumented in this encounter Care Teams Programmable Logic Controller Assembler Relationship Specialty Start Date End Date Elizabeth Dsouza MD [address] [place] [phone] PCP - General 02/13/12 documented as of this encounter
--- OUTSIDE RECORDS SUMMARY | 2024-03-25 15:26 | XMS_ITS | Encounter Summary ---
Author Organization [facility] Address [address] [place] [address] Care Team Providers Care Drilling Machine Operator Name Role Phone Elizabeth Dsouza MD Primary Care Provider [phone] Encounter Details Date Type Department Care Team (Late st Contact Info) Description 08/21/2017 Historical Results Only [facility] Lab - Main [place] [address] [place] [phone] Les Galvan MD [address] [place] [phone] Social History Tobacco Use Types Packs/Day [...] Info) Description 04/06/2024 9:30 EST Hospital Encounter [facility] Endoscopy [address] [place] [phone] Angélica Hernandez MD [address] [phone] 05/17/2024 8:00 EST Appointment [facility] CT Scan 130 [place] [address] 05/19/2024 13:30 EST Appointment [facility] Endoscopy 130 [place] [address] Angélica Hernandez MD [address] [phone] 05/28/2024 14:15 EDT Nurse Only [facility] 130 [place], [place] [address] 05/28/2024 14:30 EDT Office Visit [facility] 130 [place], [place] [address] Kaiser Miller MD 111 [facility] 2 [place] [address] documented as of this encounter Procedures Procedure Name Priority Date/Time Associated Diagnosis Comments [facility] Routine 08/21/2017 6:30 EDT documented in this encounter Results * [facility] (08/21/2017 6:30 EDT) [facility] 1+ 08/21/2017 7:45 EDT [facility] 08/21/2017 6:30 EDT 08/21/2017 7:00 EDT us Les An MD CHEMISTRY & BLOOD G ORDERABLES Final Result [facility] documented in this encounter Visit Diagnoses Not on filedocumented in this encounter Care Teams Drilling Machine Operator Relationship Specialty Start Date End Date Elizabeth Dsouza MD [address] [place] [address] PCP - General 02/13/12 documented as of this encounter
--- OUTSIDE RECORDS SUMMARY | 2024-03-25 15:26 | XMS_ITS | Encounter Summary ---
Author Organization [facility] Address [address] [place] [address] Care Team Providers Care Escrow Officer Name Role Phone Elizabeth Dsouza MD Primary Care Provider [phone] Encounter Details Date Type Department Care Team (Late st Contact Info) Description 05/04/2021 Lab Requisition [facility] Pathology & Laboratory Medicine - [address] [address] Outr Resulting Lab, Provider Social History Tobacco [...] Info) Description 04/06/2024 9:30 EST Hospital Encounter [facility] Endoscopy 130 [place], [place] [address] Angélica Hernandez MD [address] [phone] 05/17/2024 8:00 EST Appointment [facility] CT Scan [address] [place] [address] 05/19/2024 13:30 EST Appointment [facility]oscopy [address] [place] [address] Agnélica Hernandez MD [address] [phone] 05/28/2024 14:15 EDT Nurse Only [facility] 130 [place], [place] [address] 05/28/2024 14:30 EDT Office Visit [facility] 130 [place], [place] [address] Kaiser Miller MD 111 [facility] 2 [place] [address] documented as of this encounter Procedures Procedure Name Priority Date/Time Associated Diagnosis Comments ZZCOVID-19 TEST [facility] PCR Today 05/03/2021 16:30 EST COVID-19 TESTING Routine 05/03/2021 16:3 0 EST documented in this encounter Results * COVID-19 TEST [facility] PCR (05/03/2021 16:30 EST) Swab 05/03/2021 16:3 0 EST 05/04/2021 16:59 EST us Provider Outr Resulting Lab MICROBIOLOGY - GENER AL ORDERABLES Final Result [facility] [address] [place] [address] * COVID-19 TESTING (05/03/2021 16:30 EST) COVID-19 rt-PCR Result Negative Negative 05/05/2021 11:49 EST [facility] Comment: This test has not [...] was performed using the forrest SARS-CoV-2 assay ([employer] on the Forrest 6800 System Performing Lab Forrest 6800 [facility] 05/05/2021 11:49 EST [facility] Swab 05/03/2021 16:3 0 EST 05/04/2021 16:59 EST us Provider Outr Resulting Lab MICROBIOLOGY - GENER AL ORDERABLES Final Result Performing Organization Address City/State/[facility] Co de Phone Number [facility] [address] [place] [address] documented in this encounter Visit Diagnoses Not on filedocumented in this encounter Care Teams Escrow Officer Relationship Specialty Start Date End Date Elizabeth Dsouza MD [address] [place] [address] PCP - General 02/13/12 documented as of this encounter
--- OUTSIDE RECORDS SUMMARY | 2024-03-25 15:26 | XMS_ITS | Encounter Summary ---
Author Organization [facility] Address [address] [place] [address] Care Team Providers Care Showcase Trimmer Name Role Phone Elizabeth Dsouza MD Primary Care Provider [phone] Encounter Details Date Type Department Care Team (Late st Contact Info) Description 08/23/2017 Historical Results Only [facility] - Main [place] [address] [place] [phone] Ashu Arce MD [address] [place] [phone] Social History Tobacco Use Types [...] Info) Description 04/06/2024 9:30 EST Hospital Encounter [facility] [address] [place] [address] Angélica Hernandez MD [address] [phone] 05/17/2024 8:00 EST Appointment [facility] CT Scan [address] [place] [address] 05/19/2024 13:30 EST Appointment [facility] [address] [place] [address] Angélica Hernandez MD [address] [phone] 05/28/2024 14:15 EDT Nurse Only [facility] 130 [place], [place] [address] 05/28/2024 14:30 EDT Office Visit [facility] 130 [place], [place] [address] Kaiser Miller MD 111 [facility] 2 [place] [address] documented as of this encounter Procedures Procedure Name Priority Date/Time Associated Diagnosis Comments RBC MORPHOLOGY Routine 08/23/2017 6:15 EDT BASIC METABOLIC PANEL (BMP) Routine 08/23/2017 6:15 EDT documented in this encounter Results * (ABNORMAL) BASIC METABOLIC PANEL (BMP) (08/23/2017 6:15 EDT) BUN - [facility] 17 10 - 26 mg/dL 08/23/2017 7:34 [facility] CALCIUM - [facility] 8.2(L) 8.5 - 10.5 mg/dL 08/23/2017 7:34 [facility] Chloride 109 96 - 110 mmol/L 08/23/2017 7:34 [facility] CO2 Total 23 22 - 32 mEq/L 08/23/2017 7:34 [facility] CREATININE 0.78 0.52 - 1.04 mg/dL 08/23/2017 7:34 [facility] eGFR >60 08/23/2017 7:[address] [facility] Comment: Chronic renal impairment is defined as GFR <60 Multiply result by 1.210 for patients. eGFR calculated using the IDMS-traceable MDRD Study Equation. ??(effective 01/17/2014) Anion Gap 8 0 - 18 08/23/2017 7:[address] [facility] GLUCOSE - [facility] 112(H) 70 - 100 mg/dL 08/23/2017 7:34 [facility] Potassium 3.5 3.5 - 5.0 mEq/L 08/23/2017 7:34 [facility] Sodium 140 136 - 145 mEq/L 08/23/2017 7:[address] [facility] 08/23/2017 6:15 EDT 08/23/2017 6:55 EDT us Ashu Arce MD CHEMISTRY & BLOOD GAS ORDE RABLES Final Result [facility] * RBC MORPHOLOGY (08/23/2017 6:15 EDT) HYPOCHROMASIA - [facility] 2+ 08/23/2017 7:[address] [facility] MICROCYTES - [facility] 2+ 018 7:[address] [facility] POLYCHROMASIA - [facility] RARE 08/23/2017 7:[address] [facility] SCHISTOCYTES - [facility] RARE 08/23/2017 7:[address] [facility] 08/23/2017 6:15 EDT 08/23/2017 6:55 EDT us Ashu Arce MD HEMATOLOGY & PF4 ORDERABLE S Final Result [facility] documented in this encounter Visit Diagnoses Not on filedocumented in this encounter Care Teams Showcase Trimmer Relationship Specialty Start Date End Date Elizabeth Dsouza MD [address] [place] [phone] PCP - General 02/13/12 documented as of this encounter
--- OUTSIDE RECORDS SUMMARY | 2024-03-25 15:26 | XMS_ITS | Encounter Summary ---
Author Organization [facility] Address [address] [place] [address] Care Team Providers Care Straddle Bug Name Role Phone Elizabeth Dsouza MD Primary Care Provider [phone] Encounter Details Date Type Department Care Team (Late st Contact Info) Description 08/22/[address] [facility] Radiology Results [address] [place], [place] [id number] Belkis Valdez MD [address] [place] [address] Social History Tobacco Use Types [...] Description 04/06/2024 9:[address] [facility] Endoscopy [address] [place] [address] Angélica Hernandez MD [address] [phone] 05/17/2024 8:[address] [facility] CT Scan [address] [place] [address] 05/19/2024 13:[address] [facility] Endoscopy [address] [place] [address] Angélica Hernandez MD [address] [phone] 05/28/2024 14:15 EDT Nurse Only [facility] [address] [place], [place] [address] 05/28/2024 14:30 EDT Office Visit [facility] [address] [place], [place] [address] Kaiser Miller MD 111 [facility] 2 [place] [address] documented as of this encounter [...] EDT Narrative 08/22/2017 10:00 EDT ? [facility] ?[facility] ?[address] [place], [place] [address] ? [id number] ?C A R D I A C ?S T R E S S ?T E S T ?R E P O R T NAME: MELODIE CLIFFORD ? : 57 TELEPHONE: [phone] ? MR#: [id number] ? *[facility]* *[facility]* [address] [place] [address] Myocardial Perfusion Imaging - SPECT Regadenoson Date [...] abnormality. Indication: ?? NSTEMI. History: ??[facility]M[place] [facility] [place] WITH LEFT SIDED ABD. PAIN. DIAGNOSED [...] - rest/stress. ?The patient was ? [facility] ?[facility] ?[address] [place], [place] [address] ? [id number] ?C A R D I A C ?S T R E S S ?T E S T ?R E P O R T NAME: CLIFFORDMELODIE ? : 57 TELEPHONE: [phone] ? MR#: [id number] ? imaged in the supine position. Attenuation [...] peak heart rate and blood pressure was 78406bw Hg/min. Stress ECG: ??RESTING LEXISCAN STUDY NO [...] procedure. This study was interpreted by [facility]. ??Study status: ??Routine. ??Consent: ??The risks, benefits, and alternatives to the procedure were explained to the patient and informed consent was ? [facility] ?[facility] ?[facility] [address] [place], [place] [address] ? [id number] ?C A R D I A C ?S T R E S S ?T E S T ?R E P O R T NAME: MELODIE CLIFFORD ? : 57 TELEPHONE: [phone] ? MR#: [id number] ? obtained. ??Procedure: ??Initial setup. A baseline [...] Procedure Note Susy Walls - 01/03/[address] [facility] [address] [place] [id number] C A R D I A C S T R E S S T E S T R E P O R T NAME: MEERA CLIFFORDHarsh: 57 TELEPHONE: [phone] MR#: [id number] [id number] *[facility]* *[facility]* [address] [place] [address] Myocardial Perfusion Imaging - SPECT Regadenoson Date [...] motion abnormality. Indication: NSTEMI. History: ADMITTED [place] [facility] [place] WITH LEFT SIDED ABD. PAIN. DIAGNOSED [...] day - rest/stress. The patient was [facility] [address] [place], [place] [address] [id number] C Joel R D I A C S T R E S S T E S T R E P O R T NAME: MEERA CLIFFORDB: 57 TELEPHONE: [phone] MR#: [id number] imaged in the supine position. Attenuation correction [...] peak heart rate and blood pressure was 62266qs Hg/min. Stress ECG: RESTING LEXISCAN STUDY NO [...] procedure. This study was interpreted by [facility]. Study status: Routine. Consent: The risks, benefits, and alternatives to the procedure were explained to the patient and informed consent was [facility] [address] [place] [id number] C A R D I A C S T R E S S T E S T R E P O R T NAME: MEERA CLIFFORDB: 57 TELEPHONE: [phone] MR#: [id number] obtained. Procedure: Initial setup. A baseline ECG [...] ? CLINICAL INFORMATION: ? NSTEMI ? *[facility]* ? *[facility]* ? [address] ? [place] [address] ? Myocardial Perfusion Imaging - SPECT ? [...] Indication: ?? NSTEMI. ? History: ??ADMITTED [place] [facility] [place] WITH LEFT SIDED ABD. PAIN. DIAGNOSED ? WITH SEVERE SEPSIS FROM ACUTE DIVERTICULITIS WITH MICROPERFORATION. ? TROPS PEAKED AT 1.9, ECG WITH SLIGHT ST DEPRESSION IN LATERAL LEADS. ? PATIENT SMOKES 1 1/2 PPD OF CIGARETTES. ? 08/18/17- ECHO- LVEF 60-65%, NO WMA. ? 1996- STENTS X 2. ? Risk factors: ??Current [...] heart rate and ? blood pressure was 86869cn Hg/min. ? Stress ECG: ??RESTING LEXISCAN STUDY [...] [facility] by [facility] [place] [facility]. ? Study status: [...] 10:00 AM. ? Electronically signed by ? Suys Walls MD ? 08/22/2017 13:27 ?Reported By: SUSY WALLS M.D. ? CC: ? Transcribed Date/Time: 08/25/2017 (1610) ? Sludge Filtration Operator: JONATHAN ? Printed Date/Time: 09/04/2018 (8109) ? PAGE 3 ? Signed Report ? Procedure Note Susy Walls - 01/21/2019 EXAM: NUCLEAR MEDICINE/NUCLEAR STRESS MAMADOU EX. D/ (0916) CLINICAL INFORMATION: NSTEMI *[facility]* *[facility]* [address] [place] [address] Myocardial Perfusion Imaging - SPECT Regadenoson Date [...] motion abnormality. Indication: NSTEMI. History: ADMITTED [place] [facility] [place] WITH LEFT SIDED ABD. PAIN.DIAGNOSED WITH [...] the peak heart rateand blood pressure was 14627vv Hg/min. Stress ECG: RESTING LEXISCAN STUDY NO [...] procedure. This study was interpreted by [facility]. Study status: Routine. Consent: The risks, [...] SUSY WALLS M.D. CC: Transcribed Date/Time: 08/25/2017 (4660) Sludge Filtration Operator: JONATHAN Printed Date/Time: 09/04/2018 (9594) PAGE 3 Signed Report Belksi Valdez MD CARDIAC NM ORDERABLES Fin al Result * MAGNESIUM (08/22/2017 6:30 EDT) Magnesium 1.70 1.7 - 2.8 mg/dL 08/22/2017 7:32 EDT [facility] 08/22/2017 6:30 EDT 08/22/2017 6:52 EDT Les An MD CHEMISTRY & BLOOD G ORDERABLES Final Result [facility] * (ABNORMAL) BASIC METABOLIC PANEL (BMP) (08/22/2017 6:30 EDT) [facility] BUN [facility] 19 10 - 26 mg/dL 08/22/2017 7:32 [facility] CALCIUM - [facility] 8.1(L) 8.5 - 10.5 mg/dL 08/22/2017 7:32 [facility] Chloride 108 96 - 110 mmol/L 08/22/2017 7:32 [facility] CO2 Total 22 22 - 32 mEq/L 08/22/2017 7:32 [facility] CREATININE 0.86 0.52 - 1.04 mg/dL 08/22/2017 7:32 [facility] eGFR >60 08/22/2017 7:32 [facility] Comment: Chronic renal impairment is defined as GFR <60 Multiply result by 1.210 for patients. eGFR calculated using the IDMS-traceable MDRD Study Equation. ??(effective 01/17/2014) Anion Gap 8 0 - 18 08/22/2017 7:32 [facility] GLUCOSE - [facility] 96 70 - 100 mg/dL 08/22/2017 7:32 [facility] Potassium 3.3(L) 3.5 - 5.0 mEq/L 08/22/2017 7:32 [facility] Sodium 138 136 - 145 mEq/L 08/22/2017 7:32 [facility] 08/22/2017 6:30 EDT 08/22/2017 6:52 EDT us Les An MD CHEMISTRY & BLOOD G ORDERABLES Final Result [facility] * (ABNORMAL) COMPLETE BLOOD COUNT AND DIFFERENTIAL (08/22/2017 6:30 EDT) [facility] ABSOLUTE NEUTROPHIL [facility] 5.58 1.7 - 7.0 10e3/ul 08/22/2017 7:47 [facility] BASOPHILS - [facility] 0.06 0.0 - 0.3 10e3/uL 08/22/2017 7:47 [facility] BANDS - [facility] 2 0 - 3 % 08/22/2017 7:47 [facility] BASOPHIL - [facility] 1 0 - 2 % 8 7:47 [facility] EOS # - [facility] 0.06 0.05 - 0.5 10e3/uL 08/22/2017 7:47 [facility] EOSINOPHILS - [facility] 1 0 - 5 % 2017 7:47 [facility] HEMATOCRIT - [facility] 30.8(L) 34.0 - 47.0 % 08/22/2017 7:11 [facility] HEMOGLOBIN - [facility] 9.0(L) 11.2 - 15.7 g/dl 08/22/2017 7:11 [facility] HYPOCHROMASIA - [facility] 1+ 08/22/2017 7:47 [facility] LYMPH # - [facility] 0.47(L) 0.9 - 2.9 10e3/uL 08/22/2017 7:47 [facility] LYMPHOCYTES - [facility] 7(L) 20 - 40 % 2017 7:47 [facility] MEAN CORPUSCULAR HGB - [facility] 20.7(L) 26 - 34 pg 08/22/2017 7:11 [facility] MEAN CORPUSCULAR HGB CONC - [facility] 29.2(L) 31 - 36 g/dL 08/22/2017 7:11 [facility] MEAN CELL VOLUME - [facility] 71.0(L) 77 - 100 fl 08/22/2017 7:11 [facility] MONO # - [facility] 0.61 0.3 - 0.9 10e3/uL 08/22/2017 7:47 [facility] MONOCYTE - [facility] 9 0 - 12 % 8 7:47 [facility] PLATELET COUNT 178 150 - 400 10e3/ul 08/22/2017 7:11 EDT [facility] NEUTROPHILS - [facility] 80 40 - 80 % 2017 7:47 EDT [facility] RED BLOOD COUNT - [facility] 4.34 3.8 - 5.2 10e6/ul 08/22/2017 7:11 EDT [facility] RED CELL DISTRI WIDTH - [facility] 18.4(H) 11.8 - 15.6 % 08/22/2017 7:11 EDT [facility] WHITE BLOOD COUNT - [facility] 6.8 3.5 - 10.5 10e3/ul 08/22/2017 7:11 EDT [facility] 08/22/2017 6:30 EDT 08/22/2017 6:52 EDT us Les An MD PACKAGES & DNA PROB E ORDERABLES Final Result [facility] documented in this encounter Visit Diagnoses Not on filedocumented in this encounter Care Teams Straddle Bug Relationship Specialty Start Date End Date Elizabeth Dsouza MD [address] [place] [address] PCP - General 02/13/12 documented as of this encounter
--- OUTSIDE RECORDS SUMMARY | 2024-03-25 15:26 | XMS_ITS | Encounter Summary ---
Author Organization [facility] Address [address] [place] [address] Care Team Providers Care Inclusion Special Educator Name Role Phone Elizabeth Dsouza MD Primary Care Provider [phone] Encounter Details Date Type Department Care Team (Late st Contact Info) Description 03/23/2020 Lab Requisition [facility] Pathology & Laboratory Medicine - [address] [phone] Elizabeth Dsouza MD [address] [place] [address] Encounter for general adult medical examination [...] Hospital Encounter [facility] Endoscopy [address] [place], [place] [address] Angélica Hernandez MD [address] [phone] 05/17/2024 8:00 EST Appointment [facility] CT Scan [address] [place] [address] 05/19/2024 13:30 EST Appointment [facility] Endoscopy [address] [place] [address] Angélica Hernandez MD [address] [phone] 05/28/2024 14:15 EDT Nurse Only [facility] [address] [phone] 05/28/2024 14:30 EDT Office Visit [facility] [address] [address]37[address] Kaiser Miller MD 111 [facility] 2 [place] [address] documented as of this encounter [...] PCR Positive( A) Negative 04/11/2020 7:57 EST [facility] Comment:E6 OR E7 mRNA from o ne or more types of HPV types 16,18,31,33,35,39,45,51,52,56,58,59,66, and 68 is detected by maintenance team leader mediated amplification. High and intermediate risk HPV types are associated with most squamous intraepithelial lesions and cervical cancers. Papanicolaou smear specimen (specimen) CERVIX UTERI STRUCTURE / Unknown 03/21/2020 10:00 EST 04/03/2020 10:59 EST us Elizabeth Dsouza MD MICROBIOLOGY - GENERAL ORDERAB LES Final Result [facility] [address] [place] [address] * PAP TEST (03/21/2020 10:00 EST) Specimens A. Cervix and/or Endocervix , ThinPrep Imaging System with Manual Evaluation 04/11/2020 7:57 [facility] Specimen Adequacy Satisfactory for Evaluation - transformation zone component present 04/11/2020 7:57 [facility] General Categorization Epithelial Cell Abnormality 04/11/2020 7:57 [facility] Descriptive Diagnosis Squamous Cell Abnormality - Low grade squamous intraepithelial lesion (LSIL). Shift in marielos present suggestive of bacterial vaginosis. 04/11/2020 7:57 [facility] Educational Comments [facility] recommends following ASCCP's 2012 Updated Consensus Guidelines for the Management of Abnormal Cervical Cancer Screening Tests and Cancer Precursors (JLGTD, 2013; 17(5):S1-S27). Consensus guidelines are available online at www.asccp.org. 04/11/2020 7:57 [facility] Attestation By the signature below, the attending physician certifies that they have personally conducted a gross and/or microscopic examination of the described specimens and rendered or confirmed the above diagnosis. 04/11/2020 7:57 [facility] at 0757 Clinical History See below 04/11/19 7:57 [facility] HPV The result for the Human Papillomavirus (HPV) Detection-High Risk Types is Positive . E6 OR E7 mRNA from one or more types of HPV types 16,18,31,33,35,39 ,45,51,52,56,58,5 9,66, and 68 is detected by maintenance team leader mediated amplification. High and intermediate risk HPV types are associated with most squamous intraepithelial lesions and cervical cancers. Testing was performed on specimen [id number] and was resulted on 04/11/2020 0724 EST by ÁLVARO, LAB INSTRUMENT RESULTS IN 04/11/2020 7:57 EST [facility] Performing Lab [facility] 04/11/2020 7:57 EST [facility] Scanned Images 04/11/2020 7:57 EST [facility] Papanicolaou smear specimen (specimen) CERVIX UTERI STRUCTURE / Unknown 03/21/2020 10:00 EST 03/23/2020 13:13 EST us Elizabeth Dsouza MD PATHOLOGY ORDERABLES Final Res ult [facility] [address] [place] [address] documented in this encounter Visit Diagnoses Diagnosis Encounter for general adult medical examination without abnormal findings Unspecified general medical examination Encounter for screening for malignant neoplasm of cervix Screening for malignant neoplasm of the cervix documented in this encounter Care Teams Inclusion Special Educator Relationship Specialty Start Date End Date Elizabeth Dsouza MD [address] [place] [address] PCP - General 02/13/12 documented as of this encounter
--- OUTSIDE RECORDS SUMMARY | 2024-03-25 15:26 | XMS_ITS | Encounter Summary ---
Author Organization [facility] Address [address] [place] [address] Care Team Providers Care Correspondence Section Supervisor Name Role Phone Elizabeth Dsouza MD Primary Care Provider [phone] Reason for Visit * Reason Comments Peripheral Neuropathy Encounter Details Date Type Department Care Team (Latest Contact Info) Description 01/17/2021 9:00 EDT Procedure visit [facility] [address] [place] [address] Dwight Samano MD 130 [facility] [address] [place] [address] Other polyneuropathy (Primary Dx) Social [...] Dwight Samano MD - 01/17/2021 0900 EDT [facility] Clinical Neurophysiology Nerve Conduction and Electromyography Report PATIENT NAME: Melodie Hodge PATIENT : 1955 PCP: Elizabeth Dsouza DATE OF SERVICE: 01/17/2021 History: Melodie Hodge is a 65 y.o. female with PVD who presents to EMG on referral by Dr Haddad of [facility] for evaluation of possible peripheral neuropathy. [...] Encounter [facility] Endoscopy [address] [place] [address] Angélica Hernandez MD [address] [place] [phone] 05/17/2024 8:00 EST Appointment [facility] CT Scan [address] [place] [address] 05/19/2024 13:30 EST Appointment [facility] Endoscopy [address] [place] [address] Angélica Hernandez MD [address] [place] [phone] 05/28/2024 14:15 EDT Nurse Only [facility] Cancer Treatment [address] [phone] 05/28/2024 14:30 EDT Office Visit [facility] Cancer Treatment [address] [address] Kaiser Miller MD 111 [facility] 2 [place] [address] documented as of this encounter [...] * VITAMIN B1, THIAMINE (01/17/2021 10:21 EDT) [facility] VITAMIN B1 (THIAMINE) - [facility] 112 70 - 180 nmol/L 01/25/2021 9:52 EST [facility] Comment: ADDITIONAL INFORMATION This test was developed and its performance characteristics determined by [facility] in a manner consistent with CLIA requirements. This test has not been cleared or approved by the U.S. Food and Drug Administration. Test Performed by: [facility] [place] [address] Acquisition Marketing Coordinator: Fabio Martin M.D. Ph.D.; CLIA# [id number] 01/17/2021 10:2 1 EDT 01/17/2021 10:21 EDT Narrative [facility] - 01/25/2021 9:52 EST Does PT Have a Latex Allergy? UNKNOWN ORDERED TESTS: [place] ID: PLP, PER ROBERTH GREEN TOP TUBE PROTECT FROM LIGHT SEND ALEK TO LAB. NO VITS ??FOR 24 HRS AND FASTING 12-14HR us Dwight Samano MD CHEMISTRY & BLOOD GAS ORD ERABLES Final Result [facility] [address] [place] [address] * SPEP, INCLUDES QUANTITATION OF MONOCLONAL SPIKE (01/17/2021 10:21 EDT) Alpha-1 % 4.6 2.9 - 4.9 % 01/25/2021 9:52 [facility] Alpha-2 % 11.6 7.1 - 11.8 % 01/25/2021 9:52 [facility] Albumin % 61.2 55.8 - 66.1 % 01/25/2021 9:52 [facility] Beta % 9.8 8.4 - 13.1 % 01/25/2021 9:52 [facility] COMMENTS - [facility] SEE BELOW () 9:52 [facility] Comment: RESULT: No apparent monoclonal protein seen on serum electrophoresis See scanned/supplementary report. Test performed or referred by The [address] [address] Gamma % 12.8 11.1 - 18.8 % 01/25/2021 9:52 [facility] Protein, 24H Urine 7.5 6.3 - 8.2 g/dL 01/25/2021 9:52 [facility] 01/17/2021 10:2 1 EDT 01/17/2021 10:21 EDT Narrative [facility] - 01/25/2021 9:52 EST Does PT Have a Latex Allergy? UNKNOWN ORDERED TESTS: [place] ID: PLP, PER [place]ER[place] GREEN TOP TUBE PROTECT FROM LIGHT SEND ALEK TO LAB. NO VITS ??FOR 24 HRS AND FASTING 12-14HR us Dwight Samano MD CHEMISTRY & BLOOD GAS ORD ERABLES Final Result [facility] [address] [place] [address] * VITAMIN B12 (01/17/2021 10:21 EDT) Pathologist [facility] VITAMIN B12 - [facility] 615 239 - 931 pg/mL 01/17/2021 11:58 EDT [facility] Comment: The results of this assay can be falsely elevated due to the consumption of Biotin. 01/17/2021 10:2 1 EDT 01/17/2021 10:21 EDT Narrative [facility] - 01/17/2021 11:58 EDT Does PT Have a Latex Allergy? UNKNOWN Dwight Samano MD CHEMISTRY & BLOOD GAS ORD ERABLES Final Result [facility] [address] [place] [address] * (ABNORMAL) MISCELLANEOUS TEST, [place] (01/17/2021 10:15 EDT) [facility] MISCELLANEOUS TEST - [facility] SEE BELOW(A) () 01/22/2021 15:46 EST [facility] Comment: Test ? Result ??Flag ??Unit ?? RefValue Pyridoxal 5-Phosphate (PLP) ?4 ?L ?mcg/L ??5-50 ??, P ADDITIONAL INFORMATION This test was developed and its performance characteristics determined by [facility] in a manner consistent with CLIA requirements. This test has not been cleared or approved by the U.S. Food and Drug Administration. Test Performed by: [facility] [place] [address] [place] [address] Acquisition Marketing Coordinator: Fabio Martin M.D. Ph.D.; CLIA# [id number] 01/17/2021 10:1 5 EDT 01/17/2021 10:47 EDT Dwight Samano MD CHEMISTRY & BLOOD GAS ORD ERABLES Final Result [facility] [address] [place] [address] documented in this encounter Visit Diagnoses Diagnosis Other polyneuropathy- Primary documented in this encounter Care Teams Correspondence Section Supervisor Relationship Specialty Start Date End Date Elizabeth Dsouza MD [address] [place] [address] PCP - General 02/13/12 documented as of this encounter
--- OUTSIDE RECORDS SUMMARY | 2024-03-25 15:26 | XMS_ITS | Encounter Summary ---
Author Organization [facility] Address [address] [place] [address] Care Team Providers Care Technology Trainer Name Role Phone Elizabeth Dsouza MD Primary Care Provider [phone] Reason for Referral * Vascular Lab (Routine) - Authorization Not Required Specialty Diagnoses / Procedures Referred By Loli rose Referred To Contact Diagnoses Arterial bruit Procedures US LOWER ARTERIAL DUPLEX US UPPER ARTERIAL DUPLEX Elizabeth Dsouza MD [address] [place] [address] Phone: tel: fax: Referral ID Status Reason Start Date Expiration Date Visits Requested Visits Authorized [id number] Authorization Not Required 0 1 1 Encounter Details Date Type Department Care Team (Latest Contact Info) Description 12/27/2019 Transcribe Orders Vascular Surgery and Endovascular Therapy - [address] [address] Elizabeth Dsouza MD [address] [place] [address] Arterial bruit (Primary Dx) Social [...] Description 04/06/2024 9:30 EST Hospital Encounter [facility] Endoscopy [address] [place] [address] Angélica Hernandez MD [address] [place] [phone] 05/17/2024 8:00 EST Appointment [facility] CT Scan [address] [place], [place] [address] 05/19/2024 13:30 EST Appointment [facility] Endoscopy [address] [place] [address] Angélica Hernandez MD [address] [place] [phone] 05/28/2024 14:15 EDT Nurse Only [facility] Cancer Treatment [address] [phone] 05/28/2024 14:30 EDT Office Visit [facility] Cancer Treatment [address] [address] Kaiser Miller MD [address] [place] [address] 2 [place] [address] Scheduled Orders Name Type Priority Associated Diagnoses Orde r Schedule US LOWER ARTERIAL DUPLEX Vascular Ultrasound Routine Arterial bruit 03/07/2020 documented as of this encounter Visit Diagnoses Diagnosis Arterial bruit- Primary Other symptoms involving cardiovascular system documented in this encounter Care Teams Technology Trainer Relationship Specialty Start Date End Date Elizabeth Dsouza MD [address] [place] [address] PCP - General 02/13/12 documented as of this encounter
--- OUTSIDE RECORDS SUMMARY | 2024-03-25 15:26 | XMS_ITS | Encounter Summary ---
Author Organization [facility] Address [address] [place] [address] Care Team Providers Care Oriental Medicine Practitioner Name Role Phone Elizabeth Dsouza MD Primary Care Provider [phone] Encounter Details Date Type Department Care Team (Late st Contact Info) Description 09/05/2020 Lab Requisition [facility] Pathology & Laboratory Medicine - [address] [address] Outr Resulting Lab, Provider Social History Tobacco [...] Info) Description 04/06/2024 9:30 EST Hospital Encounter Health system Endoscopy 130 [place], [place] [address] Angélica Hernandez MD [address] [phone] 05/17/2024 8:00 EST Appointment Health system CT Scan 130 [place] [address] 05/19/2024 13:30 EST Appointment Health system Endoscopy 130 [place] [address] Angélica Hernandez MD [address] [phone] 05/28/2024 14:15 EDT Nurse Only [facility] 130 [place], [place] [address] 05/28/2024 14:30 EDT Office Visit [facility] 130 [place] [address] Kaiser Miller MD 111 [facility] 2 [place] [address] documented as of this encounter Procedures Procedure Name Priority Date/Time Associated Diagnosis Comments CELIAC DISEASE PANEL Routine 09/05/2020 10:00 EDT documented in this encounter Results * CELIAC DISEASE PANEL (09/05/2020 10:00 EDT) Tissue Transglutaminase Antibody IGA <1.2 <4.0 U/mL 09/06/2020 12:05 EDT [facility] Comment: A negative result may be due to IgA deficiency and does not rule out celiac disease. ? Negative: ??<4.0 U/mL ? Weak Positive: ??4.0 - 10.0 U/mL ? Positive: ??>10.0 U/mL Results were obtained with the [employer] QUANTA Lite R h-tTG IgA DIXON assay on the [employer] DSX. IgA 179 85 - 499 mg/dL 09/06/2020 12:05 EDT [facility] Celiac Disease Interpretation Negative Serology. Celiac disease unlikely. Approximately 10% of patients with celiac disease are seronegative. Patients who are already adhering to a gluten-free diet may also be seronegative. If celiac disease is highly clinically suspected, referral to gastroenterology for additional evaluation is recommended. 09/06/2020 12:05 EDT [facility] Blood VENOUS BLOOD / Unknown 09/05/2020 10:00 EDT 09/05/2020 21:34 EDT us Provider Outr Resulting Lab IMMUNOLOGY AND SEROL OGY ORDERABLES Final Result [facility] [address] [place] [address] documented in this encounter Visit Diagnoses Not on filedocumented in this encounter Care Teams Oriental Medicine Practitioner Relationship Specialty Start Date End Date Elizabeth Dsouza MD 4 [place] [phone] PCP - General 02/13/12 documented as of this encounter
--- OUTSIDE RECORDS SUMMARY | 2024-03-25 15:26 | XMS_ITS | Encounter Summary ---
Author Organization [facility] Address [address] [place] [address] Care Team Providers Care Medical Registrar Name Role Phone Elizabeth Dsouza MD Primary Care Provider [phone] Reason for Visit * Reason Onset Date Comments Results 01/23/2021 Encounter Details Date Type Department Care Team (Late st Contact Info) Description 01/23/2021 Telephone [facility] [address] [place] [phone] Dwight Samano MD 130 [facility] [address] [place] [address] Results Social History Tobacco Use [...] Encounter - Dwight Samano MD - 01/23/2021 0863 EST Please let her know her B6 [...] Info) Description 04/06/2024 9:30 EST Hospital Encounter [facility] Endoscopy 130 [place] [address] Angélica Hernandez MD [address] [place] [phone] 05/17/2024 8:00 EST Appointment [facility] CT Scan 130 [place], [place] [address] 05/19/2024 13:30 EST Appointment [facility] Endoscopy 130 [place] [address] Angélica Hernandez MD [address] [phone] 05/28/2024 14:15 EDT Nurse Only [facility] Cancer Treatment [place] 130 [place] [address] 05/28/2024 14:30 EDT Office Visit [facility] 130 [place] [address] Kaiser Miller MD [address] [place] [address] 2 [place] [address] documented as of this encounter Visit Diagnoses Not on filedocumented in this encounter Care Teams Medical Registrar Relationship Specialty Start Date End Date Elizabeth Dsouza MD 4 [place] [phone] PCP - General 02/13/12 documented as of this encounter
--- OUTSIDE RECORDS SUMMARY | 2024-03-25 15:26 | XMS_ITS | Encounter Summary ---
Author Organization [facility] Address [address] [place] [address] Care Team Providers Care General Internist Name Role Phone Elizabeth Dsouza MD Primary Care Provider [phone] Reason for Visit * Reason Onset Date Comments Appointment Related 03/24/2020 Encounter Details Date Type Department Care Team (Late st Contact Info) Description 03/24/2020 Telephone Vascular Surgery and Endovascular Therapy - [address] [phone] Acosta Christine MD 111 [facility], Level 5 [place] [address] Appointment Related Social History Tobacco [...] Telephone Encounter - Janis Velazquez - 03/24/2020 5406 EST Vascular ultrasound and consult with Dr. [...] Encounter [facility] Endoscopy 130 [place] [address] Angélica Hernandez MD [address] [phone] 05/17/2024 8:00 EST Appointment [facility] CT Scan 130 [place] [address] 05/19/2024 13:30 EST Appointment [facility] Endoscopy 130 [place] [address] Angélica Hernandez MD [address] [phone] 05/28/2024 14:15 EDT Nurse Only [facility] [place] 130 [place], [place] [address] 05/28/2024 14:30 EDT Office Visit [facility] [place] 130 [place], [place] [address] Kaiser Miller MD 111 [facility] 2 [place] [address] documented as of this encounter Visit Diagnoses Not on filedocumented in this encounter Care Teams General Internist Relationship Specialty Start Date End Date Elizabeth Dsouza MD [address] [place] [phone] PCP - General 02/13/12 documented as of this encounter
--- OUTSIDE RECORDS SUMMARY | 2024-03-25 15:26 | XMS_ITS | Encounter Summary ---
Author Organization [facility] Address [address] [place] [address] Care Team Providers Care Sql Analyst Name Role Phone Elizabeth Dsouza MD Primary Care Provider [phone] Encounter Details Date Type Department Care Team (Late st Contact Info) Description 08/21/2017 Historical Results Only [facility] - Main [place] [address] [place] [phone] Les Galvan MD [address] [place] [phone] Social History Tobacco Use Types Packs/Day [...] Info) Description 04/06/2024 9:30 EST Hospital Encounter [facility] Endoscopy [address] [place] [phone] Angélica Hernandez MD [address] [phone] 05/17/2024 8:00 EST Appointment [facility] CT Scan 130 [place] [address] 05/19/2024 13:30 EST Appointment [facility] Endoscopy 130 [place] [address] Angélica Hernandez MD [address] [phone] 05/28/2024 14:15 EDT Nurse Only [facility] Cancer [facility] 130 [place] [address] 05/28/2024 14:30 EDT Office Visit [facility] Cancer [facility] 130 [place] [address] Kaiser Miller MD 111 [facility] 2 [place] [address] documented as of this encounter Procedures Procedure Name Priority Date/Time Associated Diagnosis Comments URINE CULTURE IF POSITIVE Routine 08/21/2017 8:53 EDT MICROCYTES - [facility] Routine 08/21/2017 6:3 0 EDT C REACTIVE PROTEIN Routine 08/21/2017 6: 30 EDT MAGNESIUM Routine 08/21/2017 6:30 EDT BASIC METABOLIC PANEL (BMP) Routine 08/21/2017 6:30 EDT documented in this encounter Results * URINE CULTURE IF POSITIVE (08/21/2017 8:53 EDT) URINE CULTURE IF UA POSITIVE - [facility] 08/22/2017 11:[address] [facility] URINE CULTURE IF UA POSITIVE - [facility] No growth. 08/22/2017 11:[address] [facility] 08/21/2017 8:53 EDT 08/21/2017 8:53 EDT Comment:VOID Choco Freeman MD MICROBIOLOGY - GENERA L ORDERABLES Final Result [facility] * MAGNESIUM (08/21/2017 6:30 EDT) Pathologist [facility] Magnesium 1.90 1.7 - 2.8 mg/dL 08/21/2017 8:[address] [facility] 08/21/2017 6:30 EDT 08/21/2017 7:00 EDT Les An MD CHEMISTRY & BLOOD G ORDERABLES Final Result Performing Organization Address [facility] Co de Phone Number [facility] * (ABNORMAL) C REACTIVE PROTEIN (08/21/2017 6:30 EDT) [facility] C-Reactive Protein 347.1(H) <10.0 mg/L 08/21/2017 8:[address] [facility] 08/21/2017 6:30 EDT 08/21/2017 7:00 EDT Les An MD CHEMISTRY & BLOOD G ORDERABLES Final Result Performing Organization Address City/[facility]/ZIP Co de Phone Number [facility] * (ABNORMAL) BASIC METABOLIC PANEL (BMP) (08/21/2017 6:30 EDT) BUN - [facility] 24 10 - 26 mg/dL 08/21/2017 8:[address] [facility] CALCIUM - [facility] 8.4(L) 8.5 - 10.5 mg/dL 08/21/2017 8:[address] [facility] Chloride 108 96 - 110 mmol/L 08/21/2017 8:[address] [facility] CO2 Total 23 22 - 32 mEq/L 08/21/2017 8:[address] [facility] CREATININE 0.97 0.52 - 1.04 mg/dL 08/21/2017 8:[address] [facility] eGFR 58 08/21/2017 8:06 [facility] Comment: Stage 3: Moderate renal impairment is defined as GFR 30-59 Multiply result by 1.210 for patients. eGFR calculated using the IDMS-traceable MDRD Study Equation. ??(effective 01/17/2014) Anion Gap 9 0 - 18 08/21/2017 8:[address] [facility] GLUCOSE - [facility] 105(H) 70 - 100 mg/dL 08/21/2017 8[facility] Potassium 3.8 3.5 - 5.0 mEq/L 08/21/2017 8:08 [facility] Sodium 140 136 - 145 mEq/L 08/21/2017 8:08 [facility] 08/21/2017 6:30 EDT 08/21/2017 7:00 EDT Les An MD CHEMISTRY & BLOOD G ORDERABLES Final Result [facility] * [facility] (08/21/2017 6:30 EDT) [facility] 1+ 08/21/2017 7:[address] [facility] 08/21/2017 6:30 EDT 08/21/2017 7:00 EDT Les An MD CHEMISTRY & BLOOD G ORDERABLES Final Result [facility] documented in this encounter Visit Diagnoses Not on filedocumented in this encounter Care Teams Sql Analyst Relationship Specialty Start Date End Date Elizabeth Dsouza MD [address] [place] [phone] PCP - General 02/13/12 documented as of this encounter
--- OUTSIDE RECORDS SUMMARY | 2024-03-25 15:26 | XMS_ITS | Encounter Summary ---
Author Organization [facility] Address [address] [place] [address] Care Team Providers Care Staff Radiation Therapist Name Role Phone Elizabeth Dsouza MD Primary Care Provider [phone] Encounter Details Date Type Department Care Team (Late st Contact Info) Description 08/23/2017 Historical Results Only [facility] Lab - Main [place] [address] [place] [phone] Ashu Arce MD 130 [place] [phone] Social History Tobacco Use Types [...] Info) Description 04/06/2024 9:30 EST Hospital Encounter [facility] Endoscopy 130 [place] [address] Angélica Hernnadez MD [address] [phone] 05/17/2024 8:00 EST Appointment [facility] CT Scan 130 [place] [address] 05/19/2024 13:30 EST Appointment [facility] Endoscopy 130 [place] [address] Angélica Hernandez MD [address] [phone] 05/28/2024 14:15 EDT Nurse Only [facility] Cancer [facility] 130 [place], [place] [address] 05/28/2024 14:30 EDT Office Visit [facility] Cancer [facility] 130 [place], [place] [address] Kaiser Miller MD 111 [facility] 2 [place] [address] documented as of this encounter Procedures Procedure Name Priority Date/Time Associated Diagnosis Comments COMPLETE BLOOD COUNT WITH DIFFERENTIAL (AUTO) Routine 08/23/2017 6:15 EDT documented in this encounter Results * (ABNORMAL) COMPLETE BLOOD COUNT WITH DIFFERENTIAL (AUTO) (08/23/2017 6:15 EDT) ABSOLUTE NEUTROPHIL COUN - [facility] 5.91 1.7 - 7.0 10e3/ul 08/23/2017 7:32 EDT [facility] BASO # - [facility] 0.03 0.0 - 0.3 10e3/uL 08/23/2017 7:32 EDT [facility] BASO % - [facility] 0 0 - 2 % 08/23/2017 7:32 [facility] EOS # - [facility] 0.13 0.05 - 0.5 10e3/uL 08/23/2017 7:32 [facility] EOS % - [facility] 2 0 - 5 % 08/23/2017 7:32 EDT [facility] GRAN % - [facility] 75 40 - 80 % 08/23/2017 7:32 [facility] HEMATOCRIT - [facility] 32.0(L) 34.0 - 47.0 % 08/23/2017 7:32 [facility] HEMOGLOBIN - [facility] 9.2(L) 11.2 - 15.7 g/dl 08/23/2017 7:32 [facility] IG# - [facility] 0.05 0 - 0.07 10e3/uL 08/23/2017 7:32 [facility] IG% - [facility] 0.6 0 - 0.9 % 08/23/2017 7:32 [facility] LYMPH # - [facility] 0.98 0.9 - 2.9 10e3/uL 08/23/2017 7:32 [facility] LYMPH% - [facility] 13(L) 20 - 40 % 08/23/2017 7:32 [facility] MEAN CORPUSCULAR HGB - CV 20.5(L) 26 - 34 pg 08/23/2017 7:32 [facility] MEAN CORPUSCULAR HGB CONC - CV 28.8(L) 31 - 36 g/dL 08/23/2017 7:32 [facility] MEAN CELL VOLUME - [facility] 71.3(L) 77 - 100 fl 08/23/2017 7:32 [facility] MONO # - [facility] 0.77 0.3 - 0.9 10e3/uL 08/23/2017 7:32 [facility] MONO% - [facility] 10 0 - 12 % 08/23/2017 7:32 [facility] PLATELET COUNT 189 150 - 400 10e3/ul 08/23/2017 7:32 [facility] RED BLOOD COUNT - [facility] 4.49 3.8 - 5.2 10e6/ul 08/23/2017 7:32 [facility] RED CELL DISTRI WIDTH - [facility] 18.5(H) 11.8 - 15.6 % 08/23/2017 7:32 [facility] WHITE BLOOD COUNT - [facility] 7.9 3.5 - 10.5 10e3/ul 08/23/2017 7:32 EDT [facility] 08/23/2017 6:15 EDT 08/23/2017 6:55 EDT us Ashu Arce MD HEMATOLOGY & PF4 ORDERABLE S Final Result [facility] documented in this encounter Visit Diagnoses Not on filedocumented in this encounter Care Teams Staff Radiation Therapist Relationship Specialty Start Date End Date Elizabeth Dsouza MD [address] [place] [phone] PCP - General 02/13/12 documented as of this encounter
--- OUTSIDE RECORDS SUMMARY | 2024-03-25 15:26 | XMS_ITS | Encounter Summary ---
Author Organization [facility] Address [address] [place] [address] Care Team Providers Care Humane Officer Name Role Phone Elizabeth Dsouza MD Primary Care Provider Encounter Details Date Type Department Care Team (Late st Contact Info) Description 08/24/2017 Historical Results Only [facility] - Main [address] [address] Unknown, Provider, Social History Tobacco Use Types [...] 04/06/2024 9:[address] [facility] Endoscopy [address] [place] [phone] Angélica Hernandez MD [address] [phone] 05/17/2024 8:[address] [facility] CT Scan [address] [place] [address] 05/19/2024 13:[address] [facility] Endoscopy [address] [place], [place] [phone] Angélica Hernandez MD [address] [phone] 05/28/2024 14:15 EDT Nurse Only [facility] Cancer Treatment [place] 130 [place], [place] [address] 05/28/2024 14:30 EDT Office Visit [facility] Cancer Treatment [place] 130 [place], [place] [address] Kaiser Miller MD 111 [facility] 2 [place] [address] documented as of this encounter [...] & BLOOD GAS ORDERA BLES Final Result [facility] documented in this encounter Visit Diagnoses Not on filedocumented in this encounter Care Teams Humane Officer Relationship Specialty Start Date End Date Elizabeth Dsouza MD [address] [place] [phone] PCP - General 02/13/12 documented as of this encounter
--- OUTSIDE RECORDS SUMMARY | 2024-03-25 15:27 | XMS_ITS | Encounter Summary ---
Author Organization [facility] Address [address] [place] [address] Care Team Providers Care Change Of Address Clerk Name Role Phone Elizabeth Dsouza MD Primary Care Provider [phone] Reason for Visit * Reason Onset Date Comments Appointment Related 08/21/2017 Encounter Details Date Type Department Care Team (Late st Contact Info) Description 08/21/2017 Telephone [facility] General Surgery - [address] [phone] Elizabeth Pendleton MD [address] [place] [phone] Appointment Related Social History Tobacco Use [...] Info) Description 04/06/2024 9:30 EST Hospital Encounter [facility] Endoscopy [address] [place] [address] Angélica Hernandez MD [address] [place] [phone] 05/17/2024 8:00 EST Appointment [facility] CT Scan 130 [place] [address] 05/19/2024 13:30 EST Appointment [facility] Endoscopy 130 [place] [address] Angélica Hernandez MD [address] [place] [phone] 05/28/2024 14:15 EDT Nurse Only [facility] Life Cancer Treatment [address] [phone] 05/28/2024 14:30 EDT Office Visit [facility] Cancer Treatment [address] [address] Kaiser Miller MD 111 [facility] 2 [place] [phone] documented as of this encounter Visit Diagnoses Not on filedocumented in this encounter Care Teams Change Of Address Clerk Relationship Specialty Start Date End Date Elizabeth Dsouza MD 4 [facility] [place] [phone] PCP - General 02/13/12 documented as of this encounter
--- OUTSIDE RECORDS SUMMARY | 2024-03-25 15:27 | XMS_ITS | Encounter Summary ---
Author Organization [facility] Address [address] [place] [address] Care Team Providers Care Medical Pathology Teacher Name Role Phone Unavailable Primary Care Provider Unavailabl e Encounter Details Date Type Department Care Team (Latest Contact Info) Description 05/20/2002 8:39 EST - 05/20/2002 11:59 EST Hospital Encounter [facility] [address] [place] [address] Ferdinand Richey MD Unknown, Provider, Discharge Disposition: [...] Info) Description 04/06/2024 9:30 EST Hospital Encounter [facility] Endoscopy 130 [place], [place] [phone] Angélica Hernandez MD [address] [phone] 05/17/2024 8:00 EST Appointment [facility] CT Scan 130 [place], [place] [phone] 05/19/2024 13:30 EST Appointment [facility] Endoscopy 130 [place] [address] Angélica Hernandez MD [address] [phone] 05/28/2024 14:15 EDT Nurse Only [facility] Cancer [facility] 130 [place] [address] 05/28/2024 14:30 EDT Office Visit [facility] 130 [place] [address] Kaiser Miller MD 111 [facility] 2 [place] [address] documented as of this encounter [...] ? NAVIN CLIFFORD ? Accession #: ? [id number] : ? 1955 (Age: 46) ??F ?Collect [...] present. EDUCATIONAL NOTES/RECOMMENDATI ONS ? [facility] recommends following the 2001 Consensus Guidelines for the Management of Women with Cervical Cytological Abnormalities (RADHA,2002;287:212 0-9). Management algorithms have been distributed by [facility] and are available online at www.ASCCP.org. ? Document reviewed and electronically signed by: ? JONNY WADDELL MD [facility] ? Report Date: ??05/31/2002 15:45 End of Report [facility] 05/20/2002 05/24/2002 us Ferdinand Richey MD PATHOLOGY ORDERABLES Final Res ult [facility] [address] [place] [address] documented in this encounter Visit Diagnoses Not on filedocumented in this encounter
--- OUTSIDE RECORDS SUMMARY | 2024-03-25 15:27 | XMS_ITS | Encounter Summary ---
Author Organization [facility] Address [address] [place] [address] Care Team Providers Care Credit Director Name Role Phone Elizabeth Dong MD Primary Care Provider Encounter Details Date Type Department Care Team (Late st Contact Info) Description 12/16/2013 Results Only [facility] Laboratory Services - [facility] ([facility] [address] [place] [address] Elizabeth Dong MD 4 [place] [address] Social History Tobacco Use Types [...] Info) Description 04/06/2024 9:30 EST Hospital Encounter [facility] Endoscopy 130 [place], [place] [phone] Angélica Hernandez MD [address] [phone] 05/17/2024 8:00 EST Appointment [facility] CT Scan 130 [place] [address] 05/19/2024 13:30 EST Appointment [facility] Endoscopy 130 [place] [address] Angélica Hernandez MD [address] [phone] 05/28/2024 14:15 EDT Nurse Only [facility] Cancer [facility] 130 [place] [address] 05/28/2024 14:30 EDT Office Visit [facility] Cancer [facility] 130 [place] [address] Kaiser Miller MD [address] [facility] 2 [place] [address] documented as of this encounter [...] when reading/interpreti ng unformatted reports. Name: ? MING CLIFFORDA Joelle ? Accession #: ? [id number] ? : ? 1955 (Age: 58) ??F ?Collect Date: ? 12/16/2013 ? Location: ? [facility] ? Receive Date: ? 12/20/2013 ? Provider: ELIZABETH DONG MD Copy to: ? Final Report SPECIMEN ADEQUACY ? Satisfactory for Evaluation - transformation zone component present GENERAL CATEGORIZATION ? Epithelial Cell Abnormality INTERPRETATION ? Squamous Cell Abnormality - Low grade squamous intraepithelial lesion (LSIL). EDUCATIONAL NOTES/RECOMMENDATI ONS ? [facility] recommends following ASCCP's 2012 Updated Consensus Guidelines [...] 33,35,39,45,51,52, 56,58,59,66, and 68 is detected by ammunition assembly i laborer mediated amplification. High and intermediate risk HPV [...] the above diagnosis. End of Report [facility] 12/16/2013 12/20/2013 us Elizabeth Dong MD PATHOLOGY ORDERABLES Final Res ult Performing Organization Address City/State/[facility] Co de Phone Number [facility] [address] [place] [address] documented in this encounter Visit Diagnoses Not on filedocumented in this encounter Care Teams Credit Director Relationship Specialty Start Date End Date Elizabeth Dong MD 4 [place] [phone] PCP - General 02/13/12 documented as of this encounter
--- OUTSIDE RECORDS SUMMARY | 2024-03-25 15:27 | XMS_ITS | Encounter Summary ---
Author Organization [facility] Address [address] [place] [address] Care Team Providers Care Pyrotechnic Mixer Name Role Phone Elizabeth Dsouza MD Primary Care Provider [phone] Encounter Details Date Type Department Care Team (Late st Contact Info) Description 08/19/2017 Historical Results Only [facility] Radiology Results [address] [place] [address] Les Galvan MD 130 [place] [address] Social History Tobacco Use Types [...] Hospital Encounter [facility] Endoscopy [address] [place] [address] Angélica Hernandez MD [address] [phone] 05/17/2024 8:00 EST Appointment [facility] CT Scan [address] [place] [address] 05/19/2024 13:30 EST Appointment [facility] Endoscopy [address] [place] [address] Angélica Hernandez MD [address] [phone] 05/28/2024 14:15 EDT Nurse Only [facility] [address] [place], [place] [address] 05/28/2024 14:30 EDT Office Visit [facility] 130 [place], [place] [address] Kaiser Miller MD 111 [facility] 2 [place] [address] documented as of this [...] CC: ? Transcribed Date/Time: 08/19/2017 (1227) ? Manager Of Business Operations: ? Printed Date/Time: 09/04/2018 (4839) ? PAGE 1 ? Signed Report ? [...] Amilcar Funk MD CC: Transcribed Date/Time: 08/19/2017 (7043) Manager Of Business Operations: Printed Date/Time: 09/04/2018 (7600) PAGE 1 Signed Report us Les An MD IMG US ORDERABLES F inal Result * MAGNESIUM (08/19/2017 6:00 EDT) Pathologist [facility] Magnesium 2.00 1.7 - 2.8 mg/dL 08/19/2017 7:34 [facility] 08/19/2017 6:00 EDT 08/19/2017 6:52 EDT us Thi Asencio DO CHEMISTRY & BLOOD GAS ORDER BHARAT Final Result [facility] * (ABNORMAL) COMPREHENSIVE METABOLIC PANEL (CMP) (08/19/2017 6:00 EDT) Pathologist [facility] Albumin % 2.7(L) 3.4 - 4.9 g/dL 08/19/2017 7:34 [facility] ALKALINE PHOSPHATASE - [facility] 56 38 - 126 U/L 08/19/2017 7:34 [facility] BILIRUBIN TOTAL 1.6(H) 0.2 - 1.3 mg/dL 08/19/2017 7:34 [facility] BUN - [facility] 17 10 - 26 mg/dL 08/19/2017 7:34 [facility] CALCIUM - [facility] 8.3(L) 8.5 - 10.5 mg/dL 08/19/2017 7:34 [facility] Chloride 109 96 - 110 mmol/L 08/19/2017 7:34 [facility] CO2 Total 22 22 - 32 mEq/L 08/19/2017 7:34 [facility] CREATININE 0.90 0.52 - 1.04 mg/dL 08/19/2017 7:34 [facility] eGFR >60 08/19/2017 7:34 T [facility] Comment: Chronic renal impairment is defined as GFR <60 Multiply result by 1.210 for patients. eGFR calculated using the IDMS-traceable MDRD Study Equation. ??(effective 01/17/2014) Anion Gap 7 0 - 18 08/19/2017 7:34 T [facility] GLUCOSE - [facility] 130(H) 70 - 100 mg/dL 08/19/2017 7:34 [facility] Potassium 4.4 3.5 - 5.0 mEq/L 08/19/2017 7:34 [facility] Sodium 138 136 - 145 mEq/L 08/19/2017 7:34 [facility] TOTAL PROTEIN - [facility] 5.1(L) 6.2 - 8.2 gm/dL 08/19/2017 7:34 [facility] SGOT/AST - [facility] 25 14 - 36 U/L 08/19/2017 7:34 [facility] SGPT/ALT - [facility] 26 9 - 52 U/L 8 7:34 [facility] 08/19/2017 6:00 EDT 08/19/2017 6:52 EDT us Thi Asencio DO CHEMISTRY & BLOOD GAS ORDER BHARAT Final Result [facility] * (ABNORMAL) COMPLETE BLOOD COUNT AND DIFFERENTIAL (08/19/2017 6:00 EDT) ABSOLUTE NEUTROPHIL COUN - [facility] 7.39(H) 1.7 - 7.0 10e3/ul 08/19/2017 7:40 EDT [facility] BASOPHILS - [facility] 0.16 0.0 - 0.3 10e3/uL 08/19/2017 7:40 [facility] BANDS - [facility] 18(H) 0 - 3 % 08/19/2017 7:40 [facility] BASOPHIL - [facility] 2 0 - 2 % 8 7:40 [facility] CRENATED CELLS - [facility] 08/19/2017 7:40 [facility] EOS # - [facility] 0.08 0.05 - 0.5 10e3/uL 08/19/2017 7:40 [facility] EOSINOPHILS - CV 1 0 - 5 % 08/19/2017 7:40 [facility] HEMATOCRIT - [facility] 32.1(L) 34.0 - 47.0 % 08/19/2017 7:01 [facility] HEMOGLOBIN - [facility] 9.2(L) 11.2 - 15.7 g/dl 08/19/2017 7:01 [facility] LYMPH # - [facility] 0.50(L) 0.9 - 2.9 10e3/uL 08/19/2017 7:40 [facility] LYMPHOCYTES - [facility] 6(L) 20 - 40 % 08/19/2017 7:40 [facility] MEAN CORPUSCULAR HGB - [facility] 20.8(L) 26 - 34 pg 08/19/2017 7:01 [facility] MEAN CORPUSCULAR HGB CONC - [facility] 28.7(L) 31 - 36 g/dL 08/19/2017 7:01 [facility] MEAN CELL VOLUME - [facility] 72.5(L) 77 - 100 fl 08/19/2017 7:01 [facility] MICROCYTES - [facility] 2+ 08/19/2017 7:40 [facility] MONO # - [facility] 0.25(L) 0.3 - 0.9 10e3/uL 08/19/2017 7:40 [facility] MONOCYTE - [facility] 3 0 - 12 % 8 7:40 [facility] PLATELET COUNT 166 150 - 400 10e3/ul 08/19/2017 7:01 [facility] NEUTROPHILS - [facility] 70 40 - 80 % 08/19/2017 7:40 [facility] RED BLOOD COUNT - [facility] 4.43 3.8 - 5.2 10e6/ul 08/19/2017 7:01 EDT [facility] RED CELL DISTRI WIDTH - [facility] 18.2(H) 11.8 - 15.6 % 08/19/2017 7:01 EDT [facility] WHITE BLOOD COUNT - [facility] 8.4 3.5 - 10.5 10e3/ul 08/19/2017 7:01 EDT [facility] 08/19/2017 6:00 EDT 08/19/2017 6:52 EDT us Thi Asencio DO PACKAGES & DNA PROBE ORDERA BLES Final Result [facility] documented in this encounter Visit Diagnoses Not on filedocumented in this encounter Care Teams Pyrotechnic Mixer Relationship Specialty Start Date End Date Elizabeth Dsouza MD [address] [place] [address] PCP - General 02/13/12 documented as of this encounter
--- OUTSIDE RECORDS SUMMARY | 2024-03-25 15:27 | XMS_ITS | Encounter Summary ---
Author Organization [facility] Address [address] [place] [address] Care Team Providers Care Raise Miner Name Role Phone Elizabeth Dsouza MD Primary Care Provider [phone] Encounter Details Date Type Department Care Team (Late st Contact Info) Description 02/26/2017 Historical Results Only [facility] - Main [place] [address] [place], [place] [phone] Richar Alegre DDS [address] [place] [phone] Social History Tobacco Use Types Packs/Day Years [...] Info) Description 04/06/2024 9:30 EST Hospital Encounter [facility] Endoscopy [address] [place] [address] Angélica Hernandez MD [address] [phone] 05/17/2024 8:00 EST Appointment [facility] CT Scan [address] [place] [address] 05/19/2024 13:30 EST Appointment [facility] Endoscopy [address] [place] [address] Angélica Hernandez MD [address] [phone] 05/28/2024 14:15 EDT Nurse Only [facility] 130 [place] [address] 05/28/2024 14:30 EDT Office Visit [facility] 130 [place] [address] Kaiser Miller MD 111 [facility] 2 [place] [address] documented as of this encounter Procedures Procedure Name Priority Date/Time Associated Diagnosis Comments SURGICAL PATHOLOGY Routine 02/26/2017 documented in this encounter Results * SURGICAL PATHOLOGY (02/26/2017) 02/26/2017 02/28/2017 9:1 1 EST Narrative [facility] - 03/03/2017 16:38 EST ----- ------- Name: VIKRAM CLIFFORD ? : 57 ?Age/Sex: 63/F ?Unit#: [id number] ? Loc: LAB.OPX ? Status: REG REF ?? Reg Date: 02/26/17 ? Pt.Phone Number: ? ----- ------- Specimen: [id number] ? STATUS: SOUT ?Spec Date:02/26/17 ? Physician Copies: ?Richar Alegre DD Tissues: A ?? Oral mucosa, biopsy (LEFT LOWER JAW) ? CPT: 57230 ?? Units: ??1 ?FINAL DIAGNOSIS ? MUCOSA [...] above diagnosis. Test Performed by [facility], [address] [place] [id number] [employer]: Marina Phillip MD PHD ----- ------- Richar Alegre DDS PATHOLOGY ORDERABLES F inal Result [facility] documented in this encounter Visit Diagnoses Not on filedocumented in this encounter Care Teams Raise Miner Relationship Specialty Start Date End Date Elizabeth Dsouza MD [address] [place] [address] PCP - General 02/13/12 documented as of this encounter
--- OUTSIDE RECORDS SUMMARY | 2024-03-25 15:27 | XMS_ITS | Encounter Summary ---
Author Organization [facility] Address [address] [place] [address] Care Team Providers Care Sales Manager Name Role Phone Elizabeth Dsouza MD Primary Care Provider [phone] Encounter Details Date Type Department Care Team (Late st Contact Info) Description 08/20/2017 Historical Results Only [facility] - Main [place] [address] [place] [phone] Les Galvan MD [address] [place] [phone] Social History Tobacco Use Types Packs/Day [...] Encounter [facility] Endoscopy [address] [place] [phone] Angélica Hernandez MD [address] [phone] 05/17/2024 8:00 EST Appointment [facility] CT Scan [address] [place] [address] 05/19/2024 13:30 EST Appointment [facility] Endoscopy [address] [place] [address] Angélica Hernandez MD [address] [phone] 05/28/2024 14:15 EDT Nurse Only [facility] 130 [place], [place] [address] 05/28/2024 14:30 EDT Office Visit [facility] 130 [place] [address] Kaiser Miller MD 111 [facility] 2 [place] [address] documented as of this encounter [...] 1.7 - 2.8 mg/dL 08/20/2017 7:34 EDT [facility] 08/20/2017 6:30 EDT 08/20/2017 6:55 EDT Narrative [facility] - 08/20/2017 14:29 EDT AOT: 08/20/17 1348: CRP us Les An MD CHEMISTRY & BLOOD G ORDERABLES Final Result [facility] * (ABNORMAL) C REACTIVE PROTEIN (08/20/2017 6:30 EDT) [facility] C-Reactive Protein 372.6(H) <10.0 mg/L [facility]2017 [facility] 6[facility]30 EDT 08/20/2017 6:55 EDT [facility] - 08/20/2017 14:29 EDT AOT: 08/20/17 1348: CRP Les An MD CHEMISTRY & BLOOD G ORDERABLES Final Result Performing Organization Address [facility]/ZIP Co de Phone Number [facility] * (ABNORMAL) BASIC METABOLIC PANEL (BMP) (08/20/2017 6:30 EDT) [facility] BUN - [facility] 23 10 - 26 mg/dL 08/20/2017 7:34 [facility] CALCIUM - [facility] 8.2(L) 8.5 - 10.5 mg/dL 08/20/2017 7:34 [facility] Chloride 110 96 - 110 mmol/L 08/20/2017 7:34 [facility] CO2 Total 20(L) 22 - 32 mEq/L 08/20/2017 7:34 [facility] CREATININE 0.92 0.52 - 1.04 mg/dL 08/20/2017 7:34 [facility] eGFR >60 08/20/2017 7:34 [facility] Comment: Chronic renal impairment is defined as GFR <60 Multiply result by 1.210 for patients. eGFR calculated using the IDMS-traceable MDRD Study Equation. ??(effective 01/17/2014) Anion Gap 8 0 - 18 08/20/2017 7:34 [facility] GLUCOSE - [facility] 119(H) 70 - 100 mg/dL 08/20/2017 7:34 [facility] Potassium 3.7 3.5 - 5.0 mEq/L 08/20/2017 7:34 [facility] Sodium 138 136 - 145 mEq/L 08/20/2017 7:34 [facility] 08/20/2017 6:30 EDT 08/20/2017 6:55 EDT Narrative [facility] - 08/20/2017 14:29 EDT AOT: 08/20/17 1348: CRP us Les An MD CHEMISTRY & BLOOD G ORDERABLES Final Result [facility] * (ABNORMAL) COMPLETE BLOOD COUNT AND DIFFERENTIAL (08/20/2017 6:30 EDT) ABSOLUTE NEUTROPHIL COUN - [facility] 5.43 1.7 - 7.0 10e3/ul 08/20/2017 7:54 [facility] BANDS - [facility] 15(H) 0 - 3 % 08/20/2017 7:54 [facility] ELLIPTOCYTES - [facility] RARE 08/20/2017 7:54 [facility] EOS # - [facility] 0.05 0.05 - 0.5 10e3/uL 08/20/2017 7:54 [facility] EOSINOPHILS - [facility] 1 0 - 5 % 2017 7:54 [facility] HEMATOCRIT - [facility] 31.2(L) 34.0 - 47.0 % 08/20/2017 7:04 [facility] HEMOGLOBIN - [facility] 9.0(L) 11.2 - 15.7 g/dl 08/20/2017 7:04 [facility] HYPOCHROMASIA - [facility] 1+ 08/20/2017 7:54 [facility] LYMPH # - [facility] 0.35(L) 0.9 - 2.9 10e3/uL 08/20/2017 7:54 [facility] LYMPHOCYTES - [facility] 6(L) 20 - 40 % 2017 7:54 [facility] MEAN CORPUSCULAR HGB - [facility] 20.6(L) 26 - 34 pg 08/20/2017 7:04 [facility] MEAN CORPUSCULAR HGB CONC - [facility] 28.8(L) 31 - 36 g/dL 08/20/2017 7:04 [facility] MEAN CELL VOLUME - [facility] 71.6(L) 77 - 100 fl 08/20/2017 7:04 [facility] METAMYELOCYTE - [facility] 1 0 - 1 % 08/20/2017 7:54 [facility] PLATELET COUNT 145(L) 150 - 400 10e3/ul 08/20/2017 7:04 [facility] NEUTROPHILS - [facility] 77 40 - 80 % 2017 7:54 [facility] RED BLOOD COUNT - [facility] 4.36 3.8 - 5.2 10e6/ul 08/20/2017 7:04 [facility] RED CELL DISTRI WIDTH - [facility] 18.4(H) 11.8 - 15.6 % 08/20/2017 7:04 [facility] WHITE BLOOD COUNT - [facility] 5.9 3.5 - 10.5 10e3/ul 08/20/2017 7:04 [facility] 08/20/2017 6:30 EDT 08/20/2017 6:55 EDT Les An MD PACKAGES & DNA PROB E ORDERABLES Final Result [facility] documented in this encounter Visit Diagnoses Not on filedocumented in this encounter Care Teams Sales Manager Relationship Specialty Start Date End Date Elizabeth Dsouza MD [address] [place] [phone] PCP - General 02/13/12 documented as of this encounter
--- OUTSIDE RECORDS SUMMARY | 2024-03-25 15:27 | XMS_ITS | Encounter Summary ---
Author Organization [facility] Address [address] [place] [address] Care Team Providers Care Delivery Helper Name Role Phone Elizabeth Dsouza MD Primary Care Provider [phone] Encounter Details Date Type Department Care Team (Latest Contact Info) Description 08/18/2017 11:06 EDT - 08/18/2017 23:59 EDT Hospital Encounter [facility] [address] [place] [address] Unknown, Provider, Discharge Disposition: Home or Self [...] Code Departure Means Destination Home or Self Fpc documented in this encounter Plan of Treatment Upcoming Encounters Date Type Department Care Team (Late st Contact Info) Description 04/06/2024 9:30 EST Hospital Encounter [facility] Endoscopy [address] [place] [address] Angélica Hernandez MD [address] [phone] 05/17/2024 8:00 EST Appointment [facility] CT Scan [address] [place] [address] 05/19/2024 13:30 EST Appointment [facility] Endoscopy [address] [place] [address] Angélica Hernandez MD [address] [phone] 05/28/2024 14:15 EDT Nurse Only [facility] 130 [place], [place] [phone] 05/28/2024 14:30 EDT Office Visit [facility] 130 [place], [place] [phone] Kaiser Miller MD 111 [facility] 2 [place] [address] documented as of this encounter Visit Diagnoses Not on filedocumented in this encounter Care Teams Delivery Helper Relationship Specialty Start Date End Date Elizabeth Dsouza MD [address] [place] [phone] PCP - General 02/13/12 documented as of this encounter
--- OUTSIDE RECORDS SUMMARY | 2024-03-25 15:27 | XMS_ITS | Encounter Summary ---
Author Organization [facility] Address [address] [place] [address] Care Team Providers Care Woolen Tester Name Role Phone Elizabeth Dsouza MD Primary Care Provider [phone] Encounter Details Date Type Department Care Team (Latest Contact Info) Description 12/16/2013 11:47 EDT - 12/16/2013 23:59 EDT Hospital Encounter [address] [address] Unknown, Provider, Discharge Disposition: Home or Self [...] Encounter [facility] Endoscopy [address] [place] [address] Angélica Hernandez MD [address] [phone] 05/17/2024 8:00 EST Appointment [facility] CT Scan [address] [place], [place] [phone] 05/19/2024 13:30 EST Appointment [facility] Endoscopy [address] [place] [address] Angélica Hernandez MD [address] [phone] 05/28/2024 14:[address] [facility] 130 [place], [place] [phone] 05/28/2024 14:[address] [facility] [address] [place] [address] Kaiser Miller MD 111 [facility] 2 [place] [address] documented as of this encounter Visit Diagnoses Not on filedocumented in this encounter Care Teams Woolen Tester Relationship Specialty Start Date End Date Elizabeth Dsouza MD [address] [place] [phone] PCP - General 02/13/12 documented as of this encounter
--- OUTSIDE RECORDS SUMMARY | 2024-03-25 15:27 | XMS_ITS | Encounter Summary ---
Author Organization [facility] Address [address] [place] [address] Care Team Providers Care Tire Service Supervisor Name Role Phone Unknown, Provider MD Primary Care Provider Unava ilable Encounter Details Date Type Department Care Team (Late st Contact Info) Description 02/11/2012 Results Only [facility] Laboratory Services - [facility] ([facility] [address] [place] [address] Elizabeth Dong MD [address] [place] [phone] Social History Tobacco Use Types [...] [facility] Endoscopy [address] [place] [address] Angélica Hernandez MD [address] [phone] 05/17/2024 8:00 EST Appointment [facility] CT Scan [address] [place] [address] 05/19/2024 13:30 EST Appointment [facility] Endoscopy [address] [place] [address] Angélica Hernandez MD [address] [phone] 05/28/2024 14:[address] [facility] [address] [place] [address] 05/28/2024 14:30 EDT Office Visit [facility] 130 [place] [address] Kaiser Miller MD 111 [facility] 2 [place] [address] documented as of this encounter [...] reading/interpreting unformatted reports. Name: ? VIKRAM CLIFFORD Joelle ? Accession #: ? [id number] ? : ? 1955 (Age: 56) ??F [...] There is no evidence of malignancy. ??(Dr. Aiken)/[facility] Microscopic Description: ? The stratum corneum is thickened by orthohyperkeratosis with foci of parakeratosis and scale crust. ??The epidermis shows marked irregular hyperplasia with elongate and thickened rete ridges. ??The keratinocytes show mild reactive changes with an accentuated granular layer. ??The dermal papillae are widened by thick bundles of collagen oriented in a vertical array. There is mild chronic inflammation. ??(Dr. Aiken)/[facility] Document reviewed and electronically signed [...] Gross Description: ? Received in formalin labelled Pawel Clifforda and R forearm is an unoriented elliptical [...] and (A3) tips, reverse en face. (Louis Meraz)/[facility] End of Report [facility] 02/11/2012 02/12/2012 19: 42 EST us Elizabeth Dong MD PATHOLOGY ORDERABLES Final Res ult Performing Organization Address City/State/[facility] Co de Phone Number [facility] [address] [place] [address] documented in this encounter Visit Diagnoses Not on filedocumented in this encounter Care Teams Tire Service Supervisor Relationship Specialty Start Date End Date Unknown, Provider, PCP - General 02/12/12 02/12/12 documented as of this encounter
--- OUTSIDE RECORDS SUMMARY | 2024-03-25 15:27 | XMS_ITS | Encounter Summary ---
Author Organization [facility] Address [address] [place] [address] Care Team Providers Care Clinical Specialist Vascular Name Role Phone Elizabeth Dsouza MD Primary Care Provider [phone] Encounter Details Date Type Department Care Team (Late st Contact Info) Description 08/18/2017 Historical Results Only [facility] Radiology Results [address] [place], [place] [id number] Elizabeth Brennan MD [address] [place] [address] Social History Tobacco Use Types [...] Info) Description 04/06/2024 9:30 EST Hospital Encounter [facility] Endoscopy [address] [place] [address] Angélica Hernandez MD [address] [phone] 05/17/2024 8:00 EST Appointment [facility] CT Scan [address] [place] [address] 05/19/2024 13:30 EST Appointment [facility] Endoscopy [address] [place] [address] Angélica Hernandez MD [address] [phone] 05/28/2024 14:15 EDT Nurse Only [facility] [place] [address] [place] [address] 05/28/2024 14:30 EDT Office Visit [facility] [place] [address] [place] [address] Kaiser Miller MD 111 [facility] [address] [place] [address] documented as of this encounter Procedures Procedure Name Priority Date/Time Associated Diagnosis Comments TROPONIN I Routine 08/18/2017 22:47 EDT HEMOGLOBIN AND HEMATOCRIT - [facility] Routine 08/18/2017 19:00 EDT TROPONIN I Routine [...] URINE Routine 08/18/2017 8:59 EDT URINALYSIS/COMPLETE - [facility] Routine 08/18/2017 8:55 EDT BLOOD CULTURE - [facility] Routine 08/18/2017 8:39 EDT BLOOD CULTURE - [facility] Routine 08/18/2017 7:44 EDT SPEC W/O ORDERS - [facility] Routine 8 7:44 EDT LACTIC ACID SEPSIS REFLEX - [facility] Routine 08/18/2017 7:44 EDT TROPONIN I Routine [...] Comment: Result [facility] 08/18/17 6020 Result called by Interpretation comments: ??Cutoff for [...] ORDER BHARAT Final Result Performing Organization Address [facility] de Phone Number [facility] * (ABNORMAL) TROPONIN I (08/18/2017 19:00 EDT) Pathologist [facility] Troponin I (ng/mL) 1.930(HH) 0.000 - 0.034 ng/mL 08/18/2017 19:45 EDT [facility] Comment: Result called to SAMUEL HORN IN [facility] 08/18/171944 Result called by MARY JANE Interpretation comments: ??Cutoff for a positive troponin result is set at the 99th percentile of the upper reference limit. ??Elevated troponin must always be interpreted in the context of the clinical presentation. ?Serial troponin testing 3-6 hr from baseline is favored over relying on a single troponin level. 08/18/2017 19:0 0 EDT 08/18/2017 19:14 EDT us Thi Asencio DO CHEMISTRY & BLOOD GAS ORDER BHARAT Final Result Performing Organization Address [facility] de Phone Number [facility] * (ABNORMAL) HEMOGLOBIN AND HEMATOCRIT - [facility] (08/18/2017 19:00 EDT) Pathologist [facility] HEMATOCRIT - [facility] 34.3 34.0 - 47.0 % 08/18/2017 19:22 EDT [facility] HEMOGLOBIN - [facility] 9.9(L) 11.2 - 15.7 g/dl 08/18/2017 19:22 EDT [facility] 08/18/2017 19:0 0 EDT 08/18/2017 19:14 EDT us Thi Donaldson Luis M DO CHEMISTRY & BLOOD GAS ORDER BHARAT Final Result [facility] * TRANSTHORACIC ECHO (TTE) COMPLETE (08/18/2017 15:20 EDT) Anatomical Region Laterality Modality Ultrasound 08/18/2017 15:2 0 EDT Narrative 08/18/2017 15:20 EDT ?[facility] ?[address] [place] [address] ? [id number] ? E C H O C A R D I O G R A M ? R E P O R T NAME: HODGE,MELODIE ? : 57 ? LOCATION: DSCU ? TELEPHONE: [phone] ?MR#: [id number] ? *[facility]* *[facility]* [address] [place] [address] Date of study: 08/18/2017 Transthoracic Echocardiography M-mode, [...] ORDERING ? Thi Asencio REFERRING ?Thi Asencio WORLDWIDE CHIEF CREATIVE OFFICER ??Ladan Dunne PERFORMING ?? [facility] *PROCEDURE DATA* Procedure information: ??The patient was identified by two identifiers. This study was interpreted by [facility]. Pertinent images and digital data are archived for permanent storage and are available for subsequent review. No prior study was available for comparison. ??Study status: Routine. Transthoracic echocardiography. ??M-mode, complete 2D, complete spectral Doppler, and color Doppler. A Transthoracic Echocardiogram was ?[facility] ?[address] [place], [place] [address] ? [id number] ? E C H O C A R D I O G R A M ? R E P O R T NAME: MELODIE HODGE ? : 57 ? LOCATION: [facility] ? TELEPHONE: [phone] ?MR#: [id number] ? performed. Scanning was performed from the parasternal, apical, subcostal, and suprasternal notch acoustic windows. Images were obtained using a [facility] IE33 1 cardiac ultrasound machine. Image quality [...] 2.7 ?? cm ? 2.1 - 4.0 ?[facility] ?[facility] [address], [place] [address] ? [id number] ? E C H O C A R D I O G R A M ? R E P O R T NAME: MELODIE HODGE ? : 57 ? LOCATION: DSCU ? TELEPHONE: [phone] ?MR#: [id number] ? LV PW thickness, ED, PLAX ? [...] Hg ?? Right ventricle ? Value ?Reference ?[facility] ?[address] [place], [place] [address] ? [id number] ? E C H O C A R D I O G R A M ? R E P O R T NAME: MELODIE HODGE ? : 57 ? LOCATION: DSCU ? TELEPHONE: [phone] ?MR#: [id number] ? RV pressure, S, DP ?(H) ? 37 ?mm Hg ??<=30 Legend: (L) ??and ??(H) ??marilynn values outside specified reference range. I have personally reviewed the images and have reviewed and edited the reported findings. Electronically signed by Jemima Flynn 08/18/2017 20:55 Procedure Note Jemima Flynn MD - 01/03/2019 [facility] [address] [place], [place] [address] [id number] E C H O C A R D I O G R A M R E P O R T NAME: MELODIE HODGE : 57LOCATION: [facility] TELEPHONE: [phone] MR#: [id number] [id number] *[facility]* *[facility]* [address] [place] [address] Date of study: 08/18/2017 Transthoracic Echocardiography M-mode, [...] stop time: 03:44 PM. ORDERING Thi Asencio Beth WORLDWIDE CHIEF CREATIVE OFFICERLadan Modi PERFORMING [facility] *PROCEDURE DATA* Procedure information: The patient was identified by two identifiers. This study was interpreted by [facility]. Pertinent images and digital data are archived for permanent storage and are available for subsequent review. No prior study was available for comparison. Study status: Routine. Transthoracic echocardiography. M-mode, complete 2D, complete spectral Doppler, and color Doppler. A Transthoracic Echocardiogram was [facility] [address] [place] [address] [id number] E C H O C A R D I O G R A M R E P O R T NAME: MELODIE HODGE : 57LOCATION: [facility] TELEPHONE: [phone] MR#: [id number] performed. Scanning was performed from the parasternal, apical, subcostal, and suprasternal notch acoustic windows. Images were obtained using a [facility] IE33 1 cardiac ultrasound machine. Image quality [...] ES, PLAX 2.7 cm 2.1 - 4.0 [facility] [address] [place] [address] [id number] E C H O C A R D I O G R A M R E P O R T NAME: MELODIE HODGE : 57LOCATION: [facility] TELEPHONE: [phone] MR#: [id number] LV PW thickness, ED, PLAX 0.9 cm [...] 10 mm Hg Right ventricle Value Reference [facility] [address] [place], [place] [address] [id number] E C H O C A R D I O G R A M R E P O R T NAME: MELODIE HODGE : 57[facility] TELEPHONE: [phone] MR#: [id number] [id number] RV pressure, S, DP (H) 37 mm Hg <=30 Legend: (L) and (H) marilynn values outside specified reference range. I have personally reviewed the images and have reviewed and edited the reported findings. Electronically signed by Jemima Flynn 08/18/2017 20:55 us Provider Unknown MD CARDIAC ECHO ORDERABLES Teresa l Result * MAGNESIUM (08/18/2017 12:55 EDT) [facility] Magnesium 1.90 1.7 - 2.8 mg/dL 08/18/2017 13:17 EDT [facility] 08/18/2017 12:5 5 EDT 08/18/2017 13:01 EDT Thi Asencio DO CHEMISTRY & BLOOD GAS ORDER BHARAT Final Result Performing Organization Address [facility]/ZIP Co de Phone Number [facility] * (ABNORMAL) TROPONIN I (08/18/2017 12:55 EDT) [facility] Troponin I (ng/mL) 1.770(HH) 0.000 - 0.034 ng/mL 08/18/2017 13:32 EDT [facility] Comment: Result called to [facility] 08/18/17 1332 Result called by KL Interpretation [...] ORDER BHARAT Final Result Performing Organization Address [facility]/ZIP Co de Phone Number [facility] * LACTIC ACID (08/18/2017 12:55 EDT) [facility] LACTIC ACID - [facility] 1.6 <2.0 mmol/L 08/18/2017 13:17 EDT [facility] 08/18/2017 12:5 5 EDT 08/18/2017 13:01 EDT us Elizabeth Brennan MD CHEMISTRY & BLOOD GAS ORDERABLE S Final Result [facility] * (ABNORMAL) PROTIME (08/18/2017 12:55 EDT) Pathologist [facility] PROTHROMBIN TIME - [facility] 13.6(H) 9.5 - 13.4 SECONDS 08/18/2017 13:15 EDT [facility] 08/18/2017 12:5 5 EDT 08/18/2017 13:01 EDT us Thi Asencio DO HEMATOLOGY & PF4 ORDERABLES Final Result [facility] * PROTIME (08/18/2017 12:55 EDT) [facility] INR [facility] 1.2 0.9 - 1.2 08/18/2017 13:15 EDT [facility] Comment: Low intensity INR: 2.0-3.0 High intensity INR: Consult Coag Dept. 08/18/2017 12:5 5 EDT 08/18/2017 13:01 EDT us Thi Asencio DO HEMATOLOGY & PF4 ORDERABLES Final Result [facility] * (ABNORMAL) HEMOGLOBIN AND HEMATOCRIT - [facility] (08/18/2017 12:55 EDT) [facility] HEMATOCRIT [facility] 36.4 34.0 - 47.0 % 08/18/2017 13:10 EDT [facility] HEMOGLOBIN - [facility] 10.5(L) 11.2 - 15.7 g/dl 08/18/2017 13:10 EDT [facility] 08/18/2017 12:5 5 EDT 08/18/2017 13:01 EDT us Thi Donaldson Asencio DO CHEMISTRY & BLOOD GAS ORDER [...] CC: ? Transcribed Date/Time: 08/18/2017 (1011) ? Life Science Teacher: ? Printed Date/Time: 09/04/2018 (1662) ? PAGE 2 ? Signed Report ? [...] Addison MD CC: Transcribed Date/Time: 08/18/2017 (1011) Life Science Teacher: VATariq Printed Date/Time: 09/04/2018 (1335) PAGE 2 Signed Report us Elizabeth Brennan MD IMG CT ORDERABLES Final [...] CC: ? Transcribed Date/Time: 08/18/2017 (1007) ? Life Science Teacher: ? Printed Date/Time: 09/04/2018 (6797) ? PAGE 1 ? Signed Report ? [...] Funk MD CC: Transcribed Date/Time: 08/18/2017 (1007) Life Science Teacher: Printed Date/Time: 09/04/2018 (5039) PAGE 1 Signed Report Elizabeth Brennan MD IMG DIAGNOSTIC IMAGING ORDERABL ES Final Result * BACTERIAL CULTURE, URINE (08/18/2017 8:59 EDT) [facility]2017 [facility] No growth. 08/19/2017 11:35 [facility] 08/18/2017 8:59 EDT 08/18/2017 9:43 EDT Comment:VOID Elizabeth Brennan MD MICROBIOLOGY - GENERAL ORDERABL ES Final Result [facility] * URINALYSIS/COMPLETE - [facility] (08/18/2017 8:55 EDT) URINE APPEARANCE - [facility] Cloudy CLEAR 08/18/2017 9:12 [facility] URINE BACTERIA - [facility] MOD 08/18/2017 9:42 [facility] URINE BILIRUBIN - DIPSTICK - [facility] 1+ NEGATIVE 08/18/2017 9:12 [facility] Comment: Unable to confirm positive urine bilirubin. If clinical correlation is inconsistent, consider serum bilirubin. URINE BLOOD - [facility] 1+ NEG 08/18/2017 9:12 [facility] URINE COLOR - [facility] Yellow YELLOW 08/18/2017 9:12 [facility] URINE GLUCOSE - DIPSTICK - [facility] Negative NEGATIVE 08/18/2017 9:12 [facility] URINE KETONE - [facility] Negative NEGATIVE 08/18/2017 9:12 [facility] URINE LEUK ESTERASE - [facility] 2+ NEG 08/18/2017 9:12 [facility] URINE NITRITE - DIPSTICK - [facility] Negative NEG 08/18/2017 9:12 [facility] URINE PH - [facility] 6.0 4.0 - 8.0 8 9:12 [facility] URINE PROTEIN - DIPSTICK - [facility] 1+ NEG 08/18/2017 9:12 EDT [facility] URINE RBC - [facility] 3-6 rbc/hpf 08/19/19 18 9:42 EDT [facility] URCULTIF+? - [facility] Culture Ordered 08/18/2017 9:42 EDT [facility] URINE SPECIFIC GRAVITY - [facility] 1.025 1.001 - 1.035 08/18/2017 9:12 EDT [facility] URINE SQUAMOUS CELLS - [facility] MOD NEG #/hpf 08/18/2017 9:42 EDT [facility] URINE TRICHOMONAS - [facility] FEW 08/18/2017 9:42 EDT [facility] URINE UROBILINOGEN - DIPSTICK - [facility] 0.2 0.2 - 1.0 08/18/2017 9:12 EDT [facility] URINE WBC - [facility] 20-30 NEG wbc/hpf 018 9:42 EDT [facility] 08/18/2017 8:55 EDT 08/18/2017 9:07 EDT Narrative [facility] - 08/18/2017 9:42 EDT Does PT Have a Latex Allergy? UNKNOWN us Elizabeth Brennan MD CHEMISTRY & BLOOD GAS ORDERABLE S Final Result [facility] * BLOOD CULTURE - [facility] (08/18/2017 8:39 EDT) BLOOD CULTURE - [facility] 08/23/2017 9:05 EDT [facility] BLOOD CULTURE - [facility] NO GROWTH AT 5 DAYS 08/23/2017 9:05 EDT [facility] 08/18/2017 8:39 EDT 08/18/2017 8:42 EDT Comment:PERIP Narrative [facility] - 08/23/2017 9:05 EDT Does PT Have a Latex Allergy? UNKNOWN us Elizabeth Brennan MD CHEMISTRY & BLOOD GAS ORDERABLE S Edited Result - Final Performing Organization Address [facility]/ZIP Co de Phone Number [facility] * BLOOD CULTURE - [facility] (08/18/2017 7:44 EDT) BLOOD CULTURE - [facility] 08/23/2017 9:05 EDT [facility] BLOOD CULTURE - [facility] NO GROWTH AT 5 DAYS 08/23/2017 9:05 EDT [facility] 08/18/2017 7:44 EDT 08/18/2017 8:39 EDT Comment:PERIP Narrative [facility] - 08/23/2017 9:05 EDT Does PT Have a Latex Allergy? UNKNOWN us Elizabeth Brennan MD CHEMISTRY & BLOOD GAS ORDERABLE S Edited Result - Final Performing Organization Address [facility] Co de Phone Number [facility] * SPEC W/O ORDERS - [facility] (08/18/2017 7:44 EDT) Pathologist [facility] SPEC W/O ORDERS - [facility] SEE NOTE 08/18/2017 8:33 EDT [facility] Comment: ?Emergency Room Specimen(s) without Orders These specimens will be discarded in 8 hours: Gold, green, purple, blue, moody on ice, blood cultures x 1 08/18/2017 7:44 EDT 08/18/2017 8:32 EDT us Elizabeth Brennan MD CHEMISTRY & BLOOD GAS ORDERABLE S Final Result Performing Organization Address [facility]/ZIP Co de Phone Number [facility] * (ABNORMAL) MAGNESIUM (08/18/2017 7:44 EDT) [facility] Magnesium 1.30(L) 1.7 - 2.8 mg/dL 08/18/2017 [...] LAB 08/18/2017 7:44 EDT 08/18/2017 8:38 EDT [facility] - 08/18/2017 8:53 EDT Does PT Have a Latex Allergy? UNKNOWN Elizabeth Brennan MD CHEMISTRY & BLOOD GAS ORDERABLE S Final Result Performing Organization Address [facility] Co de Phone Number [facility] * (ABNORMAL) C REACTIVE PROTEIN (08/18/2017 7:44 EDT) C-Reactive Protein 68.0(H) <10.0 mg/L 08/18/2017 8:53 EDT [facility] 08/18/2017 7:44 EDT 08/18/2017 8:38 EDT [facility] - 08/18/2017 8:53 EDT Does PT Have a Latex Allergy? UNKNOWN Elizabeth Brennan MD CHEMISTRY & BLOOD GAS ORDERABLE S Final Result Performing Organization Address [facility]/ZIP Co de Phone Number [facility] * (ABNORMAL) COMPREHENSIVE METABOLIC PANEL (CMP) (08/18/2017 7:44 EDT) Albumin % 4.0 3.4 - 4.9 g/dL 08/18/2017 8:53 EDT [facility] ALKALINE PHOSPHATASE - [facility] 93 38 - 126 U/L 08/18/2017 8:53 EDT [facility] BILIRUBIN TOTAL 1.4(H) 0.2 - 1.3 mg/dL 08/18/2017 8:53 EDT [facility] BUN - [facility] 19 10 - 26 mg/dL 08/18/2017 8:53 [facility] CALCIUM - [facility] 9.5 8.5 - 10.5 mg/dL 08/18/2017 8:53 [facility] Chloride 104 96 - 110 mmol/L 08/18/2017 8:53 [facility] CO2 Total 17(L) 22 - 32 mEq/L 08/18/2017 8:53 [facility] CREATININE 0.86 0.52 - 1.04 mg/dL 08/18/2017 8:53 [facility] eGFR >60 08/18/2017 8:53 [facility] Comment: Chronic renal impairment is defined as GFR <60 Multiply result by 1.210 for patients. eGFR calculated using the IDMS-traceable MDRD Study Equation. ??(effective 01/17/2014) Anion Gap 17 0 - 18 08/18/2017 8:53 [facility] GLUCOSE - [facility] 196(H) 70 - 100 mg/dL 08/18/2017 8:53 [facility] Potassium 4.4 3.5 - 5.0 mEq/L 08/18/2017 8:53 [facility] Sodium 138 136 - 145 mEq/L 08/18/2017 8:53 [facility] TOTAL PROTEIN - [facility] 7.0 6.2 - 8.2 gm/dL 08/18/2017 8:53 [facility] SGOT/AST - [facility] 16 14 - 36 U/L 08/18/2017 8:53 [facility] SGPT/ALT - [facility] 27 9 - 52 U/L 8 8:53 [facility] 08/18/2017 7:44 EDT 08/18/2017 8:38 [facility] - 08/18/2017 8:53 EDT Does PT Have a Latex Allergy? UNKNOWN us Elizabeth Brennan MD CHEMISTRY & BLOOD GAS ORDERABLE S Final Result [facility] * (ABNORMAL) LACTIC ACID SEPSIS REFLEX - [facility] (08/18/2017 7:44 EDT) [facility] LACTIC ACID [facility] 2.8(HH) <2.0 mmol/L 08/18/2017 8:59 EDT [facility] [...] * (ABNORMAL) TROPONIN I (08/18/2017 7:44 EDT) [facility] Troponin I (ng/mL) 0.696(HH) 0.000 - 0.034 [...] BLOOD COUNT AND DIFFERENTIAL (08/18/2017 7:44 EDT) [facility] ABSOLUTE NEUTROPHIL COUN [facility] 9.08(H) 1.7 - 7.0 10e3/ul 08/18/2017 9:03 [facility] BANDS - [facility] 18(H) 0 - 3 % 08/18/2017 9:03 [facility] HEMATOCRIT - [facility] 41.2 34.0 - 47.0 % 08/18/2017 8:49 [facility] HEMOGLOBIN - [facility] 12.2 11.2 - 15.7 g/dl 08/18/2017 8:49 [facility] LYMPH # - [facility] 0.71(L) 0.9 - 2.9 10e3/uL 08/18/2017 9:03 [facility] LYMPHOCYTES - [facility] 7(L) 20 - 40 % 2017 9:03 [facility] MEAN CORPUSCULAR HGB - [facility] 21.2(L) 26 - 34 pg 08/18/2017 8:49 [facility] MEAN CORPUSCULAR HGB CONC - [facility] 29.6(L) 31 - 36 g/dL 08/18/2017 8:49 [facility] MEAN CELL VOLUME - [facility] 71.7(L) 77 - 100 fl 08/18/2017 8:49 [facility] METAMYELOCYTE - [facility] 1 0 - 1 % 08/18/2017 9:03 [facility] MONO # - [facility] 0.30 0.3 - 0.9 10e3/uL 08/18/2017 9:03 [facility] MONOCYTE - [facility] 3 0 - 12 % 8 9:03 [facility] PLATELET COUNT 302 150 - 400 10e3/ul 08/18/2017 8:49 [facility] NEUTROPHILS - [facility] 71 40 - 80 % 2017 9:03 [facility] POLYCHROMASIA - [facility] 1+ 08/18/2017 9:03 [facility] RED BLOOD COUNT - [facility] 5.75(H) 3.8 - 5.2 10e6/ul 08/18/2017 8:49 [facility] RED CELL DISTRI WIDTH - [facility] 18.1(H) 11.8 - 15.6 % 08/18/2017 8:49 EDT [facility] WHITE BLOOD COUNT - [facility] 10.2 3.5 - 10.5 10e3/ul 08/18/2017 8:49 [...] filedocumented in this encounter Care Teams Clinical Specialist Vascular Relationship Specialty Start Date End Date Elizabeth Dsouza MD [address] [place] [address] PCP - General 02/13/12 documented as of this encounter
--- OUTSIDE RECORDS SUMMARY | 2024-03-25 15:28 | XMS_ITS ---
Author Organization Unknown Address [address] [place] [phone] Phone Care Team Providers Care Sheet Metal Worker Maintenance Name Role Phone AMINAH Lai STOVE CLEANER Attending Unavailable LETITIA RANDALL Primary Unavailable Immunization [...] em Smoking History Current every day smoker 639852572 SNOMED CT Sex Female Assessment You had [...] Date Status Code Code System NIDDM active 55968760 SNOMED-CT CAD active 75534090 SNOMED-CT MYOCARDIAL INFARCT active 55171624 S NOMED-CT GERD active 682758506 SNOMED-CT DEPRESSION active 73468563 SNOMED-CT HIGH CHOLESTEROL 05/01/2023 resolved 45941893 SN OMED-CT STENTED ARTERY 05/01/2023 resolved 668389024 SNOM ED-CT COPD 05/01/2023 resolved 29148703 SNOMED-CT Allergies and Adverse Reactions Allergy Substance Reaction Severity Start Date Concern Status Code Code Syste m MORPHINE Vomiting (SNOMED-CT: 212091098) Moderate Active 7052 RxNorm LATEX Active 4571293 RxNorm BAND-AID BRAND ADHESIVE BANDAGES BREAK OUT (SNOMED-CT: null) Moderate Active 2124808 RxNorm Plan of Treatment MRI L SPINE [...]
--- OUTSIDE RECORDS SUMMARY | 2024-03-25 15:28 | XMS_ITS ---
Author Organization Unknown Address [address] [address] [phone] Phone Care Team Providers Care Tiger Machine Operator Name Role Phone POLLO TELLEZ DPM Attending [...] em Smoking History Current every day smoker [id number] SNOMED CT Sex Female Assessment You had [...] Date Status Code Code System NIDDM active 20968952 SNOMED-CT CAD active 21429651 SNOMED-CT MYOCARDIAL INFARCT active 87780630 S NOMED-CT GERD active 236731112 SNOMED-CT DEPRESSION active 42355960 SNOMED-CT HIGH CHOLESTEROL 05/01/2023 resolved 53038810 SN OMED-CT STENTED ARTERY 05/01/2023 resolved 585396566 SNOM ED-CT COPD 05/01/2023 resolved 95564868 SNOMED-CT Allergies and Adverse Reactions Allergy Substance Reaction Severity Start Date Concern Status Code Code Syste m MORPHINE Vomiting (SNOMED-CT: 073624569) Moderate Active 7052 RxNorm LATEX Active 1429382 RxNorm BAND-AID BRAND ADHESIVE BANDAGES BREAK OUT (SNOMED-CT: null) Moderate Active 7940625 RxNorm Plan of Treatment MRI L SPINE [...] Code Sys tem Idiopathic peripheral neuropathy 08/28/2020 90138383 SNOMED-CT Personal Care Team Section Performer Name Performer Role Active Date Inactive Da beto
--- OUTSIDE RECORDS SUMMARY | 2024-03-25 15:28 | XMS_ITS ---
Author Organization Unknown Address [address] [place] [address] [phone] Phone Care Team Providers Care Lead Software Test Engineer Name Role Phone AMINAH Lai FOOT SPECIALIST Attending Unavailable LETITIA RANDALL Primary Unavailable [...] em Smoking History Current every day smoker [id number] SNOMED CT Sex Female Assessment You had [...] Date Status Code Code System NIDDM active 03476524 SNOMED-CT CAD active 16138025 SNOMED-CT MYOCARDIAL INFARCT active 49747129 S NOMED-CT GERD active 165280631 SNOMED-CT DEPRESSION active 60918424 SNOMED-CT HIGH CHOLESTEROL 05/01/2023 resolved 92145839 SN OMED-CT STENTED ARTERY 05/01/2023 resolved 864691586 SNOM ED-CT COPD 05/01/2023 resolved 95081195 SNOMED-CT Allergies and Adverse Reactions Allergy Substance Reaction Severity Start Date Concern Status Code Code Syste m MORPHINE Vomiting (SNOMED-CT: 515735671) Moderate Active 7052 RxNorm LATEX Active 6446823 RxNorm BAND-AID BRAND ADHESIVE BANDAGES BREAK OUT (SNOMED-CT: null) Moderate Active 9710549 RxNorm Plan of Treatment MRI L SPINE [...]
--- OUTSIDE RECORDS SUMMARY | 2024-03-25 15:29 | XMS_ITS ---
Author Organization Unknown Address [address] [place] [address] [phone] Phone Care Team Providers Care Desktop Specialist Name Role Phone APOORVA Blanton MD [...] em Smoking History Current every day smoker 179332101 SNOMED CT Sex Female Vital Signs Vital Sign Value Unit Revelo Value Revelo Unit Date/Time Recent/Initial? Code Code System Body Mass Index 32.85 kg/m2 10/26/2020 08:41 Initial 35054 -5 LOINC Systolic Blood Pressure 157 mm[Hg] 11/01/2020 08:28 Initial 8480- 6 LOINC Diastolic Blood Pressure 74 mm[Hg] 11/01/2020 08:28 Initial 8462- 4 LOINC Body Surface Area 1.89 m2 10/26/2020 08:41 Initial 3140- 1 LOINC Height 157.480 0 cm 62.00 in 10/26/2020 08:41 Initial 8302- 2 LOINC O2 Saturation 96 % 2020 08:28 Initial 70339 -5 LOINC Pulse 77.0 /min 11/01/2020 08:28 Initial 8867- 4 LOINC Respiration 16 /min 11/02/19 08:28 Initial 9279- 1 LOINC Temperature 36.1 [place] 97.0 F 08/18/20 21 08:28 Initial 8310- 5 LOINC Weight 81.47 kg 179.60 lbs 10/26/2020 08:41 Initial 41821 -7 [facility] Assessment You had the following problems:NIDDMCADMYOCARDIAL [...] Vagina; w/Loop Electrode Biopsy(s), Cervix 11/01/2020 completed 82758 CPT Problems Problem Start Date Resolved Date Status Code Code System NIDDM active 60798933 SNOMED-CT CAD active 67899982 SNOMED-CT MYOCARDIAL INFARCT active 32339546 S NOMED-CT GERD active 352084283 SNOMED-CT DEPRESSION active 60964890 SNOMED-CT HIGH CHOLESTEROL 05/01/2023 resolved 23323230 SN OMED-CT STENTED ARTERY 05/01/2023 resolved 512960040 SNOM ED-CT COPD 05/01/2023 resolved 25489396 SNOMED-CT Allergies and Adverse Reactions Allergy Substance Reaction Severity Start Date Concern Status Code Code Batool jack MORPHINE Vomiting (SNOMED-CT: 225069782) Moderate Active 7052 RxNorm LATEX Active 0235043 RxNorm BAND-AID BRAND ADHESIVE BANDAGES BREAK OUT (SNOMED-CT: null) Moderate Active 8551453 RxNorm Plan of Treatment MRI L SPINE [...]
--- OUTSIDE RECORDS SUMMARY | 2024-03-25 15:29 | XMS_ITS ---
Author Organization Unknown Address [address] [place] [address] [phone] Phone Care Team Providers Care Lead Software Qa Engineer Name Role Phone APOORVA Blanton MD Attending [...] em Smoking History Current every day smoker 441405616 SNOMED CT Sex Female Assessment You had [...] Date Status Code Code System NIDDM active 50026209 SNOMED-CT CAD active 02857800 SNOMED-CT MYOCARDIAL INFARCT active 25579695 S NOMED-CT GERD active 288274295 SNOMED-CT DEPRESSION active 25516245 SNOMED-CT HIGH CHOLESTEROL 05/01/2023 resolved 13298769 SN OMED-CT STENTED ARTERY 05/01/2023 resolved 405889676 SNOM ED-CT COPD 05/01/2023 resolved 93617432 SNOMED-CT Allergies and Adverse Reactions Allergy Substance Reaction Severity Start Date Concern Status Code Code Syste m MORPHINE Vomiting (SNOMED-CT: 060024803) Moderate Active 7052 RxNorm LATEX Active 6199017 RxNorm BAND-AID BRAND ADHESIVE BANDAGES BREAK OUT (SNOMED-CT: null) Moderate Active 3638070 RxNorm Plan of Treatment MRI L SPINE [...]
--- OUTSIDE RECORDS SUMMARY | 2024-03-25 15:29 | XMS_ITS ---
Author Organization Unknown Address [address] [place] [address] [phone] Phone Care Team Providers Care Biochemical Development Engineer Name Role Phone APOORVA Blanton MD [...] em Smoking History Current every day smoker 257204350 SNOMED CT Sex Female Assessment You had [...] Date Status Code Code System NIDDM active 71988719 SNOMED-CT CAD active 20847886 SNOMED-CT MYOCARDIAL INFARCT active 52549257 S NOMED-CT GERD active 147525399 SNOMED-CT DEPRESSION active 56216175 SNOMED-CT HIGH CHOLESTEROL 05/01/2023 resolved 24490697 SN OMED-CT STENTED ARTERY 05/01/2023 resolved 803706293 SNOM ED-CT COPD 05/01/2023 resolved 33713011 SNOMED-CT Allergies and Adverse Reactions Allergy Substance Reaction Severity Start Date Concern Status Code Code Syste m MORPHINE Vomiting (SNOMED-CT: 360428317) Moderate Active 7052 RxNorm LATEX Active 2804919 RxNorm BAND-AID BRAND ADHESIVE BANDAGES BREAK OUT (SNOMED-CT: null) Moderate Active 2795266 RxNorm Plan of Treatment MRI L SPINE [...]
--- OUTSIDE RECORDS SUMMARY | 2024-03-25 15:29 | XMS_ITS ---
Author Organization Unknown Address [address] [place] [address] [phone] Phone Care Team Providers Care Cell Changer Name Role Phone APOORVA Blanton MD Attending [...] FLEX CULTURE - Collect Date/Time: 10/17/2020 12:31 [facility] ID: [id number] [address] [place] [address], [address] LOINC: 52075-1 Test Value Unit Reference Range Code Code System Flag COLLECTION MODE: CLEAN CATCH Color YELLOW yellow 5778-6 LOINC Appearance CLEAR clear 5767-9 LOINC Glucose urine NEGATIVE negative mg/dl 53341-7 LOINC Bilirubin NEGATIVE negative 5770-3 LOINC Ketones NEGATIVE negative mg/dl 2514-8 LOINC Spec gravity 1.025 1.003 - 1.030 5811-5 LOINC pH urine 6.0 5.0 - 7.0 2756-5 LOINC Protein 100 negative mg/dl 58142-7 LOINC A Urobilinogen 1.0 <or= 1 EU/dl 49034-4 LOINC A Nitrite. NEGATIVE negative 5802-4 LOINC Blood SMALL negative 5794-3 LOINC A Leukocytes. TRACE negative A WBCs. 0-5 0-5 / hpf 17908-8 LOINC RBCs none 0-5 / hpf Epith cells 0-5 0-5 / hpf 05590-3 LOINC Cell types squamous Crystals amorphous none Bacteria minimal none Mucus none none Casts 0-5 none /lpf 51521-0 LOINC Cast types fine gran Other CBC W/ DIFFERENTIAL - Collec t Date/Time: 10/17/2020 12:31 [facility] ID: [id number] [address] [place], [place], [address] LOINC: 46318-0 Test Value Unit Reference Range Code Code System Flag WBC 6.63 th/cmm L=5.00 H=10.00 6690-2 LOINC NEUT % 69.5 % L=40.0 H=80.0 LYMPH % 21.1 % L=10.0 H=50.0 MONO % 5.4 % L=2.0 H=12.0 91458-9 LOINC EOS % 3.0 % L=0.0 H=8.0 BASO % 0.8 % L=0.0 H=3.0 IG % 0.2 % L=0.0 H=1.1 2514-8 LOINC NRBC % 0.0 % L=0.0 H=0.0 01312-4 LOINC NEUT abs count 4.6 th/cmm L=1.6 H=8.4 751-8 LOINC LYMPH abs count 1.4 th/cmm L=1.5 H=4.0 731-0 LOINC L MONO abs count 0.4 th/cmm L=0.2 H=1.0 742-7 LOINC EOS abs count 0.2 th/cmm L=0.0 H=0.5 711-2 LOINC BASO abs count 0.1 th/cmm L=0.0 H=0.2 704-7 LOINC IG abs count 0.0 th/cmm L=0.0 H=0.1 33153-6 LOINC NRBC abs count 0.0 mil/cmm L=0.0 H=0.0 16182-1 LOINC RBC 4.18 mil/cmm L=3.90 H=5.40 789-8 [...] em Smoking History Current every day smoker 689986132 SNOMED CT Sex Female Assessment You had [...] Date Status Code Code System NIDDM active 52279186 SNOMED-CT CAD active 71425333 SNOMED-CT MYOCARDIAL INFARCT active 36280650 S NOMED-CT GERD active 572881043 SNOMED-CT DEPRESSION active 91056561 SNOMED-CT HIGH CHOLESTEROL 05/01/2023 resolved 24832148 SN OMED-CT STENTED ARTERY 05/01/2023 resolved 366249124 SNOM ED-CT COPD 05/01/2023 resolved 32159628 SNOMED-CT Allergies and Adverse Reactions Allergy Substance Reaction Severity Start Date Concern Status Code Code Syste m MORPHINE Vomiting (SNOMED-CT: 777542529) Moderate Active 7052 RxNorm LATEX Active 1004458 RxNorm BAND-AID BRAND ADHESIVE BANDAGES BREAK OUT (SNOMED-CT: null) Moderate Active 1637500 RxNorm Plan of Treatment MRI L SPINE [...]
--- OUTSIDE RECORDS SUMMARY | 2024-03-25 15:30 | XMS_ITS ---
Author Organization Unknown Address [address] [place] [address] [phone] Phone Care Team Providers Care Business Process Specialist Name Role Phone AMINAH Lai LOAD TALLIER Attending Unavailable LETITIA RANDALL Primary Unavailable Immunization [...] em Smoking History Current every day smoker [id number] SNOMED CT Sex Female Assessment You had [...] Date Status Code Code System NIDDM active 44106733 SNOMED-CT CAD active 11269187 SNOMED-CT MYOCARDIAL INFARCT active 92359398 S NOMED-CT GERD active 237987422 SNOMED-CT DEPRESSION active 34867734 SNOMED-CT HIGH CHOLESTEROL 05/01/2023 resolved 11372126 SN OMED-CT STENTED ARTERY 05/01/2023 resolved 397703291 SNOM ED-CT COPD 05/01/2023 resolved 62108480 SNOMED-CT Allergies and Adverse Reactions Allergy Substance Reaction Severity Start Date Concern Status Code Code Syste m MORPHINE Vomiting (SNOMED-CT: 414089178) Moderate Active 7052 RxNorm LATEX Active 9277411 RxNorm BAND-AID BRAND ADHESIVE BANDAGES BREAK OUT (SNOMED-CT: null) Moderate Active 5259454 RxNorm Plan of Treatment MRI L SPINE [...]
--- OUTSIDE RECORDS SUMMARY | 2024-03-25 15:30 | XMS_ITS ---
Author Organization Unknown Address [address] [place] [address] [phone] Phone Care Team Providers Care Hospital Laboratory Technician Name Role Phone AMINAH Lai SCRAPPER Attending Unavailable LETITIA RANDALL Primary Unavailable Immunization [...] em Smoking History Current every day smoker 647623220 SNOMED CT Sex Female Assessment You had [...] Date Status Code Code System NIDDM active 43174236 SNOMED-CT CAD active 78747905 SNOMED-CT MYOCARDIAL INFARCT active 97567098 S NOMED-CT GERD active 244108384 SNOMED-CT DEPRESSION active 18942777 SNOMED-CT HIGH CHOLESTEROL 05/01/2023 resolved 53120486 SN OMED-CT STENTED ARTERY 05/01/2023 resolved 876120498 SNOM ED-CT COPD 05/01/2023 resolved 31852494 SNOMED-CT Allergies and Adverse Reactions Allergy Substance Reaction Severity Start Date Concern Status Code Code Syste m MORPHINE Vomiting (SNOMED-CT: 509291857) Moderate Active 7052 RxNorm LATEX Active 1316599 RxNorm BAND-AID BRAND ADHESIVE BANDAGES BREAK OUT (SNOMED-CT: null) Moderate Active 0573828 RxNorm Plan of Treatment MRI L SPINE [...]
--- OUTSIDE RECORDS SUMMARY | 2024-03-25 15:30 | XMS_ITS ---
Author Organization Unknown Address [address] [place] [address] [phone] Phone Care Team Providers Care Co Founder And Director Name Role Phone APOORVA Blanton MD Attending [...] t Date/Time: 11/14/2020 11:20 [facility] ID: [id number] [address] [place] [address], [address] LOINC: 12480-7 Test Value Unit Reference Range Code Code System Flag WBC 7.55 th/cmm L=5.00 H=10.00 6690-2 LOINC NEUT % 74.1 % L=40.0 H=80.0 LYMPH % 14.4 % L=10.0 H=50.0 MONO % 8.5 % L=2.0 H=12.0 86835-0 LOINC EOS % 1.6 % L=0.0 H=8.0 BASO % 0.5 % L=0.0 H=3.0 IG % 0.9 % L=0.0 H=1.1 2514-8 LOINC NRBC % 0.0 % L=0.0 H=0.0 93750-0 LOINC NEUT abs count 5.6 th/cmm L=1.6 H=8.4 751-8 LOINC LYMPH abs count 1.1 th/cmm L=1.5 H=4.0 731-0 LOINC L MONO abs count 0.6 th/cmm L=0.2 H=1.0 742-7 LOINC EOS abs count 0.1 th/cmm L=0.0 H=0.5 711-2 LOINC BASO abs count 0.0 th/cmm L=0.0 H=0.2 704-7 LOINC IG abs count 0.1 th/cmm L=0.0 H=0.1 53161-2 LOINC NRBC abs count 0.0 mil/cmm L=0.0 H=0.0 79497-5 LOINC RBC 4.15 mil/cmm L=3.90 H=5.40 789-8 [...] em Smoking History Current every day smoker 611969415 SNOMED CT Sex Female Assessment You had [...] Date Status Code Code System NIDDM active 57673645 SNOMED-CT CAD active 99038577 SNOMED-CT MYOCARDIAL INFARCT active 77080237 S NOMED-CT GERD active 593157658 SNOMED-CT DEPRESSION active 07184035 SNOMED-CT HIGH CHOLESTEROL 05/01/2023 resolved 10304791 SN OMED-CT STENTED ARTERY 05/01/2023 resolved 930338733 SNOM ED-CT COPD 05/01/2023 resolved 46297942 SNOMED-CT Allergies and Adverse Reactions Allergy Substance Reaction Severity Start Date Concern Status Code Code Syste m MORPHINE Vomiting (SNOMED-CT: 532557393) Moderate Active 7052 RxNorm LATEX Active 9899440 RxNorm BAND-AID BRAND ADHESIVE BANDAGES BREAK OUT (SNOMED-CT: null) Moderate Active 5850963 RxNorm Plan of Treatment MRI L SPINE [...]
[2024-03-25 21:30] LABS: Abs Immature Grans 0.01 10^3/uL (0.0-0.06); Absolute Basophil Count 0.03 10^3/uL (0.0-0.2); Absolute Eosinophil Count 0.13 10^3/uL (0.0-0.7); Absolute Lymphocyte Count 1.12 10^3/uL (1.2-3.4); Absolute Monocyte Count 0.39 10^3/uL (0.1-0.8); Basophils % 0.5 %; Eosinophils % 2.3 %; HCT 28.5 % (36.0-46.0); HGB 8.2 g/dL (11.2-15.7); Immature Grans % 0.2 %; Lymphocytes % 19.7 %; MCH 23.4 pg (27.0-33.0); MCHC 28.8 % (32.0-36.0); MCV 81 fL (80-95); MPV 10.3 fL (8.0-11.0); Monocytes % 6.9 %; Neutrophils % 70.4 %; Platelet Count 233 10^3/uL (130-400); RBC 3.51 10^6/uL (3.93-5.22); RDW 19.5 % (11.7-14.6); RDW-SD 57.9 fL; WBC 5.68 10^3/uL (4.4-10.8)
[2024-03-25 21:48] LABS: ALT 8 U/L (14-59); AST 15 U/L (15-37); Albumin 3.4 g/dL (3.4-5.0); Alkaline Phosphatase 67 U/L (46-116); Anion Gap 8.3 mmol/L (3-11); BUN 14 mg/dL (7-18); Bilirubin, Total 0.91 mg/dL (0.2-1.0); CO2 24.7 mmol/L (21.0-32.0); CREATININE 1.7 mg/dL (0.55-1.02); Calcium 9.4 mg/dL (8.5-10.1); Chloride 106 mmol/L (98-107); Estimated GFR 32.66 (mL/min/1.73m2); Glucose 112 mg/dL (74-106); Potassium 3.7 mmol/L (3.5-5.1); Sodium 139 mmol/L (136-145); Total Protein 7.1 g/dL (6.4-8.2)
== END 2024-03-25 15:08 | disposition home or self-care (01) ==
LOC: NCHCN 15:07
PROVIDERS: PCP Family Medicine; Visit Provider Family Medicine
DX: H61.002 Unspecified perichondritis of left external ear (principal)
CPT/HCPCS: 80053; 85025; 87070

== ENCOUNTER 2024-05-07 11:49 | Outpatient (REF) | payer MEDICARE, SELFPAY ==
[2024-05-07 14:21] LABS: HCT 24.3 % (36.0-46.0); MCHC 27.6 % (32.0-36.0); MCV 77 fL (80-95); MPV 10.8 fL (8.0-11.0); Platelet Count 235 10^3/uL (130-400); RBC 3.17 10^6/uL (3.93-5.22); RDW 19.1 % (11.7-14.6); RDW-SD 53.3 fL; WBC 5.68 10^3/uL (4.4-10.8)
[2024-05-07 14:22] LABS: Iron 14 ug/dL (50-170); Total Iron Binding Capacity 366 ug/dL (250-450); Transferrin Sat 4 % (15-50)
[2024-05-07 14:58] LABS: HGB 6.7 g/dL (11.2-15.7)
[2024-05-07 14:59] LABS: MCH 21.1 pg (27.0-33.0)
== END 2024-05-07 11:50 | disposition home or self-care (01) ==
LOC: NCHCN 11:49
PROVIDERS: PCP Family Medicine; Visit Provider Family Medicine
DX: D50.9 Iron deficiency anemia, unspecified (principal)
CPT/HCPCS: 85027; 83540; 83550

== ENCOUNTER 2024-08-04 19:06 | Outpatient (REF) | payer MEDICARE, SELFPAY ==
[2024-08-04 21:23] LABS: HCT 27.9 % (36.0-46.0); HGB 8.8 g/dL (11.2-15.7); MCH 32.7 pg (27.0-33.0); MCHC 31.5 % (32.0-36.0); MCV 104 fL (80-95); MPV 10.6 fL (8.0-11.0); Platelet Count 182 10^3/uL (130-400); RBC 2.69 10^6/uL (3.93-5.22); RDW 16.1 % (11.7-14.6); RDW-SD 58.4 fL; WBC 4.63 10^3/uL (4.4-10.8)
== END 2024-08-04 19:07 | disposition home or self-care (01) ==
LOC: NCHCN 19:06
PROVIDERS: PCP Family Medicine; Visit Provider Family Medicine
DX: D64.9 Anemia, unspecified (principal)
CPT/HCPCS: 85027

== ENCOUNTER 2024-08-20 12:37 | Outpatient (REF) | payer MEDICARE, SELFPAY ==
[2024-08-20 14:32] LABS: HCT 32.6 % (36.0-46.0); MCH 31.3 pg (27.0-33.0); MCHC 30.7 % (32.0-36.0); MCV 102 fL (80-95); MPV 10.4 fL (8.0-11.0); Platelet Count 213 10^3/uL (130-400); RBC 3.19 10^6/uL (3.93-5.22); RDW 15.1 % (11.7-14.6); RDW-SD 56.4 fL; WBC 5.18 10^3/uL (4.4-10.8)
[2024-08-20 14:51] LABS: ALT 18 U/L (14-59); AST 21 U/L (15-37); Albumin 3.5 g/dL (3.4-5.0); Alkaline Phosphatase 71 U/L (46-116); Anion Gap 6.8 mmol/L (3-11); BUN 13 mg/dL (7-18); Bilirubin, Total 0.6 mg/dL (0.2-1.0); CO2 27.2 mmol/L (21.0-32.0); CREATININE 1.4 mg/dL (0.55-1.02); Calcium 9.2 mg/dL (8.5-10.1); Chloride 107 mmol/L (98-107); Estimated GFR 40.98 (mL/min/1.73m2); Glucose 108 mg/dL (74-106); Potassium 4.5 mmol/L (3.5-5.1); Sodium 141 mmol/L (136-145); Total Protein 7.1 g/dL (6.4-8.2)
== END 2024-08-20 12:38 | disposition home or self-care (01) ==
LOC: NCHCN 12:37
PROVIDERS: PCP Family Medicine; Visit Provider Family Medicine
DX: K92.2 Gastrointestinal hemorrhage, unspecified (principal); R63.4 Abnormal weight loss
CPT/HCPCS: 80053; 85027

== ENCOUNTER 2024-09-09 16:55 | Outpatient (REF) | payer MEDICARE, OTHER, SELFPAY ==
[2024-09-09 21:02] LABS: HCT 26.9 % (36.0-46.0); HGB 8.1 g/dL (11.2-15.7); MCH 28.7 pg (27.0-33.0); MCHC 30.1 % (32.0-36.0); MCV 95 fL (80-95); MPV 10.6 fL (8.0-11.0); Platelet Count 193 10^3/uL (130-400); RBC 2.82 10^6/uL (3.93-5.22); RDW-SD 56.6 fL; WBC 4.33 10^3/uL (4.4-10.8)
[2024-09-09 21:05] LABS: Anion Gap 5.6 mmol/L (3-11); BUN 14 mg/dL (7-18); CO2 26.4 mmol/L (21.0-32.0); CREATININE 1.5 mg/dL (0.55-1.02); Calcium 8.8 mg/dL (8.5-10.1); Chloride 108 mmol/L (98-107); Estimated GFR 37.72 (mL/min/1.73m2); Glucose 118 mg/dL (74-106); Potassium 3.7 mmol/L (3.5-5.1); Sodium 140 mmol/L (136-145)
== END 2024-09-09 16:56 | disposition home or self-care (01) ==
LOC: NCHCN 16:55
PROVIDERS: PCP Family Medicine; Visit Provider Family Medicine
DX: N18.32 Chronic kidney disease, stage 3b (principal); D53.9 Nutritional anemia, unspecified
CPT/HCPCS: 80048; 85027

== ENCOUNTER 2024-09-15 19:11 | Outpatient (REF) | payer MEDICARE, OTHER, SELFPAY ==
[2024-09-15 22:16] LABS: Iron 14 ug/dL (50-170); Total Iron Binding Capacity 364 ug/dL (250-450); Transferrin Sat 4 % (15-50)
== END 2024-09-15 19:12 | disposition home or self-care (01) ==
LOC: NCHCN 19:11
PROVIDERS: PCP Family Medicine; Visit Provider Family Medicine
DX: D50.9 Iron deficiency anemia, unspecified (principal)
CPT/HCPCS: 83540; 83550

== ENCOUNTER 2024-10-08 21:22 | Outpatient (REF) | payer MEDICARE, OTHER, SELFPAY ==
[2024-10-08 21:39] LABS: HCT 27.6 % (36.0-46.0); HGB 8.0 g/dL (11.2-15.7); MCH 28.3 pg (27.0-33.0); MCV 98 fL (80-95); MPV 11.0 fL (8.0-11.0); Platelet Count 179 10^3/uL (130-400); RBC 2.83 10^6/uL (3.93-5.22); RDW-SD 91.7 fL; WBC 5.20 10^3/uL (4.4-10.8)
[2024-10-08 21:44] LABS: Total Iron Binding Capacity 259 ug/dL (250-450)
[2024-10-08 21:57] LABS: Ferritin 651 ng/mL (8-252)
[2024-10-08 22:16] LABS: MCHC 29.0 % (32.0-36.0); RDW 26.2 % (11.7-14.6)
== END 2024-10-08 21:23 | disposition home or self-care (01) ==
LOC: NCHCN 21:22
PROVIDERS: PCP Family Medicine; Visit Provider Family Medicine
DX: D64.9 Anemia, unspecified (principal)
CPT/HCPCS: 85027; 82728; 83550

== ENCOUNTER 2024-12-07 16:02 | Outpatient (REF) | payer MEDICARE, OTHER, SELFPAY ==
[2024-12-08 00:09] LABS: ALT 70 U/L (14-59); AST 44 U/L (15-37); Albumin 2.9 g/dL (3.4-5.0); Alkaline Phosphatase 68 U/L (46-116); Anion Gap 15.4 mmol/L (3-11); BUN 24 mg/dL (7-18); Bilirubin, Total 0.5 mg/dL (0.2-1.0); CO2 22.6 mmol/L (21.0-32.0); Calcium 8.9 mg/dL (8.5-10.1); Chloride 102 mmol/L (98-107); Estimated GFR 14.65 (mL/min/1.73m2); Glucose 117 mg/dL (74-106); Sodium 140 mmol/L (136-145); Total Protein 6.9 g/dL (6.4-8.2)
[2024-12-08 00:31] LABS: Potassium 2.4 mmol/L (3.5-5.1)
== END 2024-12-07 16:03 | disposition home or self-care (01) ==
LOC: NCHCN 16:02
PROVIDERS: PCP Family Medicine; Visit Provider Family Medicine
DX: N18.32 Chronic kidney disease, stage 3b (principal); R10.9 Unspecified abdominal pain; R19.7 Diarrhea, unspecified
CPT/HCPCS: 80053

== ENCOUNTER 2024-12-08 17:06 | Outpatient (REF) | payer MEDICARE, OTHER, SELFPAY ==
[2024-12-08 15:31] LABS: ALT 69 U/L (14-59); AST 48 U/L (15-37); Albumin 3.0 g/dL (3.4-5.0); Alkaline Phosphatase 64 U/L (46-116); Anion Gap 13.5 mmol/L (3-11); BUN 23 mg/dL (7-18); Bilirubin, Total 0.5 mg/dL (0.2-1.0); CO2 23.5 mmol/L (21.0-32.0); Calcium 9.0 mg/dL (8.5-10.1); Chloride 102 mmol/L (98-107); Estimated GFR 15.20 (mL/min/1.73m2); Glucose 106 mg/dL (74-106); Sodium 139 mmol/L (136-145); Total Protein 6.8 g/dL (6.4-8.2)
[2024-12-08 15:42] LABS: Potassium 2.3 mmol/L (3.5-5.1)
== END 2024-12-08 17:07 | disposition home or self-care (01) ==
LOC: NCHCN 17:06
PROVIDERS: PCP Family Medicine; Visit Provider Physician Assistant
DX: R79.89 Other specified abnormal findings of blood chemistry (principal)
CPT/HCPCS: 80053

== ENCOUNTER 2024-12-16 20:44 | Outpatient (REF) | payer MEDICARE, OTHER, SELFPAY ==
[2024-12-16 21:30] LABS: HCT 27.7 % (36.0-46.0); HGB 8.6 g/dL (11.2-15.7); MCH 32.8 pg (27.0-33.0); MCHC 31.0 % (32.0-36.0); MPV 11.0 fL (8.0-11.0); Platelet Count 197 10^3/uL (130-400); RBC 2.62 10^6/uL (3.93-5.22); RDW 16.7 % (11.7-14.6); RDW-SD 63.0 fL; WBC 4.97 10^3/uL (4.4-10.8)
[2024-12-16 21:44] LABS: Anion Gap 8.4 mmol/L (3-11); BUN 13 mg/dL (7-18); CO2 24.6 mmol/L (21.0-32.0); Calcium 8.8 mg/dL (8.5-10.1); Chloride 108 mmol/L (98-107); Estimated GFR 28.41 (mL/min/1.73m2); Glucose 92 mg/dL (74-106); NT-proBNP 541 pg/mL (<300); Potassium 4.5 mmol/L (3.5-5.1); Sodium 141 mmol/L (136-145)
[2024-12-16 21:45] LABS: MCV 106 fL (80-95)
== END 2024-12-16 20:45 | disposition home or self-care (01) ==
LOC: NCHCN 20:44
PROVIDERS: PCP Family Medicine; Visit Provider Family Medicine
DX: R60.0 Localized edema (principal); N18.32 Chronic kidney disease, stage 3b; K92.2 Gastrointestinal hemorrhage, unspecified
CPT/HCPCS: 80048; 85027; 83880

== ENCOUNTER 2025-01-07 18:18 | Outpatient (REF) | payer MEDICARE, OTHER, SELFPAY ==
[2025-01-07 17:27] LABS: HCT 28.5 % (36.0-46.0); HGB 8.6 g/dL (11.2-15.7); MCH 31.0 pg (27.0-33.0); MCHC 30.2 % (32.0-36.0); MCV 103 fL (80-95); MPV 10.4 fL (8.0-11.0); Platelet Count 187 10^3/uL (130-400); RBC 2.77 10^6/uL (3.93-5.22); RDW 15.8 % (11.7-14.6); RDW-SD 58.1 fL; WBC 4.16 10^3/uL (4.4-10.8)
[2025-01-07 17:37] LABS: ALT 16 U/L (14-59); AST 15 U/L (15-37); Albumin 2.9 g/dL (3.4-5.0); Alkaline Phosphatase 80 U/L (46-116); Anion Gap 8.7 mmol/L (3-11); BUN 9 mg/dL (7-18); Bilirubin, Total 0.4 mg/dL (0.2-1.0); CO2 26.3 mmol/L (21.0-32.0); Calcium 8.7 mg/dL (8.5-10.1); Chloride 106 mmol/L (98-107); Estimated GFR 40.98 (mL/min/1.73m2); Glucose 103 mg/dL (74-106); Magnesium 2.0 mg/dL (1.8-2.4); NT-proBNP 233 pg/mL (<300); Potassium 4.1 mmol/L (3.5-5.1); Sodium 141 mmol/L (136-145); Total Protein 6.5 g/dL (6.4-8.2)
== END 2025-01-07 18:19 | disposition home or self-care (01) ==
LOC: NCHCN 18:18
PROVIDERS: PCP Family Medicine; Visit Provider Family Medicine
DX: I25.10 Atherosclerotic heart disease of native coronary artery without angina pectoris (principal); G25.81 Restless legs syndrome; D64.9 Anemia, unspecified
CPT/HCPCS: 80053; 85027; 83735; 83880

== ENCOUNTER 2025-02-04 21:23 | Outpatient (REF) | payer MEDICARE, OTHER, SELFPAY ==
[2025-02-04 21:56] LABS: HCT 30.0 % (36.0-46.0); HGB 8.9 g/dL (11.2-15.7); MCH 28.0 pg (27.0-33.0); MCHC 29.7 % (32.0-36.0); MCV 94 fL (80-95); MPV 10.5 fL (8.0-11.0); Platelet Count 241 10^3/uL (130-400); RBC 3.18 10^6/uL (3.93-5.22); RDW 17.4 % (11.7-14.6); RDW-SD 60.6 fL; WBC 7.49 10^3/uL (4.4-10.8)
[2025-02-04 22:11] LABS: Iron 22 ug/dL (50-170); Total Iron Binding Capacity 335 ug/dL (250-425)
== END 2025-02-04 21:24 | disposition home or self-care (01) ==
LOC: NCHCN 21:23
PROVIDERS: PCP Family Medicine; Visit Provider Family Medicine
DX: D64.9 Anemia, unspecified (principal)
CPT/HCPCS: 85027; 83540; 83550